=== PATIENT | male | born 1965 | race Two or more races ===

== ENCOUNTER 2023-01-10 17:36 | Emergency (ER) | payer SELFPAY ==
[~2023-01-10] VITALS: Ht 180.3 cm; Wt 112.0 kg
[2023-01-10 18:00] VITALS: PULSE 70; RESP 18; O2SAT 95
[2023-01-10] MEDS ORDERED: LORazepam 2MG/ML-1ML VIAL IV ONE (18:00)
[2023-01-10] MEDS ORDERED: SODIUM CHLORIDE 0.9% 1,000 ML IVB ONE (18:00)
[2023-01-10] MEDS ORDERED: ACETAMINOPHEN 325 MG TAB PO ONE (18:00)
[2023-01-10 18:14] LABS: Basophils # (auto) 0 10 ^3/uL (0-0.2); Basophils % (auto) 0.5 % (0.0-2.0); Eosinophils # (auto) 0.2 10 ^3/uL (0-0.8); Eosinophils % (auto) 1.9 % (0.0-7.0); Hematocrit 31.7 % (41.0-53.0); Hemoglobin 10.5 g/dL (13.5-17.5); Lymphocytes # (auto) 1.6 10 ^3/uL (0.4-5.4); Lymphocytes % (auto) 17.1 % (10.0-50.0); Mean Corpuscular Hemoglobin 31.6 pg (28.0-32.0); Mean Corpuscular Hgb Conc. 33.3 g/dL (32.0-36.0); Mean Corpuscular Volume 94.9 fL (80.0-100.0); Monocytes # (auto) 0.9 10 ^3/uL (0-1.3); Monocytes % (auto) 9.7 % (0.0-12.0); Neutrophils # (auto) 6.5 10 ^3/uL (1.6-8.6); Neutrophils % (auto) 70.8 % (37.0-80.0); Nucleated Red Blood Cells % 0.1 %; Red Blood Cells 3.34 10^6/uL (4.5-5.90); Red Cell Distribution Width 14.5 % (11.8-14.3); White Blood Cell 9.1 10^3/uL (4.4-10.8)
[2023-01-10 18:39] LABS: Blood Alcohol < 3.0 mg/dL (<10)
[2023-01-10 18:41] LABS: Alanine Aminotransferase 16 U/L (7-40); Albumin 4.3 g/dL (3.2-4.8); Alkaline Phosphatase 84 U/L (46-116); Anion Gap 15 (5-15); Aspartate Aminotransferase 20 U/L (13-40); BUN/Creatinine Ratio 5.9 (10.0-20.0); Blood Urea Nitrogen 54 mg/dL (9-23); Calcium 8.7 mg/dL (8.7-10.4); Carbon Dioxide 22 mmol/L (20-30); Chloride 100 mmol/L (98-107); Glucose 110 mg/dL (74-106); Potassium 4.1 mmol/L (3.5-5.1); Sodium 137 mmol/L (136-145)
[2023-01-10 18:42] LABS: Bilirubin, Total 0.3 mg/dL (0.2-1.0); Total Protein 6.7 g/dL (5.7-8.2)
[2023-01-10 19:02] LABS: INR 1.1 (0.9-1.15); Partial Thromboplastin Time 35.9 SEC (24.5-34.5); Prothrombin Time 11.5 sec (9.3-11.8)
[2023-01-10 19:46] VITALS: BP 169/67; PULSE 68; RESP 20; TEMP 98.7; O2SAT 96
[2023-01-10 20:04] VITALS: PULSE 69
[2023-01-10] MEDS ORDERED: HYDROmorphone HCL 2 MG/ML VL/or syr IV ONE (20:15)
[2023-01-10] MEDS ORDERED: HYDROcodone-ACET 5/325MG TAB PO ONE (20:30)
[2023-01-10] MEDS ORDERED: NAPR-746 PO (20:39)
[2023-01-10] MEDS ORDERED: CYCL-611 PO (20:39)
== END 2023-01-10 22:10 | disposition home or self-care (01) ==
LOC: ER 17:36 → EDBD 17:36 → ER 22:05
DX: S22.32XA Fracture of one rib, left side, initial encounter for closed fracture (principal); R56.9 Unspecified convulsions; M25.551 Pain in right hip; E11.22 Type 2 diabetes mellitus with diabetic chronic kidney disease; I12.0 Hypertensive chronic kidney disease with stage 5 chronic kidney disease or end stage renal disease; N18.6 End stage renal disease; I25.2 Old myocardial infarction; J44.9 Chronic obstructive pulmonary disease, unspecified; Z95.1 Presence of aortocoronary bypass graft; Z99.2 Dependence on renal dialysis; W01.0XXA Fall on same level from slipping, tripping and stumbling without subsequent striking against object, initial encounter; Y93.89 Activity, other specified; Y92.89 Other specified places as the place of occurrence of the external cause; Y99.8 Other external cause status
CPT/HCPCS: 36415; 70450; 71250; 73030; 73080; 80053; 80320; 83735; 83880; 84443; 84484; 85025; 85610; 85730; 93005

== ENCOUNTER 2023-09-21 06:50 | Day surgery (SDC) | payer BC, MEDICARE ==
[~2023-09-21] VITALS: Ht 185.4 cm; Wt 107.0 kg
[~2023-09-21 06:50] MED LIST: ALB2.5IS NEB; ALL100T PO; ASPI1TAB20 PO; ATOR40TA52 PO; BUDE1AER6 IN; CALC667C PO; CLOP75TA70 PO; DIA5T GT; GABA-1308 PO; HYDR-4298 PO; INSU1INJ19 SC; ISOS1TAB28 PO; METO200T42 PO; PANT40TA2 PO; RANO500T3 PO; SODI10PA PO; SODI5PAK PO
[2023-09-21] MEDS ORDERED: IODIXANOL 320MG/ML 100ML BTL IV ONE ×3 (07:16→09:44)
[2023-09-21] MEDS ORDERED: HEPARIN IN NS 1000Units/500mL 1,500 ML ONE (07:16)
[2023-09-21] MEDS ORDERED: VERAPAMIL 2.5MG/ML INJ 2ML VIAL IV ONE (09:12)
[2023-09-21] MEDS ORDERED: ANGIOMAX 250 MG VIAL IV ONE (09:12)
[2023-09-21] MEDS ORDERED: fentaNYL CITRATE 100 MCG/2 ML VL ONE (09:12)
[2023-09-21] MEDS ORDERED: HEPARIN SODIUM (PORCINE) 5000 UNITS/ML 1ML VIAL ONE (09:12)
[2023-09-21] MEDS ORDERED: MIDAZOLAM HCL 2MG/2ML 2ml VIAL (1mg/ml) ONE ×2 (09:12→09:41)
[2023-09-21] MEDS ORDERED: SODIUM CHL 0.9% 50 ML ONE (09:12)
[2023-09-21] MEDS ORDERED: LIDOCAINE 2%HCL (LOCAL ANESTH.) INJ 20ML MDV ONE (09:19)
[2023-09-21] MEDS ORDERED: hydrALAZINE HCL 20 MG/ML VL ONE (09:31)
[2023-09-21] MEDS ORDERED: CLOPIDOGREL BISULFATE 75 MG TAB ONE (10:09)
[2023-09-21] MEDS ORDERED: ASPirin 81 mg TAB ONE (10:09)
== END 2023-09-21 12:46 | disposition home or self-care (01) ==
LOC: CATH 06:50
PROVIDERS: ATTEND Internal Medicine
DX: R07.9 Chest pain, unspecified (principal); I25.110 Atherosclerotic heart disease of native coronary artery with unstable angina pectoris; I12.0 Hypertensive chronic kidney disease with stage 5 chronic kidney disease or end stage renal disease; N18.6 End stage renal disease; I35.1 Nonrheumatic aortic (valve) insufficiency; Z79.82 Long term (current) use of aspirin; Z79.899 Other long term (current) drug therapy; Z99.2 Dependence on renal dialysis; Z95.5 Presence of coronary angioplasty implant and graft; Z88.0 Allergy status to penicillin; Z88.7 Allergy status to serum and vaccine; Z83.3 Family history of diabetes mellitus; Z82.49 Family history of ischemic heart disease and other diseases of the circulatory system; Z84.89 Family history of other specified conditions
CPT/HCPCS: 92972; 93458; 93571; C1725; C1769; C1874; C1887; C1894; C9600; J0360; J0583; J1644; J2250; J3010; J7030; Q9967; 99152; 99153

== ENCOUNTER 2024-02-17 11:24 | Inpatient (IN) | payer BC, MEDICARE ==
[~2024-02-17] VITALS: Ht 188 cm; Wt 108.0 kg
[~2024-02-17 11:24] MED LIST changes: -HYDR-4298 PO; +HYDR100T10 PO
[2024-02-17] MEDS: METOPROLOL TARTRATE 1MG/1ML-5ML VIAL IV ONE (11:45)
[2024-02-17 12:05] VITALS: PULSE 65; RESP 97; O2SAT 97
[2024-02-17 12:11] LABS: Basophils # (auto) 0 10 ^3/uL (0-0.2); Basophils % (auto) 0.7 % (0.0-2.0); Eosinophils # (auto) 0.1 10 ^3/uL (0-0.8); Hematocrit 42.5 % (41.0-53.0); Hemoglobin 14.1 g/dL (13.5-17.5); Lymphocytes % (auto) 13.4 % (10.0-50.0); Mean Corpuscular Hemoglobin 32.7 pg (28.0-32.0); Mean Corpuscular Hgb Conc. 33.1 g/dL (32.0-36.0); Mean Corpuscular Volume 98.7 fL (80.0-100.0); Monocytes # (auto) 0.7 10 ^3/uL (0-1.3); Monocytes % (auto) 9.5 % (0.0-12.0); Neutrophils # (auto) 5.6 10 ^3/uL (1.6-8.6); Neutrophils % (auto) 74.4 % (37.0-80.0); Platelet Count (auto) 178 10^3/uL (140-450); Red Blood Cells 4.31 10^6/uL (4.5-5.90); Red Cell Distribution Width 17.2 % (11.8-14.3); White Blood Cell 7.5 10^3/uL (4.4-10.8)
--- NOTE | 2024-02-17 12:12 | DVH ---
CHEST RADIOGRAPH Indication: cp/palpitations, atrial fibrillation, SOB, weakness Technique: Single frontal view of the chest was obtained Comparison: XY CHEST PORTABLE on DOS: 08/13/23 FINDINGS: Lines and Tubes: None Lungs: No focal consolidation. Pleura: No effusion. No pneumothorax. Cardiomediastinal contours: Unremarkable Bones: No acute osseous abnormality. IMPRESSION: 1. No radiographic evidence acute cardiopulmonary disease. HS:Y
[2024-02-17 12:19] LABS: Alanine Aminotransferase 13 U/L (7-40); Albumin 4.6 g/dL (3.2-4.8); Alkaline Phosphatase 88 U/L (46-116); Anion Gap 14 (5-15); Aspartate Aminotransferase 15 U/L (13-40); Calcium 10.2 mg/dL (8.7-10.4); Carbon Dioxide 21 mmol/L (20-31); Glucose 92 mg/dL (74-106)
[2024-02-17 12:20] LABS: Bilirubin, Total 0.4 mg/dL (0.2-1.0); Total Protein 7.4 g/dL (5.7-8.2)
[2024-02-17 12:21] LABS: Chloride 98 mmol/L (98-107); Potassium 5.5 mmol/L (3.5-5.1); Sodium 133 mmol/L (136-145)
[2024-02-17 12:40] LABS: BUN/Creatinine Ratio 4.5 (10.0-20.0)
[2024-02-17 12:41] LABS: Blood Urea Nitrogen 30 mg/dL (9-23)
[2024-02-17 13:00] LABS: Urine Bacteria None Seen /hpf (None Seen)
--- NOTE | 2024-02-17 13:04 | ED.PDOC ---
HPI Comments HPI: Poor Historian. History obtained from patient and EMS. 58-year-old male presents to the emergency department for evaluation of one day history of left-sided chest pain nonradiating that was almost 10/10 at home. Patient has had shortness of breath following his chest pain. Patient has multiple cardiac problems including MIs and stents. Patient is on dialysis. Patient received aspirin and nitroglycerin prior to arrival which improved his pain almost a 2/10 on arrival. Vital signs are otherwise stable VITALS: Temp: 98.1F RR: 18 02 sat : 98% on room air HR: 68 BP: 160/82 PMH: hypertension, DC, hyperlipidemia, Gerd, DM, pseudoseizures, ESRD with dialysis on , , sat, PSH: 7x cardiac stents Social history: endorses tobacco use, denies ETOH use, denies drug use Medications: gabapentin, allopurinol, hydralazine, ASA, nitro, Lipitor, garg toprazole, Lasix, amlodipine, Ranexa, Allergies: penicillins, tetanus toxoid REVIEW OF SYSTEMS: CONSTITUTIONAL: Denies acute: fever, diaphoresis, chills, HEAD: Denies acute: headache, photophobia Eyes: Denies acute: Double vision, vision loss, eye pain, eye discharge. EARS: Denies acute: tinnitus, hearing loss, ear discharge, ear pain, THROAT: Denies acute: sore throat, swelling, difficulty swallowing , pain with swallowing, change in voice. NECK: Denies acute: neck pain, neck swelling, stiff neck. HEART: Denies acute : palpitations, LUNGS: Denies acute: wheezing, cough, hemoptysis ABDOMEN: Denies acute: abdominal pain, Nausea, Vomiting, diarrhea, melena , hematemesis, hematochezia SKIN: Denies acute: rash, redness, lesions, itchiness. EXTREMITIES: Denies acute: calf pain, numbness, tingling, weakness, denies pain in extremity. Denies acute: Low back pain. Neuro: Denies acute: focal neurological deficit, motor or sensory focal neurological deficit, tremors, seizure like activity, confusion, dizziness, change in mental status, loss of bowel or bladder function, cauda equina like symptoms. : Denies acute: dysuria, hematuria, flank pain, increase in urinary frequency. PSYCH: Denies acute: hallucination, suicidal ideation, homicidal ideation. PHYSICAL EXAM: General: no acute distress, awake and alert. Head: normocephalic, atraumatic. Neck: supple, trachea is midline, no swelling. Throat: Normal phonation. Eyes:, no erythema, no purulent discharge, no proptosis, no icterus. Heart: regular rate, regular rhythm, no significant murmur appreciated. Lungs: no apparent respiratory distress, Able to speak in full sentences. No wheezing, no rhonchi, no crackles. No stridors Clear to auscultation bilaterally. Abdomen: non tender to palpation, non distended, soft, no guarding, no rebound, + bowel sounds. Neuro: Awake, Alert, oriented to name, self, situation, follows commands GCS=15. Speech is normal. Skin: no petechia, no purpura, no cyanosis, non-pale, not jaundice. Lower extremities: --2/4 - Pitting edema no deformity, no focal swelling, no calf TTP. Makes eye contact. moves all four extremities. Face: no apparent facial droop. Chief Complaint: Chest Pain Time Seen by MD: 11:30 Primary Care Provider: CARDIO DR FISHER Reviewed Notes: Nurses Notes, Stock Buyer Notes, Medications, Allergies Allergies: Coded Allergies: Penicillins (Verified Allergy, Unknown, 09/19/23) Tetanus Toxoid (Verified Allergy, Unknown, 09/19/23) Home Meds Active Scripts Clopidogrel Bisulfate (CLOPIDOGREL) 75 Mg Tab, 75 MG PO DAILY for 30 Days, #30 TAB Prov:LEÓN COLLINS MD 08/16/23 Reported Medications Isosorbide Mononitrate (Isosorbide Mononitrate Er) 30 Mg Tab, 30 MG PO DAILY for CAD, MG 09/19/23 Insulin Glargine (Basaglar Kwikpen) 100 Unit/Ml Inj, 100 UNIT SC for DIABETES, INJ 09/19/23 Calcium Acetate (Phosphate Bin (Calcium Acetate) 667 Mg Cap, 667 MG PO TIDWM for DIALYSIS, MG 09/19/23 Sodium Zirconium Cyclosilicate (Lokelma) 5 Gm Hernandez, 5 GM PO DAILY for HYPERKALEMIA, PACK 09/19/23 Atorvastatin Calcium (ATORVASTATIN CALCIUM) 40 Mg Tab, 1 TAB PO DAILY for HIGH CHOLESTEROL, #30 TAB 5 Refills 09/19/23 Sqetkayfhf-Smiuiebkvfouhl-Ybuo (Breztri Aerosphere 160-9-4.8 Mcg/Act) 1 Aer Aer, 1 AER IN BID for COPD, AER 09/19/23 Albuterol Sulfate (Ventolin) 2.5 Mg/3 Ml Nb, 2.5 MG NEB Q4HP PRN for SHORTNESS OF BREATH, INH 09/19/23 Ranolazine (Ranolazine ER) 500 Mg Tab, 500 MG PO BID for CAD, TAB 09/19/23 Metoprolol Succinate (Metoprolol Succinate Er) 200 Mg Tab, 1 TAB PO DAILY for HTN 08/16/23 Diazepam (VALIUM TABLET) 5 Mg Tb, 5 MG GT PRN PRN for ANXIETY, TAB 08/14/23 Sodium Zirconium Cyclosilicate (Lokelma) 10 Gm Hernandez, 10 GM PO DAILY, PACK 08/14/23 Hydralazine Hcl (Hydralazine Hcl) 100 Mg Tab, 1 TAB PO TID, #90 TAB 5 Refills 08/14/23 Gabapentin (Gabapentin) 100 Mg Cap, 1 CAP PO TID, #90 CAP 2 Refills 08/14/23 Pantoprazole Sodium Sesquihydr (Protonix) 40 Mg Tab, 40 MG PO QAM, #30 TAB 08/14/23 Aspirin (Aspir-81) 81 Mg Tab, 1 TAB PO QAM, #30 TAB 5 Refills 08/14/23 Allopurinol (ZYLOPRIM TABLET) 100 Mg Tb, 1 TAB PO QAM, #30 TAB 5 Refills 08/14/23 Information Source: Patient, Emergency Med Personnel Mode of Arrival: EMS Past Medical History PAST MEDICAL HISTORY: CHF, ESRD Surgical History: Denies all surgeries Family History Family History: Reviewed,noncontributory to illness, No family hx of Cancer, No family hx of DM, No family hx of Heart [place], No family hx of HTN, No family hx ofKidney [place], No family hx of Liver [place], No family hx of Lung [place], No family hx of Stroke Social History Smoker: Non-Smoker Alcohol: Denies ETOH Use Drugs: Denies Drug Use Lives In: Home Was a procedure done? Was a procedure done?: No X-Ray, Labs, Meds, VS Vital Signs Date Time Temp Pulse Resp B/P (MAP) Pulse Ox O2 Delivery O2 Flow Rate FiO2 02/17/24 14:00 77 14 166/70 (102) 02/17/24 13:41 138/72 02/17/24 13:20 18 99 Room Air* 0 21 02/17/24 12:27 66 02/17/24 12:05 65 97 97 Room Air* 0 21 02/17/24 12:05 65 13 138/72 (94) 97 02/17/24 11:45 65 138/72 02/17/24 11:35 98.1 68 18 160/82 (108) 98 02/17/24 11:24 66 Lab Test 02/17/24 13:10 02/17/24 12:30 02/17/24 11:30 Range/Units Troponin I High Sensitivity 15 17 </=54 ng/L Triglycerides Level 98 < 150 mg/dL Cholesterol Level 159 < 200 mg/dL LDL Cholesterol 61 < 100 mg/dL HDL Cholesterol 77 H 40-59 mg/dL Urine Color Light-yellow Yellow Urine Clarity Clear Clear Urine pH 8.0 5.0-9.0 Urine Specific [place] 1.006 1.001-1.035 Urine Protein 3+ H Negative Urine Ketones Negative Negative Urine Blood Negative Negative /uL Urine Nitrite Negative Negative Urine Bilirubin Negative Negative Urine Urobilinogen Normal Negative mg/dL Urine Leukocyte Esterase Negative Negative /uL Urine RBC None seen 0 - 3 /hpf Urine WBC <1 0 - 3 /hpf Urine Squamous Epithelial Cells Few <5 /hpf Urine Bacteria None seen None Seen /hpf Urine Glucose 2+ H Normal mg/dL White Blood Count 7.5 4.4-10.8 10^3/uL Red Blood Count 4.31 L 4.5-5.90 10^6/uL Hemoglobin 14.1 13.5-17.5 g/dL Hematocrit 42.5 41.0-53.0 % Mean Corpuscular Volume 98.7 80.0-100.0 fL Mean Corpuscular Hemoglobin 32.7 H 28.0-32.0 pg Mean Corpuscular Hemoglobin Concent 33.1 32.0-36.0 g/dL Red Cell Distribution Width 17.2 H 11.8-14.3 % Platelet Count 178 140-450 10^3/uL Mean Platelet Volume 7.8 6.9-10.8 fL Neutrophils (%) (Auto) 74.4 37.0-80.0 % Lymphocytes (%) (Auto) 13.4 10.0-50.0 % Monocytes (%) (Auto) 9.5 0.0-12.0 % Eosinophils (%) (Auto) 2.0 0.0-7.0 % Basophils (%) (Auto) 0.7 0.0-2.0 % Neutrophils # (Auto) 5.6 1.6-8.6 10 ^3/uL Lymphocytes # (Auto) 1.0 0.4-5.4 10 ^3/uL Monocytes # (Auto) 0.7 0-1.3 10 ^3/uL Eosinophils # (Auto) 0.1 0-0.8 10 ^3/uL Basophils # (Auto) 0 0-0.2 10 ^3/uL Nucleated Red Blood Cells 0.0 % Sodium Level 133 L 136-145 mmol/L Potassium Level 5.5 H 3.5-5.1 mmol/L Chloride Level 98 98-107 mmol/L Carbon Dioxide Level 21 20-31 mmol/L Anion Gap 14 5-15 Blood Urea Nitrogen 30 H 9-23 mg/dL Creatinine 6.66 H 0.700-1.30 mg/dL Glomerular Filtration Rate Calc 9 >90 mL/min BUN/Creatinine Ratio 4.5 L 10.0-20.0 Serum Glucose 92 74-106 mg/dL Hemoglobin A1c 5.3 <5.7 % A1C Calcium Level 10.2 8.7-10.4 mg/dL Total Bilirubin 0.4 0.2-1.0 mg/dL Aspartate Amino Transferase (AST) 15 13-40 U/L Alanine Aminotransferase (ALT) 13 7-40 U/L Alkaline Phosphatase 88 46-116 U/L B-Type Natriuretic Peptide 610.56 0-100 pg/mL Total Protein 7.4 5.7-8.2 g/dL Albumin 4.6 3.2-4.8 g/dL Current Medications Medications (Trade) Dose Ordered Sig/Gerard Route Start Time Stop Time Status Last Admin Albuterol (Ventolin Medneb) 20 mg ONCE ONCE NEB 02/17/24 13:15 02/17/24 13:16 DC 02/17/24 13:20 Sodium Bicarbonate 50 ml ONCE ONCE IV 02/17/24 13:15 02/17/24 13:16 DC 02/17/24 13:41 Furosemide (Lasix Injection) 20 mg ONCE ONCE IV 02/17/24 13:15 02/17/24 13:16 DC 02/17/24 13:41 Calcium Gluconate/ Sodium Chloride 50 ml @ 120 mls/hr ONCE ONCE IV 02/17/24 13:15 02/17/24 13:39 DC 02/17/24 13:31 Zirconium Oxide (Lokelma) 10 gm ONCE ONCE PO 02/17/24 13:15 02/17/24 13:16 DC 02/17/24 13:42 Gabapentin (Neurontin Capsule) 100 mg TID PO 02/17/24 14:00 02/17/24 14:27 [place] [id number] Ph: [phone] DIAGNOSTIC IMAGING Diagnostic Imaging Report : [id number] Signed PATIENT: CARLOS KING ACCT: [id number] UNIT: [id number] : 1965 LOC: ER ROOM / BED: / AGE / SEX: 58 / M ADM STATUS: REG ER SERVICE 113 ORDERING PHYSICIAN: JEANNA KENNEDY DO PROCEDURE(s): CXRP - CHEST PORTABLE REASON: cp/palpitations, atrial fibrillation, SOB, weakness ORDER NUMBER(s): [id number], ACCESSION NUMBER(s): [id number] CHEST RADIOGRAPH Indication: cp/palpitations, atrial fibrillation, SOB, weakness Technique: Single frontal view of the chest was obtained Comparison: XY CHEST PORTABLE on DOS: 08/13/23 FINDINGS: Lines and Tubes: None Lungs: No focal consolidation. Pleura: No effusion. No pneumothorax. Cardiomediastinal contours: Unremarkable Bones: No acute osseous abnormality. IMPRESSION: 1. No radiographic evidence acute cardiopulmonary disease. HS:Y ATED BY: STEFFANY VELASCO DO DICTATED DATE/TIME: 02/17/241208 SIGNED BY: STEFFANY VELASCO DO SIGNED DATE/TIME: 02/17/241208 CC: Time of 1ST Reevaluation: 22:18 Reevaluation 1ST: Improved Patient Education/Counseling: Diagnosis, Treatment Family Education/Counseling: Diagnosis, Treatment Additional Information Patient presented with the above HPI.-- chest pain---workup was initiated. patient was found with the above mentioned diagnosis. the following medications were ordered: med Neb treatment, sodium zirconium, calcium gluconate, Lasix, sodium bicarb, albuterol, metoprolol, requested a tivanx for patient's pseudoseizures. While he was shaking he is still having a conversation with the. This is not new for him. the following tests were ordered: troponin 3, chest x-ray, UA, CMP, CBC, BNP, EKG Patient ED course and VS have been stabilized. Patient has been reassessed in the ED and remained in a stable condition. Patient has been observed in the ED adequate length of time to insure improvement/stability. Escalation of care considered: Consideration of escalation to observation or admission. patient was admitted to the medicine team for further evaluation and treatment of their presentation. All the reports of any imaging studies that were ordered by myself were reviewed by myself. Departure 1 Departure Time of Disposition: 13:02 Impression: Primary Impression: Chest pain Disposition: ADMITTED INPATIENT Admit to: Tele Condition: Guarded Discharged With: Self Heart Score Heart Score: Heart Score Response (Comments) Value History Moderate Suspicious 1 Age 45-64 1 Risk Factors >3 or Hx ASHD 2 Troponin Normal limit 0 Total 4 I personally scribed for JEANNA KENNEDY DO ([email or web address]) on 02/17/24 at 13:03. Electronically submitted by Ni Sandhu ([email or web address]). I personally scribed for JEANNA KENNEDY DO ([email or web address]) on 02/17/24 at 15:07. Thu ctronically submitted by Ni Sandhu ([email or web address]). I personally scribed for JEANNA KENNEDY DO ([email or web address]) on 02/17/24 at 22:15. Electronically submitted by Ni Sandhu ([email or web address]). JEANNA KENNEDY DO Feb 17, 2024 13:03
[2024-02-17] MEDS: ALBUTEROL SULF 2.5 MG/0.5ML(0.5%) NEB SOLN NEB ONE (13:20)
[2024-02-17] MEDS: CALCIUM GLUC 1,000mg/50ml-NS 50 ML IV ONE (13:31)
[2024-02-17 13:34] LABS: Urine Blood Negative /uL (Negative); Urine Clarity Clear (Clear); Urine Color Light-Yellow (Yellow); Urine Protein, UAD 3+ (Negative); Urine Specific Gravity 1.006 (1.001-1.035); Urine Urobilinogen Normal (Negative); Urine WBC <1 /hpf (0 - 3)
[2024-02-17] MEDS: FUROSEMIDE 20 MG/2 ML VIAL IV ONE (13:41)
[2024-02-17] MEDS: SODIUM BICARB 8.4% 50Meq/50ml SYR INJ IV ONE (13:41)
[2024-02-17] MEDS: SODIUM ZIRCONIUM CYCL 10 GM PAK PO ONE (13:42)
[2024-02-17] MEDS ORDERED: MORPHINE SULFATE INJ 2 MG/ml SYRG IV PRN (14:15)
[2024-02-17] MEDS ORDERED: MORPHINE SULFATE 4 MG/ML SYR/VIAL IV PRN (14:15)
[2024-02-17] MEDS ORDERED: DEXTROSE (50%) 50ML SYRG IV PRN (14:15)
[2024-02-17] MEDS ORDERED: NITROGLYCERIN 0.4 MG SL TAB SL PRN (14:15)
[2024-02-17] MEDS ORDERED: ONDANSETRON HCL 4 MG/2 ML VIAL IV PRN (14:15)
[2024-02-17] MEDS: LORazepam 2MG/ML-1ML VIAL IV ONE ×2 (14:24→20:34)
[2024-02-17] MEDS: LORazepam 2MG/ML-1ML VIAL ONE ×2 (14:25→19:57)
[2024-02-17] MEDS: GABAPENTIN 100 MG CAP PO SCH (14:27)
[2024-02-17 14:46] LABS: Triglycerides 98 mg/dL (< 150)
[2024-02-17 14:47] LABS: LDL Cholesterol 61 mg/dL (< 100)
[2024-02-17 14:48] LABS: Cholesterol 159 mg/dL (< 200)
[2024-02-17 14:58] LABS: HDL Cholesterol 77 mg/dL (40-59)
[2024-02-17 15:01] VITALS: BP 166/70; PULSE 65; RESP 18; O2SAT 99
--- NOTE | 2024-02-17 16:07 | DVHHP2 ---
History of Present Illness Reason for Visit: Chest pain History of Present Illness Poor Historian. History obtained from patient and EMS. 58-year-old male presents to the emergency department for evaluation of one day history of left-sided chest pain nonradiating that was almost 10/10 at home. Patient has had shortness of breath following his chest pain. Patient has multiple cardiac problems including MIs and stents. Patient is on dialysis. Patient received aspirin and nitroglycerin prior to arrival which improved his pain almost a 2/10 on arrival. Vital signs are otherwise stable. His is at bedside and tells me that he also has pseudoseizures. He has been having pseudoseizures on and off for last few days. Patient having some chest discomfort for few days. Past Medical History hypertension, UT, hyperlipidemia, Gerd, DM, pseudoseizures, ESRD with dialysis on , , tue, Past Surgical History cardiac stents Family History: Hyperlipidemia, Hypertension Smoke: No ALCOHOL: occassional Lives: with Family Review of Systems Review of Systems No complaints of chest pain or shortness for breath at present. No fevers chills or sweats. Other review of systems reviewed normal Allergies: Coded Allergies: Penicillins (Verified Allergy, Unknown, 09/19/23) Tetanus Toxoid (Verified Allergy, Unknown, 09/19/23) Medications Current Medications Medications Dose Ordered Sig/Gerard Route Start Time Stop Time Status Last Admin Dose Admin Allopurinol 100 mg QAM PO 02/18/24 07:00 Aspirin 81 mg QAM PO 02/18/24 07:00 Calcium Acetate 667 mg TIDWM PO 02/17/24 18:00 Clopidogrel Bisulfate 75 mg DAILY PO 02/18/24 10:00 Gabapentin 100 mg TID PO 02/17/24 14:00 02/17/24 14:27 100 MG Pantoprazole Sodium 40 mg QAM PO 02/18/24 07:00 Ranolazine 500 mg BID PO 02/17/24 22:00 Zirconium Oxide 5 gm DAILY PO 02/18/24 10:00 Albuterol 2.5 mg Q4HP PRN NEB 02/17/24 14:45 Atorvastatin Calcium 40 mg HS PO 02/17/24 22:00 Isosorbide Mononitrate 60 mg DAILY PO 02/18/24 10:00 Nitroglycerin 0.4 mg Q5MINP PRN SL 02/17/24 14:15 Morphine Sulfate 2 mg Q30M PRN IV 02/17/24 14:15 Enoxaparin Sodium 30 mg DAILY SC 02/18/24 10:00 Morphine Sulfate 3 mg Q3HPRN PRN IV 02/17/24 14:15 Morphine Sulfate 2 mg Q4HPRN PRN IV 02/17/24 14:15 Ondansetron HCl 4 mg Q4HPRN PRN IV 02/17/24 14:15 Diagnostic Test (Pha) 1 strip ACHS 02/17/24 17:00 Insulin Human Regular HS SC 02/17/24 22:00 Insulin Human Regular AC SC 02/17/24 17:00 Dextrose 50 ml UD PRN IV 02/17/24 14:15 Insulin Glargine 15 units HS SC 02/17/24 22:00 Exam Vital Signs Vital Signs Date Time Temp Pulse Resp B/P (MAP) Pulse Ox O2 Delivery O2 Flow Rate FiO2 02/17/24 15:01 65 18 166/70 99 0.0 02/17/24 13:20 Room Air* 21 02/17/24 11:35 98.1 Exam Comfortable in bed. at bedside Alert awake oriented x2. HEENT neck supple no JVD pupils equal round react to light. Heart regular rate and rhythm S1 plus S2 without murmurs. Lungs fair air movement chest tube will expansion no rales wheezes. Abdomen is soft nontender nondistended positive bowel sounds. Extremities no edema positive distal pedal pulses. Neurologically no focal deficits noted Labs/Xrays Labs Test 02/17/24 14:40 02/17/24 13:10 02/17/24 12:30 02/17/24 11:30 Range/Units Troponin I High Sensitivity 15 </=54 ng/L Triglycerides Level 98 < 150 mg/dL Cholesterol Level 159 < 200 mg/dL LDL Cholesterol 61 < 100 mg/dL HDL Cholesterol 77 H 40-59 mg/dL Urine Color Light-yellow Yellow Urine Clarity Clear Clear Urine pH 8.0 5.0-9.0 Urine Specific [place] 1.006 1.001-1.035 Urine Protein 3+ H Negative Urine Ketones Negative Negative Urine Blood Negative Negative /uL Urine Nitrite Negative Negative Urine Bilirubin Negative Negative Urine Urobilinogen Normal Negative mg/dL Urine Leukocyte Esterase Negative Negative /uL Urine RBC None seen 0 - 3 /hpf Urine WBC <1 0 - 3 /hpf Urine Squamous Epithelial Cells Few <5 /hpf Urine Bacteria None seen None Seen /hpf Urine Glucose 2+ H Normal mg/dL White Blood Count 7.5 4.4-10.8 10^3/uL Red Blood Count 4.31 L 4.5-5.90 10^6/uL Hemoglobin 14.1 13.5-17.5 g/dL Hematocrit 42.5 41.0-53.0 % Mean Corpuscular Volume 98.7 80.0-100.0 fL Mean Corpuscular Hemoglobin 32.7 H 28.0-32.0 pg Mean Corpuscular Hemoglobin Concent 33.1 32.0-36.0 g/dL Red Cell Distribution Width 17.2 H 11.8-14.3 % Platelet Count 178 140-450 10^3/uL Mean Platelet Volume 7.8 6.9-10.8 fL Neutrophils (%) (Auto) 74.4 37.0-80.0 % Lymphocytes (%) (Auto) 13.4 10.0-50.0 % Monocytes (%) (Auto) 9.5 0.0-12.0 % Eosinophils (%) (Auto) 2.0 0.0-7.0 % Basophils (%) (Auto) 0.7 0.0-2.0 % Neutrophils # (Auto) 5.6 1.6-8.6 10 ^3/uL Lymphocytes # (Auto) 1.0 0.4-5.4 10 ^3/uL Monocytes # (Auto) 0.7 0-1.3 10 ^3/uL Eosinophils # (Auto) 0.1 0-0.8 10 ^3/uL Basophils # (Auto) 0 0-0.2 10 ^3/uL Nucleated Red Blood Cells 0.0 % Sodium Level 133 L 136-145 mmol/L Potassium Level 5.5 H 3.5-5.1 mmol/L Chloride Level 98 98-107 mmol/L Carbon Dioxide Level 21 20-31 mmol/L Anion Gap 14 5-15 Blood Urea Nitrogen 30 H 9-23 mg/dL Creatinine 6.66 H 0.700-1.30 mg/dL Glomerular Filtration Rate Calc 9 >90 mL/min BUN/Creatinine Ratio 4.5 L 10.0-20.0 Serum Glucose 92 74-106 mg/dL Hemoglobin A1c 5.3 <5.7 % A1C Calcium Level 10.2 8.7-10.4 mg/dL Total Bilirubin 0.4 0.2-1.0 mg/dL Aspartate Amino Transferase (AST) 15 13-40 U/L Alanine Aminotransferase (ALT) 13 7-40 U/L Alkaline Phosphatase 88 46-116 U/L B-Type Natriuretic Peptide 610.56 0-100 pg/mL Total Protein 7.4 5.7-8.2 g/dL Albumin 4.6 3.2-4.8 g/dL Assessment/Plan Assessment/Plan Chest pain, ESRD on hemodialysis Given his risk factors with the multiple stents who observed overnight on telemetry floor. 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 Serial troponins. Resume his home medications. Please nephrology consultation for dialysis. Otherwise continue rest of supportive care and treatment. Resume home medications including glaucoma. Further clinical management per clinical course and recommendations from the screen printing press operator. Discussed with the patient's/ regarding care plan at bedside. Plan discussed with: Patient, Spouse My Orders Orders - ENDY CORTÉS MD Procedure Category Date Status Time Allopurinol Tablet PHA 02/18/24 In Process (Zyloprim Tablet) 07:00 Aspirin Enteric PHA 02/18/24 In Process Coated Tablet 07:00 Calcium Acetate PHA 02/17/24 In Process Capsule (Phoslo 18:00 Clopidogrel Bisulfate PHA 02/18/24 In Process (Plavix) 10:00 Gabapentin Capsule PHA 02/17/24 In Process (Neurontin Capsule) 14:00 Pantoprazole Tablet PHA 02/18/24 In Process (Protonix Tablet) 07:00 Ranolazine (Ranexa Er) PHA 02/17/24 In Process 22:00 Sodium Zirconium PHA 02/18/24 In Process Cyclosilicate 10:00 Albuterol Medneb PHA 02/17/24 In Process (Ventolin Medneb) 14:45 Isosorbide PHA 02/18/24 In Process Mononitrate Tablet 10:00 Admit ADMIT 02/17/24 Transmitted 14:01 Consistent DIET 02/17/24 Transmitted Carb(Ccho)Diabetes Dinner * Cardiology Consult CONS 02/17/24 Transmitted 14:01 Nitroglycerin PHA 02/17/24 In Process Sublingual (Ntrostat 14:15 Morphine Sulfate PHA 02/17/24 In Process Injection 14:15 Stat Ekg For Chest SEAN 02/17/24 In Process Pain 14:01 Notify Of Changes SEAN 02/17/24 In Process From Base 14:01 Locker Attendant For SEAN 02/17/24 In Process 24 Hours 14:01 Emergency Dysrhythmia SEAN 02/17/24 In Process Protocol 14:01 Rhythm Strips Once SEAN 02/17/24 In Process Every Shift 14:01 Oxygen By Nasal RT 02/17/24 Transmitted Cannula 14:01 Morphine Sulfate PHA 02/17/24 In Process Injection 14:15 Morphine Sulfate PHA 02/17/24 In Process Injection 14:15 Ondansetron Hcl PHA 02/17/24 In Process (Zofran) 14:15 Glucose Blood PHA 02/17/24 In Process (Accu-Chek Comfort 17:00 Insulin R (Human) PHA 02/17/24 In Process (Insulin R) 22:00 Insulin R (Human) PHA 02/17/24 In Process (Insulin R) 17:00 Dextrose 50% Syringe PHA 02/17/24 In Process 14:15 Insulin Lantus PHA 02/17/24 In Process (Glargine) (Lantus) 22:00 Lipoprotein (A) LAB 02/17/24 In Process 14:01 Enoxaparin Sodium PHA 02/18/24 In Process (Lovenox) 10:00 Atorvastatin (Lipitor) PHA 02/17/24 In Process 22:00 Problem List: (1) Elevated troponin (2) End stage renal disease on dialysis (3) Acute exacerbation of CHF (congestive heart failure) ENDY CORTÉS MD Feb 17, 2024 16:06
[2024-02-17] MEDS: MORPHINE SULFATE INJ 2 MG/ml SYRG IV PRN (16:11)
[2024-02-17] MEDS: InsuLIN REG 1unit/0.01ml Soln (100units/ml) SC SCH ×2 (17:00→23:01)
[2024-02-17] MEDS: ACCU-CHEK COMFORT CURVE STRIP VI SCH (17:21)
[2024-02-17] MEDS: CALCIUM ACETATE 667 MG CAP PO SCH (18:07)
--- NOTE | 2024-02-17 18:08 | DVHINCON2 ---
DATE OF CONSULTATION: 02/17/2024 HISTORY OF PRESENT ILLNESS: A 58-year-old gentleman with a previous history of coronary artery disease, comes in with recurrent chest pain and shortness of breath. He was noted to have significant ST segment changes in the inferior lateral leads. Possibly with an acute coronary syndrome. Cardiac evaluation was requested. He does have a history of hypertension, myocardial infarction, pseudoseizures, gastric reflux, diabetes mellitus, end-stage renal disease, on dialysis on Tuesdays, and Saturdays. FAMILY HISTORY: Significant for hyperlipidemia and hypertension. REVIEW OF SYSTEMS: CONSTITUTIONAL: From a constitutional standpoint, otherwise noncontributory. ENT: Negative. CARDIAC AND RESPIRATORY: As noted above. GASTROINTESTINAL, GENITOURINARY, MUSCULOSKELETAL, HEMATOLOGIC AND ONCOLOGIC: Negative. PHYSICAL EXAMINATION: GENERAL: He is awake and responsive. He is with his . VITAL SIGNS: His blood pressure is 141/64, respiratory rate 14, pulse of 92. HEENT: Reveals an atraumatic and normocephalic skull. His pupils are equally reactive. Orally well hydrated. Trachea central. NECK: Supple. Thyroid is not palpable. No jugular venous distention, no bruits. LUNGS: Reveal good air entry. No rales or rhonchi. HEART: Reveals regular S1, S2, soft S4. ABDOMEN: Unremarkable. EXTREMITIES: Reveal adequate perfusion without clubbing or cyanosis, no edema. NEUROLOGIC: Intact. INTEGUMENTARY: Normal. LABORATORY DATA: Natriuretic peptide is 610. Troponins are thus far negative, no indication of myocardial injury. Chemistry panel shows a potassium of 5.5, sodium of 133. Creatinine is 6.6. Hematologically stable with WBC count 7000, hematocrit is 42. Chest x-ray shows no significant abnormalities. EKG shows nonspecific changes. However, there are inferior lateral ST segment depression suggesting progressing ischemia. No acute ST-elevation [place] noted. IMPRESSION: Acute coronary syndrome. Recurrent chest pain with ST segment changes suggesting progression of CAD. Pseudoseizures. Hypertension. Chronic kidney disease. RECOMMENDATIONS: Given the above, I will schedule the patient for cardiac catheterization on Tuesday. Aquiles Hobbs MD [place] TID: [id number] RECEIPT: [id number]
--- NOTE | 2024-02-17 18:56 | ECG ---
[facility] Test Date: 2024-02-17 Test Time: 11:22:53 Pat Name: CARLOS KING Department: ED Room: [address] [place] [address] Gender: M Phlebotomy Services Representative: ADI : 1965 Requested By: JEANNA KENNEDY Order Number: [id number] Reading MD: Measurements Intervals [place] Rate: 66 P: 46 RI: 179 QRS: 82 QRSD: 140 T: 78 QT: 439 QTc: 460 Interpretive Statements Sinus rhythm Ventricular premature complex Nonspecific intraventricular conduction delay Probable anteroseptal infarct, recent Please click the below link to view image of tracing.
--- NOTE | 2024-02-17 18:57 | ECG ---
[facility] Test Date: 2024-02-17 Test Time: 12:27:04 Pat Name: CARLOS KING Department: ED Room: [address] [place] [address] Gender: M Volumetric Weigher: ADI : 1965 Requested By: JEANNA KENNEDY Order Number: [id number] Reading MD: Measurements Intervals [place] Rate: 66 P: 54 NM: 175 QRS: 86 QRSD: 124 T: 78 QT: 454 QTc: 476 Interpretive Statements Sinus rhythm Nonspecific intraventricular conduction delay Borderline ST elevation, anterior leads Baseline wander in lead(s) V1 Please click the below link to view image of tracing.
--- NOTE | 2024-02-17 18:57 | ECG ---
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
[2024-02-17 19:31] VITALS: PULSE 81; RESP 12; O2SAT 94
[2024-02-17 20:15] VITALS: O2SAT 93
[2024-02-17 23:00] VITALS: PULSE 79; RESP 12; O2SAT 95
[2024-02-17] MEDS: ATORVASTATIN 20 MG TAB PO SCH (23:00)
[2024-02-17] MEDS: RANOLAZINE ER 500 MG TAB PO SCH (23:01)
[2024-02-17] MEDS: INSULIN LANTUS (GLARGINE) 1 /0.01ml (100units/ml) SC SCH (23:08)
[2024-02-17 23:17] LABS: Urine Bacteria None Seen /hpf (None Seen)
[2024-02-18] VITALS (14 sets, daily range): BP systolic 143–195; BP diastolic 73–88; PULSE 73–88; RESP 15–20; TEMP 97.3–98.4; O2SAT 93–100
[2024-02-18 00:03] LABS: Urine Blood Negative /uL (Negative); Urine Clarity Clear (Clear); Urine Color Light-Yellow (Yellow); Urine Hyaline Cast FEW /lpf (0 - 2); Urine Protein, UAD 3+ (Negative); Urine Specific Gravity 1.007 (1.001-1.035); Urine Urobilinogen Normal (Negative); Urine WBC <1 /hpf (0 - 3)
[2024-02-18] MEDS: hydrALAZINE HCL 20 MG/ML VL IV PRN (03:09)
[2024-02-18] MEDS: LORazepam 2MG/ML-1ML VIAL IV PRN (05:38)
[2024-02-18] MEDS: ALLOPURINOL 100 MG TAB PO SCH (08:30)
[2024-02-18] MEDS: ASPirin-EC 81 mg tab PO SCH (08:30)
[2024-02-18] MEDS: PANTOPRAZOLE 40 MG TAB PO SCH (08:30)
[2024-02-18] MEDS: CLOPIDOGREL BISULFATE 75 MG TAB PO SCH (08:31)
[2024-02-18] MEDS: ISOSORBIDE MONONITRATE ER 60 MG TAB PO SCH (08:42)
[2024-02-18] MEDS: SODIUM ZIRCONIUM CYCL 10 GM PAK PO SCH ×2 (08:43→21:19)
[2024-02-18] MEDS: ENOXAPARIN SOD 30 MG/0.3 ML SYRINGE SC SCH (08:43)
[2024-02-18 10:36] LABS: Basophils # (auto) 0.1 10 ^3/uL (0-0.2); Basophils % (auto) 0.8 % (0.0-2.0); Eosinophils # (auto) 0.2 10 ^3/uL (0-0.8); Eosinophils % (auto) 2.2 % (0.0-7.0); Hematocrit 38.8 % (41.0-53.0); Hemoglobin 12.9 g/dL (13.5-17.5); Lymphocytes # (auto) 1.2 10 ^3/uL (0.4-5.4); Mean Corpuscular Hemoglobin 32.6 pg (28.0-32.0); Mean Corpuscular Hgb Conc. 33.2 g/dL (32.0-36.0); Mean Corpuscular Volume 98.3 fL (80.0-100.0); Monocytes # (auto) 0.7 10 ^3/uL (0-1.3); Monocytes % (auto) 9.7 % (0.0-12.0); Neutrophils # (auto) 5.2 10 ^3/uL (1.6-8.6); Neutrophils % (auto) 70.3 % (37.0-80.0); Nucleated Red Blood Cells % 0.1 %; Platelet Count (auto) 163 10^3/uL (140-450); Red Blood Cells 3.95 10^6/uL (4.5-5.90); Red Cell Distribution Width 16.8 % (11.8-14.3); White Blood Cell 7.3 10^3/uL (4.4-10.8)
[2024-02-18 10:47] LABS: Chloride 99 mmol/L (98-107); Sodium 137 mmol/L (136-145)
[2024-02-18 10:48] LABS: Anion Gap 11 (5-15); Carbon Dioxide 27 mmol/L (20-31)
[2024-02-18 10:49] LABS: Calcium 9.9 mg/dL (8.7-10.4)
[2024-02-18 10:53] LABS: BUN/Creatinine Ratio 5.1 (10.0-20.0)
[2024-02-18 10:59] LABS: Blood Urea Nitrogen 46 mg/dL (9-23); Glucose 134 mg/dL (74-106); Potassium 5.2 mmol/L (3.5-5.1)
[2024-02-18] MEDS: NICOTINE 21MG/24 HR TOPICAL PATCH TD SCH (13:53)
[2024-02-18] MEDS: diazePAM 5 MG TAB PO SCH (13:53)
[2024-02-18] MEDS: hydrALAZINE HCL 25 MG TAB PO SCH (14:03)
--- NOTE | 2024-02-18 17:22 | DVHPN2 ---
Progress Note - Dictate Date Seen: Feb 18, 2024 Medical Necessity Reason Pt with a Central, PICC or Fol: No Subjective He is clinically stable. No complaints of chest pain she. Mentation is normal. Evaluated by location analyst and scheduled for coronary angiogram for Tuesday. vital signs Vital Sign Date Time Temp Pulse Resp B/P (MAP) Pulse Ox O2 Delivery O2 Flow Rate FiO2 02/18/24 17:00 97.7 77 18 160/76 (104) 93 97.7 02/18/24 08:10 Room Air* 0 21 Total Intake and Output 02/17/24 02/17/24 02/18/24 15:00 23:00 07:00 Intake Total 0 ml Balance 0 ml medications Current Medications Medications Dose Ordered Sig/Gerard Route Start Time Stop Time Status Last Admin Dose Admin Allopurinol 100 mg QAM PO 02/18/24 07:00 02/18/24 08:30 100 MG Aspirin 81 mg QAM PO 02/18/24 07:00 02/18/24 08:30 81 MG Calcium Acetate 667 mg TIDWM PO 02/17/24 18:00 02/18/24 12:00 667 MG Clopidogrel Bisulfate 75 mg DAILY PO 02/18/24 10:00 02/18/24 08:31 75 MG Gabapentin 100 mg TID PO 02/17/24 14:00 02/18/24 14:04 100 MG Pantoprazole Sodium 40 mg QAM PO 02/18/24 07:00 02/18/24 08:30 40 MG Ranolazine 500 mg BID PO 02/17/24 22:00 02/18/24 08:30 500 MG Albuterol 2.5 mg Q4HP PRN NEB 02/17/24 14:45 Atorvastatin Calcium 40 mg HS PO 02/17/24 22:00 02/17/24 23:00 40 MG Isosorbide Mononitrate 60 mg DAILY PO 02/18/24 10:00 Nitroglycerin 0.4 mg Q5MINP PRN SL 02/17/24 14:15 Morphine Sulfate 2 mg Q30M PRN IV 02/17/24 14:15 Enoxaparin Sodium 30 mg DAILY SC 02/18/24 10:00 02/18/24 08:43 30 MG Morphine Sulfate 3 mg Q3HPRN PRN IV 02/17/24 14:15 Morphine Sulfate 2 mg Q4HPRN PRN IV 02/17/24 14:15 02/17/24 16:11 2 MG Ondansetron HCl 4 mg Q4HPRN PRN IV 02/17/24 14:15 Diagnostic Test (Pha) 1 strip ACHS 02/17/24 17:00 02/18/24 16:39 1 STRIP Insulin Human Regular HS SC 02/17/24 22:00 Insulin Human Regular AC SC 02/17/24 17:00 02/18/24 08:42 6 UNITS Dextrose 50 ml UD PRN IV 02/17/24 14:15 Insulin Glargine 15 units HS SC 02/17/24 22:00 Lorazepam 1 mg Q4HP PRN IV 02/17/24 19:55 02/18/24 11:49 1 MG Hydralazine HCl 10 mg Q6HP PRN IV 02/17/24 23:15 02/18/24 12:48 10 MG Zirconium Oxide 5 gm BID PO 02/18/24 22:00 Hydralazine HCl 50 mg Q8HR PO 02/18/24 14:00 02/18/24 14:03 50 MG Metoprolol Tartrate 25 mg BID PO 02/18/24 22:00 Clonidine HCl 0.1 mg Q4HP PRN PO 02/18/24 12:30 Diazepam 5 mg BID PO 02/18/24 13:15 02/18/24 13:53 5 MG Nicotine 1 patch DAILY TD 02/18/24 13:15 02/18/24 13:53 1 PATCH objective Comfortable in bed without distress. HEENT neck supple no JVD. Heart regular rate and rhythm S1 and S2. Lungs without rales wheezes. Abdomen soft nontender positive bowel sounds. Extremities positive pulses. laboratory and microbiology Laboratory Tests 02/18/24 10:21 Test 02/18/24 10:21 Range/Units Serum Glucose 134 H 74-106 mg/dL Assessment/Plan Continue current supportive care and treatment. Patient wants his Valium he takes for pseudoseizures at home. We will resume this. Continue rest of supportive care and treatment. Adjust his blood pressure meds. Otherwise follow clinical management per clinical course. Discussed with the nurse and patient regarding care plan. Problems(with codes): (1) Elevated troponin (2) End stage renal disease on dialysis (3) Acute exacerbation of CHF (congestive heart failure) (4) Chest pain Plan discussed with: Patient, Other ENDY CORTÉS MD Feb 18, 2024 17:22
[2024-02-18] MEDS: ALBUTEROL SULF 2.5 MG/0.5ML(0.5%) NEB SOLN NEB PRN (18:38)
[2024-02-18] MEDS: METOPROLOL TARTRATE 25 MG TAB PO SCH (20:25)
[2024-02-18] MEDS ORDERED: diazePAM 5 MG TAB PO SCH (22:00)
[2024-02-19] VITALS (9 sets, daily range): BP systolic 152–190; BP diastolic 64–85; PULSE 67–82; RESP 15–18; TEMP 97.5–97.8; O2SAT 95–97
[2024-02-19] MEDS: cloNIDine HCL 0.1 MG TAB PO PRN (00:33)
[2024-02-19 06:55] LABS: Alanine Aminotransferase 11 U/L (7-40); Alkaline Phosphatase 74 U/L (46-116); Anion Gap 11 (5-15); BUN/Creatinine Ratio 5.3 (10.0-20.0); Calcium 9.5 mg/dL (8.7-10.4); Carbon Dioxide 24 mmol/L (20-31); Glucose 91 mg/dL (74-106)
[2024-02-19 06:56] LABS: Bilirubin, Total 0.3 mg/dL (0.2-1.0); Total Protein 6.3 g/dL (5.7-8.2)
[2024-02-19 07:04] LABS: Sodium 133 mmol/L (136-145)
[2024-02-19 07:07] LABS: Aspartate Aminotransferase 12 U/L (13-40); Blood Urea Nitrogen 52 mg/dL (9-23); Chloride 98 mmol/L (98-107); Potassium 5.8 mmol/L (3.5-5.1)
[2024-02-19] MEDS ORDERED: NICOTINE 21MG/24 HR TOPICAL PATCH TD SCH (10:00)
[2024-02-19] MEDS ORDERED: SODIUM CHL 0.9% 1000 ML BAG XX ONE (13:30)
--- NOTE | 2024-02-19 13:55 | DVHINCON2 ---
Date of service: Feb 19, [address] Perera Reason for Consultation ESRD History of Present Illness This is a 58-year-old male with history of end-stage kidney disease on hemodialysis, coronary artery disease status post PCI, hypertension, hyperlipidemia, diabetes, pseudoseizures presenting to the emergency room because of chest pain associated with shortness of breath. Evaluated by Cardiology. Patient is scheduled for left heart catheterization on Tuesday. Nephrology consulted for continuation of dialysis. Patient's last dialysis was on . Patient noted to be hyperkalemic today. Past Medical History As stated above Past Surgical History Status post PCI Family History: Diabetes mellitus G8 MOTHER, Onset:Unknown G8 FATHER, Onset:Unknown Hypertension G8 FATHER, Onset:Unknown Social History Occasional history of alcohol use Allergies: Coded Allergies: Penicillins (Verified Allergy, Unknown, 09/19/23) Tetanus Toxoid (Verified Allergy, Unknown, 09/19/23) Home Meds Active Scripts Clopidogrel Bisulfate (CLOPIDOGREL) 75 Mg Tab, 75 MG PO DAILY for 30 Days, #30 TAB Prov:LEÓN COLLINS MD 08/16/23 Reported Medications Isosorbide Mononitrate (Isosorbide Mononitrate Er) 30 Mg Tab, 30 MG PO DAILY for CAD, MG 09/19/23 Insulin Glargine (Basaglar Kwikpen) 100 Unit/Ml Inj, 100 UNIT SC for DIABETES, INJ 09/19/23 Calcium Acetate (Phosphate Bin (Calcium Acetate) 667 Mg Cap, 667 MG PO TIDWM for DIALYSIS, MG 09/19/23 Sodium Zirconium Cyclosilicate (Lokelma) 5 Gm Hernandez, 5 GM PO DAILY for HYPERKALEMIA, PACK 09/19/23 Atorvastatin Calcium (ATORVASTATIN CALCIUM) 40 Mg Tab, 1 TAB PO DAILY for HIGH CHOLESTEROL, #30 TAB 5 Refills 09/19/23 Cqoihruwtk-Lnlpobmhpjjfdp-Pknm (Breztri Aerosphere 160-9-4.8 Mcg/Act) 1 Aer Aer, 1 AER IN BID for COPD, AER 09/19/23 Albuterol Sulfate (Ventolin) 2.5 Mg/3 Ml Nb, 2.5 MG NEB Q4HP PRN for SHORTNESS OF BREATH, INH 09/19/23 Ranolazine (Ranolazine ER) 500 Mg Tab, 500 MG PO BID for CAD, TAB 09/19/23 Metoprolol Succinate (Metoprolol Succinate Er) 200 Mg Tab, 1 TAB PO DAILY for HTN 08/16/23 Diazepam (VALIUM TABLET) 5 Mg Tb, 5 MG GT PRN PRN for ANXIETY, TAB 08/14/23 Sodium Zirconium Cyclosilicate (Lokelma) 10 Gm Hernandez, 10 GM PO DAILY, PACK 08/14/23 Hydralazine Hcl (Hydralazine Hcl) 100 Mg Tab, 1 TAB PO TID, #90 TAB 5 Refills 08/14/23 Gabapentin (Gabapentin) 100 Mg Cap, 1 CAP PO TID, #90 CAP 2 Refills 08/14/23 Pantoprazole Sodium Sesquihydr (Protonix) 40 Mg Tab, 40 MG PO QAM, #30 TAB 08/14/23 Aspirin (Aspir-81) 81 Mg Tab, 1 TAB PO QAM, #30 TAB 5 Refills 08/14/23 Allopurinol (ZYLOPRIM TABLET) 100 Mg Tb, 1 TAB PO QAM, #30 TAB 5 Refills 08/14/23 Current Medications Current Medications Medications (Trade) Dose Ordered Sig/Gerard Route PRN Reason Start Time Stop Time Status Last Admin Zirconium Oxide (Lokelma) 5 gm BID PO 02/18/24 22:00 02/19/24 10:23 Hydralazine HCl (Apresoline Tablet) 50 mg Q8HR PO 02/18/24 14:00 02/19/24 06:04 Metoprolol Tartrate (Lopressor Tablet) 25 mg BID PO 02/18/24 22:00 02/19/24 10:22 Nicotine (Nicoderm 21MG/ 24HR) 1 patch DAILY TD 02/19/24 10:00 02/18/24 13:03 DC Diazepam (Valium Tablet) 5 mg BID PO 02/18/24 22:00 02/18/24 13:03 DC Review of Systems 12 point review of systems negative except as stated in HPI Vital Signs Vital Signs Date Time Temp Pulse Resp B/P (MAP) Pulse Ox O2 Delivery O2 Flow Rate FiO2 02/19/24 12:58 97.6 67 17 161/71 (101) 95 97.6 02/19/24 08:57 Room Air 0.0 02/19/24 08:57 21 Physical Exam Awake alert oriented x3 HEENT: Normocephalic, no JVD Lungs: Bilateral good air entry CVS: S1, S2 regular rate rhythm Abdomen: Soft, bowel sounds present 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 Extremities no edema Labs/Diagnostic Data Labs Test 02/19/24 11:57 02/19/24 06:00 02/18/24 10:21 02/17/24 22:45 Range/Units POC Glucose 161 H 70-106 mg/dl Sodium Level 133 L 136-145 mmol/L Potassium Level 5.8 *H 3.5-5.1 mmol/L Chloride Level 98 98-107 mmol/L Carbon Dioxide Level 24 20-31 mmol/L Anion Gap 11 5-15 Blood Urea Nitrogen 52 H 9-23 mg/dL Creatinine 9.73 H 0.700-1.30 mg/dL Glomerular Filtration Rate Calc 6 >90 mL/min BUN/Creatinine Ratio 5.3 L 10.0-20.0 Serum Glucose 91 74-106 mg/dL Calcium Level 9.5 8.7-10.4 mg/dL Total Bilirubin 0.3 0.2-1.0 mg/dL Aspartate Amino Transferase (AST) 12 L 13-40 U/L Alanine Aminotransferase (ALT) 11 7-40 U/L Alkaline Phosphatase 74 46-116 U/L Total Protein 6.3 5.7-8.2 g/dL Albumin 4.0 3.2-4.8 g/dL White Blood Count 7.3 4.4-10.8 10^3/uL Red Blood Count 3.95 L 4.5-5.90 10^6/uL Hemoglobin 12.9 L 13.5-17.5 g/dL Hematocrit 38.8 L 41.0-53.0 % Mean Corpuscular Volume 98.3 80.0-100.0 fL Mean Corpuscular Hemoglobin 32.6 H 28.0-32.0 pg Mean Corpuscular Hemoglobin Concent 33.2 32.0-36.0 g/dL Red Cell Distribution Width 16.8 H 11.8-14.3 % Platelet Count 163 140-450 10^3/uL Mean Platelet Volume 7.4 6.9-10.8 fL Neutrophils (%) (Auto) 70.3 37.0-80.0 % Lymphocytes (%) (Auto) 17.0 10.0-50.0 % Monocytes (%) (Auto) 9.7 0.0-12.0 % Eosinophils (%) (Auto) 2.2 0.0-7.0 % Basophils (%) (Auto) 0.8 0.0-2.0 % Neutrophils # (Auto) 5.2 1.6-8.6 10 ^3/uL Lymphocytes # (Auto) 1.2 0.4-5.4 10 ^3/uL Monocytes # (Auto) 0.7 0-1.3 10 ^3/uL Eosinophils # (Auto) 0.2 0-0.8 10 ^3/uL Basophils # (Auto) 0.1 0-0.2 10 ^3/uL Nucleated Red Blood Cells 0.1 % Urine Color Light-yellow Yellow Urine Clarity Clear Clear Urine pH 8.0 5.0-9.0 Urine Specific [employer] [place] 1.007 1.001-1.035 Urine Protein 3+ H Negative Urine Ketones Negative Negative Urine Blood Negative Negative /uL Urine Nitrite Negative Negative Urine Bilirubin Negative Negative Urine Urobilinogen Normal Negative mg/dL Urine Leukocyte Esterase Negative Negative /uL Urine RBC 1 0 - 3 /hpf Urine WBC <1 0 - 3 /hpf Urine Squamous Epithelial Cells Few <5 /hpf Urine Bacteria None seen None Seen /hpf Urine Hyaline Casts Few 0 - 2 /lpf Urine Glucose 2+ H Normal mg/dL Troponin I High Sensitivity 17 </=54 ng/L Test 02/17/24 14:40 02/17/24 13:10 02/17/24 11:30 Range/Units Triglycerides Level 98 < 150 mg/dL Cholesterol Level 159 < 200 mg/dL LDL Cholesterol 61 < 100 mg/dL HDL Cholesterol 77 H 40-59 mg/dL Hemoglobin A1c 5.3 <5.7 % A1C B-Type Natriuretic Peptide 610.56 0-100 pg/mL Assessment ESKD on HD Hyperkalemia Chest pain History of coronary artery disease status post PCI Hypertension Type 2 diabetes Hyperlipidemia History of pseudoseizures Plan/Recommendation Hemodialysis today with a 2K bath. Scheduled for left heart catheterization in a.m.. Patient has outpatient dialysis schedule is on Tuesday , and Tuesday Plan discussed with: NETTIE Garcia MD Feb 19, 2024 13:55
--- NOTE | 2024-02-19 15:21 | DVHPN2 ---
Progress Note - Dictate Date Seen: Feb 19, 2024 Medical Necessity Reason Pt with a Central, PICC or Fol: No Subjective He is clinically stable. at bedside. Patient continued to have on and off pseudoseizures which he is known to have. Patient wants to go to smoke therefore he is consulted educated regarding the risks of smoking/going outside. vital signs Vital Sign Date Time Temp Pulse Resp B/P (MAP) Pulse Ox O2 Delivery O2 Flow Rate FiO2 02/19/24 14:34 161/71 02/19/24 12:58 97.6 67 17 95 97.6 02/19/24 08:57 Room Air 0.0 02/19/24 08:57 21 Total Intake and Output 02/18/24 02/18/24 02/19/24 15:00 23:00 07:00 Intake Total 250 ml 640 ml 400 ml Output Total 1450 ml Balance 250 ml -810 ml 400 ml medications Current Medications Medications Dose Ordered Sig/Gerard Route Start Time Stop Time Status Last Admin Dose Admin Allopurinol 100 mg QAM PO 02/18/24 07:00 02/19/24 06:04 100 MG Aspirin 81 mg QAM PO 02/18/24 07:00 02/19/24 06:04 81 MG Calcium Acetate 667 mg TIDWM PO 02/17/24 18:00 02/19/24 12:35 667 MG Clopidogrel Bisulfate 75 mg DAILY PO 02/18/24 10:00 02/19/24 10:22 75 MG Gabapentin 100 mg TID PO 02/17/24 14:00 02/19/24 14:35 100 MG Pantoprazole Sodium 40 mg QAM PO 02/18/24 07:00 02/19/24 06:04 40 MG Ranolazine 500 mg BID PO 02/17/24 22:00 02/19/24 10:22 500 MG Albuterol 2.5 mg Q4HP PRN NEB 02/17/24 14:45 02/18/24 18:38 2.5 MG Atorvastatin Calcium 40 mg HS PO 02/17/24 22:00 02/18/24 21:18 40 MG Isosorbide Mononitrate 60 mg DAILY PO 02/18/24 10:00 02/19/24 10:21 60 MG Nitroglycerin 0.4 mg Q5MINP PRN SL 02/17/24 14:15 Morphine Sulfate 2 mg Q30M PRN IV 02/17/24 14:15 Enoxaparin Sodium 30 mg DAILY SC 02/18/24 10:00 02/19/24 10:23 30 MG Morphine Sulfate 3 mg Q3HPRN PRN IV 02/17/24 14:15 Morphine Sulfate 2 mg Q4HPRN PRN IV 02/17/24 14:15 02/17/24 16:11 2 MG Ondansetron HCl 4 mg Q4HPRN PRN IV 02/17/24 14:15 Diagnostic Test (Pha) 1 strip ACHS 02/17/24 17:00 02/19/24 12:06 1 STRIP Insulin Human Regular HS SC 02/17/24 22:00 02/18/24 21:29 3 UNITS Insulin Human Regular AC SC 02/17/24 17:00 02/19/24 12:33 3 UNITS Dextrose 50 ml UD PRN IV 02/17/24 14:15 Insulin Glargine 15 units HS SC 02/17/24 22:00 02/18/24 21:29 15 UNITS Hydralazine HCl 10 mg Q6HP PRN IV 02/17/24 23:15 02/18/24 22:20 10 MG Zirconium Oxide 5 gm BID PO 02/18/24 22:00 02/19/24 10:23 5 GM Hydralazine HCl 50 mg Q8HR PO 02/18/24 14:00 02/19/24 14:34 50 MG Metoprolol Tartrate 25 mg BID PO 02/18/24 22:00 02/19/24 10:22 25 MG Clonidine HCl 0.1 mg Q4HP PRN PO 02/18/24 12:30 02/19/24 00:33 0.1 MG Diazepam 5 mg BID PO 02/18/24 13:15 02/19/24 10:22 5 MG Nicotine 1 patch DAILY TD 02/18/24 13:15 02/19/24 10:24 1 PATCH objective Comfortable in bed without distress. HEENT neck supple no JVD. Heart regular rate and rhythm S1 and S2. Lungs without rales wheezes. Abdomen soft nontender positive bowel sounds. Extremities positive pulses. laboratory and microbiology Laboratory Tests 02/19/24 06:00 02/18/24 10:21 Test 12/15/24 06:00 Range/Units Serum Glucose 91 74-106 mg/dL Assessment/Plan Continue current supportive care and treatment. Undergoing hemodialysis today. Keep him NPO after midnight and proceed with planned angiogram per Cardiology recommendations for tomorrow. Otherwise continue rest of supportive care and treatment. Discussed with the nurse/patient's and the patient regarding care plan. Problems(with codes): (1) Anemia (2) Elevated troponin (3) End stage renal disease on dialysis (4) Acute exacerbation of CHF (congestive heart failure) (5) Chest pain Plan discussed with: Patient, Spouse ENDY CORTÉS MD Feb 19, 2024 15:21
[2024-02-20] VITALS (15 sets, daily range): BP systolic 158–182; BP diastolic 72–87; PULSE 70–78; RESP 12–20; TEMP 97.2–98; O2SAT 94–100
[2024-02-20 00:07] LABS: INR 1.1 (0.9-1.15); Partial Thromboplastin Time 36.2 SEC (24.5-34.5); Prothrombin Time 11.6 sec (9.3-11.8)
[2024-02-20 07:37] LABS: Chloride 100 mmol/L (98-107)
[2024-02-20 07:38] LABS: Anion Gap 7 (5-15); Carbon Dioxide 27 mmol/L (20-31)
[2024-02-20 07:39] LABS: Basophils # (auto) 0 10 ^3/uL (0-0.2); Basophils % (auto) 0.6 % (0.0-2.0); Calcium 9.4 mg/dL (8.7-10.4); Eosinophils # (auto) 0.2 10 ^3/uL (0-0.8); Eosinophils % (auto) 3.4 % (0.0-7.0); Hematocrit 38.2 % (41.0-53.0); Hemoglobin 12.8 g/dL (13.5-17.5); Mean Corpuscular Hemoglobin 33.1 pg (28.0-32.0); Mean Corpuscular Hgb Conc. 33.6 g/dL (32.0-36.0); Mean Corpuscular Volume 98.5 fL (80.0-100.0); Monocytes # (auto) 0.7 10 ^3/uL (0-1.3); Monocytes % (auto) 10.9 % (0.0-12.0); Neutrophils # (auto) 4.5 10 ^3/uL (1.6-8.6); Neutrophils % (auto) 70.1 % (37.0-80.0); Nucleated Red Blood Cells % 0.1 %; Platelet Count (auto) 150 10^3/uL (140-450); Red Blood Cells 3.88 10^6/uL (4.5-5.90); Red Cell Distribution Width 16.9 % (11.8-14.3); White Blood Cell 6.4 10^3/uL (4.4-10.8)
[2024-02-20 07:43] LABS: BUN/Creatinine Ratio 4.6 (10.0-20.0); Glucose 87 mg/dL (74-106)
[2024-02-20 07:49] LABS: Blood Urea Nitrogen 35 mg/dL (9-23); Potassium 5.6 mmol/L (3.5-5.1); Sodium 134 mmol/L (136-145)
--- NOTE | 2024-02-20 14:01 | DVHPN2 ---
Progress Note - Dictate Date Seen: Feb 20, 2024 Medical Necessity Reason Pt with a Central, PICC or Fol: No Subjective Patient is denying chest pain currently but had one episode this morning. 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 vital signs Vital Sign Date Time Temp Pulse Resp B/P (MAP) Pulse Ox O2 Delivery O2 Flow Rate FiO2 02/20/24 11:00 78 137/81 02/20/24 09:58 18 100 02/20/24 09:52 Room Air* 0 21 02/20/24 05:00 98.0 98.0 Total Intake and Output 02/19/24 02/19/24 02/20/24 15:00 23:00 07:00 Intake Total 680 ml 0 ml Output Total 3 ml 300 ml Balance 677 ml -300 ml medications Current Medications Medications Dose Ordered Sig/Gerard Route Start Time Stop Time Status Last Admin Dose Admin Allopurinol 100 mg QAM PO 02/18/24 07:00 02/19/24 06:04 100 MG Aspirin 81 mg QAM PO 02/18/24 07:00 02/19/24 06:04 81 MG Calcium Acetate 667 mg TIDWM PO 02/17/24 18:00 02/19/24 18:33 667 MG Clopidogrel Bisulfate 75 mg DAILY PO 02/18/24 10:00 02/19/24 10:22 75 MG Gabapentin 100 mg TID PO 02/17/24 14:00 02/19/24 21:15 100 MG Pantoprazole Sodium 40 mg QAM PO 02/18/24 07:00 02/19/24 06:04 40 MG Ranolazine 500 mg BID PO 02/17/24 22:00 02/20/24 09:49 500 MG Albuterol 2.5 mg Q4HP PRN NEB 02/17/24 14:45 02/20/24 09:50 2.5 MG Atorvastatin Calcium 40 mg HS PO 02/17/24 22:00 02/19/24 21:14 40 MG Isosorbide Mononitrate 60 mg DAILY PO 02/18/24 10:00 02/20/24 09:48 60 MG Nitroglycerin 0.4 mg Q5MINP PRN SL 02/17/24 14:15 Morphine Sulfate 2 mg Q30M PRN IV 02/17/24 14:15 Enoxaparin Sodium 30 mg DAILY SC 02/18/24 10:00 02/19/24 10:23 30 MG Morphine Sulfate 3 mg Q3HPRN PRN IV 02/17/24 14:15 Morphine Sulfate 2 mg Q4HPRN PRN IV 02/17/24 14:15 02/17/24 16:11 2 MG Ondansetron HCl 4 mg Q4HPRN PRN IV 02/17/24 14:15 Diagnostic Test (Pha) 1 strip ACHS 02/17/24 17:00 02/20/24 12:00 1 STRIP Insulin Human Regular HS SC 02/17/24 22:00 02/19/24 21:23 4 UNITS Insulin Human Regular AC SC 02/17/24 17:00 02/19/24 12:33 3 UNITS Dextrose 50 ml UD PRN IV 02/17/24 14:15 Insulin Glargine 15 units HS SC 02/17/24 22:00 02/19/24 21:23 15 UNITS Hydralazine HCl 10 mg Q6HP PRN IV 02/17/24 23:15 02/20/24 00:31 10 MG Zirconium Oxide 5 gm BID PO 02/18/24 22:00 02/20/24 09:48 5 GM Hydralazine HCl 50 mg Q8HR PO 02/18/24 14:00 02/19/24 21:14 50 MG Metoprolol Tartrate 25 mg BID PO 02/18/24 22:00 02/20/24 09:48 25 MG Clonidine HCl 0.1 mg Q4HP PRN PO 02/18/24 12:30 02/19/24 00:33 0.1 MG Diazepam 5 mg BID PO 02/18/24 13:15 02/20/24 09:49 5 MG Nicotine 1 patch DAILY TD 02/18/24 13:15 02/20/24 09:49 1 PATCH objective HEENT: No evidence of JVD, no oral ulcers. Pulmonary: Lungs are clear on auscultation bilaterally Cardiovascular S1-S2, no S3 or S4 Abdomen: Bowel sounds positive, soft no rebound tenderness Skin: No rash Neurological: Alert, oriented, no focal weakness laboratory and microbiology Laboratory Tests 02/20/24 06:53 Test 02/20/24 06:53 Range/Units Serum Glucose 87 74-106 mg/dL Assessment/Plan Assessment: ESKD on HD Hyperkalemia Chest pain History of coronary artery disease status post PCI Hypertension Type 2 diabetes Hyperlipidemia History of pseudoseizures Recommendation: Patient was dialyzed yesterday. We will plan for tomorrow a.m. as well and TTS Lokelma was given today patient takes Lokelma daily Scheduled for left heart catheterization today. Fluid restriction less than 1 L per day. Hold off on NEVEAH until coronary syndrome resolved. Thank you very much for allowing us to participate in the care of this patient. Plan discussed with: Patient TOMÁS RODARTE MD Feb 20, 2024 14:01
--- NOTE | 2024-02-20 15:44 | DVHPN2 ---
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 His is in the room. vital signs Vital Sign Date Time Temp Pulse Resp B/P (MAP) Pulse Ox O2 Delivery O2 Flow Rate FiO2 02/20/24 11:00 78 137/81 02/20/24 09:58 18 100 02/20/24 09:52 Room Air* 0 21 02/20/24 05:00 98.0 98.0 Total Intake and Output 02/19/24 02/19/24 02/20/24 15:00 23:00 07:00 Intake Total 680 ml 0 ml Output Total 3 ml 300 ml Balance 677 ml -300 ml medications Current Medications Medications Dose Ordered Sig/Gerard Route Start Time Stop Time Status Last Admin Dose Admin Allopurinol 100 mg QAM PO 02/18/24 07:00 02/19/24 06:04 100 MG Aspirin 81 mg QAM PO 02/18/24 07:00 02/19/24 06:04 81 MG Calcium Acetate 667 mg TIDWM PO 02/17/24 18:00 02/19/24 18:33 667 MG Clopidogrel Bisulfate 75 mg DAILY PO 02/18/24 10:00 02/19/24 10:22 75 MG Gabapentin 100 mg TID PO 02/17/24 14:00 02/19/24 21:15 100 MG Pantoprazole Sodium 40 mg QAM PO 02/18/24 07:00 02/19/24 06:04 40 MG Ranolazine 500 mg BID PO 02/17/24 22:00 02/20/24 09:49 500 MG Albuterol 2.5 mg Q4HP PRN NEB 02/17/24 14:45 02/20/24 09:50 2.5 MG Atorvastatin Calcium 40 mg HS PO 02/17/24 22:00 02/19/24 21:14 40 MG Isosorbide Mononitrate 60 mg DAILY PO 02/18/24 10:00 02/20/24 09:48 60 MG Nitroglycerin 0.4 mg Q5MINP PRN SL 02/17/24 14:15 Morphine Sulfate 2 mg Q30M PRN IV 02/17/24 14:15 Enoxaparin Sodium 30 mg DAILY SC 02/18/24 10:00 02/19/24 10:23 30 MG Morphine Sulfate 3 mg Q3HPRN PRN IV 02/17/24 14:15 Morphine Sulfate 2 mg Q4HPRN PRN IV 02/17/24 14:15 02/17/24 16:11 2 MG Ondansetron HCl 4 mg Q4HPRN PRN IV 02/17/24 14:15 Diagnostic Test (Pha) 1 strip ACHS 02/17/24 17:00 02/20/24 12:00 1 STRIP Insulin Human Regular HS SC 02/17/24 22:00 02/19/24 21:23 4 UNITS Insulin Human Regular AC SC 02/17/24 17:00 02/19/24 12:33 3 UNITS Dextrose 50 ml UD PRN IV 02/17/24 14:15 Insulin Glargine 15 units HS SC 02/17/24 22:00 02/19/24 21:23 15 UNITS Hydralazine HCl 10 mg Q6HP PRN IV 02/17/24 23:15 02/20/24 00:31 10 MG Zirconium Oxide 5 gm BID PO 02/18/24 22:00 02/20/24 09:48 5 GM Hydralazine HCl 50 mg Q8HR PO 02/18/24 14:00 02/19/24 21:14 50 MG Metoprolol Tartrate 25 mg BID PO 02/18/24 22:00 02/20/24 09:48 25 MG Clonidine HCl 0.1 mg Q4HP PRN PO 02/18/24 12:30 02/19/24 00:33 0.1 MG Diazepam 5 mg BID PO 02/18/24 13:15 02/20/24 09:49 5 MG Nicotine 1 patch DAILY TD 02/18/24 13:15 02/20/24 09:49 1 PATCH objective Comfortable in bed without distress. HEENT neck supple no JVD. Heart regular rate and rhythm S1 and S2. Lungs without rales wheezes. Abdomen soft nontender positive bowel sounds. Extremities positive pulses. laboratory and microbiology Laboratory Tests 02/20/24 06:53 Test 02/20/24 06:53 Range/Units Serum Glucose 87 74-106 mg/dL Assessment/Plan Continue present supportive care and treatment as he is on. His further clinical management per coronary angiogram findings and recommendations from the Cardiology. Discussed with the . Problems(with codes): (1) Elevated troponin (2) End stage renal disease on dialysis (3) Acute exacerbation of CHF (congestive heart failure) (4) Chest pain (5) Anemia Plan discussed with: Spouse ENDY CORTÉS MD Feb 20, 2024 15:44
[2024-02-20] MEDS: VERAPAMIL 2.5MG/ML INJ 2ML VIAL IV ONE (16:35)
[2024-02-20] MEDS: ANGIOMAX 250 MG VIAL IV ONE (16:35)
[2024-02-20] MEDS: HEPARIN SODIUM (PORCINE) 5000 UNITS/ML 1ML VIAL ONE (16:35)
[2024-02-20] MEDS: MIDAZOLAM HCL 2MG/2ML 2ml VIAL (1mg/ml) ONE (16:36)
[2024-02-20] MEDS: SODIUM CHL 0.9% 0 ML ONE (16:36)
[2024-02-20] MEDS: LIDOCAINE 2%HCL (LOCAL ANESTH.) INJ 20ML MDV ONE (16:36)
[2024-02-20] MEDS: fentaNYL CITRATE 100 MCG/2 ML VL ONE (16:38)
--- NOTE | 2024-02-20 18:05 | DVHOP ---
DATE OF SURGERY: 02/20/2024 PROCEDURES PERFORMED: Left heart catheterization, bilateral cine coronary angiography, left ventriculography. PREOPERATIVE DIAGNOSIS: Coronary artery disease. POSTOPERATIVE DIAGNOSIS: Coronary artery disease. DESCRIPTION OF PROCEDURE: Prior local anesthesia with 2% lidocaine to the right wrist and full informed consent obtained, the patient was prepped and draped in the usual fashion followed by placement of a 6-Kinyarwanda sheath into the right radial artery through which a Richy catheter was used to cannulate both right and left coronary ostium and also used for ventriculography without complications. HEMODYNAMICS: Aortic blood pressure was 130/70, end-diastolic pressure was 8. There was no gradient across the aortic valve on pullback. CORONARY ANATOMY: RCA is a large vessel. It has a proximal 20%-30% stenosis. The distal RCA has an occluded distal posterolateral branch. The PDA and 2 other posterolaterals are within normal limits. Left main is large and normal. Left anterior descending is large. That has been stented proximally. There is no in-stent restenosis. Mid and distal segments are within normal limits. The diagonals are free of significant disease. The circumflex is large with 2 obtuse marginals free of significant disease. Collateralization is noted to the distal posterolateral branch. It is a smaller vessel, not amenable to angioplasty. Ventriculography in the ADAN projection shows an EF of 55-60% without apparent dysfunction. IMPRESSION: Mild coronary artery disease progression of the RCA. Occluded distal posterolateral branch. Normal ejection fraction. Normal end-diastolic pressures. No in-stent restenosis of the left anterior descending. RECOMMENDATIONS: Medical therapy is warranted. Continue with risk factor modification. MD NATHALIA Horta/LD TID: [id number] RECEIPT: [id number]
[2024-02-21 01:00] VITALS: BP 168/70; PULSE 71; RESP 20; TEMP 97.7; O2SAT 97
[2024-02-21 05:00] VITALS: BP 170/61; PULSE 73; RESP 20; TEMP 97.5; O2SAT 97
[2024-02-21] MEDS ORDERED: SODIUM CHL 0.9% 1000 ML BAG XX ONE (07:00)
[2024-02-21 07:06] LABS: Basophils # (auto) 0.1 10 ^3/uL (0-0.2); Basophils % (auto) 0.8 % (0.0-2.0); Eosinophils # (auto) 0.1 10 ^3/uL (0-0.8); Eosinophils % (auto) 2.4 % (0.0-7.0); Hematocrit 37.5 % (41.0-53.0); Hemoglobin 12.7 g/dL (13.5-17.5); Lymphocytes # (auto) 0.5 10 ^3/uL (0.4-5.4); Lymphocytes % (auto) 7.9 % (10.0-50.0); Mean Corpuscular Hemoglobin 33.2 pg (28.0-32.0); Mean Corpuscular Hgb Conc. 33.9 g/dL (32.0-36.0); Mean Corpuscular Volume 97.9 fL (80.0-100.0); Monocytes # (auto) 0.7 10 ^3/uL (0-1.3); Monocytes % (auto) 10.5 % (0.0-12.0); Neutrophils # (auto) 4.9 10 ^3/uL (1.6-8.6); Neutrophils % (auto) 78.4 % (37.0-80.0); Nucleated Red Blood Cells % 0.1 %; Platelet Count (auto) 143 10^3/uL (140-450); Red Blood Cells 3.83 10^6/uL (4.5-5.90); Red Cell Distribution Width 17.4 % (11.8-14.3); White Blood Cell 6.3 10^3/uL (4.4-10.8)
[2024-02-21 07:14] LABS: Anion Gap 10 (5-15); Carbon Dioxide 25 mmol/L (20-31); Chloride 98 mmol/L (98-107)
[2024-02-21 07:15] LABS: Calcium 9.6 mg/dL (8.7-10.4); Sodium 133 mmol/L (136-145)
[2024-02-21 07:18] LABS: Potassium 5.9 mmol/L (3.5-5.1)
[2024-02-21 07:20] LABS: BUN/Creatinine Ratio 4.6 (10.0-20.0); Glucose 99 mg/dL (74-106)
[2024-02-21 07:24] LABS: Blood Urea Nitrogen 42 mg/dL (9-23)
[2024-02-21 07:55] VITALS: O2SAT 97
[2024-02-21 08:00] VITALS: PULSE 74; PULSE 79; RESP 17; O2SAT 97
[2024-02-21 09:00] VITALS: BP 191/81; PULSE 76; RESP 18; TEMP 97.6; O2SAT 97
[2024-02-21] MEDS: METOPROLOL SUCCINATE XL 50 MG TAB PO SCH (10:00)
--- NOTE | 2024-02-21 12:28 | CONS ---
Pharmacy Clinical Information: From Heart Failure Fallout Report on CQM Application, Mikhail Mckee is a 58 year old male with PMH of HTN, HLD, GERD, DM, ID, ESRD. His home medications for heart failure include irbesartan, metoprolol succinate, hydralazine, isosorbide mononitrate. His inpatient medications include metoprolol tartrate, hydralazine, and isosorbi de mononitrate. MRA and ACEi/ARB/ARNi not recommended due to hyperkalemia. SGLT2i not recommended since the efficacy and safety studies did not include patients on dialysis. The impact is not known. Consider switching metoprolol tartrate to metoprolol succinate since the 2021 heart failure guidelines recommend sustained-release metoprolol to reduce mortality and hospitalizations. JANICE WEIR PHARMACIST Feb 21, 2024 12:28
[2024-02-21 13:00] VITALS: BP 158/99; PULSE 81; RESP 18; TEMP 97.7; O2SAT 97
--- NOTE | 2024-02-21 13:03 | DVHPN2 ---
Progress Note - Dictate Date Seen: Feb 21, 2024 Medical Necessity Reason Pt with a Central, PICC or Fol: No Subjective Patient feels well today denies any chest pain and he wants to go home. vital signs Vital Sign Date Time Temp Pulse Resp B/P (MAP) Pulse Ox O2 Delivery O2 Flow Rate FiO2 02/21/24 11:42 174/89 02/21/24 10:00 79 02/21/24 07:55 97 Room Air 0.0 02/21/24 07:55 21 02/21/24 05:00 97.5 20 97.5 Total Intake and Output 02/20/24 02/20/24 02/21/24 15:00 23:00 07:00 Intake Total 0 ml 418 ml Output Total 400 ml 200 ml Balance -400 ml 218 ml medications Current Medications Medications Dose Ordered Sig/Gerard Route Start Time Stop Time Status Last Admin Dose Admin Allopurinol 100 mg QAM PO 02/18/24 07:00 02/21/24 05:37 100 MG Aspirin 81 mg QAM PO 02/18/24 07:00 02/21/24 05:37 81 MG Calcium Acetate 667 mg TIDWM PO 02/17/24 18:00 02/21/24 11:35 667 MG Clopidogrel Bisulfate 75 mg DAILY PO 02/18/24 10:00 02/21/24 11:35 75 MG Gabapentin 100 mg TID PO 02/17/24 14:00 02/21/24 05:36 100 MG Pantoprazole Sodium 40 mg QAM PO 02/18/24 07:00 02/21/24 05:37 40 MG Ranolazine 500 mg BID PO 02/17/24 22:00 02/21/24 11:35 500 MG Albuterol 2.5 mg Q4HP PRN NEB 02/17/24 14:45 02/20/24 09:50 2.5 MG Atorvastatin Calcium 40 mg HS PO 02/17/24 22:00 02/20/24 21:45 40 MG Isosorbide Mononitrate 60 mg DAILY PO 02/18/24 10:00 02/21/24 11:42 60 MG Nitroglycerin 0.4 mg Q5MINP PRN SL 02/17/24 14:15 Morphine Sulfate 2 mg Q30M PRN IV 02/17/24 14:15 Enoxaparin Sodium 30 mg DAILY SC 02/18/24 10:00 02/21/24 11:36 30 MG Morphine Sulfate 3 mg Q3HPRN PRN IV 02/17/24 14:15 Morphine Sulfate 2 mg Q4HPRN PRN IV 02/17/24 14:15 02/17/24 16:11 2 MG Ondansetron HCl 4 mg Q4HPRN PRN IV 02/17/24 14:15 Diagnostic Test (Pha) 1 strip ACHS 02/17/24 17:00 02/21/24 11:48 1 STRIP Insulin Human Regular HS SC 02/17/24 22:00 02/20/24 21:55 2 UNITS Insulin Human Regular AC SC 02/17/24 17:00 02/21/24 12:01 6 UNITS Dextrose 50 ml UD PRN IV 02/17/24 14:15 Insulin Glargine 15 units HS SC 02/17/24 22:00 02/20/24 21:56 15 UNITS Hydralazine HCl 10 mg Q6HP PRN IV 02/17/24 23:15 02/20/24 00:31 10 MG Zirconium Oxide 5 gm BID PO 02/18/24 22:00 02/21/24 11:38 5 GM Metoprolol Tartrate 25 mg BID PO 02/18/24 22:00 Hold 02/20/24 21:47 25 MG Clonidine HCl 0.1 mg Q4HP PRN PO 02/18/24 12:30 02/20/24 18:39 0.1 MG Diazepam 5 mg BID PO 02/18/24 13:15 02/21/24 11:42 5 MG Nicotine 1 patch DAILY TD 02/18/24 13:15 02/21/24 11:37 1 PATCH Metoprolol Succinate 25 mg DAILY PO 02/21/24 10:00 02/21/24 10:00 25 MG Hydralazine HCl 100 mg Q8HR PO 02/21/24 14:00 objective HEENT: No evidence of JVD, no oral ulcers. Pulmonary: Lungs are clear on auscultation bilaterally Cardiovascular S1-S2, no S3 or S4 Abdomen: Bowel sounds positive, soft no rebound tenderness Skin: No rash Neurological: Alert, oriented, no focal weakness laboratory and microbiology Laboratory Tests 02/21/24 06:13 Test 02/21/24 06:13 Range/Units Serum Glucose 99 74-106 mg/dL Assessment/Plan Assessment: ESKD on HD Hyperkalemia Chest pain History of coronary artery disease status post PCI Hypertension Type 2 diabetes Hyperlipidemia History of pseudoseizures Recommendation: Continue dialysis TTS. Patient continue Lokelma every other day. He needs a refill prior to discharge. Cardiology following Fluid restriction less than 1 L per day. Hold off on NEVAEH until coronary syndrome resolved. Okay to discharge from Nephrology perspective. Thank you very much for allowing us to participate in the care of this patient. Plan discussed with: Patient TOMÁS RODARTE MD Feb 21, 2024 13:03
--- NOTE | 2024-02-21 13:28 | DVHDS2 ---
Discharge Summary Date of Admission Feb 17, 2024 at 14:01 Date of Discharge: Feb 21, 2024 Labs/Diagnostic Data: Laboratory Results Test 02/21/24 11:48 02/21/24 06:13 02/19/24 23:41 02/19/24 06:00 POC Glucose 216 mg/dl (70-106) White Blood Count 6.3 10^3/uL (4.4-10.8) Red Blood Count 3.83 10^6/uL (4.5-5.90) Hemoglobin 12.7 g/dL (13.5-17.5) Hematocrit 37.5 % (41.0-53.0) Mean Corpuscular Volume 97.9 fL (80.0-100.0) Mean Corpuscular Hemoglobin 33.2 pg (28.0-32.0) Mean Corpuscular Hemoglobin Concent 33.9 g/dL (32.0-36.0) Red Cell Distribution Width 17.4 % (11.8-14.3) Platelet Count 143 10^3/uL (140-450) Mean Platelet Volume 7.6 fL (6.9-10.8) Neutrophils (%) (Auto) 78.4 % (37.0-80.0) Lymphocytes (%) (Auto) 7.9 % (10.0-50.0) Monocytes (%) (Auto) 10.5 % (0.0-12.0) Eosinophils (%) (Auto) 2.4 % (0.0-7.0) Basophils (%) (Auto) 0.8 % (0.0-2.0) Neutrophils # (Auto) 4.9 10 ^3/uL (1.6-8.6) Lymphocytes # (Auto) 0.5 10 ^3/uL (0.4-5.4) Monocytes # (Auto) 0.7 10 ^3/uL (0-1.3) Eosinophils # (Auto) 0.1 10 ^3/uL (0-0.8) Basophils # (Auto) 0.1 10 ^3/uL (0-0.2) Nucleated Red Blood Cells 0.1 % Sodium Level 133 mmol/L (136-145) Potassium Level 5.9 mmol/L (3.5-5.1) Chloride Level 98 mmol/L (98-107) Carbon Dioxide Level 25 mmol/L (20-31) Anion Gap 10 (5-15) Blood Urea Nitrogen 42 mg/dL (9-23) Creatinine 9.17 mg/dL (0.700-1.30) Glomerular Filtration Rate Calc 6 mL/min (>90) BUN/Creatinine Ratio 4.6 (10.0-20.0) Serum Glucose 99 mg/dL (74-106) Calcium Level 9.6 mg/dL (8.7-10.4) Prothrombin Time 11.6 sec (9.3-11.8) Prothrombin Time INR 1.10 (0.9-1.15) Activated Partial Thromboplast Time 36.2 SEC (24.5-34.5) Total Bilirubin 0.3 mg/dL (0.2-1.0) Aspartate Amino Transferase (AST) 12 U/L (13-40) Alanine Aminotransferase (ALT) 11 U/L (7-40) Alkaline Phosphatase 74 U/L (46-116) Total Protein 6.3 g/dL (5.7-8.2) Albumin 4.0 g/dL (3.2-4.8) Test 02/17/24 22:45 02/17/24 14:40 02/17/24 13:10 02/17/24 11:30 Urine Color Light-yellow (Yellow) Urine Clarity Clear (Clear) Urine pH 8.0 (5.0-9.0) Urine Specific [place] 1.007 (1.001-1.035) Urine Protein 3+ (Negative) Urine Ketones Negative (Negative) Urine Blood Negative /uL (Negative) Urine Nitrite Negative (Negative) Urine Bilirubin Negative (Negative) Urine Urobilinogen Normal mg/dL (Negative) Urine Leukocyte Esterase Negative /uL (Negative) Urine RBC 1 /hpf (0 - 3) Urine WBC <1 /hpf (0 - 3) Urine Squamous Epithelial Cells Few /hpf (<5) Urine Bacteria None seen /hpf (None Seen) Urine Hyaline Casts Few /lpf (0 - 2) Urine Glucose 2+ mg/dL (Normal) Troponin I High Sensitivity 17 ng/L (</=54) Lipoprotein (a) 175.2 nmol/L (<75.0) Triglycerides Level 98 mg/dL (< 150) Cholesterol Level 159 mg/dL (< 200) LDL Cholesterol 61 mg/dL (< 100) HDL Cholesterol 77 mg/dL (40-59) Hemoglobin A1c 5.3 % A1C (<5.7) B-Type Natriuretic Peptide 610.56 pg/mL (0-100) Other Laboratory Tests 02/21/24 06:13 Final Diagnosis/Problems List Chest pain, coronary artery disease, end-stage renal disease on hemodialysis, status post coronary angiogram medical manage. Discharge Disposition: Home Discharge Instruct/Medications Diet: Consistent carbohydrate, Cardiac 2g Na,low cholest Activity: No Restrictions, As Tolerated Follow Up/Referral: Dialysis 3 times a week as your scheduled. Follow up with the primary care physician and adult education manager after two weeks. Medications: Continue all home medications as you were taking and per discharge medication list. Discharge Statement: "Patient was advised to return to the ER or call 911 if any headaches, dizziness, shortness of breath, chest pain, abdominal pain, bleeding, fevers, or worsening of medical condition. Patient was counseled about treatment plan, medications, possible side effects, patientverbalized understanding. All questions were answered to the best of my ability. This discharge took greater then 30 minutes in planning, reviewing documentation, counseling the patient, and discussing with other team members." ASSESSMENT ASSESSMENT Assessment Chest pain, coronary artery disease, end-stage renal disease on hemodialysis, status post coronary angiogram medical manage. ENDY CORTÉS MD Feb 21, 2024 13:28
[2024-02-21] MEDS: hydrALAZINE HCL 25 MG TAB PO SCH (13:36)
--- NOTE | 2024-02-22 09:41 | ECG ---
[facility] Test Date: 2024-02-17 Test Time: 14:28:55 Pat Name: CARLOS KING Department: ED Room: 0251T A Gender: M Vpk Teacher: ADI : 1965 Requested By: JEANNA KENNEDY Order Number: [id number] Reading MD: Measurements Intervals Tropic Rate: 91 P: 54 RI: 163 QRS: 87 QRSD: 129 T: 53 QT: 413 QTc: 509 Interpretive Statements Sinus rhythm Nonspecific intraventricular conduction delay Minimal ST depression, anterolateral leads Please click the below link to view image of tracing.
== END 2024-02-21 19:20 | disposition home or self-care (01) | DRG 286 ==
LOC: EDBD 11:24 → ER 11:24 → TELE 14:01 → TELE-EAST 02-18 04:01
PROVIDERS: ADMIT Hospitalist; ATTEND Hospitalist
PROC: 5A1D70Z Performance of Urinary Filtration, Intermittent, Less than 6 Hours Per Day (ICD-10-PCS; 2024-02-19)
PROC: 4A023N7 Measurement of Cardiac Sampling and Pressure, Left Heart, Percutaneous Approach (ICD-10-PCS; principal; 2024-02-20)
PROC: B211YZZ Fluoroscopy of Multiple Coronary Arteries using Other Contrast (ICD-10-PCS; 2024-02-20)
PROC: B215YZZ Fluoroscopy of Left Heart using Other Contrast (ICD-10-PCS; 2024-02-20)
PROC: 5A1D70Z Performance of Urinary Filtration, Intermittent, Less than 6 Hours Per Day (ICD-10-PCS; 2024-02-21)
DX: I25.10 Atherosclerotic heart disease of native coronary artery without angina pectoris (principal); N18.6 End stage renal disease; I13.2 Hypertensive heart and chronic kidney disease with heart failure and with stage 5 chronic kidney disease, or end stage renal disease; I24.9 Acute ischemic heart disease, unspecified; I50.9 Heart failure, unspecified; E11.22 Type 2 diabetes mellitus with diabetic chronic kidney disease; E78.5 Hyperlipidemia, unspecified; E87.5 Hyperkalemia; R56.9 Unspecified convulsions; K21.9 Gastro-esophageal reflux disease without esophagitis; I25.2 Old myocardial infarction; Z88.0 Allergy status to penicillin; Z88.7 Allergy status to serum and vaccine; Z79.899 Other long term (current) drug therapy; Z79.4 Long term (current) use of insulin; Z79.82 Long term (current) use of aspirin; Z82.49 Family history of ischemic heart disease and other diseases of the circulatory system; Z99.2 Dependence on renal dialysis; Z95.5 Presence of coronary angioplasty implant and graft; Z83.3 Family history of diabetes mellitus
CPT/HCPCS: 36415; 71045; 80048; 80053; 80061; 81001; 82962; 83036; 83695; 83880; 84484; 85025; 85610; 85730; 90935; 93005; 93458; 94640; 99152; G0378; J1815; J2250

== ENCOUNTER 2024-02-24 08:47 | Inpatient (IN) | payer BC, MEDICARE ==
[~2024-02-24] VITALS: Ht 185.4 cm; Wt 103.9 kg
--- NOTE | 2024-02-24 08:58 | ED.PDOC ---
Back pain HPI HPI Comments 58 y.o male with PMH of ESRD, dialysis T,TH,Sat, DM, HTN, presents to the ED via EMS for a chief complaint of lower back pain that presented one day ago. Patient reports pain came onset spontaneously prior to dialysis, states he completed session, was able to ambulate but pain became unbearable the more he ambulated around his home. Patient reports today he was unable to get out of bed and any movement causes sharp intense pain. Patient denies any chest pain, SOB, recent falls or injuries. Chief Complaint: Back Pain Time Seen by MD: 08:48 Primary Care Provider: CARDIO DR FISHER Reviewed Notes: Nurses Notes, Medications, Allergies Allergies: Coded Allergies: Penicillins (Verified Allergy, Unknown, 09/19/23) Tetanus Toxoid (Verified Allergy, Unknown, 09/19/23) Home Meds Active Scripts Clopidogrel Bisulfate (CLOPIDOGREL) 75 Mg Tab, 75 MG PO DAILY for 30 Days, #30 TAB Prov:LEÓN COLLINS MD 08/16/23 Reported Medications Isosorbide Mononitrate (Isosorbide Mononitrate Er) 30 Mg Tab, 30 MG PO DAILY for CAD, MG 09/19/23 Insulin Glargine (Basaglar Kwikpen) 100 Unit/Ml Inj, 100 UNIT SC for DIABETES, INJ 09/19/23 Calcium Acetate (Phosphate Bin (Calcium Acetate) 667 Mg Cap, 667 MG PO TIDWM for DIALYSIS, MG 09/19/23 Sodium Zirconium Cyclosilicate (Lokelma) 5 Gm Hernandez, 5 GM PO DAILY for HYPERKALEMIA, PACK 09/19/23 Atorvastatin Calcium (ATORVASTATIN CALCIUM) 40 Mg Tab, 1 TAB PO DAILY for HIGH CHOLESTEROL, #30 TAB 5 Refills 09/19/23 Dadrbbmamw-Bcoxgoxawhxwib-Aqrw (Breztri Aerosphere 160-9-4.8 Mcg/Act) 1 Aer Aer, 1 AER IN BID for COPD, AER 09/19/23 Albuterol Sulfate (Ventolin) 2.5 Mg/3 Ml Nb, 2.5 MG NEB Q4HP PRN for SHORTNESS OF BREATH, INH 09/19/23 Ranolazine (Ranolazine ER) 500 Mg Tab, 500 MG PO BID for CAD, TAB 09/19/23 Metoprolol Succinate (Metoprolol Succinate Er) 200 Mg Tab, 1 TAB PO DAILY for HTN 08/16/23 Diazepam (VALIUM TABLET) 5 Mg Tb, 5 MG GT PRN PRN for ANXIETY, TAB 08/14/23 Sodium Zirconium Cyclosilicate (Lokelma) 10 Gm Hernandez, 10 GM PO DAILY, PACK 08/14/23 Hydralazine Hcl (Hydralazine Hcl) 100 Mg Tab, 1 TAB PO TID, #90 TAB 5 Refills 08/14/23 Gabapentin (Gabapentin) 100 Mg Cap, 1 CAP PO TID, #90 CAP 2 Refills 08/14/23 Pantoprazole Sodium Sesquihydr (Protonix) 40 Mg Tab, 40 MG PO QAM, #30 TAB 08/14/23 Aspirin (Aspir-81) 81 Mg Tab, 1 TAB PO QAM, #30 TAB 5 Refills 08/14/23 Allopurinol (ZYLOPRIM TABLET) 100 Mg Tb, 1 TAB PO QAM, #30 TAB 5 Refills 08/14/23 Information Source: Patient Mode of Arrival: EMS Timing: Days (1) Duration: Since onset Severity: Moderate Quality: Sharp Onset: Spontaneous History of: None Modifying Factors: Nothing; No Movement, No Twisting, No Breathing, No Walking Past Medical History PAST MEDICAL HISTORY: CHF, ESRD, HTN Surgical History: Appendectomy, Cholecystectomy, PTCA (7) Family History Family History: Reviewed,noncontributory to illness, No family hx of Cancer, No family hx of DM, No family hx of Heart [place], No family hx of HTN, No family hx ofKidney [place], No family hx of Liver [place], No family hx of Lung [place], No family hx of Stroke Social History Smoker: Non-Smoker Alcohol: Denies ETOH Use Drugs: Denies Drug Use Lives In: Home Constitutional: denies: chills, diaphoresis, fatigue, fever, malaise, sweats, weakness, others EENTM: denies: blurred vision, double vision, ear bleeding, ear discharge, ear drainage, ear pain, ear ringing, eye pain, eye redness, hearing loss, mouth pain, mouth swelling, nasal discharge, nose bleeding, nose congestion, nose pain, photophobia, tearing, throat pain, throat swelling, voice changes, others Respiratory: denies: cough, hemoptysis, orthopnea, SOB at rest, shortness of breath, SOB with excertion, stridor, wheezing, others Cardiovascular: denies: chest pain, dizzy spells, diaphoresis, Dyspnea on exertion, edema, irregular heart beat, left arm pain, lightheadedness, palpitations, PND, syncope, others Gastrointestinal: denies: abdomen distended, abdominal pain, blood streaked bowels, constipated, diarrhea, dysphagia, difficulty swallowing, hematemesis, melena, nausea, poor appetite, poor fluid intake, rectal bleeding, rectal pain, vomiting, others Genitourinary: denies: burning, dysuria, flank pain, frequency, hematuria, incontinence, penile discharge, penile sore, pain, testicle pain, testicle swelling, urgency, others Neurological: denies: dizziness, fainting, headache, left sided numbness, left sided weakness, numbness, paresthesia, pre-existing deficit, right sided numbness, right sided weakness, seizure, speech problems, tingling, tremors, weakness, others Musculoskeletal: reports: back pain; denies: gout, joint pain, joint swelling, muscle pain, muscle stiffness, neck pain, others Integumetry: denies: bruises, change in color, change in hair/nails, dryness, laceration, lesions, lumps, rash, wounds, others Allergic/Immunocompromised: denies: Difficulty Healing, Frequent Infections, Hives, Itching, others Hematologic/Lymphatic: denies: anemia, blood clots, easy bleeding, easy bruising, swollen glands, others Endocrine: denies: excessive hunger, excessive sweating, excessive thirst, excessive urination, flushing, intolerance to cold, intolerance to heat, unexplained weight gain, unexplained weight loss, others Psychiatric: denies: anxiety, bipolar disorder, depression, hopeless, panic disorder, schizophrenia, sleepless, suicidal, others All Other Systems: Reviewed and Negative Physical Exam General Appearance: Moderate Distress HEENT: Normal ENT Inspection, Pharynx Normal, TMs Normal Neck: Full Range of Motion, Non-Tender, Normal, Normal Inspection Respiratory: Chest Non-Tender, Lungs Clear, No Accessory Muscle Use, No Respiratory Distress, Normal Breath Sounds Cardiovascular: No Edema, No JVD, No Murmur, No Gallop, Normal Peripheral Pulses, Regular Rate/Rhythm Breast Exam: Deferred Gastrointestinal: No Organomegaly, Non Tender, No Pulsatile Mass, Normal Bowel Sounds, Soft Genitalia: Deferred Pelvic: Deferred Rectal: Deferred Extremities: No calf tenderness, Normal capillary refill, Normal inspection, Normal range of motion, Non-tender, No pedal edema Musculoskeletal : Apperance: Normal Neurologic: Alert, No Motor Deficits, No Sensory Deficits Cerebellar Function: NOT DONE Reflexes: NOT DONE Skin: Normal Color Peripheral Pulses: 3+ Radial (R), 3+ Radial (L) Lymphatic: No Adenopathy Was a procedure done? Was a procedure done?: No Back Pain Differential Dx Differential Diagnosis: Aortic Dissection, Fracture, Musculoskeletal Pain, Pancreatitis, Pyelonephritis, Urolithiasis X-Ray, Labs, Meds, VS Vital Signs Date Time Temp Pulse Resp B/P (MAP) Pulse Ox O2 Delivery O2 Flow Rate FiO2 02/24/24 11:54 154/66 02/24/24 11:27 18 98 Room Air* 0 21 02/24/24 10:43 68 96 Room Air* 0 21 02/24/24 10:11 68 10 143/59 (87) 96 02/24/24 08:52 98.0 78 18 164/86 (112) 98 Lab Test 02/24/24 11:52 02/24/24 09:24 Range/Units POC Glucose 129 H 70-106 mg/dl White Blood Count 9.1 # 4.4-10.8 10^3/uL Red Blood Count 3.84 L 4.5-5.90 10^6/uL Hemoglobin 12.7 L 13.5-17.5 g/dL Hematocrit 37.7 L 41.0-53.0 % Mean Corpuscular Volume 98.0 80.0-100.0 fL Mean Corpuscular Hemoglobin 33.0 H 28.0-32.0 pg Mean Corpuscular Hemoglobin Concent 33.7 32.0-36.0 g/dL Red Cell Distribution Width 17.2 H 11.8-14.3 % Platelet Count 113 L 140-450 10^3/uL Mean Platelet Volume 7.7 6.9-10.8 fL Neutrophils (%) (Auto) 78.4 37.0-80.0 % Lymphocytes (%) (Auto) 7.5 L 10.0-50.0 % Monocytes (%) (Auto) 11.9 0.0-12.0 % Eosinophils (%) (Auto) 1.8 0.0-7.0 % Basophils (%) (Auto) 0.4 0.0-2.0 % Neutrophils # (Auto) 7.1 1.6-8.6 10 ^3/uL Lymphocytes # (Auto) 0.7 0.4-5.4 10 ^3/uL Monocytes # (Auto) 1.1 0-1.3 10 ^3/uL Eosinophils # (Auto) 0.2 0-0.8 10 ^3/uL Basophils # (Auto) 0 0-0.2 10 ^3/uL Nucleated Red Blood Cells 0.0 % Sodium Level 135 L 136-145 mmol/L Potassium Level 6.4 *H 3.5-5.1 mmol/L Chloride Level 99 98-107 mmol/L Carbon Dioxide Level 30 20-31 mmol/L Anion Gap 6 5-15 Blood Urea Nitrogen 39 H 9-23 mg/dL Creatinine 7.35 H 0.700-1.30 mg/dL Glomerular Filtration Rate Calc 8 >90 mL/min BUN/Creatinine Ratio 5.3 L 10.0-20.0 Serum Glucose 151 H 74-106 mg/dL Calcium Level 9.4 8.7-10.4 mg/dL Troponin I High Sensitivity 18 </=54 ng/L Current Medications Medications (Trade) Dose Ordered Sig/Gerard Route Start Time Stop Time Status Last Admin Insulin Human Regular (InsuLIN R) 10 units ONCE ONCE IV 02/24/24 11:15 02/24/24 11:16 DC 02/24/24 11:53 Dextrose 50 ml ONCE ONCE IV 02/24/24 11:15 02/24/24 11:16 DC 02/24/24 11:53 Albuterol (Ventolin Medneb) 20 mg ONCE ONCE NEB 02/24/24 11:15 02/24/24 11:16 DC 02/24/24 11:27 Sodium Bicarbonate 50 ml ONCE ONCE IV 02/24/24 11:15 02/24/24 11:16 DC 02/24/24 11:54 Furosemide (Lasix Injection) 20 mg ONCE ONCE IV 02/24/24 11:15 02/24/24 11:16 DC 02/24/24 11:54 Calcium Gluconate/ Sodium Chloride 50 ml @ 120 mls/hr ONCE ONCE IV 02/24/24 11:15 02/24/24 11:39 DC 02/24/24 11:32 Zirconium Oxide (Lokelma) 10 gm ONCE ONCE PO 02/24/24 11:15 02/24/24 11:16 DC 02/24/24 11:54 Patient alert. Chronic kidney function. Continues to have back pain. Vitals stable. History of coronary artery disease. Recently discharged from this hospital. Possibly will need placement. Potassium is elevated. Had dialysis yesterday. Blood sugar elevated. Cardiac marker within normal limits. Hyperkalemia treatment. Spoke with choice physician. Reviewed his previous visit. Explained to the patient. Continue cardiac monitoring. Time of 1ST Reevaluation: 08:56 Reevaluation 1ST: Unchanged Patient Education/Counseling: Diagnosis, Treatment, Prognosis Family Education/Counseling: No Family Present Additional Information I reviewed the following notes from patient's past medical encounters: 02/17/24 for acute chest pain The following tests were ordered, and results were reviewed by me: Labs, EKG Additional Information was gathered from interviewing the following independent historians: Paramedics I reviewed and agreed with the following test results read by other providers: CT LS SPINE WO CONTRAST I discussed treatment and results with medical personnel and patient EXAM: CT LS SPINE WO CONTRAST INDICATION: DJD, UNABLE TO WALK COMPARISON: CT chest 01/10/2023 TECHNIQUE: Multiple axial CT images of the lumbar spine were obtained using bone algorithm. Axial and coronal reformatting was done. Bone and soft tissue windows were reviewed. Radiation Dose Information: CT Dose: CTDI volume is 34.69 mGy. Dose-length product is 1178.93 mGy*cm FINDINGS: No CT evidence of acute fracture. Chronic bilateral L5 pars defects. Grade 1 anterolisthesis of L5 on S1. The visualized paraspinal soft tissues are grossly unremarkable. Tzzh-bz-ytxiomsl disc space narrowing at L3-4 and L4-5. L3-4, L4-5, and L5-S1 posterior disc osteophyte complexes. Tiny foci of vacuum phenomenon. Multilevel anterior osteophytosis calcifications of the anterior longitudinal ligament. No definite evidence for significant central canal stenosis or bilateral neural foraminal stenosis. Renal vascular and aortic atherosclerotic calcifications. IMPRESSION: 1. No CT evidence of acute fracture. 2. Chronic bilateral L5 pars defects with grade 1 anterolisthesis of L5 on S1. Departure 1 Departure Time of Disposition: 10:54 Impression: Primary Impression: Hyperkalemia Additional Impressions: End stage renal disease on dialysis Chronic back pain Qualified Codes: M54.50 - Low back pain, unspecified; G89.29 - Other chronic pain Disposition: ADMITTED INPATIENT Admit to: Med Surg Condition: Guarded Critical Care Note Critical Care Time?: Yes (90 min-critical care time only) Stability Stability form required: No Heart Score Heart Score: Heart Score Response (Comments) Value History N/A 0 EKG N/A 0 Age N/A 0 Risk Factors N/A 0 Troponin N/A 0 Total 0 I personally scribed for JULIA VALENZUELA MD ([email or web address]) on 02/24/24 at 08:58. Electronically submitted by Lilliam Currie ([facility]). I personally scribed for JULIA VALENZUELA MD ([email or web address]) on 02/24/24 at 08:58. Electronically submitted by Lilliam Currie ([facility]). I personally scribed for JULIA VALENZUELA MD ([email or web address]) on 02/24/24 at 12:46. Electronically submitted by Lilliam Currie ([facility]). JULIA VALENZUELA MD Feb 24, 2024 08:58
[2024-02-24 09:45] LABS: Basophils # (auto) 0 10 ^3/uL (0-0.2); Basophils % (auto) 0.4 % (0.0-2.0); Eosinophils # (auto) 0.2 10 ^3/uL (0-0.8); Eosinophils % (auto) 1.8 % (0.0-7.0); Hematocrit 37.7 % (41.0-53.0); Hemoglobin 12.7 g/dL (13.5-17.5); Lymphocytes # (auto) 0.7 10 ^3/uL (0.4-5.4); Lymphocytes % (auto) 7.5 % (10.0-50.0); Mean Corpuscular Hgb Conc. 33.7 g/dL (32.0-36.0); Monocytes # (auto) 1.1 10 ^3/uL (0-1.3); Monocytes % (auto) 11.9 % (0.0-12.0); Neutrophils # (auto) 7.1 10 ^3/uL (1.6-8.6); Neutrophils % (auto) 78.4 % (37.0-80.0); Platelet Count (auto) 113 10^3/uL (140-450); Red Blood Cells 3.84 10^6/uL (4.5-5.90); Red Cell Distribution Width 17.2 % (11.8-14.3); White Blood Cell 9.1 10^3/uL (4.4-10.8)
[2024-02-24 09:59] LABS: Chloride 99 mmol/L (98-107)
[2024-02-24 10:00] LABS: Anion Gap 6 (5-15); Calcium 9.4 mg/dL (8.7-10.4); Carbon Dioxide 30 mmol/L (20-31)
[2024-02-24 10:05] LABS: BUN/Creatinine Ratio 5.3 (10.0-20.0)
--- NOTE | 2024-02-24 10:20 | DVH ---
EXAM: CT LS SPINE WO CONTRAST INDICATION: DJD, UNABLE TO WALK COMPARISON: CT chest 01/10/2023 TECHNIQUE: Multiple axial CT images of the lumbar spine were obtained using bone algorithm. Axial an d coronal reformatting was done. Bone and soft tissue windows were reviewed. Radiation Dose Information: CT Dose: CTDI volume is 34.69 mGy. Dose-length product is 1178.93 mGy*cm FINDINGS: No CT evidence of acute fracture. Chronic bilateral L5 pars defects. Grade 1 anterolisthesis of L5 on S1. The visualized paraspinal soft tissues are grossly unremarkable. Cikv-zq-hnivrbir disc space narrowing at L3-4 and L4-5. L3-4, L4-5, and L5-S1 posterior disc osteophy te complexes. Tiny foci of vacuum phenomenon. Multilevel anterior osteophytosis calcifications of th e anterior longitudinal ligament. No definite evidence for significant central canal stenosis or bila teral neural foraminal stenosis. Renal vascular and aortic atherosclerotic calcifications. IMPRESSION: 1. No CT evidence of acute fracture. 2. Chronic bilateral L5 pars defects with grade 1 anterolisthesis of L5 on S1. 3. Posterior disc osteophyte complexes L3-4, L4-5, and L5-S1. No definite evidence of significant chilo tral canal or bilateral neural foraminal stenosis. If clinical symptomatology persists or worsens, co uld be better evaluated with MRI. Radiation optimization: All CT scans at this facility use at least one of these dose optimization te chniques: automated exposure control mA and/or kV adjustment per patient size (includes targeted exa ms where dose is matched to clinical indication) or iterative reconstruction. HS:Y
[2024-02-24 10:35] LABS: Blood Urea Nitrogen 39 mg/dL (9-23); Glucose 151 mg/dL (74-106); Sodium 135 mmol/L (136-145)
[2024-02-24 10:37] LABS: Potassium 6.4 mmol/L (3.5-5.1)
[2024-02-24 10:43] VITALS: PULSE 68; O2SAT 96
[2024-02-24] MEDS: ALBUTEROL SULF 2.5 MG/0.5ML(0.5%) NEB SOLN NEB ONE (11:27)
[2024-02-24] MEDS: CALCIUM GLUC 1,000mg/50ml-NS 50 ML IV ONE (11:32)
[2024-02-24] MEDS: InsuLIN REG 1unit/0.01ml Soln (100units/ml) IV ONE (11:53)
[2024-02-24] MEDS: DEXTROSE (50%) 50ML SYRG IV ONE (11:53)
[2024-02-24] MEDS: FUROSEMIDE 20 MG/2 ML VIAL IV ONE (11:54)
[2024-02-24] MEDS: SODIUM ZIRCONIUM CYCL 10 GM PAK PO ONE (11:54)
[2024-02-24] MEDS: SODIUM BICARB 8.4% 50Meq/50ml SYR INJ IV ONE (11:54)
[2024-02-24] MEDS: HYDROcodone-ACET 5/325MG TAB PO ONE (12:57)
--- NOTE | 2024-02-24 14:40 | DVHINCON2 ---
Date Seen: Feb 24, 20[address]erring Phys[address] ER physician Dr. Guerra Reason for Consultation Hyperkalemia. History of Present Illness 58-year-old male with a known history of congestive heart failure, chronic hypoxic respiratory failure, hypertensive heart disease, previous history of known coronary artery disease status post LAD stent, recent left heart catheterization shows no evidence of InStent stenosis, presented to the hospital after a fall complaining of back pain. CT lumbosacral spine shows no evidence of any acute fracture. Once patient has received dialysis patient can be discharged. Patient denies any chest pain palpitations. Past Medical History Hypertension, Congestive heart failure Known coronary artery disease status post PCI to LAD End-stage renal disease on hemodialysis Past Surgical History Dialysis access. LAD stent Family History: Diabetes mellitus G8 MOTHER, Onset:Unknown G8 FATHER, Onset:Unknown Hypertension G8 FATHER, Onset:Unknown Allergies: Coded Allergies: Penicillins (Verified Allergy, Unknown, 09/19/23) Tetanus Toxoid (Verified Allergy, Unknown, 09/19/23) Home Meds Active Scripts Clopidogrel Bisulfate (CLOPIDOGREL) 75 Mg Tab, 75 MG PO DAILY for 30 Days, #30 TAB Prov:LEÓN COLLINS MD 08/16/23 Reported Medications Isosorbide Mononitrate (Isosorbide Mononitrate Er) 30 Mg Tab, 30 MG PO DAILY for CAD, MG 09/19/23 Insulin Glargine (Basaglar Kwikpen) 100 Unit/Ml Inj, 100 UNIT SC for DIABETES, INJ 09/19/23 Calcium Acetate (Phosphate Bin (Calcium Acetate) 667 Mg Cap, 667 MG PO TIDWM for DIALYSIS, MG 09/19/23 Sodium Zirconium Cyclosilicate (Lokelma) 5 Gm Hernandez, 5 GM PO DAILY for HYPERKALEMIA, PACK 09/19/23 Atorvastatin Calcium (ATORVASTATIN CALCIUM) 40 Mg Tab, 1 TAB PO DAILY for HIGH CHOLESTEROL, #30 TAB 5 Refills 09/19/23 Xsnvotcids-Mohxkfkpglddnw-Cbie (Breztri Aerosphere 160-9-4.8 Mcg/Act) 1 Aer Aer, 1 AER IN BID for COPD, AER 09/19/23 Albuterol Sulfate (Ventolin) 2.5 Mg/3 Ml Nb, 2.5 MG NEB Q4HP PRN for SHORTNESS OF BREATH, INH 09/19/23 Ranolazine (Ranolazine ER) 500 Mg Tab, 500 MG PO BID for CAD, TAB 09/19/23 Metoprolol Succinate (Metoprolol Succinate Er) 200 Mg Tab, 1 TAB PO DAILY for HTN 08/16/23 Diazepam (VALIUM TABLET) 5 Mg Tb, 5 MG GT PRN PRN for ANXIETY, TAB 08/14/23 Sodium Zirconium Cyclosilicate (Lokelma) 10 Gm Hernandez, 10 GM PO DAILY, PACK 08/14/23 Hydralazine Hcl (Hydralazine Hcl) 100 Mg Tab, 1 TAB PO TID, #90 TAB 5 Refills 08/14/23 Gabapentin (Gabapentin) 100 Mg Cap, 1 CAP PO TID, #90 CAP 2 Refills 08/14/23 Pantoprazole Sodium Sesquihydr (Protonix) 40 Mg Tab, 40 MG PO QAM, #30 TAB 08/14/23 Aspirin (Aspir-81) 81 Mg Tab, 1 TAB PO QAM, #30 TAB 5 Refills 08/14/23 Allopurinol (ZYLOPRIM TABLET) 100 Mg Tb, 1 TAB PO QAM, #30 TAB 5 Refills 08/14/23 Review of Systems 12 review of system are negative besides mentioned above. Vital Signs Vital Signs Date Time Temp Pulse Resp B/P (MAP) Pulse Ox O2 Delivery O2 Flow Rate FiO2 02/24/24 11:54 154/66 02/24/24 11:27 18 98 Room Air* 0 21 02/24/24 10:43 68 02/24/24 08:52 98.0 Physical Exam HEENT pupils are reactive Neck is supple CV is S1-S2 regular rate and rhythm Respiratory are clear GI positive bowel sound Extremity no edema [employer] no motor deficit Labs/Diagnostic Data Labs Test 02/24/24 13:30 02/24/24 09:24 Range/Units POC Glucose 80 70-106 mg/dl White Blood Count 9.1 # 4.4-10.8 10^3/uL Red Blood Count 3.84 L 4.5-5.90 10^6/uL Hemoglobin 12.7 L 13.5-17.5 g/dL Hematocrit 37.7 L 41.0-53.0 % Mean Corpuscular Volume 98.0 80.0-100.0 fL Mean Corpuscular Hemoglobin 33.0 H 28.0-32.0 pg Mean Corpuscular Hemoglobin Concent 33.7 32.0-36.0 g/dL Red Cell Distribution Width 17.2 H 11.8-14.3 % Platelet Count 113 L 140-450 10^3/uL Mean Platelet Volume 7.7 6.9-10.8 fL Neutrophils (%) (Auto) 78.4 37.0-80.0 % Lymphocytes (%) (Auto) 7.5 L 10.0-50.0 % Monocytes (%) (Auto) 11.9 0.0-12.0 % Eosinophils (%) (Auto) 1.8 0.0-7.0 % Basophils (%) (Auto) 0.4 0.0-2.0 % Neutrophils # (Auto) 7.1 1.6-8.6 10 ^3/uL Lymphocytes # (Auto) 0.7 0.4-5.4 10 ^3/uL Monocytes # (Auto) 1.1 0-1.3 10 ^3/uL Eosinophils # (Auto) 0.2 0-0.8 10 ^3/uL Basophils # (Auto) 0 0-0.2 10 ^3/uL Nucleated Red Blood Cells 0.0 % Sodium Level 135 L 136-145 mmol/L Potassium Level 6.4 *H 3.5-5.1 mmol/L Chloride Level 99 98-107 mmol/L Carbon Dioxide Level 30 20-31 mmol/L Anion Gap 6 5-15 Blood Urea Nitrogen 39 H 9-23 mg/dL Creatinine 7.35 H 0.700-1.30 mg/dL Glomerular Filtration Rate Calc 8 >90 mL/min BUN/Creatinine Ratio 5.3 L 10.0-20.0 Serum Glucose 151 H 74-106 mg/dL Calcium Level 9.4 8.7-10.4 mg/dL Troponin I High Sensitivity 18 </=54 ng/L Assessment 58-year-old male with a known history of end-stage renal disease on hemodialysis, coronary artery disease status post PCI to LAD, congestive heart failure with systolic dysfunction presented to the hospital with back pain after fall found to have 1. Acute lumbar back pain, no evidence of any acute fracture 2. Hyperkalemia with a underlying end-stage renal disease on hemodialysis 3. Acute CHF exacerbation with systolic dysfunction 4. Hypertension 5. Known coronary artery disease status post PCI to LAD -dialysis per renal, pain meds as needed, discharge plan. Problems(with codes): (1) Acute exacerbation of CHF (congestive heart failure) (2) Hyperkalemia (3) End stage renal disease on dialysis Plan discussed with: Patient Date of Service: Feb 24, 2024 Billing Provider: LEÓN COLLINS MD Common Visit Codes: NOT BILLABLE LEÓN COLLINS MD Feb 24, 2024 14:40
[2024-02-24] MEDS: HYDROcodone-ACET 10/325MG TAB PO PRN (16:34)
[2024-02-24] MEDS: MORPHINE SULFATE INJ 2 MG/ml SYRG IV PRN (18:20)
[2024-02-24 20:00] VITALS: PULSE 70; O2SAT 94
[2024-02-24] MEDS: ONDANSETRON HCL 4 MG/2 ML VIAL IV ONE (23:50)
[2024-02-24] MEDS: MORPHINE SULFATE 4 MG/ML SYR/VIAL IV ONE (23:50)
[2024-02-25 00:04] LABS: Hepatitis A Ab IgM Negative; Hepatitis B Core IgM Negative (Negative); Hepatitis B Surface Antigen Negative (Negative); Hepatitis C Antibody Negative (Negative)
[2024-02-25] MEDS: MELATONIN 5 MG TAB PO ONE (01:30)
[2024-02-25] MEDS: LIDOCAINE 5% TOPICAL PATCH TOP ONE (05:43)
[2024-02-25] MEDS: ONDANSETRON HCL 4 MG/2 ML VIAL IV ONE (06:08)
[2024-02-25] MEDS: hydrALAZINE HCL 25 MG TAB PO SCH ×2 (06:11→14:26)
[2024-02-25] MEDS: GABAPENTIN 100 MG CAP PO ONE (06:32)
[2024-02-25] MEDS: METOPROLOL TARTRATE 50 MG TAB PO SCH (07:00)
[2024-02-25] MEDS ORDERED: METOPROLOL TARTRATE 50 MG TAB PO SCH (07:00)
[2024-02-25] MEDS ORDERED: NITROGLYCERIN 0.4 MG SL TAB SL PRN (07:30)
[2024-02-25] MEDS ORDERED: ONDANSETRON HCL 4 MG/2 ML VIAL IV PRN (07:30)
[2024-02-25] MEDS ORDERED: MORPHINE SULFATE INJ 2 MG/ml SYRG IV PRN (07:30)
--- NOTE | 2024-02-25 07:30 | DVHHPRES ---
History of Present Illness Resident Creating Document: RORY FUNES RESIDENT History of Present Illness Patient is a 58-year-old male with a past medical history of end-stage renal disease, CAD S/P PTCA came to the ED with a chief complaint of severe back pain. Patient was recently discharged from the hospital after being admitted for acute chest in left heart catheterization was done without any in-stent restenosis of the LAD. Patient was discharged on Tuesday02/21/2024 NSAIDs the time he went home his back pain exacerbated and got worse following which she came to the hospital. On this admission patient had elevated potassium 6.4 following which patient was given calcium gluconate, sodium bicarb, Lokelma. Patient gets dialysis at [facility] Past medical history: ESRD, CAD s/p PTCA Past surgical history: PTCA Social history: Reports smoke pain 4-5 cigarettes daily, denies alcohol, drug use Home medications: Hydralazine 100 mg t.i.d., atorvastatin 40 mg q.d., gabapentin 100 mg t.i.d., metoprolol XL 100 mg q.d., aspirin 81 mg q.d., amlodipine 10 mg q.d., isosorbide mononitrate 30 mg q.d., ranolazine 500 mg b.i.d., diazepam 10 mg t.i.d. p.r.n. Review of Systems Review of Systems Patient seen and examined at the bedside Reports of severe lower back pain and diffuse abdominal pain Reports that he has not passed flatus Reports mild Shortness of breath Denies chest pain, palpitations, dizziness Allergies: Coded Allergies: Penicillins (Verified Allergy, Unknown, 09/19/23) Tetanus Toxoid (Verified Allergy, Unknown, 09/19/23) Medications Current Medications Medications Dose Ordered Sig/Gerard Route Start Time Stop Time Status Last Admin Dose Admin Morphine Sulfate 2 mg Q4HPRN PRN IV 02/24/24 16:15 02/25/24 05:44 2 MG Acetaminophen/ Hydrocodone Bitart 1 tab Q6HPRN PRN PO 02/24/24 16:15 02/24/24 16:34 1 TAB Hydralazine HCl 100 mg BID PO 02/25/24 06:00 02/25/24 06:11 100 MG Exam Vital Signs Vital Signs Date Time Temp Pulse Resp B/P (MAP) Pulse Ox O2 Delivery O2 Flow Rate FiO2 02/25/24 06:14 76 13 157/77 02/25/24 02:00 96 02/24/24 23:41 97.0 97.0 02/24/24 20:00 Room Air* 0 21 Exam Physical Examination Gen - no pallor, no icterus, no cyanosis, no clubbing, no LAD, no edema . Skin - Patients skin is warm and dry. HEENT - normocephalic, atraumatic, moist mucous membranes. Neck - full ROM, no LAD, JVD Pulmonary - B/L decreased breath sounds. no crackles , no wheezing cardiovascular - normal S1,S2 heard. no murmurs heard. peripheral pulses normal radial 2+, pedal 2+. capillary refill normal <2 secs. GI - abdomen is diffusely tender to palpation, bowel sounds are normo- hyperactive. Neurological - Patient is A/O X 3 . Bilateral upper extremity strength 4/5, bilateral lower extremity strength 3/5, no facial droop, normal speech, no tremor, no sensory deficiets. Labs/Xrays Labs Test 02/25/24 00:30 02/24/24 15:08 02/24/24 09:24 Range/Units POC Glucose 133 H 70-106 mg/dl Potassium Level 5.3 H 3.5-5.1 mmol/L White Blood Count 9.1 # 4.4-10.8 10^3/uL Red Blood Count 3.84 L 4.5-5.90 10^6/uL Hemoglobin 12.7 L 13.5-17.5 g/dL Hematocrit 37.7 L 41.0-53.0 % Mean Corpuscular Volume 98.0 80.0-100.0 fL Mean Corpuscular Hemoglobin 33.0 H 28.0-32.0 pg Mean Corpuscular Hemoglobin Concent 33.7 32.0-36.0 g/dL Red Cell Distribution Width 17.2 H 11.8-14.3 % Platelet Count 113 L 140-450 10^3/uL Mean Platelet Volume 7.7 6.9-10.8 fL Neutrophils (%) (Auto) 78.4 37.0-80.0 % Lymphocytes (%) (Auto) 7.5 L 10.0-50.0 % Monocytes (%) (Auto) 11.9 0.0-12.0 % Eosinophils (%) (Auto) 1.8 0.0-7.0 % Basophils (%) (Auto) 0.4 0.0-2.0 % Neutrophils # (Auto) 7.1 1.6-8.6 10 ^3/uL Lymphocytes # (Auto) 0.7 0.4-5.4 10 ^3/uL Monocytes # (Auto) 1.1 0-1.3 10 ^3/uL Eosinophils # (Auto) 0.2 0-0.8 10 ^3/uL Basophils # (Auto) 0 0-0.2 10 ^3/uL Nucleated Red Blood Cells 0.0 % Sodium Level 135 L 136-145 mmol/L Chloride Level 99 98-107 mmol/L Carbon Dioxide Level 30 20-31 mmol/L Anion Gap 6 5-15 Blood Urea Nitrogen 39 H 9-23 mg/dL Creatinine 7.35 H 0.700-1.30 mg/dL Glomerular Filtration Rate Calc 8 >90 mL/min BUN/Creatinine Ratio 5.3 L 10.0-20.0 Serum Glucose 151 H 74-106 mg/dL Calcium Level 9.4 8.7-10.4 mg/dL Troponin I High Sensitivity 18 </=54 ng/L Hepatitis A IgM Antibody Negative Hepatitis B Surface Antigen Negative Negative Hepatitis B Core IgM Antibody Negative Negative Hepatitis C Antibody Negative Negative Assessment/Plan Assessment/Plan # Hyperkalemia # ESRD # acute on chronic Heart failure with reduced ejection fraction # acute on chronic hypoxic respiratory failure # hypertensive heart disease with heart failure # severe back pain # H/o coronary artery disease s/p PTCA Plan: - hyperkalemia protocol given - nephrology consulted - lumbar CT shows no evidence of acute fracture, bilateral L5 pars defects with grade 1 anterolisthesis of L5 on S1, posterior disc osteophyte complex is L3-L4, L4-L5 L5-S1 - physical therapy evaluation pending - home medications reconciled - monitor BMP and electrolytes Goals of care discussed with the patient and the for over 29 minutes. Full code Plan discussed with Dr. Monique Plan discussed with: Patient, Spouse My Orders Orders - RORY FUNES RESIDENT Procedure Category Date Status Time Hydralazine Hcl PHA 02/25/24 Verified Tablet (Apresoline 14:00 Admit ADMIT 02/25/24 Verified 07:19 Nitroglycerin PHA 02/25/24 Verified Sublingual (Ntrostat 07:30 Morphine Sulfate PHA 02/25/24 Verified Injection 07:30 Oxygen By Nasal RT 02/25/24 Verified Cannula 07:19 Stat Ekg For Chest SEAN 02/25/24 Verified Pain 07:19 Telemarketing Representative For SEAN 02/25/24 Verified 24 Hours 07:19 Emergency Dysrhythmia [facility] 02/25/24 Verified Protocol 07:19 Rhythm Strips Once [facility] 02/25/24 Verified Every Shift 07:19 Notify Md Of Changes [facility] 02/25/24 Verified From Base 07:19 Metoprolol Xl PHA 02/25/24 Verified Succinate (Toprol Xl) 10:00 Aspirin Tablet PHA 02/25/24 Verified 10:00 Amlodipine Tablet PHA 02/25/24 Verified (Norvasc Tablet) 10:00 Pantoprazole PHA 02/25/24 Verified (Protonix) 10:00 Ondansetron Hcl PHA 02/25/24 Verified (Zofran) 07:30 Ranolazine (Ranexa Er) PHA 02/25/24 Verified 10:00 Complete Blood Count LAB 02/25/24 Verified 07:19 Comprehensive LAB 02/25/24 Verified Metabolic Panel 07:19 Covid19 Antigen Kelsie LAB 02/25/24 Verified Rapid Influenza A&B LAB 02/25/24 Verified 07:19 Pt Request For Service PT 02/25/24 Verified 07:19 Date of Service: Feb 25, 2024 Billing Provider: JOEL MONIQUE MD Common Visit Codes: [id number] INP/OBS CARE (HIGH) RORY FUNES RESIDENT Feb 25, 2024 07:30 JOEL MONIQUE MD Feb 25, 2024 10:48
[2024-02-25 08:00] VITALS: PULSE 76; RESP 17; O2SAT 90
[2024-02-25 08:43] LABS: Basophils # (auto) 0 10 ^3/uL (0-0.2); Basophils % (auto) 0.4 % (0.0-2.0); Eosinophils # (auto) 0.1 10 ^3/uL (0-0.8); Eosinophils % (auto) 0.9 % (0.0-7.0); Hematocrit 38.2 % (41.0-53.0); Hemoglobin 12.9 g/dL (13.5-17.5); Lymphocytes # (auto) 0.6 10 ^3/uL (0.4-5.4); Mean Corpuscular Hemoglobin 32.8 pg (28.0-32.0); Mean Corpuscular Hgb Conc. 33.7 g/dL (32.0-36.0); Mean Corpuscular Volume 97.3 fL (80.0-100.0); Monocytes % (auto) 11.1 % (0.0-12.0); Neutrophils # (auto) 7.3 10 ^3/uL (1.6-8.6); Neutrophils % (auto) 80.6 % (37.0-80.0); Platelet Count (auto) 125 10^3/uL (140-450); Red Blood Cells 3.92 10^6/uL (4.5-5.90); Red Cell Distribution Width 16.9 % (11.8-14.3); White Blood Cell 9.1 10^3/uL (4.4-10.8)
[2024-02-25 09:00] LABS: Alanine Aminotransferase 11 U/L (7-40); Albumin 4.3 g/dL (3.2-4.8); Alkaline Phosphatase 83 U/L (46-116); Anion Gap 10 (5-15); Aspartate Aminotransferase 17 U/L (13-40); BUN/Creatinine Ratio 4.6 (10.0-20.0); Bilirubin, Total 0.4 mg/dL (0.2-1.0); Carbon Dioxide 29 mmol/L (20-31); Potassium 4.7 mmol/L (3.5-5.1); Total Protein 7.1 g/dL (5.7-8.2)
[2024-02-25 09:04] LABS: Blood Urea Nitrogen 26 mg/dL (9-23); Chloride 97 mmol/L (98-107); Glucose 121 mg/dL (74-106); Sodium 136 mmol/L (136-145)
--- NOTE | 2024-02-25 09:04 | DVHINCON2 ---
Date of service: Feb 25, [address] Collins Reason for Consultation End-stage renal disease management and hyperkalemia. History of Present Illness 58-year-old patient with significant history of end-stage renal disease on hemodialysis Tuesday and Tuesday, diabetes type 2, hypertension, chronic back pain, coronary artery disease status post stents, CHF, chronic pain syndrome who presents to the hospital with a worsening lower back pain best described as a sharp pain associated with ambulation partially relief by rest and he endorses inability to get out of bed without severe pain 10/10 radiated to the low back. He denies fever chills four recent falls. Labs initially revealed hyperkalemia and hemodialysis was completed around 11:00 p.m. last night for correction of the hyperkalemia. Past Medical History End-stage renal disease, diabetes type 2, hypertension, chronic back pain, hyperlipidemia, CHF, CAD. Past Surgical History Av access for dialysis Appendectomy, cholecystectomy. Allergies: Coded Allergies: Penicillins (Verified Allergy, Unknown, 09/19/23) Tetanus Toxoid (Verified Allergy, Unknown, 09/19/23) Home Meds Active Scripts Clopidogrel Bisulfate (CLOPIDOGREL) 75 Mg Tab, 75 MG PO DAILY for 30 Days, #30 TAB Prov:LEÓN COLLINS MD 08/16/23 Reported Medications Isosorbide Mononitrate (Isosorbide Mononitrate Er) 30 Mg Tab, 30 MG PO DAILY for CAD, MG 09/19/23 Insulin Glargine (Basaglar Kwikpen) 100 Unit/Ml Inj, 100 UNIT SC for DIABETES, INJ 09/19/23 Calcium Acetate (Phosphate Bin (Calcium Acetate) 667 Mg Cap, 667 MG PO TIDWM for DIALYSIS, MG 09/19/23 Sodium Zirconium Cyclosilicate (Lokelma) 5 Gm Hernandez, 5 GM PO DAILY for HYPERKALEMIA, PACK 09/19/23 Atorvastatin Calcium (ATORVASTATIN CALCIUM) 40 Mg Tab, 1 TAB PO DAILY for HIGH CHOLESTEROL, #30 TAB 5 Refills 09/19/23 Szygrlcmyj-Umxnivwqkhgrmg-Vfal (Breztri Aerosphere 160-9-4.8 Mcg/Act) 1 Aer Aer, 1 AER IN BID for COPD, AER 09/19/23 Albuterol Sulfate (Ventolin) 2.5 Mg/3 Ml Nb, 2.5 MG NEB Q4HP PRN for SHORTNESS OF BREATH, INH 09/19/23 Ranolazine (Ranolazine ER) 500 Mg Tab, 500 MG PO BID for CAD, TAB 09/19/23 Metoprolol Succinate (Metoprolol Succinate Er) 200 Mg Tab, 1 TAB PO DAILY for HTN 08/16/23 Diazepam (VALIUM TABLET) 5 Mg Tb, 5 MG GT PRN PRN for ANXIETY, TAB 08/14/23 Sodium Zirconium Cyclosilicate (Lokelma) 10 Gm Hernandez, 10 GM PO DAILY, PACK 08/14/23 Hydralazine Hcl (Hydralazine Hcl) 100 Mg Tab, 1 TAB PO TID, #90 TAB 5 Refills 08/14/23 Gabapentin (Gabapentin) 100 Mg Cap, 1 CAP PO TID, #90 CAP 2 Refills 08/14/23 Pantoprazole Sodium Sesquihydr (Protonix) 40 Mg Tab, 40 MG PO QAM, #30 TAB 08/14/23 Aspirin (Aspir-81) 81 Mg Tab, 1 TAB PO QAM, #30 TAB 5 Refills 08/14/23 Allopurinol (ZYLOPRIM TABLET) 100 Mg Tb, 1 TAB PO QAM, #30 TAB 5 Refills 08/14/23 Current Medications Current Medications Medications (Trade) Dose Ordered Sig/Gerard Route PRN Reason Start Time Stop Time Status Last Admin Morphine Sulfate 2 mg Q4HPRN PRN IV SEVERE PAIN (7-10 PAIN SCALE) 02/24/24 16:15 02/25/24 07:51 DC 02/25/24 05:44 Acetaminophen/ Hydrocodone Bitart ([place] 10/325MG Tab) 1 tab Q6HPRN PRN PO MODERATE PAIN (4-6 PAIN SCALE) 02/24/24 16:15 02/25/24 08:30 Hydralazine HCl (Apresoline Tablet) 100 mg BID PO 02/25/24 06:00 02/25/24 07:28 DC 02/25/24 06:11 Metoprolol Tartrate (Lopressor Tablet) 200 mg DAILY PO 02/25/24 07:00 02/25/24 06:45 DC Metoprolol Tartrate (Lopressor Tablet) 200 mg DAILY PO 02/25/24 07:00 02/25/24 07:06 DC Hydralazine HCl (Apresoline Tablet) 100 mg TID PO 02/25/24 14:00 Nitroglycerin (Ntrostat Sublingual) 0.4 mg Q5MINP PRN SL FOR CHEST PAIN 02/25/24 07:30 Morphine Sulfate 2 mg Q30M PRN IV FOR CHEST PAIN 02/25/24 07:30 Metoprolol Succinate (Toprol Xl) 100 mg DAILY PO 02/25/24 10:00 Aspirin 81 mg DAILY PO 02/25/24 10:00 Amlodipine Besylate (Norvasc Tablet) 10 mg DAILY PO 02/25/24 10:00 Pantoprazole Sodium (Protonix) 40 mg DAILY IV 02/25/24 10:00 Ondansetron HCl (Zofran) 4 mg Q4HPRN PRN IV NAUSEA / VOMITING 02/25/24 07:30 Ranolazine (Ranexa ER) 500 mg BID PO 02/25/24 10:00 Hydromorphone HCl (Dilaudid Innjection) 0.5 mg Q4HPRN PRN IV SEVERE PAIN (7-10 PAIN SCALE) 02/25/24 08:00 Family History: Diabetes mellitus G8 MOTHER, Onset:Unknown G8 FATHER, Onset:Unknown Hypertension G8 FATHER, Onset:Unknown Social History Patient lives with his he denies smoking alcohol or drug abuse. Review of Systems HEENT: Oral mucosa dry Neck no JVD Cardiovascular: Denies for chest pain denies orthopnea or PND Respiratory: Denies cough or shortness of breath Gastrointestinal: Denies for nausea vomiting Musculoskeletal: Back pain Neurological: Denies focal weakness Dermatological: Denies any rash The rest of the review of systems were reviewed pertinent positives and pertinent negatives are as per HPI up to 12 points review of systems H&P Exam Vital Signs/I&O Vital Sign Date Time Temp Pulse Resp B/P (MAP) Pulse Ox O2 Delivery O2 Flow Rate FiO2 02/25/24 08:00 76 17 90 Room Air* 0 21 02/25/24 08:00 98.0 182/77 (112) 98.0 Intake and Output 0 02/24/24 02/25/24 19:00 07:00 Intake Total 120 ml Balance 120 ml Intake IV Total 120 ml Physical Exam HEENT: No evidence of JVD, no oral ulcers. Pulmonary: Lungs are clear on auscultation bilaterally Cardiovascular S1-S2, no S3 or S4 Abdomen: Bowel sounds positive, soft no rebound tenderness Skin: No rash Musculoskeletal: Patient has difficulty sitting from the standing position Neurological: Alert, oriented, no focal weakness Labs/Diagnostic Data Labs/Diagnostic Data Laboratory Tests Test 02/25/24 08:24 02/25/24 00:30 02/24/24 15:08 02/24/24 13:30 Range/Units White Blood Count 9.1 4.4-10.8 10^3/uL Red Blood Count 3.92 L 4.5-5.90 10^6/uL Hemoglobin 12.9 L 13.5-17.5 g/dL Hematocrit 38.2 L 41.0-53.0 % Mean Corpuscular Volume 97.3 80.0-100.0 fL Mean Corpuscular Hemoglobin 32.8 H 28.0-32.0 pg Mean Corpuscular Hemoglobin Concent 33.7 32.0-36.0 g/dL Red Cell Distribution Width 16.9 H 11.8-14.3 % Platelet Count 125 L 140-450 10^3/uL Mean Platelet Volume 7.5 6.9-10.8 fL Neutrophils (%) (Auto) 80.6 H 37.0-80.0 % Lymphocytes (%) (Auto) 7.0 L 10.0-50.0 % Monocytes (%) (Auto) 11.1 0.0-12.0 % Eosinophils (%) (Auto) 0.9 0.0-7.0 % Basophils (%) (Auto) 0.4 0.0-2.0 % Neutrophils # (Auto) 7.3 1.6-8.6 10 ^3/uL Lymphocytes # (Auto) 0.6 0.4-5.4 10 ^3/uL Monocytes # (Auto) 1.0 0-1.3 10 ^3/uL Eosinophils # (Auto) 0.1 0-0.8 10 ^3/uL Basophils # (Auto) 0 0-0.2 10 ^3/uL Nucleated Red Blood Cells 0.0 % Sodium Level 136 136-145 mmol/L Potassium Level 4.7 5.3 H 3.5-5.1 mmol/L Chloride Level 97 L 98-107 mmol/L Carbon Dioxide Level 29 20-31 mmol/L Anion Gap 10 5-15 Blood Urea Nitrogen 26 #H 9-23 mg/dL Creatinine 5.61 H 0.700-1.30 mg/dL Glomerular Filtration Rate Calc 11 >90 mL/min BUN/Creatinine Ratio 4.6 L 10.0-20.0 Serum Glucose 121 H 74-106 mg/dL Calcium Level 10.0 8.7-10.4 mg/dL Total Bilirubin 0.4 0.2-1.0 mg/dL Aspartate Amino Transferase (AST) 17 13-40 U/L Alanine Aminotransferase (ALT) 11 7-40 U/L Alkaline Phosphatase 83 46-116 U/L Total Protein 7.1 5.7-8.2 g/dL Albumin 4.3 3.2-4.8 g/dL POC Glucose 133 H 80 70-106 mg/dl Test 02/24/24 11:52 02/24/24 09:24 Range/Units POC Glucose 129 H 70-106 mg/dl White Blood Count 9.1 # 4.4-10.8 10^3/uL Red Blood Count 3.84 L 4.5-5.90 10^6/uL Hemoglobin 12.7 L 13.5-17.5 g/dL Hematocrit 37.7 L 41.0-53.0 % Mean Corpuscular Volume 98.0 80.0-100.0 fL Mean Corpuscular Hemoglobin 33.0 H 28.0-32.0 pg Mean Corpuscular Hemoglobin Concent 33.7 32.0-36.0 g/dL Red Cell Distribution Width 17.2 H 11.8-14.3 % Platelet Count 113 L 140-450 10^3/uL Mean Platelet Volume 7.7 6.9-10.8 fL Neutrophils (%) (Auto) 78.4 37.0-80.0 % Lymphocytes (%) (Auto) 7.5 L 10.0-50.0 % Monocytes (%) (Auto) 11.9 0.0-12.0 % Eosinophils (%) (Auto) 1.8 0.0-7.0 % Basophils (%) (Auto) 0.4 0.0-2.0 % Neutrophils # (Auto) 7.1 1.6-8.6 10 ^3/uL Lymphocytes # (Auto) 0.7 0.4-5.4 10 ^3/uL Monocytes # (Auto) 1.1 0-1.3 10 ^3/uL Eosinophils # (Auto) 0.2 0-0.8 10 ^3/uL Basophils # (Auto) 0 0-0.2 10 ^3/uL Nucleated Red Blood Cells 0.0 % Sodium Level 135 L 136-145 mmol/L Potassium Level 6.4 *H 3.5-5.1 mmol/L Chloride Level 99 98-107 mmol/L Carbon Dioxide Level 30 20-31 mmol/L Anion Gap 6 5-15 Blood Urea Nitrogen 39 H 9-23 mg/dL Creatinine 7.35 H 0.700-1.30 mg/dL Glomerular Filtration Rate Calc 8 >90 mL/min BUN/Creatinine Ratio 5.3 L 10.0-20.0 Serum Glucose 151 H 74-106 mg/dL Calcium Level 9.4 8.7-10.4 mg/dL Troponin I High Sensitivity 18 </=54 ng/L Hepatitis A IgM Antibody Negative Hepatitis B Surface Antigen Negative Negative Hepatitis B Core IgM Antibody Negative Negative Hepatitis C Antibody Negative Negative CT scan of spine reviewed Assessment Assessment: 1. End-stage renal disease on hemodialysis TTS. 2. Acute on chronic lower back pain 3. CAD 4. Hypertension 5. Anemia of end-stage renal disease 6. Hyperkalemia Plan: Hemodialysis was order stat last night completed around 11:00 p.m.. Continue hemodialysis inpatient Resume antihypertensive meds Lokelma daily Low-potassium diet Kody as needed for goal hemoglobin 10-11 Patient might benefit from rehabilitation for his back pain. Further management as per primary team Thank you very much for allowing us to participate in the care of this patient. Plan discussed with: Patient TOMÁS RODARTE MD Feb 25, 2024 09:04
[2024-02-25] MEDS ORDERED: SODIUM CHL 0.9% 1000 ML BAG XX ONE (09:15)
[2024-02-25] MEDS ORDERED: ONDANSETRON HCL 4 MG/2 ML VIAL IV ONE (10:00)
[2024-02-25] MEDS: PANTOPRAZOLE 40 MG/10 ML VIAL INJ IV SCH (10:12)
[2024-02-25] MEDS: METOPROLOL SUCCINATE XL 50 MG TAB PO SCH (10:13)
[2024-02-25] MEDS: ASPirin 81 mg TAB PO SCH (10:13)
[2024-02-25] MEDS: amLODIPine BESYLATE 5 MG TAB PO SCH (10:19)
[2024-02-25] MEDS: RANOLAZINE ER 500 MG TAB PO SCH (10:32)
[2024-02-25 11:34] LABS: COVID19 ANTIGEN SOFIA FIA NEGATIVE (NEGATIVE)
[2024-02-25 14:03] VITALS: BP 189/78; PULSE 76; RESP 20; TEMP 97.9; O2SAT 98
[2024-02-25] MEDS: HYDROMORPHONE HCL 1 MG/ML INJ IV PRN (15:12)
[2024-02-25 17:21] VITALS: BP 189/82; PULSE 79; RESP 18; TEMP 98.1; O2SAT 93
[2024-02-25] MEDS: ISOSORBIDE MONONITRATE ER 60 MG TAB PO SCH (17:46)
[2024-02-25] MEDS: METOPROLOL SUCCINATE XL 50 MG TAB PO ONE (17:47)
--- NOTE | 2024-02-25 17:50 | DVHDS2 ---
Discharge Summary Date of Admission Feb 25, 2024 at 07:19 Date of Discharge: Feb 25, 2024 Labs/Diagnostic Data: Laboratory Results Test 02/25/24 09:05 02/25/24 08:24 02/25/24 00:30 02/24/24 09:24 SARS-CoV-2 Antigen (Rapid) Negative (NEGATIVE) White Blood Count 9.1 10^3/uL (4.4-10.8) Red Blood Count 3.92 10^6/uL (4.5-5.90) Hemoglobin 12.9 g/dL (13.5-17.5) Hematocrit 38.2 % (41.0-53.0) Mean Corpuscular Volume 97.3 fL (80.0-100.0) Mean Corpuscular Hemoglobin 32.8 pg (28.0-32.0) Mean Corpuscular Hemoglobin Concent 33.7 g/dL (32.0-36.0) Red Cell Distribution Width 16.9 % (11.8-14.3) Platelet Count 125 10^3/uL (140-450) Mean Platelet Volume 7.5 fL (6.9-10.8) Neutrophils (%) (Auto) 80.6 % (37.0-80.0) Lymphocytes (%) (Auto) 7.0 % (10.0-50.0) Monocytes (%) (Auto) 11.1 % (0.0-12.0) Eosinophils (%) (Auto) 0.9 % (0.0-7.0) Basophils (%) (Auto) 0.4 % (0.0-2.0) Neutrophils # (Auto) 7.3 10 ^3/uL (1.6-8.6) Lymphocytes # (Auto) 0.6 10 ^3/uL (0.4-5.4) Monocytes # (Auto) 1.0 10 ^3/uL (0-1.3) Eosinophils # (Auto) 0.1 10 ^3/uL (0-0.8) Basophils # (Auto) 0 10 ^3/uL (0-0.2) Nucleated Red Blood Cells 0.0 % Sodium Level 136 mmol/L (136-145) Potassium Level 4.7 mmol/L (3.5-5.1) Chloride Level 97 mmol/L (98-107) Carbon Dioxide Level 29 mmol/L (20-31) Anion Gap 10 (5-15) Blood Urea Nitrogen 26 mg/dL (9-23) Creatinine 5.61 mg/dL (0.700-1.30) Glomerular Filtration Rate Calc 11 mL/min (>90) BUN/Creatinine Ratio 4.6 (10.0-20.0) Serum Glucose 121 mg/dL (74-106) Calcium Level 10.0 mg/dL (8.7-10.4) Total Bilirubin 0.4 mg/dL (0.2-1.0) Aspartate Amino Transferase (AST) 17 U/L (13-40) Alanine Aminotransferase (ALT) 11 U/L (7-40) Alkaline Phosphatase 83 U/L (46-116) Total Protein 7.1 g/dL (5.7-8.2) Albumin 4.3 g/dL (3.2-4.8) POC Glucose 133 mg/dl (70-106) Troponin I High Sensitivity 18 ng/L (</=54) Hepatitis A IgM Antibody Negative Hepatitis B Surface Antigen Negative (Negative) Hepatitis B Core IgM Antibody Negative (Negative) Hepatitis C Antibody Negative (Negative) Other Laboratory Tests 02/25/24 08:24 Brief Hx & Hospital Course: 58-year-old male with a known history of end-stage renal disease on hemodialysis, coronary artery disease status post PCI to LAD, congestive heart failure with systolic dysfunction presented to the hospital with back pain after fall found to have acute lumbar back pain without any evidence of acute fracture. Patient was found to have hyperkalemia but he does have underlying end-stage renal disease on hemodialysis. Initially plan was to discharge the patient to home from ER but hospitalist team diminished with the patient. Patient's blood pressure was high medication ordered yesterday. Patient is currently being discharged under stable condition. Condition at Discharge: Stable Final Diagnosis/Problems List 1. Acute lumbar back pain, no evidence of any acute fracture 2. Hyperkalemia with a underlying end-stage renal disease on hemodialysis 3. Acute CHF exacerbation with systolic dysfunction 4. Hypertension 5. Known coronary artery disease status post PCI to LAD Discharge Disposition: Home SNF Discharge Will this Physician continue t: No Discharge Instruct/Medications Diet: Cardiac 2g Na,low cholest, Renal Activity: No Restrictions, As Tolerated Follow Up/Referral: Please follow up with the PCP in one week Medications: Resume home medication Discharge Statement: "Patient was advised to return to the ER or call 911 if any headaches, dizziness, shortness of breath, chest pain, abdominal pain, bleeding, fevers, or worsening of medical condition. Patient was counseled about treatment plan, medications, possible side effects, patientverbalized understanding. All questions were answered to the best of my ability. This discharge took greater then 30 minutes in planning, reviewing documentation, counseling the patient, and discussing with other team members." ASSESSMENT ASSESSMENT Assessment 58-year-old male with a known history of end-stage renal disease on hemodialysis, coronary artery disease status post PCI to LAD, congestive heart failure with systolic dysfunction presented to the hospital with back pain after fall found to have 1. Acute lumbar back pain, no evidence of any acute fracture 2. Hyperkalemia with a underlying end-stage renal disease on hemodialysis 3. Acute CHF exacerbation with systolic dysfunction 4. Hypertension 5. Known coronary artery disease status post PCI to LAD Date of Service: Feb 25, 2024 Billing Provider: LEÓN COLLINS MD Common Visit Codes: NOT BILLABLE LEÓN COLLINS MD Feb 25, 2024 17:50
[2024-02-25] MEDS ORDERED: DEXTROSE (50%) 50ML SYRG IV PRN (19:00)
[2024-02-25 20:00] VITALS: PULSE 78; RESP 19; O2SAT 97
[2024-02-25] MEDS: InsuLIN REG 1unit/0.01ml Soln (100units/ml) SC SCH (21:23)
[2024-02-25] MEDS: ACCU-CHEK COMFORT CURVE STRIP VI SCH (21:23)
[2024-02-25 21:24] VITALS: BP 157/71; PULSE 78; RESP 17; TEMP 98.3; O2SAT 95
[2024-02-26] MEDS ORDERED: InsuLIN REG 1unit/0.01ml Soln (100units/ml) SC SCH (07:00)
[2024-02-26] MEDS ORDERED: METOPROLOL SUCCINATE XL 50 MG TAB PO SCH (10:00)
[2024-02-26] MEDS ORDERED: ISOSORBIDE MONONITRATE ER 60 MG TAB PO SCH (10:00)
== END 2024-02-25 21:50 | disposition home or self-care (01) | DRG 640 ==
LOC: ER 08:47 → EDBD 08:47 → TELE 02-25 07:19 → TELE-CENTR 02-25 13:56
PROVIDERS: ATTEND Emergency Medicine
PROC: 5A1D70Z Performance of Urinary Filtration, Intermittent, Less than 6 Hours Per Day (ICD-10-PCS; principal; 2024-02-25)
DX: E87.5 Hyperkalemia (principal); I50.23 Acute on chronic systolic (congestive) heart failure; J96.21 Acute and chronic respiratory failure with hypoxia; N18.6 End stage renal disease; I13.2 Hypertensive heart and chronic kidney disease with heart failure and with stage 5 chronic kidney disease, or end stage renal disease; M54.50 Low back pain, unspecified; Z20.822 Contact with and (suspected) exposure to COVID-19; I25.10 Atherosclerotic heart disease of native coronary artery without angina pectoris; E11.22 Type 2 diabetes mellitus with diabetic chronic kidney disease; D63.1 Anemia in chronic kidney disease; E78.5 Hyperlipidemia, unspecified; G89.4 Chronic pain syndrome; Z99.2 Dependence on renal dialysis; Z88.0 Allergy status to penicillin; Z88.7 Allergy status to serum and vaccine; Z90.49 Acquired absence of other specified parts of digestive tract; Z95.5 Presence of coronary angioplasty implant and graft; Z82.49 Family history of ischemic heart disease and other diseases of the circulatory system; Z83.3 Family history of diabetes mellitus
CPT/HCPCS: 36415; 72131; 80048; 80053; 80074; 82962; 84132; 84484; 85025; 87081; 87426; 94640; 99291; 99292; G0378; J1815; J2405; J2470

== ENCOUNTER 2024-03-04 04:34 | Emergency (ER) | payer BC, MEDICARE ==
[~2024-03-04] VITALS: Ht 188 cm; Wt 108.9 kg
--- NOTE | 2024-03-04 04:51 | ED.PDOC ---
History of Present Illness HPI Comments 59 year old male brought in by EMS presents to the ED with a chief complaint of back pain onset today. Per EMS, patient was at the dialysis center when he began experiencing seizure like activity that lasted about 10 minutes. Patient's last dialysis was 02/28/2024, was not able to get it today due to seizure. Patient is currently experiencing back pain, rates is 10/10 and radiates to bilateral lower extremities. Patient tries to punch himself to distract from pain. Past medical history of ESRD, seizure, CHF, HTN. No other symptoms or modifying factors present at this time. Chief Complaint: Back Pain Time Seen by MD: 04:42 Primary Care Provider: UNKNOWN Reviewed Notes: Medications, Allergies Allergies: Coded Allergies: Penicillins (Verified Allergy, Unknown, 09/19/23) Tetanus Toxoid (Verified Allergy, Unknown, 09/19/23) Home Meds Active Scripts Clopidogrel Bisulfate (CLOPIDOGREL) 75 Mg Tab, 75 MG PO DAILY for 30 Days, #30 TAB Prov:LEÓN COLLINS MD 08/16/23 Reported Medications Isosorbide Mononitrate (Isosorbide Mononitrate Er) 30 Mg Tab, 30 MG PO DAILY for CAD, MG 09/19/23 Insulin Glargine (Basaglar Kwikpen) 100 Unit/Ml Inj, 100 UNIT SC for DIABETES, INJ 09/19/23 Calcium Acetate (Phosphate Bin (Calcium Acetate) 667 Mg Cap, 667 MG PO TIDWM for DIALYSIS, MG 09/19/23 Sodium Zirconium Cyclosilicate (Lokelma) 5 Gm Hernandez, 5 GM PO DAILY for HYPE RKALEMIA, PACK 09/19/23 Atorvastatin Calcium (ATORVASTATIN CALCIUM) 40 Mg Tab, 1 TAB PO DAILY for HIGH CHOLESTEROL, #30 TAB 5 Refills 09/19/23 Qgbitxrgjp-Fmvsjjlboxalmz-Snfb (Breztri Aerosphere 160-9-4.8 Mcg/Act) 1 Aer Aer, 1 AER IN BID for COPD, AER 09/19/23 Albuterol Sulfate (Ventolin) 2.5 Mg/3 Ml Nb, 2.5 MG NEB Q4HP PRN for SHORTNESS OF BREATH, INH 09/19/23 Ranolazine (Ranolazine ER) 500 Mg Tab, 500 MG PO BID for CAD, TAB 09/19/23 Metoprolol Succinate (Metoprolol Succinate Er) 200 Mg Tab, 1 TAB PO DAILY for HTN 08/16/23 Diazepam (VALIUM TABLET) 5 Mg Tb, 5 MG GT PRN PRN for ANXIETY, TAB 08/14/23 Sodium Zirconium Cyclosilicate (Lokelma) 10 Gm Hernandez, 10 GM PO DAILY, PACK 08/14/23 Hydralazine Hcl (Hydralazine Hcl) 100 Mg Tab, 1 TAB PO TID, #90 TAB 5 Refills 08/14/23 Gabapentin (Gabapentin) 100 Mg Cap, 1 CAP PO TID, #90 CAP 2 Refills 08/14/23 Pantoprazole Sodium Sesquihydr (Protonix) 40 Mg Tab, 40 MG PO QAM, #30 TAB 08/14/23 Aspirin (Aspir-81) 81 Mg Tab, 1 TAB PO QAM, #30 TAB 5 Refills 08/14/23 Allopurinol (ZYLOPRIM TABLET) 100 Mg Tb, 1 TAB PO QAM, #30 TAB 5 Refills 08/14/23 Information Source: Patient, Emergency Med Personnel Mode of Arrival: EMS Severity: Moderate Timing: Hours Duration: Since onset Prehospital treatment: 12 Lead EKG Past Medical History PAST MEDICAL HISTORY: CHF, ESRD, HTN, Seizures Surgical History: Appendectomy, Cholecystectomy, PTCA Family History Family History: Reviewed,noncontributory to illness, No family hx of Cancer, No family hx of DM, No family hx of Heart [place], No family hx of HTN, No family hx ofKidney [place], No family hx of Liver [place], No family hx of Lung [place], No family hx of Stroke Social History Smoker: Non-Smoker Alcohol: Denies ETOH Use Drugs: Denies Drug Use Lives In: Home Constitutional: denies: chills, diaphoresis, fatigue, fever, malaise, sweats, weakness, others EENTM: denies: blurred vision, double vision, ear bleeding, ear discharge, ear drainage, ear pain, ear ringing, eye pain, eye redness, hearing loss, mouth pain, mouth swelling, nasal discharge, nose bleeding, nose congestion, nose pain, photophobia, tearing, throat pain, throat swelling, voice changes, others Respiratory: denies: cough, hemoptysis, orthopnea, SOB at rest, shortness of breath, SOB with excertion, stridor, wheezing, others Cardiovascular: denies: chest pain, dizzy spells, diaphoresis, Dyspnea on exertion, edema, irregular heart beat, left arm pain, lightheadedness, palpitations, PND, syncope, others Gastrointestinal: denies: abdomen distended, abdominal pain, blood streaked bowels, constipated, diarrhea, dysphagia, difficulty swallowing, hematemesis, melena, nausea, poor appetite, poor fluid intake, rectal bleeding, rectal pain, vomiting, others Genitourinary: denies: burning, dysuria, flank pain, frequency, hematuria, incontinence, penile discharge, penile sore, pain, testicle pain, testicle swelling, urgency, others Neurological: reports: seizure; denies: dizziness, fainting, headache, left sided numbness, left sided weakness, numbness, paresthesia, pre-existing deficit, right sided numbness, right sided weakness, speech problems, tingling, tremors, weakness, others Musculoskeletal: reports: back pain, others (bilateral leg pain); denies: gout, joint pain, joint swelling, muscle pain, muscle stiffness, neck pain Integumetry: denies: bruises, change in color, change in hair/nails, dryness, laceration, lesions, lumps, rash, wounds, others Allergic/Immunocompromised: denies: Difficulty Healing, Frequent Infections, Hives, Itching, others Hematologic/Lymphatic: denies: anemia, blood clots, easy bleeding, easy bruising, swollen glands, others Endocrine: denies: excessive hunger, excessive sweating, excessive thirst, excessive urination, flushing, intolerance to cold, intolerance to heat, unexplained weight gain, unexplained weight loss, others Psychiatric: denies: anxiety, bipolar disorder, depression, hopeless, panic disorder, schizophrenia, sleepless, suicidal, others All Other Systems: Reviewed and Negative Physical Exam General Appearance: Normal, Severe Distress HEENT: Normal ENT Inspection, Pharynx Normal, TMs Normal Neck: Full Range of Motion, Non-Tender, Normal, Normal Inspection Respiratory: Chest Non-Tender, Lungs Clear, No Accessory Muscle Use, No Respiratory Distress, Normal Breath Sounds Cardiovascular: No Edema, No JVD, No Murmur, No Gallop, Normal Peripheral Pulses, Regular Rate/Rhythm Breast Exam: Deferred Gastrointestinal: No Organomegaly, Non Tender, No Pulsatile Mass, Normal Bowel Sounds, Soft Genitalia: Deferred Pelvic: Deferred Rectal: Deferred Extremities: Tender, Other (tender bilateral lumbar paraspinal) Musculoskeletal : Apperance: Normal Neurologic: Alert, sliver cutter II-XII nml as Tested, No Motor Deficits, Normal Affect, Normal Mood, No Sensory Deficits Cerebellar Function: Normal Reflexes: Normal Skin: Dry, Normal Color, Warm Lymphatic: No Adenopathy Was a procedure done? Was a procedure done?: No Differential Dx Considerations may include: Differential diagnosis includes but is not limited to: fluid overload, hyperkalemia, congestive heart failure, pleural effusion, empyema, cauda equina syndrome and others X-Ray, Labs, Meds, VS Vital Signs Date Time Temp Pulse Resp B/P (MAP) Pulse Ox O2 Delivery O2 Flow Rate FiO2 03/04/24 05:29 81 158/75 03/04/24 04:45 81 03/04/24 04:43 98.4 81 158/75 (102) 100 Lab Test 03/04/24 05:00 Range/Units White Blood Count 10.7 4.4-10.8 10^3/uL Red Blood Count 3.90 L 4.5-5.90 10^6/uL Hemoglobin 12.4 L 13.5-17.5 g/dL Hematocrit 37.4 L 41.0-53.0 % Mean Corpuscular Volume 95.8 80.0-100.0 fL Mean Corpuscular Hemoglobin 31.9 28.0-32.0 pg Mean Corpuscular Hemoglobin Concent 33.3 32.0-36.0 g/dL Red Cell Distribution Width 17.2 H 11.8-14.3 % Platelet Count 233 140-450 10^3/uL Mean Platelet Volume 7.1 6.9-10.8 fL Neutrophils (%) (Auto) 78.0 37.0-80.0 % Lymphocytes (%) (Auto) 7.8 L 10.0-50.0 % Monocytes (%) (Auto) 11.5 0.0-12.0 % Eosinophils (%) (Auto) 2.3 0.0-7.0 % Basophils (%) (Auto) 0.4 0.0-2.0 % Neutrophils # (Auto) 8.3 1.6-8.6 10 ^3/uL Lymphocytes # (Auto) 0.8 0.4-5.4 10 ^3/uL Monocytes # (Auto) 1.2 0-1.3 10 ^3/uL Eosinophils # (Auto) 0.2 0-0.8 10 ^3/uL Basophils # (Auto) 0 0-0.2 10 ^3/uL Nucleated Red Blood Cells 0.0 % Prothrombin Time Pending Prothrombin Time INR Pending Sodium Level Pending Potassium Level Pending Chloride Level Pending Carbon Dioxide Level Pending Anion Gap Pending Blood Urea Nitrogen Pending Creatinine Pending Glomerular Filtration Rate Calc Pending BUN/Creatinine Ratio Pending Serum Glucose Pending Calcium Level Pending Total Bilirubin Pending Aspartate Amino Transferase (AST) Pending Alanine Aminotransferase (ALT) Pending Alkaline Phosphatase Pending B-Type Natriuretic Peptide Pending Total Protein Pending Albumin Pending Current Medications Medications (Trade) Dose Ordered Sig/Gerard Route Start Time Stop Time Status Last Admin Hydromorphone HCl (Dilaudid Injection) 1 mg ONCE ONCE IV 03/04/24 05:00 03/04/24 05:01 DC 03/04/24 05:29 Ondansetron HCl (Zofran) 4 mg ONCE ONCE IV 03/04/24 05:00 03/04/24 05:01 DC 03/04/24 05:00 Time of 1ST Reevaluation: 05:12 Reevaluation 1ST: Unchanged Time of 2ND Reevaluation: 05:47 Reevaluation 2ND: Unchanged Patient Education/Counseling: Diagnosis, Treatment, Prognosis Family Education/Counseling: No Family Present Additional Information I reviewed the following notes from patient's past medical encounters: The following tests were ordered, and results were reviewed by me: EKG, CBC, CMP, BNP, XY CHEST, PROTHROMBIN TIME W/ INR, XY LUMBAR SPINE 3 VIEW Additional Information was gathered from interviewing the following independent historians: EMS I reviewed and agreed with the following test results read by other providers: XY LUMBAR SPINE 3 VIEW, XY CHEST I discussed treatment and results with medical personnel and: patient Departure 1 Departure Time of Disposition: 05:50 Impression: Primary Impression: Intractable low back pain Additional Impression: Chronic kidney disease with end stage renal failure on dialysis Disposition: ADMITTED INPATIENT Condition: Guarded Critical Care Note Critical Care Time?: No Stability Stability form required: No Heart Score Heart Score: Heart Score Response (Comments) Value History Slightly Suspicious 0 EKG Normal 0 Age 45-64 1 Risk Factors 1 or 2 risk factors 1 Troponin N/A 0 Total 2 I personally scribed for CYNTHIA HARRINGTON MD ([email or web address]) on 03/04/24 at 04:51. Electronically submitted by Tori Dumont ([email or web address]). I personally scribed for CYNTHIA HARRINGTON MD ([email or web address]) on 03/04/24 at 04:52. Electronically submitted by Tori Dumont ([email or web address]). CYNTHIA HARRINGTON MD Mar 04, 2024 04:51
[2024-03-04] MEDS: ONDANSETRON HCL 4 MG/2 ML VIAL IV ONE (05:00)
[2024-03-04 05:23] LABS: Basophils # (auto) 0 10 ^3/uL (0-0.2); Basophils % (auto) 0.4 % (0.0-2.0); Eosinophils # (auto) 0.2 10 ^3/uL (0-0.8); Eosinophils % (auto) 2.3 % (0.0-7.0); Hematocrit 37.4 % (41.0-53.0); Hemoglobin 12.4 g/dL (13.5-17.5); Lymphocytes # (auto) 0.8 10 ^3/uL (0.4-5.4); Lymphocytes % (auto) 7.8 % (10.0-50.0); Mean Corpuscular Hemoglobin 31.9 pg (28.0-32.0); Mean Corpuscular Hgb Conc. 33.3 g/dL (32.0-36.0); Mean Corpuscular Volume 95.8 fL (80.0-100.0); Monocytes # (auto) 1.2 10 ^3/uL (0-1.3); Monocytes % (auto) 11.5 % (0.0-12.0); Neutrophils # (auto) 8.3 10 ^3/uL (1.6-8.6); Platelet Count (auto) 233 10^3/uL (140-450); Red Cell Distribution Width 17.2 % (11.8-14.3); White Blood Cell 10.7 10^3/uL (4.4-10.8)
[2024-03-04] MEDS: HYDROmorphone HCL 2 MG/ML VL/or syr IV ONE (05:29)
[2024-03-04 05:37] LABS: INR 1.07 (0.9-1.15); Prothrombin Time 11.3 sec (9.3-11.8)
[2024-03-04 05:47] LABS: Alanine Aminotransferase 12 U/L (7-40); Anion Gap 14 (5-15); BUN/Creatinine Ratio 5.7 (10.0-20.0); Calcium 10.2 mg/dL (8.7-10.4)
[2024-03-04 05:48] LABS: Total Protein 6.8 g/dL (5.7-8.2)
--- NOTE | 2024-03-04 05:52 | ECG ---
[facility] Test Date: 2024-03-04 Test Time: 04:45:21 Pat Name: CARLOS KING Department: ER Room: Gender: M Painter Hand: MD : [id number] Requested By: CYNTHIA HARRINGTON Order Number: [id number] Reading MD: Aquiles Hobbs Measurements Intervals Lily Rate: 81 P: 89 VA: 223 QRS: 93 QRSD: 123 T: 39 QT: 405 QTc: 470 Interpretive Statements Sinus rhythm Prolonged VA interval Nonspecific intraventricular conduction delay Electronically Signed On 03-04-2024 14:19:10 PST by Aquiles Hobbs Please click the below link to view image of tracing.
[2024-03-04 06:58] LABS: Sodium 129 mmol/L (136-145)
[2024-03-04 06:59] LABS: Alkaline Phosphatase 135 U/L (46-116); Aspartate Aminotransferase 12 U/L (13-40); Bilirubin, Total 0.2 mg/dL (0.2-1.0); Blood Urea Nitrogen 66 mg/dL (9-23); Carbon Dioxide 20 mmol/L (20-31); Chloride 95 mmol/L (98-107); Glucose 150 mg/dL (74-106)
[2024-03-04 07:00] LABS: Potassium 5.6 mmol/L (3.5-5.1)
[2024-03-04] MEDS: ALBUTEROL SULF 2.5 MG/0.5ML(0.5%) NEB SOLN NEB ONE ×2 (07:10→14:57)
--- NOTE | 2024-03-04 08:02 | DVH ---
CHEST RADIOGRAPH Indication: missed dialysis, SOB Technique: Single frontal view of the chest was obtained Comparison: XY CHEST PORTABLE on DOS: 02/17/24 FINDINGS: Lines and Tubes: None Lungs: No focal consolidation. Pleura: No effusion. Tiny left apical pneumothorax. Possible tiny right apical pneumothorax. Cardiomediastinal contours: Unremarkable Bones: No acute osseous abnormality. IMPRESSION: 1. Tiny left apical pneumothorax. Possible tiny right apical pneumothorax. 2. No evidence of fluid overload or pulmonary consolidation.
--- NOTE | 2024-03-04 08:05 | DVH ---
INDICATION: pain COMPARISON: None TECHNIQUE: 3 views of the lumbar spine were obtained. FINDINGS: The lumbar vertebral alignment is normal. The intervertebral disc spaces are well-maintained. No significant facet arthropathy is noted. No acute fracture or high-grade compression deformity in the lumbar spine. L4 vertebral body is obscu red by contrast in the overlying bowel. Mild anterior wedge compression deformity of T12. The paravertebral soft tissues are grossly unremarkable. IMPRESSION: 1. No acute fracture in the lumbar spine. 2. T12 compression deformity similar to prior CT lumbar spine from 02/24/2024.
[2024-03-04] MEDS: HYDROcodone-ACET 10/325MG TAB PO ONE (08:47)
[2024-03-04] MEDS: DEXTROSE (50%) 50ML SYRG IV ONE ×2 (11:10→15:28)
[2024-03-04] MEDS: SODIUM BICARB 8.4% 50Meq/50ml SYR INJ IV ONE ×2 (11:16→15:36)
[2024-03-04] MEDS: InsuLIN REG 1unit/0.01ml Soln (100units/ml) IV ONE ×2 (11:16→15:35)
[2024-03-04] MEDS: SODIUM ZIRCONIUM CYCL 10 GM PAK PO ONE ×2 (11:18→15:40)
[2024-03-04] MEDS: FUROSEMIDE 20 MG/2 ML VIAL IV ONE (11:19)
[2024-03-04] MEDS: CALCIUM GLUC 1,000mg/50ml-NS 50 ML IV ONE ×2 (11:29→15:12)
[2024-03-04] MEDS ORDERED: AML5T PO (12:41)
[2024-03-04] MEDS ORDERED: FURO1TAB31 PO (12:41)
[2024-03-04] MEDS ORDERED: IRBE300T79 PO (12:42)
[2024-03-04] MEDS: METOPROLOL SUCCINATE XL 50 MG TAB PO ONE (13:54)
[2024-03-04 13:56] LABS: Anion Gap 12 (5-15); Carbon Dioxide 22 mmol/L (20-31)
[2024-03-04 13:57] LABS: Calcium 10.4 mg/dL (8.7-10.4)
[2024-03-04] MEDS ORDERED: SODI10PA PO (13:58)
[2024-03-04 14:08] LABS: Sodium 129 mmol/L (136-145)
[2024-03-04 14:10] LABS: Blood Urea Nitrogen 72 mg/dL (9-23); Chloride 95 mmol/L (98-107); Glucose 157 mg/dL (74-106)
[2024-03-04] MEDS: FUROSEMIDE 40 MG/4 ML VIAL IV ONE (15:40)
--- NOTE | 2024-03-04 18:49 | DVHHP2 ---
History of Present Illness Reason for Visit: Back pain History of Present Illness 59 year old male brought in by EMS presents to the ED with a chief complaint of back pain onset today. Per EMS, patient was at the dialysis center when he began experiencing seizure like activity that lasted about 10 minutes. Patient's last dialysis was 02/28/2024, was not able to get it today due to seizure. Patient is currently experiencing back pain, rates is 10/10 and radiates to bilateral lower extremities. Patient tries to punch himself to distract from pain. Past medical history of ESRD, seizure, CHF, HTN. No other symptoms or modifying factors present at this time. He is evaluated in the ER including labs done. He was noted to be hyperkalemic. Patient has missed his dialysis. Patient recently was in the ER for back pain and had a CT of the lumbar spine showed a DJD without any acute cardiac abnormalities. Patient has a chronic back pain and given pain medications. Past Medical History CHF, ESRD, HTN, Seizures Past Surgical History Appendectomy, Cholecystectomy, PTCA Smoke: No ALCOHOL: rare Lives: with Family Review of Systems Review of Systems Her ER physician patient does not have any complaints no nausea vomiting headache dizziness or lightheadedness. No chest pain shortness for breath. Rest of review of systems normal. Allergies: Coded Allergies: Penicillins (Verified Allergy, Unknown, 09/19/23) Tetanus Toxoid (Verified Allergy, Unknown, 09/19/23) Exam Vital Signs Vital Signs Date Time Temp Pulse Resp B/P (MAP) Pulse Ox O2 Delivery O2 Flow Rate FiO2 03/04/24 15:40 159/68 03/04/24 13:54 65 03/04/24 07:14 16 97 Nasal Cannula* 2 28 03/04/24 06:17 98.2 98.2 Labs/Xrays Labs Test 03/04/24 17:54 03/04/24 15:34 03/04/24 13:17 03/04/24 05:00 Range/Units Potassium Level 4.7 3.5-5.1 mmol/L POC Glucose 253 H 70-106 mg/dl Sodium Level 129 L 136-145 mmol/L Chloride Level 95 L 98-107 mmol/L Carbon Dioxide Level 22 20-31 mmol/L Anion Gap 12 5-15 Blood Urea Nitrogen 72 H 9-23 mg/dL Creatinine 12.10 *H 0.700-1.30 mg/dL Glomerular Filtration Rate Calc 4 >90 mL/min BUN/Creatinine Ratio 6.0 L 10.0-20.0 Serum Glucose 157 H 74-106 mg/dL Calcium Level 10.4 8.7-10.4 mg/dL White Blood Count 10.7 4.4-10.8 10^3/uL Red Blood Count 3.90 L 4.5-5.90 10^6/uL Hemoglobin 12.4 L 13.5-17.5 g/dL Hematocrit 37.4 L 41.0-53.0 % Mean Corpuscular Volume 95.8 80.0-100.0 fL Mean Corpuscular Hemoglobin 31.9 28.0-32.0 pg Mean Corpuscular Hemoglobin Concent 33.3 32.0-36.0 g/dL Red Cell Distribution Width 17.2 H 11.8-14.3 % Platelet Count 233 140-450 10^3/uL Mean Platelet Volume 7.1 6.9-10.8 fL Neutrophils (%) (Auto) 78.0 37.0-80.0 % Lymphocytes (%) (Auto) 7.8 L 10.0-50.0 % Monocytes (%) (Auto) 11.5 0.0-12.0 % Eosinophils (%) (Auto) 2.3 0.0-7.0 % Basophils (%) (Auto) 0.4 0.0-2.0 % Neutrophils # (Auto) 8.3 1.6-8.6 10 ^3/uL Lymphocytes # (Auto) 0.8 0.4-5.4 10 ^3/uL Monocytes # (Auto) 1.2 0-1.3 10 ^3/uL Eosinophils # (Auto) 0.2 0-0.8 10 ^3/uL Basophils # (Auto) 0 0-0.2 10 ^3/uL Nucleated Red Blood Cells 0.0 % Prothrombin Time 11.3 9.3-11.8 sec Prothrombin Time INR 1.07 0.9-1.15 Total Bilirubin 0.2 0.2-1.0 mg/dL Aspartate Amino Transferase (AST) 12 L 13-40 U/L Alanine Aminotransferase (ALT) 12 7-40 U/L Alkaline Phosphatase 135 H 46-116 U/L B-Type Natriuretic Peptide 949.12 0-100 pg/mL Total Protein 6.8 5.7-8.2 g/dL Albumin 4.0 3.2-4.8 g/dL Assessment/Plan Assessment/Plan Patient received pain medication for his chronic pain in the ER. Patient does not require further inpatient hospitalization. This could be managed outpatient basis. Patient is advised to follow-up with PCP and referral to spray i painter and orthopedic as needed. However given his hyperkalemia we will keep him in the ER and correct his hyperkalemia. Once this is currently he can be safely discharged home. I have also talked to patient's on-call motor block mechanic Dr. Benson with [facility] who feels patient does not need immediate dialysis and that he can follow-up outpatient basis with dialysis as he is scheduled 3 times a week. This is discussed with ER physician. Given hyperkalemia is corrected and patient's pain is improved he is being discharged home in stable condition from ER. Plan discussed with: Other (ER physician Dr. Koroma) My Orders Orders - ENDY CORTÉS MD Procedure Category Date Status Time *Dr. [facility] -[facility] CONS 03/04/24 Transmitted Maty 11:40 Communication Order ORDERS 03/04/24 Transmitted 11:43 Communication Order ORDERS 03/04/24 Transmitted 13:54 Renal DIET 03/04/24 Transmitted Standard(2gna,3gk,Lopho) Dinner Problem List: (1) Chronic back pain (2) End stage renal disease on dialysis (3) Hyperkalemia ENDY CORTÉS MD Mar 04, 2024 18:49
[2024-03-04 20:20] VITALS: BP 147/58; TEMP 97.5
[2024-03-04 20:35] VITALS: PULSE 60; RESP 18; O2SAT 98
== END 2024-03-04 20:23 | disposition admitted as inpatient to this hospital (09) ==
LOC: ER 04:34 → EDBD 04:34 → ER 20:23
DX: M54.50 Low back pain, unspecified (principal); I13.2 Hypertensive heart and chronic kidney disease with heart failure and with stage 5 chronic kidney disease, or end stage renal disease; I50.9 Heart failure, unspecified; N18.6 End stage renal disease; Z99.2 Dependence on renal dialysis; Z86.69 Personal history of other diseases of the nervous system and sense organs; Z90.49 Acquired absence of other specified parts of digestive tract; Z79.02 Long term (current) use of antithrombotics/antiplatelets; Z79.899 Other long term (current) drug therapy; Z88.0 Allergy status to penicillin; Z88.7 Allergy status to serum and vaccine
CPT/HCPCS: 36415; 71045; 72100; 80048; 80053; 82962; 83880; 84132; 85025; 85610; 93005; 94640; 96365; 96366; 96375; 96376; 99285; J0613; J1171; J1815; J1940; J2405; J7042

== ENCOUNTER 2024-03-08 08:47 | Inpatient (IN) | payer OTHER, MEDICARE ==
[~2024-03-08] VITALS: Ht 188 cm; Wt 109.8 kg
[~2024-03-08 08:47] MED LIST changes: +AML5T PO; +FURO1TAB31 PO; +IRBE300T79 PO
--- NOTE | 2024-03-08 09:34 | ED.PDOC ---
SOB-HPI HPI Comments 59Y M with PMHx HTN, CHF, COPD, CABG, and ESRD presents to ED via EMS for chief complaint SOB x4hrs with chest pain and edema. Pt denies n/v/d. Pt describes chest pain as something sitting on his chest. Per EMS, pt has rales on the lower lobes and he slightly improved after taking NTG. Upon ED arrival, O2 sat 90% on 6L/min O2. Pt takes Lasix and is unsure if he has used a bipap before. Chief Complaint: Shortness of Breath Time Seen by MD: 09:18 Primary Care Provider: UNKNOWN Reviewed notes: Nurses Notes, Adjutant General Notes, Medications, Allergies Information Source: Patient, Emergency Med Personnel Mode of Arrival: EMS Brought in by: EMS Severity: Moderate Timing: Hours Duration: Since onset Context: At Rest PE Risk Factors: None History of: COPD, CHF Prehospital treatment: 12 Lead EKG, ASA, Breathing Tx, NTG Modifying Factors: Nothing Associated Signs and Symptoms: Chest Pain, Other Quality: Heavy Radiation: No Radiation Past Medical History PAST MEDICAL HISTORY: CHF, COPD, ESRD, HTN, Seizures Surgical History: Appendectomy, CABG, Cholecystectomy, PTCA Family History Family History: Reviewed,noncontributory to illness, No family hx of Cancer, No family hx of DM, No family hx of Heart [place], No family hx of HTN, No family hx ofKidney [place], No family hx of Liver [place], No family hx of Lung [place], No family hx of Stroke Social History Smoker: Cigarettes, Greater Than 1 Pack/Day Alcohol: Occasionally Drugs: Denies Drug Use Lives In: Home Constitutional: denies: chills, diaphoresis, fatigue, fever, malaise, sweats, weakness, others EENTM: denies: blurred vision, double vision, ear bleeding, ear discharge, ear drainage, ear pain, ear ringing, eye pain, eye redness, hearing loss, mouth pain, mouth swelling, nasal discharge, nose bleeding, nose congestion, nose pain, photophobia, tearing, throat pain, throat swelling, voice changes, others Respiratory: reports: shortness of breath; denies: cough, hemoptysis, orthopnea, SOB at rest, SOB with excertion, stridor, wheezing, others Cardiovascular: reports: chest pain, edema; denies: dizzy spells, diaphoresis, Dyspnea on exertion, irregular heart beat, left arm pain, lightheadedness, palpitations, PND, syncope, others Gastrointestinal: denies: abdomen distended, abdominal pain, blood streaked bowels, constipated, diarrhea, dysphagia, difficulty swallowing, hematemesis, melena, nausea, poor appetite, poor fluid intake, rectal bleeding, rectal pain, vomiting, others Genitourinary: denies: burning, dysuria, flank pain, frequency, hematuria, incontinence, penile discharge, penile sore, pain, testicle pain, testicle swelling, urgency, others Neurological: denies: dizziness, fainting, headache, left sided numbness, left sided weakness, numbness, paresthesia, pre-existing deficit, right sided numbness, right sided weakness, seizure, speech problems, tingling, tremors, weakness, others Musculoskeletal: denies: back pain, gout, joint pain, joint swelling, muscle pain, muscle stiffness, neck pain, others Integumetry: denies: bruises, change in color, change in hair/nails, dryness, laceration, lesions, lumps, rash, wounds, others Allergic/Immunocompromised: denies: Difficulty Healing, Frequent Infections, Hives, Itching, others Hematologic/Lymphatic: denies: anemia, blood clots, easy bleeding, easy bruising, swollen glands, others Endocrine: denies: excessive hunger, excessive sweating, excessive thirst, excessive urination, flushing, intolerance to cold, intolerance to heat, unexplained weight gain, unexplained weight loss, others Psychiatric: denies: anxiety, bipolar disorder, depression, hopeless, panic disorder, schizophrenia, sleepless, suicidal, others All Other Systems: Reviewed and Negative Physical Exam General Appearance: No Apparent Distress, Normal HEENT: Normal ENT Inspection, Pharynx Normal, TMs Normal Neck: Full Range of Motion, Non-Tender, Normal, Normal Inspection Respiratory: Chest Non-Tender, Lungs Clear, No Accessory Muscle Use, No Respiratory Distress, Normal Breath Sounds Cardiovascular: No JVD, No Murmur, No Gallop, Normal Peripheral Pulses, Regular Rate/Rhythm Breast Exam: Deferred Gastrointestinal: No Organomegaly, Non Tender, No Pulsatile Mass, Normal Bowel Sounds, Soft Genitalia: Deferred Pelvic: Deferred Rectal: Deferred Extremities: No calf tenderness, Normal capillary refill, Normal inspection, Normal range of motion, Non-tender, No pedal edema Musculoskeletal : Apperance: Normal Neurologic: Alert, uncrater II-XII nml as Tested, No Motor Deficits, Normal Affect, Normal Mood, No Sensory Deficits Cerebellar Function: NOT DONE Reflexes: NOT DONE Skin: Dry, Normal Color, Warm Lymphatic: No Adenopathy Was a procedure done? Was a procedure done?: No Differential Dx Differential Diagnosis: CHF, COPD X-Ray, Labs, Meds, VS Vital Signs Date Time Temp Pulse Resp B/P (MAP) Pulse Ox O2 Delivery O2 Flow Rate FiO2 03/08/24 09:54 156/60 03/08/24 08:54 79 03/08/24 08:47 Simple Mask* 6 50 03/08/24 08:47 97.6 91 23 151/75 (100) 90 Lab Test 03/08/24 10:26 03/08/24 09:40 03/08/24 09:36 Range/Units Troponin I High Sensitivity Pending 17 </=54 ng/L Influenza Type A Antigen Pending Influenza Type B Antigen Pending SARS-CoV-2 Antigen (Rapid) Pending White Blood Count 14.8 #H 4.4-10.8 10^3/uL Red Blood Count 3.69 L 4.5-5.90 10^6/uL Hemoglobin 11.6 L 13.5-17.5 g/dL Hematocrit 35.3 L 41.0-53.0 % Mean Corpuscular Volume 95.7 80.0-100.0 fL Mean Corpuscular Hemoglobin 31.4 28.0-32.0 pg Mean Corpuscular Hemoglobin Concent 32.8 32.0-36.0 g/dL Red Cell Distribution Width 17.3 H 11.8-14.3 % Platelet Count 254 140-450 10^3/uL Mean Platelet Volume 7.2 6.9-10.8 fL Neutrophils (%) (Auto) 85.1 H 37.0-80.0 % Lymphocytes (%) (Auto) 6.2 L 10.0-50.0 % Monocytes (%) (Auto) 6.9 0.0-12.0 % Eosinophils (%) (Auto) 1.2 0.0-7.0 % Basophils (%) (Auto) 0.6 0.0-2.0 % Neutrophils # (Auto) 12.6 H 1.6-8.6 10 ^3/uL Lymphocytes # (Auto) 0.9 0.4-5.4 10 ^3/uL Monocytes # (Auto) 1.0 0-1.3 10 ^3/uL Eosinophils # (Auto) 0.2 0-0.8 10 ^3/uL Basophils # (Auto) 0.1 0-0.2 10 ^3/uL Nucleated Red Blood Cells 0.0 % Sodium Level 131 L 136-145 mmol/L Potassium Level 6.1 *H 3.5-5.1 mmol/L Chloride Level 95 L 98-107 mmol/L Carbon Dioxide Level 27 20-31 mmol/L Anion Gap 9 5-15 Blood Urea Nitrogen 62 H 9-23 mg/dL Creatinine 9.65 #H 0.700-1.30 mg/dL Glomerular Filtration Rate Calc 6 >90 mL/min BUN/Creatinine Ratio 6.4 L 10.0-20.0 Serum Glucose 171 H 74-106 mg/dL Calcium Level 10.1 8.7-10.4 mg/dL B-Type Natriuretic Peptide 1566.16 0-100 pg/mL Current Medications Medications (Trade) Dose Ordered Sig/Gerard Route Start Time Stop Time Status Last Admin Furosemide (Lasix Injection) 40 mg ONCE ONCE IV 03/08/24 09:30 03/08/24 09:31 DC 03/08/24 09:54 [place] [id number] Ph: [phone] DIAGNOSTIC IMAGING Diagnostic Imaging Report : [id number] Signed PATIENT: CARLOS KING ACCT: [id number] UNIT: [id number] : 1965 LOC: ER ROOM / BED: / AGE / SEX: 59 / M ADM STATUS: REG ER SERVICE 0 ORDERING PHYSICIAN: NIA RODRIGUEZ MD PROCEDURE(s): CXRP - CHEST PORTABLE REASON: sob ORDER NUMBER(s): [id number], ACCESSION NUMBER(s): [id number] EXAM: XY CHEST PORTABLE Indication: sob Technique: Single frontal view of the chest was obtained Comparison: XY CHEST PORTABLE on DOS: 03/04/24, XY CHEST PORTABLE on DOS: 02/17/24, XY CHEST PORTABLE on DOS: 08/13/23 FINDINGS: Lines and Tubes: Endotracheal tube projects 7 cm above the toñito. Lungs: Multifocal airspace opacities. Pleura: No effusion. No pneumothorax. Cardiomediastinal contours: Unremarkable Bones: No acute osseous abnormality. IMPRESSION: Worsening multifocal airspace opacities in the bilateral lungs. ATED BY: KRISTY POWELL MD DICTATED DATE/TIME: 03/08/24946 SIGNED BY: KRISTY POWELL MD SIGNED DATE/TIME: 03/08/24946 CC: Time of 1ST Reevaluation: 09:48 Reevaluation 1ST: Unchanged Patient Education/Counseling: Diagnosis, Treatment Family Education/Counseling: No Family Present Departure 1 Departure Time of Disposition: 10:46 (Patient with a worsening shortness of breath and hyperkalemia. We will admit patient for further workup and dialysis) Impression: Primary Impression: Hyperkalemia Additional Impressions: Shortness of breath Missed dialysis Disposition: ADMITTED INPATIENT Admit to: Med Surg Condition: Serious Critical Care Note Critical Care Time?: Yes Critical care comment: Acute hyperkalemia Authorized and Performed by: Nia Rodriguez MD Total critical care time: Approximately 31 minutes Due to a high probability of clinically significant, life threatening deterioration, the patient required my highest level of preparedness to intervene emergently and I personally spent this critical care time directly and personally managing the patient. This critical care time included obtaining a history; examining the patient; pulse oximetry; ordering and review of studies; arranging urgent treatment with development of a management plan; evaluation of patient's response to treatment; frequent reassessment; and, discussions with other providers. This critical care time was performed to assess and manage the high probability of imminent, life-threatening deterioration that could result in multi-organ failure. It was exclusive of separately billable procedures and treating other patients and teaching time. Please see my other sections and the rest of the note for further information on patient assessment and treatment. Stability Stability form required: No Heart Score Heart Score: Heart Score Response (Comments) Value History N/A 0 EKG N/A 0 Age N/A 0 Risk Factors N/A 0 Troponin N/A 0 Total 0 I personally scribed for NIA RODRIGUEZ MD ([email or web address]) on 1/2/25 at 09:34. Electronically submitted by Maxine Tarango ([facility]). I personally scribed for NIA RODRIGUEZ MD ([email or web address]) on 03/08/24 at 10:17. Electronically submitted by Maxine Tarango ([facility]). NIA RODRIGUEZ MD Mar 08, 2024 09:34
[2024-03-08 09:40] VITALS: PULSE 79; RESP 20; O2SAT 87
--- NOTE | 2024-03-08 09:48 | DVH ---
EXAM: XY CHEST PORTABLE Indication: sob Technique: Single frontal view of the chest was obtained Comparison: XY CHEST PORTABLE on DOS: 03/04/24, XY CHEST PORTABLE on DOS: 02/17/24, XY CHEST PORTABLE on DOS: 08/13/23 FINDINGS: Lines and Tubes: Endotracheal tube projects 7 cm above the toñito. Lungs: Multifocal airspace opacities. Pleura: No effusion. No pneumothorax. Cardiomediastinal contours: Unremarkable Bones: No acute osseous abnormality. IMPRESSION: Worsening multifocal airspace opacities in the bilateral lungs.
[2024-03-08 09:53] LABS: Basophils # (auto) 0.1 10 ^3/uL (0-0.2); Basophils % (auto) 0.6 % (0.0-2.0); Eosinophils # (auto) 0.2 10 ^3/uL (0-0.8); Eosinophils % (auto) 1.2 % (0.0-7.0); Hematocrit 35.3 % (41.0-53.0); Hemoglobin 11.6 g/dL (13.5-17.5); Lymphocytes # (auto) 0.9 10 ^3/uL (0.4-5.4); Lymphocytes % (auto) 6.2 % (10.0-50.0); Mean Corpuscular Hemoglobin 31.4 pg (28.0-32.0); Mean Corpuscular Hgb Conc. 32.8 g/dL (32.0-36.0); Mean Corpuscular Volume 95.7 fL (80.0-100.0); Monocytes % (auto) 6.9 % (0.0-12.0); Neutrophils # (auto) 12.6 10 ^3/uL (1.6-8.6); Neutrophils % (auto) 85.1 % (37.0-80.0); Platelet Count (auto) 254 10^3/uL (140-450); Red Blood Cells 3.69 10^6/uL (4.5-5.90); Red Cell Distribution Width 17.3 % (11.8-14.3); White Blood Cell 14.8 10^3/uL (4.4-10.8)
[2024-03-08] MEDS: FUROSEMIDE 40 MG/4 ML VIAL IV ONE (09:54)
[2024-03-08 10:15] LABS: Anion Gap 9 (5-15); Calcium 10.1 mg/dL (8.7-10.4); Carbon Dioxide 27 mmol/L (20-31)
[2024-03-08 10:20] LABS: BUN/Creatinine Ratio 6.4 (10.0-20.0)
[2024-03-08 10:35] LABS: Blood Urea Nitrogen 62 mg/dL (9-23); Chloride 95 mmol/L (98-107); Glucose 171 mg/dL (74-106); Sodium 131 mmol/L (136-145)
[2024-03-08 10:42] LABS: Potassium 6.1 mmol/L (3.5-5.1)
[2024-03-08 10:56] LABS: COVID19 ANTIGEN SOFIA FIA NEGATIVE (NEGATIVE); Rapid Influenza A Negative (Negative); Rapid Influenza B Negative (Negative)
[2024-03-08] MEDS: CALCIUM GLUC 1,000mg/50ml-NS 50 ML IV SCH (11:08)
[2024-03-08] MEDS: SODIUM BICARB 8.4% 50Meq/50ml SYR Vial IV ONE (11:58)
[2024-03-08] MEDS: ALBUTEROL SULF 2.5 MG/0.5ML(0.5%) NEB SOLN NEB ONE (12:35)
[2024-03-08] MEDS: DEXTROSE (50%) 50ML SYRG IV ONE (12:56)
[2024-03-08] MEDS: SODIUM ZIRCONIUM CYCL 10 GM PAK PO ONE (12:56)
[2024-03-08] MEDS: InsuLIN REG 1unit/0.01ml Soln (100units/ml) IV ONE (12:57)
[2024-03-08 14:15] LABS: Base Excess 1.6 mmol/L (-2.0-3.0)
[2024-03-08 15:50] LABS: Anion Gap 12 (5-15); BUN/Creatinine Ratio 6.2 (10.0-20.0); Calcium 10.3 mg/dL (8.7-10.4); Carbon Dioxide 25 mmol/L (20-31)
[2024-03-08 15:58] LABS: Blood Urea Nitrogen 59 mg/dL (9-23); Chloride 95 mmol/L (98-107); Glucose 174 mg/dL (74-106); Potassium 5.4 mmol/L (3.5-5.1); Sodium 132 mmol/L (136-145)
--- NOTE | 2024-03-08 16:27 | DVHINCON2 ---
Date of service: Mar 08, [address] Collins Reason for Consultation Dialysis History of Present Illness 59 Y/O M with history of ESRD on HD via Lt forearm AVF, DM,HTN, CAD s/p stents, CHF, and chronic pain presented with chief complaint of SOB, and chest pain. Patient was initially placed on supplemental oxygen via nasal cannula , then changed to BiPAP. Patient is hypertensive with systolic blood pressure in 160s mmHg. CXR shows multifocal opacities in bilateral lungs. Labs show negative serial troponin. K is 6.1 mmol/l, WBC is 14. Tested negative for Influenza A,B, and COVID-19. Nephrology consulted for dialysis Past Medical History ESRD DM HTN Anemia Past Surgical History AVF creation. Allergies: Coded Allergies: Penicillins (Verified Allergy, Unknown, 09/19/23) Tetanus Toxoid (Verified Allergy, Unknown, 09/19/23) Home Meds Active Scripts Sodium Zirconium Cyclosilicate (Lokelma) 10 Gm Hernandez, 10 GM PO DAILY, #10 PACK Prov:ENDY CORTÉS MD 03/04/24 Clopidogrel Bisulfate (CLOPIDOGREL) 75 Mg Tab, 75 MG PO DAILY for 30 Days, #30 TAB Prov:LEÓN COLLINS MD 08/16/23 Reported Medications Irbesartan (Avapro) 300 Mg Tab, 1 TAB PO DAILY, #30 TAB 5 Refills 03/04/24 Furosemide (Lasix) 40 Mg Tab, 40 MG PO DAILY, TAB 03/04/24 Amlodipine Besylate (NORVASC TABLET) 5 Mg Tb, 2 TAB PO DAILY, #30 TAB 5 Refills 03/04/24 Isosorbide Mononitrate (Isosorbide Mononitrate Er) 30 Mg Tab, 30 MG PO DAILY for CAD, MG 09/19/23 Insulin Glargine (Basaglar Kwikpen) 100 Unit/Ml Inj, 100 UNIT SC for DIABETES, INJ 09/19/23 Calcium Acetate (Phosphate Bin (Calcium Acetate) 667 Mg Cap, 667 MG PO TIDWM for DIALYSIS, MG 09/19/23 Sodium Zirconium Cyclosilicate (Lokelma) 5 Gm Hernandez, 5 GM PO DAILY for HYPERKALEMIA, PACK 09/19/23 Atorvastatin Calcium (ATORVASTATIN CALCIUM) 40 Mg Tab, 1 TAB PO DAILY for HIGH CHOLESTEROL, #30 TAB 5 Refills 09/19/23 Ltiruntwzi-Jrddfnqxfxhsda-Hgqc (Breztri Aerosphere 160-9-4.8 Mcg/Act) 1 Aer Aer, 1 AER IN BID for COPD, AER 09/19/23 Albuterol Sulfate (Ventolin) 2.5 Mg/3 Ml Nb, 2.5 MG NEB Q4HP PRN for SHORTNESS OF BREATH, INH 09/19/23 Ranolazine (Ranolazine ER) 500 Mg Tab, 500 MG PO BID for CAD, TAB 09/19/23 Metoprolol Succinate (Metoprolol Succinate Er) 200 Mg Tab, 1 TAB PO DAILY for HTN 08/16/23 Diazepam (VALIUM TABLET) 5 Mg Tb, 5 MG GT PRN PRN for ANXIETY, TAB 08/14/23 Hydralazine Hcl (Hydralazine Hcl) 100 Mg Tab, 1 TAB PO TID, #90 TAB 5 Refills 08/14/23 Gabapentin (Gabapentin) 100 Mg Cap, 1 CAP PO TID, #90 CAP 2 Refills 08/14/23 Pantoprazole Sodium Sesquihydr (Protonix) 40 Mg Tab, 40 MG PO QAM, #30 TAB 08/14/23 Aspirin (Aspir-81) 81 Mg Tab, 1 TAB PO QAM, #30 TAB 5 Refills 08/14/23 Allopurinol (ZYLOPRIM TABLET) 100 Mg Tb, 1 TAB PO QAM, #30 TAB 5 Refills 08/14/23 Current Medications Current Medications Medications (Trade) Dose Ordered Sig/Gerard Route PRN Reason Start Time Stop Time Status Last Admin Calcium Gluconate/ Sodium Chloride 50 ml @ 100 mls/hr Q30M IV 03/08/24 10:45 03/08/24 11:44 DC 03/08/24 11:53 Family History: Diabetes mellitus G8 MOTHER, Onset:Unknown G8 FATHER, Onset:Unknown Hypertension G8 FATHER, Onset:Unknown Review of Systems As per HPI, all other systems were reviewed and are negative H&P Exam Vital Signs/I&O Vital Sign Date Time Temp Pulse Resp B/P (MAP) Pulse Ox O2 Delivery O2 Flow Rate FiO2 03/08/24 12:35 20 94 Bi-Pap+ 60 60 03/08/24 12:35 81 166/69 03/08/24 09:40 8 03/08/24 08:47 97.6 Physical Exam Gen: NAD, on BiPAP HEENT: NC, AT Lungs: Crackles lung bases Cardiac: RRR, no murmur Abd: soft, no tenderness Ext: no edema + Left arm AVF Labs/Diagnostic Data Labs/Diagnostic Data Laboratory Tests Test 03/08/24 14:10 03/08/24 13:34 03/08/24 12:50 03/08/24 10:26 Range/Units Blood Gas Specimen Type Arterial Blood Gas Sample Site Right radial Blood Gas Patient Temperature 37.0 Arterial Blood Date Drawn [id number] Arterial Blood pH 7.441 7.350-7.450 Arterial Blood Partial Pressure CO2 38.7 35.0-48.0 mmHg Arterial Blood Partial Pressure O2 73.7 L 83.0-108.0 mmHg Arterial Blood HCO3 25.8 21.0-28.0 mmol/L Arterial Blood Oxygen Saturation 93.4 L 94.0-98.0 % Arterial Blood Base Excess 1.6 -2.0-3.0 mmol/L Arterial Blood Oxyhemoglobin 91.8 L 94.0-98.0 % Arterial Blood Carboxyhemoglobin 1.4 0.5-1.5 % Arterial Blood Methemoglobin 0.3 0.0-1.5 % Benson Test Yes Blood Gas Total Hemoglobin 11.40 L 13.5-17.5 g/dL Blood Gas Set Respiration Rate 12.0 Blood Gas Modality Mask - bipap FiO2 % 60.0 Blood Gas EPAP 6 Blood Gas IPAP 12 Sodium Level 132 L 136-145 mmol/L Potassium Level 5.4 H 3.5-5.1 mmol/L Chloride Level 95 L 98-107 mmol/L Carbon Dioxide Level 25 20-31 mmol/L Anion Gap 12 5-15 Blood Urea Nitrogen 59 H 9-23 mg/dL Creatinine 9.59 H 0.700-1.30 mg/dL Glomerular Filtration Rate Calc 6 >90 mL/min BUN/Creatinine Ratio 6.2 L 10.0-20.0 Serum Glucose 174 H 74-106 mg/dL Calcium Level 10.3 8.7-10.4 mg/dL Troponin I High Sensitivity 18 16 </=54 ng/L POC Glucose 133 H 70-106 mg/dl Test 03/08/24 09:40 03/08/24 09:36 Range/Units Influenza Type A Antigen Negative Negative Influenza Type B Antigen Negative Negative SARS-CoV-2 Antigen (Rapid) Negative NEGATIVE White Blood Count 14.8 #H 4.4-10.8 10^3/uL Red Blood Count 3.69 L 4.5-5.90 10^6/uL Hemoglobin 11.6 L 13.5-17.5 g/dL Hematocrit 35.3 L 41.0-53.0 % Mean Corpuscular Volume 95.7 80.0-100.0 fL Mean Corpuscular Hemoglobin 31.4 28.0-32.0 pg Mean Corpuscular Hemoglobin Concent 32.8 32.0-36.0 g/dL Red Cell Distribution Width 17.3 H 11.8-14.3 % Platelet Count 254 140-450 10^3/uL Mean Platelet Volume 7.2 6.9-10.8 fL Neutrophils (%) (Auto) 85.1 H 37.0-80.0 % Lymphocytes (%) (Auto) 6.2 L 10.0-50.0 % Monocytes (%) (Auto) 6.9 0.0-12.0 % Eosinophils (%) (Auto) 1.2 0.0-7.0 % Basophils (%) (Auto) 0.6 0.0-2.0 % Neutrophils # (Auto) 12.6 H 1.6-8.6 10 ^3/uL Lymphocytes # (Auto) 0.9 0.4-5.4 10 ^3/uL Monocytes # (Auto) 1.0 0-1.3 10 ^3/uL Eosinophils # (Auto) 0.2 0-0.8 10 ^3/uL Basophils # (Auto) 0.1 0-0.2 10 ^3/uL Nucleated Red Blood Cells 0.0 % Sodium Level 131 L 136-145 mmol/L Potassium Level 6.1 *H 3.5-5.1 mmol/L Chloride Level 95 L 98-107 mmol/L Carbon Dioxide Level 27 20-31 mmol/L Anion Gap 9 5-15 Blood Urea Nitrogen 62 H 9-23 mg/dL Creatinine 9.65 #H 0.700-1.30 mg/dL Glomerular Filtration Rate Calc 6 >90 mL/min BUN/Creatinine Ratio 6.4 L 10.0-20.0 Serum Glucose 171 H 74-106 mg/dL Calcium Level 10.1 8.7-10.4 mg/dL Troponin I High Sensitivity 17 </=54 ng/L B-Type Natriuretic Peptide 1566.16 0-100 pg/mL Assessment Assessment: ESRD on HD via Lt forearm AVF Hyperkalemia Acute hypoxic respiratory failure on BiPAP Acute on chronic diastolic CHF DM HTN CAD s/p stents Anemia of CKD Metabolic acidosis Hyperphosphatemia Secondary hyperparathyroidism Leukocytosis Hyponatremia Plan: last dialysis [facility] at [facility] on Tue03/06/24. I have scheduled him for urgent dialysis Hyperkalemia treated medically already, repeat K has improved. NEVAEH post HD as needed. goal Hb: 10-11 g/dl Plan discussed with: Patient ROSEANN DUBOSE MD Mar 08, 2024 16:27
[2024-03-08] MEDS ORDERED: DOXYCYCLINE 100MG/250ML 250 ML IV ONE ×2 (16:45→21:30)
[2024-03-08] MEDS ORDERED: NITROGLYCERIN 0.4 MG SL TAB SL PRN (16:45)
[2024-03-08] MEDS ORDERED: ACETAMINOPHEN 325 MG TAB PO PRN (16:45)
[2024-03-08] MEDS ORDERED: MORPHINE SULFATE INJ 2 MG/ml SYRG IV PRN (16:45)
[2024-03-08 17:44] VITALS: BP 156/60; PULSE 85; RESP 18; O2SAT 95
[2024-03-08 18:20] VITALS: BP 181/80; PULSE 85; O2SAT 91
[2024-03-08] MEDS: MORPHINE SULFATE INJ 2 MG/ml SYRG IV PRN (19:08)
[2024-03-08 19:40] VITALS: PULSE 89; RESP 16; O2SAT 94
[2024-03-08] MEDS ORDERED: VANCOMYCIN PER PHARMACY 0 MG IV SCH (21:00)
--- NOTE | 2024-03-08 22:17 | DVHINCON2 ---
History of Present Illness This is a 59-year-old male history of end-stage renal disease on hemodialysis, diabetes, hypertension, coronary artery disease with stents, congestive heart failure, chills, and chronic pain presented with shortness of breath and chest Tightness. Despite trying home inhalers/ nebulizers patient did not find any relief that led him to come to the ED for further evaluation and treatment. Initially placed on supplemental oxygen via nasal cannula, he was later switched to BiPAP. He was hypertensive with a systolic blood pressure in the 160s mmHg. Chest X-ray revealed multifocal opacities in both lungs. He tested negative for Influenza A, B, and COVID-19. Nephrology was consulted for dialysis. Patient was accompanied by the [facility], parallel history was taken. The patient was admitted to the hospital 4th time for similar attacks in past 1 month, likely progressive COPD, normal S1,S2 heard. no murmurs heard. peripheral pulses normal radial 2+, pedal 2+. capillary refill normal <2 secs. Worsening multifocal airspace opacities in the bilateral lungs. Patient ment ions up-to-date with his immunizations to COVID, influenza, pneumococcal vaccines. Past Medical History Past medical history: ESRD, CAD s/p PTCA, HTN, CHF, HFrEF, Chronic back pain, COPD, DDD, history of polysubstance abuse. Cardiovascular: CAD, CHF Pulmonary: COPD, Pneumonia GI: Constipation Heme/Onc: Anemia NOS Psych: Anxiety, Psychosis, Schizophrenia Musculoskeletal: Chronic low back pain, Osteoarthritis Renal/: Chronic renal insuff, Other (ESRD) Endocrine: Diabetes Dermatology: Other (Skin abcess. ) Past Surgical History Past Surgical History CAD s/p PTCA. 7 stents. Family History: Diabetes mellitus G8 MOTHER, Onset:Unknown G8 FATHER, Onset:Unknown Hypertension G8 FATHER, Onset:Unknown Family History Family History From paternal side patient has a history of prostate cancer. From maternal side patient has a history of hypertension, diabetes, CHF. Social History Smoke: # pack years (60 approximately, present smoker) Reports smoke pain 4-5 cigarettes daily, occasional alcohol, drug use previously. ALCOHOL: occassional Drugs: Other (Previously on cocaine and methamphetamine among other drugs, but never tried IV drugs.) Lives: with Family Domestic Violence: Neg Allergies: Coded Allergies: Penicillins (Verified Allergy, Unknown, 09/19/23) Tetanus Toxoid (Verified Allergy, Unknown, 09/19/23) Home Meds Active Scripts Sodium Zirconium Cyclosilicate (Lokelma) 10 Gm Hernandez, 10 GM PO DAILY, #10 PACK Prov:ENDY CORTÉS MD 03/04/24 Clopidogrel Bisulfate (CLOPIDOGREL) 75 Mg Tab, 75 MG PO DAILY for 30 Days, #30 TAB Prov:LEÓN COLLINS MD 08/16/23 Reported Medications Irbesartan (Avapro) 300 Mg Tab, 1 TAB PO DAILY, #30 TAB 5 Refills 03/04/24 Furosemide (Lasix) 40 Mg Tab, 40 MG PO DAILY, TAB 03/04/24 Amlodipine Besylate (NORVASC TABLET) 5 Mg Tb, 2 TAB PO DAILY, #30 TAB 5 Refills 03/04/24 Isosorbide Mononitrate (Isosorbide Mononitrate Er) 30 Mg Tab, 30 MG PO DAILY for CAD, MG 09/19/23 Insulin Glargine (Basaglar Kwikpen) 100 Unit/Ml Inj, 100 UNIT SC for DIABETES, INJ 09/19/23 Calcium Acetate (Phosphate Bin (Calcium Acetate) 667 Mg Cap, 667 MG PO TIDWM for DIALYSIS, MG 09/19/23 Sodium Zirconium Cyclosilicate (Lokelma) 5 Gm Hernandez, 5 GM PO DAILY for HYPERKALEMIA, PACK 09/19/23 Atorvastatin Calcium (ATORVASTATIN CALCIUM) 40 Mg Tab, 1 TAB PO DAILY for HIGH CHOLESTEROL, #30 TAB 5 Refills 09/19/23 Kcnfawbxwa-Wutzxsjikjedrb-Ikmf (Breztri Aerosphere 160-9-4.8 Mcg/Act) 1 Aer Aer, 1 AER IN BID for COPD, AER 09/19/23 Albuterol Sulfate (Ventolin) 2.5 Mg/3 Ml Nb, 2.5 MG NEB Q4HP PRN for SHORTNESS OF BREATH, INH 09/19/23 Ranolazine (Ranolazine ER) 500 Mg Tab, 500 MG PO BID for CAD, TAB 09/19/23 Metoprolol Succinate (Metoprolol Succinate Er) 200 Mg Tab, 1 TAB PO DAILY for HTN 08/16/23 Diazepam (VALIUM TABLET) 5 Mg Tb, 5 MG GT PRN PRN for ANXIETY, TAB 08/14/23 Hydralazine Hcl (Hydralazine Hcl) 100 Mg Tab, 1 TAB PO TID, #90 TAB 5 Refills 08/14/23 Gabapentin (Gabapentin) 100 Mg Cap, 1 CAP PO TID, #90 CAP 2 Refills 08/14/23 Pantoprazole Sodium Sesquihydr (Protonix) 40 Mg Tab, 40 MG PO QAM, #30 TAB 08/14/23 Aspirin (Aspir-81) 81 Mg Tab, 1 TAB PO QAM, #30 TAB 5 Refills 08/14/23 Allopurinol (ZYLOPRIM TABLET) 100 Mg Tb, 1 TAB PO QAM, #30 TAB 5 Refills 08/14/23 Current Medications Current Medications Medications (Trade) Dose Ordered Sig/Gerard Route PRN Reason Start Time Stop Time Status Last Admin Calcium Gluconate/ Sodium Chloride 50 ml @ 100 mls/hr Q30M IV 03/08/24 10:45 03/08/24 11:44 DC 03/08/24 11:53 Acetaminophen/ Hydrocodone Bitart (Stanford 5/325MG Tab) 1 tab Q4HP PRN PO MODERATE PAIN (4-6 PAIN SCALE) 03/08/24 16:45 Ondansetron HCl (Zofran) 4 mg Q4HP PRN IV NAUSEA / VOMITING 03/08/24 16:45 Acetaminophen (Tylenol Tablet) 650 mg Q6HP PRN PO PAIN SCALE 1-3 OR TEMP>100.4 03/08/24 16:45 Morphine Sulfate 2 mg Q4HPRN PRN IV SEVERE PAIN (7-10 PAIN SCALE) 03/08/24 16:45 03/08/24 19:08 Nitroglycerin (Ntrostat Sublingual) 0.4 mg Q5MINP PRN SL FOR CHEST PAIN 03/08/24 16:45 Morphine Sulfate 2 mg Q30M PRN IV FOR CHEST PAIN 03/08/24 16:45 Vancomycin HCl 0 ml @ 0 mls/hr UD IV 03/08/24 21:00 UNV Cefepime HCl 50 ml @ 12.5 mls/hr DAILY IV 03/09/24 10:00 UNV Review of Systems Constitutional: Yes: Chills, Malaise ENT: Nose congestion Respiratory: Cough, Dry, Shortness of breath, Wheezing, Wheezing Cardiovascular: Paroxysmal Noc. Dyspnea, Edema Gastrointestinal: Constipation Musculoskeletal: back pain Neurological: Seizures, Other Vital Signs Vital Signs Date Time Temp Pulse Resp B/P (MAP) Pulse Ox O2 Delivery O2 Flow Rate FiO2 03/08/24 20:00 91 03/08/24 19:50 16 181/74 03/08/24 19:40 94 Bi-Pap+ 60 60 03/08/24 19:40 98.7 98.7 03/08/24 09:40 8 Physical Exam General Appearance: Alert, Oriented X3, moderate distress, Other (facial richardson. ) HEENT: Atraumatic, PERRLA, EOMI, Mucous membr. moist/pink Respiratory: Other (b/l cracles right more than left. incresed expiratory phase. use of accessory muscles when off of BiPAP. ) Cardiovascular: Regular rate, Normal S1, Normal S2, No murmurs Abdominal: Normal bowel sounds, Soft, No tenderness, No hepatospenomegaly, No masses Extremities: No cyanosis, Normal pulses Skin: No rashes, No breakdown, No significant lesion (patient has multiple healed suture ellis in the back. ) Neuro: Normal gait, Normal speech, Strength at 5/5 X4 ext, Normal tone, Sensation intact, Cranial nerves 3-12 NL Psych/Mental Status: Other (has history of schizophrenia, reported visual hallucination. ) Labs/Diagnostic Data Labs Test 03/08/24 14:10 03/08/24 13:34 03/08/24 12:50 03/08/24 09:40 Range/Units Blood Gas Specimen Type Arterial Blood Gas Sample Site Right radial Blood Gas Patient Temperature 37.0 Arterial Blood Date Drawn [id number] Arterial Blood pH 7.441 7.350-7.450 Arterial Blood Partial Pressure CO2 38.7 35.0-48.0 mmHg Arterial Blood Partial Pressure O2 73.7 L 83.0-108.0 mmHg Arterial Blood HCO3 25.8 21.0-28.0 mmol/L Arterial Blood Oxygen Saturation 93.4 L 94.0-98.0 % Arterial Blood Base Excess 1.6 -2.0-3.0 mmol/L Arterial Blood Oxyhemoglobin 91.8 L 94.0-98.0 % Arterial Blood Carboxyhemoglobin 1.4 0.5-1.5 % Arterial Blood Methemoglobin 0.3 0.0-1.5 % Benson Test Yes Blood Gas Total Hemoglobin 11.40 L 13.5-17.5 g/dL Blood Gas Set Respiration Rate 12.0 Blood Gas Modality Mask - bipap FiO2 % 60.0 Blood Gas EPAP 6 Blood Gas IPAP 12 Sodium Level 132 L 136-145 mmol/L Potassium Level 5.4 H 3.5-5.1 mmol/L Chloride Level 95 L 98-107 mmol/L Carbon Dioxide Level 25 20-31 mmol/L Anion Gap 12 5-15 Blood Urea Nitrogen 59 H 9-23 mg/dL Creatinine 9.59 H 0.700-1.30 mg/dL Glomerular Filtration Rate Calc 6 >90 mL/min BUN/Creatinine Ratio 6.2 L 10.0-20.0 Serum Glucose 174 H 74-106 mg/dL Calcium Level 10.3 8.7-10.4 mg/dL Troponin I High Sensitivity 18 </=54 ng/L POC Glucose 133 H 70-106 mg/dl Influenza Type A Antigen Negative Negative Influenza Type B Antigen Negative Negative SARS-CoV-2 Antigen (Rapid) Negative NEGATIVE Test 03/08/24 09:36 Range/Units White Blood Count 14.8 #H 4.4-10.8 10^3/uL Red Blood Count 3.69 L 4.5-5.90 10^6/uL Hemoglobin 11.6 L 13.5-17.5 g/dL Hematocrit 35.3 L 41.0-53.0 % Mean Corpuscular Volume 95.7 80.0-100.0 fL Mean Corpuscular Hemoglobin 31.4 28.0-32.0 pg Mean Corpuscular Hemoglobin Concent 32.8 32.0-36.0 g/dL Red Cell Distribution Width 17.3 H 11.8-14.3 % Platelet Count 254 140-450 10^3/uL Mean Platelet Volume 7.2 6.9-10.8 fL Neutrophils (%) (Auto) 85.1 H 37.0-80.0 % Lymphocytes (%) (Auto) 6.2 L 10.0-50.0 % Monocytes (%) (Auto) 6.9 0.0-12.0 % Eosinophils (%) (Auto) 1.2 0.0-7.0 % Basophils (%) (Auto) 0.6 0.0-2.0 % Neutrophils # (Auto) 12.6 H 1.6-8.6 10 ^3/uL Lymphocytes # (Auto) 0.9 0.4-5.4 10 ^3/uL Monocytes # (Auto) 1.0 0-1.3 10 ^3/uL Eosinophils # (Auto) 0.2 0-0.8 10 ^3/uL Basophils # (Auto) 0.1 0-0.2 10 ^3/uL Nucleated Red Blood Cells 0.0 % B-Type Natriuretic Peptide 1566.16 0-100 pg/mL Assessment A 59 male with multifocal pneumonia Acute hypoxic respiratory failure pulmonary edema ESRD on HD recommendations continue oxygenation possibly pulmonary edema, HD might improve O2 continue broad spectrum antibiotics, relatively sick sputum culture MRSA NAAT flu/ covid is negative thank you for opportunity to take care of the patient. Plan discussed with: KIMBERLY Mohr MD Mar 08, 2024 22:17
[2024-03-08] MEDS: SODIUM CHL 0.9% 1000 ML BAG XX ONE (22:19)
[2024-03-08 23:31] LABS: Potassium 4.7 mmol/L (3.5-5.1)
[2024-03-08 23:32] LABS: Anion Gap 9 (5-15); Carbon Dioxide 30 mmol/L (20-31)
[2024-03-08] MEDS: LORazepam 2MG/ML-1ML VIAL IV PRN (23:33)
[2024-03-08 23:38] LABS: BUN/Creatinine Ratio 5.9 (10.0-20.0); Blood Urea Nitrogen 42 mg/dL (9-23); Calcium 10.4 mg/dL (8.7-10.4); Chloride 96 mmol/L (98-107); Glucose 138 mg/dL (74-106); Sodium 135 mmol/L (136-145)
[2024-03-08] MEDS: VANCOMYCIN 1GM/250mL NS or D5W KIT IV SCH (23:55)
[2024-03-09] VITALS (13 sets, daily range): BP systolic 114–172; BP diastolic 55–90; PULSE 91–107; RESP 19–20; O2SAT 90–98
[2024-03-09 04:59] LABS: Basophils # (auto) 0.1 10 ^3/uL (0-0.2); Basophils % (auto) 0.3 % (0.0-2.0); Eosinophils # (auto) 0 10 ^3/uL (0-0.8); Eosinophils % (auto) 0.2 % (0.0-7.0); Hematocrit 34.6 % (41.0-53.0); Hemoglobin 11.4 g/dL (13.5-17.5); Lymphocytes # (auto) 0.7 10 ^3/uL (0.4-5.4); Lymphocytes % (auto) 3.8 % (10.0-50.0); Mean Corpuscular Hemoglobin 31.6 pg (28.0-32.0); Mean Corpuscular Volume 95.7 fL (80.0-100.0); Monocytes # (auto) 0.9 10 ^3/uL (0-1.3); Monocytes % (auto) 4.9 % (0.0-12.0); Neutrophils # (auto) 17.4 10 ^3/uL (1.6-8.6); Neutrophils % (auto) 90.8 % (37.0-80.0); Platelet Count (auto) 253 10^3/uL (140-450); Red Blood Cells 3.62 10^6/uL (4.5-5.90); Red Cell Distribution Width 17.3 % (11.8-14.3); White Blood Cell 19.1 10^3/uL (4.4-10.8)
[2024-03-09 05:10] LABS: Alanine Aminotransferase 19 U/L (7-40); Albumin 4.3 g/dL (3.2-4.8); Anion Gap 11 (5-15); Aspartate Aminotransferase 21 U/L (13-40); BUN/Creatinine Ratio 6.1 (10.0-20.0); Carbon Dioxide 27 mmol/L (20-31); Potassium 4.9 mmol/L (3.5-5.1)
[2024-03-09 05:11] LABS: Bilirubin, Total 0.3 mg/dL (0.2-1.0); Total Protein 7.4 g/dL (5.7-8.2)
[2024-03-09 05:12] LABS: Alkaline Phosphatase 159 U/L (46-116); Blood Urea Nitrogen 45 mg/dL (9-23); Calcium 10.4 mg/dL (8.7-10.4); Chloride 97 mmol/L (98-107); Glucose 155 mg/dL (74-106); Sodium 135 mmol/L (136-145)
--- NOTE | 2024-03-09 06:12 | DVHPN2 ---
Progress Note - Dictate Date Seen: Mar 09, 2024 Medical Necessity Reason Pt with a Central, PICC or Fol: No vital signs Vital Sign Date Time Temp Pulse Resp B/P (MAP) Pulse Ox O2 Delivery O2 Flow Rate FiO2 03/09/24 05:00 93 20 140/66 (90) 90 03/09/24 04:18 Facial BiPAP Mask 70 03/08/24 19:40 98.7 98.7 03/08/24 09:40 8 Total Intake and Output 03/08/24 03/08/24 03/09/24 15:00 23:00 07:00 Intake Total 50 ml 500 ml Balance 50 ml 500 ml medications Current Medications Medications Dose Ordered Sig/Gerard Route Start Time Stop Time Status Last Admin Dose Admin Acetaminophen/ Hydrocodone Bitart 1 tab Q4HP PRN PO 03/08/24 16:45 Ondansetron HCl 4 mg Q4HP PRN IV 03/08/24 16:45 Acetaminophen 650 mg Q6HP PRN PO 03/08/24 16:45 Morphine Sulfate 2 mg Q4HPRN PRN IV 03/08/24 16:45 03/08/24 19:08 2 MG Nitroglycerin 0.4 mg Q5MINP PRN SL 03/08/24 16:45 Morphine Sulfate 2 mg Q30M PRN IV 03/08/24 16:45 Vancomycin HCl 0 ml @ 0 mls/hr UD IV 03/08/24 21:00 UNV Cefepime HCl 50 ml @ 12.5 mls/hr DAILY IV 03/09/24 10:00 UNV Lorazepam 1 mg Q8HP PRN IV 03/08/24 23:15 03/08/24 23:33 1 MG objective Gen: on BiPAP HEENT: NC,AT Lungs: decreased breath sounds Cardiac: RRR, no murmur Abd: soft, no tenderness Ext: no edema + Lt radiocephalic AVF laboratory and microbiology Laboratory Tests 03/09/24 04:35 Test 03/09/24 04:35 Range/Units Serum Glucose 155 H 74-106 mg/dL Assessment/Plan Assessment: ESRD on HD via Lt forearm AVF Hyperkalemia Acute hypoxic respiratory failure on BiPAP Acute on chronic diastolic CHF bilateral pneumonia DM HTN CAD s/p stents Anemia of CKD Metabolic acidosis Hyperphosphatemia Secondary hyperparathyroidism Leukocytosis Hyponatremia Plan: s/p HD Next HD on Tuesday. goal 3 L UF on broad spectrum IV antibiotics NEVAEH post HD as needed. goal Hb: 10-11 g/dl Plan discussed with: Patient ROSEANN DUBOSE MD Mar 09, 2024 06:12
[2024-03-09] MEDS ORDERED: CEFEPIME 1GM/ 50ML 50 ML IV SCH (10:00)
--- NOTE | 2024-03-09 11:49 | DVHSR ---
APPROVED REPORT EXAM: LIMITED Two-dimensional and M-mode echocardiogram with Doppler and color Doppler. Blood Pressure: 114/83 mmHg INDICATION CHF RISK FACTORS Obesity: Height: 6' 2", Weight: 250 DIMENSIONS LVDd6.0 (3.8-5.7cm)LA (2D)4.8 (1.9-4.0cm)Aortic Root3.5 (2.0-3.7cm) LVDs5.2 (2.5-4.0cm)LA (MM) (1.9-4.0cm)Aortic Cusp Exc2.0 (1.5-2.0cm) EF (%) 35.0 (55-70%)Rt. Atrium4.9 (1.9-4.0cm)Asc. Aorta cm IVSd0.9 (0.7-1.1cm)RV (D) (1.8-2.4cm) PWd1.0 (0.7-1.1cm) Mitral Valve MitralMitral Stenosis E wave1.80m/sMV Mean GR.mmHg E/A ratio0.02D MVAcm2 Aortic Valve Aortic ValveAortic Stenosis V10.90m/Elizabeth Mean GR.5mmHg V21.50m/Elizabeth Peak GR.9mmHg LVOT Diameter2.3 (1.8-2.4cm)Doppler AVA2.49cm2 Pulmonic Valve V20.80m/s LEFT VENTRICLE The left ventricle is mildly dilated in size. Left ventricular wall thickness is normal. Ejection f raction is estimated at 35%. Subendocardial definition is suboptimal however, there is severe hypoki nesis of the mid and distal anterior septal wall and LV apex. Diastolic function is not adequately a ssessed. RIGHT VENTRICLE The right ventricle is mildly dilated in size. Right ventricular systolic function is preserved. ATRIA Left atrium is moderately dilated in size. Right atrium is mildly dilated in size. MITRAL VALVE There is moderate mitral annular calcification. There is mild mitral regurgitation. PULMONIC VALVE Not well visualized. TRICUSPID VALVE The valve is not well visualized. There is mild tricuspid regurgitation. PA systolic pressure is no t adequately estimated. AORTIC VALVE The aortic valve leaflets appear to be mildly calcified. No hemodynamically significant stenosis or regurgitation. GREAT VESSELS The aortic root is of normal size. The proximal ascending aorta is not well visualized. PERICARDIAL EFFUSION There is no pericardial effusion. Other Information Quality : Technically LimitedRhythm : Technically limited study due to body habitus. Conclusion The study is technically limited. Dilated left ventricle with ejection fraction estimated at 35%. Regional wall motion abnormalities as described above. Mildly dilated right ventricle with preserved systolic function. Calcified aortic valve with no significant stenosis. Moderately dilated left atrial chamber size. No significant pericardial effusion. PA systolic pressure is not adequately estimated.
[2024-03-09] MEDS: CEFEPIME 1GM/ 50ML 50 ML IV ONE (11:56)
--- NOTE | 2024-03-09 13:34 | ECG ---
[facility] Test Date: 2024-03-08 Test Time: 08:54:36 Pat Name: CARLOS KING Department: er Room: [address] [place] [address] Gender: M Health Aide: abraham : 1965 Requested By: NIA RODRIGUEZ Order Number: [id number] Reading MD: Measurements Intervals Dawson Rate: 79 P: 89 SD: 217 QRS: 84 QRSD: 127 T: 73 QT: 401 QTc: 460 Interpretive Statements Sinus rhythm Prolonged SD interval Nonspecific intraventricular conduction delay Please click the below link to view image of tracing.
[2024-03-09] MEDS: HYDROcodone-ACET 5/325MG TAB PO PRN (14:02)
[2024-03-09 15:20] LABS: Base Excess 1.6 mmol/L (-2.0-3.0)
--- NOTE | 2024-03-09 16:10 | DVHHPRES ---
History of Present Illness Resident Creating Document: ANDREI TORRES RESIDENT History of Present Illness Hospitalization summary/ Assessment: Mr. Mckee, 59-year-old male with a history of end-stage renal disease on hemodialysis, diabetes, hypertension, coronary artery disease with stents, congestive heart failure, c hills, and chronic pain presented with shortness of breath and chest Tightness. Despite trying home inhalers/ nebulizers patient did not find any relief that led him to come to the ED for further evaluation and treatment. Initially placed on supplemental oxygen via nasal cannula, he was later switched to BiPAP. He was hypertensive with a systolic blood pressure in the 160s mmHg. Chest X-ray revealed multifocal opacities in both lungs. Lab results showed negative serial troponin, elevated potassium at 6.1 mmol/L, and a white blood cell count of 14. He tested negative for Influenza A, B, and COVID-19. Nephrology was consulted for dialysis. Patient was accompanied by the Bouchra, parallel history was taken. The patient was admitted to the hospital 4th time for similar attacks in past 1 month, likely progressive COPD, normal S1,S2 heard. no murmurs heard. peripheral pulses normal radial 2+, pedal 2+. capillary refill normal <2 secs. Worsening multifocal airspace opacities in the bilateral lungs. Patient m entions up-to-date with his immunizations to COVID, influenza, pneumococcal vaccines. Past medical history: ESRD, CAD s/p PTCA, HTN, CHF, HFrEF, Chronic back pain, COPD, DDD, history of polysubstance abuse. Past surgical history: PTCA Social history: Reports smoke pain 4-5 cigarettes daily, occasional alcohol, drug use previously. Home medications: Hydralazine 100 mg t.i.d., atorvastatin 40 mg q.d., gabapentin 100 mg t.i.d., metoprolol XL 100 mg q.d., aspirin 81 mg q.d., amlodipine 10 mg q.d., isosorbide mononitrate 30 mg q.d., ranolazine 500 mg b.i.d., diazepam 10 mg t.i.d. p.r.n. Due to technical error H&P is noted on 09 of March, despite the admission date is on March. Cardiovascular: CAD, CHF Pulmonary: COPD, Pneumonia GI: Constipation Heme/Onc: Anemia NOS Psych: Anxiety, Psychosis, Schizophrenia Musculoskeletal: Chronic low back pain, Osteoarthritis Renal/: Chronic renal insuff, Other (ESRD) Endocrine: Diabetes Dermatology: Other (Skin abcess. ) Past Surgical History CAD s/p PTCA. 7 stents. Family History From paternal side patient has a history of prostate cancer. From maternal side patient has a history of hypertension, diabetes, CHF. Smoke: # pack years (60 approximately, present smoker) ALCOHOL: occassional Drugs: Other (Previously on cocaine and methamphetamine among other drugs, but never tried IV drugs.) Lives: with Family Domestic Violence: Neg Review of Systems Constitutional: Yes: Chills, Malaise ENT: Nose congestion Respiratory: Cough, Dry, Shortness of breath, Wheezing, Wheezing Cardiovascular: Paroxysmal Noc. Dyspnea, Edema Gastrointestinal: Constipation Musculoskeletal: back pain Neurological: Seizures, Other Allergies: Coded Allergies: Penicillins (Verified Allergy, Unknown, 09/19/23) Tetanus Toxoid (Verified Allergy, Unknown, 09/19/23) Medications Current Medications Medications Dose Ordered Sig/Gerard Route Start Time Stop Time Status Last Admin Dose Admin Acetaminophen/ Hydrocodone Bitart 1 tab Q4HP PRN PO 03/08/24 16:45 03/09/24 14:02 1 TAB Ondansetron HCl 4 mg Q4HP PRN IV 03/08/24 16:45 Acetaminophen 650 mg Q6HP PRN PO 03/08/24 16:45 Morphine Sulfate 2 mg Q4HPRN PRN IV 03/08/24 16:45 03/08/24 19:08 2 MG Nitroglycerin 0.4 mg Q5MINP PRN SL 03/08/24 16:45 Morphine Sulfate 2 mg Q30M PRN IV 03/08/24 16:45 Vancomycin HCl 0 ml @ 0 mls/hr UD IV 03/08/24 21:00 Lorazepam 1 mg Q8HP PRN IV 03/08/24 23:15 03/08/24 23:33 1 MG Cefepime HCl 0.5 gm/Sodium Chloride 50 ml @ 12.5 mls/hr 2200 IV 03/10/24 22:00 Exam Vital Signs Vital Signs Date Time Temp Pulse Resp B/P (MAP) Pulse Ox O2 Delivery O2 Flow Rate FiO2 03/09/24 11:30 98 21 184/88 (120) 03/09/24 10:50 92 Facial BiPAP Mask 80 03/09/24 07:30 98.0 98.0 03/08/24 09:40 8 General Appearance: Alert, Oriented X3, moderate distress, Other (facial richardson. ) HEENT: Atraumatic, PERRLA, EOMI, Mucous membr. moist/pink Respiratory: Other (b/l cracles right more than left. incresed expiratory phase. use of accessory muscles when off of BiPAP. ) Cardiovascular: Regular rate, Normal S1, Normal S2, No murmurs Abdominal: Normal bowel sounds, Soft, No tenderness, No hepatospenomegaly, No masses Extremities: No cyanosis, Normal pulses Skin: No rashes, No breakdown, No significant lesion (patient has multiple healed suture ellis in the back. ) Neuro: Normal gait, Normal speech, Strength at 5/5 X4 ext, Normal tone, Sensation intact, Cranial nerves 3-12 NL Psych/Mental Status: Other (has history of schizophrenia, reported visual hallucination. ) Labs/Xrays Labs Test 03/09/24 04:35 03/08/24 14:10 03/08/24 13:34 03/08/24 12:50 Range/Units White Blood Count 19.1 #H 4.4-10.8 10^3/uL Red Blood Count 3.62 L 4.5-5.90 10^6/uL Hemoglobin 11.4 L 13.5-17.5 g/dL Hematocrit 34.6 L 41.0-53.0 % Mean Corpuscular Volume 95.7 80.0-100.0 fL Mean Corpuscular Hemoglobin 31.6 28.0-32.0 pg Mean Corpuscular Hemoglobin Concent 33.0 32.0-36.0 g/dL Red Cell Distribution Width 17.3 H 11.8-14.3 % Platelet Count 253 140-450 10^3/uL Mean Platelet Volume 7.1 6.9-10.8 fL Neutrophils (%) (Auto) 90.8 H 37.0-80.0 % Lymphocytes (%) (Auto) 3.8 L 10.0-50.0 % Monocytes (%) (Auto) 4.9 0.0-12.0 % Eosinophils (%) (Auto) 0.2 0.0-7.0 % Basophils (%) (Auto) 0.3 0.0-2.0 % Neutrophils # (Auto) 17.4 H 1.6-8.6 10 ^3/uL Lymphocytes # (Auto) 0.7 0.4-5.4 10 ^3/uL Monocytes # (Auto) 0.9 0-1.3 10 ^3/uL Eosinophils # (Auto) 0 0-0.8 10 ^3/uL Basophils # (Auto) 0.1 0-0.2 10 ^3/uL Nucleated Red Blood Cells 0.0 % Sodium Level 135 L 136-145 mmol/L Potassium Level 4.9 3.5-5.1 mmol/L Chloride Level 97 L 98-107 mmol/L Carbon Dioxide Level 27 20-31 mmol/L Anion Gap 11 5-15 Blood Urea Nitrogen 45 H 9-23 mg/dL Creatinine 7.42 H 0.700-1.30 mg/dL Glomerular Filtration Rate Calc 8 >90 mL/min BUN/Creatinine Ratio 6.1 L 10.0-20.0 Serum Glucose 155 H 74-106 mg/dL Calcium Level 10.4 8.7-10.4 mg/dL Total Bilirubin 0.3 0.2-1.0 mg/dL Aspartate Amino Transferase (AST) 21 13-40 U/L Alanine Aminotransferase (ALT) 19 7-40 U/L Alkaline Phosphatase 159 H 46-116 U/L Total Protein 7.4 5.7-8.2 g/dL Albumin 4.3 3.2-4.8 g/dL Blood Gas Specimen Type Arterial Blood Gas Sample Site Right radial Blood Gas Patient Temperature 37.0 Arterial Blood Date Drawn [id number] Arterial Blood pH 7.441 7.350-7.450 Arterial Blood Partial Pressure CO2 38.7 35.0-48.0 mmHg Arterial Blood Partial Pressure O2 73.7 L 83.0-108.0 mmHg Arterial Blood HCO3 25.8 21.0-28.0 mmol/L Arterial Blood Oxygen Saturation 93.4 L 94.0-98.0 % Arterial Blood Base Excess 1.6 -2.0-3.0 mmol/L Arterial Blood Oxyhemoglobin 91.8 L 94.0-98.0 % Arterial Blood Carboxyhemoglobin 1.4 0.5-1.5 % Arterial Blood Methemoglobin 0.3 0.0-1.5 % Benson Test Yes Blood Gas Total Hemoglobin 11.40 L 13.5-17.5 g/dL Blood Gas Set Respiration Rate 12.0 Blood Gas Modality Mask - bipap FiO2 % 60.0 Blood Gas EPAP 6 Blood Gas IPAP 12 Troponin I High Sensitivity 18 </=54 ng/L POC Glucose 133 H 70-106 mg/dl Test 03/08/24 09:40 03/08/24 09:36 Range/Units Influenza Type A Antigen Negative Negative Influenza Type B Antigen Negative Negative SARS-CoV-2 Antigen (Rapid) Negative NEGATIVE B-Type Natriuretic Peptide 1566.16 0-100 pg/mL [facility] [id number] [address] Ph: [phone] DIAGNOSTIC IMAGING Diagnostic Imaging Report : [id number] Signed with Addenda PATIENT: CARLOS MCKEE ACCT: [id number] UNIT: [id number] : 1965 LOC: ER ROOM / BED: / AGE / SEX: 59 / M ADM STATUS: REG ER SERVICE 0 ORDERING PHYSICIAN: NIA RODRIGUEZ MD PROCEDURE(s): CXRP - CHEST PORTABLE REASON: sob ORDER NUMBER(s): [id number], ACCESSION NUMBER(s): [id number] ADDENDUM ADDENDUM # 1 No endotracheal tube is visualized. ORIGINAL REPORT EXAM: XY CHEST PORTABLE Indication: sob Technique: Single frontal view of the chest was obtained Comparison: XY CHEST PORTABLE on DOS: 03/04/24, XY CHEST PORTABLE on DOS: 02/17/24, XY CHEST PORTABLE on DOS: 08/13/23 FINDINGS: Lines and Tubes: Endotracheal tube projects 7 cm above the toñito. Lungs: Multifocal airspace opacities. Pleura: No effusion. No pneumothorax. Cardiomediastinal contours: Unremarkable Bones: No acute osseous abnormality. IMPRESSION: Worsening multifocal airspace opacities in the bilateral lungs. ATED BY: KRISTY POWELL MD DICTATED DATE/TIME: 03/08/241730 SIGNED BY: KRISTY POWELL MD SIGNED DATE/TIME: 03/08/241730 CC: EXAM: XY CHEST PORTABLE Indication: sob Technique: Single frontal view of the chest was obtained Comparison: XY CHEST PORTABLE on DOS: 03/04/24, XY CHEST PORTABLE on DOS: 02/17/24, XY CHEST PORTABLE on DOS: 08/13/23 FINDINGS: Lines and Tubes: Endotracheal tube projects 7 cm above the toñito. Lungs: Multifocal airspace opacities. Pleura: No effusion. No pneumothorax. Cardiomediastinal contours: Unremarkable Bones: No acute osseous abnormality. IMPRESSION: Worsening multifocal airspace opacities in the bilateral lungs. ATED BY: KRISTY POWELL MD DICTATED DATE/TIME: 03/08/24946 SIGNED BY: KRISTY POWELL MD SIGNED DATE/TIME: 03/08/24946 CC: Assessment/Plan Assessment/Plan Hospital course: 59-year-old gentleman, chronic smoker came with a previous history of COPD and recurrent hospitalization due to COPD exacerbation with COPD/CHF exacerbation with community-acquired pneumonia needing oxygen therapy via BiPAP support. # Hyperkalemia: Presented with 6.4>> status post dialysis 4.9, patient on telemetry. # Community-acquired pneumonia , gram-negative, Gram-positive: sputum culture negative, MRSA screen negative, ceftriaxone azithromycin at this point to continue. Viral pneumonic ruled out, RSV, COVID, Rapid flu screening pending. # Sepsis secondary due to pulmonary infection : Elevated heart rate, elevated respiratory rate, elevated white count. MRSA nasal negative, continue IV cefepime and vancomycin for now. Added azithromycin for atypical coverage. # ESRD: Patient on hemodialysis with [facility]. Last hemodialysis at hospital yesterday at admission. # Heart failure with reduced ejection fraction: 35% of EF, Given the patient's ESRD, limited choice of GDMT. # calcified aortic valves without significant stenosis # COPD exacerbation: at home inhaler + nebs. BIPAP, breathing treatment, outpatient follow up with pulm to optimize treatment. q6 Duonebs, keep SPO2-> 88-92% and Steroids , kept oral meds as patient is aneuric (<100 cc/24 hour) so that no chance of volume overload. # acute on chronic Heart failure with reduced ejection fraction: Patient came elevated BNP of 1500+, needs dialysis, more rapid fluid release. Continue IV b.i.d. 80 Lasix. Check in/out closely, 2 g salt restriction/1.2 L fluid restriction per 24 hours. Echo noted. # acute hypoxic respiratory failure; now on BiPAP: Reviewed ABGs and chest x- ray; Likely due to COPD exacerbation/CHF exacerbation. With possible source of pneumonia. # hypertensive heart disease: blood pressure control , keep the map over 65. # Degenerative disc disease: severe back pain, lumbar CT shows no evidence of acute fracture, bilateral L5 pars defects with grade 1 anterolisthesis of L5 on S1, posterior disc osteophyte complex is L3-L4, L4-L5 L5-S1 On Opioid pain medications chronically. No acute fracture in the lumbar spine. T12 compression deformity similar to prior CT lumbar spine from 02/24/2024. # H/o coronary artery disease s/p PTCA: 7 stents, aspirin, atorvastatin to continue. # history of polysubstance abuse with methamphetamine, cocaine distantly. # history of incarceration: 25+ years back last incarceration , prior to start of hemodialysis patient was tested negative for TB. # obesity grade 1: 32.2 BMI, weight loss counseling done. # Mixed, blood gas picture with acute on chronic respiratory alkalosis and non-anion gap metabolic acidosis: Check for lactate, mixed picture likely due to both respiratory and metabolic concurrent issues. Continue BiPAP Likely going to help as patient has increased fluid in pulmonary surface. ABG as needed by RT. # Tobacco use disorder: 44 years of smoking, previously patient had 2 pack-year smoking history daily, now 3/4 packs of smoking each day. Patient is counseled at bedside for smoking cessation. 18 minutes of cessation counseling done at bedside. Patient is put on 14 mg daily Nicotine patch. # likely seizure disorder: Patient mentions history of seizure disorder, as per patient's family previous workup negative so far, last episode yesterday with. 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 # schizophrenia, paranoid delusions: Patient has previous history of schizophrenia, paranoid delusions, previously patient was on lithium, not on any antipsychotics presumably. Patient mentions having visual hallucinations with relatives , family mentioned having conversation with the imaginary figures. Likely patient need other treatment for schizophrenia this point, denies any homicidal or suicidal ideation. # recurrent skin abscesses: Previously patient had recurrence skin abscesses that has been drained previously in the back. Scar ellis noted, stable. # anxiety disorder: Patient on as needed on Ativan. Diet: patient is BiPAP dependent, NPO for now. GI prophylaxis: protonix 40mg daily DVT prophylaxis: heparin 5000 for DVT prophylaxis As patient has a ESRD. Bowel regimen: Chronic constipation, can not tell me last bowel movement, Colace 100 p.r.n. b.i.d., as needed lactulose. Barriers to discharge: Medical diagnosis and management in progress. Patient lives with self / family. Independent/need supportive device/wheelchair/person support for ADL. PT and SW consult as needed. 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 Patient care and plan discussed with Dr. Bruno. Disposition: Patient remains as IBIS level in ER. Code status: Full, discussed for 20 minutes at bedside. 99 minutes of critical care time. Had a long discussion with the patient and his about the importance of adherence to medical management. Plan discussed with: Patient, Spouse, Other Date of Service: Mar 09, 2024 Billing Provider: AMANDA BRUNO MD Common Visit Codes: 39139-ABDVNCT INP/OBS CARE (HIGH), 63898-EMICXKBA CARE 30- 74 MIN (99 minutes), 21474-CIDLXIKP CARE-EACH +30MIN Secondary Visit Codes: 54793-YZRAC CHNG SMOKING >10MIN (18 minutes), 21205- ADVANCED CARE PLAN 30 MINUTES (20 minutes) ANDREI TORRES RESIDENT Mar 09, 2024 16:10 AMANDA BRUNO MD Mar 09, 2024 20:41
[2024-03-09] MEDS: AZITHROMYCIN 250 MG TAB PO ONE (16:55)
[2024-03-09] MEDS: MAGNESIUM SULFATE 1GM/100ML 100 ML IV ONE (17:00)
[2024-03-09] MEDS: predniSONE 20 MG TAB PO ONE (17:12)
[2024-03-09] MEDS: IPRATROPIUM BROM 0.5 MG/2.5ML INH SOL NEB SCH (18:38)
[2024-03-09] MEDS: LEVALBUTEROL HCL 1.25 MG/3 ML NEB NEB SCH (18:38)
[2024-03-09] MEDS: FUROSEMIDE 100 MG/10ML VIAL IV SCH (19:09)
--- NOTE | 2024-03-09 20:00 | DVHPN2 ---
Progress Note - Dictate Date Seen: Mar 09, 2024 Medical Necessity Reason Pt with a Central, PICC or Fol: No Subjective on bipap vital signs Vital Sign Date Time Temp Pulse Resp B/P (MAP) Pulse Ox O2 Delivery O2 Flow Rate FiO2 03/09/24 19:09 177/73 03/09/24 18:34 100 93 Facial BiPAP Mask 60 03/09/24 17:30 29 03/09/24 07:30 98.0 98.0 03/08/24 09:40 8 Total Intake and Output 03/08/24 03/08/24 03/09/24 15:00 23:00 07:00 Intake Total 50 ml 500 ml Balance 50 ml 500 ml medications Current Medications Medications Dose Ordered Sig/Gerard Route Start Time Stop Time Status Last Admin Dose Admin Acetaminophen/ Hydrocodone Bitart 1 tab Q4HP PRN PO 03/08/24 16:45 03/09/24 14:02 1 TAB Ondansetron HCl 4 mg Q4HP PRN IV 03/08/24 16:45 Acetaminophen 650 mg Q6HP PRN PO 03/08/24 16:45 Morphine Sulfate 2 mg Q4HPRN PRN IV 03/08/24 16:45 03/08/24 19:08 2 MG Nitroglycerin 0.4 mg Q5MINP PRN SL 03/08/24 16:45 Morphine Sulfate 2 mg Q30M PRN IV 03/08/24 16:45 Vancomycin HCl 0 ml @ 0 mls/hr UD IV 03/08/24 21:00 Lorazepam 1 mg Q8HP PRN IV 03/08/24 23:15 03/08/24 23:33 1 MG Cefepime HCl 0.5 gm/Sodium Chloride 50 ml @ 12.5 mls/hr 2200 IV 03/10/24 22:00 Furosemide 80 mg BIDD IV 03/09/24 18:00 03/09/24 19:09 80 MG Ipratropium [place] 0.5 mg Q6HWA NEB 03/09/24 18:00 03/09/24 18:38 0.5 MG Levalbuterol HCl 0.625 mg Q6HR NEB 03/09/24 18:00 03/09/24 18:38 0.625 MG Azithromycin 500 mg DAILY PO 03/10/24 10:00 Prednisone 40 mg DAILY PO 03/10/24 10:00 objective General alert and oriented HEENT: Atraumatic Neck: No swelling Lungs: Equal air entry and clear to auscultation Cardiovascular: S2 heard no murmur Abdomen: Soft nontender, no organomegaly, nondistended Neuro: Alert and oriented, no focal deficit Psych: Normal mood and affect laboratory and microbiology Laboratory Tests 03/09/24 04:35 Test 03/09/24 04:35 Range/Units Serum Glucose 155 H 74-106 mg/dL Assessment/Plan A 59 male with multifocal pneumonia Acute hypoxic respiratory failure pulmonary edema ESRD on HD recommendations continue oxygenation possibly pulmonary edema, HD might improve O2 continue broad spectrum antibiotics, relatively sick sputum culture MRSA NAAT flu/ covid is negative thank you for opportunity to take care of the patient. Plan discussed with: Patient, Other KIMBERLY DE LA TORRE MD Mar 09, 2024 20:00
[2024-03-10] VITALS (10 sets, daily range): BP systolic 141–173; BP diastolic 60–73; PULSE 91–107; RESP 12–20; O2SAT 94–100
--- NOTE | 2024-03-10 05:39 | DVH ---
CHEST RADIOGRAPH Indication: Follow up on acute respiratory jv;ur Technique: Single frontal view of the chest was obtained Comparison: XY CHEST PORTABLE on DOS: 03/08/24, XY CHEST PORTABLE on DOS: 03/04/24, XY CHEST PORTABLE o n DOS: 02/17/24 IMPRESSION: The heart is enlarged. Bilateral airspace opacities have worsened. No sizable effusion or pneumothor ax.
[2024-03-10] MEDS: SODIUM CHL 0.9% 1000 ML BAG XX ONE (07:00)
[2024-03-10 07:57] LABS: Basophils # (auto) 0.2 10 ^3/uL (0-0.2); Basophils % (auto) 1.2 % (0.0-2.0); Eosinophils # (auto) 0 10 ^3/uL (0-0.8); Hematocrit 29.9 % (41.0-53.0); Hemoglobin 10.2 g/dL (13.5-17.5); Lymphocytes # (auto) 0.5 10 ^3/uL (0.4-5.4); Lymphocytes % (auto) 3.6 % (10.0-50.0); Mean Corpuscular Hemoglobin 32.2 pg (28.0-32.0); Mean Corpuscular Hgb Conc. 34.1 g/dL (32.0-36.0); Mean Corpuscular Volume 94.7 fL (80.0-100.0); Monocytes # (auto) 0.6 10 ^3/uL (0-1.3); Monocytes % (auto) 4.2 % (0.0-12.0); Platelet Count (auto) 197 10^3/uL (140-450); Red Blood Cells 3.15 10^6/uL (4.5-5.90); Red Cell Distribution Width 17.6 % (11.8-14.3); White Blood Cell 14.3 10^3/uL (4.4-10.8)
[2024-03-10 08:18] LABS: Alanine Aminotransferase 16 U/L (7-40); Anion Gap 12 (5-15); Aspartate Aminotransferase 16 U/L (13-40); BUN/Creatinine Ratio 6.9 (10.0-20.0); Calcium 9.9 mg/dL (8.7-10.4); Carbon Dioxide 27 mmol/L (20-31); Sodium 136 mmol/L (136-145)
[2024-03-10 08:19] LABS: Albumin 3.7 g/dL (3.2-4.8); Bilirubin, Total 0.3 mg/dL (0.2-1.0); Total Protein 6.5 g/dL (5.7-8.2)
[2024-03-10 08:44] LABS: Chloride 97 mmol/L (98-107); Glucose 168 mg/dL (74-106)
[2024-03-10 08:45] LABS: Alkaline Phosphatase 132 U/L (46-116); Blood Urea Nitrogen 63 mg/dL (9-23)
[2024-03-10] MEDS: AZITHROMYCIN 250 MG TAB PO SCH (10:53)
[2024-03-10] MEDS: predniSONE 20 MG TAB PO SCH (10:53)
[2024-03-10 15:38] LABS: Base Excess 5.4 mmol/L (-2.0-3.0)
[2024-03-10] MEDS: VANCOMYCIN 1GM/250ML KIT 250 ML IV ONE (16:30)
--- NOTE | 2024-03-10 16:49 | DVHPN2 ---
Progress Note - Dictate Date Seen: Mar 10, 2024 Medical Necessity Reason Pt with a Central, PICC or Fol: No Subjective on supplemental oxygen vital signs Vital Sign Date Time Temp Pulse Resp B/P (MAP) Pulse Ox O2 Delivery O2 Flow Rate FiO2 03/10/24 12:00 103 03/10/24 11:56 14 99 03/10/24 11:48 Simple Mask* 10 99 03/10/24 08:30 133/41 (71) 03/09/24 07:30 98.0 98.0 Total Intake and Output 03/09/24 03/09/24 03/10/24 15:00 23:00 07:00 Intake Total 37.5 ml 112.5 ml Balance 37.5 ml 112.5 ml medications Current Medications Medications Dose Ordered Sig/Gerard Route Start Time Stop Time Status Last Admin Dose Admin Acetaminophen/ Hydrocodone Bitart 1 tab Q4HP PRN PO 03/08/24 16:45 03/09/24 14:02 1 TAB Ondansetron HCl 4 mg Q4HP PRN IV 03/08/24 16:45 Acetaminophen 650 mg Q6HP PRN PO 03/08/24 16:45 Morphine Sulfate 2 mg Q4HPRN PRN IV 03/08/24 16:45 03/08/24 19:08 2 MG Nitroglycerin 0.4 mg Q5MINP PRN SL 03/08/24 16:45 Morphine Sulfate 2 mg Q30M PRN IV 03/08/24 16:45 Vancomycin HCl 0 ml @ 0 mls/hr UD IV 03/08/24 21:00 Lorazepam 1 mg Q8HP PRN IV 03/08/24 23:15 03/08/24 23:33 1 MG Cefepime HCl 0.5 gm/Sodium Chloride 50 ml @ 12.5 mls/hr 2200 IV 03/10/24 22:00 Ipratropium [place] 0.5 mg Q6HWA NEB 03/09/24 18:00 03/10/24 11:48 0.5 MG Levalbuterol HCl 0.625 mg Q6HR NEB 03/09/24 18:00 03/10/24 11:48 0.625 MG Azithromycin 500 mg DAILY PO 03/10/24 10:00 03/10/24 10:53 500 MG Prednisone 40 mg DAILY PO 03/10/24 10:00 03/10/24 10:53 40 MG Furosemide 40 mg BIDD IV 03/11/24 06:00 objective Gen: on BiPAP HEENT: NC,AT Lungs: decreased breath sounds Cardiac: RRR, no murmur Abd: soft, no tenderness Ext: no edema + Lt radiocephalic AVF laboratory and microbiology Laboratory Tests 03/10/24 07:35 Test 03/10/24 07:35 Range/Units Serum Glucose 168 H 74-106 mg/dL Assessment/Plan Assessment: ESRD on HD via Lt forearm AVF Hyperkalemia Acute hypoxic respiratory failure on supplemental oxygen Acute on chronic diastolic CHF bilateral pneumonia DM HTN CAD s/p stents Anemia of CKD Metabolic acidosis Hyperphosphatemia Secondary hyperparathyroidism Leukocytosis Hyponatremia Plan: HD today. goal 3 L UF on broad spectrum IV antibiotics NEVAEH post HD as needed. goal Hb: 10-11 g/dl Plan discussed with: Patient ROSEANN DUBOSE MD Mar 10, 2024 16:49
--- NOTE | 2024-03-10 21:50 | DVHPN2 ---
Progress Note - Dictate Date Seen: Mar 10, 2024 Medical Necessity Reason Pt with a Central, PICC or Fol: No Subjective Patient is currently receiving dialysis. PT IS TOLERATING WELL WITH NO RESPIRATORY DISTRESS NOTED. vital signs Vital Sign Date Time Temp Pulse Resp B/P (MAP) Pulse Ox O2 Delivery O2 Flow Rate FiO2 03/10/24 20:00 109 03/10/24 19:25 96 Nasal Cannula* 2 28 03/10/24 18:31 20 03/10/24 18:30 176/41 (86) 03/09/24 07:30 98.0 98.0 Total Intake and Output 03/09/24 03/09/24 03/10/24 15:00 23:00 07:00 Intake Total 37.5 ml 112.5 ml Balance 37.5 ml 112.5 ml medications Current Medications Medications Dose Ordered Sig/Gerard Route Start Time Stop Time Status Last Admin Dose Admin Acetaminophen/ Hydrocodone Bitart 1 tab Q4HP PRN PO 03/08/24 16:45 03/09/24 14:02 1 TAB Ondansetron HCl 4 mg Q4HP PRN IV 03/08/24 16:45 Acetaminophen 650 mg Q6HP PRN PO 03/08/24 16:45 Morphine Sulfate 2 mg Q4HPRN PRN IV 03/08/24 16:45 03/08/24 19:08 2 MG Nitroglycerin 0.4 mg Q5MINP PRN SL 03/08/24 16:45 Morphine Sulfate 2 mg Q30M PRN IV 03/08/24 16:45 Vancomycin HCl 0 ml @ 0 mls/hr UD IV 03/08/24 21:00 Lorazepam 1 mg Q8HP PRN IV 03/08/24 23:15 03/08/24 23:33 1 MG Cefepime HCl 0.5 gm/Sodium Chloride 50 ml @ 12.5 mls/hr 2200 IV 03/10/24 22:00 Ipratropium [place] 0.5 mg Q6HWA NEB 03/09/24 18:00 03/10/24 18:31 0.5 MG Levalbuterol HCl 0.625 mg Q6HR NEB 03/09/24 18:00 03/10/24 18:31 0.625 MG Azithromycin 500 mg DAILY PO 03/10/24 10:00 03/10/24 10:53 500 MG Prednisone 40 mg DAILY PO 03/10/24 10:00 03/10/24 10:53 40 MG Furosemide 40 mg BIDD IV 03/11/24 06:00 laboratory and microbiology Laboratory Tests 03/10/24 07:35 Test 03/10/24 07:35 Range/Units Serum Glucose 168 H 74-106 mg/dL KIMBERLY DE LA TORRE MD Mar 10, 2024 21:50
[2024-03-10] MEDS: CEFEPIME 0.5 GM in SODIUM CHL 0.9% 50 ML IV SCH (22:00)
[2024-03-10] MEDS: ONDANSETRON HCL 4 MG/2 ML VIAL IV PRN (22:55)
--- NOTE | 2024-03-10 23:52 | DVHPN2 ---
Subjective Update 03/10 patient is feeling improved, remains on oxygen. He has been weaned off BiPAP. He was now more oriented and alert. Reviewed: H&P Changes from previous H/P or p: No Changes General: Per HPI Objective Vitals Vital Signs Date Time Temp Pulse Resp B/P (MAP) Pulse Ox O2 Delivery O2 Flow Rate FiO2 03/10/24 22:55 82 14 135/70 03/10/24 19:25 96 Nasal Cannula* 2 28 03/09/24 07:30 98.0 98.0 Intake/Output Intake and Output 03/10/24 07:00 Intake Total 150.0 ml Balance 150.0 ml Intake IV Total 150.0 ml Exam GEN: Healthy appearing, well-developed, NAD. HEENT: NC/AT; MMM. CV: Systolic murmur dialysis fistula right upper extremity forearm LUNGS: Faint wheezing in upper lobes bilaterally ABD: Soft, NT/ND, NBS, no masses or organomegaly. EXT: skin Warm, well perfused. no rashes. No clubbing, cyanosis, or edema. NEURO: Ambulating with no limitations. No focal deficits. Medications Current Medications Medications Dose Ordered Sig/Gerard Route Start Time Stop Time Status Last Admin Dose Admin Acetaminophen/ Hydrocodone Bitart 1 tab Q4HP PRN PO 03/08/24 16:45 03/09/24 14:02 1 TAB Ondansetron HCl 4 mg Q4HP PRN IV 03/08/24 16:45 03/10/24 22:55 4 MG Acetaminophen 650 mg Q6HP PRN PO 03/08/24 16:45 Morphine Sulfate 2 mg Q4HPRN PRN IV 03/08/24 16:45 03/10/24 22:55 2 MG Nitroglycerin 0.4 mg Q5MINP PRN SL 03/08/24 16:45 Morphine Sulfate 2 mg Q30M PRN IV 03/08/24 16:45 Vancomycin HCl 0 ml @ 0 mls/hr UD IV 03/08/24 21:00 Lorazepam 1 mg Q8HP PRN IV 03/08/24 23:15 03/08/24 23:33 1 MG Cefepime HCl 0.5 gm/Sodium Chloride 50 ml @ 12.5 mls/hr 2200 IV 03/10/24 22:00 03/10/24 22:00 12.5 MLS/HR Ipratropium [place] 0.5 mg Q6HWA [facility] 03/09/24 18:00 03/10/24 18:31 0.5 MG Levalbuterol HCl 0.625 mg Q6HR [facility] 03/09/24 18:00 03/10/24 18:31 0.625 MG Azithromycin 500 mg DAILY PO 03/10/24 10:00 03/10/24 10:53 500 MG Prednisone 40 mg DAILY PO 03/10/24 10:00 03/10/24 10:53 40 MG Furosemide 40 mg BIDD IV 03/11/24 06:00 Laboratory Results Laboratory Tests 03/10/24 07:35 Chemistry Test 03/10/24 07:35 Albumin 3.7 g/dL (3.2-4.8) Calcium Level 9.9 mg/dL (8.7-10.4) Total Protein 6.5 g/dL (5.7-8.2) LFT Test 03/10/24 07:35 Alanine Aminotransferase (ALT) 16 U/L (7-40) Alkaline Phosphatase 132 U/L (46-116) H Aspartate Amino Transferase (AST) 16 U/L (13-40) Total Bilirubin 0.3 mg/dL (0.2-1.0) Blood Gas Results Test 03/10/24 15:34 Arterial Blood pH 7.522 (7.350-7.450) FiO2 % 40.0 Microbiology Microbiology Date/Time Source Procedure Growth Status 03/09/24 08:40 Nose MRSA Screen - Final Complete 03/08/24 21:30 Blood Blood Culture - Preliminary NO GROWTH AFTER 48 HOURS OF INCUBATION. Resulted Labs and/or images reviewed: Labs reviewed by me, Image(s) reviewed by me Assessment/Plan Assessment/Plan Update 03/10 patient is feeling improved, remains on oxygen. He has been weaned off BiPAP. He was now more oriented and alert. # Acute hypoxic respiratory failure # Acute on chronic COPD exacerbation # Pneumonia, Gram-negative Gram-positive atypical likely # Sirs without end-organ damage # Sepsis likely from pneumonia # Current smoker # Leukocytosis # Neutrophilia - patient continues to smoke, presenting with shortness of breath and chest tightness. COVID flu negative, requiring nasal cannula oxygen, he was not on home oxygen. Requiring BiPAP and needing continuous BiPAP. Upgraded to BLANCA. CXR concerning for pneumonia - labs with leukocytosis and neutrophilia. Concerning for infection. -echo done 03/10 showing EF 35% and few wall motion abnormalities. - start antibiotics broad-spectrum, vanc cefepime azithromycin - diuresis initially done, holding off now as HD results in euvolemia - q.4 hours duo nebs -IV steroids Solu-Medrol 40 b.i.d. -smoking cessation counseling -oxygen goal 88-92% # ESRD on HD TTS nephro consulted, continue scheduled HD # HFrEF-EF 35% with WMA. patient continues to make urine despite being ESRD, we will hold off further Lasix as patient appears euvolemic after HD sessions. # History [place]/CAD SP PTCA-continue home meds Diet renal GI prophylaxis tolerate diet DVT prophylaxis-Lovenox Med tele Full code Plan discussed with: Patient My Orders Orders - BILLY DAVISON MD Procedure Category Date Status Time * Infectious [place]- DrNicolas CONS 03/10/24 Transmitted [place] 13:00 Transfer Orders XFER 03/10/24 Transmitted 13:04 Furosemide Injection PHA 03/11/24 In Process (Lasix Injection) 06:00 Date of Service: Mar 10, 2024 Billing Provider: BILLY DAVISON MD Common Visit Codes: [id number] INP/OBS CARE(HIGH) Secondary Visit Codes: [id number] CHNG SMOKING >10MIN BILLY DAVISON MD Mar 10, 2024 23:52
[2024-03-11] VITALS (13 sets, daily range): BP systolic 146–169; BP diastolic 53–75; PULSE 98–104; RESP 18–20; TEMP 97.8–98.2; O2SAT 90–100
[2024-03-11] MEDS ORDERED: FUROSEMIDE 100 MG/10ML VIAL IV SCH (06:00)
--- NOTE | 2024-03-11 06:14 | DVHPN2 ---
Progress Note - Dictate Date Seen: Mar 11, 2024 Medical Necessity Reason Pt with a Central, PICC or Fol: No Subjective on supplemental oxygen vital signs Vital Sign Date Time Temp Pulse Resp B/P (MAP) Pulse Ox O2 Delivery O2 Flow Rate FiO2 03/11/24 05:01 95 18 177/58 03/11/24 05:00 97.8 100 97.8 03/11/24 02:48 Nasal Cannula* 2 28 Total Intake and Output 03/10/24 03/10/24 03/11/24 15:00 23:00 07:00 Intake Total 262.5 ml 262.5 ml Balance 262.5 ml 262.5 ml medications Current Medications Medications Dose Ordered Sig/Gerard Route Start Time Stop Time Status Last Admin Dose Admin Acetaminophen/ Hydrocodone Bitart 1 tab Q4HP PRN PO 03/08/24 16:45 03/09/24 14:02 1 TAB Ondansetron HCl 4 mg Q4HP PRN IV 03/08/24 16:45 03/10/24 22:55 4 MG Acetaminophen 650 mg Q6HP PRN PO 03/08/24 16:45 Morphine Sulfate 2 mg Q4HPRN PRN IV 03/08/24 16:45 03/11/24 04:31 2 MG Nitroglycerin 0.4 mg Q5MINP PRN SL 03/08/24 16:45 Morphine Sulfate 2 mg Q30M PRN IV 03/08/24 16:45 Vancomycin HCl 0 ml @ 0 mls/hr UD IV 03/08/24 21:00 Lorazepam 1 mg Q8HP PRN IV 03/08/24 23:15 03/08/24 23:33 1 MG Cefepime HCl 0.5 gm/Sodium Chloride 50 ml @ 12.5 mls/hr 2200 IV 03/10/24 22:00 03/10/24 22:00 12.5 MLS/HR Ipratropium [place] 0.5 mg Q6HWA NEB 03/09/24 18:00 03/10/24 18:31 0.5 MG Levalbuterol HCl 0.625 mg Q6HR NEB 03/09/24 18:00 03/11/24 00:32 0.625 MG Azithromycin 500 mg DAILY PO 03/10/24 10:00 03/10/24 10:53 500 MG Methylprednisolone Sodium Succinate 20 mg BID IV 03/11/24 10:00 objective Gen: on BiPAP HEENT: NC,AT Lungs: decreased breath sounds Cardiac: RRR, no murmur Abd: soft, no tenderness Ext: no edema + Lt radiocephalic AVF laboratory and microbiology Laboratory Tests 03/10/24 07:35 Test 03/10/24 07:35 Range/Units Serum Glucose 168 H 74-106 mg/dL Assessment/Plan Assessment: ESRD on HD via Lt forearm AVF Hyperkalemia Acute hypoxic respiratory failure on supplemental oxygen Acute on chronic diastolic CHF bilateral pneumonia DM HTN CAD s/p stents Anemia of CKD Metabolic acidosis Hyperphosphatemia Secondary hyperparathyroidism Leukocytosis Hyponatremia Plan: s/p HD Tuesday. 3 L net UF Next HD likely on Tuesday on broad spectrum IV antibiotics NEVAEH post HD as needed. goal Hb: 10-11 g/dl Plan discussed with: Patient ROSEANN DUBOSE MD Mar 11, 2024 06:14
[2024-03-11 07:06] LABS: Urine Bacteria None Seen /hpf (None Seen)
[2024-03-11 07:13] LABS: Urine Blood Negative /uL (Negative); Urine Clarity Clear (Clear); Urine Color Light-Yellow (Yellow); Urine Protein, UAD 3+ (Negative); Urine Specific Gravity 1.013 (1.001-1.035); Urine Squamous Epithelial Cell FEW /hpf (<5); Urine Urobilinogen Normal (Negative); Urine WBC 4 /hpf (0 - 3); Urine pH 8.5 (5.0-9.0)
[2024-03-11 07:40] LABS: Opiate Scree,Urine Neg (NEGATIVE)
[2024-03-11 07:42] LABS: Amphetamine Screen, Urine Neg (NEGATIVE); Barbiturate Scree,Urine Neg (NEGATIVE); Phencyclidine Screen, Urine Neg (NEGATIVE)
[2024-03-11 07:43] LABS: Benzodiazephine Screen, Urine Pos (NEGATIVE); Cannabinoid Screen, Urine Neg (NEGATIVE); Cocaine Screen, Urine Neg (NEGATIVE)
[2024-03-11] MEDS: methylPREDNISolone SOD SUCC 40 MG/ML VL IV SCH (11:50)
[2024-03-11] MEDS ORDERED: ALBUTEROL SULF 2.5 MG/0.5ML(0.5%) NEB SOLN NEB PRN (12:30)
[2024-03-11] MEDS ORDERED: IPRATROPIUM BROM 0.5 MG/2.5ML INH SOL NEB PRN (12:30)
--- NOTE | 2024-03-11 14:35 | DVHPN2 ---
Subjective Update -03/11 patient remains on nasal cannula oxygen to maintain saturations. He appears more asymptomatic, but still has a dry cough. On exam no further pedal edema but significant rales in bilateral lung lopez up to mid lungs. We will continue to treat patient to try to wean down oxygen. Patient may need further ESRD HD dialysis sessions to help remove volume. We will also try 1 time Lasix today. Continue BiPAP at night. Continue steroids, IV antibiotics, nebs q.4 H. 03/10 patient is feeling improved, remains on oxygen. He has been weaned off BiPAP. He was now more oriented and alert. Reviewed: H&P Changes from previous H/P or p: No Changes General: Per HPI Objective Vitals Vital Signs Date Time Temp Pulse Resp B/P (MAP) Pulse Ox O2 Delivery O2 Flow Rate FiO2 03/11/24 11:27 98 18 95 03/11/24 06:40 Nasal Cannula 6.0 03/11/24 06:40 44 03/11/24 05:01 177/58 03/11/24 05:00 97.8 97.8 Intake/Output Intake and Output 03/11/24 07:00 Intake Total 525.0 ml Balance 525.0 ml Intake Oral 225 ml IV Total 300.0 ml Exam GEN: Healthy appearing, well-developed, NAD. HEENT: NC/AT; MMM. CV: Systolic murmur dialysis fistula right upper extremity forearm LUNGS: Rales bilaterally up to mid lungs with end expiratory wheezing in upper airways. ABD: Soft, NT/ND, NBS, no masses or organomegaly. EXT: skin Warm, well perfused. no rashes. No clubbing, cyanosis, or edema. NEURO: Ambulating with no limitations. No focal deficits. Medications Current Medications Medications Dose Ordered Sig/Gerard Route Start Time Stop Time Status Last Admin Dose Admin Acetaminophen/ Hydrocodone Bitart 1 tab Q4HP PRN PO 03/08/24 16:45 03/09/24 14:02 1 TAB Ondansetron HCl 4 mg Q4HP PRN IV 03/08/24 16:45 03/10/24 22:55 4 MG Acetaminophen 650 mg Q6HP PRN PO 03/08/24 16:45 Morphine Sulfate 2 mg Q4HPRN PRN IV 03/08/24 16:45 03/11/24 04:31 2 MG Nitroglycerin 0.4 mg Q5MINP PRN SL 03/08/24 16:45 Morphine Sulfate 2 mg Q30M PRN IV 03/08/24 16:45 Vancomycin HCl 0 ml @ 0 mls/hr UD IV 03/08/24 21:00 Lorazepam 1 mg Q8HP PRN IV 03/08/24 23:15 03/08/24 23:33 1 MG Cefepime HCl 0.5 gm/Sodium Chloride 50 ml @ 12.5 mls/hr 2200 IV 03/10/24 22:00 03/10/24 22:00 12.5 MLS/HR Ipratropium [place] 0.5 mg Q6HWA [facility] 03/09/24 18:00 03/11/24 11:17 0.5 MG Levalbuterol HCl 0.625 mg Q6HR [facility] 03/09/24 18:00 03/11/24 11:16 0.625 MG Azithromycin 500 mg DAILY PO 03/10/24 10:00 03/11/24 11:50 500 MG Methylprednisolone Sodium Succinate 20 mg BID IV 03/11/24 10:00 03/11/24 11:50 20 MG Ipratropium [place] 0.5 mg Q4HPRN PRN NEB 03/11/24 12:30 UNV Albuterol 0.5 mg Q4HPRN PRN [facility] 03/11/24 12:30 UNV Furosemide 60 mg DAILY IV 03/12/24 10:00 UNV Laboratory Results Laboratory Tests 03/10/24 07:35 Urinalysis Test 03/11/24 06:45 Urine Color Light-yellow (Yellow) Urine Clarity Clear (Clear) Urine pH 8.5 (5.0-9.0) Urine Specific [place] 1.013 (1.001-1.035) Urine Protein 3+ (Negative) H Urine Ketones Negative (Negative) Urine Blood Negative /uL (Negative) Urine Nitrite Negative (Negative) Urine Bilirubin Negative (Negative) Urine Urobilinogen Normal mg/dL (Negative) Urine Leukocyte Esterase Negative /uL (Negative) Urine RBC 2 /hpf (0 - 3) Urine WBC 4 /hpf (0 - 3) Urine Squamous Epithelial Cells Few /hpf (<5) Urine Bacteria None seen /hpf (None Seen) Urine Glucose 3+ mg/dL (Normal) H Blood Gas Results Test 03/10/24 15:34 Arterial Blood pH 7.522 (7.350-7.450) FiO2 % 40.0 Microbiology Microbiology Date/Time Source Procedure Growth Status 03/11/24 10:30 Nose MRSA Screen - Final Complete 03/08/24 21:30 Blood Blood Culture - Preliminary NO GROWTH AFTER 48 HOURS OF INCUBATION. Resulted Labs and/or images reviewed: Labs reviewed by me, Image(s) reviewed by me Assessment/Plan Assessment/Plan Update -03/11 patient remains on nasal cannula oxygen to maintain saturations. He appears more asymptomatic, but still has a dry cough. On exam no further pedal edema but significant rales in bilateral lung lopez up to mid lungs. We will continue to treat patient to try to wean down oxygen. Patient may need further ESRD HD dialysis sessions to help remove volume. We will also try 1 time Lasix today. Continue BiPAP at night. Continue steroids, IV antibiotics, nebs q.4 H. # Acute hypoxic respiratory failure # Acute on chronic COPD exacerbation # Pneumonia, Gram-negative Gram-positive atypical likely # Sirs without end-organ damage # Sepsis likely from pneumonia # Current smoker # Leukocytosis # Neutrophilia - patient continues to smoke, presenting with shortness of breath and chest tightness. COVID flu negative, requiring nasal cannula oxygen, he was not on home oxygen. Requiring BiPAP and needing continuous BiPAP. Upgraded to BLANCA. CXR concerning for pneumonia - labs with leukocytosis and neutrophilia. Concerning for infection. -echo done 03/10 showing EF 35% and few wall motion abnormalities. - start antibiotics broad-spectrum, vanc cefepime azithromycin - still have volume, we will try to do minimal Lasix diuresis - q.4 hours duo nebs, bipap qhs -IV steroids Solu-Medrol 20 b.i.d. -smoking cessation counseling -oxygen goal 88-92% wean olff to goal as best as possible. # ESRD on HD TTS nephro consulted, continue scheduled HD # HFrEF-EF 35% with WMA. patient continues to make urine despite being ESRD, we will hold off further Lasix as patient appears euvolemic after HD sessions. # History [place]/CAD SP PTCA-continue home meds Diet renal GI prophylaxis - protonix iv daily. DVT prophylaxis-Lovenox Med tele Full code Plan discussed with: Patient My Orders Orders - BILLY DAVISON MD Procedure Category Date Status Time Methylprednisolone PHA 03/11/24 In Process Sod Succ (Solu Medrol 10:00 Ipratropium Medneb PHA 03/11/24 Logged (Atrovent Medneb) 12:30 Albuterol Medneb PHA 03/11/24 Logged (Ventolin Medneb) 12:30 Furosemide Injection PHA 03/11/24 Logged (Lasix Injection) 14:30 Furosemide Injection PHA 03/12/24 Logged (Lasix Injection) 10:00 Date of Service: Mar 11, 2024 Billing Provider: BILLY DAVISON MD Common Visit Codes: [id number] INP/OBS CARE(HIGH) BILLY DAVISON MD Mar 11, 2024 14:35
[2024-03-11] MEDS: FUROSEMIDE 100 MG/10ML VIAL IV ONE (15:18)
--- NOTE | 2024-03-11 19:56 | DVHPN2 ---
Progress Note - Dictate Date Seen: Mar 11, 2024 Medical Necessity Reason Pt with a Central, PICC or Fol: No Subjective patient remains on nasal cannula oxygen to maintain saturations. more asymptomatic, but still has a dry cough. on bipap Chest x-ray : 03/10/2024 reviewed No MRSA detected vital signs Vital Sign Date Time Temp Pulse Resp B/P (MAP) Pulse Ox O2 Delivery O2 Flow Rate FiO2 03/11/24 18:24 102 18 92 03/11/24 18:14 Nasal Cannula* 2 28 03/11/24 15:18 107/67 03/11/24 05:00 97.8 97.8 Total Intake and Output 03/10/24 03/10/24 03/11/24 15:00 23:00 07:00 Intake Total 262.5 ml 262.5 ml Balance 262.5 ml 262.5 ml medications Current Medications Medications Dose Ordered Sig/Gerard Route Start Time Stop Time Status Last Admin Dose Admin Acetaminophen/ Hydrocodone Bitart 1 tab Q4HP PRN PO 03/08/24 16:45 03/09/24 14:02 1 TAB Ondansetron HCl 4 mg Q4HP PRN IV 03/08/24 16:45 03/10/24 22:55 4 MG Acetaminophen 650 mg Q6HP PRN PO 03/08/24 16:45 Morphine Sulfate 2 mg Q4HPRN PRN IV 03/08/24 16:45 03/11/24 04:31 2 MG Nitroglycerin 0.4 mg Q5MINP PRN SL 03/08/24 16:45 Morphine Sulfate 2 mg Q30M PRN IV 03/08/24 16:45 Vancomycin HCl 0 ml @ 0 mls/hr UD IV 03/08/24 21:00 Lorazepam 1 mg Q8HP PRN IV 03/08/24 23:15 03/08/24 23:33 1 MG Ipratropium [place] 0.5 mg Q6HWA NEB 03/09/24 18:00 03/11/24 18:14 0.5 MG Levalbuterol HCl 0.625 mg Q6HR NEB 03/09/24 18:00 03/11/24 18:14 0.625 MG Azithromycin 500 mg DAILY PO 03/10/24 10:00 03/11/24 11:50 500 MG Methylprednisolone Sodium Succinate 20 mg BID IV 03/11/24 10:00 03/11/24 11:50 20 MG Ipratropium [place] 0.5 mg Q4HPRN PRN NEB 03/11/24 12:30 Albuterol 0.5 mg Q4HPRN PRN NEB 03/11/24 12:30 Furosemide 60 mg DAILY IV 03/12/24 10:00 Cefepime HCl 0.5 gm/Dextrose 50 ml @ 12.5 mls/hr 2200 IV 03/11/24 22:00 objective General alert and oriented HEENT: Atraumatic Neck: No swelling Lungs: Equal air entry and clear to auscultation Cardiovascular: S2 heard no murmur Abdomen: Soft nontender, no organomegaly, nondistended Neuro: Alert and oriented, no focal deficit Psych: Normal mood and affect laboratory and microbiology Laboratory Tests 03/10/24 07:35 Test 03/10/24 07:35 Range/Units Serum Glucose 168 H 74-106 mg/dL Assessment/Plan A 59 male with multifocal pneumonia Acute hypoxic respiratory failure pulmonary edema ESRD on HD recommendations continue oxygenation possibly pulmonary edema, HD might improve O2 continue broad spectrum antibiotics, relatively sick sputum culture MRSA NAAT flu/ covid is negative thank you for opportunity to take care of the patient. KIMBERLY DE LA TORRE MD Mar 11, 2024 19:56
[2024-03-11] MEDS: CEFEPIME 0.5 GM in D5W 5% 50 ML IV SCH (21:26)
[2024-03-12] VITALS (19 sets, daily range): BP systolic 143–194; BP diastolic 53–102; PULSE 82–101; RESP 16–94; TEMP 98–98.6; O2SAT 90–100
[2024-03-12] MEDS: hydrALAZINE HCL 25 MG TAB PO ONE (04:54)
[2024-03-12 07:43] LABS: Anion Gap 11 (5-15); BUN/Creatinine Ratio 7.7 (10.0-20.0); Calcium 9.8 mg/dL (8.7-10.4); Carbon Dioxide 25 mmol/L (20-31); Chloride 99 mmol/L (98-107); Potassium 5.1 mmol/L (3.5-5.1)
[2024-03-12 07:44] LABS: Albumin 3.8 g/dL (3.2-4.8); Aspartate Aminotransferase 38 U/L (13-40)
[2024-03-12 07:45] LABS: Bilirubin, Total 0.4 mg/dL (0.2-1.0); Total Protein 6.6 g/dL (5.7-8.2)
[2024-03-12] MEDS: FUROSEMIDE 100 MG/10ML VIAL IV SCH ×2 (07:50→10:00)
[2024-03-12 07:51] LABS: Alanine Aminotransferase 49 U/L (7-40); Alkaline Phosphatase 123 U/L (46-116); Blood Urea Nitrogen 62 mg/dL (9-23); Glucose 239 mg/dL (74-106); Sodium 135 mmol/L (136-145)
[2024-03-12 07:58] LABS: Hematocrit 27.1 % (41.0-53.0); Hemoglobin 9.1 g/dL (13.5-17.5); Mean Corpuscular Hemoglobin 31.9 pg (28.0-32.0); Mean Corpuscular Hgb Conc. 33.5 g/dL (32.0-36.0); Mean Corpuscular Volume 95.1 fL (80.0-100.0); Platelet Count (auto) 183 10^3/uL (140-450); Red Blood Cells 2.85 10^6/uL (4.5-5.90); Red Cell Distribution Width 17.3 % (11.8-14.3); White Blood Cell 11.6 10^3/uL (4.4-10.8)
[2024-03-12 08:09] LABS: Band Neutrophils % (manual) 0; Basophils % (manual) 0 (0.0-2.0); Blast Cells 0; Eosinophils % (manual) 0 (0-7); Metamyelocytes % 0; Myelocytes % 0; Promyelocytes % 0; Reactive Lymphocytes 0
[2024-03-12 09:06] LABS: Hepatitis B Surface Antigen Negative (Negative)
[2024-03-12 09:11] LABS: Lymphocytes % (manual) 8 (10.0-50.0); Monocytes % (manual) 4 (0-12); Platelet Estimate Adequate
--- NOTE | 2024-03-12 09:11 | DVHINCON2 ---
Date Seen: Mar 12, [address] Collins Reason for Consultation Chest pain History of Present Illness 59-year-old gentleman with a complex past medical history presents with a recent trip exacerbation of chest pain shortness of breath hyperkalemia and hypertension. He has been in the hospital for last three days. He states he did get better with nitroglycerin pedis blood pressure has been accelerated and he has not been started on his usual medications. He does have a past medical history of CAD as noted. Past Medical History Past medical history significant for COPD. Hypertension. Hyperlipidemia. Coronary artery disease. Congestive heart failure. Renal insufficiency on dialysis. History of previous stenting of the RCA circumflex and LAD. Last angiographic evaluation was in December showing mild in stent restenosis. Past Surgical History Status post cholecystectomy. History of hip surgery. Family History: Diabetes mellitus G8 MOTHER, Onset:Unknown G8 FATHER, Onset:Unknown Hypertension G8 FATHER, Onset:Unknown Allergies: Coded Allergies: Penicillins (Verified Allergy, Unknown, 09/19/23) Tetanus Toxoid (Verified Allergy, Unknown, 09/19/23) Home Meds Active Scripts Sodium Zirconium Cyclosilicate (Lokelma) 10 Gm Hernandez, 10 GM PO DAILY, #10 PACK Prov:ENDY CORTÉS MD 03/04/24 Clopidogrel Bisulfate (CLOPIDOGREL) 75 Mg Tab, 75 MG PO DAILY for 30 Days, #30 TAB Prov:LEÓN COLLINS MD 08/16/23 Reported Medications Irbesartan (Avapro) 300 Mg Tab, 1 TAB PO DAILY, #30 TAB 5 Refills 03/04/24 Furosemide (Lasix) 40 Mg Tab, 40 MG PO DAILY, TAB 03/04/24 Amlodipine Besylate (NORVASC TABLET) 5 Mg Tb, 2 TAB PO DAILY, #30 TAB 5 Refills 03/04/24 Isosorbide Mononitrate (Isosorbide Mononitrate Er) 30 Mg Tab, 30 MG PO DAILY for CAD, MG 09/19/23 Insulin Glargine (Basaglar Kwikpen) 100 Unit/Ml Inj, 100 UNIT SC for DIABETES, INJ 09/19/23 Calcium Acetate (Phosphate Bin (Calcium Acetate) 667 Mg Cap, 667 MG PO TIDWM for DIALYSIS, MG 09/19/23 Sodium Zirconium Cyclosilicate (Lokelma) 5 Gm Hernandez, 5 GM PO DAILY for HYPERKALEMIA, PACK 09/19/23 Atorvastatin Calcium (ATORVASTATIN CALCIUM) 40 Mg Tab, 1 TAB PO DAILY for HIGH CHOLESTEROL, #30 TAB 5 Refills 09/19/23 Swmvdzjslb-Gohgrtpykafzzb-Oewu (Breztri Aerosphere 160-9-4.8 Mcg/Act) 1 Aer Aer, 1 AER IN BID for COPD, AER 09/19/23 Albuterol Sulfate (Ventolin) 2.5 Mg/3 Ml Nb, 2.5 MG NEB Q4HP PRN for SHORTNESS OF BREATH, INH 09/19/23 Ranolazine (Ranolazine ER) 500 Mg Tab, 500 MG PO BID for CAD, TAB 09/19/23 Metoprolol Succinate (Metoprolol Succinate Er) 200 Mg Tab, 1 TAB PO DAILY for HTN 08/16/23 Diazepam (VALIUM TABLET) 5 Mg Tb, 5 MG GT PRN PRN for ANXIETY, TAB 08/14/23 Hydralazine Hcl (Hydralazine Hcl) 100 Mg Tab, 1 TAB PO TID, #90 TAB 5 Refills 08/14/23 Gabapentin (Gabapentin) 100 Mg Cap, 1 CAP PO TID, #90 CAP 2 Refills 08/14/23 Pantoprazole Sodium Sesquihydr (Protonix) 40 Mg Tab, 40 MG PO QAM, #30 TAB 08/14/23 Aspirin (Aspir-81) 81 Mg Tab, 1 TAB PO QAM, #30 TAB 5 Refills 08/14/23 Allopurinol (ZYLOPRIM TABLET) 100 Mg Tb, 1 TAB PO QAM, #30 TAB 5 Refills 08/14/23 Current Medications Current Medications Medications (Trade) Dose Ordered Sig/Gerard Route PRN Reason Start Time Stop Time Status Last Admin Methylprednisolone Sodium Succinate (Solu Medrol) 20 mg BID IV 03/11/24 10:00 03/12/24 09:00 Ipratropium [place] (Atrovent Medneb) 0.5 mg Q4HPRN PRN NEB SHORTNESS OF BREATH 03/11/24 12:30 Albuterol (Ventolin Medneb) 0.5 mg Q4HPRN PRN NEB SHORTNESS OF BREATH 03/11/24 12:30 Furosemide (Lasix Injection) 60 mg DAILY IV 03/12/24 10:00 03/12/24 07:50 Cefepime HCl 0.5 gm/Dextrose 50 ml @ 12.5 mls/hr 2200 IV 03/11/24 22:00 03/11/24 21:26 Hydralazine HCl (Apresoline Injection) 10 mg Q6HP PRN IV SBP>170 03/12/24 09:00 UNV Amlodipine Besylate (Norvasc Tablet) 10 mg DAILY PO 03/12/24 10:00 UNV Patient Own Medication 1 tab DAILY PO 03/12/24 10:00 UNV Patient Own Medication 1 tab DAILY PO 03/12/24 10:00 UNV Clonidine HCl (Catapres Tablet) 0.2 mg DAILY PO 03/13/24 10:00 UNV Review of Systems From a constitutional standpoint of fevers chills or weight loss. Cardiac and respiratory as noted above. Neurological with a history of pseudoseizures. GI and musculoskeletal as noted above endocrine hematologic oncologic and genitourinary with a history of dialysis was noted. Hematologically and oncologically negative. Vital Signs Vital Signs Date Time Temp Pulse Resp B/P (MAP) Pulse Ox O2 Delivery O2 Flow Rate FiO2 03/12/24 09:01 89 16 205/99 03/12/24 08:40 98.5 96 98.5 03/12/24 07:36 Nasal Cannula 4.0 03/12/24 07:36 36 Physical Exam Gallstones were stable. HEENT examination was unremarkable Maryanne well- hydrated. Mild shoulder distention no bruits. Lungs glucose one drinks. Heart exam reveals regular S1-S2 soft S4. no S3. Grade 1/6 systolic ejection murmur. Abdominal examination was unremarkable. Extremities reveal artery perfusion without clubbing or cyanosis no edema. Neurologically intact. Integumentary shows was normal. Labs/Diagnostic Data Labs Test 03/12/24 06:52 03/11/24 06:55 03/11/24 06:45 03/10/24 15:34 Range/Units White Blood Count 11.6 H 4.4-10.8 10^3/uL Red Blood Count 2.85 L 4.5-5.90 10^6/uL Hemoglobin 9.1 L 13.5-17.5 g/dL Hematocrit 27.1 L 41.0-53.0 % Mean Corpuscular Volume 95.1 80.0-100.0 fL Mean Corpuscular Hemoglobin 31.9 28.0-32.0 pg Mean Corpuscular Hemoglobin Concent 33.5 32.0-36.0 g/dL Red Cell Distribution Width 17.3 H 11.8-14.3 % Platelet Count 183 140-450 10^3/uL Mean Platelet Volume 7.5 6.9-10.8 fL Neutrophils (%) (Auto) 37.0-80.0 % Lymphocytes (%) (Auto) 10.0-50.0 % Monocytes (%) (Auto) 0.0-12.0 % Basophils (%) (Auto) 0.0-2.0 % Neutrophils # (Auto) 1.6-8.6 10 ^3/uL Lymphocytes # (Auto) 0.4-5.4 10 ^3/uL Monocytes # (Auto) 0-1.3 10 ^3/uL Sodium Level 135 L 136-145 mmol/L Potassium Level 5.1 3.5-5.1 mmol/L Chloride Level 99 98-107 mmol/L Carbon Dioxide Level 25 20-31 mmol/L Anion Gap 11 5-15 Blood Urea Nitrogen 62 H 9-23 mg/dL Creatinine 8.04 H 0.700-1.30 mg/dL Glomerular Filtration Rate Calc 7 >90 mL/min BUN/Creatinine Ratio 7.7 L 10.0-20.0 Serum Glucose 239 H 74-106 mg/dL Calcium Level 9.8 8.7-10.4 mg/dL Total Bilirubin 0.4 0.2-1.0 mg/dL Aspartate Amino Transferase (AST) 38 13-40 U/L Alanine Aminotransferase (ALT) 49 H 7-40 U/L Alkaline Phosphatase 123 H 46-116 U/L Total Protein 6.6 5.7-8.2 g/dL Albumin 3.8 3.2-4.8 g/dL Random Vancomycin Level 22.3 H 5-10 ug/mL Urine Color Light-yellow Yellow Urine Clarity Clear Clear Urine pH 8.5 5.0-9.0 Urine Specific [place] 1.013 1.001-1.035 Urine Protein 3+ H Negative Urine Ketones Negative Negative Urine Blood Negative Negative /uL Urine Nitrite Negative Negative Urine Bilirubin Negative Negative Urine Urobilinogen Normal Negative mg/dL Urine Leukocyte Esterase Negative Negative /uL Urine RBC 2 0 - 3 /hpf Urine WBC 4 0 - 3 /hpf Urine Squamous Epithelial Cells Few <5 /hpf Urine Bacteria None seen None Seen /hpf Urine Glucose 3+ H Normal mg/dL Urine Opiates Screen Neg NEGATIVE Urine Fentanyl Screen Neg NEGATIVE Urine Barbiturates Screen Neg NEGATIVE Urine Phencyclidine Screen Neg NEGATIVE Urine Amphetamines Screen Neg NEGATIVE Urine Benzodiazepines Screen Pos NEGATIVE Urine Cocaine Screen Neg NEGATIVE Urine Cannabinoids Screen Neg NEGATIVE Blood Gas Specimen Type Arterial Blood Gas Sample Site Right brachial Blood Gas Patient Temperature 37.0 Arterial Blood Date Drawn [id number] Arterial Blood pH 7.522 H 7.350-7.450 Arterial Blood Partial Pressure CO2 35.2 35.0-48.0 mmHg Arterial Blood Partial Pressure O2 65.0 L 83.0-108.0 mmHg Arterial Blood HCO3 28.2 H 21.0-28.0 mmol/L Arterial Blood Oxygen Saturation 92.4 L 94.0-98.0 % Arterial Blood Base Excess 5.4 H -2.0-3.0 mmol/L Arterial Blood Oxyhemoglobin 91.1 L 94.0-98.0 % Arterial Blood Carboxyhemoglobin 1.0 0.5-1.5 % Arterial Blood Methemoglobin 0.4 0.0-1.5 % Benson Test Yes Blood Gas Total Hemoglobin 12.20 L 13.5-17.5 g/dL Blood Gas Liter Flow 5.00 Blood Gas Modality Nasal cannula FiO2 % 40.0 Test 03/10/24 07:35 03/09/24 16:40 03/09/24 16:30 03/08/24 14:10 Range/Units Eosinophils (%) (Auto) 0.0 0.0-7.0 % Eosinophils # (Auto) 0 0-0.8 10 ^3/uL Basophils # (Auto) 0.2 0-0.2 10 ^3/uL Nucleated Red Blood Cells 0.0 % Thyroid Stimulating Hormone (TSH) 3.14 0.55-4.78 uIU/mL Plasma/Serum Blood Alcohol < 3.0 <10 mg/dL Lactic Acid Level 1.1 0.4-2.0 mmol/L Blood Gas Set Respiration Rate 12.0 Blood Gas EPAP 6 Blood Gas IPAP 12 Test 03/08/24 13:34 03/08/24 12:50 03/08/24 09:40 03/08/24 09:36 Range/Units Troponin I High Sensitivity 18 </=54 ng/L POC Glucose 133 H 70-106 mg/dl Influenza Type A Antigen Negative Negative Influenza Type B Antigen Negative Negative SARS-CoV-2 Antigen (Rapid) Negative NEGATIVE B-Type Natriuretic Peptide 1566.16 0-100 pg/mL Microbiology Date/Time Source Procedure Growth Status 03/11/24 10:30 Nose MRSA Screen - Final Complete 03/08/24 21:30 Blood Blood Culture - Preliminary NO GROWTH AFTER 72 HOURS OF INCUBATION. Resulted Assessment Electrolyte imbalance. Accelerated hypertension. End-stage renal disease. On dialysis. Coronary artery disease. Angina secondary to accelerated hypertension. Last angiographic evaluation revealed no significant stenosis. D iminished ejection fraction secondary to accelerated hypertension. Ejection fraction eight weeks ago was within normal limits. Plan/Recommendation From a cardiac standpoint the patient will have his blood pressure medications were re-initiated. Electrolyte imbalance corrected. Continue with CPAP for COPD and obstructive sleep apnea. Unless further symptoms develop no further cardiac testing required at this time. Suggest aggressive blood pressure control and electrolyte correction. Plan discussed with: Patient Date of Service: Mar 12, 2024 Billing Provider: CATHERINE FISHER Sr., MD Cardiology Common Codes: [id number] INP/OBS CARE (High) CATHERINE FISHER Sr., MD Mar 12, 2024 09:11
[2024-03-12 09:12] LABS: RBC Morphology Normal
[2024-03-12 09:17] LABS: Hepatitis A Ab IgM Negative; Hepatitis B Core IgM Negative (Negative); Hepatitis C Antibody Negative (Negative)
[2024-03-12] MEDS: amLODIPine BESYLATE 5 MG TAB PO SCH (10:36)
[2024-03-12] MEDS: cloNIDine HCL 0.1 MG TAB PO ONE (10:37)
[2024-03-12] MEDS ORDERED: diazePAM 5 MG TAB GT PRN (11:45)
[2024-03-12] MEDS: CALCIUM ACETATE 667 MG CAP PO SCH (12:13)
[2024-03-12] MEDS: hydrALAZINE HCL 20 MG/ML VL IV PRN (12:14)
[2024-03-12] MEDS: GABAPENTIN 100 MG CAP PO SCH (13:54)
--- NOTE | 2024-03-12 14:45 | DVHPN2 ---
Progress Note - Dictate Date Seen: Mar 12, 2024 Medical Necessity Reason Pt with a Central, PICC or Fol: No Subjective no acute issues overnight vital signs Vital Sign Date Time Temp Pulse Resp B/P (MAP) Pulse Ox O2 Delivery O2 Flow Rate FiO2 03/12/24 12:50 98.4 101 16 187/96 (126) 94 98.4 03/12/24 12:03 Nasal Cannula 3.0 03/12/24 12:03 32 Total Intake and Output 03/11/24 03/11/24 03/12/24 15:00 23:00 07:00 Intake Total 950 ml 850 ml Balance 950 ml 850 ml medications Current Medications Medications Dose Ordered Sig/Gerard Route Start Time Stop Time Status Last Admin Dose Admin Acetaminophen/ Hydrocodone Bitart 1 tab Q4HP PRN PO 03/08/24 16:45 03/12/24 06:57 1 TAB Ondansetron HCl 4 mg Q4HP PRN IV 03/08/24 16:45 03/10/24 22:55 4 MG Acetaminophen 650 mg Q6HP PRN PO 03/08/24 16:45 Morphine Sulfate 2 mg Q4HPRN PRN IV 03/08/24 16:45 03/12/24 09:01 2 MG Nitroglycerin 0.4 mg Q5MINP PRN SL 03/08/24 16:45 Morphine Sulfate 2 mg Q30M PRN IV 03/08/24 16:45 Vancomycin HCl 0 ml @ 0 mls/hr UD IV 03/08/24 21:00 Lorazepam 1 mg Q8HP PRN IV 03/08/24 23:15 03/08/24 23:33 1 MG Ipratropium [place] 0.5 mg Q6HWA NEB 03/09/24 18:00 03/12/24 12:03 0.5 MG Levalbuterol HCl 0.625 mg Q6HR NEB 03/09/24 18:00 03/12/24 12:03 0.625 MG Azithromycin 500 mg DAILY PO 03/10/24 10:00 03/12/24 09:00 500 MG Methylprednisolone Sodium Succinate 20 mg BID IV 03/11/24 10:00 03/12/24 09:00 20 MG Ipratropium [place] 0.5 mg Q4HPRN PRN NEB 03/11/24 12:30 Albuterol 0.5 mg Q4HPRN PRN NEB 03/11/24 12:30 Cefepime HCl 0.5 gm/Dextrose 50 ml @ 12.5 mls/hr 2200 IV 03/11/24 22:00 03/11/24 21:26 12.5 MLS/HR Hydralazine HCl 10 mg Q6HP PRN IV 03/12/24 09:00 03/12/24 12:14 10 MG Amlodipine Besylate 10 mg DAILY PO 03/12/24 10:00 03/12/24 10:36 10 MG Losartan Potassium 100 mg DAILY PO 03/13/24 10:00 Metoprolol Succinate 200 mg DAILY PO 03/13/24 10:00 Clonidine HCl 0.2 mg DAILY PO 03/13/24 10:00 Allopurinol 100 mg QAM PO 03/13/24 07:00 Aspirin 81 mg QAM PO 03/13/24 07:00 Calcium Acetate 667 mg TIDWM PO 03/12/24 12:00 03/12/24 12:13 667 MG Clopidogrel Bisulfate 75 mg DAILY PO 03/13/24 10:00 Diazepam 5 mg PRN PRN GT 03/12/24 11:45 Furosemide 40 mg DAILY PO 03/13/24 10:00 Gabapentin 100 mg TID PO 03/12/24 14:00 03/12/24 13:54 100 MG Pantoprazole Sodium 40 mg QAM PO 03/13/24 07:00 Ranolazine 500 mg BID PO 03/12/24 22:00 objective Gen: on supplemental oxygenation HEENT: NC,AT Lungs: decreased breath sounds Cardiac: RRR, no murmur Abd: soft, no tenderness Ext: no edema + Lt radiocephalic AVF laboratory and microbiology Laboratory Tests 03/12/24 06:52 Test 03/12/24 06:52 Range/Units Serum Glucose 239 H 74-106 mg/dL Problem List ESRD on HD via Lt forearm AVF Hyperkalemia Acute hypoxic respiratory failure on supplemental oxygen Acute on chronic diastolic CHF bilateral pneumonia DM HTN CAD s/p stents Anemia of CKD Metabolic acidosis Hyperphosphatemia Secondary hyperparathyroidism Leukocytosis Hyponatremia Assessment/Plan Plan: s/p HD Tuesday. 3 L net UF Next HD on Tuesday on broad spectrum IV antibiotics for pneumonia NEVAEH post HD as needed. goal Hb: 10-11 g/dl Plan discussed with: NETTIE Garcia MD Mar 12, 2024 14:44
[2024-03-12] MEDS: LOSARTAN POTASSIUM 50 MG TAB PO ONE (17:45)
--- NOTE | 2024-03-12 18:38 | DVHPN2 ---
Progress Note - Dictate Date Seen: Mar 12, 2024 Medical Necessity Reason Pt with a Central, PICC or Fol: No Subjective Patient remains on 1L nasal cannula oxygen to maintain saturations. vital signs Vital Sign Date Time Temp Pulse Resp B/P (MAP) Pulse Ox O2 Delivery O2 Flow Rate FiO2 03/12/24 17:45 182/90 03/12/24 16:55 98.0 84 18 93 98.0 03/12/24 12:03 Nasal Cannula 3.0 03/12/24 12:03 32 Total Intake and Output 03/11/24 03/11/24 03/12/24 15:00 23:00 07:00 Intake Total 950 ml 850 ml Balance 950 ml 850 ml medications Current Medications Medications Dose Ordered Sig/Gerard Route Start Time Stop Time Status Last Admin Dose Admin Acetaminophen/ Hydrocodone Bitart 1 tab Q4HP PRN PO 03/08/24 16:45 03/12/24 06:57 1 TAB Ondansetron HCl 4 mg Q4HP PRN IV 03/08/24 16:45 03/10/24 22:55 4 MG Acetaminophen 650 mg Q6HP PRN PO 03/08/24 16:45 Morphine Sulfate 2 mg Q4HPRN PRN IV 03/08/24 16:45 03/12/24 09:01 2 MG Nitroglycerin 0.4 mg Q5MINP PRN SL 03/08/24 16:45 Morphine Sulfate 2 mg Q30M PRN IV 03/08/24 16:45 Vancomycin HCl 0 ml @ 0 mls/hr UD IV 03/08/24 21:00 Lorazepam 1 mg Q8HP PRN IV 03/08/24 23:15 03/08/24 23:33 1 MG Ipratropium [place] 0.5 mg Q6HWA NEB 03/09/24 18:00 03/12/24 12:03 0.5 MG Levalbuterol HCl 0.625 mg Q6HR NEB 03/09/24 18:00 03/12/24 12:03 0.625 MG Azithromycin 500 mg DAILY PO 03/10/24 10:00 03/12/24 09:00 500 MG Methylprednisolone Sodium Succinate 20 mg BID IV 03/11/24 10:00 03/12/24 09:00 20 MG Ipratropium [place] 0.5 mg Q4HPRN PRN NEB 03/11/24 12:30 Albuterol 0.5 mg Q4HPRN PRN NEB 03/11/24 12:30 Cefepime HCl 0.5 gm/Dextrose 50 ml @ 12.5 mls/hr 2200 IV 03/11/24 22:00 03/11/24 21:26 12.5 MLS/HR Hydralazine HCl 10 mg Q6HP PRN IV 03/12/24 09:00 03/12/24 12:14 10 MG Amlodipine Besylate 10 mg DAILY PO 03/12/24 10:00 03/12/24 10:36 10 MG Losartan Potassium 100 mg DAILY PO 03/13/24 10:00 Clonidine HCl 0.2 mg DAILY PO 03/13/24 10:00 Allopurinol 100 mg QAM PO 03/13/24 07:00 Aspirin 81 mg QAM PO 03/13/24 07:00 Calcium Acetate 667 mg TIDWM PO 03/12/24 12:00 03/12/24 17:44 667 MG Clopidogrel Bisulfate 75 mg DAILY PO 03/13/24 10:00 Diazepam 5 mg PRN PRN GT 03/12/24 11:45 Furosemide 40 mg DAILY PO 03/13/24 10:00 Gabapentin 100 mg TID PO 03/12/24 14:00 03/12/24 13:54 100 MG Pantoprazole Sodium 40 mg QAM PO 03/13/24 07:00 Ranolazine 500 mg BID PO 03/12/24 22:00 Carvedilol 6.25 mg Q12HR PO 03/12/24 22:00 objective General: Patient is on supplemental oxygenation HEENT: Atraumatic Neck: No swelling Lungs: Decreased breath sounds Cardiovascular: S2 heard no murmur Abdomen: Soft nontender, no organomegaly, nondistended Neuro: Alert and oriented, no focal deficit laboratory and microbiology Laboratory Tests 03/12/24 06:52 Test 03/12/24 06:52 Range/Units Serum Glucose 239 H 74-106 mg/dL Assessment/Plan Patient is a 59-year-old male presented to the hospital with Multifocal pneumonia Acute hypoxic respiratory failure pulmonary edema ESRD on HD Recommendations Continue oxygenation possibly pulmonary edema, HD might improve O2 continue broad spectrum antibiotics, relatively sick 03/11, Sputum culture showed Normal Oropharyngeal [place] 03/11, MRSA NAAT: Negative flu/ covid is negative Thank you for opportunity to take care of the patient. KIMBERLY DE LA TORRE MD Mar 12, 2024 18:38
[2024-03-12] MEDS ORDERED: LEVO750T40 PO (18:59)
[2024-03-12] MEDS ORDERED: PRED20TA2 PO (18:59)
[2024-03-12] MEDS ORDERED: LEVO500T91 PO (18:59)
--- NOTE | 2024-03-12 19:04 | DVHDS2 ---
Discharge Summary Date of Admission Mar 08, 2024 at 16:37 Date of Discharge: Mar 12, 2024 Labs/Diagnostic Data: Laboratory Results Test 03/12/24 06:52 03/11/24 06:55 03/11/24 06:45 03/10/24 15:34 White Blood Count 11.6 10^3/uL (4.4-10.8) Red Blood Count 2.85 10^6/uL (4.5-5.90) Hemoglobin 9.1 g/dL (13.5-17.5) Hematocrit 27.1 % (41.0-53.0) Mean Corpuscular Volume 95.1 fL (80.0-100.0) Mean Corpuscular Hemoglobin 31.9 pg (28.0-32.0) Mean Corpuscular Hemoglobin Concent 33.5 g/dL (32.0-36.0) Red Cell Distribution Width 17.3 % (11.8-14.3) Platelet Count 183 10^3/uL (140-450) Mean Platelet Volume 7.5 fL (6.9-10.8) Neutrophils (%) (Auto) % (37.0-80.0) Lymphocytes (%) (Auto) % (10.0-50.0) Monocytes (%) (Auto) % (0.0-12.0) Basophils (%) (Auto) % (0.0-2.0) Neutrophils # (Auto) 10 ^3/uL (1.6-8.6) Lymphocytes # (Auto) 10 ^3/uL (0.4-5.4) Monocytes # (Auto) 10 ^3/uL (0-1.3) Differential Total Cells Counted 100.0 (100) Neutrophils % (Manual) 88 (37.0-80.0) Band Neutrophils % (Manual) 0 Lymphocytes % (Manual) 8 (10.0-50.0) Monocytes % (Manual) 4 (0-12) Eosinophils % (Manual) 0 (0-7) Basophils % (Manual) 0 (0.0-2.0) Metamyelocytes % (manual) 0 Myelocytes % (Manual) 0 Promyelocytes % (Manual) 0 Blast Cells % (Manual) 0 Reactive Lymphocytes 0 Platelet Estimate Adequate Clumped Platelets Red Blood Cell Morphology Normal Sodium Level 135 mmol/L (136-145) Potassium Level 5.1 mmol/L (3.5-5.1) Chloride Level 99 mmol/L (98-107) Carbon Dioxide Level 25 mmol/L (20-31) Anion Gap 11 (5-15) Blood Urea Nitrogen 62 mg/dL (9-23) Creatinine 8.04 mg/dL (0.700-1.30) Glomerular Filtration Rate Calc 7 mL/min (>90) BUN/Creatinine Ratio 7.7 (10.0-20.0) Serum Glucose 239 mg/dL (74-106) Calcium Level 9.8 mg/dL (8.7-10.4) Total Bilirubin 0.4 mg/dL (0.2-1.0) Aspartate Amino Transferase (AST) 38 U/L (13-40) Alanine Aminotransferase (ALT) 49 U/L (7-40) Alkaline Phosphatase 123 U/L (46-116) Total Protein 6.6 g/dL (5.7-8.2) Albumin 3.8 g/dL (3.2-4.8) Random Vancomycin Level 22.3 ug/mL (5-10) Urine Color Light-yellow (Yellow) Urine Clarity Clear (Clear) Urine pH 8.5 (5.0-9.0) Urine Specific [place] 1.013 (1.001-1.035) Urine Protein 3+ (Negative) Urine Ketones Negative (Negative) Urine Blood Negative /uL (Negative) Urine Nitrite Negative (Negative) Urine Bilirubin Negative (Negative) Urine Urobilinogen Normal mg/dL (Negative) Urine Leukocyte Esterase Negative /uL (Negative) Urine RBC 2 /hpf (0 - 3) Urine WBC 4 /hpf (0 - 3) Urine Squamous Epithelial Cells Few /hpf (<5) Urine Bacteria None seen /hpf (None Seen) Urine Glucose 3+ mg/dL (Normal) Urine Opiates Screen Neg (NEGATIVE) Urine Fentanyl Screen Neg (NEGATIVE) Urine Barbiturates Screen Neg (NEGATIVE) Urine Phencyclidine Screen Neg (NEGATIVE) Urine Amphetamines Screen Neg (NEGATIVE) Urine Benzodiazepines Screen Pos (NEGATIVE) Urine Cocaine Screen Neg (NEGATIVE) Urine Cannabinoids Screen Neg (NEGATIVE) Blood Gas Specimen Type Arterial Blood Gas Sample Site Right brachial Blood Gas Patient Temperature 37.0 Arterial Blood Date Drawn [id number] Arterial Blood pH 7.522 (7.350-7.450) Arterial Blood Partial Pressure CO2 35.2 mmHg (35.0-48.0) Arterial Blood Partial Pressure O2 65.0 mmHg (83.0-108.0) Arterial Blood HCO3 28.2 mmol/L (21.0-28.0) Arterial Blood Oxygen Saturation 92.4 % (94.0-98.0) Arterial Blood Base Excess 5.4 mmol/L (-2.0-3.0) Arterial Blood Oxyhemoglobin 91.1 % (94.0-98.0) Arterial Blood Carboxyhemoglobin 1.0 % (0.5-1.5) Arterial Blood Methemoglobin 0.4 % (0.0-1.5) Benson Test Yes Blood Gas Total Hemoglobin 12.20 g/dL (13.5-17.5) Blood Gas Liter Flow 5.00 Blood Gas Modality Nasal cannula FiO2 % 40.0 Test 03/10/24 07:35 03/09/24 16:40 03/09/24 16:30 03/08/24 14:10 Eosinophils (%) (Auto) 0.0 % (0.0-7.0) Eosinophils # (Auto) 0 10 ^3/uL (0-0.8) Basophils # (Auto) 0.2 10 ^3/uL (0-0.2) Nucleated Red Blood Cells 0.0 % Hepatitis A IgM Antibody Negative Hepatitis B Surface Antigen Negative (Negative) Hepatitis B Core IgM Antibody Negative (Negative) Hepatitis C Antibody Negative (Negative) Thyroid Stimulating Hormone (TSH) 3.14 uIU/mL (0.55-4.78) Plasma/Serum Blood Alcohol < 3.0 mg/dL (<10) Lactic Acid Level 1.1 mmol/L (0.4-2.0) Blood Gas Set Respiration Rate 12.0 Blood Gas EPAP 6 Blood Gas IPAP 12 Test 03/08/24 13:34 03/08/24 12:50 03/08/24 09:40 03/08/24 09:36 Troponin I High Sensitivity 18 ng/L (</=54) POC Glucose 133 mg/dl (70-106) Influenza Type A Antigen Negative (Negative) Influenza Type B Antigen Negative (Negative) SARS-CoV-2 Antigen (Rapid) Negative (NEGATIVE) B-Type Natriuretic Peptide 1566.16 pg/mL (0-100) Other Laboratory Tests 03/12/24 06:52 Brief Hx & Hospital Course: 59-year-old w PMHX ESRD, CAD s/p PTCA, HTN, CHF, HFrEF, Chronic back pain, COPD, DDD, history of polysubstance abuse, presented with shortness of breath and chest Tightness. Despite trying home inhalers/ nebulizers patient did not find any relief that led him to come to the ED for further evaluation and treatment. patient continues to smoke, presenting with shortness of breath and chest tightness. COVID flu negative, requiring nasal cannula oxygen, he was not on home oxygen. CXR concerning for pneumonia. labs with leukocytosis and neutrophilia. Concerning for infection. echo done 03/10 showing EF 35% and few wall motion abnormalities. Requiring BiPAP and needing continuous BiPAP. Upgraded to IBIS stepdown. - - CAP pneumonia g-/g+/atypical possible,; COPD exacerbation likely; - levaquin 750 on 03/13/24 after HD, Thereafter levaquin 500mg after HD for next x4 sessions - total treatment 10 days - prednisone 40mg daily for x 5days. - resume HD treatment to help offload fluid - continue other home medications. quit smoking. Final Diagnosis/Problems List CAP pneumonia g-/g+/atypical possible,; COPD exacerbation likely; Discharge Disposition: Home Discharge Instruct/Medications Diet: Renal Activity: No Restrictions, As Tolerated Follow Up/Referral: pcp Medications: as below Discharge Statement: "Patient was advised to return to the ER or call 911 if any headaches, dizziness, shortness of breath, chest pain, abdominal pain, bleeding, fevers, or worsening of medical condition. Patient was counseled about treatment plan, medications, possible side effects, patientverbalized understanding. All questions were answered to the best of my ability. This discharge took greater then 30 minutes in planning, reviewing documentation, counseling the patient, and discussing with other team members." ASSESSMENT ASSESSMENT Assessment CAP pneumonia g-/g+/atypical possible,; COPD exacerbation likely; BILLY DAVISON MD Mar 12, 2024 19:04
[2024-03-12] MEDS ORDERED: RANOLAZINE ER 500 MG TAB PO SCH (22:00)
[2024-03-12] MEDS ORDERED: CARVEDILOL 3.125 MG TAB PO SCH (22:00)
[2024-03-13] MEDS ORDERED: PANTOPRAZOLE 40 MG TAB PO SCH (07:00)
[2024-03-13] MEDS ORDERED: ALLOPURINOL 100 MG TAB PO SCH (07:00)
[2024-03-13] MEDS ORDERED: ASPirin-EC 81 mg tab PO SCH (07:00)
[2024-03-13] MEDS ORDERED: cloNIDine HCL 0.1 MG TAB PO SCH (10:00)
[2024-03-13] MEDS ORDERED: FUROSEMIDE 40 MG TAB PO SCH (10:00)
[2024-03-13] MEDS ORDERED: METOPROLOL SUCCINATE XL 50 MG TAB PO SCH (10:00)
[2024-03-13] MEDS ORDERED: LOSARTAN POTASSIUM 50 MG TAB PO SCH (10:00)
[2024-03-13] MEDS ORDERED: CLOPIDOGREL BISULFATE 75 MG TAB PO SCH (10:00)
== END 2024-03-12 21:55 | disposition home or self-care (01) | DRG 871 ==
LOC: EDBD 08:47 → ER 08:47 → TELE 16:37 → TELE-EAST 03-11 02:42
PROVIDERS: ADMIT Internal Medicine; ATTEND Student in an Organized Health Care Education/Training Program
PROC: 5A09457 Assistance with Respiratory Ventilation, 24-96 Consecutive Hours, Continuous Positive Airway Pressure (ICD-10-PCS; principal; 2024-03-08)
PROC: 5A1D70Z Performance of Urinary Filtration, Intermittent, Less than 6 Hours Per Day (ICD-10-PCS; 2024-03-08)
PROC: 5A09357 Assistance with Respiratory Ventilation, Less than 24 Consecutive Hours, Continuous Positive Airway Pressure (ICD-10-PCS; 2024-03-10)
PROC: 5A1D70Z Performance of Urinary Filtration, Intermittent, Less than 6 Hours Per Day (ICD-10-PCS; 2024-03-10)
PROC: 5A09357 Assistance with Respiratory Ventilation, Less than 24 Consecutive Hours, Continuous Positive Airway Pressure (ICD-10-PCS; 2024-03-12)
DX: A41.9 Sepsis, unspecified organism (principal); I50.43 Acute on chronic combined systolic (congestive) and diastolic (congestive) heart failure; J96.01 Acute respiratory failure with hypoxia; N18.6 End stage renal disease; J15.69 Pneumonia due to other Gram-negative bacteria; J15.9 Unspecified bacterial pneumonia; E87.1 Hypo-osmolality and hyponatremia; E87.20 Acidosis, unspecified; I13.2 Hypertensive heart and chronic kidney disease with heart failure and with stage 5 chronic kidney disease, or end stage renal disease; J44.0 Chronic obstructive pulmonary disease with (acute) lower respiratory infection; N25.81 Secondary hyperparathyroidism of renal origin; J44.1 Chronic obstructive pulmonary disease with (acute) exacerbation; F20.0 Paranoid schizophrenia; Z20.822 Contact with and (suspected) exposure to COVID-19; D63.1 Anemia in chronic kidney disease; E11.22 Type 2 diabetes mellitus with diabetic chronic kidney disease; E83.39 Other disorders of phosphorus metabolism; E87.5 Hyperkalemia; F17.210 Nicotine dependence, cigarettes, uncomplicated; G47.33 Obstructive sleep apnea (adult) (pediatric); I25.119 Atherosclerotic heart disease of native coronary artery with unspecified angina pectoris; G89.29 Other chronic pain; F41.9 Anxiety disorder, unspecified; G40.909 Epilepsy, unspecified, not intractable, without status epilepticus; E78.5 Hyperlipidemia, unspecified; Z95.1 Presence of aortocoronary bypass graft; Z90.49 Acquired absence of other specified parts of digestive tract; Z95.5 Presence of coronary angioplasty implant and graft; Z80.42 Family history of malignant neoplasm of prostate; Z88.0 Allergy status to penicillin; Z68.33 Body mass index [BMI] 33.0-33.9, adult; Z83.3 Family history of diabetes mellitus; Z82.49 Family history of ischemic heart disease and other diseases of the circulatory system; I25.2 Old myocardial infarction; Z99.2 Dependence on renal dialysis
CPT/HCPCS: 36415; 36600; 71045; 80048; 80053; 80074; 80202; 80307; 80320; 81001; 82805; 82962; 83605; 83880; 84443; 84484; 85007; 85025; 85027; 87040; 87070; 87077; 87081; 87186; 87205; 87278; 87426; 87804; 90935; 93005; 93306; 94640; 94660; 96374; 97163; 99291; G0378; J1815; J2405; J7060

== ENCOUNTER 2024-04-15 21:45 | Inpatient (IN) | payer OTHER, MEDICARE ==
[~2024-04-15] VITALS: Ht 188 cm; Wt 95.5 kg
[~2024-04-15 21:45] MED LIST changes: +LEVO500T91 PO; +LEVO750T40 PO; +PRED20TA2 PO
[2024-04-15 22:59] LABS: Hematocrit 30.3 % (41.0-53.0); Hemoglobin 10.2 g/dL (13.5-17.5); Mean Corpuscular Hemoglobin 31.4 pg (28.0-32.0); Mean Corpuscular Hgb Conc. 33.7 g/dL (32.0-36.0); Mean Corpuscular Volume 93.1 fL (80.0-100.0); Platelet Count (auto) 238 10^3/uL (140-450); Red Blood Cells 3.25 10^6/uL (4.5-5.90); White Blood Cell 4.7 10^3/uL (4.4-10.8)
[2024-04-15 23:00] LABS: Basophils % (manual) 0 (0.0-2.0); Blast Cells 0; Metamyelocytes % 0; Myelocytes % 0; Promyelocytes % 0; Reactive Lymphocytes 0
[2024-04-15 23:16] LABS: Alanine Aminotransferase 13 U/L (7-40); Albumin 4.4 g/dL (3.2-4.8); Alkaline Phosphatase 109 U/L (46-116); Anion Gap 12 (5-15); Aspartate Aminotransferase 15 U/L (13-40); BUN/Creatinine Ratio 5.4 (10.0-20.0); Band Neutrophils % (manual) 1; Bilirubin, Total 0.3 mg/dL (0.2-1.0); Calcium 10.1 mg/dL (8.7-10.4); Carbon Dioxide 28 mmol/L (20-31); Eosinophils % (manual) 5 (0-7); Lymphocytes % (manual) 14 (10.0-50.0); Monocytes % (manual) 22 (0-12); Platelet Estimate Adequate; Potassium 4.9 mmol/L (3.5-5.1); Total Protein 7.1 g/dL (5.7-8.2)
--- NOTE | 2024-04-15 23:16 | DVH ---
CHEST RADIOGRAPH Indication: cp Technique: Single frontal view of the chest was obtained COMPARISON: XY CHEST XRAY 1 VIEW on DOS: 03/10/24, XY CHEST PORTABLE on DOS: 03/08/24, XY CHEST PORTABLE on DOS: 03/04/24, XY CHEST PORTABLE on DOS: 02/17/24, XY CHEST PORTABLE on DOS: 08/13/23 FINDINGS: Lines and Tubes: None Lungs: Mild opacities/infiltrates noted at both lung bases greater on the left side, markedly improve d compared to the prior chest x-ray from 03/10/2024. Pleura: No effusion. No pneumothorax. Cardiomediastinal contours: Unremarkable. IMPRESSION: Mild opacities/infiltrates at both lung bases greater on the left side, markedly improved compared t o the prior chest x-ray from 03/10/2024.
[2024-04-15 23:17] LABS: Blood Urea Nitrogen 39 mg/dL (9-23); Chloride 95 mmol/L (98-107); Glucose 126 mg/dL (74-106); Sodium 135 mmol/L (136-145)
--- NOTE | 2024-04-15 23:44 | ED.PDOC ---
History of Present Illness HPI Comments 59 y/o M, with a Hx of acute respiratory failure, appendectomy, cholecystectomy, CAD, CABG, CHF, COPD, DDD, ESRD w/HD T//TUE, HTN, PNA, PTCA, polysubstance abuse, sepsis, and seizures, is BIBA for c/o chest pain and shortness of breath, today. Per EMS report, patient endorses sudden and unprovoked onset of symptoms, this evening, while at rest. Patient comments on pain being a 7/10 in severity and it being a "stabbing" in quality and feeling rahat to "someone pulling [his] heart out." He reports on having similar pain in the past that has been ongoing, intermittently, for the past 2-3x months, with last chest pain episode taking place 2x weeks ago. Patient also informs on his health declining and being relegated to a sedentary lifestyle and needing walker assistance when ambulating, lately, and being discharged from [facility] 2x days ago. Patient reports pain in his bilateral upper legs causing him difficulty with ambulation. He also feels both of his legs are so weak he is unable to ambulate. EMS notes on patient vitals being stable and within normal limits on scene and en route. Patient denies having any nausea, vomiting, fever, chills, cough, or other associated symptoms or modifiers at this time. Chief Complaint: Chest Pain Time Seen by MD: 22:35 Primary Care Provider: UNKNOWN Reviewed Notes: Nurses Notes, Head Irrigator Notes, Medications, Allergies Allergies: Coded Allergies: Penicillins (Verified Allergy, Unknown, 09/19/23) Tetanus Toxoid (Verified Allergy, Unknown, 09/19/23) Home Meds Active Scripts Prednisone (Prednisone) 20 Mg Tab, 40 MG PO DAILY for 5 Days, #10 MG 0 Refills Prov:BILLY DAVISON MD 03/12/24 Levofloxacin Hemihydrate (LEVOFLOXACIN) 750 Mg Tab, 1 TAB PO DAILY for 1 Day, #1 TAB 0 Refills Prov:BILLY DAVISON MD 03/12/24 Levofloxacin Hemihydrate (LEVOFLOXACIN) 500 Mg Tab, 1 TAB PO EOD for 7 Days, #4 TAB Prov:BILLY DAVISON MD 03/12/24 Sodium Zirconium Cyclosilicate (Lokelma) 10 Gm Hernandez, 10 GM PO DAILY, #10 PACK Prov:ENDY CORTÉS MD 03/04/24 Clopidogrel Bisulfate (CLOPIDOGREL) 75 Mg Tab, 75 MG PO DAILY for 30 Days, #30 TAB Prov:LEÓN COLLINS MD 08/16/23 Reported Medications Irbesartan (Avapro) 300 Mg Tab, 1 TAB PO DAILY, #30 TAB 5 Refills 03/04/24 Furosemide (Lasix) 40 Mg Tab, 40 MG PO DAILY, TAB 03/04/24 Amlodipine Besylate (NORVASC TABLET) 5 Mg Tb, 2 TAB PO DAILY, #30 TAB 5 Refills 03/04/24 Isosorbide Mononitrate (Isosorbide Mononitrate Er) 30 Mg Tab, 30 MG PO DAILY for CAD, MG 09/19/23 Insulin Glargine (Basaglar Kwikpen) 100 Unit/Ml Inj, 100 UNIT SC for DIABETES, INJ 09/19/23 Calcium Acetate (Phosphate Bin (Calcium Acetate) 667 Mg Cap, 667 MG PO TIDWM for DIALYSIS, MG 09/19/23 Sodium Zirconium Cyclosilicate (Lokelma) 5 Gm Hernandez, 5 GM PO DAILY for HYPERKALEMIA, PACK 09/19/23 Atorvastatin Calcium (ATORVASTATIN CALCIUM) 40 Mg Tab, 1 TAB PO DAILY for HIGH CHOLESTEROL, #30 TAB 5 Refills 09/19/23 Jzoqcuneyr-Ejuxciflqjlbxq-Zqvo (Breztri Aerosphere 160-9-4.8 Mcg/Act) 1 Aer Aer, 1 AER IN BID for COPD, AER 09/19/23 Albuterol Sulfate (Ventolin) 2.5 Mg/3 Ml Nb, 2.5 MG NEB Q4HP PRN for SHORTNESS OF BREATH, INH 09/19/23 Ranolazine (Ranolazine ER) 500 Mg Tab, 500 MG PO BID for CAD, TAB 09/19/23 Metoprolol Succinate (Metoprolol Succinate Er) 200 Mg Tab, 1 TAB PO DAILY for HTN 08/16/23 Diazepam (VALIUM TABLET) 5 Mg Tb, 5 MG GT PRN PRN for ANXIETY, TAB 08/14/23 Hydralazine Hcl (Hydralazine Hcl) 100 Mg Tab, 1 TAB PO TID, #90 TAB 5 Refills 08/14/23 Gabapentin (Gabapentin) 100 Mg Cap, 1 CAP PO TID, #90 CAP 2 Refills 08/14/23 Pantoprazole Sodium Sesquihydr (Protonix) 40 Mg Tab, 40 MG PO QAM, #30 TAB 08/14/23 Aspirin (Aspir-81) 81 Mg Tab, 1 TAB PO QAM, #30 TAB 5 Refills 08/14/23 Allopurinol (ZYLOPRIM TABLET) 100 Mg Tb, 1 TAB PO QAM, #30 TAB 5 Refills 08/14/23 Information Source: Patient, Emergency Med Personnel Mode of Arrival: EMS Severity: Moderate Timing: Minutes Duration: Since onset Prehospital treatment: 12 Lead EKG, Tripe Finisher Review of Systems: REVIEW OF SYSTEMS: No fever, no chills, or fatigue HEENT: No sore throat, no earache, no congestion, no neck pain. Cardiac: Chest pain. No palpitations. Lungs: Shortness of breath, no cough. GI: No nausea, no vomiting, no diarrhea, no constipation, no abdominal pain : No dysuria, frequency, or urgency. No hematuria. Musculoskeletal: No joint pain , no joint swelling, no extremity edema. Skin: No rash, no itching. Neuro: No headache, no dizziness, no weakness Vital Signs Vital Signs Date Time Temp Pulse Resp B/P (MAP) Pulse Ox O2 Delivery O2 Flow Rate FiO2 04/16/24 00:54 97.3 70 20 135/62 (86) 100 97.3 04/16/24 00:54 Room Air Physical Exam General: Awake, alert and oriented. Appears lethargic. No acute distress. Skin: Skin in warm, dry and intact. Appropriate color for ethnicity. HEENT: The head is normocephalic and atraumatic. Conjunctivae are clear without exudates or hemorrhage. Sclera is non-icteric. EOM are intact. No signs of nystagmus. Eyelids are normal in appearance without swelling or lesions. Oral mucosa is pink and moist Neck: The neck is supple with normal range of motion. No JVD. Cardiac: Heart rate and rhythm are normal. No murmurs, gallops, or rubs are auscultated. Respiratory: No signs of respiratory distress. Lung sounds are clear in all lobes bilaterally without rales, ronchi, or wheezes. Abdominal: Abdomen is soft, non-tender without distention. Bowel sounds are present and normoactive in all four quadrants. Extremities: Upper and lower extremities are atraumatic in appearance without deformity or edema. Neurological: The patient is awake, alert and oriented to person, place, and time with normal speech. Speech is clear. There is no facial asymmetry. Psychiatric: Appropriate mood and affect. Good judgement and insight. No visual or auditory hallucinations. Past Medical History PAST MEDICAL HISTORY: CAD, CHF, COPD, ESRD (w/HD T//TUE), HTN, Seizures Past Medical History (Other): acute hypoxic respiratory failure, DDD, PNA, sepsis Surgical History: Appendectomy, CABG, Cholecystectomy, PTCA Family History Family History: Reviewed,noncontributory to illness, No family hx of Cancer, No family hx of DM, No family hx of Heart [place], No family hx of HTN, No family hx ofKidney [place], No family hx of Liver [place], No family hx of Lung [place], No family hx of Stroke Social History Smoker: Cigarettes, Greater Than 1 Pack/Day Alcohol: Occasionally Drugs: Denies Drug Use Lives In: Home Was a procedure done? Was a procedure done?: No EKG EKG : Pulse Rate (adult): 75 [place]: Normal Cardiac Rhythm: NSR Block: None Hypertrophy: None ST: Old, Ant (anteroseptal), Infarct Differential Dx Considerations may include: Not limited to [place], PE, ACS, URI, PNA, viral syndrome, musculoskeletal pain, costochondritis, pericarditis, gastritis, X-Ray, Labs, Meds, VS Vital Signs Date Time Temp Pulse Resp B/P (MAP) Pulse Ox O2 Delivery O2 Flow Rate FiO2 04/16/24 00:54 97.3 70 20 135/62 (86) 100 97.3 04/16/24 00:54 70 20 100 Room Air 04/16/24 00:32 71 04/15/24 23:48 97.6 72 14 76/36 (49) 95 97.6 04/15/24 23:44 75 04/15/24 23:33 73 04/15/24 22:12 98.0 74 16 155/69 (97) 100 04/15/24 22:01 75 Lab Test 04/16/24 03:30 04/15/24 22:49 Range/Units Urine Color Light-yellow Yellow Urine Clarity Clear Clear Urine pH 8.5 5.0-9.0 Urine Specific [place] 1.012 1.001-1.035 Urine Protein 3+ H Negative Urine Ketones Negative Negative Urine Blood Negative Negative /uL Urine Nitrite Negative Negative Urine Bilirubin Negative Negative Urine Urobilinogen Normal Negative mg/dL Urine Leukocyte Esterase Trace Negative /uL Urine RBC 2 0 - 3 /hpf Urine Microscopic WBC 10 H 0-3 /HPF Urine Squamous Epithelial Cells Few <5 /hpf Urine Bacteria None seen None Seen /hpf Urine Glucose 2+ H Normal mg/dL White Blood Count 4.7 4.4-10.8 10^3/uL Red Blood Count 3.25 L 4.5-5.90 10^6/uL Hemoglobin 10.2 L 13.5-17.5 g/dL Hematocrit 30.3 L 41.0-53.0 % Mean Corpuscular Volume 93.1 80.0-100.0 fL Mean Corpuscular Hemoglobin 31.4 28.0-32.0 pg Mean Corpuscular Hemoglobin Concent 33.7 32.0-36.0 g/dL Red Cell Distribution Width 17.0 H 11.8-14.3 % Platelet Count 238 140-450 10^3/uL Mean Platelet Volume 6.6 L 6.9-10.8 fL Neutrophils (%) (Auto) 37.0-80.0 % Lymphocytes (%) (Auto) 10.0-50.0 % Monocytes (%) (Auto) 0.0-12.0 % Basophils (%) (Auto) 0.0-2.0 % Neutrophils # (Auto) 1.6-8.6 10 ^3/uL Lymphocytes # (Auto) 0.4-5.4 10 ^3/uL Monocytes # (Auto) 0-1.3 10 ^3/uL Differential Total Cells Counted 100.0 100 Neutrophils % (Manual) 58 37.0-80.0 Band Neutrophils % (Manual) 1 Lymphocytes % (Manual) 14 10.0-50.0 Monocytes % (Manual) 22 H 0-12 Eosinophils % (Manual) 5 0-7 Basophils % (Manual) 0 0.0-2.0 Metamyelocytes % (manual) 0 Myelocytes % (Manual) 0 Promyelocytes % (Manual) 0 Blast Cells % (Manual) 0 Reactive Lymphocytes 0 Platelet Estimate Adequate Sodium Level 135 L 136-145 mmol/L Potassium Level 4.9 3.5-5.1 mmol/L Chloride Level 95 L 98-107 mmol/L Carbon Dioxide Level 28 20-31 mmol/L Anion Gap 12 5-15 Blood Urea Nitrogen 39 H 9-23 mg/dL Creatinine 7.20 H 0.700-1.30 mg/dL Glomerular Filtration Rate Calc 8 >90 mL/min BUN/Creatinine Ratio 5.4 L 10.0-20.0 Serum Glucose 126 H 74-106 mg/dL Calcium Level 10.1 8.7-10.4 mg/dL Total Bilirubin 0.3 0.2-1.0 mg/dL Aspartate Amino Transferase (AST) 15 13-40 U/L Alanine Aminotransferase (ALT) 13 7-40 U/L Alkaline Phosphatase 109 46-116 U/L Troponin I High Sensitivity 21 </=54 ng/L B-Type Natriuretic Peptide 1793.19 0-100 pg/mL Total Protein 7.1 5.7-8.2 g/dL Albumin 4.4 3.2-4.8 g/dL Current Medications Medications (Trade) Dose Ordered Sig/Gerard Route Start Time Stop Time Status Last Admin Aspirin 324 mg ONCE ONCE PO 04/15/24 22:45 04/15/24 22:46 DC 04/16/24 00:12 Sodium Chloride 500 ml @ 500 mls/hr Q1H ONCE IV 04/16/24 00:05 04/16/24 01:04 DC 04/16/24 00:05 [place] [id number] Ph: [phone] DIAGNOSTIC IMAGING Diagnostic Imaging Report : [id number] Signed PATIENT: CARLOS KING ACCT: [id number] UNIT: [id number] : 1965 LOC: ER ROOM / BED: / AGE / SEX: 59 / M ADM STATUS: REG ER SERVICE [id number] ORDERING PHYSICIAN: MAHSA NICHOLS MD PROCEDURE(s): CXR1 - CHEST XRAY 1 VIEW REASON: cp ORDER NUMBER(s): [id number], ACCESSION NUMBER(s): [id number] CHEST RADIOGRAPH Indication: cp Technique: Single frontal view of the chest was obtained COMPARISON: XY CHEST XRAY 1 VIEW on DOS: 03/10/24, XY CHEST PORTABLE on DOS: 03/08/24, XY CHEST PORTABLE on DOS: 03/04/24, XY CHEST PORTABLE on DOS: 02/17/24, XY CHEST PORTABLE on DOS: 08/13/23 FINDINGS: Lines and Tubes: None Lungs: Mild opacities/infiltrates noted at both lung bases greater on the left side, markedly improved compared to the prior chest x-ray from 03/10/2024. Pleura: No effusion. No pneumothorax. Cardiomediastinal contours: Unremarkable. IMPRESSION: Mild opacities/infiltrates at both lung bases greater on the left side, markedly improved compared to the prior chest x-ray from 03/10/2024. ATED BY: MARLON RUDOLPH MD DICTATED DATE/TIME: 04/15/242312 SIGNED BY: MARLON RUDOLPH MD SIGNED DATE/TIME: 04/15/242312 CC: Time of 1ST Reevaluation: 23:05 Reevaluation 1ST: Unchanged Patient Education/Counseling: Diagnosis, Treatment Family Education/Counseling: No Family Present Departure 1 Departure Time of Disposition: 02:48 Impression: Primary Impression: Chest pain Additional Impressions: Inability to walk Bilateral leg weakness Bilateral lower extremity pain Disposition: ADMITTED INPATIENT Condition: Stable Comments 59-year-old male who presented with chest pain. During the ED observation pain improved to 3/10 severity. Patient is reporting severe bilateral lower extremity pain and bilateral lower extremity weakness causing him inability to ambulate. Patient does not feel he is safe at home, has been bed-bound and unable to care for self. CT lumbar spine February 2024 showed no spinal stenosis. Patient admitted for MRI, further treatment, evaluation and monitoring. Critical Care Note Critical Care Time?: No Stability Stability form required: No Heart Score Heart Score: Heart Score Response (Comments) Value History Moderate Suspicious 1 EKG Normal 0 Age 45-64 1 Risk Factors >3 or Hx ASHD 2 Troponin Normal limit 0 Total 4 I personally scribed for MAHSA NICHOLS MD ([email or web address]) on 04/15/24 at 23:44. Electronically submitted by Kenrick Nino ([email or web address]). I personally scribed for MAHSA NICHOLS MD ([email or web address]) on 04/16/24 at 02:02. Electronically submitted by Kenrick Nino ([email or web address]). MAHSA NICHOLS MD Apr 15, 2024 23:44
[2024-04-16] MEDS: MORPHINE SULFATE INJ 2 MG/ml SYRG IV ONE ×2 (00:04→10:18)
[2024-04-16] MEDS: SODIUM CHLORIDE 0.9% 500 ML IV ONE (00:05)
[2024-04-16] MEDS: ASPirin 81 mg TAB PO ONE (00:12)
[2024-04-16 03:49] LABS: Urine Bacteria None Seen /hpf (None Seen)
[2024-04-16 04:18] LABS: Urine Blood Negative /uL (Negative); Urine Clarity Clear (Clear); Urine Color Light-Yellow (Yellow); Urine Protein, UAD 3+ (Negative); Urine Specific Gravity 1.012 (1.001-1.035); Urine Squamous Epithelial Cell FEW /hpf (<5); Urine Urobilinogen Normal (Negative); Urine WBC 10 /HPF (0-3); Urine pH 8.5 (5.0-9.0)
--- NOTE | 2024-04-16 07:06 | ECG ---
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
[2024-04-16 07:50] VITALS: PULSE 81; RESP 16; O2SAT 94
[2024-04-16] MEDS: ONDANSETRON HCL 4 MG/2 ML VIAL IV ONE (10:16)
--- NOTE | 2024-04-16 10:44 | DVH ---
EXAM: XR Pelvis, 1 or 2 Views CLINICAL INDICATION: Bilateral hip pain TECHNIQUE: Frontal view of the pelvis. COMPARISON: Comparison FINDINGS: BONES/JOINTS: Unremarkable. No acute fracture. No dislocation. SOFT TISSUES: Unremarkable. OTHER FINDINGS: . None. . . .. IMPRESSION: No acute fracture.
--- NOTE | 2024-04-16 10:44 | DVH ---
EXAM: XR Left Femur, 2 Views CLINICAL INDICATION: Bilateral lower extremity pain TECHNIQUE: Frontal and lateral views of the left femur. COMPARISON: None FINDINGS: BONES/JOINTS: Unremarkable. No acute fracture. No dislocation. SOFT TISSUES: Unremarkable. OTHER FINDINGS: . None. . . .. IMPRESSION: No acute findings in the left femur.
--- NOTE | 2024-04-16 10:44 | DVH ---
EXAM: XR Right Femur, 2 Views CLINICAL INDICATION: Bilateral lower extremity pain TECHNIQUE: Frontal and lateral views of the right femur. COMPARISON: Comparison FINDINGS: BONES/JOINTS: Unremarkable. No acute fracture. No dislocation. SOFT TISSUES: Unremarkable. OTHER FINDINGS: . None. . . .. IMPRESSION: No acute findings in the right femur.
--- NOTE | 2024-04-16 11:43 | ECG ---
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
[2024-04-16] MEDS: HYDROmorphone HCL 2 MG/ML VL/or syr IV ONE (13:33)
--- NOTE | 2024-04-16 13:59 | ECG ---
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
[2024-04-16] MEDS ORDERED: IPRATROPIUM BROM 0.5 MG/2.5ML INH SOL NEB PRN (14:00)
[2024-04-16] MEDS ORDERED: ALBUTEROL SULF 2.5 MG/0.5ML(0.5%) NEB SOLN NEB PRN (14:00)
[2024-04-16] MEDS ORDERED: DEXTROSE (50%) 50ML SYRG IV PRN (14:00)
[2024-04-16] MEDS ORDERED: ACETAMINOPHEN 325 MG TAB PO PRN (14:00)
[2024-04-16] MEDS: SODIUM CHLOR 0.9% PF (SALINE LOCK) 10ML VIAL/SYR IV SCH (14:38)
[2024-04-16] MEDS: AZITHROMYCIN 500MG/ 250ML 250 ML IV ONE (14:41)
[2024-04-16 16:00] VITALS: BP 118/84; PULSE 84; RESP 16; TEMP 97.9; O2SAT 98
--- NOTE | 2024-04-16 16:21 | DVHHP2 ---
History of Present Illness Reason for Visit: Acute chest pain History of Present Illness The patient is a 59-year-old male with multiple past medical history including ESRD on dialysis, seizures, hypertension, and COPD who presented to [place] [facility] ED with complaint of acute chest pain. Patient reports symptoms progressively get worse with shortness of breaths, bilateral leg pain, inability to work, rating pain 7/10 numeric scale, getting worse that prompted this visit. He reports on having similar pain in the past that has been ongoing, intermittently, for the past 2-3x months, with last chest pain episode taking place 2x weeks ago. Patient also informs on his health declining and being rele gated to a sedentary lifestyle and needing walker assistance when ambulating, lately, and being discharged from [facility] 2x days ago. Patient was seen and evaluated in the ED, laboratory data shows WBC 4.7, hemoglobin 10.2, hematocrit 30.3, platelets 238, sodium 135, potassium 4.9, BUN 39, creatinine 7.2, GFR 8, glucose 126, calcium 10.1, troponin 21, BNP 1793.19. Chest x-ray revealing opacities/infiltrates at both lung bases greater on the left side, markedly improved compared to the prior chest x-ray from March 10, 2024. Please see medication orders section in the computer. On my assessment, patient denies chest pain at this moment, no headache, no dizziness, no diaphoresis, no shortness of breath, no nausea, no vomiting, no fever, no chills. Patient was admitted further evaluation and medical management. Past Medical History CAD, CHF, COPD, ESRD (w/HD T//TUE), HTN, Seizures Acute hypoxic respiratory failure, DDD, PNA, Sepsis Past Surgical History Appendectomy, CABG, Cholecystectomy, PTCA Family History Reviewed, noncontributory to the management of this case. Past Social History Patient lives at home, drinks alcohol occasionally, smokes cigarettes greater than 1 pack per day, denies illicit drugs abuse. Review of Systems Constitutional: Yes: Weakness; No: Fever, Chills, Sweats, Malaise, Other Eyes: No: Pain, Vision change, Conjunctivae inflammation, Eyelid inflammation, Other, Redness ENT: No: Ear pain, Ear discharge, Nose pain, Nose discharge, Nose congestion, Mouth pain, Mouth swelling, Throat pain, Throat swelling, Other Respiratory: No: Cough, Dry, Shortness of breath, SOB with excertion, Wheezing, Hemoptysis, Pleuritic Pain, Sputum, Wheezing, Other Cardiovascular: No: Chest Pain, Palpitations, Orthopnea, Paroxysmal Noc. Dyspnea, Edema, Lt Headedness, Other Gastrointestinal: No: Nausea, Vomiting, Abdominal Pain, Diarrhea, Constipation, Melena, Hematochezia, Other Genitourinary: No Dysuria, No Frequency, No Incontinence, No Hematuria, No Retention, No Other Musculoskeletal: other (Bilateral leg weakness), leg pain; No: neck pain, shoulder pain, arm pain, back pain, hand pain, foot pain Skin: No: Rash, Lesions, Jaundice, Bruising, Other Neurological: No: Weakness, Numbness, Incoordination, Change in speech, Confusion, Seizures, Other Allergies: Coded Allergies: Penicillins (Verified Allergy, Unknown, 09/19/23) Tetanus Toxoid (Verified Allergy, Unknown, 09/19/23) Medications Current Medications Medications Dose Ordered Sig/Gerard Route Start Time Stop Time Status Last Admin Dose Admin Aspirin 81 mg DAILY PO 04/17/24 10:00 Clopidogrel Bisulfate 75 mg DAILY PO 04/17/24 10:00 Furosemide 40 mg DAILY IV 04/17/24 10:00 Hydralazine HCl 10 mg Q6HP PRN IV 04/16/24 14:00 Carvedilol 12.5 mg Q12HR PO 04/16/24 22:00 Amlodipine Besylate 5 mg DAILY PO 04/17/24 10:00 Atorvastatin Calcium 20 mg HS PO 04/16/24 22:00 Azithromycin 250 ml @ 125 mls/hr DAILY IV 04/17/24 10:00 Albuterol 2.5 mg Q4HPRN PRN NEB 04/16/24 14:00 Ipratropium [place] 0.5 mg Q4HPRN PRN NEB 04/16/24 14:00 Diagnostic Test (Pha) 1 strip ACHS 04/16/24 17:00 Insulin Human Regular ACHS SC 04/16/24 17:00 Dextrose 50 ml UD PRN IV 04/16/24 14:00 Sodium Chloride 10 ml Q8HR IV 04/16/24 14:00 04/16/24 14:38 10 ML Acetaminophen/ Hydrocodone Bitart 1 tab Q4HP PRN PO 04/16/24 14:00 Ondansetron HCl 4 mg Q4HP PRN IV 04/16/24 14:00 Docusate Sodium 100 mg BIDPRN PRN PO 04/16/24 14:00 Acetaminophen 650 mg Q6HP PRN PO 04/16/24 14:00 Sevelamer HCl 800 mg TIDWM PO 04/16/24 18:00 UNV Multivit/Ca Carb/ B Cmplx/FA/Prenat 1 tab DAILY PO 04/17/24 10:00 UNV Exam Vital Signs Vital Signs Date Time Temp Pulse Resp B/P (MAP) Pulse Ox O2 Delivery O2 Flow Rate FiO2 04/16/24 16:00 97.9 84 16 118/84 98 0.0 21 97.9 04/16/24 07:50 Room Air* General Appearance: Alert, Oriented X3, Cooperative, No acute distress HEENT: Atraumatic, PERRLA, EOMI, Mucous membr. moist/pink Respiratory: Normal air movement, Other (Diminished breath sounds) Cardiovascular: Regular rate, Normal S1, Normal S2, No murmurs Abdominal: Normal bowel sounds, Soft, No tenderness, No hepatospenomegaly, No masses Extremities: No clubbing, No cyanosis, No edema, Normal pulses, Other (Lower extremity tenderness) Skin: No rashes, No breakdown, No significant lesion Neuro: Normal speech, Normal tone, Sensation intact, Cranial nerves 3-12 NL, Reflexes 2+, Other (Generalized weakness) Psych/Mental Status: Mental status NL, Mood NL Labs/Xrays Labs Test 04/16/24 03:30 04/15/24 22:49 Range/Units Urine Color Light-yellow Yellow Urine Clarity Clear Clear Urine pH 8.5 5.0-9.0 Urine Specific [place] 1.012 1.001-1.035 Urine Protein 3+ H Negative Urine Ketones Negative Negative Urine Blood Negative Negative /uL Urine Nitrite Negative Negative Urine Bilirubin Negative Negative Urine Urobilinogen Normal Negative mg/dL Urine Leukocyte Esterase Trace Negative /uL Urine RBC 2 0 - 3 /hpf Urine Microscopic WBC 10 H 0-3 /HPF Urine Squamous Epithelial Cells Few <5 /hpf Urine Bacteria None seen None Seen /hpf Urine Glucose 2+ H Normal mg/dL White Blood Count 4.7 4.4-10.8 10^3/uL Red Blood Count 3.25 L 4.5-5.90 10^6/uL Hemoglobin 10.2 L 13.5-17.5 g/dL Hematocrit 30.3 L 41.0-53.0 % Mean Corpuscular Volume 93.1 80.0-100.0 fL Mean Corpuscular Hemoglobin 31.4 28.0-32.0 pg Mean Corpuscular Hemoglobin Concent 33.7 32.0-36.0 g/dL Red Cell Distribution Width 17.0 H 11.8-14.3 % Platelet Count 238 140-450 10^3/uL Mean Platelet Volume 6.6 L 6.9-10.8 fL Neutrophils (%) (Auto) 37.0-80.0 % Lymphocytes (%) (Auto) 10.0-50.0 % Monocytes (%) (Auto) 0.0-12.0 % Basophils (%) (Auto) 0.0-2.0 % Neutrophils # (Auto) 1.6-8.6 10 ^3/uL Lymphocytes # (Auto) 0.4-5.4 10 ^3/uL Monocytes # (Auto) 0-1.3 10 ^3/uL Differential Total Cells Counted 100.0 100 Neutrophils % (Manual) 58 37.0-80.0 Band Neutrophils % (Manual) 1 Lymphocytes % (Manual) 14 10.0-50.0 Monocytes % (Manual) 22 H 0-12 Eosinophils % (Manual) 5 0-7 Basophils % (Manual) 0 0.0-2.0 Metamyelocytes % (manual) 0 Myelocytes % (Manual) 0 Promyelocytes % (Manual) 0 Blast Cells % (Manual) 0 Reactive Lymphocytes 0 Platelet Estimate Adequate Sodium Level 135 L 136-145 mmol/L Potassium Level 4.9 3.5-5.1 mmol/L Chloride Level 95 L 98-107 mmol/L Carbon Dioxide Level 28 20-31 mmol/L Anion Gap 12 5-15 Blood Urea Nitrogen 39 H 9-23 mg/dL Creatinine 7.20 H 0.700-1.30 mg/dL Glomerular Filtration Rate Calc 8 >90 mL/min BUN/Creatinine Ratio 5.4 L 10.0-20.0 Serum Glucose 126 H 74-106 mg/dL Calcium Level 10.1 8.7-10.4 mg/dL Total Bilirubin 0.3 0.2-1.0 mg/dL Aspartate Amino Transferase (AST) 15 13-40 U/L Alanine Aminotransferase (ALT) 13 7-40 U/L Alkaline Phosphatase 109 46-116 U/L Troponin I High Sensitivity 21 </=54 ng/L B-Type Natriuretic Peptide 1793.19 0-100 pg/mL Total Protein 7.1 5.7-8.2 g/dL Albumin 4.4 3.2-4.8 g/dL PATIENT: CARLOS KING ACCT: [id number] UNIT: [id number] : 1965 LOC: ER ROOM / BED: / AGE / SEX: 59 / M ADM STATUS: REG ER SERVICE 38 ORDERING PHYSICIAN: MAHSA NICHOLS MD PROCEDURE(s): CXR1 - CHEST XRAY 1 VIEW REASON: cp ORDER NUMBER(s): [id number], ACCESSION NUMBER(s): [id number] CHEST RADIOGRAPH Indication: cp Technique: Single frontal view of the chest was obtained COMPARISON: XY CHEST XRAY 1 VIEW on DOS: 03/10/24, XY CHEST PORTABLE on DOS: 03/08/24, XY CHEST PORTABLE on DOS: 03/04/24, XY CHEST PORTABLE on DOS: 02/17/24, XY CHEST PORTABLE on DOS: 08/13/23 FINDINGS: Lines and Tubes: None Lungs: Mild opacities/infiltrates noted at both lung bases greater on the left side, markedly improved compared to the prior chest x-ray from 03/10/2024. Pleura: No effusion. No pneumothorax. Cardiomediastinal contours: Unremarkable. IMPRESSION: Mild opacities/infiltrates at both lung bases greater on the left side, markedly improved compared to the prior chest x-ray from 03/10/2024. ORDERING PHYSICIAN: MAHSA NICHOLS MD PROCEDURE(s): LFEM - L FEMUR XRAY REASON: Bilateral lower extremity pain ORDER NUMBER(s): [id number], ACCESSION NUMBER(s): [id number] EXAM: XR Left Femur, 2 Views CLINICAL INDICATION: Bilateral lower extremity pain TECHNIQUE: Frontal and lateral views of the left femur. COMPARISON: None FINDINGS: BONES/JOINTS: Unremarkable. No acute fracture. No dislocation. SOFT TISSUES: Unremarkable. OTHER FINDINGS: None. IMPRESSION: No acute findings in the left femur. ORDERING PHYSICIAN: MAHSA NICHOLS MD PROCEDURE(s): RFEM - R FEMUR XRAY REASON: Bilateral lower extremity pain ORDER NUMBER(s): [id number], ACCESSION NUMBER(s): [id number] EXAM: XR Right Femur, 2 Views CLINICAL INDICATION: Bilateral lower extremity pain TECHNIQUE: Frontal and lateral views of the right femur. COMPARISON: Comparison FINDINGS: BONES/JOINTS: Unremarkable. No acute fracture. No dislocation. SOFT TISSUES: Unremarkable. OTHER FINDINGS: None. IMPRESSION: No acute findings in the right femur. ORDERING PHYSICIAN: MAHSA NICHOLS MD PROCEDURE(s): PELVS - PELVIS AP REASON: Bilateral hip pain ORDER NUMBER(s): [id number], ACCESSION NUMBER(s): [id number] EXAM: XR Pelvis, 1 or 2 Views CLINICAL INDICATION: Bilateral hip pain TECHNIQUE: Frontal view of the pelvis. COMPARISON: Comparison FINDINGS: BONES/JOINTS: Unremarkable. No acute fracture. No dislocation. SOFT TISSUES: Unremarkable. OTHER FINDINGS: None. IMPRESSION: No acute fracture. Assessment/Plan Assessment/Plan Acute chest pain Inability to walk Bilateral leg weakness Pneumonia, unspecified organism Bilateral lower extremity pain End-stage renal disease on hemodialysis Acute on chronic systolic heart failure Plan 1. Admit to telemetry unit 2. Breathing treatment 3. Pain control management 4. Management of fluids and electrolytes 5. Consultation for Nephrology/cardiology 6. Diagnostic tests chest x-ray 7. DVT prophylaxis-on aspirin 8. Repeat labs CBC, CMP in a.m. 9. Continue with current medical management 10. Treatment plan discussed with patient and RN. Patient verbalized understanding. Plan discussed with: Patient, Other (RN) My Orders Orders - EMILE MCDONALD DNP Procedure Category Date Status Time Aspirin Tablet PHA 04/17/24 In Process 10:00 Clopidogrel Bisulfate PHA 04/17/24 In Process (Plavix) 10:00 Furosemide Injection PHA 04/17/24 In Process (Lasix Injection) 10:00 Hydralazine Injection PHA 04/16/24 In Process (Apresoline Inject 14:00 Carvedilol Tablet PHA 04/16/24 In Process (Coreg Tablet) 22:00 Amlodipine Tablet PHA 04/17/24 In Process (Norvasc Tablet) 10:00 Atorvastatin (Lipitor) PHA 04/16/24 In Process 22:00 Azithromycin 500mg/ PHA 04/17/24 In Process 250ml (Zithromax 50 10:00 Albuterol Medneb PHA 04/16/24 In Process (Ventolin Medneb) 14:00 Ipratropium Medneb PHA 04/16/24 In Process (Atrovent Medneb) 14:00 Consistent DIET 04/16/24 Transmitted Carb(Ccho)Diabetes Dinner Glucose Blood PHA 04/16/24 In Process (Accu-Chek Comfort 17:00 Insulin R (Human) PHA 04/16/24 In Process (Insulin R) 17:00 Dextrose 50% Syringe PHA 04/16/24 In Process 14:00 Allergies SEAN 04/16/24 In Process 13:54 Code Status CODE 04/16/24 Transmitted 13:54 Sodium Chloride Lock PHA 04/16/24 In Process (Saline Lock Ns) 14:00 Oxygen Per Hour RT 04/16/24 Transmitted 13:54 Hydrocodone-Acet PHA 04/16/24 In Process 5/325mg Tab (Ryan 14:00 Ondansetron Hcl PHA 04/16/24 In Process (Zofran) 14:00 Docusate Sodium PHA 04/16/24 In Process Capsule (Colace 14:00 Complete Blood Count LAB 04/17/24 Verified 04:00 Comprehensive LAB 04/17/24 Verified Metabolic Panel 04:00 Condition: Serious SEAN 04/16/24 In Process 13:54 Acetaminophen Tablet PHA 04/16/24 In Process (Tylenol Tablet) 14:00 Bedrest With Bathroom SEAN 04/16/24 In Process Privileg 13:54 Sequential SEAN 04/16/24 In Process Compression Device * Cardiology Consult CONS 04/16/24 Transmitted 13:54 Basic Metabolic Panel LAB 04/19/24 Verified 05:00 Sevelamer (Renagel) PHA 04/16/24 Logged 18:00 B-Complex W/ C & PHA 04/17/24 Logged Folic Tablet 10:00 *Dr. Rochelle Tsai CONS 04/16/24 Verified Maty 16:18 Admit ADMIT 04/16/24 Verified 16:18 Nitroglycerin PHA 04/16/24 Verified Sublingual (Ntrostat 16:30 Morphine Sulfate PHA 04/16/24 Verified Injection 16:30 Notify Of Changes SEAN 04/16/24 Verified From Base 16:18 Sheep Boner For SEAN 04/16/24 Verified 24 Hours 16:18 Emergency Dysrhythmia SEAN 04/16/24 Verified Protocol 16:18 Rhythm Strips Once [facility] 04/16/24 Verified Every Shift 16:18 Oxygen By Nasal RT 04/16/24 Verified Cannula 16:18 Problem List: (1) Acute chest pain (2) Bilateral leg weakness (3) Pneumonia, unspecified organism (4) Inability to walk (5) Bilateral lower extremity pain (6) End stage renal disease on dialysis (7) Acute on chronic systolic heart failure Date of Service: Apr 16, 2024 Billing Provider: EMILE MCDONALD DNP Common Visit Codes: [id number] INP/OBS CARE (HIGH) EMILE MCDONALD DNP Apr 16, 2024 16:21
[2024-04-16] MEDS ORDERED: NITROGLYCERIN 0.4 MG SL TAB SL PRN (16:30)
--- NOTE | 2024-04-16 16:36 | DVHINCON2 ---
Date Seen: Apr 16, 2024 Referring Physician RAINER Loya Reason for Consultation Acute systolic heart failure History of Present Illness This is a 59-year-old male patient who presents to emergency room with chief complaint of chest pain and shortness of breath. The patient reports he was jus t discharged from [facility] two days ago for a abscess. He reports that on the day of emergency room arrival, he started experiencing chest pain and shortness of breath. He describes the chest pain as unprovoked, squeezing in nature, midsternal and nonradiating. Associated symptoms include shortness of breath. Cardiology has now been consulted further evaluation. Initial twelve lead electrocardiogram reveals normal sinus rhythm with Q-waves in anteroseptal leads. Initial troponin level of 21ng/L. Significant past medical history includes coronary artery disease status post PTCA x 6 KATHI (on Aspirin and Plavix therapy), history of myocardial infarction, hypertension, hyperlipidemia, type 2 diabetes mellitus, peripheral neuropathy, ESRD on hemodialysis, COPD, tobacco use, and obesity. Patient reports that he does not follow up with a home office claim specialist in the outpatient setting. The patient recently underwent a coronary angiogram left heart catheterization in which no catheter based intervention was warranted. Past Medical History Past medical history reviewed. No other significant than mentioned above. Past Surgical History Appendectomy Cholecystectomy Family History: Diabetes mellitus G8 MOTHER, Onset:Unknown G8 FATHER, Onset:Unknown Hypertension G8 FATHER, Onset:Unknown Family History Family history reviewed. Social History Patient has a 20 pack-year history, quit smoking approximately five years ago Patient reports previous polysubstance abuse with last time using illicit drugs three years ago Patient denies any alcohol use Allergies: Coded Allergies: Penicillins (Verified Allergy, Unknown, 09/19/23) Tetanus Toxoid (Verified Allergy, Unknown, 09/19/23) Home Meds Active Scripts Prednisone (Prednisone) 20 Mg Tab, 40 MG PO DAILY for 5 Days, #10 MG 0 Refills Prov:BILLY DAVISON MD 03/12/24 Levofloxacin Hemihydrate (LEVOFLOXACIN) 750 Mg Tab, 1 TAB PO DAILY for 1 Day, #1 TAB 0 Refills Prov:BILLY DAVISON MD 03/12/24 Levofloxacin Hemihydrate (LEVOFLOXACIN) 500 Mg Tab, 1 TAB PO EOD for 7 Days, #4 TAB Prov:BILLY DAVISON MD 03/12/24 Sodium Zirconium Cyclosilicate (Lokelma) 10 Gm Hernandez, 10 GM PO DAILY, #10 PACK Prov:ENDY CORTÉS MD 03/04/24 Clopidogrel Bisulfate (CLOPIDOGREL) 75 Mg Tab, 75 MG PO DAILY for 30 Days, #30 TAB Prov:LEÓN COLLINS MD 08/16/23 Reported Medications Irbesartan (Avapro) 300 Mg Tab, 1 TAB PO DAILY, #30 TAB 5 Refills 03/04/24 Furosemide (Lasix) 40 Mg Tab, 40 MG PO DAILY, TAB 03/04/24 Amlodipine Besylate (NORVASC TABLET) 5 Mg Tb, 2 TAB PO DAILY, #30 TAB 5 Refills 03/04/24 Isosorbide Mononitrate (Isosorbide Mononitrate Er) 30 Mg Tab, 30 MG PO DAILY for CAD, MG 09/19/23 Insulin Glargine (Basaglar Kwikpen) 100 Unit/Ml Inj, 100 UNIT SC for DIABETES, INJ 09/19/23 Calcium Acetate (Phosphate Bin (Calcium Acetate) 667 Mg Cap, 667 MG PO TIDWM for DIALYSIS, MG 09/19/23 Sodium Zirconium Cyclosilicate (Lokelma) 5 Gm Hernandez, 5 GM PO DAILY for HYPERKALEMIA, PACK 09/19/23 Atorvastatin Calcium (ATORVASTATIN CALCIUM) 40 Mg Tab, 1 TAB PO DAILY for HIGH CHOLESTEROL, #30 TAB 5 Refills 09/19/23 Ssspwxugcd-Kwzajborxzqdux-Elqi (Breztri Aerosphere 160-9-4.8 Mcg/Act) 1 Aer Aer, 1 AER IN BID for COPD, AER 09/19/23 Albuterol Sulfate (Ventolin) 2.5 Mg/3 Ml Nb, 2.5 MG NEB Q4HP PRN for SHORTNESS OF BREATH, INH 09/19/23 Ranolazine (Ranolazine ER) 500 Mg Tab, 500 MG PO BID for CAD, TAB 09/19/23 Metoprolol Succinate (Metoprolol Succinate Er) 200 Mg Tab, 1 TAB PO DAILY for HTN 08/16/23 Diazepam (VALIUM TABLET) 5 Mg Tb, 5 MG GT PRN PRN for ANXIETY, TAB 08/14/23 Hydralazine Hcl (Hydralazine Hcl) 100 Mg Tab, 1 TAB PO TID, #90 TAB 5 Refills 08/14/23 Gabapentin (Gabapentin) 100 Mg Cap, 1 CAP PO TID, #90 CAP 2 Refills 08/14/23 Pantoprazole Sodium Sesquihydr (Protonix) 40 Mg Tab, 40 MG PO QAM, #30 TAB 08/14/23 Aspirin (Aspir-81) 81 Mg Tab, 1 TAB PO QAM, #30 TAB 5 Refills 08/14/23 Allopurinol (ZYLOPRIM TABLET) 100 Mg Tb, 1 TAB PO QAM, #30 TAB 5 Refills 08/14/23 Home Meds Home medications reviewed. Current Medications Current Medications Medications (Trade) Dose Ordered Sig/Gerard Route PRN Reason Start Time Stop Time Status Last Admin Aspirin 81 mg DAILY PO 04/17/24 10:00 Clopidogrel Bisulfate (Plavix) 75 mg DAILY PO 04/17/24 10:00 Furosemide (Lasix Injection) 40 mg DAILY IV 04/17/24 10:00 Hydralazine HCl (Apresoline Injection) 10 mg Q6HP PRN IV SBP>150 04/16/24 14:00 Carvedilol (Coreg Tablet) 12.5 mg Q12HR PO 04/16/24 22:00 Amlodipine Besylate (Norvasc Tablet) 5 mg DAILY PO 04/17/24 10:00 Atorvastatin Calcium (Lipitor) 20 mg HS PO 04/16/24 22:00 Azithromycin 250 ml @ 125 mls/hr DAILY IV 04/17/24 10:00 Albuterol (Ventolin Medneb) 2.5 mg Q4HPRN PRN NEB SHORTNESS OF BREATH 04/16/24 14:00 Ipratropium [place] (Atrovent Medneb) 0.5 mg Q4HPRN PRN NEB SHORTNESS OF BREATH 04/16/24 14:00 Diagnostic Test (Pha) (Accu-Chek Comfort Curve T) 1 strip ACHS 04/16/24 17:00 Insulin Human Regular (InsuLIN R) ACHS SC 04/16/24 17:00 Dextrose 50 ml UD PRN IV Blood Sugar LESS THAN 60 04/16/24 14:00 Sodium Chloride (Saline Lock Ns) 10 ml Q8HR IV 04/16/24 14:00 04/16/24 14:38 Acetaminophen/ Hydrocodone Bitart ([place] 5/325MG Tab) 1 tab Q4HP PRN PO MODERATE PAIN (4-6 PAIN SCALE) 04/16/24 14:00 Ondansetron HCl (Zofran) 4 mg Q4HP PRN IV NAUSEA / VOMITING 04/16/24 14:00 Docusate Sodium (Colace Capsule) 100 mg BIDPRN PRN PO FOR CONSTIPATION 04/16/24 14:00 Acetaminophen (Tylenol Tablet) 650 mg Q6HP PRN PO PAIN SCALE 1-3 OR TEMP>100.4 04/16/24 14:00 Sevelamer HCl (Renagel) 800 mg TIDWM PO 04/16/24 18:00 UNV Multivit/Ca Carb/ B Cmplx/FA/Prenat (Nephro-[place] Tablet) 1 tab DAILY PO 04/17/24 10:00 UNV Nitroglycerin (Ntrostat Sublingual) 0.4 mg Q5MINP PRN SL FOR CHEST PAIN 04/16/24 16:30 UNV Morphine Sulfate 2 mg Q30M PRN IV FOR CHEST PAIN 04/16/24 16:30 UNV Review of Systems Constitutional: No symptom reported Ears, Nose, & Throat: No symptom reported Eyes: No symptom reported Neurological: No symptoms reported Pulmonary/Respiratory: No symptoms reported Cardiovascular: Chest pain Gastrointestinal: No symptom reported Genitourinary: No symptom reported Musculoskeletal: No symptom reported Skin: No symptom reported Psychiatric: No symptom reported Endocrine: No symptom reported Hematologic/Lymphatic: No symptom reported Vital Signs Vital Signs Date Time Temp Pulse Resp B/P (MAP) Pulse Ox O2 Delivery O2 Flow Rate FiO2 04/16/24 16:00 97.9 84 16 118/84 98 0.0 21 97.9 04/16/24 07:50 Room Air* Physical Exam General Appearance: Cooperative. Well-developed. Well-nourished. No acute distress. Pulmonary/Respiratory: Clear, bilateral breaths sounds. Cardiovascular/Chest: Regular rate and rhythm. Peripheral Pulses: 2+ Radial (R). 2+ Radial (L). Abdominal Exam: Normal bowel sounds. Ankle Exam: Trace ankle edema Lower extremities: Negative lower extremity edema Neuro/Mental Status: A/OX4, coherent. Thoughts/Psych: Normal thought pattern. Appropriate mood and affect. Good judgment and insight. Appearance: No acute distress. Skin Exam: Normal inspection. Normal color. Warm and dry. Labs/Diagnostic Data Labs Test 04/16/24 03:30 04/15/24 22:49 Range/Units Urine Color Light-yellow Yellow Urine Clarity Clear Clear Urine pH 8.5 5.0-9.0 Urine Specific [place] 1.012 1.001-1.035 Urine Protein 3+ H Negative Urine Ketones Negative Negative Urine Blood Negative Negative /uL Urine Nitrite Negative Negative Urine Bilirubin Negative Negative Urine Urobilinogen Normal Negative mg/dL Urine Leukocyte Esterase Trace Negative /uL Urine RBC 2 0 - 3 /hpf Urine Microscopic WBC 10 H 0-3 /HPF Urine Squamous Epithelial Cells Few <5 /hpf Urine Bacteria None seen None Seen /hpf Urine Glucose 2+ H Normal mg/dL White Blood Count 4.7 4.4-10.8 10^3/uL Red Blood Count 3.25 L 4.5-5.90 10^6/uL Hemoglobin 10.2 L 13.5-17.5 g/dL Hematocrit 30.3 L 41.0-53.0 % Mean Corpuscular Volume 93.1 80.0-100.0 fL Mean Corpuscular Hemoglobin 31.4 28.0-32.0 pg Mean Corpuscular Hemoglobin Concent 33.7 32.0-36.0 g/dL Red Cell Distribution Width 17.0 H 11.8-14.3 % Platelet Count 238 140-450 10^3/uL Mean Platelet Volume 6.6 L 6.9-10.8 fL Neutrophils (%) (Auto) 37.0-80.0 % Lymphocytes (%) (Auto) 10.0-50.0 % Monocytes (%) (Auto) 0.0-12.0 % Basophils (%) (Auto) 0.0-2.0 % Neutrophils # (Auto) 1.6-8.6 10 ^3/uL Lymphocytes # (Auto) 0.4-5.4 10 ^3/uL Monocytes # (Auto) 0-1.3 10 ^3/uL Differential Total Cells Counted 100.0 100 Neutrophils % (Manual) 58 37.0-80.0 Band Neutrophils % (Manual) 1 Lymphocytes % (Manual) 14 10.0-50.0 Monocytes % (Manual) 22 H 0-12 Eosinophils % (Manual) 5 0-7 Basophils % (Manual) 0 0.0-2.0 Metamyelocytes % (manual) 0 Myelocytes % (Manual) 0 Promyelocytes % (Manual) 0 Blast Cells % (Manual) 0 Reactive Lymphocytes 0 Platelet Estimate Adequate Sodium Level 135 L 136-145 mmol/L Potassium Level 4.9 3.5-5.1 mmol/L Chloride Level 95 L 98-107 mmol/L Carbon Dioxide Level 28 20-31 mmol/L Anion Gap 12 5-15 Blood Urea Nitrogen 39 H 9-23 mg/dL Creatinine 7.20 H 0.700-1.30 mg/dL Glomerular Filtration Rate Calc 8 >90 mL/min BUN/Creatinine Ratio 5.4 L 10.0-20.0 Serum Glucose 126 H 74-106 mg/dL Calcium Level 10.1 8.7-10.4 mg/dL Total Bilirubin 0.3 0.2-1.0 mg/dL Aspartate Amino Transferase (AST) 15 13-40 U/L Alanine Aminotransferase (ALT) 13 7-40 U/L Alkaline Phosphatase 109 46-116 U/L Troponin I High Sensitivity 21 </=54 ng/L B-Type Natriuretic Peptide 1793.19 0-100 pg/mL Total Protein 7.1 5.7-8.2 g/dL Albumin 4.4 3.2-4.8 g/dL Assessment Chest pain, likely noncardiac Coronary artery disease status post PTCA x 6 KATHI (on ASA/Plavix) Acute on chronic HFrEF, NYHA class III History of hypertension Hyperlipidemia Type 2 diabetes mellitus Obesity Tobacco use Plan/Recommendation We will continue with following plan/recommendations (Dr. Cooper): Case reviewed and discussed with . Previous transthoracic echocardiogram from 03/09/2024 reveals an EF of 35%. We will recommend to initiate guideline directed medical therapy for CHF as tolerated. Patient recently underwent a coronary angiogram with left heart catheterization on 02/20/24 in which no catheter based intervention was warranted. Images reviewed by . The patient's troponin level on this admission is negative and twelve lead electrocardiogram shows no significant ST segment changes. We will continue with conservative medical management at this time. Continue dual antiplatelet therapy and lipid-lowering agent. Thank you for allowing us to care for this patient. Please call with any questions or concerns. Critical care time spent: 44 minutes This medical document was created using an electronic medical record system with voice recognition software and computerized dictation system. Although this document has been carefully reviewed, there might still be some phonetic and typographical errors. Occasional wrong-word or ``sound-alike substitutions may have occurred due to the inherent limitations of voice recognition software. These areas are purely typographical due to imperfections of the software programs and do not reflect any compromise in the patient's medical care. Please read the chart carefully and recognize, using context, where these substitutions have occurred. Plan discussed with: Patient NYHA Physical activity limitations: Class3(Marked) ordinary (activity causes symtoms) Date of Service: Apr 16, 2024 Billing Provider: LEENA KAPADIA Cardiology Common Codes: 98972-HNBEXXB INP/OBS CARE (High) Cardiology Consultation Codes: 50492-[id number] CONSULT <45MIN LEENA KAPADIA Apr 16, 2024 16:36
[2024-04-16] MEDS: InsuLIN REG 1unit/0.01ml Soln (100units/ml) SC SCH (17:00)
[2024-04-16] MEDS: ACCU-CHEK COMFORT CURVE STRIP VI SCH (17:00)
[2024-04-16] MEDS: SEVELAMER 800 MG TAB PO SCH (18:00)
[2024-04-16 19:25] VITALS: O2SAT 98
[2024-04-17] VITALS (10 sets, daily range): BP systolic 151–179; BP diastolic 72–91; PULSE 78–110; RESP 16–20; TEMP 98–98.9; O2SAT 96–98
[2024-04-17] MEDS: CARVEDILOL 12.5 MG TAB PO SCH (02:22)
[2024-04-17] MEDS: ATORVASTATIN 20 MG TAB PO SCH (02:22)
[2024-04-17] MEDS: HYDROcodone-ACET 5/325MG TAB PO PRN (03:17)
[2024-04-17] MEDS: hydrALAZINE HCL 20 MG/ML VL IV PRN (04:09)
[2024-04-17] MEDS ORDERED: CLON0.1T PO (05:00)
[2024-04-17] MEDS ORDERED: ONDA-155 PO (05:00)
[2024-04-17] MEDS ORDERED: COLCPOW2 PO (05:00)
[2024-04-17] MEDS ORDERED: METO1TAB9 PO (05:00)
[2024-04-17] MEDS: SODIUM CHL 0.9% 1000 ML BAG XX ONE (07:00)
[2024-04-17 08:00] LABS: Hemoglobin 10.3 g/dL (13.5-17.5); Mean Corpuscular Hgb Conc. 32.2 g/dL (32.0-36.0); Mean Corpuscular Volume 93.4 fL (80.0-100.0); Platelet Count (auto) 239 10^3/uL (140-450); Red Blood Cells 3.42 10^6/uL (4.5-5.90); Red Cell Distribution Width 16.9 % (11.8-14.3)
[2024-04-17 08:10] LABS: Band Neutrophils % (manual) 0; Basophils % (manual) 0 (0.0-2.0); Blast Cells 0; Metamyelocytes % 0; Myelocytes % 0; Promyelocytes % 0; Reactive Lymphocytes 0
[2024-04-17 08:33] LABS: % Iron Saturation 19.4 % (20-55)
[2024-04-17 08:40] LABS: Alanine Aminotransferase 12 U/L (7-40); Alkaline Phosphatase 104 U/L (46-116); Anion Gap 12 (5-15); Calcium 9.9 mg/dL (8.7-10.4); Carbon Dioxide 23 mmol/L (20-31)
[2024-04-17 08:41] LABS: Aspartate Aminotransferase 15 U/L (13-40)
[2024-04-17 08:42] LABS: Albumin 4.3 g/dL (3.2-4.8); Total Protein 6.9 g/dL (5.7-8.2)
[2024-04-17 09:25] LABS: Bilirubin, Total 0.2 mg/dL (0.2-1.0); Blood Urea Nitrogen 52 mg/dL (9-23); Chloride 97 mmol/L (98-107); Glucose 113 mg/dL (74-106); Sodium 132 mmol/L (136-145)
[2024-04-17 09:29] LABS: Potassium 6.1 mmol/L (3.5-5.1)
[2024-04-17] MEDS: ASPirin 81 mg TAB PO SCH (09:39)
[2024-04-17] MEDS: CLOPIDOGREL BISULFATE 75 MG TAB PO SCH (09:40)
[2024-04-17] MEDS: B-COMPLEX W/ C & FOLIC ACID(NEPHROVITE TAB) PO SCH (09:40)
[2024-04-17] MEDS: AZITHROMYCIN 500MG/ 250ML 250 ML IV SCH (09:41)
[2024-04-17] MEDS: FUROSEMIDE 40 MG/4 ML VIAL IV SCH (09:41)
[2024-04-17] MEDS: amLODIPine BESYLATE 5 MG TAB PO SCH (10:00)
[2024-04-17 11:17] LABS: Lymphocytes % (manual) 30 (10.0-50.0)
[2024-04-17 11:18] LABS: Eosinophils % (manual) 3 (0-7); Monocytes % (manual) 14 (0-12); Platelet Estimate Adequate
--- NOTE | 2024-04-17 11:59 | DVHPN2 ---
Subjective 59-year-old male with a history of end-stage renal disease, seizures, hypertension, COPD, type 2 diabetes, coronary artery disease, CHF with last ejection fraction 35% comes with chief complaint of weakness and leg pain and lower back pain and chest pain Chest x-ray shows bilateral congestion The patient to last dialysis was 3 days ago Apparently he was at [facility] for back pain and was told he has an abscess and was given oral Cipro and discharged home but his pain is intractable and therefore he came here He is not able to walk Changes from previous H/P or p: Changes Eyes: No Pain, No Vision change, No Conjunctivae inflammation, No Eyelid inflammation, No Other, No Redness ENT: No Ear pain, No Ear discharge, No Nose pain, No Nose discharge, No Nose congestion, No Mouth pain, No Mouth swelling, No Throat pain, No Throat swelling, No Other Cardiovascular: No Chest Pain, No Palpitations, No Orthopnea, No Paroxysmal Noc. Dyspnea, No Edema, No Lt Headedness, No Other Respiratory: No Cough, No Dry, No Shortness of breath, No SOB with excertion, No Wheezing, No Hemoptysis, No Pleuritic Pain, No Sputum, No Other Gastrointestinal: No Nausea, No Vomiting, No Abdominal Pain, No Diarrhea, No Constipation, No Melena, No Hematochezia, No Other Genitourinary: No Dysuria, No Frequency, No Incontinence, No Hematuria, No Retention, No Other Musculoskeletal: other (Bilateral leg weakness); No neck pain, No shoulder pain, No arm pain, No back pain, No hand pain; leg pain; No foot pain Skin: No Rash, No Lesions, No Jaundice, No Bruising, No Other Objective Vitals Vital Signs Date Time Temp Pulse Resp B/P (MAP) Pulse Ox O2 Delivery O2 Flow Rate FiO2 04/17/24 09:00 98.1 95 20 157/91 (113) 96 98.1 04/17/24 02:42 Room Air* 0 21 Intake/Output Intake and Output 04/17/24 07:00 Intake Total 300 ml Balance 300 ml Intake Oral 300 ml General Appearance: Alert, Oriented X3, Cooperative Lungs: Clear to auscultation, Normal air movement Cardiovascular: Regular rate, Normal S1 Abdomen: Normal bowel sounds, Soft Extremities: No edema Medications Current Medications Medications Dose Ordered Sig/Gerard Route Start Time Stop Time Status Last Admin Dose Admin Aspirin 81 mg DAILY PO 04/17/24 10:00 04/17/24 09:39 81 MG Clopidogrel Bisulfate 75 mg DAILY PO 04/17/24 10:00 04/17/24 09:40 75 MG Furosemide 40 mg DAILY IV 04/17/24 10:00 Hydralazine HCl 10 mg Q6HP PRN IV 04/16/24 14:00 04/17/24 04:09 10 MG Carvedilol 12.5 mg Q12HR PO 04/16/24 22:00 04/17/24 02:22 12.5 MG Amlodipine Besylate 5 mg DAILY PO 04/17/24 10:00 Atorvastatin Calcium 20 mg HS PO 04/16/24 22:00 04/17/24 02:22 20 MG Azithromycin 250 ml @ 125 mls/hr DAILY IV 04/17/24 10:00 04/17/24 09:41 125 MLS/HR Albuterol 2.5 mg Q4HPRN PRN NEB 04/16/24 14:00 Ipratropium [place] 0.5 mg Q4HPRN PRN NEB 04/16/24 14:00 Diagnostic Test (Pha) 1 strip ACHS 04/16/24 17:00 04/17/24 06:24 1 STRIP Insulin Human Regular ACHS SC 04/16/24 17:00 Dextrose 50 ml UD PRN IV 04/16/24 14:00 Sodium Chloride 10 ml Q8HR IV 04/16/24 14:00 04/17/24 06:24 10 ML Acetaminophen/ Hydrocodone Bitart 1 tab Q4HP PRN PO 04/16/24 14:00 04/17/24 03:17 1 TAB Ondansetron HCl 4 mg Q4HP PRN IV 04/16/24 14:00 Docusate Sodium 100 mg BIDPRN PRN PO 04/16/24 14:00 Acetaminophen 650 mg Q6HP PRN PO 04/16/24 14:00 Sevelamer HCl 800 mg TIDWM PO 04/16/24 18:00 04/17/24 09:39 800 MG Multivit/Ca Carb/ B Cmplx/FA/Prenat 1 tab DAILY PO 04/17/24 10:00 04/17/24 09:40 1 TAB Nitroglycerin 0.4 mg Q5MINP PRN SL 04/16/24 16:30 Morphine Sulfate 2 mg Q30M PRN IV 04/16/24 16:30 Laboratory Results Laboratory Tests 04/17/24 07:11 Chemistry Test 04/17/24 07:11 Albumin 4.3 g/dL (3.2-4.8) Calcium Level 9.9 mg/dL (8.7-10.4) Total Protein 6.9 g/dL (5.7-8.2) LFT Test 04/17/24 07:11 Alanine Aminotransferase (ALT) 12 U/L (7-40) Alkaline Phosphatase 104 U/L (46-116) Aspartate Amino Transferase (AST) 15 U/L (13-40) Total Bilirubin 0.2 mg/dL (0.2-1.0) Urinalysis Test 04/16/24 03:30 Urine Color Light-yellow (Yellow) Urine Clarity Clear (Clear) Urine pH 8.5 (5.0-9.0) Urine Specific [place] 1.012 (1.001-1.035) Urine Protein 3+ (Negative) H Urine Ketones Negative (Negative) Urine Blood Negative /uL (Negative) Urine Nitrite Negative (Negative) Urine Bilirubin Negative (Negative) Urine Urobilinogen Normal mg/dL (Negative) Urine Leukocyte Esterase Trace /uL (Negative) Urine RBC 2 /hpf (0 - 3) Urine Microscopic WBC 10 /HPF (0-3) H Urine Squamous Epithelial Cells Few /hpf (<5) Urine Bacteria None seen /hpf (None Seen) Urine Glucose 2+ mg/dL (Normal) H Assessment/Plan Assessment/Plan Intractable lower back pain Hyperkalemia End-stage renal disease on hemodialysis Generalized weakness Possible underlying pneumonia Chronic anemia of chronic kidney disease Chest pain most likely noncardiac Coronary artery disease status post PTCA x6 on aspirin and Plavix Acute on chronic heart failure with reduced ejection fraction last ejection fraction 35% Obesity Tobacco use Type 2 diabetes Dyslipidemia Hypertension Plan Get a CT scan of the lumbar spine to rule out abscess since the patient says he was diagnosed with an abscess lately and was given oral Cipro from [facility] Hemodialysis to be done today Nephrology consult Cardiology consult Pain management with morphine and [place] as needed Physical therapy evaluation Full code Discussed with the the patient and with his over the phone Advance directives discussed for 20 minutes Plan discussed with: Patient, Spouse Date of Service: Apr 17, 2024 Billing Provider: SADAF SANTANA MD Common Visit Codes: [id number] INP/OBS CARE(HIGH) Secondary Visit Codes: [id number]-[id number] CARE PLAN 30 MINUTES SADAF SANTANA MD Apr 17, 2024 11:59
--- NOTE | 2024-04-17 13:46 | DVH ---
EXAM: CT LS SPINE WO CONTRAST INDICATION: back pain COMPARISON: None TECHNIQUE: Multiple axial CT images of the lumbar spine were obtained using bone algorithm. Axial an d coronal reformatting was done. Bone and soft tissue windows were reviewed. Radiation Dose Information: CT Dose: CTDI volume is 25 mGy. Dose-length product is 250 mGy*cm FINDINGS: No CT evidence of acute fracture or traumatic mal-alignment. The visualized paraspinal soft tissues a re grossly unremarkable. . There is multilevel degenerative change of the spine, with disc space narrowing, subchondral sclero sis, and marginal osteophyte formation most severe L4-L5 through L5-S1. There is moderate neural fora kvng and spinal canal stenosis secondary to a 6 mm posterior disc osteophyte complex at L4-L5. . IMPRESSION: No CT evidence of acute fracture or traumatic mal-alignment of the bony lumbar spine. Radiation optimization: All CT scans at this facility use at least one of these dose optimization sammy hniques: automated exposure control mA and/or kV adjustment per patient size (includes targeted exam s where dose is matched to clinical indication) or iterative reconstruction.
--- NOTE | 2024-04-17 14:31 | DVHINCON2 ---
Date of service: Apr 17, 2024 Referring Physician RAINER Loya Reason for Consultation End-stage renal disease management History of Present Illness 59 year old patient with significant history of end-stage renal disease on hemodialysis TTS, hypertension, CAD status post multiple stents, seizure disorder, COPD who presents to the hospital with chest pain associated with shortness of breath, leg pain and in pain being around 6/10 worse with exertion. He also complains of progressive generalized weakness without fever chills nausea vomiting or abdominal pain. Initial evaluation revealed findings consistent with end-stage renal disease status. Past Medical History End-stage renal disease, CAD, hypertension. Past Surgical History Hemodialysis access creation AV fistula Allergies: Coded Allergies: Penicillins (Verified Allergy, Unknown, 09/19/23) Tetanus Toxoid (Verified Allergy, Unknown, 09/19/23) Home Meds Active Scripts Prednisone (Prednisone) 20 Mg Tab, 40 MG PO DAILY for 5 Days, #10 MG 0 Refills Prov:BILLY DAVISON MD 03/12/24 Levofloxacin Hemihydrate (LEVOFLOXACIN) 750 Mg Tab, 1 TAB PO DAILY for 1 Day, #1 TAB 0 Refills Prov:BILLY DAVISON MD 03/12/24 Levofloxacin Hemihydrate (LEVOFLOXACIN) 500 Mg Tab, 1 TAB PO EOD for 7 Days, #4 TAB Prov:BILLY DAVISON MD 03/12/24 Sodium Zirconium Cyclosilicate (Lokelma) 10 Gm Hernandez, 10 GM PO DAILY, #10 PACK Prov:ENDY CORTÉS MD 03/04/24 Clopidogrel Bisulfate (CLOPIDOGREL) 75 Mg Tab, 75 MG PO DAILY for 30 Days, #30 TAB Prov:LEÓN COLLINS MD 08/16/23 Reported Medications Colchicine (Colchicine) Pow, 0.6 MG PO Q12HR for 30 Days, MG 04/17/24 Ondansetron HCl (Ondansetron) 4 Mg Tab, 4 MG PO, TAB 04/17/24 Metoprolol Succinate (Metoprolol Succinate Er) 100 Mg Tab, 1 TAB PO DAILY 04/17/24 Clonidine Hydrochloride (Clonidine Hcl) 0.1 Mg Tab, 1 TAB PO DAILY for blood pressure 04/17/24 Irbesartan (Avapro) 300 Mg Tab, 1 TAB PO DAILY, #30 TAB 5 Refills 03/04/24 Furosemide (Lasix) 40 Mg Tab, 40 MG PO DAILY, TAB 03/04/24 Amlodipine Besylate (NORVASC TABLET) 5 Mg Tb, 2 TAB PO DAILY, #30 TAB 5 Refills 03/04/24 Isosorbide Mononitrate (Isosorbide Mononitrate Er) 30 Mg Tab, 30 MG PO DAILY for CAD, MG 09/19/23 Insulin Glargine (Basaglar Kwikpen) 100 Unit/Ml Inj, 100 UNIT SC for DIABETES, INJ 09/19/23 Calcium Acetate (Phosphate Bin (Calcium Acetate) 667 Mg Cap, 667 MG PO TIDWM for DIALYSIS, MG 09/19/23 Sodium Zirconium Cyclosilicate (Lokelma) 5 Gm Hernandez, 5 GM PO DAILY for HYPERKALEMIA, PACK 09/19/23 Atorvastatin Calcium (ATORVASTATIN CALCIUM) 40 Mg Tab, 1 TAB PO DAILY for HIGH CHOLESTEROL, #30 TAB 5 Refills 09/19/23 Effhvvsvkb-Dzztfmmlctkkyw-Ooxv (Breztri Aerosphere 160-9-4.8 Mcg/Act) 1 Aer Aer, 1 AER IN BID for COPD, AER 09/19/23 Albuterol Sulfate (Ventolin) 2.5 Mg/3 Ml Nb, 2.5 MG NEB Q4HP PRN for SHORTNESS OF BREATH, INH 09/19/23 Ranolazine (Ranolazine ER) 500 Mg Tab, 500 MG PO BID for CAD, TAB 09/19/23 Metoprolol Succinate (Metoprolol Succinate Er) 200 Mg Tab, 1 TAB PO DAILY for HTN 08/16/23 Diazepam (VALIUM TABLET) 5 Mg Tb, 5 MG GT PRN PRN for ANXIETY, TAB 08/14/23 Hydralazine Hcl (Hydralazine Hcl) 100 Mg Tab, 1 TAB PO TID, #90 TAB 5 Refills 08/14/23 Gabapentin (Gabapentin) 100 Mg Cap, 1 CAP PO TID, #90 CAP 2 Refills 08/14/23 Pantoprazole Sodium Sesquihydr (Protonix) 40 Mg Tab, 40 MG PO QAM, #30 TAB 08/14/23 Aspirin (Aspir-81) 81 Mg Tab, 1 TAB PO QAM, #30 TAB 5 Refills 08/14/23 Allopurinol (ZYLOPRIM TABLET) 100 Mg Tb, 1 TAB PO QAM, #30 TAB 5 Refills 08/14/23 Current Medications Current Medications Medications (Trade) Dose Ordered Sig/Gerard Route PRN Reason Start Time Stop Time Status Last Admin Aspirin 81 mg DAILY PO 04/17/24 10:00 04/17/24 09:39 Clopidogrel Bisulfate (Plavix) 75 mg DAILY PO 04/17/24 10:00 04/17/24 09:40 Furosemide (Lasix Injection) 40 mg DAILY IV 04/17/24 10:00 Carvedilol (Coreg Tablet) 12.5 mg Q12HR PO 04/16/24 22:00 04/17/24 02:22 Amlodipine Besylate (Norvasc Tablet) 5 mg DAILY PO 04/17/24 10:00 Atorvastatin Calcium (Lipitor) 20 mg HS PO 04/16/24 22:00 04/17/24 02:22 Azithromycin 250 ml @ 125 mls/hr DAILY IV 04/17/24 10:00 04/17/24 09:41 Diagnostic Test (Pha) (Accu-Chek Comfort Curve T) 1 strip ACHS 04/16/24 17:00 04/17/24 06:24 Insulin Human Regular (InsuLIN R) ACHS SC 04/16/24 17:00 Sevelamer HCl (Renagel) 800 mg TIDWM PO 04/16/24 18:00 04/17/24 09:39 Multivit/Ca Carb/ B Cmplx/FA/Prenat (Nephro-Katya Tablet) 1 tab DAILY PO 04/17/24 10:00 04/17/24 09:40 Nitroglycerin (Ntrostat Sublingual) 0.4 mg Q5MINP PRN SL FOR CHEST PAIN 04/16/24 16:30 Morphine Sulfate 2 mg Q30M PRN IV FOR CHEST PAIN 04/16/24 16:30 Morphine Sulfate 2 mg Q4HPRN PRN IV SEVERE PAIN (7-10 PAIN SCALE) 04/17/24 12:00 04/17/24 15:10 Family History: Diabetes mellitus G8 MOTHER, Onset:Unknown G8 FATHER, Onset:Unknown Fibromyalgia G8 MOTHER Hypertension G8 MOTHER G8 FATHER, Onset:Unknown Social History He denies smoking alcohol or drug abuse Review of Systems HEENT: Oral mucosa dry Neck no JVD Cardiovascular: Positive for chest pain Respiratory: Denies cough or shortness of breath Gastrointestinal: Denies for nausea vomiting Musculoskeletal: Denies myalgias Neurological: Denies focal weakness Dermatological: Denies any rash The rest of the review of systems were reviewed pertinent positives and pertinent negatives are as per HPI up to 12 points review of systems H&P Exam Vital Signs/I&O Vital Sign Date Time Temp Pulse Resp B/P (MAP) Pulse Ox O2 Delivery O2 Flow Rate FiO2 04/17/24 15:10 89 18 168/72 04/17/24 13:00 98.0 97 98.0 04/17/24 10:00 Room Air 04/17/24 10:00 0 21 Intake and Output 04/16/24 04/17/24 19:00 07:00 Intake Total 300 ml Balance 300 ml Intake Oral 300 ml Physical Exam HEENT: No evidence of JVD, no oral ulcers. Pulmonary: Lungs are clear on auscultation bilaterally Cardiovascular S1-S2, no S3 or S4 Abdomen: Bowel sounds positive, soft no rebound tenderness Skin: No rash Neurological: Alert, oriented, no focal weakness Hemodialysis access uncomplicated Labs/Diagnostic Data Labs/Diagnostic Data Laboratory Tests Test 04/17/24 07:11 04/17/24 05:42 04/16/24 03:30 04/15/24 22:49 Range/Units White Blood Count 4.0 L 4.7 4.4-10.8 10^3/uL Red Blood Count 3.42 L 3.25 L 4.5-5.90 10^6/uL Hemoglobin 10.3 L 10.2 L 13.5-17.5 g/dL Hematocrit 32.0 L 30.3 L 41.0-53.0 % Mean Corpuscular Volume 93.4 93.1 80.0-100.0 fL Mean Corpuscular Hemoglobin 30.0 31.4 28.0-32.0 pg Mean Corpuscular Hemoglobin Concent 32.2 33.7 32.0-36.0 g/dL Red Cell Distribution Width 16.9 H 17.0 H 11.8-14.3 % Platelet Count 239 238 140-450 10^3/uL Mean Platelet Volume 7.0 6.6 L 6.9-10.8 fL Neutrophils (%) (Auto) 37.0-80.0 % Lymphocytes (%) (Auto) 10.0-50.0 % Monocytes (%) (Auto) 0.0-12.0 % Basophils (%) (Auto) 0.0-2.0 % Neutrophils # (Auto) 1.6-8.6 10 ^3/uL Lymphocytes # (Auto) 0.4-5.4 10 ^3/uL Monocytes # (Auto) 0-1.3 10 ^3/uL Differential Total Cells Counted 100.0 100.0 100 Neutrophils % (Manual) 53 58 37.0-80.0 Band Neutrophils % (Manual) 0 1 Lymphocytes % (Manual) 30 14 10.0-50.0 Monocytes % (Manual) 14 H 22 H 0-12 Eosinophils % (Manual) 3 5 0-7 Basophils % (Manual) 0 0 0.0-2.0 Metamyelocytes % (manual) 0 0 Myelocytes % (Manual) 0 0 Promyelocytes % (Manual) 0 0 Blast Cells % (Manual) 0 0 Reactive Lymphocytes 0 0 Platelet Estimate Adequate Adequate Sodium Level 132 L 135 L 136-145 mmol/L Potassium Level 6.1 *H 4.9 3.5-5.1 mmol/L Chloride Level 97 L 95 L 98-107 mmol/L Carbon Dioxide Level 23 28 20-31 mmol/L Anion Gap 12 12 5-15 Blood Urea Nitrogen 52 #H 39 H 9-23 mg/dL Creatinine 8.70 H 7.20 H 0.700-1.30 mg/dL Glomerular Filtration Rate Calc 6 8 >90 mL/min BUN/Creatinine Ratio 6.0 L 5.4 L 10.0-20.0 Serum Glucose 113 H 126 H 74-106 mg/dL Calcium Level 9.9 10.1 8.7-10.4 mg/dL Iron Level 38 L 65-175 ug/dL Total Iron Binding Capacity 196 L 250-425 ug/dL Percent Iron Saturation 19.4 L 20-55 % Ferritin 1012.9 H 22-322 ng/mL Total Bilirubin 0.2 0.3 0.2-1.0 mg/dL Aspartate Amino Transferase (AST) 15 15 13-40 U/L Alanine Aminotransferase (ALT) 12 13 7-40 U/L Alkaline Phosphatase 104 109 46-116 U/L Total Protein 6.9 7.1 5.7-8.2 g/dL Albumin 4.3 4.4 3.2-4.8 g/dL POC Glucose 122 H 70-106 mg/dl Urine Color Light-yellow Yellow Urine Clarity Clear Clear Urine pH 8.5 5.0-9.0 Urine Specific [place] 1.012 1.001-1.035 Urine Protein 3+ H Negative Urine Ketones Negative Negative Urine Blood Negative Negative /uL Urine Nitrite Negative Negative Urine Bilirubin Negative Negative Urine Urobilinogen Normal Negative mg/dL Urine Leukocyte Esterase Trace Negative /uL Urine RBC 2 0 - 3 /hpf Urine Microscopic WBC 10 H 0-3 /HPF Urine Squamous Epithelial Cells Few <5 /hpf Urine Bacteria None seen None Seen /hpf Urine Glucose 2+ H Normal mg/dL Troponin I High Sensitivity 21 </=54 ng/L B-Type Natriuretic Peptide 1793.19 0-100 pg/mL Chest x-ray with mild interstitial markings Assessment Assessment: 1. End-stage renal disease on hemodialysis 2. Chest pain 3. CAD 4. Hypertension 5. Hyperkalemia 6. Anemia 7. CHF 8. Diabetes type 2 Plan: Hemodialysis today then TTS Lokelma every other day on non dialysis days Cardiology consult Fluid restriction less than 1 L per day Resume antihypertensive meds, phosphate binders Kody for goal hemoglobin 10 to 11 grams/deciliter Thank you very much for allowing us to participate in the care of this patient Plan discussed with: Patient TOMÁS RODARTE MD Apr 17, 2024 14:31
[2024-04-17] MEDS: MORPHINE SULFATE INJ 2 MG/ml SYRG IV PRN (15:10)
[2024-04-17] MEDS: EPOETIN ALFA-EPBX 4,000 UNIT/ML VIAL SC ONE (21:44)
[2024-04-18] VITALS (10 sets, daily range): BP systolic 136–172; BP diastolic 62–82; PULSE 59–96; RESP 15–19; TEMP 97.5–98.4; O2SAT 92–98
[2024-04-18] MEDS: SODIUM ZIRCONIUM CYCL 10 GM PAK ONE (06:34)
[2024-04-18] MEDS: SODIUM ZIRCONIUM CYCL 10 GM PAK PO ONE (06:34)
--- NOTE | 2024-04-18 12:50 | DVH ---
EXAM: MRI LUMBAR SPINE WO CONTRAST HISTORY: back pain COMPARISON: CT scan dated 04/17/2024 TECHNIQUE: MRI was performed utilizing multiple appropriate imaging planes and pulse sequences. FINDINGS: For the purposes of this report, the last square-shaped vertebra is considered L5. Prior to any surg yang, correlation with lumbar spine radiographs should be done. VERTEBRAE: No significant compression deformity is noted. No suspicious lesion is seen. SPINAL CORD: Terminates at the L1 level. No evidence of cord edema or myelomalacia within the parti ally visualized conus medullaris. PARASPINAL SOFT TISSUES: Unremarkable. INTERVERTEBRAL DISCS: T12-L1: No disc herniation, central canal stenosis or neural foramina narrowing. The posterior facet s and ligamentum flavum are unremarkable. L1-L2: No disc herniation, central canal stenosis or neural foramina narrowing. The posterior facets and ligamentum flavum are unremarkable. L2-L3: Mild broad-based posterior disc bulge, mild bilateral posterior facet and ligamenta flava hyp ertrophy with resultant mild central canal stenosis and mild bilateral neural foramina stenosis witho ut definite nerve impingement. L3-L4: Broad-based posterior disc bulging measuring up to 4.8 mm in the central region a subcentime ter underlying annular fissure, mild bilateral posterior facet and ligamenta flava hypertrophy with r esultant mild central canal stenosis and mild bilateral neural foramina stenosis without definite ner ve impingement. L4-L5: 2 mm degenerative grade 1 anterolisthesis of L4 on L5, severe reduction height, irregularity of the endplates of fluid. Extensive bone marrow edema in L4 on L5, broad-based posterior disc bulg e measuring up to 5.51 region 8 mm inferior extrusion, mild bilateral posterior facet mentum flavum h ypertrophy with mild central canal stenosis moderate bilateral neural foraminal stenosis with impinge ment of the bilateral emerging L5 of the bilateral exiting L4 nerves. L5-S1: 3 mm degenerative grade 1 anterolisthesis of L5 on S1 due to bilateral L5 pars defects. Broa d-based posterior disc bulge eccentric to the left measuring 5.5 mm in the left paracentral region la teral recess impinging the left emerging S1 nerve roots. Mild right and moderate left neural foramina l stenosis with impingement of the left exiting L5 nerve. Shaped fluid collection along the anterior aspect of measuring 1 cm in thickness 1.5 cm in craniocaudal concerning for an abscess. OTHER: None. IMPRESSION: 1. Findings most compatible with L4-L5 spondylodiscitis an anterior prevertebral abscess. Recommend neurosurgical consultation. No epidural abscess identified in the unenhanced study. 2. Grade 1 anterolisthesis at L5-S1 due to bilateral L5 pars defects. 3. Multilevel degenerative disc disease and posterior facet arthropathy with evidence of nerve imping ement at L4-L5 and L5-S1 levels.
--- NOTE | 2024-04-18 13:05 | DVHINCON2 ---
Date of service: Apr 18, 2024 History of Present Illness Home Meds Active Scripts Prednisone (Prednisone) 20 Mg Tab, 40 MG PO DAILY for 5 Days, #10 MG 0 Refills Prov:BILLY DAVISON MD 03/12/24 Levofloxacin Hemihydrate (LEVOFLOXACIN) 750 Mg Tab, 1 TAB PO DAILY for 1 Day, #1 TAB 0 Refills Prov:BILLY DAVISON MD 03/12/24 Levofloxacin Hemihydrate (LEVOFLOXACIN) 500 Mg Tab, 1 TAB PO EOD for 7 Days, #4 TAB Prov:BILLY DAVISON MD 03/12/24 Sodium Zirconium Cyclosilicate (Lokelma) 10 Gm Hernandez, 10 GM PO DAILY, #10 PACK Prov:ENDY CORTÉS MD 03/04/24 Clopidogrel Bisulfate (CLOPIDOGREL) 75 Mg Tab, 75 MG PO DAILY for 30 Days, #30 TAB Prov:LEÓN COLLINS MD 08/16/23 Reported Medications Colchicine (Colchicine) Pow, 0.6 MG PO Q12HR for 30 Days, MG 04/17/24 Ondansetron HCl (Ondansetron) 4 Mg Tab, 4 MG PO, TAB 04/17/24 Metoprolol Succinate (Metoprolol Succinate Er) 100 Mg Tab, 1 TAB PO DAILY 04/17/24 Clonidine Hydrochloride (Clonidine Hcl) 0.1 Mg Tab, 1 TAB PO DAILY for blood pressure 04/17/24 Irbesartan (Avapro) 300 Mg Tab, 1 TAB PO DAILY, #30 TAB 5 Refills 03/04/24 Furosemide (Lasix) 40 Mg Tab, 40 MG PO DAILY, TAB 03/04/24 Amlodipine Besylate (NORVASC TABLET) 5 Mg Tb, 2 TAB PO DAILY, #30 TAB 5 Refills 03/04/24 Isosorbide Mononitrate (Isosorbide Mononitrate Er) 30 Mg Tab, 30 MG PO DAILY for CAD, MG 09/19/23 Insulin Glargine (Basaglar Kwikpen) 100 Unit/Ml Inj, 100 UNIT SC for DIABETES, INJ 09/19/23 Calcium Acetate (Phosphate Bin (Calcium Acetate) 667 Mg Cap, 667 MG PO TIDWM for DIALYSIS, MG 09/19/23 Sodium Zirconium Cyclosilicate (Lokelma) 5 Gm Hernandez, 5 GM PO DAILY for HYPERKALEMIA, PACK 09/19/23 Atorvastatin Calcium (ATORVASTATIN CALCIUM) 40 Mg Tab, 1 TAB PO DAILY for HIGH CHOLESTEROL, #30 TAB 5 Refills 09/19/23 Rkqidbsvkk-Hihvhhyawbzhdr-Dlsc (Breztri Aerosphere 160-9-4.8 Mcg/Act) 1 Aer Aer, 1 AER IN BID for COPD, AER 09/19/23 Albuterol Sulfate (Ventolin) 2.5 Mg/3 Ml Nb, 2.5 MG NEB Q4HP PRN for SHORTNESS OF BREATH, INH 09/19/23 Ranolazine (Ranolazine ER) 500 Mg Tab, 500 MG PO BID for CAD, TAB 09/19/23 Metoprolol Succinate (Metoprolol Succinate Er) 200 Mg Tab, 1 TAB PO DAILY for HTN 08/16/23 Diazepam (VALIUM TABLET) 5 Mg Tb, 5 MG GT PRN PRN for ANXIETY, TAB 08/14/23 Hydralazine Hcl (Hydralazine Hcl) 100 Mg Tab, 1 TAB PO TID, #90 TAB 5 Refills 08/14/23 Gabapentin (Gabapentin) 100 Mg Cap, 1 CAP PO TID, #90 CAP 2 Refills 08/14/23 Pantoprazole Sodium Sesquihydr (Protonix) 40 Mg Tab, 40 MG PO QAM, #30 TAB 08/14/23 Aspirin (Aspir-81) 81 Mg Tab, 1 TAB PO QAM, #30 TAB 5 Refills 08/14/23 Allopurinol (ZYLOPRIM TABLET) 100 Mg Tb, 1 TAB PO QAM, #30 TAB 5 Refills 08/14/23 Timing/Duration of Back Pain: Getting worse Quality of Back Pain: Aching, Burning, Cramping Back Pain Location: Lumbar spine Past Medical History Patient Family History: Diabetes mellitus G8 MOTHER, Onset:Unknown G8 FATHER, Onset:Unknown Fibromyalgia G8 MOTHER Hypertension G8 MOTHER G8 FATHER, Onset:Unknown H&P Exam Vital Signs Vital Signs Date Time Temp Pulse Resp B/P (MAP) Pulse Ox O2 Delivery O2 Flow Rate FiO2 04/18/24 10:06 88 18 158/75 04/18/24 10:00 97 Room Air* 0 21 04/18/24 09:00 97.8 97.8 Labs/Xrays MRI LUMBAR SPINE REVEALS THE PRESENCE OF LUMBAR 4/5 DISCITIS AND OSTEOMYELITIS OF THE L4 AND 5 BONE RESPECTIVELY THERE IS NO EPIDURAL ABSCESS THAT REQUIRES SURGERY THE TREATMENT ALGORITHM FOR THIS IS GET A CRP AND ESR LABS IMMEDIATELY TO GET BASELINE LABS THEN GET AN I.D. CONSULT TO DO IV ANTIBIOTICS FOR MINIMUM FOR 6 WEEKS AND THEN CONVERT TO PO UNTIL MRI FINDINGS BECOME NORMAL. IF THE WBC CONTINUES TO RISE, IF THE PATIENT DEVELOPS PERSISTENT FEVERS OR DEVELOPS PROGRESSIVE NEURO DEFICIT PLEAS FEEL TO RE-CONSULT Labs Test 04/18/24 11:15 04/17/24 07:11 04/16/24 03:30 04/15/24 22:49 Range/Units POC Glucose 207 H 70-106 mg/dl White Blood Count 4.0 L 4.4-10.8 10^3/uL Red Blood Count 3.42 L 4.5-5.90 10^6/uL Hemoglobin 10.3 L 13.5-17.5 g/dL Hematocrit 32.0 L 41.0-53.0 % Mean Corpuscular Volume 93.4 80.0-100.0 fL Mean Corpuscular Hemoglobin 30.0 28.0-32.0 pg Mean Corpuscular Hemoglobin Concent 32.2 32.0-36.0 g/dL Red Cell Distribution Width 16.9 H 11.8-14.3 % Platelet Count 239 140-450 10^3/uL Mean Platelet Volume 7.0 6.9-10.8 fL Neutrophils (%) (Auto) 37.0-80.0 % Lymphocytes (%) (Auto) 10.0-50.0 % Monocytes (%) (Auto) 0.0-12.0 % Basophils (%) (Auto) 0.0-2.0 % Neutrophils # (Auto) 1.6-8.6 10 ^3/uL Lymphocytes # (Auto) 0.4-5.4 10 ^3/uL Monocytes # (Auto) 0-1.3 10 ^3/uL Differential Total Cells Counted 100.0 100 Neutrophils % (Manual) 53 37.0-80.0 Band Neutrophils % (Manual) 0 Lymphocytes % (Manual) 30 10.0-50.0 Monocytes % (Manual) 14 H 0-12 Eosinophils % (Manual) 3 0-7 Basophils % (Manual) 0 0.0-2.0 Metamyelocytes % (manual) 0 Myelocytes % (Manual) 0 Promyelocytes % (Manual) 0 Blast Cells % (Manual) 0 Reactive Lymphocytes 0 Platelet Estimate Adequate Sodium Level 132 L 136-145 mmol/L Potassium Level 6.1 *H 3.5-5.1 mmol/L Chloride Level 97 L 98-107 mmol/L Carbon Dioxide Level 23 20-31 mmol/L Anion Gap 12 5-15 Blood Urea Nitrogen 52 #H 9-23 mg/dL Creatinine 8.70 H 0.700-1.30 mg/dL Glomerular Filtration Rate Calc 6 >90 mL/min BUN/Creatinine Ratio 6.0 L 10.0-20.0 Serum Glucose 113 H 74-106 mg/dL Calcium Level 9.9 8.7-10.4 mg/dL Iron Level 38 L 65-175 ug/dL Total Iron Binding Capacity 196 L 250-425 ug/dL Percent Iron Saturation 19.4 L 20-55 % Ferritin 1012.9 H 22-322 ng/mL Total Bilirubin 0.2 0.2-1.0 mg/dL Aspartate Amino Transferase (AST) 15 13-40 U/L Alanine Aminotransferase (ALT) 12 7-40 U/L Alkaline Phosphatase 104 46-116 U/L Total Protein 6.9 5.7-8.2 g/dL Albumin 4.3 3.2-4.8 g/dL Urine Color Light-yellow Yellow Urine Clarity Clear Clear Urine pH 8.5 5.0-9.0 Urine Specific [place] 1.012 1.001-1.035 Urine Protein 3+ H Negative Urine Ketones Negative Negative Urine Blood Negative Negative /uL Urine Nitrite Negative Negative Urine Bilirubin Negative Negative Urine Urobilinogen Normal Negative mg/dL Urine Leukocyte Esterase Trace Negative /uL Urine RBC 2 0 - 3 /hpf Urine Microscopic WBC 10 H 0-3 /HPF Urine Squamous Epithelial Cells Few <5 /hpf Urine Bacteria None seen None Seen /hpf Urine Glucose 2+ H Normal mg/dL Troponin I High Sensitivity 21 </=54 ng/L B-Type Natriuretic Peptide 1793.19 0-100 pg/mL Assessment/Plan Plan discussed with: ANIBAL Handley MD Apr 18, 2024 13:05
[2024-04-18] MEDS ORDERED: VANCOMYCIN 1GM/250ML KIT 250 ML IV ONE (14:15)
[2024-04-18] MEDS ORDERED: VANCOMYCIN PER PHARMACY 0 MG IV SCH ×2 (14:15→21:30)
--- NOTE | 2024-04-18 14:20 | DVHPN2 ---
Subjective Still complains of low back pain and weakness in his legs CT lumbar spine scan was negative so we ordered an MRI MRI of the lumbar spine shows L4-L5 diskitis with an anterior prevertebral abscess Changes from previous H/P or p: Changes Eyes: No Pain, No Vision change, No Conjunctivae inflammation, No Eyelid inflammation, No Other, No Redness ENT: No Ear pain, No Ear discharge, No Nose pain, No Nose discharge, No Nose congestion, No Mouth pain, No Mouth swelling, No Throat pain, No Throat swelling, No Other Cardiovascular: No Chest Pain, No Palpitations, No Orthopnea, No Paroxysmal Noc. Dyspnea, No Edema, No Lt Headedness, No Other Respiratory: No Cough, No Dry, No Shortness of breath, No SOB with excertion, No Wheezing, No Hemoptysis, No Pleuritic Pain, No Sputum, No Other Gastrointestinal: No Nausea, No Vomiting, No Abdominal Pain, No Diarrhea, No Constipation, No Melena, No Hematochezia, No Other Genitourinary: No Dysuria, No Frequency, No Incontinence, No Hematuria, No Retention, No Other Musculoskeletal: other (Bilateral leg weakness); No neck pain, No shoulder pain, No arm pain, No back pain, No hand pain; leg pain; No foot pain Skin: No Rash, No Lesions, No Jaundice, No Bruising, No Other Objective Vitals Vital Signs Date Time Temp Pulse Resp B/P (MAP) Pulse Ox O2 Delivery O2 Flow Rate FiO2 04/18/24 13:00 98.3 87 16 136/62 (86) 94 98.3 04/18/24 10:00 Room Air* 0 21 Intake/Output Intake and Output 04/18/24 06:59 Intake Total 1640 ml Output Total 925 ml Balance 715 ml Intake Oral 1640 ml Output Urine Total 925 ml General Appearance: Alert, Oriented X3, Cooperative Lungs: Clear to auscultation, Normal air movement Cardiovascular: Regular rate, Normal S1 Abdomen: Normal bowel sounds, Soft Extremities: No edema Medications Current Medications Medications Dose Ordered Sig/Gerard Route Start Time Stop Time Status Last Admin Dose Admin Aspirin 81 mg DAILY PO 04/17/24 10:00 04/18/24 08:38 81 MG Clopidogrel Bisulfate 75 mg DAILY PO 04/17/24 10:00 04/18/24 08:38 75 MG Furosemide 40 mg DAILY IV 04/17/24 10:00 Hydralazine HCl 10 mg Q6HP PRN IV 04/16/24 14:00 04/18/24 04:03 10 MG Carvedilol 12.5 mg Q12HR PO 04/16/24 22:00 04/18/24 08:39 12.5 MG Amlodipine Besylate 5 mg DAILY PO 04/17/24 10:00 04/18/24 08:40 5 MG Atorvastatin Calcium 20 mg HS PO 04/16/24 22:00 04/17/24 21:47 20 MG Azithromycin 250 ml @ 125 mls/hr DAILY IV 04/17/24 10:00 04/18/24 10:14 125 MLS/HR Albuterol 2.5 mg Q4HPRN PRN NEB 04/16/24 14:00 Cancel Ipratropium [place] 0.5 mg Q4HPRN PRN NEB 04/16/24 14:00 Cancel Diagnostic Test (Pha) 1 strip ACHS 04/16/24 17:00 04/18/24 11:37 1 STRIP Insulin Human Regular ACHS SC 04/16/24 17:00 04/18/24 11:38 4 UNITS Dextrose 50 ml UD PRN IV 04/16/24 14:00 Sodium Chloride 10 ml Q8HR IV 04/16/24 14:00 04/18/24 14:10 10 ML Acetaminophen/ Hydrocodone Bitart 1 tab Q4HP PRN PO 04/16/24 14:00 04/17/24 11:56 1 TAB Ondansetron HCl 4 mg Q4HP PRN IV 04/16/24 14:00 Docusate Sodium 100 mg BIDPRN PRN PO 04/16/24 14:00 Acetaminophen 650 mg Q6HP PRN PO 04/16/24 14:00 Sevelamer HCl 800 mg TIDWM PO 04/16/24 18:00 04/18/24 12:00 800 MG Multivit/Ca Carb/ B Cmplx/FA/Prenat 1 tab DAILY PO 04/17/24 10:00 04/18/24 08:38 1 TAB Nitroglycerin 0.4 mg Q5MINP PRN SL 04/16/24 16:30 Morphine Sulfate 2 mg Q30M PRN IV 04/16/24 16:30 Morphine Sulfate 2 mg Q4HPRN PRN IV 04/17/24 12:00 04/18/24 10:06 2 MG Laboratory Results Laboratory Tests 04/17/24 07:11 Urinalysis Test 04/16/24 03:30 Urine Color Light-yellow (Yellow) Urine Clarity Clear (Clear) Urine pH 8.5 (5.0-9.0) Urine Specific [place] 1.012 (1.001-1.035) Urine Protein 3+ (Negative) H Urine Ketones Negative (Negative) Urine Blood Negative /uL (Negative) Urine Nitrite Negative (Negative) Urine Bilirubin Negative (Negative) Urine Urobilinogen Normal mg/dL (Negative) Urine Leukocyte Esterase Trace /uL (Negative) Urine RBC 2 /hpf (0 - 3) Urine Microscopic WBC 10 /HPF (0-3) H Urine Squamous Epithelial Cells Few /hpf (<5) Urine Bacteria None seen /hpf (None Seen) Urine Glucose 2+ mg/dL (Normal) H Assessment/Plan Assessment/Plan Intractable lower back pain Hyperkalemia End-stage renal disease on hemodialysis Generalized weakness Possible underlying pneumonia Chronic anemia of chronic kidney disease Chest pain most likely noncardiac Coronary artery disease status post PTCA x6 on aspirin and Plavix Acute on chronic heart failure with reduced ejection fraction last ejection fraction 35% Obesity Tobacco use Type 2 diabetes Dyslipidemia Hypertension Plan Get a CT scan of the lumbar spine to rule out abscess since the patient says he was diagnosed with an abscess lately and was given oral Cipro from [facility] [place] Hemodialysis to be done today Nephrology consult Cardiology consult Pain management with morphine and [place] as needed Physical therapy evaluation Full code Discussed with the the patient and with his over the phone Advance directives discussed for 20 minutes 04/18/2024: Lumbar spine L4-L5 diskitis with anterior prevertebral abscess Degenerative disc disease of the lumbar spine End-stage renal disease Hyperkalemia Plan: Start broad-spectrum antibiotics with meropenem and vancomycin Infectious Disease consultation Spinal surgery consultation Hemodialysis per nephrology Repeat the labs Monitor the patient closely Plan discussed with: Patient My Orders Orders - SADAF SANTANA MD Procedure Category Date Status Time Lumbar Spine Wo MRI 04/18/24 Resulted Contrast 10:12 Consultdr. Mason CONS 04/18/24 Transmitted [place](Spine) 10:12 * Infectious [place]- CONS 04/18/24 Transmitted [facility]in 14:11 Vancomycin 1gm/250ml PHA 04/18/24 Logged Kit 14:15 Vancomycin Per PHA 04/18/24 Logged Pharmacy 14:15 Meropenem 500mg X One PHA 04/18/24 Verified Ivpb 14:30 Meropenem 500mg PHA 04/19/24 Verified Daily(Gfr<10) 10:00 Date of Service: Apr 18, 2024 Billing Provider: SADAF SANTANA MD Common Visit Codes: [id number] INP/OBS CARE(HIGH) SADAF SANTANA MD Apr 18, 2024 14:20
[2024-04-18] MEDS: VANCOMYCIN 1.75GM/350ML 350 ML IV ONE (15:00)
[2024-04-18] MEDS: MEROPENEM 500MG IVPB 50 ML IV ONE (15:19)
--- NOTE | 2024-04-18 16:14 | DVHPN2 ---
Progress Note - Dictate Date Seen: Apr 18, 2024 Has the PT tested + for MRSA If YES, has PT been informed?: No Medical Necessity Reason Pt with a Central, PICC or Fol: No Subjective Patient denies any acute symptoms at this time feels better. vital signs Vital Sign Date Time Temp Pulse Resp B/P (MAP) Pulse Ox O2 Delivery O2 Flow Rate FiO2 04/18/24 14:30 85 17 146/72 04/18/24 13:00 98.3 94 98.3 04/18/24 10:00 Room Air* 0 21 Total Intake and Output 04/17/24 04/17/24 04/18/24 15:00 23:00 07:00 Intake Total 640 ml 1000 ml Output Total 725 ml 200 ml Balance -85 ml 800 ml medications Current Medications Medications Dose Ordered Sig/Gerard Route Start Time Stop Time Status Last Admin Dose Admin Aspirin 81 mg DAILY PO 04/17/24 10:00 04/18/24 08:38 81 MG Clopidogrel Bisulfate 75 mg DAILY PO 04/17/24 10:00 04/18/24 08:38 75 MG Furosemide 40 mg DAILY IV 04/17/24 10:00 04/18/24 10:00 40 MG Hydralazine HCl 10 mg Q6HP PRN IV 04/16/24 14:00 04/18/24 04:03 10 MG Carvedilol 12.5 mg Q12HR PO 04/16/24 22:00 04/18/24 08:39 12.5 MG Amlodipine Besylate 5 mg DAILY PO 04/17/24 10:00 04/18/24 08:40 5 MG Atorvastatin Calcium 20 mg HS PO 04/16/24 22:00 04/17/24 21:47 20 MG Albuterol 2.5 mg Q4HPRN PRN NEB 04/16/24 14:00 Cancel Ipratropium [place] 0.5 mg Q4HPRN PRN NEB 04/16/24 14:00 Cancel Diagnostic Test (Pha) 1 strip ACHS 04/16/24 17:00 04/18/24 11:37 1 STRIP Insulin Human Regular ACHS SC 04/16/24 17:00 04/18/24 11:38 4 UNITS Dextrose 50 ml UD PRN IV 04/16/24 14:00 Sodium Chloride 10 ml Q8HR IV 04/16/24 14:00 04/18/24 14:10 10 ML Acetaminophen/ Hydrocodone Bitart 1 tab Q4HP PRN PO 04/16/24 14:00 04/17/24 11:56 1 TAB Ondansetron HCl 4 mg Q4HP PRN IV 04/16/24 14:00 Docusate Sodium 100 mg BIDPRN PRN PO 04/16/24 14:00 Acetaminophen 650 mg Q6HP PRN PO 04/16/24 14:00 Sevelamer HCl 800 mg TIDWM PO 04/16/24 18:00 04/18/24 12:00 800 MG Multivit/Ca Carb/ B Cmplx/FA/Prenat 1 tab DAILY PO 04/17/24 10:00 04/18/24 08:38 1 TAB Nitroglycerin 0.4 mg Q5MINP PRN SL 04/16/24 16:30 Morphine Sulfate 2 mg Q30M PRN IV 04/16/24 16:30 Morphine Sulfate 2 mg Q4HPRN PRN IV 04/17/24 12:00 04/18/24 14:30 2 MG Vancomycin HCl 0 ml @ 0 mls/hr UD IV 04/18/24 14:15 Meropenem 50 ml @ 17 mls/hr HS IV 04/18/24 22:00 objective HEENT: No evidence of JVD, no oral ulcers. Pulmonary: Lungs are clear on auscultation bilaterally Cardiovascular S1-S2, no S3 or S4 Abdomen: Bowel sounds positive, soft no rebound tenderness Skin: No rash Neurological: Alert, oriented, no focal weakness Dialysis access move with no complications laboratory and microbiology Laboratory Tests 04/17/24 07:11 Test 04/17/24 07:11 Range/Units Serum Glucose 113 H 74-106 mg/dL Assessment/Plan Assessment: 1. End-stage renal disease on hemodialysis 2. Chest pain 3. Pneumonia 4. Hypertension 5. Hyperkalemia 6. Anemia 7. CHF 8. Diabetes type 2 9. Intractable back pain 10. CAD status post multiple stentings Plan: Hemodialysis today then TTS; aim for UF 3 L [place] every other day on non dialysis days Undergoing evaluation by spine surgeon Continue antibiotics renally dose for GFR less than 10 mL per minute Cardiology consult Fluid restriction less than 1 L per day Resume antihypertensive meds, phosphate binders Kody for goal hemoglobin 10 to 11 grams/deciliter Thank you very much for allowing us to participate in the care of this patient Plan discussed with: Patient TOMÁS RODARTE MD Apr 18, 2024 16:14
--- NOTE | 2024-04-18 21:28 | DVHINCON2 ---
"Date of service: Apr 18, 2024 Family History: Diabetes mellitus G8 MOTHER, Onset:Unknown G8 FATHER, Onset:Unknown Fibromyalgia G8 MOTHER Hypertension G8 MOTHER G8 FATHER, Onset:Unknown Allergies: Coded Allergies: Penicillins (Verified Allergy, Unknown, 09/19/23) Tetanus Toxoid (Verified Allergy, Unknown, 09/19/23) Home Meds Active Scripts Prednisone (Prednisone) 20 Mg Tab, 40 MG PO DAILY for 5 Days, #10 MG 0 Refills Prov:BILLY DAVISON MD 03/12/24 Levofloxacin Hemihydrate (LEVOFLOXACIN) 750 Mg Tab, 1 TAB PO DAILY for 1 Day, #1 TAB 0 Refills Prov:BILLY DAVISON MD 03/12/24 Levofloxacin Hemihydrate (LEVOFLOXACIN) 500 Mg Tab, 1 TAB PO EOD for 7 Days, #4 TAB Prov:BILLY DAVISON MD 03/12/24 Sodium Zirconium Cyclosilicate (Lokelma) 10 Gm Hernandez, 10 GM PO DAILY, #10 PACK Prov:ENDY CORTÉS MD 03/04/24 Clopidogrel Bisulfate (CLOPIDOGREL) 75 Mg Tab, 75 MG PO DAILY for 30 Days, #30 TAB Prov:LEÓN COLLINS MD 08/16/23 Reported Medications Colchicine (Colchicine) Pow, 0.6 MG PO Q12HR for 30 Days, MG 04/17/24 Ondansetron HCl (Ondansetron) 4 Mg Tab, 4 MG PO, TAB 04/17/24 Metoprolol Succinate (Metoprolol Succinate Er) 100 Mg Tab, 1 TAB PO DAILY 04/17/24 Clonidine Hydrochloride (Clonidine Hcl) 0.1 Mg Tab, 1 TAB PO DAILY for blood pressure 04/17/24 Irbesartan (Avapro) 300 Mg Tab, 1 TAB PO DAILY, #30 TAB 5 Refills 03/04/24 Furosemide (Lasix) 40 Mg Tab, 40 MG PO DAILY, TAB 03/04/24 Amlodipine Besylate (NORVASC TABLET) 5 Mg Tb, 2 TAB PO DAILY, #30 TAB 5 Refills 03/04/24 Isosorbide Mononitrate (Isosorbide Mononitrate Er) 30 Mg Tab, 30 MG PO DAILY for CAD, MG 09/19/23 Insulin Glargine (Basaglar Kwikpen) 100 Unit/Ml Inj, 100 UNIT SC for DIABETES, INJ 09/19/23 Calcium Acetate (Phosphate Bin (Calcium Acetate) 667 Mg Cap, 667 MG PO TIDWM for DIALYSIS, MG 09/19/23 Sodium Zirconium Cyclosilicate (Lokelma) 5 Gm Hernandez, 5 GM PO DAILY for HYPERKALEMIA, PACK 09/19/23 Atorvastatin Calcium (ATORVASTATIN CALCIUM) 40 Mg Tab, 1 TAB PO DAILY for HIGH CHOLESTEROL, #30 TAB 5 Refills 09/19/23 Kuadotjnyt-Jaiqnxwjtgtgfg-Icfa (Breztri Aerosphere 160-9-4.8 Mcg/Act) 1 Aer Aer, 1 AER IN BID for COPD, AER 09/19/23 Albuterol Sulfate (Ventolin) 2.5 Mg/3 Ml Nb, 2.5 MG NEB Q4HP PRN for SHORTNESS OF BREATH, INH 09/19/23 Ranolazine (Ranolazine ER) 500 Mg Tab, 500 MG PO BID for CAD, TAB 09/19/23 Metoprolol Succinate (Metoprolol Succinate Er) 200 Mg Tab, 1 TAB PO DAILY for HTN 08/16/23 Diazepam (VALIUM TABLET) 5 Mg Tb, 5 MG GT PRN PRN for ANXIETY, TAB 08/14/23 Hydralazine Hcl (Hydralazine Hcl) 100 Mg Tab, 1 TAB PO TID, #90 TAB 5 Refills 08/14/23 Gabapentin (Gabapentin) 100 Mg Cap, 1 CAP PO TID, #90 CAP 2 Refills 08/14/23 Pantoprazole Sodium Sesquihydr (Protonix) 40 Mg Tab, 40 MG PO QAM, #30 TAB 08/14/23 Aspirin (Aspir-81) 81 Mg Tab, 1 TAB PO QAM, #30 TAB 5 Refills 08/14/23 Allopurinol (ZYLOPRIM TABLET) 100 Mg Tb, 1 TAB PO QAM, #30 TAB 5 Refills 08/14/23 Current Medications Current Medications Medications (Trade) Dose Ordered Sig/Gerard Route PRN Reason Start Time Stop Time Status Last Admin Vancomycin HCl 0 ml @ 0 mls/hr UD IV 04/18/24 14:15 Meropenem 50 ml @ 17 mls/hr HS IV 04/18/24 22:00 Cancel Daptomycin / Sodium Chloride 50 ml @ 100 mls/hr TUTHSA IV 04/19/24 21:00 UNV Vital Signs Vital Signs Date Time Temp Pulse Resp B/P (MAP) Pulse Ox O2 Delivery O2 Flow Rate FiO2 04/18/24 21:00 97.5 88 18 164/72 (102) 98 97.5 04/18/24 10:00 Room Air* 0 21 Labs/Diagnostic Data Labs Test 04/18/24 17:35 04/17/24 07:11 04/16/24 03:30 04/15/24 22:49 Range/Units POC Glucose 134 H 70-106 mg/dl White Blood Count 4.0 L 4.4-10.8 10^3/uL Red Blood Count 3.42 L 4.5-5.90 10^6/uL Hemoglobin 10.3 L 13.5-17.5 g/dL Hematocrit 32.0 L 41.0-53.0 % Mean Corpuscular Volume 93.4 80.0-100.0 fL Mean Corpuscular Hemoglobin 30.0 28.0-32.0 pg Mean Corpuscular Hemoglobin Concent 32.2 32.0-36.0 g/dL Red Cell Distribution Width 16.9 H 11.8-14.3 % Platelet Count 239 140-450 10^3/uL Mean Platelet Volume 7.0 6.9-10.8 fL Neutrophils (%) (Auto) 37.0-80.0 % Lymphocytes (%) (Auto) 10.0-50.0 % Monocytes (%) (Auto) 0.0-12.0 % Basophils (%) (Auto) 0.0-2.0 % Neutrophils # (Auto) 1.6-8.6 10 ^3/uL Lymphocytes # (Auto) 0.4-5.4 10 ^3/uL Monocytes # (Auto) 0-1.3 10 ^3/uL Differential Total Cells Counted 100.0 100 Neutrophils % (Manual) 53 37.0-80.0 Band Neutrophils % (Manual) 0 Lymphocytes % (Manual) 30 10.0-50.0 Monocytes % (Manual) 14 H 0-12 Eosinophils % (Manual) 3 0-7 Basophils % (Manual) 0 0.0-2.0 Metamyelocytes % (manual) 0 Myelocytes % (Manual) 0 Promyelocytes % (Manual) 0 Blast Cells % (Manual) 0 Reactive Lymphocytes 0 Platelet Estimate Adequate Sodium Level 132 L 136-145 mmol/L Potassium Level 6.1 *H 3.5-5.1 mmol/L Chloride Level 97 L 98-107 mmol/L Carbon Dioxide Level 23 20-31 mmol/L Anion Gap 12 5-15 Blood Urea Nitrogen 52 #H 9-23 mg/dL Creatinine 8.70 H 0.700-1.30 mg/dL Glomerular Filtration Rate Calc 6 >90 mL/min BUN/Creatinine Ratio 6.0 L 10.0-20.0 Serum Glucose 113 H 74-106 mg/dL Calcium Level 9.9 8.7-10.4 mg/dL Iron Level 38 L 65-175 ug/dL Total Iron Binding Capacity 196 L 250-425 ug/dL Percent Iron Saturation 19.4 L 20-55 % Ferritin 1012.9 H 22-322 ng/mL Total Bilirubin 0.2 0.2-1.0 mg/dL Aspartate Amino Transferase (AST) 15 13-40 U/L Alanine Aminotransferase (ALT) 12 7-40 U/L Alkaline Phosphatase 104 46-116 U/L Total Protein 6.9 5.7-8.2 g/dL Albumin 4.3 3.2-4.8 g/dL Urine Color Light-yellow Yellow Urine Clarity Clear Clear Urine pH 8.5 5.0-9.0 Urine Specific [place] 1.012 1.001-1.035 Urine Protein 3+ H Negative Urine Ketones Negative Negative Urine Blood Negative Negative /uL Urine Nitrite Negative Negative Urine Bilirubin Negative Negative Urine Urobilinogen Normal Negative mg/dL Urine Leukocyte Esterase Trace Negative /uL Urine RBC 2 0 - 3 /hpf Urine Microscopic WBC 10 H 0-3 /HPF Urine Squamous Epithelial Cells Few <5 /hpf Urine Bacteria None seen None Seen /hpf Urine Glucose 2+ H Normal mg/dL Troponin I High Sensitivity 21 </=54 ng/L B-Type Natriuretic Peptide 1793.19 0-100 pg/mL Plan/Recommendation ASSESSMENT AND PLAN: ID Problem List: - Prevertebral abscess - Lumbar osteomyelitis/discitis - Bilateral lower extremity weakness - ESRD on dialysis - Seizure disorder - Hypertension COPD - Uncontrolled diabetes mellitus - Coronary artery disease, status post CABG and PTCA - History of pneumonia - History of buttock abscess with MRSA and E. coli infections Assessment This is a 59-year-old male with a past medical history of end-stage renal disease on dialysis, seizure disorder, hypertension, COPD, uncontrolled diabetes mellitus, and coronary artery disease status post CABG and PTCA, who presents with acute chest pain, shortness of breath, bilateral leg pain, inability to walk, and leg weakness. His symptoms have been worsening over the last several months, with health declining since February, necessitating the use of a walker for assistance. He was recently seen at an outside facility two days ago for unclear reasons; prior to this, he had pneumonia. He reports no current shortness of breath, dizziness, chest pain, fevers, or chills. He endorses weight loss and ongoing back pain in the lumbar region. Physical examination is notable for 2/5 strength in the bilateral lower extremities with full sensation, and spinal tenderness in the lumbar region. Laboratory studies reveal WBC 4.7, hemoglobin 10.2, platelet count 238, BUN 39, creatinine 7.2, glucose 126, BNP 1793, troponin 3.19. Chest X-ray shows opacities/infiltrates in both lung bases greater on the left side, markedly improved compared to prior thoracic imaging. MRI of the lumbar spine demonstrates findings most compatible with osteomyelitis/discitis with anterior vertebral abscess. No epidural abscess identified. Grade 1 anterior listhesis of L5 on S1 due to bilateral L5 pars defects. Multilevel degenerative disc disease with posterior facet arthropathy with evidence of nerve impingement at L4-L5 and L5-S1 levels. Plan: - Infectious Disease: - Initiate broad-spectrum antibiotics covering likely organisms, including MRSA and E. coli, pending culture results. vancomycin and ceftriaxone 2gq 12hrs. - Obtain blood cultures and inflammatory markers - check CT pelvis for ongoing gluteal abscess and CT chest to evaluate for empyema - check tte to evaluate for endocarditis - Neurosurgery Consult: - Evaluate for possible surgical intervention for vertebral abscess and spinal instability.--> defer to dr hodge's who is recommending medical conservative management with IV abx. - Renal: - Continue hemodialysis as scheduled. - Monitor renal function and electrolytes closely. - Neurology: - Monitor for signs of neurological deterioration. - Endocrinology: - Optimize glycemic control for uncontrolled diabetes mellitus. - Pulmonary: - Monitor respiratory status given history of COPD and recent pneumonia. - Provide smoking cessation counseling. - Cardiology: - Monitor cardiac status given elevated BNP and troponin levels. - Consider further cardiac evaluation to rule out acute coronary syndrome. - Physical Therapy: - Assist with mobility and strengthening exercises as tolerated. - Nutrition: - Assess nutritional status; provide dietary support to address weight loss. Isolation Precautions: Standard Assessment and plan were discussed with the patient as written above. Plan is subject to change pending incorporation of new incoming information/diagnostics. Updates may be added as addendum at the bottom (OR TOP) of this note. Thank you for the interesting consult. We will continue to follow. Please contact us for any questions or concerns. History: The patient's chart and medications were reviewed in detail, and the patient was seen and examined. History obtained from: Patient The patient is a 59-year-old male with a past medical history of end-stage renal disease on dialysis, seizure disorder, hypertension, COPD, uncontrolled diabetes mellitus, and coronary artery disease status post CABG and PTCA, who presents with acute chest pain, shortness of breath, bilateral leg pain, inability to w alk, and leg weakness. His symptoms have been worsening over the last several months. Since February, his health has declined, and he requires a walker for assistance. He was recently evaluated at an outside facility two days ago for unclear reasons; ismaelo r to this, he had pneumonia. He denies current shortness of breath, dizziness, chest pain, fevers, or chills. He reports weight loss and ongoing back pain in the lumbar region. Review of Systems: A complete 10-system review of systems was completed and n egative except as noted in the HPI or here. ROS: - CONSTITUTIONAL: Reports weight loss. Denies fever and chills. - HEENT: Denies changes in vision and hearing. - RESPIRATORY: Denies current shortness of breath and cough. - CV: Denies palpitations and chest pain. - GI: Denies abdominal pain, nausea, vomiting, and diarrhea. - : Reports decreased urine output. - MSK: Reports back pain and lower extremity weakness. Denies joint pain. - SKIN: Denies rash and pruritus. - NEUROLOGICAL: Denies dizziness, headache, and syncope. - PSYCHIATRIC: Denies recent changes in mood. Denies anxiety and depression. Past Medical History: - End-stage renal disease on dialysis - Seizure disorder - Hypertension - Chronic obstructive pulmonary disease - Uncontrolled diabetes mellitus - Coronary artery disease, status post CABG and PTCA - Pneumonia Past Surgical History: - Right buttock abscess debridement (February) - Appendectomy - Coronary artery bypass grafting - Cholecystectomy - Percutaneous transluminal coronary angioplasty Home Medications: Medication | Sig - | Aspirin | As prescribed Clopidogrel (Plavix) | As prescribed Furosemide (Lasix) | As prescribed Hydralazine | As prescribed Albuterol (Proventil) inhaler | As needed Amlodipine | As prescribed Atorvastatin | As prescribed Hydrocodone-acetaminophen ([place]) | As needed for pain Sevelamer | As prescribed Allergies: - Penicillin (reaction unclear) - Tetanus vaccine (reaction unclear) Family History: - No notable family history reported. Social History: - Marital status: Not specified - Alcohol use: Occasional - Tobacco use: Smokes cigarettes; currently one pack per day, previously 56 packs per day - Illicit drug use: Denies Objective: Vital Signs on Arrival: - Temp: 97.9 F - BP: 118/84 mmHg - Pulse: 84 bpm - Resp: 16 breaths per minute - SpO?: 98% on room air Most Recent Vital Signs: [Update as appropriate] Admission Weight: - Weight: [Not specified] - BMI: [Not specified] Physical Exam: General: NAD Neck: Supple. No masses. HEENT: PERRL. Normal lids and conjunctiva. Moist mucous membranes. Oropharynx without lesions, exudates, or excessive erythema. Normal appearance of the external aspects of the nose and ears. Heart: Regular rhythm, normal rate. No murmur. No lower extremity edema. Lungs: Normal respiratory effort. Clear to auscultation bilaterally. No wheezes. No crackles. Abdomen: Soft. Non-tender. Non-distended. No masses or abdominal hernia. MSK: - Strength: 2/5 strength in bilateral lower extremities. - Sensation: Intact to soft touch in all four limbs. - Spinal tenderness noted in the lumbar region. - No digital cyanosis. Normal strength and tone in upper extremities. Skin: Warm and dry, no rashes. Neuro: Alert. No facial droop or slurred speech. Extraocular movements intact. Psych: Appropriate mood. Full affect. Oriented to person, place, time, and situation. Lines: - Active Lines: - Peripheral IV line in place. Diagnostic Studies: Available diagnostic studies were reviewed personally. Significant relevant results and findings are outlined below or addressed in the Assessment and Plan above. Pertinent Imaging: Chest X-ray: - Impression: - Opacities/infiltrates in both lung bases greater on the left side, markedly improved compared to prior imaging. MRI Lumbar Spine: - Impression: - Findings most compatible with osteomyelitis/discitis with anterior vertebral abscess. - No epidural abscess identified. - Grade 1 anterior listhesis of L5 on S1 due to bilateral L5 pars defects. - Multilevel degenerative disc disease with posterior facet arthropathy with evidence of nerve impingement at L4-L5 and L5-S1 levels. Laboratory Data: - WBC: 4.7 x10/?L - Hemoglobin: 10.2 g/dL - Platelet count: 238 x10/?L - BUN: 39 mg/dL - Creatinine: 7.2 mg/dL - Glucose: 126 mg/dL - BNP: 1793 pg/mL - Troponin: 3.19 ng/mL Plan discussed with: Patient ENDY CAMP MD Apr 18, 2024 21:28"
[2024-04-18] MEDS ORDERED: MEROPENEM 500MG IVPB 50 ML IV SCH (22:00)
[2024-04-19] VITALS (11 sets, daily range): BP systolic 142–188; BP diastolic 67–86; PULSE 78–92; RESP 17–20; TEMP 97.6–98.5; O2SAT 95–100
[2024-04-19] MEDS: SODIUM CHL 0.9% 1000 ML BAG XX ONE (07:00)
[2024-04-19 07:34] LABS: Hematocrit 26.6 % (41.0-53.0); Hemoglobin 8.9 g/dL (13.5-17.5); Mean Corpuscular Hemoglobin 30.8 pg (28.0-32.0); Mean Corpuscular Hgb Conc. 33.6 g/dL (32.0-36.0); Mean Corpuscular Volume 91.8 fL (80.0-100.0); Platelet Count (auto) 180 10^3/uL (140-450); Red Cell Distribution Width 16.6 % (11.8-14.3); White Blood Cell 2.1 10^3/uL (4.4-10.8)
[2024-04-19 07:35] LABS: Basophils % (manual) 0 (0.0-2.0); Blast Cells 0; Metamyelocytes % 0; Myelocytes % 0; Promyelocytes % 0; Reactive Lymphocytes 0
[2024-04-19 07:45] LABS: Alanine Aminotransferase 11 U/L (7-40); Albumin 3.9 g/dL (3.2-4.8); Alkaline Phosphatase 83 U/L (46-116); Anion Gap 12 (5-15); Aspartate Aminotransferase 10 U/L (13-40); Blood Urea Nitrogen 49 mg/dL (9-23); Calcium 9.7 mg/dL (8.7-10.4); Carbon Dioxide 24 mmol/L (20-31); Chloride 98 mmol/L (98-107); Glucose 112 mg/dL (74-106); Magnesium 2.6 mg/dL (1.6-2.6); Potassium 5.1 mmol/L (3.5-5.1); Sodium 134 mmol/L (136-145)
[2024-04-19 07:46] LABS: Bilirubin, Total 0.3 mg/dL (0.2-1.0); Total Protein 6.3 g/dL (5.7-8.2)
[2024-04-19 08:19] LABS: Band Neutrophils % (manual) 1; Eosinophils % (manual) 11 (0-7); Lymphocytes % (manual) 52 (10.0-50.0); Monocytes % (manual) 10 (0-12); Platelet Estimate Adequate
--- NOTE | 2024-04-19 10:59 | DVHPN2 ---
Subjective Complains of back pain and leg pain and weakness No change in his symptoms Changes from previous H/P or p: Changes Eyes: No Pain, No Vision change, No Conjunctivae inflammation, No Eyelid inflammation, No Other, No Redness ENT: No Ear pain, No Ear discharge, No Nose pain, No Nose discharge, No Nose congestion, No Mouth pain, No Mouth swelling, No Throat pain, No Throat swelling, No Other Cardiovascular: No Chest Pain, No Palpitations, No Orthopnea, No Paroxysmal Noc. Dyspnea, No Edema, No Lt Headedness, No Other Respiratory: No Cough, No Dry, No Shortness of breath, No SOB with excertion, No Wheezing, No Hemoptysis, No Pleuritic Pain, No Sputum, No Other Gastrointestinal: No Nausea, No Vomiting, No Abdominal Pain, No Diarrhea, No Constipation, No Melena, No Hematochezia, No Other Genitourinary: No Dysuria, No Frequency, No Incontinence, No Hematuria, No Retention, No Other Musculoskeletal: other (Bilateral leg weakness); No neck pain, No shoulder pain, No arm pain, No back pain, No hand pain; leg pain; No foot pain Skin: No Rash, No Lesions, No Jaundice, No Bruising, No Other Objective Vitals Vital Signs Date Time Temp Pulse Resp B/P (MAP) Pulse Ox O2 Delivery O2 Flow Rate FiO2 04/19/24 10:18 95 Room Air* 0 21 04/19/24 09:00 97.7 87 17 175/75 (108) 97.7 Intake/Output Intake and Output 04/19/24 07:00 Intake Total 1700 ml Output Total 850 ml Balance 850 ml Intake Oral 1700 ml Output Urine Total 850 ml General Appearance: Alert, Oriented X3, Cooperative Lungs: Clear to auscultation, Normal air movement Cardiovascular: Regular rate, Normal S1 Abdomen: Normal bowel sounds, Soft Extremities: No edema Medications Current Medications Medications Dose Ordered Sig/Gerard Route Start Time Stop Time Status Last Admin Dose Admin Aspirin 81 mg DAILY PO 04/17/24 10:00 04/18/24 08:38 81 MG Clopidogrel Bisulfate 75 mg DAILY PO 04/17/24 10:00 04/18/24 08:38 75 MG Furosemide 40 mg DAILY IV 04/17/24 10:00 04/18/24 10:00 40 MG Hydralazine HCl 10 mg Q6HP PRN IV 04/16/24 14:00 04/19/24 04:45 10 MG Carvedilol 12.5 mg Q12HR PO 04/16/24 22:00 04/18/24 22:05 12.5 MG Amlodipine Besylate 5 mg DAILY PO 04/17/24 10:00 04/18/24 08:40 5 MG Atorvastatin Calcium 20 mg HS PO 04/16/24 22:00 04/18/24 22:05 20 MG Albuterol 2.5 mg Q4HPRN PRN NEB 04/16/24 14:00 Cancel Ipratropium [place] 0.5 mg Q4HPRN PRN NEB 04/16/24 14:00 Cancel Diagnostic Test (Pha) 1 strip ACHS 04/16/24 17:00 04/19/24 06:26 1 STRIP Insulin Human Regular ACHS SC 04/16/24 17:00 04/18/24 22:03 2 UNITS Dextrose 50 ml UD PRN IV 04/16/24 14:00 Sodium Chloride 10 ml Q8HR IV 04/16/24 14:00 04/19/24 06:34 10 ML Acetaminophen/ Hydrocodone Bitart 1 tab Q4HP PRN PO 04/16/24 14:00 04/19/24 10:12 1 TAB Ondansetron HCl 4 mg Q4HP PRN IV 04/16/24 14:00 Docusate Sodium 100 mg BIDPRN PRN PO 04/16/24 14:00 Acetaminophen 650 mg Q6HP PRN PO 04/16/24 14:00 Sevelamer HCl 800 mg TIDWM PO 04/16/24 18:00 04/19/24 07:56 800 MG Multivit/Ca Carb/ B Cmplx/FA/Prenat 1 tab DAILY PO 04/17/24 10:00 04/18/24 08:38 1 TAB Nitroglycerin 0.4 mg Q5MINP PRN SL 04/16/24 16:30 Morphine Sulfate 2 mg Q30M PRN IV 04/16/24 16:30 Morphine Sulfate 2 mg Q4HPRN PRN IV 04/17/24 12:00 04/19/24 06:34 2 MG Meropenem 50 ml @ 17 mls/hr HS IV 04/18/24 22:00 Cancel Daptomycin / Sodium Chloride 50 ml @ 100 mls/hr TUTHSA IV 04/19/24 21:00 UNV Vancomycin HCl 0 ml @ 0 mls/hr UD IV 04/18/24 21:30 Laboratory Results Laboratory Tests 04/19/24 06:23 Chemistry Test 04/19/24 06:23 Albumin 3.9 g/dL (3.2-4.8) Calcium Level 9.7 mg/dL (8.7-10.4) Magnesium Level 2.6 mg/dL (1.6-2.6) Total Protein 6.3 g/dL (5.7-8.2) LFT Test 04/19/24 06:23 Alanine Aminotransferase (ALT) 11 U/L (7-40) Alkaline Phosphatase 83 U/L (46-116) Aspartate Amino Transferase (AST) 10 U/L (13-40) L Total Bilirubin 0.3 mg/dL (0.2-1.0) Urinalysis Test 04/16/24 03:30 Urine Color Light-yellow (Yellow) Urine Clarity Clear (Clear) Urine pH 8.5 (5.0-9.0) Urine Specific [place] 1.012 (1.001-1.035) Urine Protein 3+ (Negative) H Urine Ketones Negative (Negative) Urine Blood Negative /uL (Negative) Urine Nitrite Negative (Negative) Urine Bilirubin Negative (Negative) Urine Urobilinogen Normal mg/dL (Negative) Urine Leukocyte Esterase Trace /uL (Negative) Urine RBC 2 /hpf (0 - 3) Urine Microscopic WBC 10 /HPF (0-3) H Urine Squamous Epithelial Cells Few /hpf (<5) Urine Bacteria None seen /hpf (None Seen) Urine Glucose 2+ mg/dL (Normal) H Assessment/Plan Assessment/Plan Intractable lower back pain Hyperkalemia End-stage renal disease on hemodialysis Generalized weakness Possible underlying pneumonia Chronic anemia of chronic kidney disease Chest pain most likely noncardiac Coronary artery disease status post PTCA x6 on aspirin and Plavix Acute on chronic heart failure with reduced ejection fraction last ejection fraction 35% Obesity Tobacco use Type 2 diabetes Dyslipidemia Hypertension Plan Get a CT scan of the lumbar spine to rule out abscess since the patient says he was diagnosed with an abscess lately and was given oral Cipro from [facility] Hemodialysis to be done today Nephrology consult Cardiology consult Pain management with morphine and Linn as needed Physical therapy evaluation Full code Discussed with the the patient and with his over the phone Advance directives discussed for 20 minutes 04/18/2024: Lumbar spine L4-L5 diskitis with anterior prevertebral abscess Degenerative disc disease of the lumbar spine End-stage renal disease Hyperkalemia Plan: Start broad-spectrum antibiotics with meropenem and vancomycin Infectious Disease consultation Spinal surgery consultation Hemodialysis per nephrology Repeat the labs Monitor the patient closely 04/19/2024: Continue IV antibiotics ID consult Spinal surgery recommended conservative treatment with IV antibiotics If the patient will need only IV vancomycin then he can get it at the dialysis Treatment plan discussed with the patient and his over the phone He is complaining of more pain in his back and not relieved by the current regimen and therefore we will increase morphine to 4 mg IV every 4 hours p.r.n. and increase the Linn to 2 tablets q.6 hours p.r.n. The rest of the management will depend on the hospital course Hemodialysis per nephrology Plan discussed with: Patient, Spouse My Orders Orders - SADAF SANTANA MD Procedure Category Date Status Time * Infectious [place]- CONS 04/18/24 Transmitted Oleg Cronin 14:11 Vancomycin Per SEAN 04/18/24 In Process Pharmacy [facility] 14:50 Date of Service: Apr 19, 2024 Billing Provider: SADAF SANTANA MD Common Visit Codes: [id number] INP/OBS CARE(HIGH) SADAF SANTANA MD Apr 19, 2024 10:59
--- NOTE | 2024-04-19 12:08 | DVHPN2 ---
Consult Progress Note Date Seen: Apr 19, 2024 Subjective Patient reports: Other (not having any pain , no fevers or chills , no chest pain or SOB , has crackles on the left lung base and spinal tenderness on the L- 4 region of his back ) Objective vital signs Vital Sign Date Time Temp Pulse Resp B/P (MAP) Pulse Ox O2 Delivery O2 Flow Rate FiO2 04/19/24 10:18 95 Room Air* 0 21 04/19/24 09:00 97.7 87 17 175/75 (108) 97.7 Total Intake and Output 04/18/24 04/18/24 04/19/24 15:00 23:00 07:00 Intake Total 800 ml 900 ml Output Total 450 ml 400 ml Balance 350 ml 500 ml medications Current Medications Medications Dose Ordered Sig/Gerard Route Start Time Stop Time Status Last Admin Dose Admin Aspirin 81 mg DAILY PO 04/17/24 10:00 04/18/24 08:38 81 MG Clopidogrel Bisulfate 75 mg DAILY PO 04/17/24 10:00 04/18/24 08:38 75 MG Furosemide 40 mg DAILY IV 04/17/24 10:00 04/18/24 10:00 40 MG Hydralazine HCl 10 mg Q6HP PRN IV 04/16/24 14:00 04/19/24 04:45 10 MG Carvedilol 12.5 mg Q12HR PO 04/16/24 22:00 04/18/24 22:05 12.5 MG Amlodipine Besylate 5 mg DAILY PO 04/17/24 10:00 04/18/24 08:40 5 MG Atorvastatin Calcium 20 mg HS PO 04/16/24 22:00 04/18/24 22:05 20 MG Albuterol 2.5 mg Q4HPRN PRN NEB 04/16/24 14:00 Cancel Ipratropium [place] 0.5 mg Q4HPRN PRN NEB 04/16/24 14:00 Cancel Diagnostic Test (Pha) 1 strip ACHS 04/16/24 17:00 04/19/24 06:26 1 STRIP Insulin Human Regular ACHS SC 04/16/24 17:00 04/18/24 22:03 2 UNITS Dextrose 50 ml UD PRN IV 04/16/24 14:00 Sodium Chloride 10 ml Q8HR IV 04/16/24 14:00 04/19/24 06:34 10 ML Ondansetron HCl 4 mg Q4HP PRN IV 04/16/24 14:00 Docusate Sodium 100 mg BIDPRN PRN PO 04/16/24 14:00 Acetaminophen 650 mg Q6HP PRN PO 04/16/24 14:00 Sevelamer HCl 800 mg TIDWM PO 04/16/24 18:00 04/19/24 07:56 800 MG Multivit/Ca Carb/ B Cmplx/FA/Prenat 1 tab DAILY PO 04/17/24 10:00 04/18/24 08:38 1 TAB Nitroglycerin 0.4 mg Q5MINP PRN SL 04/16/24 16:30 Morphine Sulfate 2 mg Q30M PRN IV 04/16/24 16:30 Meropenem 50 ml @ 17 mls/hr HS IV 04/18/24 22:00 Cancel Daptomycin / Sodium Chloride 50 ml @ 100 mls/hr TUTHSA IV 04/19/24 21:00 UNV Vancomycin HCl 0 ml @ 0 mls/hr UD IV 04/18/24 21:30 Acetaminophen/ Hydrocodone Bitart 2 tab Q6HP PRN PO 04/19/24 11:00 Morphine Sulfate 4 mg Q4HPRN PRN IV 04/19/24 11:00 Physical Exam: General: NAD Neck: Supple. No masses. HEENT: PERRL. Normal lids and conjunctiva. Moist mucous membranes. Oropharynx without lesions, exudates, or excessive erythema. Normal appearance of the external aspects of the nose and ears. Heart: Regular rhythm, normal rate. No murmur. No lower extremity edema. Lungs: Normal respiratory effort. Clear to auscultation bilaterally. No wheezes. No crackles. Abdomen: Soft. Non-tender. Non-distended. No masses or abdominal hernia. MSK: - Strength: 2/5 strength in bilateral lower extremities. - Sensation: Intact to soft touch in all four limbs. - Spinal tenderness noted in the lumbar region. - No digital cyanosis. Normal strength and tone in upper extremities. Skin: Warm and dry, no rashes. Neuro: Alert. No facial droop or slurred speech. Extraocular movements intact. Psych: Appropriate mood. Full affect. Oriented to person, place, time, and situation. laboratory and microbiology Laboratory Tests 04/19/24 06:23 Test 04/19/24 06:23 Range/Units Serum Glucose 112 H 74-106 mg/dL Problem List/Assessment/Plan Problems(with codes): (1) Chronic back pain (2) Shortness of breath (3) ESRD (end stage renal disease) (4) Bilateral lower extremity pain (5) Chest pain (6) Inability to walk (7) Bilateral leg weakness Problem List/Assessment/Plan ID Problem List: - Prevertebral abscess - Lumbar osteomyelitis/discitis - Bilateral lower extremity weakness - ESRD on dialysis - Seizure disorder - Hypertension COPD - Uncontrolled diabetes mellitus - Coronary artery disease, status post CABG and PTCA - History of pneumonia - History of buttock abscess with MRSA and E. coli infections Assessment This is a 59-year-old male with a past medical history of end-stage renal disease on dialysis, seizure disorder, hypertension, COPD, uncontrolled diabetes mellitus, and coronary artery disease status post CABG and PTCA, who presents with acute chest pain, shortness of breath, bilateral leg pain, inability to walk, and leg weakness. His symptoms have been worsening over the last several months, with health declining since February, necessitating the use of a walker for assistance. He was recently seen at an outside facility two days ago for unclear reasons; prior to this, he had pneumonia. He reports no current shortness of breath, dizziness, chest pain, fevers, or chills. He endorses weight loss and ongoing back pain in the lumbar region. Physical examination is notable for 2/5 strength in the bilateral lower extremities with full sensation, and spinal tenderness in the lumbar region. Laboratory studies reveal WBC 4.7, hemoglobin 10.2, platelet count 238, BUN 39, creatinine 7.2, glucose 126, BNP 1793, troponin 3.19. Chest X-ray shows opacities/infiltrates in both lung bases greater on the left side, markedly improved compared to prior thoracic imaging. MRI of the lumbar spine demonstrates findings most compatible with osteomyelitis/discitis with anterior vertebral abscess. No epidural abscess identified. Grade 1 anterior listhesis of L5 on S1 due to bilateral L5 pars defects. Multilevel degenerative disc disease with posterior facet arthropathy with evidence of nerve impingement at L4-L5 and L5-S1 levels. 04/19: appears to be clinically asymptomatic with exception of lower extremity weakness Plan: - Infectious Disease: - Initiate broad-spectrum antibiotics covering likely organisms, including MRSA and E. coli, pending culture results. vancomycin and ceftriaxone 2gq 12hrs. - Obtain blood cultures and inflammatory markers - check CT pelvis for ongoing gluteal abscess and CT chest to evaluate for empyema - check tte to evaluate for endocarditis - Neurosurgery Consult: - Evaluate for possible surgical intervention for vertebral abscess and spinal instability.--> defer to dr hodge's who is recommending medical conservative management with IV abx. - Renal: - Continue hemodialysis as scheduled. - Monitor renal function and electrolytes closely. - Neurology: - Monitor for signs of neurological deterioration. - Endocrinology: - Optimize glycemic control for uncontrolled diabetes mellitus. - Pulmonary: - Monitor respiratory status given history of COPD and recent pneumonia. - Provide smoking cessation counseling. - Cardiology: - Monitor cardiac status given elevated BNP and troponin levels. - Consider further cardiac evaluation to rule out acute coronary syndrome. - Physical Therapy: - Assist with mobility and strengthening exercises as tolerated. - Nutrition: - Assess nutritional status; provide dietary support to address weight loss. Isolation Precautions: Standard Plan discussed with: ENDY Smith MD Apr 19, 2024 12:08
--- NOTE | 2024-04-19 12:31 | DVHPN2 ---
Progress Note - Dictate Date Seen: Apr 19, 2024 Has the PT tested + for MRSA If YES, has PT been informed?: No Medical Necessity Reason Pt with a Central, PICC or Fol: No Subjective Patient is undergoing hemodialysis patient is asymptomatic and no acute events reported except for his back pain. vital signs Vital Sign Date Time Temp Pulse Resp B/P (MAP) Pulse Ox O2 Delivery O2 Flow Rate FiO2 04/19/24 10:18 95 Room Air* 0 21 04/19/24 09:00 97.7 87 17 175/75 (108) 97.7 Total Intake and Output 04/18/24 04/18/24 04/19/24 15:00 23:00 07:00 Intake Total 800 ml 900 ml Output Total 450 ml 400 ml Balance 350 ml 500 ml medications Current Medications Medications Dose Ordered Sig/Gerard Route Start Time Stop Time Status Last Admin Dose Admin Aspirin 81 mg DAILY PO 04/17/24 10:00 04/18/24 08:38 81 MG Clopidogrel Bisulfate 75 mg DAILY PO 04/17/24 10:00 04/18/24 08:38 75 MG Furosemide 40 mg DAILY IV 04/17/24 10:00 04/18/24 10:00 40 MG Hydralazine HCl 10 mg Q6HP PRN IV 04/16/24 14:00 04/19/24 04:45 10 MG Carvedilol 12.5 mg Q12HR PO 04/16/24 22:00 04/18/24 22:05 12.5 MG Amlodipine Besylate 5 mg DAILY PO 04/17/24 10:00 04/18/24 08:40 5 MG Atorvastatin Calcium 20 mg HS PO 04/16/24 22:00 04/18/24 22:05 20 MG Albuterol 2.5 mg Q4HPRN PRN NEB 04/16/24 14:00 Cancel Ipratropium [place] 0.5 mg Q4HPRN PRN NEB 04/16/24 14:00 Cancel Diagnostic Test (Pha) 1 strip ACHS 04/16/24 17:00 04/19/24 12:16 1 STRIP Insulin Human Regular ACHS SC 04/16/24 17:00 04/18/24 22:03 2 UNITS Dextrose 50 ml UD PRN IV 04/16/24 14:00 Sodium Chloride 10 ml Q8HR IV 04/16/24 14:00 04/19/24 06:34 10 ML Ondansetron HCl 4 mg Q4HP PRN IV 04/16/24 14:00 Docusate Sodium 100 mg BIDPRN PRN PO 04/16/24 14:00 Acetaminophen 650 mg Q6HP PRN PO 04/16/24 14:00 Sevelamer HCl 800 mg TIDWM PO 04/16/24 18:00 04/19/24 07:56 800 MG Multivit/Ca Carb/ B Cmplx/FA/Prenat 1 tab DAILY PO 04/17/24 10:00 04/18/24 08:38 1 TAB Nitroglycerin 0.4 mg Q5MINP PRN SL 04/16/24 16:30 Morphine Sulfate 2 mg Q30M PRN IV 04/16/24 16:30 Meropenem 50 ml @ 17 mls/hr HS IV 04/18/24 22:00 Cancel Daptomycin / Sodium Chloride 50 ml @ 100 mls/hr TUTHSA IV 04/19/24 21:00 UNV Vancomycin HCl 0 ml @ 0 mls/hr UD IV 04/18/24 21:30 Acetaminophen/ Hydrocodone Bitart 2 tab Q6HP PRN PO 04/19/24 11:00 Morphine Sulfate 4 mg Q4HPRN PRN IV 04/19/24 11:00 objective HEENT: No evidence of JVD, no oral ulcers. Pulmonary: Lungs are clear on auscultation bilaterally Cardiovascular S1-S2, no S3 or S4 Abdomen: Bowel sounds positive, soft no rebound tenderness Skin: No rash Neurological: Alert, oriented, no focal weakness Dialysis access move with no complications laboratory and microbiology Laboratory Tests 04/19/24 06:23 Test 04/19/24 06:23 Range/Units Serum Glucose 112 H 74-106 mg/dL Assessment/Plan Assessment: 1. End-stage renal disease on hemodialysis 2. Chest pain 3. Pneumonia 4. Hypertension 5. L4-L5 spondylodiscitis an anterior prevertebral abscess. 6. Anemia 7. CHF 8. Diabetes type 2 9. Intractable back pain 10. CAD status post multiple stentings Plan: Hemodialysis today and TTS [place] every other day on non dialysis days Spine surgeon evaluation appreciated Continue antibiotics renally dose for GFR less than 10 mL per minute Cardiology consult Fluid restriction less than 1 L per day Resume antihypertensive meds, phosphate binders Kody for goal hemoglobin 10 to 11 grams/deciliter Would recommend tunneled central line for long-term IV antibiotics as opposed to PICC line. Thank you very much for allowing us to participate in the care of this patient Plan discussed with: Patient TOMÁS RODARTE MD Apr 19, 2024 12:31
[2024-04-19] MEDS: MORPHINE SULFATE INJ 2 MG/ml SYRG IV PRN (14:22)
[2024-04-19] MEDS: DOCUSATE SOD 100 MG CAP PO PRN (16:16)
[2024-04-19] MEDS: HYDROcodone-ACET 5/325MG TAB PO PRN (16:18)
[2024-04-19] MEDS: ALBUTEROL SULF 2.5 MG/0.5ML(0.5%) NEB SOLN NEB PRN (20:32)
[2024-04-19] MEDS: IPRATROPIUM BROM 0.5 MG/2.5ML INH SOL NEB PRN (20:32)
[2024-04-19] MEDS ORDERED: DAPTOmycin 0 MG in SODIUM CHL 0.9% 50 ML IV SCH (21:00)
[2024-04-19] MEDS: EPOETIN ALFA-EPBX 10,000 UNIT/1ML VIAL SC ONE (21:17)
[2024-04-19] MEDS: cefTRIAXone 2GM/50ML D5W 50 ML IV SCH (21:28)
[2024-04-20] VITALS (14 sets, daily range): BP systolic 145–183; BP diastolic 58–88; PULSE 83–98; RESP 15–21; TEMP 97.5–98.7; O2SAT 93–100
[2024-04-20] MEDS: ONDANSETRON HCL 4 MG/2 ML VIAL IV PRN (07:50)
[2024-04-20] MEDS: cefTRIAXone 2GM/50ML D5W 50 ML IV SCH (09:49)
--- NOTE | 2024-04-20 10:16 | DVH ---
Procedure: CT CHST AB PEL WO CON-NO IV/ORAL 04/20/2024 09:17 AM Indication: EMPYEMA, PNA, GLUTEAL ABSCESS Comparison Study: Lumbar spine MRI dated 04/18/2024 Technique: Axial images were obtained and reformatted in coronal and sagittal planes. All CT scans at this medical facility are performed using dose modulation techniques as appropriate t o a performed exam including the following: Automated exposure control was utilized; adjustment of th e MA and/or KV according to patient size; and use of iterative reconstruction technique. CT Dose: CTDI volume is 15.03 mGy. Dose-length product is 1037.81 mGy*cm FINDINGS: Lower neck: Unremarkable. Cardiomediastinal: The heart is normal in size. Coronary artery calcification / stenting noted. Mild atherosclerotic calcification of the aortic arch. Aorta is normal in caliber. No mediastinal lymphad enopathy. Lungs: No focal pulmonary opacity. No pleural effusion. No pneumothorax. Hepatobiliary: Gallbladder is surgically absent. Spleen: Unremarkable. Pancreas: Unremarkable. Adrenal Glands: Unremarkable. tract: The kidneys are normal in size bilaterally without hydronephrosis or nephrolithiasis. The urinary bladder is unremarkable. GI tract: The stomach is grossly normal in appearance. No evidence of small bowel obstruction. Moder ate fecal retention throughout the large bowel and rectum The appendix is not visualized. No inflam matory change is noted in the right lower quadrant. Lymphatics: No mesenteric, retroperitoneal or periportal lymphadenopathy. Vasculature: The abdominal aorta is normal in caliber. Diffuse calcified plaque formation is noted. A therosclerotic calcification of the bilateral renal arteries and their intrarenal branches noted. Mil d scattered atherosclerotic calcification of the celiac trunk, SMA and UMA noted Pelvic Organs: Unremarkable . Bones/soft tissues: Erosive changes and irregularity of the endplates L4-L5 with surrounding preverte bral soft tissue fullness posterior disc bulge. No gluteal decubitus ulcer, abscess or sacrococcygeal erosion noted. Other: None. IMPRESSION: 1. Reticular opacities in peripheral aspects of the lungs mild superimposed ground-glass opacities th at may represent atypical / viral pneumonia such as COVID-19 or chronic interstitial lung disease. Si milar findings can be seen in the previous radiograph of 02/17/2024. No prior chest CT scan is avail able for comparison. 2. Redemonstration of discitis/osteomyelitis at L4-L5 associated with prevertebral abscess. 3. The visualized upper gluteal region is unremarkable with no evidence for decubitus ulcer, abscess or sacrococcygeal erosion. 4. Moderate fecal retention and mild rectal fecal impaction.
--- NOTE | 2024-04-20 11:31 | DVHPN2 ---
Subjective No new complaints Complains of back pain and weakness He needs IV antibiotics at home for the spinal infection and abscess and since he has dialysis he will need a tunneled central line Changes from previous H/P or p: Changes Eyes: No Pain, No Vision change, No Conjunctivae inflammation, No Eyelid inflammation, No Other, No Redness ENT: No Ear pain, No Ear discharge, No Nose pain, No Nose discharge, No Nose congestion, No Mouth pain, No Mouth swelling, No Throat pain, No Throat swelling, No Other Cardiovascular: No Chest Pain, No Palpitations, No Orthopnea, No Paroxysmal Noc. Dyspnea, No Edema, No Lt Headedness, No Other Respiratory: No Cough, No Dry, No Shortness of breath, No SOB with excertion, No Wheezing, No Hemoptysis, No Pleuritic Pain, No Sputum, No Other Gastrointestinal: No Nausea, No Vomiting, No Abdominal Pain, No Diarrhea, No Constipation, No Melena, No Hematochezia, No Other Genitourinary: No Dysuria, No Frequency, No Incontinence, No Hematuria, No Retention, No Other Musculoskeletal: other (Bilateral leg weakness); No neck pain, No shoulder pain, No arm pain, No back pain, No hand pain; leg pain; No foot pain Skin: No Rash, No Lesions, No Jaundice, No Bruising, No Other Objective Vitals Vital Signs Date Time Temp Pulse Resp B/P (MAP) Pulse Ox O2 Delivery O2 Flow Rate FiO2 04/20/24 10:20 91 15 100 04/20/24 10:12 Room Air 04/20/24 10:12 0 21 04/20/24 09:59 175/81 04/20/24 08:36 97.5 97.5 Intake/Output Intake and Output 04/20/24 07:00 Intake Total 2400 ml Output Total 550 ml Balance 1850 ml Intake Oral 2400 ml Output Urine Total 550 ml # Voids 1 General Appearance: Alert, Oriented X3, Cooperative Lungs: Clear to auscultation, Normal air movement Cardiovascular: Regular rate, Normal S1 Abdomen: Normal bowel sounds, Soft Extremities: No edema Medications Current Medications Medications Dose Ordered Sig/Gerard Route Start Time Stop Time Status Last Admin Dose Admin Aspirin 81 mg DAILY PO 04/17/24 10:00 04/20/24 09:43 81 MG Clopidogrel Bisulfate 75 mg DAILY PO 04/17/24 10:00 04/20/24 09:42 75 MG Furosemide 40 mg DAILY IV 04/17/24 10:00 04/20/24 09:44 40 MG Hydralazine HCl 10 mg Q6HP PRN IV 04/16/24 14:00 04/20/24 05:26 10 MG Carvedilol 12.5 mg Q12HR PO 04/16/24 22:00 04/20/24 09:43 12.5 MG Amlodipine Besylate 5 mg DAILY PO 04/17/24 10:00 04/20/24 09:44 5 MG Atorvastatin Calcium 20 mg HS PO 04/16/24 22:00 04/19/24 21:17 20 MG Albuterol 2.5 mg Q4HPRN PRN NEB 04/16/24 14:00 Cancel Ipratropium [place] 0.5 mg Q4HPRN PRN NEB 04/16/24 14:00 Cancel Diagnostic Test (Pha) 1 strip ACHS 04/16/24 17:00 04/20/24 05:22 1 STRIP Insulin Human Regular ACHS SC 04/16/24 17:00 04/19/24 17:50 3 UNITS Dextrose 50 ml UD PRN IV 04/16/24 14:00 Sodium Chloride 10 ml Q8HR IV 04/16/24 14:00 04/20/24 05:12 10 ML Ondansetron HCl 4 mg Q4HP PRN IV 04/16/24 14:00 04/20/24 07:50 4 MG Docusate Sodium 100 mg BIDPRN PRN PO 04/16/24 14:00 04/19/24 16:16 100 MG Acetaminophen 650 mg Q6HP PRN PO 04/16/24 14:00 Sevelamer HCl 800 mg TIDWM PO 04/16/24 18:00 04/20/24 08:34 800 MG Multivit/Ca Carb/ B Cmplx/FA/Prenat 1 tab DAILY PO 04/17/24 10:00 04/20/24 09:42 1 TAB Nitroglycerin 0.4 mg Q5MINP PRN SL 04/16/24 16:30 Morphine Sulfate 2 mg Q30M PRN IV 04/16/24 16:30 Meropenem 50 ml @ 17 mls/hr HS IV 04/18/24 22:00 Cancel Daptomycin / Sodium Chloride 50 ml @ 100 mls/hr TUTHSA IV 04/19/24 21:00 UNV Vancomycin HCl 0 ml @ 0 mls/hr UD IV 04/18/24 21:30 Acetaminophen/ Hydrocodone Bitart 2 tab Q6HP PRN PO 04/19/24 11:00 04/19/24 21:15 2 TAB Morphine Sulfate 4 mg Q4HPRN PRN IV 04/19/24 11:00 04/20/24 09:59 4 MG Albuterol 2.5 mg Q4HPRN PRN NEB 04/19/24 13:30 04/20/24 10:12 2.5 MG Ipratropium [place] 0.5 mg Q4HPRN PRN NEB 04/19/24 13:30 04/20/24 10:12 0.5 MG Ceftriaxone Sodium/Dextrose 50 ml @ 50 mls/hr Q12HR IV 04/20/24 10:00 04/20/24 09:49 50 MLS/HR Laboratory Results Laboratory Tests 04/19/24 06:23 Urinalysis Test 04/16/24 03:30 Urine Color Light-yellow (Yellow) Urine Clarity Clear (Clear) Urine pH 8.5 (5.0-9.0) Urine Specific [place] 1.012 (1.001-1.035) Urine Protein 3+ (Negative) H Urine Ketones Negative (Negative) Urine Blood Negative /uL (Negative) Urine Nitrite Negative (Negative) Urine Bilirubin Negative (Negative) Urine Urobilinogen Normal mg/dL (Negative) Urine Leukocyte Esterase Trace /uL (Negative) Urine RBC 2 /hpf (0 - 3) Urine Microscopic WBC 10 /HPF (0-3) H Urine Squamous Epithelial Cells Few /hpf (<5) Urine Bacteria None seen /hpf (None Seen) Urine Glucose 2+ mg/dL (Normal) H Assessment/Plan Assessment/Plan Intractable lower back pain Hyperkalemia End-stage renal disease on hemodialysis Generalized weakness Possible underlying pneumonia Chronic anemia of chronic kidney disease Chest pain most likely noncardiac Coronary artery disease status post PTCA x6 on aspirin and Plavix Acute on chronic heart failure with reduced ejection fraction last ejection fraction 35% Obesity Tobacco use Type 2 diabetes Dyslipidemia Hypertension Plan Get a CT scan of the lumbar spine to rule out abscess since the patient says he was diagnosed with an abscess lately and was given oral Cipro from [facility] Hemodialysis to be done today Nephrology consult Cardiology consult Pain management with morphine and [place] as needed Physical therapy evaluation Full code Discussed with the the patient and with his over the phone Advance directives discussed for 20 minutes 04/18/2024: Lumbar spine L4-L5 diskitis with anterior prevertebral abscess Degenerative disc disease of the lumbar spine End-stage renal disease Hyperkalemia Plan: Start broad-spectrum antibiotics with meropenem and vancomycin Infectious Disease consultation Spinal surgery consultation Hemodialysis per nephrology Repeat the labs Monitor the patient closely 04/19/2024: Continue IV antibiotics ID consult Spinal surgery recommended conservative treatment with IV antibiotics If the patient will need only IV vancomycin then he can get it at the dialysis Treatment plan discussed with the patient and his over the phone He is complaining of more pain in his back and not relieved by the current regimen and therefore we will increase morphine to 4 mg IV every 4 hours p.r.n. and increase the [place] to 2 tablets q.6 hours p.r.n. The rest of the management will depend on the hospital course Hemodialysis per nephrology 04/20/2024: Continue IV antibiotics with Rocephin and vancomycin Discussed with ID and Nephrology, since the patient can not have a PICC line, we will do a tunneled central line by IR Patient can then be discharged home on IV vancomycin with dialysis and IV Rocephin daily by home health Continue pain management The rest of the management will depend on the hospital course Plan discussed with: Patient My Orders Orders - SADAF SANTANA MD Procedure Category Date Status Time Albuterol Medneb PHA 04/19/24 In Process (Ventolin Medneb) 13:30 Ipratropium Medneb PHA 04/19/24 In Process (Atrovent Medneb) 13:30 Chst Ab Pel Wo Con-No CT 04/20/24 Resulted Iv/Oral 08:59 * Radiologist Consult CONS 04/20/24 Transmitted 11:27 Date of Service: Apr 20, 2024 Billing Provider: SADAF SANTANA MD Common Visit Codes: [id number] INP/OBS CARE(HIGH) SADAF SANTANA MD Apr 20, 2024 11:31
[2024-04-20 12:13] LABS: INR 1.12 (0.9-1.15); Partial Thromboplastin Time 40.2 SEC (24.5-34.5); Prothrombin Time 11.7 sec (9.3-11.8)
--- NOTE | 2024-04-20 13:37 | DVHPN2 ---
Progress Note - Dictate Date Seen: Apr 20, 2024 Has the PT tested + for MRSA If YES, has PT been informed?: No Medical Necessity Reason Pt with a Central, PICC or Fol: No Subjective Back pain is controlled. vital signs Vital Sign Date Time Temp Pulse Resp B/P (MAP) Pulse Ox O2 Delivery O2 Flow Rate FiO2 04/20/24 13:00 97.7 92 20 183/79 (113) 95 97.7 04/20/24 10:12 Room Air 04/20/24 10:12 0 21 Total Intake and Output 04/19/24 04/19/24 04/20/24 15:00 23:00 07:00 Intake Total 1900 ml 500 ml Output Total 200 ml 350 ml Balance 1700 ml 150 ml medications Current Medications Medications Dose Ordered Sig/Gerard Route Start Time Stop Time Status Last Admin Dose Admin Aspirin 81 mg DAILY PO 04/17/24 10:00 04/20/24 09:43 81 MG Clopidogrel Bisulfate 75 mg DAILY PO 04/17/24 10:00 04/20/24 09:42 75 MG Furosemide 40 mg DAILY IV 04/17/24 10:00 04/20/24 09:44 40 MG Hydralazine HCl 10 mg Q6HP PRN IV 04/16/24 14:00 04/20/24 12:38 10 MG Carvedilol 12.5 mg Q12HR PO 04/16/24 22:00 04/20/24 09:43 12.5 MG Amlodipine Besylate 5 mg DAILY PO 04/17/24 10:00 04/20/24 09:44 5 MG Atorvastatin Calcium 20 mg HS PO 04/16/24 22:00 04/19/24 21:17 20 MG Albuterol 2.5 mg Q4HPRN PRN NEB 04/16/24 14:00 Cancel Ipratropium [place] 0.5 mg Q4HPRN PRN NEB 04/16/24 14:00 Cancel Diagnostic Test (Pha) 1 strip ACHS 04/16/24 17:00 04/20/24 12:42 1 STRIP Insulin Human Regular ACHS SC 04/16/24 17:00 04/19/24 17:50 3 UNITS Dextrose 50 ml UD PRN IV 04/16/24 14:00 Sodium Chloride 10 ml Q8HR IV 04/16/24 14:00 04/20/24 05:12 10 ML Ondansetron HCl 4 mg Q4HP PRN IV 04/16/24 14:00 04/20/24 12:34 4 MG Docusate Sodium 100 mg BIDPRN PRN PO 04/16/24 14:00 04/19/24 16:16 100 MG Acetaminophen 650 mg Q6HP PRN PO 04/16/24 14:00 Sevelamer HCl 800 mg TIDWM PO 04/16/24 18:00 04/20/24 08:34 800 MG Multivit/Ca Carb/ B Cmplx/FA/Prenat 1 tab DAILY PO 04/17/24 10:00 04/20/24 09:42 1 TAB Nitroglycerin 0.4 mg Q5MINP PRN SL 04/16/24 16:30 Morphine Sulfate 2 mg Q30M PRN IV 04/16/24 16:30 Meropenem 50 ml @ 17 mls/hr HS IV 04/18/24 22:00 Cancel Daptomycin / Sodium Chloride 50 ml @ 100 mls/hr TUTHSA IV 04/19/24 21:00 UNV Vancomycin HCl 0 ml @ 0 mls/hr UD IV 04/18/24 21:30 Acetaminophen/ Hydrocodone Bitart 2 tab Q6HP PRN PO 04/19/24 11:00 04/19/24 21:15 2 TAB Morphine Sulfate 4 mg Q4HPRN PRN IV 04/19/24 11:00 04/20/24 09:59 4 MG Albuterol 2.5 mg Q4HPRN PRN NEB 04/19/24 13:30 04/20/24 10:12 2.5 MG Ipratropium [place] 0.5 mg Q4HPRN PRN NEB 04/19/24 13:30 04/20/24 10:12 0.5 MG Ceftriaxone Sodium/Dextrose 50 ml @ 50 mls/hr Q12HR IV 04/20/24 10:00 04/20/24 09:49 50 MLS/HR objective HEENT: No evidence of JVD, no oral ulcers. Pulmonary: Lungs are clear on auscultation bilaterally Cardiovascular S1-S2, no S3 or S4 Abdomen: Bowel sounds positive, soft no rebound tenderness Skin: No rash Neurological: Alert, oriented, no focal weakness Dialysis access move with no complications laboratory and microbiology Laboratory Tests 04/19/24 06:23 Test 04/19/24 06:23 Range/Units Serum Glucose 112 H 74-106 mg/dL Assessment/Plan Assessment: 1. End-stage renal disease on hemodialysis 2. Chest pain 3. Pneumonia 4. Hypertension 5. L4-L5 spondylodiscitis an anterior prevertebral abscess. 6. Anemia 7. CHF 8. Diabetes type 2 9. Intractable back pain 10. CAD status post multiple stentings Plan: Hemodialysis today and TTS [place] every other day on non dialysis days Spine surgeon evaluation appreciated Continue antibiotics renally dose for GFR less than 10 mL per minute Cardiology consult Fluid restriction less than 1 L per day Resume antihypertensive meds, phosphate binders [place] for goal hemoglobin 10 to 11 grams/deciliter Recommend tunneled central line for long-term IV antibiotics as opposed to PICC line. Thank you very much for allowing us to participate in the care of this patient Plan discussed with: Patient LESLY TOMÁS HERZOG MD Apr 20, 2024 13:37
[2024-04-20 20:13] LABS: Erythrocyte Sedimentation Rate 102 mm/hr (0-20)
[2024-04-21] VITALS (14 sets, daily range): BP systolic 146–180; BP diastolic 69–95; PULSE 76–105; RESP 16–19; TEMP 97.7–98.6; O2SAT 93–99
[2024-04-21 06:28] LABS: Red Cell Distribution Width 16.6 % (11.8-14.3)
[2024-04-21 06:30] LABS: Hematocrit 29.4 % (41.0-53.0); Hemoglobin 9.7 g/dL (13.5-17.5); Mean Corpuscular Hemoglobin 30.2 pg (28.0-32.0); Mean Corpuscular Hgb Conc. 32.9 g/dL (32.0-36.0); Mean Corpuscular Volume 91.6 fL (80.0-100.0); Platelet Count (auto) 175 10^3/uL (140-450); Red Blood Cells 3.21 10^6/uL (4.5-5.90)
[2024-04-21 06:50] LABS: Alanine Aminotransferase 11 U/L (7-40); Alkaline Phosphatase 81 U/L (46-116); Anion Gap 10 (5-15); BUN/Creatinine Ratio 5.7 (10.0-20.0); Carbon Dioxide 27 mmol/L (20-31); Glucose 97 mg/dL (74-106); Magnesium 2.4 mg/dL (1.6-2.6)
[2024-04-21 06:51] LABS: Total Protein 6.3 g/dL (5.7-8.2)
[2024-04-21 06:58] LABS: Aspartate Aminotransferase 10 U/L (13-40); Bilirubin, Total 0.3 mg/dL (0.2-1.0); Blood Urea Nitrogen 42 mg/dL (9-23); Chloride 96 mmol/L (98-107); Potassium 5.5 mmol/L (3.5-5.1); Sodium 133 mmol/L (136-145)
[2024-04-21] MEDS: SODIUM CHL 0.9% 1000 ML BAG XX ONE (07:00)
[2024-04-21 07:03] LABS: White Blood Cell 1.7 10^3/uL (4.4-10.8)
[2024-04-21 07:04] LABS: Basophils % (manual) 0 (0.0-2.0); Blast Cells 0; Metamyelocytes % 0; Myelocytes % 0; Promyelocytes % 0; Reactive Lymphocytes 0
[2024-04-21] MEDS: MORPHINE SULFATE INJ 2 MG/ml SYRG IV PRN (09:44)
[2024-04-21 09:51] LABS: Band Neutrophils % (manual) 1; Eosinophils % (manual) 4 (0-7); Lymphocytes % (manual) 59 (10.0-50.0); Monocytes % (manual) 16 (0-12); Platelet Estimate Adequate
--- NOTE | 2024-04-21 11:23 | DVHPN2 ---
Subjective He feels better Less pain in his back Reports nausea and vomiting after taking morphine Changes from previous H/P or p: Changes Eyes: No Pain, No Vision change, No Conjunctivae inflammation, No Eyelid inflammation, No Other, No Redness ENT: No Ear pain, No Ear discharge, No Nose pain, No Nose discharge, No Nose congestion, No Mouth pain, No Mouth swelling, No Throat pain, No Throat swelling, No Other Cardiovascular: No Chest Pain, No Palpitations, No Orthopnea, No Paroxysmal Noc. Dyspnea, No Edema, No Lt Headedness, No Other Respiratory: No Cough, No Dry, No Shortness of breath, No SOB with excertion, No Wheezing, No Hemoptysis, No Pleuritic Pain, No Sputum, No Other Gastrointestinal: No Nausea, No Vomiting, No Abdominal Pain, No Diarrhea, No Constipation, No Melena, No Hematochezia, No Other Genitourinary: No Dysuria, No Frequency, No Incontinence, No Hematuria, No Retention, No Other Musculoskeletal: other (Bilateral leg weakness); No neck pain, No shoulder pain, No arm pain, No back pain, No hand pain; leg pain; No foot pain Skin: No Rash, No Lesions, No Jaundice, No Bruising, No Other Objective Vitals Vital Signs Date Time Temp Pulse Resp B/P (MAP) Pulse Ox O2 Delivery O2 Flow Rate FiO2 04/21/24 09:47 95 18 152/69 04/21/24 08:46 98.0 95 98.0 04/21/24 02:14 Room Air 0.0 04/21/24 02:14 21 Intake/Output Intake and Output 04/21/24 07:00 Intake Total 2650 ml Output Total 700 ml Balance 1950 ml Intake Oral 2600 ml IV Total 50 ml Output Urine Total 700 ml # Voids 2 General Appearance: Alert, Oriented X3, Cooperative Lungs: Clear to auscultation, Normal air movement Cardiovascular: Regular rate, Normal S1 Abdomen: Normal bowel sounds, Soft Extremities: No edema Medications Current Medications Medications Dose Ordered Sig/Gerard Route Start Time Stop Time Status Last Admin Dose Admin Aspirin 81 mg DAILY PO 04/17/24 10:00 04/21/24 09:43 81 MG Clopidogrel Bisulfate 75 mg DAILY PO 04/17/24 10:00 04/21/24 09:46 75 MG Furosemide 40 mg DAILY IV 04/17/24 10:00 04/21/24 09:45 40 MG Hydralazine HCl 10 mg Q6HP PRN IV 04/16/24 14:00 04/20/24 12:38 10 MG Carvedilol 12.5 mg Q12HR PO 04/16/24 22:00 04/20/24 22:32 12.5 MG Amlodipine Besylate 5 mg DAILY PO 04/17/24 10:00 04/20/24 09:44 5 MG Atorvastatin Calcium 20 mg HS PO 04/16/24 22:00 04/20/24 22:32 20 MG Albuterol 2.5 mg Q4HPRN PRN NEB 04/16/24 14:00 Cancel Ipratropium [place] 0.5 mg Q4HPRN PRN NEB 04/16/24 14:00 Cancel Diagnostic Test (Pha) 1 strip ACHS 04/16/24 17:00 04/21/24 06:29 1 STRIP Insulin Human Regular ACHS SC 04/16/24 17:00 04/19/24 17:50 3 UNITS Dextrose 50 ml UD PRN IV 04/16/24 14:00 Sodium Chloride 10 ml Q8HR IV 04/16/24 14:00 04/21/24 05:16 10 ML Ondansetron HCl 4 mg Q4HP PRN IV 04/16/24 14:00 04/20/24 12:34 4 MG Docusate Sodium 100 mg BIDPRN PRN PO 04/16/24 14:00 04/19/24 16:16 100 MG Acetaminophen 650 mg Q6HP PRN PO 04/16/24 14:00 Sevelamer HCl 800 mg TIDWM PO 04/16/24 18:00 04/20/24 08:34 800 MG Multivit/Ca Carb/ B Cmplx/FA/Prenat 1 tab DAILY PO 04/17/24 10:00 04/21/24 09:42 1 TAB Nitroglycerin 0.4 mg Q5MINP PRN SL 04/16/24 16:30 Morphine Sulfate 2 mg Q30M PRN IV 04/16/24 16:30 04/21/24 09:44 2 MG Meropenem 50 ml @ 17 mls/hr HS IV 04/18/24 22:00 Cancel Daptomycin / Sodium Chloride 50 ml @ 100 mls/hr TUTHSA IV 04/19/24 21:00 UNV Vancomycin HCl 0 ml @ 0 mls/hr UD IV 04/18/24 21:30 Acetaminophen/ Hydrocodone Bitart 2 tab Q6HP PRN PO 04/19/24 11:00 04/19/24 21:15 2 TAB Morphine Sulfate 4 mg Q4HPRN PRN IV 04/19/24 11:00 04/21/24 09:47 4 MG Albuterol 2.5 mg Q4HPRN PRN NEB 04/19/24 13:30 04/21/24 02:14 2.5 MG Ipratropium [place] 0.5 mg Q4HPRN PRN NEB 04/19/24 13:30 04/21/24 02:14 0.5 MG Ceftriaxone Sodium/Dextrose 50 ml @ 50 mls/hr Q12HR IV 04/20/24 10:00 04/21/24 09:46 50 MLS/HR Laboratory Results Laboratory Tests 04/21/24 05:40 Chemistry Test 04/21/24 05:40 Albumin 4.0 g/dL (3.2-4.8) Calcium Level 10.0 mg/dL (8.7-10.4) Magnesium Level 2.4 mg/dL (1.6-2.6) Total Protein 6.3 g/dL (5.7-8.2) Coagulation Test 04/20/24 11:48 Prothrombin Time 11.7 sec (9.3-11.8) Prothrombin Time INR 1.12 (0.9-1.15) Activated Partial Thromboplast Time 40.2 SEC (24.5-34.5) H LFT Test 04/21/24 05:40 Alanine Aminotransferase (ALT) 11 U/L (7-40) Alkaline Phosphatase 81 U/L (46-116) Aspartate Amino Transferase (AST) 10 U/L (13-40) L Total Bilirubin 0.3 mg/dL (0.2-1.0) Urinalysis Test 04/16/24 03:30 Urine Color Light-yellow (Yellow) Urine Clarity Clear (Clear) Urine pH 8.5 (5.0-9.0) Urine Specific [place] 1.012 (1.001-1.035) Urine Protein 3+ (Negative) H Urine Ketones Negative (Negative) Urine Blood Negative /uL (Negative) Urine Nitrite Negative (Negative) Urine Bilirubin Negative (Negative) Urine Urobilinogen Normal mg/dL (Negative) Urine Leukocyte Esterase Trace /uL (Negative) Urine RBC 2 /hpf (0 - 3) Urine Microscopic WBC 10 /HPF (0-3) H Urine Squamous Epithelial Cells Few /hpf (<5) Urine Bacteria None seen /hpf (None Seen) Urine Glucose 2+ mg/dL (Normal) H Microbiology Microbiology Date/Time Source Procedure Growth Status 04/19/24 21:32 Nose MRSA Screen - Final Complete 04/19/24 19:31 Blood Blood Culture - Preliminary NO GROWTH AFTER 24 HOURS OF INCUBATION. Resulted Assessment/Plan Assessment/Plan Intractable lower back pain Hyperkalemia End-stage renal disease on hemodialysis Generalized weakness Possible underlying pneumonia Chronic anemia of chronic kidney disease Chest pain most likely noncardiac Coronary artery disease status post PTCA x6 on aspirin and Plavix Acute on chronic heart failure with reduced ejection fraction last ejection fraction 35% Obesity Tobacco use Type 2 diabetes Dyslipidemia Hypertension Plan Get a CT scan of the lumbar spine to rule out abscess since the patient says he was diagnosed with an abscess lately and was given oral Cipro from [facility] Hemodialysis to be done today Nephrology consult Cardiology consult Pain management with morphine and [place] as needed Physical therapy evaluation Full code Discussed with the the patient and with his over the phone Advance directives discussed for 20 minutes 04/18/2024: Lumbar spine L4-L5 diskitis with anterior prevertebral abscess Degenerative disc disease of the lumbar spine End-stage renal disease Hyperkalemia Plan: Start broad-spectrum antibiotics with meropenem and vancomycin Infectious Disease consultation Spinal surgery consultation Hemodialysis per nephrology Repeat the labs Monitor the patient closely 04/19/2024: Continue IV antibiotics ID consult Spinal surgery recommended conservative treatment with IV antibiotics If the patient will need only IV vancomycin then he can get it at the dialysis Treatment plan discussed with the patient and his over the phone He is complaining of more pain in his back and not relieved by the current regimen and therefore we will increase morphine to 4 mg IV every 4 hours p.r.n. and increase the [place] to 2 tablets q.6 hours p.r.n. The rest of the management will depend on the hospital course Hemodialysis per nephrology 04/20/2024: Continue IV antibiotics with Rocephin and vancomycin Discussed with ID and Nephrology, since the patient can not have a PICC line, we will do a tunneled central line by IR Patient can then be discharged home on IV vancomycin with dialysis and IV Rocephin daily by home health Continue pain management The rest of the management will depend on the hospital course 04/21/2024: Continue IV antibiotics Tunneled central line to be done on Tuesday Lower the dose of morphine to minimize the side effects [place] as needed Discharge planning once the central line is done and IV antibiotics are ordered Neutropenia: Place on neutropenic precautions Hyperkalemia: Dialysis per Nephrology Plan discussed with: Patient My Orders Orders - SADAF SANTANA MD Procedure Category Date Status Time * Radiologist Consult CONS 04/20/24 Transmitted 11:27 Date of Service: Apr 21, 2024 Billing Provider: SADAF SANTANA MD Common Visit Codes: [id number] INP/OBS CARE(HIGH) SADAF SANTANA MD Apr 21, 2024 11:23
--- NOTE | 2024-04-21 11:59 | DVHPN2 ---
Consult Progress Note Date Seen: Apr 20, 2024 Subjective Patient reports: Other (underwent dialysis and tolerated it well , has spinal tenderness on the bottom area of his spine , no SOB ) Objective vital signs Vital Sign Date Time Temp Pulse Resp B/P (MAP) Pulse Ox O2 Delivery O2 Flow Rate FiO2 04/21/24 09:47 95 18 152/69 04/21/24 08:46 98.0 95 98.0 04/21/24 02:14 Room Air 0.0 04/21/24 02:14 21 Total Intake and Output 04/20/24 04/20/24 04/21/24 15:00 23:00 07:00 Intake Total 50 ml 1800 ml 800 ml Output Total 400 ml 300 ml Balance 50 ml 1400 ml 500 ml medications Current Medications Medications Dose Ordered Sig/Gerard Route Start Time Stop Time Status Last Admin Dose Admin Aspirin 81 mg DAILY PO 04/17/24 10:00 04/21/24 09:43 81 MG Clopidogrel Bisulfate 75 mg DAILY PO 04/17/24 10:00 04/21/24 09:46 75 MG Furosemide 40 mg DAILY IV 04/17/24 10:00 04/21/24 09:45 40 MG Hydralazine HCl 10 mg Q6HP PRN IV 04/16/24 14:00 04/20/24 12:38 10 MG Carvedilol 12.5 mg Q12HR PO 04/16/24 22:00 04/20/24 22:32 12.5 MG Amlodipine Besylate 5 mg DAILY PO 04/17/24 10:00 04/20/24 09:44 5 MG Atorvastatin Calcium 20 mg HS PO 04/16/24 22:00 04/20/24 22:32 20 MG Albuterol 2.5 mg Q4HPRN PRN NEB 04/16/24 14:00 Cancel Ipratropium [place] 0.5 mg Q4HPRN PRN NEB 04/16/24 14:00 Cancel Diagnostic Test (Pha) 1 strip ACHS 04/16/24 17:00 04/21/24 06:29 1 STRIP Insulin Human Regular ACHS SC 04/16/24 17:00 04/19/24 17:50 3 UNITS Dextrose 50 ml UD PRN IV 04/16/24 14:00 Sodium Chloride 10 ml Q8HR IV 04/16/24 14:00 04/21/24 05:16 10 ML Ondansetron HCl 4 mg Q4HP PRN IV 04/16/24 14:00 04/20/24 12:34 4 MG Docusate Sodium 100 mg BIDPRN PRN PO 04/16/24 14:00 04/19/24 16:16 100 MG Acetaminophen 650 mg Q6HP PRN PO 04/16/24 14:00 Sevelamer HCl 800 mg TIDWM PO 04/16/24 18:00 04/20/24 08:34 800 MG Multivit/Ca Carb/ B Cmplx/FA/Prenat 1 tab DAILY PO 04/17/24 10:00 04/21/24 09:42 1 TAB Nitroglycerin 0.4 mg Q5MINP PRN SL 04/16/24 16:30 Morphine Sulfate 2 mg Q30M PRN IV 04/16/24 16:30 04/21/24 09:44 2 MG Meropenem 50 ml @ 17 mls/hr HS IV 04/18/24 22:00 Cancel Daptomycin / Sodium Chloride 50 ml @ 100 mls/hr TUTHSA IV 04/19/24 21:00 UNV Vancomycin HCl 0 ml @ 0 mls/hr UD IV 04/18/24 21:30 Acetaminophen/ Hydrocodone Bitart 2 tab Q6HP PRN PO 04/19/24 11:00 04/19/24 21:15 2 TAB Albuterol 2.5 mg Q4HPRN PRN NEB 04/19/24 13:30 04/21/24 02:14 2.5 MG Ipratropium [place] 0.5 mg Q4HPRN PRN NEB 04/19/24 13:30 04/21/24 02:14 0.5 MG Ceftriaxone Sodium/Dextrose 50 ml @ 50 mls/hr Q12HR IV 04/20/24 10:00 04/21/24 09:46 50 MLS/HR Morphine Sulfate 2 mg Q4HPRN PRN IV 04/21/24 11:30 UNV Physical Exam: General: NAD Neck: Supple. No masses. HEENT: PERRL. Normal lids and conjunctiva. Moist mucous membranes. Oropharynx without lesions, exudates, or excessive erythema. Normal appearance of the external aspects of the nose and ears. Heart: Regular rhythm, normal rate. No murmur. No lower extremity edema. Lungs: Normal respiratory effort. Clear to auscultation bilaterally. No wheezes. No crackles. Abdomen: Soft. Non-tender. Non-distended. No masses or abdominal hernia. MSK: - Strength: 2/5 strength in bilateral lower extremities. - Sensation: Intact to soft touch in all four limbs. - Spinal tenderness noted in the lumbar region. - No digital cyanosis. Normal strength and tone in upper extremities. Skin: Warm and dry, no rashes. Neuro: Alert. No facial droop or slurred speech. Extraocular movements intact. Psych: Appropriate mood. Full affect. Oriented to person, place, time, and situation. laboratory and microbiology Laboratory Tests 04/21/24 05:40 Test 04/21/24 05:40 Range/Units Serum Glucose 97 74-106 mg/dL Problem List/Assessment/Plan Problems(with codes): (1) Chronic back pain (2) Shortness of breath (3) Acute chest pain (4) Bilateral leg weakness (5) Inability to walk (6) Bilateral lower extremity pain Problem List/Assessment/Plan ID Problem List: - Prevertebral abscess - Lumbar osteomyelitis/discitis - Bilateral lower extremity weakness - ESRD on dialysis - Seizure disorder - Hypertension COPD - Uncontrolled diabetes mellitus - Coronary artery disease, status post CABG and PTCA - History of pneumonia - History of buttock abscess with MRSA and E. coli infections Assessment This is a 59-year-old male with a past medical history of end-stage renal disease on dialysis, seizure disorder, hypertension, COPD, uncontrolled diabetes mellitus, and coronary artery disease status post CABG and PTCA, who presents with acute chest pain, shortness of breath, bilateral leg pain, inability to walk, and leg weakness. His symptoms have been worsening over the last several months, with health declining since February, necessitating the use of a walker for assistance. He was recently seen at an outside facility two days ago for unclear reasons; prior to this, he had pneumonia. He reports no current shortness of breath, dizziness, chest pain, fevers, or chills. He endorses weight loss and ongoing back pain in the lumbar region. Physical examination is notable for 2/5 strength in the bilateral lower extremities with full sensation, and spinal tenderness in the lumbar region. Laboratory studies reveal WBC 4.7, hemoglobin 10.2, platelet count 238, BUN 39, creatinine 7.2, glucose 126, BNP 1793, troponin 3.19. Chest X-ray shows opacities/infiltrates in both lung bases greater on the left side, markedly improved compared to prior thoracic imaging. MRI of the lumbar spine demonstrates findings most compatible with osteomyelitis/discitis with anterior vertebral abscess. No epidural abscess identified. Grade 1 anterior listhesis of L5 on S1 due to bilateral L5 pars defects. Multilevel degenerative disc disease with posterior facet arthropathy with evidence of nerve impingement at L4-L5 and L5-S1 levels. 04/19: appears to be clinically asymptomatic with exception of lower extremity weakness 04/20: Patients Chest , abdomen and pelvis Ct showed reticular opacities in the peripheral aspects of the lungs , mild super imposed lung opacities vs viral pneumonia similar to finding on 02/17/24. readministration of osteomyelitis L4 L5 associated with abscess , a visualized upper gluteal region is unremarkable with no evidence of ulcer abscess or sacral coxial erosion , their is moderate fecal retention and mild rectal fecal impaction tte wo vegetations Plan: - recommend 6 weeks IV vancomycin and ceftriaxone dosed at 2 grams Q 12 hours via tunneled catheter line and patient can get vancomycin at dialysis center - follow up with infectious disease in 4 weeks , patient may need a longer coarse of antibiotics and maybe oral treatment until epidural abscess is resolved on MRI - defer electromagnetic leg weakness and need for additional physical therapy and mobility issued to primary service - follow up with neurosurgery as an outpatient and advise patient should additional neurological deficits develop or fevers recur on antibiotics or bowel/urinary incontinents patient should come to the emergency room for further evaluation - Infectious Disease: - Initiate broad-spectrum antibiotics covering likely organisms, including MRSA and E. coli, pending culture results. vancomycin and ceftriaxone 2gq 12hrs. - Obtain blood cultures and inflammatory markers - Neurosurgery Consult: - Evaluate for possible surgical intervention for vertebral abscess and spinal instability.--> defer to dr hodge's who is recommending medical conservative management with IV abx. - Renal: - Continue hemodialysis as scheduled. - Monitor renal function and electrolytes closely. - Neurology: - Monitor for signs of neurological deterioration. - Endocrinology: - Optimize glycemic control for uncontrolled diabetes mellitus. - Pulmonary: - Monitor respiratory status given history of COPD and recent pneumonia. - Provide smoking cessation counseling. - Cardiology: - Monitor cardiac status given elevated BNP and troponin levels. - Consider further cardiac evaluation to rule out acute coronary syndrome. - Physical Therapy: - Assist with mobility and strengthening exercises as tolerated. - Nutrition: - Assess nutritional status; provide dietary support to address weight loss. Isolation Precautions: Standard Plan discussed with: Other [facility]ary Evaluation Review Comments[facility] low fat low cholesterol renal Standard diet Expected Outcomes/Goals: gradual wt loss ENDY CAMP MD Apr 21, 2024 11:58
--- NOTE | 2024-04-21 12:24 | DVHPN2 ---
Progress Note - Dictate Date Seen: Apr 21, 2024 Has the PT tested + for MRSA If YES, has PT been informed?: No Medical Necessity Reason Pt with a Central, PICC or Fol: No Subjective Back pain is controlled. vital signs Vital Sign Date Time Temp Pulse Resp B/P (MAP) Pulse Ox O2 Delivery O2 Flow Rate FiO2 04/21/24 09:47 95 18 152/69 04/21/24 08:46 98.0 95 98.0 04/21/24 02:14 Room Air 0.0 04/21/24 02:14 21 Total Intake and Output 04/20/24 04/20/24 04/21/24 15:00 23:00 07:00 Intake Total 50 ml 1800 ml 800 ml Output Total 400 ml 300 ml Balance 50 ml 1400 ml 500 ml medications Current Medications Medications Dose Ordered Sig/Gerard Route Start Time Stop Time Status Last Admin Dose Admin Aspirin 81 mg DAILY PO 04/17/24 10:00 04/21/24 09:43 81 MG Clopidogrel Bisulfate 75 mg DAILY PO 04/17/24 10:00 04/21/24 09:46 75 MG Furosemide 40 mg DAILY IV 04/17/24 10:00 04/21/24 09:45 40 MG Hydralazine HCl 10 mg Q6HP PRN IV 04/16/24 14:00 04/20/24 12:38 10 MG Carvedilol 12.5 mg Q12HR PO 04/16/24 22:00 04/20/24 22:32 12.5 MG Amlodipine Besylate 5 mg DAILY PO 04/17/24 10:00 04/20/24 09:44 5 MG Atorvastatin Calcium 20 mg HS PO 04/16/24 22:00 04/20/24 22:32 20 MG Albuterol 2.5 mg Q4HPRN PRN NEB 04/16/24 14:00 Cancel Ipratropium [place] 0.5 mg Q4HPRN PRN NEB 04/16/24 14:00 Cancel Diagnostic Test (Pha) 1 strip ACHS 04/16/24 17:00 04/21/24 06:29 1 STRIP Insulin Human Regular ACHS SC 04/16/24 17:00 04/19/24 17:50 3 UNITS Dextrose 50 ml UD PRN IV 04/16/24 14:00 Sodium Chloride 10 ml Q8HR IV 04/16/24:00 04/21/24 05:16 10 ML Ondansetron HCl 4 mg Q4HP PRN IV 04/16/24 14:00 04/20/24 12:34 4 MG Docusate Sodium 100 mg BIDPRN PRN PO 04/16/24 14:00 04/19/24 16:16 100 MG Acetaminophen 650 mg Q6HP PRN PO 04/16/24 14:00 Sevelamer HCl 800 mg TIDWM PO 04/16/24 18:00 04/20/24 08:34 800 MG Multivit/Ca Carb/ B Cmplx/FA/Prenat 1 tab DAILY PO 04/17/24 10:00 04/21/24 09:42 1 TAB Nitroglycerin 0.4 mg Q5MINP PRN SL 04/16/24 16:30 Morphine Sulfate 2 mg Q30M PRN IV 04/16/24 16:30 04/21/24 09:44 2 MG Meropenem 50 ml @ 17 mls/hr HS IV 04/18/24 22:00 Cancel Daptomycin / Sodium Chloride 50 ml @ 100 mls/hr TUTHSA IV 04/19/24 21:00 UNV Vancomycin HCl 0 ml @ 0 mls/hr UD IV 04/18/24 21:30 Acetaminophen/ Hydrocodone Bitart 2 tab Q6HP PRN PO 04/19/24 11:00 04/19/24 21:15 2 TAB Albuterol 2.5 mg Q4HPRN PRN NEB 04/19/24 13:30 04/21/24 02:14 2.5 MG Ipratropium [place] 0.5 mg Q4HPRN PRN NEB 04/19/24 13:30 04/21/24 02:14 0.5 MG Ceftriaxone Sodium/Dextrose 50 ml @ 50 mls/hr Q12HR IV 04/20/24 10:00 04/21/24 09:46 50 MLS/HR Morphine Sulfate 2 mg Q4HPRN PRN IV 04/21/24 11:30 objective HEENT: No evidence of JVD, no oral ulcers. Pulmonary: Lungs are clear on auscultation bilaterally Cardiovascular S1-S2, no S3 or S4 Abdomen: Bowel sounds positive, soft no rebound tenderness Skin: No rash Neurological: Alert, oriented, no focal weakness Dialysis access move with no complications laboratory and microbiology Laboratory Tests 04/21/24 05:40 Test 04/21/24 05:40 Range/Units Serum Glucose 97 74-106 mg/dL Assessment/Plan Assessment: 1. End-stage renal disease on hemodialysis 2. Chest pain 3. Pneumonia 4. Hypertension 5. L4-L5 spondylodiscitis and anterior prevertebral abscess 6. Anemia 7. CHF 8. Diabetes type 2 9. Intractable back pain 10. CAD status post multiple stentings Plan: Hemodialysis today and TTS [place] every other day on non dialysis days Spine surgeon evaluation appreciated Continue antibiotics renally dose for GFR less than 10 mL per minute Cardiology consult Fluid restriction less than 1 L per day Resume antihypertensive meds, phosphate binders Kody for goal hemoglobin 10 to 11 grams/deciliter Thank you very much for allowing us to participate in the care of this patient Dietary Evaluation Review Comments: [facility]-60 low fat low cholesterol renal Standard diet Expected Outcomes/Goals: gradual wt loss Plan discussed with: Patient TOMÁS RODARTE MD Apr 21, 2024 12:24
[2024-04-21] MEDS: GABAPENTIN 100 MG CAP PO ONE (16:40)
[2024-04-21] MEDS: diazePAM 5 MG TAB PO PRN (16:40)
[2024-04-21] MEDS: EPOETIN ALFA-EPBX 10,000 UNIT/1ML VIAL SC ONE (21:14)
[2024-04-21] MEDS: GABAPENTIN 100 MG CAP PO SCH (21:21)
[2024-04-22] VITALS (10 sets, daily range): BP systolic 150–164; BP diastolic 54–70; PULSE 83–98; RESP 18–19; TEMP 98.2–98.5; O2SAT 93–98
[2024-04-22 07:55] LABS: Hematocrit 29.7 % (41.0-53.0); Hemoglobin 9.7 g/dL (13.5-17.5); Mean Corpuscular Hemoglobin 29.6 pg (28.0-32.0); Mean Corpuscular Hgb Conc. 32.7 g/dL (32.0-36.0); Mean Corpuscular Volume 90.7 fL (80.0-100.0); Platelet Count (auto) 197 10^3/uL (140-450); Red Blood Cells 3.27 10^6/uL (4.5-5.90); Red Cell Distribution Width 16.3 % (11.8-14.3); White Blood Cell 2.1 10^3/uL (4.4-10.8)
[2024-04-22 07:58] LABS: Basophils % (manual) 0 (0.0-2.0); Blast Cells 0; Metamyelocytes % 0; Myelocytes % 0; Promyelocytes % 0; Reactive Lymphocytes 0
[2024-04-22 08:11] LABS: Alanine Aminotransferase 10 U/L (7-40); Albumin 4.2 g/dL (3.2-4.8); Alkaline Phosphatase 82 U/L (46-116); Anion Gap 10 (5-15); BUN/Creatinine Ratio 5.6 (10.0-20.0); Calcium 9.7 mg/dL (8.7-10.4); Carbon Dioxide 29 mmol/L (20-31); Magnesium 2.3 mg/dL (1.6-2.6); Potassium 4.7 mmol/L (3.5-5.1)
[2024-04-22 08:12] LABS: Total Protein 6.8 g/dL (5.7-8.2)
[2024-04-22 08:15] LABS: Aspartate Aminotransferase 8 U/L (13-40); Bilirubin, Total 0.2 mg/dL (0.2-1.0); Blood Urea Nitrogen 33 mg/dL (9-23); Chloride 93 mmol/L (98-107); Glucose 122 mg/dL (74-106); Sodium 132 mmol/L (136-145)
[2024-04-22 10:16] LABS: Band Neutrophils % (manual) 2; Eosinophils % (manual) 1 (0-7); Lymphocytes % (manual) 66 (10.0-50.0); Monocytes % (manual) 19 (0-12); Platelet Estimate Adequate
--- NOTE | 2024-04-22 12:16 | DVHPN2 ---
Subjective No new complaints Changes from previous H/P or p: Changes Eyes: No Pain, No Vision change, No Conjunctivae inflammation, No Eyelid inflammation, No Other, No Redness ENT: No Ear pain, No Ear discharge, No Nose pain, No Nose discharge, No Nose congestion, No Mouth pain, No Mouth swelling, No Throat pain, No Throat swelling, No Other Cardiovascular: No Chest Pain, No Palpitations, No Orthopnea, No Paroxysmal Noc. Dyspnea, No Edema, No Lt Headedness, No Other Respiratory: No Cough, No Dry, No Shortness of breath, No SOB with excertion, No Wheezing, No Hemoptysis, No Pleuritic Pain, No Sputum, No Other Gastrointestinal: No Nausea, No Vomiting, No Abdominal Pain, No Diarrhea, No Constipation, No Melena, No Hematochezia, No Other Genitourinary: No Dysuria, No Frequency, No Incontinence, No Hematuria, No Retention, No Other Musculoskeletal: other (Bilateral leg weakness); No neck pain, No shoulder pain, No arm pain, No back pain, No hand pain; leg pain; No foot pain Skin: No Rash, No Lesions, No Jaundice, No Bruising, No Other Objective Vitals Vital Signs Date Time Temp Pulse Resp B/P (MAP) Pulse Ox O2 Delivery O2 Flow Rate FiO2 04/22/24 10:17 98 Room Air 04/22/24 10:17 0 21 04/22/24 09:56 150/60 04/22/24 09:56 85 04/22/24 08:57 98.5 18 98.5 Intake/Output Intake and Output 04/22/24 07:00 Intake Total 2420 ml Output Total 1100 ml Balance 1320 ml Intake Oral 2370 ml IV Total 50 ml Output Urine Total 1100 ml # Bowel Movements 1 General Appearance: Alert, Oriented X3, Cooperative Lungs: Clear to auscultation, Normal air movement Cardiovascular: Regular rate, Normal S1 Abdomen: Normal bowel sounds, Soft Extremities: No edema Medications Current Medications Medications Dose Ordered Sig/Gerard Route Start Time Stop Time Status Last Admin Dose Admin Aspirin 81 mg DAILY PO 04/17/24 10:00 04/22/24 09:55 81 MG Clopidogrel Bisulfate 75 mg DAILY PO 04/17/24 10:00 04/21/24 09:46 75 MG Furosemide 40 mg DAILY IV 04/17/24 10:00 04/22/24 09:56 40 MG Hydralazine HCl 10 mg Q6HP PRN IV 04/16/24 14:00 04/21/24 18:26 10 MG Carvedilol 12.5 mg Q12HR PO 04/16/24 22:00 04/22/24 09:56 12.5 MG Amlodipine Besylate 5 mg DAILY PO 04/17/24 10:00 04/22/24 09:56 5 MG Atorvastatin Calcium 20 mg HS PO 04/16/24 22:00 04/21/24 21:21 20 MG Albuterol 2.5 mg Q4HPRN PRN NEB 04/16/24 14:00 Cancel Ipratropium [place] 0.5 mg Q4HPRN PRN NEB 04/16/24 14:00 Cancel Diagnostic Test (Pha) 1 strip ACHS 04/16/24 17:00 04/22/24 11:34 1 STRIP Insulin Human Regular ACHS SC 04/16/24 17:00 04/22/24 11:34 2 UNITS Dextrose 50 ml UD PRN IV 04/16/24 14:00 Sodium Chloride 10 ml Q8HR IV 04/16/24 14:00 04/22/24 05:34 10 ML Ondansetron HCl 4 mg Q4HP PRN IV 04/16/24 14:00 04/20/24 12:34 4 MG Docusate Sodium 100 mg BIDPRN PRN PO 04/16/24 14:00 04/19/24 16:16 100 MG Acetaminophen 650 mg Q6HP PRN PO 04/16/24 14:00 Sevelamer HCl 800 mg TIDWM PO 04/16/24 18:00 04/22/24 08:13 800 MG Multivit/Ca Carb/ B Cmplx/FA/Prenat 1 tab DAILY PO 04/17/24 10:00 04/22/24 09:55 1 TAB Nitroglycerin 0.4 mg Q5MINP PRN SL 04/16/24 16:30 Morphine Sulfate 2 mg Q30M PRN IV 04/16/24 16:30 04/21/24 09:44 2 MG Meropenem 50 ml @ 17 mls/hr HS IV 04/18/24 22:00 Cancel Daptomycin / Sodium Chloride 50 ml @ 100 mls/hr TUTHSA IV 04/19/24 21:00 UNV Vancomycin HCl 0 ml @ 0 mls/hr UD IV 04/18/24 21:30 Acetaminophen/ Hydrocodone Bitart 2 tab Q6HP PRN PO 04/19/24 11:00 04/19/24 21:15 2 TAB Albuterol 2.5 mg Q4HPRN PRN NEB 04/19/24 13:30 04/21/24 02:14 2.5 MG Ipratropium [place] 0.5 mg Q4HPRN PRN NEB 04/19/24 13:30 04/21/24 02:14 0.5 MG Ceftriaxone Sodium/Dextrose 50 ml @ 50 mls/hr Q12HR IV 04/20/24 10:00 04/22/24 09:56 50 MLS/HR Morphine Sulfate 2 mg Q4HPRN PRN IV 04/21/24 11:30 Diazepam 5 mg DAILY PRN PO 04/21/24 16:30 04/21/24 16:40 5 MG Gabapentin 100 mg TID PO 04/21/24 22:00 04/22/24 05:34 100 MG Laboratory Results Laboratory Tests 04/22/24 07:34 Chemistry Test 04/22/24 07:34 Albumin 4.2 g/dL (3.2-4.8) Calcium Level 9.7 mg/dL (8.7-10.4) Magnesium Level 2.3 mg/dL (1.6-2.6) Total Protein 6.8 g/dL (5.7-8.2) LFT Test 04/22/24 07:34 Alanine Aminotransferase (ALT) 10 U/L (7-40) Alkaline Phosphatase 82 U/L (46-116) Aspartate Amino Transferase (AST) 8 U/L (13-40) L Total Bilirubin 0.2 mg/dL (0.2-1.0) Urinalysis Test 04/16/24 03:30 Urine Color Light-yellow (Yellow) Urine Clarity Clear (Clear) Urine pH 8.5 (5.0-9.0) Urine Specific [place] 1.012 (1.001-1.035) Urine Protein 3+ (Negative) H Urine Ketones Negative (Negative) Urine Blood Negative /uL (Negative) Urine Nitrite Negative (Negative) Urine Bilirubin Negative (Negative) Urine Urobilinogen Normal mg/dL (Negative) Urine Leukocyte Esterase Trace /uL (Negative) Urine RBC 2 /hpf (0 - 3) Urine Microscopic WBC 10 /HPF (0-3) H Urine Squamous Epithelial Cells Few /hpf (<5) Urine Bacteria None seen /hpf (None Seen) Urine Glucose 2+ mg/dL (Normal) H Microbiology Microbiology Date/Time Source Procedure Growth Status 04/19/24 21:32 Nose MRSA Screen - Final Complete 04/19/24 19:31 Blood Blood Culture - Preliminary NO GROWTH AFTER 48 HOURS OF INCUBATION. Resulted Assessment/Plan Assessment/Plan Intractable lower back pain Hyperkalemia End-stage renal disease on hemodialysis Generalized weakness Possible underlying pneumonia Chronic anemia of chronic kidney disease Chest pain most likely noncardiac Coronary artery disease status post PTCA x6 on aspirin and Plavix Acute on chronic heart failure with reduced ejection fraction last ejection fraction 35% Obesity Tobacco use Type 2 diabetes Dyslipidemia Hypertension Plan Get a CT scan of the lumbar spine to rule out abscess since the patient says he was diagnosed with an abscess lately and was given oral Cipro from [facility] Hemodialysis to be done today Nephrology consult Cardiology consult Pain management with morphine and [place] as needed Physical therapy evaluation Full code Discussed with the the patient and with his over the phone Advance directives discussed for 20 minutes 04/18/2024: Lumbar spine L4-L5 diskitis with anterior prevertebral abscess Degenerative disc disease of the lumbar spine End-stage renal disease Hyperkalemia Plan: Start broad-spectrum antibiotics with meropenem and vancomycin Infectious Disease consultation Spinal surgery consultation Hemodialysis per nephrology Repeat the labs Monitor the patient closely 04/19/2024: Continue IV antibiotics ID consult Spinal surgery recommended conservative treatment with IV antibiotics If the patient will need only IV vancomycin then he can get it at the dialysis Treatment plan discussed with the patient and his over the phone He is complaining of more pain in his back and not relieved by the current regimen and therefore we will increase morphine to 4 mg IV every 4 hours p.r.n. and increase the [place] to 2 tablets q.6 hours p.r.n. The rest of the management will depend on the hospital course Hemodialysis per nephrology 04/20/2024: Continue IV antibiotics with Rocephin and vancomycin Discussed with ID and Nephrology, since the patient can not have a PICC line, we will do a tunneled central line by IR Patient can then be discharged home on IV vancomycin with dialysis and IV Rocephin daily by home health Continue pain management The rest of the management will depend on the hospital course 04/21/2024: Continue IV antibiotics Tunneled central line to be done on Tuesday Lower the dose of morphine to minimize the side effects [place] as needed Discharge planning once the central line is done and IV antibiotics are ordered Neutropenia: Place on neutropenic precautions Hyperkalemia: Dialysis per Nephrology 04/22/2024: Continue the current regimen of IV antibiotics Waiting for the central line to be done Discharge planning was central line is done Hemodialysis per nephrology Plan discussed with: Patient My Orders Orders - SADAF SANTANA MD Procedure Category Date Status Time Diazepam Tablet PHA 04/21/24 In Process (Valium Tablet) 16:30 Gabapentin Capsule PHA 04/21/24 In Process (Neurontin Capsule) 22:00 Date of Service: Apr 22, 2024 Billing Provider: SADAF SANTANA MD Common Visit Codes: [id number] INP/OBS CARE(HIGH) SADAF SANTANA MD Apr 22, 2024 12:16
[2024-04-22] MEDS: MORPHINE SULFATE INJ 2 MG/ml SYRG IV PRN (14:59)
--- NOTE | 2024-04-22 16:08 | DVHPN2 ---
Progress Note - Dictate Date Seen: Apr 22, 2024 Has the PT tested + for MRSA If YES, has PT been informed?: No Medical Necessity Reason Pt with a Central, PICC or Fol: No Subjective The patient is endorses back pain controlled vital signs Vital Sign Date Time Temp Pulse Resp B/P (MAP) Pulse Ox O2 Delivery O2 Flow Rate FiO2 04/22/24 15:44 85 18 150/60 98 0.0 21 04/22/24 13:00 98.2 98.2 04/22/24 10:17 Room Air Total Intake and Output 04/21/24 04/21/24 04/22/24 15:00 23:00 07:00 Intake Total 50 ml 1620 ml 750 ml Output Total 500 ml 600 ml Balance 50 ml 1120 ml 150 ml medications Current Medications Medications Dose Ordered Sig/Gerard Route Start Time Stop Time Status Last Admin Dose Admin Aspirin 81 mg DAILY PO 04/17/24 10:00 04/22/24 09:55 81 MG Clopidogrel Bisulfate 75 mg DAILY PO 04/17/24 10:00 04/21/24 09:46 75 MG Furosemide 40 mg DAILY IV 04/17/24 10:00 04/22/24 09:56 40 MG Hydralazine HCl 10 mg Q6HP PRN IV 04/16/24 14:00 04/21/24 18:26 10 MG Carvedilol 12.5 mg Q12HR PO 04/16/24 22:00 04/22/24 09:56 12.5 MG Amlodipine Besylate 5 mg DAILY PO 04/17/24 10:00 04/22/24 09:56 5 MG Atorvastatin Calcium 20 mg HS PO 04/16/24 22:00 04/21/24 21:21 20 MG Albuterol 2.5 mg Q4HPRN PRN NEB 04/16/24 14:00 Cancel Ipratropium [place] 0.5 mg Q4HPRN PRN NEB 04/16/24 14:00 Cancel Diagnostic Test (Pha) 1 strip ACHS 04/16/24 17:00 04/22/24 11:34 1 STRIP Insulin Human Regular ACHS SC 04/16/24 17:00 04/22/24 11:34 2 UNITS Dextrose 50 ml UD PRN IV 04/16/24 14:00 Sodium Chloride 10 ml Q8HR IV 04/16/24 14:00 2/16/25 14:40 10 ML Ondansetron HCl 4 mg Q4HP PRN IV 04/16/24 14:00 04/20/24 12:34 4 MG Docusate Sodium 100 mg BIDPRN PRN PO 04/16/24 14:00 04/19/24 16:16 100 MG Acetaminophen 650 mg Q6HP PRN PO 04/16/24 14:00 Sevelamer HCl 800 mg TIDWM PO 04/16/24 18:00 04/22/24 14:40 800 MG Multivit/Ca Carb/ B Cmplx/FA/Prenat 1 tab DAILY PO 04/17/24 10:00 04/22/24 09:55 1 TAB Nitroglycerin 0.4 mg Q5MINP PRN SL 04/16/24 16:30 Morphine Sulfate 2 mg Q30M PRN IV 04/16/24 16:30 04/21/24 09:44 2 MG Meropenem 50 ml @ 17 mls/hr HS IV 04/18/24 22:00 Cancel Daptomycin / Sodium Chloride 50 ml @ 100 mls/hr TUTHSA IV 04/19/24 21:00 UNV Vancomycin HCl 0 ml @ 0 mls/hr UD IV 04/18/24 21:30 Acetaminophen/ Hydrocodone Bitart 2 tab Q6HP PRN PO 04/19/24 11:00 04/19/24 21:15 2 TAB Albuterol 2.5 mg Q4HPRN PRN NEB 04/19/24 13:30 04/21/24 02:14 2.5 MG Ipratropium [place] 0.5 mg Q4HPRN PRN NEB 04/19/24 13:30 04/21/24 02:14 0.5 MG Ceftriaxone Sodium/Dextrose 50 ml @ 50 mls/hr Q12HR IV 04/20/24 10:00 04/22/24 09:56 50 MLS/HR Morphine Sulfate 2 mg Q4HPRN PRN IV 04/21/24 11:30 04/22/24 14:59 2 MG Diazepam 5 mg DAILY PRN PO 04/21/24 16:30 04/21/24 16:40 5 MG Gabapentin 100 mg TID PO 04/21/24 22:00 04/22/24 14:41 100 MG objective HEENT: No evidence of JVD, no oral ulcers. Pulmonary: Lungs are clear on auscultation bilaterally Cardiovascular S1-S2, no S3 or S4 Abdomen: Bowel sounds positive, soft no rebound tenderness Skin: No rash Neurological: Alert, oriented, no focal weakness Dialysis access move with no complications laboratory and microbiology Laboratory Tests 04/22/24 07:34 Test 04/22/24 07:34 Range/Units Serum Glucose 122 H 74-106 mg/dL Assessment/Plan Assessment: 1. End-stage renal disease on hemodialysis 2. Chest pain 3. Pneumonia 4. Hypertension 5. L4-L5 spondylodiscitis and anterior prevertebral abscess 6. Anemia 7. CHF 8. Diabetes type 2 9. Intractable back pain 10. CAD status post multiple stentings Plan: Hemodialysis today and TTS [facility] on non dialysis days Spine surgeon evaluation appreciated Continue antibiotics renally dose for GFR less than 10 mL per minute Cardiology consult Fluid restriction less than 1 L per day Resume antihypertensive meds, phosphate binders Kody for goal hemoglobin 10 to 11 grams/deciliter For long-term IV antibiotics preferably tunneled central line as opposed to PICC line Thank you very much for allowing us to participate in the care of this patient Dietary Evaluation Review Comments: CCHO-60 low fat low cholesterol renal Standard diet Expected Outcomes/Goals: gradual wt loss Plan discussed with: Patient TOMÁS RODARTE MD Apr 22, 2024 16:08
[2024-04-22] MEDS: VANCOMYCIN 1.5GM/300ML 300 ML IV ONE (17:54)
[2024-04-23] VITALS (19 sets, daily range): BP systolic 128–178; BP diastolic 60–80; PULSE 81–93; RESP 11–19; TEMP 97.8–99.6; O2SAT 93–100
[2024-04-23 06:41] LABS: Hemoglobin 8.9 g/dL (13.5-17.5); Mean Corpuscular Hemoglobin 30.1 pg (28.0-32.0); Mean Corpuscular Hgb Conc. 32.9 g/dL (32.0-36.0); Mean Corpuscular Volume 91.5 fL (80.0-100.0); Platelet Count (auto) 193 10^3/uL (140-450); Red Blood Cells 2.95 10^6/uL (4.5-5.90); Red Cell Distribution Width 16.2 % (11.8-14.3); White Blood Cell 2.4 10^3/uL (4.4-10.8)
[2024-04-23 06:50] LABS: Basophils % (manual) 0 (0.0-2.0); Myelocytes % 0; Promyelocytes % 0; Reactive Lymphocytes 0
[2024-04-23 06:57] LABS: Alanine Aminotransferase 10 U/L (7-40); Albumin 3.9 g/dL (3.2-4.8); Alkaline Phosphatase 68 U/L (46-116); Anion Gap 11 (5-15); Calcium 9.8 mg/dL (8.7-10.4); Carbon Dioxide 27 mmol/L (20-31); Magnesium 2.5 mg/dL (1.6-2.6); Potassium 4.7 mmol/L (3.5-5.1); Total Protein 6.2 g/dL (5.7-8.2)
[2024-04-23 07:02] LABS: Aspartate Aminotransferase 9 U/L (13-40); Bilirubin, Total 0.2 mg/dL (0.2-1.0); Blood Urea Nitrogen 42 mg/dL (9-23); Chloride 94 mmol/L (98-107); Glucose 110 mg/dL (74-106); Sodium 132 mmol/L (136-145)
[2024-04-23 08:44] LABS: Hepatitis B Surface Antigen Negative (Negative)
[2024-04-23 09:03] LABS: Hepatitis A Ab IgM Negative; Hepatitis B Core IgM Negative (Negative); Hepatitis C Antibody Negative (Negative)
[2024-04-23 10:36] LABS: Band Neutrophils % (manual) 4; Blast Cells 2; Eosinophils % (manual) 6 (0-7); Lymphocytes % (manual) 47 (10.0-50.0); Metamyelocytes % 2; Monocytes % (manual) 32 (0-12)
[2024-04-23 10:37] LABS: Platelet Estimate Adequate
--- NOTE | 2024-04-23 10:40 | DVHPN2 ---
Progress Note - Dictate Date Seen: Apr 23, 2024 Has the PT tested + for MRSA If YES, has PT been informed?: No Medical Necessity Reason Pt with a Central, PICC or Fol: No Subjective no acute issues overnight vital signs Vital Sign Date Time Temp Pulse Resp B/P (MAP) Pulse Ox O2 Delivery O2 Flow Rate FiO2 04/23/24 10:16 93 Room Air* 0 21 04/23/24 09:53 81 16 166/74 04/23/24 08:42 98.2 98.2 Total Intake and Output 04/22/24 04/22/24 04/23/24 15:00 23:00 07:00 Intake Total 50 ml 400 ml 170 ml Output Total 350 ml Balance 50 ml 400 ml -180 ml medications Current Medications Medications Dose Ordered Sig/Gerard Route Start Time Stop Time Status Last Admin Dose Admin Aspirin 81 mg DAILY PO 04/17/24 10:00 04/22/24 09:55 81 MG Clopidogrel Bisulfate 75 mg DAILY PO 04/17/24 10:00 04/21/24 09:46 75 MG Furosemide 40 mg DAILY IV 04/17/24 10:00 04/23/24 08:39 40 MG Hydralazine HCl 10 mg Q6HP PRN IV 04/16/24 14:00 04/23/24 08:38 10 MG Carvedilol 12.5 mg Q12HR PO 04/16/24 22:00 04/22/24 22:18 12.5 MG Amlodipine Besylate 5 mg DAILY PO 04/17/24 10:00 04/22/24 09:56 5 MG Atorvastatin Calcium 20 mg HS PO 04/16/24 22:00 04/22/24 22:17 20 MG Albuterol 2.5 mg Q4HPRN PRN NEB 04/16/24 14:00 Cancel Ipratropium [place] 0.5 mg Q4HPRN PRN NEB 04/16/24 14:00 Cancel Diagnostic Test (Pha) 1 strip ACHS 04/16/24 17:00 04/23/24 06:58 1 STRIP Insulin Human Regular ACHS SC 04/16/24 17:00 04/22/24 17:31 3 UNITS Dextrose 50 ml UD PRN IV 04/16/24 14:00 Sodium Chloride 10 ml Q8HR IV 04/16/24 14:00 04/23/24 06:13 10 ML Ondansetron HCl 4 mg Q4HP PRN IV 04/16/24 14:00 04/22/24 18:15 4 MG Docusate Sodium 100 mg BIDPRN PRN PO 04/16/24 14:00 04/19/24 16:16 100 MG Acetaminophen 650 mg Q6HP PRN PO 04/16/24 14:00 Sevelamer HCl 800 mg TIDWM PO 04/16/24 18:00 04/22/24 17:37 800 MG Multivit/Ca Carb/ B Cmplx/FA/Prenat 1 tab DAILY PO 04/17/24 10:00 04/22/24 09:55 1 TAB Nitroglycerin 0.4 mg Q5MINP PRN SL 04/16/24 16:30 Morphine Sulfate 2 mg Q30M PRN IV 04/16/24 16:30 04/21/24 09:44 2 MG Meropenem 50 ml @ 17 mls/hr HS IV 04/18/24 22:00 Cancel Daptomycin / Sodium Chloride 50 ml @ 100 mls/hr TUTHSA IV 04/19/24 21:00 UNV Vancomycin HCl 0 ml @ 0 mls/hr UD IV 04/18/24 21:30 Acetaminophen/ Hydrocodone Bitart 2 tab Q6HP PRN PO 04/19/24 11:00 04/19/24 21:15 2 TAB Albuterol 2.5 mg Q4HPRN PRN NEB 04/19/24 13:30 04/23/24 08:55 2.5 MG Ipratropium [place] 0.5 mg Q4HPRN PRN NEB 04/19/24 13:30 04/23/24 08:55 0.5 MG Ceftriaxone Sodium/Dextrose 50 ml @ 50 mls/hr Q12HR IV 04/20/24 10:00 04/23/24 08:39 50 MLS/HR Morphine Sulfate 2 mg Q4HPRN PRN IV 04/21/24 11:30 04/23/24 09:53 2 MG Diazepam 5 mg DAILY PRN PO 04/21/24 16:30 04/21/24 16:40 5 MG Gabapentin 100 mg TID PO 04/21/24 22:00 04/23/24 06:10 100 MG objective HEENT: No evidence of JVD, no oral ulcers. Pulmonary: Lungs are clear on auscultation bilaterally Cardiovascular S1-S2, no S3 or S4 Abdomen: Bowel sounds positive, soft no rebound tenderness Skin: No rash Neurological: Alert, oriented, no focal weakness laboratory and microbiology Laboratory Tests 04/23/24 05:19 Test 04/23/24 05:19 Range/Units Serum Glucose 110 H 74-106 mg/dL Problem List 1. End-stage renal disease on hemodialysis 2. Chest pain 3. Pneumonia 4. Hypertension 5. L4-L5 spondylodiscitis and anterior prevertebral abscess 6. Anemia 7. CHF 8. Diabetes type 2 9. Intractable back pain 10. CAD status post multiple stentings Assessment/Plan Plan: Hemodialysis TTS schedule [facility] on non dialysis days Spine surgeon evaluation appreciated IV antibiotics as per ID Awaiting central line placement for home antibiotics Dietary Evaluation Review Comments: CCHO-60 low fat low cholesterol renal Standard diet Expected Outcomes/Goals: gradual wt loss Plan discussed with: Patient NETTIE LIVINGSTON MD Apr 23, 2024 10:40
--- NOTE | 2024-04-23 11:26 | DVHPN2 ---
Subjective No new complaints still c/o weakness and back pain Changes from previous H/P or p: Changes Eyes: No Pain, No Vision change, No Conjunctivae inflammation, No Eyelid inflammation, No Other, No Redness ENT: No Ear pain, No Ear discharge, No Nose pain, No Nose discharge, No Nose congestion, No Mouth pain, No Mouth swelling, No Throat pain, No Throat swelling, No Other Cardiovascular: No Chest Pain, No Palpitations, No Orthopnea, No Paroxysmal Noc. Dyspnea, No Edema, No Lt Headedness, No Other Respiratory: No Cough, No Dry, No Shortness of breath, No SOB with excertion, No Wheezing, No Hemoptysis, No Pleuritic Pain, No Sputum, No Other Gastrointestinal: No Nausea, No Vomiting, No Abdominal Pain, No Diarrhea, No Constipation, No Melena, No Hematochezia, No Other Genitourinary: No Dysuria, No Frequency, No Incontinence, No Hematuria, No Retention, No Other Musculoskeletal: other (Bilateral leg weakness); No neck pain, No shoulder pain, No arm pain, No back pain, No hand pain; leg pain; No foot pain Skin: No Rash, No Lesions, No Jaundice, No Bruising, No Other Objective Vitals Vital Signs Date Time Temp Pulse Resp B/P (MAP) Pulse Ox O2 Delivery O2 Flow Rate FiO2 04/23/24 10:16 93 Room Air* 0 21 04/23/24 09:53 81 16 166/74 04/23/24 08:42 98.2 98.2 Intake/Output Intake and Output 04/23/24 07:00 Intake Total 620 ml Output Total 350 ml Balance 270 ml Intake Oral 520 ml IV Total 100 ml Output Urine Total 350 ml # Voids 1 # Bowel Movements 1 General Appearance: Alert, Oriented X3, Cooperative Lungs: Clear to auscultation, Normal air movement Cardiovascular: Regular rate, Normal S1 Abdomen: Normal bowel sounds, Soft Extremities: No edema Medications Current Medications Medications Dose Ordered Sig/Gerard Route Start Time Stop Time Status Last Admin Dose Admin Aspirin 81 mg DAILY PO 04/17/24 10:00 04/22/24 09:55 81 MG Clopidogrel Bisulfate 75 mg DAILY PO 04/17/24 10:00 04/21/24 09:46 75 MG Furosemide 40 mg DAILY IV 04/17/24 10:00 04/23/24 08:39 40 MG Hydralazine HCl 10 mg Q6HP PRN IV 04/16/24 14:00 04/23/24 08:38 10 MG Carvedilol 12.5 mg Q12HR PO 04/16/24 22:00 04/22/24 22:18 12.5 MG Amlodipine Besylate 5 mg DAILY PO 04/17/24 10:00 04/22/24 09:56 5 MG Atorvastatin Calcium 20 mg HS PO 04/16/24 22:00 04/22/24 22:17 20 MG Albuterol 2.5 mg Q4HPRN PRN NEB 04/16/24 14:00 Cancel Ipratropium [place] 0.5 mg Q4HPRN PRN NEB 04/16/24 14:00 Cancel Diagnostic Test (Pha) 1 strip ACHS 04/16/24 17:00 04/23/24 06:58 1 STRIP Insulin Human Regular ACHS SC 04/16/24 17:00 04/22/24 17:31 3 UNITS Dextrose 50 ml UD PRN IV 04/16/24 14:00 Sodium Chloride 10 ml Q8HR IV 04/16/24 14:00 04/23/24 06:13 10 ML Ondansetron HCl 4 mg Q4HP PRN IV 04/16/24 14:00 04/22/24 18:15 4 MG Docusate Sodium 100 mg BIDPRN PRN PO 04/16/24 14:00 04/19/24 16:16 100 MG Acetaminophen 650 mg Q6HP PRN PO 04/16/24 14:00 Sevelamer HCl 800 mg TIDWM PO 04/16/24 18:00 04/22/24 17:37 800 MG Multivit/Ca Carb/ B Cmplx/FA/Prenat 1 tab DAILY PO 04/17/24 10:00 04/22/24 09:55 1 TAB Nitroglycerin 0.4 mg Q5MINP PRN SL 04/16/24 16:30 Morphine Sulfate 2 mg Q30M PRN IV 04/16/24 16:30 04/21/24 09:44 2 MG Meropenem 50 ml @ 17 mls/hr HS IV 04/18/24 22:00 Cancel Daptomycin / Sodium Chloride 50 ml @ 100 mls/hr TUTHSA IV 04/19/24 21:00 UNV Vancomycin HCl 0 ml @ 0 mls/hr UD IV 04/18/24 21:30 Acetaminophen/ Hydrocodone Bitart 2 tab Q6HP PRN PO 04/19/24 11:00 04/19/24 21:15 2 TAB Albuterol 2.5 mg Q4HPRN PRN NEB 04/19/24 13:30 04/23/24 08:55 2.5 MG Ipratropium [place] 0.5 mg Q4HPRN PRN NEB 04/19/24 13:30 04/23/24 08:55 0.5 MG Ceftriaxone Sodium/Dextrose 50 ml @ 50 mls/hr Q12HR IV 04/20/24 10:00 04/23/24 08:39 50 MLS/HR Morphine Sulfate 2 mg Q4HPRN PRN IV 04/21/24 11:30 04/23/24 09:53 2 MG Diazepam 5 mg DAILY PRN PO 04/21/24 16:30 04/23/24 10:58 5 MG Gabapentin 100 mg TID PO 04/21/24 22:00 04/23/24 10:58 100 MG Laboratory Results Laboratory Tests 04/23/24 05:19 Chemistry Test 04/23/24 05:19 Albumin 3.9 g/dL (3.2-4.8) Calcium Level 9.8 mg/dL (8.7-10.4) Magnesium Level 2.5 mg/dL (1.6-2.6) Total Protein 6.2 g/dL (5.7-8.2) LFT Test 04/23/24 05:19 Alanine Aminotransferase (ALT) 10 U/L (7-40) Alkaline Phosphatase 68 U/L (46-116) Aspartate Amino Transferase (AST) 9 U/L (13-40) L Total Bilirubin 0.2 mg/dL (0.2-1.0) Urinalysis Test 04/16/24 03:30 Urine Color Light-yellow (Yellow) Urine Clarity Clear (Clear) Urine pH 8.5 (5.0-9.0) Urine Specific [place] 1.012 (1.001-1.035) Urine Protein 3+ (Negative) H Urine Ketones Negative (Negative) Urine Blood Negative /uL (Negative) Urine Nitrite Negative (Negative) Urine Bilirubin Negative (Negative) Urine Urobilinogen Normal mg/dL (Negative) Urine Leukocyte Esterase Trace /uL (Negative) Urine RBC 2 /hpf (0 - 3) Urine Microscopic WBC 10 /HPF (0-3) H Urine Squamous Epithelial Cells Few /hpf (<5) Urine Bacteria None seen /hpf (None Seen) Urine Glucose 2+ mg/dL (Normal) H Microbiology Microbiology Date/Time Source Procedure Growth Status 04/19/24 21:32 Nose MRSA Screen - Final Complete 04/19/24 19:31 Blood Blood Culture - Preliminary NO GROWTH AFTER 72 HOURS OF INCUBATION. Resulted Assessment/Plan Assessment/Plan Intractable lower back pain Hyperkalemia End-stage renal disease on hemodialysis Generalized weakness Possible underlying pneumonia Chronic anemia of chronic kidney disease Chest pain most likely noncardiac Coronary artery disease status post PTCA x6 on aspirin and Plavix Acute on chronic heart failure with reduced ejection fraction last ejection fraction 35% Obesity Tobacco use Type 2 diabetes Dyslipidemia Hypertension Plan Get a CT scan of the lumbar spine to rule out abscess since the patient says he was diagnosed with an abscess lately and was given oral Cipro from [facility] Hemodialysis to be done today Nephrology consult Cardiology consult Pain management with morphine and Bath as needed Physical therapy evaluation Full code Discussed with the the patient and with his over the phone Advance directives discussed for 20 minutes 04/18/2024: Lumbar spine L4-L5 diskitis with anterior prevertebral abscess Degenerative disc disease of the lumbar spine End-stage renal disease Hyperkalemia Plan: Start broad-spectrum antibiotics with meropenem and vancomycin Infectious Disease consultation Spinal surgery consultation Hemodialysis per nephrology Repeat the labs Monitor the patient closely 04/19/2024: Continue IV antibiotics ID consult Spinal surgery recommended conservative treatment with IV antibiotics If the patient will need only IV vancomycin then he can get it at the dialysis Treatment plan discussed with the patient and his over the phone He is complaining of more pain in his back and not relieved by the current regimen and therefore we will increase morphine to 4 mg IV every 4 hours p.r.n. and increase the Bath to 2 tablets q.6 hours p.r.n. The rest of the management will depend on the hospital course Hemodialysis per nephrology 04/20/2024: Continue IV antibiotics with Rocephin and vancomycin Discussed with ID and Nephrology, since the patient can not have a PICC line, we will do a tunneled central line by IR Patient can then be discharged home on IV vancomycin with dialysis and IV Rocephin daily by home health Continue pain management The rest of the management will depend on the hospital course 04/21/2024: Continue IV antibiotics Tunneled central line to be done on Tuesday Lower the dose of morphine to minimize the side effects Bath as needed Discharge planning once the central line is done and IV antibiotics are ordered Neutropenia: Place on neutropenic precautions Hyperkalemia: Dialysis per Nephrology 04/22/2024: Continue the current regimen of IV antibiotics Waiting for the central line to be done Discharge planning was central line is done Hemodialysis per nephrology 04/23/24: Order home health for IV antibiotics: Vanco with HD + Rocephin 2 gm q 12 h x 6 weeks Tunnelled central line pending Pain control Continue physical therapy HD per nephrology Plan discussed with: Patient, Spouse Date of Service: Apr 23, 2024 Billing Provider: SADAF SANTANA MD Common Visit Codes: [id number] INP/OBS CARE(HIGH) SADAF SANTANA MD Apr 23, 2024 11:26
--- NOTE | 2024-04-23 15:54 | DVH ---
XY Insertion of Venous Cath, HISTORY: INTRA POWER LINE for IV antibiotics at home. PROCEDURE: Informed consent was obtained. The patient was placed supine on the interventional table. A limited localization ultrasound of the right neck base was obtained. The right neck base and upper chest were prepped with chlorhexidine which was allowed to dry and draped in the usual sterile fashio n. Time out was performed. IV sedation was administered. The skin and the soft tissues were infiltrat ed with 1% Lidocaine . With real-time ultrasound guidance, the internal jugular vein was accessed wit h a micropuncture kit, and an image documenting patency was recorded to PACS. A subcutaneous tunneled tract was created from the right upper chest to the venotomy site. A 5 [place] Power Line, 28 cm long cut to length catheter was advanced through the tunneled tract. Fluoroscopy was used to advance a guidewire through the internal jugular vein into the inferior vena cava. 5 [place] peel-away sheath was introduced, though which was advanced the catheter into the right atrium. The catheter tip position was confirmed with fluoroscopy. There was satisfactory flow in bot h lumens. The catheter lumens were flushed with saline and heparin was left indwelling in the cathete r. A post-procedure image of the chest was obtained. The neck incision site was closed with a pressur e and dressed sterilely. The catheter was sutured at the skin surface and exit site also dressed ster ilely. No immediate complication was identified. DAP 105 FLUOROSCOPY TIME: 0.8 minutes. SEDATION: Dr. Leia Iraheta was personally responsible for the administration of moderate sedation during the procedure performed, including the use of an independent trained observer who had no other duties during the procedure. The drugs utilized were IV fentanyl and versed (see nursing log for details). The total time of supervision by the attending physician was approximately 25 minutes. FINDINGS: Widely patent right IJV. Post procedure image demonstrates smooth course of the Power Line catheter with the tip in the right atrium. IMPRESSION: Placement of 5 [place] dual lumen Power Line, 28 cm long cut to length catheter through right internal jugular vein. Plan: Please contact IR for removal when no longer needed.
--- NOTE | 2024-04-23 21:14 | DVHPN2 ---
Consult Progress Note Date Seen: Apr 21, 2024 Subjective Patient reports: Other (tolerated dialysis today ) Objective vital signs Vital Sign Date Time Temp Pulse Resp B/P (MAP) Pulse Ox O2 Delivery O2 Flow Rate FiO2 04/23/24 17:16 128/80 04/23/24 16:42 98.2 91 16 99 98.2 04/23/24 10:16 Room Air* 0 21 Total Intake and Output 04/22/24 04/22/24 04/23/24 15:00 23:00 07:00 Intake Total 50 ml 400 ml 170 ml Output Total 350 ml Balance 50 ml 400 ml -180 ml medications Current Medications Medications Dose Ordered Sig/Gerard Route Start Time Stop Time Status Last Admin Dose Admin Aspirin 81 mg DAILY PO 04/17/24 10:00 04/23/24 17:16 81 MG Clopidogrel Bisulfate 75 mg DAILY PO 04/17/24 10:00 04/23/24 17:16 75 MG Furosemide 40 mg DAILY IV 04/17/24 10:00 04/23/24 08:39 40 MG Hydralazine HCl 10 mg Q6HP PRN IV 04/16/24 14:00 04/23/24 15:33 10 MG Carvedilol 12.5 mg Q12HR PO 04/16/24 22:00 04/22/24 22:18 12.5 MG Amlodipine Besylate 5 mg DAILY PO 04/17/24 10:00 04/23/24 17:16 5 MG Atorvastatin Calcium 20 mg HS PO 04/16/24 22:00 04/22/24 22:17 20 MG Albuterol 2.5 mg Q4HPRN PRN NEB 04/16/24 14:00 Cancel Ipratropium [place] 0.5 mg Q4HPRN PRN NEB 04/16/24 14:00 Cancel Diagnostic Test (Pha) 1 strip ACHS 04/16/24 17:00 04/23/24 17:10 1 STRIP Insulin Human Regular ACHS SC 04/16/24 17:00 04/22/24 17:31 3 UNITS Dextrose 50 ml UD PRN IV 04/16/24 14:00 Sodium Chloride 10 ml Q8HR IV 04/16/24 14:00 04/23/24 17:10 10 ML Ondansetron HCl 4 mg Q4HP PRN IV 04/16/24 14:00 04/22/24 18:15 4 MG Docusate Sodium 100 mg BIDPRN PRN PO 04/16/24 14:00 04/19/24 16:16 100 MG Acetaminophen 650 mg Q6HP PRN PO 04/16/24 14:00 Sevelamer HCl 800 mg TIDWM PO 04/16/24 18:00 04/23/24 18:30 800 MG Multivit/Ca Carb/ B Cmplx/FA/Prenat 1 tab DAILY PO 04/17/24 10:00 04/23/24 17:16 1 TAB Nitroglycerin 0.4 mg Q5MINP PRN SL 04/16/24 16:30 Morphine Sulfate 2 mg Q30M PRN IV 04/16/24 16:30 04/21/24 09:44 2 MG Meropenem 50 ml @ 17 mls/hr HS IV 04/18/24 22:00 Cancel Daptomycin / Sodium Chloride 50 ml @ 100 mls/hr TUTHSA IV 04/19/24 21:00 UNV Vancomycin HCl 0 ml @ 0 mls/hr UD IV 04/18/24 21:30 Acetaminophen/ Hydrocodone Bitart 2 tab Q6HP PRN PO 04/19/24 11:00 04/19/24 21:15 2 TAB Albuterol 2.5 mg Q4HPRN PRN NEB 04/19/24 13:30 04/23/24 08:55 2.5 MG Ipratropium [place] 0.5 mg Q4HPRN PRN NEB 04/19/24 13:30 04/23/24 08:55 0.5 MG Ceftriaxone Sodium/Dextrose 50 ml @ 50 mls/hr Q12HR IV 04/20/24 10:00 04/23/24 08:39 50 MLS/HR Morphine Sulfate 2 mg Q4HPRN PRN IV 04/21/24 11:30 04/23/24 09:53 2 MG Diazepam 5 mg DAILY PRN PO 04/21/24 16:30 04/23/24 10:58 5 MG Gabapentin 100 mg TID PO 04/21/24 22:00 04/23/24 10:58 100 MG Physical Exam: General: NAD Neck: Supple. No masses. HEENT: PERRL. Normal lids and conjunctiva. Moist mucous membranes. Oropharynx without lesions, exudates, or excessive erythema. Normal appearance of the external aspects of the nose and ears. Heart: Regular rhythm, normal rate. No murmur. No lower extremity edema. Lungs: Normal respiratory effort. Clear to auscultation bilaterally. No wheezes. No crackles. Abdomen: Soft. Non-tender. Non-distended. No masses or abdominal hernia. MSK: - Strength: 2/5 strength in bilateral lower extremities. - Sensation: Intact to soft touch in all four limbs. - Spinal tenderness noted in the lumbar region. - No digital cyanosis. Normal strength and tone in upper extremities. Skin: Warm and dry, no rashes. Neuro: Alert. No facial droop or slurred speech. Extraocular movements intact. Psych: Appropriate mood. Full affect. Oriented to person, place, time, and situation. laboratory and microbiology Laboratory Tests 04/23/24 05:19 Test 04/23/24 05:19 Range/Units Serum Glucose 110 H 74-106 mg/dL Problem List/Assessment/Plan Problems(with codes): (1) Chronic back pain (2) ESRD (end stage renal disease) (3) Shortness of breath (4) Pneumonia, unspecified organism (5) Acute on chronic systolic heart failure (6) End stage renal disease on dialysis (7) Acute chest pain Problem List/Assessment/Plan ID Problem List: - Prevertebral abscess - Lumbar osteomyelitis/discitis - Bilateral lower extremity weakness - ESRD on dialysis - Seizure disorder - Hypertension COPD - Uncontrolled diabetes mellitus - Coronary artery disease, status post CABG and PTCA - History of pneumonia - History of buttock abscess with MRSA and E. coli infections Assessment This is a 59-year-old male with a past medical history of end-stage renal disease on dialysis, seizure disorder, hypertension, COPD, uncontrolled diabetes mellitus, and coronary artery disease status post CABG and PTCA, who presents with acute chest pain, shortness of breath, bilateral leg pain, inability to walk, and leg weakness. His symptoms have been worsening over the last several months, with health declining since February, necessitating the use of a walker for assistance. He was recently seen at an outside facility two days ago for unclear reasons; prior to this, he had pneumonia. He reports no current shortness of breath, dizziness, chest pain, fevers, or chills. He endorses weight loss and ongoing back pain in the lumbar region. Physical examination is notable for 2/5 strength in the bilateral lower extremities with full sensation, and spinal tenderness in the lumbar region. Laboratory studies reveal WBC 4.7, hemoglobin 10.2, platelet count 238, BUN 39, creatinine 7.2, glucose 126, BNP 1793, troponin 3.19. Chest X-ray shows opacities/infiltrates in both lung bases greater on the left side, markedly improved compared to prior thoracic imaging. MRI of the lumbar spine demonstrates findings most compatible with osteomyelitis/discitis with anterior vertebral abscess. No epidural abscess identified. Grade 1 anterior listhesis of L5 on S1 due to bilateral L5 pars defects. Multilevel degenerative disc disease with posterior facet arthropathy with evidence of nerve impingement at L4-L5 and L5-S1 levels. 04/19: appears to be clinically asymptomatic with exception of lower extremity weakness 04/20: Patients Chest , abdomen and pelvis Ct showed reticular opacities in the peripheral aspects of the lungs , mild super imposed lung opacities vs viral pneumonia similar to finding on 02/17/24. readministration of osteomyelitis L4 L5 associated with abscess , a visualized upper gluteal region is unremarkable with no evidence of ulcer abscess or sacral coxial erosion , their is moderate fecal retention and mild rectal fecal impaction tte wo vegetations 04/21: whitecount has downtred to 1.7 unclear ideology , possibly related to antibiotic use will continue to monitor closely, ESR 102 , [place] 3.43 . patients prior ECG on 03/11 showed significant heart failure with the EF of 35% with left ventricular wall thickeness and calcified aortic valve Plan: - patient does not require an ECG however would have patient after antibiotics are complete pursue a KAMI as outpatient if patient continues to have ongoing signs of septic emboli - recommend 6 weeks IV vancomycin and ceftriaxone dosed at 2 grams Q 12 hours via tunneled catheter line and patient can get vancomycin at dialysis center - follow up with infectious disease in 4 weeks , patient may need a longer coarse of antibiotics and maybe oral treatment until epidural abscess is resolved on MRI - defer electromagnetic leg weakness and need for additional physical therapy and mobility issued to primary service - follow up with neurosurgery as an outpatient and advise patient should additional neurological deficits develop or fevers recur on antibiotics or bowel/urinary incontinents patient should come to the emergency room for further evaluation - Infectious Disease: - Initiate broad-spectrum antibiotics covering likely organisms, including MRSA and E. coli, pending culture results. vancomycin and ceftriaxone 2gq 12hrs. - Obtain blood cultures and inflammatory markers - Neurosurgery Consult: - Evaluate for possible surgical intervention for vertebral abscess and spinal instability.--> defer to dr hodge's who is recommending medical conservative management with IV abx. - Renal: - Continue hemodialysis as scheduled. - Monitor renal function and electrolytes closely. - Neurology: - Monitor for signs of neurological deterioration. - Endocrinology: - Optimize glycemic control for uncontrolled diabetes mellitus. - Pulmonary: - Monitor respiratory status given history of COPD and recent pneumonia. - Provide smoking cessation counseling. - Cardiology: - Monitor cardiac status given elevated BNP and troponin levels. - Consider further cardiac evaluation to rule out acute coronary syndrome. - Physical Therapy: - Assist with mobility and strengthening exercises as tolerated. - Nutrition: - Assess nutritional status; provide dietary support to address weight loss. Isolation Precautions: Standard Plan discussed with: Other [facility] Evaluation [facility] Standard diet Expected Outcomes/Goals: gradual wt loss ENDY CAMP MD Apr 23, 2024 21:14
--- NOTE | 2024-04-23 21:19 | DVHPN2 ---
Consult Progress Note Date Seen: Apr 22, 2024 Subjective Patient reports: Other (breathing well on room air ) Objective vital signs Vital Sign Date Time Temp Pulse Resp B/P (MAP) Pulse Ox O2 Delivery O2 Flow Rate FiO2 04/23/24 17:16 128/80 04/23/24 16:42 98.2 91 16 99 98.2 04/23/24 10:16 Room Air* 0 21 Total Intake and Output 04/22/24 04/22/24 04/23/24 15:00 23:00 07:00 Intake Total 50 ml 400 ml 170 ml Output Total 350 ml Balance 50 ml 400 ml -180 ml medications Current Medications Medications Dose Ordered Sig/Gerard Route Start Time Stop Time Status Last Admin Dose Admin Aspirin 81 mg DAILY PO 04/17/24 10:00 04/23/24 17:16 81 MG Clopidogrel Bisulfate 75 mg DAILY PO 04/17/24 10:00 04/23/24 17:16 75 MG Furosemide 40 mg DAILY IV 04/17/24 10:00 04/23/24 08:39 40 MG Hydralazine HCl 10 mg Q6HP PRN IV 04/16/24 14:00 04/23/24 15:33 10 MG Carvedilol 12.5 mg Q12HR PO 04/16/24 22:00 04/22/24 22:18 12.5 MG Amlodipine Besylate 5 mg DAILY PO 04/17/24 10:00 04/23/24 17:16 5 MG Atorvastatin Calcium 20 mg HS PO 04/16/24 22:00 04/22/24 22:17 20 MG Albuterol 2.5 mg Q4HPRN PRN NEB 04/16/24 14:00 Cancel Ipratropium [place] 0.5 mg Q4HPRN PRN NEB 04/16/24 14:00 Cancel Diagnostic Test (Pha) 1 strip ACHS 04/16/24 17:00 04/23/24 17:10 1 STRIP Insulin Human Regular ACHS SC 04/16/24 17:00 04/22/24 17:31 3 UNITS Dextrose 50 ml UD PRN IV 04/16/24 14:00 Sodium Chloride 10 ml Q8HR IV 04/16/24 14:00 04/23/24 17:10 10 ML Ondansetron HCl 4 mg Q4HP PRN IV 04/16/24 14:00 04/22/24 18:15 4 MG Docusate Sodium 100 mg BIDPRN PRN PO 04/16/24 14:00 04/19/24 16:16 100 MG Acetaminophen 650 mg Q6HP PRN PO 04/16/24 14:00 Sevelamer HCl 800 mg TIDWM PO 04/16/24 18:00 04/23/24 18:30 800 MG Multivit/Ca Carb/ B Cmplx/FA/Prenat 1 tab DAILY PO 04/17/24 10:00 04/23/24 17:16 1 TAB Nitroglycerin 0.4 mg Q5MINP PRN SL 04/16/24 16:30 Morphine Sulfate 2 mg Q30M PRN IV 04/16/24 16:30 04/21/24 09:44 2 MG Meropenem 50 ml @ 17 mls/hr HS IV 04/18/24 22:00 Cancel Daptomycin / Sodium Chloride 50 ml @ 100 mls/hr TUTHSA IV 04/19/24 21:00 UNV Vancomycin HCl 0 ml @ 0 mls/hr UD IV 04/18/24 21:30 Acetaminophen/ Hydrocodone Bitart 2 tab Q6HP PRN PO 04/19/24 11:00 04/19/24 21:15 2 TAB Albuterol 2.5 mg Q4HPRN PRN NEB 04/19/24 13:30 04/23/24 08:55 2.5 MG Ipratropium [place] 0.5 mg Q4HPRN PRN NEB 04/19/24 13:30 04/23/24 08:55 0.5 MG Ceftriaxone Sodium/Dextrose 50 ml @ 50 mls/hr Q12HR IV 04/20/24 10:00 04/23/24 08:39 50 MLS/HR Morphine Sulfate 2 mg Q4HPRN PRN IV 04/21/24 11:30 04/23/24 09:53 2 MG Diazepam 5 mg DAILY PRN PO 04/21/24 16:30 04/23/24 10:58 5 MG Gabapentin 100 mg TID PO 04/21/24 22:00 04/23/24 10:58 100 MG Physical Exam: General: NAD Neck: Supple. No masses. HEENT: PERRL. Normal lids and conjunctiva. Moist mucous membranes. Oropharynx without lesions, exudates, or excessive erythema. Normal appearance of the external aspects of the nose and ears. Heart: Regular rhythm, normal rate. No murmur. No lower extremity edema. Lungs: Normal respiratory effort. Clear to auscultation bilaterally. No wheezes. No crackles. Abdomen: Soft. Non-tender. Non-distended. No masses or abdominal hernia. MSK: - Strength: 2/5 strength in bilateral lower extremities. - Sensation: Intact to soft touch in all four limbs. - Spinal tenderness noted in the lumbar region. - No digital cyanosis. Normal strength and tone in upper extremities. Skin: Warm and dry, no rashes. Neuro: Alert. No facial droop or slurred speech. Extraocular movements intact. Psych: Appropriate mood. Full affect. Oriented to person, place, time, and situation. laboratory and microbiology Laboratory Tests 04/23/24 05:19 Test 04/23/24 05:19 Range/Units Serum Glucose 110 H 74-106 mg/dL Problem List/Assessment/Plan Problems(with codes): (1) Chronic back pain (2) ESRD (end stage renal disease) (3) Shortness of breath (4) Pneumonia, unspecified organism (5) Acute on chronic systolic heart failure (6) End stage renal disease on dialysis (7) Acute chest pain (8) Inability to walk (9) Bilateral leg weakness Problem List/Assessment/Plan ID Problem List: - Prevertebral abscess - Lumbar osteomyelitis/discitis - Bilateral lower extremity weakness - ESRD on dialysis - Seizure disorder - Hypertension COPD - Uncontrolled diabetes mellitus - Coronary artery disease, status post CABG and PTCA - History of pneumonia - History of buttock abscess with MRSA and E. coli infections Assessment This is a 59-year-old male with a past medical history of end-stage renal disease on dialysis, seizure disorder, hypertension, COPD, uncontrolled diabetes mellitus, and coronary artery disease status post CABG and PTCA, who presents with acute chest pain, shortness of breath, bilateral leg pain, inability to walk, and leg weakness. His symptoms have been worsening over the last several months, with health declining since February, necessitating the use of a walker for assistance. He was recently seen at an outside facility two days ago for unclear reasons; prior to this, he had pneumonia. He reports no current shortness of breath, dizziness, chest pain, fevers, or chills. He endorses weight loss and ongoing back pain in the lumbar region. Physical examination is notable for 2/5 strength in the bilateral lower extremities with full sensation, and spinal tenderness in the lumbar region. Laboratory studies reveal WBC 4.7, hemoglobin 10.2, platelet count 238, BUN 39, creatinine 7.2, glucose 126, BNP 1793, troponin 3.19. Chest X-ray shows opacities/infiltrates in both lung bases greater on the left side, markedly improved compared to prior thoracic imaging. MRI of the lumbar spine demonstrates findings most compatible with osteomyelitis/discitis with anterior vertebral abscess. No epidural abscess identified. Grade 1 anterior listhesis of L5 on S1 due to bilateral L5 pars defects. Multilevel degenerative disc disease with posterior facet arthropathy with evidence of nerve impingement at L4-L5 and L5-S1 levels. 04/19: appears to be clinically asymptomatic with exception of lower extremity weakness 04/20: Patients Chest , abdomen and pelvis Ct showed reticular opacities in the peripheral aspects of the lungs , mild super imposed lung opacities vs viral pneumonia similar to finding on 02/17/24. readministration of osteomyelitis L4 L5 associated with abscess , a visualized upper gluteal region is unremarkable with no evidence of ulcer abscess or sacral coxial erosion , their is moderate fecal retention and mild rectal fecal impaction tte wo vegetations 04/21: whitecount has downtred to 1.7 unclear ideology patients heart failure diagnosis is new with calcification of aortic valve 04/22: patients heart failure diagnosis is new Plan: - would reach out to computer consultant to see if patient would benefit from a KAMI - recommend 6 weeks IV vancomycin and ceftriaxone dosed at 2 grams Q 12 hours via tunneled catheter line and patient can get vancomycin at dialysis center - follow up with infectious disease in 4 weeks , patient may need a longer coarse of antibiotics and maybe oral treatment until epidural abscess is resolved on MRI - defer electromagnetic leg weakness and need for additional physical therapy and mobility issued to primary service - follow up with neurosurgery as an outpatient and advise patient should additional neurological deficits develop or fevers recur on antibiotics or bowel/urinary incontinents patient should come to the emergency room for further evaluation - Infectious Disease: - Initiate broad-spectrum antibiotics covering likely organisms, including MRSA and E. coli, pending culture results. vancomycin and ceftriaxone 2gq 12hrs. - Obtain blood cultures and inflammatory markers - Neurosurgery Consult: - Evaluate for possible surgical intervention for vertebral abscess and spinal instability.--> defer to dr hodge's who is recommending medical conservative management with IV abx. - Renal: - Continue hemodialysis as scheduled. - Monitor renal function and electrolytes closely. - Neurology: - Monitor for signs of neurological deterioration. - Endocrinology: - Optimize glycemic control for uncontrolled diabetes mellitus. - Pulmonary: - Monitor respiratory status given history of COPD and recent pneumonia. - Provide smoking cessation counseling. - Cardiology: - Monitor cardiac status given elevated BNP and troponin levels. - Consider further cardiac evaluation to rule out acute coronary syndrome. - Physical Therapy: - Assist with mobility and strengthening exercises as tolerated. - Nutrition: - Assess nutritional status; provide dietary support to address weight loss. Isolation Precautions: Standard Plan discussed with: Other [facility]ary Evaluation [facility] low [facility] Standard diet Expected Outcomes/Goals: gradual wt loss ENDY CAMP MD Apr 23, 2024 21:19
[2024-04-24] VITALS (12 sets, daily range): BP systolic 100–184; BP diastolic 62–83; PULSE 62–98; RESP 16–19; TEMP 98.1–99; O2SAT 93–99
[2024-04-24 06:41] LABS: Hematocrit 30.8 % (41.0-53.0); Hemoglobin 10.1 g/dL (13.5-17.5); Mean Corpuscular Hemoglobin 30.2 pg (28.0-32.0); Mean Corpuscular Hgb Conc. 32.9 g/dL (32.0-36.0); Mean Corpuscular Volume 91.7 fL (80.0-100.0); Platelet Count (auto) 216 10^3/uL (140-450); Red Blood Cells 3.36 10^6/uL (4.5-5.90); Red Cell Distribution Width 16.4 % (11.8-14.3); White Blood Cell 2.2 10^3/uL (4.4-10.8)
[2024-04-24 07:00] LABS: Basophils % (manual) 0 (0.0-2.0); Blast Cells 0; Metamyelocytes % 0; Myelocytes % 0; Promyelocytes % 0; Reactive Lymphocytes 0
[2024-04-24] MEDS: SODIUM CHL 0.9% 1000 ML BAG XX ONE (07:00)
[2024-04-24 07:56] LABS: Band Neutrophils % (manual) 1; Lymphocytes % (manual) 25 (10.0-50.0); Monocytes % (manual) 50 (0-12)
[2024-04-24 07:57] LABS: Eosinophils % (manual) 10 (0-7); Platelet Estimate Adequate
--- NOTE | 2024-04-24 11:09 | DVHPN2 ---
Subjective Since this morning he has become more confused and restless He is not able to give a very good history due to severe pain in his back Changes from previous H/P or p: Changes Eyes: No Pain, No Vision change, No Conjunctivae inflammation, No Eyelid inflammation, No Other, No Redness ENT: No Ear pain, No Ear discharge, No Nose pain, No Nose discharge, No Nose congestion, No Mouth pain, No Mouth swelling, No Throat pain, No Throat swelling, No Other Cardiovascular: No Chest Pain, No Palpitations, No Orthopnea, No Paroxysmal Noc. Dyspnea, No Edema, No Lt Headedness, No Other Respiratory: No Cough, No Dry, No Shortness of breath, No SOB with excertion, No Wheezing, No Hemoptysis, No Pleuritic Pain, No Sputum, No Other Gastrointestinal: No Nausea, No Vomiting, No Abdominal Pain, No Diarrhea, No Constipation, No Melena, No Hematochezia, No Other Genitourinary: No Dysuria, No Frequency, No Incontinence, No Hematuria, No Retention, No Other Musculoskeletal: other (Bilateral leg weakness); No neck pain, No shoulder pain, No arm pain, No back pain, No hand pain; leg pain; No foot pain Skin: No Rash, No Lesions, No Jaundice, No Bruising, No Other Objective Vitals Vital Signs Date Time Temp Pulse Resp B/P (MAP) Pulse Ox O2 Delivery O2 Flow Rate FiO2 04/24/24 08:42 98.1 82 16 184/83 (116) 98 98.1 04/23/24 21:11 Room Air* 0 21 Intake/Output Intake and Output 04/24/24 07:00 Intake Total 900 ml Output Total 600 ml Balance 300 ml Intake Oral 900 ml Output Urine Total 600 ml # Voids 2 General Appearance: Alert, Oriented X3, Cooperative Lungs: Clear to auscultation, Normal air movement Cardiovascular: Regular rate, Normal S1 Abdomen: Normal bowel sounds, Soft Extremities: No edema Medications Current Medications Medications Dose Ordered Sig/Gerard Route Start Time Stop Time Status Last Admin Dose Admin Aspirin 81 mg DAILY PO 04/17/24 10:00 04/23/24 17:16 81 MG Clopidogrel Bisulfate 75 mg DAILY PO 04/17/24 10:00 04/23/24 17:16 75 MG Furosemide 40 mg DAILY IV 04/17/24 10:00 04/23/24 08:39 40 MG Hydralazine HCl 10 mg Q6HP PRN IV 04/16/24 14:00 04/24/24 08:06 10 MG Carvedilol 12.5 mg Q12HR PO 04/16/24 22:00 04/23/24 22:28 12.5 MG Amlodipine Besylate 5 mg DAILY PO 04/17/24 10:00 04/23/24 17:16 5 MG Atorvastatin Calcium 20 mg HS PO 04/16/24 22:00 04/23/24 22:27 20 MG Albuterol 2.5 mg Q4HPRN PRN NEB 04/16/24 14:00 Cancel Ipratropium [place] 0.5 mg Q4HPRN PRN NEB 04/16/24 14:00 Cancel Diagnostic Test (Pha) 1 strip ACHS 04/16/24 17:00 04/24/24 10:35 1 STRIP Insulin Human Regular ACHS SC 04/16/24 17:00 04/23/24 22:46 3 UNITS Dextrose 50 ml UD PRN IV 04/16/24 14:00 Sodium Chloride 10 ml Q8HR IV 04/16/24 14:00 04/24/24 10:36 10 ML Ondansetron HCl 4 mg Q4HP PRN IV 04/16/24 14:00 04/22/24 18:15 4 MG Docusate Sodium 100 mg BIDPRN PRN PO 04/16/24 14:00 04/19/24 16:16 100 MG Acetaminophen 650 mg Q6HP PRN PO 04/16/24 14:00 Sevelamer HCl 800 mg TIDWM PO 04/16/24 18:00 04/24/24 09:11 800 MG Multivit/Ca Carb/ B Cmplx/FA/Prenat 1 tab DAILY PO 04/17/24 10:00 04/23/24 17:16 1 TAB Nitroglycerin 0.4 mg Q5MINP PRN SL 04/16/24 16:30 Morphine Sulfate 2 mg Q30M PRN IV 04/16/24 16:30 04/24/24 03:43 2 MG Meropenem 50 ml @ 17 mls/hr HS IV 04/18/24 22:00 Cancel Daptomycin / Sodium Chloride 50 ml @ 100 mls/hr TUTHSA IV 04/19/24 21:00 UNV Vancomycin HCl 0 ml @ 0 mls/hr UD IV 04/18/24 21:30 Acetaminophen/ Hydrocodone Bitart 2 tab Q6HP PRN PO 04/19/24 11:00 04/19/24 21:15 2 TAB Albuterol 2.5 mg Q4HPRN PRN NEB 04/19/24 13:30 04/23/24 08:55 2.5 MG Ipratropium [place] 0.5 mg Q4HPRN PRN NEB 04/19/24 13:30 04/23/24 08:55 0.5 MG Ceftriaxone Sodium/Dextrose 50 ml @ 50 mls/hr Q12HR IV 04/20/24 10:00 04/23/24 22:31 50 MLS/HR Morphine Sulfate 2 mg Q4HPRN PRN IV 04/21/24 11:30 04/24/24 08:01 2 MG Diazepam 5 mg DAILY PRN PO 04/21/24 16:30 04/23/24 10:58 5 MG Gabapentin 100 mg TID PO 04/21/24 22:00 04/24/24 06:47 100 MG Cyclobenzaprine HCl 10 mg Q8HPRN PRN PO 04/24/24 10:30 UNV Laboratory Results Laboratory Tests 04/23/24 05:19 04/24/24 05:30 Urinalysis Test 04/16/24 03:30 Urine Color Light-yellow (Yellow) Urine Clarity Clear (Clear) Urine pH 8.5 (5.0-9.0) Urine Specific [place] 1.012 (1.001-1.035) Urine Protein 3+ (Negative) H Urine Ketones Negative (Negative) Urine Blood Negative /uL (Negative) Urine Nitrite Negative (Negative) Urine Bilirubin Negative (Negative) Urine Urobilinogen Normal mg/dL (Negative) Urine Leukocyte Esterase Trace /uL (Negative) Urine RBC 2 /hpf (0 - 3) Urine Microscopic WBC 10 /HPF (0-3) H Urine Squamous Epithelial Cells Few /hpf (<5) Urine Bacteria None seen /hpf (None Seen) Urine Glucose 2+ mg/dL (Normal) H Microbiology Microbiology Date/Time Source Procedure Growth Status 04/19/24 21:32 Nose MRSA Screen - Final Complete 04/19/24 19:31 Blood Blood Culture - Preliminary NO GROWTH AFTER 72 HOURS OF INCUBATION. Resulted Assessment/Plan Assessment/Plan Intractable lower back pain Hyperkalemia End-stage renal disease on hemodialysis Generalized weakness Possible underlying pneumonia Chronic anemia of chronic kidney disease Chest pain most likely noncardiac Coronary artery disease status post PTCA x6 on aspirin and Plavix Acute on chronic heart failure with reduced ejection fraction last ejection fraction 35% Obesity Tobacco use Type 2 diabetes Dyslipidemia Hypertension Plan Get a CT scan of the lumbar spine to rule out abscess since the patient says he was diagnosed with an abscess lately and was given oral Cipro from [facility] Hemodialysis to be done today Nephrology consult Cardiology consult Pain management with morphine and [place] as needed Physical therapy evaluation Full code Discussed with the the patient and with his over the phone Advance directives discussed for 20 minutes 04/18/2024: Lumbar spine L4-L5 diskitis with anterior prevertebral abscess Degenerative disc disease of the lumbar spine End-stage renal disease Hyperkalemia Plan: Start broad-spectrum antibiotics with meropenem and vancomycin Infectious Disease consultation Spinal surgery consultation Hemodialysis per nephrology Repeat the labs Monitor the patient closely 04/19/2024: Continue IV antibiotics ID consult Spinal surgery recommended conservative treatment with IV antibiotics If the patient will need only IV vancomycin then he can get it at the dialysis Treatment plan discussed with the patient and his over the phone He is complaining of more pain in his back and not relieved by the current regimen and therefore we will increase morphine to 4 mg IV every 4 hours p.r.n. and increase the [place] to 2 tablets q.6 hours p.r.n. The rest of the management will depend on the hospital course Hemodialysis per nephrology 04/20/2024: Continue IV antibiotics with Rocephin and vancomycin Discussed with ID and Nephrology, since the patient can not have a PICC line, we will do a tunneled central line by IR Patient can then be discharged home on IV vancomycin with dialysis and IV Rocephin daily by home health Continue pain management The rest of the management will depend on the hospital course 04/21/2024: Continue IV antibiotics Tunneled central line to be done on Tuesday Lower the dose of morphine to minimize the side effects [place] as needed Discharge planning once the central line is done and IV antibiotics are ordered Neutropenia: Place on neutropenic precautions Hyperkalemia: Dialysis per Nephrology 04/22/2024: Continue the current regimen of IV antibiotics Waiting for the central line to be done Discharge planning was central line is done Hemodialysis per nephrology 04/23/24: Order home health for IV antibiotics: Vanco with HD + Rocephin 2 gm q 12 h x 6 weeks Tunnelled central line pending Pain control Continue physical therapy HD per nephrology 04/24/2024: Confusion, delirium: The patient has a sitter at the bedside, discontinue morphine and [place], give Dilaudid low dose instead Back pain: Dilaudid for pain control, Flexeril p.r.n. 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
[2024-04-24] MEDS: CYCLOBENZAPRINE HCL 10 MG TAB PO PRN (13:05)
[2024-04-24] MEDS: HYDROmorphone HCL 2 MG/ML VL/or syr IV PRN (15:29)
--- NOTE | 2024-04-24 15:48 | DVHPN2 ---
Progress Note - Dictate Date Seen: Apr 24, 2024 Has the PT tested + for MRSA If YES, has PT been informed?: No Medical Necessity Reason Pt with a Central, PICC or Fol: No Subjective no acute issues overnight More confused and agitated today vital signs Vital Sign Date Time Temp Pulse Resp B/P (MAP) Pulse Ox O2 Delivery O2 Flow Rate FiO2 04/24/24 15:29 92 18 100/72 04/24/24 15:04 96 Room Air* 0 21 04/24/24 08:42 98.1 98.1 Total Intake and Output 04/23/24 04/23/24 04/24/24 15:00 23:00 07:00 Intake Total 0 ml 900 ml Output Total 600 ml Balance -600 ml 900 ml medications Current Medications Medications Dose Ordered Sig/Gerard Route Start Time Stop Time Status Last Admin Dose Admin Aspirin 81 mg DAILY PO 04/17/24 10:00 04/23/24 17:16 81 MG Clopidogrel Bisulfate 75 mg DAILY PO 04/17/24 10:00 04/24/24 13:05 75 MG Furosemide 40 mg DAILY IV 04/17/24 10:00 04/23/24 08:39 40 MG Hydralazine HCl 10 mg Q6HP PRN IV 04/16/24 14:00 04/24/24 08:06 10 MG Carvedilol 12.5 mg Q12HR PO 04/16/24 22:00 04/23/24 22:28 12.5 MG Amlodipine Besylate 5 mg DAILY PO 04/17/24 10:00 04/23/24 17:16 5 MG Atorvastatin Calcium 20 mg HS PO 04/16/24 22:00 04/23/24 22:27 20 MG Albuterol 2.5 mg Q4HPRN PRN NEB 04/16/24 14:00 Cancel Ipratropium [place] 0.5 mg Q4HPRN PRN NEB 04/16/24 14:00 Cancel Diagnostic Test (Pha) 1 strip ACHS 04/16/24 17:00 04/24/24 10:35 1 STRIP Insulin Human Regular ACHS SC 04/16/24 17:00 04/23/24 22:46 3 UNITS Dextrose 50 ml UD PRN IV 04/16/24 14:00 Sodium Chloride 10 ml Q8HR IV 04/16/24 14:00 04/24/24 10:36 10 ML Ondansetron HCl 4 mg Q4HP PRN IV 04/16/24 14:00 04/22/24 18:15 4 MG Docusate Sodium 100 mg BIDPRN PRN PO 04/16/24 14:00 04/19/24 16:16 100 MG Acetaminophen 650 mg Q6HP PRN PO 04/16/24 14:00 Sevelamer HCl 800 mg TIDWM PO 04/16/24 18:00 04/24/24 09:11 800 MG Multivit/Ca Carb/ B Cmplx/FA/Prenat 1 tab DAILY PO 04/17/24 10:00 04/23/24 17:16 1 TAB Nitroglycerin 0.4 mg Q5MINP PRN SL 04/16/24 16:30 Meropenem 50 ml @ 17 mls/hr HS IV 04/18/24 22:00 Cancel Daptomycin / Sodium Chloride 50 ml @ 100 mls/hr TUTHSA IV 04/19/24 21:00 UNV Vancomycin HCl 0 ml @ 0 mls/hr UD IV 04/18/24 21:30 Albuterol 2.5 mg Q4HPRN PRN NEB 04/19/24 13:30 04/23/24 08:55 2.5 MG Ipratropium [place] 0.5 mg Q4HPRN PRN NEB 04/19/24 13:30 04/23/24 08:55 0.5 MG Ceftriaxone Sodium/Dextrose 50 ml @ 50 mls/hr Q12HR IV 04/20/24 10:00 04/24/24 13:05 50 MLS/HR Diazepam 5 mg DAILY PRN PO 04/21/24 16:30 04/23/24 10:58 5 MG Gabapentin 100 mg TID PO 04/21/24 22:00 04/24/24 06:47 100 MG Cyclobenzaprine HCl 10 mg Q8HPRN PRN PO 04/24/24 10:30 04/24/24 13:05 10 MG Hydromorphone HCl 0.25 mg Q4HPRN PRN IV 04/24/24 11:15 04/24/24 15:29 0.25 MG objective HEENT: No evidence of JVD, no oral ulcers. Pulmonary: Lungs are clear on auscultation bilaterally Cardiovascular S1-S2, no S3 or S4 Abdomen: Bowel sounds positive, soft no rebound tenderness Skin: No rash Neurological: agitated laboratory and microbiology Laboratory Tests 04/24/24 05:30 04/23/24 05:19 Test 04/23/24 05:19 Range/Units Serum Glucose 110 H 74-106 mg/dL Problem List 1. End-stage renal disease on hemodialysis 2. Chest pain 3. Pneumonia 4. Hypertension 5. L4-L5 spondylodiscitis and anterior prevertebral abscess 6. Anemia 7. CHF 8. Diabetes type 2 9. Intractable back pain 10. CAD status post multiple stentings Assessment/Plan Hemodialysis TTS schedule [place] on non dialysis days As patient is agitated will postpone HD for tomorrow . IV antibiotics as per ID . Central line in place Awaiting arrangement for home antibiotics Dietary Evaluation Review Comments: CCHO-60 low fat low cholesterol renal Standard diet Expected Outcomes/Goals: gradual wt loss Plan discussed with: Other NETTIE LIVINGSTON MD Apr 24, 2024 15:48
[2024-04-24] MEDS: EPOETIN ALFA-EPBX 4,000 UNIT/ML VIAL SC ONE (21:00)
[2024-04-25] VITALS (10 sets, daily range): BP systolic 117–184; BP diastolic 46–88; PULSE 80–114; RESP 14–20; TEMP 97.7–98.3; O2SAT 93–98
[2024-04-25] MEDS: SODIUM CHL 0.9% 1000 ML BAG XX ONE (07:00)
[2024-04-25] MEDS: HALOPERIDOL LACTATE 5 MG/ML INJ VIAL IM ONE (10:01)
--- NOTE | 2024-04-25 11:56 | DVHPN2 ---
Subjective He has been a very confused and restless since yesterday morning so hemodialysis was not done Dialysis he is here to do it now but he needs to be sedated and restrained Changes from previous H/P or p: Changes Eyes: No Pain, No Vision change, No Conjunctivae inflammation, No Eyelid inflammation, No Other, No Redness ENT: No Ear pain, No Ear discharge, No Nose pain, No Nose discharge, No Nose congestion, No Mouth pain, No Mouth swelling, No Throat pain, No Throat swelling, No Other Cardiovascular: No Chest Pain, No Palpitations, No Orthopnea, No Paroxysmal Noc. Dyspnea, No Edema, No Lt Headedness, No Other Respiratory: No Cough, No Dry, No Shortness of breath, No SOB with excertion, No Wheezing, No Hemoptysis, No Pleuritic Pain, No Sputum, No Other Gastrointestinal: No Nausea, No Vomiting, No Abdominal Pain, No Diarrhea, No Constipation, No Melena, No Hematochezia, No Other Genitourinary: No Dysuria, No Frequency, No Incontinence, No Hematuria, No Retention, No Other Musculoskeletal: other (Bilateral leg weakness); No neck pain, No shoulder pain, No arm pain, No back pain, No hand pain; leg pain; No foot pain Skin: No Rash, No Lesions, No Jaundice, No Bruising, No Other Objective Vitals Vital Signs Date Time Temp Pulse Resp B/P (MAP) Pulse Ox O2 Delivery O2 Flow Rate FiO2 04/25/24 05:56 97 Room Air 0.0 04/25/24 05:56 21 04/25/24 05:00 97.8 81 18 124/46 (72) 97.8 Intake/Output Intake and Output 04/25/24 07:00 Intake Total 150 ml Balance 150 ml Intake Oral 100 ml IV Total 50 ml # Voids 1 General Appearance: Alert, Oriented X3, Cooperative Lungs: Clear to auscultation, Normal air movement Cardiovascular: Regular rate, Normal S1 Abdomen: Normal bowel sounds, Soft Extremities: No edema Medications Current Medications Medications Dose Ordered Sig/Gerard Route Start Time Stop Time Status Last Admin Dose Admin Aspirin 81 mg DAILY PO 04/17/24 10:00 04/23/24 17:16 81 MG Clopidogrel Bisulfate 75 mg DAILY PO 04/17/24 10:00 04/24/24 13:05 75 MG Furosemide 40 mg DAILY IV 04/17/24 10:00 04/23/24 08:39 40 MG Hydralazine HCl 10 mg Q6HP PRN IV 04/16/24 14:00 04/24/24 18:24 10 MG Carvedilol 12.5 mg Q12HR PO 04/16/24 22:00 04/24/24 21:25 12.5 MG Amlodipine Besylate 5 mg DAILY PO 04/17/24 10:00 04/23/24 17:16 5 MG Atorvastatin Calcium 20 mg HS PO 04/16/24 22:00 04/24/24 21:23 20 MG Albuterol 2.5 mg Q4HPRN PRN NEB 04/16/24 14:00 Cancel Ipratropium [place] 0.5 mg Q4HPRN PRN NEB 04/16/24 14:00 Cancel Diagnostic Test (Pha) 1 strip ACHS 04/16/24 17:00 04/25/24 07:05 1 STRIP Insulin Human Regular ACHS SC 04/16/24 17:00 04/23/24 22:46 3 UNITS Dextrose 50 ml UD PRN IV 04/16/24 14:00 Sodium Chloride 10 ml Q8HR IV 04/16/24 14:00 04/25/24 07:04 10 ML Ondansetron HCl 4 mg Q4HP PRN IV 04/16/24 14:00 04/22/24 18:15 4 MG Docusate Sodium 100 mg BIDPRN PRN PO 04/16/24 14:00 04/19/24 16:16 100 MG Acetaminophen 650 mg Q6HP PRN PO 04/16/24 14:00 Sevelamer HCl 800 mg TIDWM PO 04/16/24 18:00 04/24/24 09:11 800 MG Multivit/Ca Carb/ B Cmplx/FA/Prenat 1 tab DAILY PO 04/17/24 10:00 04/23/24 17:16 1 TAB Nitroglycerin 0.4 mg Q5MINP PRN SL 04/16/24 16:30 Meropenem 50 ml @ 17 mls/hr HS IV 04/18/24 22:00 Cancel Daptomycin / Sodium Chloride 50 ml @ 100 mls/hr TUTHSA IV 04/19/24 21:00 UNV Vancomycin HCl 0 ml @ 0 mls/hr UD IV 04/18/24 21:30 Ceftriaxone Sodium/Dextrose 50 ml @ 50 mls/hr Q12HR IV 04/20/24 10:00 04/24/24 21:22 50 MLS/HR Diazepam 5 mg DAILY PRN PO 04/21/24 16:30 04/23/24 10:58 5 MG Gabapentin 100 mg TID PO 04/21/24 22:00 04/25/24 07:00 100 MG Cyclobenzaprine HCl 10 mg Q8HPRN PRN PO 04/24/24 10:30 04/24/24 13:05 10 MG Hydromorphone HCl 0.25 mg Q4HPRN PRN IV 04/24/24 11:15 04/24/24 15:29 0.25 MG Diphenhydramine HCl 50 mg ONCE STAT IV 04/25/24 11:49 04/25/24 11:50 UNV Laboratory Results Laboratory Tests 04/23/24 05:19 04/24/24 05:30 Urinalysis Test 04/16/24 03:30 Urine Color Light-yellow (Yellow) Urine Clarity Clear (Clear) Urine pH 8.5 (5.0-9.0) Urine Specific [place] 1.012 (1.001-1.035) Urine Protein 3+ (Negative) H Urine Ketones Negative (Negative) Urine Blood Negative /uL (Negative) Urine Nitrite Negative (Negative) Urine Bilirubin Negative (Negative) Urine Urobilinogen Normal mg/dL (Negative) Urine Leukocyte Esterase Trace /uL (Negative) Urine RBC 2 /hpf (0 - 3) Urine Microscopic WBC 10 /HPF (0-3) H Urine Squamous Epithelial Cells Few /hpf (<5) Urine Bacteria None seen /hpf (None Seen) Urine Glucose 2+ mg/dL (Normal) H Microbiology Microbiology Date/Time Source Procedure Growth Status 04/19/24 21:32 Nose MRSA Screen - Final Complete 04/19/24 19:31 Blood Blood Culture - Final NO GROWTH AFTER 5 DAYS OF INCUBATION. Complete Assessment/Plan Assessment/Plan Intractable lower back pain Hyperkalemia End-stage renal disease on hemodialysis Generalized weakness Possible underlying pneumonia Chronic anemia of chronic kidney disease Chest pain most likely noncardiac Coronary artery disease status post PTCA x6 on aspirin and Plavix Acute on chronic heart failure with reduced ejection fraction last ejection fraction 35% Obesity Tobacco use Type 2 diabetes Dyslipidemia Hypertension Plan Get a CT scan of the lumbar spine to rule out abscess since the patient says he was diagnosed with an abscess lately and was given oral Cipro from [facility] Hemodialysis to be done today Nephrology consult Cardiology consult Pain management with morphine and [place] as needed Physical therapy evaluation Full code Discussed with the the patient and with his over the phone Advance directives discussed for 20 minutes 04/18/2024: Lumbar spine L4-L5 diskitis with anterior prevertebral abscess Degenerative disc disease of the lumbar spine End-stage renal disease Hyperkalemia Plan: Start broad-spectrum antibiotics with meropenem and vancomycin Infectious Disease consultation Spinal surgery consultation Hemodialysis per nephrology Repeat the labs Monitor the patient closely 04/19/2024: Continue IV antibiotics ID consult Spinal surgery recommended conservative treatment with IV antibiotics If the patient will need only IV vancomycin then he can get it at the dialysis Treatment plan discussed with the patient and his over the phone He is complaining of more pain in his back and not relieved by the current regimen and therefore we will increase morphine to 4 mg IV every 4 hours p.r.n. and increase the [place] to 2 tablets q.6 hours p.r.n. The rest of the management will depend on the hospital course Hemodialysis per nephrology 04/20/2024: Continue IV antibiotics with Rocephin and vancomycin Discussed with ID and Nephrology, since the patient can not have a PICC line, we will do a tunneled central line by IR Patient can then be discharged home on IV vancomycin with dialysis and IV Rocephin daily by home health Continue pain management The rest of the management will depend on the hospital course 04/21/2024: Continue IV antibiotics Tunneled central line to be done on Tuesday Lower the dose of morphine to minimize the side effects [place] as needed Discharge planning once the central line is done and IV antibiotics are ordered Neutropenia: Place on neutropenic precautions Hyperkalemia: Dialysis per Nephrology 04/22/2024: Continue the current regimen of IV antibiotics Waiting for the central line to be done Discharge planning was central line is done Hemodialysis per nephrology 04/23/24: Order home health for IV antibiotics: Vanco with HD + Rocephin 2 gm q 12 h x 6 weeks Tunnelled central line pending Pain control Continue physical therapy HD per nephrology 04/24/2024: Confusion, delirium: The patient has a sitter at the bedside, discontinue morphine and [place], give Dilaudid low dose instead Back pain: Dilaudid for pain control, Flexeril p.r.n. Continue IV antibiotics Tunneled central line is done for IV antibiotics at home IV antibiotics ordered for home with home health however the patient is confused now, we will have to wait until he is alert and oriented 4 discharged Hemodialysis per Nephrology 04/25/2024: Delirium: Possible complex seizures History of pseudoseizures Back pain due to spinal abscess Spinal abscess and diskitis on IV antibiotics End-stage renal disease hemodialysis today Neurology consult regarding altered level of conscious Monitor closely Plan discussed with: Patient, Spouse, Other My Orders Orders - SADAF SANTANA MD Procedure Category Date Status Time Speech Evaluation 04/24/24 Logged 13:32 Date of Service: Apr 25, 2024 Billing Provider: SADAF SANTANA MD Common Visit Codes: [id number] INP/OBS CARE(HIGH) SADAF SANTANA MD Apr 25, 2024 11:56
[2024-04-25] MEDS: diphenhdrAMINE HCL 50 MG/1 ML VL IV STA (12:19)
[2024-04-25] MEDS: LORazepam 2MG/ML-1ML VIAL IV ONE (15:00)
[2024-04-25 15:13] LABS: Hematocrit 32.4 % (41.0-53.0); Hemoglobin 10.9 g/dL (13.5-17.5); Mean Corpuscular Hemoglobin 30.2 pg (28.0-32.0); Mean Corpuscular Hgb Conc. 33.7 g/dL (32.0-36.0); Mean Corpuscular Volume 89.5 fL (80.0-100.0); Platelet Count (auto) 252 10^3/uL (140-450); Red Blood Cells 3.61 10^6/uL (4.5-5.90); Red Cell Distribution Width 16.1 % (11.8-14.3); White Blood Cell 2.3 10^3/uL (4.4-10.8)
--- NOTE | 2024-04-25 15:33 | DVH ---
CT HEAD WITHOUT CONTRAST INDICATION: ALOC EXAM DATE: 04/25/2024 03:13 PM COMPARISON: CT HEAD WITHOUT CONTRAST on DOS: 01/10/23 RADIATION DOSE: CTDIvol: 67 mGy, DLP: 1592 mGy*cm PROCEDURE: CT scans of the head were obtained from the vertex to the skull base. Sagittal and coronal reconstructions were provided. All CT scans at this medical facility are performed using dose modulation techniques as appropriate t o a performed exam including the following: Automated exposure control was utilized; adjustment of th e MA and/or KV according to patient size; and use of iterative reconstruction technique. FINDINGS: There is sulcal and ventricular prominence. The brainshows normal morphology and braun-whit e matter differentiation, without intracranial hemorrhage, extra-axial fluid collection, mass effect or acute large vessel infarct. The ventricles are normal in size. The basal cisterns are patent. The skull and visible facial bones are intact. The paranasal sinuses, mastoid air cells and middle ear ca vities are well-aerated. The soft tissues of the scalp are unremarkable. IMPRESSION: No acute intracranial abnormality.
[2024-04-25 15:34] LABS: Folate (Folic Acid) 11.67 ng/mL (>5.38)
[2024-04-25 15:38] LABS: Basophils % (manual) 0 (0.0-2.0); Blast Cells 0; Myelocytes % 0; Promyelocytes % 0; Reactive Lymphocytes 0
[2024-04-25 15:46] LABS: Alanine Aminotransferase 11 U/L (7-40); Albumin 4.6 g/dL (3.2-4.8); Alkaline Phosphatase 86 U/L (46-116); Anion Gap 12 (5-15); BUN/Creatinine Ratio 5.1 (10.0-20.0); Calcium 10.4 mg/dL (8.7-10.4); Carbon Dioxide 28 mmol/L (20-31); Magnesium 2.4 mg/dL (1.6-2.6); Potassium 4.7 mmol/L (3.5-5.1); Sodium 136 mmol/L (136-145)
[2024-04-25 15:47] LABS: Total Protein 7.5 g/dL (5.7-8.2)
[2024-04-25 16:02] LABS: Aspartate Aminotransferase 13 U/L (13-40); Bilirubin, Total 0.3 mg/dL (0.2-1.0); Blood Urea Nitrogen 35 mg/dL (9-23); Chloride 96 mmol/L (98-107); Glucose 124 mg/dL (74-106)
[2024-04-25 16:09] LABS: Band Neutrophils % (manual) 2; Eosinophils % (manual) 8 (0-7); Lymphocytes % (manual) 38 (10.0-50.0); Metamyelocytes % 1; Monocytes % (manual) 30 (0-12); Platelet Estimate Adequate
--- NOTE | 2024-04-25 17:43 | DVHPN2 ---
Progress Note - Dictate Date Seen: Apr 25, 2024 Has the PT tested + for MRSA If YES, has PT been informed?: No Medical Necessity Reason Pt with a Central, PICC or Fol: No Subjective Dialysed today . Was very agitated today morning Sitter at bedside . Continues to be agitated vital signs Vital Sign Date Time Temp Pulse Resp B/P (MAP) Pulse Ox O2 Delivery O2 Flow Rate FiO2 04/25/24 16:46 97.8 96 14 117/83 (94) 96 97.8 04/25/24 10:00 Room Air 0.0 04/25/24 10:00 21 Total Intake and Output 04/24/24 04/24/24 04/25/24 15:00 23:00 07:00 Intake Total 50 ml 0 ml 100 ml Balance 50 ml 0 ml 100 ml medications Current Medications Medications Dose Ordered Sig/Gerard Route Start Time Stop Time Status Last Admin Dose Admin Aspirin 81 mg DAILY PO 04/17/24 10:00 04/23/24 17:16 81 MG Clopidogrel Bisulfate 75 mg DAILY PO 04/17/24 10:00 04/24/24 13:05 75 MG Furosemide 40 mg DAILY IV 04/17/24 10:00 04/23/24 08:39 40 MG Hydralazine HCl 10 mg Q6HP PRN IV 04/16/24 14:00 04/24/24 18:24 10 MG Carvedilol 12.5 mg Q12HR PO 04/16/24 22:00 04/24/24 21:25 12.5 MG Amlodipine Besylate 5 mg DAILY PO 04/17/24 10:00 04/23/24 17:16 5 MG Atorvastatin Calcium 20 mg HS PO 04/16/24 22:00 04/24/24 21:23 20 MG Albuterol 2.5 mg Q4HPRN PRN NEB 04/16/24 14:00 Cancel Ipratropium [place] 0.5 mg Q4HPRN PRN NEB 04/16/24 14:00 Cancel Diagnostic Test (Pha) 1 strip ACHS 04/16/24 17:00 04/25/24 16:47 1 STRIP Insulin Human Regular ACHS SC 04/16/24 17:00 04/23/24 22:46 3 UNITS Dextrose 50 ml UD PRN IV 04/16/24 14:00 Sodium Chloride 10 ml Q8HR IV 04/16/24 14:00 04/25/24 07:04 10 ML Ondansetron HCl 4 mg Q4HP PRN IV 04/16/24 14:00 04/22/24 18:15 4 MG Docusate Sodium 100 mg BIDPRN PRN PO 04/16/24 14:00 04/19/24 16:16 100 MG Acetaminophen 650 mg Q6HP PRN PO 04/16/24 14:00 Sevelamer HCl 800 mg TIDWM PO 04/16/24 18:00 04/25/24 16:52 800 MG Multivit/Ca Carb/ B Cmplx/FA/Prenat 1 tab DAILY PO 04/17/24 10:00 04/23/24 17:16 1 TAB Nitroglycerin 0.4 mg Q5MINP PRN SL 04/16/24 16:30 Meropenem 50 ml @ 17 mls/hr HS IV 04/18/24 22:00 Cancel Daptomycin / Sodium Chloride 50 ml @ 100 mls/hr TUTHSA IV 04/19/24 21:00 UNV Vancomycin HCl 0 ml @ 0 mls/hr UD IV 04/18/24 21:30 Ceftriaxone Sodium/Dextrose 50 ml @ 50 mls/hr Q12HR IV 04/20/24 10:00 04/24/24 21:22 50 MLS/HR Diazepam 5 mg DAILY PRN PO 04/21/24 16:30 04/25/24 16:52 5 MG Gabapentin 100 mg TID PO 04/21/24 22:00 04/25/24 07:00 100 MG Cyclobenzaprine HCl 10 mg Q8HPRN PRN PO 04/24/24 10:30 04/24/24 13:05 10 MG Hydromorphone HCl 0.25 mg Q4HPRN PRN IV 04/24/24 11:15 04/24/24 15:29 0.25 MG objective HEENT: No evidence of JVD, no oral ulcers. Pulmonary: Lungs are clear on auscultation bilaterally Cardiovascular S1-S2, no S3 or S4 Abdomen: Bowel sounds positive, soft no rebound tenderness Skin: No rash Neurological: agitated laboratory and microbiology Laboratory Tests 04/25/24 14:51 Test 04/25/24 14:51 Range/Units Serum Glucose 124 H 74-106 mg/dL Problem List 1. End-stage renal disease on hemodialysis 2. Chest pain 3. Pneumonia 4. Hypertension 5. L4-L5 spondylodiscitis and anterior prevertebral abscess 6. Anemia 7. CHF 8. Diabetes type 2 9. Intractable back pain 10. CAD status post multiple stentings 11.ALOC Assessment/Plan Hemodialysis TTS schedule Neuro evaln continue IV abx Dietary Evaluation Review Comments: CCHO-60 low fat low cholesterol renal Standard diet Expected Outcomes/Goals: gradual wt loss Plan discussed with: Other NETTIE LIVINGSTON MD Apr 25, 2024 17:43
[2024-04-25] MEDS: VANCOMYCIN 750MG KIT 100 ML IV ONE (18:00)
--- NOTE | 2024-04-25 22:08 | DVHINCON2 ---
Date of service: Apr 25, [address] Rush Reason for Consultation ALOC History of Present Illness Mr. Mckee is a 59 years old gentleman with a history of hypertension, coronary artery disease, congestive heart failure, COPD, end-stage kidney failure on hemodialysis, he was brought to the [facility] on 04/15/2024 with a chief company of shortness of breath. At this time, he was awake, keeps moving in the bed, he able to talk and answer questions, but he was only oriented to himself. The patient was said to have a history of nonepileptic seizure, and he was noticed to have abnormal activity in the hospital after this admission. But the details of his seizure history is not obtainable. Gabapentin is in his home medication list ER note 01/10/2023: EMS reports witnesses two pseudoseizures on scene, administrated 2.5mg Versed. Upon ED arrival, patient was seizing and at bedside had stuttered speech. Patient is alert and orientated, was able to explain how he fell, knows where he is at, what year it is, his name, and full medical history. After he came to the hospital, he was found to have diskitis and and anterior prevertebral abscess. He was on antibiotics [phone], the call can not be completed at this time. [phone], no answer. [place] Blood culture, 04/19/2024: No growth Urinalysis, 04/16/2024: WBC: 10, urine leukocyte esterase: Trace WBC/HB/PLT/MCV, 04/21/2024: 1.7/9.7/175/91.6, 04/25/2024: 2.3/10.9/252/89.5 BUN/CR, 04/25/2024: 75/6.82 Liver function tests, 04/25/2024: Unremarkable Hepatitis panel, Vitamin B12, 04/25/2024: 163 Folic acid, 04/25/2024: 11.67 TSH, 04/25/2024: 3.04 CT head, 04/25/2024: No acute intracranial abnormality MRI lumbar spine, 04/18/2024: 1. Findings most compatible with L4-L5 spondylodiscitis an anterior prevertebral abscess. Recommend neurosurgical consultation. No epidural abscess identified in the unenhanced study. 2. Grade 1 anterolisthesis at L5-S1 due to bilateral L5 pars defects. 3. Multilevel degenerative disc disease and posterior facet arthropathy with evidence of nerve impingement at L4-L5 and L5-S1 levels Past Medical History Hypertension, coronary artery disease, congestive heart failure, COPD, end-stage renal failure on hemodialysis, Past Surgical History Appendectomy, cholecystectomy, CABG Family History: Diabetes mellitus G8 MOTHER, Onset:Unknown G8 FATHER, Onset:Unknown Fibromyalgia G8 MOTHER Hypertension G8 MOTHER G8 FATHER, Onset:Unknown Family History Hypertension, diabetes, fibromyalgia Social History He smokes Allergies: Coded Allergies: Penicillins (Verified Allergy, Unknown, 09/19/23) Tetanus Toxoid (Verified Allergy, Unknown, 09/19/23) Home Meds Active Scripts Prednisone (Prednisone) 20 Mg Tab, 40 MG PO DAILY for 5 Days, #10 MG 0 Refills Prov:BILLY DAVISON MD 03/12/24 Levofloxacin Hemihydrate (LEVOFLOXACIN) 750 Mg Tab, 1 TAB PO DAILY for 1 Day, #1 TAB 0 Refills Prov:BILLY DAVISON MD 03/12/24 Levofloxacin Hemihydrate (LEVOFLOXACIN) 500 Mg Tab, 1 TAB PO EOD for 7 Days, #4 TAB Prov:BILLY DAVISON MD 03/12/24 Sodium Zirconium Cyclosilicate (Lokelma) 10 Gm Hernandez, 10 GM PO DAILY, #10 PACK Prov:ENDY CORTÉS MD 03/04/24 Clopidogrel Bisulfate (CLOPIDOGREL) 75 Mg Tab, 75 MG PO DAILY for 30 Days, #30 TAB Prov:LEÓN COLLINS MD 08/16/23 Reported Medications Colchicine (Colchicine) Pow, 0.6 MG PO Q12HR for 30 Days, MG 04/17/24 Ondansetron HCl (Ondansetron) 4 Mg Tab, 4 MG PO, TAB 04/17/24 Metoprolol Succinate (Metoprolol Succinate Er) 100 Mg Tab, 1 TAB PO DAILY 04/17/24 Clonidine Hydrochloride (Clonidine Hcl) 0.1 Mg Tab, 1 TAB PO DAILY for blood pressure 04/17/24 Irbesartan (Avapro) 300 Mg Tab, 1 TAB PO DAILY, #30 TAB 5 Refills 03/04/24 Furosemide (Lasix) 40 Mg Tab, 40 MG PO DAILY, TAB 03/04/24 Amlodipine Besylate (NORVASC TABLET) 5 Mg Tb, 2 TAB PO DAILY, #30 TAB 5 Refills 03/04/24 Isosorbide Mononitrate (Isosorbide Mononitrate Er) 30 Mg Tab, 30 MG PO DAILY for CAD, MG 09/19/23 Insulin Glargine (Basaglar Kwikpen) 100 Unit/Ml Inj, 100 UNIT SC for DIABETES, INJ 09/19/23 Calcium Acetate (Phosphate Bin (Calcium Acetate) 667 Mg Cap, 667 MG PO TIDWM for DIALYSIS, MG 09/19/23 Sodium Zirconium Cyclosilicate (Lokelma) 5 Gm Hernandez, 5 GM PO DAILY for HYPERKALEMIA, PACK 09/19/23 Atorvastatin Calcium (ATORVASTATIN CALCIUM) 40 Mg Tab, 1 TAB PO DAILY for HIGH CHOLESTEROL, #30 TAB 5 Refills 09/19/23 Mrjuhbxixw-Pupddvoghigdqs-Zwfb (Breztri Aerosphere 160-9-4.8 Mcg/Act) 1 Aer Aer, 1 AER IN BID for COPD, AER 09/19/23 Albuterol Sulfate (Ventolin) 2.5 Mg/3 Ml Nb, 2.5 MG NEB Q4HP PRN for SHORTNESS OF BREATH, INH 09/19/23 Ranolazine (Ranolazine ER) 500 Mg Tab, 500 MG PO BID for CAD, TAB 09/19/23 Metoprolol Succinate (Metoprolol Succinate Er) 200 Mg Tab, 1 TAB PO DAILY for HTN 08/16/23 Diazepam (VALIUM TABLET) 5 Mg Tb, 5 MG GT PRN PRN for ANXIETY, TAB 08/14/23 Hydralazine Hcl (Hydralazine Hcl) 100 Mg Tab, 1 TAB PO TID, #90 TAB 5 Refills 08/14/23 Gabapentin (Gabapentin) 100 Mg Cap, 1 CAP PO TID, #90 CAP 2 Refills 08/14/23 Pantoprazole Sodium Sesquihydr (Protonix) 40 Mg Tab, 40 MG PO QAM, #30 TAB 08/14/23 Aspirin (Aspir-81) 81 Mg Tab, 1 TAB PO QAM, #30 TAB 5 Refills 08/14/23 Allopurinol (ZYLOPRIM TABLET) 100 Mg Tb, 1 TAB PO QAM, #30 TAB 5 Refills 08/14/23 Current Medications Current Medications Medications (Trade) Dose Ordered Sig/Gerard Route PRN Reason Start Time Stop Time Status Last Admin Diphenhydramine HCl (Benadryl Injection) 50 mg ONCE STAT IV 04/25/24 11:49 04/25/24 12:15 DC 04/25/24 12:19 Review of Systems Unobtainable Vital Signs Vital Signs Date Time Temp Pulse Resp B/P (MAP) Pulse Ox O2 Delivery O2 Flow Rate FiO2 04/25/24 21:00 98.3 112 18 148/88 (108) 98 98.3 04/25/24 10:00 Room Air 0.0 04/25/24 10:00 21 Physical Exam GENERAL EXAM: General: the patient is well developed and nourished. No acute distress. HEENT: Normocephalic, neck is supple, no carotid bruits. No mass RESPIRATORY: Normal respiratory effort with symmetrical lung expansion. Lungs clear to auscultation. CARDIOVASCULAR: Regular rate and rhythm with no murmurs. S1, S2. ABDOMEN: Soft, nontender, normal bowel sound MUSCULOSKELETAL EXAM: No tenderness to palpation in the lumbar spine NEUROLOGICAL: MENTAL STATUS: Awake , only oriented to himself SPEECH, LANGUAGE, HIGHER CORTICAL FUNCTION: no aphasia or dysathria. CRANIAL NERVES: #2: Intact visual lopez to confrontation. The optic discs were sharp. #3,4,6: Pupils are equal, round and reactive. EOMs full and conjugate. No nys tagmus. #5: Facial sensation intact in all three divisions bilaterally. Mandibular strength intact. #7: Facial muscles symmetrical and strength intact. #8: Hearing grossly normal to voice. #9,10: Uvula and soft palate rise in the midline. Swallow and voice are normal. #11: Trapezius and sternomastoid strength intact bilaterally. #12: Tongue midline. No fasciculations or atrophy. SENSATION: Sensation to touch and pinprick is normal. MOTOR: Normal tone in the upper and lower extremity. Normal muscle bulk. No fasciculations. No abnormal movements or posturing. Muscle strength of the major groups in the upper extremities is 5/5. Muscle strength of the major groups in the lower extremities is 5/5. REFLEXES: Deep tendon reflexes are symmetrical. No pathological reflexes. CEREBELLAR/COORDINATION: Deferred GAIT/STATION: deferred Labs/Diagnostic Data Labs Test 04/25/24 16:42 04/25/24 14:51 04/21/24 05:40 04/20/24 11:48 Range/Units POC Glucose 119 H 70-106 mg/dl White Blood Count 2.3 L 4.4-10.8 10^3/uL Red Blood Count 3.61 L 4.5-5.90 10^6/uL Hemoglobin 10.9 L 13.5-17.5 g/dL Hematocrit 32.4 L 41.0-53.0 % Mean Corpuscular Volume 89.5 80.0-100.0 fL Mean Corpuscular Hemoglobin 30.2 28.0-32.0 pg Mean Corpuscular Hemoglobin Concent 33.7 32.0-36.0 g/dL Red Cell Distribution Width 16.1 H 11.8-14.3 % Platelet Count 252 140-450 10^3/uL Mean Platelet Volume 6.9 6.9-10.8 fL Neutrophils (%) (Auto) 37.0-80.0 % Lymphocytes (%) (Auto) 10.0-50.0 % Monocytes (%) (Auto) 0.0-12.0 % Basophils (%) (Auto) 0.0-2.0 % Neutrophils # (Auto) 1.6-8.6 10 ^3/uL Lymphocytes # (Auto) 0.4-5.4 10 ^3/uL Monocytes # (Auto) 0-1.3 10 ^3/uL Differential Total Cells Counted 100.0 100 Neutrophils % (Manual) 21 L 37.0-80.0 Band Neutrophils % (Manual) 2 Lymphocytes % (Manual) 38 10.0-50.0 Monocytes % (Manual) 30 H 0-12 Eosinophils % (Manual) 8 H 0-7 Basophils % (Manual) 0 0.0-2.0 Metamyelocytes % (manual) 1 Myelocytes % (Manual) 0 Promyelocytes % (Manual) 0 Blast Cells % (Manual) 0 Reactive Lymphocytes 0 Platelet Estimate Adequate Sodium Level 136 136-145 mmol/L Potassium Level 4.7 3.5-5.1 mmol/L Chloride Level 96 L 98-107 mmol/L Carbon Dioxide Level 28 20-31 mmol/L Anion Gap 12 5-15 Blood Urea Nitrogen 35 H 9-23 mg/dL Creatinine 6.82 H 0.700-1.30 mg/dL Glomerular Filtration Rate Calc 9 >90 mL/min BUN/Creatinine Ratio 5.1 L 10.0-20.0 Serum Glucose 124 H 74-106 mg/dL Calcium Level 10.4 8.7-10.4 mg/dL Magnesium Level 2.4 1.6-2.6 mg/dL Total Bilirubin 0.3 0.2-1.0 mg/dL Aspartate Amino Transferase (AST) 13 13-40 U/L Alanine Aminotransferase (ALT) 11 7-40 U/L Alkaline Phosphatase 86 46-116 U/L Ammonia < 10 L 11-32 umol/L Total Protein 7.5 5.7-8.2 g/dL Albumin 4.6 3.2-4.8 g/dL Vitamin B12 Level 863 211-911 pg/mL Folic Acid 11.67 >5.38 ng/mL Thyroid Stimulating Hormone (TSH) 3.04 0.55-4.78 uIU/mL Random Vancomycin Level 21.9 H 5-10 ug/mL Hepatitis A IgM Antibody Negative Hepatitis B Surface Antigen Negative Negative Hepatitis B Core IgM Antibody Negative Negative Hepatitis C Antibody Negative Negative Prothrombin Time 11.7 9.3-11.8 sec Prothrombin Time INR 1.12 0.9-1.15 Activated Partial Thromboplast Time 40.2 H 24.5-34.5 SEC Test 04/20/24 04:43 04/17/24 07:11 04/16/24 03:30 04/15/24 22:49 Range/Units Erythrocyte Sedimentation Rate 102 H 0-20 mm/hr C-Reactive Protein High Sensitivity 3.43 H <1.0 mg/dL Iron Level 38 L 65-175 ug/dL Total Iron Binding Capacity 196 L 250-425 ug/dL Percent Iron Saturation 19.4 L 20-55 % Ferritin 1012.9 H 22-322 ng/mL Urine Color Light-yellow Yellow Urine Clarity Clear Clear Urine pH 8.5 5.0-9.0 Urine Specific [place] 1.012 1.001-1.035 Urine Protein 3+ H Negative Urine Ketones Negative Negative Urine Blood Negative Negative /uL Urine Nitrite Negative Negative Urine Bilirubin Negative Negative Urine Urobilinogen Normal Negative mg/dL Urine Leukocyte Esterase Trace Negative /uL Urine RBC 2 0 - 3 /hpf Urine Microscopic WBC 10 H 0-3 /HPF Urine Squamous Epithelial Cells Few <5 /hpf Urine Bacteria None seen None Seen /hpf Urine Glucose 2+ H Normal mg/dL Troponin I High Sensitivity 21 </=54 ng/L B-Type Natriuretic Peptide 1793.19 0-100 pg/mL Microbiology Date/Time Source Procedure Growth Status 04/19/24 21:32 Nose MRSA Screen - Final Complete 04/19/24 19:31 Blood Blood Culture - Final NO GROWTH AFTER 5 DAYS OF INCUBATION. Complete Assessment Reported nonepileptic seizure Metabolic encephalopathy Diskitis/anterior prevertebral abscess Urinary tract infection Leukopenia, improving Plan/Recommendation Monitoring Supportive treatment Telemetry EEG IV antibiotics Aspirin 81 mg daily Lipitor 20 mg daily Gabapentin 100 mg t.i.d. Haldol 2.5 mg intramuscular Q 8 hours p.r.n. for agitation More recommendation per clinical course Prognosis: Poor This medical document was created using an electronic medical record system with [employer] dictation system. Although this document has been carefully reviewed, there may still be some phonetic and typographical errors. These areas are purely typographical due to imperfections of the software programs, and do not reflect any compromise in the patient's medical care. Plan discussed with: Other KISHA CUELLAR MD Apr 25, 2024 22:08
[2024-04-25] MEDS: EPOETIN ALFA-EPBX 4,000 UNIT/ML VIAL SC ONE (22:19)
[2024-04-25] MEDS ORDERED: LORazepam 2MG/ML-1ML VIAL IV PRN (22:45)
[2024-04-25] MEDS ORDERED: HALOPERIDOL LACTATE 5 MG/ML INJ VIAL IM PRN (22:45)
--- NOTE | 2024-04-25 23:48 | DVHPN2 ---
Consult Progress Note Date Seen: Apr 25, 2024 Subjective Patient reports: Other (continues to have some delirium and is intermittedly agitated and refusing labs , has full strength in upper extremities and lower extremities ) Objective vital signs Vital Sign Date Time Temp Pulse Resp B/P (MAP) Pulse Ox O2 Delivery O2 Flow Rate FiO2 04/25/24 22:07 112 148/88 04/25/24 21:00 98.3 18 98 98.3 04/25/24 10:00 Room Air 0.0 04/25/24 10:00 21 Total Intake and Output 04/24/24 04/24/24 04/25/24 15:00 23:00 07:00 Intake Total 50 ml 0 ml 100 ml Balance 50 ml 0 ml 100 ml medications Current Medications Medications Dose Ordered Sig/Gerard Route Start Time Stop Time Status Last Admin Dose Admin Aspirin 81 mg DAILY PO 04/17/24 10:00 04/23/24 17:16 81 MG Clopidogrel Bisulfate 75 mg DAILY PO 04/17/24 10:00 04/24/24 13:05 75 MG Furosemide 40 mg DAILY IV 04/17/24 10:00 04/23/24 08:39 40 MG Hydralazine HCl 10 mg Q6HP PRN IV 04/16/24 14:00 04/24/24 18:24 10 MG Carvedilol 12.5 mg Q12HR PO 04/16/24 22:00 04/25/24 22:07 12.5 MG Amlodipine Besylate 5 mg DAILY PO 04/17/24 10:00 04/23/24 17:16 5 MG Atorvastatin Calcium 20 mg HS PO 04/16/24 22:00 04/25/24 22:07 20 MG Albuterol 2.5 mg Q4HPRN PRN NEB 04/16/24 14:00 Cancel Ipratropium [place] 0.5 mg Q4HPRN PRN NEB 04/16/24 14:00 Cancel Diagnostic Test (Pha) 1 strip ACHS 04/16/24 17:00 04/25/24 22:12 1 STRIP Insulin Human Regular ACHS SC 04/16/24 17:00 04/25/24 22:22 2 UNITS Dextrose 50 ml UD PRN IV 04/16/24 14:00 Sodium Chloride 10 ml Q8HR IV 04/16/24 14:00 04/25/24 22:12 10 ML Ondansetron HCl 4 mg Q4HP PRN IV 04/16/24 14:00 04/22/24 18:15 4 MG Docusate Sodium 100 mg BIDPRN PRN PO 04/16/24 14:00 04/19/24 16:16 100 MG Acetaminophen 650 mg Q6HP PRN PO 04/16/24 14:00 Sevelamer HCl 800 mg TIDWM PO 04/16/24 18:00 04/25/24 16:52 800 MG Multivit/Ca Carb/ B Cmplx/FA/Prenat 1 tab DAILY PO 04/17/24 10:00 04/23/24 17:16 1 TAB Nitroglycerin 0.4 mg Q5MINP PRN SL 04/16/24 16:30 Meropenem 50 ml @ 17 mls/hr HS IV 04/18/24 22:00 Cancel Daptomycin / Sodium Chloride 50 ml @ 100 mls/hr TUTHSA IV 04/19/24 21:00 UNV Vancomycin HCl 0 ml @ 0 mls/hr UD IV 04/18/24 21:30 Ceftriaxone Sodium/Dextrose 50 ml @ 50 mls/hr Q12HR IV 04/20/24 10:00 04/25/24 22:08 50 MLS/HR Diazepam 5 mg DAILY PRN PO 04/21/24 16:30 04/25/24 16:52 5 MG Gabapentin 100 mg TID PO 04/21/24 22:00 04/25/24 22:06 100 MG Cyclobenzaprine HCl 10 mg Q8HPRN PRN PO 04/24/24 10:30 04/24/24 13:05 10 MG Hydromorphone HCl 0.25 mg Q4HPRN PRN IV 04/24/24 11:15 04/24/24 15:29 0.25 MG Lorazepam 1 mg ONCE PRN IV 04/25/24 22:45 Haloperidol Lactate 2.5 mg Q8HP PRN IM 04/25/24 22:45 Physical Exam: General: NAD Neck: Supple. No masses. HEENT: PERRL. Normal lids and conjunctiva. Moist mucous membranes. Oropharynx without lesions, exudates, or excessive erythema. Normal appearance of the external aspects of the nose and ears. Heart: Regular rhythm, normal rate. No murmur. No lower extremity edema. Lungs: Normal respiratory effort. Clear to auscultation bilaterally. No wheezes. No crackles. Abdomen: Soft. Non-tender. Non-distended. No masses or abdominal hernia. MSK: - Strength: 2/5 strength in bilateral lower extremities. - Sensation: Intact to soft touch in all four limbs. - Spinal tenderness noted in the lumbar region. - No digital cyanosis. Normal strength and tone in upper extremities. Skin: Warm and dry, no rashes. Neuro: Alert. No facial droop or slurred speech. Extraocular movements intact. Psych: Appropriate mood. Full affect. Oriented to person, place, time, and situation. laboratory and microbiology Laboratory Tests 04/25/24 14:51 Test 04/25/24 14:51 Range/Units Serum Glucose 124 H 74-106 mg/dL Problem List/Assessment/Plan Problems(with codes): (1) Shortness of breath (2) ESRD (end stage renal disease) (3) Chronic back pain (4) Pneumonia, unspecified organism (5) Acute on chronic systolic heart failure (6) End stage renal disease on dialysis (7) Acute chest pain (8) Bilateral leg weakness (9) Inability to walk Problem List/Assessment/Plan ID Problem List: - Prevertebral abscess - Lumbar osteomyelitis/discitis - Bilateral lower extremity weakness - ESRD on dialysis - Seizure disorder - Hypertension COPD - Uncontrolled diabetes mellitus - Coronary artery disease, status post CABG and PTCA - History of pneumonia - History of buttock abscess with MRSA and E. coli infections Assessment This is a 59-year-old male with a past medical history of end-stage renal disease on dialysis, seizure disorder, hypertension, COPD, uncontrolled diabetes mellitus, and coronary artery disease status post CABG and PTCA, who presents with acute chest pain, shortness of breath, bilateral leg pain, inability to walk, and leg weakness. His symptoms have been worsening over the last several months, with health declining since February, necessitating the use of a walker for assistance. He was recently seen at an outside facility two days ago for unclear reasons; prior to this, he had pneumonia. He reports no current shortness of breath, dizziness, chest pain, fevers, or chills. He endorses weight loss and ongoing back pain in the lumbar region. Physical examination is notable for 2/5 strength in the bilateral lower extremities with full sensation, and spinal tenderness in the lumbar region. Laboratory studies reveal WBC 4.7, hemoglobin 10.2, platelet count 238, BUN 39, creatinine 7.2, glucose 126, BNP 1793, troponin 3.19. Chest X-ray shows opacities/infiltrates in both lung bases greater on the left side, markedly improved compared to prior thoracic imaging. MRI of the lumbar spine demonstrates findings most compatible with osteomyelitis/discitis with anterior vertebral abscess. No epidural abscess identified. Grade 1 anterior listhesis of L5 on S1 due to bilateral L5 pars defects. Multilevel degenerative disc disease with posterior facet arthropathy with evidence of nerve impingement at L4-L5 and L5-S1 levels. 04/19: appears to be clinically asymptomatic with exception of lower extremity weakness 04/20: Patients Chest , abdomen and pelvis Ct showed reticular opacities in the peripheral aspects of the lungs , mild super imposed lung opacities vs viral pneumonia similar to finding on 02/17/24. readministration of osteomyelitis L4 L5 associated with abscess , a visualized upper gluteal region is unremarkable with no evidence of ulcer abscess or sacral coxial erosion , their is moderate fecal retention and mild rectal fecal impaction tte wo vegetations 04/21: whitecount has downtred to 1.7 unclear ideology patients heart failure diagnosis is new with calcification of aortic valve 04/22: patients heart failure diagnosis is new 04/23: Vancomycin trots have been supra therapeutic elevated creatine of 31.2 and dose has been adjusted 04/24: whitecount is 2.2 , having some leukopenia and BUN is 39 , primarily neutrophilic loss and an unclear etiology for patients delirium 04/25: neurology evaluated patient and suspects largely organic/metabolic delirium , continues to be leukopenia Plan: - leukopenia likely related to high vancomycin trots and patient has been difficult to dose in setting of renal failure - stop vancomycin - start daptomycin 6mgs per kg every 48 hours with ceftriaxone 2 grams every 12 hours for 6 weeks - would exercise delirium precautions , avoiding lab sticks and waking at night , keeping patient near window open light during the day - would hold off on KAMI for now and can get the workup as outpatient to see if patient needs additional remedies for endocarditis - recommend 6 weeks IV vancomycin and ceftriaxone dosed at 2 grams Q 12 hours via tunneled catheter line and patient can get vancomycin at dialysis center - follow up with infectious disease in 4 weeks , patient may need a longer coarse of antibiotics and maybe oral treatment until epidural abscess is resolved on MRI - defer electromagnetic leg weakness and need for additional physical therapy and mobility issued to primary service - follow up with neurosurgery as an outpatient and advise patient should additional neurological deficits develop or fevers recur on antibiotics or bowel/urinary incontinents patient should come to the emergency room for further evaluation - Infectious Disease: - Initiate broad-spectrum antibiotics covering likely organisms, including MRSA and E. coli, pending culture results. vancomycin and ceftriaxone 2gq 12hrs. - Obtain blood cultures and inflammatory markers - Neurosurgery Consult: - Evaluate for possible surgical intervention for vertebral abscess and spinal instability.--> defer to dr hodge's who is recommending medical conservative management with IV abx. - Renal: - Continue hemodialysis as scheduled. - Monitor renal function and electrolytes closely. - Neurology: - Monitor for signs of neurological deterioration. - Endocrinology: - Optimize glycemic control for uncontrolled diabetes mellitus. - Pulmonary: - Monitor respiratory status given history of COPD and recent pneumonia. - Provide smoking cessation counseling. - Cardiology: - Monitor cardiac status given elevated BNP and troponin levels. - Consider further cardiac evaluation to rule out acute coronary syndrome. - Physical Therapy: - Assist with mobility and strengthening exercises as tolerated. - Nutrition: - Assess nutritional status; provide dietary support to address weight loss. Isolation Precautions: Standard Plan discussed with: Other Dietary Evaluation Review Comments: CCHO-60 low fat low cholesterol renal Standard diet Expected Outcomes/Goals: gradual wt loss ENDY CAMP MD Apr 25, 2024 23:48
--- NOTE | 2024-04-25 23:48 | DVHPN2 ---
Consult Progress Note Date Seen: Apr 24, 2024 Subjective Patient reports: Other (having some waning mentation , a little agitated and not following commands or answering questions , picclien site appears clean ) Objective vital signs Vital Sign Date Time Temp Pulse Resp B/P (MAP) Pulse Ox O2 Delivery O2 Flow Rate FiO2 04/25/24 22:07 112 148/88 04/25/24 21:00 98.3 18 98 98.3 04/25/24 10:00 Room Air 0.0 04/25/24 10:00 21 Total Intake and Output 04/24/24 04/24/24 04/25/24 15:00 23:00 07:00 Intake Total 50 ml 0 ml 100 ml Balance 50 ml 0 ml 100 ml medications Current Medications Medications Dose Ordered Sig/Gerard Route Start Time Stop Time Status Last Admin Dose Admin Aspirin 81 mg DAILY PO 04/17/24 10:00 04/23/24 17:16 81 MG Clopidogrel Bisulfate 75 mg DAILY PO 04/17/24 10:00 04/24/24 13:05 75 MG Furosemide 40 mg DAILY IV 04/17/24 10:00 04/23/24 08:39 40 MG Hydralazine HCl 10 mg Q6HP PRN IV 04/16/24 14:00 04/24/24 18:24 10 MG Carvedilol 12.5 mg Q12HR PO 04/16/24 22:00 04/25/24 22:07 12.5 MG Amlodipine Besylate 5 mg DAILY PO 04/17/24 10:00 04/23/24 17:16 5 MG Atorvastatin Calcium 20 mg HS PO 04/16/24 22:00 04/25/24 22:07 20 MG Albuterol 2.5 mg Q4HPRN PRN NEB 04/16/24 14:00 Cancel Ipratropium [place] 0.5 mg Q4HPRN PRN NEB 04/16/24 14:00 Cancel Diagnostic Test (Pha) 1 strip ACHS 04/16/24 17:00 04/25/24 22:12 1 STRIP Insulin Human Regular ACHS SC 04/16/24 17:00 04/25/24 22:22 2 UNITS Dextrose 50 ml UD PRN IV 04/16/24 14:00 Sodium Chloride 10 ml Q8HR IV 04/16/24 14:00 04/25/24 22:12 10 ML Ondansetron HCl 4 mg Q4HP PRN IV 04/16/24 14:00 04/22/24 18:15 4 MG Docusate Sodium 100 mg BIDPRN PRN PO 04/16/24 14:00 04/19/24 16:16 100 MG Acetaminophen 650 mg Q6HP PRN PO 04/16/24 14:00 Sevelamer HCl 800 mg TIDWM PO 04/16/24 18:00 04/25/24 16:52 800 MG Multivit/Ca Carb/ B Cmplx/FA/Prenat 1 tab DAILY PO 04/17/24 10:00 04/23/24 17:16 1 TAB Nitroglycerin 0.4 mg Q5MINP PRN SL 04/16/24 16:30 Meropenem 50 ml @ 17 mls/hr HS IV 04/18/24 22:00 Cancel Daptomycin / Sodium Chloride 50 ml @ 100 mls/hr TUTHSA IV 04/19/24 21:00 UNV Vancomycin HCl 0 ml @ 0 mls/hr UD IV 04/18/24 21:30 Ceftriaxone Sodium/Dextrose 50 ml @ 50 mls/hr Q12HR IV 04/20/24 10:00 04/25/24 22:08 50 MLS/HR Diazepam 5 mg DAILY PRN PO 04/21/24 16:30 04/25/24 16:52 5 MG Gabapentin 100 mg TID PO 04/21/24 22:00 04/25/24 22:06 100 MG Cyclobenzaprine HCl 10 mg Q8HPRN PRN PO 04/24/24 10:30 04/24/24 13:05 10 MG Hydromorphone HCl 0.25 mg Q4HPRN PRN IV 04/24/24 11:15 04/24/24 15:29 0.25 MG Lorazepam 1 mg ONCE PRN IV 04/25/24 22:45 Haloperidol Lactate 2.5 mg Q8HP PRN IM 04/25/24 22:45 Physical Exam: General: NAD Neck: Supple. No masses. HEENT: PERRL. Normal lids and conjunctiva. Moist mucous membranes. Oropharynx without lesions, exudates, or excessive erythema. Normal appearance of the external aspects of the nose and ears. Heart: Regular rhythm, normal rate. No murmur. No lower extremity edema. Lungs: Normal respiratory effort. Clear to auscultation bilaterally. No wheezes. No crackles. Abdomen: Soft. Non-tender. Non-distended. No masses or abdominal hernia. MSK: - Strength: 2/5 strength in bilateral lower extremities. - Sensation: Intact to soft touch in all four limbs. - Spinal tenderness noted in the lumbar region. - No digital cyanosis. Normal strength and tone in upper extremities. Skin: Warm and dry, no rashes. Neuro: Alert. No facial droop or slurred speech. Extraocular movements intact. Psych: Appropriate mood. Full affect. Oriented to person, place, time, and situation. laboratory and microbiology Laboratory Tests 04/25/24 14:51 Test 04/25/24 14:51 Range/Units Serum Glucose 124 H 74-106 mg/dL Problem List/Assessment/Plan Problems(with codes): (1) Chronic back pain (2) ESRD (end stage renal disease) (3) Shortness of breath (4) Pneumonia, unspecified organism (5) Acute on chronic systolic heart failure (6) End stage renal disease on dialysis (7) Acute chest pain (8) Bilateral leg weakness (9) Inability to walk Problem List/Assessment/Plan ID Problem List: - Prevertebral abscess - Lumbar osteomyelitis/discitis - Bilateral lower extremity weakness - ESRD on dialysis - Seizure disorder - Hypertension COPD - Uncontrolled diabetes mellitus - Coronary artery disease, status post CABG and PTCA - History of pneumonia - History of buttock abscess with MRSA and E. coli infections Assessment This is a 59-year-old male with a past medical history of end-stage renal disease on dialysis, seizure disorder, hypertension, COPD, uncontrolled diabetes mellitus, and coronary artery disease status post CABG and PTCA, who presents with acute chest pain, shortness of breath, bilateral leg pain, inability to walk, and leg weakness. His symptoms have been worsening over the last several months, with health declining since February, necessitating the use of a walker for assistance. He was recently seen at an outside facility two days ago for unclear reasons; prior to this, he had pneumonia. He reports no current shortness of breath, dizziness, chest pain, fevers, or chills. He endorses weight loss and ongoing back pain in the lumbar region. Physical examination is notable for 2/5 strength in the bilateral lower extremities with full sensation, and spinal tenderness in the lumbar region. Laboratory studies reveal WBC 4.7, hemoglobin 10.2, platelet count 238, BUN 39, creatinine 7.2, glucose 126, BNP 1793, troponin 3.19. Chest X-ray shows opacities/infiltrates in both lung bases greater on the left side, markedly improved compared to prior thoracic imaging. MRI of the lumbar spine demonstrates findings most compatible with osteomyelitis/discitis with anterior vertebral abscess. No epidural abscess identified. Grade 1 anterior listhesis of L5 on S1 due to bilateral L5 pars defects. Multilevel degenerative disc disease with posterior facet arthropathy with evidence of nerve impingement at L4-L5 and L5-S1 levels. 04/19: appears to be clinically asymptomatic with exception of lower extremity weakness 04/20: Patients Chest , abdomen and pelvis Ct showed reticular opacities in the peripheral aspects of the lungs , mild super imposed lung opacities vs viral pneumonia similar to finding on 02/17/24. readministration of osteomyelitis L4 L5 associated with abscess , a visualized upper gluteal region is unremarkable with no evidence of ulcer abscess or sacral coxial erosion , their is moderate fecal retention and mild rectal fecal impaction tte wo vegetations 04/21: whitecount has downtred to 1.7 unclear ideology patients heart failure diagnosis is new with calcification of aortic valve 04/22: patients heart failure diagnosis is new 04/23: Vancomycin trots have been supra therapeutic elevated creatine of 31.2 and dose has been adjusted 04/24: whitecount is 2.2 , having some lymphopenia and BUN is 39 , primarily neutrophillic loss and an unclear etiology for patients delirium Plan: - would exercise delirium precautions , avoiding lab sticks and waking at night , keeping patient near window open light during the day - would hold off on KAMI for now and can get the workup as outpatient to see if patient needs additional remedies for endocarditis - recommend 6 weeks IV vancomycin and ceftriaxone dosed at 2 grams Q 12 hours via tunneled catheter line and patient can get vancomycin at dialysis center - follow up with infectious disease in 4 weeks , patient may need a longer coarse of antibiotics and maybe oral treatment until epidural abscess is resolved on MRI - defer electromagnetic leg weakness and need for additional physical therapy and mobility issued to primary service - follow up with neurosurgery as an outpatient and advise patient should additional neurological deficits develop or fevers recur on antibiotics or bowel/urinary incontinents patient should come to the emergency room for further evaluation - Infectious Disease: - Initiate broad-spectrum antibiotics covering likely organisms, including MRSA and E. coli, pending culture results. vancomycin and ceftriaxone 2gq 12hrs. - Obtain blood cultures and inflammatory markers - Neurosurgery Consult: - Evaluate for possible surgical intervention for vertebral abscess and spinal instability.--> defer to dr hodge's who is recommending medical conservative management with IV abx. - Renal: - Continue hemodialysis as scheduled. - Monitor renal function and electrolytes closely. - Neurology: - Monitor for signs of neurological deterioration. - Endocrinology: - Optimize glycemic control for uncontrolled diabetes mellitus. - Pulmonary: - Monitor respiratory status given history of COPD and recent pneumonia. - Provide smoking cessation counseling. - Cardiology: - Monitor cardiac status given elevated BNP and troponin levels. - Consider further cardiac evaluation to rule out acute coronary syndrome. - Physical Therapy: - Assist with mobility and strengthening exercises as tolerated. - Nutrition: - Assess nutritional status; provide dietary support to address weight loss. Isolation Precautions: Standard Plan discussed with: Other Dietary Evaluation Review Comments: [facility] low fat low cholesterol renal Standard diet Expected Outcomes/Goals: gradual wt loss ENDY CAMP MD Apr 25, 2024 23:48
[2024-04-26] VITALS (9 sets, daily range): BP systolic 134–155; BP diastolic 53–109; PULSE 84–99; RESP 18–19; TEMP 97.8–98; O2SAT 93–98
[2024-04-26 04:29] LABS: Hematocrit 33.4 % (41.0-53.0); Hemoglobin 10.8 g/dL (13.5-17.5); Mean Corpuscular Hemoglobin 29.4 pg (28.0-32.0); Mean Corpuscular Hgb Conc. 32.3 g/dL (32.0-36.0); Platelet Count (auto) 260 10^3/uL (140-450); Red Blood Cells 3.67 10^6/uL (4.5-5.90); Red Cell Distribution Width 16.4 % (11.8-14.3); White Blood Cell 2.8 10^3/uL (4.4-10.8)
[2024-04-26 04:45] LABS: Band Neutrophils % (manual) 0; Basophils % (manual) 0 (0.0-2.0); Blast Cells 0; Metamyelocytes % 0; Myelocytes % 0; Promyelocytes % 0; Reactive Lymphocytes 0
[2024-04-26 04:48] LABS: Alanine Aminotransferase 12 U/L (7-40); Albumin 4.5 g/dL (3.2-4.8); Alkaline Phosphatase 85 U/L (46-116); Anion Gap 15 (5-15); Aspartate Aminotransferase 16 U/L (13-40); BUN/Creatinine Ratio 4.8 (10.0-20.0); Calcium 10.3 mg/dL (8.7-10.4); Carbon Dioxide 26 mmol/L (20-31); Glucose 101 mg/dL (74-106); Magnesium 2.6 mg/dL (1.6-2.6); Potassium 4.6 mmol/L (3.5-5.1); Sodium 137 mmol/L (136-145)
[2024-04-26 04:49] LABS: Total Protein 7.2 g/dL (5.7-8.2)
[2024-04-26 04:56] LABS: Blood Urea Nitrogen 39 mg/dL (9-23); Chloride 96 mmol/L (98-107)
[2024-04-26 04:57] LABS: Bilirubin, Total 0.2 mg/dL (0.2-1.0)
[2024-04-26 05:30] LABS: Eosinophils % (manual) 5 (0-7); Lymphocytes % (manual) 57 (10.0-50.0); Monocytes % (manual) 30 (0-12); Platelet Estimate Adequate
--- NOTE | 2024-04-26 10:27 | DVH ---
EXAMINATION: MRI BRAIN HEAD WO CONTRAST INDICATION: josiane, ALGIO COMPARISON: CT scan of the head performed on 04/1924. TECHNIQUE: Multiplanar, multisequence magnetic resonance imaging of the brain was performed without the use of i ntravenous contrast. FINDINGS: No evidence of acute infarct. No intracranial hemorrhage. No mass effect. There is mild periventricular/deep white matter T2/FLAIR hyperintensity is nonspecific, but most comm only associated with chronic microvascular disease. The ventricles and sulci are normal in size for age. Clear basal cisterns. Flow voids in the major intracranial vessels are maintained. No abnormality of the orbits. Paranasal sinuses and mastoid air cells are clear. No abnormality of the visualized osseous structures and extracranial soft tissues. IMPRESSION: 1. No acute infarct, intracranial hemorrhage, mass effect, or hydrocephalus.
--- NOTE | 2024-04-26 11:04 | DVHPN2 ---
Progress Note - Dictate Date Seen: Apr 26, 2024 Has the PT tested + for MRSA If YES, has PT been informed?: No Medical Necessity Reason Pt with a Central, PICC or Fol: No Subjective Sitter at bedside . MORE CALM TODAY vital signs Vital Sign Date Time Temp Pulse Resp B/P (MAP) Pulse Ox O2 Delivery O2 Flow Rate FiO2 04/26/24 10:23 148/70 04/26/24 10:23 94 04/26/24 10:00 94 Room Air* 0 21 04/26/24 08:22 97.9 18 97.9 Total Intake and Output 04/25/24 04/25/24 04/26/24 15:00 23:00 07:00 Intake Total 90 ml 200 ml Output Total 800 ml Balance -710 ml 200 ml medications Current Medications Medications Dose Ordered Sig/Gerard Route Start Time Stop Time Status Last Admin Dose Admin Aspirin 81 mg DAILY PO 04/17/24 10:00 04/26/24 10:22 81 MG Clopidogrel Bisulfate 75 mg DAILY PO 04/17/24 10:00 04/26/24 10:23 75 MG Furosemide 40 mg DAILY IV 04/17/24 10:00 04/26/24 10:22 40 MG Hydralazine HCl 10 mg Q6HP PRN IV 04/16/24 14:00 04/24/24 18:24 10 MG Carvedilol 12.5 mg Q12HR PO 04/16/24 22:00 04/26/24 10:23 12.5 MG Amlodipine Besylate 5 mg DAILY PO 04/17/24 10:00 04/26/24 10:23 5 MG Atorvastatin Calcium 20 mg HS PO 04/16/24 22:00 04/25/24 22:07 20 MG Albuterol 2.5 mg Q4HPRN PRN NEB 04/16/24 14:00 Cancel Ipratropium [place] 0.5 mg Q4HPRN PRN NEB 04/16/24 14:00 Cancel Diagnostic Test (Pha) 1 strip ACHS 04/16/24 17:00 04/26/24 07:00 1 STRIP Insulin Human Regular ACHS SC 04/16/24 17:00 04/25/24 22:22 2 UNITS Dextrose 50 ml UD PRN IV 04/16/24 14:00 Sodium Chloride 10 ml Q8HR IV 04/16/24 14:00 04/26/24 06:00 10 ML Ondansetron HCl 4 mg Q4HP PRN IV 04/16/24 14:00 04/22/24 18:15 4 MG Docusate Sodium 100 mg BIDPRN PRN PO 04/16/24 14:00 04/19/24 16:16 100 MG Acetaminophen 650 mg Q6HP PRN PO 04/16/24 14:00 Sevelamer HCl 800 mg TIDWM PO 04/16/24 18:00 04/26/24 09:05 800 MG Multivit/Ca Carb/ B Cmplx/FA/Prenat 1 tab DAILY PO 04/17/24 10:00 04/26/24 10:22 1 TAB Nitroglycerin 0.4 mg Q5MINP PRN SL 04/16/24 16:30 Meropenem 50 ml @ 17 mls/hr HS IV 04/18/24 22:00 Cancel Daptomycin / Sodium Chloride 50 ml @ 100 mls/hr TUTHSA IV 04/19/24 21:00 UNV Vancomycin HCl 0 ml @ 0 mls/hr UD IV 04/18/24 21:30 Ceftriaxone Sodium/Dextrose 50 ml @ 50 mls/hr Q12HR IV 04/20/24 10:00 04/26/24 10:24 50 MLS/HR Diazepam 5 mg DAILY PRN PO 04/21/24 16:30 04/25/24 16:52 5 MG Gabapentin 100 mg TID PO 04/21/24 22:00 04/26/24 06:59 100 MG Cyclobenzaprine HCl 10 mg Q8HPRN PRN PO 04/24/24 10:30 04/24/24 13:05 10 MG Hydromorphone HCl 0.25 mg Q4HPRN PRN IV 04/24/24 11:15 04/24/24 15:29 0.25 MG Lorazepam 1 mg ONCE PRN IV 04/25/24 22:45 Haloperidol Lactate 2.5 mg Q8HP PRN IM 04/25/24 22:45 objective HEENT: No evidence of JVD, no oral ulcers. Pulmonary: Lungs are clear on auscultation bilaterally Cardiovascular S1-S2, no S3 or S4 Abdomen: Bowel sounds positive, soft no rebound tenderness Skin: No rash Neurological: No deficits laboratory and microbiology Laboratory Tests 04/26/24 03:46 Test 04/26/24 03:46 Range/Units Serum Glucose 101 74-106 mg/dL Problem List 1. End-stage renal disease on hemodialysis 2. Chest pain 3. Pneumonia 4. Hypertension 5. L4-L5 spondylodiscitis and anterior prevertebral abscess 6. Anemia 7. CHF 8. Diabetes type 2 9. Intractable back pain 10. CAD status post multiple stentings 11.ALOC Assessment/Plan Hemodialysis TTS schedule Neuro evaln continue IV abx Vanco can be given with HD . Arrangements for home IV Rocephin needs to be made as ID recommendation is for 2 gm q 12 hrs Dietary Evaluation Review Comments: CCHO-60 low fat low cholesterol renal Standard diet Expected Outcomes/Goals: gradual wt loss Plan discussed with: Other NETTIE LIVINGSTON MD Apr 26, 2024 11:04
[2024-04-26] MEDS ORDERED: VANCOMYCIN PER PHARMACY 0 MG IV SCH (12:00)
--- NOTE | 2024-04-26 12:07 | DVHPN2 ---
Subjective Still confused and not following commands CT scan of the head was negative MRI also of the brain was negative Neurology consultation in progress The patient is having EEG today Changes from previous H/P or p: Changes Eyes: No Pain, No Vision change, No Conjunctivae inflammation, No Eyelid inflammation, No Other, No Redness ENT: No Ear pain, No Ear discharge, No Nose pain, No Nose discharge, No Nose congestion, No Mouth pain, No Mouth swelling, No Throat pain, No Throat swelling, No Other Cardiovascular: No Chest Pain, No Palpitations, No Orthopnea, No Paroxysmal Noc. Dyspnea, No Edema, No Lt Headedness, No Other Respiratory: No Cough, No Dry, No Shortness of breath, No SOB with excertion, No Wheezing, No Hemoptysis, No Pleuritic Pain, No Sputum, No Other Gastrointestinal: No Nausea, No Vomiting, No Abdominal Pain, No Diarrhea, No Constipation, No Melena, No Hematochezia, No Other Genitourinary: No Dysuria, No Frequency, No Incontinence, No Hematuria, No Retention, No Other Musculoskeletal: other (Bilateral leg weakness); No neck pain, No shoulder pain, No arm pain, No back pain, No hand pain; leg pain; No foot pain Skin: No Rash, No Lesions, No Jaundice, No Bruising, No Other Objective Vitals Vital Signs Date Time Temp Pulse Resp B/P (MAP) Pulse Ox O2 Delivery O2 Flow Rate FiO2 04/26/24 10:23 148/70 04/26/24 10:23 94 04/26/24 10:00 94 Room Air* 0 21 04/26/24 08:22 97.9 18 97.9 Intake/Output Intake and Output 04/26/24 07:00 Intake Total 290 ml Output Total 800 ml Balance -510 ml Intake Oral 290 ml Output Urine Total 800 ml # Voids 3 General Appearance: Alert, Oriented X3, Cooperative Lungs: Clear to auscultation, Normal air movement Cardiovascular: Regular rate, Normal S1 Abdomen: Normal bowel sounds, Soft Extremities: No edema Medications Current Medications Medications Dose Ordered Sig/Gerard Route Start Time Stop Time Status Last Admin Dose Admin Aspirin 81 mg DAILY PO 04/17/24 10:00 04/26/24 10:22 81 MG Clopidogrel Bisulfate 75 mg DAILY PO 04/17/24 10:00 04/26/24 10:23 75 MG Furosemide 40 mg DAILY IV 04/17/24 10:00 04/26/24 10:22 40 MG Hydralazine HCl 10 mg Q6HP PRN IV 04/16/24 14:00 04/24/24 18:24 10 MG Carvedilol 12.5 mg Q12HR PO 04/16/24 22:00 04/26/24 10:23 12.5 MG Amlodipine Besylate 5 mg DAILY PO 04/17/24 10:00 04/26/24 10:23 5 MG Atorvastatin Calcium 20 mg HS PO 04/16/24 22:00 04/25/24 22:07 20 MG Albuterol 2.5 mg Q4HPRN PRN NEB 04/16/24 14:00 Cancel Ipratropium [place] 0.5 mg Q4HPRN PRN NEB 04/16/24 14:00 Cancel Diagnostic Test (Pha) 1 strip ACHS 04/16/24 17:00 04/26/24 07:00 1 STRIP Insulin Human Regular ACHS SC 04/16/24 17:00 04/25/24 22:22 2 UNITS Dextrose 50 ml UD PRN IV 04/16/24 14:00 Sodium Chloride 10 ml Q8HR IV 04/16/24 14:00 04/26/24 06:00 10 ML Ondansetron HCl 4 mg Q4HP PRN IV 04/16/24 14:00 04/22/24 18:15 4 MG Docusate Sodium 100 mg BIDPRN PRN PO 04/16/24 14:00 04/19/24 16:16 100 MG Acetaminophen 650 mg Q6HP PRN PO 04/16/24 14:00 Sevelamer HCl 800 mg TIDWM PO 04/16/24 18:00 04/26/24 09:05 800 MG Multivit/Ca Carb/ B Cmplx/FA/Prenat 1 tab DAILY PO 04/17/24 10:00 04/26/24 10:22 1 TAB Nitroglycerin 0.4 mg Q5MINP PRN SL 04/16/24 16:30 Meropenem 50 ml @ 17 mls/hr HS IV 04/18/24 22:00 Cancel Daptomycin / Sodium Chloride 50 ml @ 100 mls/hr TUTHSA IV 04/19/24 21:00 UNV Vancomycin HCl 0 ml @ 0 mls/hr UD IV 04/18/24 21:30 Cancel Diazepam 5 mg DAILY PRN PO 04/21/24 16:30 04/25/24 16:52 5 MG Gabapentin 100 mg TID PO 04/21/24 22:00 04/26/24 06:59 100 MG Cyclobenzaprine HCl 10 mg Q8HPRN PRN PO 04/24/24 10:30 04/24/24 13:05 10 MG Hydromorphone HCl 0.25 mg Q4HPRN PRN IV 04/24/24 11:15 04/24/24 15:29 0.25 MG Lorazepam 1 mg ONCE PRN IV 04/25/24 22:45 Haloperidol Lactate 2.5 mg Q8HP PRN IM 04/25/24 22:45 Daptomycin 500 mg/ Sodium Chloride 50 ml @ 100 mls/hr NONDIALYSIS IV 04/26/24 13:00 Cancel Vancomycin HCl 0 ml @ 0 mls/hr UD IV 04/26/24 12:00 UNV Levofloxacin 250 mg DAILY PO 04/27/24 10:00 UNV Laboratory Results Laboratory Tests 04/26/24 03:46 Chemistry Test 04/25/24 14:51 04/26/24 03:46 Albumin 4.6 g/dL (3.2-4.8) 4.5 g/dL (3.2-4.8) Calcium Level 10.4 mg/dL (8.7-10.4) 10.3 mg/dL (8.7-10.4) Magnesium Level 2.4 mg/dL (1.6-2.6) 2.6 mg/dL (1.6-2.6) Total Protein 7.5 g/dL (5.7-8.2) 7.2 g/dL (5.7-8.2) LFT Test 04/25/24 14:51 04/26/24 03:46 Alanine Aminotransferase (ALT) 11 U/L (7-40) 12 U/L (7-40) Alkaline Phosphatase 86 U/L (46-116) 85 U/L (46-116) Aspartate Amino Transferase (AST) 13 U/L (13-40) 16 U/L (13-40) Total Bilirubin 0.3 mg/dL (0.2-1.0) 0.2 mg/dL (0.2-1.0) HgA1c, TSH Test 04/25/24 14:51 Thyroid Stimulating Hormone (TSH) 3.04 uIU/mL (0.55-4.78) Urinalysis Test 04/16/24 03:30 Urine Color Light-yellow (Yellow) Urine Clarity Clear (Clear) Urine pH 8.5 (5.0-9.0) Urine Specific [place] 1.012 (1.001-1.035) Urine Protein 3+ (Negative) H Urine Ketones Negative (Negative) Urine Blood Negative /uL (Negative) Urine Nitrite Negative (Negative) Urine Bilirubin Negative (Negative) Urine Urobilinogen Normal mg/dL (Negative) Urine Leukocyte Esterase Trace /uL (Negative) Urine RBC 2 /hpf (0 - 3) Urine Microscopic WBC 10 /HPF (0-3) H Urine Squamous Epithelial Cells Few /hpf (<5) Urine Bacteria None seen /hpf (None Seen) Urine Glucose 2+ mg/dL (Normal) H Microbiology Microbiology Date/Time Source Procedure Growth Status 04/19/24 21:32 Nose MRSA Screen - Final Complete 04/19/24 19:31 Blood Blood Culture - Final NO GROWTH AFTER 5 DAYS OF INCUBATION. Complete Assessment/Plan Assessment/Plan Intractable lower back pain Hyperkalemia End-stage renal disease on hemodialysis Generalized weakness Possible underlying pneumonia Chronic anemia of chronic kidney disease Chest pain most likely noncardiac Coronary artery disease status post PTCA x6 on aspirin and Plavix Acute on chronic heart failure with reduced ejection fraction last ejection fraction 35% Obesity Tobacco use Type 2 diabetes Dyslipidemia Hypertension Plan Get a CT scan of the lumbar spine to rule out abscess since the patient says he was diagnosed with an abscess lately and was given oral Cipro from [facility] Hemodialysis to be done today Nephrology consult Cardiology consult Pain management with morphine and [place] as needed Physical therapy evaluation Full code Discussed with the the patient and with his over the phone Advance directives discussed for 20 minutes 04/18/2024: Lumbar spine L4-L5 diskitis with anterior prevertebral abscess Degenerative disc disease of the lumbar spine End-stage renal disease Hyperkalemia Plan: Start broad-spectrum antibiotics with meropenem and vancomycin Infectious Disease consultation Spinal surgery consultation Hemodialysis per nephrology Repeat the labs Monitor the patient closely 04/19/2024: Continue IV antibiotics ID consult Spinal surgery recommended conservative treatment with IV antibiotics If the patient will need only IV vancomycin then he can get it at the dialysis Treatment plan discussed with the patient and his over the phone He is complaining of more pain in his back and not relieved by the current regimen and therefore we will increase morphine to 4 mg IV every 4 hours p.r.n. and increase the [place] to 2 tablets q.6 hours p.r.n. The rest of the management will depend on the hospital course Hemodialysis per nephrology 04/20/2024: Continue IV antibiotics with Rocephin and vancomycin Discussed with ID and Nephrology, since the patient can not have a PICC line, we will do a tunneled central line by IR Patient can then be discharged home on IV vancomycin with dialysis and IV Rocephin daily by home health Continue pain management The rest of the management will depend on the hospital course 04/21/2024: Continue IV antibiotics Tunneled central line to be done on Tuesday Lower the dose of morphine to minimize the side effects [place] as needed Discharge planning once the central line is done and IV antibiotics are ordered Neutropenia: Place on neutropenic precautions Hyperkalemia: Dialysis per Nephrology 04/22/2024: Continue the current regimen of IV antibiotics Waiting for the central line to be done Discharge planning was central line is done Hemodialysis per nephrology 04/23/24: Order home health for IV antibiotics: Vanco with HD + Rocephin 2 gm q 12 h x 6 weeks Tunnelled central line pending Pain control Continue physical therapy HD per nephrology 04/24/2024: Confusion, delirium: The patient has a sitter at the bedside, discontinue morphine and [place], give Dilaudid low dose instead Back pain: Dilaudid for pain control, Flexeril p.r.n. Continue IV antibiotics Tunneled central line is done for IV antibiotics at home IV antibiotics ordered for home with home health however the patient is confused now, we will have to wait until he is alert and oriented 4 discharged Hemodialysis per Nephrology 04/25/2024: Delirium: Possible complex seizures History of pseudoseizures Back pain due to spinal abscess Spinal abscess and diskitis on IV antibiotics End-stage renal disease hemodialysis today Neurology consult regarding altered level of conscious Monitor closely 04/26/2024: EEG today MRI and CT scan of the brain was negative Neurology consult Hemodialysis as scheduled The patient's insurance does not cover home IV antibiotics and therefore he will have to have the antibiotics with dialysis, we will discuss with our infectious disease specialist to see what you regimen he would need at home Plan discussed with: Patient, Other My Orders Orders - SADAF SANTANA MD Procedure Category Date Status Time Head Without Contrast CT 04/25/24 Resulted 14:53 Date of Service: Apr 26, 2024 Billing Provider: SADAF SANTANA MD Common Visit Codes: [id number] INP/OBS CARE(HIGH) SADAF SANTANA MD Apr 26, 2024 12:07
[2024-04-26] MEDS: levoFLOXacin 250 MG TAB PO ONE (12:47)
[2024-04-26] MEDS ORDERED: DAPTOmycin 500 MG in SODIUM CHL 0.9% 50 ML IV SCH (13:00)
[2024-04-26] MEDS: VANCOMYCIN 1GM/250mL NS or D5W KIT IV ONE (13:07)
--- NOTE | 2024-04-26 23:00 | DVHPN2 ---
Progress Note - Dictate Date Seen: Apr 26, 2024 Has the PT tested + for MRSA If YES, has PT been informed?: No Medical Necessity Reason Pt with a Central, PICC or Fol: No Subjective Mr. Mckee is a 59 years old gentleman with a history of hypertension, coronary artery disease, congestive heart failure, COPD, end-stage kidney failure on hemodialysis, he was brought to the [facility] on 04/15[facility]2024 with a chief company of shortness of breath. I have seen and examined the patient, I have talked his nurse and the medical staff the patient was much better today, he is alert, oriented to person, place, he knows year and the month, reasonable social skills, but sometimes he does not answer my questions properly. His muscle power feels normal per my physical examination, but nurse reports he needs a last support to move around He tells me he was no history of seizure, he tells me he has no back pain No tenderness to palpation in the lumbar spine Blood culture, 04/19/2024: No growth Urinalysis, 04/16/2024: WBC: 10, urine leukocyte esterase: Trace WBC/HB/PLT/MCV, 04/21/2024: 1.7/9.7/175/91.6, 04/25/2024: 2.3/10.9/252/89.5 BUN/CR, 04/25/2024: 75/6.82 Liver function tests, 04/25/2024: Unremarkable Hepatitis panel, Vitamin B12, 04/25/2024: 163 Folic acid, 04/25/2024: 11.67 TSH, 04/25/2024: 3.04 CT head, 04/25/2024: No acute intracranial abnormality MRI lumbar spine, 04/18/2024: 1. Findings most compatible with L4-L5 spondylodiscitis an anterior prevertebral abscess. Recommend neurosurgical consultation. No epidural abscess identified in the unenhanced study. 2. Grade 1 anterolisthesis at L5-S1 due to bilateral L5 pars defects. 3. Multilevel degenerative disc disease and posterior facet arthropathy with evidence of nerve impingement at L4-L5 and L5-S1 levels vital signs Vital Sign Date Time Temp Pulse Resp B/P (MAP) Pulse Ox O2 Delivery O2 Flow Rate FiO2 04/26/24 21:45 86 147/78 04/26/24 21:00 97.8 19 98 97.8 04/26/24 20:00 Nasal Cannula* 2 28 Total Intake and Output 04/25/24 04/25/24 04/26/24 15:00 23:00 07:00 Intake Total 90 ml 200 ml Output Total 800 ml Balance -710 ml 200 ml medications Current Medications Medications Dose Ordered Sig/Gerard Route Start Time Stop Time Status Last Admin Dose Admin Aspirin 81 mg DAILY PO 04/17/24 10:00 04/26/24 10:22 81 MG Clopidogrel Bisulfate 75 mg DAILY PO 04/17/24 10:00 04/26/24 10:23 75 MG Furosemide 40 mg DAILY IV 04/17/24 10:00 04/26/24 10:22 40 MG Hydralazine HCl 10 mg Q6HP PRN IV 04/16/24 14:00 04/24/24 18:24 10 MG Carvedilol 12.5 mg Q12HR PO 04/16/24 22:00 04/26/24 21:45 12.5 MG Amlodipine Besylate 5 mg DAILY PO 04/17/24 10:00 04/26/24 10:23 5 MG Atorvastatin Calcium 20 mg HS PO 04/16/24 22:00 04/26/24 21:44 20 MG Albuterol 2.5 mg Q4HPRN PRN NEB 04/16/24 14:00 Cancel Ipratropium [place] 0.5 mg Q4HPRN PRN NEB 04/16/24 14:00 Cancel Diagnostic Test (Pha) 1 strip ACHS 04/16/24 17:00 04/26/24 17:00 1 STRIP Insulin Human Regular ACHS SC 04/16/24 17:00 04/26/24 18:17 2 UNITS Dextrose 50 ml UD PRN IV 04/16/24 14:00 Sodium Chloride 10 ml Q8HR IV 04/16/24 14:00 04/26/24 13:07 10 ML Ondansetron HCl 4 mg Q4HP PRN IV 04/16/24 14:00 04/22/24 18:15 4 MG Docusate Sodium 100 mg BIDPRN PRN PO 04/16/24 14:00 04/19/24 16:16 100 MG Acetaminophen 650 mg Q6HP PRN PO 04/16/24 14:00 Sevelamer HCl 800 mg TIDWM PO 04/16/24 18:00 04/26/24 18:18 800 MG Multivit/Ca Carb/ B Cmplx/FA/Prenat 1 tab DAILY PO 04/17/24 10:00 04/26/24 10:22 1 TAB Nitroglycerin 0.4 mg Q5MINP PRN SL 04/16/24 16:30 Meropenem 50 ml @ 17 mls/hr HS IV 04/18/24 22:00 Cancel Daptomycin / Sodium Chloride 50 ml @ 100 mls/hr TUTHSA IV 04/19/24 21:00 UNV Vancomycin HCl 0 ml @ 0 mls/hr UD IV 04/18/24 21:30 Cancel Diazepam 5 mg DAILY PRN PO 04/21/24 16:30 04/25/24 16:52 5 MG Gabapentin 100 mg TID PO 04/21/24 22:00 04/26/24 21:44 100 MG Cyclobenzaprine HCl 10 mg Q8HPRN PRN PO 04/24/24 10:30 04/24/24 13:05 10 MG Hydromorphone HCl 0.25 mg Q4HPRN PRN IV 04/24/24 11:15 04/24/24 15:29 0.25 MG Lorazepam 1 mg ONCE PRN IV 04/25/24 22:45 Haloperidol Lactate 2.5 mg Q8HP PRN IM 04/25/24 22:45 Daptomycin 500 mg/ Sodium Chloride 50 ml @ 100 mls/hr NONDIALYSIS IV 04/26/24 13:00 Cancel Vancomycin HCl 0 ml @ 0 mls/hr UD IV 04/26/24 12:00 Levofloxacin 250 mg DAILY PO 04/27/24 10:00 objective General: the patient is well developed and nourished. No acute distress. MUSCULOSKELETAL EXAM: No tenderness to palpation in the lumbar spine MENTAL STATUS: Awake , only oriented to himself SPEECH, LANGUAGE, HIGHER CORTICAL FUNCTION: no aphasia or dysathria. CRANIAL NERVES: Pupils are equal, round and reactive. EOMs full and conjugate. Facial sensation intact in all three divisions bilaterally. Mandibular strength intact. Facial muscles symmetrical and strength intact. SENSATION: Sensation to touch and pinprick is normal. MOTOR: Normal tone in the upper and lower extremity. Normal muscle bulk. No fasciculations. No abnormal movements or posturing. Muscle strength of the major groups in the extremities is 5/5. REFLEXES: Deep tendon reflexes are symmetrical. No pathological reflexes. CEREBELLAR/COORDINATION: Deferred GAIT/STATION: deferred laboratory and microbiology Laboratory Tests 04/26/24 03:46 Test 04/26/24 03:46 Range/Units Serum Glucose 101 74-106 mg/dL Problem List Reported nonepileptic seizure Metabolic encephalopathy, better Diskitis/anterior prevertebral abscess Urinary tract infection Leukopenia, improving Assessment/Plan Monitoring Supportive treatment Telemetry EEG IV antibiotics Aspirin 81 mg daily Lipitor 20 mg daily Gabapentin 100 mg t.i.d. Haldol 2.5 mg intramuscular Q 8 hours p.r.n. for agitation More recommendation per clinical course This medical document was created using an electronic medical record system with [employer] dictation system. Although this document has been carefully reviewed, there may still be some phonetic and typographical errors. These areas are purely typographical due to imperfections of the software programs, and do not reflect any compromise in the patient's medical care Prognosis poor Dietary Evaluation Review Comments: CCHO-60 low fat low cholesterol renal Standard diet Expected Outcomes/Goals: gradual wt loss Plan discussed with: Patient, Other Total Time (mins): 40 KISHA CUELLAR MD Apr 26, 2024 23:00
--- NOTE | 2024-04-26 23:54 | DVHPN2 ---
Consult Progress Note Date Seen: Apr 26, 2024 Subjective Patient reports: Other (unable to get IV antibiotics at home as insurance is not covering the vancomycin trots , patient is getting regular doses of vancomycin , catheter is clean , patient is a little lethargic ) Objective vital signs Vital Sign Date Time Temp Pulse Resp B/P (MAP) Pulse Ox O2 Delivery O2 Flow Rate FiO2 04/26/24 21:45 86 147/78 04/26/24 21:00 97.8 19 98 97.8 04/26/24 20:00 Nasal Cannula* 2 28 Total Intake and Output 04/25/24 04/25/24 04/26/24 15:00 23:00 07:00 Intake Total 90 ml 200 ml Output Total 800 ml Balance -710 ml 200 ml medications Current Medications Medications Dose Ordered Sig/Gerard Route Start Time Stop Time Status Last Admin Dose Admin Aspirin 81 mg DAILY PO 04/17/24 10:00 04/26/24 10:22 81 MG Clopidogrel Bisulfate 75 mg DAILY PO 04/17/24 10:00 04/26/24 10:23 75 MG Furosemide 40 mg DAILY IV 04/17/24 10:00 04/26/24 10:22 40 MG Hydralazine HCl 10 mg Q6HP PRN IV 04/16/24 14:00 04/24/24 18:24 10 MG Carvedilol 12.5 mg Q12HR PO 04/16/24 22:00 04/26/24 21:45 12.5 MG Amlodipine Besylate 5 mg DAILY PO 04/17/24 10:00 04/26/24 10:23 5 MG Atorvastatin Calcium 20 mg HS PO 04/16/24 22:00 04/26/24 21:44 20 MG Albuterol 2.5 mg Q4HPRN PRN NEB 04/16/24 14:00 Cancel Ipratropium [place] 0.5 mg Q4HPRN PRN NEB 04/16/24 14:00 Cancel Diagnostic Test (Pha) 1 strip ACHS 04/16/24 17:00 04/26/24 17:00 1 STRIP Insulin Human Regular ACHS SC 04/16/24 17:00 04/26/24 18:17 2 UNITS Dextrose 50 ml UD PRN IV 04/16/24 14:00 Sodium Chloride 10 ml Q8HR IV 04/16/24 14:00 04/26/24 13:07 10 ML Ondansetron HCl 4 mg Q4HP PRN IV 04/16/24 14:00 04/22/24 18:15 4 MG Docusate Sodium 100 mg BIDPRN PRN PO 04/16/24 14:00 04/19/24 16:16 100 MG Acetaminophen 650 mg Q6HP PRN PO 04/16/24 14:00 Sevelamer HCl 800 mg TIDWM PO 04/16/24 18:00 04/26/24 18:18 800 MG Multivit/Ca Carb/ B Cmplx/FA/Prenat 1 tab DAILY PO 04/17/24 10:00 04/26/24 10:22 1 TAB Nitroglycerin 0.4 mg Q5MINP PRN SL 04/16/24 16:30 Meropenem 50 ml @ 17 mls/hr HS IV 04/18/24 22:00 Cancel Daptomycin / Sodium Chloride 50 ml @ 100 mls/hr TUTHSA IV 04/19/24 21:00 UNV Vancomycin HCl 0 ml @ 0 mls/hr UD IV 04/18/24 21:30 Cancel Diazepam 5 mg DAILY PRN PO 04/21/24 16:30 04/25/24 16:52 5 MG Gabapentin 100 mg TID PO 04/21/24 22:00 04/26/24 21:44 100 MG Cyclobenzaprine HCl 10 mg Q8HPRN PRN PO 04/24/24 10:30 04/24/24 13:05 10 MG Hydromorphone HCl 0.25 mg Q4HPRN PRN IV 04/24/24 11:15 04/24/24 15:29 0.25 MG Lorazepam 1 mg ONCE PRN IV 04/25/24 22:45 Haloperidol Lactate 2.5 mg Q8HP PRN IM 04/25/24 22:45 Daptomycin 500 mg/ Sodium Chloride 50 ml @ 100 mls/hr NONDIALYSIS IV 04/26/24 13:00 Cancel Vancomycin HCl 0 ml @ 0 mls/hr UD IV 04/26/24 12:00 Levofloxacin 250 mg DAILY PO 04/27/24 10:00 laboratory and microbiology Laboratory Tests 04/26/24 03:46 Test 04/26/24 03:46 Range/Units Serum Glucose 101 74-106 mg/dL Problem List/Assessment/Plan Problems(with codes): (1) Chronic back pain (2) ESRD (end stage renal disease) (3) Shortness of breath (4) Pneumonia, unspecified organism (5) Acute on chronic systolic heart failure (6) End stage renal disease on dialysis (7) Acute chest pain (8) Bilateral leg weakness (9) Inability to walk Problem List/Assessment/Plan ID Problem List: - Prevertebral abscess - Lumbar osteomyelitis/discitis - Bilateral lower extremity weakness - ESRD on dialysis - Seizure disorder - Hypertension COPD - Uncontrolled diabetes mellitus - Coronary artery disease, status post CABG and PTCA - History of pneumonia - History of buttock abscess with MRSA and E. coli infections Assessment This is a 59-year-old male with a past medical history of end-stage renal disease on dialysis, seizure disorder, hypertension, COPD, uncontrolled diabetes mellitus, and coronary artery disease status post CABG and PTCA, who presents with acute chest pain, shortness of breath, bilateral leg pain, inability to walk, and leg weakness. His symptoms have been worsening over the last several months, with health declining since February, necessitating the use of a walker for assistance. He was recently seen at an outside facility two days ago for unclear reasons; prior to this, he had pneumonia. He reports no current shortness of breath, dizziness, chest pain, fevers, or chills. He endorses weight loss and ongoing back pain in the lumbar region. Physical examination is notable for 2/5 strength in the bilateral lower extremities with full sensation, and spinal tenderness in the lumbar region. Laboratory studies reveal WBC 4.7, hemoglobin 10.2, platelet count 238, BUN 39, creatinine 7.2, glucose 126, BNP 1793, troponin 3.19. Chest X-ray shows opacities/infiltrates in both lung bases greater on the left side, markedly improved compared to prior thoracic imaging. MRI of the lumbar spine demonstrates findings most compatible with osteomyelitis/discitis with anterior vertebral abscess. No epidural abscess identified. Grade 1 anterior listhesis of L5 on S1 due to bilateral L5 pars defects. Multilevel degenerative disc disease with posterior facet arthropathy with evidence of nerve impingement at L4-L5 and L5-S1 levels. 04/19: appears to be clinically asymptomatic with exception of lower extremity weakness 04/20: Patients Chest , abdomen and pelvis Ct showed reticular opacities in the peripheral aspects of the lungs , mild super imposed lung opacities vs viral pneumonia similar to finding on 02/17/24. readministration of osteomyelitis L4 L5 associated with abscess , a visualized upper gluteal region is unremarkable with no evidence of ulcer abscess or sacral coxial erosion , their is moderate fecal retention and mild rectal fecal impaction tte wo vegetations 04/21: whitecount has downtred to 1.7 unclear ideology patients heart failure diagnosis is new with calcification of aortic valve 04/22: patients heart failure diagnosis is new 04/23: Vancomycin trots have been supra therapeutic elevated creatine of 31.2 and dose has been adjusted 04/24: whitecount is 2.2 , having some leukopenia and BUN is 39 , primarily neutrophilic loss and an unclear etiology for patients delirium 04/25: neurology evaluated patient and suspects largely organic/metabolic delirium , continues to be leukopenia 04/26: patient cannot get home antibiotics Plan: - patient can get antibiotics via dialysis - leukopenia likely related to high vancomycin trots and patient has been difficult to dose in setting of renal failure - start cefapime for 6 weeks with dialysis - restart vancomycin for 6 weeks with dialysis - would exercise delirium precautions , avoiding lab sticks and waking at night , keeping patient near window open light during the day - would hold off on KAMI for now and can get the workup as outpatient to see if patient needs additional remedies for endocarditis - follow up with infectious disease in 4 weeks , patient may need a longer coarse of antibiotics and maybe oral treatment until epidural abscess is resolved on MRI - defer electromagnetic leg weakness and need for additional physical therapy and mobility issued to primary service - follow up with neurosurgery as an outpatient and advise patient should additional neurological deficits develop or fevers recur on antibiotics or bowel/urinary incontinents patient should come to the emergency room for further evaluation - Infectious Disease: - Initiate broad-spectrum antibiotics covering likely organisms, including MRSA and E. coli, pending culture results. vancomycin and ceftriaxone 2gq 12hrs. - Obtain blood cultures and inflammatory markers - Neurosurgery Consult: - Evaluate for possible surgical intervention for vertebral abscess and spinal instability.--> defer to dr hodge's who is recommending medical conservative management with IV abx. - Renal: - Continue hemodialysis as scheduled. - Monitor renal function and electrolytes closely. - Neurology: - Monitor for signs of neurological deterioration. - Endocrinology: - Optimize glycemic control for uncontrolled diabetes mellitus. - Pulmonary: - Monitor respiratory status given history of COPD and recent pneumonia. - Provide smoking cessation counseling. - Cardiology: - Monitor cardiac status given elevated BNP and troponin levels. - Consider further cardiac evaluation to rule out acute coronary syndrome. - Physical Therapy: - Assist with mobility and strengthening exercises as tolerated. - Nutrition: - Assess nutritional status; provide dietary support to address weight loss. Isolation Precautions: Standard Plan discussed with: Other Dietary Evaluation Review Comments: [facility] low fat low cholesterol renal Standard diet Expected Outcomes/Goals: gradual wt loss ENDY CAMP MD Apr 26, 2024 23:54
[2024-04-27] VITALS (9 sets, daily range): BP systolic 145–166; BP diastolic 40–75; PULSE 54–90; RESP 18–19; TEMP 98.1–99.2; O2SAT 94–99
--- NOTE | 2024-04-27 00:55 | DVHEEG2 ---
Neurology EEG Procedural Note Procedural Note EXAM DATE: 04/26/2024 REFERRING DOCTOR: Dr. Cuellar TECHNIQUE: Eighteen channels of EEG, 2 channels of EOG, and 1 channel of EKG were recorded using the International 10/20 system. CLINICAL DATA: The patient was referred for an EEG evaluation for the evidence of seizure disorder. MEDICATIONS: See the chart BACKGROUND ACTIVITY: The background activity is consistent with poorly regulated 6 hertz waveform over both hemispheres, intermixed with a was diffuse low amplitude theta activity over both hemispheres ACTIVATION: Hyperventilation: Not done Photic Stimulation: Not down Sleep: Noticed IMPRESSION: This is a a mildly abnormal EEG, this EEG seen in mild cerebral dysfunction due to metabolic/hypoxic encephalopathy or medication effects, please correlate clinically The EKG channel showed a regular heart rate of 78 per [place] [address] KISHA CUELLAR MD Apr 27, 2024 00:55
[2024-04-27 07:45] LABS: Potassium 4.5 mmol/L (3.5-5.1)
[2024-04-27 07:46] LABS: Anion Gap 13 (5-15); Calcium 9.9 mg/dL (8.7-10.4); Carbon Dioxide 25 mmol/L (20-31)
[2024-04-27 07:51] LABS: BUN/Creatinine Ratio 5.1 (10.0-20.0)
[2024-04-27 07:53] LABS: Creatine Kinase IFCC 90 U/L (46-171)
[2024-04-27 07:57] LABS: Blood Urea Nitrogen 46 mg/dL (9-23); Chloride 92 mmol/L (98-107); Glucose 123 mg/dL (74-106); Sodium 130 mmol/L (136-145)
[2024-04-27] MEDS ORDERED: levoFLOXacin 250 MG TAB PO SCH (10:00)
--- NOTE | 2024-04-27 10:37 | DVHPN2 ---
Progress Note - Dictate Date Seen: Apr 27, 2024 Has the PT tested + for MRSA If YES, has PT been informed?: No Medical Necessity Reason Pt with a Central, PICC or Fol: No Subjective CONTINUES TO BE CONFUSED vital signs Vital Sign Date Time Temp Pulse Resp B/P (MAP) Pulse Ox O2 Delivery O2 Flow Rate FiO2 04/27/24 08:53 98.1 81 18 165/73 (103) 97 98.1 04/27/24 08:00 Room Air* 0 21 Total Intake and Output 04/26/24 04/26/24 04/27/24 15:00 23:00 07:00 Intake Total 1000 ml 240 ml Output Total 300 ml Balance 1000 ml -60 ml medications Current Medications Medications Dose Ordered Sig/Gerard Route Start Time Stop Time Status Last Admin Dose Admin Aspirin 81 mg DAILY PO 04/17/24 10:00 04/26/24 10:22 81 MG Clopidogrel Bisulfate 75 mg DAILY PO 04/17/24 10:00 04/26/24 10:23 75 MG Furosemide 40 mg DAILY IV 04/17/24 10:00 04/26/24 10:22 40 MG Hydralazine HCl 10 mg Q6HP PRN IV 04/16/24 14:00 04/24/24 18:24 10 MG Carvedilol 12.5 mg Q12HR PO 04/16/24 22:00 04/26/24 21:45 12.5 MG Amlodipine Besylate 5 mg DAILY PO 04/17/24 10:00 04/26/24 10:23 5 MG Atorvastatin Calcium 20 mg HS PO 04/16/24 22:00 04/26/24 21:44 20 MG Albuterol 2.5 mg Q4HPRN PRN NEB 04/16/24 14:00 Cancel Ipratropium [place] 0.5 mg Q4HPRN PRN NEB 04/16/24 14:00 Cancel Diagnostic Test (Pha) 1 strip ACHS 04/16/24 17:00 04/27/24 05:51 1 STRIP Insulin Human Regular ACHS SC 04/16/24 17:00 04/26/24 18:17 2 UNITS Dextrose 50 ml UD PRN IV 04/16/24 14:00 Sodium Chloride 10 ml Q8HR IV 04/16/24 14:00 04/27/24 05:50 10 ML Ondansetron HCl 4 mg Q4HP PRN IV 04/16/24 14:00 04/22/24 18:15 4 MG Docusate Sodium 100 mg BIDPRN PRN PO 04/16/24 14:00 04/19/24 16:16 100 MG Acetaminophen 650 mg Q6HP PRN PO 04/16/24 14:00 Sevelamer HCl 800 mg TIDWM PO 04/16/24 18:00 04/27/24 08:48 800 MG Multivit/Ca Carb/ B Cmplx/FA/Prenat 1 tab DAILY PO 04/17/24 10:00 04/26/24 10:22 1 TAB Nitroglycerin 0.4 mg Q5MINP PRN SL 04/16/24 16:30 Meropenem 50 ml @ 17 mls/hr HS IV 04/18/24 22:00 Cancel Daptomycin / Sodium Chloride 50 ml @ 100 mls/hr TUTHSA IV 04/19/24 21:00 UNV Vancomycin HCl 0 ml @ 0 mls/hr UD IV 04/18/24 21:30 Cancel Diazepam 5 mg DAILY PRN PO 04/21/24 16:30 04/25/24 16:52 5 MG Gabapentin 100 mg TID PO 04/21/24 22:00 04/27/24 05:50 100 MG Cyclobenzaprine HCl 10 mg Q8HPRN PRN PO 04/24/24 10:30 04/24/24 13:05 10 MG Hydromorphone HCl 0.25 mg Q4HPRN PRN IV 04/24/24 11:15 04/24/24 15:29 0.25 MG Lorazepam 1 mg ONCE PRN IV 04/25/24 22:45 Haloperidol Lactate 2.5 mg Q8HP PRN IM 04/25/24 22:45 Daptomycin 500 mg/ Sodium Chloride 50 ml @ 100 mls/hr NONDIALYSIS IV 04/26/24 13:00 Cancel Vancomycin HCl 0 ml @ 0 mls/hr UD IV 04/26/24 12:00 Levofloxacin 250 mg DAILY PO 04/27/24 10:00 Cancel Cefepime HCl 50 ml @ 12.5 mls/hr DAILY IV 04/27/24 10:00 objective HEENT: No evidence of JVD, no oral ulcers. Pulmonary: Lungs are clear on auscultation bilaterally Cardiovascular S1-S2, no S3 or S4 Abdomen: Bowel sounds positive, soft no rebound tenderness Skin: No rash Neurological: No deficits laboratory and microbiology Laboratory Tests 04/27/24 07:01 04/26/24 03:46 Test 04/27/24 07:01 Range/Units Serum Glucose 123 H 74-106 mg/dL Problem List 1. End-stage renal disease on hemodialysis 2. Chest pain 3. Pneumonia 4. Hypertension 5. L4-L5 spondylodiscitis and anterior prevertebral abscess 6. Anemia 7. CHF 8. Diabetes type 2 9. Intractable back pain 10. CAD status post multiple stentings 11.ALOC Assessment/Plan Hemodialysis today Neuro evaln appreciated continue IV abx Vanco can be given with HD in the outpt setting Dietary Evaluation Review Comments: [facility]-60 low fat low cholesterol renal Standard diet Expected Outcomes/Goals: gradual wt loss Plan discussed with: Other NETTIE LIVINGSTON MD Apr 27, 2024 10:37
[2024-04-27] MEDS: CEFEPIME 1GM/ 50ML 50 ML IV SCH (11:03)
--- NOTE | 2024-04-27 20:55 | DVHPN2 ---
Subjective Better More alert Changes from previous H/P or p: Changes Eyes: No Pain, No Vision change, No Conjunctivae inflammation, No Eyelid inflammation, No Other, No Redness ENT: No Ear pain, No Ear discharge, No Nose pain, No Nose discharge, No Nose congestion, No Mouth pain, No Mouth swelling, No Throat pain, No Throat swelling, No Other Cardiovascular: No Chest Pain, No Palpitations, No Orthopnea, No Paroxysmal Noc. Dyspnea, No Edema, No Lt Headedness, No Other Respiratory: No Cough, No Dry, No Shortness of breath, No SOB with excertion, No Wheezing, No Hemoptysis, No Pleuritic Pain, No Sputum, No Other Gastrointestinal: No Nausea, No Vomiting, No Abdominal Pain, No Diarrhea, No Constipation, No Melena, No Hematochezia, No Other Genitourinary: No Dysuria, No Frequency, No Incontinence, No Hematuria, No Retention, No Other Musculoskeletal: other (Bilateral leg weakness); No neck pain, No shoulder pain, No arm pain, No back pain, No hand pain; leg pain; No foot pain Skin: No Rash, No Lesions, No Jaundice, No Bruising, No Other Objective Vitals Vital Signs Date Time Temp Pulse Resp B/P (MAP) Pulse Ox O2 Delivery O2 Flow Rate FiO2 04/27/24 20:00 86 18 96 Room Air* 0 21 04/27/24 16:47 98.1 149/68 (95) 98.1 Intake/Output Intake and Output 04/27/24 07:00 Intake Total 1240 ml Output Total 300 ml Balance 940 ml Intake Oral 940 ml IV Total 300 ml Output Urine Total 300 ml # Bowel Movements 1 General Appearance: Alert, Oriented X3, Cooperative Lungs: Clear to auscultation, Normal air movement Cardiovascular: Regular rate, Normal S1 Abdomen: Normal bowel sounds, Soft Extremities: No edema Medications Current Medications Medications Dose Ordered Sig/Gerard Route Start Time Stop Time Status Last Admin Dose Admin Aspirin 81 mg DAILY PO 04/17/24 10:00 04/27/24 11:03 81 MG Clopidogrel Bisulfate 75 mg DAILY PO 04/17/24 10:00 04/27/24 11:02 75 MG Furosemide 40 mg DAILY IV 04/17/24 10:00 04/27/24 11:01 40 MG Hydralazine HCl 10 mg Q6HP PRN IV 04/16/24 14:00 04/24/24 18:24 10 MG Carvedilol 12.5 mg Q12HR PO 04/16/24 22:00 04/27/24 11:02 12.5 MG Amlodipine Besylate 5 mg DAILY PO 04/17/24 10:00 04/27/24 11:02 5 MG Atorvastatin Calcium 20 mg HS PO 04/16/24 22:00 04/26/24 21:44 20 MG Albuterol 2.5 mg Q4HPRN PRN NEB 04/16/24 14:00 Cancel Ipratropium [place] 0.5 mg Q4HPRN PRN NEB 04/16/24 14:00 Cancel Diagnostic Test (Pha) 1 strip ACHS 04/16/24 17:00 04/27/24 17:00 1 STRIP Insulin Human Regular ACHS SC 04/16/24 17:00 04/27/24 12:08 3 UNITS Dextrose 50 ml UD PRN IV 04/16/24 14:00 Sodium Chloride 10 ml Q8HR IV 04/16/24 14:00 04/27/24 14:00 10 ML Ondansetron HCl 4 mg Q4HP PRN IV 04/16/24 14:00 04/22/24 18:15 4 MG Docusate Sodium 100 mg BIDPRN PRN PO 04/16/24 14:00 04/19/24 16:16 100 MG Acetaminophen 650 mg Q6HP PRN PO 04/16/24 14:00 Sevelamer HCl 800 mg TIDWM PO 04/16/24 18:00 04/27/24 17:51 800 MG Multivit/Ca Carb/ B Cmplx/FA/Prenat 1 tab DAILY PO 04/17/24 10:00 04/27/24 11:01 1 TAB Nitroglycerin 0.4 mg Q5MINP PRN SL 04/16/24 16:30 Meropenem 50 ml @ 17 mls/hr HS IV 04/18/24 22:00 Cancel Daptomycin / Sodium Chloride 50 ml @ 100 mls/hr TUTHSA IV 04/19/24 21:00 UNV Vancomycin HCl 0 ml @ 0 mls/hr UD IV 04/18/24 21:30 Cancel Diazepam 5 mg DAILY PRN PO 04/21/24 16:30 04/25/24 16:52 5 MG Gabapentin 100 mg TID PO 04/21/24 22:00 04/27/24 05:50 100 MG Cyclobenzaprine HCl 10 mg Q8HPRN PRN PO 04/24/24 10:30 04/24/24 13:05 10 MG Hydromorphone HCl 0.25 mg Q4HPRN PRN IV 04/24/24 11:15 04/24/24 15:29 0.25 MG Lorazepam 1 mg ONCE PRN IV 04/25/24 22:45 Haloperidol Lactate 2.5 mg Q8HP PRN IM 04/25/24 22:45 Daptomycin 500 mg/ Sodium Chloride 50 ml @ 100 mls/hr NONDIALYSIS IV 04/26/24 13:00 Cancel Vancomycin HCl 0 ml @ 0 mls/hr UD IV 04/26/24 12:00 Levofloxacin 250 mg DAILY PO 04/27/24 10:00 Cancel Cefepime HCl 50 ml @ 12.5 mls/hr DAILY IV 04/27/24 10:00 04/27/24 11:03 12.5 MLS/HR Laboratory Results Laboratory Tests 04/26/24 03:46 04/27/24 07:01 Chemistry Test 04/27/24 07:01 Calcium Level 9.9 mg/dL (8.7-10.4) Urinalysis Test 04/16/24 03:30 Urine Color Light-yellow (Yellow) Urine Clarity Clear (Clear) Urine pH 8.5 (5.0-9.0) Urine Specific [place] 1.012 (1.001-1.035) Urine Protein 3+ (Negative) H Urine Ketones Negative (Negative) Urine Blood Negative /uL (Negative) Urine Nitrite Negative (Negative) Urine Bilirubin Negative (Negative) Urine Urobilinogen Normal mg/dL (Negative) Urine Leukocyte Esterase Trace /uL (Negative) Urine RBC 2 /hpf (0 - 3) Urine Microscopic WBC 10 /HPF (0-3) H Urine Squamous Epithelial Cells Few /hpf (<5) Urine Bacteria None seen /hpf (None Seen) Urine Glucose 2+ mg/dL (Normal) H Microbiology Microbiology Date/Time Source Procedure Growth Status 04/19/24 21:32 Nose MRSA Screen - Final Complete 04/19/24 19:31 Blood Blood Culture - Final NO GROWTH AFTER 5 DAYS OF INCUBATION. Complete Assessment/Plan Assessment/Plan Intractable lower back pain Hyperkalemia End-stage renal disease on hemodialysis Generalized weakness Possible underlying pneumonia Chronic anemia of chronic kidney disease Chest pain most likely noncardiac Coronary artery disease status post PTCA x6 on aspirin and Plavix Acute on chronic heart failure with reduced ejection fraction last ejection fraction 35% Obesity Tobacco use Type 2 diabetes Dyslipidemia Hypertension Plan Get a CT scan of the lumbar spine to rule out abscess since the patient says he was diagnosed with an abscess lately and was given oral Cipro from [facility] Hemodialysis to be done today Nephrology consult Cardiology consult Pain management with morphine and [place] as needed Physical therapy evaluation Full code Discussed with the the patient and with his over the phone Advance directives discussed for 20 minutes 04/18/2024: Lumbar spine L4-L5 diskitis with anterior prevertebral abscess Degenerative disc disease of the lumbar spine End-stage renal disease Hyperkalemia Plan: Start broad-spectrum antibiotics with meropenem and vancomycin Infectious Disease consultation Spinal surgery consultation Hemodialysis per nephrology Repeat the labs Monitor the patient closely 04/19/2024: Continue IV antibiotics ID consult Spinal surgery recommended conservative treatment with IV antibiotics If the patient will need only IV vancomycin then he can get it at the dialysis Treatment plan discussed with the patient and his over the phone He is complaining of more pain in his back and not relieved by the current regimen and therefore we will increase morphine to 4 mg IV every 4 hours p.r.n. and increase the [place] to 2 tablets q.6 hours p.r.n. The rest of the management will depend on the hospital course Hemodialysis per nephrology 04/20/2024: Continue IV antibiotics with Rocephin and vancomycin Discussed with ID and Nephrology, since the patient can not have a PICC line, we will do a tunneled central line by IR Patient can then be discharged home on IV vancomycin with dialysis and IV Rocephin daily by home health Continue pain management The rest of the management will depend on the hospital course 04/21/2024: Continue IV antibiotics Tunneled central line to be done on Tuesday Lower the dose of morphine to minimize the side effects [place] as needed Discharge planning once the central line is done and IV antibiotics are ordered Neutropenia: Place on neutropenic precautions Hyperkalemia: Dialysis per Nephrology 04/22/2024: Continue the current regimen of IV antibiotics Waiting for the central line to be done Discharge planning was central line is done Hemodialysis per nephrology 04/23/24: Order home health for IV antibiotics: Vanco with HD + Rocephin 2 gm q 12 h x 6 weeks Tunnelled central line pending Pain control Continue physical therapy HD per nephrology 04/24/2024: Confusion, delirium: The patient has a sitter at the bedside, discontinue morphine and [place], give Dilaudid low dose instead Back pain: Dilaudid for pain control, Flexeril p.r.n. Continue IV antibiotics Tunneled central line is done for IV antibiotics at home IV antibiotics ordered for home with home health however the patient is confused now, we will have to wait until he is alert and oriented 4 discharged Hemodialysis per Nephrology 04/25/2024: Delirium: Possible complex seizures History of pseudoseizures Back pain due to spinal abscess Spinal abscess and diskitis on IV antibiotics End-stage renal disease hemodialysis today Neurology consult regarding altered level of conscious Monitor closely 04/26/2024: EEG today MRI and CT scan of the brain was negative Neurology consult Hemodialysis as scheduled The patient's insurance does not cover home IV antibiotics and therefore he will have to have the antibiotics with dialysis, we will discuss with our infectious disease specialist to see what you regimen he would need at home 04/27/24: Discussed care plan with Dr. Herrmann: Hemodialysis cannot provide Cefepime, they can only do Vancomycin with HD Discussed with Dr. Cronin, he advises to send the patient on IV Vanco w HD plus PO Levaquin The patient is getting better mentally Keep in hospital until Tuesday He is very weak, still confused, not able to ambulate DC home next week once he is ambulatory Continue physical therapy Plan discussed with: Patient, Other Date of Service: Apr 27, 2024 Billing Provider: SADAF SANTANA MD Common Visit Codes: [id number] INP/OBS CARE(HIGH) SADAF SANTANA MD Apr 27, 2024 20:55
[2024-04-27] MEDS: EPOETIN ALFA-EPBX 4,000 UNIT/ML VIAL SC ONE (21:00)
--- NOTE | 2024-04-27 21:24 | DVHPN2 ---
Progress Note - Dictate Date Seen: Apr 27, 2024 Has the PT tested + for MRSA If YES, has PT been informed?: No Medical Necessity Reason Pt with a Central, PICC or Fol: No Subjective Mr. Mckee is a 59 years old gentleman with a history of hypertension, coronary artery disease, congestive heart failure, COPD, end-stage kidney failure on hemodialysis, he was brought to the [facility] on 04/15/2024 with a chief company of shortness of breath. I have seen and examined the patient, I have talked his nurse and YULIYA santamaria reports that the patient was more mentally altered when the was in the room with him. He was up to the chair At that time, he is awake, he was able to operate smart phone, he is oriented to person, place, he knows year, socially appropriate Blood culture, 04/19/2024: No growth Urinalysis, 04/16/2024: WBC: 10, urine leukocyte esterase: Trace WBC/HB/PLT/MCV, 04/21/2024: 1.7/9.7/175/91.6, 04/25/2024: 2.3/10.9/252/89.5 BUN/CR, 04/25/2024: 75/6.82 Liver function tests, 04/25/2024: Unremarkable Hepatitis panel, Vitamin B12, 04/25/2024: 163 Folic acid, 04/25/2024: 11.67 TSH, 04/25/2024: 3.04 EEG, 04/27/2024: Mildly abnormal CT head, 04/25/2024: No acute intracranial abnormality MRI head, 04/26/2024:No acute infarct, intracranial hemorrhage, mass effect, or hydrocephalus MRI lumbar spine, 04/18/2024: 1. Findings most compatible with L4-L5 spondylodiscitis an anterior prevertebral abscess. Recommend neurosurgical consultation. No epidural abscess identified in the unenhanced study. 2. Grade 1 anterolisthesis at L5-S1 due to bilateral L5 pars defects. 3. Multilevel degenerative disc disease and posterior facet arthropathy with evidence of nerve impingement at L4-L5 and L5-S1 levels vital signs Vital Sign Date Time Temp Pulse Resp B/P (MAP) Pulse Ox O2 Delivery O2 Flow Rate FiO2 04/27/24 20:00 86 18 96 Room Air* 0 21 04/27/24 16:47 98.1 149/68 (95) 98.1 Total Intake and Output 04/26/24 04/26/24 04/27/24 15:00 23:00 07:00 Intake Total 1000 ml 240 ml Output Total 300 ml Balance 1000 ml -60 ml medications Current Medications Medications Dose Ordered Sig/Gerard Route Start Time Stop Time Status Last Admin Dose Admin Aspirin 81 mg DAILY PO 04/17/24 10:00 04/27/24 11:03 81 MG Clopidogrel Bisulfate 75 mg DAILY PO 04/17/24 10:00 04/27/24 11:02 75 MG Furosemide 40 mg DAILY IV 04/17/24 10:00 04/27/24 11:01 40 MG Hydralazine HCl 10 mg Q6HP PRN IV 04/16/24 14:00 04/24/24 18:24 10 MG Carvedilol 12.5 mg Q12HR PO 04/16/24 22:00 04/27/24 11:02 12.5 MG Amlodipine Besylate 5 mg DAILY PO 04/17/24 10:00 04/27/24 11:02 5 MG Atorvastatin Calcium 20 mg HS PO 04/16/24 22:00 04/26/24 21:44 20 MG Albuterol 2.5 mg Q4HPRN PRN NEB 04/16/24 14:00 Cancel Ipratropium [place] 0.5 mg Q4HPRN PRN NEB 04/16/24 14:00 Cancel Diagnostic Test (Pha) 1 strip ACHS 04/16/24 17:00 04/27/24 17:00 1 STRIP Insulin Human Regular ACHS SC 04/16/24 17:00 04/27/24 12:08 3 UNITS Dextrose 50 ml UD PRN IV 04/16/24 14:00 Sodium Chloride 10 ml Q8HR IV 04/16/24 14:00 04/27/24 14:00 10 ML Ondansetron HCl 4 mg Q4HP PRN IV 04/16/24 14:00 04/22/24 18:15 4 MG Docusate Sodium 100 mg BIDPRN PRN PO 04/16/24 14:00 04/19/24 16:16 100 MG Acetaminophen 650 mg Q6HP PRN PO 04/16/24 14:00 Sevelamer HCl 800 mg TIDWM PO 04/16/24 18:00 04/27/24 17:51 800 MG Multivit/Ca Carb/ B Cmplx/FA/Prenat 1 tab DAILY PO 04/17/24 10:00 04/27/24 11:01 1 TAB Nitroglycerin 0.4 mg Q5MINP PRN SL 04/16/24 16:30 Meropenem 50 ml @ 17 mls/hr HS IV 04/18/24 22:00 Cancel Daptomycin / Sodium Chloride 50 ml @ 100 mls/hr TUTHSA IV 04/19/24 21:00 UNV Vancomycin HCl 0 ml @ 0 mls/hr UD IV 04/18/24 21:30 Cancel Diazepam 5 mg DAILY PRN PO 04/21/24 16:30 04/25/24 16:52 5 MG Gabapentin 100 mg TID PO 04/21/24 22:00 04/27/24 05:50 100 MG Cyclobenzaprine HCl 10 mg Q8HPRN PRN PO 04/24/24 10:30 04/24/24 13:05 10 MG Hydromorphone HCl 0.25 mg Q4HPRN PRN IV 04/24/24 11:15 04/24/24 15:29 0.25 MG Lorazepam 1 mg ONCE PRN IV 04/25/24 22:45 Haloperidol Lactate 2.5 mg Q8HP PRN IM 04/25/24 22:45 Daptomycin 500 mg/ Sodium Chloride 50 ml @ 100 mls/hr NONDIALYSIS IV 04/26/24 13:00 Cancel Vancomycin HCl 0 ml @ 0 mls/hr UD IV 04/26/24 12:00 Levofloxacin 250 mg DAILY PO 04/27/24 10:00 Cancel Cefepime HCl 50 ml @ 12.5 mls/hr DAILY IV 04/27/24 10:00 04/27/24 11:03 12.5 MLS/HR objective General: the patient is well developed and nourished. No acute distress. MUSCULOSKELETAL EXAM: No tenderness to palpation in the lumbar spine MENTAL STATUS: Awake , only oriented to himself SPEECH, LANGUAGE, HIGHER CORTICAL FUNCTION: no aphasia or dysathria. CRANIAL NERVES: Pupils are equal, round and reactive. EOMs full and conjugate. Facial sensation intact in all three divisions bilaterally. Mandibular strength intact. Facial muscles symmetrical and strength intact. SENSATION: Sensation to touch and pinprick is normal. MOTOR: Normal tone in the upper and lower extremity. Normal muscle bulk. No fasciculations. No abnormal movements or posturing. Muscle strength of the major groups in the extremities is 5/5. REFLEXES: Deep tendon reflexes are symmetrical. No pathological reflexes. CEREBELLAR/COORDINATION: Deferred GAIT/STATION: deferred laboratory and microbiology Laboratory Tests 04/27/24 07:01 04/26/24 03:46 Test 04/27/24 07:01 Range/Units Serum Glucose 123 H 74-106 mg/dL Problem List Reported nonepileptic seizure Metabolic encephalopathy, better Diskitis/anterior prevertebral abscess Urinary tract infection Leukopenia, improving Assessment/Plan Monitoring Supportive treatment Telemetry IV antibiotics Aspirin 81 mg daily Lipitor 20 mg daily Gabapentin 100 mg t.i.d. Haldol 2.5 mg intramuscular Q 8 hours p.r.n. for agitation More recommendation per clinical course This medical document was created using an electronic medical record system with [employer] dictation system. Although this document has been carefully reviewed, there may still be some phonetic and typographical errors. These areas are purely typographical due to imperfections of the software programs, and do not reflect any compromise in the patient's medical care Prognosis poor Dietary Evaluation Review Comments: CCHO-60 low fat low cholesterol renal Standard diet Expected Outcomes/Goals: gradual wt loss Plan discussed with: KISHA Caballero MD Apr 27, 2024 21:24
[2024-04-28] VITALS (9 sets, daily range): BP systolic 112–165; BP diastolic 46–76; PULSE 63–86; RESP 17–19; TEMP 97.4–98.7; O2SAT 94–98
--- NOTE | 2024-04-28 16:23 | DVHPN2 ---
Progress Note - Dictate Date Seen: Apr 28, 2024 Has the PT tested + for MRSA If YES, has PT been informed?: No Medical Necessity Reason Pt with a Central, PICC or Fol: No Subjective No acute issues overnight. vital signs Vital Sign Date Time Temp Pulse Resp B/P (MAP) Pulse Ox O2 Delivery O2 Flow Rate FiO2 04/28/24 15:29 78 18 161/71 04/28/24 12:41 97.7 98 97.7 04/28/24 08:00 Room Air* 0 21 Total Intake and Output 04/27/24 04/27/24 04/28/24 15:00 23:00 07:00 Intake Total 150 ml 920 ml 400 ml Output Total 400 ml Balance 150 ml 520 ml 400 ml medications Current Medications Medications Dose Ordered Sig/Gerard Route Start Time Stop Time Status Last Admin Dose Admin Aspirin 81 mg DAILY PO 04/17/24 10:00 04/28/24 09:57 81 MG Clopidogrel Bisulfate 75 mg DAILY PO 04/17/24 10:00 04/28/24 09:58 75 MG Furosemide 40 mg DAILY IV 04/17/24 10:00 04/28/24 09:57 40 MG Hydralazine HCl 10 mg Q6HP PRN IV 04/16/24 14:00 04/24/24 18:24 10 MG Carvedilol 12.5 mg Q12HR PO 04/16/24 22:00 04/28/24 09:58 12.5 MG Amlodipine Besylate 5 mg DAILY PO 04/17/24 10:00 04/28/24 09:59 5 MG Atorvastatin Calcium 20 mg HS PO 04/16/24 22:00 04/27/24 21:52 20 MG Albuterol 2.5 mg Q4HPRN PRN NEB 04/16/24 14:00 Cancel Ipratropium [place] 0.5 mg Q4HPRN PRN NEB 04/16/24 14:00 Cancel Diagnostic Test (Pha) 1 strip ACHS 04/16/24 17:00 04/28/24 12:52 1 STRIP Insulin Human Regular ACHS SC 04/16/24 17:00 04/28/24 13:00 2 UNITS Dextrose 50 ml UD PRN IV 04/16/24 14:00 Sodium Chloride 10 ml Q8HR IV 04/16/24 14:00 04/28/24 14:32 10 ML Ondansetron HCl 4 mg Q4HP PRN IV 04/16/24 14:00 04/22/24 18:15 4 MG Docusate Sodium 100 mg BIDPRN PRN PO 04/16/24 14:00 04/19/24 16:16 100 MG Acetaminophen 650 mg Q6HP PRN PO 04/16/24 14:00 Sevelamer HCl 800 mg TIDWM PO 04/16/24 18:00 04/28/24 12:51 800 MG Multivit/Ca Carb/ B Cmplx/FA/Prenat 1 tab DAILY PO 04/17/24 10:00 04/28/24 09:57 1 TAB Nitroglycerin 0.4 mg Q5MINP PRN SL 04/16/24 16:30 Meropenem 50 ml @ 17 mls/hr HS IV 04/18/24 22:00 Cancel Daptomycin / Sodium Chloride 50 ml @ 100 mls/hr TUTHSA IV 04/19/24 21:00 UNV Vancomycin HCl 0 ml @ 0 mls/hr UD IV 04/18/24 21:30 Cancel Diazepam 5 mg DAILY PRN PO 04/21/24 16:30 04/25/24 16:52 5 MG Gabapentin 100 mg TID PO 04/21/24 22:00 04/28/24 14:32 100 MG Cyclobenzaprine HCl 10 mg Q8HPRN PRN PO 04/24/24 10:30 04/24/24 13:05 10 MG Hydromorphone HCl 0.25 mg Q4HPRN PRN IV 04/24/24 11:15 04/28/24 15:29 0.25 MG Lorazepam 1 mg ONCE PRN IV 04/25/24 22:45 Haloperidol Lactate 2.5 mg Q8HP PRN IM 04/25/24 22:45 Daptomycin 500 mg/ Sodium Chloride 50 ml @ 100 mls/hr NONDIALYSIS IV 04/26/24 13:00 Cancel Vancomycin HCl 0 ml @ 0 mls/hr UD IV 04/26/24 12:00 Levofloxacin 250 mg DAILY PO 04/27/24 10:00 Cancel Ceftazidime/ Dextrose 0.5 gm/ Sodium Chloride 50 ml @ 16.667 mls/ hr DAILY@1800 IV 04/29/24 18:00 objective HEENT: No evidence of JVD, no oral ulcers. Pulmonary: Lungs are clear on auscultation bilaterally Cardiovascular S1-S2, no S3 or S4 Abdomen: Bowel sounds positive, soft no rebound tenderness Skin: No rash Neurological: No deficits laboratory and microbiology Laboratory Tests 04/27/24 07:01 04/26/24 03:46 Test 04/27/24 07:01 Range/Units Serum Glucose 123 H 74-106 mg/dL Problem List 1. End-stage renal disease on hemodialysis 2. Chest pain 3. Pneumonia 4. Hypertension 5. L4-L5 spondylodiscitis and anterior prevertebral abscess 6. Anemia 7. CHF 8. Diabetes type 2 9. Intractable back pain 10. CAD status post multiple stentings 11.ALOC Assessment/Plan Hemodialysis on MWF schedule Patient to receive vancomycin and ceftazidime x6 weeks for spinal abscess. [facility]ary Evaluation Review Comments[facility] fat low cholesterol renal Standard diet Expected Outcomes/Goals: gradual wt loss Plan discussed with: Other NETTIE LIVINGSTON MD Apr 28, 2024 16:23
--- NOTE | 2024-04-28 17:27 | DVHPN2 ---
Consult Progress Note Date Seen: Apr 27, 2024 Subjective Patient reports: Other (not haivng any delirium or confusion ) Objective vital signs Vital Sign Date Time Temp Pulse Resp B/P (MAP) Pulse Ox O2 Delivery O2 Flow Rate FiO2 04/28/24 15:29 78 18 161/71 04/28/24 12:41 97.7 98 97.7 04/28/24 08:00 Room Air* 0 21 Total Intake and Output 04/27/24 04/27/24 04/28/24 15:00 23:00 07:00 Intake Total 150 ml 920 ml 400 ml Output Total 400 ml Balance 150 ml 520 ml 400 ml medications Current Medications Medications Dose Ordered Sig/Gerard Route Start Time Stop Time Status Last Admin Dose Admin Aspirin 81 mg DAILY PO 04/17/24 10:00 04/28/24 09:57 81 MG Clopidogrel Bisulfate 75 mg DAILY PO 04/17/24 10:00 04/28/24 09:58 75 MG Furosemide 40 mg DAILY IV 04/17/24 10:00 04/28/24 09:57 40 MG Hydralazine HCl 10 mg Q6HP PRN IV 04/16/24 14:00 04/24/24 18:24 10 MG Carvedilol 12.5 mg Q12HR PO 04/16/24 22:00 04/28/24 09:58 12.5 MG Amlodipine Besylate 5 mg DAILY PO 04/17/24 10:00 04/28/24 09:59 5 MG Atorvastatin Calcium 20 mg HS PO 04/16/24 22:00 04/27/24 21:52 20 MG Albuterol 2.5 mg Q4HPRN PRN NEB 04/16/24 14:00 Cancel Ipratropium [place] 0.5 mg Q4HPRN PRN NEB 04/16/24 14:00 Cancel Diagnostic Test (Pha) 1 strip ACHS 04/16/24 17:00 04/28/24 12:52 1 STRIP Insulin Human Regular ACHS SC 04/16/24 17:00 04/28/24 13:00 2 UNITS Dextrose 50 ml UD PRN IV 04/16/24 14:00 Sodium Chloride 10 ml Q8HR IV 04/16/24 14:00 04/28/24 14:32 10 ML Ondansetron HCl 4 mg Q4HP PRN IV 04/16/24 14:00 04/22/24 18:15 4 MG Docusate Sodium 100 mg BIDPRN PRN PO 04/16/24 14:00 04/19/24 16:16 100 MG Acetaminophen 650 mg Q6HP PRN PO 04/16/24 14:00 Sevelamer HCl 800 mg TIDWM PO 04/16/24 18:00 04/28/24 12:51 800 MG Multivit/Ca Carb/ B Cmplx/FA/Prenat 1 tab DAILY PO 04/17/24 10:00 04/28/24 09:57 1 TAB Nitroglycerin 0.4 mg Q5MINP PRN SL 04/16/24 16:30 Meropenem 50 ml @ 17 mls/hr HS IV 04/18/24 22:00 Cancel Daptomycin / Sodium Chloride 50 ml @ 100 mls/hr TUTHSA IV 04/19/24 21:00 UNV Vancomycin HCl 0 ml @ 0 mls/hr UD IV 04/18/24 21:30 Cancel Diazepam 5 mg DAILY PRN PO 04/21/24 16:30 04/25/24 16:52 5 MG Gabapentin 100 mg TID PO 04/21/24 22:00 04/28/24 14:32 100 MG Cyclobenzaprine HCl 10 mg Q8HPRN PRN PO 04/24/24 10:30 04/24/24 13:05 10 MG Hydromorphone HCl 0.25 mg Q4HPRN PRN IV 04/24/24 11:15 04/28/24 15:29 0.25 MG Lorazepam 1 mg ONCE PRN IV 04/25/24 22:45 Haloperidol Lactate 2.5 mg Q8HP PRN IM 04/25/24 22:45 Daptomycin 500 mg/ Sodium Chloride 50 ml @ 100 mls/hr NONDIALYSIS IV 04/26/24 13:00 Cancel Vancomycin HCl 0 ml @ 0 mls/hr UD IV 04/26/24 12:00 Levofloxacin 250 mg DAILY PO 04/27/24 10:00 Cancel Ceftazidime/ Dextrose 0.5 gm/ Sodium Chloride 50 ml @ 16.667 mls/ hr DAILY@1800 IV 04/29/24 18:00 Physical Exam: General: NAD Neck: Supple. No masses. HEENT: PERRL. Normal lids and conjunctiva. Moist mucous membranes. Oropharynx without lesions, exudates, or excessive erythema. Normal appearance of the external aspects of the nose and ears. Heart: Regular rhythm, normal rate. No murmur. No lower extremity edema. Lungs: Normal respiratory effort. Clear to auscultation bilaterally. No wheezes. No crackles. Abdomen: Soft. Non-tender. Non-distended. No masses or abdominal hernia. MSK: - Strength: 2/5 strength in bilateral lower extremities. - Sensation: Intact to soft touch in all four limbs. - Spinal tenderness noted in the lumbar region. - No digital cyanosis. Normal strength and tone in upper extremities. Skin: Warm and dry, no rashes. Neuro: Alert. No facial droop or slurred speech. Extraocular movements intact. Psych: Appropriate mood. Full affect. Oriented to person, place, time, and situation. laboratory and microbiology Laboratory Tests 04/27/24 07:01 04/26/24 03:46 Test 04/27/24 07:01 Range/Units Serum Glucose 123 H 74-106 mg/dL Problem List/Assessment/Plan Problems(with codes): (1) Chronic back pain (2) ESRD (end stage renal disease) (3) Shortness of breath (4) Pneumonia, unspecified organism (5) Acute on chronic systolic heart failure (6) End stage renal disease on dialysis (7) Acute chest pain (8) Bilateral leg weakness (9) Inability to walk (10) Chest pain Problem List/Assessment/Plan ID Problem List: - Prevertebral abscess - Lumbar osteomyelitis/discitis - Bilateral lower extremity weakness - ESRD on dialysis - Seizure disorder - Hypertension COPD - Uncontrolled diabetes mellitus - Coronary artery disease, status post CABG and PTCA - History of pneumonia - History of buttock abscess with MRSA and E. coli infections Assessment This is a 59-year-old male with a past medical history of end-stage renal disease on dialysis, seizure disorder, hypertension, COPD, uncontrolled diabetes mellitus, and coronary artery disease status post CABG and PTCA, who presents with acute chest pain, shortness of breath, bilateral leg pain, inability to walk, and leg weakness. His symptoms have been worsening over the last several months, with health declining since February, necessitating the use of a walker for assistance. He was recently seen at an outside facility two days ago for unclear reasons; prior to this, he had pneumonia. He reports no current shortness of breath, dizziness, chest pain, fevers, or chills. He endorses weight loss and ongoing back pain in the lumbar region. Physical examination is notable for 2/5 strength in the bilateral lower extremities with full sensation, and spinal tenderness in the lumbar region. Laboratory studies reveal WBC 4.7, hemoglobin 10.2, platelet count 238, BUN 39, creatinine 7.2, glucose 126, BNP 1793, troponin 3.19. Chest X-ray shows opacities/infiltrates in both lung bases greater on the left side, markedly improved compared to prior thoracic imaging. MRI of the lumbar spine demonstrates findings most compatible with osteomyelitis/discitis with anterior vertebral abscess. No epidural abscess identified. Grade 1 anterior listhesis of L5 on S1 due to bilateral L5 pars defects. Multilevel degenerative disc disease with posterior facet arthropathy with evidence of nerve impingement at L4-L5 and L5-S1 levels. 04/19: appears to be clinically asymptomatic with exception of lower extremity weakness 04/20: Patients Chest , abdomen and pelvis Ct showed reticular opacities in the peripheral aspects of the lungs , mild super imposed lung opacities vs viral pneumonia similar to finding on 02/17/24. readministration of osteomyelitis L4 L5 associated with abscess , a visualized upper gluteal region is unremarkable with no evidence of ulcer abscess or sacral coxial erosion , their is moderate fecal retention and mild rectal fecal impaction tte wo vegetations 04/21: whitecount has downtred to 1.7 unclear ideology patients heart failure diagnosis is new with calcification of aortic valve 2: patients heart failure diagnosis is new 04/23: Vancomycin trots have been supra therapeutic elevated creatine of 31.2 and dose has been adjusted 04/24: whitecount is 2.2 , having some leukopenia and BUN is 39 , primarily neutrophilic loss and an unclear etiology for patients delirium 2: neurology evaluated patient and suspects largely organic/metabolic delirium , continues to be leukopenia 04/26: patient cannot get home antibiotics 04/27: delirium appears resolved , dialysis center is unable to provide cefapime Plan: - start ceftazodine for 6 weeks via dialysis - patient can get antibiotics via dialysis - leukopenia likely related to high vancomycin trots and patient has been difficult to dose in setting of renal failure - STOP cefapime - continue vancomycin for 6 weeks with dialysis - would exercise delirium precautions , avoiding lab sticks and waking at night , keeping patient near window open light during the day - would hold off on KAMI for now and can get the workup as outpatient to see if patient needs additional remedies for endocarditis - follow up with infectious disease in 4 weeks , patient may need a longer coarse of antibiotics and maybe oral treatment until epidural abscess is resolved on MRI - defer electromagnetic leg weakness and need for additional physical therapy and mobility issued to primary service - follow up with neurosurgery as an outpatient and advise patient should additional neurological deficits develop or fevers recur on antibiotics or bowel/urinary incontinents patient should come to the emergency room for further evaluation - Infectious Disease: - Initiate broad-spectrum antibiotics covering likely organisms, including MRSA and E. coli, pending culture results. vancomycin and ceftriaxone 2gq 12hrs. - Obtain blood cultures and inflammatory markers - Neurosurgery Consult: - Evaluate for possible surgical intervention for vertebral abscess and spinal instability.--> defer to dr hodge's who is recommending medical conservative management with IV abx. - Renal: - Continue hemodialysis as scheduled. - Monitor renal function and electrolytes closely. - Neurology: - Monitor for signs of neurological deterioration. - Endocrinology: - Optimize glycemic control for uncontrolled diabetes mellitus. - Pulmonary: - Monitor respiratory status given history of COPD and recent pneumonia. - Provide smoking cessation counseling. - Cardiology: - Monitor cardiac status given elevated BNP and troponin levels. - Consider further cardiac evaluation to rule out acute coronary syndrome. - Physical Therapy: - Assist with mobility and strengthening exercises as tolerated. - Nutrition: - Assess nutritional status; provide dietary support to address weight loss. Isolation Precautions: Standard Plan discussed with: Other Dietary Evaluation Review Comments[facility] low fat low cholesterol renal Standard diet Expected Outcomes/Goals: gradual wt loss ENDY CAMP MD Apr 28, 2024 17:27
--- NOTE | 2024-04-28 18:17 | DVHPN2 ---
Subjective in bed resting Changes from previous H/P or p: No Changes Eyes: No Pain, No Vision change, No Conjunctivae inflammation, No Eyelid inflammation, No Other, No Redness ENT: No Ear pain, No Ear discharge, No Nose pain, No Nose discharge, No Nose congestion, No Mouth pain, No Mouth swelling, No Throat pain, No Throat swelling, No Other Cardiovascular: No Chest Pain, No Palpitations, No Orthopnea, No Paroxysmal Noc. Dyspnea, No Edema, No Lt Headedness, No Other Respiratory: No Cough, No Dry, No Shortness of breath, No SOB with excertion, No Wheezing, No Hemoptysis, No Pleuritic Pain, No Sputum, No Other Gastrointestinal: No Nausea, No Vomiting, No Abdominal Pain, No Diarrhea, No Constipation, No Melena, No Hematochezia, No Other Genitourinary: No Dysuria, No Frequency, No Incontinence, No Hematuria, No Retention, No Other Musculoskeletal: other (Bilateral leg weakness); No neck pain, No shoulder pain, No arm pain, No back pain, No hand pain; leg pain; No foot pain Skin: No Rash, No Lesions, No Jaundice, No Bruising, No Other Objective Vitals Vital Signs Date Time Temp Pulse Resp B/P (MAP) Pulse Ox O2 Delivery O2 Flow Rate FiO2 04/28/24 17:00 97.4 83 17 165/76 (105) 96 97.4 04/28/24 08:00 Room Air* 0 21 Intake/Output Intake and Output 04/28/24 07:00 Intake Total 1470 ml Output Total 400 ml Balance 1070 ml Intake Oral 1420 ml IV Total 50 ml Output Urine Total 400 ml Stool Total 0 ml General Appearance: Alert, Oriented X3, Cooperative Lungs: Clear to auscultation, Normal air movement Cardiovascular: Regular rate, Normal S1 Abdomen: Normal bowel sounds, Soft Extremities: No edema Medications Current Medications Medications Dose Ordered Sig/Gerard Route Start Time Stop Time Status Last Admin Dose Admin Aspirin 81 mg DAILY PO 04/17/24 10:00 04/28/24 09:57 81 MG Clopidogrel Bisulfate 75 mg DAILY PO 04/17/24 10:00 04/28/24 09:58 75 MG Furosemide 40 mg DAILY IV 04/17/24 10:00 04/28/24 09:57 40 MG Hydralazine HCl 10 mg Q6HP PRN IV 04/16/24 14:00 04/24/24 18:24 10 MG Carvedilol 12.5 mg Q12HR PO 04/16/24 22:00 04/28/24 09:58 12.5 MG Amlodipine Besylate 5 mg DAILY PO 04/17/24 10:00 04/28/24 09:59 5 MG Atorvastatin Calcium 20 mg HS PO 04/16/24 22:00 04/27/24 21:52 20 MG Albuterol 2.5 mg Q4HPRN PRN NEB 04/16/24 14:00 Cancel Ipratropium [place] 0.5 mg Q4HPRN PRN NEB 04/16/24 14:00 Cancel Diagnostic Test (Pha) 1 strip ACHS 04/16/24 17:00 04/28/24 17:46 1 STRIP Insulin Human Regular ACHS SC 04/16/24 17:00 04/28/24 17:54 2 UNITS Dextrose 50 ml UD PRN IV 04/16/24 14:00 Sodium Chloride 10 ml Q8HR IV 04/16/24 14:00 04/28/24 14:32 10 ML Ondansetron HCl 4 mg Q4HP PRN IV 04/16/24 14:00 04/22/24 18:15 4 MG Docusate Sodium 100 mg BIDPRN PRN PO 04/16/24 14:00 04/19/24 16:16 100 MG Acetaminophen 650 mg Q6HP PRN PO 04/16/24 14:00 Sevelamer HCl 800 mg TIDWM PO 04/16/24 18:00 04/28/24 17:46 800 MG Multivit/Ca Carb/ B Cmplx/FA/Prenat 1 tab DAILY PO 04/17/24 10:00 04/28/24 09:57 1 TAB Nitroglycerin 0.4 mg Q5MINP PRN SL 04/16/24 16:30 Meropenem 50 ml @ 17 mls/hr HS IV 04/18/24 22:00 Cancel Daptomycin / Sodium Chloride 50 ml @ 100 mls/hr TUTHSA IV 04/19/24 21:00 UNV Vancomycin HCl 0 ml @ 0 mls/hr UD IV 04/18/24 21:30 Cancel Diazepam 5 mg DAILY PRN PO 04/21/24 16:30 04/25/24 16:52 5 MG Gabapentin 100 mg TID PO 04/21/24 22:00 04/28/24 14:32 100 MG Cyclobenzaprine HCl 10 mg Q8HPRN PRN PO 04/24/24 10:30 04/24/24 13:05 10 MG Hydromorphone HCl 0.25 mg Q4HPRN PRN IV 04/24/24 11:15 04/28/24 15:29 0.25 MG Lorazepam 1 mg ONCE PRN IV 04/25/24 22:45 Haloperidol Lactate 2.5 mg Q8HP PRN IM 04/25/24 22:45 Daptomycin 500 mg/ Sodium Chloride 50 ml @ 100 mls/hr NONDIALYSIS IV 04/26/24 13:00 Cancel Vancomycin HCl 0 ml @ 0 mls/hr UD IV 04/26/24 12:00 Levofloxacin 250 mg DAILY PO 04/27/24 10:00 Cancel Ceftazidime/ Dextrose 0.5 gm/ Sodium Chloride 50 ml @ 16.667 mls/ hr DAILY@1800 IV 04/29/24 18:00 Laboratory Results Laboratory Tests 04/26/24 03:46 04/27/24 07:01 Urinalysis Test 04/16/24 03:30 Urine Color Light-yellow (Yellow) Urine Clarity Clear (Clear) Urine pH 8.5 (5.0-9.0) Urine Specific [place] 1.012 (1.001-1.035) Urine Protein 3+ (Negative) H Urine Ketones Negative (Negative) Urine Blood Negative /uL (Negative) Urine Nitrite Negative (Negative) Urine Bilirubin Negative (Negative) Urine Urobilinogen Normal mg/dL (Negative) Urine Leukocyte Esterase Trace /uL (Negative) Urine RBC 2 /hpf (0 - 3) Urine Microscopic WBC 10 /HPF (0-3) H Urine Squamous Epithelial Cells Few /hpf (<5) Urine Bacteria None seen /hpf (None Seen) Urine Glucose 2+ mg/dL (Normal) H Microbiology Microbiology Date/Time Source Procedure Growth Status 04/19/24 21:32 Nose MRSA Screen - Final Complete 04/19/24 19:31 Blood Blood Culture - Final NO GROWTH AFTER 5 DAYS OF INCUBATION. Complete Assessment/Plan Assessment/Plan Intractable lower back pain Hyperkalemia End-stage renal disease on hemodialysis Generalized weakness Possible underlying pneumonia Chronic anemia of chronic kidney disease Chest pain most likely noncardiac Coronary artery disease status post PTCA x6 on aspirin and Plavix Acute on chronic heart failure with reduced ejection fraction last ejection fraction 35% Obesity Tobacco use Type 2 diabetes Dyslipidemia Hypertension Plan Get a CT scan of the lumbar spine to rule out abscess since the patient says he was diagnosed with an abscess lately and was given oral Cipro from [facility] [place] Hemodialysis to be done today Nephrology consult Cardiology consult Pain management with morphine and [place] as needed Physical therapy evaluation Full code Discussed with the the patient and with his over the phone Advance directives discussed for 20 minutes 04/18/2024: Lumbar spine L4-L5 diskitis with anterior prevertebral abscess Degenerative disc disease of the lumbar spine End-stage renal disease Hyperkalemia Plan: Start broad-spectrum antibiotics with meropenem and vancomycin Infectious Disease consultation Spinal surgery consultation Hemodialysis per nephrology Repeat the labs Monitor the patient closely 04/19/2024: Continue IV antibiotics ID consult Spinal surgery recommended conservative treatment with IV antibiotics If the patient will need only IV vancomycin then he can get it at the dialysis Treatment plan discussed with the patient and his over the phone He is complaining of more pain in his back and not relieved by the current regimen and therefore we will increase morphine to 4 mg IV every 4 hours p.r.n. and increase the [place] to 2 tablets q.6 hours p.r.n. The rest of the management will depend on the hospital course Hemodialysis per nephrology 04/20/2024: Continue IV antibiotics with Rocephin and vancomycin Discussed with ID and Nephrology, since the patient can not have a PICC line, we will do a tunneled central line by IR Patient can then be discharged home on IV vancomycin with dialysis and IV Rocephin daily by home health Continue pain management The rest of the management will depend on the hospital course 04/21/2024: Continue IV antibiotics Tunneled central line to be done on Tuesday Lower the dose of morphine to minimize the side effects [place] as needed Discharge planning once the central line is done and IV antibiotics are ordered Neutropenia: Place on neutropenic precautions Hyperkalemia: Dialysis per Nephrology 04/22/2024: Continue the current regimen of IV antibiotics Waiting for the central line to be done Discharge planning was central line is done Hemodialysis per nephrology 04/23/24: Order home health for IV antibiotics: Vanco with HD + Rocephin 2 gm q 12 h x 6 weeks Tunnelled central line pending Pain control Continue physical therapy HD per nephrology 04/24/2024: Confusion, delirium: The patient has a sitter at the bedside, discontinue morphine and [place], give Dilaudid low dose instead Back pain: Dilaudid for pain control, Flexeril p.r.n. Continue IV antibiotics Tunneled central line is done for IV antibiotics at home IV antibiotics ordered for home with home health however the patient is confused now, we will have to wait until he is alert and oriented 4 discharged Hemodialysis per Nephrology 04/25/2024: Delirium: Possible complex seizures History of pseudoseizures Back pain due to spinal abscess Spinal abscess and diskitis on IV antibiotics End-stage renal disease hemodialysis today Neurology consult regarding altered level of conscious Monitor closely 04/26/2024: EEG today MRI and CT scan of the brain was negative Neurology consult Hemodialysis as scheduled The patient's insurance does not cover home IV antibiotics and therefore he will have to have the antibiotics with dialysis, we will discuss with our infectious disease specialist to see what you regimen he would need at home 04/27/24: Discussed care plan with Dr. Herrmann: Hemodialysis cannot provide Cefepime, they can only do Vancomycin with HD Discussed with Dr. Cronin, he advises to send the patient on IV Vanco w HD plus PO Levaquin The patient is getting better mentally Keep in hospital until Tuesday He is very weak, still confused, not able to ambulate DC home next week once he is ambulatory Continue physical therapy 04/28/24 Doing well and will plan to DC on Tuesday Plan discussed with: Patient Date of Service: Apr 28, 2024 Billing Provider: CHIDI MARSH MD Common Visit Codes: [id number] INP/OBS CARE(HIGH) CHIDI MARSH MD Apr 28, 2024 18:17
[2024-04-28] MEDS: cefTAZidime 1 GM in SODIUM CHL 0.9% 50 ML IV ONE (18:39)
[2024-04-29] VITALS (9 sets, daily range): BP systolic 106–166; BP diastolic 49–80; PULSE 78–82; RESP 17–18; TEMP 97.4–98.3; O2SAT 95–98
[2024-04-29 07:33] LABS: Anion Gap 11 (5-15); Carbon Dioxide 29 mmol/L (20-31); Potassium 4.4 mmol/L (3.5-5.1)
[2024-04-29 07:39] LABS: BUN/Creatinine Ratio 4.5 (10.0-20.0)
[2024-04-29 07:56] LABS: Blood Urea Nitrogen 38 mg/dL (9-23); Chloride 94 mmol/L (98-107); Glucose 155 mg/dL (74-106); Sodium 134 mmol/L (136-145)
--- NOTE | 2024-04-29 11:29 | DVHPN2 ---
Progress Note - Dictate Date Seen: Apr 29, 2024 Has the PT tested + for MRSA If YES, has PT been informed?: No Medical Necessity Reason Pt with a Central, PICC or Fol: No Subjective No acute issues overnight. sitter at bedside Less confused vital signs Vital Sign Date Time Temp Pulse Resp B/P (MAP) Pulse Ox O2 Delivery O2 Flow Rate FiO2 04/29/24 10:04 159/62 04/29/24 10:03 79 04/29/24 10:02 97 Room Air 0.0 04/29/24 10:02 21 04/29/24 09:00 97.7 17 97.7 Total Intake and Output 04/28/24 04/28/24 04/29/24 15:00 23:00 07:00 Intake Total 50 ml 1320 ml 670 ml Output Total 450 ml Balance 50 ml 1320 ml 220 ml medications Current Medications Medications Dose Ordered Sig/Gerard Route Start Time Stop Time Status Last Admin Dose Admin Aspirin 81 mg DAILY PO 04/17/24 10:00 04/29/24 10:03 81 MG Clopidogrel Bisulfate 75 mg DAILY PO 04/17/24 10:00 04/29/24 10:04 75 MG Furosemide 40 mg DAILY IV 04/17/24 10:00 04/29/24 10:03 40 MG Hydralazine HCl 10 mg Q6HP PRN IV 04/16/24 14:00 04/24/24 18:24 10 MG Carvedilol 12.5 mg Q12HR PO 04/16/24 22:00 04/29/24 10:03 12.5 MG Amlodipine Besylate 5 mg DAILY PO 04/17/24 10:00 04/29/24 10:04 5 MG Atorvastatin Calcium 20 mg HS PO 04/16/24 22:00 04/28/24 22:05 20 MG Albuterol 2.5 mg Q4HPRN PRN NEB 04/16/24 14:00 Cancel Ipratropium [place] 0.5 mg Q4HPRN PRN NEB 04/16/24 14:00 Cancel Diagnostic Test (Pha) 1 strip ACHS 04/16/24 17:00 04/29/24 06:49 1 STRIP Insulin Human Regular ACHS SC 04/16/24 17:00 04/29/24 06:50 2 UNITS Dextrose 50 ml UD PRN IV 04/16/24 14:00 Sodium Chloride 10 ml Q8HR IV 04/16/24 14:00 04/29/24 06:49 10 ML Ondansetron HCl 4 mg Q4HP PRN IV 04/16/24 14:00 04/28/24 22:27 4 MG Docusate Sodium 100 mg BIDPRN PRN PO 04/16/24 14:00 04/19/24 16:16 100 MG Acetaminophen 650 mg Q6HP PRN PO 04/16/24 14:00 Sevelamer HCl 800 mg TIDWM PO 04/16/24 18:00 04/29/24 08:15 800 MG Multivit/Ca Carb/ B Cmplx/FA/Prenat 1 tab DAILY PO 04/17/24 10:00 04/29/24 10:03 1 TAB Nitroglycerin 0.4 mg Q5MINP PRN SL 04/16/24 16:30 Meropenem 50 ml @ 17 mls/hr HS IV 04/18/24 22:00 Cancel Daptomycin / Sodium Chloride 50 ml @ 100 mls/hr TUTHSA IV 04/19/24 21:00 UNV Vancomycin HCl 0 ml @ 0 mls/hr UD IV 04/18/24 21:30 Cancel Diazepam 5 mg DAILY PRN PO 04/21/24 16:30 04/25/24 16:52 5 MG Gabapentin 100 mg TID PO 04/21/24 22:00 04/29/24 06:47 100 MG Cyclobenzaprine HCl 10 mg Q8HPRN PRN PO 04/24/24 10:30 04/24/24 13:05 10 MG Hydromorphone HCl 0.25 mg Q4HPRN PRN IV 04/24/24 11:15 04/28/24 15:29 0.25 MG Lorazepam 1 mg ONCE PRN IV 04/25/24 22:45 Haloperidol Lactate 2.5 mg Q8HP PRN IM 04/25/24 22:45 Daptomycin 500 mg/ Sodium Chloride 50 ml @ 100 mls/hr NONDIALYSIS IV 04/26/24 13:00 Cancel Vancomycin HCl 0 ml @ 0 mls/hr UD IV 04/26/24 12:00 Levofloxacin 250 mg DAILY PO 04/27/24 10:00 Cancel Ceftazidime/ Dextrose 0.5 gm/ Sodium Chloride 50 ml @ 16.667 mls/ hr DAILY@1800 IV 04/29/24 18:00 objective HEENT: No evidence of JVD, no oral ulcers. Pulmonary: Lungs are clear on auscultation bilaterally Cardiovascular S1-S2, no S3 or S4 Abdomen: Bowel sounds positive, soft no rebound tenderness Skin: No rash Neurological: No deficits laboratory and microbiology Laboratory Tests 04/29/24 06:45 04/27/24 07:01 04/26/24 03:46 Test 04/29/24 06:45 Range/Units Serum Glucose 155 H 74-106 mg/dL Problem List 1. End-stage renal disease on hemodialysis 2. Chest pain 3. Pneumonia 4. Hypertension 5. L4-L5 spondylodiscitis and anterior prevertebral abscess 6. Anemia 7. CHF 8. Diabetes type 2 9. Intractable back pain 10. CAD status post multiple stentings 11.ALOC, improving Assessment/Plan Hemodialysis on MWF schedule Patient to receive vancomycin 1 gm and ceftazidime 1 gm q HD x6 weeks for spinal abscess at [facility] Did inform about the plan Dietary Evaluation Review Comments: CCHO-60 low fat low cholesterol renal Standard diet Expected Outcomes/Goals: gradual wt loss Plan discussed with: Other NETTIE LIVINGSTON MD Apr 29, 2024 11:29
--- NOTE | 2024-04-29 14:41 | DVHPN2 ---
Subjective in bed resting Changes from previous H/P or p: No Changes Eyes: No Pain, No Vision change, No Conjunctivae inflammation, No Eyelid inflammation, No Other, No Redness ENT: No Ear pain, No Ear discharge, No Nose pain, No Nose discharge, No Nose congestion, No Mouth pain, No Mouth swelling, No Throat pain, No Throat swelling, No Other Cardiovascular: No Chest Pain, No Palpitations, No Orthopnea, No Paroxysmal Noc. Dyspnea, No Edema, No Lt Headedness, No Other Respiratory: No Cough, No Dry, No Shortness of breath, No SOB with excertion, No Wheezing, No Hemoptysis, No Pleuritic Pain, No Sputum, No Other Gastrointestinal: No Nausea, No Vomiting, No Abdominal Pain, No Diarrhea, No Constipation, No Melena, No Hematochezia, No Other Genitourinary: No Dysuria, No Frequency, No Incontinence, No Hematuria, No Retention, No Other Musculoskeletal: other (Bilateral leg weakness); No neck pain, No shoulder pain, No arm pain, No back pain, No hand pain; leg pain; No foot pain Skin: No Rash, No Lesions, No Jaundice, No Bruising, No Other Objective Vitals Vital Signs Date Time Temp Pulse Resp B/P (MAP) Pulse Ox O2 Delivery O2 Flow Rate FiO2 04/29/24 11:03 85 112/52 04/29/24 10:02 97 Room Air 0.0 04/29/24 10:02 21 04/29/24 09:00 97.7 17 97.7 Intake/Output Intake and Output 04/29/24 07:00 Intake Total 2040 ml Output Total 450 ml Balance 1590 ml Intake Oral 1990 ml IV Total 50 ml Output Urine Total 450 ml General Appearance: Alert, Oriented X3, Cooperative Lungs: Clear to auscultation, Normal air movement Cardiovascular: Regular rate, Normal S1 Abdomen: Normal bowel sounds, Soft Extremities: No edema Medications Current Medications Medications Dose Ordered Sig/Gerard Route Start Time Stop Time Status Last Admin Dose Admin Aspirin 81 mg DAILY PO 04/17/24 10:00 04/29/24 10:03 81 MG Clopidogrel Bisulfate 75 mg DAILY PO 04/17/24 10:00 04/29/24 10:04 75 MG Furosemide 40 mg DAILY IV 04/17/24 10:00 04/29/24 10:03 40 MG Hydralazine HCl 10 mg Q6HP PRN IV 04/16/24 14:00 04/24/24 18:24 10 MG Carvedilol 12.5 mg Q12HR PO 04/16/24 22:00 04/29/24 10:03 12.5 MG Amlodipine Besylate 5 mg DAILY PO 04/17/24 10:00 04/29/24 10:04 5 MG Atorvastatin Calcium 20 mg HS PO 04/16/24 22:00 04/28/24 22:05 20 MG Albuterol 2.5 mg Q4HPRN PRN NEB 04/16/24 14:00 Cancel Ipratropium [place] 0.5 mg Q4HPRN PRN NEB 04/16/24 14:00 Cancel Diagnostic Test (Pha) 1 strip ACHS 04/16/24 17:00 04/29/24 11:32 1 STRIP Insulin Human Regular ACHS SC 04/16/24 17:00 04/29/24 11:32 2 UNITS Dextrose 50 ml UD PRN IV 04/16/24 14:00 Sodium Chloride 10 ml Q8HR IV 04/16/24 14:00 04/29/24 06:49 10 ML Ondansetron HCl 4 mg Q4HP PRN IV 04/16/24 14:00 04/28/24 22:27 4 MG Docusate Sodium 100 mg BIDPRN PRN PO 04/16/24 14:00 04/19/24 16:16 100 MG Acetaminophen 650 mg Q6HP PRN PO 04/16/24 14:00 Sevelamer HCl 800 mg TIDWM PO 04/16/24 18:00 04/29/24 11:29 800 MG Multivit/Ca Carb/ B Cmplx/FA/Prenat 1 tab DAILY PO 04/17/24 10:00 04/29/24 10:03 1 TAB Nitroglycerin 0.4 mg Q5MINP PRN SL 04/16/24 16:30 Meropenem 50 ml @ 17 mls/hr HS IV 04/18/24 22:00 Cancel Daptomycin / Sodium Chloride 50 ml @ 100 mls/hr TUTHSA IV 04/19/24 21:00 UNV Vancomycin HCl 0 ml @ 0 mls/hr UD IV 04/18/24 21:30 Cancel Diazepam 5 mg DAILY PRN PO 04/21/24 16:30 04/25/24 16:52 5 MG Gabapentin 100 mg TID PO 04/21/24 22:00 04/29/24 06:47 100 MG Cyclobenzaprine HCl 10 mg Q8HPRN PRN PO 04/24/24 10:30 04/24/24 13:05 10 MG Hydromorphone HCl 0.25 mg Q4HPRN PRN IV 04/24/24 11:15 04/28/24 15:29 0.25 MG Lorazepam 1 mg ONCE PRN IV 04/25/24 22:45 Haloperidol Lactate 2.5 mg Q8HP PRN IM 04/25/24 22:45 Daptomycin 500 mg/ Sodium Chloride 50 ml @ 100 mls/hr NONDIALYSIS IV 04/26/24 13:00 Cancel Vancomycin HCl 0 ml @ 0 mls/hr UD IV 04/26/24 12:00 Levofloxacin 250 mg DAILY PO 04/27/24 10:00 Cancel Ceftazidime/ Dextrose 0.5 gm/ Sodium Chloride 50 ml @ 16.667 mls/ hr DAILY@1800 IV 04/29/24 18:00 Laboratory Results Laboratory Tests 04/26/24 03:46 04/27/24 07:01 04/29/24 06:45 Chemistry Test 04/29/24 06:45 Calcium Level 10.0 mg/dL (8.7-10.4) Urinalysis Test 04/16/24 03:30 Urine Color Light-yellow (Yellow) Urine Clarity Clear (Clear) Urine pH 8.5 (5.0-9.0) Urine Specific [place] 1.012 (1.001-1.035) Urine Protein 3+ (Negative) H Urine Ketones Negative (Negative) Urine Blood Negative /uL (Negative) Urine Nitrite Negative (Negative) Urine Bilirubin Negative (Negative) Urine Urobilinogen Normal mg/dL (Negative) Urine Leukocyte Esterase Trace /uL (Negative) Urine RBC 2 /hpf (0 - 3) Urine Microscopic WBC 10 /HPF (0-3) H Urine Squamous Epithelial Cells Few /hpf (<5) Urine Bacteria None seen /hpf (None Seen) Urine Glucose 2+ mg/dL (Normal) H Microbiology Microbiology Date/Time Source Procedure Growth Status 04/19/24 21:32 Nose MRSA Screen - Final Complete 04/19/24 19:31 Blood Blood Culture - Final NO GROWTH AFTER 5 DAYS OF INCUBATION. Complete Assessment/Plan Assessment/Plan Intractable lower back pain Hyperkalemia End-stage renal disease on hemodialysis Generalized weakness Possible underlying pneumonia Chronic anemia of chronic kidney disease Chest pain most likely noncardiac Coronary artery disease status post PTCA x6 on aspirin and Plavix Acute on chronic heart failure with reduced ejection fraction last ejection fraction 35% Obesity Tobacco use Type 2 diabetes Dyslipidemia Hypertension Plan Get a CT scan of the lumbar spine to rule out abscess since the patient says he was diagnosed with an abscess lately and was given oral Cipro from [facility] Hemodialysis to be done today Nephrology consult Cardiology consult Pain management with morphine and [place] as needed Physical therapy evaluation Full code Discussed with the the patient and with his over the phone Advance directives discussed for 20 minutes 04/18/2024: Lumbar spine L4-L5 diskitis with anterior prevertebral abscess Degenerative disc disease of the lumbar spine End-stage renal disease Hyperkalemia Plan: Start broad-spectrum antibiotics with meropenem and vancomycin Infectious Disease consultation Spinal surgery consultation Hemodialysis per nephrology Repeat the labs Monitor the patient closely 04/19/2024: Continue IV antibiotics ID consult Spinal surgery recommended conservative treatment with IV antibiotics If the patient will need only IV vancomycin then he can get it at the dialysis Treatment plan discussed with the patient and his over the phone He is complaining of more pain in his back and not relieved by the current regimen and therefore we will increase morphine to 4 mg IV every 4 hours p.r.n. and increase the [place] to 2 tablets q.6 hours p.r.n. The rest of the management will depend on the hospital course Hemodialysis per nephrology 04/20/2024: Continue IV antibiotics with Rocephin and vancomycin Discussed with ID and Nephrology, since the patient can not have a PICC line, we will do a tunneled central line by IR Patient can then be discharged home on IV vancomycin with dialysis and IV Rocephin daily by home health Continue pain management The rest of the management will depend on the hospital course 04/21/2024: Continue IV antibiotics Tunneled central line to be done on Tuesday Lower the dose of morphine to minimize the side effects [place] as needed Discharge planning once the central line is done and IV antibiotics are ordered Neutropenia: Place on neutropenic precautions Hyperkalemia: Dialysis per Nephrology 04/22/2024: Continue the current regimen of IV antibiotics Waiting for the central line to be done Discharge planning was central line is done Hemodialysis per nephrology 04/23/24: Order home health for IV antibiotics: Vanco with HD + Rocephin 2 gm q 12 h x 6 weeks Tunnelled central line pending Pain control Continue physical therapy HD per nephrology 04/24/2024: Confusion, delirium: The patient has a sitter at the bedside, discontinue morphine and [place], give Dilaudid low dose instead Back pain: Dilaudid for pain control, Flexeril p.r.n. Continue IV antibiotics Tunneled central line is done for IV antibiotics at home IV antibiotics ordered for home with home health however the patient is confused now, we will have to wait until he is alert and oriented 4 discharged Hemodialysis per Nephrology 04/25/2024: Delirium: Possible complex seizures History of pseudoseizures Back pain due to spinal abscess Spinal abscess and diskitis on IV antibiotics End-stage renal disease hemodialysis today Neurology consult regarding altered level of conscious Monitor closely 04/26/2024: EEG today MRI and CT scan of the brain was negative Neurology consult Hemodialysis as scheduled The patient's insurance does not cover home IV antibiotics and therefore he will have to have the antibiotics with dialysis, we will discuss with our infectious disease specialist to see what you regimen he would need at home 04/27/24: Discussed care plan with Dr. Herrmann: Hemodialysis cannot provide Cefepime, they can only do Vancomycin with HD Discussed with Dr. Cornin, he advises to send the patient on IV Vanco w HD plus PO Levaquin The patient is getting better mentally Keep in hospital until Tuesday He is very weak, still confused, not able to ambulate DC home next week once he is ambulatory Continue physical therapy 04/28/24 Doing well and will plan to DC on Saturday 04/29/ DC tomorrow Plan discussed with: Patient Date of Service: Apr 29, 2024 Billing Provider: CHIDI MARSH MD Common Visit Codes: [id number] INP/OBS CARE(HIGH) CHIDI MARSH MD Apr 29, 2024 14:41
[2024-04-29] MEDS: cefTAZidime 0.5 GM in SODIUM CHL 0.9% 50 ML IV SCH (17:22)
--- NOTE | 2024-04-29 20:35 | DVHPN2 ---
Consult Progress Note Date Seen: Apr 29, 2024 Subjective Patient reports: Other (confusion continues to improve , doesnt have any back spinal tenderness ) Objective vital signs Vital Sign Date Time Temp Pulse Resp B/P (MAP) Pulse Ox O2 Delivery O2 Flow Rate FiO2 04/29/24 17:57 179/83 04/29/24 16:39 97.4 78 18 98 97.4 04/29/24 10:02 Room Air 0.0 04/29/24 10:02 21 Total Intake and Output 04/28/24 04/28/24 04/29/24 15:00 23:00 07:00 Intake Total 50 ml 1320 ml 670 ml Output Total 450 ml Balance 50 ml 1320 ml 220 ml medications Current Medications Medications Dose Ordered Sig/Gerard Route Start Time Stop Time Status Last Admin Dose Admin Aspirin 81 mg DAILY PO 04/17/24 10:00 04/29/24 10:03 81 MG Clopidogrel Bisulfate 75 mg DAILY PO 04/17/24 10:00 04/29/24 10:04 75 MG Furosemide 40 mg DAILY IV 04/17/24 10:00 04/29/24 10:03 40 MG Hydralazine HCl 10 mg Q6HP PRN IV 04/16/24 14:00 04/29/24 17:57 10 MG Carvedilol 12.5 mg Q12HR PO 04/16/24 22:00 04/29/24 10:03 12.5 MG Amlodipine Besylate 5 mg DAILY PO 04/17/24 10:00 04/29/24 10:04 5 MG Atorvastatin Calcium 20 mg HS PO 04/16/24 22:00 04/28/24 22:05 20 MG Albuterol 2.5 mg Q4HPRN PRN NEB 04/16/24 14:00 Cancel Ipratropium [place] 0.5 mg Q4HPRN PRN NEB 04/16/24 14:00 Cancel Diagnostic Test (Pha) 1 strip ACHS 04/16/24 17:00 04/29/24 17:00 1 STRIP Insulin Human Regular ACHS SC 04/16/24 17:00 04/29/24 17:29 2 UNITS Dextrose 50 ml UD PRN IV 04/16/24 14:00 Sodium Chloride 10 ml Q8HR IV 04/16/24 14:00 04/29/24 14:47 10 ML Ondansetron HCl 4 mg Q4HP PRN IV 04/16/24 14:00 04/28/24 22:27 4 MG Docusate Sodium 100 mg BIDPRN PRN PO 04/16/24 14:00 04/19/24 16:16 100 MG Acetaminophen 650 mg Q6HP PRN PO 04/16/24 14:00 Sevelamer HCl 800 mg TIDWM PO 04/16/24 18:00 04/29/24 17:21 800 MG Multivit/Ca Carb/ B Cmplx/FA/Prenat 1 tab DAILY PO 04/17/24 10:00 04/29/24 10:03 1 TAB Nitroglycerin 0.4 mg Q5MINP PRN SL 04/16/24 16:30 Meropenem 50 ml @ 17 mls/hr HS IV 04/18/24 22:00 Cancel Daptomycin / Sodium Chloride 50 ml @ 100 mls/hr TUTHSA IV 04/19/24 21:00 UNV Vancomycin HCl 0 ml @ 0 mls/hr UD IV 04/18/24 21:30 Cancel Diazepam 5 mg DAILY PRN PO 04/21/24 16:30 04/29/24 19:54 5 MG Gabapentin 100 mg TID PO 04/21/24 22:00 04/29/24 19:54 100 MG Cyclobenzaprine HCl 10 mg Q8HPRN PRN PO 04/24/24 10:30 04/24/24 13:05 10 MG Hydromorphone HCl 0.25 mg Q4HPRN PRN IV 04/24/24 11:15 04/28/24 15:29 0.25 MG Lorazepam 1 mg ONCE PRN IV 04/25/24 22:45 Haloperidol Lactate 2.5 mg Q8HP PRN IM 04/25/24 22:45 Daptomycin 500 mg/ Sodium Chloride 50 ml @ 100 mls/hr NONDIALYSIS IV 04/26/24 13:00 Cancel Vancomycin HCl 0 ml @ 0 mls/hr UD IV 04/26/24 12:00 Levofloxacin 250 mg DAILY PO 04/27/24 10:00 Cancel Ceftazidime/ Dextrose 0.5 gm/ Sodium Chloride 50 ml @ 16.667 mls/ hr DAILY@1800 IV 04/29/24 18:00 04/29/24 17:22 16.667 MLS/HR Physical Exam: General: NAD Neck: Supple. No masses. HEENT: PERRL. Normal lids and conjunctiva. Moist mucous membranes. Oropharynx without lesions, exudates, or excessive erythema. Normal appearance of the external aspects of the nose and ears. Heart: Regular rhythm, normal rate. No murmur. No lower extremity edema. Lungs: Normal respiratory effort. Clear to auscultation bilaterally. No wheezes. No crackles. Abdomen: Soft. Non-tender. Non-distended. No masses or abdominal hernia. MSK: - Strength: 2/5 strength in bilateral lower extremities. - Sensation: Intact to soft touch in all four limbs. - Spinal tenderness noted in the lumbar region. - No digital cyanosis. Normal strength and tone in upper extremities. Skin: Warm and dry, no rashes. Neuro: Alert. No facial droop or slurred speech. Extraocular movements intact. Psych: Appropriate mood. Full affect. Oriented to person, place, time, and situation. laboratory and microbiology Laboratory Tests 04/29/24 06:45 04/27/24 07:01 04/26/24 03:46 Test 04/29/24 06:45 Range/Units Serum Glucose 155 H 74-106 mg/dL Problem List/Assessment/Plan Problems(with codes): (1) Chronic back pain (2) ESRD (end stage renal disease) (3) Shortness of breath (4) Pneumonia, unspecified organism (5) Acute on chronic systolic heart failure (6) End stage renal disease on dialysis (7) Acute chest pain (8) Inability to walk (9) Bilateral leg weakness Problem List/Assessment/Plan ID Problem List: - Prevertebral abscess - Lumbar osteomyelitis/discitis - Bilateral lower extremity weakness - ESRD on dialysis - Seizure disorder - Hypertension COPD - Uncontrolled diabetes mellitus - Coronary artery disease, status post CABG and PTCA - History of pneumonia - History of buttock abscess with MRSA and E. coli infections Assessment This is a 59-year-old male with a past medical history of end-stage renal disease on dialysis, seizure disorder, hypertension, COPD, uncontrolled diabetes mellitus, and coronary artery disease status post CABG and PTCA, who presents with acute chest pain, shortness of breath, bilateral leg pain, inability to walk, and leg weakness. His symptoms have been worsening over the last several months, with health declining since Shar, necessitating the use of a walker for assistance. He was recently seen at an outside facility two days ago for unclear reasons; prior to this, he had pneumonia. He reports no current shortness of breath, dizziness, chest pain, fevers, or chills. He endorses weight loss and ongoing back pain in the lumbar region. Physical examination is notable for 2/5 strength in the bilateral lower extremities with full sensation, and spinal tenderness in the lumbar region. Laboratory studies reveal WBC 4.7, hemoglobin 10.2, platelet count 238, BUN 39, creatinine 7.2, glucose 126, BNP 1793, troponin 3.19. Chest X-ray shows opacities/infiltrates in both lung bases greater on the left side, markedly improved compared to prior thoracic imaging. MRI of the lumbar spine demonstrates findings most compatible with osteomyelitis/discitis with anterior vertebral abscess. No epidural abscess identified. Grade 1 anterior listhesis of L5 on S1 due to bilateral L5 pars defects. Multilevel degenerative disc disease with posterior facet arthropathy with evidence of nerve impingement at L4-L5 and L5-S1 levels. 04/19: appears to be clinically asymptomatic with exception of lower extremity weakness 04/20: Patients Chest , abdomen and pelvis Ct showed reticular opacities in the peripheral aspects of the lungs , mild super imposed lung opacities vs viral pneumonia similar to finding on 02/17/24. readministration of osteomyelitis L4 L5 associated with abscess , a visualized upper gluteal region is unremarkable with no evidence of ulcer abscess or sacral coxial erosion , their is moderate fecal retention and mild rectal fecal impaction tte wo vegetations 04/21: whitecount has downtred to 1.7 unclear ideology patients heart failure diagnosis is new with calcification of aortic valve 16: patients heart failure diagnosis is new 2: Vancomycin trots have been supra therapeutic elevated creatine of 31.2 and dose has been adjusted 04/24: whitecount is 2.2 , having some leukopenia and BUN is 39 , primarily neutrophilic loss and an unclear etiology for patients delirium 04/25: neurology evaluated patient and suspects largely organic/metabolic delirium , continues to be leukopenia 04/26: patient cannot get home antibiotics 04/27: delirium appears resolved , dialysis center is unable to provide cefapime 04/29: responding to antibiotics Plan: - start ceftazodine for 6 weeks via dialysis - patient can get antibiotics via dialysis - leukopenia likely related to high vancomycin trots and patient has been difficult to dose in setting of renal failure - STOP cefapime - continue vancomycin for 6 weeks with dialysis - would exercise delirium precautions , avoiding lab sticks and waking at night , keeping patient near window open light during the day - would hold off on KAMI for now and can get the workup as outpatient to see if patient needs additional remedies for endocarditis - follow up with infectious disease in 4 weeks , patient may need a longer coarse of antibiotics and maybe oral treatment until epidural abscess is resolved on MRI - defer electromagnetic leg weakness and need for additional physical therapy and mobility issued to primary service - follow up with neurosurgery as an outpatient and advise patient should additional neurological deficits develop or fevers recur on antibiotics or bowel/urinary incontinents patient should come to the emergency room for further evaluation - Infectious Disease: - Initiate broad-spectrum antibiotics covering likely organisms, including MRSA and E. coli, pending culture results. vancomycin and ceftriaxone 2gq 12hrs. - Obtain blood cultures and inflammatory markers - Neurosurgery Consult: - Evaluate for possible surgical intervention for vertebral abscess and spinal instability.--> defer to dr hodge's who is recommending medical conservative management with IV abx. - Renal: - Continue hemodialysis as scheduled. - Monitor renal function and electrolytes closely. - Neurology: - Monitor for signs of neurological deterioration. - Endocrinology: - Optimize glycemic control for uncontrolled diabetes mellitus. - Pulmonary: - Monitor respiratory status given history of COPD and recent pneumonia. - Provide smoking cessation counseling. - Cardiology: - Monitor cardiac status given elevated BNP and troponin levels. - Consider further cardiac evaluation to rule out acute coronary syndrome. - Physical Therapy: - Assist with mobility and strengthening exercises as tolerated. - Nutrition: - Assess nutritional status; provide dietary support to address weight loss. Isolation Precautions: Standard Plan discussed with: Other Dietary Evaluation Review Comments: CCHO-60 low fat low cholesterol renal Standard diet Expected Outcomes/Goals: gradual wt loss ENDY CAMP MD Apr 29, 2024 20:35
[2024-04-30] VITALS (8 sets, daily range): BP systolic 115–164; BP diastolic 37–79; PULSE 79–98; RESP 16–20; TEMP 97.5–98.5; O2SAT 95–100
--- NOTE | 2024-04-30 12:02 | DVHPN2 ---
Subjective Better More alert Back to his normal mental status Changes from previous H/P or p: Changes Eyes: No Pain, No Vision change, No Conjunctivae inflammation, No Eyelid inflammation, No Other, No Redness ENT: No Ear pain, No Ear discharge, No Nose pain, No Nose discharge, No Nose congestion, No Mouth pain, No Mouth swelling, No Throat pain, No Throat swelling, No Other Cardiovascular: No Chest Pain, No Palpitations, No Orthopnea, No Paroxysmal Noc. Dyspnea, No Edema, No Lt Headedness, No Other Respiratory: No Cough, No Dry, No Shortness of breath, No SOB with excertion, No Wheezing, No Hemoptysis, No Pleuritic Pain, No Sputum, No Other Gastrointestinal: No Nausea, No Vomiting, No Abdominal Pain, No Diarrhea, No Constipation, No Melena, No Hematochezia, No Other Genitourinary: No Dysuria, No Frequency, No Incontinence, No Hematuria, No Retention, No Other Musculoskeletal: other (Bilateral leg weakness); No neck pain, No shoulder pain, No arm pain, No back pain, No hand pain; leg pain; No foot pain Skin: No Rash, No Lesions, No Jaundice, No Bruising, No Other Objective Vitals Vital Signs Date Time Temp Pulse Resp B/P (MAP) Pulse Ox O2 Delivery O2 Flow Rate FiO2 04/30/24 09:47 115/37 04/30/24 09:47 84 04/30/24 08:00 98.5 20 97 98.5 04/29/24 20:00 Room Air* 0 21 Intake/Output Intake and Output 04/30/24 07:00 Intake Total 600 ml Output Total 250 ml Balance 350 ml Intake Oral 550 ml IV Total 50 ml Output Urine Total 250 ml General Appearance: Alert, Oriented X3, Cooperative Lungs: Clear to auscultation, Normal air movement Cardiovascular: Regular rate, Normal S1 Abdomen: Normal bowel sounds, Soft Extremities: No edema Medications Current Medications Medications Dose Ordered Sig/Gerard Route Start Time Stop Time Status Last Admin Dose Admin Aspirin 81 mg DAILY PO 04/17/24 10:00 04/30/24 09:36 81 MG Clopidogrel Bisulfate 75 mg DAILY PO 04/17/24 10:00 04/30/24 09:35 75 MG Furosemide 40 mg DAILY IV 04/17/24 10:00 04/29/24 10:03 40 MG Hydralazine HCl 10 mg Q6HP PRN IV 04/16/24 14:00 04/29/24 17:57 10 MG Carvedilol 12.5 mg Q12HR PO 04/16/24 22:00 04/29/24 22:07 12.5 MG Amlodipine Besylate 5 mg DAILY PO 04/17/24 10:00 04/29/24 10:04 5 MG Atorvastatin Calcium 20 mg HS PO 04/16/24 22:00 04/29/24 22:08 20 MG Albuterol 2.5 mg Q4HPRN PRN NEB 04/16/24 14:00 Cancel Ipratropium [place] 0.5 mg Q4HPRN PRN NEB 04/16/24 14:00 Cancel Diagnostic Test (Pha) 1 strip ACHS 04/16/24 17:00 04/30/24 06:37 1 STRIP Insulin Human Regular ACHS SC 04/16/24 17:00 04/29/24 22:09 3 UNITS Dextrose 50 ml UD PRN IV 04/16/24 14:00 Sodium Chloride 10 ml Q8HR IV 04/16/24 14:00 04/30/24 06:35 10 ML Ondansetron HCl 4 mg Q4HP PRN IV 04/16/24 14:00 04/29/24 23:17 4 MG Docusate Sodium 100 mg BIDPRN PRN PO 04/16/24 14:00 04/19/24 16:16 100 MG Acetaminophen 650 mg Q6HP PRN PO 04/16/24 14:00 Sevelamer HCl 800 mg TIDWM PO 04/16/24 18:00 04/30/24 09:35 800 MG Multivit/Ca Carb/ B Cmplx/FA/Prenat 1 tab DAILY PO 04/17/24 10:00 04/30/24 09:41 1 TAB Nitroglycerin 0.4 mg Q5MINP PRN SL 04/16/24 16:30 Meropenem 50 ml @ 17 mls/hr HS IV 04/18/24 22:00 Cancel Daptomycin / Sodium Chloride 50 ml @ 100 mls/hr TUTHSA IV 04/19/24 21:00 UNV Vancomycin HCl 0 ml @ 0 mls/hr UD IV 04/18/24 21:30 Cancel Diazepam 5 mg DAILY PRN PO 04/21/24 16:30 04/29/24 19:54 5 MG Gabapentin 100 mg TID PO 04/21/24 22:00 04/30/24 06:35 100 MG Cyclobenzaprine HCl 10 mg Q8HPRN PRN PO 04/24/24 10:30 04/24/24 13:05 10 MG Hydromorphone HCl 0.25 mg Q4HPRN PRN IV 04/24/24 11:15 04/29/24 22:10 0.25 MG Lorazepam 1 mg ONCE PRN IV 04/25/24 22:45 Haloperidol Lactate 2.5 mg Q8HP PRN IM 04/25/24 22:45 Daptomycin 500 mg/ Sodium Chloride 50 ml @ 100 mls/hr NONDIALYSIS IV 04/26/24 13:00 Cancel Vancomycin HCl 0 ml @ 0 mls/hr UD IV 04/26/24 12:00 Levofloxacin 250 mg DAILY PO 04/27/24 10:00 Cancel Ceftazidime/ Dextrose 0.5 gm/ Sodium Chloride 50 ml @ 16.667 mls/ hr DAILY@1800 IV 04/29/24 18:00 04/29/24 17:22 16.667 MLS/HR Laboratory Results Laboratory Tests 04/26/24 03:46 04/27/24 07:01 04/29/24 06:45 Urinalysis Test 04/16/24 03:30 Urine Color Light-yellow (Yellow) Urine Clarity Clear (Clear) Urine pH 8.5 (5.0-9.0) Urine Specific [place] 1.012 (1.001-1.035) Urine Protein 3+ (Negative) H Urine Ketones Negative (Negative) Urine Blood Negative /uL (Negative) Urine Nitrite Negative (Negative) Urine Bilirubin Negative (Negative) Urine Urobilinogen Normal mg/dL (Negative) Urine Leukocyte Esterase Trace /uL (Negative) Urine RBC 2 /hpf (0 - 3) Urine Microscopic WBC 10 /HPF (0-3) H Urine Squamous Epithelial Cells Few /hpf (<5) Urine Bacteria None seen /hpf (None Seen) Urine Glucose 2+ mg/dL (Normal) H Microbiology Microbiology Date/Time Source Procedure Growth Status 04/19/24 21:32 Nose MRSA Screen - Final Complete 04/19/24 19:31 Blood Blood Culture - Final NO GROWTH AFTER 5 DAYS OF INCUBATION. Complete Assessment/Plan Assessment/Plan Intractable lower back pain Hyperkalemia End-stage renal disease on hemodialysis Generalized weakness Possible underlying pneumonia Chronic anemia of chronic kidney disease Chest pain most likely noncardiac Coronary artery disease status post PTCA x6 on aspirin and Plavix Acute on chronic heart failure with reduced ejection fraction last ejection fraction 35% Obesity Tobacco use Type 2 diabetes Dyslipidemia Hypertension Plan Get a CT scan of the lumbar spine to rule out abscess since the patient says he was diagnosed with an abscess lately and was given oral Cipro from [facility] Hemodialysis to be done today Nephrology consult Cardiology consult Pain management with morphine and Horatio as needed Physical therapy evaluation Full code Discussed with the the patient and with his over the phone Advance directives discussed for 20 minutes 04/18/2024: Lumbar spine L4-L5 diskitis with anterior prevertebral abscess Degenerative disc disease of the lumbar spine End-stage renal disease Hyperkalemia Plan: Start broad-spectrum antibiotics with meropenem and vancomycin Infectious Disease consultation Spinal surgery consultation Hemodialysis per nephrology Repeat the labs Monitor the patient closely 04/19/2024: Continue IV antibiotics ID consult Spinal surgery recommended conservative treatment with IV antibiotics If the patient will need only IV vancomycin then he can get it at the dialysis Treatment plan discussed with the patient and his over the phone He is complaining of more pain in his back and not relieved by the current regimen and therefore we will increase morphine to 4 mg IV every 4 hours p.r.n. and increase the Horatio to 2 tablets q.6 hours p.r.n. The rest of the management will depend on the hospital course Hemodialysis per nephrology 04/20/2024: Continue IV antibiotics with Rocephin and vancomycin Discussed with ID and Nephrology, since the patient can not have a PICC line, we will do a tunneled central line by IR Patient can then be discharged home on IV vancomycin with dialysis and IV Rocephin daily by home health Continue pain management The rest of the management will depend on the hospital course 04/21/2024: Continue IV antibiotics Tunneled central line to be done on Tuesday Lower the dose of morphine to minimize the side effects Horatio as needed Discharge planning once the central line is done and IV antibiotics are ordered Neutropenia: Place on neutropenic precautions Hyperkalemia: Dialysis per Nephrology 04/22/2024: Continue the current regimen of IV antibiotics Waiting for the central line to be done Discharge planning was central line is done Hemodialysis per nephrology 04/23/24: Order home health for IV antibiotics: Vanco with HD + Rocephin 2 gm q 12 h x 6 weeks Tunnelled central line pending Pain control Continue physical therapy HD per nephrology 04/24/2024: Confusion, delirium: The patient has a sitter at the bedside, discontinue morphine and Horatio, give Dilaudid low dose instead Back pain: Dilaudid for pain control, Flexeril p.r.n. Continue IV antibiotics Tunneled central line is done for IV antibiotics at home IV antibiotics ordered for home with home health however the patient is confused now, we will have to wait until he is alert and oriented 4 discharged Hemodialysis per Nephrology 04/25/2024: Delirium: Possible complex seizures History of pseudoseizures Back pain due to spinal abscess Spinal abscess and diskitis on IV antibiotics End-stage renal disease hemodialysis today Neurology consult regarding altered level of conscious Monitor closely 04/26/2024: EEG today MRI and CT scan of the brain was negative Neurology consult Hemodialysis as scheduled The patient's insurance does not cover home IV antibiotics and therefore he will have to have the antibiotics with dialysis, we will discuss with our infectious disease specialist to see what you regimen he would need at home 04/27/24: Discussed care plan with Dr. Herrmann: Hemodialysis cannot provide Cefepime, they can only do Vancomycin with HD Discussed with Dr. Cronin, he advises to send the patient on IV Vanco w HD plus PO Levaquin The patient is getting better mentally Keep in hospital until Tuesday He is very weak, still confused, not able to ambulate DC home next week once he is ambulatory Continue physical therapy 04/30/2024: Hemodialysis to be done either today or tomorrow Continue IV vancomycin and ceftazidime Continue physical therapy Discussed the case with both Dr. Cronin and Dr. Herrmann, the plan is to send the patient home on 6 weeks of IV antibiotics consisting of vancomycin and ceftazidime with hemodialysis For the time being the patient is very weak to ambulate independently and therefore continue physical therapy Discharge planning to go home with home health in 1-2 days Plan discussed with: Patient, Spouse Date of Service: Apr 30, 2024 Billing Provider: SADAF SANTANA MD Common Visit Codes: [id number] INP/OBS CARE(HIGH) SADAF SANTANA MD Apr 30, 2024 12:02
--- NOTE | 2024-04-30 16:52 | DVHPN2 ---
Progress Note - Dictate Date Seen: Apr 30, 2024 Has the PT tested + for MRSA If YES, has PT been informed?: No Medical Necessity Reason Pt with a Central, PICC or Fol: No Subjective No acute issues overnight. vital signs Vital Sign Date Time Temp Pulse Resp B/P (MAP) Pulse Ox O2 Delivery O2 Flow Rate FiO2 04/30/24 11:38 84 20 115/37 04/30/24 08:00 98.5 97 98.5 04/29/24 20:00 Room Air* 0 21 Total Intake and Output 04/29/24 04/29/24 04/30/24 15:00 23:00 07:00 Intake Total 600 ml 0 ml Output Total 250 ml Balance 350 ml 0 ml medications Current Medications Medications Dose Ordered Sig/Gerard Route Start Time Stop Time Status Last Admin Dose Admin Aspirin 81 mg DAILY PO 04/17/24 10:00 04/30/24 09:36 81 MG Clopidogrel Bisulfate 75 mg DAILY PO 04/17/24 10:00 04/30/24 09:35 75 MG Furosemide 40 mg DAILY IV 04/17/24 10:00 04/29/24 10:03 40 MG Hydralazine HCl 10 mg Q6HP PRN IV 04/16/24 14:00 04/29/24 17:57 10 MG Carvedilol 12.5 mg Q12HR PO 04/16/24 22:00 04/29/24 22:07 12.5 MG Amlodipine Besylate 5 mg DAILY PO 04/17/24 10:00 04/29/24 10:04 5 MG Atorvastatin Calcium 20 mg HS PO 04/16/24 22:00 04/29/24 22:08 20 MG Albuterol 2.5 mg Q4HPRN PRN NEB 04/16/24 14:00 Cancel Ipratropium [place] 0.5 mg Q4HPRN PRN NEB 04/16/24 14:00 Cancel Diagnostic Test (Pha) 1 strip ACHS 04/16/24 17:00 04/30/24 12:09 1 STRIP Insulin Human Regular ACHS SC 04/16/24 17:00 04/30/24 12:08 3 UNITS Dextrose 50 ml UD PRN IV 04/16/24 14:00 Sodium Chloride 10 ml Q8HR IV 04/16/24 14:00 04/30/24 13:47 10 ML Ondansetron HCl 4 mg Q4HP PRN IV 04/16/24 14:00 04/29/24 23:17 4 MG Docusate Sodium 100 mg BIDPRN PRN PO 04/16/24 14:00 04/19/24 16:16 100 MG Acetaminophen 650 mg Q6HP PRN PO 04/16/24 14:00 Sevelamer HCl 800 mg TIDWM PO 04/16/24 18:00 04/30/24 12:10 800 MG Multivit/Ca Carb/ B Cmplx/FA/Prenat 1 tab DAILY PO 04/17/24 10:00 04/30/24 09:41 1 TAB Nitroglycerin 0.4 mg Q5MINP PRN SL 04/16/24 16:30 Meropenem 50 ml @ 17 mls/hr HS IV 04/18/24 22:00 Cancel Daptomycin / Sodium Chloride 50 ml @ 100 mls/hr TUTHSA IV 04/19/24 21:00 UNV Vancomycin HCl 0 ml @ 0 mls/hr UD IV 04/18/24 21:30 Cancel Diazepam 5 mg DAILY PRN PO 04/21/24 16:30 04/30/24 11:37 5 MG Gabapentin 100 mg TID PO 04/21/24 22:00 04/30/24 16:17 100 MG Cyclobenzaprine HCl 10 mg Q8HPRN PRN PO 04/24/24 10:30 04/24/24 13:05 10 MG Hydromorphone HCl 0.25 mg Q4HPRN PRN IV 04/24/24 11:15 04/30/24 11:38 0.25 MG Lorazepam 1 mg ONCE PRN IV 04/25/24 22:45 Haloperidol Lactate 2.5 mg Q8HP PRN IM 04/25/24 22:45 Daptomycin 500 mg/ Sodium Chloride 50 ml @ 100 mls/hr NONDIALYSIS IV 04/26/24 13:00 Cancel Vancomycin HCl 0 ml @ 0 mls/hr UD IV 04/26/24 12:00 Levofloxacin 250 mg DAILY PO 04/27/24 10:00 Cancel Ceftazidime/ Dextrose 0.5 gm/ Sodium Chloride 50 ml @ 16.667 mls/ hr DAILY@1800 IV 04/29/24 18:00 04/29/24 17:22 16.667 MLS/HR objective HEENT: No evidence of JVD, no oral ulcers. Pulmonary: Lungs are clear on auscultation bilaterally Cardiovascular S1-S2, no S3 or S4 Abdomen: Bowel sounds positive, soft no rebound tenderness Skin: No rash Neurological: No deficits laboratory and microbiology Laboratory Tests 04/29/24 06:45 04/27/24 07:01 04/26/24 03:46 Test 04/29/24 06:45 Range/Units Serum Glucose 155 H 74-106 mg/dL Problem List 1. End-stage renal disease on hemodialysis 2. Chest pain 3. Pneumonia 4. Hypertension 5. L4-L5 spondylodiscitis and anterior prevertebral abscess 6. Anemia 7. CHF 8. Diabetes type 2 9. Intractable back pain 10. CAD status post multiple stentings 11.ALOC, improving Assessment/Plan Hemodialysis on MWF schedule Patient to receive vancomycin 1 gm and ceftazidime 1 gm q HD x6 weeks for spinal abscess at [facility] stable from renal standpoint Dietary Evaluation Review Comments: CCHO-60 low fat low cholesterol renal Standard diet Expected Outcomes/Goals: gradual wt loss Plan discussed with: Other NETTIE LIVINGSTON MD Apr 30, 2024 16:52
[2024-04-30] MEDS: EPOETIN ALFA-EPBX 4,000 UNIT/ML VIAL SC ONE (21:24)
--- NOTE | 2024-04-30 22:33 | DVHPN2 ---
Progress Note - Dictate Date Seen: Apr 30, 2024 Has the PT tested + for MRSA If YES, has PT been informed?: No Medical Necessity Reason Pt with a Central, PICC or Fol: No Subjective Mr. Mckee is a 59 years old gentleman with a history of hypertension, coronary artery disease, congestive heart failure, COPD, end-stage kidney failure on hemodialysis, he was brought to the [facility] on 04/15/2024 with a chief company of shortness of breath. I have seen and examined the patient, I have talked his nurse. He was doing fine, oriented x3, no new problems and sitter Blood culture, 04/19/2024: No growth Urinalysis, 04/16/2024: WBC: 10, urine leukocyte esterase: Trace WBC/HB/PLT/MCV, 04/21/2024: 1.7/9.7/175/91.6, 04/25/2024: 2.3/10.9/252/89.5 BUN/CR, 04/25/2024: 75/6.82 Liver function tests, 04/25/2024: Unremarkable Hepatitis panel, Vitamin B12, 04/25/2024: 163 Folic acid, 04/25/2024: 11.67 TSH, 04/25/2024: 3.04 EEG, 04/27/2024: Mildly abnormal CT head, 04/25/2024: No acute intracranial abnormality MRI head, 04/26/2024:No acute infarct, intracranial hemorrhage, mass effect, or hydrocephalus MRI lumbar spine, 04/18/2024: 1. Findings most compatible with L4-L5 spondylodiscitis an anterior prevertebral abscess. Recommend neurosurgical consultation. No epidural abscess identified in the unenhanced study. 2. Grade 1 anterolisthesis at L5-S1 due to bilateral L5 pars defects. 3. Multilevel degenerative disc disease and posterior facet arthropathy with evidence of nerve impingement at L4-L5 and L5-S1 levels vital signs Vital Sign Date Time Temp Pulse Resp B/P (MAP) Pulse Ox O2 Delivery O2 Flow Rate FiO2 04/30/24 21:34 87 164/70 04/30/24 21:00 98.1 19 100 98.1 04/30/24 10:00 Room Air* 0 21 Total Intake and Output 04/29/24 04/29/24 04/30/24 14:59 22:59 06:59 Intake Total 600 ml 0 ml Output Total 250 ml Balance 350 ml 0 ml medications Current Medications Medications Dose Ordered Sig/Gerard Route Start Time Stop Time Status Last Admin Dose Admin Aspirin 81 mg DAILY PO 04/17/24 10:00 04/30/24 09:36 81 MG Clopidogrel Bisulfate 75 mg DAILY PO 04/17/24 10:00 04/30/24 09:35 75 MG Furosemide 40 mg DAILY IV 04/17/24 10:00 04/29/24 10:03 40 MG Hydralazine HCl 10 mg Q6HP PRN IV 04/16/24 14:00 04/29/24 17:57 10 MG Carvedilol 12.5 mg Q12HR PO 04/16/24 22:00 04/30/24 21:34 12.5 MG Amlodipine Besylate 5 mg DAILY PO 04/17/24 10:00 04/29/24 10:04 5 MG Atorvastatin Calcium 20 mg HS PO 04/16/24 22:00 04/30/24 21:34 20 MG Albuterol 2.5 mg Q4HPRN PRN NEB 04/16/24 14:00 Cancel Ipratropium [place] 0.5 mg Q4HPRN PRN NEB 04/16/24 14:00 Cancel Diagnostic Test (Pha) 1 strip ACHS 04/16/24 17:00 04/30/24 21:35 1 STRIP Insulin Human Regular ACHS SC 04/16/24 17:00 04/30/24 21:35 2 UNITS Dextrose 50 ml UD PRN IV 04/16/24 14:00 Sodium Chloride 10 ml Q8HR IV 04/16/24 14:00 04/30/24 21:27 10 ML Ondansetron HCl 4 mg Q4HP PRN IV 04/16/24 14:00 04/29/24 23:17 4 MG Docusate Sodium 100 mg BIDPRN PRN PO 04/16/24 14:00 04/19/24 16:16 100 MG Acetaminophen 650 mg Q6HP PRN PO 04/16/24 14:00 Sevelamer HCl 800 mg TIDWM PO 04/16/24 18:00 04/30/24 18:23 800 MG Multivit/Ca Carb/ B Cmplx/FA/Prenat 1 tab DAILY PO 04/17/24 10:00 04/30/24 09:41 1 TAB Nitroglycerin 0.4 mg Q5MINP PRN SL 04/16/24 16:30 Meropenem 50 ml @ 17 mls/hr HS IV 04/18/24 22:00 Cancel Daptomycin / Sodium Chloride 50 ml @ 100 mls/hr TUTHSA IV 04/19/24 21:00 UNV Vancomycin HCl 0 ml @ 0 mls/hr UD IV 04/18/24 21:30 Cancel Diazepam 5 mg DAILY PRN PO 04/21/24 16:30 04/30/24 11:37 5 MG Gabapentin 100 mg TID PO 04/21/24 22:00 04/30/24 21:34 100 MG Cyclobenzaprine HCl 10 mg Q8HPRN PRN PO 04/24/24 10:30 04/24/24 13:05 10 MG Hydromorphone HCl 0.25 mg Q4HPRN PRN IV 04/24/24 11:15 04/30/24 18:38 0.25 MG Lorazepam 1 mg ONCE PRN IV 04/25/24 22:45 Haloperidol Lactate 2.5 mg Q8HP PRN IM 04/25/24 22:45 Daptomycin 500 mg/ Sodium Chloride 50 ml @ 100 mls/hr NONDIALYSIS IV 04/26/24 13:00 Cancel Vancomycin HCl 0 ml @ 0 mls/hr UD IV 04/26/24 12:00 Levofloxacin 250 mg DAILY PO 04/27/24 10:00 Cancel Ceftazidime/ Dextrose 0.5 gm/ Sodium Chloride 50 ml @ 16.667 mls/ hr DAILY@1800 IV 04/29/24 18:00 04/30/24 18:24 16.667 MLS/HR objective General: the patient is well developed and nourished. No acute distress. MUSCULOSKELETAL EXAM: No tenderness to palpation in the lumbar spine MENTAL STATUS: Awake , only oriented to himself SPEECH, LANGUAGE, HIGHER CORTICAL FUNCTION: no aphasia or dysathria. CRANIAL NERVES: Pupils are equal, round and reactive. EOMs full and conjugate. Facial sensation intact in all three divisions bilaterally. Mandibular strength intact. Facial muscles symmetrical and strength intact. SENSATION: Sensation to touch and pinprick is normal. MOTOR: Normal tone in the upper and lower extremity. Normal muscle bulk. No fasciculations. No abnormal movements or posturing. Muscle strength of the major groups in the extremities is 5/5. REFLEXES: Deep tendon reflexes are symmetrical. No pathological reflexes. CEREBELLAR/COORDINATION: Deferred GAIT/STATION: deferred laboratory and microbiology Laboratory Tests 04/29/24 06:45 04/27/24 07:01 04/26/24 03:46 Test 04/29/24 06:45 Range/Units Serum Glucose 155 H 74-106 mg/dL Problem List Reported nonepileptic seizure Metabolic encephalopathy, better Diskitis/anterior prevertebral abscess Urinary tract infection Leukopenia, improving Assessment/Plan Monitoring Supportive treatment Telemetry IV antibiotics Aspirin 81 mg daily Lipitor 20 mg daily Gabapentin 100 mg t.i.d. Haldol 2.5 mg intramuscular Q 8 hours p.r.n. for agitation More recommendation per clinical course This medical document was created using an electronic medical record system with [employer] dictation system. Although this document has been carefully reviewed, there may still be some phonetic and typographical errors. These areas are purely typographical due to imperfections of the software programs, and do not reflect any compromise in the patient's medical care Prognosis poor Dietary Evaluation Review Comments: CCHO-60 low fat low cholesterol renal Standard diet Expected Outcomes/Goals: gradual wt loss Plan discussed with: KISHA Caballero MD Apr 30, 2024 22:33
[2024-05-01] VITALS (9 sets, daily range): BP systolic 105–169; BP diastolic 62–74; PULSE 76–119; RESP 17–19; TEMP 97.4–98.3; O2SAT 96–100
[2024-05-01 07:03] LABS: Basophils # (auto) 0.1 10 ^3/uL (0-0.2); Basophils % (auto) 0.6 % (0.0-2.0); Eosinophils # (auto) 0.3 10 ^3/uL (0-0.8); Eosinophils % (auto) 2.9 % (0.0-7.0); Hematocrit 28.2 % (41.0-53.0); Hemoglobin 9.1 g/dL (13.5-17.5); Lymphocytes # (auto) 1.3 10 ^3/uL (0.4-5.4); Lymphocytes % (auto) 12.8 % (10.0-50.0); Mean Corpuscular Hemoglobin 29.2 pg (28.0-32.0); Mean Corpuscular Hgb Conc. 32.4 g/dL (32.0-36.0); Mean Corpuscular Volume 90.1 fL (80.0-100.0); Monocytes # (auto) 1.2 10 ^3/uL (0-1.3); Monocytes % (auto) 11.4 % (0.0-12.0); Neutrophils # (auto) 7.4 10 ^3/uL (1.6-8.6); Neutrophils % (auto) 72.3 % (37.0-80.0); Nucleated Red Blood Cells % 0.1 %; Platelet Count (auto) 224 10^3/uL (140-450); Red Blood Cells 3.12 10^6/uL (4.5-5.90); Red Cell Distribution Width 16.2 % (11.8-14.3); White Blood Cell 10.3 10^3/uL (4.4-10.8)
[2024-05-01] MEDS: LIDOCAINE 2%HCL (LOCAL ANESTH.) INJ 20ML MDV ONE (07:08)
[2024-05-01] MEDS: fentaNYL CITRATE 100 MCG/2 ML VL ONE (07:08)
[2024-05-01] MEDS: MIDAZOLAM HCL 2MG/2ML 2ml VIAL (1mg/ml) ONE (07:08)
[2024-05-01] MEDS: HEPARIN SODIUM (PORCINE) 5000 UNITS/ML 1ML VIAL ONE (07:08)
[2024-05-01] MEDS: SODIUM CHL 0.9% 1000 ML BAG XX ONE ×2 (07:09→07:10)
[2024-05-01] MEDS: HYDROmorphone HCL 2 MG/ML VL/or syr ONE (07:09)
[2024-05-01] MEDS: diphenhdrAMINE HCL 50 MG/1 ML VL ONE (07:09)
--- NOTE | 2024-05-01 12:10 | DVHPN2 ---
Subjective No new complaints Still complains of weakness in his working with physical therapy Changes from previous H/P or p: Changes Eyes: No Pain, No Vision change, No Conjunctivae inflammation, No Eyelid inflammation, No Other, No Redness ENT: No Ear pain, No Ear discharge, No Nose pain, No Nose discharge, No Nose congestion, No Mouth pain, No Mouth swelling, No Throat pain, No Throat swelling, No Other Cardiovascular: No Chest Pain, No Palpitations, No Orthopnea, No Paroxysmal Noc. Dyspnea, No Edema, No Lt Headedness, No Other Respiratory: No Cough, No Dry, No Shortness of breath, No SOB with excertion, No Wheezing, No Hemoptysis, No Pleuritic Pain, No Sputum, No Other Gastrointestinal: No Nausea, No Vomiting, No Abdominal Pain, No Diarrhea, No Constipation, No Melena, No Hematochezia, No Other Genitourinary: No Dysuria, No Frequency, No Incontinence, No Hematuria, No Retention, No Other Musculoskeletal: other (Bilateral leg weakness); No neck pain, No shoulder pain, No arm pain, No back pain, No hand pain; leg pain; No foot pain Skin: No Rash, No Lesions, No Jaundice, No Bruising, No Other Objective Vitals Vital Signs Date Time Temp Pulse Resp B/P (MAP) Pulse Ox O2 Delivery O2 Flow Rate FiO2 05/01/24 09:42 96 Room Air* 0 21 05/01/24 09:38 88 156/88 05/01/24 09:00 98.0 17 98.0 Intake/Output Intake and Output 05/01/24 07:00 Intake Total 588.3 ml Output Total 120 ml Balance 468.3 ml Intake Oral 580 ml IV Total 8.3 ml Output Urine Total 120 ml # Voids 2 # Bowel Movements 1 General Appearance: Alert, Oriented X3, Cooperative Lungs: Clear to auscultation, Normal air movement Cardiovascular: Regular rate, Normal S1 Abdomen: Normal bowel sounds, Soft Extremities: No edema Medications Current Medications Medications Dose Ordered Sig/Gerard Route Start Time Stop Time Status Last Admin Dose Admin Aspirin 81 mg DAILY PO 04/17/24 10:00 05/01/24 08:38 81 MG Clopidogrel Bisulfate 75 mg DAILY PO 04/17/24 10:00 05/01/24 08:38 75 MG Furosemide 40 mg DAILY IV 04/17/24 10:00 05/01/24 08:37 40 MG Hydralazine HCl 10 mg Q6HP PRN IV 04/16/24 14:00 04/29/24 17:57 10 MG Carvedilol 12.5 mg Q12HR PO 04/16/24 22:00 05/01/24 08:38 12.5 MG Amlodipine Besylate 5 mg DAILY PO 04/17/24 10:00 05/01/24 08:39 5 MG Atorvastatin Calcium 20 mg HS PO 04/16/24 22:00 04/30/24 21:34 20 MG Albuterol 2.5 mg Q4HPRN PRN NEB 04/16/24 14:00 Cancel Ipratropium [place] 0.5 mg Q4HPRN PRN NEB 04/16/24 14:00 Cancel Diagnostic Test (Pha) 1 strip ACHS 04/16/24 17:00 05/01/24 05:52 1 STRIP Insulin Human Regular ACHS SC 04/16/24 17:00 05/01/24 05:52 2 UNITS Dextrose 50 ml UD PRN IV 04/16/24 14:00 Sodium Chloride 10 ml Q8HR IV 04/16/24 14:00 05/01/24 05:52 10 ML Ondansetron HCl 4 mg Q4HP PRN IV 04/16/24 14:00 04/29/24 23:17 4 MG Docusate Sodium 100 mg BIDPRN PRN PO 04/16/24 14:00 04/19/24 16:16 100 MG Acetaminophen 650 mg Q6HP PRN PO 04/16/24 14:00 Sevelamer HCl 800 mg TIDWM PO 04/16/24 18:00 05/01/24 08:37 800 MG Multivit/Ca Carb/ B Cmplx/FA/Prenat 1 tab DAILY PO 04/17/24 10:00 05/01/24 08:37 1 TAB Nitroglycerin 0.4 mg Q5MINP PRN SL 04/16/24 16:30 Meropenem 50 ml @ 17 mls/hr HS IV 04/18/24 22:00 Cancel Daptomycin / Sodium Chloride 50 ml @ 100 mls/hr TUTHSA IV 04/19/24 21:00 UNV Vancomycin HCl 0 ml @ 0 mls/hr UD IV 04/18/24 21:30 Cancel Diazepam 5 mg DAILY PRN PO 04/21/24 16:30 04/30/24 11:37 5 MG Gabapentin 100 mg TID PO 04/21/24 22:00 05/01/24 05:45 100 MG Cyclobenzaprine HCl 10 mg Q8HPRN PRN PO 04/24/24 10:30 04/24/24 13:05 10 MG Hydromorphone HCl 0.25 mg Q4HPRN PRN IV 04/24/24 11:15 05/01/24 05:46 0.25 MG Lorazepam 1 mg ONCE PRN IV 04/25/24 22:45 Haloperidol Lactate 2.5 mg Q8HP PRN IM 04/25/24 22:45 Daptomycin 500 mg/ Sodium Chloride 50 ml @ 100 mls/hr NONDIALYSIS IV 04/26/24 13:00 Cancel Vancomycin HCl 0 ml @ 0 mls/hr UD IV 04/26/24 12:00 Levofloxacin 250 mg DAILY PO 04/27/24 10:00 Cancel Ceftazidime/ Dextrose 0.5 gm/ Sodium Chloride 50 ml @ 16.667 mls/ hr DAILY@1800 IV 04/29/24 18:00 04/30/24 18:24 16.667 MLS/HR Laboratory Results Laboratory Tests 04/29/24 06:45 05/01/24 05:11 Urinalysis Test 04/16/24 03:30 Urine Color Light-yellow (Yellow) Urine Clarity Clear (Clear) Urine pH 8.5 (5.0-9.0) Urine Specific [place] 1.012 (1.001-1.035) Urine Protein 3+ (Negative) H Urine Ketones Negative (Negative) Urine Blood Negative /uL (Negative) Urine Nitrite Negative (Negative) Urine Bilirubin Negative (Negative) Urine Urobilinogen Normal mg/dL (Negative) Urine Leukocyte Esterase Trace /uL (Negative) Urine RBC 2 /hpf (0 - 3) Urine Microscopic WBC 10 /HPF (0-3) H Urine Squamous Epithelial Cells Few /hpf (<5) Urine Bacteria None seen /hpf (None Seen) Urine Glucose 2+ mg/dL (Normal) H Microbiology Microbiology Date/Time Source Procedure Growth Status 04/19/24 21:32 Nose MRSA Screen - Final Complete 04/19/24 19:31 Blood Blood Culture - Final NO GROWTH AFTER 5 DAYS OF INCUBATION. Complete Assessment/Plan Assessment/Plan Intractable lower back pain Hyperkalemia End-stage renal disease on hemodialysis Generalized weakness Possible underlying pneumonia Chronic anemia of chronic kidney disease Chest pain most likely noncardiac Coronary artery disease status post PTCA x6 on aspirin and Plavix Acute on chronic heart failure with reduced ejection fraction last ejection fraction 35% Obesity Tobacco use Type 2 diabetes Dyslipidemia Hypertension Plan Get a CT scan of the lumbar spine to rule out abscess since the patient says he was diagnosed with an abscess lately and was given oral Cipro from [facility] Hemodialysis to be done today Nephrology consult Cardiology consult Pain management with morphine and [place] as needed Physical therapy evaluation Full code Discussed with the the patient and with his over the phone Advance directives discussed for 20 minutes 04/18/2024: Lumbar spine L4-L5 diskitis with anterior prevertebral abscess Degenerative disc disease of the lumbar spine End-stage renal disease Hyperkalemia Plan: Start broad-spectrum antibiotics with meropenem and vancomycin Infectious Disease consultation Spinal surgery consultation Hemodialysis per nephrology Repeat the labs Monitor the patient closely 04/19/2024: Continue IV antibiotics ID consult Spinal surgery recommended conservative treatment with IV antibiotics If the patient will need only IV vancomycin then he can get it at the dialysis Treatment plan discussed with the patient and his over the phone He is complaining of more pain in his back and not relieved by the current regimen and therefore we will increase morphine to 4 mg IV every 4 hours p.r.n. and increase the [place] to 2 tablets q.6 hours p.r.n. The rest of the management will depend on the hospital course Hemodialysis per nephrology 04/20/2024: Continue IV antibiotics with Rocephin and vancomycin Discussed with ID and Nephrology, since the patient can not have a PICC line, we will do a tunneled central line by IR Patient can then be discharged home on IV vancomycin with dialysis and IV Rocephin daily by home health Continue pain management The rest of the management will depend on the hospital course 04/21/2024: Continue IV antibiotics Tunneled central line to be done on Tuesday Lower the dose of morphine to minimize the side effects [place] as needed Discharge planning once the central line is done and IV antibiotics are ordered Neutropenia: Place on neutropenic precautions Hyperkalemia: Dialysis per Nephrology 04/22/2024: Continue the current regimen of IV antibiotics Waiting for the central line to be done Discharge planning was central line is done Hemodialysis per nephrology 04/23/24: Order home health for IV antibiotics: Vanco with HD + Rocephin 2 gm q 12 h x 6 weeks Tunnelled central line pending Pain control Continue physical therapy HD per nephrology 04/24/2024: Confusion, delirium: The patient has a sitter at the bedside, discontinue morphine and [place], give Dilaudid low dose instead Back pain: Dilaudid for pain control, Flexeril p.r.n. Continue IV antibiotics Tunneled central line is done for IV antibiotics at home IV antibiotics ordered for home with home health however the patient is confused now, we will have to wait until he is alert and oriented 4 discharged Hemodialysis per Nephrology 04/25/2024: Delirium: Possible complex seizures History of pseudoseizures Back pain due to spinal abscess Spinal abscess and diskitis on IV antibiotics End-stage renal disease hemodialysis today Neurology consult regarding altered level of conscious Monitor closely 04/26/2024: EEG today MRI and CT scan of the brain was negative Neurology consult Hemodialysis as scheduled The patient's insurance does not cover home IV antibiotics and therefore he will have to have the antibiotics with dialysis, we will discuss with our infectious disease specialist to see what you regimen he would need at home 04/27/24: Discussed care plan with Dr. Herrmann: Hemodialysis cannot provide Cefepime, they can only do Vancomycin with HD Discussed with Dr. Cronin, he advises to send the patient on IV Vanco w HD plus PO Levaquin The patient is getting better mentally Keep in hospital until Tuesday He is very weak, still confused, not able to ambulate DC home next week once he is ambulatory Continue physical therapy 04/30/2024: Hemodialysis to be done either today or tomorrow Continue IV vancomycin and ceftazidime Continue physical therapy Discussed the case with both Dr. Cronin and Dr. Herrmann, the plan is to send the patient home on 6 weeks of IV antibiotics consisting of vancomycin and ceftazidime with hemodialysis For the time being the patient is very weak to ambulate independently and therefore continue physical therapy Discharge planning to go home with home health in 1-2 days 05/01/2024: Order a wheelchair for home use Keep the patient here 1 more day on IV antibiotics Discharge planning for tomorrow to go home and start IV antibiotics with dialysis 1st treatment on May 03 Plan discussed with: Patient, Spouse Date of Service: May 01, 2024 Billing Provider: SADAF SANTANA MD Common Visit Codes: [id number] INP/OBS CARE(HIGH) SADAF SANTANA MD May 01, 2024 12:10
[2024-05-01] MEDS: VANCOMYCIN 1.25GM/250ML 250 ML IV ONE (17:40)
--- NOTE | 2024-05-01 21:35 | DVHPN2 ---
Consult Progress Note Date Seen: Apr 30, 2024 Subjective Patient reports: Other (working with pt , using wheel chair has weakned in legs , has a new dialysis cathater and tunnel line , mentation is back to baseline ) Objective vital signs Vital Sign Date Time Temp Pulse Resp B/P (MAP) Pulse Ox O2 Delivery O2 Flow Rate FiO2 05/01/24 21:00 97.5 87 18 121/62 (81) 100 97.5 05/01/24 20:00 Room Air* 0 21 Total Intake and Output 04/30/24 04/30/24 05/01/24 15:00 23:00 07:00 Intake Total 588.3 ml 0 ml Output Total 120 ml Balance 588.3 ml -120 ml medications Current Medications Medications Dose Ordered Sig/Gerard Route Start Time Stop Time Status Last Admin Dose Admin Aspirin 81 mg DAILY PO 04/17/24 10:00 05/01/24 08:38 81 MG Clopidogrel Bisulfate 75 mg DAILY PO 04/17/24 10:00 05/01/24 08:38 75 MG Furosemide 40 mg DAILY IV 04/17/24 10:00 05/01/24 08:37 40 MG Hydralazine HCl 10 mg Q6HP PRN IV 04/16/24 14:00 04/29/24 17:57 10 MG Carvedilol 12.5 mg Q12HR PO 04/16/24 22:00 05/01/24 08:38 12.5 MG Amlodipine Besylate 5 mg DAILY PO 04/17/24 10:00 05/01/24 08:39 5 MG Atorvastatin Calcium 20 mg HS PO 04/16/24 22:00 04/30/24 21:34 20 MG Albuterol 2.5 mg Q4HPRN PRN NEB 04/16/24 14:00 Cancel Ipratropium [place] 0.5 mg Q4HPRN PRN NEB 04/16/24 14:00 Cancel Diagnostic Test (Pha) 1 strip ACHS 04/16/24 17:00 05/01/24 05:52 1 STRIP Insulin Human Regular ACHS SC 04/16/24 17:00 05/01/24 05:52 2 UNITS Dextrose 50 ml UD PRN IV 04/16/24 14:00 Sodium Chloride 10 ml Q8HR IV 04/16/24 14:00 05/01/24 05:52 10 ML Ondansetron HCl 4 mg Q4HP PRN IV 04/16/24 14:00 04/29/24 23:17 4 MG Docusate Sodium 100 mg BIDPRN PRN PO 04/16/24 14:00 04/19/24 16:16 100 MG Acetaminophen 650 mg Q6HP PRN PO 04/16/24 14:00 Sevelamer HCl 800 mg TIDWM PO 04/16/24 18:00 05/01/24 17:40 800 MG Multivit/Ca Carb/ B Cmplx/FA/Prenat 1 tab DAILY PO 04/17/24 10:00 05/01/24 08:37 1 TAB Nitroglycerin 0.4 mg Q5MINP PRN SL 04/16/24 16:30 Meropenem 50 ml @ 17 mls/hr HS IV 04/18/24 22:00 Cancel Daptomycin / Sodium Chloride 50 ml @ 100 mls/hr TUTHSA IV 04/19/24 21:00 UNV Vancomycin HCl 0 ml @ 0 mls/hr UD IV 04/18/24 21:30 Cancel Diazepam 5 mg DAILY PRN PO 04/21/24 16:30 04/30/24 11:37 5 MG Gabapentin 100 mg TID PO 04/21/24 22:00 05/01/24 05:45 100 MG Cyclobenzaprine HCl 10 mg Q8HPRN PRN PO 04/24/24 10:30 04/24/24 13:05 10 MG Hydromorphone HCl 0.25 mg Q4HPRN PRN IV 04/24/24 11:15 05/01/24 17:41 0.25 MG Lorazepam 1 mg ONCE PRN IV 04/25/24 22:45 Haloperidol Lactate 2.5 mg Q8HP PRN IM 04/25/24 22:45 Daptomycin 500 mg/ Sodium Chloride 50 ml @ 100 mls/hr NONDIALYSIS IV 04/26/24 13:00 Cancel Vancomycin HCl 0 ml @ 0 mls/hr UD IV 04/26/24 12:00 Levofloxacin 250 mg DAILY PO 04/27/24 10:00 Cancel Ceftazidime/ Dextrose 0.5 gm/ Sodium Chloride 50 ml @ 16.667 mls/ hr DAILY@1800 IV 04/29/24 18:00 05/01/24 18:35 16.667 MLS/HR Physical Exam: General: NAD Neck: Supple. No masses. HEENT: PERRL. Normal lids and conjunctiva. Moist mucous membranes. Oropharynx without lesions, exudates, or excessive erythema. Normal appearance of the external aspects of the nose and ears. Heart: Regular rhythm, normal rate. No murmur. No lower extremity edema. Lungs: Normal respiratory effort. Clear to auscultation bilaterally. No wheezes. No crackles. Abdomen: Soft. Non-tender. Non-distended. No masses or abdominal hernia. MSK: - Strength: 2/5 strength in bilateral lower extremities. - Sensation: Intact to soft touch in all four limbs. - Spinal tenderness noted in the lumbar region. - No digital cyanosis. Normal strength and tone in upper extremities. Skin: Warm and dry, no rashes. Neuro: Alert. No facial droop or slurred speech. Extraocular movements intact. Psych: Appropriate mood. Full affect. Oriented to person, place, time, and situation. laboratory and microbiology Laboratory Tests 05/01/24 05:11 04/29/24 06:45 Test 04/29/24 06:45 Range/Units Serum Glucose 155 H 74-106 mg/dL Problem List/Assessment/Plan Problems(with codes): (1) Chronic back pain (2) ESRD (end stage renal disease) (3) Shortness of breath (4) Pneumonia, unspecified organism (5) Acute on chronic systolic heart failure (6) End stage renal disease on dialysis (7) Acute chest pain (8) Inability to walk (9) Bilateral leg weakness Problem List/Assessment/Plan ID Problem List: - Prevertebral abscess - Lumbar osteomyelitis/discitis - Bilateral lower extremity weakness - ESRD on dialysis - Seizure disorder - Hypertension COPD - Uncontrolled diabetes mellitus - Coronary artery disease, status post CABG and PTCA - History of pneumonia - History of buttock abscess with MRSA and E. coli infections Assessment This is a 59-year-old male with a past medical history of end-stage renal disease on dialysis, seizure disorder, hypertension, COPD, uncontrolled diabetes mellitus, and coronary artery disease status post CABG and PTCA, who presents with acute chest pain, shortness of breath, bilateral leg pain, inability to walk, and leg weakness. His symptoms have been worsening over the last several months, with health declining since February, necessitating the use of a walker for assistance. He was recently seen at an outside facility two days ago for unclear reasons; prior to this, he had pneumonia. He reports no current shortness of breath, dizziness, chest pain, fevers, or chills. He endorses weight loss and ongoing back pain in the lumbar region. Physical examination is notable for 2/5 strength in the bilateral lower extremities with full sensation, and spinal tenderness in the lumbar region. Laboratory studies reveal WBC 4.7, hemoglobin 10.2, platelet count 238, BUN 39, creatinine 7.2, glucose 126, BNP 1793, troponin 3.19. Chest X-ray shows opacities/infiltrates in both lung bases greater on the left side, markedly improved compared to prior thoracic imaging. MRI of the lumbar spine demonstrates findings most compatible with osteomyelitis/discitis with anterior vertebral abscess. No epidural abscess identified. Grade 1 anterior listhesis of L5 on S1 due to bilateral L5 pars defects. Multilevel degenerative disc disease with posterior facet arthropathy with evidence of nerve impingement at L4-L5 and L5-S1 levels. 04/19: appears to be clinically asymptomatic with exception of lower extremity weakness 04/20: Patients Chest , abdomen and pelvis Ct showed reticular opacities in the peripheral aspects of the lungs , mild super imposed lung opacities vs viral pneumonia similar to finding on 02/17/24. readministration of osteomyelitis L4 L5 associated with abscess , a visualized upper gluteal region is unremarkable with no evidence of ulcer abscess or sacral coxial erosion , their is moderate fecal retention and mild rectal fecal impaction tte wo vegetations 04/21: whitecount has downtred to 1.7 unclear ideology patients heart failure diagnosis is new with calcification of aortic valve 04/22: patients heart failure diagnosis is new 2: Vancomycin trots have been supra therapeutic elevated creatine of 31.2 and dose has been adjusted 04/24: whitecount is 2.2 , having some leukopenia and BUN is 39 , primarily neutrophilic loss and an unclear etiology for patients delirium 2: neurology evaluated patient and suspects largely organic/metabolic delirium , continues to be leukopenia 04/26: patient cannot get home antibiotics 04/27: delirium appears resolved , dialysis center is unable to provide cefapime 04/29: responding to antibiotics 04/30: tolerating antibiotics Plan: - continue ceftazodine for 6 weeks via dialysis - patient can get antibiotics via dialysis - leukopenia likely related to high vancomycin trots and patient has been difficult to dose in setting of renal failure - STOP cefapime - continue vancomycin for 6 weeks with dialysis - would exercise delirium precautions , avoiding lab sticks and waking at night , keeping patient near window open light during the day - would hold off on KAMI for now and can get the workup as outpatient to see if patient needs additional remedies for endocarditis - follow up with infectious disease in 4 weeks , patient may need a longer coarse of antibiotics and maybe oral treatment until epidural abscess is resolved on MRI - defer electromagnetic leg weakness and need for additional physical therapy and mobility issued to primary service - follow up with neurosurgery as an outpatient and advise patient should additional neurological deficits develop or fevers recur on antibiotics or bowel/urinary incontinents patient should come to the emergency room for further evaluation - Infectious Disease: - Initiate broad-spectrum antibiotics covering likely organisms, including MRSA and E. coli, pending culture results. vancomycin and ceftriaxone 2gq 12hrs. - Obtain blood cultures and inflammatory markers - Neurosurgery Consult: - Evaluate for possible surgical intervention for vertebral abscess and spinal instability.--> defer to dr hodge's who is recommending medical conservative management with IV abx. - Renal: - Continue hemodialysis as scheduled. - Monitor renal function and electrolytes closely. - Neurology: - Monitor for signs of neurological deterioration. - Endocrinology: - Optimize glycemic control for uncontrolled diabetes mellitus. - Pulmonary: - Monitor respiratory status given history of COPD and recent pneumonia. - Provide smoking cessation counseling. - Cardiology: - Monitor cardiac status given elevated BNP and troponin levels. - Consider further cardiac evaluation to rule out acute coronary syndrome. - Physical Therapy: - Assist with mobility and strengthening exercises as tolerated. - Nutrition: - Assess nutritional status; provide dietary support to address weight loss. Isolation Precautions: Standard Plan discussed with: Other Dietary Evaluation Review Comments: [facility]-60 low fat low cholesterol renal Standard diet Expected Outcomes/Goals: gradual wt loss ENDY CAMP MD May 01, 2024 21:35
--- NOTE | 2024-05-01 21:37 | DVHPN2 ---
Consult Progress Note Date Seen: May 01, 2024 Subjective Patient reports: Other (did not get dialysis last 2 days and is due for dialysis tommorow , edema in legs , volume is up , no tahcycardia ) Objective vital signs Vital Sign Date Time Temp Pulse Resp B/P (MAP) Pulse Ox O2 Delivery O2 Flow Rate FiO2 05/01/24 21:00 97.5 87 18 121/62 (81) 100 97.5 05/01/24 20:00 Room Air* 0 21 Total Intake and Output 04/30/24 04/30/24 05/01/24 15:00 23:00 07:00 Intake Total 588.3 ml 0 ml Output Total 120 ml Balance 588.3 ml -120 ml medications Current Medications Medications Dose Ordered Sig/Gerard Route Start Time Stop Time Status Last Admin Dose Admin Aspirin 81 mg DAILY PO 04/17/24 10:00 05/01/24 08:38 81 MG Clopidogrel Bisulfate 75 mg DAILY PO 04/17/24 10:00 05/01/24 08:38 75 MG Furosemide 40 mg DAILY IV 04/17/24 10:00 05/01/24 08:37 40 MG Hydralazine HCl 10 mg Q6HP PRN IV 04/16/24 14:00 04/29/24 17:57 10 MG Carvedilol 12.5 mg Q12HR PO 04/16/24 22:00 05/01/24 08:38 12.5 MG Amlodipine Besylate 5 mg DAILY PO 04/17/24 10:00 05/01/24 08:39 5 MG Atorvastatin Calcium 20 mg HS PO 04/16/24 22:00 04/30/24 21:34 20 MG Albuterol 2.5 mg Q4HPRN PRN NEB 04/16/24 14:00 Cancel Ipratropium [place] 0.5 mg Q4HPRN PRN NEB 04/16/24 14:00 Cancel Diagnostic Test (Pha) 1 strip ACHS 04/16/24 17:00 05/01/24 05:52 1 STRIP Insulin Human Regular ACHS SC 04/16/24 17:00 05/01/24 05:52 2 UNITS Dextrose 50 ml UD PRN IV 04/16/24 14:00 Sodium Chloride 10 ml Q8HR IV 04/16/24 14:00 05/01/24 05:52 10 ML Ondansetron HCl 4 mg Q4HP PRN IV 04/16/24 14:00 04/29/24 23:17 4 MG Docusate Sodium 100 mg BIDPRN PRN PO 04/16/24 14:00 04/19/24 16:16 100 MG Acetaminophen 650 mg Q6HP PRN PO 04/16/24 14:00 Sevelamer HCl 800 mg TIDWM PO 04/16/24 18:00 05/01/24 17:40 800 MG Multivit/Ca Carb/ B Cmplx/FA/Prenat 1 tab DAILY PO 04/17/24 10:00 05/01/24 08:37 1 TAB Nitroglycerin 0.4 mg Q5MINP PRN SL 04/16/24 16:30 Meropenem 50 ml @ 17 mls/hr HS IV 04/18/24 22:00 Cancel Daptomycin / Sodium Chloride 50 ml @ 100 mls/hr TUTHSA IV 04/19/24 21:00 UNV Vancomycin HCl 0 ml @ 0 mls/hr UD IV 04/18/24 21:30 Cancel Diazepam 5 mg DAILY PRN PO 04/21/24 16:30 04/30/24 11:37 5 MG Gabapentin 100 mg TID PO 04/21/24 22:00 05/01/24 05:45 100 MG Cyclobenzaprine HCl 10 mg Q8HPRN PRN PO 04/24/24 10:30 04/24/24 13:05 10 MG Hydromorphone HCl 0.25 mg Q4HPRN PRN IV 04/24/24 11:15 05/01/24 17:41 0.25 MG Lorazepam 1 mg ONCE PRN IV 04/25/24 22:45 Haloperidol Lactate 2.5 mg Q8HP PRN IM 04/25/24 22:45 Daptomycin 500 mg/ Sodium Chloride 50 ml @ 100 mls/hr NONDIALYSIS IV 04/26/24 13:00 Cancel Vancomycin HCl 0 ml @ 0 mls/hr UD IV 04/26/24 12:00 Levofloxacin 250 mg DAILY PO 04/27/24 10:00 Cancel Ceftazidime/ Dextrose 0.5 gm/ Sodium Chloride 50 ml @ 16.667 mls/ hr DAILY@1800 IV 04/29/24 18:00 05/01/24 18:35 16.667 MLS/HR Physical Exam: General: NAD Neck: Supple. No masses. HEENT: PERRL. Normal lids and conjunctiva. Moist mucous membranes. Oropharynx without lesions, exudates, or excessive erythema. Normal appearance of the external aspects of the nose and ears. Heart: Regular rhythm, normal rate. No murmur. No lower extremity edema. Lungs: Normal respiratory effort. Clear to auscultation bilaterally. No wheezes. No crackles. Abdomen: Soft. Non-tender. Non-distended. No masses or abdominal hernia. MSK: - Strength: 2/5 strength in bilateral lower extremities. - Sensation: Intact to soft touch in all four limbs. - Spinal tenderness noted in the lumbar region. - No digital cyanosis. Normal strength and tone in upper extremities. Skin: Warm and dry, no rashes. Neuro: Alert. No facial droop or slurred speech. Extraocular movements intact. Psych: Appropriate mood. Full affect. Oriented to person, place, time, and situation. laboratory and microbiology Laboratory Tests 05/01/24 05:11 04/29/24 06:45 Test 04/29/24 06:45 Range/Units Serum Glucose 155 H 74-106 mg/dL Problem List/Assessment/Plan Problems(with codes): (1) Bilateral lower extremity pain (2) Chest pain (3) Inability to walk (4) Bilateral leg weakness (5) Acute chest pain (6) End stage renal disease on dialysis (7) Pneumonia, unspecified organism (8) Acute on chronic systolic heart failure (9) ESRD (end stage renal disease) (10) Shortness of breath (11) Chronic back pain Problem List/Assessment/Plan ID Problem List: - Prevertebral abscess - Lumbar osteomyelitis/discitis - Bilateral lower extremity weakness - ESRD on dialysis - Seizure disorder - Hypertension COPD - Uncontrolled diabetes mellitus - Coronary artery disease, status post CABG and PTCA - History of pneumonia - History of buttock abscess with MRSA and E. coli infections Assessment This is a 59-year-old male with a past medical history of end-stage renal disease on dialysis, seizure disorder, hypertension, COPD, uncontrolled diabetes mellitus, and coronary artery disease status post CABG and PTCA, who presents with acute chest pain, shortness of breath, bilateral leg pain, inability to walk, and leg weakness. His symptoms have been worsening over the last several months, with health declining since February, necessitating the use of a walker for assistance. He was recently seen at an outside facility two days ago for unclear reasons; prior to this, he had pneumonia. He reports no current shortness of breath, dizziness, chest pain, fevers, or chills. He endorses weight loss and ongoing back pain in the lumbar region. Physical examination is notable for 2/5 strength in the bilateral lower extremities with full sensation, and spinal tenderness in the lumbar region. Laboratory studies reveal WBC 4.7, hemoglobin 10.2, platelet count 238, BUN 39, creatinine 7.2, glucose 126, BNP 1793, troponin 3.19. Chest X-ray shows opacities/infiltrates in both lung bases greater on the left side, markedly improved compared to prior thoracic imaging. MRI of the lumbar spine demonstrates findings most compatible with osteomyelitis/discitis with anterior vertebral abscess. No epidural abscess identified. Grade 1 anterior listhesis of L5 on S1 due to bilateral L5 pars defects. Multilevel degenerative disc disease with posterior facet arthropathy with evidence of nerve impingement at L4-L5 and L5-S1 levels. 04/19: appears to be clinically asymptomatic with exception of lower extremity weakness 04/20: Patients Chest , abdomen and pelvis Ct showed reticular opacities in the peripheral aspects of the lungs , mild super imposed lung opacities vs viral pneumonia similar to finding on 02/17/24. readministration of osteomyelitis L4 L5 associated with abscess , a visualized upper gluteal region is unremarkable with no evidence of ulcer abscess or sacral coxial erosion , their is moderate fecal retention and mild rectal fecal impaction tte wo vegetations 04/21: whitecount has downtred to 1.7 unclear ideology patients heart failure diagnosis is new with calcification of aortic valve 216: patients heart failure diagnosis is new 04/23: Vancomycin trots have been supra therapeutic elevated creatine of 31.2 and dose has been adjusted 04/24: whitecount is 2.2 , having some leukopenia and BUN is 39 , primarily neutrophilic loss and an unclear etiology for patients delirium 04/25: neurology evaluated patient and suspects largely organic/metabolic delirium , continues to be leukopenia 04/26: patient cannot get home antibiotics 04/27: delirium appears resolved , dialysis center is unable to provide cefapime 04/29: responding to antibiotics 04/30: tolerating antibiotics Plan: - continue ceftazodine for 6 weeks via dialysis - patient can get antibiotics via dialysis - leukopenia likely related to high vancomycin trots and patient has been difficult to dose in setting of renal failure - STOP cefapime - continue vancomycin for 6 weeks with dialysis - would exercise delirium precautions , avoiding lab sticks and waking at night , keeping patient near window open light during the day - would hold off on KAMI for now and can get the workup as outpatient to see if patient needs additional remedies for endocarditis - follow up with infectious disease in 4 weeks , patient may need a longer coarse of antibiotics and maybe oral treatment until epidural abscess is resolved on MRI - defer electromagnetic leg weakness and need for additional physical therapy and mobility issued to primary service - follow up with neurosurgery as an outpatient and advise patient should additional neurological deficits develop or fevers recur on antibiotics or bowel/urinary incontinents patient should come to the emergency room for further evaluation - Infectious Disease: - Initiate broad-spectrum antibiotics covering likely organisms, including MRSA and E. coli, pending culture results. vancomycin and ceftriaxone 2gq 12hrs. - Obtain blood cultures and inflammatory markers - Neurosurgery Consult: - Evaluate for possible surgical intervention for vertebral abscess and spinal instability.--> defer to dr hodge's who is recommending medical conservative management with IV abx. - Renal: - Continue hemodialysis as scheduled. - Monitor renal function and electrolytes closely. - Neurology: - Monitor for signs of neurological deterioration. - Endocrinology: - Optimize glycemic control for uncontrolled diabetes mellitus. - Pulmonary: - Monitor respiratory status given history of COPD and recent pneumonia. - Provide smoking cessation counseling. - Cardiology: - Monitor cardiac status given elevated BNP and troponin levels. - Consider further cardiac evaluation to rule out acute coronary syndrome. - Physical Therapy: - Assist with mobility and strengthening exercises as tolerated. - Nutrition: - Assess nutritional status; provide dietary support to address weight loss. Isolation Precautions: Standard Plan discussed with: Other [facility]ary Evaluation [facility] Comments[facility] Standard diet Expected Outcomes/Goals: gradual wt loss ENDY CAMP MD May 01, 2024 21:37
[2024-05-02] VITALS (7 sets, daily range): BP systolic 98–144; BP diastolic 32–68; PULSE 68–86; RESP 16–19; TEMP 97.5–98.4; O2SAT 94–100
--- NOTE | 2024-05-02 11:15 | DVHDS2 ---
Discharge Summary Date of Admission Apr 16, 2024 at 16:18 Date of Discharge: May 02, 2024 Labs/Diagnostic Data: Laboratory Results Test 05/01/24 21:41 05/01/24 05:11 04/29/24 06:45 04/27/24 07:01 POC Glucose 146 mg/dl (70-106) White Blood Count 10.3 10^3/uL (4.4-10.8) Red Blood Count 3.12 10^6/uL (4.5-5.90) Hemoglobin 9.1 g/dL (13.5-17.5) Hematocrit 28.2 % (41.0-53.0) Mean Corpuscular Volume 90.1 fL (80.0-100.0) Mean Corpuscular Hemoglobin 29.2 pg (28.0-32.0) Mean Corpuscular Hemoglobin Concent 32.4 g/dL (32.0-36.0) Red Cell Distribution Width 16.2 % (11.8-14.3) Platelet Count 224 10^3/uL (140-450) Mean Platelet Volume 7.0 fL (6.9-10.8) Neutrophils (%) (Auto) 72.3 % (37.0-80.0) Lymphocytes (%) (Auto) 12.8 % (10.0-50.0) Monocytes (%) (Auto) 11.4 % (0.0-12.0) Eosinophils (%) (Auto) 2.9 % (0.0-7.0) Basophils (%) (Auto) 0.6 % (0.0-2.0) Neutrophils # (Auto) 7.4 10 ^3/uL (1.6-8.6) Lymphocytes # (Auto) 1.3 10 ^3/uL (0.4-5.4) Monocytes # (Auto) 1.2 10 ^3/uL (0-1.3) Eosinophils # (Auto) 0.3 10 ^3/uL (0-0.8) Basophils # (Auto) 0.1 10 ^3/uL (0-0.2) Nucleated Red Blood Cells 0.1 % Creatinine 6.56 mg/dL (0.700-1.30) Glomerular Filtration Rate Calc 9 mL/min (>90) Random Vancomycin Level 17.0 ug/mL (5-10) Sodium Level 134 mmol/L (136-145) Potassium Level 4.4 mmol/L (3.5-5.1) Chloride Level 94 mmol/L (98-107) Carbon Dioxide Level 29 mmol/L (20-31) Anion Gap 11 (5-15) Blood Urea Nitrogen 38 mg/dL (9-23) BUN/Creatinine Ratio 4.5 (10.0-20.0) Serum Glucose 155 mg/dL (74-106) Calcium Level 10.0 mg/dL (8.7-10.4) Creatine Kinase 90 U/L (46-171) Test 04/26/24 03:46 04/25/24 14:51 04/21/24 05:40 04/20/24 11:48 Differential Total Cells Counted 100.0 (100) Neutrophils % (Manual) 8 (37.0-80.0) Band Neutrophils % (Manual) 0 Lymphocytes % (Manual) 57 (10.0-50.0) Monocytes % (Manual) 30 (0-12) Eosinophils % (Manual) 5 (0-7) Basophils % (Manual) 0 (0.0-2.0) Metamyelocytes % (manual) 0 Myelocytes % (Manual) 0 Promyelocytes % (Manual) 0 Blast Cells % (Manual) 0 Reactive Lymphocytes 0 Platelet Estimate Adequate Magnesium Level 2.6 mg/dL (1.6-2.6) Total Bilirubin 0.2 mg/dL (0.2-1.0) Aspartate Amino Transferase (AST) 16 U/L (13-40) Alanine Aminotransferase (ALT) 12 U/L (7-40) Alkaline Phosphatase 85 U/L (46-116) Total Protein 7.2 g/dL (5.7-8.2) Albumin 4.5 g/dL (3.2-4.8) Ammonia < 10 umol/L (11-32) Vitamin B12 Level 863 pg/mL (211-911) Folic Acid 11.67 ng/mL (>5.38) Thyroid Stimulating Hormone (TSH) 3.04 uIU/mL (0.55-4.78) Hepatitis A IgM Antibody Negative Hepatitis B Surface Antigen Negative (Negative) Hepatitis B Core IgM Antibody Negative (Negative) Hepatitis C Antibody Negative (Negative) Prothrombin Time 11.7 sec (9.3-11.8) Prothrombin Time INR 1.12 (0.9-1.15) Activated Partial Thromboplast Time 40.2 SEC (24.5-34.5) Test 04/20/24 04:43 04/17/24 07:11 04/16/24 03:30 04/15/24 22:49 Erythrocyte Sedimentation Rate 102 mm/hr (0-20) C-Reactive Protein High Sensitivity 3.43 mg/dL (<1.0) Iron Level 38 ug/dL (65-175) Total Iron Binding Capacity 196 ug/dL (250-425) Percent Iron Saturation 19.4 % (20-55) Ferritin 1012.9 ng/mL (22-322) Urine Color Light-yellow (Yellow) Urine Clarity Clear (Clear) Urine pH 8.5 (5.0-9.0) Urine Specific Endeavor 1.012 (1.001-1.035) Urine Protein 3+ (Negative) Urine Ketones Negative (Negative) Urine Blood Negative /uL (Negative) Urine Nitrite Negative (Negative) Urine Bilirubin Negative (Negative) Urine Urobilinogen Normal mg/dL (Negative) Urine Leukocyte Esterase Trace /uL (Negative) Urine RBC 2 /hpf (0 - 3) Urine Microscopic WBC 10 /HPF (0-3) Urine Squamous Epithelial Cells Few /hpf (<5) Urine Bacteria None seen /hpf (None Seen) Urine Glucose 2+ mg/dL (Normal) Troponin I High Sensitivity 21 ng/L (</=54) B-Type Natriuretic Peptide 1793.19 pg/mL (0-100) Other Laboratory Tests 05/01/24 05:11 04/29/24 06:45 Brief Hx & Hospital Course: Final diagnoses: Intractable lower back pain due to spinal abscess and diskitis Hyperkalemia End-stage renal disease on hemodialysis Generalized weakness Possible underlying pneumonia Chronic anemia of chronic kidney disease Chest pain most likely noncardiac Coronary artery disease status post PTCA x6 on aspirin and Plavix Acute on chronic heart failure with reduced ejection fraction last ejection fraction 35% Obesity Tobacco use Type 2 diabetes Dyslipidemia Hypertension 59-year-old male with a history of end-stage renal disease on hemodialysis who came with back pain and lower extremity weakness CT scan of the lumbar spine was negative initially however an MRI of the lumbar spine showed L4-L5 diskitis with an anterior prevertebral abscess Spinal surgery consult was obtained Medical management with IV antibiotics was recommended He was started on broad-spectrum IV antibiotics His dialysis was continued Physical therapy worked with the him Infectious Disease consultation was also obtained and recommendation was for 6 weeks of IV antibiotics Initially we tried to get him on a IV vancomycin with dialysis and Rocephin IV and therefore he had a tunneled central line done however his insurance does not cover any home health or IV antibiotics at home and therefore the only option for him to have the antibiotics was to get it through dialysis We contacted dialysis center and they are willing to give him vancomycin and Fortaz with dialysis The plan is therefore for him to go home on vancomycin and Fortaz IV with dialysis for 6 weeks He does not need the central line anymore and therefore it will be removed before discharge We ordered him a wheelchair for use at home Condition at Discharge: Stable Final Diagnosis/Problems List Lumbar spine diskitis and abscess Hyperkalemia End-stage renal disease on hemodialysis Generalized weakness Chronic anemia of chronic kidney disease Chest pain most likely noncardiac Coronary artery disease status post PTCA x6 on aspirin and Plavix Acute on chronic heart failure with reduced ejection fraction last ejection fraction 35% Obesity Tobacco use Type 2 diabetes Dyslipidemia Hypertension Discharge Disposition: Home SNF Discharge Will this Physician continue t: No Discharge Instruct/Medications Diet: Renal Activity: No Restrictions, As Tolerated Follow Up/Referral: Hemodialysis tomorrow as scheduled Medications: Vancomycin and Fortaz with dialysis Resume the home medications Discharge Statement: "Patient was advised to return to the ER or call 911 if any headaches, dizziness, shortness of breath, chest pain, abdominal pain, bleeding, fevers, or worsening of medical condition. Patient was counseled about treatment plan, medications, possible side effects, patientverbalized understanding. All questions were answered to the best of my ability. This discharge took greater then 30 minutes in planning, reviewing documentation, counseling the patient, and discussing with other team members." ASSESSMENT ASSESSMENT Assessment Lumbar spine diskitis and abscess Hyperkalemia End-stage renal disease on hemodialysis Generalized weakness Chronic anemia of chronic kidney disease Chest pain most likely noncardiac Coronary artery disease status post PTCA x6 on aspirin and Plavix Acute on chronic heart failure with reduced ejection fraction last ejection fraction 35% Obesity Tobacco use Type 2 diabetes Dyslipidemia Hypertension Date of Service: May 02, 2024 Billing Provider: SADAF SANTANA MD Common Visit Codes: 57450-YUY/OBS DISCH DAY >30min SADAF SANTANA MD May 02, 2024 11:15
[2024-05-02] MEDS ORDERED: HYDR-4902 PO (11:18)
[2024-05-02] MEDS ORDERED: LIDOCAINE 2%HCL (LOCAL ANESTH.) INJ 10ml MDV ONE (12:58)
--- NOTE | 2024-05-02 14:11 | DVH ---
XY CHEST PORTABLE, HISTORY: POST REMOVAL OF POWER LINE PROCEDURE: An informed consent was obtained. The patient was placed inclined on a gurney. The tunnele d catheter was removed with retraction. Hemostasis of the venotomy site was obtained with manual pres sure. The skin opening was dressed with a bandage. No immediate complication was noted. IMPRESSION: Successful removal of right internal jugular vein tunneled PICC catheter.
--- NOTE | 2024-05-04 18:16 | DVHPN2 ---
Consult Progress Note Date Seen: May 02, 2024 Subjective Patient reports: Other (in wheelchair and workign with physical therapy , has bilateral foot amputations and appear clean ) Objective vital signs Vital Sign Date Time Temp Pulse Resp B/P (MAP) Pulse Ox O2 Delivery O2 Flow Rate FiO2 05/02/24 13:20 98.4 68 17 112/64 (80) 94 98.4 05/02/24 10:00 Nasal Cannula* 3 32 medications Current Medications Medications Dose Ordered Sig/Gerard Route Start Time Stop Time Status Last Admin Dose Admin Albuterol 2.5 mg Q4HPRN PRN NEB 04/16/24 14:00 Cancel Ipratropium Harrah 0.5 mg Q4HPRN PRN NEB 04/16/24 14:00 Cancel Meropenem 50 ml @ 17 mls/hr HS IV 04/18/24 22:00 Cancel Daptomycin / Sodium Chloride 50 ml @ 100 mls/hr TUTHSA IV 04/19/24 21:00 UNV Vancomycin HCl 0 ml @ 0 mls/hr UD IV 04/18/24 21:30 Cancel Daptomycin 500 mg/ Sodium Chloride 50 ml @ 100 mls/hr NONDIALYSIS IV 04/26/24 13:00 Cancel Levofloxacin 250 mg DAILY PO 04/27/24 10:00 Cancel Physical Exam: General: NAD Neck: Supple. No masses. HEENT: PERRL. Normal lids and conjunctiva. Moist mucous membranes. Oropharynx without lesions, exudates, or excessive erythema. Normal appearance of the external aspects of the nose and ears. Heart: Regular rhythm, normal rate. No murmur. No lower extremity edema. Lungs: Normal respiratory effort. Clear to auscultation bilaterally. No wheezes. No crackles. Abdomen: Soft. Non-tender. Non-distended. No masses or abdominal hernia. MSK: - Strength: 2/5 strength in bilateral lower extremities. - Sensation: Intact to soft touch in all four limbs. - Spinal tenderness noted in the lumbar region. - No digital cyanosis. Normal strength and tone in upper extremities. Skin: Warm and dry, no rashes. Neuro: Alert. No facial droop or slurred speech. Extraocular movements intact. Psych: Appropriate mood. Full affect. Oriented to person, place, time, and situation. laboratory and microbiology Laboratory Tests 05/01/24 05:11 2/23/25 06:45 Test 04/29/24 06:45 Range/Units Serum Glucose 155 H 74-106 mg/dL Problem List/Assessment/Plan Problems(with codes): (1) Chronic back pain (2) ESRD (end stage renal disease) (3) Shortness of breath (4) Pneumonia, unspecified organism (5) Acute on chronic systolic heart failure (6) End stage renal disease on dialysis (7) Acute chest pain (8) Bilateral leg weakness (9) Inability to walk Problem List/Assessment/Plan ID Problem List: - Prevertebral abscess - Lumbar osteomyelitis/discitis - Bilateral lower extremity weakness - ESRD on dialysis - Seizure disorder - Hypertension COPD - Uncontrolled diabetes mellitus - Coronary artery disease, status post CABG and PTCA - History of pneumonia - History of buttock abscess with MRSA and E. coli infections Assessment This is a 59-year-old male with a past medical history of end-stage renal disease on dialysis, seizure disorder, hypertension, COPD, uncontrolled diabetes mellitus, and coronary artery disease status post CABG and PTCA, who presents with acute chest pain, shortness of breath, bilateral leg pain, inability to walk, and leg weakness. His symptoms have been worsening over the last several months, with health declining since February, necessitating the use of a walker for assistance. He was recently seen at an outside facility two days ago for unclear reasons; prior to this, he had pneumonia. He reports no current shortness of breath, dizziness, chest pain, fevers, or chills. He endorses weight loss and ongoing back pain in the lumbar region. Physical examination is notable for 2/5 strength in the bilateral lower extremities with full sensation, and spinal tenderness in the lumbar region. Laboratory studies reveal WBC 4.7, hemoglobin 10.2, platelet count 238, BUN 39, creatinine 7.2, glucose 126, BNP 1793, troponin 3.19. Chest X-ray shows opacities/infiltrates in both lung bases greater on the left side, markedly improved compared to prior thoracic imaging. MRI of the lumbar spine demonstrates findings most compatible with osteomyelitis/discitis with anterior vertebral abscess. No epidural abscess identified. Grade 1 anterior listhesis of L5 on S1 due to bilateral L5 pars defects. Multilevel degenerative disc disease with posterior facet arthropathy with evidence of nerve impingement at L4-L5 and L5-S1 levels. 04/19: appears to be clinically asymptomatic with exception of lower extremity weakness 04/20: Patients Chest , abdomen and pelvis Ct showed reticular opacities in the peripheral aspects of the lungs , mild super imposed lung opacities vs viral pneumonia similar to finding on 02/17/24. readministration of osteomyelitis L4 L5 associated with abscess , a visualized upper gluteal region is unremarkable with no evidence of ulcer abscess or sacral coxial erosion , their is moderate fecal retention and mild rectal fecal impaction tte wo vegetations 04/21: whitecount has downtred to 1.7 unclear ideology patients heart failure diagnosis is new with calcification of aortic valve 04/22: patients heart failure diagnosis is new 04/23: Vancomycin trots have been supra therapeutic elevated creatine of 31.2 and dose has been adjusted 04/24: whitecount is 2.2 , having some leukopenia and BUN is 39 , primarily neutrophilic loss and an unclear etiology for patients delirium 04/25: neurology evaluated patient and suspects largely organic/metabolic delirium , continues to be leukopenia 04/26: patient cannot get home antibiotics 04/27: delirium appears resolved , dialysis center is unable to provide cefapime 04/29: responding to antibiotics 04/30: tolerating antibiotics 05/01: Patients cytopenias has resolved , whitecount is 10.3 ,dialysis is able to accommodate for patients vancomycin and ceftazidime dosing Plan: - continue ceftazodine for 6 weeks via dialysis - patient can get antibiotics via dialysis - leukopenia likely related to high vancomycin trots and patient has been difficult to dose in setting of renal failure - STOP cefapime - continue vancomycin for 6 weeks with dialysis - would exercise delirium precautions , avoiding lab sticks and waking at night , keeping patient near window open light during the day - would hold off on KAMI for now and can get the workup as outpatient to see if patient needs additional remedies for endocarditis - follow up with infectious disease in 4 weeks , patient may need a longer coarse of antibiotics and maybe oral treatment until epidural abscess is resolved on MRI - defer electromagnetic leg weakness and need for additional physical therapy and mobility issued to primary service - follow up with neurosurgery as an outpatient and advise patient should additional neurological deficits develop or fevers recur on antibiotics or bowel/urinary incontinents patient should come to the emergency room for further evaluation - Infectious Disease: - Initiate broad-spectrum antibiotics covering likely organisms, including MRSA and E. coli, pending culture results. vancomycin and ceftriaxone 2gq 12hrs. - Obtain blood cultures and inflammatory markers - Neurosurgery Consult: - Evaluate for possible surgical intervention for vertebral abscess and spinal instability.--> defer to dr hodge's who is recommending medical conservative management with IV abx. - Renal: - Continue hemodialysis as scheduled. - Monitor renal function and electrolytes closely. - Neurology: - Monitor for signs of neurological deterioration. - Endocrinology: - Optimize glycemic control for uncontrolled diabetes mellitus. - Pulmonary: - Monitor respiratory status given history of COPD and recent pneumonia. - Provide smoking cessation counseling. - Cardiology: - Monitor cardiac status given elevated BNP and troponin levels. - Consider further cardiac evaluation to rule out acute coronary syndrome. - Physical Therapy: - Assist with mobility and strengthening exercises as tolerated. - Nutrition: - Assess nutritional status; provide dietary support to address weight loss. Isolation Precautions: Standard Plan discussed with: Other Dietary Evaluation [facility] Comments[facility] fat low cholesterol renal Standard diet Expected Outcomes/Goals: gradual wt loss ENDY CAMP MD May 04, 2024 18:16
== END 2024-05-02 16:05 | disposition home or self-care (01) | DRG 94 ==
LOC: EDBD 21:45 → ER 21:45 → TELE 04-16 16:18 → TELE-WESTW 04-16 16:20 → OVERFLOW 04-17 15:21 → WEST WING 04-17 15:30 → OVERFLOW 04-18 13:08 → TELE-WESTW 04-18 13:13 → WEST WING 04-21 11:15 → TELE-WESTW 04-23 19:22
PROVIDERS: ADMIT Internal Medicine Geriatric Medicine; ATTEND Internal Medicine Geriatric Medicine
PROC: 5A1D70Z Performance of Urinary Filtration, Intermittent, Less than 6 Hours Per Day (ICD-10-PCS; 2024-04-17)
PROC: 5A1D70Z Performance of Urinary Filtration, Intermittent, Less than 6 Hours Per Day (ICD-10-PCS; 2024-04-19)
PROC: 5A1D70Z Performance of Urinary Filtration, Intermittent, Less than 6 Hours Per Day (ICD-10-PCS; 2024-04-21)
PROC: 0JH63XZ Insertion of Tunneled Vascular Access Device into Chest Subcutaneous Tissue and Fascia, Percutaneous Approach (ICD-10-PCS; principal; 2024-04-23)
PROC: 02H633Z Insertion of Infusion Device into Right Atrium, Percutaneous Approach (ICD-10-PCS; 2024-04-23)
PROC: B5181ZA Fluoroscopy of Superior Vena Cava using Low Osmolar Contrast, Guidance (ICD-10-PCS; 2024-04-23)
PROC: B548ZZA Ultrasonography of Superior Vena Cava, Guidance (ICD-10-PCS; 2024-04-23)
PROC: 5A1D70Z Performance of Urinary Filtration, Intermittent, Less than 6 Hours Per Day (ICD-10-PCS; 2024-04-25)
PROC: 5A1D70Z Performance of Urinary Filtration, Intermittent, Less than 6 Hours Per Day (ICD-10-PCS; 2024-04-27)
PROC: 5A1D70Z Performance of Urinary Filtration, Intermittent, Less than 6 Hours Per Day (ICD-10-PCS; 2024-04-30)
DX: G06.1 Intraspinal abscess and granuloma (principal); G93.41 Metabolic encephalopathy; I50.23 Acute on chronic systolic (congestive) heart failure; N18.6 End stage renal disease; I13.2 Hypertensive heart and chronic kidney disease with heart failure and with stage 5 chronic kidney disease, or end stage renal disease; M46.26 Osteomyelitis of vertebra, lumbar region; N39.0 Urinary tract infection, site not specified; M46.46 Discitis, unspecified, lumbar region; E11.69 Type 2 diabetes mellitus with other specified complication; E66.9 Obesity, unspecified; E11.22 Type 2 diabetes mellitus with diabetic chronic kidney disease; E78.5 Hyperlipidemia, unspecified; I25.10 Atherosclerotic heart disease of native coronary artery without angina pectoris; E87.5 Hyperkalemia; D63.1 Anemia in chronic kidney disease; G40.909 Epilepsy, unspecified, not intractable, without status epilepticus; F17.210 Nicotine dependence, cigarettes, uncomplicated; J44.89 Other specified chronic obstructive pulmonary disease; G89.29 Other chronic pain; Z71.6 Tobacco abuse counseling; Z99.2 Dependence on renal dialysis; I25.2 Old myocardial infarction; Z90.49 Acquired absence of other specified parts of digestive tract; Z95.5 Presence of coronary angioplasty implant and graft; Z95.1 Presence of aortocoronary bypass graft; Z79.82 Long term (current) use of aspirin; Z79.02 Long term (current) use of antithrombotics/antiplatelets; Z79.899 Other long term (current) drug therapy; Z88.0 Allergy status to penicillin; Z82.49 Family history of ischemic heart disease and other diseases of the circulatory system; Z83.3 Family history of diabetes mellitus; Z79.4 Long term (current) use of insulin; Z87.01 Personal history of pneumonia (recurrent); Z68.27 Body mass index [BMI] 27.0-27.9, adult
CPT/HCPCS: 36415; 36558; 70450; 70551; 71045; 71250; 72131; 72148; 72170; 74176; 77001; 80048; 80053; 80074; 80202; 81001; 82140; 82550; 82565; 82607; 82728; 82746; 82962; 83540; 83550; 83735; 83880; 84443; 84484; 85007; 85018; 85025; 85027; 85610; 85652; 85730; 86141; 87040; 87081; 90935; 92610; 93005; 94640; 95819; 97110; 97116; 97163; 97530; 99152; A4565; G0378; J1642; J1815; J2003; J2185; J2250; J2405

== ENCOUNTER 2024-07-11 16:33 | Inpatient (IN) | payer MEDICARE, OTHER ==
[~2024-07-11] VITALS: Ht 185.4 cm; Wt 89.6 kg
[~2024-07-11 16:33] MED LIST changes: +CLON0.1T PO; +COLCPOW2 PO; -DIA5T GT; +DIA5T PO; +HYDR-4902 PO; -LEVO500T91 PO; -LEVO750T40 PO; +METO1TAB9 PO; +ONDA-155 PO
[2024-07-11] MEDS: MORPHINE SULFATE 4 MG/ML SYR/VIAL IV ONE (17:15)
[2024-07-11] MEDS: ONDANSETRON HCL 4 MG/2 ML VIAL IV ONE (17:15)
--- NOTE | 2024-07-11 17:28 | ED.PDOC ---
Musculoskeletal HPI Comments 59 year old male HANG presents to the ED with chief complaint of right hip pain. Patient reports that went heading to the kitchen earlier today, he suddenly felt severe right hip pain, making his leg give out a bit. Patient relays that he did not trip or fall recently. Patient denies any chest pain, SOB, numbness, weak ness, or tingling of extremities. Chief Complaint: Seizure Time Seen by MD: 17:22 Primary Care Provider: UNKNOWN Reviewed Notes: Nurses Notes, Medications, Allergies Allergies: Coded Allergies: Penicillins (Verified Allergy, Unknown, 09/19/23) Tetanus Toxoid (Verified Allergy, Unknown, 09/19/23) Home Meds Active Scripts Hydrocodone-Acetaminophen (Hydrocodone Bitartrate/AC 5-325 mg) 1 Tab Tab, 1 TAB PO Q6HP PRN, #30 TAB Prov:SADAF SANTANA MD 05/02/24 Prednisone (Prednisone) 20 Mg Tab, 40 MG PO DAILY for 5 Days, #10 MG 0 Refills Prov:BILLY DAVISON MD 03/12/24 Sodium Zirconium Cyclosilicate (Lokelma) 10 Gm Hernandez, 10 GM PO DAILY, #10 PACK Prov:ENDY CORTÉS MD 03/04/24 Clopidogrel Bisulfate (CLOPIDOGREL) 75 Mg Tab, 75 MG PO DAILY for 30 Days, #30 TAB Prov:LEÓN COLLINS MD 08/16/23 Reported Medications Colchicine (Colchicine) Pow, 0.6 MG PO Q12HR for 30 Days, MG 04/17/24 Ondansetron HCl (Ondansetron) 4 Mg Tab, 4 MG PO, TAB 04/17/24 Metoprolol Succinate (Metoprolol Succinate Er) 100 Mg Tab, 1 TAB PO DAILY 04/17/24 Clonidine Hydrochloride (Clonidine Hcl) 0.1 Mg Tab, 1 TAB PO DAILY for blood pressure 04/17/24 Irbesartan (Avapro) 300 Mg Tab, 1 TAB PO DAILY, #30 TAB 5 Refills 03/04/24 Furosemide (Lasix) 40 Mg Tab, 40 MG PO DAILY, TAB 03/04/24 Amlodipine Besylate (NORVASC TABLET) 5 Mg Tb, 2 TAB PO DAILY, #30 TAB 5 Refills 03/04/24 Isosorbide Mononitrate (Isosorbide Mononitrate Er) 30 Mg Tab, 30 MG PO DAILY for CAD, MG 09/19/23 Insulin Glargine (Basaglar Kwikpen) 100 Unit/Ml Inj, 100 UNIT SC for DIABETES, INJ 09/19/23 Calcium Acetate (Phosphate Bin (Calcium Acetate) 667 Mg Cap, 667 MG PO TIDWM for DIALYSIS, MG 09/19/23 Sodium Zirconium Cyclosilicate (Lokelma) 5 Gm Hernandez, 5 GM PO DAILY for HYPERKALEMI A, PACK 09/19/23 Atorvastatin Calcium (ATORVASTATIN CALCIUM) 40 Mg Tab, 1 TAB PO DAILY for HIGH CHOLESTEROL, #30 TAB 5 Refills 09/19/23 Kyophvwlaq-Gbhwxgumkvwzjx-Rvvf (Breztri Aerosphere 160-9-4.8 Mcg/Act) 1 Aer Aer, 1 AER IN BID for COPD, AER 09/19/23 Albuterol Sulfate (Ventolin) 2.5 Mg/3 Ml Nb, 2.5 MG NEB Q4HP PRN for SHORTNESS OF BREATH, INH 09/19/23 Ranolazine (Ranolazine ER) 500 Mg Tab, 500 MG PO BID for CAD, TAB 09/19/23 Metoprolol Succinate (Metoprolol Succinate Er) 200 Mg Tab, 1 TAB PO DAILY for HTN 08/16/23 Diazepam (VALIUM TABLET) 5 Mg Tb, 5 MG GT PRN PRN for ANXIETY, TAB 08/14/23 Hydralazine Hcl (Hydralazine Hcl) 100 Mg Tab, 1 TAB PO TID, #90 TAB 5 Refills 08/14/23 Gabapentin (Gabapentin) 100 Mg Cap, 1 CAP PO TID, #90 CAP 2 Refills 08/14/23 Pantoprazole Sodium Sesquihydr (Protonix) 40 Mg Tab, 40 MG PO QAM, #30 TAB 08/14/23 Aspirin (Aspir-81) 81 Mg Tab, 1 TAB PO QAM, #30 TAB 5 Refills 08/14/23 Allopurinol (ZYLOPRIM TABLET) 100 Mg Tb, 1 TAB PO QAM, #30 TAB 5 Refills 08/14/23 Information Source: Patient Mode of Arrival: EMS Location: Right Extremity Location: Hip Timing: Hours Prehospital treatment: None Severity: Moderate Able to Move Extremity: Yes Bear Weight: Limited Pain: Moderate Mechanism: Spontaneous Circumstances: Spontaneous Onset of Symptoms: Spontaneous Symptoms: Pain DVT Risk Factors: NONE Past Medical History PAST MEDICAL HISTORY: CAD, CHF, COPD, ESRD, HTN, Seizures Surgical History: Appendectomy, CABG, Cholecystectomy, PTCA Family History Family History: Reviewed,noncontributory to illness, No family hx of Cancer, No family hx of DM, No family hx of Heart [place], No family hx of HTN, No family hx ofKidney [place], No family hx of Liver [place], No family hx of Lung [place], No family hx of Stroke Social History Smoker: Cigarettes, Greater Than 1 Pack/Day Alcohol: Occasionally Drugs: Denies Drug Use Lives In: Home Constitutional: denies: chills, diaphoresis, fatigue, fever, malaise, sweats, weakness, others EENTM: denies: blurred vision, double vision, ear bleeding, ear discharge, ear drainage, ear pain, ear ringing, eye pain, eye redness, hearing loss, mouth pain, mouth swelling, nasal discharge, nose bleeding, nose congestion, nose pain, photophobia, tearing, throat pain, throat swelling, voice changes, others Respiratory: denies: cough, hemoptysis, orthopnea, SOB at rest, shortness of breath, SOB with excertion, stridor, wheezing, others Cardiovascular: denies: chest pain, dizzy spells, diaphoresis, Dyspnea on exertion, edema, irregular heart beat, left arm pain, lightheadedness, palpitations, PND, syncope, others Gastrointestinal: denies: abdomen distended, abdominal pain, blood streaked bowels, constipated, diarrhea, dysphagia, difficulty swallowing, hematemesis, melena, nausea, poor appetite, poor fluid intake, rectal bleeding, rectal pain, vomiting, others Genitourinary: denies: burning, dysuria, flank pain, frequency, hematuria, incontinence, penile discharge, penile sore, pain, testicle pain, testicle swelling, urgency, others Neurological: denies: dizziness, fainting, headache, left sided numbness, left sided weakness, numbness, paresthesia, pre-existing deficit, right sided numbness, right sided weakness, seizure, speech problems, tingling, tremors, weakness, others Musculoskeletal: reports: others (Right hip pain); denies: back pain, gout, joint pain, joint swelling, muscle pain, muscle stiffness, neck pain Integumetry: denies: bruises, change in color, change in hair/nails, dryness, laceration, lesions, lumps, rash, wounds, others Allergic/Immunocompromised: denies: Difficulty Healing, Frequent Infections, Hives, Itching, others Hematologic/Lymphatic: denies: anemia, blood clots, easy bleeding, easy bruising, swollen glands, others Endocrine: denies: excessive hunger, excessive sweating, excessive thirst, excessive urination, flushing, intolerance to cold, intolerance to heat, unexplained weight gain, unexplained weight loss, others Psychiatric: denies: anxiety, bipolar disorder, depression, hopeless, panic disorder, schizophrenia, sleepless, suicidal, others All Other Systems: Reviewed and Negative Physical Exam General Appearance: No Apparent Distress, Normal HEENT: Normal ENT Inspection, Pharynx Normal, TMs Normal Neck: Full Range of Motion, Non-Tender, Normal, Normal Inspection Respiratory: Chest Non-Tender, Lungs Clear, No Accessory Muscle Use, No Respiratory Distress, Normal Breath Sounds Cardiovascular: No Edema, No JVD, No Murmur, No Gallop, Normal Peripheral Pulses, Regular Rate/Rhythm Breast Exam: Deferred Gastrointestinal: No Organomegaly, Non Tender, No Pulsatile Mass, Normal Bowel Sounds, Soft Genitalia: Deferred Pelvic: Deferred Rectal: Deferred Extremities: No calf tenderness, Normal capillary refill, Normal inspection, Normal range of motion, Non-tender, No pedal edema Musculoskeletal : Location: Right Extremity Location: Hip Apperance: Tenderness (Tenderness to right hip, no shortening.) Neurologic: Alert, supervisor stone II-XII nml as Tested, No Motor Deficits, Normal Affect, Normal Mood, No Sensory Deficits Cerebellar Function: Normal Reflexes: Normal Skin: Dry, Normal Color, Warm Lymphatic: No Adenopathy Was a procedure done? Was a procedure done?: No Differential Diagnosis EXT Differential Diagnosis: Deep Vein Thrombosis, Fracture, Sprain, Dislocation, Strain X-Ray, Labs, Meds, VS Vital Signs Date Time Temp Pulse Resp B/P (MAP) Pulse Ox O2 Delivery O2 Flow Rate FiO2 07/11/24 17:15 93 14 173/92 07/11/24 16:47 98.1 89 14 143/90 (107) 100 98.1 Lab Test 07/11/24 18:51 Range/Units White Blood Count 5.7 4.4-10.8 10^3/uL Red Blood Count 3.78 L 4.5-5.90 10^6/uL Hemoglobin 11.9 L 13.5-17.5 g/dL Hematocrit 35.1 L 41.0-53.0 % Mean Corpuscular Volume 92.9 80.0-100.0 fL Mean Corpuscular Hemoglobin 31.5 28.0-32.0 pg Mean Corpuscular Hemoglobin Concent 33.9 32.0-36.0 g/dL Red Cell Distribution Width 18.7 H 11.8-14.3 % Platelet Count 139 L 140-450 10^3/uL Mean Platelet Volume 7.0 6.9-10.8 fL Neutrophils (%) (Auto) 74.0 37.0-80.0 % Lymphocytes (%) (Auto) 12.6 10.0-50.0 % Monocytes (%) (Auto) 8.8 0.0-12.0 % Eosinophils (%) (Auto) 3.5 0.0-7.0 % Basophils (%) (Auto) 1.1 0.0-2.0 % Neutrophils # (Auto) 4.2 1.6-8.6 10 ^3/uL Lymphocytes # (Auto) 0.7 0.4-5.4 10 ^3/uL Monocytes # (Auto) 0.5 0-1.3 10 ^3/uL Eosinophils # (Auto) 0.2 0-0.8 10 ^3/uL Basophils # (Auto) 0.1 0-0.2 10 ^3/uL Nucleated Red Blood Cells 0.0 % Sodium Level 138 136-145 mmol/L Potassium Level 5.2 H 3.5-5.1 mmol/L Chloride Level 102 98-107 mmol/L Carbon Dioxide Level 27 20-31 mmol/L Anion Gap 9 5-15 Blood Urea Nitrogen 44 H 9-23 mg/dL Creatinine 6.03 H 0.700-1.30 mg/dL Glomerular Filtration Rate Calc 10 >90 mL/min BUN/Creatinine Ratio 7.3 L 10.0-20.0 Serum Glucose 164 H 74-106 mg/dL Calcium Level 9.7 8.7-10.4 mg/dL Total Bilirubin 0.3 0.2-1.0 mg/dL Aspartate Amino Transferase (AST) 10 L 13-40 U/L Alanine Aminotransferase (ALT) 10 7-40 U/L Alkaline Phosphatase 108 46-116 U/L Total Protein 6.6 5.7-8.2 g/dL Albumin 4.1 3.2-4.8 g/dL Current Medications Medications (Trade) Dose Ordered Sig/Gerard Route Start Time Stop Time Status Last Admin Ondansetron HCl (Zofran) 4 mg ONCE ONCE IV 07/11/24 17:15 07/11/24 17:16 DC 07/11/24 17:15 Morphine Sulfate 4 mg ONCE ONCE IV 07/11/24 17:15 07/11/24 17:16 DC 07/11/24 17:15 X-Ray, Labs, Meds, VS Comment Imaging: X-rays and CT scans were reviewed and interpreted by this provider, imaging shows no fractures and no pathological disease. Pending radiology review. Laboratory: Labs reviewed and interpreted by this provider. No significant abnormalities noted. Patient has prior medical visits reviewed. Med reconciliation performed Vital signs reviewed Upon speaking to patient patient states he had pseudo-seizure. Believes he was due to the intense pain in his leg. present at bedside states they have seen Neurology for his leg pain in the past. They were recommended to psychiatry Patient was states four morphine did nothing for the pain. He was still unable to walk. Patient will be admitted for pain control as he does not have significant help at home. And he was unable to bear weight. patient due for dialysis tomorrow, recommended dialysis consult Time of 1ST Reevaluation: 18:22 Reevaluation 1ST: Unchanged Patient Education/Counseling: Diagnosis, Treatment Family Education/Counseling: No Family Present Departure 1 Departure Time of Disposition: 22:16 Impression: Primary Impression: ESRD (end stage renal disease) Additional Impressions: Inability to walk Bilateral leg weakness Disposition: ADMITTED INPATIENT Condition: Stable Critical Care Note Critical Care Time?: No Stability Stability form required: No Heart Score Heart Score: Heart Score Response (Comments) Value History N/A 0 EKG N/A 0 Age N/A 0 Risk Factors N/A 0 Troponin N/A 0 Total 0 I personally scribed for CAL FELIX ([email or web address]) on 07/11/24 at 17:28. Electronically submitted by Farzad Méndez ([email or web address]). CAL FELIX July 11, 2024 17:28
--- NOTE | 2024-07-11 18:30 | DVH ---
XY R HIP COMPLETE XRAY, 07/11/2024 at 6:07 p.m. INDICATION: hip pain TECHNICAL DATA: Frontal and frog lateral views were obtained of the right hip.] COMPARISON: None FINDINGS: The right hip is normally located. The right hip joint is normally maintained with no marginal osteop hytes. No right hip fracture is identified. The right sacroiliac joint appears normal. There is ath erosclerotic changes of the right common femoral, superficial femoral and profunda femoris arteries IMPRESSION: 1. Normal radiographs of the right hip. 2. Atherosclerotic changes of the femoral vessels.
[2024-07-11] MEDS: levETIRAcetam 500 mg/100ml 100 ML IV ONE (18:45)
[2024-07-11 18:57] LABS: Basophils # (auto) 0.1 10 ^3/uL (0-0.2); Basophils % (auto) 1.1 % (0.0-2.0); Eosinophils # (auto) 0.2 10 ^3/uL (0-0.8); Eosinophils % (auto) 3.5 % (0.0-7.0); Hematocrit 35.1 % (41.0-53.0); Hemoglobin 11.9 g/dL (13.5-17.5); Lymphocytes # (auto) 0.7 10 ^3/uL (0.4-5.4); Lymphocytes % (auto) 12.6 % (10.0-50.0); Mean Corpuscular Hemoglobin 31.5 pg (28.0-32.0); Mean Corpuscular Hgb Conc. 33.9 g/dL (32.0-36.0); Mean Corpuscular Volume 92.9 fL (80.0-100.0); Monocytes # (auto) 0.5 10 ^3/uL (0-1.3); Monocytes % (auto) 8.8 % (0.0-12.0); Neutrophils # (auto) 4.2 10 ^3/uL (1.6-8.6); Platelet Count (auto) 139 10^3/uL (140-450); Red Blood Cells 3.78 10^6/uL (4.5-5.90); Red Cell Distribution Width 18.7 % (11.8-14.3); White Blood Cell 5.7 10^3/uL (4.4-10.8)
[2024-07-11 19:15] LABS: Alanine Aminotransferase 10 U/L (7-40); Albumin 4.1 g/dL (3.2-4.8); Alkaline Phosphatase 108 U/L (46-116); Anion Gap 9 (5-15); BUN/Creatinine Ratio 7.3 (10.0-20.0); Calcium 9.7 mg/dL (8.7-10.4); Carbon Dioxide 27 mmol/L (20-31); Chloride 102 mmol/L (98-107); Sodium 138 mmol/L (136-145); Total Protein 6.6 g/dL (5.7-8.2)
[2024-07-11 19:22] LABS: Aspartate Aminotransferase 10 U/L (13-40); Bilirubin, Total 0.3 mg/dL (0.2-1.0); Blood Urea Nitrogen 44 mg/dL (9-23); Glucose 164 mg/dL (74-106); Potassium 5.2 mmol/L (3.5-5.1)
[2024-07-11 20:10] VITALS: PULSE 94; RESP 13; O2SAT 97
[2024-07-11] MEDS: HYDROmorphone HCL 2 MG/ML VL/or syr IV ONE (22:46)
[2024-07-12] VITALS (12 sets, daily range): BP systolic 166–185; BP diastolic 81–88; PULSE 88–97; RESP 16–20; TEMP 97.2–98; O2SAT 90–98
[2024-07-12] MEDS ORDERED: ACETAMINOPHEN 325 MG TAB PO PRN (00:30)
--- NOTE | 2024-07-12 00:43 | DVHHP2 ---
History of Present Illness Reason for Visit: Generalized weakness History of Present Illness 59-year-old male presents for evaluation of generalized weakness. Patient reports having chronic pain to bilateral lower extremities. He states today pain was excruciating to his right hip he was unable to ambulate. Denies any falls or trauma to the area. Patient is also dialysis dependent and should be getting dialyzed today. Denies chest pain or shortness for breath. No headache or blurred vision. No other acute complaints. Past Medical History End-stage renal disease, CHF, COPD, hypertension, seizures, CAD Past Surgical History Dialysis access Family History Noncontributory Smoke: <1 pack per day ALCOHOL: occassional Drugs: None Lives: with Family Review of Systems Review of Systems Review of systems are currently negative otherwise addressed in HPI. Allergies: Coded Allergies: Penicillins (Verified Allergy, Unknown, 09/19/23) Tetanus Toxoid (Verified Allergy, Unknown, 09/19/23) Exam Vital Signs Vital Signs Date Time Temp Pulse Resp B/P (MAP) Pulse Ox O2 Delivery O2 Flow Rate FiO2 07/12/24 00:21 91 16 172/61 07/11/24 16:47 98.1 100 98.1 Exam Gen: 59-year-old male in mild distress. Skin: Warm, dry, normal color and texture, no rash. HEENT: Normocephalic atraumatic, mucous membranes moist and pink. Neck: Cervical and supraclavicular nodes normal without enlargement, trachea is midline, thyroid gland is normal without masses. Pulmonary: Clear to auscultation and percussion bilaterally. Cardiac: Regular rate and rhythm. No murmur Abdomen: Soft, nontender, nondistended, bowel sounds present all 4 quadrants, no guarding, no rigidity, no organomegaly. Extremities: No cyanosis, clubbing, no edema Neuro: Cranial nerves II through XII grossly intact, normal affect and speech, no focal motor deficits. Labs/Xrays ORDERING PHYSICIAN: CAL FELIX PROCEDURE(s): RHIP - R HIP COMPLETE XRAY REASON: hip pain ORDER NUMBER(s): [id number], ACCESSION NUMBER(s): [id number] XY R HIP COMPLETE XRAY, 07/11/2024 at 6:07 p.m. INDICATION: hip pain TECHNICAL DATA: Frontal and frog lateral views were obtained of the right hip.] COMPARISON: None FINDINGS: The right hip is normally located. The right hip joint is normally maintained with no marginal osteophytes. No right hip fracture is identified. The right sacroiliac joint appears normal. There is atherosclerotic changes of the right common femoral, superficial femoral and profunda femoris arteries IMPRESSION: 1. Normal radiographs of the right hip. 2. Atherosclerotic changes of the femoral vessels. Labs Test 07/11/24 18:51 Range/Units White Blood Count 5.7 4.4-10.8 10^3/uL Red Blood Count 3.78 L 4.5-5.90 10^6/uL Hemoglobin 11.9 L 13.5-17.5 g/dL Hematocrit 35.1 L 41.0-53.0 % Mean Corpuscular Volume 92.9 80.0-100.0 fL Mean Corpuscular Hemoglobin 31.5 28.0-32.0 pg Mean Corpuscular Hemoglobin Concent 33.9 32.0-36.0 g/dL Red Cell Distribution Width 18.7 H 11.8-14.3 % Platelet Count 139 L 140-450 10^3/uL Mean Platelet Volume 7.0 6.9-10.8 fL Neutrophils (%) (Auto) 74.0 37.0-80.0 % Lymphocytes (%) (Auto) 12.6 10.0-50.0 % Monocytes (%) (Auto) 8.8 0.0-12.0 % Eosinophils (%) (Auto) 3.5 0.0-7.0 % Basophils (%) (Auto) 1.1 0.0-2.0 % Neutrophils # (Auto) 4.2 1.6-8.6 10 ^3/uL Lymphocytes # (Auto) 0.7 0.4-5.4 10 ^3/uL Monocytes # (Auto) 0.5 0-1.3 10 ^3/uL Eosinophils # (Auto) 0.2 0-0.8 10 ^3/uL Basophils # (Auto) 0.1 0-0.2 10 ^3/uL Nucleated Red Blood Cells 0.0 % Sodium Level 138 136-145 mmol/L Potassium Level 5.2 H 3.5-5.1 mmol/L Chloride Level 102 98-107 mmol/L Carbon Dioxide Level 27 20-31 mmol/L Anion Gap 9 5-15 Blood Urea Nitrogen 44 H 9-23 mg/dL Creatinine 6.03 H 0.700-1.30 mg/dL Glomerular Filtration Rate Calc 10 >90 mL/min BUN/Creatinine Ratio 7.3 L 10.0-20.0 Serum Glucose 164 H 74-106 mg/dL Calcium Level 9.7 8.7-10.4 mg/dL Total Bilirubin 0.3 0.2-1.0 mg/dL Aspartate Amino Transferase (AST) 10 L 13-40 U/L Alanine Aminotransferase (ALT) 10 7-40 U/L Alkaline Phosphatase 108 46-116 U/L Total Protein 6.6 5.7-8.2 g/dL Albumin 4.1 3.2-4.8 g/dL Assessment/Plan Assessment/Plan Assessment End-stage renal disease, dialysis dependent Chronic pain syndrome Accelerated hypertension Plan Admit the patient to [facility] to the hospitalist Nephrology consultation Pain management Resume home medications Continue treatment per orders Plan discussed with: Patient My Orders Orders - MARY DELEON AGACNP Procedure Category Date Status Time Admit ADMIT 07/11/24 Transmitted 23:42 Albuterol Medneb PHA 07/12/24 Logged (Ventolin Medneb) 00:30 Amlodipine Tablet PHA 07/12/24 Transmitted (Norvasc Tablet) 10:00 Aspirin Tablet PHA 07/12/24 Transmitted 10:00 Atorvastatin (Lipitor) PHA 07/12/24 Transmitted 22:00 Calcium Acetate PHA 07/12/24 Transmitted Capsule (Phoslo 08:00 Clopidogrel Bisulfate PHA 07/12/24 Transmitted (Plavix) 10:00 Furosemide Tablet PHA 07/12/24 Transmitted (Lasix Tablet) 10:00 Gabapentin Capsule PHA 07/12/24 Transmitted (Neurontin Capsule) 06:00 Hydralazine Hcl PHA 07/12/24 Transmitted Tablet (Apresoline 06:00 Isosorbide PHA 07/12/24 Transmitted Mononitrate Tablet 10:00 Ranolazine (Ranexa Er) PHA 07/12/24 Transmitted 10:00 Metoprolol Xl PHA 07/12/24 Logged Succinate (Toprol Xl) 10:00 *Dr. Rochelle Finnegan -Da CONS 07/12/24 Transmitted Maty 00:30 Basic Metabolic Panel LAB 07/13/24 Verified 04:00 Renal DIET 07/12/24 Transmitted Standard(2gna,3gk,Lopho) Breakfast Hydrocodone-Acet PHA 07/12/24 Logged 5/325mg Tab ([place] 00:30 Temazepam (Restoril) PHA 07/12/24 Logged 00:30 Ondansetron Hcl PHA 07/12/24 Logged (Zofran) 00:30 Condition: Stable SEAN 07/12/24 In Process 00:30 Acetaminophen Tablet PHA 07/12/24 Logged (Tylenol Tablet) 00:30 Bedrest With Bathroom SEAN 07/12/24 In Process Privileg 00:30 Morphine Sulfate PHA 07/12/24 Logged Injection 00:30 Clonidine Hcl Tablet PHA 07/12/24 Verified (Catapres Tablet) 00:45 Date of Service: July 11, 2024 Billing Provider: MARY DELEON Common Visit Codes: [id number] INP/OBS CARE (MOD) MARY DELEON July 12, 2024 00:43
[2024-07-12 00:48] LABS: Urine Bacteria None Seen /hpf (None Seen)
[2024-07-12 01:01] LABS: Urine Blood Negative /uL (Negative); Urine Clarity Clear (Clear); Urine Color Light-Yellow (Yellow); Urine Protein, UAD 3+ (Negative); Urine Squamous Epithelial Cell FEW /hpf (<5); Urine Urobilinogen Normal (Negative); Urine WBC 1 /HPF (0-3); Urine pH 8.5 (5.0-9.0)
[2024-07-12] MEDS: ALBUTEROL SULF 2.5 MG/0.5ML(0.5%) NEB SOLN NEB PRN (01:15)
[2024-07-12] MEDS ORDERED: IPRA0.00 IN (05:09)
[2024-07-12] MEDS ORDERED: LOSA100T14 PO (05:22)
[2024-07-12] MEDS ORDERED: COLC1CAP3 PO (05:22)
[2024-07-12] MEDS ORDERED: ALBUAER3 IN (05:22)
[2024-07-12] MEDS ORDERED: PATI1POW PO (05:23)
[2024-07-12] MEDS: GABAPENTIN 100 MG CAP PO SCH (05:32)
[2024-07-12] MEDS: hydrALAZINE HCL 25 MG TAB PO SCH (05:32)
[2024-07-12] MEDS: MORPHINE SULFATE INJ 2 MG/ml SYRG IV PRN (06:06)
[2024-07-12] MEDS: CALCIUM ACETATE 667 MG CAP PO SCH (08:10)
[2024-07-12] MEDS: HYDROcodone-ACET 5/325MG TAB PO PRN (08:11)
[2024-07-12] MEDS: LORazepam 2MG/ML-1ML VIAL IV ONE (08:58)
--- NOTE | 2024-07-12 12:39 | DVHPN2 ---
Reviewed: Care Plan Changes from previous H/P or p: No Changes Objective Vitals Vital Signs Date Time Temp Pulse Resp B/P (MAP) Pulse Ox O2 Delivery O2 Flow Rate FiO2 07/12/24 09:00 97.6 97 16 167/82 (110) 90 97.6 07/12/24 06:10 Nasal Cannula* 3 32 Intake/Output Intake and Output 07/12/24 07:00 Intake Total 100 ml Balance 100 ml Intake Oral 100 ml Medications Current Medications Medications Dose Ordered Sig/Gerard Route Start Time Stop Time Status Last Admin Dose Admin Albuterol 2.5 mg Q6HPRN PRN NEB 07/12/24 00:30 07/12/24 01:15 2.5 MG Amlodipine Besylate 10 mg DAILY PO 07/12/24 10:00 Aspirin 81 mg DAILY PO 07/12/24 10:00 Atorvastatin Calcium 40 mg HS PO 07/12/24 22:00 Calcium Acetate 667 mg TIDWMEALS PO 07/12/24 08:00 07/12/24 08:10 667 MG Clopidogrel Bisulfate 75 mg DAILY PO 07/12/24 10:00 Furosemide 40 mg DAILY PO 07/12/24 10:00 Gabapentin 100 mg TID PO 07/12/24 06:00 07/12/24 05:32 100 MG Hydralazine HCl 50 mg Q8HR PO 07/12/24 06:00 07/12/24 05:32 50 MG Isosorbide Mononitrate 30 mg DAILY PO 07/12/24 10:00 Ranolazine 500 mg BID PO 07/12/24 10:00 Metoprolol Succinate 100 mg DAILY PO 07/12/24 10:00 Acetaminophen/ Hydrocodone Bitart 1 tab Q4HP PRN PO 07/12/24 00:30 07/12/24 08:11 1 TAB Temazepam 15 mg QHSP PRN PO 07/12/24 00:30 Ondansetron HCl 4 mg Q4HP PRN IV 07/12/24 00:30 Acetaminophen 650 mg Q6HP PRN PO 07/12/24 00:30 Morphine Sulfate 2 mg Q4HPRN PRN IV 07/12/24 00:30 07/12/24 06:06 2 MG Clonidine HCl 0.1 mg Q6HP PRN PO 07/12/24 00:45 Laboratory Results Laboratory Tests 07/11/24 18:51 Chemistry Test 07/11/24 18:51 Albumin 4.1 g/dL (3.2-4.8) Calcium Level 9.7 mg/dL (8.7-10.4) Total Protein 6.6 g/dL (5.7-8.2) LFT Test 07/11/24 18:51 Alanine Aminotransferase (ALT) 10 U/L (7-40) Alkaline Phosphatase 108 U/L (46-116) Aspartate Amino Transferase (AST) 10 U/L (13-40) L Total Bilirubin 0.3 mg/dL (0.2-1.0) Urinalysis Test 07/12/24 00:45 Urine Color Light-yellow (Yellow) Urine Clarity Clear (Clear) Urine pH 8.5 (5.0-9.0) Urine Specific [place] 1.010 (1.001-1.035) Urine Protein 3+ (Negative) H Urine Ketones Negative (Negative) Urine Blood Negative /uL (Negative) Urine Nitrite Negative (Negative) Urine Bilirubin Negative (Negative) Urine Urobilinogen Normal mg/dL (Negative) Urine Leukocyte Esterase Negative /uL (Negative) Urine RBC 1 /hpf (0 - 3) Urine Microscopic WBC 1 /HPF (0-3) Urine Squamous Epithelial Cells Few /hpf (<5) Urine Bacteria None seen /hpf (None Seen) Urine Glucose 3+ mg/dL (Normal) H Labs and/or images reviewed: Labs reviewed by me, Image(s) reviewed by me Assessment/Plan Assessment/Plan End-stage renal disease, dialysis dependent consult for Dr. Byrd Chronic pain syndrome Right hip pain: Hip x-ray negative Chronic back pain: CT LS spine ordered Accelerated hypertension Acute generalized Weakness Anemia of chronic disease Coronary artery disease status post stents x3 Plavix Acute on chronic CHF exacerbation ejection fraction 35 percent Diabetes History of seizures on gabapentin Hypertension Hyperlipidemia Obesity Chronic current smoker Time spent 70 minutes Advanced care planning time 20 minutes Patient is full code Previous hospital stay 04/15/24 to 05-02-24 Plan discussed with: Patient Date of Service: July 12, 2024 Billing Provider: SHARMIN AN MD Common Visit Codes: [id number] CARE 30-74 MIN SHARMIN AN MD July 12, 2024 12:39
[2024-07-12] MEDS: ASPirin 81 mg TAB PO SCH (14:04)
[2024-07-12] MEDS: ISOSORBIDE MONONITRATE ER 60 MG TAB PO SCH (14:04)
[2024-07-12] MEDS: RANOLAZINE ER 500 MG TAB PO SCH (14:05)
[2024-07-12] MEDS: FUROSEMIDE 40 MG TAB PO SCH (14:05)
[2024-07-12] MEDS: CLOPIDOGREL BISULFATE 75 MG TAB PO SCH (14:05)
[2024-07-12] MEDS: amLODIPine BESYLATE 5 MG TAB PO SCH (14:05)
[2024-07-12] MEDS ORDERED: OXYCODONE W/ ACETAMINOPHEN 5/325MG TABLET PO PRN (14:15)
[2024-07-12] MEDS: METOPROLOL SUCCINATE XL 50 MG TAB PO SCH (15:26)
--- NOTE | 2024-07-12 15:31 | DVH ---
Indication: Exacerbation of chronic back pain Technique: CT axial images of the lumbar spine are obtained without contrast. Coronal and sagittal re formats were obtained. Radiation Dose Information: CTDI volume is 28.54 mGy. Dose-length product is 980.07 mGy*cm Comparison: 04/20/2024 FINDINGS: Limited evaluation without contrast. Interval increased erosive and distal changes at the L4-5 disc space/endplate and normal. Increased l oss of the L4 vertebral body height with approximately 30% loss of the height. There are surrounding perivertebral edematous /inflammatory changes. There is compression of the thecal sac at this level w hich is suboptimally characterized. The L1, L2 and L3 vertebral body heights are maintained. L5 pars defects. 3 mm anterolisthesis of L5 on S1. Moderate disc space narrowing at T12-L1, L1-2, L2-3, L3-4. Bilateral pleural effusions. Atherosclerotic disease. Colonic diverticular disease. Trace free pel dori fluid.. IMPRESSION: 1. Interval progression of discitis osteomyelitis at L4-5 with increased endplate destructive changes and increased loss of the L4 vertebral body height. There is associated compression of the thecal s ac at this level. Paravertebral edematous/infectious / inflammatory changes are present. 2. Recommend obtaining MRI lumbar spine with and without contrast to evaluate for epidural abscess an d perivertebral abscess/ infectious changes, as well as to evaluate the degree of thecal sac compress ion /spinal canal stenosis.
[2024-07-12] MEDS: OXYCODONE W/ ACETAMINOPHEN 5/325MG TABLET PO PRN (16:44)
--- NOTE | 2024-07-12 17:10 | DVHINCON2 ---
Date of service: July 12, [address] Morataya Reason for Consultation End-stage renal disease management. History of Present Illness 59-year-old patient with significant history of end-stage renal disease on hemodialysis Tuesdays and Saturdays with last dialysis on Tuesday, hypertension, COPD, CAD, hyperlipidemia, chronic pain syndrome, Who presents with a history of worsening of chronic back pain associated with lower extremity weakness. The pain is about 10/10 when it happened radiated to the right lower leg and is excruciating despite his narcotics, muscle relaxants and neuropathic neuropathic pain. He denies chest pain or shortness of breath fevers or chills. Laboratory data revealed findings consistent with end-stage renal disease values. CT lumbar spine: 1. Interval progression of discitis osteomyelitis at L4-5 with increased endplate destructive changes and increased loss of the L4 vertebral body height. There is associated compression of the thecal sac at this level. Paravertebral edematous/infectious / inflammatory changes are present. 2. Recommend obtaining MRI lumbar spine with and without contrast to evaluate for epidural abscess and perivertebral abscess/ infectious changes, as well as to evaluate the degree of thecal sac compression /spinal canal stenosis. Past Medical History End-stage renal disease, hyperlipidemia, hypertension, osteomyelitis of the spine, CAD status post multiple stents. Past Surgical History Av fistula creation. Allergies: Coded Allergies: Penicillins (Verified Allergy, Unknown, 09/19/23) Tetanus Toxoid (Verified Allergy, Unknown, 09/19/23) Home Meds Active Scripts Clopidogrel Bisulfate (CLOPIDOGREL) 75 Mg Tab, 75 MG PO DAILY for 30 Days, #30 TAB Prov:LEÓN COLLINS MD 08/16/23 Reported Medications Patiromer Sorbitex Calcium (Veltassa) 8.4 Gm Pow, 1 PKT PO DAILY 07/12/24 Colchicine (Mitigare) 0.6 Mg Cap, 0.6 MG PO PRN for for gout, CAP 07/12/24 Albuterol Sulfate (VENTOLIN MDI) 90 Mcg Ih, 2 PUFF IN Q6HPRN PRN for wheezing, INH 07/12/24 Losartan Potassium (Cozaar) 100 Mg Tab, 300 MG PO DAILY, TAB 07/12/24 Ipratropium-Albuterol (Ipratropium [place]/Albut) 1 Jacob Jacob, 1 JACOB IN QIDPRN PRN for SHORTNESS OF BREATH, ML 07/12/24 Colchicine (Colchicine) Pow, 0.6 MG PO Q12HR for 30 Days, MG 04/17/24 Clonidine Hydrochloride (Clonidine Hcl) 0.1 Mg Tab, 1 TAB PO PRN for SBP>160 04/17/24 Furosemide (Lasix) 40 Mg Tab, 40 MG PO DAILY, TAB 03/04/24 Amlodipine Besylate (NORVASC TABLET) 5 Mg Tb, 2 TAB PO DAILY, #30 TAB 5 Refills 03/04/24 Isosorbide Mononitrate (Isosorbide Mononitrate Er) 30 Mg Tab, 60 MG PO DAILY for CAD 09/19/23 Calcium Acetate (Phosphate Bin (Calcium Acetate) 667 Mg Cap, 667 MG PO TIDWM for DIALYSIS, MG 09/19/23 Atorvastatin Calcium (ATORVASTATIN CALCIUM) 40 Mg Tab, 1 TAB PO DAILY for HIGH CHOLESTEROL, #30 TAB 5 Refills 09/19/23 Fydhhjzhyd-Xxaamgatxmshfh-Mwzv ([facility] Aerosphere 160-9-4.8 Mcg/Act) 1 Aer Aer, 1 AER IN BID for COPD, AER 09/19/23 Albuterol Sulfate (Ventolin) 2.5 Mg/3 Ml Nb, 2.5 MG NEB Q4HP PRN for SHORTNESS OF BREATH, INH 09/19/23 Ranolazine (Ranolazine ER) 500 Mg Tab, 500 MG PO BID for CAD, TAB 09/19/23 Diazepam (VALIUM TABLET) 5 Mg Tb, 2 TAB PO PRN PRN for onset seizure, TAB 08/14/23 Hydralazine Hcl (Hydralazine Hcl) 100 Mg Tab, 1 TAB PO TID, #90 TAB 5 Refills 08/14/23 Gabapentin (Gabapentin) 100 Mg Cap, 2 CAP PO TID PRN for onset seizure , #90 CAP 2 Refills Take with diazepam. 08/14/23 Pantoprazole Sodium Sesquihydr (Protonix) 40 Mg Tab, 40 MG PO QAM, #30 TAB 08/14/23 Aspirin (Aspir-81) 81 Mg Tab, 1 TAB PO QAM, #30 TAB 5 Refills 08/14/23 Allopurinol (ZYLOPRIM TABLET) 100 Mg Tb, 1 TAB PO QAM, #30 TAB 5 Refills 08/14/23 Current Medications Current Medications Medications (Trade) Dose Ordered Sig/Gerard Route PRN Reason Start Time Stop Time Status Last Admin Albuterol (Ventolin Medneb) 2.5 mg Q6HPRN PRN NEB SHORTNESS OF BREATH 07/12/24 00:30 07/12/24 01:15 Amlodipine Besylate (Norvasc Tablet) 10 mg DAILY PO 07/12/24 10:00 07/12/24 14:05 Aspirin 81 mg DAILY PO 07/12/24 10:00 07/12/24 14:04 Atorvastatin Calcium (Lipitor) 40 mg HS PO 07/12/24 22:00 Calcium Acetate (Phoslo Capsule) 667 mg TIDWMEALS PO 07/12/24 08:00 07/12/24 14:05 Clopidogrel Bisulfate (Plavix) 75 mg DAILY PO 07/12/24 10:00 07/12/24 14:05 Furosemide (Lasix Tablet) 40 mg DAILY PO 07/12/24 10:00 07/12/24 14:05 Gabapentin (Neurontin Capsule) 100 mg TID PO 07/12/24 06:00 07/12/24 14:06 Hydralazine HCl (Apresoline Tablet) 50 mg Q8HR PO 07/12/24 06:00 07/12/24 15:26 Isosorbide Mononitrate (Imdur Er Tablet) 30 mg DAILY PO 07/12/24 10:00 07/12/24 14:04 Ranolazine (Ranexa ER) 500 mg BID PO 07/12/24 10:00 07/12/24 14:05 Metoprolol Succinate (Toprol Xl) 100 mg DAILY PO 07/12/24 10:00 07/12/24 15:26 Acetaminophen/ Hydrocodone Bitart ([place] 5/325MG Tab) 1 tab Q4HP PRN PO MODERATE PAIN (4-6 PAIN SCALE) 07/12/24 00:30 07/12/24 14:07 DC 07/12/24 08:11 Temazepam (Restoril) 15 mg QHSP PRN PO FOR INSOMNIA 07/12/24 00:30 Ondansetron HCl (Zofran) 4 mg Q4HP PRN IV NAUSEA / VOMITING 07/12/24 00:30 Acetaminophen (Tylenol Tablet) 650 mg Q6HP PRN PO PAIN SCALE 1-3 OR TEMP>100.4 07/12/24 00:30 Morphine Sulfate 2 mg Q4HPRN PRN IV SEVERE PAIN (7-10 PAIN SCALE) 07/12/24 00:30 07/12/24 15:27 Clonidine HCl (Catapres Tablet) 0.1 mg Q6HP PRN PO SBP>160 07/12/24 00:45 Lorazepam (Ativan Inj) 1 mg Q5MINP PRN IV SEIZURES 07/12/24 13:00 Oxycodone/ Acetaminophen (Percocet 5/ 325MG Tablet) 1 tab Q4HP PRN PO SEVERE PAIN (7-10 PAIN SCALE) 07/12/24 14:15 07/12/24 14:54 DC Oxycodone/ Acetaminophen (Percocet 5/ 325MG Tablet) 1 tab Q6HP PRN PO MODERATE PAIN (4-6 PAIN SCALE) 07/12/24 16:30 07/12/24 16:44 Family History: Diabetes mellitus G8 MOTHER, Onset:Unknown G8 FATHER, Onset:Unknown Fibromyalgia G8 MOTHER Hypertension G8 MOTHER G8 FATHER, Onset:Unknown Family History Hypertension in the father Social History He denies smoking alcohol or drug abuse. Review of Systems HEENT: Oral mucosa dry Neck no JVD Cardiovascular: Denies for chest pain denies orthopnea or PND Respiratory: Denies cough or shortness of breath Gastrointestinal: Denies for nausea vomiting Musculoskeletal: Positive for low back pain Neurological: Positive for leg weakness Dermatological: Denies any rash The rest of the review of systems were reviewed pertinent positives and pertinent negatives are as per HPI up to 12 points review of systems H&P Exam Vital Signs/I&O Vital Sign Date Time Temp Pulse Resp B/P (MAP) Pulse Ox O2 Delivery O2 Flow Rate FiO2 07/12/24 17:00 97.2 96 16 181/81 (114) 91 97.2 07/12/24 11:50 Nasal Cannula 3.0 07/12/24 11:50 32 Intake and Output 07/11/24 07/12/24 19:00 07:00 Intake Total 100 ml Balance 100 ml Intake Oral 100 ml Physical Exam HEENT: No evidence of JVD, no oral ulcers. Pulmonary: Lungs are clear on auscultation bilaterally Cardiovascular S1-S2, no S3 or S4 Abdomen: Bowel sounds positive, soft no rebound tenderness Skin: No rash Neurological: Alert, oriented, no focal weakness Leg weakness Access: Left upper arm AV fistula positive bruit and thrill Labs/Diagnostic Data Labs/Diagnostic Data Laboratory Tests Test 07/12/24 00:45 07/11/24 18:51 Range/Units Urine Color Light-yellow Yellow Urine Clarity Clear Clear Urine pH 8.5 5.0-9.0 Urine Specific [place] 1.010 1.001-1.035 Urine Protein 3+ H Negative Urine Ketones Negative Negative Urine Blood Negative Negative /uL Urine Nitrite Negative Negative Urine Bilirubin Negative Negative Urine Urobilinogen Normal Negative mg/dL Urine Leukocyte Esterase Negative Negative /uL Urine RBC 1 0 - 3 /hpf Urine Microscopic WBC 1 0-3 /HPF Urine Squamous Epithelial Cells Few <5 /hpf Urine Bacteria None seen None Seen /hpf Urine Glucose 3+ H Normal mg/dL White Blood Count 5.7 4.4-10.8 10^3/uL Red Blood Count 3.78 L 4.5-5.90 10^6/uL Hemoglobin 11.9 L 13.5-17.5 g/dL Hematocrit 35.1 L 41.0-53.0 % Mean Corpuscular Volume 92.9 80.0-100.0 fL Mean Corpuscular Hemoglobin 31.5 28.0-32.0 pg Mean Corpuscular Hemoglobin Concent 33.9 32.0-36.0 g/dL Red Cell Distribution Width 18.7 H 11.8-14.3 % Platelet Count 139 L 140-450 10^3/uL Mean Platelet Volume 7.0 6.9-10.8 fL Neutrophils (%) (Auto) 74.0 37.0-80.0 % Lymphocytes (%) (Auto) 12.6 10.0-50.0 % Monocytes (%) (Auto) 8.8 0.0-12.0 % Eosinophils (%) (Auto) 3.5 0.0-7.0 % Basophils (%) (Auto) 1.1 0.0-2.0 % Neutrophils # (Auto) 4.2 1.6-8.6 10 ^3/uL Lymphocytes # (Auto) 0.7 0.4-5.4 10 ^3/uL Monocytes # (Auto) 0.5 0-1.3 10 ^3/uL Eosinophils # (Auto) 0.2 0-0.8 10 ^3/uL Basophils # (Auto) 0.1 0-0.2 10 ^3/uL Nucleated Red Blood Cells 0.0 % Sodium Level 138 136-145 mmol/L Potassium Level 5.2 H 3.5-5.1 mmol/L Chloride Level 102 98-107 mmol/L Carbon Dioxide Level 27 20-31 mmol/L Anion Gap 9 5-15 Blood Urea Nitrogen 44 H 9-23 mg/dL Creatinine 6.03 H 0.700-1.30 mg/dL Glomerular Filtration Rate Calc 10 >90 mL/min BUN/Creatinine Ratio 7.3 L 10.0-20.0 Serum Glucose 164 H 74-106 mg/dL Calcium Level 9.7 8.7-10.4 mg/dL Total Bilirubin 0.3 0.2-1.0 mg/dL Aspartate Amino Transferase (AST) 10 L 13-40 U/L Alanine Aminotransferase (ALT) 10 7-40 U/L Alkaline Phosphatase 108 46-116 U/L Total Protein 6.6 5.7-8.2 g/dL Albumin 4.1 3.2-4.8 g/dL Microbiology Date/Time Source Procedure Growth Status 07/12/24 06:10 Nose MRSA Screen - Final Complete CT scan shows osteomyelitis of the lumbar spine with progression Assessment Assessment: 1. End-stage renal disease on hemodialysis TTS via AV fistula. 2. Intractable low back pain. 3. Diskitis/osteomyelitis of the L4-L5 4. Hypertension uncontrolled 5. Hyperkalemia managed with dialysis. 6. Anemia of end-stage renal disease. 7. CAD. 8. Chronic pain syndrome. Plan slight recommendations: Dialysis today, aim for 3-4 L UF and TTS. Analgesia. Continue phosphate binders IV antibiotics, infectious disease consultation. Consider MRI of the back if possible. Kody as needed for goal hemoglobin 10 to 11 grams/deciliter. Fluid restriction less than 1 L per day. Neuropathy. Thank you very much for allowing us to participate in the care of this patient. Plan discussed with: Patient TOMÁS RODARTE MD July 12, 2024 17:09
[2024-07-12] MEDS: TEMAZEPAM 15 MG CAP PO PRN (22:28)
[2024-07-12] MEDS: ATORVASTATIN 20 MG TAB PO SCH (22:28)
[2024-07-13] VITALS (10 sets, daily range): BP systolic 155–174; BP diastolic 67–92; PULSE 69–82; RESP 17–20; TEMP 97.7–98.2; O2SAT 92–100
[2024-07-13] MEDS: cloNIDine HCL 0.1 MG TAB PO PRN (03:50)
[2024-07-13 07:29] LABS: Anion Gap 10 (5-15); Carbon Dioxide 29 mmol/L (20-31); Sodium 136 mmol/L (136-145)
[2024-07-13 07:30] LABS: Calcium 10.2 mg/dL (8.7-10.4)
[2024-07-13 07:33] LABS: Chloride 97 mmol/L (98-107); Potassium 5.2 mmol/L (3.5-5.1)
[2024-07-13 07:34] LABS: % Iron Saturation 27.6 % (20-55)
[2024-07-13 07:35] LABS: BUN/Creatinine Ratio 5.6 (10.0-20.0); Blood Urea Nitrogen 28 mg/dL (9-23); Glucose 112 mg/dL (74-106)
[2024-07-13 07:37] LABS: Phosphorus 4.5 mg/dL (2.4-5.1)
--- NOTE | 2024-07-13 11:06 | DVHPN2 ---
Reviewed: Care Plan Changes from previous H/P or p: No Changes Objective Vitals Vital Signs Date Time Temp Pulse Resp B/P (MAP) Pulse Ox O2 Delivery O2 Flow Rate FiO2 07/13/24 09:21 82 20 164/82 07/13/24 09:17 98 07/13/24 09:17 Nasal Cannula 3.0 07/13/24 09:17 32 07/13/24 08:59 98.2 98.2 Intake/Output Intake and Output 07/13/24 06:59 Intake Total 1300 ml Output Total 600 ml Balance 700 ml Intake Oral 1300 ml Output Urine Total 600 ml Medications Current Medications Medications Dose Ordered Sig/Gerard Route Start Time Stop Time Status Last Admin Dose Admin Albuterol 2.5 mg Q6HPRN PRN NEB 07/12/24 00:30 07/13/24 09:17 2.5 MG Amlodipine Besylate 10 mg DAILY PO 07/12/24 10:00 07/13/24 09:20 10 MG Aspirin 81 mg DAILY PO 07/12/24 10:00 07/13/24 09:19 81 MG Atorvastatin Calcium 40 mg HS PO 07/12/24 22:00 07/12/24 22:28 40 MG Calcium Acetate 667 mg TIDWMEALS PO 07/12/24 08:00 07/13/24 09:17 667 MG Clopidogrel Bisulfate 75 mg DAILY PO 07/12/24 10:00 07/13/24 09:19 75 MG Furosemide 40 mg DAILY PO 07/12/24 10:00 07/13/24 09:18 40 MG Gabapentin 100 mg TID PO 07/12/24 06:00 07/13/24 05:40 100 MG Hydralazine HCl 50 mg Q8HR PO 07/12/24 06:00 07/13/24 05:40 50 MG Isosorbide Mononitrate 30 mg DAILY PO 07/12/24 10:00 07/13/24 09:18 30 MG Ranolazine 500 mg BID PO 07/12/24 10:00 07/13/24 09:17 500 MG Metoprolol Succinate 100 mg DAILY PO 07/12/24 10:00 07/13/24 09:19 100 MG Temazepam 15 mg QHSP PRN PO 07/12/24 00:30 07/12/24 22:28 15 MG Ondansetron HCl 4 mg Q4HP PRN IV 07/12/24 00:30 Acetaminophen 650 mg Q6HP PRN PO 07/12/24 00:30 Morphine Sulfate 2 mg Q4HPRN PRN IV 07/12/24 00:30 07/13/24 09:21 2 MG Clonidine HCl 0.1 mg Q6HP PRN PO 07/12/24 00:45 07/13/24 03:50 0.1 MG Lorazepam 1 mg Q5MINP PRN IV 07/12/24 13:00 Oxycodone/ Acetaminophen 1 tab Q6HP PRN PO 07/12/24 16:30 07/13/24 05:43 1 TAB Laboratory Results Laboratory Tests 07/11/24 18:51 07/13/24 06:22 Chemistry Test 07/13/24 06:22 Calcium Level 10.2 mg/dL (8.7-10.4) Phosphorus Level 4.5 mg/dL (2.4-5.1) Urinalysis Test 07/12/24 00:45 Urine Color Light-yellow (Yellow) Urine Clarity Clear (Clear) Urine pH 8.5 (5.0-9.0) Urine Specific [place] 1.010 (1.001-1.035) Urine Protein 3+ (Negative) H Urine Ketones Negative (Negative) Urine Blood Negative /uL (Negative) Urine Nitrite Negative (Negative) Urine Bilirubin Negative (Negative) Urine Urobilinogen Normal mg/dL (Negative) Urine Leukocyte Esterase Negative /uL (Negative) Urine RBC 1 /hpf (0 - 3) Urine Microscopic WBC 1 /HPF (0-3) Urine Squamous Epithelial Cells Few /hpf (<5) Urine Bacteria None seen /hpf (None Seen) Urine Glucose 3+ mg/dL (Normal) H Microbiology Microbiology Date/Time Source Procedure Growth Status 07/12/24 06:10 Nose MRSA Screen - Final Complete Labs and/or images reviewed: Labs reviewed by me, Image(s) reviewed by me Assessment/Plan Assessment/Plan End-stage renal disease, dialysis dependent consult for Dr. Byrd appreciated Chronic pain syndrome Right hip pain: Hip x-ray negative Chronic back pain: CT LS spine ordered Accelerated hypertension Acute generalized Weakness Anemia of chronic disease Coronary artery disease status post stents x3 Plavix Acute on chronic CHF exacerbation ejection fraction 35 percent Diabetes History of seizures on gabapentin Hypertension Hyperlipidemia Obesity Chronic current smoker Time spent 50 minutes Advanced care planning time 20 minutes Patient is full code Previous hospital stay 04/15/24 to 05-02-24 Plan discussed with: Patient My Orders Orders - SHARMIN AN MD Procedure Category Date Status Time Ls Spine Wo Contrast CT 07/12/24 Resulted 12:51 Lorazepam 2mg/Ml Inj PHA 07/12/24 In Process (Ativan Inj) 13:00 Oxycodone W/ Acet PHA 07/12/24 In Process 5/325mg Tab (Percocet 16:30 SHARMIN AN MD July 13, 2024 11:05
--- NOTE | 2024-07-13 11:27 | DVHPN2 ---
Reviewed: Care Plan Changes from previous H/P or p: No Changes Objective Vitals Vital Signs Date Time Temp Pulse Resp B/P (MAP) Pulse Ox O2 Delivery O2 Flow Rate FiO2 07/13/24 09:21 82 20 164/82 07/13/24 09:17 98 07/13/24 09:17 Nasal Cannula 3.0 07/13/24 09:17 32 07/13/24 08:59 98.2 98.2 Intake/Output Intake and Output 07/13/24 06:59 Intake Total 1300 ml Output Total 600 ml Balance 700 ml Intake Oral 1300 ml Output Urine Total 600 ml Medications Current Medications Medications Dose Ordered Sig/Gerard Route Start Time Stop Time Status Last Admin Dose Admin Albuterol 2.5 mg Q6HPRN PRN NEB 07/12/24 00:30 07/13/24 09:17 2.5 MG Amlodipine Besylate 10 mg DAILY PO 07/12/24 10:00 07/13/24 09:20 10 MG Aspirin 81 mg DAILY PO 07/12/24 10:00 07/13/24 09:19 81 MG Atorvastatin Calcium 40 mg HS PO 07/12/24 22:00 07/12/24 22:28 40 MG Calcium Acetate 667 mg TIDWMEALS PO 07/12/24 08:00 07/13/24 09:17 667 MG Clopidogrel Bisulfate 75 mg DAILY PO 07/12/24 10:00 07/13/24 09:19 75 MG Furosemide 40 mg DAILY PO 07/12/24 10:00 07/13/24 09:18 40 MG Gabapentin 100 mg TID PO 07/12/24 06:00 07/13/24 05:40 100 MG Hydralazine HCl 50 mg Q8HR PO 07/12/24 06:00 07/13/24 05:40 50 MG Isosorbide Mononitrate 30 mg DAILY PO 07/12/24 10:00 07/13/24 09:18 30 MG Ranolazine 500 mg BID PO 07/12/24 10:00 07/13/24 09:17 500 MG Metoprolol Succinate 100 mg DAILY PO 07/12/24 10:00 07/13/24 09:19 100 MG Temazepam 15 mg QHSP PRN PO 07/12/24 00:30 07/12/24 22:28 15 MG Ondansetron HCl 4 mg Q4HP PRN IV 07/12/24 00:30 Acetaminophen 650 mg Q6HP PRN PO 07/12/24 00:30 Morphine Sulfate 2 mg Q4HPRN PRN IV 07/12/24 00:30 07/13/24 09:21 2 MG Clonidine HCl 0.1 mg Q6HP PRN PO 07/12/24 00:45 07/13/24 03:50 0.1 MG Lorazepam 1 mg Q5MINP PRN IV 07/12/24 13:00 Oxycodone/ Acetaminophen 1 tab Q6HP PRN PO 07/12/24 16:30 07/13/24 05:43 1 TAB Laboratory Results Laboratory Tests 07/11/24 18:51 07/13/24 06:22 Chemistry Test 07/13/24 06:22 Calcium Level 10.2 mg/dL (8.7-10.4) Phosphorus Level 4.5 mg/dL (2.4-5.1) Urinalysis Test 07/12/24 00:45 Urine Color Light-yellow (Yellow) Urine Clarity Clear (Clear) Urine pH 8.5 (5.0-9.0) Urine Specific [place] 1.010 (1.001-1.035) Urine Protein 3+ (Negative) H Urine Ketones Negative (Negative) Urine Blood Negative /uL (Negative) Urine Nitrite Negative (Negative) Urine Bilirubin Negative (Negative) Urine Urobilinogen Normal mg/dL (Negative) Urine Leukocyte Esterase Negative /uL (Negative) Urine RBC 1 /hpf (0 - 3) Urine Microscopic WBC 1 /HPF (0-3) Urine Squamous Epithelial Cells Few /hpf (<5) Urine Bacteria None seen /hpf (None Seen) Urine Glucose 3+ mg/dL (Normal) H Microbiology Microbiology Date/Time Source Procedure Growth Status 07/12/24 06:10 Nose MRSA Screen - Final Complete Labs and/or images reviewed: Labs reviewed by me, Image(s) reviewed by me Assessment/Plan Assessment/Plan End-stage renal disease, dialysis dependent consult for Dr. Byrd appreciated Chronic pain syndrome Right hip pain: Hip x-ray negative Chronic back pain: CT LS spine diskitis and possible osteomyelitis L4 and five, MRI L spine ordered consult for ID Dr. Cronin and spine surgeon Accelerated hypertension Acute generalized Weakness Anemia of chronic disease Coronary artery disease status post stents x3 Plavix Acute on chronic CHF exacerbation ejection fraction 35 percent Diabetes History of seizures on gabapentin Hypertension Hyperlipidemia Obesity Chronic current smoker counseling Time spent 70 minutes Advanced care planning time 20 minutes Patient is full code Previous hospital stay 04/15/24 to 05-02-24 Spoke to patient's five Marycruz [phone] one and advised the current diagnosis management and pending specialist consultations Plan discussed with: Patient My Orders Orders - SHARMIN AN MD Procedure Category Date Status Time Ls Spine Wo Contrast CT 07/12/24 Resulted 12:51 Lorazepam 2mg/Ml Inj PHA 07/12/24 In Process (Ativan Inj) 13:00 Oxycodone W/ Acet PHA 07/12/24 In Process 5/325mg Tab (Percocet 16:30 Date of Service: July 13, 2024 Billing Provider: SHARMIN AN MD Common Visit Codes: [id number] CARE 30-74 MIN SHARMIN AN MD July 13, 2024 11:26
[2024-07-13] MEDS: HYDROmorphone HCL 2 MG/ML VL/or syr IV PRN (12:42)
[2024-07-13] MEDS: ONDANSETRON HCL 4 MG/2 ML VIAL IV PRN (14:45)
--- NOTE | 2024-07-13 15:07 | DVHPN2 ---
Progress Note - Dictate Date Seen: July 13, 2024 Medical Necessity Reason Pt with a Central, PICC or Fol: No Subjective Back pain is better controlled. vital signs Vital Sign Date Time Temp Pulse Resp B/P (MAP) Pulse Ox O2 Delivery O2 Flow Rate FiO2 07/13/24 12:42 77 18 155/79 07/13/24 09:17 98 07/13/24 09:17 Nasal Cannula 3.0 07/13/24 09:17 32 07/13/24 08:59 98.2 98.2 Total Intake and Output 07/12/24 07/12/24 07/13/24 15:00 23:00 07:00 Intake Total 700 ml 600 ml Output Total 500 ml 100 ml Balance 200 ml 500 ml medications Current Medications Medications Dose Ordered Sig/Gerard Route Start Time Stop Time Status Last Admin Dose Admin Albuterol 2.5 mg Q6HPRN PRN NEB 07/12/24 00:30 07/13/24 09:17 2.5 MG Amlodipine Besylate 10 mg DAILY PO 07/12/24 10:00 07/13/24 09:20 10 MG Aspirin 81 mg DAILY PO 07/12/24 10:00 07/13/24 09:19 81 MG Atorvastatin Calcium 40 mg HS PO 07/12/24 22:00 07/12/24 22:28 40 MG Calcium Acetate 667 mg TIDWMEALS PO 07/12/24 08:00 07/13/24 09:17 667 MG Clopidogrel Bisulfate 75 mg DAILY PO 07/12/24 10:00 07/13/24 09:19 75 MG Furosemide 40 mg DAILY PO 07/12/24 10:00 07/13/24 09:18 40 MG Gabapentin 100 mg TID PO 07/12/24 06:00 07/13/24 05:40 100 MG Hydralazine HCl 50 mg Q8HR PO 07/12/24 06:00 07/13/24 05:40 50 MG Isosorbide Mononitrate 30 mg DAILY PO 07/12/24 10:00 07/13/24 09:18 30 MG Ranolazine 500 mg BID PO 07/12/24 10:00 07/13/24 09:17 500 MG Metoprolol Succinate 100 mg DAILY PO 07/12/24 10:00 07/13/24 09:19 100 MG Temazepam 15 mg QHSP PRN PO 07/12/24 00:30 07/12/24 22:28 15 MG Ondansetron HCl 4 mg Q4HP PRN IV 07/12/24 00:30 07/13/24 14:45 4 MG Acetaminophen 650 mg Q6HP PRN PO 07/12/24 00:30 Clonidine HCl 0.1 mg Q6HP PRN PO 07/12/24 00:45 07/13/24 03:50 0.1 MG Lorazepam 1 mg Q5MINP PRN IV 07/12/24 13:00 Hydromorphone HCl 2 mg Q4HPRN PRN IV 07/13/24 11:45 07/13/24 12:42 2 MG objective HEENT: No evidence of JVD, no oral ulcers. Pulmonary: Lungs are clear on auscultation bilaterally Cardiovascular S1-S2, no S3 or S4 Abdomen: Bowel sounds positive, soft no rebound tenderness Skin: No rash Neurological: Alert, oriented, no focal weakness Musculoskeletal: Decreased range of motion low back Access left upper arm AV fistula positive bruit and thrill laboratory and microbiology Laboratory Tests 07/13/24 06:22 07/11/24 18:51 Test 07/13/24 06:22 Range/Units Serum Glucose 112 H 74-106 mg/dL Assessment/Plan Assessment: 1. End-stage renal disease on hemodialysis TTS via AV fistula. 2. Intractable low back pain. 3. Diskitis/osteomyelitis of the L4-L5 4. Hypertension uncontrolled 5. Hyperkalemia managed with dialysis. 6. Anemia of end-stage renal disease. 7. CAD. 8. Chronic pain syndrome. Plan slight recommendations: Continue dialysis TTS [place] on the non dialysis days Analgesia. Continue phosphate binders IV antibiotics, infectious disease consultation. Consider MRI of the back if possible. Kody as needed for goal hemoglobin 10 to 11 grams/deciliter. Fluid restriction less than 1 L per day. Neuropathy. Thank you very much for allowing us to participate in the care of this patient. Plan discussed with: Patient TOMÁS RODARTE MD July 13, 2024 15:07
[2024-07-13 16:48] LABS: Erythrocyte Sedimentation Rate 1 mm/hr (0-20)
[2024-07-13] MEDS ORDERED: VANCOMYCIN PER PHARMACY 0 MG IV SCH (20:00)
--- NOTE | 2024-07-13 21:05 | DVHINCON2 ---
HERIBERTO DELEON RESIDENT 07/13/242104: Date of service: July 13, [address] Diaz Reason for Consultation osteomyelitis History of Present Illness This is a 59-year-old male presents for evaluation of generalized weakness. Past Medical History: End-stage renal disease, CHF, COPD, hypertension, seizures, CAD Past Surgical History: Dialysis access Family History: Noncontributory SH: Smoke: <1 pack per day. ALCOHOL: occassional. Drugs: None. Lives: with Family Patient reports having chronic pain to bilateral lower extremities. He states today pain was excruciating to his right hip he was unable to ambulate. Denies any falls or trauma to the area. Patient is also dialysis dependent and should be getting dialyzed today. Denies chest pain or shortness for breath. No headache or blurred vision. No other acute complaints. On my initial assessment, patient was seen and examined at bedside. He started complaining of severe nausea and vomiting. Areas green fluid. Patient stated having intermittent severe pain in both of his legs and on the right shape, he denied any fevers, chills, dizziness. Patient's back pain started around February of last year, he also had an abscess in his buttock, patient was here in April in which he was diagnosed with diskitis, he was started on vancomycin and Fortaz IV for six weeks, he also had an abscess. This was all near L4-L5. Patient has had a CT performed during this hospitalization with states having progressive diskitis and osteomyelitis, increase endplate destruction, compression of thecal sac, edema. Spinal doctor has been consulted. Patient is currently alert and oriented, he is tolerating diet, he is able to transition to the wheelchair. Family History: Diabetes mellitus G8 MOTHER, Onset:Unknown G8 FATHER, Onset:Unknown Fibromyalgia G8 MOTHER Hypertension G8 MOTHER G8 FATHER, Onset:Unknown Allergies: Coded Allergies: Penicillins (Verified Allergy, Unknown, 09/19/23) Tetanus Toxoid (Verified Allergy, Unknown, 09/19/23) Home Meds Active Scripts Clopidogrel Bisulfate (CLOPIDOGREL) 75 Mg Tab, 75 MG PO DAILY for 30 Days, #30 TAB Prov:LEÓN COLLINS MD 08/16/23 Reported Medications Patiromer Sorbitex Calcium (Veltassa) 8.4 Gm Pow, 1 PKT PO DAILY 07/12/24 Colchicine (Mitigare) 0.6 Mg Cap, 0.6 MG PO PRN for for gout, CAP 07/12/24 Albuterol Sulfate (VENTOLIN MDI) 90 Mcg Ih, 2 PUFF IN Q6HPRN PRN for wheezing, INH 07/12/24 Losartan Potassium (Cozaar) 100 Mg Tab, 300 MG PO DAILY, TAB 07/12/24 Ipratropium-Albuterol (Ipratropium [place]/Albut) 1 Jacob Jacob, 1 JACOB IN QIDPRN PRN for SHORTNESS OF BREATH, ML 07/12/24 Colchicine (Colchicine) Pow, 0.6 MG PO Q12HR for 30 Days, MG 04/17/24 Clonidine Hydrochloride (Clonidine Hcl) 0.1 Mg Tab, 1 TAB PO PRN for SBP>160 04/17/24 Furosemide (Lasix) 40 Mg Tab, 40 MG PO DAILY, TAB 03/04/24 Amlodipine Besylate (NORVASC TABLET) 5 Mg Tb, 2 TAB PO DAILY, #30 TAB 5 Refills 03/04/24 Isosorbide Mononitrate (Isosorbide Mononitrate Er) 30 Mg Tab, 60 MG PO DAILY for CAD 09/19/23 Calcium Acetate (Phosphate Bin (Calcium Acetate) 667 Mg Cap, 667 MG PO TIDWM for DIALYSIS, MG 09/19/23 Atorvastatin Calcium (ATORVASTATIN CALCIUM) 40 Mg Tab, 1 TAB PO DAILY for HIGH CHOLESTEROL, #30 TAB 5 Refills 09/19/23 Llhlndqjcc-Jzfchawyubmbhn-Pdsy (Breztri Aerosphere 160-9-4.8 Mcg/Act) 1 Aer Aer, 1 AER IN BID for COPD, AER 09/19/23 Albuterol Sulfate (Ventolin) 2.5 Mg/3 Ml Nb, 2.5 MG NEB Q4HP PRN for SHORTNESS OF BREATH, INH 09/19/23 Ranolazine (Ranolazine ER) 500 Mg Tab, 500 MG PO BID for CAD, TAB 09/19/23 Diazepam (VALIUM TABLET) 5 Mg Tb, 2 TAB PO PRN PRN for onset seizure, TAB 08/14/23 Hydralazine Hcl (Hydralazine Hcl) 100 Mg Tab, 1 TAB PO TID, #90 TAB 5 Refills 08/14/23 Gabapentin (Gabapentin) 100 Mg Cap, 2 CAP PO TID PRN for onset seizure , #90 CAP 2 Refills Take with diazepam. 08/14/23 Pantoprazole Sodium Sesquihydr (Protonix) 40 Mg Tab, 40 MG PO QAM, #30 TAB 08/14/23 Aspirin (Aspir-81) 81 Mg Tab, 1 TAB PO QAM, #30 TAB 5 Refills 08/14/23 Allopurinol (ZYLOPRIM TABLET) 100 Mg Tb, 1 TAB PO QAM, #30 TAB 5 Refills 08/14/23 Current Medications Current Medications Medications (Trade) Dose Ordered Sig/Gerard Route PRN Reason Start Time Stop Time Status Last Admin Atorvastatin Calcium (Lipitor) 40 mg HS PO 07/12/24 22:00 07/12/24 22:28 Hydromorphone HCl (Dilaudid Injection) 2 mg Q4HPRN PRN IV SEVERE PAIN (7-10 PAIN SCALE) 07/13/24 11:45 07/13/24 20:14 Vancomycin HCl 0 ml @ 0 mls/hr UD IV 07/13/24 20:00 UNV Meropenem 50 ml @ 17 mls/hr DAILY IV 07/14/24 10:00 UNV Vital Signs Vital Signs Date Time Temp Pulse Resp B/P (MAP) Pulse Ox O2 Delivery O2 Flow Rate FiO2 07/13/24 20:14 82 18 168/78 07/13/24 17:00 97.7 100 97.7 07/13/24 10:00 Nasal Cannula 2.0 07/13/24 10:00 28 Physical Exam Physical examination as below: General: Awake, alert, comfortable appearing, in no acute distress. HEENT: Head is normocephalic and atraumatic. Pupils are equal, round, and reactive to light. Extraocular muscles are intact. No nasal discharge. No facial trauma. Intraoral exam shows moist mucous membranes with no tonsillar enlargement or exudate. Neck: Supple with no cervical lymphadenopathy. Heart: Regular rate without murmur, rub, or gallop. Lungs: Equal breath sounds bilaterally with no wheezing, rales, or rhonchi. There is no chest wall tenderness or instability. Abdomen: No external sign of injury. Bowel sounds are present. Abdomen is soft, nontender. No rebound, no guarding, no rigidity. There are no palpable masses. There is no flank pain on exam. Extremities: Strong peripheral pulses. There is no clubbing, no cyanosis, and no edema. No spinal tenderness, cellulitis. Skin: No rash. Neurologic: Cranial nerves II-XII intact without motor, sensory, or cerebellar deficit, no asterixis. Labs/Diagnostic Data Labs Test 07/13/24 16:20 07/13/24 06:22 07/12/24 17:12 07/12/24 00:45 Range/Units Erythrocyte Sedimentation Rate 1 0-20 mm/hr C-Reactive Protein High Sensitivity 1.66 H <1.0 mg/dL Sodium Level 136 136-145 mmol/L Potassium Level 5.2 H 3.5-5.1 mmol/L Chloride Level 97 L 98-107 mmol/L Carbon Dioxide Level 29 20-31 mmol/L Anion Gap 10 5-15 Blood Urea Nitrogen 28 #H 9-23 mg/dL Creatinine 5.04 H 0.700-1.30 mg/dL Glomerular Filtration Rate Calc 12 >90 mL/min BUN/Creatinine Ratio 5.6 L 10.0-20.0 Serum Glucose 112 H 74-106 mg/dL Calcium Level 10.2 8.7-10.4 mg/dL Phosphorus Level 4.5 2.4-5.1 mg/dL Iron Level 53 L 65-175 ug/dL Total Iron Binding Capacity 192 L 250-425 ug/dL Percent Iron Saturation 27.6 20-55 % Ferritin 607.6 H 22-322 ng/mL Hepatitis B Surface Antigen Negative Negative Urine Color Light-yellow Yellow Urine Clarity Clear Clear Urine pH 8.5 5.0-9.0 Urine Specific [place] 1.010 1.001-1.035 Urine Protein 3+ H Negative Urine Ketones Negative Negative Urine Blood Negative Negative /uL Urine Nitrite Negative Negative Urine Bilirubin Negative Negative Urine Urobilinogen Normal Negative mg/dL Urine Leukocyte Esterase Negative Negative /uL Urine RBC 1 0 - 3 /hpf Urine Microscopic WBC 1 0-3 /HPF Urine Squamous Epithelial Cells Few <5 /hpf Urine Bacteria None seen None Seen /hpf Urine Glucose 3+ H Normal mg/dL Test 07/11/24 18:51 Range/Units White Blood Count 5.7 4.4-10.8 10^3/uL Red Blood Count 3.78 L 4.5-5.90 10^6/uL Hemoglobin 11.9 L 13.5-17.5 g/dL Hematocrit 35.1 L 41.0-53.0 % Mean Corpuscular Volume 92.9 80.0-100.0 fL Mean Corpuscular Hemoglobin 31.5 28.0-32.0 pg Mean Corpuscular Hemoglobin Concent 33.9 32.0-36.0 g/dL Red Cell Distribution Width 18.7 H 11.8-14.3 % Platelet Count 139 L 140-450 10^3/uL Mean Platelet Volume 7.0 6.9-10.8 fL Neutrophils (%) (Auto) 74.0 37.0-80.0 % Lymphocytes (%) (Auto) 12.6 10.0-50.0 % Monocytes (%) (Auto) 8.8 0.0-12.0 % Eosinophils (%) (Auto) 3.5 0.0-7.0 % Basophils (%) (Auto) 1.1 0.0-2.0 % Neutrophils # (Auto) 4.2 1.6-8.6 10 ^3/uL Lymphocytes # (Auto) 0.7 0.4-5.4 10 ^3/uL Monocytes # (Auto) 0.5 0-1.3 10 ^3/uL Eosinophils # (Auto) 0.2 0-0.8 10 ^3/uL Basophils # (Auto) 0.1 0-0.2 10 ^3/uL Nucleated Red Blood Cells 0.0 % Total Bilirubin 0.3 0.2-1.0 mg/dL Aspartate Amino Transferase (AST) 10 L 13-40 U/L Alanine Aminotransferase (ALT) 10 7-40 U/L Alkaline Phosphatase 108 46-116 U/L Total Protein 6.6 5.7-8.2 g/dL Albumin 4.1 3.2-4.8 g/dL Microbiology Date/Time Source Procedure Growth Status 07/12/24 06:10 Nose MRSA Screen - Final Complete Assessment Diskitis/osteomyelitis of the L4-L5 with radiculopathy End-stage renal disease on hemodialysis TTS via AV fistula. Hypertension uncontrolled Anemia of end-stage renal disease CAD Chronic pain syndrome CHF Diabetes History of seizures Hypertension Hyperlipidemia Obesity Plan/Recommendation Start vancomycin and meropenem Pending blood culture Ordered crp, esr Discussed the case with spinal doctor, he might do an intervention on Tuesday, likely a laminectomy, hold Plavix now Pending MRI without contrast of the lumbar spine Case was discussed with Dr. Cronin Plan discussed with: Patient, Other (RN) ENDY CRONIN MD 07/16/24 1442: Family History: Diabetes mellitus G8 MOTHER, Onset:Unknown G8 FATHER, Onset:Unknown Fibromyalgia G8 MOTHER Hypertension G8 MOTHER G8 FATHER, Onset:Unknown Allergies: Coded Allergies: Penicillins (Verified Allergy, Unknown, 09/19/23) Tetanus Toxoid (Verified Allergy, Unknown, 09/19/23) Home Meds Active Scripts Clopidogrel Bisulfate (CLOPIDOGREL) 75 Mg Tab, 75 MG PO DAILY for 30 Days, #30 TAB Prov:LEÓN COLLINS MD 08/16/23 Reported Medications Patiromer Sorbitex Calcium (Veltassa) 8.4 Gm Pow, 1 PKT PO DAILY 07/12/24 Colchicine (Mitigare) 0.6 Mg Cap, 0.6 MG PO PRN for for gout, CAP 07/12/24 Albuterol Sulfate (VENTOLIN MDI) 90 Mcg Ih, 2 PUFF IN Q6HPRN PRN for wheezing, INH 07/12/24 Losartan Potassium (Cozaar) 100 Mg Tab, 300 MG PO DAILY, TAB 07/12/24 Ipratropium-Albuterol (Ipratropium [place]/Albut) 1 Jacob Jacob, 1 JACOB IN QIDPRN PRN for SHORTNESS OF BREATH, ML 07/12/24 Colchicine (Colchicine) Pow, 0.6 MG PO Q12HR for 30 Days, MG 04/17/24 Clonidine Hydrochloride (Clonidine Hcl) 0.1 Mg Tab, 1 TAB PO PRN for SBP>160 04/17/24 Furosemide (Lasix) 40 Mg Tab, 40 MG PO DAILY, TAB 03/04/24 Amlodipine Besylate (NORVASC TABLET) 5 Mg Tb, 2 TAB PO DAILY, #30 TAB 5 Refills 03/04/24 Isosorbide Mononitrate (Isosorbide Mononitrate Er) 30 Mg Tab, 60 MG PO DAILY for CAD 09/19/23 Calcium Acetate (Phosphate Bin (Calcium Acetate) 667 Mg Cap, 667 MG PO TIDWM for DIALYSIS, MG 09/19/23 Atorvastatin Calcium (ATORVASTATIN CALCIUM) 40 Mg Tab, 1 TAB PO DAILY for HIGH CHOLESTEROL, #30 TAB 5 Refills 09/19/23 Jaziwtaqyg-Vgybmhgnyofykc-Ugdv (Breztri Aerosphere 160-9-4.8 Mcg/Act) 1 Aer Aer, 1 AER IN BID for COPD, AER 09/19/23 Albuterol Sulfate (Ventolin) 2.5 Mg/3 Ml Nb, 2.5 MG NEB Q4HP PRN for SHORTNESS OF BREATH, INH 09/19/23 Ranolazine (Ranolazine ER) 500 Mg Tab, 500 MG PO BID for CAD, TAB 09/19/23 Diazepam (VALIUM TABLET) 5 Mg Tb, 2 TAB PO PRN PRN for onset seizure, TAB 08/14/23 Hydralazine Hcl (Hydralazine Hcl) 100 Mg Tab, 1 TAB PO TID, #90 TAB 5 Refills 08/14/23 Gabapentin (Gabapentin) 100 Mg Cap, 2 CAP PO TID PRN for onset seizure , #90 CAP 2 Refills Take with diazepam. 08/14/23 Pantoprazole Sodium Sesquihydr (Protonix) 40 Mg Tab, 40 MG PO QAM, #30 TAB 08/14/23 Aspirin (Aspir-81) 81 Mg Tab, 1 TAB PO QAM, #30 TAB 5 Refills 08/14/23 Allopurinol (ZYLOPRIM TABLET) 100 Mg Tb, 1 TAB PO QAM, #30 TAB 5 Refills 08/14/23 Plan/Recommendation Addendum Dr. Endy Cronin Reviewed subjective, clinical findings, assessment and plan as described by Dr. Dugan above and agree with it with the exception of what is traditionally mentioned below: Mr. Mikhail Mckee is a 59 year old male with a past medical history of active smoking history ,end stage renal disease , bedbound , COPD , seizures, were found to have a right buttock abscess last year that was treated with antibiotics , unclear where this was done . Presented with pneumonia here , klebsiella and MRSA growth here and was treated with vancomycin and cefepime for 6 weeks per culture sensitivities. Now is back with worsening lower extremity weakness and numbness of the legs , right hip pain. Ct was performed on his lower back and he has a progressive discitis and osteomyelitis with increased end plare destruction compression of the thecolphycodema and possible para spinal abscess. 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 Jaimes recommends holding plavix and will continue vancomycin and maripenum. plan: - recommend blood cultures - recommend said rate and CRP testing - recommend MRI without contrast of lumbar spine to further evaluate osteomyelitis and discitis - will require biopsy of spine and para spinal muscles that are infected and send for bacterial aerobic and anaerobic culturing when patient gets a surgical laminectomy HERIBERTO DELEON RESIDENT July 13, 2024 21:05 ENDY CRONIN MD July 16, 2024 14:42
[2024-07-14] VITALS (10 sets, daily range): BP systolic 143–173; BP diastolic 53–95; PULSE 76–89; RESP 16–20; TEMP 97.9–98.4; O2SAT 92–100
[2024-07-14] MEDS: SODIUM CHL 0.9% 1000 ML BAG XX ONE (07:00)
--- NOTE | 2024-07-14 09:48 | DVHPN2 ---
Reviewed: Care Plan Changes from previous H/P or p: No Changes Objective Vitals Vital Signs Date Time Temp Pulse Resp B/P (MAP) Pulse Ox O2 Delivery O2 Flow Rate FiO2 07/14/24 06:45 77 18 100 07/14/24 06:39 Nasal Cannula 2.0 07/14/24 06:39 28 07/14/24 06:39 159/53 07/14/24 05:00 98.4 98.4 Intake/Output Intake and Output 07/14/24 07:00 Intake Total 1180 ml Output Total 400 ml Balance 780 ml Intake Oral 1180 ml Output Urine Total 400 ml # Voids 5 Medications Current Medications Medications Dose Ordered Sig/Gerard Route Start Time Stop Time Status Last Admin Dose Admin Albuterol 2.5 mg Q6HPRN PRN NEB 07/12/24 00:30 07/14/24 06:39 2.5 MG Amlodipine Besylate 10 mg DAILY PO 07/12/24 10:00 07/13/24 09:20 10 MG Aspirin 81 mg DAILY PO 07/12/24 10:00 07/14/24 08:29 81 MG Atorvastatin Calcium 40 mg HS PO 07/12/24 22:00 07/13/24 23:49 40 MG Calcium Acetate 667 mg TIDWMEALS PO 07/12/24 08:00 07/14/24 08:28 667 MG Clopidogrel Bisulfate 75 mg DAILY PO 07/12/24 10:00 Hold 07/13/24 09:19 75 MG Furosemide 40 mg DAILY PO 07/12/24 10:00 07/13/24 09:18 40 MG Gabapentin 100 mg TID PO 07/12/24 06:00 07/14/24 06:39 100 MG Hydralazine HCl 50 mg Q8HR PO 07/12/24 06:00 07/14/24 06:39 50 MG Isosorbide Mononitrate 30 mg DAILY PO 07/12/24 10:00 07/13/24 09:18 30 MG Ranolazine 500 mg BID PO 07/12/24 10:00 07/14/24 08:30 500 MG Metoprolol Succinate 100 mg DAILY PO 07/12/24 10:00 07/13/24 09:19 100 MG Temazepam 15 mg QHSP PRN PO 07/12/24 00:30 07/12/24 22:28 15 MG Ondansetron HCl 4 mg Q4HP PRN IV 07/12/24 00:30 07/14/24 08:28 4 MG Acetaminophen 650 mg Q6HP PRN PO 07/12/24 00:30 Clonidine HCl 0.1 mg Q6HP PRN PO 07/12/24 00:45 07/13/24 03:50 0.1 MG Lorazepam 1 mg Q5MINP PRN IV 07/12/24 13:00 Hydromorphone HCl 2 mg Q4HPRN PRN IV 07/13/24 11:45 07/14/24 04:57 2 MG Vancomycin HCl 0 ml @ 0 mls/hr UD IV 07/13/24 20:00 UNV Meropenem 50 ml @ 17 mls/hr DAILY IV 07/14/24 10:00 Laboratory Results Laboratory Tests 07/11/24 18:51 07/13/24 06:22 Urinalysis Test 07/12/24 00:45 Urine Color Light-yellow (Yellow) Urine Clarity Clear (Clear) Urine pH 8.5 (5.0-9.0) Urine Specific [place] 1.010 (1.001-1.035) Urine Protein 3+ (Negative) H Urine Ketones Negative (Negative) Urine Blood Negative /uL (Negative) Urine Nitrite Negative (Negative) Urine Bilirubin Negative (Negative) Urine Urobilinogen Normal mg/dL (Negative) Urine Leukocyte Esterase Negative /uL (Negative) Urine RBC 1 /hpf (0 - 3) Urine Microscopic WBC 1 /HPF (0-3) Urine Squamous Epithelial Cells Few /hpf (<5) Urine Bacteria None seen /hpf (None Seen) Urine Glucose 3+ mg/dL (Normal) H Microbiology Microbiology Date/Time Source Procedure Growth Status 07/12/24 06:10 Nose MRSA Screen - Final Complete Labs and/or images reviewed: Labs reviewed by me, Image(s) reviewed by me Assessment/Plan Assessment/Plan End-stage renal disease, dialysis dependent consult for Dr. Byrd appreciated Chronic pain syndrome Right hip pain: Hip x-ray negative Chronic back pain: CT LS spine diskitis and possible osteomyelitis L4 -5, MRI L spine pending, Consult by ID Dr. Cronin appreciated, placed on vancomycin and meropenem Spine surgery consult by Dr. Villafana pending possible laminectomy on Tuesday, hold Plavix Accelerated hypertension Acute generalized Weakness Anemia of chronic disease Coronary artery disease status post stents x3 Plavix Acute on chronic CHF exacerbation ejection fraction 35 percent Diabetes History of seizures on gabapentin Hypertension Hyperlipidemia Obesity Chronic current smoker counseling Time spent 50 minutes Advanced care planning time 20 minutes Patient is full code PCP Scott Wade Previous hospital stay 04/15/24 to 05-02-24 Spoke to patient's five Marycruz [phone] one and advised the current diagnosis management and pending specialist consultations Plan discussed with: Patient My Orders Orders - SHARMIN AN MD Procedure Category Date Status Time Lumbar Spine Wo MRI 07/13/24 Logged Contrast 11:01 Blood Culture GAETANO 07/13/24 In Process 11:03 * Infectious Shona- CONS 07/13/24 Transmitted Oleg Cronin 11:04 * Orthopedic Consult CONS 07/13/24 Transmitted 11:04 Hydromorphone PHA 07/13/24 In Process Injection (Dilaudid 11:45 Date of Service: July 14, 2024 Billing Provider: SHARMIN AN MD Common Visit Codes: [id number] INP/OBS CARE(HIGH) SHARMIN AN MD July 14, 2024 09:48
[2024-07-14] MEDS: MEROPENEM 500MG IVPB 50 ML IV SCH (10:00)
[2024-07-14] MEDS: diazePAM 5 MG TAB PO PRN (14:12)
--- NOTE | 2024-07-14 17:54 | DVH ---
CLINICAL INFORMATION: Discitis/osteomyelitis at L4-L5. TECHNIQUE: Multisequence multiplanar MRI images of the lumbar spine were obtained without contrast. COMPARISON: MRI LUMBAR SPINE WO CONTRAST on DOS: 04/18/24. CT lumbar spine dated 07/12/2024. INTERPRETATION: Minimal anterolisthesis of L5 on S1. Minimal retrolisthesis of L3 on L4. Vertebral body heights are maintained. Chronic bilateral pars defects at L5. Prominent marrow edema in the L 4 and L5 vertebral bodies, greatest near the L4-L5 disc space, with associated disc space narrowing a nd endplate irregularities consistent with reported clinical history of discitis/osteomyelitis. There has been progressive disc space narrowing at L4-L5 compared to the prior exam. There is also marrow edema in the left pedicles and pars interarticularis of L4 and L5, also seen on the prior MRI, may be due to extension of osteomyelitis and/or stress related changes. There is prevertebral soft tissue e domenic. There is a small focal area of T2 hyperintense signal in the prevertebral soft tissues measuri ng up to 0.6 cm, possibly correlating with previously seen prevertebral abscess, although not optimal ly evaluated on noncontrast enhanced exam. When compared to the prior noncontrast enhanced MRI images , the T2 hyperintense structure is smaller. Modic type 2 endplate changes at L3-L4. Visualized spinal cord and cauda equina are within normal limits. The conus medullaris is appropriate in signal at th e L1-L2 level. Moderate fatty atrophy of the paraspinal musculature in the lower lumbosacral spine. Small cysts are seen in both kidneys. L1-L2: Disc desiccation. Diffuse disc bulge causing moderate spinal canal stenosis and partial effac ement of the lateral recesses. Facet hypertrophy with moderate bilateral neural foraminal stenoses. L2-L3: Disc desiccation. Diffuse disc bulge causing moderate spinal canal stenosis and partial effac ement of the lateral recesses. Facet hypertrophy with moderate bilateral neural foraminal stenoses. L3-L4: Disc desiccation. Diffuse disc bulge causes mild spinal canal stenosis and partial effacemen t of the lateral recesses. Facet hypertrophy with moderate bilateral neural foraminal stenoses. T2 hy perintense signal in the posterior aspect of the disc, likely annular fissure. L4-L5: Severe disc space narrowing. Findings consistent with discitis/ osteomyelitis as described a [place]. Posterior disc osteophyte complex causes mild indentation of the ventral aspect of the thecal s ac. Facet hypertrophy with moderate to severe bilateral neural foraminal stenoses. L5-S1: Disc desiccation with diffuse disc bulge mildly indenting the ventral aspect of the thecal sa c. No significant spinal canal stenosis. Facet hypertrophy with moderate bilateral neural foraminal s tenoses. IMPRESSION: 1. Findings consistent with discitis/osteomyelitis at L4-L5 as described above. Limited evaluation o f the paraspinal, prevertebral, and epidural soft tissues without IV contrast. Previously seen prever tebral abscess appears smaller, although not optimally characterize without IV contrast. There remain s prominent edema in the prevertebral soft tissues centered near the L4-L5 level. 2. Edema in the left pedicles and pars interarticularis of L4 on L5, may be due to extension of osteo myelitis in this location and/or stress related changes. 3. Degenerative disc disease and facet disease in the lumbar spine with associated spinal canal, suba rticular, and neural foraminal stenoses as detailed above. 4. Additional findings as detailed above.
[2024-07-15] VITALS (12 sets, daily range): BP systolic 118–175; BP diastolic 64–88; PULSE 61–85; RESP 12–20; TEMP 97.1–98.2; O2SAT 95–100
[2024-07-15 07:09] LABS: Basophils # (auto) 0 10 ^3/uL (0-0.2); Basophils % (auto) 0.7 % (0.0-2.0); Eosinophils # (auto) 0.3 10 ^3/uL (0-0.8); Eosinophils % (auto) 3.9 % (0.0-7.0); Hemoglobin 11.8 g/dL (13.5-17.5); Lymphocytes # (auto) 0.7 10 ^3/uL (0.4-5.4); Lymphocytes % (auto) 10.2 % (10.0-50.0); Mean Corpuscular Hemoglobin 31.4 pg (28.0-32.0); Mean Corpuscular Hgb Conc. 33.7 g/dL (32.0-36.0); Mean Corpuscular Volume 93.3 fL (80.0-100.0); Monocytes # (auto) 0.7 10 ^3/uL (0-1.3); Monocytes % (auto) 9.9 % (0.0-12.0); Neutrophils # (auto) 5.1 10 ^3/uL (1.6-8.6); Neutrophils % (auto) 75.3 % (37.0-80.0); Platelet Count (auto) 135 10^3/uL (140-450); Red Blood Cells 3.76 10^6/uL (4.5-5.90); Red Cell Distribution Width 18.6 % (11.8-14.3); White Blood Cell 6.8 10^3/uL (4.4-10.8)
--- NOTE | 2024-07-15 11:03 | DVHPN2 ---
Reviewed: Care Plan Changes from previous H/P or p: No Changes Objective Vitals Vital Signs Date Time Temp Pulse Resp B/P (MAP) Pulse Ox O2 Delivery O2 Flow Rate FiO2 07/15/24 10:00 99 Nasal Cannula 2.0 07/15/24 10:00 28 07/15/24 09:00 98.1 77 17 171/84 (113) 98.1 Intake/Output Intake and Output 07/15/24 07:00 Intake Total 1010 ml Output Total 850 ml Balance 160 ml Intake Oral 1010 ml Output Urine Total 850 ml # Voids 2 Medications Current Medications Medications Dose Ordered Sig/Gerard Route Start Time Stop Time Status Last Admin Dose Admin Albuterol 2.5 mg Q6HPRN PRN NEB 07/12/24 00:30 07/14/24 06:39 2.5 MG Amlodipine Besylate 10 mg DAILY PO 07/12/24 10:00 07/15/24 08:57 10 MG Aspirin 81 mg DAILY PO 07/12/24 10:00 07/15/24 08:55 81 MG Atorvastatin Calcium 40 mg HS PO 07/12/24 22:00 07/14/24 21:50 40 MG Calcium Acetate 667 mg TIDWMEALS PO 07/12/24 08:00 07/15/24 08:55 667 MG Clopidogrel Bisulfate 75 mg DAILY PO 07/12/24 10:00 Hold 07/13/24 09:19 75 MG Furosemide 40 mg DAILY PO 07/12/24 10:00 07/15/24 08:56 40 MG Gabapentin 100 mg TID PO 07/12/24 06:00 07/15/24 05:13 100 MG Hydralazine HCl 50 mg Q8HR PO 07/12/24 06:00 07/15/24 05:14 50 MG Isosorbide Mononitrate 30 mg DAILY PO 07/12/24 10:00 07/15/24 08:56 30 MG Ranolazine 500 mg BID PO 07/12/24 10:00 07/15/24 10:48 500 MG Metoprolol Succinate 100 mg DAILY PO 07/12/24 10:00 07/15/24 08:57 100 MG Temazepam 15 mg QHSP PRN PO 07/12/24 00:30 07/12/24 22:28 15 MG Ondansetron HCl 4 mg Q4HP PRN IV 07/12/24 00:30 07/15/24 10:49 4 MG Acetaminophen 650 mg Q6HP PRN PO 07/12/24 00:30 Clonidine HCl 0.1 mg Q6HP PRN PO 07/12/24 00:45 07/15/24 03:32 0.1 MG Lorazepam 1 mg Q5MINP PRN IV 07/12/24 13:00 Hydromorphone HCl 2 mg Q4HPRN PRN IV 07/13/24 11:45 07/15/24 08:58 2 MG Vancomycin HCl 0 ml @ 0 mls/hr UD IV 07/13/24 20:00 Meropenem 50 ml @ 17 mls/hr DAILY IV 07/14/24 10:00 Diazepam 10 mg DAILY PRN PO 07/14/24 10:45 07/14/24 14:12 10 MG Laboratory Results Laboratory Tests 07/13/24 06:22 07/15/24 06:33 Urinalysis Test 07/12/24 00:45 Urine Color Light-yellow (Yellow) Urine Clarity Clear (Clear) Urine pH 8.5 (5.0-9.0) Urine Specific [place] 1.010 (1.001-1.035) Urine Protein 3+ (Negative) H Urine Ketones Negative (Negative) Urine Blood Negative /uL (Negative) Urine Nitrite Negative (Negative) Urine Bilirubin Negative (Negative) Urine Urobilinogen Normal mg/dL (Negative) Urine Leukocyte Esterase Negative /uL (Negative) Urine RBC 1 /hpf (0 - 3) Urine Microscopic WBC 1 /HPF (0-3) Urine Squamous Epithelial Cells Few /hpf (<5) Urine Bacteria None seen /hpf (None Seen) Urine Glucose 3+ mg/dL (Normal) H Microbiology Microbiology Date/Time Source Procedure Growth Status 07/13/24 11:26 Blood Blood Culture - Preliminary NO GROWTH AFTER 24 HOURS OF INCUBATION. Resulted 07/12/24 06:10 Nose MRSA Screen - Final Complete Labs and/or images reviewed: Labs reviewed by me, Image(s) reviewed by me Assessment/Plan Assessment/Plan End-stage renal disease, dialysis dependent consult for Dr. Byrd appreciated Chronic pain syndrome Right hip pain: Hip x-ray negative Acute osteomyelitis L4-5 by MRI L-spine: Consult by ID Dr. Cronin appreciated, placed on vancomycin and meropenem Spine surgery consult by Dr. Villafana pending possible laminectomy on Plavix Accelerated hypertension Acute generalized Weakness Anemia of chronic disease Coronary artery disease status post stents x3 Plavix Acute on chronic CHF exacerbation ejection fraction 35 percent Diabetes History of seizures on gabapentin Hypertension Hyperlipidemia Obesity Chronic current smoker counseling Time spent 50 minutes Advanced care planning time 20 minutes Patient is full code PCP Scott Wade Previous hospital stay 04/15/24 to 05-02-24 Spoke to patient's five Marycruz [phone] one and advised the current diagnosis management and pending specialist consultations Plan discussed with: Patient Date of Service: July 15, 2024 Billing Provider: SHARMIN AN MD Common Visit Codes: [id number] INP/OBS CARE(HIGH) SHARMIN AN MD July 15, 2024 11:03
[2024-07-15] MEDS: cloNIDine HCL 0.1 MG TAB PO PRN (12:32)
[2024-07-15] MEDS: VANCOMYCIN 500mg/100mL 100 ML IV ONE (14:34)
--- NOTE | 2024-07-15 14:55 | DVHPN2 ---
Progress Note - Dictate Date Seen: July 15, 2024 Medical Necessity Reason Pt with a Central, PICC or Fol: No Subjective Back pain is better controlled. vital signs Vital Sign Date Time Temp Pulse Resp B/P (MAP) Pulse Ox O2 Delivery O2 Flow Rate FiO2 07/15/24 14:37 138/70 07/15/24 12:52 97.7 85 17 95 97.7 07/15/24 10:00 Nasal Cannula 2.0 07/15/24 10:00 28 Total Intake and Output 07/14/24 07/14/24 07/15/24 15:00 23:00 07:00 Intake Total 490 ml 520 ml Output Total 350 ml 500 ml Balance 140 ml 20 ml medications Current Medications Medications Dose Ordered Sig/Gerard Route Start Time Stop Time Status Last Admin Dose Admin Albuterol 2.5 mg Q6HPRN PRN NEB 07/12/24 00:30 07/14/24 06:39 2.5 MG Amlodipine Besylate 10 mg DAILY PO 07/12/24 10:00 07/15/24 08:57 10 MG Aspirin 81 mg DAILY PO 07/12/24 10:00 07/15/24 08:55 81 MG Atorvastatin Calcium 40 mg HS PO 07/12/24 22:00 07/14/24 21:50 40 MG Calcium Acetate 667 mg TIDWMEALS PO 07/12/24 08:00 07/15/24 12:31 667 MG Clopidogrel Bisulfate 75 mg DAILY PO 07/12/24 10:00 Hold 07/13/24 09:19 75 MG Furosemide 40 mg DAILY PO 07/12/24 10:00 07/15/24 08:56 40 MG Gabapentin 100 mg TID PO 07/12/24 06:00 07/15/24 14:34 100 MG Hydralazine HCl 50 mg Q8HR PO 07/12/24 06:00 07/15/24 14:37 50 MG Isosorbide Mononitrate 30 mg DAILY PO 07/12/24 10:00 07/15/24 08:56 30 MG Ranolazine 500 mg BID PO 07/12/24 10:00 07/15/24 10:48 500 MG Metoprolol Succinate 100 mg DAILY PO 07/12/24 10:00 07/15/24 08:57 100 MG Temazepam 15 mg QHSP PRN PO 07/12/24 00:30 07/12/24 22:28 15 MG Ondansetron HCl 4 mg Q4HP PRN IV 07/12/24 00:30 07/15/24 10:49 4 MG Acetaminophen 650 mg Q6HP PRN PO 07/12/24 00:30 Lorazepam 1 mg Q5MINP PRN IV 07/12/24 13:00 Hydromorphone HCl 2 mg Q4HPRN PRN IV 07/13/24 11:45 07/15/24 08:58 2 MG Vancomycin HCl 0 ml @ 0 mls/hr UD IV 07/13/24 20:00 Meropenem 50 ml @ 17 mls/hr DAILY IV 07/14/24 10:00 07/15/24 11:16 17 MLS/HR Diazepam 10 mg DAILY PRN PO 07/14/24 10:45 07/15/24 11:14 10 MG Clonidine HCl 0.2 mg Q6HP PRN PO 07/15/24 12:15 07/15/24 12:32 0.2 MG objective HEENT: No evidence of JVD, no oral ulcers. Pulmonary: Lungs are clear on auscultation bilaterally Cardiovascular S1-S2, no S3 or S4 Abdomen: Bowel sounds positive, soft no rebound tenderness Skin: No rash Neurological: Alert, oriented, no focal weakness Musculoskeletal: Decreased range of motion low back Access left upper arm AV fistula positive bruit and thrill laboratory and microbiology Laboratory Tests 07/15/24 06:33 07/13/24 06:22 Test 07/13/24 06:22 Range/Units Serum Glucose 112 H 74-106 mg/dL Assessment/Plan Assessment: 1. End-stage renal disease on hemodialysis TTS via AV fistula. 2. Intractable low back pain. 3. Diskitis/osteomyelitis of the L4-L5 4. Hypertension uncontrolled 5. Hyperkalemia managed with dialysis. 6. Anemia of end-stage renal disease. 7. CAD. 8. Chronic pain syndrome. Plan slight recommendations: Last dialysis was Tuesday 3 L UF, Continue dialysis TTS Lokelma on the non dialysis days Analgesia. Continue phosphate binders Ortho has been consulted IV antibiotics, infectious disease consultation. Consider MRI of the back if possible. Kody as needed for goal hemoglobin 10 to 11 grams/deciliter. Fluid restriction less than 1 L per day. Neuropathy. Thank you very much for allowing us to participate in the care of this patient. Plan discussed with: Patient TOMÁS RODARTE MD July 15, 2024 14:55
[2024-07-15] MEDS: SODIUM ZIRCONIUM CYCL 10 GM PAK PO ONE (15:16)
[2024-07-16] VITALS (11 sets, daily range): BP systolic 118–148; BP diastolic 60–77; PULSE 65–103; RESP 6–19; TEMP 96.9–98.6; O2SAT 91–100
--- NOTE | 2024-07-16 08:25 | DVHPN2 ---
Progress Note - Dictate Date Seen: July 16, 2024 Medical Necessity Reason Pt with a Central, PICC or Fol: No Subjective No new complaints vital signs Vital Sign Date Time Temp Pulse Resp B/P (MAP) Pulse Ox O2 Delivery O2 Flow Rate FiO2 07/16/24 07:33 69 18 100 07/16/24 07:27 Nasal Cannula* 3 32 07/16/24 06:06 118/71 07/16/24 05:00 97.9 97.9 Total Intake and Output 07/15/24 07/15/24 07/16/24 15:00 23:00 07:00 Intake Total 50 ml 780 ml 210 ml Output Total 335 ml Balance 50 ml 445 ml 210 ml medications Current Medications Medications Dose Ordered Sig/Gerard Route Start Time Stop Time Status Last Admin Dose Admin Albuterol 2.5 mg Q6HPRN PRN NEB 07/12/24 00:30 07/16/24 07:27 2.5 MG Amlodipine Besylate 10 mg DAILY PO 07/12/24 10:00 07/15/24 08:57 10 MG Aspirin 81 mg DAILY PO 07/12/24 10:00 07/15/24 08:55 81 MG Atorvastatin Calcium 40 mg HS PO 07/12/24 22:00 07/15/24 21:48 40 MG Calcium Acetate 667 mg TIDWMEALS PO 07/12/24 08:00 07/15/24 17:55 667 MG Clopidogrel Bisulfate 75 mg DAILY PO 07/12/24 10:00 Hold 07/13/24 09:19 75 MG Furosemide 40 mg DAILY PO 07/12/24 10:00 07/15/24 08:56 40 MG Gabapentin 100 mg TID PO 07/12/24 06:00 07/16/24 06:07 100 MG Hydralazine HCl 50 mg Q8HR PO 07/12/24 06:00 07/16/24 06:06 50 MG Isosorbide Mononitrate 30 mg DAILY PO 07/12/24 10:00 07/15/24 08:56 30 MG Ranolazine 500 mg BID PO 07/12/24 10:00 07/15/24 21:51 500 MG Metoprolol Succinate 100 mg DAILY PO 07/12/24 10:00 07/15/24 08:57 100 MG Temazepam 15 mg QHSP PRN PO 07/12/24 00:30 5/8/25 22:28 15 MG Ondansetron HCl 4 mg Q4HP PRN IV 07/12/24 00:30 07/15/24 10:49 4 MG Acetaminophen 650 mg Q6HP PRN PO 07/12/24 00:30 Lorazepam 1 mg Q5MINP PRN IV 07/12/24 13:00 Hydromorphone HCl 2 mg Q4HPRN PRN IV 07/13/24 11:45 07/15/24 17:55 2 MG Vancomycin HCl 0 ml @ 0 mls/hr UD IV 07/13/24 20:00 Meropenem 50 ml @ 17 mls/hr DAILY IV 07/14/24 10:00 07/15/24 11:16 17 MLS/HR Diazepam 10 mg DAILY PRN PO 07/14/24 10:45 07/15/24 11:14 10 MG Clonidine HCl 0.2 mg Q6HP PRN PO 07/15/24 12:15 07/15/24 12:32 0.2 MG objective Alert and oriented x 3 NAD Lungs CTA CV: RR, S4 gallop Abdomen: soft, NT No leg edema laboratory and microbiology Laboratory Tests 07/15/24 06:33 07/13/24 06:22 Test 07/13/24 06:22 Range/Units Serum Glucose 112 H 74-106 mg/dL Problem List 1. End-stage renal disease on hemodialysis TTS via AV fistula. 2. Intractable low back pain. 3. Diskitis/osteomyelitis of the L4-L5 4. Hypertension uncontrolled 5. Hyperkalemia managed with dialysis. 6. Anemia of end-stage renal disease. 7. CAD. 8. Chronic pain syndrome. Plan slight recommendations: Continue dialysis TTS Lokelma on the non dialysis days Analgesia. Continue phosphate binders Ortho has been consulted IV antibiotics, infectious disease consultation. Consider MRI of the back if possible. Kody as needed for goal hemoglobin 10 to 11 grams/deciliter. Fluid restriction less than 1 L per day. Neuropathy. Plan discussed with: IVORY Enciso MD July 16, 2024 08:25
--- NOTE | 2024-07-16 12:46 | DVHINCON2 ---
Date Seen: July 16, 2024 Referring Physician MD Joe Reason for Consultation Cardiac risk stratification History of Present Illness This is a 59-year-old man who presented to the emergency room via EMS with a chief complaint of right hip pain. The patient complains of right hip pain associated with back pain and inability to ambulate. He has been diagnosed with diskitis/osteomyelitis at L4-L5 and pending orthopedic consultation. Cardiology consulted for cardiac risk stratification prior to invasive procedures. He has a significant medical history for coronary artery disease undergoing a cardiac catheterization and coronary angiogram revealing mild coronary artery disease progression of the RCA, an occluded distal posterolateral branch, and no InStent restenosis of the left anterior descending artery on 02/22/2024. A 12 lead electrocardiogram revealed a sinus rhythm with T-wave inversion to inferior leads and an associated first-degree atrioventricular block. Denies active chest pain, SOB, palpitations, diaphoresis, dizziness, or syncopal events. Denies exertional angina or dyspnea on exertion. Prior to this event, the patient was able to walk with his walker without restrictions. Significant medical history includes severe coronary artery disease undergoing multiple PTCAs including the RCA and LAD x 6 KATHI (on Plavix), ischemic/dilated cardiomyopathy with LVEF at 35%, hypertension, dyslipidemia, type 2 diabetes mellitus, peripheral neuropathy, end-stage renal disease on hemodialysis, COPD with current E cigarette use, and obesity. Denies following up in the outpatient setting with the primary spray gun sizer. Family History: Diabetes mellitus G8 MOTHER, Onset:Unknown G8 FATHER, Onset:Unknown Fibromyalgia G8 MOTHER Hypertension G8 MOTHER G8 FATHER, Onset:Unknown Allergies: Coded Allergies: Penicillins (Verified Allergy, Unknown, 09/19/23) Tetanus Toxoid (Verified Allergy, Unknown, 09/19/23) Home Meds Active Scripts Clopidogrel Bisulfate (CLOPIDOGREL) 75 Mg Tab, 75 MG PO DAILY for 30 Days, #30 TAB Prov:LEÓN COLLINS MD 08/16/23 Reported Medications Patiromer Sorbitex Calcium (Veltassa) 8.4 Gm Pow, 1 PKT PO DAILY 07/12/24 Colchicine (Mitigare) 0.6 Mg Cap, 0.6 MG PO PRN for for gout, CAP 07/12/24 Albuterol Sulfate (VENTOLIN MDI) 90 Mcg Ih, 2 PUFF IN Q6HPRN PRN for wheezing, INH 07/12/24 Losartan Potassium (Cozaar) 100 Mg Tab, 300 MG PO DAILY, TAB 07/12/24 Ipratropium-Albuterol (Ipratropium Murdo/Albut) 1 Jacob Jacob, 1 JACOB IN QIDPRN PRN for SHORTNESS OF BREATH, ML 07/12/24 Colchicine (Colchicine) Pow, 0.6 MG PO Q12HR for 30 Days, MG 04/17/24 Clonidine Hydrochloride (Clonidine Hcl) 0.1 Mg Tab, 1 TAB PO PRN for SBP>160 04/17/24 Furosemide (Lasix) 40 Mg Tab, 40 MG PO DAILY, TAB 03/04/24 Amlodipine Besylate (NORVASC TABLET) 5 Mg Tb, 2 TAB PO DAILY, #30 TAB 5 Refills 03/04/24 Isosorbide Mononitrate (Isosorbide Mononitrate Er) 30 Mg Tab, 60 MG PO DAILY for CAD 09/19/23 Calcium Acetate (Phosphate Bin (Calcium Acetate) 667 Mg Cap, 667 MG PO TIDWM for DIALYSIS, MG 09/19/23 Atorvastatin Calcium (ATORVASTATIN CALCIUM) 40 Mg Tab, 1 TAB PO DAILY for HIGH CHOLESTEROL, #30 TAB 5 Refills 09/19/23 Cvgzbwrowe-Wfyduggeftflwt-Hwed (Breztri Aerosphere 160-9-4.8 Mcg/Act) 1 Aer Aer, 1 AER IN BID for COPD, AER 09/19/23 Albuterol Sulfate (Ventolin) 2.5 Mg/3 Ml Nb, 2.5 MG NEB Q4HP PRN for SHORTNESS OF BREATH, INH 09/19/23 Ranolazine (Ranolazine ER) 500 Mg Tab, 500 MG PO BID for CAD, TAB 09/19/23 Diazepam (VALIUM TABLET) 5 Mg Tb, 2 TAB PO PRN PRN for onset seizure, TAB 08/14/23 Hydralazine Hcl (Hydralazine Hcl) 100 Mg Tab, 1 TAB PO TID, #90 TAB 5 Refills 08/14/23 Gabapentin (Gabapentin) 100 Mg Cap, 2 CAP PO TID PRN for onset seizure , #90 CAP 2 Refills Take with diazepam. 08/14/23 Pantoprazole Sodium Sesquihydr (Protonix) 40 Mg Tab, 40 MG PO QAM, #30 TAB 08/14/23 Aspirin (Aspir-81) 81 Mg Tab, 1 TAB PO QAM, #30 TAB 5 Refills 08/14/23 Allopurinol (ZYLOPRIM TABLET) 100 Mg Tb, 1 TAB PO QAM, #30 TAB 5 Refills 08/14/23 Current Medications Current Medications Medications (Trade) Dose Ordered Sig/Gerard Route PRN Reason Start Time Stop Time Status Last Admin Clonidine HCl (Catapres Tablet) 0.2 mg Q6HP PRN PO SBP>160 07/15/24 12:15 07/15/24 12:32 Vital Signs Vital Signs Date Time Temp Pulse Resp B/P (MAP) Pulse Ox O2 Delivery O2 Flow Rate FiO2 07/16/24 11:02 141/73 07/16/24 10:59 69 16 07/16/24 08:30 96.9 99 96.9 07/16/24 07:27 Nasal Cannula* 3 32 Labs/Diagnostic Data Labs Test 07/16/24 07:13 07/15/24 06:33 07/15/24 03:07 07/13/24 16:20 Range/Units Creatinine 7.29 H 0.700-1.30 mg/dL Glomerular Filtration Rate Calc 8 >90 mL/min Random Vancomycin Level 22.4 H 5-10 ug/mL White Blood Count 6.8 4.4-10.8 10^3/uL Red Blood Count 3.76 L 4.5-5.90 10^6/uL Hemoglobin 11.8 L 13.5-17.5 g/dL Hematocrit 35.0 L 41.0-53.0 % Mean Corpuscular Volume 93.3 80.0-100.0 fL Mean Corpuscular Hemoglobin 31.4 28.0-32.0 pg Mean Corpuscular Hemoglobin Concent 33.7 32.0-36.0 g/dL Red Cell Distribution Width 18.6 H 11.8-14.3 % Platelet Count 135 L 140-450 10^3/uL Mean Platelet Volume 7.3 6.9-10.8 fL Neutrophils (%) (Auto) 75.3 37.0-80.0 % Lymphocytes (%) (Auto) 10.2 10.0-50.0 % Monocytes (%) (Auto) 9.9 0.0-12.0 % Eosinophils (%) (Auto) 3.9 0.0-7.0 % Basophils (%) (Auto) 0.7 0.0-2.0 % Neutrophils # (Auto) 5.1 1.6-8.6 10 ^3/uL Lymphocytes # (Auto) 0.7 0.4-5.4 10 ^3/uL Monocytes # (Auto) 0.7 0-1.3 10 ^3/uL Eosinophils # (Auto) 0.3 0-0.8 10 ^3/uL Basophils # (Auto) 0 0-0.2 10 ^3/uL Nucleated Red Blood Cells 0.0 % POC Glucose 123 H 70-106 mg/dl Erythrocyte Sedimentation Rate 1 0-20 mm/hr C-Reactive Protein High Sensitivity 1.66 H <1.0 mg/dL Test 07/13/24 06:22 07/12/24 17:12 07/12/24 00:45 07/11/24 18:51 Range/Units Sodium Level 136 136-145 mmol/L Potassium Level 5.2 H 3.5-5.1 mmol/L Chloride Level 97 L 98-107 mmol/L Carbon Dioxide Level 29 20-31 mmol/L Anion Gap 10 5-15 Blood Urea Nitrogen 28 #H 9-23 mg/dL BUN/Creatinine Ratio 5.6 L 10.0-20.0 Serum Glucose 112 H 74-106 mg/dL Calcium Level 10.2 8.7-10.4 mg/dL Phosphorus Level 4.5 2.4-5.1 mg/dL Iron Level 53 L 65-175 ug/dL Total Iron Binding Capacity 192 L 250-425 ug/dL Percent Iron Saturation 27.6 20-55 % Ferritin 607.6 H 22-322 ng/mL Hepatitis B Surface Antigen Negative Negative Urine Color Light-yellow Yellow Urine Clarity Clear Clear Urine pH 8.5 5.0-9.0 Urine Specific Schneider 1.010 1.001-1.035 Urine Protein 3+ H Negative Urine Ketones Negative Negative Urine Blood Negative Negative /uL Urine Nitrite Negative Negative Urine Bilirubin Negative Negative Urine Urobilinogen Normal Negative mg/dL Urine Leukocyte Esterase Negative Negative /uL Urine RBC 1 0 - 3 /hpf Urine Microscopic WBC 1 0-3 /HPF Urine Squamous Epithelial Cells Few <5 /hpf Urine Bacteria None seen None Seen /hpf Urine Glucose 3+ H Normal mg/dL Total Bilirubin 0.3 0.2-1.0 mg/dL Aspartate Amino Transferase (AST) 10 L 13-40 U/L Alanine Aminotransferase (ALT) 10 7-40 U/L Alkaline Phosphatase 108 46-116 U/L Total Protein 6.6 5.7-8.2 g/dL Albumin 4.1 3.2-4.8 g/dL Microbiology Date/Time Source Procedure Growth Status 07/13/24 11:26 Blood Blood Culture - Preliminary NO GROWTH AFTER 72 HOURS OF INCUBATION. Resulted 07/12/24 06:10 Nose MRSA Screen - Final Complete Assessment Preprocedural cardiovascular examination Severe coronary artery disease status post PTCA x 6 KATHI (on Plavix) Ischemic/dilated cardiomyopathy with LVEF of 35% Chronic compensated HFrEF, NYHA class II Hypertension Hyperlipidemia Type 2 diabetes mellitus Nicotine dependence Obesity Plan/Recommendation (Dr. Cooper) Echocardiogram revealed LVEF of 35%. Revised cardiac risk index (Maury criteria): 15% risk of , PR or cardiac arrest. Patient has an underlying history of congestive heart failure and coronary artery disease without acute decompensation, and has a fair functional capacity. Per Cardiology standpoint, the patient is at a moderate-risk for moderate-risk surgery. There is no additional cardiac workup indicated prior to surgery. Resume dual-antiplatelet therapy post-procedure. Continue statin and GDMT for CHF as renal function permits. Initiate nicotine patch (found vaping in room). There is no further cardiac work-up indicated. Kindly call with any questions or concerns. Thank you for allowing us to care for this patient. This medical document was created using an electronic medical record system with voice recognition software and computerized dictation system. Although this document has been carefully reviewed, there might still be some phonetic and typographical errors. Occasional wrong-word or ``sound-alike substitutions may have occurred due to the inherent limitations of voice recognition software. These areas are purely typographical due to imperfections of the software programs and do not reflect any compromise in the patient's medical care. Please read the chart carefully and recognize, using context, where these substitutions have occurred. Plan discussed with: Patient, Spouse, Other NYHA Physical activity limitations: Class2(Slight)fatigue,sob (palpitatns, angina w activityv) Date of Service: July 16, 2024 Billing Provider: EVERARDO DIETZ Cardiology Common Codes: [id number] INP/OBS CARE (High) EVERARDO DIETZ July 16, 2024 12:46
--- NOTE | 2024-07-16 13:38 | DVHPN2 ---
Reviewed: Care Plan Changes from previous H/P or p: No Changes Objective Vitals Vital Signs Date Time Temp Pulse Resp B/P (MAP) Pulse Ox O2 Delivery O2 Flow Rate FiO2 07/16/24 12:36 97.8 68 18 143/77 (99) 100 97.8 07/16/24 07:27 Nasal Cannula* 3 32 Intake/Output Intake and Output 07/16/24 07:00 Intake Total 1040 ml Output Total 335 ml Balance 705 ml Intake Oral 890 ml IV Total 150 ml Output Urine Total 335 ml # Voids 1 Medications Current Medications Medications Dose Ordered Sig/Gerard Route Start Time Stop Time Status Last Admin Dose Admin Albuterol 2.5 mg Q6HPRN PRN NEB 07/12/24 00:30 07/16/24 07:27 2.5 MG Amlodipine Besylate 10 mg DAILY PO 07/12/24 10:00 07/16/24 11:00 10 MG Aspirin 81 mg DAILY PO 07/12/24 10:00 07/16/24 11:01 81 MG Atorvastatin Calcium 40 mg HS PO 07/12/24 22:00 07/15/24 21:48 40 MG Calcium Acetate 667 mg TIDWMEALS PO 07/12/24 08:00 07/16/24 12:25 667 MG Clopidogrel Bisulfate 75 mg DAILY PO 07/12/24 10:00 Hold 07/13/24 09:19 75 MG Furosemide 40 mg DAILY PO 07/12/24 10:00 07/16/24 11:00 40 MG Gabapentin 100 mg TID PO 07/12/24 06:00 07/16/24 06:07 100 MG Hydralazine HCl 50 mg Q8HR PO 07/12/24 06:00 07/16/24 06:06 50 MG Isosorbide Mononitrate 30 mg DAILY PO 07/12/24 10:00 07/16/24 11:02 30 MG Ranolazine 500 mg BID PO 07/12/24 10:00 07/16/24 11:01 500 MG Metoprolol Succinate 100 mg DAILY PO 07/12/24 10:00 07/16/24 10:59 100 MG Temazepam 15 mg QHSP PRN PO 07/12/24 00:30 07/12/24 22:28 15 MG Ondansetron HCl 4 mg Q4HP PRN IV 07/12/24 00:30 07/15/24 10:49 4 MG Acetaminophen 650 mg Q6HP PRN PO 07/12/24 00:30 Lorazepam 1 mg Q5MINP PRN IV 07/12/24 13:00 Hydromorphone HCl 2 mg Q4HPRN PRN IV 07/13/24 11:45 07/16/24 10:59 2 MG Vancomycin HCl 0 ml @ 0 mls/hr UD IV 07/13/24 20:00 Meropenem 50 ml @ 17 mls/hr DAILY IV 07/14/24 10:00 07/16/24 11:12 17 MLS/HR Diazepam 10 mg DAILY PRN PO 07/14/24 10:45 07/15/24 11:14 10 MG Clonidine HCl 0.2 mg Q6HP PRN PO 07/15/24 12:15 07/15/24 12:32 0.2 MG Nicotine 1 patch DAILY TD 07/17/24 10:00 Sacubitril/ Valsartan 1 tab BID PO 07/16/24 22:00 Laboratory Results Laboratory Tests 07/13/24 06:22 07/15/24 06:33 07/16/24 07:13 Urinalysis Test 07/12/24 00:45 Urine Color Light-yellow (Yellow) Urine Clarity Clear (Clear) Urine pH 8.5 (5.0-9.0) Urine Specific [place] 1.010 (1.001-1.035) Urine Protein 3+ (Negative) H Urine Ketones Negative (Negative) Urine Blood Negative /uL (Negative) Urine Nitrite Negative (Negative) Urine Bilirubin Negative (Negative) Urine Urobilinogen Normal mg/dL (Negative) Urine Leukocyte Esterase Negative /uL (Negative) Urine RBC 1 /hpf (0 - 3) Urine Microscopic WBC 1 /HPF (0-3) Urine Squamous Epithelial Cells Few /hpf (<5) Urine Bacteria None seen /hpf (None Seen) Urine Glucose 3+ mg/dL (Normal) H Microbiology Microbiology Date/Time Source Procedure Growth Status 07/13/24 11:26 Blood Blood Culture - Preliminary NO GROWTH AFTER 72 HOURS OF INCUBATION. Resulted 07/12/24 06:10 Nose MRSA Screen - Final Complete Labs and/or images reviewed: Labs reviewed by me, Image(s) reviewed by me Assessment/Plan Assessment/Plan End-stage renal disease, dialysis dependent consult for Dr. Byrd appreciated Chronic pain syndrome Right hip pain: Hip x-ray negative Acute osteomyelitis L4-5 by MRI L-spine: Consult by ID Dr. Cronin appreciated, placed on vancomycin and meropenem Spine surgery consult by Dr. Villafana pending possible laminectomy on Tuesday, hold Plavix Accelerated hypertension Acute generalized Weakness Anemia of chronic disease Coronary artery disease status post stents x3 Plavix Acute on chronic CHF exacerbation ejection fraction 35 percent Diabetes History of seizures on gabapentin Hypertension Hyperlipidemia Obesity Chronic current smoker counseling Cardiology Dr. Cooper cleared for spine surgery Time spent 50 minutes Advanced care planning time 20 minutes Patient is full code PCP Scott Wade Previous hospital stay 04/15/24 to 05-02-24 Spoke to patient's five Marycruz [phone] one and advised the current diagnosis management and pending specialist consultations Plan discussed with: Patient My Orders Orders - SHARMIN AN MD Procedure Category Date Status Time * Cardiology Consult CONS 07/16/24 Transmitted 07:54 Date of Service: July 16, 2024 Billing Provider: SHARMIN AN MD Common Visit Codes: [id number] INP/OBS CARE(HIGH) SHARMIN AN MD July 16, 2024 13:38
[2024-07-16] MEDS: NICOTINE 14 MG/24HR TOPICAL PATCH TD ONE (14:33)
--- NOTE | 2024-07-16 14:49 | DVHPN2 ---
Consult Progress Note Date Seen: July 14, 2024 Subjective Patient reports: Other (patient continues to have lower extremity weakness and unable to ambulate . having sever nase[place] and vomitting . end right hip pain that is partially controlled ith pain medicine. no spinal tenderness) Objective vital signs Vital Sign Date Time Temp Pulse Resp B/P (MAP) Pulse Ox O2 Delivery O2 Flow Rate FiO2 07/16/24 12:36 97.8 68 18 143/77 (99) 100 97.8 07/16/24 10:00 Nasal Cannula* 2 28 Total Intake and Output 07/15/24 07/15/24 07/16/24 15:00 23:00 07:00 Intake Total 50 ml 780 ml 210 ml Output Total 335 ml Balance 50 ml 445 ml 210 ml medications Current Medications Medications Dose Ordered Sig/Gerard Route Start Time Stop Time Status Last Admin Dose Admin Albuterol 2.5 mg Q6HPRN PRN NEB 07/12/24 00:30 07/16/24 07:27 2.5 MG Amlodipine Besylate 10 mg DAILY PO 07/12/24 10:00 07/16/24 11:00 10 MG Aspirin 81 mg DAILY PO 07/12/24 10:00 07/16/24 11:01 81 MG Atorvastatin Calcium 40 mg HS PO 07/12/24 22:00 07/15/24 21:48 40 MG Calcium Acetate 667 mg TIDWMEALS PO 07/12/24 08:00 07/16/24 12:25 667 MG Clopidogrel Bisulfate 75 mg DAILY PO 07/12/24 10:00 Hold 07/13/24 09:19 75 MG Furosemide 40 mg DAILY PO 07/12/24 10:00 07/16/24 11:00 40 MG Gabapentin 100 mg TID PO 07/12/24 06:00 07/16/24 06:07 100 MG Hydralazine HCl 50 mg Q8HR PO 07/12/24 06:00 07/16/24 06:06 50 MG Isosorbide Mononitrate 30 mg DAILY PO 07/12/24 10:00 07/16/24 11:02 30 MG Ranolazine 500 mg BID PO 07/12/24 10:00 07/16/24 11:01 500 MG Metoprolol Succinate 100 mg DAILY PO 07/12/24 10:00 07/16/24 10:59 100 MG Temazepam 15 mg QHSP PRN PO 07/12/24 00:30 07/12/24 22:28 15 MG Ondansetron HCl 4 mg Q4HP PRN IV 07/12/24 00:30 07/15/24 10:49 4 MG Acetaminophen 650 mg Q6HP PRN PO 07/12/24 00:30 Lorazepam 1 mg Q5MINP PRN IV 07/12/24 13:00 Hydromorphone HCl 2 mg Q4HPRN PRN IV 07/13/24 11:45 07/16/24 10:59 2 MG Vancomycin HCl 0 ml @ 0 mls/hr UD IV 07/13/24 20:00 Meropenem 50 ml @ 17 mls/hr DAILY IV 07/14/24 10:00 07/16/24 11:12 17 MLS/HR Diazepam 10 mg DAILY PRN PO 07/14/24 10:45 07/15/24 11:14 10 MG Clonidine HCl 0.2 mg Q6HP PRN PO 07/15/24 12:15 07/15/24 12:32 0.2 MG Nicotine 1 patch DAILY TD 07/17/24 10:00 Sacubitril/ Valsartan 1 tab BID PO 07/16/24 22:00 laboratory and microbiology Laboratory Tests 07/16/24 07:13 07/15/24 06:33 07/13/24 06:22 Test 07/13/24 06:22 Range/Units Serum Glucose 112 H 74-106 mg/dL Problem List/Assessment/Plan Problems(with codes): (1) End stage renal disease on dialysis (2) Acute on chronic systolic heart failure (3) Pneumonia, unspecified organism (4) Shortness of breath (5) Chronic back pain (6) ESRD (end stage renal disease) (7) Inability to walk (8) Bilateral leg weakness Problem List/Assessment/Plan Reviewed subjective, clinical findings, assessment and plan as described by Dr. Dugan Mr. Mikhail Mckee is a 59 year old male with a past medical history of active smoking history ,end stage renal disease , bedbound , COPD , seizures, were found to have a right buttock abscess last year that was treated with antibiotics , unclear where this was done . Presented with pneumonia here , klebsiella and MRSA growth here and was treated with vancomycin and cefepime for 6 weeks per culture sensitivities. Now is back with worsening lower extremity weakness and numbness of the legs , right hip pain. Ct was performed on his lower back and he has a progressive discitis and osteomyelitis with increased end plare destruction compression of the thecolphycodema and possible para spinal abscess. 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 Jaimes recommends holding plavix and will continue vancomycin and maripenum. 07/14: Findings of MRI are consistent with discitis and osteomyelitis . pre pertibral abscess appears smaller although not optimally characterized without IV contrast. remains prominent edema in the prevertebral soft tissue centered L4-L5 level edema and pedicals and parals in L4-L5 may be due to extension of osteomyelitis in this location or stress related changes. degenerate disc disease and facet disease in lumbar spine with associate spinal canal subarticular and neuronal phenomenon stenosis above plan: - if theres any epidural component above it is covered by vancomycin and meropenum - recommend blood cultures - recommend said rate and CRP testing - recommend MRI without contrast of lumbar spine to further evaluate osteomyelitis and discitis - will require biopsy of spine and para spinal muscles that are infected and send for bacterial aerobic and anaerobic culturing when patient gets a surgical laminectomy Plan discussed with: Other ENDY CAMP MD July 16, 2024 14:49
--- NOTE | 2024-07-16 14:51 | DVHPN2 ---
Consult Progress Note Date Seen: July 15, 2024 Subjective Patient reports: Other (no fevers or chills , tolerating pain in right hip and is much improved with no more tenderness at the spine or hip ) Objective vital signs Vital Sign Date Time Temp Pulse Resp B/P (MAP) Pulse Ox O2 Delivery O2 Flow Rate FiO2 07/16/24 12:36 97.8 68 18 143/77 (99) 100 97.8 07/16/24 10:00 Nasal Cannula* 2 28 Total Intake and Output 07/15/24 07/15/24 07/16/24 15:00 23:00 07:00 Intake Total 50 ml 780 ml 210 ml Output Total 335 ml Balance 50 ml 445 ml 210 ml medications Current Medications Medications Dose Ordered Sig/Gerard Route Start Time Stop Time Status Last Admin Dose Admin Albuterol 2.5 mg Q6HPRN PRN NEB 07/12/24 00:30 07/16/24 07:27 2.5 MG Amlodipine Besylate 10 mg DAILY PO 07/12/24 10:00 07/16/24 11:00 10 MG Aspirin 81 mg DAILY PO 07/12/24 10:00 07/16/24 11:01 81 MG Atorvastatin Calcium 40 mg HS PO 07/12/24 22:00 07/15/24 21:48 40 MG Calcium Acetate 667 mg TIDWMEALS PO 07/12/24 08:00 07/16/24 12:25 667 MG Clopidogrel Bisulfate 75 mg DAILY PO 07/12/24 10:00 Hold 07/13/24 09:19 75 MG Furosemide 40 mg DAILY PO 07/12/24 10:00 07/16/24 11:00 40 MG Gabapentin 100 mg TID PO 07/12/24 06:00 07/16/24 06:07 100 MG Hydralazine HCl 50 mg Q8HR PO 07/12/24 06:00 07/16/24 06:06 50 MG Isosorbide Mononitrate 30 mg DAILY PO 07/12/24 10:00 07/16/24 11:02 30 MG Ranolazine 500 mg BID PO 07/12/24 10:00 07/16/24 11:01 500 MG Metoprolol Succinate 100 mg DAILY PO 07/12/24 10:00 07/16/24 10:59 100 MG Temazepam 15 mg QHSP PRN PO 07/12/24 00:30 07/12/24 22:28 15 MG Ondansetron HCl 4 mg Q4HP PRN IV 07/12/24 00:30 07/15/24 10:49 4 MG Acetaminophen 650 mg Q6HP PRN PO 07/12/24 00:30 Lorazepam 1 mg Q5MINP PRN IV 07/12/24 13:00 Hydromorphone HCl 2 mg Q4HPRN PRN IV 07/13/24 11:45 07/16/24 10:59 2 MG Vancomycin HCl 0 ml @ 0 mls/hr UD IV 07/13/24 20:00 Meropenem 50 ml @ 17 mls/hr DAILY IV 07/14/24 10:00 07/16/24 11:12 17 MLS/HR Diazepam 10 mg DAILY PRN PO 07/14/24 10:45 07/15/24 11:14 10 MG Clonidine HCl 0.2 mg Q6HP PRN PO 07/15/24 12:15 07/15/24 12:32 0.2 MG Nicotine 1 patch DAILY TD 07/17/24 10:00 Sacubitril/ Valsartan 1 tab BID PO 07/16/24 22:00 laboratory and microbiology Laboratory Tests 07/16/24 07:13 07/15/24 06:33 07/13/24 06:22 Test 07/13/24 06:22 Range/Units Serum Glucose 112 H 74-106 mg/dL Problem List/Assessment/Plan Problems(with codes): (1) ESRD (end stage renal disease) (2) Inability to walk (3) Bilateral leg weakness (4) Acute on chronic systolic heart failure (5) Chronic back pain (6) End stage renal disease on dialysis (7) Pneumonia, unspecified organism Problem List/Assessment/Plan Reviewed subjective, clinical findings, assessment and plan as described by Dr. Dugan Mr. Mikhail Mckee is a 59 year old male with a past medical history of active smoking history ,end stage renal disease , bedbound , COPD , seizures, were found to have a right buttock abscess last year that was treated with antibiotics , unclear where this was done . Presented with pneumonia here , klebsiella and MRSA growth here and was treated with vancomycin and cefepime for 6 weeks per culture sensitivities. Now is back with worsening lower extremity weakness and numbness of the legs , right hip pain. Ct was performed on his lower back and he has a progressive discitis and osteomyelitis with increased end plare destruction compression of the thecolphycodema and possible para spinal abscess. 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 Jaimes recommends holding plavix and will continue vancomycin and maripenum. 07/14: Findings of MRI are consistent with discitis and osteomyelitis . pre pertibral abscess appears smaller although not optimally characterized without IV contrast. remains prominent edema in the prevertebral soft tissue centered L4-L5 level edema and pedicals and parals in L4-L5 may be due to extension of osteomyelitis in this location or stress related changes. degenerate disc disease and facet disease in lumbar spine with associate spinal canal subarticular and neuronal phenomenon stenosis above 07/15: tolerated dialysis yesterday and blood cultures are no growth to date plan: - if theres any epidural component above it is covered by vancomycin and meropenum - recommend blood cultures - recommend said rate and CRP testing - recommend MRI without contrast of lumbar spine to further evaluate osteomyelitis and discitis - will require biopsy of spine and para spinal muscles that are infected and send for bacterial aerobic and anaerobic culturing when patient gets a surgical laminectomy Plan discussed with: Other ENDY CAMP MD July 16, 2024 14:51
[2024-07-16] MEDS: SACUBITRIL-VALSARTAN 24mg/26mg TAB PO SCH (21:08)
[2024-07-17] VITALS (11 sets, daily range): BP systolic 114–169; BP diastolic 65–81; PULSE 61–95; RESP 16–18; TEMP 97.6–99.1; O2SAT 90–100
[2024-07-17 07:18] LABS: Basophils # (auto) 0 10 ^3/uL (0-0.2); Basophils % (auto) 0.6 % (0.0-2.0); Eosinophils # (auto) 0.4 10 ^3/uL (0-0.8); Eosinophils % (auto) 7.1 % (0.0-7.0); Hematocrit 37.2 % (41.0-53.0); Hemoglobin 12.4 g/dL (13.5-17.5); Lymphocytes # (auto) 0.7 10 ^3/uL (0.4-5.4); Lymphocytes % (auto) 13.8 % (10.0-50.0); Mean Corpuscular Hemoglobin 30.7 pg (28.0-32.0); Mean Corpuscular Hgb Conc. 33.3 g/dL (32.0-36.0); Mean Corpuscular Volume 92.3 fL (80.0-100.0); Monocytes # (auto) 0.5 10 ^3/uL (0-1.3); Monocytes % (auto) 10.2 % (0.0-12.0); Neutrophils # (auto) 3.6 10 ^3/uL (1.6-8.6); Neutrophils % (auto) 68.3 % (37.0-80.0); Platelet Count (auto) 141 10^3/uL (140-450); Red Blood Cells 4.03 10^6/uL (4.5-5.90); Red Cell Distribution Width 18.3 % (11.8-14.3); White Blood Cell 5.2 10^3/uL (4.4-10.8)
[2024-07-17] MEDS: SODIUM CHL 0.9% 1000 ML BAG XX ONE ×2 (07:31→08:10)
[2024-07-17] MEDS: SODIUM ZIRCONIUM CYCL 10 GM PAK PO ONE (07:32)
--- NOTE | 2024-07-17 10:00 | ECG ---
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
--- NOTE | 2024-07-17 10:34 | DVHPN2 ---
Progress Note - Dictate Date Seen: July 17, 2024 Has the PT tested + for MRSA If YES, has PT been informed?: No Medical Necessity Reason Pt with a Central, PICC or Fol: No Subjective No new complaints vital signs Vital Sign Date Time Temp Pulse Resp B/P (MAP) Pulse Ox O2 Delivery O2 Flow Rate FiO2 07/17/24 10:17 99 Nasal Cannula* 2 28 07/17/24 09:00 98.1 63 16 169/78 (108) 98.1 Total Intake and Output 07/16/24 07/16/24 07/17/24 14:59 22:59 06:59 Intake Total 50 ml 400 ml 300 ml Output Total 200 ml Balance 50 ml 400 ml 100 ml medications Current Medications Medications Dose Ordered Sig/Gerard Route Start Time Stop Time Status Last Admin Dose Admin Albuterol 2.5 mg Q6HPRN PRN NEB 07/12/24 00:30 07/16/24 07:27 2.5 MG Amlodipine Besylate 10 mg DAILY PO 07/12/24 10:00 07/16/24 11:00 10 MG Aspirin 81 mg DAILY PO 07/12/24 10:00 07/16/24 11:01 81 MG Atorvastatin Calcium 40 mg HS PO 07/12/24 22:00 07/16/24 21:08 40 MG Calcium Acetate 667 mg TIDWMEALS PO 07/12/24 08:00 07/16/24 18:01 667 MG Clopidogrel Bisulfate 75 mg DAILY PO 07/12/24 10:00 Hold 07/13/24 09:19 75 MG Furosemide 40 mg DAILY PO 07/12/24 10:00 07/16/24 11:00 40 MG Gabapentin 100 mg TID PO 07/12/24 06:00 07/17/24 05:01 100 MG Hydralazine HCl 50 mg Q8HR PO 07/12/24 06:00 07/17/24 05:00 50 MG Isosorbide Mononitrate 30 mg DAILY PO 07/12/24 10:00 07/16/24 11:02 30 MG Ranolazine 500 mg BID PO 07/12/24 10:00 07/16/24 21:10 500 MG Metoprolol Succinate 100 mg DAILY PO 07/12/24 10:00 07/16/24 10:59 100 MG Temazepam 15 mg QHSP PRN PO 07/12/24 00:30 07/12/24 22:28 15 MG Ondansetron HCl 4 mg Q4HP PRN IV 07/12/24 00:30 07/17/24 05:48 4 MG Acetaminophen 650 mg Q6HP PRN PO 07/12/24 00:30 Lorazepam 1 mg Q5MINP PRN IV 07/12/24 13:00 Hydromorphone HCl 2 mg Q4HPRN PRN IV 07/13/24 11:45 07/17/24 04:59 2 MG Vancomycin HCl 0 ml @ 0 mls/hr UD IV 07/13/24 20:00 Meropenem 50 ml @ 17 mls/hr DAILY IV 07/14/24 10:00 07/16/24 11:12 17 MLS/HR Diazepam 10 mg DAILY PRN PO 07/14/24 10:45 07/15/24 11:14 10 MG Clonidine HCl 0.2 mg Q6HP PRN PO 07/15/24 12:15 07/15/24 12:32 0.2 MG Nicotine 1 patch DAILY TD 07/17/24 10:00 Sacubitril/ Valsartan 2 tab BID PO 07/17/24 10:00 objective Alert and oriented x 3 NAD Lungs CTA CV: RR, S4 gallop Abdomen: soft, NT No leg edema laboratory and microbiology Laboratory Tests 07/17/24 06:12 07/13/24 06:22 Test 07/13/24 06:22 Range/Units Serum Glucose 112 H 74-106 mg/dL Problem List 1. End-stage renal disease on hemodialysis TTS via AV fistula. 2. Intractable low back pain. 3. Diskitis/osteomyelitis of the L4-L5 4. Hypertension uncontrolled 5. Hyperkalemia managed with dialysis. 6. Anemia of end-stage renal disease. 7. CAD. 8. Chronic pain syndrome. Plan slight recommendations: Patient is having HD this morning UF goal 3 L Lokelma on the non dialysis days Analgesia. Continue phosphate binders Kody as needed for goal hemoglobin 10 to 11 grams/deciliter. Fluid restriction less than 1 L per day. Dietary Evaluation Review Comments: 1) Nepro Carb Steady 240ml daily (ordered per [facility] protocol) 2) Nephro-Katya 1 tab daily 3) continue current POC Expected Outcomes/Goals: To meet at least 75% estimated needs FU 3-5 days Plan discussed with: Patient IVORY LEARY MD July 17, 2024 10:34
[2024-07-17] MEDS: NICOTINE 14 MG/24HR TOPICAL PATCH TD SCH (11:46)
[2024-07-17] MEDS: SACUBITRIL-VALSARTAN 24mg/26mg TAB PO SCH (11:49)
--- NOTE | 2024-07-17 13:38 | DVHPN2 ---
Reviewed: Care Plan Changes from previous H/P or p: No Changes Objective Vitals Vital Signs Date Time Temp Pulse Resp B/P (MAP) Pulse Ox O2 Delivery O2 Flow Rate FiO2 07/17/24 12:38 98.4 62 18 154/79 (104) 90 98.4 07/17/24 10:17 Nasal Cannula* 2 28 Intake/Output Intake and Output 07/17/24 07:00 Intake Total 750 ml Output Total 200 ml Balance 550 ml Intake Oral 700 ml IV Total 50 ml Output Urine Total 200 ml # Voids 2 Medications Current Medications Medications Dose Ordered Sig/Gerard Route Start Time Stop Time Status Last Admin Dose Admin Albuterol 2.5 mg Q6HPRN PRN NEB 07/12/24 00:30 07/16/24 07:27 2.5 MG Amlodipine Besylate 10 mg DAILY PO 07/12/24 10:00 07/17/24 11:47 10 MG Aspirin 81 mg DAILY PO 07/12/24 10:00 07/17/24 11:48 81 MG Atorvastatin Calcium 40 mg HS PO 07/12/24 22:00 07/16/24 21:08 40 MG Calcium Acetate 667 mg TIDWMEALS PO 07/12/24 08:00 07/17/24 11:49 667 MG Clopidogrel Bisulfate 75 mg DAILY PO 07/12/24 10:00 Hold 07/13/24 09:19 75 MG Furosemide 40 mg DAILY PO 07/12/24 10:00 07/17/24 11:48 40 MG Gabapentin 100 mg TID PO 07/12/24 06:00 07/17/24 05:01 100 MG Hydralazine HCl 50 mg Q8HR PO 07/12/24 06:00 07/17/24 05:00 50 MG Isosorbide Mononitrate 30 mg DAILY PO 07/12/24 10:00 07/17/24 11:47 30 MG Ranolazine 500 mg BID PO 07/12/24 10:00 07/17/24 10:00 500 MG Metoprolol Succinate 100 mg DAILY PO 07/12/24 10:00 07/17/24 11:49 100 MG Temazepam 15 mg QHSP PRN PO 07/12/24 00:30 07/12/24 22:28 15 MG Ondansetron HCl 4 mg Q4HP PRN IV 07/12/24 00:30 07/17/24 11:46 4 MG Acetaminophen 650 mg Q6HP PRN PO 07/12/24 00:30 Lorazepam 1 mg Q5MINP PRN IV 07/12/24 13:00 Hydromorphone HCl 2 mg Q4HPRN PRN IV 07/13/24 11:45 07/17/24 11:50 2 MG Vancomycin HCl 0 ml @ 0 mls/hr UD IV 07/13/24 20:00 Meropenem 50 ml @ 17 mls/hr DAILY IV 07/14/24 10:00 07/17/24 11:45 17 MLS/HR Diazepam 10 mg DAILY PRN PO 07/14/24 10:45 07/17/24 11:49 10 MG Clonidine HCl 0.2 mg Q6HP PRN PO 07/15/24 12:15 07/15/24 12:32 0.2 MG Nicotine 1 patch DAILY TD 07/17/24 10:00 07/17/24 11:46 1 PATCH Sacubitril/ Valsartan 2 tab BID PO 07/17/24 10:00 07/17/24 11:49 2 TAB Laboratory Results Laboratory Tests 07/13/24 06:22 07/17/24 06:12 Urinalysis Test 07/12/24 00:45 Urine Color Light-yellow (Yellow) Urine Clarity Clear (Clear) Urine pH 8.5 (5.0-9.0) Urine Specific [place] 1.010 (1.001-1.035) Urine Protein 3+ (Negative) H Urine Ketones Negative (Negative) Urine Blood Negative /uL (Negative) Urine Nitrite Negative (Negative) Urine Bilirubin Negative (Negative) Urine Urobilinogen Normal mg/dL (Negative) Urine Leukocyte Esterase Negative /uL (Negative) Urine RBC 1 /hpf (0 - 3) Urine Microscopic WBC 1 /HPF (0-3) Urine Squamous Epithelial Cells Few /hpf (<5) Urine Bacteria None seen /hpf (None Seen) Urine Glucose 3+ mg/dL (Normal) H Microbiology Microbiology Date/Time Source Procedure Growth Status 07/13/24 11:26 Blood Blood Culture - Preliminary NO GROWTH AFTER 72 HOURS OF INCUBATION. Resulted 07/12/24 06:10 Nose MRSA Screen - Final Complete Labs and/or images reviewed: Labs reviewed by me, Image(s) reviewed by me Assessment/Plan Assessment/Plan End-stage renal disease, dialysis dependent consult for Dr. Byrd appreciated Chronic pain syndrome Right hip pain: Hip x-ray negative Acute osteomyelitis L4-5 by MRI L-spine: Consult by ID Dr. Cronin appreciated, placed on vancomycin and meropenem Spine surgery consult by Dr. Villafana pending possible laminectomy on Tuesday, hold Plavix Accelerated hypertension Acute generalized Weakness Anemia of chronic disease Coronary artery disease status post stents x3 Plavix Acute on chronic CHF exacerbation ejection fraction 35 percent Diabetes History of seizures on gabapentin Hypertension Hyperlipidemia Obesity Chronic current smoker counseling Cardiology Dr. Cooper cleared for spine surgery Time spent 55 minutes Advanced care planning time 20 minutes Patient is full code PCP Scott Wade Previous hospital stay 04/15/24 to 05-02-24 Spoke to patient's five Marycruz [phone] one and advised the current diagnosis management and pending specialist consultations Plan discussed with: Patient Date of Service: July 17, 2024 Billing Provider: SHARMIN AN MD Common Visit Codes: [id number] CARE 30-74 MIN SHARMIN AN MD July 17, 2024 13:38
--- NOTE | 2024-07-17 14:40 | DVHINCON2 ---
Consultation - Spinal Surgery Date Seen: July 13, 2024 Referring Physician Referring Physician Dr. 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4 Gm Pow, 1 PKT PO DAILY 07/12/24 Colchicine (Mitigare) 0.6 Mg Cap, 0.6 MG PO PRN for for gout, CAP 07/12/24 Albuterol Sulfate (VENTOLIN MDI) 90 Mcg Ih, 2 PUFF IN Q6HPRN PRN for wheezing, INH 07/12/24 Losartan Potassium (Cozaar) 100 Mg Tab, 300 MG PO DAILY, TAB 07/12/24 Ipratropium-Albuterol (Ipratropium Pollock/Albut) 1 Jacob Jacob, 1 JACOB IN QIDPRN PRN for SHORTNESS OF BREATH, ML 07/12/24 Colchicine (Colchicine) Pow, 0.6 MG PO Q12HR for 30 Days, MG 04/17/24 Clonidine Hydrochloride (Clonidine Hcl) 0.1 Mg Tab, 1 TAB PO PRN for SBP>160 04/17/24 Furosemide (Lasix) 40 Mg Tab, 40 MG PO DAILY, TAB 03/04/24 Amlodipine Besylate (NORVASC TABLET) 5 Mg Tb, 2 TAB PO DAILY, #30 TAB 5 Refills 03/04/24 Isosorbide Mononitrate (Isosorbide Mononitrate Er) 30 Mg Tab, 60 MG PO DAILY for CAD 09/19/23 Calcium Acetate (Phosphate Bin (Calcium Acetate) 667 Mg Cap, 667 MG PO TIDWM for DIALYSIS, MG 09/19/23 Atorvastatin Calcium (ATORVASTATIN CALCIUM) 40 Mg Tab, 1 TAB PO DAILY for HIGH CHOLESTEROL, #30 TAB 5 Refills 09/19/23 Izjsxtlfjv-Tjrospmvaemzks-Xgcm (Breztri Aerosphere 160-9-4.8 Mcg/Act) 1 Aer Aer, 1 AER IN BID for COPD, AER 09/19/23 Albuterol Sulfate (Ventolin) 2.5 Mg/3 Ml Nb, 2.5 MG NEB Q4HP PRN for SHORTNESS OF BREATH, INH 09/19/23 Ranolazine (Ranolazine ER) 500 Mg Tab, 500 MG PO BID for CAD, TAB 09/19/23 Diazepam (VALIUM TABLET) 5 Mg Tb, 2 TAB PO PRN PRN for onset seizure, TAB 08/14/23 Hydralazine Hcl (Hydralazine Hcl) 100 Mg Tab, 1 TAB PO TID, #90 TAB 5 Refills 08/14/23 Gabapentin (Gabapentin) 100 Mg Cap, 2 CAP PO TID PRN for onset seizure , #90 CAP 2 Refills Take with diazepam. 08/14/23 Pantoprazole Sodium Sesquihydr (Protonix) 40 Mg Tab, 40 MG PO QAM, #30 TAB 08/14/23 Aspirin (Aspir-81) 81 Mg Tab, 1 TAB PO QAM, #30 TAB 5 Refills 08/14/23 Allopurinol (ZYLOPRIM TABLET) 100 Mg Tb, 1 TAB PO QAM, #30 TAB 5 Refills 08/14/23 Review of systems Review of Systems: HEENT:Normal, CVS:Normal, RESPIRATORY:Normal, GI:Normal, :Normal, NEURO:Abnormal Examination Vital signs Vital Signs Date Time Temp Pulse Resp B/P (MAP) Pulse Ox O2 Delivery O2 Flow Rate FiO2 07/17/24 13:53 155/78 07/17/24 12:38 98.4 62 18 90 98.4 07/17/24 10:17 Nasal Cannula* 2 28 Medications Current Medications Medications (Trade) Dose Ordered Sig/Gerard Route PRN Reason Start Time Stop Time Status Last Admin Nicotine (Nicoderm 14MG/ 24HR) 1 patch DAILY TD 07/17/24 10:00 07/17/24 11:46 Sacubitril/ Valsartan (Entresto 24-26 Mg tab) 1 tab BID PO 07/16/24 22:00 07/17/24 07:50 DC 07/16/24 21:08 Sacubitril/ Valsartan (Entresto 24-26 Mg tab) 2 tab BID PO 07/17/24 10:00 07/17/24 11:49 Laboratory Labs Test 07/17/24 06:12 07/15/24 03:07 07/13/24 16:20 07/13/24 06:22 Range/Units White Blood Count 5.2 4.4-10.8 10^3/uL Red Blood Count 4.03 L 4.5-5.90 10^6/uL Hemoglobin 12.4 L 13.5-17.5 g/dL Hematocrit 37.2 L 41.0-53.0 % Mean Corpuscular Volume 92.3 80.0-100.0 fL Mean Corpuscular Hemoglobin 30.7 28.0-32.0 pg Mean Corpuscular Hemoglobin Concent 33.3 32.0-36.0 g/dL Red Cell Distribution Width 18.3 H 11.8-14.3 % Platelet Count 141 140-450 10^3/uL Mean Platelet Volume 7.8 6.9-10.8 fL Neutrophils (%) (Auto) 68.3 37.0-80.0 % Lymphocytes (%) (Auto) 13.8 10.0-50.0 % Monocytes (%) (Auto) 10.2 0.0-12.0 % Eosinophils (%) (Auto) 7.1 H 0.0-7.0 % Basophils (%) (Auto) 0.6 0.0-2.0 % Neutrophils # (Auto) 3.6 1.6-8.6 10 ^3/uL Lymphocytes # (Auto) 0.7 0.4-5.4 10 ^3/uL Monocytes # (Auto) 0.5 0-1.3 10 ^3/uL Eosinophils # (Auto) 0.4 0-0.8 10 ^3/uL Basophils # (Auto) 0 0-0.2 10 ^3/uL Nucleated Red Blood Cells 0.0 % Creatinine 8.39 H 0.700-1.30 mg/dL Glomerular Filtration Rate Calc 7 >90 mL/min Random Vancomycin Level 20.3 H 5-10 ug/mL POC Glucose 123 H 70-106 mg/dl Erythrocyte Sedimentation Rate 1 0-20 mm/hr C-Reactive Protein High Sensitivity 1.66 H <1.0 mg/dL Sodium Level 136 136-145 mmol/L Potassium Level 5.2 H 3.5-5.1 mmol/L Chloride Level 97 L 98-107 mmol/L Carbon Dioxide Level 29 20-31 mmol/L Anion Gap 10 5-15 Blood Urea Nitrogen 28 #H 9-23 mg/dL BUN/Creatinine Ratio 5.6 L 10.0-20.0 Serum Glucose 112 H 74-106 mg/dL Calcium Level 10.2 8.7-10.4 mg/dL Phosphorus Level 4.5 2.4-5.1 mg/dL Iron Level 53 L 65-175 ug/dL Total Iron Binding Capacity 192 L 250-425 ug/dL Percent Iron Saturation 27.6 20-55 % Ferritin 607.6 H 22-322 ng/mL Test 07/12/24 17:12 07/12/24 00:45 07/11/24 18:51 Range/Units Hepatitis B Surface Antigen Negative Negative Urine Color Light-yellow Yellow Urine Clarity Clear Clear Urine pH 8.5 5.0-9.0 Urine Specific [place] 1.010 1.001-1.035 Urine Protein 3+ H Negative Urine Ketones Negative Negative Urine Blood Negative Negative /uL Urine Nitrite Negative Negative Urine Bilirubin Negative Negative Urine Urobilinogen Normal Negative mg/dL Urine Leukocyte Esterase Negative Negative /uL Urine RBC 1 0 - 3 /hpf Urine Microscopic WBC 1 0-3 /HPF Urine Squamous Epithelial Cells Few <5 /hpf Urine Bacteria None seen None Seen /hpf Urine Glucose 3+ H Normal mg/dL Total Bilirubin 0.3 0.2-1.0 mg/dL Aspartate Amino Transferase (AST) 10 L 13-40 U/L Alanine Aminotransferase (ALT) 10 7-40 U/L Alkaline Phosphatase 108 46-116 U/L Total Protein 6.6 5.7-8.2 g/dL Albumin 4.1 3.2-4.8 g/dL Microbiology Date/Time Source Procedure Growth Status 07/13/24 11:26 Blood Blood Culture - Preliminary NO GROWTH AFTER 72 HOURS OF INCUBATION. Resulted 07/12/24 06:10 Nose MRSA Screen - Final Complete Examination: GENERAL:Normal, HEENT:Normal, NECK:Normal, LUNGS:Normal, CVS:Normal, ABDOMEN:Normal, MSK:Abnormal, SKIN:Abnormal, NEURO:Abnormal, :Normal Problem List/Assessment/Plan Problems: (1) Intractable low back pain Assessment and Plan Osteomyelitis that is not responding to iv antibiotics I was asked for a surgical opinion. First of all, he is not healthy whatsoever. The correct surgical option is an L5 laminectomy with wide debridement of no viable tissue and send the biopsy to send for culture He took Plavix until and needs to be off for at least 1 week before any incision can be made. Once medically stable and off Plavix for 7 days and if pt. and agree I will schedule him for a laminectomy/biopsy lumbar spine Plan discussed with Plan discussed with: Patient ANIBAL ARBOLEDA MD July 17, 2024 14:39
--- NOTE | 2024-07-17 22:25 | DVHPN2 ---
Consult Progress Note Date Seen: July 16, 2024 Subjective Patient reports: Other (continues to have severe nausea and vomitting and srammnerign with speech , states all this has been happenign but has been gettign worse these last few weeks , very thin) Objective vital signs Vital Sign Date Time Temp Pulse Resp B/P (MAP) Pulse Ox O2 Delivery O2 Flow Rate FiO2 07/17/24 21:15 61 16 134/71 07/17/24 20:13 100 07/17/24 20:07 Nasal Cannula* 2 28 07/17/24 16:50 98.5 98.5 Total Intake and Output 07/16/24 07/16/24 07/17/24 15:00 23:00 07:00 Intake Total 50 ml 400 ml 300 ml Output Total 200 ml Balance 50 ml 400 ml 100 ml medications Current Medications Medications Dose Ordered Sig/Gerard Route Start Time Stop Time Status Last Admin Dose Admin Albuterol 2.5 mg Q6HPRN PRN NEB 07/12/24 00:30 07/17/24 20:07 2.5 MG Amlodipine Besylate 10 mg DAILY PO 07/12/24 10:00 07/17/24 11:47 10 MG Aspirin 81 mg DAILY PO 07/12/24 10:00 07/17/24 11:48 81 MG Atorvastatin Calcium 40 mg HS PO 07/12/24 22:00 07/17/24 21:12 40 MG Calcium Acetate 667 mg TIDWMEALS PO 07/12/24 08:00 07/17/24 16:51 667 MG Clopidogrel Bisulfate 75 mg DAILY PO 07/12/24 10:00 Hold 07/13/24 09:19 75 MG Furosemide 40 mg DAILY PO 07/12/24 10:00 07/17/24 11:48 40 MG Gabapentin 100 mg TID PO 07/12/24 06:00 07/17/24 21:12 100 MG Hydralazine HCl 50 mg Q8HR PO 07/12/24 06:00 07/17/24 21:11 50 MG Isosorbide Mononitrate 30 mg DAILY PO 07/12/24 10:00 07/17/24 11:47 30 MG Ranolazine 500 mg BID PO 07/12/24 10:00 07/17/24 21:13 500 MG Metoprolol Succinate 100 mg DAILY PO 07/12/24 10:00 07/17/24 11:49 100 MG Temazepam 15 mg QHSP PRN PO 07/12/24 00:30 07/12/24 22:28 15 MG Ondansetron HCl 4 mg Q4HP PRN IV 07/12/24 00:30 07/17/24 21:13 4 MG Acetaminophen 650 mg Q6HP PRN PO 07/12/24 00:30 Lorazepam 1 mg Q5MINP PRN IV 07/12/24 13:00 Hydromorphone HCl 2 mg Q4HPRN PRN IV 07/13/24 11:45 07/17/24 21:15 2 MG Vancomycin HCl 0 ml @ 0 mls/hr UD IV 07/13/24 20:00 Meropenem 50 ml @ 17 mls/hr DAILY IV 07/14/24 10:00 07/17/24 11:45 17 MLS/HR Diazepam 10 mg DAILY PRN PO 07/14/24 10:45 07/17/24 11:49 10 MG Clonidine HCl 0.2 mg Q6HP PRN PO 07/15/24 12:15 07/15/24 12:32 0.2 MG Nicotine 1 patch DAILY TD 07/17/24 10:00 07/17/24 11:46 1 PATCH Sacubitril/ Valsartan 2 tab BID PO 07/17/24 10:00 07/17/24 21:12 2 TAB laboratory and microbiology Laboratory Tests 07/17/24 06:12 07/13/24 06:22 Test 07/13/24 06:22 Range/Units Serum Glucose 112 H 74-106 mg/dL Problem List/Assessment/Plan Problems(with codes): (1) Intractable low back pain (2) Pneumonia, unspecified organism (3) End stage renal disease on dialysis (4) Chronic back pain (5) Acute on chronic systolic heart failure (6) Shortness of breath (7) Bilateral leg weakness (8) Inability to walk Problem List/Assessment/Plan Reviewed subjective, clinical findings, assessment and plan as described by Dr. Dugan Mr. Mikhail Mckee is a 59 year old male with a past medical history of active smoking history ,end stage renal disease , bedbound , COPD , seizures, were found to have a right buttock abscess last year that was treated with antibiotics , unclear where this was done . Presented with pneumonia here , klebsiella and MRSA growth here and was treated with vancomycin and cefepime for 6 weeks per culture sensitivities. Now is back with worsening lower extremity weakness and numbness of the legs , right hip pain. Ct was performed on his lower back and he has a progressive discitis and osteomyelitis with increased end plare destruction compression of the thecolphycodema and possible para spinal abscess. 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 Jaimes recommends holding plavix and will continue vancomycin and maripenum. 07/14: Findings of MRI are consistent with discitis and osteomyelitis . pre pertibral abscess appears smaller although not optimally characterized without IV contrast. remains prominent edema in the prevertebral soft tissue centered L4-L5 level edema and pedicals and parals in L4-L5 may be due to extension of osteomyelitis in this location or stress related changes. degenerate disc disease and facet disease in lumbar spine with associate spinal canal subarticular and neuronal phenomenon stenosis above 07/15: tolerated dialysis yesterday and blood cultures are no growth to date 07/16: unclear if upper neurological symptoms are related to potential spread of infection . plan: - recommend head Ct to rule out potential spread of infection in the head or neck - if theres any epidural component above it is covered by vancomycin and meropenum - recommend blood cultures - recommend said rate and CRP testing - recommend MRI without contrast of lumbar spine to further evaluate osteomyelitis and discitis - will require biopsy of spine and para spinal muscles that are infected and send for bacterial aerobic and anaerobic culturing when patient gets a surgical laminectomy Plan discussed with: Other Dietary Evaluation Review Comments: 1) Nepro Carb Steady 240ml daily (ordered per [facility] protocol) 2) Nephro-Katya 1 tab daily 3) continue current POC Expected Outcomes/Goals: To meet at least 75% estimated needs FU 3-5 days ENDY CAMP MD July 17, 2024 22:25
--- NOTE | 2024-07-17 22:25 | DVHPN2 ---
Consult Progress Note Date Seen: July 17, 2024 Subjective Patient reports: Other (no seizures overnight , does states he has pseudoseizures and he states that these pseudoseizures began when he got initially infected in february and since then has been unable to speak clearly . able to ambulate with alot of dificulty and severe right hip pian and very thin and emaciated ) Objective vital signs Vital Sign Date Time Temp Pulse Resp B/P (MAP) Pulse Ox O2 Delivery O2 Flow Rate FiO2 07/17/24 21:15 61 16 134/71 07/17/24 20:13 100 07/17/24 20:07 Nasal Cannula* 2 28 07/17/24 16:50 98.5 98.5 Total Intake and Output 07/16/24 07/16/24 07/17/24 15:00 23:00 07:00 Intake Total 50 ml 400 ml 300 ml Output Total 200 ml Balance 50 ml 400 ml 100 ml medications Current Medications Medications Dose Ordered Sig/Gerard Route Start Time Stop Time Status Last Admin Dose Admin Albuterol 2.5 mg Q6HPRN PRN NEB 07/12/24 00:30 07/17/24 20:07 2.5 MG Amlodipine Besylate 10 mg DAILY PO 07/12/24 10:00 07/17/24 11:47 10 MG Aspirin 81 mg DAILY PO 07/12/24 10:00 07/17/24 11:48 81 MG Atorvastatin Calcium 40 mg HS PO 07/12/24 22:00 07/17/24 21:12 40 MG Calcium Acetate 667 mg TIDWMEALS PO 07/12/24 08:00 07/17/24 16:51 667 MG Clopidogrel Bisulfate 75 mg DAILY PO 07/12/24 10:00 Hold 07/13/24 09:19 75 MG Furosemide 40 mg DAILY PO 07/12/24 10:00 07/17/24 11:48 40 MG Gabapentin 100 mg TID PO 07/12/24 06:00 07/17/24 21:12 100 MG Hydralazine HCl 50 mg Q8HR PO 07/12/24 06:00 07/17/24 21:11 50 MG Isosorbide Mononitrate 30 mg DAILY PO 07/12/24 10:00 07/17/24 11:47 30 MG Ranolazine 500 mg BID PO 07/12/24 10:00 07/17/24 21:13 500 MG Metoprolol Succinate 100 mg DAILY PO 07/12/24 10:00 07/17/24 11:49 100 MG Temazepam 15 mg QHSP PRN PO 07/12/24 00:30 07/12/24 22:28 15 MG Ondansetron HCl 4 mg Q4HP PRN IV 07/12/24 00:30 07/17/24 21:13 4 MG Acetaminophen 650 mg Q6HP PRN PO 07/12/24 00:30 Lorazepam 1 mg Q5MINP PRN IV 07/12/24 13:00 Hydromorphone HCl 2 mg Q4HPRN PRN IV 07/13/24 11:45 07/17/24 21:15 2 MG Vancomycin HCl 0 ml @ 0 mls/hr UD IV 07/13/24 20:00 Meropenem 50 ml @ 17 mls/hr DAILY IV 07/14/24 10:00 07/17/24 11:45 17 MLS/HR Diazepam 10 mg DAILY PRN PO 07/14/24 10:45 07/17/24 11:49 10 MG Clonidine HCl 0.2 mg Q6HP PRN PO 07/15/24 12:15 07/15/24 12:32 0.2 MG Nicotine 1 patch DAILY TD 07/17/24 10:00 07/17/24 11:46 1 PATCH Sacubitril/ Valsartan 2 tab BID PO 07/17/24 10:00 07/17/24 21:12 2 TAB laboratory and microbiology Laboratory Tests 07/17/24 06:12 07/13/24 06:22 Test 07/13/24 06:22 Range/Units Serum Glucose 112 H 74-106 mg/dL Problem List/Assessment/Plan Problems(with codes): (1) Intractable low back pain (2) Pneumonia, unspecified organism (3) End stage renal disease on dialysis (4) Chronic back pain (5) Acute on chronic systolic heart failure (6) Shortness of breath (7) Bilateral leg weakness (8) Inability to walk (9) ESRD (end stage renal disease) (10) Acute chest pain Problem List/Assessment/Plan Reviewed subjective, clinical findings, assessment and plan as described by Dr. Dugan Mr. Mikhail Mckee is a 59 year old male with a past medical history of active smoking history ,end stage renal disease , bedbound , COPD , seizures, were found to have a right buttock abscess last year that was treated with antibiotics , unclear where this was done . Presented with pneumonia here , klebsiella and MRSA growth here and was treated with vancomycin and cefepime for 6 weeks per culture sensitivities. Now is back with worsening lower extremity weakness and numbness of the legs , right hip pain. Ct was performed on his lower back and he has a progressive discitis and osteomyelitis with increased end plare destruction compression of the thecolphycodema and possible para spinal abscess. 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 Jaimes recommends holding plavix and will continue vancomycin and maripenum. 07/14: Findings of MRI are consistent with discitis and osteomyelitis . pre pertibral abscess appears smaller although not optimally characterized without IV contrast. remains prominent edema in the prevertebral soft tissue centered L4-L5 level edema and pedicals and parals in L4-L5 may be due to extension of osteomyelitis in this location or stress related changes. degenerate disc disease and facet disease in lumbar spine with associate spinal canal subarticular and neuronal phenomenon stenosis above 07/15: tolerated dialysis yesterday and blood cultures are no growth to date 07/16: unclear if upper neurological symptoms are related to potential spread of infection . 07/17: thin and emaciatd , would be high risk for surgery in most scenarios plan: - recommend nutrition consult to optimize patients dietary protein intake - recommend head Ct to rule out potential spread of infection in the head or neck - if theres any epidural component above it is covered by vancomycin and meropenum - recommend blood cultures - recommend said rate and CRP testing - recommend MRI without contrast of lumbar spine to further evaluate osteomyelitis and discitis - will require biopsy of spine and para spinal muscles that are infected and send for bacterial aerobic and anaerobic culturing when patient gets a surgical laminectomy Plan discussed with: Other Dietary Evaluation Review Comments: 1) Nepro Carb Steady 240ml daily (ordered per [facility] protocol) 2) Nephro-Katya 1 tab daily 3) continue current POC Expected Outcomes/Goals: To meet at least 75% estimated needs FU 3-5 days ENDY CAMP MD July 17, 2024 22:25
[2024-07-18] VITALS (11 sets, daily range): BP systolic 129–164; BP diastolic 64–80; PULSE 61–91; RESP 15–18; TEMP 97.2–98.5; O2SAT 94–100
[2024-07-18 07:30] LABS: Basophils # (auto) 0 10 ^3/uL (0-0.2); Basophils % (auto) 0.8 % (0.0-2.0); Eosinophils # (auto) 0.4 10 ^3/uL (0-0.8); Eosinophils % (auto) 6.1 % (0.0-7.0); Lymphocytes # (auto) 0.9 10 ^3/uL (0.4-5.4); Lymphocytes % (auto) 15.8 % (10.0-50.0); Mean Corpuscular Hemoglobin 30.8 pg (28.0-32.0); Mean Corpuscular Hgb Conc. 33.4 g/dL (32.0-36.0); Mean Corpuscular Volume 92.4 fL (80.0-100.0); Monocytes # (auto) 0.8 10 ^3/uL (0-1.3); Monocytes % (auto) 13.4 % (0.0-12.0); Neutrophils # (auto) 3.8 10 ^3/uL (1.6-8.6); Neutrophils % (auto) 63.9 % (37.0-80.0); Nucleated Red Blood Cells % 0.1 %; Platelet Count (auto) 169 10^3/uL (140-450); Red Blood Cells 4.55 10^6/uL (4.5-5.90); Red Cell Distribution Width 18.4 % (11.8-14.3)
--- NOTE | 2024-07-18 09:49 | DVHPN2 ---
Progress Note - Dictate Date Seen: July 18, 2024 Has the PT tested + for MRSA If YES, has PT been informed?: No Medical Necessity Reason Pt with a Central, PICC or Fol: No Subjective No new complaints vital signs Vital Sign Date Time Temp Pulse Resp B/P (MAP) Pulse Ox O2 Delivery O2 Flow Rate FiO2 07/18/24 09:20 98.5 66 17 146/80 (102) 96 98.5 07/18/24 05:57 Room Air* 0 21 Total Intake and Output 07/17/24 07/17/24 07/18/24 15:00 23:00 07:00 Intake Total 500 ml 200 ml Balance 500 ml 200 ml medications Current Medications Medications Dose Ordered Sig/Gerard Route Start Time Stop Time Status Last Admin Dose Admin Albuterol 2.5 mg Q6HPRN PRN NEB 07/12/24 00:30 07/17/24 20:07 2.5 MG Amlodipine Besylate 10 mg DAILY PO 07/12/24 10:00 07/17/24 11:47 10 MG Aspirin 81 mg DAILY PO 07/12/24 10:00 07/17/24 11:48 81 MG Atorvastatin Calcium 40 mg HS PO 07/12/24 22:00 07/17/24 21:12 40 MG Calcium Acetate 667 mg TIDWMEALS PO 07/12/24 08:00 07/17/24 16:51 667 MG Clopidogrel Bisulfate 75 mg DAILY PO 07/12/24 10:00 Hold 07/13/24 09:19 75 MG Furosemide 40 mg DAILY PO 07/12/24 10:00 07/17/24 11:48 40 MG Gabapentin 100 mg TID PO 07/12/24 06:00 07/18/24 05:40 100 MG Hydralazine HCl 50 mg Q8HR PO 07/12/24 06:00 07/18/24 05:40 50 MG Isosorbide Mononitrate 30 mg DAILY PO 07/12/24 10:00 07/17/24 11:47 30 MG Ranolazine 500 mg BID PO 07/12/24 10:00 07/17/24 21:13 500 MG Metoprolol Succinate 100 mg DAILY PO 07/12/24 10:00 07/17/24 11:49 100 MG Temazepam 15 mg QHSP PRN PO 07/12/24 00:30 07/12/24 22:28 15 MG Ondansetron HCl 4 mg Q4HP PRN IV 07/12/24 00:30 07/18/24 05:41 4 MG Acetaminophen 650 mg Q6HP PRN PO 07/12/24 00:30 Lorazepam 1 mg Q5MINP PRN IV 07/12/24 13:00 Hydromorphone HCl 2 mg Q4HPRN PRN IV 07/13/24 11:45 07/18/24 05:42 2 MG Vancomycin HCl 0 ml @ 0 mls/hr UD IV 07/13/24 20:00 Meropenem 50 ml @ 17 mls/hr DAILY IV 07/14/24 10:00 07/17/24 11:45 17 MLS/HR Diazepam 10 mg DAILY PRN PO 07/14/24 10:45 07/17/24 11:49 10 MG Clonidine HCl 0.2 mg Q6HP PRN PO 07/15/24 12:15 07/15/24 12:32 0.2 MG Nicotine 1 patch DAILY TD 07/17/24 10:00 07/17/24 11:46 1 PATCH Sacubitril/ Valsartan 2 tab BID PO 07/17/24 10:00 07/17/24 21:12 2 TAB objective Alert and oriented x 3 NAD Lungs CTA CV: RR, S4 gallop Abdomen: soft, NT No leg edema laboratory and microbiology Laboratory Tests 07/18/24 06:11 07/13/24 06:22 Test 07/13/24 06:22 Range/Units Serum Glucose 112 H 74-106 mg/dL Problem List 1. End-stage renal disease on hemodialysis TTS via AV fistula. 2. Intractable low back pain. 3. Diskitis/osteomyelitis of the L4-L5 4. Hypertension uncontrolled 5. Hyperkalemia managed with dialysis. 6. Anemia of end-stage renal disease. 7. CAD. 8. Chronic pain syndrome. Plan slight recommendations: HD on TTS schedule Lokelma on the non dialysis days Analgesia. Continue phosphate binders Kody as needed for goal hemoglobin 10 to 11 grams/deciliter. Fluid restriction less than 1 L per day. DC planning Dietary Evaluation Review Comments: 1) Nepro Carb Steady 240ml daily (ordered per [facility] protocol) 2) Nephro-Katya 1 tab daily 3) continue current POC Expected Outcomes/Goals: To meet at least 75% estimated needs FU 3-5 days Plan discussed with: Patient IVORY LEARY MD July 18, 2024 09:49
[2024-07-18 10:10] LABS: Anion Gap 16 (5-15); Calcium 10.6 mg/dL (8.7-10.4); Carbon Dioxide 28 mmol/L (20-31); Chloride 92 mmol/L (98-107); Sodium 136 mmol/L (136-145)
[2024-07-18 10:16] LABS: BUN/Creatinine Ratio 5.3 (10.0-20.0)
[2024-07-18 10:17] LABS: Blood Urea Nitrogen 35 mg/dL (9-23); Glucose 110 mg/dL (74-106)
--- NOTE | 2024-07-18 11:45 | DVHPN2 ---
Reviewed: Care Plan Changes from previous H/P or p: No Changes Objective Vitals Vital Signs Date Time Temp Pulse Resp B/P (MAP) Pulse Ox O2 Delivery O2 Flow Rate FiO2 07/18/24 11:08 66 17 146/80 07/18/24 09:20 98.5 96 98.5 07/18/24 05:57 Room Air* 0 21 Intake/Output Intake and Output 07/18/24 07:00 Intake Total 700 ml Balance 700 ml Intake Oral 650 ml IV Total 50 ml # Voids 1 Medications Current Medications Medications Dose Ordered Sig/Gerard Route Start Time Stop Time Status Last Admin Dose Admin Albuterol 2.5 mg Q6HPRN PRN NEB 07/12/24 00:30 07/17/24 20:07 2.5 MG Amlodipine Besylate 10 mg DAILY PO 07/12/24 10:00 07/18/24 10:48 10 MG Aspirin 81 mg DAILY PO 07/12/24 10:00 07/18/24 10:48 81 MG Atorvastatin Calcium 40 mg HS PO 07/12/24 22:00 07/17/24 21:12 40 MG Calcium Acetate 667 mg TIDWMEALS PO 07/12/24 08:00 07/17/24 16:51 667 MG Clopidogrel Bisulfate 75 mg DAILY PO 07/12/24 10:00 Hold 07/13/24 09:19 75 MG Furosemide 40 mg DAILY PO 07/12/24 10:00 07/18/24 10:50 40 MG Gabapentin 100 mg TID PO 07/12/24 06:00 07/18/24 05:40 100 MG Hydralazine HCl 50 mg Q8HR PO 07/12/24 06:00 07/18/24 05:40 50 MG Isosorbide Mononitrate 30 mg DAILY PO 07/12/24 10:00 07/18/24 10:50 30 MG Ranolazine 500 mg BID PO 07/12/24 10:00 07/18/24 10:46 500 MG Metoprolol Succinate 100 mg DAILY PO 07/12/24 10:00 07/18/24 10:47 100 MG Temazepam 15 mg QHSP PRN PO 07/12/24 00:30 07/12/24 22:28 15 MG Ondansetron HCl 4 mg Q4HP PRN IV 07/12/24 00:30 07/18/24 11:06 4 MG Acetaminophen 650 mg Q6HP PRN PO 07/12/24 00:30 Lorazepam 1 mg Q5MINP PRN IV 07/12/24 13:00 Hydromorphone HCl 2 mg Q4HPRN PRN IV 07/13/24 11:45 07/18/24 11:08 2 MG Vancomycin HCl 0 ml @ 0 mls/hr UD IV 07/13/24 20:00 Meropenem 50 ml @ 17 mls/hr DAILY IV 07/14/24 10:00 07/18/24 10:51 17 MLS/HR Diazepam 10 mg DAILY PRN PO 07/14/24 10:45 07/17/24 11:49 10 MG Clonidine HCl 0.2 mg Q6HP PRN PO 07/15/24 12:15 07/15/24 12:32 0.2 MG Nicotine 1 patch DAILY TD 07/17/24 10:00 07/18/24 11:12 1 PATCH Sacubitril/ Valsartan 2 tab BID PO 07/17/24 10:00 07/18/24 10:48 2 TAB Laboratory Results Laboratory Tests 07/18/24 06:11 Chemistry Test 07/18/24 06:11 Calcium Level 10.6 mg/dL (8.7-10.4) H Urinalysis Test 07/12/24 00:45 Urine Color Light-yellow (Yellow) Urine Clarity Clear (Clear) Urine pH 8.5 (5.0-9.0) Urine Specific [place] 1.010 (1.001-1.035) Urine Protein 3+ (Negative) H Urine Ketones Negative (Negative) Urine Blood Negative /uL (Negative) Urine Nitrite Negative (Negative) Urine Bilirubin Negative (Negative) Urine Urobilinogen Normal mg/dL (Negative) Urine Leukocyte Esterase Negative /uL (Negative) Urine RBC 1 /hpf (0 - 3) Urine Microscopic WBC 1 /HPF (0-3) Urine Squamous Epithelial Cells Few /hpf (<5) Urine Bacteria None seen /hpf (None Seen) Urine Glucose 3+ mg/dL (Normal) H Microbiology Microbiology Date/Time Source Procedure Growth Status 07/13/24 11:26 Blood Blood Culture - Final NO GROWTH AFTER 5 DAYS OF INCUBATION. Complete 07/12/24 06:10 Nose MRSA Screen - Final Complete Labs and/or images reviewed: Labs reviewed by me, Image(s) reviewed by me Assessment/Plan Assessment/Plan End-stage renal disease, dialysis dependent consult for Dr. Byrd appreciated Chronic pain syndrome Right hip pain: Hip x-ray negative Acute osteomyelitis L4-5 by MRI L-spine: Consult by ID Dr. Cronin appreciated, placed on vancomycin and meropenem Spine surgery consult by Dr. Villafana appreciated planning for L- 5 laminectomy on Accelerated hypertension Acute generalized Weakness Anemia of chronic disease Coronary artery disease status post stents x3 Plavix Acute on chronic CHF exacerbation ejection fraction 35 percent Diabetes History of seizures on gabapentin Hypertension Hyperlipidemia Obesity Chronic current smoker counseling Cardiology Dr. Cooper cleared for spine surgery Time spent 55 minutes Advanced care planning time 20 minutes Patient is full code PCP Scott Wade Previous hospital stay 04/15/24 to 05-02-24 Spoke to patient's [facility] [phone] one and advised the current diagnosis management and pending specialist consultations Plan discussed with: Patient My Orders Orders - SHARMIN AN MD Procedure Category Date Status Time ConsultdrNicolas Mason CONS 07/17/24 Transmitted Paige(Spine) 18:03 Date of Service: July 18, 2024 Billing Provider: SHARMIN AN MD Common Visit Codes: [id number] INP/OBS CARE(HIGH) SHARMIN AN MD July 18, 2024 11:45
[2024-07-18] MEDS: VANCOMYCIN 500mg/100mL 100 ML IV ONE (22:08)
[2024-07-19] VITALS (10 sets, daily range): BP systolic 103–137; BP diastolic 57–69; PULSE 58–68; RESP 15–20; TEMP 97.5–98.1; O2SAT 95–100
[2024-07-19] MEDS: LORazepam 2MG/ML-1ML VIAL IV PRN (05:18)
[2024-07-19 07:41] LABS: INR 1.04 (0.9-1.15); Partial Thromboplastin Time 38.2 SEC (24.5-34.5)
[2024-07-19 07:47] LABS: Basophils # (auto) 0 10 ^3/uL (0-0.2); Basophils % (auto) 0.8 % (0.0-2.0); Eosinophils # (auto) 0.4 10 ^3/uL (0-0.8); Eosinophils % (auto) 6.8 % (0.0-7.0); Hematocrit 38.8 % (41.0-53.0); Hemoglobin 12.9 g/dL (13.5-17.5); Lymphocytes % (auto) 18.1 % (10.0-50.0); Mean Corpuscular Hemoglobin 30.7 pg (28.0-32.0); Mean Corpuscular Hgb Conc. 33.2 g/dL (32.0-36.0); Mean Corpuscular Volume 92.6 fL (80.0-100.0); Monocytes # (auto) 0.9 10 ^3/uL (0-1.3); Monocytes % (auto) 16.1 % (0.0-12.0); Neutrophils # (auto) 3.2 10 ^3/uL (1.6-8.6); Neutrophils % (auto) 58.2 % (37.0-80.0); Nucleated Red Blood Cells % 0.2 %; Platelet Count (auto) 138 10^3/uL (140-450); Red Blood Cells 4.18 10^6/uL (4.5-5.90); Red Cell Distribution Width 18.1 % (11.8-14.3); White Blood Cell 5.4 10^3/uL (4.4-10.8)
--- NOTE | 2024-07-19 11:28 | DVHPN2 ---
Reviewed: Care Plan Changes from previous H/P or p: No Changes Objective Vitals Vital Signs Date Time Temp Pulse Resp B/P (MAP) Pulse Ox O2 Delivery O2 Flow Rate FiO2 07/19/24 09:00 98.1 58 20 123/68 (86) 95 98.1 07/18/24 21:19 Room Air* 0 21 Intake/Output Intake and Output 07/19/24 07:00 Intake Total 750 ml Output Total 850 ml Balance -100 ml Intake Oral 700 ml IV Total 50 ml Output Urine Total 850 ml # Voids 2 # Bowel Movements 1 Medications Current Medications Medications Dose Ordered Sig/Gerard Route Start Time Stop Time Status Last Admin Dose Admin Albuterol 2.5 mg Q6HPRN PRN NEB 07/12/24 00:30 07/17/24 20:07 2.5 MG Amlodipine Besylate 10 mg DAILY PO 07/12/24 10:00 07/18/24 10:48 10 MG Aspirin 81 mg DAILY PO 07/12/24 10:00 07/19/24 10:48 81 MG Atorvastatin Calcium 40 mg HS PO 07/12/24 22:00 07/18/24 21:54 40 MG Calcium Acetate 667 mg TIDWMEALS PO 07/12/24 08:00 07/18/24 12:05 667 MG Clopidogrel Bisulfate 75 mg DAILY PO 07/12/24 10:00 Hold 07/13/24 09:19 75 MG Furosemide 40 mg DAILY PO 07/12/24 10:00 07/18/24 10:50 40 MG Gabapentin 100 mg TID PO 07/12/24 06:00 07/18/24 21:54 100 MG Hydralazine HCl 50 mg Q8HR PO 07/12/24 06:00 07/18/24 21:56 50 MG Isosorbide Mononitrate 30 mg DAILY PO 07/12/24 10:00 07/18/24 10:50 30 MG Ranolazine 500 mg BID PO 07/12/24 10:00 07/18/24 21:55 500 MG Metoprolol Succinate 100 mg DAILY PO 07/12/24 10:00 07/18/24 10:47 100 MG Ondansetron HCl 4 mg Q4HP PRN IV 07/12/24 00:30 07/19/24 02:32 4 MG Acetaminophen 650 mg Q6HP PRN PO 07/12/24 00:30 Lorazepam 1 mg Q5MINP PRN IV 07/12/24 13:00 07/19/24 05:18 1 MG Hydromorphone HCl 2 mg Q4HPRN PRN IV 07/13/24 11:45 07/19/24 02:34 2 MG Vancomycin HCl 0 ml @ 0 mls/hr UD IV 07/13/24 20:00 Meropenem 50 ml @ 17 mls/hr DAILY IV 07/14/24 10:00 07/19/24 10:50 17 MLS/HR Diazepam 10 mg DAILY PRN PO 07/14/24 10:45 07/17/24 11:49 10 MG Clonidine HCl 0.2 mg Q6HP PRN PO 07/15/24 12:15 07/18/24 19:13 0.2 MG Nicotine 1 patch DAILY TD 07/17/24 10:00 07/19/24 10:49 1 PATCH Sacubitril/ Valsartan 2 tab BID PO 07/17/24 10:00 07/18/24 21:54 2 TAB Laboratory Results Laboratory Tests 07/18/24 06:11 07/19/24 06:29 Coagulation Test 07/19/24 06:29 Prothrombin Time 11.0 sec (9.3-11.8) Prothrombin Time INR 1.04 (0.9-1.15) Activated Partial Thromboplast Time 38.2 SEC (24.5-34.5) H Urinalysis Test 07/12/24 00:45 Urine Color Light-yellow (Yellow) Urine Clarity Clear (Clear) Urine pH 8.5 (5.0-9.0) Urine Specific [place] 1.010 (1.001-1.035) Urine Protein 3+ (Negative) H Urine Ketones Negative (Negative) Urine Blood Negative /uL (Negative) Urine Nitrite Negative (Negative) Urine Bilirubin Negative (Negative) Urine Urobilinogen Normal mg/dL (Negative) Urine Leukocyte Esterase Negative /uL (Negative) Urine RBC 1 /hpf (0 - 3) Urine Microscopic WBC 1 /HPF (0-3) Urine Squamous Epithelial Cells Few /hpf (<5) Urine Bacteria None seen /hpf (None Seen) Urine Glucose 3+ mg/dL (Normal) H Microbiology Microbiology Date/Time Source Procedure Growth Status 07/13/24 11:26 Blood Blood Culture - Final NO GROWTH AFTER 5 DAYS OF INCUBATION. Complete 07/12/24 06:10 Nose MRSA Screen - Final Complete Labs and/or images reviewed: Labs reviewed by me, Image(s) reviewed by me Assessment/Plan Assessment/Plan Chronic pain syndrome Right hip pain: Hip x-ray negative Acute osteomyelitis L4-5 by MRI L-spine: Consult by ID Dr. Cronin appreciated, placed on vancomycin and meropenem Spine surgery consult by Dr. Villafana appreciated planning for L- 5 laminectomy today ESRD on hemodialysis by Dr. Byrd Accelerated hypertension Acute generalized Weakness Anemia of chronic disease Coronary artery disease status post stents x3 Plavix Acute on chronic CHF exacerbation ejection fraction 35 percent Diabetes History of seizures on gabapentin Hypertension Hyperlipidemia Obesity Chronic current smoker counseling Cardiology Dr. Cooper cleared for spine surgery Time spent 55 minutes Advanced care planning time 20 minutes Patient is full code PCP Scott Wade Previous hospital stay 04/15/24 to 05-02-24 Spoke to patient's [facility] [phone] one and advised the current diagnosis management Plan discussed with: Patient My Orders Orders - SHARMIN AN MD Procedure Category Date Status Time Npo (Nothing By DIET 07/19/24 Transmitted Mouth) Diet Breakfast Electrocardigram EKG 07/19/24 Logged 08:15 Troponin-I Hs LAB 07/19/24 Logged 11:22 Date of Service: July 19, 2024 Billing Provider: SHARMIN AN MD Common Visit Codes: [id number] INP/OBS CARE(HIGH) SHARMIN AN MD July 19, 2024 11:28
--- NOTE | 2024-07-19 12:29 | DVH ---
INDICATION: Pre-op TECHNIQUE: Frontal view of the chest. COMPARISON: XY CHEST PORTABLE on DOS: 05/02/24, XY CHEST XRAY 1 VIEW on DOS: 04/15/24, XY CHEST XRAY 1 V IEW on DOS: 03/10/24, XY CHEST PORTABLE on DOS: 03/08/24, XY CHEST PORTABLE on DOS: 03/04/24 FINDINGS: Findings:. The heart and mediastinal contours are grossly unremarkable. There is no evidence of pleu ral disease. The lungs are clear. The bony structures of the chest are intact without fracture. IMPRESSION: 1. No evidence of acute disease.
--- NOTE | 2024-07-19 14:00 | DVHPN2 ---
Progress Note - Dictate Date Seen: July 19, 2024 Has the PT tested + for MRSA If YES, has PT been informed?: No Medical Necessity Reason Pt with a Central, PICC or Fol: No Subjective No new complaints vital signs Vital Sign Date Time Temp Pulse Resp B/P (MAP) Pulse Ox O2 Delivery O2 Flow Rate FiO2 07/19/24 13:33 137/68 07/19/24 13:30 65 07/19/24 10:00 98 Nasal Cannula* 2 28 07/19/24 09:00 98.1 20 98.1 Total Intake and Output 07/18/24 07/18/24 07/19/24 15:00 23:00 07:00 Intake Total 50 ml 500 ml 200 ml Output Total 850 ml Balance 50 ml -350 ml 200 ml medications Current Medications Medications Dose Ordered Sig/Gerard Route Start Time Stop Time Status Last Admin Dose Admin Albuterol 2.5 mg Q6HPRN PRN NEB 07/12/24 00:30 07/17/24 20:07 2.5 MG Amlodipine Besylate 10 mg DAILY PO 07/12/24 10:00 07/19/24 13:32 10 MG Aspirin 81 mg DAILY PO 07/12/24 10:00 07/19/24 10:48 81 MG Atorvastatin Calcium 40 mg HS PO 07/12/24 22:00 07/18/24 21:54 40 MG Calcium Acetate 667 mg TIDWMEALS PO 07/12/24 08:00 07/18/24 12:05 667 MG Clopidogrel Bisulfate 75 mg DAILY PO 07/12/24 10:00 Hold 07/13/24 09:19 75 MG Furosemide 40 mg DAILY PO 07/12/24 10:00 07/19/24 13:33 40 MG Gabapentin 100 mg TID PO 07/12/24 06:00 07/18/24 21:54 100 MG Hydralazine HCl 50 mg Q8HR PO 07/12/24 06:00 07/18/24 21:56 50 MG Isosorbide Mononitrate 30 mg DAILY PO 07/12/24 10:00 07/19/24 13:29 30 MG Ranolazine 500 mg BID PO 07/12/24 10:00 07/19/24 13:32 500 MG Metoprolol Succinate 100 mg DAILY PO 07/12/24 10:00 07/19/24 13:30 100 MG Ondansetron HCl 4 mg Q4HP PRN IV 07/12/24 00:30 07/19/24 02:32 4 MG Acetaminophen 650 mg Q6HP PRN PO 07/12/24 00:30 Lorazepam 1 mg Q5MINP PRN IV 07/12/24 13:00 07/19/24 05:18 1 MG Hydromorphone HCl 2 mg Q4HPRN PRN IV 07/13/24 11:45 07/19/24 02:34 2 MG Vancomycin HCl 0 ml @ 0 mls/hr UD IV 07/13/24 20:00 Meropenem 50 ml @ 17 mls/hr DAILY IV 07/14/24 10:00 07/19/24 10:50 17 MLS/HR Diazepam 10 mg DAILY PRN PO 07/14/24 10:45 07/17/24 11:49 10 MG Clonidine HCl 0.2 mg Q6HP PRN PO 07/15/24 12:15 07/18/24 19:13 0.2 MG Nicotine 1 patch DAILY TD 07/17/24 10:00 07/19/24 10:49 1 PATCH Sacubitril/ Valsartan 2 tab BID PO 07/17/24 10:00 07/19/24 13:32 2 TAB objective Alert and oriented x 3 NAD Lungs CTA CV: RR, S4 gallop Abdomen: soft, NT No leg edema laboratory and microbiology Laboratory Tests 07/19/24 06:29 07/18/24 06:11 Test 07/18/24 06:11 Range/Units Serum Glucose 110 H 74-106 mg/dL Problem List 1. End-stage renal disease on hemodialysis TTS via AV fistula. 2. Intractable low back pain. 3. Diskitis/osteomyelitis of the L4-L5, scheduled for laminectomy 4. Hypertension uncontrolled 5. Hyperkalemia managed with dialysis. 6. Anemia of end-stage renal disease. 7. CAD. 8. Chronic pain syndrome. Plan slight recommendations: HD on TTS schedule Lokelma on the non dialysis days Analgesia. Continue phosphate binders Kody as needed for goal hemoglobin 10 to 11 grams/deciliter. Fluid restriction less than 1 L per day. DC planning Dietary Evaluation Review Comments: 1) Nepro Carb Steady 240ml daily (ordered per [facility] protocol) 2) Nephro-Katya 1 tab daily 3) continue current POC Expected Outcomes/Goals: To meet at least 75% estimated needs FU 3-5 days Plan discussed with: Patient IVORY LEARY MD July 19, 2024 14:00
--- NOTE | 2024-07-19 17:26 | DVHPN2 ---
Consult Progress Note Date Seen: July 18, 2024 Subjective Patient reports: Other (continues to have nausea and vomitting and denies any marijuana or drug use . SOB , vancomycin levels are therapeutic ) Objective vital signs Vital Sign Date Time Temp Pulse Resp B/P (MAP) Pulse Ox O2 Delivery O2 Flow Rate FiO2 07/19/24 16:40 97.9 68 18 103/57 (72) 96 97.9 07/19/24 10:00 Nasal Cannula* 2 28 Total Intake and Output 07/18/24 07/18/24 07/19/24 15:00 23:00 07:00 Intake Total 50 ml 500 ml 200 ml Output Total 850 ml Balance 50 ml -350 ml 200 ml medications Current Medications Medications Dose Ordered Sig/Gerard Route Start Time Stop Time Status Last Admin Dose Admin Albuterol 2.5 mg Q6HPRN PRN NEB 07/12/24 00:30 07/17/24 20:07 2.5 MG Amlodipine Besylate 10 mg DAILY PO 07/12/24 10:00 07/19/24 13:32 10 MG Aspirin 81 mg DAILY PO 07/12/24 10:00 07/19/24 10:48 81 MG Atorvastatin Calcium 40 mg HS PO 07/12/24 22:00 07/18/24 21:54 40 MG Calcium Acetate 667 mg TIDWMEALS PO 07/12/24 08:00 07/18/24 12:05 667 MG Clopidogrel Bisulfate 75 mg DAILY PO 07/12/24 10:00 Hold 07/13/24 09:19 75 MG Furosemide 40 mg DAILY PO 07/12/24 10:00 07/19/24 13:33 40 MG Gabapentin 100 mg TID PO 07/12/24 06:00 07/19/24 14:27 100 MG Hydralazine HCl 50 mg Q8HR PO 07/12/24 06:00 07/19/24 14:27 50 MG Isosorbide Mononitrate 30 mg DAILY PO 07/12/24 10:00 07/19/24 13:29 30 MG Ranolazine 500 mg BID PO 07/12/24 10:00 07/19/24 13:32 500 MG Metoprolol Succinate 100 mg DAILY PO 07/12/24 10:00 07/19/24 13:30 100 MG Ondansetron HCl 4 mg Q4HP PRN IV 07/12/24 00:30 07/19/24 02:32 4 MG Acetaminophen 650 mg Q6HP PRN PO 07/12/24 00:30 Lorazepam 1 mg Q5MINP PRN IV 07/12/24 13:00 07/19/24 05:18 1 MG Hydromorphone HCl 2 mg Q4HPRN PRN IV 07/13/24 11:45 07/19/24 02:34 2 MG Vancomycin HCl 0 ml @ 0 mls/hr UD IV 07/13/24 20:00 Meropenem 50 ml @ 17 mls/hr DAILY IV 07/14/24 10:00 07/19/24 10:50 17 MLS/HR Diazepam 10 mg DAILY PRN PO 07/14/24 10:45 07/17/24 11:49 10 MG Clonidine HCl 0.2 mg Q6HP PRN PO 07/15/24 12:15 07/18/24 19:13 0.2 MG Nicotine 1 patch DAILY TD 07/17/24 10:00 07/19/24 10:49 1 PATCH Sacubitril/ Valsartan 2 tab BID PO 07/17/24 10:00 07/19/24 13:32 2 TAB laboratory and microbiology Laboratory Tests 07/19/24 06:29 07/18/24 06:11 Test 07/18/24 06:11 Range/Units Serum Glucose 110 H 74-106 mg/dL Problem List/Assessment/Plan Problems(with codes): (1) Acute chest pain (2) Intractable low back pain (3) Pneumonia, unspecified organism (4) Chronic back pain (5) End stage renal disease on dialysis (6) Acute on chronic systolic heart failure (7) Shortness of breath Problem List/Assessment/Plan Reviewed subjective, clinical findings, assessment and plan as described by Dr. Dugan Mr. Mikhail Mckee is a 59 year old male with a past medical history of active smoking history ,end stage renal disease , bedbound , COPD , seizures, were found to have a right buttock abscess last year that was treated with antibiotics , unclear where this was done . Presented with pneumonia here , klebsiella and MRSA growth here and was treated with vancomycin and cefepime for 6 weeks per culture sensitivities. Now is back with worsening lower extremity weakness and numbness of the legs , right hip pain. Ct was performed on his lower back and he has a progressive discitis and osteomyelitis with increased end plare destruction compression of the thecolphycodema and possible para spinal abscess. 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 Jaimes recommends holding plavix and will continue vancomycin and maripenum. 07/14: Findings of MRI are consistent with discitis and osteomyelitis . pre pertibral abscess appears smaller although not optimally characterized without IV contrast. remains prominent edema in the prevertebral soft tissue centered L4-L5 level edema and pedicals and parals in L4-L5 may be due to extension of osteomyelitis in this location or stress related changes. degenerate disc disease and facet disease in lumbar spine with associate spinal canal subarticular and neuronal phenomenon stenosis above 07/15: tolerated dialysis yesterday and blood cultures are no growth to date 07/16: unclear if upper neurological symptoms are related to potential spread of infection . 07/17: thin and emaciated , would be high risk for surgery in most scenarios 07/18: vancomycin levels are therapeutic and tolerating dialysis plan: - recommend nutrition consult to optimize patients dietary protein intake - recommend head Ct to rule out potential spread of infection in the head or neck - if theres any epidural component above it is covered by vancomycin and meropenum - recommend blood cultures - recommend said rate and CRP testing - recommend MRI without contrast of lumbar spine to further evaluate osteomyelitis and discitis - will require biopsy of spine and para spinal muscles that are infected and send for bacterial aerobic and anaerobic culturing when patient gets a surgical laminectomy Plan discussed with: Other Dietary Evaluation Review Comments: 1) Nepro Carb Steady 240ml daily (ordered per [facility] protocol) 2) Nephro-Katya 1 tab daily 3) continue current POC Expected Outcomes/Goals: To meet at least 75% estimated needs FU 3-5 days ENDY CAMP MD July 19, 2024 17:26
[2024-07-19] MEDS: VANCOMYCIN 500mg/100mL 100 ML IV ONE (18:32)
[2024-07-20] VITALS (11 sets, daily range): BP systolic 123–135; BP diastolic 58–84; PULSE 58–74; RESP 16–20; TEMP 97.5–98.4; O2SAT 94–100
[2024-07-20 07:19] LABS: Basophils # (auto) 0.1 10 ^3/uL (0-0.2); Eosinophils # (auto) 0.3 10 ^3/uL (0-0.8); Eosinophils % (auto) 5.4 % (0.0-7.0); Hematocrit 36.8 % (41.0-53.0); Hemoglobin 12.2 g/dL (13.5-17.5); Lymphocytes # (auto) 1.1 10 ^3/uL (0.4-5.4); Lymphocytes % (auto) 21.2 % (10.0-50.0); Mean Corpuscular Hemoglobin 30.9 pg (28.0-32.0); Mean Corpuscular Hgb Conc. 33.2 g/dL (32.0-36.0); Mean Corpuscular Volume 93.2 fL (80.0-100.0); Monocytes # (auto) 0.8 10 ^3/uL (0-1.3); Monocytes % (auto) 15.3 % (0.0-12.0); Neutrophils % (auto) 57.1 % (37.0-80.0); Platelet Count (auto) 135 10^3/uL (140-450); Red Blood Cells 3.95 10^6/uL (4.5-5.90); Red Cell Distribution Width 18.1 % (11.8-14.3); White Blood Cell 5.2 10^3/uL (4.4-10.8)
--- NOTE | 2024-07-20 08:18 | ECG ---
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
--- NOTE | 2024-07-20 10:19 | DVHPN2 ---
Progress Note - Dictate Date Seen: July 20, 2024 Has the PT tested + for MRSA If YES, has PT been informed?: No Medical Necessity Reason Pt with a Central, PICC or Fol: No Subjective No new complaints vital signs Vital Sign Date Time Temp Pulse Resp B/P (MAP) Pulse Ox O2 Delivery O2 Flow Rate FiO2 07/20/24 10:07 129/63 07/20/24 10:06 66 07/20/24 08:00 16 97 Room Air* 0 21 07/20/24 05:00 97.7 97.7 Total Intake and Output 07/19/24 07/19/24 07/20/24 15:00 23:00 07:00 Intake Total 200 ml 600 ml Output Total 250 ml Balance -50 ml 600 ml medications Current Medications Medications Dose Ordered Sig/Gerard Route Start Time Stop Time Status Last Admin Dose Admin Albuterol 2.5 mg Q6HPRN PRN NEB 07/12/24 00:30 07/17/24 20:07 2.5 MG Amlodipine Besylate 10 mg DAILY PO 07/12/24 10:00 07/20/24 10:05 10 MG Aspirin 81 mg DAILY PO 07/12/24 10:00 07/20/24 10:07 81 MG Atorvastatin Calcium 40 mg HS PO 07/12/24 22:00 07/19/24 22:10 40 MG Calcium Acetate 667 mg TIDWMEALS PO 07/12/24 08:00 07/20/24 08:15 667 MG Clopidogrel Bisulfate 75 mg DAILY PO 07/12/24 10:00 Hold 07/13/24 09:19 75 MG Furosemide 40 mg DAILY PO 07/12/24 10:00 07/20/24 10:07 40 MG Gabapentin 100 mg TID PO 07/12/24 06:00 07/20/24 05:42 100 MG Hydralazine HCl 50 mg Q8HR PO 07/12/24 06:00 07/20/24 05:42 50 MG Isosorbide Mononitrate 30 mg DAILY PO 07/12/24 10:00 07/20/24 10:06 30 MG Ranolazine 500 mg BID PO 07/12/24 10:00 07/20/24 10:06 500 MG Metoprolol Succinate 100 mg DAILY PO 07/12/24 10:00 07/20/24 10:06 100 MG Ondansetron HCl 4 mg Q4HP PRN IV 07/12/24 00:30 07/19/24 02:32 4 MG Acetaminophen 650 mg Q6HP PRN PO 07/12/24 00:30 Lorazepam 1 mg Q5MINP PRN IV 07/12/24 13:00 07/19/24 05:18 1 MG Hydromorphone HCl 2 mg Q4HPRN PRN IV 07/13/24 11:45 07/20/24 02:40 2 MG Vancomycin HCl 0 ml @ 0 mls/hr UD IV 07/13/24 20:00 Meropenem 50 ml @ 17 mls/hr DAILY IV 07/14/24 10:00 07/20/24 10:03 17 MLS/HR Diazepam 10 mg DAILY PRN PO 07/14/24 10:45 07/17/24 11:49 10 MG Clonidine HCl 0.2 mg Q6HP PRN PO 07/15/24 12:15 07/18/24 19:13 0.2 MG Nicotine 1 patch DAILY TD 07/17/24 10:00 07/20/24 10:08 1 PATCH Sacubitril/ Valsartan 2 tab BID PO 07/17/24 10:00 07/20/24 10:06 2 TAB objective Alert and oriented x 3 NAD Lungs CTA CV: RR, S4 gallop Abdomen: soft, NT No leg edema laboratory and microbiology Laboratory Tests 07/20/24 06:07 07/18/24 06:11 Test 07/18/24 06:11 Range/Units Serum Glucose 110 H 74-106 mg/dL Problem List 1. End-stage renal disease on hemodialysis TTS via AV fistula. 2. Intractable low back pain. 3. Diskitis/osteomyelitis of the L4-L5, scheduled for laminectomy 4. Hypertension uncontrolled 5. Hyperkalemia managed with dialysis. 6. Anemia of end-stage renal disease. 7. CAD. 8. Chronic pain syndrome. Plan slight recommendations: HD on TTS schedule Lokelma on the non dialysis days Analgesia. Continue phosphate binders Kody as needed for goal hemoglobin 10 to 11 grams/deciliter. Fluid restriction less than 1 L per day. DC planning Dietary Evaluation Review Comments: 1) Nepro Carb Steady 240ml daily (ordered per [facility] protocol) 2) Nephro-Katya 1 tab daily 3) continue current POC Expected Outcomes/Goals: To meet at least 75% estimated needs FU 3-5 days Plan discussed with: Other IVORY LEARY MD July 20, 2024 10:19
--- NOTE | 2024-07-20 11:58 | DVHPN2 ---
Reviewed: Care Plan Changes from previous H/P or p: No Changes Objective Vitals Vital Signs Date Time Temp Pulse Resp B/P (MAP) Pulse Ox O2 Delivery O2 Flow Rate FiO2 07/20/24 10:07 129/63 07/20/24 10:06 66 07/20/24 10:00 97 Room Air 0.0 07/20/24 10:00 21 07/20/24 08:00 16 07/20/24 05:00 97.7 97.7 Intake/Output Intake and Output 07/20/24 07:00 Intake Total 800 ml Output Total 250 ml Balance 550 ml Intake Oral 700 ml IV Total 100 ml Output Urine Total 250 ml # Voids 1 # Bowel Movements 1 Medications Current Medications Medications Dose Ordered Sig/Gerard Route Start Time Stop Time Status Last Admin Dose Admin Albuterol 2.5 mg Q6HPRN PRN NEB 07/12/24 00:30 07/17/24 20:07 2.5 MG Amlodipine Besylate 10 mg DAILY PO 07/12/24 10:00 07/20/24 10:05 10 MG Aspirin 81 mg DAILY PO 07/12/24 10:00 07/20/24 10:07 81 MG Atorvastatin Calcium 40 mg HS PO 07/12/24 22:00 07/19/24 22:10 40 MG Calcium Acetate 667 mg TIDWMEALS PO 07/12/24 08:00 07/20/24 08:15 667 MG Clopidogrel Bisulfate 75 mg DAILY PO 07/12/24 10:00 Hold 07/13/24 09:19 75 MG Furosemide 40 mg DAILY PO 07/12/24 10:00 07/20/24 10:07 40 MG Gabapentin 100 mg TID PO 07/12/24 06:00 07/20/24 05:42 100 MG Hydralazine HCl 50 mg Q8HR PO 07/12/24 06:00 07/20/24 05:42 50 MG Isosorbide Mononitrate 30 mg DAILY PO 07/12/24 10:00 07/20/24 10:06 30 MG Ranolazine 500 mg BID PO 07/12/24 10:00 07/20/24 10:06 500 MG Metoprolol Succinate 100 mg DAILY PO 07/12/24 10:00 07/20/24 10:06 100 MG Ondansetron HCl 4 mg Q4HP PRN IV 07/12/24 00:30 07/19/24 02:32 4 MG Acetaminophen 650 mg Q6HP PRN PO 07/12/24 00:30 Lorazepam 1 mg Q5MINP PRN IV 07/12/24 13:00 07/19/24 05:18 1 MG Hydromorphone HCl 2 mg Q4HPRN PRN IV 07/13/24 11:45 07/20/24 02:40 2 MG Vancomycin HCl 0 ml @ 0 mls/hr UD IV 07/13/24 20:00 Meropenem 50 ml @ 17 mls/hr DAILY IV 07/14/24 10:00 07/20/24 10:03 17 MLS/HR Diazepam 10 mg DAILY PRN PO 07/14/24 10:45 07/17/24 11:49 10 MG Clonidine HCl 0.2 mg Q6HP PRN PO 07/15/24 12:15 07/18/24 19:13 0.2 MG Nicotine 1 patch DAILY TD 07/17/24 10:00 07/20/24 10:08 1 PATCH Sacubitril/ Valsartan 2 tab BID PO 07/17/24 10:00 07/20/24 10:06 2 TAB Laboratory Results Laboratory Tests 07/18/24 06:11 07/20/24 06:07 Urinalysis Test 07/12/24 00:45 Urine Color Light-yellow (Yellow) Urine Clarity Clear (Clear) Urine pH 8.5 (5.0-9.0) Urine Specific [place] 1.010 (1.001-1.035) Urine Protein 3+ (Negative) H Urine Ketones Negative (Negative) Urine Blood Negative /uL (Negative) Urine Nitrite Negative (Negative) Urine Bilirubin Negative (Negative) Urine Urobilinogen Normal mg/dL (Negative) Urine Leukocyte Esterase Negative /uL (Negative) Urine RBC 1 /hpf (0 - 3) Urine Microscopic WBC 1 /HPF (0-3) Urine Squamous Epithelial Cells Few /hpf (<5) Urine Bacteria None seen /hpf (None Seen) Urine Glucose 3+ mg/dL (Normal) H Microbiology Microbiology Date/Time Source Procedure Growth Status 07/13/24 11:26 Blood Blood Culture - Final NO GROWTH AFTER 5 DAYS OF INCUBATION. Complete 07/12/24 06:10 Nose MRSA Screen - Final Complete Labs and/or images reviewed: Labs reviewed by me, Image(s) reviewed by me Assessment/Plan Assessment/Plan Chronic pain syndrome Right hip pain: Hip x-ray negative Acute osteomyelitis L4-5 by MRI L-spine: Consult by ID Dr. Cronin appreciated, placed on vancomycin and meropenem Spine surgery consult by Dr. Villafana appreciated planning for L- 5 laminectomy today ESRD on hemodialysis by Dr. Byrd Accelerated hypertension Acute generalized Weakness Anemia of chronic disease Coronary artery disease status post stents x3 Plavix Acute on chronic CHF exacerbation ejection fraction 35 percent Diabetes History of seizures on gabapentin Hypertension Hyperlipidemia Obesity Chronic current smoker counseling Cardiology Dr. Cooper cleared for spine surgery Time spent 55 minutes Advanced care planning time 20 minutes Patient is full code PCP Scott Wade Previous hospital stay 04/15/24 to 05-02-24 Spoke to patient's five Marycruz [phone] one and advised the current diagnosis management Plan discussed with: Patient Date of Service: July 20, 2024 Billing Provider: SHARMIN AN MD Common Visit Codes: [id number] INP/OBS CARE(HIGH) SHARMIN AN MD July 20, 2024 11:58
--- NOTE | 2024-07-20 22:00 | DVHPN2 ---
Consult Progress Note Date Seen: July 19, 2024 Subjective Patient reports: Other (tolerating broad spectrum antibiotics without fevers , having PO intolerance ) Objective vital signs Vital Sign Date Time Temp Pulse Resp B/P (MAP) Pulse Ox O2 Delivery O2 Flow Rate FiO2 07/20/24 21:00 98.1 58 17 124/58 (80) 98 98.1 07/20/24 20:27 Nasal Cannula* 2 28 Total Intake and Output 07/19/24 07/19/24 07/20/24 15:00 23:00 07:00 Intake Total 200 ml 600 ml Output Total 250 ml Balance -50 ml 600 ml medications Current Medications Medications Dose Ordered Sig/Gerard Route Start Time Stop Time Status Last Admin Dose Admin Albuterol 2.5 mg Q6HPRN PRN NEB 07/12/24 00:30 07/17/24 20:07 2.5 MG Amlodipine Besylate 10 mg DAILY PO 07/12/24 10:00 07/20/24 10:05 10 MG Aspirin 81 mg DAILY PO 07/12/24 10:00 07/20/24 10:07 81 MG Atorvastatin Calcium 40 mg HS PO 07/12/24 22:00 07/19/24 22:10 40 MG Calcium Acetate 667 mg TIDWMEALS PO 07/12/24 08:00 07/20/24 17:37 667 MG Clopidogrel Bisulfate 75 mg DAILY PO 07/12/24 10:00 Hold 07/13/24 09:19 75 MG Furosemide 40 mg DAILY PO 07/12/24 10:00 07/20/24 10:07 40 MG Gabapentin 100 mg TID PO 07/12/24 06:00 07/20/24 14:35 100 MG Hydralazine HCl 50 mg Q8HR PO 07/12/24 06:00 07/20/24 14:36 50 MG Isosorbide Mononitrate 30 mg DAILY PO 07/12/24 10:00 07/20/24 10:06 30 MG Ranolazine 500 mg BID PO 07/12/24 10:00 07/20/24 10:06 500 MG Metoprolol Succinate 100 mg DAILY PO 07/12/24 10:00 07/20/24 10:06 100 MG Ondansetron HCl 4 mg Q4HP PRN IV 07/12/24 00:30 07/19/24 02:32 4 MG Acetaminophen 650 mg Q6HP PRN PO 07/12/24 00:30 Lorazepam 1 mg Q5MINP PRN IV 07/12/24 13:00 07/19/24 05:18 1 MG Hydromorphone HCl 2 mg Q4HPRN PRN IV 07/13/24 11:45 07/20/24 17:38 2 MG Vancomycin HCl 0 ml @ 0 mls/hr UD IV 07/13/24 20:00 Meropenem 50 ml @ 17 mls/hr DAILY IV 07/14/24 10:00 07/20/24 10:03 17 MLS/HR Diazepam 10 mg DAILY PRN PO 07/14/24 10:45 07/17/24 11:49 10 MG Clonidine HCl 0.2 mg Q6HP PRN PO 07/15/24 12:15 07/18/24 19:13 0.2 MG Nicotine 1 patch DAILY TD 07/17/24 10:00 07/20/24 10:08 1 PATCH Sacubitril/ Valsartan 2 tab BID PO 07/17/24 10:00 07/20/24 10:06 2 TAB laboratory and microbiology Laboratory Tests 07/20/24 06:07 07/18/24 06:11 Test 07/18/24 06:11 Range/Units Serum Glucose 110 H 74-106 mg/dL Problem List/Assessment/Plan Problems(with codes): (1) Acute chest pain (2) Intractable low back pain (3) Pneumonia, unspecified organism (4) End stage renal disease on dialysis (5) Chronic back pain (6) Acute on chronic systolic heart failure (7) Shortness of breath Problem List/Assessment/Plan Reviewed subjective, clinical findings, assessment and plan as described by Dr. Dugan Mr. Mikhail Mckee is a 59 year old male with a past medical history of active smoking history ,end stage renal disease , bedbound , COPD , seizures, were found to have a right buttock abscess last year that was treated with antibiotics , unclear where this was done . Presented with pneumonia here , klebsiella and MRSA growth here and was treated with vancomycin and cefepime for 6 weeks per culture sensitivities. Now is back with worsening lower extremity weakness and numbness of the legs , right hip pain. Ct was performed on his lower back and he has a progressive discitis and osteomyelitis with increased end plare destruction compression of the thecolphycodema and possible para spinal abscess. 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 Jaimes recommends holding plavix and will continue vancomycin and maripenum. 07/14: Findings of MRI are consistent with discitis and osteomyelitis . pre pertibral abscess appears smaller although not optimally characterized without IV contrast. remains prominent edema in the prevertebral soft tissue centered L4-L5 level edema and pedicals and parals in L4-L5 may be due to extension of osteomyelitis in this location or stress related changes. degenerate disc disease and facet disease in lumbar spine with associate spinal canal subarticular and neuronal phenomenon stenosis above 07/15: tolerated dialysis yesterday and blood cultures are no growth to date 07/16: unclear if upper neurological symptoms are related to potential spread of infection . 07/17: thin and emaciated , would be high risk for surgery in most scenarios 07/18: vancomycin levels are therapeutic and tolerating dialysis 07/19: weak but able to ambulate with assistance and awaiting surgery plan: - recommend nutrition consult to optimize patients dietary protein intake - recommend head Ct to rule out potential spread of infection in the head or neck - if theres any epidural component above it is covered by vancomycin and meropenum - recommend blood cultures - recommend said rate and CRP testing - recommend MRI without contrast of lumbar spine to further evaluate osteomyelitis and discitis - will require biopsy of spine and para spinal muscles that are infected and send for bacterial aerobic and anaerobic culturing when patient gets a surgical laminectomy Plan discussed with: Other Dietary Evaluation Review Comments: 1) Nepro Carb Steady 240ml daily (ordered per [facility] protocol) 2) Nephro-Katya 1 tab daily 3) continue current POC Expected Outcomes/Goals: To meet at least 75% estimated needs FU 3-5 days ENDY CAMP MD July 20, 2024 22:00
--- NOTE | 2024-07-20 22:00 | DVHPN2 ---
Consult Progress Note Date Seen: July 20, 2024 Subjective Patient reports: Other (was supposed to get surgery today but had difficulty finding an OR time , has right hip pain , nausea and vomitting toleratign some solft food intake ) Objective vital signs Vital Sign Date Time Temp Pulse Resp B/P (MAP) Pulse Ox O2 Delivery O2 Flow Rate FiO2 07/20/24 21:00 98.1 58 17 124/58 (80) 98 98.1 07/20/24 20:27 Nasal Cannula* 2 28 Total Intake and Output 07/19/24 07/19/24 07/20/24 15:00 23:00 07:00 Intake Total 200 ml 600 ml Output Total 250 ml Balance -50 ml 600 ml medications Current Medications Medications Dose Ordered Sig/Gerard Route Start Time Stop Time Status Last Admin Dose Admin Albuterol 2.5 mg Q6HPRN PRN NEB 07/12/24 00:30 07/17/24 20:07 2.5 MG Amlodipine Besylate 10 mg DAILY PO 07/12/24 10:00 07/20/24 10:05 10 MG Aspirin 81 mg DAILY PO 07/12/24 10:00 07/20/24 10:07 81 MG Atorvastatin Calcium 40 mg HS PO 07/12/24 22:00 07/19/24 22:10 40 MG Calcium Acetate 667 mg TIDWMEALS PO 07/12/24 08:00 07/20/24 17:37 667 MG Clopidogrel Bisulfate 75 mg DAILY PO 07/12/24 10:00 Hold 07/13/24 09:19 75 MG Furosemide 40 mg DAILY PO 07/12/24 10:00 07/20/24 10:07 40 MG Gabapentin 100 mg TID PO 07/12/24 06:00 07/20/24 14:35 100 MG Hydralazine HCl 50 mg Q8HR PO 07/12/24 06:00 07/20/24 14:36 50 MG Isosorbide Mononitrate 30 mg DAILY PO 07/12/24 10:00 07/20/24 10:06 30 MG Ranolazine 500 mg BID PO 07/12/24 10:00 07/20/24 10:06 500 MG Metoprolol Succinate 100 mg DAILY PO 07/12/24 10:00 07/20/24 10:06 100 MG Ondansetron HCl 4 mg Q4HP PRN IV 07/12/24 00:30 07/19/24 02:32 4 MG Acetaminophen 650 mg Q6HP PRN PO 07/12/24 00:30 Lorazepam 1 mg Q5MINP PRN IV 07/12/24 13:00 07/19/24 05:18 1 MG Hydromorphone HCl 2 mg Q4HPRN PRN IV 07/13/24 11:45 07/20/24 17:38 2 MG Vancomycin HCl 0 ml @ 0 mls/hr UD IV 07/13/24 20:00 Meropenem 50 ml @ 17 mls/hr DAILY IV 07/14/24 10:00 07/20/24 10:03 17 MLS/HR Diazepam 10 mg DAILY PRN PO 07/14/24 10:45 07/17/24 11:49 10 MG Clonidine HCl 0.2 mg Q6HP PRN PO 07/15/24 12:15 07/18/24 19:13 0.2 MG Nicotine 1 patch DAILY TD 07/17/24 10:00 07/20/24 10:08 1 PATCH Sacubitril/ Valsartan 2 tab BID PO 07/17/24 10:00 07/20/24 10:06 2 TAB laboratory and microbiology Laboratory Tests 07/20/24 06:07 07/18/24 06:11 Test 07/18/24 06:11 Range/Units Serum Glucose 110 H 74-106 mg/dL Problem List/Assessment/Plan Problems(with codes): (1) Acute chest pain (2) Intractable low back pain (3) Pneumonia, unspecified organism (4) End stage renal disease on dialysis (5) Chronic back pain (6) Acute on chronic systolic heart failure (7) Shortness of breath (8) Bilateral leg weakness Problem List/Assessment/Plan Reviewed subjective, clinical findings, assessment and plan as described by Dr. Dugan Mr. Mikhail Mckee is a 59 year old male with a past medical history of active smoking history ,end stage renal disease , bedbound , COPD , seizures, were found to have a right buttock abscess last year that was treated with antibiotics , unclear where this was done . Presented with pneumonia here , klebsiella and MRSA growth here and was treated with vancomycin and cefepime for 6 weeks per culture sensitivities. Now is back with worsening lower extremity weakness and numbness of the legs , right hip pain. Ct was performed on his lower back and he has a progressive discitis and osteomyelitis with increased end plare destruction compression of the thecolphycodema and possible para spinal abscess. 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 Jaimes recommends holding plavix and will continue vancomycin and maripenum. 07/14: Findings of MRI are consistent with discitis and osteomyelitis . pre pertibral abscess appears smaller although not optimally characterized without IV contrast. remains prominent edema in the prevertebral soft tissue centered L4-L5 level edema and pedicals and parals in L4-L5 may be due to extension of osteomyelitis in this location or stress related changes. degenerate disc disease and facet disease in lumbar spine with associate spinal canal subarticular and neuronal phenomenon stenosis above 07/15: tolerated dialysis yesterday and blood cultures are no growth to date 07/16: unclear if upper neurological symptoms are related to potential spread of infection . 07/17: thin and emaciated , would be high risk for surgery in most scenarios 14: vancomycin levels are therapeutic and tolerating dialysis 515: weak but able to ambulate with assistance and awaiting surgery 16: still awaiting a time to go to the OR for surgery plan: - recommend nutrition consult to optimize patients dietary protein intake - recommend head Ct to rule out potential spread of infection in the head or neck - if theres any epidural component above it is covered by vancomycin and meropenum - recommend blood cultures - recommend said rate and CRP testing - recommend MRI without contrast of lumbar spine to further evaluate osteomyelitis and discitis - will require biopsy of spine and para spinal muscles that are infected and send for bacterial aerobic and anaerobic culturing when patient gets a surgical laminectomy Plan discussed with: Other Dietary Evaluation Review Comments: 1) Nepro Carb Steady 240ml daily (ordered per [facility] protocol) 2) Nephro-Katya 1 tab daily 3) continue current POC Expected Outcomes/Goals: To meet at least 75% estimated needs FU 3-5 days ENDY CAMP MD July 20, 2024 22:00
[2024-07-21] VITALS (11 sets, daily range): BP systolic 90–145; BP diastolic 51–78; PULSE 62–66; RESP 15–19; TEMP 96.3–98.3; O2SAT 94–100
[2024-07-21] MEDS: SODIUM CHL 0.9% 1000 ML BAG XX ONE (07:00)
--- NOTE | 2024-07-21 09:28 | DVHPN2 ---
Progress Note - Dictate Date Seen: July 21, 2024 Has the PT tested + for MRSA If YES, has PT been informed?: No Medical Necessity Reason Pt with a Central, PICC or Fol: No Subjective No new complaints vital signs Vital Sign Date Time Temp Pulse Resp B/P (MAP) Pulse Ox O2 Delivery O2 Flow Rate FiO2 07/21/24 09:00 97.9 62 15 108/55 (72) 100 97.9 07/21/24 07:20 Nasal Cannula 1.0 07/21/24 07:20 24 Total Intake and Output 07/20/24 07/20/24 07/21/24 15:00 23:00 07:00 Intake Total 400 ml 450 ml Output Total 0 ml Balance 400 ml 450 ml medications Current Medications Medications Dose Ordered Sig/Gerard Route Start Time Stop Time Status Last Admin Dose Admin Albuterol 2.5 mg Q6HPRN PRN NEB 07/12/24 00:30 07/17/24 20:07 2.5 MG Amlodipine Besylate 10 mg DAILY PO 07/12/24 10:00 07/20/24 10:05 10 MG Aspirin 81 mg DAILY PO 07/12/24 10:00 07/20/24 10:07 81 MG Atorvastatin Calcium 40 mg HS PO 07/12/24 22:00 07/20/24 21:54 40 MG Calcium Acetate 667 mg TIDWMEALS PO 07/12/24 08:00 07/20/24 17:37 667 MG Clopidogrel Bisulfate 75 mg DAILY PO 07/12/24 10:00 Hold 07/13/24 09:19 75 MG Furosemide 40 mg DAILY PO 07/12/24 10:00 07/20/24 10:07 40 MG Gabapentin 100 mg TID PO 07/12/24 06:00 07/21/24 04:54 100 MG Hydralazine HCl 50 mg Q8HR PO 07/12/24 06:00 07/20/24 21:54 50 MG Isosorbide Mononitrate 30 mg DAILY PO 07/12/24 10:00 07/20/24 10:06 30 MG Ranolazine 500 mg BID PO 07/12/24 10:00 07/20/24 21:56 500 MG Metoprolol Succinate 100 mg DAILY PO 07/12/24 10:00 07/20/24 10:06 100 MG Ondansetron HCl 4 mg Q4HP PRN IV 07/12/24 00:30 07/19/24 02:32 4 MG Acetaminophen 650 mg Q6HP PRN PO 07/12/24 00:30 Lorazepam 1 mg Q5MINP PRN IV 07/12/24 13:00 07/19/24 05:18 1 MG Hydromorphone HCl 2 mg Q4HPRN PRN IV 07/13/24 11:45 07/21/24 04:55 2 MG Vancomycin HCl 0 ml @ 0 mls/hr UD IV 07/13/24 20:00 Meropenem 50 ml @ 17 mls/hr DAILY IV 07/14/24 10:00 07/20/24 10:03 17 MLS/HR Diazepam 10 mg DAILY PRN PO 07/14/24 10:45 07/17/24 11:49 10 MG Clonidine HCl 0.2 mg Q6HP PRN PO 07/15/24 12:15 07/18/24 19:13 0.2 MG Nicotine 1 patch DAILY TD 07/17/24 10:00 07/20/24 10:08 1 PATCH Sacubitril/ Valsartan 2 tab BID PO 07/17/24 10:00 07/20/24 21:54 2 TAB objective Alert and oriented x 3 NAD Lungs CTA CV: RR, S4 gallop Abdomen: soft, NT No leg edema laboratory and microbiology Laboratory Tests 07/20/24 06:07 07/18/24 06:11 Test 07/18/24 06:11 Range/Units Serum Glucose 110 H 74-106 mg/dL Problem List 1. End-stage renal disease on hemodialysis TTS via AV fistula. 2. Intractable low back pain. 3. Diskitis/osteomyelitis of the L4-L5, scheduled for laminectomy 4. Hypertension uncontrolled 5. Hyperkalemia managed with dialysis. 6. Anemia of end-stage renal disease. 7. CAD. 8. Chronic pain syndrome. Plan slight recommendations: HD on TTS schedule Lokelma on the non dialysis days Analgesia. Continue phosphate binders Kody as needed for goal hemoglobin 10 to 11 grams/deciliter. Fluid restriction less than 1 L per day. DC planning Dietary Evaluation Review Comments: 1) Nepro Carb Steady 240ml daily (ordered per [facility] protocol) 2) Nephro-Katya 1 tab daily 3) continue current POC Expected Outcomes/Goals: To meet at least 75% estimated needs FU 3-5 days Plan discussed with: Patient IVORY LEARY MD July 21, 2024 09:28
--- NOTE | 2024-07-21 11:20 | DVHPN2 ---
Reviewed: Care Plan Changes from previous H/P or p: No Changes Objective Vitals Vital Signs Date Time Temp Pulse Resp B/P (MAP) Pulse Ox O2 Delivery O2 Flow Rate FiO2 07/21/24 10:04 68 16 139/68 07/21/24 09:00 97.9 100 97.9 07/21/24 07:20 Nasal Cannula 1.0 07/21/24 07:20 24 Intake/Output Intake and Output 07/21/24 07:00 Intake Total 850 ml Output Total 0 ml Balance 850 ml Intake Oral 850 ml Output Urine Total 0 ml # Voids 1 Medications Current Medications Medications Dose Ordered Sig/Gerard Route Start Time Stop Time Status Last Admin Dose Admin Albuterol 2.5 mg Q6HPRN PRN NEB 07/12/24 00:30 07/17/24 20:07 2.5 MG Amlodipine Besylate 10 mg DAILY PO 07/12/24 10:00 07/21/24 09:47 10 MG Aspirin 81 mg DAILY PO 07/12/24 10:00 07/21/24 09:46 81 MG Atorvastatin Calcium 40 mg HS PO 07/12/24 22:00 07/20/24 21:54 40 MG Calcium Acetate 667 mg TIDWMEALS PO 07/12/24 08:00 07/20/24 17:37 667 MG Clopidogrel Bisulfate 75 mg DAILY PO 07/12/24 10:00 Hold 07/13/24 09:19 75 MG Furosemide 40 mg DAILY PO 07/12/24 10:00 07/21/24 09:48 40 MG Gabapentin 100 mg TID PO 07/12/24 06:00 07/21/24 04:54 100 MG Hydralazine HCl 50 mg Q8HR PO 07/12/24 06:00 07/20/24 21:54 50 MG Isosorbide Mononitrate 30 mg DAILY PO 07/12/24 10:00 07/21/24 09:48 30 MG Ranolazine 500 mg BID PO 07/12/24 10:00 07/21/24 09:47 500 MG Metoprolol Succinate 100 mg DAILY PO 07/12/24 10:00 07/21/24 09:46 100 MG Ondansetron HCl 4 mg Q4HP PRN IV 07/12/24 00:30 07/19/24 02:32 4 MG Acetaminophen 650 mg Q6HP PRN PO 07/12/24 00:30 Lorazepam 1 mg Q5MINP PRN IV 07/12/24 13:00 07/19/24 05:18 1 MG Hydromorphone HCl 2 mg Q4HPRN PRN IV 07/13/24 11:45 07/21/24 10:04 2 MG Vancomycin HCl 0 ml @ 0 mls/hr UD IV 07/13/24 20:00 Meropenem 50 ml @ 17 mls/hr DAILY IV 07/14/24 10:00 07/21/24 10:04 17 MLS/HR Diazepam 10 mg DAILY PRN PO 07/14/24 10:45 07/17/24 11:49 10 MG Clonidine HCl 0.2 mg Q6HP PRN PO 07/15/24 12:15 07/18/24 19:13 0.2 MG Nicotine 1 patch DAILY TD 07/17/24 10:00 07/21/24 09:50 1 PATCH Sacubitril/ Valsartan 2 tab BID PO 07/17/24 10:00 07/21/24 09:45 2 TAB Laboratory Results Laboratory Tests 07/18/24 06:11 07/20/24 06:07 Urinalysis Test 07/12/24 00:45 Urine Color Light-yellow (Yellow) Urine Clarity Clear (Clear) Urine pH 8.5 (5.0-9.0) Urine Specific [employer] 1.010 (1.001-1.035) Urine Protein 3+ (Negative) H Urine Ketones Negative (Negative) Urine Blood Negative /uL (Negative) Urine Nitrite Negative (Negative) Urine Bilirubin Negative (Negative) Urine Urobilinogen Normal mg/dL (Negative) Urine Leukocyte Esterase Negative /uL (Negative) Urine RBC 1 /hpf (0 - 3) Urine Microscopic WBC 1 /HPF (0-3) Urine Squamous Epithelial Cells Few /hpf (<5) Urine Bacteria None seen /hpf (None Seen) Urine Glucose 3+ mg/dL (Normal) H Microbiology Microbiology Date/Time Source Procedure Growth Status 07/13/24 11:26 Blood Blood Culture - Final NO GROWTH AFTER 5 DAYS OF INCUBATION. Complete 07/12/24 06:10 Nose MRSA Screen - Final Complete Labs and/or images reviewed: Labs reviewed by me, Image(s) reviewed by me Assessment/Plan Assessment/Plan Chronic pain syndrome Right hip pain: Hip x-ray negative Acute osteomyelitis L4-5 by MRI L-spine: Consult by ID Dr. Cronin appreciated, placed on vancomycin and meropenem Spine surgery consult by Dr. Villafana appreciated planning for L- 5 laminectomy ; waiting for availability of the slot in the operating room; Dr. Villafana spoke to me. ESRD on hemodialysis by Dr. Byrd Accelerated hypertension Acute generalized Weakness Anemia of chronic disease Coronary artery disease status post stents x3 Plavix Acute on chronic CHF exacerbation ejection fraction 35 percent Diabetes History of seizures on gabapentin Hypertension Hyperlipidemia Obesity Chronic current smoker counseling Cardiology Dr. Cooper cleared for spine surgery Time spent 55 minutes Advanced care planning time 20 minutes Patient is full code PCP Scott Wade Previous hospital stay 04/15/24 to 05-02-24 Spoke to patient's five Marycruz [phone] one and advised the current diagnosis management Plan discussed with: Patient Date of Service: July 21, 2024 Billing Provider: SHARMIN AN MD Common Visit Codes: [id number] INP/OBS CARE(HIGH) SHARMIN AN MD July 21, 2024 11:20
[2024-07-21] MEDS: VANCOMYCIN 500mg/100mL 100 ML IV ONE (18:38)
--- NOTE | 2024-07-21 20:28 | DVHPN2 ---
Consult Progress Note Date Seen: July 21, 2024 Subjective Patient reports: Other (toleratign dialysis , some hip pain and tenderness ) Objective vital signs Vital Sign Date Time Temp Pulse Resp B/P (MAP) Pulse Ox O2 Delivery O2 Flow Rate FiO2 07/21/24 17:00 97.8 63 15 90/51 (64) 94 97.8 07/21/24 10:00 Nasal Cannula* 2 28 Total Intake and Output 07/20/24 07/20/24 07/21/24 15:00 23:00 07:00 Intake Total 400 ml 450 ml Output Total 0 ml Balance 400 ml 450 ml medications Current Medications Medications Dose Ordered Sig/Gerard Route Start Time Stop Time Status Last Admin Dose Admin Albuterol 2.5 mg Q6HPRN PRN NEB 07/12/24 00:30 07/17/24 20:07 2.5 MG Amlodipine Besylate 10 mg DAILY PO 07/12/24 10:00 07/21/24 09:47 10 MG Aspirin 81 mg DAILY PO 07/12/24 10:00 07/21/24 09:46 81 MG Atorvastatin Calcium 40 mg HS PO 07/12/24 22:00 07/20/24 21:54 40 MG Calcium Acetate 667 mg TIDWMEALS PO 07/12/24 08:00 07/21/24 18:37 667 MG Clopidogrel Bisulfate 75 mg DAILY PO 07/12/24 10:00 Hold 07/13/24 09:19 75 MG Furosemide 40 mg DAILY PO 07/12/24 10:00 07/21/24 09:48 40 MG Gabapentin 100 mg TID PO 07/12/24 06:00 07/21/24 04:54 100 MG Hydralazine HCl 50 mg Q8HR PO 07/12/24 06:00 07/20/24 21:54 50 MG Isosorbide Mononitrate 30 mg DAILY PO 07/12/24 10:00 07/21/24 09:48 30 MG Ranolazine 500 mg BID PO 07/12/24 10:00 07/21/24 09:47 500 MG Metoprolol Succinate 100 mg DAILY PO 07/12/24 10:00 07/21/24 09:46 100 MG Ondansetron HCl 4 mg Q4HP PRN IV 07/12/24 00:30 07/21/24 16:03 4 MG Acetaminophen 650 mg Q6HP PRN PO 07/12/24 00:30 Lorazepam 1 mg Q5MINP PRN IV 07/12/24 13:00 07/19/24 05:18 1 MG Hydromorphone HCl 2 mg Q4HPRN PRN IV 07/13/24 11:45 07/21/24 16:03 2 MG Vancomycin HCl 0 ml @ 0 mls/hr UD IV 07/13/24 20:00 Meropenem 50 ml @ 17 mls/hr DAILY IV 07/14/24 10:00 07/21/24 10:04 17 MLS/HR Diazepam 10 mg DAILY PRN PO 07/14/24 10:45 07/17/24 11:49 10 MG Clonidine HCl 0.2 mg Q6HP PRN PO 07/15/24 12:15 07/18/24 19:13 0.2 MG Nicotine 1 patch DAILY TD 07/17/24 10:00 07/21/24 09:50 1 PATCH Sacubitril/ Valsartan 2 tab BID PO 07/17/24 10:00 07/21/24 09:45 2 TAB laboratory and microbiology Laboratory Tests 07/20/24 06:07 07/18/24 06:11 Test 07/18/24 06:11 Range/Units Serum Glucose 110 H 74-106 mg/dL Problem List/Assessment/Plan Problems(with codes): (1) Acute chest pain (2) Intractable low back pain (3) Pneumonia, unspecified organism (4) End stage renal disease on dialysis (5) Chronic back pain (6) Acute on chronic systolic heart failure (7) Shortness of breath (8) Bilateral leg weakness Problem List/Assessment/Plan Reviewed subjective, clinical findings, assessment and plan as described by Dr. Dugan Mr. Mikhail Mckee is a 59 year old male with a past medical history of active smoking history ,end stage renal disease , bedbound , COPD , seizures, were found to have a right buttock abscess last year that was treated with antibiotics , unclear where this was done . Presented with pneumonia here , klebsiella and MRSA growth here and was treated with vancomycin and cefepime for 6 weeks per culture sensitivities. Now is back with worsening lower extremity weakness and numbness of the legs , right hip pain. Ct was performed on his lower back and he has a progressive discitis and osteomyelitis with increased end plare destruction compression of the thecolphycodema and possible para spinal abscess. 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 Jaimes recommends holding plavix and will continue vancomycin and maripenum. 07/14: Findings of MRI are consistent with discitis and osteomyelitis . pre pertibral abscess appears smaller although not optimally characterized without IV contrast. remains prominent edema in the prevertebral soft tissue centered L4-L5 level edema and pedicals and parals in L4-L5 may be due to extension of osteomyelitis in this location or stress related changes. degenerate disc disease and facet disease in lumbar spine with associate spinal canal subarticular and neuronal phenomenon stenosis above 07/15: tolerated dialysis yesterday and blood cultures are no growth to date 07/16: unclear if upper neurological symptoms are related to potential spread of infection . 07/17: thin and emaciated , would be high risk for surgery in most scenarios 14: vancomycin levels are therapeutic and tolerating dialysis 515: weak but able to ambulate with assistance and awaiting surgery 516: still awaiting a time to go to the OR for surgery 517: awaiting OR time next week plan: - recommend nutrition consult to optimize patients dietary protein intake - recommend head Ct to rule out potential spread of infection in the head or neck - if theres any epidural component above it is covered by vancomycin and meropenum - recommend blood cultures - recommend said rate and CRP testing - recommend MRI without contrast of lumbar spine to further evaluate osteomyelitis and discitis - will require biopsy of spine and para spinal muscles that are infected and send for bacterial aerobic and anaerobic culturing when patient gets a surgical laminectomy Plan discussed with: Other Dietary Evaluation Review Comments: 1) Nepro Carb Steady 240ml daily (ordered per [facility] protocol) 2) Nephro-Katya 1 tab daily 3) continue current POC Expected Outcomes/Goals: To meet at least 75% estimated needs FU 3-5 days ENDY CAMP MD July 21, 2024 20:28
[2024-07-22] VITALS (9 sets, daily range): BP systolic 116–168; BP diastolic 53–77; PULSE 62–79; RESP 14–18; TEMP 97.3–98; O2SAT 94–99
[2024-07-22 06:27] LABS: Basophils # (auto) 0.1 10 ^3/uL (0-0.2); Basophils % (auto) 1.2 % (0.0-2.0); Eosinophils # (auto) 0.3 10 ^3/uL (0-0.8); Eosinophils % (auto) 6.6 % (0.0-7.0); Hematocrit 39.1 % (41.0-53.0); Lymphocytes % (auto) 20.5 % (10.0-50.0); Mean Corpuscular Hemoglobin 30.6 pg (28.0-32.0); Mean Corpuscular Hgb Conc. 33.1 g/dL (32.0-36.0); Mean Corpuscular Volume 92.3 fL (80.0-100.0); Monocytes # (auto) 0.8 10 ^3/uL (0-1.3); Neutrophils # (auto) 2.9 10 ^3/uL (1.6-8.6); Neutrophils % (auto) 56.7 % (37.0-80.0); Nucleated Red Blood Cells % 0.1 %; Platelet Count (auto) 126 10^3/uL (140-450); Red Blood Cells 4.24 10^6/uL (4.5-5.90); Red Cell Distribution Width 17.5 % (11.8-14.3); White Blood Cell 5.1 10^3/uL (4.4-10.8)
--- NOTE | 2024-07-22 12:26 | DVHPN2 ---
Reviewed: Care Plan Changes from previous H/P or p: No Changes Objective Vitals Vital Signs Date Time Temp Pulse Resp B/P (MAP) Pulse Ox O2 Delivery O2 Flow Rate FiO2 07/22/24 12:02 96 Room Air* 0 21 07/22/24 10:00 68 116/53 07/22/24 09:00 97.3 17 97.3 Intake/Output Intake and Output 07/22/24 07:00 Intake Total 1113 ml Output Total 650 ml Balance 463 ml Intake Oral 963 ml IV Total 150 ml Output Urine Total 650 ml Medications Current Medications Medications Dose Ordered Sig/Gerard Route Start Time Stop Time Status Last Admin Dose Admin Albuterol 2.5 mg Q6HPRN PRN NEB 07/12/24 00:30 07/17/24 20:07 2.5 MG Amlodipine Besylate 10 mg DAILY PO 07/12/24 10:00 07/21/24 09:47 10 MG Atorvastatin Calcium 40 mg HS PO 07/12/24 22:00 07/21/24 22:14 40 MG Calcium Acetate 667 mg TIDWMEALS PO 07/12/24 08:00 07/21/24 18:37 667 MG Clopidogrel Bisulfate 75 mg DAILY PO 07/12/24 10:00 Hold 07/13/24 09:19 75 MG Furosemide 40 mg DAILY PO 07/12/24 10:00 07/21/24 09:48 40 MG Gabapentin 100 mg TID PO 07/12/24 06:00 07/22/24 05:35 100 MG Hydralazine HCl 50 mg Q8HR PO 07/12/24 06:00 07/22/24 05:34 50 MG Isosorbide Mononitrate 30 mg DAILY PO 07/12/24 10:00 07/21/24 09:48 30 MG Ranolazine 500 mg BID PO 07/12/24 10:00 07/21/24 22:14 500 MG Metoprolol Succinate 100 mg DAILY PO 07/12/24 10:00 07/21/24 09:46 100 MG Ondansetron HCl 4 mg Q4HP PRN IV 07/12/24 00:30 07/22/24 06:56 4 MG Acetaminophen 650 mg Q6HP PRN PO 07/12/24 00:30 Lorazepam 1 mg Q5MINP PRN IV 07/12/24 13:00 07/19/24 05:18 1 MG Hydromorphone HCl 2 mg Q4HPRN PRN IV 07/13/24 11:45 07/22/24 05:57 2 MG Vancomycin HCl 0 ml @ 0 mls/hr UD IV 07/13/24 20:00 Meropenem 50 ml @ 17 mls/hr DAILY IV 07/14/24 10:00 07/22/24 10:00 17 MLS/HR Diazepam 10 mg DAILY PRN PO 07/14/24 10:45 07/17/24 11:49 10 MG Clonidine HCl 0.2 mg Q6HP PRN PO 07/15/24 12:15 07/18/24 19:13 0.2 MG Nicotine 1 patch DAILY TD 07/17/24 10:00 07/21/24 09:50 1 PATCH Sacubitril/ Valsartan 2 tab BID PO 07/17/24 10:00 07/21/24 22:13 2 TAB Laboratory Results Laboratory Tests 07/18/24 06:11 07/22/24 05:42 Urinalysis Test 07/12/24 00:45 Urine Color Light-yellow (Yellow) Urine Clarity Clear (Clear) Urine pH 8.5 (5.0-9.0) Urine Specific [place] 1.010 (1.001-1.035) Urine Protein 3+ (Negative) H Urine Ketones Negative (Negative) Urine Blood Negative /uL (Negative) Urine Nitrite Negative (Negative) Urine Bilirubin Negative (Negative) Urine Urobilinogen Normal mg/dL (Negative) Urine Leukocyte Esterase Negative /uL (Negative) Urine RBC 1 /hpf (0 - 3) Urine Microscopic WBC 1 /HPF (0-3) Urine Squamous Epithelial Cells Few /hpf (<5) Urine Bacteria None seen /hpf (None Seen) Urine Glucose 3+ mg/dL (Normal) H Microbiology Microbiology Date/Time Source Procedure Growth Status 07/13/24 11:26 Blood Blood Culture - Final NO GROWTH AFTER 5 DAYS OF INCUBATION. Complete 07/12/24 06:10 Nose MRSA Screen - Final Complete Labs and/or images reviewed: Labs reviewed by me, Image(s) reviewed by me Assessment/Plan Assessment/Plan Chronic pain syndrome Right hip pain: Hip x-ray negative Acute osteomyelitis L4-5 by MRI L-spine: Consult by ID Dr. Mehrdad pollock, placed on vancomycin and meropenem Spine surgery consult by Dr. Villafana appreciated planning for L- 5 laminectomy ; waiting for availability of the slot in the operating room; Dr. Villafana spoke to me. ESRD on hemodialysis by Dr. Byrd Accelerated hypertension Acute generalized Weakness Anemia of chronic disease Coronary artery disease status post stents x3 Plavix Acute on chronic CHF exacerbation ejection fraction 35 percent Diabetes History of seizures on gabapentin Hypertension Hyperlipidemia Obesity Chronic current smoker counseling Cardiology Dr. Cooper cleared for spine surgery Blood-tinged emesis: DC aspirin, start pantoprazole 40 mg IV daily Time spent 55 minutes Advanced care planning time 20 minutes Patient is full code PCP Scott Wade Previous hospital stay 04/15/24 to 05-02-24 Spoke to patient's five Marycruz [phone] one and advised the current diagnosis management Plan discussed with: Patient Date of Service: July 22, 2024 Billing Provider: SHARMIN AN MD Common Visit Codes: [id number] INP/OBS CARE(HIGH) SHARMIN AN MD July 22, 2024 12:26
--- NOTE | 2024-07-22 13:23 | DVHPN2 ---
Progress Note - Dictate Date Seen: July 22, 2024 Has the PT tested + for MRSA If YES, has PT been informed?: No Medical Necessity Reason Pt with a Central, PICC or Fol: No Subjective non new symptoms vital signs Vital Sign Date Time Temp Pulse Resp B/P (MAP) Pulse Ox O2 Delivery O2 Flow Rate FiO2 07/22/24 12:02 96 Room Air* 0 21 07/22/24 10:00 68 116/53 07/22/24 09:00 97.3 17 97.3 Total Intake and Output 07/21/24 07/21/24 07/22/24 15:00 23:00 07:00 Intake Total 168 ml 705 ml 240 ml Output Total 200 ml 450 ml Balance 168 ml 505 ml -210 ml medications Current Medications Medications Dose Ordered Sig/Gerard Route Start Time Stop Time Status Last Admin Dose Admin Albuterol 2.5 mg Q6HPRN PRN NEB 07/12/24 00:30 07/17/24 20:07 2.5 MG Amlodipine Besylate 10 mg DAILY PO 07/12/24 10:00 07/21/24 09:47 10 MG Atorvastatin Calcium 40 mg HS PO 07/12/24 22:00 07/21/24 22:14 40 MG Calcium Acetate 667 mg TIDWMEALS PO 07/12/24 08:00 07/22/24 12:34 667 MG Clopidogrel Bisulfate 75 mg DAILY PO 07/12/24 10:00 Hold 07/13/24 09:19 75 MG Furosemide 40 mg DAILY PO 07/12/24 10:00 07/21/24 09:48 40 MG Gabapentin 100 mg TID PO 07/12/24 06:00 07/22/24 05:35 100 MG Hydralazine HCl 50 mg Q8HR PO 07/12/24 06:00 07/22/24 05:34 50 MG Isosorbide Mononitrate 30 mg DAILY PO 07/12/24 10:00 07/21/24 09:48 30 MG Ranolazine 500 mg BID PO 07/12/24 10:00 07/21/24 22:14 500 MG Metoprolol Succinate 100 mg DAILY PO 07/12/24 10:00 07/21/24 09:46 100 MG Ondansetron HCl 4 mg Q4HP PRN IV 07/12/24 00:30 07/22/24 06:56 4 MG Acetaminophen 650 mg Q6HP PRN PO 07/12/24 00:30 Lorazepam 1 mg Q5MINP PRN IV 07/12/24 13:00 07/19/24 05:18 1 MG Hydromorphone HCl 2 mg Q4HPRN PRN IV 07/13/24 11:45 07/22/24 05:57 2 MG Vancomycin HCl 0 ml @ 0 mls/hr UD IV 07/13/24 20:00 Meropenem 50 ml @ 17 mls/hr DAILY IV 07/14/24 10:00 07/22/24 10:00 17 MLS/HR Diazepam 10 mg DAILY PRN PO 07/14/24 10:45 07/17/24 11:49 10 MG Clonidine HCl 0.2 mg Q6HP PRN PO 07/15/24 12:15 07/18/24 19:13 0.2 MG Nicotine 1 patch DAILY TD 07/17/24 10:00 07/21/24 09:50 1 PATCH Sacubitril/ Valsartan 2 tab BID PO 07/17/24 10:00 07/21/24 22:13 2 TAB Pantoprazole Sodium 40 mg DAILY IV 07/23/24 10:00 Docusate Sodium 100 mg BID PO 07/22/24 22:00 objective Alert and oriented x 3 NAD Lungs CTA CV: RR, S4 gallop Abdomen: soft, NT No leg edema laboratory and microbiology Laboratory Tests 07/22/24 05:42 07/18/24 06:11 Test 07/18/24 06:11 Range/Units Serum Glucose 110 H 74-106 mg/dL Assessment/Plan 1. End-stage renal disease on hemodialysis TTS via AV fistula. 2. Intractable low back pain. 3. Diskitis/osteomyelitis of the L4-L5, scheduled for laminectomy 4. Hypertension uncontrolled 5. Hyperkalemia managed with dialysis. 6. Anemia of end-stage renal disease. 7. CAD. 8. Chronic pain syndrome. 9. Chronic systolic CHF (EF: 35%) Plan slight recommendations: HD on TTS schedule Next HD on Tuesday on the non dialysis days Analgesia. Continue phosphate binders Kody as needed for goal hemoglobin 10 to 11 grams/deciliter. Fluid restriction less than 1 L per day. Dietary Evaluation Review Comments: 1) Nepro Carb Steady 240ml daily (ordered per [facility] protocol) 2) Nephro-Katya 1 tab daily 3) continue current POC Expected Outcomes/Goals: To meet at least 75% estimated needs FU 3-5 days Plan discussed with: Patient ROSEANN DUBOSE MD July 22, 2024 13:23
[2024-07-22] MEDS: PANTOPRAZOLE 40 MG/10 ML VIAL INJ IV ONE (14:44)
[2024-07-22] MEDS: DOCUSATE SOD 100 MG CAP PO SCH (21:52)
[2024-07-22] MEDS: HYDROcodone-ACET 7.5/325MG TAB PO PRN (21:52)
[2024-07-23] VITALS (9 sets, daily range): BP systolic 114–169; BP diastolic 62–81; PULSE 65–79; RESP 16–18; TEMP 97.6–98.3; O2SAT 94–100
[2024-07-23] MEDS: PANTOPRAZOLE 40 MG/10 ML VIAL INJ IV SCH (10:10)
[2024-07-23 10:46] LABS: Basophils # (auto) 0.1 10 ^3/uL (0-0.2); Basophils % (auto) 1.4 % (0.0-2.0); Eosinophils # (auto) 0.3 10 ^3/uL (0-0.8); Eosinophils % (auto) 5.1 % (0.0-7.0); Hemoglobin 13.4 g/dL (13.5-17.5); Lymphocytes % (auto) 17.8 % (10.0-50.0); Mean Corpuscular Hemoglobin 30.6 pg (28.0-32.0); Mean Corpuscular Hgb Conc. 32.6 g/dL (32.0-36.0); Mean Corpuscular Volume 93.7 fL (80.0-100.0); Monocytes # (auto) 0.9 10 ^3/uL (0-1.3); Monocytes % (auto) 14.6 % (0.0-12.0); Neutrophils # (auto) 3.6 10 ^3/uL (1.6-8.6); Neutrophils % (auto) 61.1 % (37.0-80.0); Nucleated Red Blood Cells % 0.1 %; Platelet Count (auto) 136 10^3/uL (140-450); Red Blood Cells 4.37 10^6/uL (4.5-5.90); Red Cell Distribution Width 17.4 % (11.8-14.3); White Blood Cell 5.8 10^3/uL (4.4-10.8)
--- NOTE | 2024-07-23 12:46 | DVHPN2 ---
Reviewed: Care Plan Changes from previous H/P or p: No Changes Objective Vitals Vital Signs Date Time Temp Pulse Resp B/P (MAP) Pulse Ox O2 Delivery O2 Flow Rate FiO2 07/23/24 10:14 69 170/78 07/23/24 08:49 97.6 16 98 97.6 07/23/24 08:00 Nasal Cannula* 2 28 Intake/Output Intake and Output 07/23/24 07:00 Intake Total 1568 ml Output Total 600 ml Balance 968 ml Intake Oral 1518 ml IV Total 50 ml Output Urine Total 600 ml # Voids 2 # Bowel Movements 1 Medications Current Medications Medications Dose Ordered Sig/Gerard Route Start Time Stop Time Status Last Admin Dose Admin Amlodipine Besylate 10 mg DAILY PO 07/12/24 10:00 07/23/24 10:12 10 MG Atorvastatin Calcium 40 mg HS PO 07/12/24 22:00 07/22/24 21:51 40 MG Calcium Acetate 667 mg TIDWMEALS PO 07/12/24 08:00 07/23/24 12:02 667 MG Clopidogrel Bisulfate 75 mg DAILY PO 07/12/24 10:00 Hold 07/13/24 09:19 75 MG Furosemide 40 mg DAILY PO 07/12/24 10:00 07/23/24 10:13 40 MG Gabapentin 100 mg TID PO 07/12/24 06:00 07/23/24 05:30 100 MG Hydralazine HCl 50 mg Q8HR PO 07/12/24 06:00 07/23/24 05:30 50 MG Isosorbide Mononitrate 30 mg DAILY PO 07/12/24 10:00 07/23/24 10:14 30 MG Ranolazine 500 mg BID PO 07/12/24 10:00 07/23/24 10:14 500 MG Metoprolol Succinate 100 mg DAILY PO 07/12/24 10:00 07/23/24 10:14 100 MG Ondansetron HCl 4 mg Q4HP PRN IV 07/12/24 00:30 07/22/24 06:56 4 MG Acetaminophen 650 mg Q6HP PRN PO 07/12/24 00:30 Lorazepam 1 mg Q5MINP PRN IV 07/12/24 13:00 07/19/24 05:18 1 MG Vancomycin HCl 0 ml @ 0 mls/hr UD IV 07/13/24 20:00 Meropenem 50 ml @ 17 mls/hr DAILY IV 07/14/24 10:00 07/23/24 10:11 17 MLS/HR Diazepam 10 mg DAILY PRN PO 07/14/24 10:45 07/22/24 17:54 10 MG Clonidine HCl 0.2 mg Q6HP PRN PO 07/15/24 12:15 07/18/24 19:13 0.2 MG Nicotine 1 patch DAILY TD 07/17/24 10:00 07/21/24 09:50 1 PATCH Sacubitril/ Valsartan 2 tab BID PO 07/17/24 10:00 07/22/24 21:50 2 TAB Pantoprazole Sodium 40 mg DAILY IV 07/23/24 10:00 07/23/24 10:10 40 MG Docusate Sodium 100 mg BID PO 07/22/24 22:00 07/23/24 10:14 100 MG Acetaminophen/ Hydrocodone Bitart 1 tab Q8HP PRN PO 07/22/24 21:30 07/23/24 10:35 1 TAB Laboratory Results Laboratory Tests 07/18/24 06:11 07/23/24 10:25 Urinalysis Test 07/12/24 00:45 Urine Color Light-yellow (Yellow) Urine Clarity Clear (Clear) Urine pH 8.5 (5.0-9.0) Urine Specific [place] 1.010 (1.001-1.035) Urine Protein 3+ (Negative) H Urine Ketones Negative (Negative) Urine Blood Negative /uL (Negative) Urine Nitrite Negative (Negative) Urine Bilirubin Negative (Negative) Urine Urobilinogen Normal mg/dL (Negative) Urine Leukocyte Esterase Negative /uL (Negative) Urine RBC 1 /hpf (0 - 3) Urine Microscopic WBC 1 /HPF (0-3) Urine Squamous Epithelial Cells Few /hpf (<5) Urine Bacteria None seen /hpf (None Seen) Urine Glucose 3+ mg/dL (Normal) H Microbiology Microbiology Date/Time Source Procedure Growth Status 07/13/24 11:26 Blood Blood Culture - Final NO GROWTH AFTER 5 DAYS OF INCUBATION. Complete 07/12/24 06:10 Nose MRSA Screen - Final Complete Labs and/or images reviewed: Labs reviewed by me, Image(s) reviewed by me Assessment/Plan Assessment/Plan Chronic pain syndrome Right hip pain: Hip x-ray negative Acute osteomyelitis L4-5 by MRI L-spine: Consult by ID Dr. Cronin appreciated, placed on vancomycin and meropenem Spine surgery consult by Dr. Villafana appreciated planning for L- 5 laminectomy ; Dr. Villafana scheduled the patient for L-spine surgery at 10:00 a.m. on 07/24/24, patient says [place] does not work for him and asking for Dilaudid injection ESRD on hemodialysis by Dr. Byrd Accelerated hypertension Acute generalized Weakness Anemia of chronic disease Coronary artery disease status post stents x3 Plavix Acute on chronic CHF exacerbation ejection fraction 35 percent Diabetes History of seizures on gabapentin Hypertension Hyperlipidemia Obesity Chronic current smoker counseling Cardiology Dr. Cooper cleared for spine surgery Blood-tinged emesis: DC aspirin, start pantoprazole 40 mg IV daily Time spent 55 minutes Advanced care planning time 20 minutes Patient is full code PCP Scott Wade Previous hospital stay 04/15/24 to 05-02-24 Spoke to patient's five Marycruz [phone] one and advised the current diagnosis management Plan discussed with: Patient Date of Service: July 23, 2024 Billing Provider: SHARMIN AN MD Common Visit Codes: [id number] INP/OBS CARE(HIGH) SHARMIN AN MD July 23, 2024 12:46
[2024-07-23] MEDS: HYDROmorphone HCL 2 MG/ML VL/or syr IV PRN (14:22)
--- NOTE | 2024-07-23 14:59 | DVHPN2 ---
Progress Note - Dictate Date Seen: July 23, 2024 Has the PT tested + for MRSA If YES, has PT been informed?: No Medical Necessity Reason Pt with a Central, PICC or Fol: No Subjective no new symptoms vital signs Vital Sign Date Time Temp Pulse Resp B/P (MAP) Pulse Ox O2 Delivery O2 Flow Rate FiO2 07/23/24 14:22 71 19 122/78 07/23/24 13:00 98.0 95 98.0 07/23/24 08:00 Nasal Cannula* 2 28 Total Intake and Output 07/22/24 07/22/24 07/23/24 15:00 23:00 07:00 Intake Total 168 ml 900 ml 500 ml Output Total 600 ml Balance 168 ml 900 ml -100 ml medications Current Medications Medications Dose Ordered Sig/Gerard Route Start Time Stop Time Status Last Admin Dose Admin Amlodipine Besylate 10 mg DAILY PO 07/12/24 10:00 07/23/24 10:12 10 MG Atorvastatin Calcium 40 mg HS PO 07/12/24 22:00 07/22/24 21:51 40 MG Calcium Acetate 667 mg TIDWMEALS PO 07/12/24 08:00 07/23/24 12:02 667 MG Clopidogrel Bisulfate 75 mg DAILY PO 07/12/24 10:00 Hold 07/13/24 09:19 75 MG Furosemide 40 mg DAILY PO 07/12/24 10:00 07/23/24 10:13 40 MG Gabapentin 100 mg TID PO 07/12/24 06:00 07/23/24 14:15 100 MG Hydralazine HCl 50 mg Q8HR PO 07/12/24 06:00 07/23/24 14:20 50 MG Isosorbide Mononitrate 30 mg DAILY PO 07/12/24 10:00 07/23/24 10:14 30 MG Ranolazine 500 mg BID PO 07/12/24 10:00 07/23/24 10:14 500 MG Metoprolol Succinate 100 mg DAILY PO 07/12/24 10:00 07/23/24 10:14 100 MG Ondansetron HCl 4 mg Q4HP PRN IV 07/12/24 00:30 07/22/24 06:56 4 MG Acetaminophen 650 mg Q6HP PRN PO 07/12/24 00:30 Lorazepam 1 mg Q5MINP PRN IV 07/12/24 13:00 07/19/24 05:18 1 MG Vancomycin HCl 0 ml @ 0 mls/hr UD IV 07/13/24 20:00 Meropenem 50 ml @ 17 mls/hr DAILY IV 07/14/24 10:00 07/23/24 10:11 17 MLS/HR Diazepam 10 mg DAILY PRN PO 07/14/24 10:45 07/22/24 17:54 10 MG Clonidine HCl 0.2 mg Q6HP PRN PO 07/15/24 12:15 07/18/24 19:13 0.2 MG Nicotine 1 patch DAILY TD 07/17/24 10:00 07/21/24 09:50 1 PATCH Sacubitril/ Valsartan 2 tab BID PO 07/17/24 10:00 07/22/24 21:50 2 TAB Pantoprazole Sodium 40 mg DAILY IV 07/23/24 10:00 07/23/24 10:10 40 MG Docusate Sodium 100 mg BID PO 07/22/24 22:00 07/23/24 10:14 100 MG Hydromorphone HCl 2 mg Q4HPRN PRN IV 07/23/24 13:00 07/23/24 14:22 2 MG objective Alert and oriented x 3 NAD Lungs CTA CV: RR, S4 gallop Abdomen: soft, NT No leg edema laboratory and microbiology Laboratory Tests 07/23/24 10:25 07/18/24 06:11 Test 07/18/24 06:11 Range/Units Serum Glucose 110 H 74-106 mg/dL Assessment/Plan 1. End-stage renal disease on hemodialysis TTS via AV fistula. 2. Intractable low back pain. 3. Diskitis/osteomyelitis of the L4-L5 4. Hypertension uncontrolled 5. Hyperkalemia managed with dialysis. 6. Anemia of end-stage renal disease. 7. CAD. 8. Chronic pain syndrome. 9. Chronic systolic CHF (EF: 35%) Plan slight recommendations: HD today pending surgery tomorrow (Laminectomy) will then continue to MWF schedule while in [facility] on non dialysis days Analgesia. Continue phosphate binders Kody as needed for goal hemoglobin 10 to 11 grams/deciliter. Fluid restriction less than 1 L per day. Dietary Evaluation Review Comments: 1) Nepro Carb Steady 240ml daily (ordered per [facility] protocol) 2) Nephro-Katya 1 tab daily 3) continue current POC Expected Outcomes/Goals: To meet at least 75% estimated needs FU 3-5 days Plan discussed with: Patient ROSEANN DUBOSE MD July 23, 2024 14:59
[2024-07-24] VITALS (7 sets, daily range): BP systolic 120–164; BP diastolic 39–79; PULSE 67–77; RESP 14–18; TEMP 97.3–98.3; O2SAT 93–100
[2024-07-24] MEDS ORDERED: LIDOCAINE 2% TOPICAL JELLY 5 ML URJT TOP ONE (06:27)
[2024-07-24] MEDS ORDERED: DexAMETHasone SOD PHOS 10MG/1ML VIAL INJ ONE (06:27)
[2024-07-24] MEDS ORDERED: PROPOFOL 10 MG/ML 20 ML IV ONE (06:27)
[2024-07-24] MEDS ORDERED: MIDAZOLAM HCL 2MG/2ML 2ml VIAL (1mg/ml) ONE (06:27)
[2024-07-24] MEDS ORDERED: LIDOCAINE 1% INJ PF 5ML AMP ONE ×2 (06:27→07:52)
[2024-07-24] MEDS ORDERED: HYDROmorphone HCL 2 MG/ML VL/or syr ONE (06:27)
[2024-07-24] MEDS ORDERED: KETAMINE 50mg/ML 1ml syringe ONE (06:27)
[2024-07-24] MEDS ORDERED: fentaNYL CITRATE 5 ML ONE (06:27)
[2024-07-24] MEDS ORDERED: SODIUM CHLORIDE LOCK 50 ML ONE (06:27)
[2024-07-24] MEDS ORDERED: fentaNYL CITRATE 100 MCG/2 ML VL ONE (06:27)
[2024-07-24] MEDS ORDERED: ONDANSETRON HCL 4 MG/2 ML VIAL ONE (06:27)
[2024-07-24] MEDS ORDERED: MORPHINE SULFATE INJ 2 MG/ml SYRG IV PRN (07:15)
[2024-07-24] MEDS ORDERED: HYDROmorphone HCL 2 MG/ML VL/or syr IV PRN ×2 (07:15)
[2024-07-24] MEDS ORDERED: MORPHINE SULFATE 4 MG/ML SYR/VIAL IV PRN (07:15)
[2024-07-24 07:37] LABS: Basophils # (auto) 0.1 10 ^3/uL (0-0.2); Basophils % (auto) 1.3 % (0.0-2.0); Eosinophils # (auto) 0.3 10 ^3/uL (0-0.8); Eosinophils % (auto) 6.6 % (0.0-7.0); Hematocrit 41.2 % (41.0-53.0); Hemoglobin 13.7 g/dL (13.5-17.5); Lymphocytes # (auto) 1.2 10 ^3/uL (0.4-5.4); Lymphocytes % (auto) 25.7 % (10.0-50.0); Mean Corpuscular Hemoglobin 30.8 pg (28.0-32.0); Mean Corpuscular Hgb Conc. 33.2 g/dL (32.0-36.0); Mean Corpuscular Volume 92.8 fL (80.0-100.0); Monocytes # (auto) 0.7 10 ^3/uL (0-1.3); Monocytes % (auto) 15.3 % (0.0-12.0); Neutrophils # (auto) 2.4 10 ^3/uL (1.6-8.6); Neutrophils % (auto) 51.1 % (37.0-80.0); Nucleated Red Blood Cells % 0.1 %; Platelet Count (auto) 129 10^3/uL (140-450); Red Blood Cells 4.43 10^6/uL (4.5-5.90); Red Cell Distribution Width 17.2 % (11.8-14.3); White Blood Cell 4.8 10^3/uL (4.4-10.8)
--- NOTE | 2024-07-24 07:37 | PRN ---
Misceleneous Note Note Note Surgical/procedural interval history and physical note Elective surgery with Dr. Marlon Villafana for lumbar three-sacral one posterior spinal decompression with irrigation and debridement of deep spinal infection Current H and P was reviewed. The patient was reexamined. Re-evaluation of the patient confirms the necessity for the scheduled procedure. No change has occurred in the patient's condition since the H and P/ spine consult was complete no less than 30 days ago. Physicians verification of informed consent The patient was counseled regarding the procedure, its indications, risks, potential complications, and alternatives. The risks/benefits/alternatives of surgery were explained to the patient in detail including but not limited to , stroke, paralysis, myocardial infarction, bleeding, infection, co mplications of anesthesia (dry mouth, sore throat, dental damage, respiratory depression, blindness), postoperative infection, incomplete relief of symptoms, recurrence of symptoms, damage to blood vessels, nerves and tendons, pulmonary embolism and possible need for repeat surgery in the future. Pain, damage to surrounding soft tissue structures, need for reoperation or future surgery, persistent pain/disability/deformity, bone graft collapse or extrusion of interbody device, instrumentation failure, need for instrumentation removal, dural tear, temporary or permanent nerve root damage, deep vein thrombosis, pulmonary embolism, were described to the patient in detail and the patient wishes to proceed. No guarantee of surgical outcome/improvement was implied. All of the questions were answered thoroughly, patient was agreeable to proceed and consents were obtained. Physicians verification of informed consent for blood transfusion There is a reasonable possibility that blood transfusions will be necessary as a result of the patient's procedure. I have discussed the following with the patient/patient's legal field representatives director. An explanation of benefits and risks of the transfusion of blood or blood products and possible alternatives. All questions have been answered to the patient's or they are legal representatives satisfaction. Informed consent -The patient has been informed of: -The nature of the proposed care, treatment, services, medications, interventions or procedures. -Potential benefits, risks or side effects, including potential problems related to the procedure. -The likelihood of achieving care treatment and Service goals -Possible alternatives to the procedure/proposed care, treatment and service. -The relative risks, benefits and side effects related to alternatives, including possible results of not receiving care, treatment and services. -When indicated, any limitations on the confidentiality of the informed leaning from or about the patient. -if appropriate, the risks, benefits and alternatives of the drugs to be used for sedation/analgesia including moderate sedation. -if appropriate, patient has been provided information on the risks, benefits and alternatives to the transfusion of blood and/or blood products. -if appropriate, the patient has been provided information regarding the [employer] blood act. Call with questions Lena Loera [facility] Orthopaedic Spine Surgery nurse practitioner For Dr Frederic Villafana Patient was examined, chart reviewed, labs evaluated, and diagnostic studies and findings analyzed. Case was discussed with Dr. Marlon Villafana who formulated the plan of care. This medical document was created using an electronic medical record system with [employer] dictation system. Although this document has been carefully reviewed, there might still be some phonetic and typographical errors. These areas are purely typographical due to imperfections of the software programs, and do not reflect any compromise in the patient's medical care. MACKENZIE LOERA NP July 24, 2024 07:37
[2024-07-24 07:39] LABS: Potassium 4.9 mmol/L (3.5-5.1); Sodium 137 mmol/L (136-145)
[2024-07-24 07:40] LABS: Anion Gap 9 (5-15); Calcium 10.3 mg/dL (8.7-10.4)
[2024-07-24 07:45] LABS: BUN/Creatinine Ratio 3.7 (10.0-20.0)
[2024-07-24 07:46] LABS: Blood Urea Nitrogen 24 mg/dL (9-23); Carbon Dioxide 32 mmol/L (20-31); Chloride 96 mmol/L (98-107); Glucose 128 mg/dL (74-106)
[2024-07-24 08:04] LABS: INR 1.05 (0.9-1.15); Partial Thromboplastin Time 34.7 SEC (24.5-34.5); Prothrombin Time 11.1 sec (9.3-11.8)
[2024-07-24] MEDS ORDERED: SUGAMMADEX 200mg/2ml Vial (100MG/ML) IV ONE (09:30)
--- NOTE | 2024-07-24 10:04 | DVHOP2 ---
Operative Report - 2 Report Details Date: 07/24/24 Preop Diagnosis: Diskits/osteomyelitis lumbar spine fromlumbar 4 to sacral 1 Postop Diagnosis: same as pre op Surgeon: Marlon Hodge MD Circular Sawyer Stone: Carmina Loera NP Anesthesiologist: Dr. Pena Anesthesia: General Consent: The patient was informed of the risks and benefits of the procedure. These include but are not limited to complications of anesthesia, postoperative infection, incomplete relief of symptoms, recurrence of symptoms, damage to blood vessels, nerves and tendons, deep venous thrombosis, pulmonary embolism and possible need for repeat surgery in the future. Name of Procedure Performed see detailed note Procedure Details Procedure Details: pre op diagnosis: Diskitis/osteomyelitis lumbar spine from Lumbar 4 to sacral 1 with failure of conservative management for the past 6 weeks Post op diagnosis: same Procedure; 1. bilateral sacral 1 laminotomies/foraminotomies/facetectomies to decompress the central canal and bilateral sacral 1 nerve roots 2. lumbar 5 laminectomy with bilateral lumbar 5 foraminotomies/facetectomies to decompress central canal and bilateral lumbar 5 nerve roots 3. lumbar 4 laminectomy with bilateral lumbar 4 foraminotomies/facetectomies to decompress central canal and bilateral lumbar 4 nerve roots 4. bilateral lumbar 3 laminotomies foraminotomies and facetectomies to decompress central canal and bilateral lumbar 3 nerve roots 5. irrigation and debridement of deep lumbar spine infection 6. microscope for microdissection Surgeon: Dr. hodge Assist: Carmina Loera NP Anesthesia: general Fluids: see anes. note EBL: less than 100 cc Procedure Note: Patient was seen in the Pre Anesthesia Care Unit (PACU) and the operative site was initialed by me. All questions were answered to the patients satisfaction and chart reviewed. The patient was taken to the operative room where pre- operative antibiotics were given 30 minutes prior to incision. General anesthesia was induced and neuro-monitoring leads placed. Gates catheter was placed. The patient was turned prone onto the [facility] spinal table. While positioning, I made sure that the belly was free to allow proper expansion of the lungs. The hips were extended and all bony prominences padded. The shoulders were abducted 80 degree and the elbows flexed 100 degrees with no tension on the brachial plexus. I check the foot arterial pulses and they were palpable. The patient was prepped and draped and time out was taken at this time per usual protocol. At this time, the C-arm fluoroscope was brought in and was used to suni the incision borders proximally and distally. Using a Number 10 Blade, an incision was made extending it proximally and distally per C arm suni from the posterior spinous process of lumbar 3 to sacral 1 down to the lumbo- dorsal fascia. Bovie electrocautery to expose the lumbar 3,4,5 and sacral 1 laminae by retracting the deep back muscles laterally to each side Microscope brought in and Lexall rongeur was used toremove the posterior spinous processes of Lumbar 3,4,5 and sacral 1 Alternation kerison 3 and 4 rongeurs were used to complete the lumbar 5 and 4 laminectomies to decompress the central canal at these levels. nest I used alternating kerison 2 and 3 rongeurs to perform laminotomies enough bilaterally at lumbar 3 to be able to undercut the superior articular facets of lumbar 3 to perform foraminotmies/facetectomies at the lumbar 3 level. SImilar, foraminotomies and facetectomies were performed bilaterally at Lumbar 4 and 5 levels to decompress these nerve roots respectively and then bilateral sacral 1 laminotomies performed at sacral one and then foraminotomies and facetectomies perforemd to decompress bilateral sacral one nerve roots. I used a acosta ball hook to dissect around the dura to ensure there were no pockets of purulence and then a 50-50 mix of peroxide and normal saline performed followed by irrigation with irisept. Please note that the tissue was very warm consistent with an underlying inflammation occuring. Deep hemovac under lumbodorsal fascia interrupted 0 vicryl sutures to close the lumbodorsal fascia 2-0 vicryl interrupted sutures to close the Subcutaneous tissue and then farhana on the skin. Sterile dressings placed over the skin Pt. extubated and taken to revoery in unremarkable condition Condition Stable Disposition Still a Patient MARLON HODGE MD July 24, 2024 10:04
--- NOTE | 2024-07-24 11:42 | DVHPN2 ---
Progress Note - Dictate Date Seen: July 24, 2024 Has the PT tested + for MRSA If YES, has PT been informed?: No Medical Necessity Reason Pt with a Central, PICC or Fol: No Subjective no new symptoms vital signs Vital Sign Date Time Temp Pulse Resp B/P (MAP) Pulse Ox O2 Delivery O2 Flow Rate FiO2 07/24/24 10:03 Room Air 07/24/24 10:03 71 14 93 07/24/24 10:03 98.3 141/45 (77) 98.3 07/23/24 20:00 0 21 Total Intake and Output 07/23/24 07/23/24 07/24/24 15:00 23:00 07:00 Intake Total 716 ml 100 ml Output Total 100 ml Balance 716 ml 0 ml medications Current Medications Medications Dose Ordered Sig/Gerard Route Start Time Stop Time Status Last Admin Dose Admin Amlodipine Besylate 10 mg DAILY PO 07/12/24 10:00 07/23/24 10:12 10 MG Atorvastatin Calcium 40 mg HS PO 07/12/24 22:00 07/23/24 22:46 40 MG Calcium Acetate 667 mg TIDWMEALS PO 07/12/24 08:00 07/23/24 12:02 667 MG Clopidogrel Bisulfate 75 mg DAILY PO 07/12/24 10:00 Hold 07/13/24 09:19 75 MG Furosemide 40 mg DAILY PO 07/12/24 10:00 07/23/24 10:13 40 MG Gabapentin 100 mg TID PO 07/12/24 06:00 07/23/24 22:45 100 MG Hydralazine HCl 50 mg Q8HR PO 07/12/24 06:00 07/23/24 22:46 50 MG Isosorbide Mononitrate 30 mg DAILY PO 07/12/24 10:00 07/23/24 10:14 30 MG Ranolazine 500 mg BID PO 07/12/24 10:00 07/23/24 22:46 500 MG Metoprolol Succinate 100 mg DAILY PO 07/12/24 10:00 07/23/24 10:14 100 MG Ondansetron HCl 4 mg Q4HP PRN IV 07/12/24 00:30 07/22/24 06:56 4 MG Acetaminophen 650 mg Q6HP PRN PO 07/12/24 00:30 Lorazepam 1 mg Q5MINP PRN IV 07/12/24 13:00 07/19/24 05:18 1 MG Vancomycin HCl 0 ml @ 0 mls/hr UD IV 07/13/24 20:00 Meropenem 50 ml @ 17 mls/hr DAILY IV 07/14/24 10:00 07/23/24 10:11 17 MLS/HR Diazepam 10 mg DAILY PRN PO 07/14/24 10:45 07/22/24 17:54 10 MG Clonidine HCl 0.2 mg Q6HP PRN PO 07/15/24 12:15 07/18/24 19:13 0.2 MG Nicotine 1 patch DAILY TD 07/17/24 10:00 07/21/24 09:50 1 PATCH Sacubitril/ Valsartan 2 tab BID PO 07/17/24 10:00 07/22/24 21:50 2 TAB Pantoprazole Sodium 40 mg DAILY IV 07/23/24 10:00 07/23/24 10:10 40 MG Docusate Sodium 100 mg BID PO 07/22/24 22:00 07/23/24 22:46 100 MG Hydromorphone HCl 2 mg Q4HPRN PRN IV 07/23/24 13:00 07/24/24 05:43 2 MG objective Alert and oriented x 3 NAD Lungs CTA CV: RR, S4 gallop Abdomen: soft, NT No leg edema laboratory and microbiology Laboratory Tests 07/24/24 06:08 Test 07/24/24 06:08 Range/Units Serum Glucose 128 H 74-106 mg/dL Assessment/Plan 1. End-stage renal disease on hemodialysis TTS via AV fistula. 2. Intractable low back pain. 3. Diskitis/osteomyelitis of the L4-L5 4. Hypertension uncontrolled 5. Hyperkalemia managed with dialysis. 6. Anemia of end-stage renal disease. 7. CAD. 8. Chronic pain syndrome. 9. Chronic systolic CHF (EF: 35%) Plan slight recommendations: Laminectomy today s/p HD Tuesday Next HD on Tuesday will then continue to MWF schedule while in house [facility] on non dialysis days Analgesia. Continue phosphate binders Kody as needed for goal hemoglobin 10 to 11 grams/deciliter. Fluid restriction less than 1 L per day. Dietary Evaluation Review Comments: 1) Nepro Carb Steady 240ml daily (ordered per [facility] protocol) 2) Nephro-Katya 1 tab daily 3) continue current POC Expected Outcomes/Goals: To meet at least 75% estimated needs FU 3-5 days Plan discussed with: Patient ROSEANN DUBOSE MD July 24, 2024 11:42
--- NOTE | 2024-07-24 13:22 | DVHPN2 ---
Reviewed: Care Plan Changes from previous H/P or p: No Changes Objective Vitals Vital Signs Date Time Temp Pulse Resp B/P (MAP) Pulse Ox O2 Delivery O2 Flow Rate FiO2 07/24/24 11:53 97.3 67 15 149/39 (75) 93 97.3 07/24/24 10:03 Room Air 07/24/24 08:00 0 21 Intake/Output Intake and Output 07/24/24 07:00 Intake Total 816 ml Output Total 100 ml Balance 716 ml Intake Oral 716 ml IV Total 100 ml Output Urine Total 100 ml # Voids 1 Medications Current Medications Medications Dose Ordered Sig/Gerard Route Start Time Stop Time Status Last Admin Dose Admin Amlodipine Besylate 10 mg DAILY PO 07/12/24 10:00 07/23/24 10:12 10 MG Atorvastatin Calcium 40 mg HS PO 07/12/24 22:00 07/23/24 22:46 40 MG Calcium Acetate 667 mg TIDWMEALS PO 07/12/24 08:00 07/23/24 12:02 667 MG Clopidogrel Bisulfate 75 mg DAILY PO 07/12/24 10:00 Hold 07/13/24 09:19 75 MG Furosemide 40 mg DAILY PO 07/12/24 10:00 07/23/24 10:13 40 MG Gabapentin 100 mg TID PO 07/12/24 06:00 07/23/24 22:45 100 MG Hydralazine HCl 50 mg Q8HR PO 07/12/24 06:00 07/23/24 22:46 50 MG Isosorbide Mononitrate 30 mg DAILY PO 07/12/24 10:00 07/23/24 10:14 30 MG Ranolazine 500 mg BID PO 07/12/24 10:00 07/23/24 22:46 500 MG Metoprolol Succinate 100 mg DAILY PO 07/12/24 10:00 07/23/24 10:14 100 MG Ondansetron HCl 4 mg Q4HP PRN IV 07/12/24 00:30 07/22/24 06:56 4 MG Acetaminophen 650 mg Q6HP PRN PO 07/12/24 00:30 Lorazepam 1 mg Q5MINP PRN IV 07/12/24 13:00 07/19/24 05:18 1 MG Vancomycin HCl 0 ml @ 0 mls/hr UD IV 07/13/24 20:00 Meropenem 50 ml @ 17 mls/hr DAILY IV 07/14/24 10:00 07/23/24 10:11 17 MLS/HR Diazepam 10 mg DAILY PRN PO 07/14/24 10:45 07/22/24 17:54 10 MG Clonidine HCl 0.2 mg Q6HP PRN PO 07/15/24 12:15 07/18/24 19:13 0.2 MG Nicotine 1 patch DAILY TD 07/17/24 10:00 07/21/24 09:50 1 PATCH Sacubitril/ Valsartan 2 tab BID PO 07/17/24 10:00 07/22/24 21:50 2 TAB Pantoprazole Sodium 40 mg DAILY IV 07/23/24 10:00 07/24/24 12:39 40 MG Docusate Sodium 100 mg BID PO 07/22/24 22:00 07/24/24 12:38 100 MG Hydromorphone HCl 2 mg Q4HPRN PRN IV 07/23/24 13:00 07/24/24 05:43 2 MG Laboratory Results Laboratory Tests 07/24/24 06:08 Chemistry Test 07/24/24 06:08 Calcium Level 10.3 mg/dL (8.7-10.4) Coagulation Test 07/24/24 06:08 Prothrombin Time 11.1 sec (9.3-11.8) Prothrombin Time INR 1.05 (0.9-1.15) Activated Partial Thromboplast Time 34.7 SEC (24.5-34.5) H Urinalysis Test 07/12/24 00:45 Urine Color Light-yellow (Yellow) Urine Clarity Clear (Clear) Urine pH 8.5 (5.0-9.0) Urine Specific Fossil 1.010 (1.001-1.035) Urine Protein 3+ (Negative) H Urine Ketones Negative (Negative) Urine Blood Negative /uL (Negative) Urine Nitrite Negative (Negative) Urine Bilirubin Negative (Negative) Urine Urobilinogen Normal mg/dL (Negative) Urine Leukocyte Esterase Negative /uL (Negative) Urine RBC 1 /hpf (0 - 3) Urine Microscopic WBC 1 /HPF (0-3) Urine Squamous Epithelial Cells Few /hpf (<5) Urine Bacteria None seen /hpf (None Seen) Urine Glucose 3+ mg/dL (Normal) H Microbiology Microbiology Date/Time Source Procedure Growth Status 07/13/24 11:26 Blood Blood Culture - Final NO GROWTH AFTER 5 DAYS OF INCUBATION. Complete 07/12/24 06:10 Nose MRSA Screen - Final Complete Labs and/or images reviewed: Labs reviewed by me, Image(s) reviewed by me Assessment/Plan Assessment/Plan Chronic pain syndrome Right hip pain: Hip x-ray negative Acute osteomyelitis L4-5 by MRI L-spine: Consult by ID Dr. Mehrdad pollock, placed on vancomycin and meropenem Status post laminectomy and foraminectomy at multiple levels of the lumbar spine by Dr. Villafana on 07/24/2024 ESRD on hemodialysis by Dr. Byrd Accelerated hypertension Acute generalized Weakness Anemia of chronic disease Coronary artery disease status post stents x3 Plavix Acute on chronic CHF exacerbation ejection fraction 35 percent Diabetes History of seizures on gabapentin Hypertension Hyperlipidemia Obesity Chronic current smoker counseling Cardiology Dr. Cooper cleared for spine surgery Blood-tinged emesis: DC aspirin, start pantoprazole 40 mg IV daily Time spent 55 minutes Advanced care planning time 20 minutes Patient is full code PCP Scott Wade Previous hospital stay 04/15/24 to 05-02-24 Spoke to patient's five Marycruz [phone] one and advised the current diagnosis management Plan discussed with: Patient My Orders Orders - SHARMIN AN MD Procedure Category Date Status Time Fentanyl Citrate PHA 07/24/24 In Process 06:27 Date of Service: July 24, 2024 Billing Provider: SHARMIN AN MD Common Visit Codes: [id number] INP/OBS CARE(HIGH) SHARMIN AN MD July 24, 2024 13:22
--- NOTE | 2024-07-24 15:32 | DVH ---
INDICATION: PRE OP TECHNIQUE: Frontal view of the chest. COMPARISON: XY CHEST PORTABLE on DOS: 07/19/24, XY CHEST PORTABLE on DOS: 05/02/24, XY CHEST XRAY 1 VIE W on DOS: 04/15/24, XY CHEST XRAY 1 VIEW on DOS: 03/10/24, XY CHEST PORTABLE on DOS: 03/08/24 FINDINGS: Findings:. The heart and mediastinal contours are grossly unremarkable. There is no evidence of pleu ral disease. The lungs are clear. The bony structures of the chest are intact without fracture. Unchanged from prior study. IMPRESSION: 1. No evidence of acute disease.
[2024-07-24] MEDS: VANCOMYCIN 750mg/150ml 150 ML IV ONE (18:08)
--- NOTE | 2024-07-24 19:15 | DVH ---
C-ARM FLUOROSCOPY: PROCEDURE: L3-S1 posterior spinal decompression FLUOROSCOPY TIME: 7.9 seconds DAP: 3.35 mgy FINDINGS: Spot intraoperative C arm radiographs demonstrating lumbosacral spine decompression. IMPRESSION: Please refer to surgical report for detailed findings.
--- NOTE | 2024-07-24 22:50 | DVHPN2 ---
Consult Progress Note Date Seen: July 22, 2024 Subjective Patient reports: No new complaints (tolerating increased oral intake , no oopen wounds , has some hip pain ) Objective vital signs Vital Sign Date Time Temp Pulse Resp B/P (MAP) Pulse Ox O2 Delivery O2 Flow Rate FiO2 07/24/24 21:38 150/82 07/24/24 21:00 98.3 76 14 100 98.3 07/24/24 10:03 Room Air 07/24/24 08:00 0 21 Total Intake and Output 07/23/24 07/23/24 07/24/24 14:59 22:59 06:59 Intake Total 716 ml 100 ml Output Total 100 ml Balance 716 ml 0 ml medications Current Medications Medications Dose Ordered Sig/Gerard Route Start Time Stop Time Status Last Admin Dose Admin Amlodipine Besylate 10 mg DAILY PO 07/12/24 10:00 07/24/24 13:42 10 MG Atorvastatin Calcium 40 mg HS PO 07/12/24 22:00 07/24/24 21:35 40 MG Calcium Acetate 667 mg TIDWMEALS PO 07/12/24 08:00 07/24/24 18:08 667 MG Clopidogrel Bisulfate 75 mg DAILY PO 07/12/24 10:00 Hold 07/13/24 09:19 75 MG Furosemide 40 mg DAILY PO 07/12/24 10:00 07/24/24 13:55 40 MG Gabapentin 100 mg TID PO 07/12/24 06:00 07/24/24 21:35 100 MG Hydralazine HCl 50 mg Q8HR PO 07/12/24 06:00 07/24/24 21:38 50 MG Isosorbide Mononitrate 30 mg DAILY PO 07/12/24 10:00 07/24/24 17:22 30 MG Ranolazine 500 mg BID PO 07/12/24 10:00 07/24/24 21:35 500 MG Metoprolol Succinate 100 mg DAILY PO 07/12/24 10:00 07/24/24 17:23 100 MG Ondansetron HCl 4 mg Q4HP PRN IV 07/12/24 00:30 07/24/24 13:53 4 MG Acetaminophen 650 mg Q6HP PRN PO 07/12/24 00:30 Lorazepam 1 mg Q5MINP PRN IV 07/12/24 13:00 07/19/24 05:18 1 MG Vancomycin HCl 0 ml @ 0 mls/hr UD IV 07/13/24 20:00 Meropenem 50 ml @ 17 mls/hr DAILY IV 07/14/24 10:00 07/23/24 10:11 17 MLS/HR Diazepam 10 mg DAILY PRN PO 07/14/24 10:45 07/22/24 17:54 10 MG Clonidine HCl 0.2 mg Q6HP PRN PO 07/15/24 12:15 07/18/24 19:13 0.2 MG Nicotine 1 patch DAILY TD 07/17/24 10:00 07/21/24 09:50 1 PATCH Sacubitril/ Valsartan 2 tab BID PO 07/17/24 10:00 07/24/24 21:35 2 TAB Pantoprazole Sodium 40 mg DAILY IV 07/23/24 10:00 07/24/24 12:39 40 MG Docusate Sodium 100 mg BID PO 07/22/24 22:00 07/24/24 12:38 100 MG Hydromorphone HCl 2 mg Q4HPRN PRN IV 07/23/24 13:00 07/24/24 20:23 2 MG Ondansetron HCl 4 mg Q4HPRN PRN IV 07/24/24 14:00 laboratory and microbiology Laboratory Tests 07/24/24 06:08 Test 07/24/24 06:08 Range/Units Serum Glucose 128 H 74-106 mg/dL Problem List/Assessment/Plan Problems(with codes): (1) Acute chest pain (2) Intractable low back pain (3) Pneumonia, unspecified organism (4) End stage renal disease on dialysis (5) Chronic back pain (6) Acute on chronic systolic heart failure (7) Shortness of breath Problem List/Assessment/Plan Reviewed subjective, clinical findings, assessment and plan as described by Dr. Dugan Mr. Mikhail Mckee is a 59 year old male with a past medical history of active smoking history ,end stage renal disease , bedbound , COPD , seizures, were found to have a right buttock abscess last year that was treated with antibiotics , unclear where this was done . Presented with pneumonia here , klebsiella and MRSA growth here and was treated with vancomycin and cefepime for 6 weeks per culture sensitivities. Now is back with worsening lower extremity weakness and numbness of the legs , right hip pain. Ct was performed on his lower back and he has a progressive discitis and osteomyelitis with increased end plare destruction compression of the thecolphycodema and possible para spinal abscess. 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 Jaimes recommends holding plavix and will continue vancomycin and maripenum. 07/14: Findings of MRI are consistent with discitis and osteomyelitis . pre pertibral abscess appears smaller although not optimally characterized without IV contrast. remains prominent edema in the prevertebral soft tissue centered L4-L5 level edema and pedicals and parals in L4-L5 may be due to extension of osteomyelitis in this location or stress related changes. degenerate disc disease and facet disease in lumbar spine with associate spinal canal subarticular and neuronal phenomenon stenosis above 07/15: tolerated dialysis yesterday and blood cultures are no growth to date 07/16: unclear if upper neurological symptoms are related to potential spread of infection . 07/17: thin and emaciated , would be high risk for surgery in most scenarios 14: vancomycin levels are therapeutic and tolerating dialysis 515: weak but able to ambulate with assistance and awaiting surgery 516: still awaiting a time to go to the OR for surgery 517: awaiting OR time next week 518: shows no active signs of sepsis and awaiting surgery plan: - recommend nutrition consult to optimize patients dietary protein intake - recommend head Ct to rule out potential spread of infection in the head or neck - if theres any epidural component above it is covered by vancomycin and meropenum - recommend blood cultures - recommend said rate and CRP testing - recommend MRI without contrast of lumbar spine to further evaluate osteomyelitis and discitis - will require biopsy of spine and para spinal muscles that are infected and send for bacterial aerobic and anaerobic culturing when patient gets a surgical laminectomy Plan discussed with: Other Dietary Evaluation Review Comments: 1) Nepro Carb Steady 240ml daily (ordered per [facility] protocol) 2) Nephro-Katya 1 tab daily 3) continue current POC Expected Outcomes/Goals: To meet at least 75% estimated needs FU 3-5 days ENDY CAMP MD July 24, 2024 22:49
--- NOTE | 2024-07-24 22:52 | DVHPN2 ---
Consult Progress Note Date Seen: July 23, 2024 Subjective Patient reports: Other (no leg pain , pending procedure tomorrow , NPO , off anticoagulation for 1 week now and is going to get an operative debridementof lumbar spine and lumbar fusion ) Objective vital signs Vital Sign Date Time Temp Pulse Resp B/P (MAP) Pulse Ox O2 Delivery O2 Flow Rate FiO2 07/24/24 21:38 150/82 07/24/24 21:00 98.3 76 14 100 98.3 07/24/24 10:03 Room Air 07/24/24 08:00 0 21 Total Intake and Output 07/23/24 07/23/24 07/24/24 14:59 22:59 06:59 Intake Total 716 ml 100 ml Output Total 100 ml Balance 716 ml 0 ml medications Current Medications Medications Dose Ordered Sig/Gerard Route Start Time Stop Time Status Last Admin Dose Admin Amlodipine Besylate 10 mg DAILY PO 07/12/24 10:00 07/24/24 13:42 10 MG Atorvastatin Calcium 40 mg HS PO 07/12/24 22:00 07/24/24 21:35 40 MG Calcium Acetate 667 mg TIDWMEALS PO 07/12/24 08:00 07/24/24 18:08 667 MG Clopidogrel Bisulfate 75 mg DAILY PO 07/12/24 10:00 Hold 07/13/24 09:19 75 MG Furosemide 40 mg DAILY PO 07/12/24 10:00 07/24/24 13:55 40 MG Gabapentin 100 mg TID PO 07/12/24 06:00 07/24/24 21:35 100 MG Hydralazine HCl 50 mg Q8HR PO 07/12/24 06:00 07/24/24 21:38 50 MG Isosorbide Mononitrate 30 mg DAILY PO 07/12/24 10:00 07/24/24 17:22 30 MG Ranolazine 500 mg BID PO 07/12/24 10:00 07/24/24 21:35 500 MG Metoprolol Succinate 100 mg DAILY PO 07/12/24 10:00 07/24/24 17:23 100 MG Ondansetron HCl 4 mg Q4HP PRN IV 07/12/24 00:30 07/24/24 13:53 4 MG Acetaminophen 650 mg Q6HP PRN PO 07/12/24 00:30 Lorazepam 1 mg Q5MINP PRN IV 07/12/24 13:00 07/19/24 05:18 1 MG Vancomycin HCl 0 ml @ 0 mls/hr UD IV 07/13/24 20:00 Meropenem 50 ml @ 17 mls/hr DAILY IV 07/14/24 10:00 07/23/24 10:11 17 MLS/HR Diazepam 10 mg DAILY PRN PO 07/14/24 10:45 07/22/24 17:54 10 MG Clonidine HCl 0.2 mg Q6HP PRN PO 07/15/24 12:15 07/18/24 19:13 0.2 MG Nicotine 1 patch DAILY TD 07/17/24 10:00 07/21/24 09:50 1 PATCH Sacubitril/ Valsartan 2 tab BID PO 07/17/24 10:00 07/24/24 21:35 2 TAB Pantoprazole Sodium 40 mg DAILY IV 07/23/24 10:00 07/24/24 12:39 40 MG Docusate Sodium 100 mg BID PO 07/22/24 22:00 07/24/24 12:38 100 MG Hydromorphone HCl 2 mg Q4HPRN PRN IV 07/23/24 13:00 07/24/24 20:23 2 MG Ondansetron HCl 4 mg Q4HPRN PRN IV 07/24/24 14:00 laboratory and microbiology Laboratory Tests 07/24/24 06:08 Test 07/24/24 06:08 Range/Units Serum Glucose 128 H 74-106 mg/dL Problem List/Assessment/Plan Problems(with codes): (1) Acute chest pain (2) Intractable low back pain (3) Pneumonia, unspecified organism (4) End stage renal disease on dialysis (5) Chronic back pain (6) Acute on chronic systolic heart failure Problem List/Assessment/Plan Reviewed subjective, clinical findings, assessment and plan as described by Dr. Dugan Mr. Mikhail Mckee is a 59 year old male with a past medical history of active smoking history ,end stage renal disease , bedbound , COPD , seizures, were found to have a right buttock abscess last year that was treated with antibiotics , unclear where this was done . Presented with pneumonia here , klebsiella and MRSA growth here and was treated with vancomycin and cefepime for 6 weeks per culture sensitivities. Now is back with worsening lower extremity weakness and numbness of the legs , right hip pain. Ct was performed on his lower back and he has a progressive discitis and osteomyelitis with increased end plare destruction compression of the thecolphycodema and possible para spinal abscess. 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 Jaimes recommends holding plavix and will continue vancomycin and maripenum. 07/14: Findings of MRI are consistent with discitis and osteomyelitis . pre pertibral abscess appears smaller although not optimally characterized without IV contrast. remains prominent edema in the prevertebral soft tissue centered L4-L5 level edema and pedicals and parals in L4-L5 may be due to extension of osteomyelitis in this location or stress related changes. degenerate disc disease and facet disease in lumbar spine with associate spinal canal subarticular and neuronal phenomenon stenosis above 07/15: tolerated dialysis yesterday and blood cultures are no growth to date 07/16: unclear if upper neurological symptoms are related to potential spread of infection . 07/17: thin and emaciated , would be high risk for surgery in most scenarios 14: vancomycin levels are therapeutic and tolerating dialysis 515: weak but able to ambulate with assistance and awaiting surgery 516: still awaiting a time to go to the OR for surgery 517: awaiting OR time next week 518: shows no active signs of sepsis and awaiting surgery 5: Is going to get an operative debridement of patients lumbar spine and lumbar fusion tomorrow plan: - recommend nutrition consult to optimize patients dietary protein intake - recommend head Ct to rule out potential spread of infection in the head or neck - if theres any epidural component above it is covered by vancomycin and meropenum - recommend blood cultures - recommend said rate and CRP testing - recommend MRI without contrast of lumbar spine to further evaluate osteomyelitis and discitis - will require biopsy of spine and para spinal muscles that are infected and send for bacterial aerobic and anaerobic culturing when patient gets a surgical laminectomy Plan discussed with: Other Dietary Evaluation Review Comments: 1) Nepro Carb Steady 240ml daily (ordered per [facility] protocol) 2) Nephro-Katya 1 tab daily 3) continue current POC Expected Outcomes/Goals: To meet at least 75% estimated needs FU 3-5 days CONRADO,ENDY N MD July 24, 2024 22:52
--- NOTE | 2024-07-24 22:58 | DVHPN2 ---
Consult Progress Note Date Seen: July 24, 2024 Subjective Patient reports: Other (patient underwent operative debridement , has a vac drain and is endorsing some ongoing hip pain ) Objective vital signs Vital Sign Date Time Temp Pulse Resp B/P (MAP) Pulse Ox O2 Delivery O2 Flow Rate FiO2 07/24/24 21:38 150/82 07/24/24 21:00 98.3 76 14 100 98.3 07/24/24 10:03 Room Air 07/24/24 08:00 0 21 Total Intake and Output 07/23/24 07/23/24 07/24/24 14:59 22:59 06:59 Intake Total 716 ml 100 ml Output Total 100 ml Balance 716 ml 0 ml medications Current Medications Medications Dose Ordered Sig/Gerard Route Start Time Stop Time Status Last Admin Dose Admin Amlodipine Besylate 10 mg DAILY PO 07/12/24 10:00 07/24/24 13:42 10 MG Atorvastatin Calcium 40 mg HS PO 07/12/24 22:00 07/24/24 21:35 40 MG Calcium Acetate 667 mg TIDWMEALS PO 07/12/24 08:00 07/24/24 18:08 667 MG Clopidogrel Bisulfate 75 mg DAILY PO 07/12/24 10:00 Hold 07/13/24 09:19 75 MG Furosemide 40 mg DAILY PO 07/12/24 10:00 07/24/24 13:55 40 MG Gabapentin 100 mg TID PO 07/12/24 06:00 07/24/24 21:35 100 MG Hydralazine HCl 50 mg Q8HR PO 07/12/24 06:00 07/24/24 21:38 50 MG Isosorbide Mononitrate 30 mg DAILY PO 07/12/24 10:00 07/24/24 17:22 30 MG Ranolazine 500 mg BID PO 07/12/24 10:00 07/24/24 21:35 500 MG Metoprolol Succinate 100 mg DAILY PO 07/12/24 10:00 07/24/24 17:23 100 MG Ondansetron HCl 4 mg Q4HP PRN IV 07/12/24 00:30 07/24/24 13:53 4 MG Acetaminophen 650 mg Q6HP PRN PO 07/12/24 00:30 Lorazepam 1 mg Q5MINP PRN IV 07/12/24 13:00 07/19/24 05:18 1 MG Vancomycin HCl 0 ml @ 0 mls/hr UD IV 07/13/24 20:00 Meropenem 50 ml @ 17 mls/hr DAILY IV 07/14/24 10:00 07/23/24 10:11 17 MLS/HR Diazepam 10 mg DAILY PRN PO 07/14/24 10:45 07/22/24 17:54 10 MG Clonidine HCl 0.2 mg Q6HP PRN PO 07/15/24 12:15 07/18/24 19:13 0.2 MG Nicotine 1 patch DAILY TD 07/17/24 10:00 07/21/24 09:50 1 PATCH Sacubitril/ Valsartan 2 tab BID PO 07/17/24 10:00 07/24/24 21:35 2 TAB Pantoprazole Sodium 40 mg DAILY IV 07/23/24 10:00 07/24/24 12:39 40 MG Docusate Sodium 100 mg BID PO 07/22/24 22:00 07/24/24 12:38 100 MG Hydromorphone HCl 2 mg Q4HPRN PRN IV 07/23/24 13:00 07/24/24 20:23 2 MG Ondansetron HCl 4 mg Q4HPRN PRN IV 07/24/24 14:00 laboratory and microbiology Laboratory Tests 07/24/24 06:08 Test 07/24/24 06:08 Range/Units Serum Glucose 128 H 74-106 mg/dL Problem List/Assessment/Plan Problems(with codes): (1) Acute chest pain (2) Intractable low back pain (3) Pneumonia, unspecified organism (4) End stage renal disease on dialysis (5) Acute on chronic systolic heart failure (6) Chronic back pain (7) Bilateral leg weakness (8) Shortness of breath Problem List/Assessment/Plan Reviewed subjective, clinical findings, assessment and plan as described by Dr. Dugan Mr. Mikhail Mckee is a 59 year old male with a past medical history of active smoking history ,end stage renal disease , bedbound , COPD , seizures, were found to have a right buttock abscess last year that was treated with antibiotics , unclear where this was done . Presented with pneumonia here , klebsiella and MRSA growth here and was treated with vancomycin and cefepime for 6 weeks per culture sensitivities. Now is back with worsening lower extremity weakness and numbness of the legs , right hip pain. Ct was performed on his lower back and he has a progressive discitis and osteomyelitis with increased end plare destruction compression of the thecolphycodema and possible para spinal abscess. 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 Jaimes recommends holding plavix and will continue vancomycin and maripenum. 07/14: Findings of MRI are consistent with discitis and osteomyelitis . pre pertibral abscess appears smaller although not optimally characterized without IV contrast. remains prominent edema in the prevertebral soft tissue centered L4-L5 level edema and pedicals and parals in L4-L5 may be due to extension of osteomyelitis in this location or stress related changes. degenerate disc disease and facet disease in lumbar spine with associate spinal canal subarticular and neuronal phenomenon stenosis above 07/15: tolerated dialysis yesterday and blood cultures are no growth to date 07/16: unclear if upper neurological symptoms are related to potential spread of infection . 07/17: thin and emaciated , would be high risk for surgery in most scenarios 14: vancomycin levels are therapeutic and tolerating dialysis 515: weak but able to ambulate with assistance and awaiting surgery 516: still awaiting a time to go to the OR for surgery 517: awaiting OR time next week 18: shows no active signs of sepsis and awaiting surgery 07/23: Is going to get an operative debridement of patients lumbar spine and lumbar fusion tomorrow 07/24: patient underwent labitomes for anatomies fastetectomys as S 1 bilaterally , decompression of the central canal and bilateral sacral one nerve roots , lumbar 5 laminectomy , lumbar 4 laminectomy , bilaterally 3 laminectomy , lumbar 5 and 4 nerver roots , IND of the deep lumbar spine infection was done and cultures were obtained plan: - defer post op management of sacral spine to neurosurgeon , wound vac care per neurosurgeons recommendations - follow up on operative cultures - acquire a piccline - Recommend continue vancomycin and meropenem via piccline and Vancomycin can be delivered via dialysis line and continue for 6 weeks - follow up with patient as outpatient to [facility] if additional antibiotic therapy is needed in setting of chronic infection - recommend nutrition consult to optimize patients dietary protein intake - recommend head Ct to rule out potential spread of infection in the head or neck - if theres any epidural component above it is covered by vancomycin and meropenum - recommend blood cultures - recommend said rate and CRP testing - recommend MRI without contrast of lumbar spine to further evaluate osteomyelitis and discitis - will require biopsy of spine and para spinal muscles that are infected and send for bacterial aerobic and anaerobic culturing when patient gets a surgical laminectomy Plan discussed with: Other Dietary Evaluation Review Comments: 1) Nepro Carb Steady 240ml daily (ordered per [facility] protocol) 2) Nephro-Katya 1 tab daily 3) continue current POC Expected Outcomes/Goals: To meet at least 75% estimated needs FU 3-5 days ENDY CAMP MD July 24, 2024 22:58
[2024-07-25] VITALS (9 sets, daily range): BP systolic 113–162; BP diastolic 54–75; PULSE 70–76; RESP 13–20; TEMP 97.9–98.8; O2SAT 93–100
--- NOTE | 2024-07-25 11:59 | DVHPN2 ---
Progress Note - Surgical Date Seen: July 25, 2024 Post op day Post op day: 1 Subjective Patient reports: No new complaints Review of Systems: HEENT:Normal, CVS:Normal, RESPIRATORY:Normal, GI:Normal, :Normal, MSK:Normal, NEURO:Normal Objective Vital signs Vital Sign Date Time Temp Pulse Resp B/P (MAP) Pulse Ox O2 Delivery O2 Flow Rate FiO2 07/25/24 10:00 99 Nasal Cannula* 2 28 07/25/24 09:00 97.9 70 20 128/64 (85) 97.9 Total Intake and Output 07/24/24 07/24/24 07/25/24 15:00 23:00 07:00 Intake Total 585 ml 300 ml Output Total 1 ml 35 ml Balance -1 ml 550 ml 300 ml Medications Current Medications Medications Dose Ordered Sig/Gerard Route Start Time Stop Time Status Last Admin Dose Admin Amlodipine Besylate 10 mg DAILY PO 07/12/24 10:00 07/24/24 13:42 10 MG Atorvastatin Calcium 40 mg HS PO 07/12/24 22:00 07/24/24 21:35 40 MG Calcium Acetate 667 mg TIDWMEALS PO 07/12/24 08:00 07/25/24 08:16 667 MG Clopidogrel Bisulfate 75 mg DAILY PO 07/12/24 10:00 Hold 07/13/24 09:19 75 MG Furosemide 40 mg DAILY PO 07/12/24 10:00 07/24/24 13:55 40 MG Gabapentin 100 mg TID PO 07/12/24 06:00 07/25/24 05:49 100 MG Hydralazine HCl 50 mg Q8HR PO 07/12/24 06:00 07/25/24 05:49 50 MG Isosorbide Mononitrate 30 mg DAILY PO 07/12/24 10:00 07/24/24 17:22 30 MG Ranolazine 500 mg BID PO 07/12/24 10:00 07/25/24 10:19 500 MG Metoprolol Succinate 100 mg DAILY PO 07/12/24 10:00 07/24/24 17:23 100 MG Ondansetron HCl 4 mg Q4HP PRN IV 07/12/24 00:30 07/25/24 05:49 4 MG Acetaminophen 650 mg Q6HP PRN PO 07/12/24 00:30 Lorazepam 1 mg Q5MINP PRN IV 07/12/24 13:00 07/19/24 05:18 1 MG Meropenem 50 ml @ 17 mls/hr DAILY IV 07/14/24 10:00 07/23/24 10:11 17 MLS/HR Diazepam 10 mg DAILY PRN PO 07/14/24 10:45 07/25/24 09:32 10 MG Clonidine HCl 0.2 mg Q6HP PRN PO 07/15/24 12:15 07/18/24 19:13 0.2 MG Nicotine 1 patch DAILY TD 07/17/24 10:00 07/21/24 09:50 1 PATCH Sacubitril/ Valsartan 2 tab BID PO 07/17/24 10:00 07/24/24 21:35 2 TAB Pantoprazole Sodium 40 mg DAILY IV 07/23/24 10:00 07/25/24 09:54 40 MG Docusate Sodium 100 mg BID PO 07/22/24 22:00 07/24/24 12:38 100 MG Hydromorphone HCl 2 mg Q4HPRN PRN IV 07/23/24 13:00 07/25/24 06:18 2 MG Ondansetron HCl 4 mg Q4HPRN PRN IV 07/24/24 14:00 Laboratory Laboratory Tests 07/24/24 06:08 Test 07/24/24 06:08 Range/Units Serum Glucose 128 H 74-106 mg/dL Microbiology Date/Time Source Procedure Growth Status 07/24/24 09:20 Other Gram Stain - Final Resulted 07/24/24 09:20 Other Anaerobic Culture - Preliminary Resulted 07/24/24 09:20 Other Aerobic Culture - Preliminary Resulted 07/13/24 11:26 Blood Blood Culture - Final NO GROWTH AFTER 5 DAYS OF INCUBATION. Complete Examination: GENERAL:Normal, HEENT:Normal, NECK:Normal, LUNGS:Normal, CVS:Normal, ABDOMEN:Normal, MSK:Normal (Patient moving soft independently in bed able to stand up to site of bed use facilities independently), SKIN:Normal (Surgical site well approximated with farhana), NEURO:Normal (Patient verbalizes improvement in preoperative symptoms), :Normal Problem List/Assessment/Plan Problems: (1) Muscle spasm of back (2) Postoperative pain after spinal surgery Assessment and Plan Drain output is minimal since surgery only 45 mL recorded, we will keep drain in overnight. Plan to discontinue it tomorrow on 07/26/2024 PT evaluation and discharge recommendations Nursing to change dressing as needed, island dressing in place some strikethrough noted, surgical site well approximated with farhana, drain intact Continue care per admitting team's discretion Patient will need follow up appointment in two weeks for staple removal Plan for discontinuation of drain tomorrow 07/26/2024 Ensure patient is taking muscle relaxers as scheduled every 8 hours Optimal to keep patient off of any DVT prophylaxis for at least two weeks, consult Dr. Adair if there is a risk versus benefit discussion that is needed for DVT prophylaxis Patient is progressing well for discharge Call with questions Lena Ramos [facility] Orthopaedic Spine Surgery nurse practitioner For Dr Frederic Villafana Patient was examined, chart reviewed, labs evaluated, and diagnostic studies and findings analyzed. Case was discussed with Dr. Marlon Villafana who formulated the plan of care. This medical document was created using an electronic medical record system with [employer] dictation system. Although this document has been carefully reviewed, there might still be some phonetic and typographical errors. These areas are purely typographical due to imperfections of the software programs, and do not reflect any compromise in the patient's medical care. Plan discussed with Plan discussed with: Patient, Spouse, Other (Lolis olivia [phone]) Visit Coding Surgery Date of Service if different f: July 25, 2024 Billing Provider: MACKENZIE RAMOS NP Surgery Visit Codes: NOT BILLABLE MACKENZIE RAMOS NP July 25, 2024 11:59
--- NOTE | 2024-07-25 13:26 | DVHPN2 ---
Reviewed: Care Plan Changes from previous H/P or p: No Changes Objective Vitals Vital Signs Date Time Temp Pulse Resp B/P (MAP) Pulse Ox O2 Delivery O2 Flow Rate FiO2 07/25/24 10:00 99 Nasal Cannula* 2 28 07/25/24 09:00 97.9 70 20 128/64 (85) 97.9 Intake/Output Intake and Output 07/25/24 07:00 Intake Total 885 ml Output Total 36 ml Balance 849 ml Intake Oral 885 ml Drainage Total 36 ml # Voids 1 # Bowel Movements 1 Medications Current Medications Medications Dose Ordered Sig/Gerard Route Start Time Stop Time Status Last Admin Dose Admin Amlodipine Besylate 10 mg DAILY PO 07/12/24 10:00 07/24/24 13:42 10 MG Atorvastatin Calcium 40 mg HS PO 07/12/24 22:00 07/24/24 21:35 40 MG Calcium Acetate 667 mg TIDWMEALS PO 07/12/24 08:00 07/25/24 12:35 667 MG Clopidogrel Bisulfate 75 mg DAILY PO 07/12/24 10:00 Hold 07/13/24 09:19 75 MG Furosemide 40 mg DAILY PO 07/12/24 10:00 07/24/24 13:55 40 MG Gabapentin 100 mg TID PO 07/12/24 06:00 07/25/24 05:49 100 MG Hydralazine HCl 50 mg Q8HR PO 07/12/24 06:00 07/25/24 05:49 50 MG Isosorbide Mononitrate 30 mg DAILY PO 07/12/24 10:00 07/24/24 17:22 30 MG Ranolazine 500 mg BID PO 07/12/24 10:00 07/25/24 10:19 500 MG Metoprolol Succinate 100 mg DAILY PO 07/12/24 10:00 07/24/24 17:23 100 MG Ondansetron HCl 4 mg Q4HP PRN IV 07/12/24 00:30 07/25/24 05:49 4 MG Acetaminophen 650 mg Q6HP PRN PO 07/12/24 00:30 Lorazepam 1 mg Q5MINP PRN IV 07/12/24 13:00 07/19/24 05:18 1 MG Diazepam 10 mg DAILY PRN PO 07/14/24 10:45 07/25/24 09:32 10 MG Clonidine HCl 0.2 mg Q6HP PRN PO 07/15/24 12:15 07/18/24 19:13 0.2 MG Nicotine 1 patch DAILY TD 07/17/24 10:00 07/21/24 09:50 1 PATCH Sacubitril/ Valsartan 2 tab BID PO 07/17/24 10:00 07/24/24 21:35 2 TAB Pantoprazole Sodium 40 mg DAILY IV 07/23/24 10:00 07/25/24 09:54 40 MG Docusate Sodium 100 mg BID PO 07/22/24 22:00 07/24/24 12:38 100 MG Hydromorphone HCl 2 mg Q4HPRN PRN IV 07/23/24 13:00 07/25/24 06:18 2 MG Ondansetron HCl 4 mg Q4HPRN PRN IV 07/24/24 14:00 Laboratory Results Laboratory Tests 07/24/24 06:08 Urinalysis Test 07/12/24 00:45 Urine Color Light-yellow (Yellow) Urine Clarity Clear (Clear) Urine pH 8.5 (5.0-9.0) Urine Specific [place] 1.010 (1.001-1.035) Urine Protein 3+ (Negative) H Urine Ketones Negative (Negative) Urine Blood Negative /uL (Negative) Urine Nitrite Negative (Negative) Urine Bilirubin Negative (Negative) Urine Urobilinogen Normal mg/dL (Negative) Urine Leukocyte Esterase Negative /uL (Negative) Urine RBC 1 /hpf (0 - 3) Urine Microscopic WBC 1 /HPF (0-3) Urine Squamous Epithelial Cells Few /hpf (<5) Urine Bacteria None seen /hpf (None Seen) Urine Glucose 3+ mg/dL (Normal) H Microbiology Microbiology Date/Time Source Procedure Growth Status 07/24/24 09:20 Other Gram Stain - Final Resulted 07/24/24 09:20 Other Anaerobic Culture - Preliminary Resulted 07/24/24 09:20 Other Aerobic Culture - Preliminary Resulted 07/13/24 11:26 Blood Blood Culture - Final NO GROWTH AFTER 5 DAYS OF INCUBATION. Complete Labs and/or images reviewed: Labs reviewed by me, Image(s) reviewed by me Assessment/Plan Assessment/Plan Chronic pain syndrome Right hip pain: Hip x-ray negative Acute osteomyelitis L4-5 by MRI L-spine: Consult by ID Dr. Jack Cronin appreciated, placed on vancomycin and meropenem Status post laminectomy and foraminectomy at multiple levels of the lumbar spine by Dr. Villafana on 07/24/2024 ESRD on hemodialysis by Dr. Byrd Accelerated hypertension Acute generalized Weakness Anemia of chronic disease Coronary artery disease status post stents x3 Plavix Acute on chronic CHF exacerbation ejection fraction 35 percent Diabetes History of seizures on gabapentin Hypertension Hyperlipidemia Obesity Chronic current smoker counseling Cardiology Dr. Cooper cleared for spine surgery Blood-tinged emesis: DC aspirin, start pantoprazole [address] Villafana advised no blood thinners for two weeks if possible PICC line ordered Time spent 55 minutes Advanced care planning time 20 minutes Patient is full code PCP Scott Wade Previous hospital stay 04/15/24 to 05-02-24 Spoke to patient's five Marycruz [phone] one and advised the current diagnosis management Plan discussed with: Patient My Orders Orders - SHARMIN AN MD Procedure Category Date Status Time Ondansetron Hcl PHA 07/24/24 In Process (Zofran) 14:00 Chest Portable XY 07/24/24 Resulted 04:00 Pt Request For Service PT 07/25/24 Logged 13:03 Date of Service: July 25, 2024 Billing Provider: SHARMIN AN MD Common Visit Codes: [id number] INP/OBS CARE(HIGH) SHARMIN AN MD July 25, 2024 13:26
[2024-07-25] MEDS ORDERED: VANCOMYCIN PER PHARMACY 0 MG IV SCH (13:30)
--- NOTE | 2024-07-25 14:28 | ECG ---
[facility] Test Date: 2024-07-24 Test Time: 05:11:44 Pat Name: CARLOS KING Department: Room: 0291T B [facility] Manager: Nayana.[employer] : 1965 Requested By: ANIBAL ARBOLEDA Order Number: [id number] Reading MD: Aquiles Hobbs Measurements Intervals [place] Rate: 68 P: 74 SC: 186 QRS: 52 QRSD: 108 T: 100 QT: 411 QTc: 438 Interpretive Statements Sinus rhythm Nonspecific T abnormalities, lateral leads Borderline ST elevation, anterior leads Electronically Signed On 07-30-2024 10:32:23 PDT by Aquiles Hobbs Please click the below link to view image of tracing.
--- NOTE | 2024-07-25 16:25 | DVHPN2 ---
Progress Note - Dictate Date Seen: July 25, 2024 Has the PT tested + for MRSA If YES, has PT been informed?: No Medical Necessity Reason Pt with a Central, PICC or Fol: No Subjective No new complaints vital signs Vital Sign Date Time Temp Pulse Resp B/P (MAP) Pulse Ox O2 Delivery O2 Flow Rate FiO2 07/25/24 14:44 136/71 07/25/24 14:39 74 18 07/25/24 13:00 98.3 98.3 07/25/24 10:00 99 Nasal Cannula* 2 28 Total Intake and Output 07/24/24 07/24/24 07/25/24 15:00 23:00 07:00 Intake Total 585 ml 300 ml Output Total 1 ml 35 ml Balance -1 ml 550 ml 300 ml medications Current Medications Medications Dose Ordered Sig/Gerard Route Start Time Stop Time Status Last Admin Dose Admin Amlodipine Besylate 10 mg DAILY PO 07/12/24 10:00 07/24/24 13:42 10 MG Atorvastatin Calcium 40 mg HS PO 07/12/24 22:00 07/24/24 21:35 40 MG Calcium Acetate 667 mg TIDWMEALS PO 07/12/24 08:00 07/25/24 12:35 667 MG Clopidogrel Bisulfate 75 mg DAILY PO 07/12/24 10:00 Hold 07/13/24 09:19 75 MG Furosemide 40 mg DAILY PO 07/12/24 10:00 07/24/24 13:55 40 MG Gabapentin 100 mg TID PO 07/12/24 06:00 07/25/24 14:41 100 MG Hydralazine HCl 50 mg Q8HR PO 07/12/24 06:00 07/25/24 05:49 50 MG Isosorbide Mononitrate 30 mg DAILY PO 07/12/24 10:00 07/25/24 14:44 30 MG Ranolazine 500 mg BID PO 07/12/24 10:00 07/25/24 10:19 500 MG Metoprolol Succinate 100 mg DAILY PO 07/12/24 10:00 07/24/24 17:23 100 MG Ondansetron HCl 4 mg Q4HP PRN IV 07/12/24 00:30 07/25/24 14:50 4 MG Acetaminophen 650 mg Q6HP PRN PO 07/12/24 00:30 Lorazepam 1 mg Q5MINP PRN IV 07/12/24 13:00 07/19/24 05:18 1 MG Diazepam 10 mg DAILY PRN PO 07/14/24 10:45 07/25/24 09:32 10 MG Clonidine HCl 0.2 mg Q6HP PRN PO 07/15/24 12:15 07/18/24 19:13 0.2 MG Nicotine 1 patch DAILY TD 07/17/24 10:00 07/21/24 09:50 1 PATCH Sacubitril/ Valsartan 2 tab BID PO 07/17/24 10:00 07/25/24 14:44 2 TAB Pantoprazole Sodium 40 mg DAILY IV 07/23/24 10:00 07/25/24 09:54 40 MG Docusate Sodium 100 mg BID PO 07/22/24 22:00 07/25/24 14:47 100 MG Hydromorphone HCl 2 mg Q4HPRN PRN IV 07/23/24 13:00 07/25/24 14:39 2 MG Ondansetron HCl 4 mg Q4HPRN PRN IV 07/24/24 14:00 Meropenem 50 ml @ 17 mls/hr Q12HR IV 07/25/24 22:00 Vancomycin HCl 0 ml @ 0 mls/hr UD IV 07/25/24 13:30 objective Alert and oriented x 3 NAD Lungs CTA CV: RR, S4 gallop Abdomen: soft, NT No leg edema laboratory and microbiology Laboratory Tests 07/24/24 06:08 Test 07/24/24 06:08 Range/Units Serum Glucose 128 H 74-106 mg/dL Problem List 1. End-stage renal disease on hemodialysis MWF via AV fistula. 2. Intractable low back pain. 3. Diskitis/osteomyelitis of the L4-L5, s/p laminectomy 4. Hypertension uncontrolled 5. Hyperkalemia managed with dialysis. 6. Anemia of end-stage renal disease. 7. CAD. 8. Chronic pain syndrome. Plan slight recommendations: Had HD today Analgesia. Continue phosphate binders Kody as needed for goal hemoglobin 10 to 11 grams/deciliter. Fluid restriction less than 1 L per day. DC planning Dietary Evaluation Review Comments: 1) Nepro Carb Steady 240ml daily (ordered per ONS protocol) 2) Nephro-Katya 1 tab daily 3) continue current POC Expected Outcomes/Goals: To meet at least 75% estimated needs FU 3-5 days Plan discussed with: Patient IVORY LEARY MD July 25, 2024 16:25
[2024-07-25] MEDS: MEROPENEM 500MG IVPB 50 ML IV SCH (22:03)
[2024-07-26] VITALS (10 sets, daily range): BP systolic 107–153; BP diastolic 56–71; PULSE 65–75; RESP 14–19; TEMP 96.9–98.3; O2SAT 94–100
[2024-07-26 06:37] LABS: Basophils # (auto) 0 10 ^3/uL (0-0.2); Basophils % (auto) 0.7 % (0.0-2.0); Eosinophils # (auto) 0.2 10 ^3/uL (0-0.8); Eosinophils % (auto) 2.6 % (0.0-7.0); Hematocrit 34.7 % (41.0-53.0); Hemoglobin 11.5 g/dL (13.5-17.5); Lymphocytes # (auto) 0.8 10 ^3/uL (0.4-5.4); Lymphocytes % (auto) 12.7 % (10.0-50.0); Mean Corpuscular Hemoglobin 30.7 pg (28.0-32.0); Mean Corpuscular Volume 92.8 fL (80.0-100.0); Monocytes # (auto) 0.9 10 ^3/uL (0-1.3); Monocytes % (auto) 14.4 % (0.0-12.0); Neutrophils # (auto) 4.5 10 ^3/uL (1.6-8.6); Neutrophils % (auto) 69.6 % (37.0-80.0); Platelet Count (auto) 99 10^3/uL (140-450); Red Blood Cells 3.74 10^6/uL (4.5-5.90); White Blood Cell 6.4 10^3/uL (4.4-10.8)
[2024-07-26 06:51] LABS: Alanine Aminotransferase 13 U/L (7-40); Alkaline Phosphatase 82 U/L (46-116); Anion Gap 9 (5-15); Aspartate Aminotransferase 16 U/L (13-40); BUN/Creatinine Ratio 4.4 (10.0-20.0); Bilirubin, Total 0.4 mg/dL (0.2-1.0); Calcium 9.5 mg/dL (8.7-10.4); Potassium 4.9 mmol/L (3.5-5.1); Sodium 138 mmol/L (136-145); Total Protein 6.4 g/dL (5.7-8.2)
[2024-07-26 07:04] LABS: Blood Urea Nitrogen 27 mg/dL (9-23); Carbon Dioxide 33 mmol/L (20-31); Chloride 96 mmol/L (98-107); Glucose 134 mg/dL (74-106)
--- NOTE | 2024-07-26 07:11 | DVHPN2 ---
Progress Note - Surgical Date Seen: July 26, 2024 Post op day Post op day: 2 Subjective Patient reports: No new complaints, Feels better Review of Systems: HEENT:Normal, CVS:Normal, RESPIRATORY:Normal, GI:Normal, :Normal, MSK:Normal (Patient expressing vast improvement in preoperative symptoms), NEURO:Normal Objective Vital signs Vital Sign Date Time Temp Pulse Resp B/P (MAP) Pulse Ox O2 Delivery O2 Flow Rate FiO2 07/26/24 05:46 66 16 133/75 07/26/24 05:00 97.7 94 97.7 07/25/24 20:00 Nasal Cannula* 2 28 Total Intake and Output 07/25/24 07/25/24 07/26/24 15:00 23:00 07:00 Intake Total 690 ml 250 ml Output Total 20 ml Balance 670 ml 250 ml Medications Current Medications Medications Dose Ordered Sig/Gerard Route Start Time Stop Time Status Last Admin Dose Admin Amlodipine Besylate 10 mg DAILY PO 07/12/24 10:00 07/24/24 13:42 10 MG Atorvastatin Calcium 40 mg HS PO 07/12/24 22:00 07/25/24 21:49 40 MG Calcium Acetate 667 mg TIDWMEALS PO 07/12/24 08:00 07/25/24 17:58 667 MG Clopidogrel Bisulfate 75 mg DAILY PO 07/12/24 10:00 Hold 07/13/24 09:19 75 MG Furosemide 40 mg DAILY PO 07/12/24 10:00 07/24/24 13:55 40 MG Gabapentin 100 mg TID PO 07/12/24 06:00 07/26/24 05:21 100 MG Hydralazine HCl 50 mg Q8HR PO 07/12/24 06:00 07/25/24 05:49 50 MG Isosorbide Mononitrate 30 mg DAILY PO 07/12/24 10:00 07/25/24 14:44 30 MG Ranolazine 500 mg BID PO 07/12/24 10:00 07/25/24 21:50 500 MG Metoprolol Succinate 100 mg DAILY PO 07/12/24 10:00 07/25/24 17:28 100 MG Ondansetron HCl 4 mg Q4HP PRN IV 07/12/24 00:30 07/26/24 05:16 4 MG Acetaminophen 650 mg Q6HP PRN PO 07/12/24 00:30 Lorazepam 1 mg Q5MINP PRN IV 07/12/24 13:00 07/19/24 05:18 1 MG Diazepam 10 mg DAILY PRN PO 07/14/24 10:45 07/25/24 09:32 10 MG Clonidine HCl 0.2 mg Q6HP PRN PO 07/15/24 12:15 07/18/24 19:13 0.2 MG Nicotine 1 patch DAILY TD 07/17/24 10:00 07/21/24 09:50 1 PATCH Sacubitril/ Valsartan 2 tab BID PO 07/17/24 10:00 07/25/24 21:50 2 TAB Pantoprazole Sodium 40 mg DAILY IV 07/23/24 10:00 07/25/24 09:54 40 MG Docusate Sodium 100 mg BID PO 07/22/24 22:00 07/25/24 21:50 100 MG Hydromorphone HCl 2 mg Q4HPRN PRN IV 07/23/24 13:00 07/26/24 05:16 2 MG Ondansetron HCl 4 mg Q4HPRN PRN IV 07/24/24 14:00 Meropenem 50 ml @ 17 mls/hr Q12HR IV 07/25/24 22:00 07/25/24 22:03 17 MLS/HR Vancomycin HCl 0 ml @ 0 mls/hr UD IV 07/25/24 13:30 Laboratory Laboratory Tests 07/26/24 05:42 Test 07/26/24 05:42 Range/Units Serum Glucose 134 H 74-106 mg/dL Microbiology Date/Time Source Procedure Growth Status 07/24/24 09:20 Other Gram Stain - Final Resulted 07/24/24 09:20 Other Anaerobic Culture - Preliminary Resulted 07/24/24 09:20 Other Aerobic Culture - Preliminary Resulted 07/13/24 11:26 Blood Blood Culture - Final NO GROWTH AFTER 5 DAYS OF INCUBATION. Complete Examination: GENERAL:Normal, HEENT:Normal, NECK:Normal, LUNGS:Normal, CVS:Normal, CVS:Abnormal, MSK:Normal, SKIN:Normal (Discontinue drain 2.), NEURO:Normal, :Normal Problem List/Assessment/Plan Problems: (1) Postoperative pain after spinal surgery (2) Muscle spasm of back Assessment and Plan Drain output is minimal since surgery only 10 mL recorded, drain discontinued today patient tolerated well Patient is cleared to discharge from a spine surgery perspective Nursing to change dressing as needed, island dressing in place some strikethrough noted, surgical site well approximated with farhana, drain intact Continue care per admitting team's discretion Patient will need follow up appointment in two weeks for staple removal Drain has been discontinued Ensure patient is taking muscle relaxers as scheduled every 8 hours Optimal to keep patient off of any DVT prophylaxis for at least two weeks, consult Dr. Adair if there is a risk versus benefit discussion that is needed for DVT prophylaxis No barriers to discharge from a spine surgery perspective Call with questions Lena Ramos [facility] Orthopaedic Spine Surgery nurse practitioner For Dr Frederic Villafana Patient was examined, chart reviewed, labs evaluated, and diagnostic studies and findings analyzed. Case was discussed with Dr. Marlon Villafana who formulated the plan of care. This medical document was created using an electronic medical record system with [employer] dictation system. Although this document has been carefully reviewed, there might still be some phonetic and typographical errors. These areas are purely typographical due to imperfections of the software programs, and do not reflect any compromise in the patient's medical care. Plan discussed with Plan discussed with: Patient, Other (Megan DWYER extension [phone]) Visit Coding Surgery Date of Service if different f: July 26, 2024 Billing Provider: MACKENZIE RAMOS NP Surgery Visit Codes: NOT BILLABLE MACKENZIE RAMOS NP July 26, 2024 07:11
--- NOTE | 2024-07-26 08:41 | DVHPN2 ---
Reviewed: Care Plan Changes from previous H/P or p: No Changes Objective Vitals Vital Signs Date Time Temp Pulse Resp B/P (MAP) Pulse Ox O2 Delivery O2 Flow Rate FiO2 07/26/24 05:46 66 16 133/75 07/26/24 05:00 97.7 94 97.7 07/25/24 20:00 Nasal Cannula* 2 28 Intake/Output Intake and Output 07/26/24 07:00 Intake Total 940 ml Output Total 20 ml Balance 920 ml Intake Oral 890 ml IV Total 50 ml Output Urine Total 0 ml Drainage Total 20 ml Medications Current Medications Medications Dose Ordered Sig/Gerard Route Start Time Stop Time Status Last Admin Dose Admin Amlodipine Besylate 10 mg DAILY PO 07/12/24 10:00 07/24/24 13:42 10 MG Atorvastatin Calcium 40 mg HS PO 07/12/24 22:00 07/25/24 21:49 40 MG Calcium Acetate 667 mg TIDWMEALS PO 07/12/24 08:00 07/25/24 17:58 667 MG Clopidogrel Bisulfate 75 mg DAILY PO 07/12/24 10:00 Hold 07/13/24 09:19 75 MG Furosemide 40 mg DAILY PO 07/12/24 10:00 07/24/24 13:55 40 MG Gabapentin 100 mg TID PO 07/12/24 06:00 07/26/24 05:21 100 MG Hydralazine HCl 50 mg Q8HR PO 07/12/24 06:00 07/25/24 05:49 50 MG Isosorbide Mononitrate 30 mg DAILY PO 07/12/24 10:00 07/25/24 14:44 30 MG Ranolazine 500 mg BID PO 07/12/24 10:00 07/25/24 21:50 500 MG Metoprolol Succinate 100 mg DAILY PO 07/12/24 10:00 07/25/24 17:28 100 MG Ondansetron HCl 4 mg Q4HP PRN IV 07/12/24 00:30 07/26/24 05:16 4 MG Acetaminophen 650 mg Q6HP PRN PO 07/12/24 00:30 Lorazepam 1 mg Q5MINP PRN IV 07/12/24 13:00 07/19/24 05:18 1 MG Diazepam 10 mg DAILY PRN PO 07/14/24 10:45 07/25/24 09:32 10 MG Clonidine HCl 0.2 mg Q6HP PRN PO 07/15/24 12:15 07/18/24 19:13 0.2 MG Nicotine 1 patch DAILY TD 07/17/24 10:00 07/21/24 09:50 1 PATCH Sacubitril/ Valsartan 2 tab BID PO 07/17/24 10:00 07/25/24 21:50 2 TAB Pantoprazole Sodium 40 mg DAILY IV 07/23/24 10:00 07/25/24 09:54 40 MG Docusate Sodium 100 mg BID PO 07/22/24 22:00 07/25/24 21:50 100 MG Hydromorphone HCl 2 mg Q4HPRN PRN IV 07/23/24 13:00 07/26/24 05:16 2 MG Ondansetron HCl 4 mg Q4HPRN PRN IV 07/24/24 14:00 Meropenem 50 ml @ 17 mls/hr Q12HR IV 07/25/24 22:00 07/25/24 22:03 17 MLS/HR Vancomycin HCl 0 ml @ 0 mls/hr UD IV 07/25/24 13:30 Cyclobenzaprine HCl 10 mg TID PO 07/26/24 14:00 UNV Laboratory Results Laboratory Tests 07/26/24 05:42 Chemistry Test 07/26/24 05:42 Albumin 4.0 g/dL (3.2-4.8) Calcium Level 9.5 mg/dL (8.7-10.4) Total Protein 6.4 g/dL (5.7-8.2) LFT Test 07/26/24 05:42 Alanine Aminotransferase (ALT) 13 U/L (7-40) Alkaline Phosphatase 82 U/L (46-116) Aspartate Amino Transferase (AST) 16 U/L (13-40) Total Bilirubin 0.4 mg/dL (0.2-1.0) Urinalysis Test 07/12/24 00:45 Urine Color Light-yellow (Yellow) Urine Clarity Clear (Clear) Urine pH 8.5 (5.0-9.0) Urine Specific [place] 1.010 (1.001-1.035) Urine Protein 3+ (Negative) H Urine Ketones Negative (Negative) Urine Blood Negative /uL (Negative) Urine Nitrite Negative (Negative) Urine Bilirubin Negative (Negative) Urine Urobilinogen Normal mg/dL (Negative) Urine Leukocyte Esterase Negative /uL (Negative) Urine RBC 1 /hpf (0 - 3) Urine Microscopic WBC 1 /HPF (0-3) Urine Squamous Epithelial Cells Few /hpf (<5) Urine Bacteria None seen /hpf (None Seen) Urine Glucose 3+ mg/dL (Normal) H Microbiology Microbiology Date/Time Source Procedure Growth Status 07/24/24 09:20 Other Gram Stain - Final Resulted 07/24/24 09:20 Other Anaerobic Culture - Preliminary Resulted 07/24/24 09:20 Other Aerobic Culture - Preliminary Resulted 07/13/24 11:26 Blood Blood Culture - Final NO GROWTH AFTER 5 DAYS OF INCUBATION. Complete Labs and/or images reviewed: Labs reviewed by me, Image(s) reviewed by me Assessment/Plan Assessment/Plan Chronic pain syndrome Right hip pain: Hip x-ray negative Acute osteomyelitis L4-5 by MRI L-spine: Consult by ID Dr. Jack Cronin appreciated, placed on vancomycin and meropenem Status post laminectomy and foraminectomy at multiple levels of the lumbar spine by Dr. Villafana on 07/24/2024 ESRD on hemodialysis by Dr. Byrd Accelerated hypertension Acute generalized Weakness Anemia of chronic disease Coronary artery disease status post stents x3 Plavix Acute on chronic CHF exacerbation ejection fraction 35 percent Diabetes History of seizures on gabapentin Hypertension Hyperlipidemia Obesity Chronic current smoker counseling Cardiology Dr. Cooper cleared for spine surgery Blood-tinged emesis: DC aspirin, start pantoprazole [address] Villafana advised no blood thinners for two weeks if possible PICC line ordered Time spent 55 minutes Advanced care planning time 20 minutes Patient is full code PCP Scott Wade Previous hospital stay 04/15/24 to 05-02-24 Spoke to patient's five Marycruz [phone] one and advised the current diagnosis management Physical therapy ordered Placed on muscle relaxant Flexeril per ortho recommendation Patient needs IV meropenem and vancomycin for six weeks (SNF/ Home Health) Possible discharge on 07-30-24 Mon Plan discussed with: Patient My Orders Orders - SHARMIN AN MD Procedure Category Date Status Time Pt Request For Service PT 07/25/24 Logged 13:03 Meropenem 500mg Ivpb PHA 07/25/24 In Process (Merrem 500mg/Ns) 22:00 Vancomycin Per PHA 07/25/24 In Process Pharmacy 13:30 * Picc Line Consult CONS 07/25/24 Transmitted 13:31 Complete Blood Count LAB 07/27/24 Verified 05:00 Complete Blood Count LAB 07/28/24 Verified 05:00 Comprehensive LAB 07/27/24 Verified Metabolic Panel 05:00 Comprehensive LAB 07/28/24 Verified Metabolic Panel 05:00 Vancomycin Per SEAN 07/25/24 In Process Pharmacy Protoc 15:44 Cyclobenzaprine PHA 07/26/24 Logged Tablet (Flexeril 14:00 Date of Service: July 26, 2024 Billing Provider: SHARMIN AN MD Common Visit Codes: [id number] INP/OBS CARE(HIGH) SHARMIN AN MD July 26, 2024 08:41
[2024-07-26] MEDS: LIDOCAINE 1% (LOCAL ANESTH.) PF 5ml SDV ID ONE (10:00)
[2024-07-26] MEDS: SODIUM CHLOR 0.9% PF (SALINE LOCK) 10ML VIAL/SYR IV SCH (10:14)
--- NOTE | 2024-07-26 11:50 | DVHPN2 ---
Consult Progress Note Date Seen: July 25, 2024 Subjective Patient reports: Other (started on a diet , wound vac draining ongoing drainage with considerable amounts . has not yet been started on blood thinners ) Objective vital signs Vital Sign Date Time Temp Pulse Resp B/P (MAP) Pulse Ox O2 Delivery O2 Flow Rate FiO2 07/26/24 10:01 74 16 128/71 07/26/24 08:49 96.9 100 96.9 07/25/24 20:00 Nasal Cannula* 2 28 Total Intake and Output 07/25/24 07/25/24 07/26/24 15:00 23:00 07:00 Intake Total 690 ml 250 ml Output Total 20 ml Balance 670 ml 250 ml medications Current Medications Medications Dose Ordered Sig/Gerard Route Start Time Stop Time Status Last Admin Dose Admin Amlodipine Besylate 10 mg DAILY PO 07/12/24 10:00 07/26/24 10:00 10 MG Atorvastatin Calcium 40 mg HS PO 07/12/24 22:00 07/25/24 21:49 40 MG Calcium Acetate 667 mg TIDWMEALS PO 07/12/24 08:00 07/26/24 10:00 667 MG Clopidogrel Bisulfate 75 mg DAILY PO 07/12/24 10:00 Hold 07/13/24 09:19 75 MG Furosemide 40 mg DAILY PO 07/12/24 10:00 07/26/24 10:00 40 MG Gabapentin 100 mg TID PO 07/12/24 06:00 07/26/24 05:21 100 MG Hydralazine HCl 50 mg Q8HR PO 07/12/24 06:00 07/25/24 05:49 50 MG Isosorbide Mononitrate 30 mg DAILY PO 07/12/24 10:00 07/26/24 09:59 30 MG Ranolazine 500 mg BID PO 07/12/24 10:00 07/26/24 10:00 500 MG Metoprolol Succinate 100 mg DAILY PO 07/12/24 10:00 07/26/24 09:59 100 MG Acetaminophen 650 mg Q6HP PRN PO 07/12/24 00:30 Lorazepam 1 mg Q5MINP PRN IV 07/12/24 13:00 07/19/24 05:18 1 MG Diazepam 10 mg DAILY PRN PO 07/14/24 10:45 07/25/24 09:32 10 MG Clonidine HCl 0.2 mg Q6HP PRN PO 07/15/24 12:15 07/18/24 19:13 0.2 MG Nicotine 1 patch DAILY TD 07/17/24 10:00 07/21/24 09:50 1 PATCH Sacubitril/ Valsartan 2 tab BID PO 07/17/24 10:00 07/26/24 09:58 2 TAB Pantoprazole Sodium 40 mg DAILY IV 07/23/24 10:00 07/26/24 10:00 40 MG Docusate Sodium 100 mg BID PO 07/22/24 22:00 07/26/24 10:00 100 MG Hydromorphone HCl 2 mg Q4HPRN PRN IV 07/23/24 13:00 07/26/24 10:01 2 MG Ondansetron HCl 4 mg Q4HPRN PRN IV 07/24/24 14:00 Meropenem 50 ml @ 17 mls/hr Q12HR IV 07/25/24 22:00 07/26/24 10:14 17 MLS/HR Vancomycin HCl 0 ml @ 0 mls/hr UD IV 07/25/24 13:30 Cyclobenzaprine HCl 10 mg TID PO 07/26/24 14:00 Sodium Chloride 10 ml QSHIFT@10,22 IV 07/26/24 10:00 07/26/24 10:14 10 ML laboratory and microbiology Laboratory Tests 07/26/24 05:42 Test 07/26/24 05:42 Range/Units Serum Glucose 134 H 74-106 mg/dL Problem List/Assessment/Plan Problems(with codes): (1) Postoperative pain after spinal surgery (2) Muscle spasm of back (3) Acute chest pain (4) Intractable low back pain (5) Pneumonia, unspecified organism (6) End stage renal disease on dialysis (7) Chronic back pain Problem List/Assessment/Plan Reviewed subjective, clinical findings, assessment and plan as described by Dr. Dugan Mr. Mikhail Mckee is a 59 year old male with a past medical history of active smoking history ,end stage renal disease , bedbound , COPD , seizures, were found to have a right buttock abscess last year that was treated with antibiotics , unclear where this was done . Presented with pneumonia here , klebsiella and MRSA growth here and was treated with vancomycin and cefepime for 6 weeks per culture sensitivities. Now is back with worsening lower extremity weakness and numbness of the legs , right hip pain. Ct was performed on his lower back and he has a progressive discitis and osteomyelitis with increased end plare destruction compression of the thecolphycodema and possible para spinal abscess. 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 Jaimes recommends holding plavix and will continue vancomycin and maripenum. 07/14: Findings of MRI are consistent with discitis and osteomyelitis . pre pertibral abscess appears smaller although not optimally characterized without IV contrast. remains prominent edema in the prevertebral soft tissue centered L4-L5 level edema and pedicals and parals in L4-L5 may be due to extension of osteomyelitis in this location or stress related changes. degenerate disc disease and facet disease in lumbar spine with associate spinal canal subarticular and neuronal phenomenon stenosis above 07/15: tolerated dialysis yesterday and blood cultures are no growth to date 07/16: unclear if upper neurological symptoms are related to potential spread of infection . 07/17: thin and emaciated , would be high risk for surgery in most scenarios 07/18: vancomycin levels are therapeutic and tolerating dialysis 15: weak but able to ambulate with assistance and awaiting surgery 16: still awaiting a time to go to the OR for surgery 07/21: awaiting OR time next week 07/22: shows no active signs of sepsis and awaiting surgery 07/23: Is going to get an operative debridement of patients lumbar spine and lumbar fusion tomorrow 07/24: patient underwent labitomes for anatomies fastetectomys as S 1 bilaterally , decompression of the central canal and bilateral sacral one nerve roots , lumbar 5 laminectomy , lumbar 4 laminectomy , bilaterally 3 laminectomy , lumbar 5 and 4 nerver roots , IND of the deep lumbar spine infection was done and cultures were obtained 07/25: tolerating diet , awaiting operative culture results which currently show no organisms plan: - defer post op management of sacral spine to neurosurgeon , wound vac care per neurosurgeons recommendations - follow up on operative cultures - acquire a piccline - Recommend continue vancomycin and meropenem via piccline and Vancomycin can be delivered via dialysis line and continue for 6 weeks - follow up with patient as outpatient to fetermine if additional antibiotic therapy is needed in setting of chronic infection - recommend nutrition consult to optimize patients dietary protein intake - recommend head Ct to rule out potential spread of infection in the head or neck - if theres any epidural component above it is covered by vancomycin and meropenum - recommend blood cultures - recommend said rate and CRP testing - recommend MRI without contrast of lumbar spine to further evaluate osteomyelitis and discitis - will require biopsy of spine and para spinal muscles that are infected and send for bacterial aerobic and anaerobic culturing when patient gets a surgical laminectomy Plan discussed with: Other Dietary Evaluation Review Comments: 1) Nepro Carb Steady 240ml daily (ordered per ONS protocol) 2) Nephro-Katya 1 tab daily 3) continue current POC Expected Outcomes/Goals: To meet at least 75% estimated needs FU 3-5 days ENDY CAMP MD July 26, 2024 11:50
[2024-07-26] MEDS: CYCLOBENZAPRINE HCL 10 MG TAB PO SCH (15:51)
[2024-07-26 16:43] LABS: Urine Bacteria FEW /hpf (None Seen); Urine Blood Negative /uL (Negative); Urine Clarity Turbid (Clear); Urine Color Yellow (Yellow); Urine Hyaline Cast FEW /lpf (0 - 2); Urine Protein, UAD 3+ (Negative); Urine Specific Gravity 1.015 (1.001-1.035); Urine Squamous Epithelial Cell FEW /hpf (<5); Urine Urobilinogen Normal (Negative); Urine WBC 5 /HPF (0-3); Urine pH 8.5 (5.0-9.0)
--- NOTE | 2024-07-26 17:46 | DVHPN2 ---
Progress Note - Dictate Date Seen: July 26, 2024 Has the PT tested + for MRSA If YES, has PT been informed?: No Medical Necessity Reason Pt with a Central, PICC or Fol: No Subjective No new complaints vital signs Vital Sign Date Time Temp Pulse Resp B/P (MAP) Pulse Ox O2 Delivery O2 Flow Rate FiO2 07/26/24 16:47 98.1 72 16 107/56 (73) 96 98.1 07/26/24 10:19 Nasal Cannula* 2 28 Total Intake and Output 07/25/24 07/25/24 07/26/24 15:00 23:00 07:00 Intake Total 690 ml 250 ml Output Total 20 ml Balance 670 ml 250 ml medications Current Medications Medications Dose Ordered Sig/Gerard Route Start Time Stop Time Status Last Admin Dose Admin Amlodipine Besylate 10 mg DAILY PO 07/12/24 10:00 07/26/24 10:00 10 MG Atorvastatin Calcium 40 mg HS PO 07/12/24 22:00 07/25/24 21:49 40 MG Calcium Acetate 667 mg TIDWMEALS PO 07/12/24 08:00 07/26/24 12:53 667 MG Clopidogrel Bisulfate 75 mg DAILY PO 07/12/24 10:00 Hold 07/13/24 09:19 75 MG Furosemide 40 mg DAILY PO 07/12/24 10:00 07/26/24 10:00 40 MG Gabapentin 100 mg TID PO 07/12/24 06:00 07/26/24 15:51 100 MG Hydralazine HCl 50 mg Q8HR PO 07/12/24 06:00 07/25/24 05:49 50 MG Isosorbide Mononitrate 30 mg DAILY PO 07/12/24 10:00 07/26/24 09:59 30 MG Ranolazine 500 mg BID PO 07/12/24 10:00 07/26/24 10:00 500 MG Metoprolol Succinate 100 mg DAILY PO 07/12/24 10:00 07/26/24 09:59 100 MG Acetaminophen 650 mg Q6HP PRN PO 07/12/24 00:30 Lorazepam 1 mg Q5MINP PRN IV 07/12/24 13:00 07/19/24 05:18 1 MG Diazepam 10 mg DAILY PRN PO 07/14/24 10:45 07/25/24 09:32 10 MG Clonidine HCl 0.2 mg Q6HP PRN PO 07/15/24 12:15 07/18/24 19:13 0.2 MG Nicotine 1 patch DAILY TD 07/17/24 10:00 07/21/24 09:50 1 PATCH Sacubitril/ Valsartan 2 tab BID PO 07/17/24 10:00 07/26/24 09:58 2 TAB Pantoprazole Sodium 40 mg DAILY IV 07/23/24 10:00 07/26/24 10:00 40 MG Docusate Sodium 100 mg BID PO 07/22/24 22:00 07/26/24 10:00 100 MG Hydromorphone HCl 2 mg Q4HPRN PRN IV 07/23/24 13:00 07/26/24 10:01 2 MG Ondansetron HCl 4 mg Q4HPRN PRN IV 07/24/24 14:00 Meropenem 50 ml @ 17 mls/hr Q12HR IV 07/25/24 22:00 07/26/24 10:14 17 MLS/HR Vancomycin HCl 0 ml @ 0 mls/hr UD IV 07/25/24 13:30 Cyclobenzaprine HCl 10 mg TID PO 07/26/24 14:00 07/26/24 15:51 10 MG Sodium Chloride 10 ml QSHIFT@10,22 IV 07/26/24 10:00 07/26/24 10:14 10 ML objective Alert and oriented x 3 NAD Lungs CTA CV: RR, S4 gallop Abdomen: soft, NT No leg edema laboratory and microbiology Laboratory Tests 07/26/24 05:42 Test 07/26/24 05:42 Range/Units Serum Glucose 134 H 74-106 mg/dL Problem List 1. End-stage renal disease on hemodialysis MWF via AV fistula. 2. Intractable low back pain. 3. Diskitis/osteomyelitis of the L4-L5, s/p laminectomy 4. Hypertension uncontrolled 5. Hyperkalemia managed with dialysis. 6. Anemia of end-stage renal disease. 7. CAD. 8. Chronic pain syndrome. Plan slight recommendations: Having HD again today due to dialysis not being available on Tuesday due to nurse shortage. Pt is ok with having HD again today Analgesia. Continue phosphate binders Kody as needed for goal hemoglobin 10 to 11 grams/deciliter. Fluid restriction less than 1 L per day. DC planning Dietary Evaluation Review Comments: 1) Nepro Carb Steady 240ml daily (ordered per ONS protocol) 2) Nephro-Katya 1 tab daily 3) continue current POC Expected Outcomes/Goals: To meet at least 75% estimated needs FU 3-5 days Plan discussed with: Patient IVORY LEARY MD July 26, 2024 17:46
[2024-07-26] MEDS: ONDANSETRON HCL 4 MG/2 ML VIAL IV PRN (20:02)
--- NOTE | 2024-07-26 21:58 | DVHPN2 ---
Consult Progress Note Date Seen: July 26, 2024 Subjective Patient reports: Other (tolerating piccline and wound vac ) Objective vital signs Vital Sign Date Time Temp Pulse Resp B/P (MAP) Pulse Ox O2 Delivery O2 Flow Rate FiO2 07/26/24 21:18 137/68 07/26/24 20:57 98.3 73 16 95 98.3 07/26/24 20:00 Room Air* 0 21 Total Intake and Output 07/25/24 07/25/24 07/26/24 15:00 23:00 07:00 Intake Total 690 ml 250 ml Output Total 20 ml Balance 670 ml 250 ml medications Current Medications Medications Dose Ordered Sig/Gerard Route Start Time Stop Time Status Last Admin Dose Admin Amlodipine Besylate 10 mg DAILY PO 07/12/24 10:00 07/26/24 10:00 10 MG Atorvastatin Calcium 40 mg HS PO 07/12/24 22:00 07/26/24 21:17 40 MG Calcium Acetate 667 mg TIDWMEALS PO 07/12/24 08:00 07/26/24 18:00 667 MG Clopidogrel Bisulfate 75 mg DAILY PO 07/12/24 10:00 Hold 07/13/24 09:19 75 MG Furosemide 40 mg DAILY PO 07/12/24 10:00 07/26/24 10:00 40 MG Gabapentin 100 mg TID PO 07/12/24 06:00 07/26/24 21:17 100 MG Hydralazine HCl 50 mg Q8HR PO 07/12/24 06:00 07/26/24 21:18 50 MG Isosorbide Mononitrate 30 mg DAILY PO 07/12/24 10:00 07/26/24 09:59 30 MG Ranolazine 500 mg BID PO 07/12/24 10:00 07/26/24 21:18 500 MG Metoprolol Succinate 100 mg DAILY PO 07/12/24 10:00 07/26/24 09:59 100 MG Acetaminophen 650 mg Q6HP PRN PO 07/12/24 00:30 Lorazepam 1 mg Q5MINP PRN IV 07/12/24 13:00 07/19/24 05:18 1 MG Diazepam 10 mg DAILY PRN PO 07/14/24 10:45 07/25/24 09:32 10 MG Clonidine HCl 0.2 mg Q6HP PRN PO 07/15/24 12:15 07/18/24 19:13 0.2 MG Nicotine 1 patch DAILY TD 07/17/24 10:00 07/21/24 09:50 1 PATCH Sacubitril/ Valsartan 2 tab BID PO 07/17/24 10:00 07/26/24 21:17 2 TAB Pantoprazole Sodium 40 mg DAILY IV 07/23/24 10:00 07/26/24 10:00 40 MG Docusate Sodium 100 mg BID PO 07/22/24 22:00 07/26/24 21:17 100 MG Hydromorphone HCl 2 mg Q4HPRN PRN IV 07/23/24 13:00 07/26/24 20:03 2 MG Ondansetron HCl 4 mg Q4HPRN PRN IV 07/24/24 14:00 07/26/24 20:02 4 MG Meropenem 50 ml @ 17 mls/hr Q12HR IV 07/25/24 22:00 07/26/24 21:17 17 MLS/HR Vancomycin HCl 0 ml @ 0 mls/hr UD IV 07/25/24 13:30 Cyclobenzaprine HCl 10 mg TID PO 07/26/24 14:00 07/26/24 21:18 10 MG Sodium Chloride 10 ml QSHIFT@10,22 IV 07/26/24 10:00 07/26/24 10:14 10 ML laboratory and microbiology Laboratory Tests 07/26/24 05:42 Test 07/26/24 05:42 Range/Units Serum Glucose 134 H 74-106 mg/dL Problem List/Assessment/Plan Problems(with codes): (1) Postoperative pain after spinal surgery (2) Muscle spasm of back (3) Acute chest pain (4) Intractable low back pain (5) Pneumonia, unspecified organism (6) End stage renal disease on dialysis Problem List/Assessment/Plan Reviewed subjective, clinical findings, assessment and plan as described by Dr. Dugan Mr. Mikhail Mckee is a 59 year old male with a past medical history of active smoking history ,end stage renal disease , bedbound , COPD , seizures, were found to have a right buttock abscess last year that was treated with antibiotics , unclear where this was done . Presented with pneumonia here , klebsiella and MRSA growth here and was treated with vancomycin and cefepime for 6 weeks per culture sensitivities. Now is back with worsening lower extremity weakness and numbness of the legs , right hip pain. Ct was performed on his lower back and he has a progressive discitis and osteomyelitis with increased end plare destruction compression of the thecolphycodema and possible para spinal abscess. 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 Jaimes recommends holding plavix and will continue vancomycin and maripenum. 07/14: Findings of MRI are consistent with discitis and osteomyelitis . pre pertibral abscess appears smaller although not optimally characterized without IV contrast. remains prominent edema in the prevertebral soft tissue centered L4-L5 level edema and pedicals and parals in L4-L5 may be due to extension of osteomyelitis in this location or stress related changes. degenerate disc disease and facet disease in lumbar spine with associate spinal canal subarticular and neuronal phenomenon stenosis above 07/15: tolerated dialysis yesterday and blood cultures are no growth to date 07/16: unclear if upper neurological symptoms are related to potential spread of infection . 07/17: thin and emaciated , would be high risk for surgery in most scenarios 07/18: vancomycin levels are therapeutic and tolerating dialysis 515: weak but able to ambulate with assistance and awaiting surgery 16: still awaiting a time to go to the OR for surgery 5: awaiting OR time next week 07/22: shows no active signs of sepsis and awaiting surgery 07/23: Is going to get an operative debridement of patients lumbar spine and lumbar fusion tomorrow 07/24: patient underwent labitomes for anatomies fastetectomys as S 1 bilaterally , decompression of the central canal and bilateral sacral one nerve roots , lumbar 5 laminectomy , lumbar 4 laminectomy , bilaterally 3 laminectomy , lumbar 5 and 4 nerver roots , IND of the deep lumbar spine infection was done and cultures were obtained 07/25: tolerating diet , awaiting operative culture results which currently show no organisms 07/26: awaiting IV antibiotics to be set up for home plan: - defer post op management of sacral spine to neurosurgeon , wound vac care per neurosurgeons recommendations - follow up on operative cultures - acquire a piccline - Recommend continue vancomycin and meropenem via piccline and Vancomycin can be delivered via dialysis line and continue for 6 weeks - follow up with infectious disease clinic in 4 weeks - follow up with neurosurgery for wound vac and post op care - recommend nutrition consult to optimize patients dietary protein intake - recommend head Ct to rule out potential spread of infection in the head or neck - if theres any epidural component above it is covered by vancomycin and meropenum - recommend blood cultures - recommend said rate and CRP testing - recommend MRI without contrast of lumbar spine to further evaluate osteomyelitis and discitis - will require biopsy of spine and para spinal muscles that are infected and send for bacterial aerobic and anaerobic culturing when patient gets a surgical laminectomy Plan discussed with: Other Dietary Evaluation Review Comments: 1) Nepro Carb Steady 240ml daily (ordered per [facility] protocol) 2) Nephro-Katya 1 tab daily 3) continue current POC Expected Outcomes/Goals: To meet at least 75% estimated needs FU 3-5 days ENDY CAMP MD July 26, 2024 21:58
[2024-07-27] VITALS (10 sets, daily range): BP systolic 105–134; BP diastolic 43–78; PULSE 68–80; RESP 16–19; TEMP 97.9–98.7; O2SAT 90–100
[2024-07-27 07:12] LABS: Alanine Aminotransferase 11 U/L (7-40); Albumin 3.8 g/dL (3.2-4.8); Alkaline Phosphatase 74 U/L (46-116); Anion Gap 9 (5-15); BUN/Creatinine Ratio 4.3 (10.0-20.0); Blood Urea Nitrogen 21 mg/dL (9-23); Calcium 9.2 mg/dL (8.7-10.4); Potassium 4.2 mmol/L (3.5-5.1); Sodium 137 mmol/L (136-145); Total Protein 6.1 g/dL (5.7-8.2)
[2024-07-27 07:13] LABS: Aspartate Aminotransferase 13 U/L (13-40); Bilirubin, Total 0.5 mg/dL (0.2-1.0)
[2024-07-27 07:21] LABS: Carbon Dioxide 32 mmol/L (20-31); Chloride 96 mmol/L (98-107); Glucose 131 mg/dL (74-106)
[2024-07-27 07:27] LABS: Basophils # (auto) 0 10 ^3/uL (0-0.2); Basophils % (auto) 0.8 % (0.0-2.0); Eosinophils # (auto) 0.3 10 ^3/uL (0-0.8); Eosinophils % (auto) 5.5 % (0.0-7.0); Hematocrit 32.4 % (41.0-53.0); Hemoglobin 10.9 g/dL (13.5-17.5); Lymphocytes % (auto) 19.4 % (10.0-50.0); Mean Corpuscular Hemoglobin 30.7 pg (28.0-32.0); Mean Corpuscular Hgb Conc. 33.5 g/dL (32.0-36.0); Mean Corpuscular Volume 91.8 fL (80.0-100.0); Monocytes # (auto) 0.9 10 ^3/uL (0-1.3); Monocytes % (auto) 16.3 % (0.0-12.0); Neutrophils # (auto) 3.1 10 ^3/uL (1.6-8.6); Nucleated Red Blood Cells % 0.2 %; Red Blood Cells 3.53 10^6/uL (4.5-5.90); Red Cell Distribution Width 16.9 % (11.8-14.3); White Blood Cell 5.3 10^3/uL (4.4-10.8)
[2024-07-27 07:59] LABS: Platelet Count (auto) 96 10^3/uL (140-450)
--- NOTE | 2024-07-27 13:07 | DVHPN2 ---
Progress Note - Dictate Date Seen: July 27, 2024 Has the PT tested + for MRSA If YES, has PT been informed?: No Medical Necessity Reason Pt with a Central, PICC or Fol: No Subjective No new complaints vital signs Vital Sign Date Time Temp Pulse Resp B/P (MAP) Pulse Ox O2 Delivery O2 Flow Rate FiO2 07/27/24 10:30 96 Nasal Cannula 2.0 07/27/24 10:30 28 07/27/24 09:02 81 134/51 07/27/24 08:57 19 07/27/24 08:49 98.2 98.2 Total Intake and Output 07/26/24 07/26/24 07/27/24 15:00 23:00 07:00 Intake Total 50 ml 500 ml 370 ml Output Total 550 ml 240 ml Balance 50 ml -50 ml 130 ml medications Current Medications Medications Dose Ordered Sig/Gerard Route Start Time Stop Time Status Last Admin Dose Admin Amlodipine Besylate 10 mg DAILY PO 07/12/24 10:00 07/27/24 09:00 10 MG Atorvastatin Calcium 40 mg HS PO 07/12/24 22:00 07/26/24 21:17 40 MG Calcium Acetate 667 mg TIDWMEALS PO 07/12/24 08:00 07/27/24 11:24 667 MG Clopidogrel Bisulfate 75 mg DAILY PO 07/12/24 10:00 Hold 07/13/24 09:19 75 MG Furosemide 40 mg DAILY PO 07/12/24 10:00 07/27/24 09:01 40 MG Gabapentin 100 mg TID PO 07/12/24 06:00 07/27/24 06:10 100 MG Hydralazine HCl 50 mg Q8HR PO 07/12/24 06:00 07/26/24 21:18 50 MG Isosorbide Mononitrate 30 mg DAILY PO 07/12/24 10:00 07/27/24 09:01 30 MG Ranolazine 500 mg BID PO 07/12/24 10:00 07/27/24 09:00 500 MG Metoprolol Succinate 100 mg DAILY PO 07/12/24 10:00 07/27/24 09:02 100 MG Acetaminophen 650 mg Q6HP PRN PO 07/12/24 00:30 Lorazepam 1 mg Q5MINP PRN IV 07/12/24 13:00 07/19/24 05:18 1 MG Diazepam 10 mg DAILY PRN PO 07/14/24 10:45 07/25/24 09:32 10 MG Clonidine HCl 0.2 mg Q6HP PRN PO 07/15/24 12:15 07/18/24 19:13 0.2 MG Nicotine 1 patch DAILY TD 07/17/24 10:00 07/21/24 09:50 1 PATCH Sacubitril/ Valsartan 2 tab BID PO 07/17/24 10:00 07/27/24 08:59 2 TAB Pantoprazole Sodium 40 mg DAILY IV 07/23/24 10:00 07/27/24 09:02 40 MG Docusate Sodium 100 mg BID PO 07/22/24 22:00 07/27/24 09:00 100 MG Hydromorphone HCl 2 mg Q4HPRN PRN IV 07/23/24 13:00 07/27/24 08:57 2 MG Ondansetron HCl 4 mg Q4HPRN PRN IV 07/24/24 14:00 07/27/24 00:02 4 MG Meropenem 50 ml @ 17 mls/hr Q12HR IV 07/25/24 22:00 07/27/24 10:00 17 MLS/HR Vancomycin HCl 0 ml @ 0 mls/hr UD IV 07/25/24 13:30 Cyclobenzaprine HCl 10 mg TID PO 07/26/24 14:00 07/27/24 06:10 10 MG Sodium Chloride 10 ml QSHIFT@10,22 IV 07/26/24 10:00 07/27/24 09:03 10 ML objective Alert and oriented x 3 NAD Lungs CTA CV: RR, S4 gallop Abdomen: soft, NT No leg edema laboratory and microbiology Laboratory Tests 07/27/24 06:00 Test 07/27/24 06:00 Range/Units Serum Glucose 131 H 74-106 mg/dL Problem List 1. End-stage renal disease on hemodialysis MWF via AV fistula. 2. Intractable low back pain. 3. Diskitis/osteomyelitis of the L4-L5, s/p laminectomy 4. Hypertension uncontrolled 5. Hyperkalemia managed with dialysis. 6. Anemia of end-stage renal disease. 7. CAD. 8. Chronic pain syndrome. Plan slight recommendations: HD tomorrow Analgesia. Continue phosphate binders Kody as needed for goal hemoglobin 10 to 11 grams/deciliter. DC planning Dietary Evaluation Review Comments: 1) Nepro Carb Steady 240ml daily (ordered per [facility] protocol) 2) Nephro-Katya 1 tab daily 3) continue current POC Expected Outcomes/Goals: To meet at least 75% estimated needs FU 3-5 days Plan discussed with: Other IVORY LEARY MD July 27, 2024 13:07
[2024-07-27] MEDS: VANCOMYCIN 500mg/100mL 100 ML IV ONE (17:28)
--- NOTE | 2024-07-27 18:22 | DVHPN2 ---
Reviewed: Care Plan Changes from previous H/P or p: No Changes Objective Vitals Vital Signs Date Time Temp Pulse Resp B/P (MAP) Pulse Ox O2 Delivery O2 Flow Rate FiO2 07/27/24 16:41 98.7 71 16 112/54 (73) 100 98.7 07/27/24 10:30 Nasal Cannula 2.0 07/27/24 10:30 28 Intake/Output Intake and Output 07/27/24 07:00 Intake Total 920 ml Output Total 790 ml Balance 130 ml Intake Oral 870 ml IV Total 50 ml Output Urine Total 790 ml General Appearance: Alert, Oriented X3 Cardiovascular: Regular rate, Normal S1, Normal S2 Medications Current Medications Medications Dose Ordered Sig/Gerard Route Start Time Stop Time Status Last Admin Dose Admin Amlodipine Besylate 10 mg DAILY PO 07/12/24 10:00 07/27/24 09:00 10 MG Atorvastatin Calcium 40 mg HS PO 07/12/24 22:00 07/26/24 21:17 40 MG Calcium Acetate 667 mg TIDWMEALS PO 07/12/24 08:00 07/27/24 16:03 667 MG Clopidogrel Bisulfate 75 mg DAILY PO 07/12/24 10:00 Hold 07/13/24 09:19 75 MG Furosemide 40 mg DAILY PO 07/12/24 10:00 07/27/24 09:01 40 MG Gabapentin 100 mg TID PO 07/12/24 06:00 07/27/24 16:00 100 MG Hydralazine HCl 50 mg Q8HR PO 07/12/24 06:00 07/26/24 21:18 50 MG Isosorbide Mononitrate 30 mg DAILY PO 07/12/24 10:00 07/27/24 09:01 30 MG Ranolazine 500 mg BID PO 07/12/24 10:00 07/27/24 09:00 500 MG Metoprolol Succinate 100 mg DAILY PO 07/12/24 10:00 07/27/24 09:02 100 MG Acetaminophen 650 mg Q6HP PRN PO 07/12/24 00:30 Lorazepam 1 mg Q5MINP PRN IV 07/12/24 13:00 07/19/24 05:18 1 MG Diazepam 10 mg DAILY PRN PO 07/14/24 10:45 07/25/24 09:32 10 MG Clonidine HCl 0.2 mg Q6HP PRN PO 07/15/24 12:15 07/18/24 19:13 0.2 MG Nicotine 1 patch DAILY TD 07/17/24 10:00 07/21/24 09:50 1 PATCH Sacubitril/ Valsartan 2 tab BID PO 07/17/24 10:00 07/27/24 08:59 2 TAB Pantoprazole Sodium 40 mg DAILY IV 07/23/24 10:00 07/27/24 09:02 40 MG Docusate Sodium 100 mg BID PO 07/22/24 22:00 07/27/24 09:00 100 MG Hydromorphone HCl 2 mg Q4HPRN PRN IV 07/23/24 13:00 07/27/24 14:53 2 MG Ondansetron HCl 4 mg Q4HPRN PRN IV 07/24/24 14:00 07/27/24 00:02 4 MG Meropenem 50 ml @ 17 mls/hr Q12HR IV 07/25/24 22:00 07/27/24 10:00 17 MLS/HR Vancomycin HCl 0 ml @ 0 mls/hr UD IV 07/25/24 13:30 Cyclobenzaprine HCl 10 mg TID PO 07/26/24 14:00 07/27/24 16:00 10 MG Sodium Chloride 10 ml QSHIFT@10,22 IV 07/26/24 10:00 07/27/24 09:03 10 ML Laboratory Results Laboratory Tests 07/27/24 06:00 Chemistry Test 07/27/24 06:00 Albumin 3.8 g/dL (3.2-4.8) Calcium Level 9.2 mg/dL (8.7-10.4) Total Protein 6.1 g/dL (5.7-8.2) LFT Test 07/27/24 06:00 Alanine Aminotransferase (ALT) 11 U/L (7-40) Alkaline Phosphatase 74 U/L (46-116) Aspartate Amino Transferase (AST) 13 U/L (13-40) Total Bilirubin 0.5 mg/dL (0.2-1.0) Urinalysis Test 07/26/24 16:00 Urine Color Yellow (Yellow) Urine Clarity Turbid (Clear) H Urine pH 8.5 (5.0-9.0) Urine Specific [place] 1.015 (1.001-1.035) Urine Protein 3+ (Negative) H Urine Ketones Negative (Negative) Urine Blood Negative /uL (Negative) Urine Nitrite Negative (Negative) Urine Bilirubin Negative (Negative) Urine Urobilinogen Normal mg/dL (Negative) Urine Leukocyte Esterase Negative /uL (Negative) Urine RBC 7 /hpf (0 - 3) Urine Microscopic WBC 5 /HPF (0-3) H Urine Squamous Epithelial Cells Few /hpf (<5) Urine Bacteria Few /hpf (None Seen) H Urine Hyaline Casts Few /lpf (0 - 2) Urine Glucose 2+ mg/dL (Normal) H Microbiology Microbiology Date/Time Source Procedure Growth Status 07/24/24 09:20 Other Gram Stain - Final Resulted 07/24/24 09:20 Other Anaerobic Culture - Preliminary Resulted 07/24/24 09:20 Other Aerobic Culture - Preliminary Resulted 07/13/24 11:26 Blood Blood Culture - Final NO GROWTH AFTER 5 DAYS OF INCUBATION. Complete Assessment/Plan Assessment/Plan Chronic pain syndrome Right hip pain: Hip x-ray negative Acute osteomyelitis L4-5 by MRI L-spine: Consult by ID Dr. Jack Cronin appreciated, placed on vancomycin and meropenem Status post laminectomy and foraminectomy at multiple levels of the lumbar spine by Dr. Villafana on 07/24/2024 ESRD on hemodialysis by Dr. Byrd Accelerated hypertension Acute generalized Weakness Anemia of chronic disease Coronary artery disease status post stents x3 Plavix Acute on chronic CHF exacerbation ejection fraction 35 percent Diabetes History of seizures on gabapentin Hypertension Hyperlipidemia Obesity Chronic current smoker counseling Cardiology Dr. Cooper cleared for spine surgery Blood-tinged emesis: DC aspirin, start pantoprazole [address] Villafana advised no blood thinners for two weeks if possible PICC line ordered Time spent 55 minutes Advanced care planning time 20 minutes Patient is full code PCP Scott Wade Previous hospital stay 04/15/24 to 05-02-24 Spoke to patient's five Marycruz [phone] one and advised the current diagnosis management Physical therapy ordered Placed on muscle relaxant Flexeril per ortho recommendation Patient needs IV meropenem and vancomycin for six weeks (SNF/ Home Health) Possible discharge on 07-30-24 Mon Plan discussed with: Patient Date of Service: July 27, 2024 Billing Provider: CHIDI MARSH MD Common Visit Codes: [id number] INP/OBS CARE(HIGH) CHIDI MARSH MD July 27, 2024 18:22
--- NOTE | 2024-07-27 22:04 | DVH ---
CT HEAD WITHOUT CONTRAST INDICATION: fall COMPARISON: CT HEAD WITHOUT CONTRAST on DOS: 04/25/24 TECHNIQUE: CT of the head without intravenous contrast. RADIATION DOSE: CTDIvol: mGy, DLP: mGy*cm FINDINGS: There is no evidence of intracranial hemorrhage, infarct, extra-axial collection, mass effect, midli ne shift, herniation or hydrocephalus. Mild ventricular enlargement related to cerebral volume loss. Considerable vascular calcifications noted predominantly in ECA branches presumably related to DM/CK D. Visualized paranasal sinuses and mastoid air cells are clear. Soft tissues and osseous structures are unremarkable. IMPRESSION: No acute intracranial abnormality identified. No change compared to the prior CT scan from April 08.
--- NOTE | 2024-07-27 22:07 | DVH ---
EXAM: XY R SHOULDER 1V XRAY CLINICAL INDICATION: fall TECHNIQUE: XY R SHOULDER 1V XRAY Comparison: XY R SHOULDER 2+ VIEW XRAY on DOS: 01/10/23 FINDINGS/IMPRESSION: There is no evidence of acute fracture . Right humeral head has a cephalad subluxation finding is suggestive of rotator cuff tear. The alignment is anatomical. There is right-sided PICC catheter with the tip superior vena cava.
--- NOTE | 2024-07-27 22:42 | DVHPN2 ---
Consult Progress Note Date Seen: July 27, 2024 Subjective Patient reports: Other (refusing current IV antibioitcs and is frustrated by the copay . patient is continually nauseous and not tolerating much po intake and is getting up and workign with physical therapy ) Objective vital signs Vital Sign Date Time Temp Pulse Resp B/P (MAP) Pulse Ox O2 Delivery O2 Flow Rate FiO2 07/27/24 22:00 103/58 07/27/24 21:22 70 18 07/27/24 21:00 98.6 96 98.6 07/27/24 20:00 Room Air* 0 21 Total Intake and Output 07/26/24 07/26/24 07/27/24 15:00 23:00 07:00 Intake Total 50 ml 500 ml 370 ml Output Total 550 ml 240 ml Balance 50 ml -50 ml 130 ml medications Current Medications Medications Dose Ordered Sig/Gerard Route Start Time Stop Time Status Last Admin Dose Admin Amlodipine Besylate 10 mg DAILY PO 07/12/24 10:00 07/27/24 09:00 10 MG Atorvastatin Calcium 40 mg HS PO 07/12/24 22:00 07/27/24 22:01 40 MG Calcium Acetate 667 mg TIDWMEALS PO 07/12/24 08:00 07/27/24 16:03 667 MG Clopidogrel Bisulfate 75 mg DAILY PO 07/12/24 10:00 Hold 07/13/24 09:19 75 MG Furosemide 40 mg DAILY PO 07/12/24 10:00 07/27/24 09:01 40 MG Gabapentin 100 mg TID PO 07/12/24 06:00 07/27/24 22:01 100 MG Hydralazine HCl 50 mg Q8HR PO 07/12/24 06:00 07/26/24 21:18 50 MG Isosorbide Mononitrate 30 mg DAILY PO 07/12/24 10:00 07/27/24 09:01 30 MG Ranolazine 500 mg BID PO 07/12/24 10:00 07/27/24 22:01 500 MG Metoprolol Succinate 100 mg DAILY PO 07/12/24 10:00 07/27/24 09:02 100 MG Acetaminophen 650 mg Q6HP PRN PO 07/12/24 00:30 Lorazepam 1 mg Q5MINP PRN IV 07/12/24 13:00 07/19/24 05:18 1 MG Diazepam 10 mg DAILY PRN PO 07/14/24 10:45 07/25/24 09:32 10 MG Clonidine HCl 0.2 mg Q6HP PRN PO 07/15/24 12:15 07/18/24 19:13 0.2 MG Nicotine 1 patch DAILY TD 07/17/24 10:00 07/21/24 09:50 1 PATCH Sacubitril/ Valsartan 2 tab BID PO 07/17/24 10:00 07/27/24 22:01 2 TAB Pantoprazole Sodium 40 mg DAILY IV 07/23/24 10:00 07/27/24 09:02 40 MG Docusate Sodium 100 mg BID PO 07/22/24 22:00 07/27/24 22:01 100 MG Hydromorphone HCl 2 mg Q4HPRN PRN IV 07/23/24 13:00 07/27/24 20:52 2 MG Ondansetron HCl 4 mg Q4HPRN PRN IV 07/24/24 14:00 07/27/24 00:02 4 MG Meropenem 50 ml @ 17 mls/hr Q12HR IV 07/25/24 22:00 07/27/24 22:00 17 MLS/HR Vancomycin HCl 0 ml @ 0 mls/hr UD IV 07/25/24 13:30 Cyclobenzaprine HCl 10 mg TID PO 07/26/24 14:00 07/27/24 22:01 10 MG Sodium Chloride 10 ml QSHIFT@10,22 IV 07/26/24 10:00 07/27/24 22:00 10 ML laboratory and microbiology Laboratory Tests 07/27/24 06:00 Test 07/27/24 06:00 Range/Units Serum Glucose 131 H 74-106 mg/dL Problem List/Assessment/Plan Problems(with codes): (1) Acute chest pain (2) Muscle spasm of back (3) Postoperative pain after spinal surgery (4) Pneumonia, unspecified organism (5) End stage renal disease on dialysis Problem List/Assessment/Plan Reviewed subjective, clinical findings, assessment and plan as described by Dr. Dugan Mr. Mikhail Mckee is a 59 year old male with a past medical history of active smoking history ,end stage renal disease , bedbound , COPD , seizures, were found to have a right buttock abscess last year that was treated with antibiotics , unclear where this was done . Presented with pneumonia here , klebsiella and MRSA growth here and was treated with vancomycin and cefepime for 6 weeks per culture sensitivities. Now is back with worsening lower extremity weakness and numbness of the legs , right hip pain. Ct was performed on his lower back and he has a progressive discitis and osteomyelitis with increased end plare destruction compression of the thecolphycodema and possible para spinal abscess. 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 Jaimes recommends holding plavix and will continue vancomycin and maripenum. 07/14: Findings of MRI are consistent with discitis and osteomyelitis . pre pertibral abscess appears smaller although not optimally characterized without IV contrast. remains prominent edema in the prevertebral soft tissue centered L4-L5 level edema and pedicals and parals in L4-L5 may be due to extension of osteomyelitis in this location or stress related changes. degenerate disc disease and facet disease in lumbar spine with associate spinal canal subarticular and neuronal phenomenon stenosis above 07/15: tolerated dialysis yesterday and blood cultures are no growth to date 07/16: unclear if upper neurological symptoms are related to potential spread of infection . 07/17: thin and emaciated , would be high risk for surgery in most scenarios 14: vancomycin levels are therapeutic and tolerating dialysis 15: weak but able to ambulate with assistance and awaiting surgery 16: still awaiting a time to go to the OR for surgery 17: awaiting OR time next week 18: shows no active signs of sepsis and awaiting surgery 07/23: Is going to get an operative debridement of patients lumbar spine and lumbar fusion tomorrow 07/24: patient underwent labitomes for anatomies fastetectomys as S 1 bilaterally , decompression of the central canal and bilateral sacral one nerve roots , lumbar 5 laminectomy , lumbar 4 laminectomy , bilaterally 3 laminectomy , lumbar 5 and 4 nerver roots , IND of the deep lumbar spine infection was done and cultures were obtained 07/25: tolerating diet , awaiting operative culture results which currently show no organisms 07/26: awaiting IV antibiotics to be set up for home 07/27: working with case management to get appropriate home antibiotics according to patients preference plan: - defer post op management of sacral spine to neurosurgeon , wound vac care per neurosurgeons recommendations - follow up on operative cultures - acquire a piccline - Recommend continue vancomycin and meropenem via piccline and Vancomycin can be delivered via dialysis line and continue for 6 weeks - follow up with infectious disease clinic in 4 weeks - follow up with neurosurgery for wound vac and post op care - recommend nutrition consult to optimize patients dietary protein intake - recommend head Ct to rule out potential spread of infection in the head or neck - if theres any epidural component above it is covered by vancomycin and meropenum - recommend blood cultures - recommend said rate and CRP testing - recommend MRI without contrast of lumbar spine to further evaluate osteomyelitis and discitis - will require biopsy of spine and para spinal muscles that are infected and send for bacterial aerobic and anaerobic culturing when patient gets a surgical laminectomy Plan discussed with: Other Dietary Evaluation Review Comments: 1) Nepro Carb Steady 240ml daily (ordered per [facility] protocol) 2) Nephro-Katya 1 tab daily 3) continue current POC Expected Outcomes/Goals: To meet at least 75% estimated needs FU 3-5 days ENDY CAMP MD July 27, 2024 22:42
[2024-07-28] VITALS (7 sets, daily range): BP systolic 113–142; BP diastolic 47–59; PULSE 68–79; RESP 14–18; TEMP 97.9–98.2; O2SAT 91–100
[2024-07-28 07:58] LABS: Basophils # (auto) 0 10 ^3/uL (0-0.2); Basophils % (auto) 0.6 % (0.0-2.0); Eosinophils # (auto) 0.4 10 ^3/uL (0-0.8); Eosinophils % (auto) 7.3 % (0.0-7.0); Hematocrit 33.9 % (41.0-53.0); Hemoglobin 11.1 g/dL (13.5-17.5); Lymphocytes # (auto) 0.8 10 ^3/uL (0.4-5.4); Lymphocytes % (auto) 16.9 % (10.0-50.0); Mean Corpuscular Hemoglobin 30.4 pg (28.0-32.0); Mean Corpuscular Hgb Conc. 32.8 g/dL (32.0-36.0); Mean Corpuscular Volume 92.7 fL (80.0-100.0); Monocytes # (auto) 0.6 10 ^3/uL (0-1.3); Monocytes % (auto) 13.2 % (0.0-12.0); Platelet Count (auto) 101 10^3/uL (140-450); Red Blood Cells 3.66 10^6/uL (4.5-5.90); Red Cell Distribution Width 16.6 % (11.8-14.3); White Blood Cell 4.9 10^3/uL (4.4-10.8)
[2024-07-28 08:19] LABS: Alanine Aminotransferase 15 U/L (7-40); Alkaline Phosphatase 79 U/L (46-116); Anion Gap 12 (5-15); Aspartate Aminotransferase 19 U/L (13-40); BUN/Creatinine Ratio 5.6 (10.0-20.0); Calcium 10.1 mg/dL (8.7-10.4); Potassium 4.7 mmol/L (3.5-5.1); Sodium 137 mmol/L (136-145); Total Protein 6.4 g/dL (5.7-8.2)
[2024-07-28 08:20] LABS: Bilirubin, Total 0.4 mg/dL (0.2-1.0)
[2024-07-28 08:28] LABS: Blood Urea Nitrogen 38 mg/dL (9-23); Carbon Dioxide 31 mmol/L (20-31); Chloride 94 mmol/L (98-107); Glucose 136 mg/dL (74-106)
--- NOTE | 2024-07-28 10:30 | DVHPN2 ---
Progress Note - Dictate Date Seen: July 28, 2024 Has the PT tested + for MRSA If YES, has PT been informed?: No Medical Necessity Reason Pt with a Central, PICC or Fol: No Subjective No new complaints vital signs Vital Sign Date Time Temp Pulse Resp B/P (MAP) Pulse Ox O2 Delivery O2 Flow Rate FiO2 07/28/24 10:00 92 Room Air* 0 21 07/28/24 08:33 75 16 138/57 07/28/24 08:30 97.9 97.9 Total Intake and Output 07/27/24 07/27/24 07/28/24 15:00 23:00 07:00 Intake Total 50 ml 600 ml 100 ml Output Total 100 ml 200 ml Balance 50 ml 500 ml -100 ml medications Current Medications Medications Dose Ordered Sig/Gerard Route Start Time Stop Time Status Last Admin Dose Admin Amlodipine Besylate 10 mg DAILY PO 07/12/24 10:00 07/27/24 09:00 10 MG Atorvastatin Calcium 40 mg HS PO 07/12/24 22:00 07/27/24 22:01 40 MG Calcium Acetate 667 mg TIDWMEALS PO 07/12/24 08:00 07/28/24 08:35 667 MG Clopidogrel Bisulfate 75 mg DAILY PO 07/12/24 10:00 Hold 07/13/24 09:19 75 MG Furosemide 40 mg DAILY PO 07/12/24 10:00 07/27/24 09:01 40 MG Gabapentin 100 mg TID PO 07/12/24 06:00 07/28/24 05:16 100 MG Hydralazine HCl 50 mg Q8HR PO 07/12/24 06:00 07/26/24 21:18 50 MG Isosorbide Mononitrate 30 mg DAILY PO 07/12/24 10:00 07/27/24 09:01 30 MG Ranolazine 500 mg BID PO 07/12/24 10:00 07/27/24 22:01 500 MG Metoprolol Succinate 100 mg DAILY PO 07/12/24 10:00 07/27/24 09:02 100 MG Acetaminophen 650 mg Q6HP PRN PO 07/12/24 00:30 Lorazepam 1 mg Q5MINP PRN IV 07/12/24 13:00 07/19/24 05:18 1 MG Diazepam 10 mg DAILY PRN PO 07/14/24 10:45 07/25/24 09:32 10 MG Clonidine HCl 0.2 mg Q6HP PRN PO 07/15/24 12:15 07/18/24 19:13 0.2 MG Nicotine 1 patch DAILY TD 07/17/24 10:00 07/28/24 08:36 1 PATCH Sacubitril/ Valsartan 2 tab BID PO 07/17/24 10:00 07/27/24 22:01 2 TAB Pantoprazole Sodium 40 mg DAILY IV 07/23/24 10:00 07/27/24 09:02 40 MG Docusate Sodium 100 mg BID PO 07/22/24 22:00 07/27/24 22:01 100 MG Hydromorphone HCl 2 mg Q4HPRN PRN IV 07/23/24 13:00 07/28/24 08:33 2 MG Ondansetron HCl 4 mg Q4HPRN PRN IV 07/24/24 14:00 07/27/24 00:02 4 MG Meropenem 50 ml @ 17 mls/hr Q12HR IV 07/25/24 22:00 07/27/24 22:00 17 MLS/HR Vancomycin HCl 0 ml @ 0 mls/hr UD IV 07/25/24 13:30 Cyclobenzaprine HCl 10 mg TID PO 07/26/24 14:00 07/28/24 05:16 10 MG Sodium Chloride 10 ml QSHIFT@10,22 IV 07/26/24 10:00 07/27/24 22:00 10 ML objective Alert and oriented x 3 NAD Lungs CTA CV: RR, S4 gallop Abdomen: soft, NT No leg edema laboratory and microbiology Laboratory Tests 07/28/24 07:15 Test 07/28/24 07:15 Range/Units Serum Glucose 136 H 74-106 mg/dL Problem List 1. End-stage renal disease on hemodialysis via AV fistula. 2. Intractable low back pain. 3. Diskitis/osteomyelitis of the L4-L5, s/p laminectomy 4. Hypertension uncontrolled 5. Hyperkalemia managed with dialysis. 6. Anemia of end-stage renal disease. 7. CAD. 8. Chronic pain syndrome. Plan slight recommendations: HD today No need for Epogen since Hb is above target range Analgesia. Continue phosphate binders PICC line ok for intermediate frame tender IV antibiotics DC planning to SNF DC planning Dietary Evaluation Review Comments: 1) Nepro Carb Steady 240ml daily (ordered per [facility]NS protocol) 2) Nephro-Katya 1 tab daily 3) continue current POC Expected Outcomes/Goals: To meet at least 75% estimated needs FU 3-5 days Plan discussed with: Other IVORY LEARY MD July 28, 2024 10:30
--- NOTE | 2024-07-28 14:58 | ECG ---
[facility] Test Date: 2024-07-28 Test Time: 14:49:18 Pat Name: CARLOS KING Department: Room: 0291T B Gender: M [employer] Bonder: [email or web address] resource : 1965 Requested By: SHARMIN AN Order Number: [id number] Reading MD: Aquiles Hobbs Measurements Intervals [place] Rate: 70 P: 42 NM: 172 QRS: 51 QRSD: 107 T: 100 QT: 404 QTc: 436 Interpretive Statements Sinus rhythm Anterior infarct, old Nonspecific T abnormalities, lateral leads Electronically Signed On 07-30-2024 10:43:14 PDT by Aquiles Hobbs Please click the below link to view image of tracing.
--- NOTE | 2024-07-28 19:38 | DVHPN2 ---
Subjective in bed resting Reviewed: Care Plan Changes from previous H/P or p: No Changes Objective Vitals Vital Signs Date Time Temp Pulse Resp B/P (MAP) Pulse Ox O2 Delivery O2 Flow Rate FiO2 07/28/24 17:20 65 16 122/69 07/28/24 16:30 98.2 100 98.2 07/28/24 10:00 Room Air* 0 21 Intake/Output Intake and Output 07/28/24 06:59 Intake Total 750 ml Output Total 300 ml Balance 450 ml Intake Oral 700 ml IV Total 50 ml Output Urine Total 300 ml General Appearance: Alert, Oriented X3 Cardiovascular: Regular rate, Normal S1, Normal S2 Medications Current Medications Medications Dose Ordered Sig/Gerard Route Start Time Stop Time Status Last Admin Dose Admin Amlodipine Besylate 10 mg DAILY PO 07/12/24 10:00 07/27/24 09:00 10 MG Atorvastatin Calcium 40 mg HS PO 07/12/24 22:00 07/27/24 22:01 40 MG Calcium Acetate 667 mg TIDWMEALS PO 07/12/24 08:00 07/28/24 16:38 667 MG Clopidogrel Bisulfate 75 mg DAILY PO 07/12/24 10:00 Hold 07/13/24 09:19 75 MG Furosemide 40 mg DAILY PO 07/12/24 10:00 07/27/24 09:01 40 MG Gabapentin 100 mg TID PO 07/12/24 06:00 07/28/24 05:16 100 MG Hydralazine HCl 50 mg Q8HR PO 07/12/24 06:00 07/26/24 21:18 50 MG Isosorbide Mononitrate 30 mg DAILY PO 07/12/24 10:00 07/27/24 09:01 30 MG Ranolazine 500 mg BID PO 07/12/24 10:00 07/27/24 22:01 500 MG Metoprolol Succinate 100 mg DAILY PO 07/12/24 10:00 07/27/24 09:02 100 MG Acetaminophen 650 mg Q6HP PRN PO 07/12/24 00:30 Lorazepam 1 mg Q5MINP PRN IV 07/12/24 13:00 07/19/24 05:18 1 MG Diazepam 10 mg DAILY PRN PO 07/14/24 10:45 07/25/24 09:32 10 MG Clonidine HCl 0.2 mg Q6HP PRN PO 07/15/24 12:15 07/18/24 19:13 0.2 MG Nicotine 1 patch DAILY TD 07/17/24 10:00 07/28/24 08:36 1 PATCH Sacubitril/ Valsartan 2 tab BID PO 07/17/24 10:00 07/27/24 22:01 2 TAB Pantoprazole Sodium 40 mg DAILY IV 07/23/24 10:00 07/27/24 09:02 40 MG Docusate Sodium 100 mg BID PO 07/22/24 22:00 07/27/24 22:01 100 MG Hydromorphone HCl 2 mg Q4HPRN PRN IV 07/23/24 13:00 07/28/24 16:50 2 MG Ondansetron HCl 4 mg Q4HPRN PRN IV 07/24/24 14:00 07/27/24 00:02 4 MG Meropenem 50 ml @ 17 mls/hr Q12HR IV 07/25/24 22:00 07/27/24 22:00 17 MLS/HR Vancomycin HCl 0 ml @ 0 mls/hr UD IV 07/25/24 13:30 Cyclobenzaprine HCl 10 mg TID PO 07/26/24 14:00 07/28/24 05:16 10 MG Sodium Chloride 10 ml QSHIFT@10,22 IV 07/26/24 10:00 07/28/24 08:33 10 ML Laboratory Results Laboratory Tests 07/28/24 07:15 Chemistry Test 07/28/24 07:15 Albumin 4.0 g/dL (3.2-4.8) Calcium Level 10.1 mg/dL (8.7-10.4) Total Protein 6.4 g/dL (5.7-8.2) LFT Test 07/28/24 07:15 Alanine Aminotransferase (ALT) 15 U/L (7-40) Alkaline Phosphatase 79 U/L (46-116) Aspartate Amino Transferase (AST) 19 U/L (13-40) Total Bilirubin 0.4 mg/dL (0.2-1.0) Urinalysis Test 07/26/24 16:00 Urine Color Yellow (Yellow) Urine Clarity Turbid (Clear) H Urine pH 8.5 (5.0-9.0) Urine Specific [place] 1.015 (1.001-1.035) Urine Protein 3+ (Negative) H Urine Ketones Negative (Negative) Urine Blood Negative /uL (Negative) Urine Nitrite Negative (Negative) Urine Bilirubin Negative (Negative) Urine Urobilinogen Normal mg/dL (Negative) Urine Leukocyte Esterase Negative /uL (Negative) Urine RBC 7 /hpf (0 - 3) Urine Microscopic WBC 5 /HPF (0-3) H Urine Squamous Epithelial Cells Few /hpf (<5) Urine Bacteria Few /hpf (None Seen) H Urine Hyaline Casts Few /lpf (0 - 2) Urine Glucose 2+ mg/dL (Normal) H Microbiology Microbiology Date/Time Source Procedure Growth Status 07/24/24 09:20 Other Gram Stain - Final Resulted 07/24/24 09:20 Other Anaerobic Culture - Preliminary Resulted 07/24/24 09:20 Other Aerobic Culture - Preliminary Resulted 07/13/24 11:26 Blood Blood Culture - Final NO GROWTH AFTER 5 DAYS OF INCUBATION. Complete Assessment/Plan Assessment/Plan Chronic pain syndrome Right hip pain: Hip x-ray negative Acute osteomyelitis L4-5 by MRI L-spine: Consult by ID Dr. Jack Cronin appreciated, placed on vancomycin and meropenem Status post laminectomy and foraminectomy at multiple levels of the lumbar spine by Dr. Villafana on 07/24/2024 ESRD on hemodialysis by Dr. Byrd Accelerated hypertension Acute generalized Weakness Anemia of chronic disease Coronary artery disease status post stents x3 Plavix Acute on chronic CHF exacerbation ejection fraction 35 percent Diabetes History of seizures on gabapentin Hypertension Hyperlipidemia Obesity Chronic current smoker counseling Cardiology Dr. Cooper cleared for spine surgery Blood-tinged emesis: DC aspirin, start pantoprazole [address] Villafana advised no blood thinners for two weeks if possible PICC line ordered Time spent 55 minutes Advanced care planning time 20 minutes Patient is full code PCP Scott Wade Previous hospital stay 04/15/24 to 05-02-24 Spoke to patient's five Marycruz [phone] one and advised the current diagnosis management Physical therapy ordered Placed on muscle relaxant Flexeril per ortho recommendation Patient needs IV meropenem and vancomycin for six weeks (SNF/ Home Health) Possible discharge on 07-30-24 Mon Plan discussed with: Patient Date of Service: July 28, 2024 Billing Provider: CHIDI MARSH MD Common Visit Codes: [id number] INP/OBS CARE(HIGH) CHIDI MARSH MD July 28, 2024 19:38
--- NOTE | 2024-07-28 23:34 | DVHPN2 ---
Consult Progress Note Date Seen: July 28, 2024 Subjective Patient reports: Other (endorsing some mild back pain at site of wound vac and wound vac is on full suctiona nd not draining much ) Objective vital signs Vital Sign Date Time Temp Pulse Resp B/P (MAP) Pulse Ox O2 Delivery O2 Flow Rate FiO2 07/28/24 21:28 75 18 176/34 07/28/24 16:30 98.2 100 98.2 07/28/24 10:00 Room Air* 0 21 Total Intake and Output 07/27/24 07/27/24 07/28/24 15:00 23:00 07:00 Intake Total 50 ml 600 ml 100 ml Output Total 100 ml 200 ml Balance 50 ml 500 ml -100 ml medications Current Medications Medications Dose Ordered Sig/Gerard Route Start Time Stop Time Status Last Admin Dose Admin Amlodipine Besylate 10 mg DAILY PO 07/12/24 10:00 07/27/24 09:00 10 MG Atorvastatin Calcium 40 mg HS PO 07/12/24 22:00 07/28/24 21:27 40 MG Calcium Acetate 667 mg TIDWMEALS PO 07/12/24 08:00 07/28/24 16:38 667 MG Clopidogrel Bisulfate 75 mg DAILY PO 07/12/24 10:00 Hold 07/13/24 09:19 75 MG Furosemide 40 mg DAILY PO 07/12/24 10:00 07/27/24 09:01 40 MG Gabapentin 100 mg TID PO 07/12/24 06:00 07/28/24 21:27 100 MG Hydralazine HCl 50 mg Q8HR PO 07/12/24 06:00 07/28/24 21:27 50 MG Isosorbide Mononitrate 30 mg DAILY PO 07/12/24 10:00 07/27/24 09:01 30 MG Ranolazine 500 mg BID PO 07/12/24 10:00 07/28/24 21:27 500 MG Metoprolol Succinate 100 mg DAILY PO 07/12/24 10:00 07/27/24 09:02 100 MG Acetaminophen 650 mg Q6HP PRN PO 07/12/24 00:30 Lorazepam 1 mg Q5MINP PRN IV 07/12/24 13:00 07/19/24 05:18 1 MG Diazepam 10 mg DAILY PRN PO 07/14/24 10:45 07/25/24 09:32 10 MG Clonidine HCl 0.2 mg Q6HP PRN PO 07/15/24 12:15 07/18/24 19:13 0.2 MG Nicotine 1 patch DAILY TD 07/17/24 10:00 07/28/24 08:36 1 PATCH Sacubitril/ Valsartan 2 tab BID PO 07/17/24 10:00 07/28/24 21:26 2 TAB Pantoprazole Sodium 40 mg DAILY IV 07/23/24 10:00 07/27/24 09:02 40 MG Docusate Sodium 100 mg BID PO 07/22/24 22:00 07/28/24 21:27 100 MG Hydromorphone HCl 2 mg Q4HPRN PRN IV 07/23/24 13:00 07/28/24 21:28 2 MG Ondansetron HCl 4 mg Q4HPRN PRN IV 07/24/24 14:00 07/27/24 00:02 4 MG Meropenem 50 ml @ 17 mls/hr Q12HR IV 07/25/24 22:00 07/28/24 21:32 17 MLS/HR Vancomycin HCl 0 ml @ 0 mls/hr UD IV 07/25/24 13:30 Cyclobenzaprine HCl 10 mg TID PO 07/26/24 14:00 07/28/24 21:27 10 MG Sodium Chloride 10 ml QSHIFT@10,22 IV 07/26/24 10:00 07/28/24 21:38 10 ML laboratory and microbiology Laboratory Tests 07/28/24 07:15 Test 07/28/24 07:15 Range/Units Serum Glucose 136 H 74-106 mg/dL Problem List/Assessment/Plan Problems(with codes): (1) Postoperative pain after spinal surgery (2) Muscle spasm of back (3) Acute chest pain (4) Intractable low back pain (5) Pneumonia, unspecified organism (6) End stage renal disease on dialysis (7) Chronic back pain Problem List/Assessment/Plan Reviewed subjective, clinical findings, assessment and plan as described by Dr. Dugan Mr. Mikhail Mckee is a 59 year old male with a past medical history of active smoking history ,end stage renal disease , bedbound , COPD , seizures, were found to have a right buttock abscess last year that was treated with antibiotics , unclear where this was done . Presented with pneumonia here , klebsiella and MRSA growth here and was treated with vancomycin and cefepime for 6 weeks per culture sensitivities. Now is back with worsening lower extremity weakness and numbness of the legs , right hip pain. Ct was performed on his lower back and he has a progressive discitis and osteomyelitis with increased end plare destruction compression of the thecolphycodema and possible para spinal abscess. 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 Jaimes recommends holding plavix and will continue vancomycin and maripenum. 07/14: Findings of MRI are consistent with discitis and osteomyelitis . pre pertibral abscess appears smaller although not optimally characterized without IV contrast. remains prominent edema in the prevertebral soft tissue centered L4-L5 level edema and pedicals and parals in L4-L5 may be due to extension of osteomyelitis in this location or stress related changes. degenerate disc disease and facet disease in lumbar spine with associate spinal canal subarticular and neuronal phenomenon stenosis above 07/15: tolerated dialysis yesterday and blood cultures are no growth to date 07/16: unclear if upper neurological symptoms are related to potential spread of infection . 07/17: thin and emaciated , would be high risk for surgery in most scenarios 07/18: vancomycin levels are therapeutic and tolerating dialysis 15: weak but able to ambulate with assistance and awaiting surgery 16: still awaiting a time to go to the OR for surgery 17: awaiting OR time next week 07/22: shows no active signs of sepsis and awaiting surgery 07/23: Is going to get an operative debridement of patients lumbar spine and lumbar fusion tomorrow 07/24: patient underwent labitomes for anatomies fastetectomys as S 1 bilaterally , decompression of the central canal and bilateral sacral one nerve roots , lumbar 5 laminectomy , lumbar 4 laminectomy , bilaterally 3 laminectomy , lumbar 5 and 4 nerver roots , IND of the deep lumbar spine infection was done and cultures were obtained 07/25: tolerating diet , awaiting operative culture results which currently show no organisms 07/26: awaiting IV antibiotics to be set up for home 07/27: working with case management to get appropriate home antibiotics according to patients preference 07/28: wound vac is causing patient some pain however out of proportion to what is seen clinically plan: - defer post op management of sacral spine to neurosurgeon , wound vac care per neurosurgeons recommendations - follow up on operative cultures - acquire a piccline - Recommend continue vancomycin and meropenem via piccline and Vancomycin can be delivered via dialysis line and continue for 6 weeks - follow up with infectious disease clinic in 4 weeks - follow up with neurosurgery for wound vac and post op care - recommend nutrition consult to optimize patients dietary protein intake - recommend head Ct to rule out potential spread of infection in the head or neck - if theres any epidural component above it is covered by vancomycin and meropenum - recommend blood cultures - recommend said rate and CRP testing - recommend MRI without contrast of lumbar spine to further evaluate osteomyelitis and discitis - will require biopsy of spine and para spinal muscles that are infected and send for bacterial aerobic and anaerobic culturing when patient gets a surgical laminectomy Plan discussed with: Other Dietary Evaluation Review Comments: 1) Nepro Carb Steady 240ml daily (ordered per [facility] protocol) 2) Nephro-Katya 1 tab daily 3) continue current POC Expected Outcomes/Goals: To meet at least 75% estimated needs FU 3-5 days ENDY CAMP MD July 28, 2024 23:34
[2024-07-29] VITALS (10 sets, daily range): BP systolic 110–156; BP diastolic 32–57; PULSE 79–87; RESP 16–20; TEMP 97.5–98.4; O2SAT 85–100
[2024-07-29 07:56] LABS: Basophils # (auto) 0 10 ^3/uL (0-0.2); Basophils % (auto) 0.5 % (0.0-2.0); Eosinophils # (auto) 0.3 10 ^3/uL (0-0.8); Eosinophils % (auto) 5.1 % (0.0-7.0); Hematocrit 32.3 % (41.0-53.0); Hemoglobin 10.7 g/dL (13.5-17.5); Lymphocytes # (auto) 0.8 10 ^3/uL (0.4-5.4); Lymphocytes % (auto) 12.5 % (10.0-50.0); Mean Corpuscular Hemoglobin 30.2 pg (28.0-32.0); Mean Corpuscular Hgb Conc. 33.1 g/dL (32.0-36.0); Mean Corpuscular Volume 91.3 fL (80.0-100.0); Monocytes # (auto) 0.7 10 ^3/uL (0-1.3); Monocytes % (auto) 12.2 % (0.0-12.0); Neutrophils # (auto) 4.2 10 ^3/uL (1.6-8.6); Neutrophils % (auto) 69.7 % (37.0-80.0); Platelet Count (auto) 98 10^3/uL (140-450); Red Blood Cells 3.54 10^6/uL (4.5-5.90); Red Cell Distribution Width 16.6 % (11.8-14.3); White Blood Cell 6.1 10^3/uL (4.4-10.8)
--- NOTE | 2024-07-29 12:29 | DVHPN2 ---
Progress Note - Dictate Date Seen: July 29, 2024 Has the PT tested + for MRSA If YES, has PT been informed?: No Medical Necessity Reason Pt with a Central, PICC or Fol: No Subjective No new complaints Seems to be in good spirits vital signs Vital Sign Date Time Temp Pulse Resp B/P (MAP) Pulse Ox O2 Delivery O2 Flow Rate FiO2 07/29/24 11:20 82 18 124/56 07/29/24 10:10 100 Nasal Cannula* 2 28 07/29/24 08:53 98.4 98.4 Total Intake and Output 07/28/24 07/28/24 07/29/24 15:00 23:00 07:00 Intake Total 50 ml Balance 50 ml medications Current Medications Medications Dose Ordered Sig/Gerard Route Start Time Stop Time Status Last Admin Dose Admin Amlodipine Besylate 10 mg DAILY PO 07/12/24 10:00 07/27/24 09:00 10 MG Atorvastatin Calcium 40 mg HS PO 07/12/24 22:00 07/28/24 21:27 40 MG Calcium Acetate 667 mg TIDWMEALS PO 07/12/24 08:00 07/29/24 12:24 667 MG Clopidogrel Bisulfate 75 mg DAILY PO 07/12/24 10:00 Hold 07/13/24 09:19 75 MG Furosemide 40 mg DAILY PO 07/12/24 10:00 07/29/24 10:47 40 MG Gabapentin 100 mg TID PO 07/12/24 06:00 07/29/24 06:02 100 MG Hydralazine HCl 50 mg Q8HR PO 07/12/24 06:00 07/29/24 06:04 50 MG Isosorbide Mononitrate 30 mg DAILY PO 07/12/24 10:00 07/29/24 10:47 30 MG Ranolazine 500 mg BID PO 07/12/24 10:00 07/29/24 10:49 500 MG Metoprolol Succinate 100 mg DAILY PO 07/12/24 10:00 07/27/24 09:02 100 MG Acetaminophen 650 mg Q6HP PRN PO 07/12/24 00:30 Lorazepam 1 mg Q5MINP PRN IV 07/12/24 13:00 07/29/24 00:57 1 MG Diazepam 10 mg DAILY PRN PO 07/14/24 10:45 07/25/24 09:32 10 MG Clonidine HCl 0.2 mg Q6HP PRN PO 07/15/24 12:15 07/18/24 19:13 0.2 MG Nicotine 1 patch DAILY TD 07/17/24 10:00 07/28/24 08:36 1 PATCH Sacubitril/ Valsartan 2 tab BID PO 07/17/24 10:00 07/29/24 10:46 2 TAB Pantoprazole Sodium 40 mg DAILY IV 07/23/24 10:00 07/29/24 10:46 40 MG Docusate Sodium 100 mg BID PO 07/22/24 22:00 07/29/24 10:46 100 MG Hydromorphone HCl 2 mg Q4HPRN PRN IV 07/23/24 13:00 07/29/24 10:50 2 MG Ondansetron HCl 4 mg Q4HPRN PRN IV 07/24/24 14:00 07/27/24 00:02 4 MG Meropenem 50 ml @ 17 mls/hr Q12HR IV 07/25/24 22:00 07/29/24 10:48 17 MLS/HR Vancomycin HCl 0 ml @ 0 mls/hr UD IV 07/25/24 13:30 Cyclobenzaprine HCl 10 mg TID PO 07/26/24 14:00 07/29/24 06:02 10 MG Sodium Chloride 10 ml QSHIFT@10,22 IV 07/26/24 10:00 07/29/24 10:48 10 ML objective Alert and oriented x 3 NAD Lungs CTA CV: RR, S4 gallop Abdomen: soft, NT No leg edema laboratory and microbiology Laboratory Tests 07/29/24 07:00 07/28/24 07:15 Test 07/28/24 07:15 Range/Units Serum Glucose 136 H 74-106 mg/dL Problem List 1. End-stage renal disease on hemodialysis via AV fistula. 2. Intractable low back pain. Pain control has improved 3. Diskitis/osteomyelitis of the L4-L5, s/p laminectomy 4. Hypertension uncontrolled 5. Hyperkalemia managed with dialysis. 6. Anemia of end-stage renal disease. 7. CAD. 8. Chronic pain syndrome. Plan slight recommendations: Continue HD on TTS schedule No need for Epogen since Hb is above target range Analgesia. Continue phosphate binders PICC line ok for long term care social worker IV antibiotics DC planning to SNF DC planning Dietary Evaluation Review Comments: 1) Nepro Carb Steady 240ml daily (ordered per [facility] protocol) 2) Nephro-Katya 1 tab daily 3) continue current POC Expected Outcomes/Goals: To meet at least 75% estimated needs FU 3-5 days Plan discussed with: Patient IVORY LEARY MD July 29, 2024 12:29
--- NOTE | 2024-07-29 17:49 | DVHPN2 ---
Subjective in bed resting Reviewed: Care Plan Changes from previous H/P or p: No Changes Objective Vitals Vital Signs Date Time Temp Pulse Resp B/P (MAP) Pulse Ox O2 Delivery O2 Flow Rate FiO2 07/29/24 16:46 98.3 79 18 110/54 (72) 100 98.3 07/29/24 10:10 Nasal Cannula* 2 28 Intake/Output Intake and Output 07/29/24 07:00 Intake Total 50 ml Balance 50 ml IV Total 50 ml # Voids 2 # Bowel Movements 2 General Appearance: Alert, Oriented X3 Cardiovascular: Regular rate, Normal S1, Normal S2 Medications Current Medications Medications Dose Ordered Sig/Gerard Route Start Time Stop Time Status Last Admin Dose Admin Amlodipine Besylate 10 mg DAILY PO 07/12/24 10:00 07/27/24 09:00 10 MG Atorvastatin Calcium 40 mg HS PO 07/12/24 22:00 07/28/24 21:27 40 MG Calcium Acetate 667 mg TIDWMEALS PO 07/12/24 08:00 07/29/24 12:24 667 MG Clopidogrel Bisulfate 75 mg DAILY PO 07/12/24 10:00 Hold 07/13/24 09:19 75 MG Furosemide 40 mg DAILY PO 07/12/24 10:00 07/29/24 10:47 40 MG Gabapentin 100 mg TID PO 07/12/24 06:00 07/29/24 14:49 100 MG Hydralazine HCl 50 mg Q8HR PO 07/12/24 06:00 07/29/24 06:04 50 MG Isosorbide Mononitrate 30 mg DAILY PO 07/12/24 10:00 07/29/24 10:47 30 MG Ranolazine 500 mg BID PO 07/12/24 10:00 07/29/24 10:49 500 MG Metoprolol Succinate 100 mg DAILY PO 07/12/24 10:00 07/27/24 09:02 100 MG Acetaminophen 650 mg Q6HP PRN PO 07/12/24 00:30 Lorazepam 1 mg Q5MINP PRN IV 07/12/24 13:00 07/29/24 00:57 1 MG Diazepam 10 mg DAILY PRN PO 07/14/24 10:45 07/25/24 09:32 10 MG Clonidine HCl 0.2 mg Q6HP PRN PO 07/15/24 12:15 07/18/24 19:13 0.2 MG Nicotine 1 patch DAILY TD 07/17/24 10:00 07/28/24 08:36 1 PATCH Sacubitril/ Valsartan 2 tab BID PO 07/17/24 10:00 07/29/24 10:46 2 TAB Pantoprazole Sodium 40 mg DAILY IV 07/23/24 10:00 07/29/24 10:46 40 MG Docusate Sodium 100 mg BID PO 07/22/24 22:00 07/29/24 10:46 100 MG Hydromorphone HCl 2 mg Q4HPRN PRN IV 07/23/24 13:00 07/29/24 15:01 2 MG Ondansetron HCl 4 mg Q4HPRN PRN IV 07/24/24 14:00 07/27/24 00:02 4 MG Meropenem 50 ml @ 17 mls/hr Q12HR IV 07/25/24 22:00 07/29/24 10:48 17 MLS/HR Vancomycin HCl 0 ml @ 0 mls/hr UD IV 07/25/24 13:30 Cyclobenzaprine HCl 10 mg TID PO 07/26/24 14:00 07/29/24 14:49 10 MG Sodium Chloride 10 ml QSHIFT@10,22 IV 07/26/24 10:00 07/29/24 10:48 10 ML Laboratory Results Laboratory Tests 07/28/24 07:15 07/29/24 07:00 Urinalysis Test 07/26/24 16:00 Urine Color Yellow (Yellow) Urine Clarity Turbid (Clear) H Urine pH 8.5 (5.0-9.0) Urine Specific [place] 1.015 (1.001-1.035) Urine Protein 3+ (Negative) H Urine Ketones Negative (Negative) Urine Blood Negative /uL (Negative) Urine Nitrite Negative (Negative) Urine Bilirubin Negative (Negative) Urine Urobilinogen Normal mg/dL (Negative) Urine Leukocyte Esterase Negative /uL (Negative) Urine RBC 7 /hpf (0 - 3) Urine Microscopic WBC 5 /HPF (0-3) H Urine Squamous Epithelial Cells Few /hpf (<5) Urine Bacteria Few /hpf (None Seen) H Urine Hyaline Casts Few /lpf (0 - 2) Urine Glucose 2+ mg/dL (Normal) H Microbiology Microbiology Date/Time Source Procedure Growth Status 07/24/24 09:20 Other Gram Stain - Final Resulted 07/24/24 09:20 Other Anaerobic Culture - Preliminary Resulted 07/24/24 09:20 Other Aerobic Culture - Preliminary Resulted 07/13/24 11:26 Blood Blood Culture - Final NO GROWTH AFTER 5 DAYS OF INCUBATION. Complete Assessment/Plan Assessment/Plan Chronic pain syndrome Right hip pain: Hip x-ray negative Acute osteomyelitis L4-5 by MRI L-spine: Consult by ID Dr. Jack Cronin appreciated, placed on vancomycin and meropenem Status post laminectomy and foraminectomy at multiple levels of the lumbar spine by Dr. Villafana on 07/24/2024 ESRD on hemodialysis by Dr. Byrd Accelerated hypertension Acute generalized Weakness Anemia of chronic disease Coronary artery disease status post stents x3 Plavix Acute on chronic CHF exacerbation ejection fraction 35 percent Diabetes History of seizures on gabapentin Hypertension Hyperlipidemia Obesity Chronic current smoker counseling Cardiology Dr. Cooper cleared for spine surgery Blood-tinged emesis: DC aspirin, start pantoprazole [address] Villafana advised no blood thinners for two weeks if possible PICC line ordered Time spent 55 minutes Advanced care planning time 20 minutes Patient is full code PCP Scott Wade Previous hospital stay 04/15/24 to 05-02-24 Spoke to patient's five Marycruz [phone] one and advised the current diagnosis management Physical therapy ordered Placed on muscle relaxant Flexeril per ortho recommendation Patient needs IV meropenem and vancomycin for six weeks (SNF/ Home Health) Possible discharge on 07-30-24 Mon Plan discussed with: Patient Date of Service: July 29, 2024 Billing Provider: CHIDI MARSH MD Common Visit Codes: [id number] INP/OBS CARE(HIGH) CHIDI MARSH MD July 29, 2024 17:49
--- NOTE | 2024-07-29 23:09 | DVHPN2 ---
Consult Progress Note Date Seen: July 29, 2024 Subjective Patient reports: Other (patient is still having nausea , dizziness , headaches , vomitting , poor po tolerance . emaciated ) Objective vital signs Vital Sign Date Time Temp Pulse Resp B/P (MAP) Pulse Ox O2 Delivery O2 Flow Rate FiO2 07/29/24 21:30 137/57 07/29/24 21:00 97.5 79 17 100 97.5 07/29/24 20:00 Nasal Cannula* 2 28 Total Intake and Output 07/28/24 07/28/24 07/29/24 15:00 23:00 07:00 Intake Total 50 ml Balance 50 ml medications Current Medications Medications Dose Ordered Sig/Gerard Route Start Time Stop Time Status Last Admin Dose Admin Amlodipine Besylate 10 mg DAILY PO 07/12/24 10:00 07/27/24 09:00 10 MG Atorvastatin Calcium 40 mg HS PO 07/12/24 22:00 07/29/24 21:30 40 MG Calcium Acetate 667 mg TIDWMEALS PO 07/12/24 08:00 07/29/24 19:17 667 MG Clopidogrel Bisulfate 75 mg DAILY PO 07/12/24 10:00 Hold 07/13/24 09:19 75 MG Furosemide 40 mg DAILY PO 07/12/24 10:00 07/29/24 10:47 40 MG Gabapentin 100 mg TID PO 07/12/24 06:00 07/29/24 21:30 100 MG Hydralazine HCl 50 mg Q8HR PO 07/12/24 06:00 07/29/24 21:30 50 MG Isosorbide Mononitrate 30 mg DAILY PO 07/12/24 10:00 07/29/24 10:47 30 MG Ranolazine 500 mg BID PO 07/12/24 10:00 07/29/24 21:30 500 MG Metoprolol Succinate 100 mg DAILY PO 07/12/24 10:00 07/27/24 09:02 100 MG Acetaminophen 650 mg Q6HP PRN PO 07/12/24 00:30 Lorazepam 1 mg Q5MINP PRN IV 07/12/24 13:00 07/29/24 00:57 1 MG Diazepam 10 mg DAILY PRN PO 07/14/24 10:45 07/25/24 09:32 10 MG Clonidine HCl 0.2 mg Q6HP PRN PO 07/15/24 12:15 07/18/24 19:13 0.2 MG Nicotine 1 patch DAILY TD 07/17/24 10:00 07/28/24 08:36 1 PATCH Sacubitril/ Valsartan 2 tab BID PO 07/17/24 10:00 07/29/24 21:30 2 TAB Pantoprazole Sodium 40 mg DAILY IV 07/23/24 10:00 07/29/24 10:46 40 MG Docusate Sodium 100 mg BID PO 07/22/24 22:00 07/29/24 21:30 100 MG Hydromorphone HCl 2 mg Q4HPRN PRN IV 07/23/24 13:00 07/29/24 20:07 2 MG Ondansetron HCl 4 mg Q4HPRN PRN IV 07/24/24 14:00 07/27/24 00:02 4 MG Meropenem 50 ml @ 17 mls/hr Q12HR IV 07/25/24 22:00 07/29/24 21:31 17 MLS/HR Vancomycin HCl 0 ml @ 0 mls/hr UD IV 07/25/24 13:30 Cyclobenzaprine HCl 10 mg TID PO 07/26/24 14:00 07/29/24 21:30 10 MG Sodium Chloride 10 ml QSHIFT@10,22 IV 07/26/24 10:00 07/29/24 21:36 10 ML laboratory and microbiology Laboratory Tests 07/29/24 07:00 07/28/24 07:15 Test 07/28/24 07:15 Range/Units Serum Glucose 136 H 74-106 mg/dL Problem List/Assessment/Plan Problems(with codes): (1) Shortness of breath (2) Chronic back pain (3) End stage renal disease on dialysis (4) Pneumonia, unspecified organism (5) Intractable low back pain (6) Acute chest pain (7) Postoperative pain after spinal surgery (8) Muscle spasm of back Problem List/Assessment/Plan Reviewed subjective, clinical findings, assessment and plan as described by Dr. Dugan Mr. Mikhail Mckee is a 59 year old male with a past medical history of active smoking history ,end stage renal disease , bedbound , COPD , seizures, were found to have a right buttock abscess last year that was treated with antibiotics , unclear where this was done . Presented with pneumonia here , klebsiella and MRSA growth here and was treated with vancomycin and cefepime for 6 weeks per culture sensitivities. Now is back with worsening lower extremity weakness and numbness of the legs , right hip pain. Ct was performed on his lower back and he has a progressive discitis and osteomyelitis with increased end plare destruction compression of the thecolphycodema and possible para spinal abscess. 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 Jaimes recommends holding plavix and will continue vancomycin and maripenum. 07/14: Findings of MRI are consistent with discitis and osteomyelitis . pre pertibral abscess appears smaller although not optimally characterized without IV contrast. remains prominent edema in the prevertebral soft tissue centered L4-L5 level edema and pedicals and parals in L4-L5 may be due to extension of osteomyelitis in this location or stress related changes. degenerate disc disease and facet disease in lumbar spine with associate spinal canal subarticular and neuronal phenomenon stenosis above 07/15: tolerated dialysis yesterday and blood cultures are no growth to date 07/16: unclear if upper neurological symptoms are related to potential spread of infection . 07/17: thin and emaciated , would be high risk for surgery in most scenarios 07/18: vancomycin levels are therapeutic and tolerating dialysis 15: weak but able to ambulate with assistance and awaiting surgery 16: still awaiting a time to go to the OR for surgery 17: awaiting OR time next week 07/22: shows no active signs of sepsis and awaiting surgery 07/23: Is going to get an operative debridement of patients lumbar spine and lumbar fusion tomorrow 07/24: patient underwent labitomes for anatomies fastetectomys as S 1 bilaterally , decompression of the central canal and bilateral sacral one nerve roots , lumbar 5 laminectomy , lumbar 4 laminectomy , bilaterally 3 laminectomy , lumbar 5 and 4 nerver roots , IND of the deep lumbar spine infection was done and cultures were obtained 07/25: tolerating diet , awaiting operative culture results which currently show no organisms 07/26: awaiting IV antibiotics to be set up for home 07/27: working with case management to get appropriate home antibiotics according to patients preference 07/28: wound vac is causing patient some pain however out of proportion to what is seen clinically 07/29: patient is overall recovering as expected from surgery , unlikely that current nausea , vomiting and headaches are due to current infection plan: - recommend out of bed work with physical therapy while in patient - defer post op management of sacral spine to neurosurgeon , wound vac care per neurosurgeons recommendations - follow up on operative cultures - acquire a piccline - Recommend continue vancomycin and meropenem via piccline and Vancomycin can be delivered via dialysis line and continue for 6 weeks - follow up with infectious disease clinic in 4 weeks - follow up with neurosurgery for wound vac and post op care - recommend nutrition consult to optimize patients dietary protein intake - recommend head Ct to rule out potential spread of infection in the head or neck - if theres any epidural component above it is covered by vancomycin and meropenum - recommend blood cultures - recommend said rate and CRP testing - recommend MRI without contrast of lumbar spine to further evaluate osteomyelitis and discitis - will require biopsy of spine and para spinal muscles that are infected and send for bacterial aerobic and anaerobic culturing when patient gets a surgical laminectomy Plan discussed with: Other Dietary Evaluation Review Comments: 1) Nepro Carb Steady 240ml daily (ordered per [facility]NS protocol) 2) Nephro-Katya 1 tab daily 3) continue current POC Expected Outcomes/Goals: To meet at least 75% estimated needs FU 3-5 days ENDY CAMP MD July 29, 2024 23:09
[2024-07-30] VITALS (10 sets, daily range): BP systolic 98–152; BP diastolic 41–79; PULSE 64–87; RESP 16–20; TEMP 97.6–98.6; O2SAT 94–100
[2024-07-30 07:32] LABS: Basophils # (auto) 0 10 ^3/uL (0-0.2); Basophils % (auto) 0.5 % (0.0-2.0); Eosinophils # (auto) 0.4 10 ^3/uL (0-0.8); Eosinophils % (auto) 7.1 % (0.0-7.0); Hematocrit 28.8 % (41.0-53.0); Hemoglobin 9.7 g/dL (13.5-17.5); Lymphocytes # (auto) 0.7 10 ^3/uL (0.4-5.4); Lymphocytes % (auto) 14.8 % (10.0-50.0); Mean Corpuscular Hemoglobin 30.7 pg (28.0-32.0); Mean Corpuscular Hgb Conc. 33.5 g/dL (32.0-36.0); Mean Corpuscular Volume 91.6 fL (80.0-100.0); Monocytes # (auto) 0.7 10 ^3/uL (0-1.3); Monocytes % (auto) 13.9 % (0.0-12.0); Neutrophils # (auto) 3.2 10 ^3/uL (1.6-8.6); Neutrophils % (auto) 63.7 % (37.0-80.0); Nucleated Red Blood Cells % 0.1 %; Platelet Count (auto) 93 10^3/uL (140-450); Red Blood Cells 3.15 10^6/uL (4.5-5.90); Red Cell Distribution Width 16.8 % (11.8-14.3)
--- NOTE | 2024-07-30 08:22 | DVHPN2 ---
Progress Note - Dictate Date Seen: July 30, 2024 Has the PT tested + for MRSA If YES, has PT been informed?: No Medical Necessity Reason Pt with a Central, PICC or Fol: No Subjective No acute issues overnight Feeling well vital signs Vital Sign Date Time Temp Pulse Resp B/P (MAP) Pulse Ox O2 Delivery O2 Flow Rate FiO2 07/30/24 05:28 144/118 07/30/24 05:00 97.9 78 18 100 97.9 07/29/24 20:00 Nasal Cannula* 2 28 Total Intake and Output 07/29/24 07/29/24 07/30/24 15:00 23:00 07:00 Intake Total 150 ml 420 ml Output Total 200 ml 650 ml Balance -50 ml -230 ml medications Current Medications Medications Dose Ordered Sig/Gerard Route Start Time Stop Time Status Last Admin Dose Admin Amlodipine Besylate 10 mg DAILY PO 07/12/24 10:00 07/27/24 09:00 10 MG Atorvastatin Calcium 40 mg HS PO 07/12/24 22:00 07/29/24 21:30 40 MG Calcium Acetate 667 mg TIDWMEALS PO 07/12/24 08:00 07/29/24 19:17 667 MG Clopidogrel Bisulfate 75 mg DAILY PO 07/12/24 10:00 Hold 07/13/24 09:19 75 MG Furosemide 40 mg DAILY PO 07/12/24 10:00 07/29/24 10:47 40 MG Gabapentin 100 mg TID PO 07/12/24 06:00 07/30/24 05:28 100 MG Hydralazine HCl 50 mg Q8HR PO 07/12/24 06:00 07/30/24 05:28 50 MG Isosorbide Mononitrate 30 mg DAILY PO 07/12/24 10:00 07/29/24 10:47 30 MG Ranolazine 500 mg BID PO 07/12/24 10:00 07/29/24 21:30 500 MG Metoprolol Succinate 100 mg DAILY PO 07/12/24 10:00 07/27/24 09:02 100 MG Acetaminophen 650 mg Q6HP PRN PO 07/12/24 00:30 Lorazepam 1 mg Q5MINP PRN IV 07/12/24 13:00 07/29/24 00:57 1 MG Diazepam 10 mg DAILY PRN PO 07/14/24 10:45 07/25/24 09:32 10 MG Clonidine HCl 0.2 mg Q6HP PRN PO 07/15/24 12:15 07/18/24 19:13 0.2 MG Nicotine 1 patch DAILY TD 07/17/24 10:00 07/28/24 08:36 1 PATCH Sacubitril/ Valsartan 2 tab BID PO 07/17/24 10:00 07/29/24 21:30 2 TAB Pantoprazole Sodium 40 mg DAILY IV 07/23/24 10:00 07/29/24 10:46 40 MG Docusate Sodium 100 mg BID PO 07/22/24 22:00 07/29/24 21:30 100 MG Hydromorphone HCl 2 mg Q4HPRN PRN IV 07/23/24 13:00 07/29/24 20:07 2 MG Ondansetron HCl 4 mg Q4HPRN PRN IV 07/24/24 14:00 07/27/24 00:02 4 MG Meropenem 50 ml @ 17 mls/hr Q12HR IV 07/25/24 22:00 07/29/24 21:31 17 MLS/HR Vancomycin HCl 0 ml @ 0 mls/hr UD IV 07/25/24 13:30 Cyclobenzaprine HCl 10 mg TID PO 07/26/24 14:00 07/30/24 05:28 10 MG Sodium Chloride 10 ml QSHIFT@10,22 IV 07/26/24 10:00 07/29/24 21:36 10 ML objective Alert and oriented x 3 NAD Lungs CTA CV: RRR Abdomen: soft, NT No leg edema laboratory and microbiology Laboratory Tests 07/30/24 06:02 07/28/24 07:15 Test 07/28/24 07:15 Range/Units Serum Glucose 136 H 74-106 mg/dL Problem List 1. End-stage renal disease on hemodialysis via AV fistula. 2. Intractable low back pain. Pain control has improved 3. Diskitis/osteomyelitis of the L4-L5, s/p laminectomy 4. Hypertension 5. Hyperkalemia managed with dialysis. 6. Anemia of end-stage renal disease. 7. CAD. 8. Chronic pain syndrome. Assessment/Plan Plan Continue HD on TTS schedule No need for Epogen since Hb is above target range Analgesia. Continue phosphate binders PICC line placed DC planning Needs IV Vanco and Meropenem for 6 weeks Dietary Evaluation Review Comments: 1) Nepro Carb Steady 240ml daily (ordered per [facility]NS protocol) 2) Nephro-Katya 1 tab daily 3) continue current POC Expected Outcomes/Goals: To meet at least 75% estimated needs FU 3-5 days Plan discussed with: Patient, Spouse NETTIE LIVINGSTON MD July 30, 2024 08:22
[2024-07-30 09:15] LABS: Alanine Aminotransferase 13 U/L (7-40); Albumin 3.4 g/dL (3.2-4.8); Alkaline Phosphatase 75 U/L (46-116); Anion Gap 10 (5-15); Aspartate Aminotransferase 16 U/L (13-40); Bilirubin, Total 0.3 mg/dL (0.2-1.0); Calcium 9.3 mg/dL (8.7-10.4); Carbon Dioxide 29 mmol/L (20-31)
[2024-07-30 09:16] LABS: Blood Urea Nitrogen 33 mg/dL (9-23); Chloride 96 mmol/L (98-107); Glucose 106 mg/dL (74-106); Sodium 135 mmol/L (136-145); Total Protein 5.3 g/dL (5.7-8.2)
[2024-07-30 09:17] LABS: Potassium 5.6 mmol/L (3.5-5.1)
--- NOTE | 2024-07-30 09:30 | DVHDS2 ---
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 surgeon Labs/Diagnostic Data: Laboratory Results Test 07/30/24 06:02 07/28/24 14:54 07/26/24 16:00 07/24/24 06:08 White Blood Count 5.0 10^3/uL (4.4-10.8) Red Blood Count 3.15 10^6/uL (4.5-5.90) Hemoglobin 9.7 g/dL (13.5-17.5) Hematocrit 28.8 % (41.0-53.0) Mean Corpuscular Volume 91.6 fL (80.0-100.0) Mean Corpuscular Hemoglobin 30.7 pg (28.0-32.0) Mean Corpuscular Hemoglobin Concent 33.5 g/dL (32.0-36.0) Red Cell Distribution Width 16.8 % (11.8-14.3) Platelet Count 93 10^3/uL (140-450) Mean Platelet Volume 8.1 fL (6.9-10.8) Neutrophils (%) (Auto) 63.7 % (37.0-80.0) Lymphocytes (%) (Auto) 14.8 % (10.0-50.0) Monocytes (%) (Auto) 13.9 % (0.0-12.0) Eosinophils (%) (Auto) 7.1 % (0.0-7.0) Basophils (%) (Auto) 0.5 % (0.0-2.0) Neutrophils # (Auto) 3.2 10 ^3/uL (1.6-8.6) Lymphocytes # (Auto) 0.7 10 ^3/uL (0.4-5.4) Monocytes # (Auto) 0.7 10 ^3/uL (0-1.3) Eosinophils # (Auto) 0.4 10 ^3/uL (0-0.8) Basophils # (Auto) 0 10 ^3/uL (0-0.2) Nucleated Red Blood Cells 0.1 % Sodium Level 135 mmol/L (136-145) Potassium Level 5.6 mmol/L (3.5-5.1) Chloride Level 96 mmol/L (98-107) Carbon Dioxide Level 29 mmol/L (20-31) Anion Gap 10 (5-15) Blood Urea Nitrogen 33 mg/dL (9-23) Creatinine 6.61 mg/dL (0.700-1.30) Glomerular Filtration Rate Calc 9 mL/min (>90) BUN/Creatinine Ratio 5.0 (10.0-20.0) Serum Glucose 106 mg/dL (74-106) Calcium Level 9.3 mg/dL (8.7-10.4) Total Bilirubin 0.3 mg/dL (0.2-1.0) Aspartate Amino Transferase (AST) 16 U/L (13-40) Alanine Aminotransferase (ALT) 13 U/L (7-40) Alkaline Phosphatase 75 U/L (46-116) Total Protein 5.3 g/dL (5.7-8.2) Albumin 3.4 g/dL (3.2-4.8) Random Vancomycin Level 13.6 ug/mL (5-10) POC Glucose 140 mg/dl (70-106) Urine Color Yellow (Yellow) Urine Clarity Turbid (Clear) Urine pH 8.5 (5.0-9.0) Urine Specific [place] 1.015 (1.001-1.035) Urine Protein 3+ (Negative) Urine Ketones Negative (Negative) Urine Blood Negative /uL (Negative) Urine Nitrite Negative (Negative) Urine Bilirubin Negative (Negative) Urine Urobilinogen Normal mg/dL (Negative) Urine Leukocyte Esterase Negative /uL (Negative) Urine RBC 7 /hpf (0 - 3) Urine Microscopic WBC 5 /HPF (0-3) Urine Squamous Epithelial Cells Few /hpf (<5) Urine Bacteria Few /hpf (None Seen) Urine Hyaline Casts Few /lpf (0 - 2) Urine Glucose 2+ mg/dL (Normal) Prothrombin Time 11.1 sec (9.3-11.8) Prothrombin Time INR 1.05 (0.9-1.15) Activated Partial Thromboplast Time 34.7 SEC (24.5-34.5) Test 07/19/24 13:04 07/13/24 16:20 07/13/24 06:22 07/12/24 17:12 Troponin I High Sensitivity 15 ng/L (</=54) Erythrocyte Sedimentation Rate 1 mm/hr (0-20) C-Reactive Protein High Sensitivity 1.66 mg/dL (<1.0) Phosphorus Level 4.5 mg/dL (2.4-5.1) Iron Level 53 ug/dL (65-175) Total Iron Binding Capacity 192 ug/dL (250-425) Percent Iron Saturation 27.6 % (20-55) Ferritin 607.6 ng/mL (22-322) Hepatitis B Surface Antigen Negative (Negative) Other Laboratory Tests 07/30/24 06:02 Brief Hx & Hospital Course: 59-year-old male with a chronic back pain admitted for exacerbation of the pain found to have osteomyelitis L4-5 MRI L-spine seen by ID Dr. Shea placed on vancomycin and meropenem underwent laminectomy and foraminectomy at multiple hours of the lumbar spine by Dr. Villafana on 07/[address] Byrd seen by product management consultant Dr. Cooper counseled about quitting smoking history of diabetes seizures hypertension hyperlipidemia CHF coronary artery disease status post stents with the Plavix Plavix temporarily held for two weeks and he will resume after two weeks. Received physical therapy and pain management being discharged home on home health. Patient will resume [place] home health per patient's . Prescription for Dilaudid and Flexeril transmitted to the pharmacy. Reviewed all other home medications. He will follow up with the Nephrology for vancomycin 3 times a week during dialysis and for meropenem twice a day for six weeks by home health. General condition satisfactory but poor at the time of discharge. Patient and the refused [facility] facility placement for rehab. Consults/Reason for consult Orthopedic Dr. Villafana Urology Dr. Byrd ID Dr Cronin Cardiology Dr. Cooper Operations or Procedures Lumbar spine surgery Condition at Discharge: Poor Final Diagnosis/Problems List Chronic pain syndrome Right hip pain: Hip x-ray negative Acute osteomyelitis L4-5 by MRI L-spine: Consult by ID Dr. Jack Cronin appreciated, placed on vancomycin and meropenem Status post laminectomy and foraminectomy at multiple levels of the lumbar spine by Dr. Villafana on 07/24/2024 ESRD on hemodialysis by Dr. Byrd Accelerated hypertension Acute generalized Weakness Anemia of chronic disease Coronary artery disease status post stents x3 Plavix Acute on chronic CHF exacerbation ejection fraction 35 percent Diabetes History of seizures on gabapentin Hypertension Hyperlipidemia Obesity Chronic current smoker counseling Discharge Disposition: Home with Health Services Discharge Instruct/Medications Diet: Renal Activity: Light activity Follow Up/Referral: Follow up with the Nephrology Dr. Byrd for dialysis Tuesday Follow up with the primary Dr Dr. Sandoval In one week Follow up with the ID in four weeks Resume all previous home medications Resume aspirin and Plavix on 08/09/2024 Medications: Vancomycin 1 g IV daily Tuesday during dialysis for six weeks by senior linux systems administrator Meropenem 500 mg IV q.12h for six weeks by home health Oral medications transmitted to the pharmacy 35 (Time taken for discharge summary 35 minutes) Discharge Statement: "Patient was advised to return to the ER or call 911 if any headaches, dizziness, shortness of breath, chest pain, abdominal pain, bleeding, fevers, or worsening of medical condition. Patient was counseled about treatment plan, medications, possible side effects, patientverbalized understanding. All questions were answered to the best of my ability. This discharge took greater then 30 minutes in planning, reviewing documentation, counseling the patient, and discussing with other team members." ASSESSMENT ASSESSMENT Hospital Course Uneventful Assessment Chronic pain syndrome Right hip pain: Hip x-ray negative Acute osteomyelitis L4-5 by MRI L-spine: Consult by ID Dr. Jack Cronin appreciated, placed on vancomycin and meropenem Status post laminectomy and foraminectomy at multiple levels of the lumbar spine by Dr. Villafana on 07/24/2024 ESRD on hemodialysis by Dr. Byrd Accelerated hypertension Acute generalized Weakness Anemia of chronic disease Coronary artery disease status post stents x3 Plavix Acute on chronic CHF exacerbation ejection fraction 35 percent Diabetes History of seizures on gabapentin Hypertension Hyperlipidemia Obesity Chronic current smoker counseling Date of Service: July 30, 2024 Billing Provider: SHARMIN AN MD Common Visit Codes: [id number] DISCH DAY >30min SHARMIN AN MD July 30, 2024 09:30
[2024-07-30] MEDS ORDERED: HYDR2TAB58 PO (09:33)
[2024-07-30] MEDS ORDERED: CYCL-837 PO (09:33)
[2024-07-30] MEDS: VANCOMYCIN 500mg/100mL 100 ML IV ONE (17:06)
[2024-07-31] VITALS (8 sets, daily range): BP systolic 111–154; BP diastolic 42–78; PULSE 72–82; RESP 16–20; TEMP 98–98.4; O2SAT 93–100
--- NOTE | 2024-07-31 00:13 | DVHPN2 ---
Consult Progress Note Date Seen: July 30, 2024 Subjective Patient reports: Other (tolerating antibiotic therapy , renal function has improved as well as urine output ) Objective vital signs Vital Sign Date Time Temp Pulse Resp B/P (MAP) Pulse Ox O2 Delivery O2 Flow Rate FiO2 07/30/24 22:33 122/62 07/30/24 21:00 97.6 76 20 98 97.6 07/30/24 10:00 Nasal Cannula 2.0 07/30/24 10:00 28 Total Intake and Output 07/30/24 07/30/24 07/31/24 15:00 23:00 07:00 Intake Total 50 ml 1050 ml Balance 50 ml 1050 ml medications Current Medications Medications Dose Ordered Sig/Gerard Route Start Time Stop Time Status Last Admin Dose Admin Amlodipine Besylate 10 mg DAILY PO 07/12/24 10:00 07/30/24 09:18 10 MG Atorvastatin Calcium 40 mg HS PO 07/12/24 22:00 07/30/24 22:33 40 MG Calcium Acetate 667 mg TIDWMEALS PO 07/12/24 08:00 07/30/24 18:09 667 MG Clopidogrel Bisulfate 75 mg DAILY PO 07/12/24 10:00 Hold 07/13/24 09:19 75 MG Furosemide 40 mg DAILY PO 07/12/24 10:00 07/30/24 09:20 40 MG Gabapentin 100 mg TID PO 07/12/24 06:00 07/30/24 22:33 100 MG Hydralazine HCl 50 mg Q8HR PO 07/12/24 06:00 07/30/24 22:33 50 MG Isosorbide Mononitrate 30 mg DAILY PO 07/12/24 10:00 07/30/24 09:15 30 MG Ranolazine 500 mg BID PO 07/12/24 10:00 07/30/24 22:33 500 MG Metoprolol Succinate 100 mg DAILY PO 07/12/24 10:00 07/30/24 09:16 100 MG Acetaminophen 650 mg Q6HP PRN PO 07/12/24 00:30 Lorazepam 1 mg Q5MINP PRN IV 07/12/24 13:00 07/29/24 00:57 1 MG Diazepam 10 mg DAILY PRN PO 07/14/24 10:45 07/25/24 09:32 10 MG Clonidine HCl 0.2 mg Q6HP PRN PO 07/15/24 12:15 07/18/24 19:13 0.2 MG Nicotine 1 patch DAILY TD 07/17/24 10:00 07/28/24 08:36 1 PATCH Sacubitril/ Valsartan 2 tab BID PO 07/17/24 10:00 07/30/24 22:33 2 TAB Pantoprazole Sodium 40 mg DAILY IV 07/23/24 10:00 07/30/24 09:14 40 MG Docusate Sodium 100 mg BID PO 07/22/24 22:00 07/30/24 22:33 100 MG Hydromorphone HCl 2 mg Q4HPRN PRN IV 07/23/24 13:00 07/30/24 18:49 2 MG Ondansetron HCl 4 mg Q4HPRN PRN IV 07/24/24 14:00 07/27/24 00:02 4 MG Meropenem 50 ml @ 17 mls/hr Q12HR IV 07/25/24 22:00 07/30/24 22:32 17 MLS/HR Vancomycin HCl 0 ml @ 0 mls/hr UD IV 07/25/24 13:30 Cyclobenzaprine HCl 10 mg TID PO 07/26/24 14:00 07/30/24 22:33 10 MG Sodium Chloride 10 ml QSHIFT@10,22 IV 07/26/24 10:00 07/30/24 22:33 10 ML laboratory and microbiology Laboratory Tests 07/30/24 06:02 Test 07/30/24 06:02 Range/Units Serum Glucose 106 74-106 mg/dL Problem List/Assessment/Plan Problems(with codes): (1) Acute on chronic systolic heart failure (2) Chronic back pain (3) Pneumonia, unspecified organism (4) Intractable low back pain (5) Acute chest pain (6) Muscle spasm of back (7) Postoperative pain after spinal surgery Problem List/Assessment/Plan Reviewed subjective, clinical findings, assessment and plan as described by Dr. Dugan Mr. Mikhail Mckee is a 59 year old male with a past medical history of active smoking history ,end stage renal disease , bedbound , COPD , seizures, were found to have a right buttock abscess last year that was treated with antibiotics , unclear where this was done . Presented with pneumonia here , klebsiella and MRSA growth here and was treated with vancomycin and cefepime for 6 weeks per culture sensitivities. Now is back with worsening lower extremity weakness and numbness of the legs , right hip pain. Ct was performed on his lower back and he has a progressive discitis and osteomyelitis with increased end plare destruction compression of the thecolphycodema and possible para spinal abscess. 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 Jaimes recommends holding plavix and will continue vancomycin and maripenum. 07/14: Findings of MRI are consistent with discitis and osteomyelitis . pre pertibral abscess appears smaller although not optimally characterized without IV contrast. remains prominent edema in the prevertebral soft tissue centered L4-L5 level edema and pedicals and parals in L4-L5 may be due to extension of osteomyelitis in this location or stress related changes. degenerate disc disease and facet disease in lumbar spine with associate spinal canal subarticular and neuronal phenomenon stenosis above 07/15: tolerated dialysis yesterday and blood cultures are no growth to date 07/16: unclear if upper neurological symptoms are related to potential spread of infection . 07/17: thin and emaciated , would be high risk for surgery in most scenarios 14: vancomycin levels are therapeutic and tolerating dialysis 15: weak but able to ambulate with assistance and awaiting surgery 516: still awaiting a time to go to the OR for surgery 517: awaiting OR time next week 18: shows no active signs of sepsis and awaiting surgery 07/23: Is going to get an operative debridement of patients lumbar spine and lumbar fusion tomorrow 07/24: patient underwent labitomes for anatomies fastetectomys as S 1 bilaterally , decompression of the central canal and bilateral sacral one nerve roots , lumbar 5 laminectomy , lumbar 4 laminectomy , bilaterally 3 laminectomy , lumbar 5 and 4 nerver roots , IND of the deep lumbar spine infection was done and cultures were obtained 07/25: tolerating diet , awaiting operative culture results which currently show no organisms 07/26: awaiting IV antibiotics to be set up for home 07/27: working with case management to get appropriate home antibiotics according to patients preference 07/28: wound vac is causing patient some pain however out of proportion to what is seen clinically 07/29: patient is overall recovering as expected from surgery , unlikely that current nausea , vomiting and headaches are due to current infection 07/30: adjusted home antibiotic therapy plan: - recommend out of bed work with physical therapy while in patient - defer post op management of sacral spine to neurosurgeon , wound vac care per neurosurgeons recommendations - follow up on operative cultures - acquire a piccline - Recommend continue vancomycin and meropenem via piccline and Vancomycin can be delivered via dialysis line and continue for 6 weeks - follow up with infectious disease clinic in 4 weeks - follow up with neurosurgery for wound vac and post op care - recommend nutrition consult to optimize patients dietary protein intake - recommend head Ct to rule out potential spread of infection in the head or neck - if theres any epidural component above it is covered by vancomycin and meropenum - recommend blood cultures - recommend said rate and CRP testing - recommend MRI without contrast of lumbar spine to further evaluate osteomyelitis and discitis - will require biopsy of spine and para spinal muscles that are infected and send for bacterial aerobic and anaerobic culturing when patient gets a surgical laminectomy Plan discussed with: Other Dietary Evaluation Review Comments: 1) Nepro Carb Steady 240ml daily (ordered per [facility] protocol) 2) Nephro-Katya 1 tab daily 3) continue current POC Expected Outcomes/Goals: To meet at least 75% estimated needs FU 3-5 days ENDY CAMP MD July 31, 2024 00:13
[2024-07-31] MEDS ORDERED: SODIUM CHL 0.9% 1000 ML BAG XX ONE (07:00)
--- NOTE | 2024-07-31 08:15 | DVHPN2 ---
Progress Note - Dictate Date Seen: July 31, 2024 Has the PT tested + for MRSA If YES, has PT been informed?: No Medical Necessity Reason Pt with a Central, PICC or Fol: No Subjective Discharge held pending arrangements for antibiotics vital signs Vital Sign Date Time Temp Pulse Resp B/P (MAP) Pulse Ox O2 Delivery O2 Flow Rate FiO2 07/31/24 05:59 154/78 07/31/24 05:00 98.0 72 17 100 98.0 07/30/24 20:00 Nasal Cannula* 2 28 Total Intake and Output 07/30/24 07/30/24 07/31/24 15:00 23:00 07:00 Intake Total 50 ml 1050 ml 600 ml Output Total 200 ml Balance 50 ml 1050 ml 400 ml medications Current Medications Medications Dose Ordered Sig/Gerard Route Start Time Stop Time Status Last Admin Dose Admin Amlodipine Besylate 10 mg DAILY PO 07/12/24 10:00 07/30/24 09:18 10 MG Atorvastatin Calcium 40 mg HS PO 07/12/24 22:00 07/30/24 22:33 40 MG Calcium Acetate 667 mg TIDWMEALS PO 07/12/24 08:00 07/30/24 18:09 667 MG Clopidogrel Bisulfate 75 mg DAILY PO 07/12/24 10:00 Hold 07/13/24 09:19 75 MG Furosemide 40 mg DAILY PO 07/12/24 10:00 07/30/24 09:20 40 MG Gabapentin 100 mg TID PO 07/12/24 06:00 07/31/24 06:00 100 MG Hydralazine HCl 50 mg Q8HR PO 07/12/24 06:00 07/31/24 05:59 50 MG Isosorbide Mononitrate 30 mg DAILY PO 07/12/24 10:00 07/30/24 09:15 30 MG Ranolazine 500 mg BID PO 07/12/24 10:00 07/30/24 22:33 500 MG Metoprolol Succinate 100 mg DAILY PO 07/12/24 10:00 07/30/24 09:16 100 MG Acetaminophen 650 mg Q6HP PRN PO 07/12/24 00:30 Lorazepam 1 mg Q5MINP PRN IV 07/12/24 13:00 07/29/24 00:57 1 MG Diazepam 10 mg DAILY PRN PO 07/14/24 10:45 07/25/24 09:32 10 MG Clonidine HCl 0.2 mg Q6HP PRN PO 07/15/24 12:15 07/18/24 19:13 0.2 MG Nicotine 1 patch DAILY TD 07/17/24 10:00 07/28/24 08:36 1 PATCH Sacubitril/ Valsartan 2 tab BID PO 07/17/24 10:00 07/30/24 22:33 2 TAB Pantoprazole Sodium 40 mg DAILY IV 07/23/24 10:00 07/30/24 09:14 40 MG Docusate Sodium 100 mg BID PO 07/22/24 22:00 07/30/24 22:33 100 MG Hydromorphone HCl 2 mg Q4HPRN PRN IV 07/23/24 13:00 07/31/24 02:43 2 MG Ondansetron HCl 4 mg Q4HPRN PRN IV 07/24/24 14:00 07/27/24 00:02 4 MG Meropenem 50 ml @ 17 mls/hr Q12HR IV 07/25/24 22:00 07/30/24 22:32 17 MLS/HR Vancomycin HCl 0 ml @ 0 mls/hr UD IV 07/25/24 13:30 Cyclobenzaprine HCl 10 mg TID PO 07/26/24 14:00 07/31/24 05:59 10 MG Sodium Chloride 10 ml QSHIFT@10,22 IV 07/26/24 10:00 07/30/24 22:33 10 ML objective Alert and oriented x 3 NAD Lungs CTA CV: RRR Abdomen: soft, NT No leg edema laboratory and microbiology Laboratory Tests 07/30/24 06:02 Test 07/30/24 06:02 Range/Units Serum Glucose 106 74-106 mg/dL Problem List 1. End-stage renal disease on hemodialysis via AV fistula. 2. Intractable low back pain. Pain control has improved 3. Diskitis/osteomyelitis of the L4-L5, s/p laminectomy 4. Hypertension 5. Hyperkalemia managed with dialysis. 6. Anemia of end-stage renal disease. 7. CAD. 8. Chronic pain syndrome. Assessment/Plan Plan Continue HD on TTS schedule Needs IV Vanco and Meropenem for 6 weeks Awaiting arrangements for the same . Dietary Evaluation Review Comments: 1) Nepro Carb Steady 240ml daily (ordered per [facility] protocol) 2) Nephro-Katya 1 tab daily 3) continue current POC Expected Outcomes/Goals: To meet at least 75% estimated needs FU 3-5 days Plan discussed with: NETTIE Garcia MD July 31, 2024 08:15
[2024-07-31] MEDS: SODIUM CHL 0.9% 1000 ML BAG XX ONE ×5 (09:50→09:53)
[2024-07-31] MEDS: TRANEXAMIC ACID 20 ML ONE (09:51)
[2024-07-31] MEDS: SUCCINYLCHOLINE CHLORIDE 20 MG/ML 10ML VIAL IV ONE (09:51)
[2024-07-31] MEDS: LIDOCAINE W/ EPINEPHRINE 1% 20ML VIAL ONE (09:51)
[2024-07-31] MEDS: ROCURONIUM 10MG/ML 10ML VIAL IV ONE (09:51)
[2024-07-31] MEDS: METOCLOPRAMIDE HCL 5MG/ml INJ 2ml VIAL IV ONE (09:52)
[2024-07-31] MEDS: ACCU-CHEK COMFORT CURVE STRIP VI ONE (09:52)
--- NOTE | 2024-07-31 10:02 | DVHPN2 ---
Reviewed: Care Plan Changes from previous H/P or p: No Changes Objective Vitals Vital Signs Date Time Temp Pulse Resp B/P (MAP) Pulse Ox O2 Delivery O2 Flow Rate FiO2 07/31/24 09:44 99 Room Air 0.0 07/31/24 09:44 21 07/31/24 08:57 98.1 74 18 111/60 (77) 98.1 Intake/Output Intake and Output 07/31/24 07:00 Intake Total 1700 ml Output Total 200 ml Balance 1500 ml Intake Oral 1550 ml IV Total 150 ml Output Urine Total 200 ml # Voids 3 # Bowel Movements 2 General Appearance: Alert, Oriented X3 Cardiovascular: Regular rate, Normal S1, Normal S2 Medications Current Medications Medications Dose Ordered Sig/Gerard Route Start Time Stop Time Status Last Admin Dose Admin Amlodipine Besylate 10 mg DAILY PO 07/12/24 10:00 07/31/24 08:45 10 MG Atorvastatin Calcium 40 mg HS PO 07/12/24 22:00 07/30/24 22:33 40 MG Calcium Acetate 667 mg TIDWMEALS PO 07/12/24 08:00 07/31/24 08:46 667 MG Clopidogrel Bisulfate 75 mg DAILY PO 07/12/24 10:00 Hold 07/13/24 09:19 75 MG Furosemide 40 mg DAILY PO 07/12/24 10:00 07/31/24 08:46 40 MG Gabapentin 100 mg TID PO 07/12/24 06:00 07/31/24 06:00 100 MG Hydralazine HCl 50 mg Q8HR PO 07/12/24 06:00 07/31/24 05:59 50 MG Isosorbide Mononitrate 30 mg DAILY PO 07/12/24 10:00 07/31/24 08:47 30 MG Ranolazine 500 mg BID PO 07/12/24 10:00 07/31/24 08:46 500 MG Metoprolol Succinate 100 mg DAILY PO 07/12/24 10:00 07/31/24 08:46 100 MG Acetaminophen 650 mg Q6HP PRN PO 07/12/24 00:30 Lorazepam 1 mg Q5MINP PRN IV 07/12/24 13:00 07/29/24 00:57 1 MG Diazepam 10 mg DAILY PRN PO 07/14/24 10:45 07/25/24 09:32 10 MG Clonidine HCl 0.2 mg Q6HP PRN PO 07/15/24 12:15 07/18/24 19:13 0.2 MG Nicotine 1 patch DAILY TD 07/17/24 10:00 07/28/24 08:36 1 PATCH Sacubitril/ Valsartan 2 tab BID PO 07/17/24 10:00 07/31/24 08:47 2 TAB Pantoprazole Sodium 40 mg DAILY IV 07/23/24 10:00 07/31/24 08:47 40 MG Docusate Sodium 100 mg BID PO 07/22/24 22:00 07/31/24 08:46 100 MG Hydromorphone HCl 2 mg Q4HPRN PRN IV 07/23/24 13:00 07/31/24 08:48 2 MG Ondansetron HCl 4 mg Q4HPRN PRN IV 07/24/24 14:00 07/27/24 00:02 4 MG Meropenem 50 ml @ 17 mls/hr Q12HR IV 07/25/24 22:00 07/31/24 08:49 17 MLS/HR Vancomycin HCl 0 ml @ 0 mls/hr UD IV 07/25/24 13:30 Cyclobenzaprine HCl 10 mg TID PO 07/26/24 14:00 07/31/24 05:59 10 MG Sodium Chloride 10 ml QSHIFT@10,22 IV 07/26/24 10:00 07/31/24 08:54 10 ML Laboratory Results Laboratory Tests 07/30/24 06:02 Urinalysis Test 07/26/24 16:00 Urine Color Yellow (Yellow) Urine Clarity Turbid (Clear) H Urine pH 8.5 (5.0-9.0) Urine Specific [place] 1.015 (1.001-1.035) Urine Protein 3+ (Negative) H Urine Ketones Negative (Negative) Urine Blood Negative /uL (Negative) Urine Nitrite Negative (Negative) Urine Bilirubin Negative (Negative) Urine Urobilinogen Normal mg/dL (Negative) Urine Leukocyte Esterase Negative /uL (Negative) Urine RBC 7 /hpf (0 - 3) Urine Microscopic WBC 5 /HPF (0-3) H Urine Squamous Epithelial Cells Few /hpf (<5) Urine Bacteria Few /hpf (None Seen) H Urine Hyaline Casts Few /lpf (0 - 2) Urine Glucose 2+ mg/dL (Normal) H Microbiology Microbiology Date/Time Source Procedure Growth Status 07/24/24 09:20 Other Gram Stain - Final Complete 07/24/24 09:20 Other Anaerobic Culture - Final Complete 07/24/24 09:20 Other Aerobic Culture - Final Complete 07/13/24 11:26 Blood Blood Culture - Final NO GROWTH AFTER 5 DAYS OF INCUBATION. Complete Labs and/or images reviewed: Labs reviewed by me, Image(s) reviewed by me Assessment/Plan Assessment/Plan Chronic pain syndrome Right hip pain: Hip x-ray negative Acute osteomyelitis L4-5 by MRI L-spine: Consult by ID Dr. Jack Cronin appreciated, placed on vancomycin and meropenem Status post laminectomy and foraminectomy at multiple levels of the lumbar spine by Dr. Villafana on 07/24/2024 ESRD on hemodialysis by Dr. Byrd Accelerated hypertension Acute generalized Weakness Anemia of chronic disease Coronary artery disease status post stents x3 Plavix Acute on chronic CHF exacerbation ejection fraction 35 percent Diabetes History of seizures on gabapentin Hypertension Hyperlipidemia Obesity Chronic current smoker counseling Cardiology Dr. Cooper cleared for spine surgery Blood-tinged emesis: DC aspirin, start pantoprazole [address] Villafana advised no blood thinners for two weeks if possible PICC line ordered Time spent 55 minutes Advanced care planning time 20 minutes Patient is full code PCP Scott Wade Previous hospital stay 04/15/24 to 05-02-24 Spoke to patient's five Marycruz [phone] one and advised the current diagnosis management Physical therapy ordered Placed on muscle relaxant Flexeril per ortho recommendation Patient and his refused long-term facility placement for IV antibiotics Patient was discharged home on home health for IV antibiotics on 07/30/2024 community services coordinator working on it Plan discussed with: Patient My Orders Orders - SHARMIN AN MD Procedure Category Date Status Time Vancomycin,Random LAB 08/01/24 Verified 05:00 Date of Service: July 31, 2024 Billing Provider: SHARMIN AN MD Common Visit Codes: [id number] INP/OBS CARE(HIGH) SHARMIN AN MD July 31, 2024 10:02
[2024-07-31] MEDS ORDERED: EPOETIN ALFA-EPBX 4,000 UNIT/ML VIAL SC ONE (21:00)
--- NOTE | 2024-08-01 07:29 | RESUS ---
CODE ASSIST ASSESSSMENT Initial Information Code Assist Date: July 31, 2024 Code Assist Time: 19:30 Location of Arrest: ICU ([facility]) Room # 291B Provider Name MONIQUE Time Notified: 19:30 Time PMD returned call: 19:30 Situation Staff concerned/worried, speci: Other (FALL) Situation comment: PT STATES HE FELL DIZZY AND SLIPPED TO THE FLOOR, NO INJURY. Background Background: 59 year old male HANG presents to the ED with chief complaint of right hip pain. Patient reports that went heading to the kitchen earlier today, he suddenly felt severe right hip pain, making his leg give out a bit. Patient relays that he did not trip or fall recently. Patient denies any chest pain, SOB, numbness, weakness, or tingling of extremities. Assessment Temperature (Fahrenheit): 98.4 Blood Pressure Systolic: 144 Blood Pressure Diastolic: 62 Respiratory Rate: 16 O2 Sat by Pulse Oximetry: 93 Recommendations/Interventions Procedures: Accu check Outcome Outcome: Problem Resolved Team Members Team Members AMY ARNOLD RN , CALVIN RN, OPAL LEATHER CRAFTSMAN, MALU DWYER, AMY BELLAMY August 01, 2024 07:29
== END 2024-07-31 21:27 | disposition home health service (06) | DRG 628 ==
LOC: ER 16:33 → EDBD 16:33 → OVERFLOW 23:42 → WEST WING 07-12 04:41 → TELE-WESTW 07-24 11:23
PROVIDERS: ADMIT Family Medicine; ATTEND Family Medicine
PROC: 5A1D70Z Performance of Urinary Filtration, Intermittent, Less than 6 Hours Per Day (ICD-10-PCS; 2024-07-12)
PROC: 5A1D70Z Performance of Urinary Filtration, Intermittent, Less than 6 Hours Per Day (ICD-10-PCS; 2024-07-14)
PROC: 5A1D70Z Performance of Urinary Filtration, Intermittent, Less than 6 Hours Per Day (ICD-10-PCS; 2024-07-17)
PROC: 5A1D70Z Performance of Urinary Filtration, Intermittent, Less than 6 Hours Per Day (ICD-10-PCS; 2024-07-19)
PROC: 5A1D70Z Performance of Urinary Filtration, Intermittent, Less than 6 Hours Per Day (ICD-10-PCS; 2024-07-21)
PROC: 5A1D70Z Performance of Urinary Filtration, Intermittent, Less than 6 Hours Per Day (ICD-10-PCS; 2024-07-23)
PROC: 0QB00ZZ Excision of Lumbar Vertebra, Open Approach (ICD-10-PCS; 2024-07-24)
PROC: 00NY0ZZ Release Lumbar Spinal Cord, Open Approach (ICD-10-PCS; 2024-07-24)
PROC: 01NR0ZZ Release Sacral Nerve, Open Approach (ICD-10-PCS; 2024-07-24)
PROC: 4A10X4Z Monitoring of Central Nervous Electrical Activity, External Approach (ICD-10-PCS; 2024-07-24)
PROC: 01NB0ZZ Release Lumbar Nerve, Open Approach (ICD-10-PCS; principal; 2024-07-24 08:06)
PROC: 5A1D70Z Performance of Urinary Filtration, Intermittent, Less than 6 Hours Per Day (ICD-10-PCS; 2024-07-25)
PROC: 02HV33Z Insertion of Infusion Device into Superior Vena Cava, Percutaneous Approach (ICD-10-PCS; 2024-07-26)
PROC: B548ZZA Ultrasonography of Superior Vena Cava, Guidance (ICD-10-PCS; 2024-07-26)
PROC: 5A1D70Z Performance of Urinary Filtration, Intermittent, Less than 6 Hours Per Day (ICD-10-PCS; 2024-07-26)
PROC: 5A1D70Z Performance of Urinary Filtration, Intermittent, Less than 6 Hours Per Day (ICD-10-PCS; 2024-07-28)
PROC: 5A1D70Z Performance of Urinary Filtration, Intermittent, Less than 6 Hours Per Day (ICD-10-PCS; 2024-07-31)
DX: E11.69 Type 2 diabetes mellitus with other specified complication (principal); I50.23 Acute on chronic systolic (congestive) heart failure; J96.01 Acute respiratory failure with hypoxia; M46.26 Osteomyelitis of vertebra, lumbar region; I13.2 Hypertensive heart and chronic kidney disease with heart failure and with stage 5 chronic kidney disease, or end stage renal disease; I42.0 Dilated cardiomyopathy; M46.46 Discitis, unspecified, lumbar region; N18.6 End stage renal disease; I25.10 Atherosclerotic heart disease of native coronary artery without angina pectoris; E11.22 Type 2 diabetes mellitus with diabetic chronic kidney disease; E11.40 Type 2 diabetes mellitus with diabetic neuropathy, unspecified; J44.9 Chronic obstructive pulmonary disease, unspecified; G89.4 Chronic pain syndrome; F17.210 Nicotine dependence, cigarettes, uncomplicated; D63.1 Anemia in chronic kidney disease; E66.9 Obesity, unspecified; M25.551 Pain in right hip; R56.9 Unspecified convulsions; R26.2 Difficulty in walking, not elsewhere classified; E78.5 Hyperlipidemia, unspecified; Z88.0 Allergy status to penicillin; Z88.7 Allergy status to serum and vaccine; Z79.891 Long term (current) use of opiate analgesic; Z79.1 Long term (current) use of non-steroidal anti-inflammatories (NSAID); Z79.899 Other long term (current) drug therapy; Z79.4 Long term (current) use of insulin; Z79.82 Long term (current) use of aspirin; Z95.1 Presence of aortocoronary bypass graft; Z90.49 Acquired absence of other specified parts of digestive tract; Z99.2 Dependence on renal dialysis; Z83.3 Family history of diabetes mellitus; Z82.49 Family history of ischemic heart disease and other diseases of the circulatory system; Z68.28 Body mass index [BMI] 28.0-28.9, adult; Z71.6 Tobacco abuse counseling; Z95.5 Presence of coronary angioplasty implant and graft
CPT/HCPCS: 36415; 36569; 70450; 71045; 72100; 72131; 72148; 73020; 73502; 76000; 76937; 80048; 80053; 80202; 81001; 82565; 82728; 82962; 83540; 83550; 84100; 84484; 85025; 85610; 85652; 85730; 86141; 86850; 86900; 86901; 87040; 87070; 87075; 87081; 87205; 87340; 90935; 93005; 94640; 96374; 96375; 97110; 97116; 97163; 97530; A4344; G0378; J0330; J1100; J1642; J1956; J2185; J2250; J2405; J2470; J2704

== ENCOUNTER 2024-08-14 03:44 | Inpatient (IN) | payer MEDICARE, OTHER ==
[~2024-08-14] VITALS: Ht 188 cm; Wt 98.0 kg
[~2024-08-14 03:44] MED LIST changes: +ALBUAER3 IN; +COLC1CAP3 PO; +CYCL-837 PO; -HYDR-4902 PO; +HYDR2TAB58 PO; -INSU1INJ19 SC; +IPRA0.00 IN; -IRBE300T79 PO; +LOSA100T14 PO; -METO1TAB9 PO; -METO200T42 PO; -ONDA-155 PO; +PATI1POW PO; -PRED20TA2 PO; -SODI10PA PO; -SODI5PAK PO
--- NOTE | 2024-08-14 07:02 | ED.PDOC ---
Musculoskeletal HPI Comments 59 y/o M,WITH PMHx of CAD, COPD, CHF, ESRD, HTN, and pseudo seizures presents to the ED for CC of lower extremity. Patient states, he has been experiencing right hip pain that radiates to his right foot onset, [id number]. Patient reports, that he had spine surgery at [facility] on 08/02/24; endorses during his stay suffering a f all where he hit his head and his right hip. Patient comments, that since procedure he has suffered x2 falls one at home and one at [facility]. Patient endorses, being seen at [facility] and scans coming back unremarkable. Patient denies headache, vision changes, nausea, vomiting, ecchymosis, or lacerations. No other symptoms or modifying factors present at this time. Chief Complaint: Lower Extremity Time Seen by MD: 06:40 Primary Care Provider: UNKNOWN Reviewed Notes: Nurses Notes, Medications, Allergies Allergies: Coded Allergies: Penicillins (Verified Allergy, Unknown, 09/19/23) Tetanus Toxoid (Verified Allergy, Unknown, 09/19/23) Home Meds Active Scripts Cyclobenzaprine Hcl (Cyclobenzaprine Hcl) 5 Mg Tab, 1 TAB PO TID PRN, #30 TAB Prov:SHARMIN AN MD 07/30/24 Hydromorphone Hcl (Dilaudid) 2 Mg Tab, 1 TAB PO TID PRN, #40 TAB Prov:SHARMIN AN MD 07/30/24 Clopidogrel Bisulfate (CLOPIDOGREL) 75 Mg Tab, 75 MG PO DAILY for 30 Days, #30 TAB Prov:LEÓN COLLINS MD 08/16/23 Reported Medications Patiromer Sorbitex Calcium (Veltassa) 8.4 Gm Pow, 1 PKT PO DAILY 07/12/24 Colchicine (Mitigare) 0.6 Mg Cap, 0.6 MG PO PRN for for gout, CAP 07/12/24 Albuterol Sulfate (VENTOLIN MDI) 90 Mcg Ih, 2 PUFF IN Q6HPRN PRN for wheezing, INH 07/12/24 Losartan Potassium (Cozaar) 100 Mg Tab, 300 MG PO DAILY, TAB 07/12/24 Ipratropium-Albuterol (Ipratropium Show Low/Albut) 1 Jacob Jacob, 1 JACOB IN QIDPRN PRN for SHORTNESS OF BREATH, ML 07/12/24 Colchicine (Colchicine) Pow, 0.6 MG PO Q12HR for 30 Days, MG 04/17/24 Clonidine Hydrochloride (Clonidine Hcl) 0.1 Mg Tab, 1 TAB PO PRN for SBP>160 04/17/24 Furosemide (Lasix) 40 Mg Tab, 40 MG PO DAILY, TAB 03/04/24 Amlodipine Besylate (NORVASC TABLET) 5 Mg Tb, 2 TAB PO DAILY, #30 TAB 5 Refills 03/04/24 Isosorbide Mononitrate (Isosorbide Mononitrate Er) 30 Mg Tab, 60 MG PO DAILY for CAD 09/19/23 Calcium Acetate (Phosphate Bin (Calcium Acetate) 667 Mg Cap, 667 MG PO TIDWM for DIALYSIS, MG 09/19/23 Atorvastatin Calcium (ATORVASTATIN CALCIUM) 40 Mg Tab, 1 TAB PO DAILY for HIGH CHOLESTEROL, #30 TAB 5 Refills 09/19/23 Obwjhczjbw-Eugnvlaqqzjrjq-Uarv (Breztri Aerosphere 160-9-4.8 Mcg/Act) 1 Aer Aer, 1 AER IN BID for COPD, AER 09/19/23 Albuterol Sulfate (Ventolin) 2.5 Mg/3 Ml Nb, 2.5 MG NEB Q4HP PRN for SHORTNESS OF BREATH, INH 09/19/23 Ranolazine (Ranolazine ER) 500 Mg Tab, 500 MG PO BID for CAD, TAB 09/19/23 Diazepam (VALIUM TABLET) 5 Mg Tb, 2 TAB PO PRN PRN for onset seizure, TAB 08/14/23 Hydralazine Hcl (Hydralazine Hcl) 100 Mg Tab, 1 TAB PO TID, #90 TAB 5 Refills 08/14/23 Gabapentin (Gabapentin) 100 Mg Cap, 2 CAP PO TID PRN for onset seizure , #90 CAP 2 Refills Take with diazepam. 08/14/23 Pantoprazole Sodium Sesquihydr (Protonix) 40 Mg Tab, 40 MG PO QAM, #30 TAB 08/14/23 Aspirin (Aspir-81) 81 Mg Tab, 1 TAB PO QAM, #30 TAB 5 Refills 08/14/23 Allopurinol (ZYLOPRIM TABLET) 100 Mg Tb, 1 TAB PO QAM, #30 TAB 5 Refills 08/14/23 Information Source: Patient Mode of Arrival: Wheelchair Location: Right Extremity Location: Hip Timing: Weeks Prehospital treatment: None Severity: Moderate Able to Move Extremity: No Bear Weight: No Pain: Moderate Mechanism: Other (FALL) Circumstances: Fall Onset of Symptoms: After Trauma Symptoms: Pain DVT Risk Factors: NONE Last Tetanus: Unknown Associated signs and symptoms: Hip pain Past Medical History PAST MEDICAL HISTORY: CAD, CHF, COPD, ESRD, HTN, Seizures Surgical History: Appendectomy, CABG, Cholecystectomy, PTCA Family History Family History: Reviewed,noncontributory to illness, No family hx of Cancer, No family hx of DM, No family hx of Heart [place], No family hx of HTN, No family hx ofKidney [place], No family hx of Liver [place], No family hx of Lung [place], No family hx of Stroke Social History Smoker: Cigarettes, Greater Than 1 Pack/Day Alcohol: Occasionally Drugs: Denies Drug Use Lives In: Home Constitutional: denies: chills, diaphoresis, fatigue, fever, malaise, sweats, weakness, others EENTM: denies: blurred vision, double vision, ear bleeding, ear discharge, ear drainage, ear pain, ear ringing, eye pain, eye redness, hearing loss, mouth pain, mouth swelling, nasal discharge, nose bleeding, nose congestion, nose pain, photophobia, tearing, throat pain, throat swelling, voice changes, others Respiratory: denies: cough, hemoptysis, orthopnea, SOB at rest, shortness of breath, SOB with excertion, stridor, wheezing, others Cardiovascular: denies: chest pain, dizzy spells, diaphoresis, Dyspnea on exertion, edema, irregular heart beat, left arm pain, lightheadedness, palpitations, PND, syncope, others Gastrointestinal: denies: abdomen distended, abdominal pain, blood streaked bowels, constipated, diarrhea, dysphagia, difficulty swallowing, hematemesis, melena, nausea, poor appetite, poor fluid intake, rectal bleeding, rectal pain, vomiting, others Genitourinary: denies: burning, dysuria, flank pain, frequency, hematuria, incontinence, penile discharge, penile sore, pain, testicle pain, testicle swelling, urgency, others Neurological: denies: dizziness, fainting, headache, left sided numbness, left sided weakness, numbness, paresthesia, pre-existing deficit, right sided numbness, right sided weakness, seizure, speech problems, tingling, tremors, weakness, others Musculoskeletal: reports: others (RIGHT HIP PAIN); denies: back pain, gout, joint pain, joint swelling, muscle pain, muscle stiffness, neck pain Integumetry: denies: bruises, change in color, change in hair/nails, dryness, laceration, lesions, lumps, rash, wounds, others Allergic/Immunocompromised: denies: Difficulty Healing, Frequent Infections, Hives, Itching, others Hematologic/Lymphatic: denies: anemia, blood clots, easy bleeding, easy bruising, swollen glands, others Endocrine: denies: excessive hunger, excessive sweating, excessive thirst, excessive urination, flushing, intolerance to cold, intolerance to heat, unexplained weight gain, unexplained weight loss, others Psychiatric: denies: anxiety, bipolar disorder, depression, hopeless, panic disorder, schizophrenia, sleepless, suicidal, others All Other Systems: Reviewed and Negative Physical Exam General Appearance: Mild Distress HEENT: Pharynx Normal Neck: Normal Inspection Respiratory: No Respiratory Distress Cardiovascular: No Edema Breast Exam: Deferred Gastrointestinal: Non Tender Genitalia: Deferred Pelvic: Deferred Rectal: Deferred Extremities: Tender (tenderness to right femur) Neurologic: Normal Affect Cerebellar Function: NOT DONE Reflexes: NOT DONE Skin: Normal Color, Other (picc line to RUE, ) Lymphatic: NOT DONE Was a procedure done? Was a procedure done?: No Differential Diagnosis EXT Differential Diagnosis: Fracture, Sprain, Dislocation, Contusion, Strain X-Ray, Labs, Meds, VS Vital Signs Date Time Temp Pulse Resp B/P (MAP) Pulse Ox O2 Delivery O2 Flow Rate FiO2 08/14/24 03:50 97.6 107 18 176/74 (108) 96 97.6 Lab Test 08/14/24 07:13 Range/Units White Blood Count 4.5 4.4-10.8 10^3/uL Red Blood Count 3.39 L 4.5-5.90 10^6/uL Hemoglobin 10.6 L 13.5-17.5 g/dL Hematocrit 31.7 L 41.0-53.0 % Mean Corpuscular Volume 93.5 80.0-100.0 fL Mean Corpuscular Hemoglobin 31.1 28.0-32.0 pg Mean Corpuscular Hemoglobin Concent 33.3 32.0-36.0 g/dL Red Cell Distribution Width 17.9 H 11.8-14.3 % Platelet Count 149 140-450 10^3/uL Mean Platelet Volume 7.3 6.9-10.8 fL Neutrophils (%) (Auto) 57.9 37.0-80.0 % Lymphocytes (%) (Auto) 15.9 10.0-50.0 % Monocytes (%) (Auto) 16.8 H 0.0-12.0 % Eosinophils (%) (Auto) 8.1 H 0.0-7.0 % Basophils (%) (Auto) 1.3 0.0-2.0 % Neutrophils # (Auto) 2.6 1.6-8.6 10 ^3/uL Lymphocytes # (Auto) 0.7 0.4-5.4 10 ^3/uL Monocytes # (Auto) 0.8 0-1.3 10 ^3/uL Eosinophils # (Auto) 0.4 0-0.8 10 ^3/uL Basophils # (Auto) 0.1 0-0.2 10 ^3/uL Nucleated Red Blood Cells 0.1 % Sodium Level 139 136-145 mmol/L Potassium Level 6.1 *H 3.5-5.1 mmol/L Chloride Level 102 98-107 mmol/L Carbon Dioxide Level 24 20-31 mmol/L Anion Gap 13 5-15 Blood Urea Nitrogen 52 H 9-23 mg/dL Creatinine 6.65 H 0.700-1.30 mg/dL Glomerular Filtration Rate Calc 9 >90 mL/min BUN/Creatinine Ratio 7.8 L 10.0-20.0 Serum Glucose 98 74-106 mg/dL Calcium Level 10.1 8.7-10.4 mg/dL Troponin I High Sensitivity 125 *H </=54 ng/L [address] [address] Ph: [phone] DIAGNOSTIC IMAGING Diagnostic Imaging Report : [id number] Signed PATIENT: CARLOS KING ACCT: [id number] UNIT: [id number] : 1965 LOC: ER ROOM / BED: / AGE / SEX: 59 / M ADM STATUS: REG ER SERVICE [id number] ORDERING PHYSICIAN: NIA RODRIGUEZ MD PROCEDURE(s): CXRP - CHEST PORTABLE REASON: chest pain ORDER NUMBER(s): [id number], ACCESSION NUMBER(s): [id number] EXAM: XR Chest, 1 View CLINICAL INDICATION: chest pain TECHNIQUE: Frontal view of the chest. COMPARISON: XY CHEST PORTABLE on DOS: 07/24/24, XY CHEST PORTABLE on DOS: 07/19/24, XY CHEST PORTABLE on DOS: 05/02/24, XY CHEST XRAY 1 VIEW on DOS: 04/15/24, XY CHEST XRAY 1 VIEW on DOS: 03/10/24 FINDINGS: LUNGS AND PLEURAL SPACES: Left basilar atelectasis or pneumonia. No pneumothorax. HEART: Unremarkable. No cardiomegaly. MEDIASTINUM: Unremarkable. Normal mediastinal contour. BONES/JOINTS: Unremarkable. No acute fracture. OTHER FINDINGS: . IMPRESSION: Left basilar atelectasis or pneumonia. ATED BY: KADE PHILLIPS MD DICTATED DATE/TIME: 08/14/24712 SIGNED BY: KADE PHILLIPS MD SIGNED DATE/TIME: 08/14/24712 CC: Time of 1ST Reevaluation: 07:20 Reevaluation 1ST: Unchanged Patient Education/Counseling: Diagnosis, Treatment Family Education/Counseling: Diagnosis, Treatment Departure 1 Departure Time of Disposition: 08:02 (Patient is not septic. Unlikely pneumonia and more likely atelectasis. Patient with uncontrolled back pain and general weakness. Patient is already on meropenam and vancomycin. Patient is due for dialysis today. Will admit for further workup and expert consultation. ) Impression: Primary Impression: Hyperkalemia Additional Impression: Intractable back pain Disposition: 09 ADMITTED INPATIENT Admit to: Tele Condition: Guarded Critical Care Note Critical Care Time?: Yes Critical care comment: Hyperkalemia Authorized and Performed by: Nia Rodriguez MD Total critical care time: Approximately 34 minutes Due to a high probability of clinically significant, life threatening deterioration, the patient required my highest level of preparedness to intervene emergently and I personally spent this critical care time directly and personally managing the patient. This critical care time included obtaining a history; examining the patient; pulse oximetry; ordering and review of studies; arranging urgent treatment with development of a management plan; evaluation of patient's response to treatment; frequent reassessment; and, discussions with other providers. This critical care time was performed to assess and manage the high probability of imminent, life-threatening deterioration that could result in multi-organ failure. It was exclusive of separately billable procedures and treating other patients and teaching time. Please see my other sections and the rest of the note for further information on patient assessment and treatment. Stability Stability form required: No Heart Score Heart Score: Heart Score Response (Comments) Value History N/A 0 EKG N/A 0 Age N/A 0 Risk Factors N/A 0 Troponin N/A 0 Total 0 I personally scribed for NIA RODRIGUEZ MD ([email or web address]) on 08/14/24 at 07:02. Electronically submitted by Billie Castrejon ([email or web address]). I personally scribed for NIA RODRIGUEZ MD ([email or web address]) on 08/14/24 at 07:28. Electronically submitted by Billie Castrejon ([email or web address]). NIA RODRIGUEZ MD Aug 14, 2024 07:02
--- NOTE | 2024-08-14 07:15 | DVH ---
EXAM: XR Chest, 1 View CLINICAL INDICATION: chest pain TECHNIQUE: Frontal view of the chest. COMPARISON: XY CHEST PORTABLE on DOS: 07/24/24, XY CHEST PORTABLE on DOS: 07/19/24, XY CHEST PORTABLE on DOS: 05/02/24, XY CHEST XRAY 1 VIEW on DOS: 04/15/24, XY CHEST XRAY 1 VIEW on DOS: 03/10/24 FINDINGS: LUNGS AND PLEURAL SPACES: Left basilar atelectasis or pneumonia. No pneumothorax. HEART: Unremarkable. No cardiomegaly. MEDIASTINUM: Unremarkable. Normal mediastinal contour. BONES/JOINTS: Unremarkable. No acute fracture. OTHER FINDINGS: . IMPRESSION: Left basilar atelectasis or pneumonia.
[2024-08-14 07:28] LABS: Basophils # (auto) 0.1 10 ^3/uL (0-0.2); Basophils % (auto) 1.3 % (0.0-2.0); Eosinophils # (auto) 0.4 10 ^3/uL (0-0.8); Eosinophils % (auto) 8.1 % (0.0-7.0); Hematocrit 31.7 % (41.0-53.0); Hemoglobin 10.6 g/dL (13.5-17.5); Lymphocytes # (auto) 0.7 10 ^3/uL (0.4-5.4); Lymphocytes % (auto) 15.9 % (10.0-50.0); Mean Corpuscular Hemoglobin 31.1 pg (28.0-32.0); Mean Corpuscular Hgb Conc. 33.3 g/dL (32.0-36.0); Mean Corpuscular Volume 93.5 fL (80.0-100.0); Monocytes # (auto) 0.8 10 ^3/uL (0-1.3); Monocytes % (auto) 16.8 % (0.0-12.0); Neutrophils # (auto) 2.6 10 ^3/uL (1.6-8.6); Neutrophils % (auto) 57.9 % (37.0-80.0); Nucleated Red Blood Cells % 0.1 %; Platelet Count (auto) 149 10^3/uL (140-450); Red Blood Cells 3.39 10^6/uL (4.5-5.90); Red Cell Distribution Width 17.9 % (11.8-14.3); White Blood Cell 4.5 10^3/uL (4.4-10.8)
[2024-08-14 07:36] LABS: Chloride 102 mmol/L (98-107); Sodium 139 mmol/L (136-145)
[2024-08-14 07:37] LABS: Anion Gap 13 (5-15); Carbon Dioxide 24 mmol/L (20-31)
[2024-08-14 07:38] LABS: Calcium 10.1 mg/dL (8.7-10.4)
[2024-08-14 07:42] LABS: Glucose 98 mg/dL (74-106)
[2024-08-14 07:43] LABS: Blood Urea Nitrogen 52 mg/dL (9-23)
[2024-08-14 07:44] LABS: BUN/Creatinine Ratio 7.8 (10.0-20.0); Potassium 6.1 mmol/L (3.5-5.1)
[2024-08-14 08:22] VITALS: PULSE 91; RESP 16; O2SAT 98
[2024-08-14] MEDS: KETAMINE 50mg/ML 10ml Vial (500mg/10ml) IV ONE (09:16)
[2024-08-14] MEDS: InsuLIN REG 1unit/0.01ml Soln (100units/ml) IV ONE (09:21)
[2024-08-14] MEDS: CALCIUM GLUC 1,000mg/50ml-NS 50 ML IV SCH (09:24)
[2024-08-14] MEDS: DEXTROSE (50%) 50ML SYRG IV ONE (09:25)
[2024-08-14] MEDS: SODIUM BICARB 8.4% 50Meq/50ml SYR Vial IV ONE (09:25)
[2024-08-14] MEDS: ALBUTEROL SULF 2.5 MG/0.5ML(0.5%) NEB SOLN NEB ONE (09:40)
[2024-08-14] MEDS ORDERED: DOCUSATE SOD 100 MG CAP PO PRN (10:00)
[2024-08-14] MEDS ORDERED: ACETAMINOPHEN 325 MG TAB PO PRN (10:00)
--- NOTE | 2024-08-14 10:34 | DVHHP2 ---
History of Present Illness Reason for Visit: right hip pain History of Present Illness Mikhali Mckee is a 59-year-old male with past medical history of ESRD on HD, hypertension, COPD, and CAD, who came in with complaints of right hip pain. Patient was recently admitted here and underwent spine surgery due to an infection and abscess. He states after his surgery he fell here and injured his right hip. He came to the hospital today due to an increase in pain. He had previously gone to [facility] for the hip pain. Images were completed that showed no abnormalities and he was discharged. Patient was discharged home with home a Picc line for daily Meropenem infusions and Vancomycin 3/week with dialysis, will continue here at the hospital. Past Surgical History: Appendectomy, Cholecystectomy, Other (PTCA-2 cardiac stens, spine surgery 07/24/2024) Smoke: No ALCOHOL: none Drugs: None Lives: with Family Domestic Violence: Neg Review of Systems Constitutional: No: Fever, Chills, Sweats, Weakness, Malaise, Other Eyes: No: Pain, Vision change, Conjunctivae inflammation, Eyelid inflammation, Other, Redness ENT: No: Ear pain, Ear discharge, Nose pain, Nose discharge, Nose congestion, Mouth pain, Mouth swelling, Throat pain, Throat swelling, Other Respiratory: No: Cough, Dry, Shortness of breath, SOB with excertion, Wheezing, Hemoptysis, Pleuritic Pain, Sputum, Wheezing, Other Cardiovascular: No: Chest Pain, Palpitations, Orthopnea, Paroxysmal Noc. Dyspnea, Edema, Lt Headedness, Other Gastrointestinal: No: Nausea, Vomiting, Abdominal Pain, Diarrhea, Constipation, Melena, Hematochezia, Other Genitourinary: No Dysuria, No Frequency, No Incontinence, No Hematuria, No Rete ntion, No Other Musculoskeletal: leg pain (right hip); No: other, neck pain, shoulder pain, arm pain, back pain, hand pain, foot pain Skin: No: Rash, Lesions, Jaundice, Bruising, Other Neurological: No: Weakness, Numbness, Incoordination, Change in speech, Confusion, Seizures, Other Allergies: Coded Allergies: Penicillins (Verified Allergy, Unknown, 09/19/23) Tetanus Toxoid (Verified Allergy, Unknown, 09/19/23) Exam Vital Signs Vital Signs Date Time Temp Pulse Resp B/P (MAP) Pulse Ox O2 Delivery O2 Flow Rate FiO2 08/14/24 09:41 95 Room Air* 0 21 08/14/24 09:41 20 08/14/24 08:22 91 08/14/24 08:04 97.6 183/89 (120) 97.6 General Appearance: Alert, Oriented X3, Cooperative, mild distress HEENT: Atraumatic, PERRLA, Mucous membr. moist/pink Respiratory: Clear to auscultation, Normal air movement Cardiovascular: Regular rate, Normal S1, Normal S2, No murmurs Abdominal: Normal bowel sounds, Soft, No tenderness, No hepatospenomegaly Extremities: No clubbing, No cyanosis, No edema, Normal pulses, No tenderness/swelling Skin: No rashes, No breakdown, No significant lesion Neuro: Normal gait, Normal speech, Strength at 5/5 X4 ext Psych/Mental Status: Mental status NL, Mood NL Labs/Xrays Labs Test 08/14/24 07:13 Range/Units White Blood Count 4.5 4.4-10.8 10^3/uL Red Blood Count 3.39 L 4.5-5.90 10^6/uL Hemoglobin 10.6 L 13.5-17.5 g/dL Hematocrit 31.7 L 41.0-53.0 % Mean Corpuscular Volume 93.5 80.0-100.0 fL Mean Corpuscular Hemoglobin 31.1 28.0-32.0 pg Mean Corpuscular Hemoglobin Concent 33.3 32.0-36.0 g/dL Red Cell Distribution Width 17.9 H 11.8-14.3 % Platelet Count 149 140-450 10^3/uL Mean Platelet Volume 7.3 6.9-10.8 fL Neutrophils (%) (Auto) 57.9 37.0-80.0 % Lymphocytes (%) (Auto) 15.9 10.0-50.0 % Monocytes (%) (Auto) 16.8 H 0.0-12.0 % Eosinophils (%) (Auto) 8.1 H 0.0-7.0 % Basophils (%) (Auto) 1.3 0.0-2.0 % Neutrophils # (Auto) 2.6 1.6-8.6 10 ^3/uL Lymphocytes # (Auto) 0.7 0.4-5.4 10 ^3/uL Monocytes # (Auto) 0.8 0-1.3 10 ^3/uL Eosinophils # (Auto) 0.4 0-0.8 10 ^3/uL Basophils # (Auto) 0.1 0-0.2 10 ^3/uL Nucleated Red Blood Cells 0.1 % Sodium Level 139 136-145 mmol/L Potassium Level 6.1 *H 3.5-5.1 mmol/L Chloride Level 102 98-107 mmol/L Carbon Dioxide Level 24 20-31 mmol/L Anion Gap 13 5-15 Blood Urea Nitrogen 52 H 9-23 mg/dL Creatinine 6.65 H 0.700-1.30 mg/dL Glomerular Filtration Rate Calc 9 >90 mL/min BUN/Creatinine Ratio 7.8 L 10.0-20.0 Serum Glucose 98 74-106 mg/dL Calcium Level 10.1 8.7-10.4 mg/dL Troponin I High Sensitivity 125 *H </=54 ng/L EXAM: XR Chest, 1 View FINDINGS: LUNGS AND PLEURAL SPACES: Left basilar atelectasis or pneumonia. No pneumothorax. HEART: Unremarkable. No cardiomegaly. MEDIASTINUM: Unremarkable. Normal mediastinal contour. BONES/JOINTS: Unremarkable. No acute fracture. OTHER FINDINGS: . IMPRESSION: Left basilar atelectasis or pneumonia. Assessment/Plan Assessment/Plan Assessment: Hyperkalemia, ESRD on HD, Osteomyelitis, COPD, CHF, Hypertension, Plan: Admit to Med-Surg, Nephrology consult, Consider surgical consult with Dr. Villafana to evaluate recent surgical wound, Wound care consult for surgical wound, Hyperkalemia protocol, Manage/Monitor electrolytes closely, Re-check potassium at noon, Continue IV antibiotics, Home medications reconciled, Plan discussed with: Patient My Orders Orders - MORGAN LINDSAY [employer] Procedure Category Date Status Time Admit ADMIT 08/14/24 Transmitted 10:00 Code Status CODE 08/14/24 Transmitted 10:00 Renal DIET 08/14/24 Transmitted Standard(2gna,3gk,Lopho) Lunch Sodium Chloride Lock PHA 08/14/24 Transmitted (Saline Lock Ns) 14:00 Hydrocodone-Acet PHA 08/14/24 Transmitted 5/325mg Tab (Greene 10:00 Ondansetron Hcl PHA 08/14/24 Transmitted (Zofran) 10:00 Docusate Sodium PHA 08/14/24 Transmitted Capsule (Colace 10:00 Fall Risk Precautions SEAN 08/14/[address] 10:00 Complete Blood Count LAB 08/15/24 Verified 04:00 Comprehensive LAB 08/15/24 Verified Metabolic Panel 04:00 Pt Request For Service PT 08/14/24 Logged 10:00 Condition: Serious SEAN 08/14/24 Transmitted 10:00 Acetaminophen Tablet PHA 08/14/24 Transmitted (Tylenol Tablet) 10:00 *Dr. Rochelle Finnegan -Da CONS 08/14/24 Transmitted Maty 10:00 Potassium LAB 08/14/24 Transmitted 12:00 Date of Service: Aug 14, 2024 Billing Provider: MORGAN LINDSAY Common Visit Codes: [id number] INP/OBS CARE (MOD) MORGAN LINDSAY Aug 14, 2024 10:34
[2024-08-14] MEDS: HYDROcodone-ACET 5/325MG TAB PO PRN (10:50)
[2024-08-14] MEDS: CLOPIDOGREL BISULFATE 75 MG TAB PO ONE (11:11)
[2024-08-14] MEDS: CALCIUM ACETATE 667 MG CAP PO SCH (11:12)
[2024-08-14] MEDS: ASPirin 81 mg TAB PO ONE (11:12)
[2024-08-14] MEDS: FUROSEMIDE 20 MG TAB PO ONE (11:13)
[2024-08-14] MEDS: ALLOPURINOL 100 MG TAB PO ONE (11:13)
[2024-08-14] MEDS: hydrALAZINE HCL 25 MG TAB PO ONE (11:14)
[2024-08-14] MEDS: SODIUM CHLOR 0.9% PF (SALINE LOCK) 10ML VIAL/SYR IV SCH (11:14)
[2024-08-14] MEDS: MEROPENEM 1GM IVPB 50 ML IV ONE (11:56)
--- NOTE | 2024-08-14 12:14 | DVHINCON2 ---
DATE OF CONSULTATION: 08/14/2024 CONSULTING PHYSICIAN: Dr. Enamorado. REASON FOR CONSULTATION: Management of dialysis. HISTORY OF PRESENT ILLNESS: The patient is a 59-year-old gentleman who was here in the hospital for almost 1 month until a couple of weeks ago. He was here treated for spinal abscess and underwent surgery and was discharged home. Apparently, after he went home, he fell there and injured his right hip. He is coming with right hip pain. In the Emergency Room, he was found to be hyperkalemic, so now he is being admitted and I am being consulted to handle his dialysis. His past medical history and other problems are well documented on his previous hospitalization, please refer to those records. PHYSICAL EXAMINATION: VITAL SIGNS: Blood pressure is 160/50, heart rate is 102, respirations 15, temperature 98. GENERAL: The patient is a tall gentleman who appears to be chronically ill, not in acute distress, alert and oriented x 3. HEENT: Unremarkable. Oral mucosa is pale and dry. NECK: There is no jugular venous distention. LUNGS: Show a few crackles at the bases. CARDIOVASCULAR: Regular rate with an S4 gallop. No pericardial rub. ABDOMEN: Soft, mildly distended. Bowel sounds are normal intensity and frequency. No organomegaly. No ascites. EXTREMITIES: Show no clubbing or cyanosis. There is trace edema in the ankles. LABORATORY FINDINGS: Sodium 139, potassium 6.1, bicarbonate 24, creatinine 6.6. Hemoglobin 10.6. ASSESSMENT AND PLAN: * Stable end-stage renal disease. * Hyperkalemia. * Right hip pain. * Recent treatment for spinal abscess. * History of hypertension. * Anemia of renal disease. The patient will be scheduled to have dialysis as soon as possible, use a low potassium bath and try to remove 3-3.5 liters of fluid. After that, he should continue with his outpatient antihypertensives, low-potassium diet, and pain control. Thank you for the consultation. MD JENNIFER Mobley/MELIA/AMBER TID: [id number] RECEIPT: [id number]
[2024-08-14] MEDS ORDERED: PATIENTS OWN MEDICATION (Hydralazine Hcl 1 TAB) PO SCH (14:00)
[2024-08-14] MEDS: hydrALAZINE HCL 25 MG TAB PO SCH (14:45)
[2024-08-14] MEDS ORDERED: VANCOMYCIN PER PHARMACY 0 MG IV SCH (15:30)
[2024-08-14] MEDS ORDERED: VANCOMYCIN 1.5GM/300ML 300 ML IV ONE (17:00)
[2024-08-14 19:55] VITALS: PULSE 99; RESP 16; O2SAT 98
[2024-08-14 21:22] VITALS: BP 184/51; PULSE 102; RESP 18; TEMP 97.8; O2SAT 99
[2024-08-14] MEDS: [UNRECOGNIZED DRUG - OTHER] IN SCH (22:00)
[2024-08-14] MEDS: BUDESONIDE GLYCOPYRROLATE FORM IN SCH (22:00)
[2024-08-14] MEDS: RANOLAZINE ER 500 MG TAB PO SCH (22:40)
[2024-08-14] MEDS: ATORVASTATIN 20 MG TAB PO SCH (22:41)
[2024-08-15] VITALS (12 sets, daily range): BP systolic 115–196; BP diastolic 71–81; PULSE 75–109; RESP 16–20; TEMP 84.2–98.4; O2SAT 93–100
[2024-08-15] MEDS: MEROPENEM 1GM IVPB 50 ML IV SCH (00:04)
[2024-08-15] MEDS: ALBUTEROL SULF 2.5 MG/0.5ML(0.5%) NEB SOLN ONE (01:44)
[2024-08-15] MEDS ORDERED: ALBUTEROL SULF 2.5 MG/0.5ML(0.5%) NEB SOLN NEB PRN (01:45)
[2024-08-15] MEDS: ALLOPURINOL 100 MG TAB PO SCH (06:24)
[2024-08-15] MEDS: PANTOPRAZOLE 40 MG TAB PO SCH (06:24)
[2024-08-15] MEDS: ASPirin-EC 81 mg tab PO SCH (06:24)
[2024-08-15 07:43] LABS: Hematocrit 29.5 % (41.0-53.0); Hemoglobin 9.9 g/dL (13.5-17.5); Mean Corpuscular Hemoglobin 31.1 pg (28.0-32.0); Mean Corpuscular Hgb Conc. 33.6 g/dL (32.0-36.0); Mean Corpuscular Volume 92.7 fL (80.0-100.0); Platelet Count (auto) 113 10^3/uL (140-450); Red Blood Cells 3.19 10^6/uL (4.5-5.90); Red Cell Distribution Width 17.9 % (11.8-14.3); White Blood Cell 2.5 10^3/uL (4.4-10.8)
[2024-08-15 07:46] LABS: Band Neutrophils % (manual) 0; Basophils % (manual) 0 (0.0-2.0); Blast Cells 0; Myelocytes % 0; Promyelocytes % 0; Reactive Lymphocytes 0
[2024-08-15 08:03] LABS: Alanine Aminotransferase 15 U/L (7-40); Alkaline Phosphatase 92 U/L (46-116); Anion Gap 12 (5-15); BUN/Creatinine Ratio 6.9 (10.0-20.0); Calcium 9.8 mg/dL (8.7-10.4); Carbon Dioxide 29 mmol/L (20-31); Chloride 99 mmol/L (98-107); Glucose 99 mg/dL (74-106); Potassium 5.1 mmol/L (3.5-5.1); Sodium 140 mmol/L (136-145)
[2024-08-15 08:04] LABS: Blood Urea Nitrogen 34 mg/dL (9-23); Total Protein 6.2 g/dL (5.7-8.2)
[2024-08-15 08:05] LABS: Albumin 3.8 g/dL (3.2-4.8); Aspartate Aminotransferase 16 U/L (13-40)
[2024-08-15 08:06] LABS: Bilirubin, Total 0.3 mg/dL (0.2-1.0)
[2024-08-15] MEDS ORDERED: PATIENTS OWN MEDICATION (Atorvastatin Calcium 1 TAB) PO SCH (10:00)
[2024-08-15] MEDS ORDERED: ISOSORBIDE MONONITRATE 60 MG PO SCH (10:00)
[2024-08-15 10:48] LABS: Hepatitis B Surface Antibody Positive (Negative)
[2024-08-15 10:58] LABS: Hepatitis B Surface Antigen Negative (Negative)
[2024-08-15 11:19] LABS: Hepatitis A Ab IgM Negative
[2024-08-15 11:21] LABS: Hepatitis B Core IgM Negative (Negative); Hepatitis C Antibody Negative (Negative)
[2024-08-15 11:35] LABS: Eosinophils % (manual) 10 (0-7); Lymphocytes % (manual) 27 (10.0-50.0); Metamyelocytes % 2; Monocytes % (manual) 10 (0-12)
[2024-08-15 11:36] LABS: Platelet Estimate Decreased
--- NOTE | 2024-08-15 11:52 | DVHPN2 ---
Reviewed: Care Plan, H&P, Labs, Medications, Previous Orders, Radiology Changes from previous H/P or p: No Changes Eyes: No Pain, No Vision change, No Conjunctivae inflammation, No Eyelid inflammation, No Other, No Redness ENT: No Ear pain, No Ear discharge, No Nose pain, No Nose discharge, No Nose congestion, No Mouth pain, No Mouth swelling, No Throat pain, No Throat swelling, No Other Cardiovascular: No Chest Pain, No Palpitations, No Orthopnea, No Paroxysmal Noc. Dyspnea, No Edema, No Lt Headedness, No Other Respiratory: No Cough, No Dry, No Shortness of breath, No SOB with excertion, No Wheezing, No Hemoptysis, No Pleuritic Pain, No Sputum, No Other Gastrointestinal: No Nausea, No Vomiting, No Abdominal Pain, No Diarrhea, No Constipation, No Melena, No Hematochezia, No Other Genitourinary: No Dysuria, No Frequency, No Incontinence, No Hematuria, No Retention, No Other Musculoskeletal: No other, No neck pain, No shoulder pain, No arm pain, No back pain, No hand pain; leg pain (right hip); No foot pain Skin: No Rash, No Lesions, No Jaundice, No Bruising, No Other Objective Vitals Vital Signs Date Time Temp Pulse Resp B/P (MAP) Pulse Ox O2 Delivery O2 Flow Rate FiO2 08/15/24 08:47 97.7 92 20 174/81 (112) 99 97.7 08/15/24 08:00 Nasal Cannula* 4 36 Intake/Output Intake and Output 08/15/24 07:00 Intake Total 0 ml Balance 0 ml Intake Oral 0 ml Medications Current Medications Medications Dose Ordered Sig/Gerard Route Start Time Stop Time Status Last Admin Dose Admin Sodium Chloride 10 ml Q8HR IV 08/14/24 14:00 08/15/24 06:21 10 ML Acetaminophen/ Hydrocodone Bitart 1 tab Q4HP PRN PO 08/14/24 10:00 08/15/24 08:07 1 TAB Ondansetron HCl 4 mg Q4HP PRN IV 08/14/24 10:00 Docusate Sodium 100 mg BIDPRN PRN PO 08/14/24 10:00 Acetaminophen 650 mg Q6HP PRN PO 08/14/24 10:00 Allopurinol 100 mg QAM PO 08/15/24 07:00 08/15/24 06:24 100 MG Amlodipine Besylate 10 mg DAILY PO 08/15/24 10:00 Aspirin 81 mg QAM PO 08/15/24 07:00 08/15/24 06:24 81 MG Calcium Acetate 667 mg TIDWM PO 08/14/24 12:00 08/15/24 08:05 667 MG Clopidogrel Bisulfate 75 mg DAILY PO 08/15/24 10:00 Furosemide 40 mg DAILY PO 08/15/24 10:00 Pantoprazole Sodium 40 mg QAM PO 08/15/24 07:00 08/15/24 06:24 40 MG Ranolazine 500 mg BID PO 08/14/24 22:00 08/14/24 22:40 500 MG Patient Own Medication 1 tab DAILY PO 08/15/24 10:00 UNV Patient Own Medication 1 aer BID IN 08/14/24 22:00 Patient Own Medication 1 tab TID PO 08/14/24 14:00 UNV Patient Own Medication 60 mg DAILY PO 08/15/24 10:00 UNV Atorvastatin Calcium 40 mg HS PO 08/14/24 22:00 08/14/24 22:41 40 MG Hydralazine HCl 100 mg TID PO 08/14/24 14:00 08/15/24 06:23 100 MG Isosorbide Mononitrate 60 mg DAILY PO 08/15/24 10:00 Vancomycin HCl 0 ml @ 0 mls/hr UD IV 08/14/24 15:30 Meropenem 50 ml @ 17 mls/hr DAILY@1800 IV 08/15/24 18:00 08/15/24 00:04 17 MLS/HR Albuterol 2.5 mg Q6HPRN PRN NEB 08/15/24 01:45 Laboratory Results Laboratory Tests 08/15/24 06:54 Chemistry Test 08/15/24 06:54 Albumin 3.8 g/dL (3.2-4.8) Calcium Level 9.8 mg/dL (8.7-10.4) Total Protein 6.2 g/dL (5.7-8.2) LFT Test 08/15/24 06:54 Alanine Aminotransferase (ALT) 15 U/L (7-40) Alkaline Phosphatase 92 U/L (46-116) Aspartate Amino Transferase (AST) 16 U/L (13-40) Total Bilirubin 0.3 mg/dL (0.2-1.0) Labs and/or images reviewed: Labs reviewed by me, Image(s) reviewed by me Assessment/Plan Assessment/Plan Chronic pain syndrome Acute osteomyelitis L4-5 by MRI L-spine: appreciated, placed on vancomycin and meropenem Status post laminectomy and foraminectomy at multiple levels of the lumbar spine by Dr. Villafana on 07/24/2024 ESRD on hemodialysis by Dr. Byrd Accelerated hypertension Acute generalized Weakness Chronic Right hip pain x-rays negative at [facility] recently Anemia of chronic disease Coronary artery disease status post stents x3 Plavix Acute on chronic CHF exacerbation ejection fraction 35 percent Diabetes History of seizures on gabapentin Hypertension Hyperlipidemia Obesity Chronic current smoker counseling Possible left lower pneumonia continue vancomycin and Meropenem Time Spent 70 minutes Patient is full code Advanced care planning time 20 minutes Patient was discharged from this hospital on 07/30/2024 Plan discussed with: Patient Date of Service: Aug 15, 2024 Billing Provider: SHARMIN AN MD Common Visit Codes: [id number] CARE 30-74 MIN SHARMIN AN MD Aug 15, 2024 11:52
[2024-08-15] MEDS: ISOSORBIDE MONONITRATE ER 60 MG TAB PO SCH (11:55)
[2024-08-15] MEDS: FUROSEMIDE 40 MG TAB PO SCH (11:55)
[2024-08-15] MEDS: amLODIPine BESYLATE 5 MG TAB PO SCH (11:56)
[2024-08-15] MEDS: CLOPIDOGREL BISULFATE 75 MG TAB PO SCH (11:57)
[2024-08-15] MEDS: HYDROmorphone HCL 2 MG/ML VL/or syr IV SCH (13:20)
[2024-08-15] MEDS: cloNIDine HCL 0.1 MG TAB PO PRN (13:21)
--- NOTE | 2024-08-15 14:38 | DVH ---
EXAM: CT CT R HIP WITH OUT CONTRAST INDICATION: r/o hip fracture EXAM DATE: 08/15/2024 01:47 PM COMPARISON: None TECHNIQUE: Multiple axial CT images of the right hip were obtained using bone algorithm. Axial and co lenin reformatting was done. Bone and soft tissue windows were reviewed. Radiation Dose Information: CT Dose: CTDI volume is 16.22 mGy. Dose-length product is 605.55 mGy*cm Findings/Impression: There is no evidence of an acute fracture, dislocation, blastic, or lytic lesions. No radiopaque foreign bodies. Moderate atherosclerosis No joint effusion . Mild right hip superficial soft tissue edema. Severe degenerative changes at L4/S1.
[2024-08-15] MEDS: ONDANSETRON HCL 4 MG/2 ML VIAL IV PRN (15:14)
--- NOTE | 2024-08-15 15:54 | DVHPN2 ---
Progress Note - Dictate Date Seen: Aug 15, 2024 Has the PT tested + for MRSA If YES, has PT been informed?: No Medical Necessity Reason Pt with a Central, PICC or Fol: No Subjective No new complaints vital signs Vital Sign Date Time Temp Pulse Resp B/P (MAP) Pulse Ox O2 Delivery O2 Flow Rate FiO2 08/15/24 15:29 94 196/80 (118) 08/15/24 13:50 18 08/15/24 08:47 97.7 99 97.7 08/15/24 08:00 Nasal Cannula* 4 36 Total Intake and Output 08/14/24 08/14/24 08/15/24 14:59 22:59 06:59 Intake Total 0 ml Balance 0 ml medications Current Medications Medications Dose Ordered Sig/Gerard Route Start Time Stop Time Status Last Admin Dose Admin Sodium Chloride 10 ml Q8HR IV 08/14/24 14:00 08/15/24 15:20 10 ML Ondansetron HCl 4 mg Q4HP PRN IV 08/14/24 10:00 08/15/24 15:14 4 MG Docusate Sodium 100 mg BIDPRN PRN PO 08/14/24 10:00 Acetaminophen 650 mg Q6HP PRN PO 08/14/24 10:00 Allopurinol 100 mg QAM PO 08/15/24 07:00 08/15/24 06:24 100 MG Amlodipine Besylate 10 mg DAILY PO 08/15/24 10:00 08/15/24 11:56 10 MG Aspirin 81 mg QAM PO 08/15/24 07:00 08/15/24 06:24 81 MG Calcium Acetate 667 mg TIDWM PO 08/14/24 12:00 08/15/24 12:00 667 MG Clopidogrel Bisulfate 75 mg DAILY PO 08/15/24 10:00 08/15/24 11:57 75 MG Furosemide 40 mg DAILY PO 08/15/24 10:00 08/15/24 11:55 40 MG Pantoprazole Sodium 40 mg QAM PO 08/15/24 07:00 08/15/24 06:24 40 MG Ranolazine 500 mg BID PO 08/14/24 22:00 08/15/24 11:56 500 MG Patient Own Medication 1 tab DAILY PO 08/15/24 10:00 UNV Patient Own Medication 1 aer BID IN 08/14/24 22:00 Patient Own Medication 1 tab TID PO 08/14/24 14:00 UNV Patient Own Medication 60 mg DAILY PO 08/15/24 10:00 UNV Atorvastatin Calcium 40 mg HS PO 08/14/24 22:00 08/14/24 22:41 40 MG Hydralazine HCl 100 mg TID PO 08/14/24 14:00 08/15/24 15:21 100 MG Isosorbide Mononitrate 60 mg DAILY PO 08/15/24 10:00 08/15/24 11:55 60 MG Vancomycin HCl 0 ml @ 0 mls/hr UD IV 08/14/24 15:30 Meropenem 50 ml @ 17 mls/hr DAILY@1800 IV 08/15/24 18:00 08/15/24 00:04 17 MLS/HR Albuterol 2.5 mg Q6HPRN PRN NEB 08/15/24 01:45 Hydromorphone HCl 2 mg Q4HPRN IV 08/15/24 13:00 08/15/24 13:20 2 MG Clonidine HCl 0.2 mg Q6HP PRN PO 08/15/24 13:15 08/15/24 13:21 0.2 MG objective GENERAL: The patient is a tall gentleman who appears to be chronically ill, not in acute distress, alert and oriented x 3. HEENT: Unremarkable. Oral mucosa is pale and dry. NECK: There is no jugular venous distention. LUNGS: Show a few crackles at the bases. CARDIOVASCULAR: Regular rate with an S4 gallop. No pericardial rub. ABDOMEN: Soft, mildly distended. Bowel sounds are normal intensity and frequency. No organomegaly. No ascites. EXTREMITIES: Show no clubbing or cyanosis. There is trace edema in the ankles. laboratory and microbiology Laboratory Tests 08/15/24 06:54 Test 08/15/24 06:54 Range/Units Serum Glucose 99 74-106 mg/dL Problem List ASSESSMENT AND PLAN: * Stable end-stage renal disease. * Hyperkalemia resolved after HD yesterday * Right hip pain. * Recent treatment for spinal abscess. * History of hypertension. * Anemia of renal disease. Continue HD on TTS schedule DC planning Plan discussed with: IVORY Enciso MD Aug 15, 2024 15:54
[2024-08-15] MEDS: VANCOMYCIN 500mg/100mL 100 ML IV ONE (17:05)
[2024-08-16] VITALS (7 sets, daily range): BP systolic 136–201; BP diastolic 59–86; PULSE 81–104; RESP 16–19; TEMP 97.4–98.2; O2SAT 95–100
[2024-08-16] MEDS ORDERED: HYDR2TAB58 PO (08:34)
--- NOTE | 2024-08-16 08:38 | DVHPN2 ---
Reviewed: Care Plan, H&P, Labs, Medications, Previous Orders, Radiology Changes from previous H/P or p: No Changes Eyes: No Pain, No Vision change, No Conjunctivae inflammation, No Eyelid inflammation, No Other, No Redness ENT: No Ear pain, No Ear discharge, No Nose pain, No Nose discharge, No Nose congestion, No Mouth pain, No Mouth swelling, No Throat pain, No Throat swelling, No Other Cardiovascular: No Chest Pain, No Palpitations, No Orthopnea, No Paroxysmal Noc. Dyspnea, No Edema, No Lt Headedness, No Other Respiratory: No Cough, No Dry, No Shortness of breath, No SOB with excertion, No Wheezing, No Hemoptysis, No Pleuritic Pain, No Sputum, No Other Gastrointestinal: No Nausea, No Vomiting, No Abdominal Pain, No Diarrhea, No Constipation, No Melena, No Hematochezia, No Other Genitourinary: No Dysuria, No Frequency, No Incontinence, No Hematuria, No Retention, No Other Musculoskeletal: No other, No neck pain, No shoulder pain, No arm pain, No back pain, No hand pain; leg pain (right hip); No foot pain Skin: No Rash, No Lesions, No Jaundice, No Bruising, No Other Objective Vitals Vital Signs Date Time Temp Pulse Resp B/P (MAP) Pulse Ox O2 Delivery O2 Flow Rate FiO2 08/16/24 06:40 154/70 08/16/24 06:39 97 16 08/16/24 06:22 98 Nasal Cannula* 3 32 08/16/24 05:00 97.6 97.6 Intake/Output Intake and Output 08/16/24 07:00 Intake Total 1850 ml Output Total 250 ml Balance 1600 ml Intake Oral 1650 ml IV Total 200 ml Output Urine Total 250 ml # Voids 8 # Bowel Movements 1 Medications Current Medications Medications Dose Ordered Sig/Gerard Route Start Time Stop Time Status Last Admin Dose Admin Sodium Chloride 10 ml Q8HR IV 08/14/24 14:00 08/16/24 06:39 10 ML Ondansetron HCl 4 mg Q4HP PRN IV 08/14/24 10:00 08/16/24 05:56 4 MG Docusate Sodium 100 mg BIDPRN PRN PO 08/14/24 10:00 Acetaminophen 650 mg Q6HP PRN PO 08/14/24 10:00 Allopurinol 100 mg QAM PO 08/15/24 07:00 08/16/24 06:41 100 MG Amlodipine Besylate 10 mg DAILY PO 08/15/24 10:00 08/15/24 11:56 10 MG Aspirin 81 mg QAM PO 08/15/24 07:00 08/16/24 06:41 81 MG Calcium Acetate 667 mg TIDWM PO 08/14/24 12:00 08/15/24 18:48 667 MG Clopidogrel Bisulfate 75 mg DAILY PO 08/15/24 10:00 08/15/24 11:57 75 MG Furosemide 40 mg DAILY PO 08/15/24 10:00 08/15/24 11:55 40 MG Pantoprazole Sodium 40 mg QAM PO 08/15/24 07:00 08/16/24 06:40 40 MG Ranolazine 500 mg BID PO 08/14/24 22:00 08/15/24 21:38 500 MG Patient Own Medication 1 tab DAILY PO 08/15/24 10:00 UNV Patient Own Medication 1 aer BID IN 08/14/24 22:00 Patient Own Medication 1 tab TID PO 08/14/24 14:00 UNV Patient Own Medication 60 mg DAILY PO 08/15/24 10:00 UNV Atorvastatin Calcium 40 mg HS PO 08/14/24 22:00 08/15/24 21:38 40 MG Hydralazine HCl 100 mg TID PO 08/14/24 14:00 08/16/24 06:40 100 MG Isosorbide Mononitrate 60 mg DAILY PO 08/15/24 10:00 08/15/24 11:55 60 MG Vancomycin HCl 0 ml @ 0 mls/hr UD IV 08/14/24 15:30 Meropenem 50 ml @ 17 mls/hr DAILY@1800 IV 08/15/24 18:00 08/15/24 00:04 17 MLS/HR Albuterol 2.5 mg Q6HPRN PRN NEB 08/15/24 01:45 Hydromorphone HCl 2 mg Q4HPRN IV 08/15/24 13:00 08/16/24 06:39 2 MG Clonidine HCl 0.2 mg Q6HP PRN PO 08/15/24 13:15 08/16/24 01:30 0.2 MG Laboratory Results Laboratory Tests 08/15/24 06:54 08/16/24 05:39 Labs and/or images reviewed: Labs reviewed by me, Image(s) reviewed by me Assessment/Plan Assessment/Plan Right hip pain right hip x-ray done in [facility] negative CT right hip done here negative for any fracture dislocation Chronic pain syndrome Acute osteomyelitis L4-5 by MRI L-spine: on vancomycin and meropenem Status post laminectomy and foraminectomy at multiple levels of the lumbar spine by Dr. Villafana on 07/24/2024 ESRD on hemodialysis by Dr. Byrd Accelerated hypertension Acute generalized Weakness Chronic Right hip pain x-rays negative at [facility] recently Anemia of chronic disease Coronary artery disease status post stents x3 Plavix Acute on chronic CHF exacerbation ejection fraction 35 percent Diabetes History of seizures on gabapentin Hypertension Hyperlipidemia Obesity Chronic current smoker counseling Patient is being discharged home Spoke with the patient's Montserrat on the phone about the discharge plan and she is agreeable RN Nelli at bed side. Plan discussed with: Patient My Orders Orders - SHARMIN AN MD Procedure Category Date Status Time Hydromorphone PHA 08/15/24 In Process Injection (Dilaudid 13:00 Clonidine Hcl Tablet PHA 08/15/24 In Process (Catapres Tablet) 13:15 Ct R Hip With Out CT 08/15/24 Resulted Contrast 13:02 Cover Wound With Dry SEAN 08/15/24 In Process Dressing 10:23 * Dietary Consult CONS 08/15/24 Transmitted 14:16 *Consult Dr. Smith CONS 08/15/24 Transmitted Glenn 14:58 Date of Service: Aug 16, 2024 Billing Provider: SHARMIN AN MD Common Visit Codes: [id number] INP/OBS CARE(HIGH) SHARMIN AN MD Aug 16, 2024 08:38
--- NOTE | 2024-08-16 08:43 | DVHDS2 ---
Discharge Summary Date of Admission Aug 14, 2024 at 10:00 Date of Discharge: Aug 16, 2024 Admitting Diagnosis Right hip pain Wounds: None Labs/Diagnostic Data: Laboratory Results Test 08/16/24 05:39 08/15/24 06:54 08/14/24 17:49 08/14/24 07:13 Creatinine 5.99 mg/dL (0.700-1.30) Glomerular Filtration Rate Calc 10 mL/min (>90) Random Vancomycin Level 17.6 ug/mL (5-10) White Blood Count 2.5 10^3/uL (4.4-10.8) Red Blood Count 3.19 10^6/uL (4.5-5.90) Hemoglobin 9.9 g/dL (13.5-17.5) Hematocrit 29.5 % (41.0-53.0) Mean Corpuscular Volume 92.7 fL (80.0-100.0) Mean Corpuscular Hemoglobin 31.1 pg (28.0-32.0) Mean Corpuscular Hemoglobin Concent 33.6 g/dL (32.0-36.0) Red Cell Distribution Width 17.9 % (11.8-14.3) Platelet Count 113 10^3/uL (140-450) Mean Platelet Volume 7.4 fL (6.9-10.8) Neutrophils (%) (Auto) % (37.0-80.0) Lymphocytes (%) (Auto) % (10.0-50.0) Monocytes (%) (Auto) % (0.0-12.0) Basophils (%) (Auto) % (0.0-2.0) Neutrophils # (Auto) 10 ^3/uL (1.6-8.6) Lymphocytes # (Auto) 10 ^3/uL (0.4-5.4) Monocytes # (Auto) 10 ^3/uL (0-1.3) Differential Total Cells Counted 100.0 (100) Neutrophils % (Manual) 51 (37.0-80.0) Band Neutrophils % (Manual) 0 Lymphocytes % (Manual) 27 (10.0-50.0) Monocytes % (Manual) 10 (0-12) Eosinophils % (Manual) 10 (0-7) Basophils % (Manual) 0 (0.0-2.0) Metamyelocytes % (manual) 2 Myelocytes % (Manual) 0 Promyelocytes % (Manual) 0 Blast Cells % (Manual) 0 Reactive Lymphocytes 0 Platelet Estimate Decreased Sodium Level 140 mmol/L (136-145) Potassium Level 5.1 mmol/L (3.5-5.1) Chloride Level 99 mmol/L (98-107) Carbon Dioxide Level 29 mmol/L (20-31) Anion Gap 12 (5-15) Blood Urea Nitrogen 34 mg/dL (9-23) BUN/Creatinine Ratio 6.9 (10.0-20.0) Serum Glucose 99 mg/dL (74-106) Calcium Level 9.8 mg/dL (8.7-10.4) Total Bilirubin 0.3 mg/dL (0.2-1.0) Aspartate Amino Transferase (AST) 16 U/L (13-40) Alanine Aminotransferase (ALT) 15 U/L (7-40) Alkaline Phosphatase 92 U/L (46-116) Total Protein 6.2 g/dL (5.7-8.2) Albumin 3.8 g/dL (3.2-4.8) Troponin I High Sensitivity 87 ng/L (</=54) Eosinophils (%) (Auto) 8.1 % (0.0-7.0) Eosinophils # (Auto) 0.4 10 ^3/uL (0-0.8) Basophils # (Auto) 0.1 10 ^3/uL (0-0.2) Nucleated Red Blood Cells 0.1 % Hepatitis A IgM Antibody Negative Hepatitis B Surface Antigen Negative (Negative) Hepatitis B Surface Antibody Positive (Negative) Hepatitis B Core IgM Antibody Negative (Negative) Hepatitis C Antibody Negative (Negative) Other Laboratory Tests 08/16/24 05:39 08/15/24 06:54 Brief Hx & Hospital Course: 59-year-old male with a history of osteomyelitis of the spine on IV meropenem and vancomycin discharged home on 08/06/2024 from this hospital [facility] for right hip pain. X-ray done there were negative and he was discharged home. Came back to our ER and got admitted for right hip pain. Denies any recent fall. CT right hip done in our hospitalist negative for any fracture or dislocation but shows degenerative changes patient also has a dialysis he received dialysis by Dr. Byrd . IV antibiotics vancomycin Mirapex continued in the hospital. Background medical problems diabetes hypotension hypercholesterolemia CHF history of coronary artery disease with stents hypertension managed appropriately. Patient continues to demand Dilaudid for the pain. He says that his primary Dr Dr. Sandoval in [place] is not refilling his pain medications. Discussed with him and the patient's Montserrat on the phone and being discharged home. Prescription for Dilaudid tablets transmitted to the pharmacy. He will continue IV meropenem vancomycin for his osteomyelitis of the spine and follow up with his primary Dr and the orthopedic Dr. Consults/Reason for consult None Operations or Procedures CT right hip Condition at Discharge: Fair Final Diagnosis/Problems List Right hip pain right hip x-ray done in [facility] negative CT right hip done here negative for any fracture dislocation Chronic pain syndrome Acute osteomyelitis L4-5 by MRI L-spine: on vancomycin and meropenem Status post laminectomy and foraminectomy at multiple levels of the lumbar spine by Dr. Villafana on 07/24/2024 ESRD on hemodialysis by Dr. Byrd Accelerated hypertension Acute generalized Weakness Chronic Right hip pain x-rays negative at [facility] recently Anemia of chronic disease Coronary artery disease status post stents x3 Plavix Acute on chronic CHF exacerbation ejection fraction 35 percent Diabetes History of seizures on gabapentin Hypertension Hyperlipidemia Obesity Chronic current smoker counseling Discharge Disposition: Home Discharge Instruct/Medications Diet: Cardiac 2g Na,low cholest Activity: Light activity Follow Up/Referral: Follow up with the primary Dr in one week Resume all previous medications including IV antibiotics for osteomyelitis with the spine Medications: Dilaudid Transmitted to pharmacy 35 (Time taken for discharge summary 35 minutes) Discharge Statement: "Patient was advised to return to the ER or call 911 if any headaches, dizziness, shortness of breath, chest pain, abdominal pain, bleeding, fevers, or worsening of medical condition. Patient was counseled about treatment plan, medications, possible side effects, patientverbalized understanding. All questions were answered to the best of my ability. This discharge took greater then 30 minutes in planning, reviewing documentation, counseling the patient, and discussing with other team members." ASSESSMENT ASSESSMENT Hospital Course Uneventful Assessment Right hip pain right hip x-ray done in [facility] negative CT right hip done here negative for any fracture dislocation Chronic pain syndrome Acute osteomyelitis L4-5 by MRI L-spine: on vancomycin and meropenem Status post laminectomy and foraminectomy at multiple levels of the lumbar spine by Dr. Villafana on 07/24/2024 ESRD on hemodialysis by Dr. Byrd Accelerated hypertension Acute generalized Weakness Chronic Right hip pain x-rays negative at [facility] recently Anemia of chronic disease Coronary artery disease status post stents x3 Plavix Acute on chronic CHF exacerbation ejection fraction 35 percent Diabetes History of seizures on gabapentin Hypertension Hyperlipidemia Obesity Chronic current smoker counseling Date of Service: Aug 16, 2024 Billing Provider: SHARMIN AN MD Common Visit Codes: [id number] DISCH DAY >30min SHARMIN AN MD Aug 16, 2024 08:43
[2024-08-16] MEDS: SODIUM CHL 0.9% 1000 ML BAG XX ONE ×2 (15:06→15:07)
[2024-08-16] MEDS ORDERED: hydrALAZINE HCL 20 MG/ML VL IV PRN ×3 (16:30→17:15)
--- NOTE | 2024-08-16 17:24 | DVHPN2 ---
Progress Note - Dictate Date Seen: Aug 16, 2024 Has the PT tested + for MRSA If YES, has PT been informed?: No Medical Necessity Reason Pt with a Central, PICC or Fol: No Subjective No new complaints vital signs Vital Sign Date Time Temp Pulse Resp B/P (MAP) Pulse Ox O2 Delivery O2 Flow Rate FiO2 08/16/24 17:17 102 156/86 (109) 08/16/24 14:00 18 08/16/24 09:00 97.4 95 97.4 08/16/24 08:00 Nasal Cannula* 4 36 Total Intake and Output 08/15/24 08/15/24 08/16/24 15:00 23:00 07:00 Intake Total 1050 ml 800 ml Output Total 250 ml Balance 800 ml 800 ml medications Current Medications Medications Dose Ordered Sig/Gerard Route Start Time Stop Time Status Last Admin Dose Admin Sodium Chloride 10 ml Q8HR IV 08/14/24 14:00 08/16/24 13:13 10 ML Ondansetron HCl 4 mg Q4HP PRN IV 08/14/24 10:00 08/16/24 13:27 4 MG Docusate Sodium 100 mg BIDPRN PRN PO 08/14/24 10:00 Acetaminophen 650 mg Q6HP PRN PO 08/14/24 10:00 Allopurinol 100 mg QAM PO 08/15/24 07:00 08/16/24 06:41 100 MG Amlodipine Besylate 10 mg DAILY PO 08/15/24 10:00 08/16/24 09:32 10 MG Aspirin 81 mg QAM PO 08/15/24 07:00 08/16/24 06:41 81 MG Calcium Acetate 667 mg TIDWM PO 08/14/24 12:00 08/16/24 12:24 667 MG Clopidogrel Bisulfate 75 mg DAILY PO 08/15/24 10:00 08/15/24 11:57 75 MG Furosemide 40 mg DAILY PO 08/15/24 10:00 08/15/24 11:55 40 MG Pantoprazole Sodium 40 mg QAM PO 08/15/24 07:00 08/16/24 06:40 40 MG Ranolazine 500 mg BID PO 08/14/24 22:00 08/15/24 21:38 500 MG Patient Own Medication 1 tab DAILY PO 08/15/24 10:00 UNV Patient Own Medication 1 aer BID IN 08/14/24 22:00 Patient Own Medication 1 tab TID PO 08/14/24 14:00 UNV Patient Own Medication 60 mg DAILY PO 08/15/24 10:00 UNV Atorvastatin Calcium 40 mg HS PO 08/14/24 22:00 08/15/24 21:38 40 MG Hydralazine HCl 100 mg TID PO 08/14/24 14:00 08/16/24 15:22 100 MG Isosorbide Mononitrate 60 mg DAILY PO 08/15/24 10:00 08/15/24 11:55 60 MG Vancomycin HCl 0 ml @ 0 mls/hr UD IV 08/14/24 15:30 Meropenem 50 ml @ 17 mls/hr DAILY@1800 IV 08/15/24 18:00 08/15/24 00:04 17 MLS/HR Albuterol 2.5 mg Q6HPRN PRN NEB 08/15/24 01:45 Hydromorphone HCl 2 mg Q4HPRN IV 08/15/24 13:00 08/16/24 13:30 2 MG Clonidine HCl 0.2 mg Q6HP PRN PO 08/15/24 13:15 08/16/24 16:19 0.2 MG Hydralazine HCl 10 mg ONCE PRN IV 08/16/24 17:15 objective GENERAL: The patient is a tall gentleman who appears to be chronically ill, not in acute distress, alert and oriented x 3. HEENT: Unremarkable. Oral mucosa is pale and dry. NECK: There is no jugular venous distention. LUNGS: Show a few crackles at the bases. CARDIOVASCULAR: Regular rate with an S4 gallop. No pericardial rub. ABDOMEN: Soft, mildly distended. Bowel sounds are normal intensity and frequency. No organomegaly. No ascites. EXTREMITIES: Show no clubbing or cyanosis. There is trace edema in the ankles. laboratory and microbiology Laboratory Tests 08/16/24 05:39 08/15/24 06:54 Test 08/15/24 06:54 Range/Units Serum Glucose 99 74-106 mg/dL Problem List ASSESSMENT AND PLAN: * Stable end-stage renal disease. * Hyperkalemia resolved after HD yesterday * Right hip pain. * Recent treatment for spinal abscess. * History of hypertension. * Anemia of renal disease. Continue HD on TTS schedule DC planning Plan discussed with: Patient IVORY LEARY MD Aug 16, 2024 17:24
[2024-08-16] MEDS ORDERED: EPOETIN ALFA-EPBX 10,000 UNIT/1ML VIAL SC ONE (21:00)
== END 2024-08-16 17:47 | disposition home or self-care (01) | DRG 637 ==
LOC: ER 03:44 → OVERFLOW 10:00 → CENTRAL 21:22
PROVIDERS: ADMIT Family Medicine; ATTEND Family Medicine
PROC: 5A1D70Z Performance of Urinary Filtration, Intermittent, Less than 6 Hours Per Day (ICD-10-PCS; principal; 2024-08-14)
DX: E11.69 Type 2 diabetes mellitus with other specified complication (principal); I21.A1 Myocardial infarction type 2; I13.2 Hypertensive heart and chronic kidney disease with heart failure and with stage 5 chronic kidney disease, or end stage renal disease; M46.26 Osteomyelitis of vertebra, lumbar region; E87.5 Hyperkalemia; N18.6 End stage renal disease; J44.9 Chronic obstructive pulmonary disease, unspecified; I50.9 Heart failure, unspecified; E11.22 Type 2 diabetes mellitus with diabetic chronic kidney disease; E66.9 Obesity, unspecified; G89.4 Chronic pain syndrome; F17.210 Nicotine dependence, cigarettes, uncomplicated; I25.10 Atherosclerotic heart disease of native coronary artery without angina pectoris; D63.1 Anemia in chronic kidney disease; E78.00 Pure hypercholesterolemia, unspecified; Z86.61 Personal history of infections of the central nervous system; Z99.2 Dependence on renal dialysis; Z95.1 Presence of aortocoronary bypass graft; Z88.0 Allergy status to penicillin; Z95.5 Presence of coronary angioplasty implant and graft; Z79.82 Long term (current) use of aspirin; Z79.899 Other long term (current) drug therapy; Z90.49 Acquired absence of other specified parts of digestive tract; Z68.27 Body mass index [BMI] 27.0-27.9, adult
CPT/HCPCS: 36415; 71045; 73700; 80048; 80053; 80074; 80202; 82565; 84132; 84484; 85007; 85025; 85027; 86706; 90935; 94640; 96365; 96375; 97163; 99291; G0378; J1642; J1815; J2185; J2405

== ENCOUNTER 2024-08-24 14:34 | Inpatient (IN) | payer MEDICARE, OTHER ==
[~2024-08-24] VITALS: Ht 188 cm; Wt 93.5 kg
[~2024-08-24 14:34] MED LIST changes: -COLCPOW2 PO
--- NOTE | 2024-08-24 15:03 | ECG ---
[facility] Test Date: 2024-08-24 Test Time: 14:57:55 Pat Name: CARLOS KING Department: ER Room: Gender: M [employer] Tender: BENTLEY : 1965 Requested By: JEANNA KENNEDY Order Number: [id number] Reading MD: Aquiles Hobbs Measurements Intervals [place] Rate: 87 P: 67 MS: 160 QRS: 96 QRSD: 115 T: 61 QT: 409 QTc: 492 Interpretive Statements Sinus rhythm Ventricular preexcitation(WPW) Electronically Signed On 08-24-2024 21:20:14 PDT by Aquiles Hobbs Please click the below link to view image of tracing.
--- NOTE | 2024-08-24 15:16 | ED.PDOC ---
HPI Comments HPI: 59-year-old male presents to the emergency department with a chief complaint of dizziness onset today (08/24/24). Patient went to see PCP Dr. Sandoval for a routine follow up for dizziness, heart murmur was heard, sent to ED to r/o endocarditis. Patient had back surgery 1 month ago, has [address], has a picc line RT upper arm, on antibiotics. Dialysis Tuesday, , Tuesday. He states he has no complaints, came to ED due to referral. No other symptoms or modifying factors present at this time. Initial Vitals BP: 171/76 HR: 88 RR: 16 O2 Sat: 99% 2L Past Medical history: back osteomyelitis O2 4L, ESRD, HTN, fibromyalgia, DM, Fistula LT arm, hearing loss LT ear Past Surgical history:coronary stents, surgery back 1 month Medications: meropenem Social History:cigarettes Allergies: NKDA HPI: Poor Historian. REVIEW OF SYSTEMS: CONSTITUTIONAL: Denies acute: fever, diaphoresis, chills, generalized weakness. HEAD: Denies acute: headache, photophobia Eyes: Denies acute: Double vision, vision loss, eye pain, eye discharge. EARS: Denies acute: tinnitus, hearing loss, ear discharge, ear pain, THROAT: Denies acute: sore throat, swelling, difficulty swallowing , pain with swallowing, change in voice. NECK: Denies acute: neck pain, neck swelling, stiff neck. HEART: Denies acute : chest pain, palpitations, LUNGS: Denies acute: SOB, wheezing, cough, hemoptysis ABDOMEN: Denies acute: abdominal pain, Nausea, Vomiting, diarrhea, melena , hematemesis, hematochezia SKIN: Denies acute: rash, redness, lesions, itchiness. EXTREMITIES: Denies acute: calf pain, numbness, tingling, weakness, denies pain in extremity. Denies acute: Low back pain. Neuro: Denies acute: focal neurological deficit, motor or sensory focal neurological deficit, tremors, seizure like activity, confusion, dizziness, change in mental status, loss of bowel or bladder function, cauda equina like symptoms. : Denies acute: dysuria, hematuria, flank pain, increase in urinary frequency. PSYCH: Denies acute: hallucination, suicidal ideation, homicidal ideation. PHYSICAL EXAM: General: ----no----acute distress, awake and alert. Hard of hearing Head: normocephalic, atraumatic. Neck: supple, trachea is midline, no swelling. Throat: Normal phonation. Eyes:, no erythema, no purulent discharge, no proptosis, no icterus. Heart: regular rate, regular rhythm, noted murmur Lungs: no apparent respiratory distress, Able to speak in full sentences. No wheezing, no rhonchi, no crackles. No stridors Clear to auscultation bilaterally. Abdomen: non tender to palpation, non distended, soft, no guarding, no rebound, + bowel sounds. Right upper extremity PICC line in place. Neuro: Awake, Alert, oriented to name, self, situation, follows commands GCS=15. Speech is normal. Skin: no petechia, no purpura, no cyanosis, non-pale, not jaundice. Lower extremities: --no - Pitting edema no deformity, no focal swelling, no calf TTP. Makes eye contact. moves all four extremities. Face: no apparent facial droop. ED COURSE: DISCLAIMER: This medical document was created using an electronic medical record system with voice recognition software and computerized dictation system. Although this document has been carefully reviewed, there might still be some phonetic and typographical errors. Occasional wrong-word or "sound-alike" substitutions may have occurred due to the inherent limitations of voice recognition software. These areas are purely typographical due to imperfections of the software programs and do not reflect any compromise in the patient's medical care. Please read the chart carefully and recognize, using context, where these substitutions have occurred. Chief Complaint: Shortness of Breath Time Seen by MD: 15:00 Reviewed Notes: Medications, Allergies Allergies: Coded Allergies: Penicillins (Verified Allergy, Unknown, 09/19/23) Tetanus Toxoid (Verified Allergy, Unknown, 09/19/23) Home Meds Active Scripts Hydromorphone Hcl (Dilaudid) 2 Mg Tab, 1 TAB PO TID PRN, #40 TAB Prov:SHARMIN AN MD 08/16/24 Cyclobenzaprine Hcl (Cyclobenzaprine Hcl) 5 Mg Tab, 1 TAB PO TID PRN, #30 TAB Prov:SHARMIN AN MD 07/30/24 Hydromorphone Hcl (Dilaudid) 2 Mg Tab, 1 TAB PO TID PRN, #40 TAB Prov:SHARMIN AN MD 07/30/24 Clopidogrel Bisulfate (CLOPIDOGREL) 75 Mg Tab, 75 MG PO DAILY for 30 Days, #30 TAB Prov:LEÓN COLLINS MD 08/16/23 Reported Medications Patiromer Sorbitex Calcium (Veltassa) 8.4 Gm Pow, 1 PKT PO DAILY 07/12/24 Colchicine (Mitigare) 0.6 Mg Cap, 0.6 MG PO PRN for for gout, CAP 07/12/24 Albuterol Sulfate (VENTOLIN MDI) 90 Mcg Ih, 2 PUFF IN Q6HPRN PRN for wheezing, INH 07/12/24 Losartan Potassium (Cozaar) 100 Mg Tab, 300 MG PO DAILY, TAB 07/12/24 Ipratropium-Albuterol (Ipratropium [place]/Albut) 1 Jacob Jacob, 1 JACOB IN QIDPRN PRN for SHORTNESS OF BREATH, ML 07/12/24 Clonidine Hydrochloride (Clonidine Hcl) 0.1 Mg Tab, 1 TAB PO PRN for SBP>160 04/17/24 Furosemide (Lasix) 40 Mg Tab, 40 MG PO DAILY, TAB 03/04/24 Amlodipine Besylate (NORVASC TABLET) 5 Mg Tb, 2 TAB PO DAILY, #30 TAB 5 Refills 03/04/24 Isosorbide Mononitrate (Isosorbide Mononitrate Er) 30 Mg Tab, 60 MG PO DAILY for CAD 09/19/23 Calcium Acetate (Phosphate Bin (Calcium Acetate) 667 Mg Cap, 667 MG PO TIDWM for DIALYSIS, MG 09/19/23 Atorvastatin Calcium (ATORVASTATIN CALCIUM) 40 Mg Tab, 1 TAB PO DAILY for HIGH CHOLESTEROL, #30 TAB 5 Refills 09/19/23 Bzmlotpgae-Kqbvmvleqlsjsp-Zwco (Breztri Aerosphere 160-9-4.8 Mcg/Act) 1 Aer Aer, 1 AER IN BID for COPD, AER 09/19/23 Albuterol Sulfate (Ventolin) 2.5 Mg/3 Ml Nb, 2.5 MG NEB Q4HP PRN for SHORTNESS OF BREATH, INH 09/19/23 Ranolazine (Ranolazine ER) 500 Mg Tab, 500 MG PO BID for CAD, TAB 09/19/23 Diazepam (VALIUM TABLET) 5 Mg Tb, 2 TAB PO PRN PRN for onset seizure, TAB 08/14/23 Hydralazine Hcl (Hydralazine Hcl) 100 Mg Tab, 1 TAB PO TID, #90 TAB 5 Refills 08/14/23 Gabapentin (Gabapentin) 100 Mg Cap, 2 CAP PO TID PRN for onset seizure , #90 CAP 2 Refills Take with diazepam. 08/14/23 Pantoprazole Sodium Sesquihydr (Protonix) 40 Mg Tab, 40 MG PO QAM, #30 TAB 08/14/23 Aspirin (Aspir-81) 81 Mg Tab, 1 TAB PO QAM, #30 TAB 5 Refills 08/14/23 Allopurinol (ZYLOPRIM TABLET) 100 Mg Tb, 1 TAB PO QAM, #30 TAB 5 Refills 08/14/23 Information Source: Patient Mode of Arrival: Wheelchair Severity: Moderate Timing: Hours Duration: Since onset Prehospital treatment: None Onset: At Rest Cardiac Risk Factors: Smoker, HTN, Diabetes PE Risk Factors: Recent Surgery (back surgery 1 month ), Immobilization History of: Similar pain in past Modifying Factors: Nothing Associated Signs and Symptoms: SOB Past Medical History PAST MEDICAL HISTORY: DM, ESRD, HTN Past Medical History (Other): back osteomyelitis O2 4L, fibromyalgia, Fistula LT arm, hearing loss LT ear Surgical History (Other): back surgery, coronary stents Family History Family History: Reviewed,noncontributory to illness, No family hx of Cancer, No family hx of DM, No family hx of Heart [place], No family hx of HTN, No family hx ofKidney [place], No family hx of Liver [place], No family hx of Lung [place], No family hx of Stroke Social History Smoker: Cigarettes Alcohol: Denies ETOH Use Drugs: Denies Drug Use Lives In: Home Was a procedure done? Was a procedure done?: No CP Differential Dx Differential Diagnosis: N/A X-Ray, Labs, Meds, VS Vital Signs Date Time Temp Pulse Resp B/P (MAP) Pulse Ox O2 Delivery O2 Flow Rate FiO2 08/24/24 18:00 84 15 132/78 (96) 95 08/24/24 17:00 84 08/24/24 17:00 84 08/24/24 16:35 153/48 08/24/24 16:12 84 16 95 Nasal Cannula* 2 08/24/24 16:12 98.7 84 15 144/47 (79) 98 98.7 08/24/24 16:11 19 94 Nasal Cannula* 2 08/24/24 14:57 87 08/24/24 14:47 97.6 88 16 171/76 (107) 99 97.6 Lab Test 08/24/24 18:56 08/24/24 16:28 08/24/24 15:14 Range/Units Potassium Level 5.3 H 5.9 *H 3.5-5.1 mmol/L Troponin I High Sensitivity 28 76 *H 30 </=54 ng/L White Blood Count 3.8 L 4.4-10.8 10^3/uL Red Blood Count 2.80 L 4.5-5.90 10^6/uL Hemoglobin 8.6 L 13.5-17.5 g/dL Hematocrit 25.3 L 41.0-53.0 % Mean Corpuscular Volume 90.1 80.0-100.0 fL Mean Corpuscular Hemoglobin 30.8 28.0-32.0 pg Mean Corpuscular Hemoglobin Concent 34.2 32.0-36.0 g/dL Red Cell Distribution Width 17.2 H 11.8-14.3 % Platelet Count 165 140-450 10^3/uL Mean Platelet Volume 7.3 6.9-10.8 fL Neutrophils (%) (Auto) 37.0-80.0 % Lymphocytes (%) (Auto) 10.0-50.0 % Monocytes (%) (Auto) 0.0-12.0 % Basophils (%) (Auto) 0.0-2.0 % Neutrophils # (Auto) 1.6-8.6 10 ^3/uL Lymphocytes # (Auto) 0.4-5.4 10 ^3/uL Monocytes # (Auto) 0-1.3 10 ^3/uL Differential Total Cells Counted 100.0 100 Neutrophils % (Manual) 55 37.0-80.0 Band Neutrophils % (Manual) 0 Lymphocytes % (Manual) 11 10.0-50.0 Monocytes % (Manual) 19 H 0-12 Eosinophils % (Manual) 13 H 0-7 Basophils % (Manual) 0 0.0-2.0 Metamyelocytes % (manual) 0 Myelocytes % (Manual) 0 Promyelocytes % (Manual) 0 Blast Cells % (Manual) 2 Reactive Lymphocytes 0 Platelet Estimate Adequate Erythrocyte Sedimentation Rate 50 H 0-20 mm/hr Sodium Level 134 L 136-145 mmol/L Chloride Level 94 L 98-107 mmol/L Carbon Dioxide Level 29 20-31 mmol/L Anion Gap 11 5-15 Blood Urea Nitrogen 54 H 9-23 mg/dL Creatinine 6.73 H 0.700-1.30 mg/dL Glomerular Filtration Rate Calc 9 >90 mL/min BUN/Creatinine Ratio 8.0 L 10.0-20.0 Serum Glucose 121 H 74-106 mg/dL Lactic Acid Level 1.3 0.4-2.0 mmol/L Calcium Level 10.5 H 8.7-10.4 mg/dL Total Bilirubin 0.3 0.2-1.0 mg/dL Aspartate Amino Transferase (AST) 18 <34 U/L Alanine Aminotransferase (ALT) 9 7-40 U/L Alkaline Phosphatase 100 46-116 U/L C-Reactive Protein High Sensitivity 15.83 H <1.0 mg/dL B-Type Natriuretic Peptide 1779.22 0-100 pg/mL Total Protein 7.0 5.7-8.2 g/dL Albumin 4.3 3.2-4.8 g/dL Current Medications Medications (Trade) Dose Ordered Sig/Gerard Route Start Time Stop Time Status Last Admin Albuterol (Ventolin Medneb) 20 mg ONCE ONCE NEB 08/24/24 16:00 08/24/24 16:10 DC 08/24/24 16:11 Sodium Bicarbonate 50 ml ONCE ONCE IV 08/24/24 16:00 08/24/24 16:10 DC 08/24/24 16:34 Furosemide (Lasix Injection) 20 mg ONCE ONCE IV 08/24/24 16:00 08/24/24 16:10 DC 08/24/24 16:35 Calcium Gluconate/ Sodium Chloride 50 ml @ 120 mls/hr ONCE ONCE IV 08/24/24 16:00 08/24/24 16:24 DC 08/24/24 16:41 Zirconium Oxide (Lokelma) 10 gm ONCE ONCE PO 08/24/24 16:00 08/24/24 16:10 DC 08/24/24 16:[address] [address] Ph: [phone] DIAGNOSTIC IMAGING Diagnostic Imaging Report : [id number] Signed PATIENT: CARLOS KING ACCT: [id number] UNIT: [id number] : 1965 LOC: ER ROOM / BED: / AGE / SEX: 59 / M ADM STATUS: REG ER SERVICE 1620 ORDERING PHYSICIAN: JEANNA KENNEDY DO PROCEDURE(s): CXRP - CHEST PORTABLE REASON: sob ORDER NUMBER(s): [id number], ACCESSION NUMBER(s): [id number] CHEST RADIOGRAPH Indication: sob Technique: Single frontal view of the chest was obtained COMPARISON: None FINDINGS: Lines and Tubes: None Lungs: Bilateral interstitial infiltrates. Pleura: Possible small bilateral pleural effusions No pneumothorax. Cardiomediastinal contours: Borderline cardiomegaly Bones: Unremarkable IMPRESSION: 1. Bilateral interstitial infiltrates Probable small bilateral pleural effusions Borderline cardiomegaly ATED BY: ROCIO UREÑA MD DICTATED DATE/TIME: 08/24/241641 SIGNED BY: ROCIO UREÑA MD SIGNED DATE/TIME: 08/24/241641 CC: Time of 1ST Reevaluation: 15:30 Reevaluation 1ST: Unchanged Patient Education/Counseling: Diagnosis, Treatment Family Education/Counseling: No Family Present Comments Patient presented with the above HPI.--rule out endocarditis----workup was initiated. patient was found with the above mentioned diagnosis. the following medications were ordered: please refer to order lists of meds and tests obtained by myself Dr. Kennedy. Patient ED course and VS have been stabilized. Patient has been reassessed in the ED and remained in a stable condition. Pertinent incidental findings were discussed with the patient and/or family. Patient/family voices understanding and is agreeable with plan. Patient has been observed in the ED adequate length of time to insure improvement/stability. Escalation of care considered: Consideration of escalation to observation or admission Patient requested his home medications of gabapentin and diazepam for his pseudo-seizure history. He is already on daily IV antibiotics of meropenem Chest x-ray suggest bilateral infiltrates. Patient is already on IV antibiotics. Hyperkalemia protocol was initiated. Patient was ADMITTED to the medicine team for further evaluation and treatment of their presentation. All the reports of any imaging studies that were ordered by myself were reviewed by myself. Departure 1 Departure Time of Disposition: 16:31 Impression: Primary Impression: Heart murmur Additional Impressions: End-stage renal disease on hemodialysis Hyperkalemia Anemia Elevated troponin Bilateral pulmonary infiltrates Disposition: ADMITTED INPATIENT Admit to: Tele Condition: Guarded Discharged With: Self Critical Care Note Critical Care Time?: Yes (55 min-critical care time only) Heart Score Heart Score: Heart Score Response (Comments) Value History N/A 0 EKG N/A 0 Age N/A 0 Risk Factors N/A 0 Troponin N/A 0 Total 0 I personally scribed for JEANNA KENNEDY DO ([email or web address]) on 08/24/24 at 15:16. Electronically submitted by Tori Dumont ([email or web address]). I personally scribed for JEANNA KENNEDY DO ([email or web address]) on 08/24/24 at 15:18. Thu ctronically submitted by Tori Dumont ([email or web address]). I personally scribed for JEANNA KENNEDY DO ([email or web address]) on 08/24/24 at 16:45. Electronically submitted by Tori Dumont ([email or web address]). JEANNA KENNEDY DO Aug 24, 2024 15:16
[2024-08-24 15:38] LABS: Hematocrit 25.3 % (41.0-53.0); Hemoglobin 8.6 g/dL (13.5-17.5); Mean Corpuscular Hemoglobin 30.8 pg (28.0-32.0); Mean Corpuscular Hgb Conc. 34.2 g/dL (32.0-36.0); Mean Corpuscular Volume 90.1 fL (80.0-100.0); Platelet Count (auto) 165 10^3/uL (140-450); Red Cell Distribution Width 17.2 % (11.8-14.3); White Blood Cell 3.8 10^3/uL (4.4-10.8)
[2024-08-24 15:41] LABS: Band Neutrophils % (manual) 0; Basophils % (manual) 0 (0.0-2.0); Metamyelocytes % 0; Myelocytes % 0; Promyelocytes % 0; Reactive Lymphocytes 0
[2024-08-24 15:52] LABS: Alanine Aminotransferase 9 U/L (7-40); Albumin 4.3 g/dL (3.2-4.8); Alkaline Phosphatase 100 U/L (46-116); Anion Gap 11 (5-15); Aspartate Aminotransferase 18 U/L (<34); Bilirubin, Total 0.3 mg/dL (0.2-1.0); Blood Urea Nitrogen 54 mg/dL (9-23); Calcium 10.5 mg/dL (8.7-10.4); Carbon Dioxide 29 mmol/L (20-31); Chloride 94 mmol/L (98-107); Glucose 121 mg/dL (74-106); Sodium 134 mmol/L (136-145)
[2024-08-24 15:53] LABS: Potassium 5.9 mmol/L (3.5-5.1)
[2024-08-24 16:02] LABS: CRP High Sensitivity 15.83 mg/dL (<1.0)
[2024-08-24] MEDS: ALBUTEROL SULF 2.5 MG/0.5ML(0.5%) NEB SOLN NEB ONE (16:11)
[2024-08-24] MEDS: ALBUTEROL SULF 2.5 MG/0.5ML(0.5%) NEB SOLN ONE (16:11)
[2024-08-24 16:12] VITALS: PULSE 84; RESP 16; O2SAT 95
[2024-08-24] MEDS: SODIUM BICARB 8.4% 50Meq/50ml SYR INJ IV ONE (16:34)
[2024-08-24] MEDS: FUROSEMIDE 20 MG/2 ML VIAL IV ONE (16:35)
[2024-08-24] MEDS: SODIUM ZIRCONIUM CYCL 10 GM PAK PO ONE (16:35)
[2024-08-24 16:41] LABS: Blast Cells 2; Eosinophils % (manual) 13 (0-7); Lymphocytes % (manual) 11 (10.0-50.0); Monocytes % (manual) 19 (0-12); Platelet Estimate Adequate
[2024-08-24] MEDS: CALCIUM GLUC 1,000mg/50ml-NS 50 ML IV ONE (16:41)
[2024-08-24 16:44] LABS: Erythrocyte Sedimentation Rate 50 mm/hr (0-20)
--- NOTE | 2024-08-24 16:44 | DVH ---
CHEST RADIOGRAPH Indication: sob Technique: Single frontal view of the chest was obtained COMPARISON: None FINDINGS: Lines and Tubes: None Lungs: Bilateral interstitial infiltrates. Pleura: Possible small bilateral pleural effusions No pneumothorax. Cardiomediastinal contours: Borderline cardiomegaly Bones: Unremarkable IMPRESSION: 1. Bilateral interstitial infiltrates Probable small bilateral pleural effusions Borderline cardiomegaly
[2024-08-24 19:35] VITALS: PULSE 83; RESP 18; O2SAT 95
[2024-08-24] MEDS ORDERED: ONDANSETRON HCL 4 MG/2 ML VIAL IV PRN (21:30)
[2024-08-24] MEDS ORDERED: MORPHINE SULFATE INJ 2 MG/ml SYRG IV PRN (21:30)
[2024-08-24] MEDS ORDERED: DOCUSATE SOD 100 MG CAP PO PRN (21:30)
[2024-08-24] MEDS ORDERED: NITROGLYCERIN 0.4 MG SL TAB SL PRN (21:30)
[2024-08-24] MEDS: HYDROmorphone HCL 2 MG/ML VL/or syr IV ONE (22:30)
[2024-08-24] MEDS: FUROSEMIDE 100 MG/10ML VIAL IV SCH (23:29)
[2024-08-24] MEDS: CYCLOBENZAPRINE HCL 10 MG TAB PO ONE (23:32)
--- NOTE | 2024-08-25 01:17 | DVHHPRES ---
History of Present Illness Resident Creating Document: ANDREI TORRES RESIDENT History of Present Illness Mr. Mckee, a 59-year-old male with PMHx CAD s/p stents x7 times (about a year ago), Back osteomyelitis, ESRD on dialysis, hypertension, fibromyalgia, COPD, chronic hypoxic respiratory failure 3-4L/min, diabetes mellitus, left-sided hearing loss, coronary stents, recent back surgery, nicotine abuse presented to the emergency department on 08/24/24 with dizziness that began earlier that day. He was referred by his PCP, Dr. Sandoval, after a new onset of heart murmur was detected during a routine follow-up this AM, raising concern for possible endocarditis. The patient recently underwent back surgery one month ago, currently has [address] without local complication, a right upper arm PICC line, and is on IV meropenem. He is on a dialysis schedule of Tuesday, , and Tuesday with Vancomycin. He denies any current symptoms or complaints aside from the initial dizziness. Vitals on arrival were BP 171/76, HR 88, RR 16, and O2 saturation 99% on 3-4L. Past Medical History CAD s/p stents x7 times (about a year ago), Back osteomyelitis, ESRD on dialysis, hypertension, fibromyalgia, COPD, chronic hypoxic respiratory failure 3-4L/min, diabetes mellitus, left-sided hearing loss, coronary stents, recent back surgery, nicotine abuse Past Surgical History appendectomy, cholecystectomy, back surgery, coronary stents and Fistula LT arm. Family History: CVA Family History Noncontributory Smoke: # pack years (>40) ALCOHOL: none Drugs: None Lives: with Family Domestic Violence: Neg Review of Systems Constitutional: Yes: Malaise; No: Fever, Chills, Sweats, Weakness, Other Eyes: No: Pain, Vision change, Conjunctivae inflammation, Eyelid inflammation, Other, Redness ENT: No: Ear pain, Ear discharge, Nose pain, Nose discharge, Nose congestion, Mouth pain, Mouth swelling, Throat pain, Throat swelling, Other Respiratory: No: Cough, Dry, Shortness of breath, SOB with excertion, Wheezing, Hemoptysis, Pleuritic Pain, Sputum, Wheezing, Other Cardiovascular: No: Chest Pain, Palpitations, Orthopnea, Paroxysmal Noc. Dyspnea, Edema, Lt Headedness, Other Gastrointestinal: No: Nausea, Vomiting, Abdominal Pain, Diarrhea, Constipation, Melena, Hematochezia, Other Genitourinary: No Dysuria, No Frequency, No Incontinence, No Hematuria, No Retention, No Other Musculoskeletal: back pain; No: other, neck pain, shoulder pain, arm pain, hand pain, leg pain, foot pain Skin: No: Rash, Lesions, Jaundice, Bruising, Other Neurological: No: Weakness, Numbness, Incoordination, Change in speech, Confusion, Seizures, Other Allergies: Coded Allergies: Penicillins (Verified Allergy, Unknown, 09/19/23) Tetanus Toxoid (Verified Allergy, Unknown, 09/19/23) Medications Current Medications Medications Dose Ordered Sig/Gerard Route Start Time Stop Time Status Last Admin Dose Admin Ondansetron HCl 4 mg Q4HP PRN IV 08/24/24 21:30 Docusate Sodium 100 mg BIDPRN PRN PO 08/24/24 21:30 Acetaminophen 650 mg Q6HP PRN PO 08/24/24 21:30 Morphine Sulfate 2 mg Q4HPRN PRN IV 08/24/24 21:30 Nitroglycerin 0.4 mg Q5MINP PRN SL 08/24/24 21:30 Morphine Sulfate 2 mg Q30M PRN IV 08/24/24 21:30 Furosemide 80 mg BIDD IV 08/24/24 21:45 08/24/24 23:29 80 MG Hydromorphone HCl 2 mg Q6HPRN PRN PO 08/25/24 00:00 Cyclobenzaprine HCl 5 mg TID PO 08/25/24 06:00 Exam Vital Signs Vital Signs Date Time Temp Pulse Resp B/P (MAP) Pulse Ox O2 Delivery O2 Flow Rate FiO2 08/24/24 23:29 122/64 08/24/24 22:30 80 18 08/24/24 22:00 93 08/24/24 19:35 97.0 97.0 08/24/24 19:35 Room Air* 0 21 Exam accompanied by , bedside. General Appearance: Alert, Oriented X3, Cooperative, mild distress HEENT: Atraumatic, PERRLA, EOMI, Mucous membr. moist/pink Respiratory: Clear to auscultation, Normal air movement, Other (3-4L ) Cardiovascular: Regular rate, Normal S1, Normal S2, No murmurs Abdominal: Normal bowel sounds, Soft, No tenderness, No hepatospenomegaly, No masses Extremities: No clubbing, No cyanosis, No edema, Normal pulses, No tenderne ss/swelling, Other (Left forearm fistula patent, Right arm PICC line. Back no new spinal tendernes, intact surgical site with farhana in situ. no discharge or redness noted. no vascular spots seen. ) Skin: No rashes, No breakdown, No significant lesion Neuro: Strength at 5/5 X4 ext, Normal tone, Sensation intact, Cranial nerves 3- 12 NL, Other (back pain refused to extensive lower limb ) Psych/Mental Status: Mental status NL, Mood NL Labs/Xrays Labs Test 08/24/24 18:56 08/24/24 15:14 Range/Units Potassium Level 5.3 H 3.5-5.1 mmol/L Troponin I High Sensitivity 28 </=54 ng/L White Blood Count 3.8 L 4.4-10.8 10^3/uL Red Blood Count 2.80 L 4.5-5.90 10^6/uL Hemoglobin 8.6 L 13.5-17.5 g/dL Hematocrit 25.3 L 41.0-53.0 % Mean Corpuscular Volume 90.1 80.0-100.0 fL Mean Corpuscular Hemoglobin 30.8 28.0-32.0 pg Mean Corpuscular Hemoglobin Concent 34.2 32.0-36.0 g/dL Red Cell Distribution Width 17.2 H 11.8-14.3 % Platelet Count 165 140-450 10^3/uL Mean Platelet Volume 7.3 6.9-10.8 fL Neutrophils (%) (Auto) 37.0-80.0 % Lymphocytes (%) (Auto) 10.0-50.0 % Monocytes (%) (Auto) 0.0-12.0 % Basophils (%) (Auto) 0.0-2.0 % Neutrophils # (Auto) 1.6-8.6 10 ^3/uL Lymphocytes # (Auto) 0.4-5.4 10 ^3/uL Monocytes # (Auto) 0-1.3 10 ^3/uL Differential Total Cells Counted 100.0 100 Neutrophils % (Manual) 55 37.0-80.0 Band Neutrophils % (Manual) 0 Lymphocytes % (Manual) 11 10.0-50.0 Monocytes % (Manual) 19 H 0-12 Eosinophils % (Manual) 13 H 0-7 Basophils % (Manual) 0 0.0-2.0 Metamyelocytes % (manual) 0 Myelocytes % (Manual) 0 Promyelocytes % (Manual) 0 Blast Cells % (Manual) 2 Reactive Lymphocytes 0 Platelet Estimate Adequate Erythrocyte Sedimentation Rate 50 H 0-20 mm/hr Sodium Level 134 L 136-145 mmol/L Chloride Level 94 L 98-107 mmol/L Carbon Dioxide Level 29 20-31 mmol/L Anion Gap 11 5-15 Blood Urea Nitrogen 54 H 9-23 mg/dL Creatinine 6.73 H 0.700-1.30 mg/dL Glomerular Filtration Rate Calc 9 >90 mL/min BUN/Creatinine Ratio 8.0 L 10.0-20.0 Serum Glucose 121 H 74-106 mg/dL Lactic Acid Level 1.3 0.4-2.0 mmol/L Calcium Level 10.5 H 8.7-10.4 mg/dL Total Bilirubin 0.3 0.2-1.0 mg/dL Aspartate Amino Transferase (AST) 18 <34 U/L Alanine Aminotransferase (ALT) 9 7-40 U/L Alkaline Phosphatase 100 46-116 U/L C-Reactive Protein High Sensitivity 15.83 H <1.0 mg/dL B-Type Natriuretic Peptide 1779.22 0-100 pg/mL Total Protein 7.0 5.7-8.2 g/dL Albumin 4.3 3.2-4.8 g/dL Assessment/Plan Assessment/Plan # New onset of murmur concerning for infective endocarditis: Confirmed bedside, likely holosystolic physical examination unremarkable no vascular or clinical findings. Afebrile hemodynamically stable, no h/o IVDU cardiology consult TTE>KAMI, blood culture, daily EKG to rule out [place] prolongation concerning for cardiac abscess. # hyperkalemia: 5.9> 5.3 hypochromic protocol started, trend down, telemetry, continue Lokelma. Patient is taking high potassium diet. counseled. # Acute hyponatremia, hypervolemia: sodium, mild, hypervolemic, mild fluid overload likely.monitor bmp. # ESRD on hemodialysis: Elevated BUN, creatinine 6.73, GFR 9, consulted Lul Byrd, Nephrology in-hospital HD fluid management. Anuria, less than 100 cc of U/O, rule out UTI. # likely type 2 NSTEMI: Likely due to elevated LVEDP Mild elevation of troponin, steep rise and fall, with max of 76, no STT segment acute EKG changes, telemetry cont. # anemia of chronic disease likely due to underlying kidney disease: continue monitoring and transfusion threshold 8 or below given underlying CAD and CHF. IV ppi to continue. H&H at baseline. # elevated CRP ESR: likely inflammatory/ infectious process of back pain/osteomyelitis/ surgical recovery # Possible community-acquired pneumonia/ Gram-positive/Gram-negative/ atypical: Rule out with viral and bacterial workup. bilateral interstitial infiltrates concerning for CPAP/ congestion but unlikely copd exacerbation. # Possible right lower lobe pneumonia / possible aspiration pneumonia: Status post HD, reevaluate. # Heart failure with reduced ejection fraction 35% ejection fraction: Last echo 03/09/2024, repeat echo at 6 months. BNP higher, mild hypervolemia, HD pending iv lasix till then. # pulmonary hypertension: Mildly dilated right ventricle with preserved systolic function, likely due to COPD. # calcified aortic valve without significant stenosis # history of COPD: likely due to prior smoking, as needed nebs to continue. Nebs cont. chest clear. # Chronic hypoxic respiratory failure: baseline on 3-4 liter. keep SpO2 around 92% # B/l Atelectasis: pain control, CARROL elevation and incentive spirometry. # History of CAD s/p PTCA-2 cardiac stents: on DAPT, no bleeding noted. continue. cath about a year ago. # history of spine surgery status post infection and local abscess: s/p picc line right upper arm with meropenam+vancomycin around July [address] Adair's # history of spinal osteomyelitis status post surgical management: by The patient was last hospitalized care, is currently on vancomycin, and underwent extensive spinal surgery on 07/24/2024 including multiple laminectomies, l aminotomies, foraminotomies, and facetectomies from lumbar 3 to sacral 1 levels for nerve root and central canal decompression, along with irrigation and debridement of a deep lumbar spine infection, and use of a microscope for microdissection; follow-up includes blood cultures and wound checks. # essential hypertension, poorly controlled, target BP <140-90, close follow up with optimum pain mx. # previous fall and right hip injury, pain well controlled # surgical history of appendectomy, cholecystectomy, back surgery, coronary stents and Fistula LT arm. # Post surgical pain control: Dilaudid 2 tid not well managed will try dilaudid qid with scheduled flexeril. fall precaution. PT eval. 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 If persists will PCP: Dr. Sandoval. Specialist Relevant To Admission: Cardiology consult if TTE-ve will consider KAMI. IF IE found will need longitudinal ID follow up. Nephrology Dr. Byrd for TTS HD consulted. Case discussed with Dr. Waller. Code Status: Full Code. Goals of care discussion needed total 39 minutes bed side with plan of care. Patient and agreed to care of plan with in hospital admission on telemetry floor till IE ruled out/in. Plan discussed with: Patient, Spouse, Other My Orders Orders - ANDREI TORRES RESIDENT Procedure Category Date Status Time Admit ADMIT 08/24/24 Transmitted 21:22 Allergies SEAN 08/24/24 In Process 21:22 Code Status CODE 08/24/24 Transmitted 21:22 Ondansetron Hcl PHA 08/24/24 In Process (Zofran) 21:30 Docusate Sodium PHA 08/24/24 In Process Capsule (Colace 21:30 Fall Risk Precautions SEAN 08/24/[address] 21:22 Complete Blood Count LAB 08/25/24 Logged 04:00 Comprehensive LAB 08/25/24 Logged Metabolic Panel 04:00 Npo (Nothing By DIET 08/25/24 Transmitted Mouth) Diet Breakfast Pt Request For Service PT 08/24/24 Logged 21:22 Echo 2d Mode Cardiac US 08/24/24 Logged DOP 21:22 Condition: Serious SEAN 08/24/24 In Process 21:22 Acetaminophen Tablet PHA 08/24/24 In Process (Tylenol Tablet) 21:30 Morphine Sulfate PHA 08/24/24 In Process Injection 21:30 Sequential SEAN 08/24/24 In Process Compression Device Nitroglycerin PHA 08/24/24 In Process Sublingual (Ntrostat 21:30 Morphine Sulfate PHA 08/24/24 In Process Injection 21:30 Oxygen By Nasal RT 08/24/24 Transmitted Cannula 21:22 Stat Ekg For Chest SEAN 08/24/24 In Process Pain 21:22 Notify Md Of Changes SEAN 08/24/24 In Process From Base 21:22 Fruit Grader For SEAN 08/24/24 In Process 24 Hours 21:22 Emergency Dysrhythmia SEAN 08/24/24 In Process Protocol 21:22 Rhythm Strips Once SEAN 08/24/24 In Process Every Shift 21:22 Furosemide Injection PHA 08/24/24 In Process (Lasix Injection) 21:45 Hydromorphone Tablet PHA 08/25/24 In Process (Dilaudid Tablet) 00:00 *Dr. Rochelle Finnegan -Da CONS 08/24/24 Transmitted Maty 22:21 Blood Culture GAETANO 08/24/24 In Process 22:22 Sodium Zirconium PHA 08/25/24 In Process Cyclosilicate 06:00 Cyclobenzaprine PHA 08/25/24 In Process Tablet (Flexeril 06:00 Date of Service: Aug 24, 2024 Billing Provider: JOEL WALLER MD Common Visit Codes: [id number] INP/OBS CARE (HIGH) Secondary Visit Codes: [id number] CARE PLAN 30 MINUTES ANDREI TORRES RESIDENT Aug 25, 2024 01:17
[2024-08-25] MEDS: CYCLOBENZAPRINE HCL 10 MG TAB PO SCH (06:19)
[2024-08-25] MEDS: SODIUM ZIRCONIUM CYCL 10 GM PAK PO ONE (06:27)
[2024-08-25] MEDS: HYDROmorphone HCL 2 MG TAB PO PRN (06:47)
[2024-08-25 06:55] LABS: Alanine Aminotransferase 11 U/L (7-40); Albumin 4.1 g/dL (3.2-4.8); Alkaline Phosphatase 92 U/L (46-116); Anion Gap 15 (5-15); Aspartate Aminotransferase 19 U/L (<34); BUN/Creatinine Ratio 8.6 (10.0-20.0); Calcium 9.8 mg/dL (8.7-10.4); Carbon Dioxide 25 mmol/L (20-31); Glucose 106 mg/dL (74-106); Total Protein 6.6 g/dL (5.7-8.2)
[2024-08-25 06:59] LABS: Bilirubin, Total 0.2 mg/dL (0.2-1.0); Blood Urea Nitrogen 62 mg/dL (9-23); Chloride 93 mmol/L (98-107); Potassium 5.3 mmol/L (3.5-5.1); Sodium 133 mmol/L (136-145)
[2024-08-25 07:15] LABS: Hemoglobin 8.4 g/dL (13.5-17.5); Mean Corpuscular Hgb Conc. 34.2 g/dL (32.0-36.0); Platelet Count (auto) 151 10^3/uL (140-450); Red Cell Distribution Width 17.3 % (11.8-14.3); White Blood Cell 3.7 10^3/uL (4.4-10.8)
[2024-08-25 07:17] LABS: Hematocrit 24.5 % (41.0-53.0); Mean Corpuscular Hemoglobin 30.7 pg (28.0-32.0); Mean Corpuscular Volume 89.9 fL (80.0-100.0); Red Blood Cells 2.72 10^6/uL (4.5-5.90)
[2024-08-25 07:24] LABS: Basophils % (manual) 0 (0.0-2.0); Blast Cells 0; Metamyelocytes % 0; Myelocytes % 0; Promyelocytes % 0; Reactive Lymphocytes 0
[2024-08-25 07:45] VITALS: PULSE 83; RESP 20; O2SAT 96
[2024-08-25] MEDS ORDERED: GABAPENTIN 100 MG CAP PO PRN (07:45)
[2024-08-25] MEDS: MORPHINE SULFATE INJ 2 MG/ml SYRG IV PRN (08:05)
[2024-08-25 08:38] LABS: Urine Bacteria None Seen /hpf (None Seen)
[2024-08-25 08:55] LABS: Urine Blood Negative /uL (Negative); Urine Clarity Clear (Clear); Urine Color Light-Yellow (Yellow); Urine Protein, UAD 2+ (Negative); Urine Squamous Epithelial Cell FEW /hpf (<5); Urine Urobilinogen Normal (Negative); Urine WBC 72 /HPF (0-3)
[2024-08-25 08:55] LABS: Band Neutrophils % (manual) 3; Eosinophils % (manual) 9 (0-7); Lymphocytes % (manual) 38 (10.0-50.0); Monocytes % (manual) 10 (0-12); Platelet Estimate Adequate
[2024-08-25] MEDS ORDERED: MEROPENEM 1GM IVPB 50 ML IV SCH (10:00)
[2024-08-25] MEDS: ISOSORBIDE MONONITRATE ER 60 MG TAB PO SCH (10:00)
[2024-08-25] MEDS ORDERED: amLODIPine BESYLATE 5 MG TAB PO SCH (10:00)
[2024-08-25] MEDS: RANOLAZINE ER 500 MG TAB PO SCH (10:07)
[2024-08-25] MEDS: PANTOPRAZOLE 40 MG/10 ML VIAL INJ IV SCH (10:07)
[2024-08-25] MEDS: CLOPIDOGREL BISULFATE 75 MG TAB PO SCH (10:07)
[2024-08-25] MEDS: ALBUTEROL SULF 2.5 MG/0.5ML(0.5%) NEB SOLN NEB ONE (11:25)
[2024-08-25] MEDS: CALCIUM GLUC 1,000mg/50ml-NS 50 ML IV ONE (11:26)
[2024-08-25] MEDS: InsuLIN REG 1unit/0.01ml Soln (100units/ml) IV ONE (11:26)
[2024-08-25] MEDS: SODIUM BICARB 8.4% 50Meq/50ml SYR INJ IV ONE (11:26)
[2024-08-25] MEDS: DEXTROSE (50%) 50ML SYRG IV ONE (11:26)
[2024-08-25] MEDS: amLODIPine BESYLATE 5 MG TAB PO ONE (11:26)
[2024-08-25] MEDS: MEROPENEM 1GM IVPB 50 ML IV ONE (11:31)
--- NOTE | 2024-08-25 13:57 | DVHPN2 ---
Eyes: No Pain, No Vision change, No Conjunctivae inflammation, No Eyelid inflammation, No Other, No Redness ENT: No Ear pain, No Ear discharge, No Nose pain, No Nose discharge, No Nose congestion, No Mouth pain, No Mouth swelling, No Throat pain, No Throat swelling, No Other Cardiovascular: No Chest Pain, No Palpitations, No Orthopnea, No Paroxysmal Noc. Dyspnea, No Edema, No Lt Headedness, No Other Respiratory: No Cough, No Dry, No Shortness of breath, No SOB with excertion, No Wheezing, No Hemoptysis, No Pleuritic Pain, No Sputum, No Other Gastrointestinal: No Nausea, No Vomiting, No Abdominal Pain, No Diarrhea, No Constipation, No Melena, No Hematochezia, No Other Genitourinary: No Dysuria, No Frequency, No Incontinence, No Hematuria, No Retention, No Other Musculoskeletal: No other, No neck pain, No shoulder pain, No arm pain; back pain; No hand pain, No leg pain, No foot pain Skin: No Rash, No Lesions, No Jaundice, No Bruising, No Other Objective Vitals Vital Signs Date Time Temp Pulse Resp B/P (MAP) Pulse Ox O2 Delivery O2 Flow Rate FiO2 08/25/24 12:00 91 08/25/24 11:34 22 114/77 08/25/24 11:00 98.0 95 98.0 08/25/24 08:52 Nasal Cannula* 4 36 Medications Current Medications Medications Dose Ordered Sig/Gerard Route Start Time Stop Time Status Last Admin Dose Admin Ondansetron HCl 4 mg Q4HP PRN IV 08/24/24 21:30 Docusate Sodium 100 mg BIDPRN PRN PO 08/24/24 21:30 Acetaminophen 650 mg Q6HP PRN PO 08/24/24 21:30 Morphine Sulfate 2 mg Q4HPRN PRN IV 08/24/24 21:30 08/25/24 11:34 2 MG Nitroglycerin 0.4 mg Q5MINP PRN SL 08/24/24 21:30 Morphine Sulfate 2 mg Q30M PRN IV 08/24/24 21:30 Furosemide 80 mg BIDD IV 08/24/24 21:45 08/24/24 23:29 80 MG Hydromorphone HCl 2 mg Q6HPRN PRN PO 08/25/24 00:00 08/25/24 06:47 2 MG Cyclobenzaprine HCl 5 mg TID PO 08/25/24 06:00 08/25/24 06:19 5 MG Zirconium Oxide 10 gm TID PO 08/25/24 14:00 08/27/24 06:01 Allopurinol 100 mg QAM PO 08/26/24 07:00 Aspirin 81 mg QAM PO 08/26/24 07:00 Clopidogrel Bisulfate 75 mg DAILY PO 08/25/24 10:00 08/25/24 10:07 75 MG Gabapentin 100 mg TID PRN PO 08/25/24 07:45 Ranolazine 500 mg BID PO 08/25/24 10:00 08/25/24 10:07 500 MG Isosorbide Mononitrate 60 mg DAILY PO 08/25/24 10:00 Pantoprazole Sodium 40 mg DAILY IV 08/25/24 10:00 08/25/24 10:07 40 MG Amlodipine Besylate 10 mg DAILY PO 08/26/24 10:00 Meropenem 50 ml @ 17 mls/hr DAILY@2100 IV 08/26/24 21:00 Laboratory Results Laboratory Tests 08/25/24 06:13 Chemistry Test 08/24/24 15:14 08/25/24 06:13 Albumin 4.3 g/dL (3.2-4.8) 4.1 g/dL (3.2-4.8) Calcium Level 10.5 mg/dL (8.7-10.4) H 9.8 mg/dL (8.7-10.4) Total Protein 7.0 g/dL (5.7-8.2) 6.6 g/dL (5.7-8.2) Cardiac Markers Test 08/24/24 15:14 B-Type Natriuretic Peptide 1779.22 pg/mL (0-100) LFT Test 08/24/24 15:14 08/25/24 06:13 Alanine Aminotransferase (ALT) 9 U/L (7-40) 11 U/L (7-40) Alkaline Phosphatase 100 U/L (46-116) 92 U/L (46-116) Aspartate Amino Transferase (AST) 18 U/L (<34) 19 U/L (<34) Total Bilirubin 0.3 mg/dL (0.2-1.0) 0.2 mg/dL (0.2-1.0) Urinalysis Test 08/25/24 07:45 Urine Color Light-yellow (Yellow) Urine Clarity Clear (Clear) Urine pH 8.0 (5.0-9.0) Urine Specific [place] 1.010 (1.001-1.035) Urine Protein 2+ (Negative) H Urine Ketones Negative (Negative) Urine Blood Negative /uL (Negative) Urine Nitrite Negative (Negative) Urine Bilirubin Negative (Negative) Urine Urobilinogen Normal mg/dL (Negative) Urine Leukocyte Esterase 2+ /uL (Negative) Urine RBC 3 /hpf (0 - 3) Urine Microscopic WBC 72 /HPF (0-3) H Urine Squamous Epithelial Cells Few /hpf (<5) Urine Bacteria None seen /hpf (None Seen) Urine Glucose Trace mg/dL (Normal) AUDREY BIRD MD Aug 25, 2024 13:57
[2024-08-25] MEDS ORDERED: VANCOMYCIN PER PHARMACY 0 MG IV SCH (14:00)
[2024-08-25] MEDS: SODIUM ZIRCONIUM CYCL 10 GM PAK PO SCH (14:27)
--- NOTE | 2024-08-25 15:28 | DVHINCON2 ---
Date of service: Aug 25, [address] Ching History of Present Illness 59-year-old patient with significant history of end-stage renal disease on hemodialysis TTS who missed dialysis last week Tuesday hence only had dialysis on when 4 L were removed, he has a history of CAD, hypertension, diabetes type 2, spinal stenosis status post spinal surgery, chronic hyperkalemia, who presents to the hospital with concerns for possible endocarditis after a murmur was detected on a routine checkup as Dr. Sandoval. He denies any fever chills but has had dyspnea on exertion with the usual and he has chronic back pain. Initial labs revealed findings consistent with end-stage renal disease, mild hyperkalemia, chest x-ray with pulmonary edema. Past Medical History COPD, CAD End-stage renal disease on hemodialysis TTS, spinal stenosis stenosis, hyperlipidemia, hypertension, chronic hypoxic respiratory failure, chronic pain. Past Surgical History Spine surgery, left upper arm AV fistula creation. Allergies: Coded Allergies: Penicillins (Verified Allergy, Unknown, 09/19/23) Tetanus Toxoid (Verified Allergy, Unknown, 09/19/23) Home Meds Active Scripts Hydromorphone Hcl (Dilaudid) 2 Mg Tab, 1 TAB PO TID PRN, #40 TAB Prov:SHARMIN AN MD 08/16/24 Cyclobenzaprine Hcl (Cyclobenzaprine Hcl) 5 Mg Tab, 1 TAB PO TID PRN, #30 TAB Prov:SHARMIN AN MD 07/30/24 Hydromorphone Hcl (Dilaudid) 2 Mg Tab, 1 TAB PO TID PRN, #40 TAB Prov:SHARMIN AN MD 07/30/24 Clopidogrel Bisulfate (CLOPIDOGREL) 75 Mg Tab, 75 MG PO DAILY for 30 Days, #30 TAB Prov:LEÓN COLLINS MD 08/16/23 Reported Medications Patiromer Sorbitex Calcium (Veltassa) 8.4 Gm Pow, 1 PKT PO DAILY 07/12/24 Colchicine (Mitigare) 0.6 Mg Cap, 0.6 MG PO PRN for for gout, CAP 07/12/24 Albuterol Sulfate (VENTOLIN MDI) 90 Mcg Ih, 2 PUFF IN Q6HPRN PRN for wheezing, INH 07/12/24 Losartan Potassium (Cozaar) 100 Mg Tab, 300 MG PO DAILY, TAB 07/12/24 Ipratropium-Albuterol (Ipratropium Ullin/Albut) 1 Jacob Jacob, 1 JACOB IN QIDPRN PRN for SHORTNESS OF BREATH, ML 07/12/24 Clonidine Hydrochloride (Clonidine Hcl) 0.1 Mg Tab, 1 TAB PO PRN for SBP>160 04/17/24 Furosemide (Lasix) 40 Mg Tab, 40 MG PO DAILY, TAB 03/04/24 Amlodipine Besylate (NORVASC TABLET) 5 Mg Tb, 2 TAB PO DAILY, #30 TAB 5 Refills 03/04/24 Isosorbide Mononitrate (Isosorbide Mononitrate Er) 30 Mg Tab, 60 MG PO DAILY for CAD 09/19/23 Calcium Acetate (Phosphate Bin (Calcium Acetate) 667 Mg Cap, 667 MG PO TIDWM for DIALYSIS, MG 09/19/23 Atorvastatin Calcium (ATORVASTATIN CALCIUM) 40 Mg Tab, 1 TAB PO DAILY for HIGH CHOLESTEROL, #30 TAB 5 Refills 09/19/23 Nwprafwcjn-Enqjwraidraifj-Mcex (Breztri Aerosphere 160-9-4.8 Mcg/Act) 1 Aer Aer, 1 AER IN BID for COPD, AER 09/19/23 Albuterol Sulfate (Ventolin) 2.5 Mg/3 Ml Nb, 2.5 MG NEB Q4HP PRN for SHORTNESS OF BREATH, INH 09/19/23 Ranolazine (Ranolazine ER) 500 Mg Tab, 500 MG PO BID for CAD, TAB 09/19/23 Diazepam (VALIUM TABLET) 5 Mg Tb, 2 TAB PO PRN PRN for onset seizure, TAB 08/14/23 Hydralazine Hcl (Hydralazine Hcl) 100 Mg Tab, 1 TAB PO TID, #90 TAB 5 Refills 08/14/23 Gabapentin (Gabapentin) 100 Mg Cap, 2 CAP PO TID PRN for onset seizure , #90 CAP 2 Refills Take with diazepam. 08/14/23 Pantoprazole Sodium Sesquihydr (Protonix) 40 Mg Tab, 40 MG PO QAM, #30 TAB 08/14/23 Aspirin (Aspir-81) 81 Mg Tab, 1 TAB PO QAM, #30 TAB 5 Refills 08/14/23 Allopurinol (ZYLOPRIM TABLET) 100 Mg Tb, 1 TAB PO QAM, #30 TAB 5 Refills 08/14/23 Current Medications Current Medications Medications (Trade) Dose Ordered Sig/Gerard Route PRN Reason Start Time Stop Time Status Last Admin Ondansetron HCl (Zofran) 4 mg Q4HP PRN IV NAUSEA / VOMITING 08/24/24 21:30 Docusate Sodium (Colace Capsule) 100 mg BIDPRN PRN PO FOR CONSTIPATION 08/24/24 21:30 Acetaminophen (Tylenol Tablet) 650 mg Q6HP PRN PO PAIN SCALE 1-3 OR TEMP>100.4 08/24/24 21:30 Morphine Sulfate 2 mg Q4HPRN PRN IV SEVERE PAIN (7-10 PAIN SCALE) 08/24/24 21:30 08/25/24 11:34 Nitroglycerin (Ntrostat Sublingual) 0.4 mg Q5MINP PRN SL FOR CHEST PAIN 08/24/24 21:30 Morphine Sulfate 2 mg Q30M PRN IV FOR CHEST PAIN 08/24/24 21:30 Furosemide (Lasix Injection) 80 mg BIDD IV 08/24/24 21:45 08/24/24 23:29 Hydromorphone HCl (Dilaudid Tablet) 2 mg Q6HPRN PRN PO MODERATE PAIN (4-6 PAIN SCALE) 08/25/24 00:00 08/25/24 06:47 Cyclobenzaprine HCl (Flexeril Tablet) 5 mg TID PO 08/25/24 06:00 08/25/24 14:27 Zirconium Oxide (Lokelma) 10 gm TID PO 08/25/24 14:00 08/27/24 06:01 08/25/24 14:27 Allopurinol (Zyloprim Tablet) 100 mg QAM PO 08/26/24 07:00 Amlodipine Besylate (Norvasc Tablet) 10 mg DAILY PO 08/25/24 10:00 08/25/24 11:07 DC Aspirin (Ecotrin Enteric Coated Tablet) 81 mg QAM PO 08/26/24 07:00 Clopidogrel Bisulfate (Plavix) 75 mg DAILY PO 08/25/24 10:00 08/25/24 10:07 Gabapentin (Neurontin Capsule) 100 mg TID PRN PO BACK pain 08/25/24 07:45 Ranolazine (Ranexa ER) 500 mg BID PO 08/25/24 10:00 08/25/24 10:07 Isosorbide Mononitrate (Imdur Er Tablet) 60 mg DAILY PO 08/25/24 10:00 Pantoprazole Sodium (Protonix) 40 mg DAILY IV 08/25/24 10:00 08/25/24 10:07 Meropenem 50 ml @ 17 mls/hr DAILY IV 08/25/24 10:00 08/25/24 10:27 DC Meropenem 50 ml @ 17 mls/hr POSTDI@1800 IV 08/26/24 18:00 08/25/24 13:38 DC Amlodipine Besylate (Norvasc Tablet) 10 mg DAILY PO 08/26/24 10:00 Meropenem 50 ml @ 17 mls/hr DAILY@2100 IV 08/26/24 21:00 Vancomycin HCl 0 ml @ 0 mls/hr UD IV 08/25/24 14:00 Family History: Diabetes mellitus G8 MOTHER, Onset:Unknown G8 FATHER, Onset:Unknown Fibromyalgia G8 MOTHER Hypertension G8 MOTHER G8 FATHER, Onset:Unknown Social History Patient lives with his he denies smoking alcohol or drug abuse Review of Systems HEENT: Oral mucosa dry Neck no JVD Cardiovascular: Positive for shortness of breath and orthopnea Respiratory: Positive for shortness of breath Gastrointestinal: Denies for nausea vomiting Musculoskeletal: Denies myalgias Positive for chronic back pain Neurological: Denies focal weakness Dermatological: Denies any rash The rest of the review of systems were reviewed pertinent positives and pertinent negatives are as per HPI up to 12 points review of systems H&P Exam Vital Signs/I&O Vital Sign Date Time Temp Pulse Resp B/P (MAP) Pulse Ox O2 Delivery O2 Flow Rate FiO2 08/25/24 14:00 88 19 142/79 (100) 97 08/25/24 11:00 98.0 98.0 08/25/24 08:52 Nasal Cannula* 4 36 Physical Exam HEENT: No evidence of JVD, no oral ulcers. Pulmonary: Lungs are clear on auscultation bilaterally Cardiovascular S1-S2, no S3 or S4 Abdomen: Bowel sounds positive, soft no rebound tenderness Skin: No rash Neurological: Alert, oriented, no focal weakness Musculoskeletal: Back with a dressing covering the mid back no evidence of bleeding Left upper arm AV fistula positive thrill and bruit Labs/Diagnostic Data Labs/Diagnostic Data Laboratory Tests Test 08/25/24 07:45 08/25/24 06:13 08/24/24 18:56 08/24/24 16:28 Range/Units Urine Color Light-yellow Yellow Urine Clarity Clear Clear Urine pH 8.0 5.0-9.0 Urine Specific [place] 1.010 1.001-1.035 Urine Protein 2+ H Negative Urine Ketones Negative Negative Urine Blood Negative Negative /uL Urine Nitrite Negative Negative Urine Bilirubin Negative Negative Urine Urobilinogen Normal Negative mg/dL Urine Leukocyte Esterase 2+ Negative /uL Urine RBC 3 0 - 3 /hpf Urine Microscopic WBC 72 H 0-3 /HPF Urine Squamous Epithelial Cells Few <5 /hpf Urine Bacteria None seen None Seen /hpf Urine Glucose Trace Normal mg/dL White Blood Count 3.7 L 4.4-10.8 10^3/uL Red Blood Count 2.72 L 4.5-5.90 10^6/uL Hemoglobin 8.4 L 13.5-17.5 g/dL Hematocrit 24.5 L 41.0-53.0 % Mean Corpuscular Volume 89.9 80.0-100.0 fL Mean Corpuscular Hemoglobin 30.7 28.0-32.0 pg Mean Corpuscular Hemoglobin Concent 34.2 32.0-36.0 g/dL Red Cell Distribution Width 17.3 H 11.8-14.3 % Platelet Count 151 140-450 10^3/uL Mean Platelet Volume 7.5 6.9-10.8 fL Neutrophils (%) (Auto) 37.0-80.0 % Lymphocytes (%) (Auto) 10.0-50.0 % Monocytes (%) (Auto) 0.0-12.0 % Eosinophils (%) (Auto) 0.0-7.0 % Basophils (%) (Auto) 0.0-2.0 % Neutrophils # (Auto) 1.6-8.6 10 ^3/uL Lymphocytes # (Auto) 0.4-5.4 10 ^3/uL Monocytes # (Auto) 0-1.3 10 ^3/uL Differential Total Cells Counted 100.0 100 Neutrophils % (Manual) 40 37.0-80.0 Band Neutrophils % (Manual) 3 Lymphocytes % (Manual) 38 10.0-50.0 Monocytes % (Manual) 10 0-12 Eosinophils % (Manual) 9 H 0-7 Basophils % (Manual) 0 0.0-2.0 Metamyelocytes % (manual) 0 Myelocytes % (Manual) 0 Promyelocytes % (Manual) 0 Blast Cells % (Manual) 0 Reactive Lymphocytes 0 Platelet Estimate Adequate Sodium Level 133 L 136-145 mmol/L Potassium Level 5.3 H 5.3 H 3.5-5.1 mmol/L Chloride Level 93 L 98-107 mmol/L Carbon Dioxide Level 25 20-31 mmol/L Anion Gap 15 5-15 Blood Urea Nitrogen 62 H 9-23 mg/dL Creatinine 7.21 H 0.700-1.30 mg/dL Glomerular Filtration Rate Calc 8 >90 mL/min BUN/Creatinine Ratio 8.6 L 10.0-20.0 Serum Glucose 106 74-106 mg/dL Calcium Level 9.8 8.7-10.4 mg/dL Total Bilirubin 0.2 0.2-1.0 mg/dL Aspartate Amino Transferase (AST) 19 <34 U/L Alanine Aminotransferase (ALT) 11 7-40 U/L Alkaline Phosphatase 92 46-116 U/L Total Protein 6.6 5.7-8.2 g/dL Albumin 4.1 3.2-4.8 g/dL Troponin I High Sensitivity 28 76 *H </=54 ng/L Test 08/24/24 15:14 Range/Units White Blood Count 3.8 L 4.4-10.8 10^3/uL Red Blood Count 2.80 L 4.5-5.90 10^6/uL Hemoglobin 8.6 L 13.5-17.5 g/dL Hematocrit 25.3 L 41.0-53.0 % Mean Corpuscular Volume 90.1 80.0-100.0 fL Mean Corpuscular Hemoglobin 30.8 28.0-32.0 pg Mean Corpuscular Hemoglobin Concent 34.2 32.0-36.0 g/dL Red Cell Distribution Width 17.2 H 11.8-14.3 % Platelet Count 165 140-450 10^3/uL Mean Platelet Volume 7.3 6.9-10.8 fL Neutrophils (%) (Auto) 37.0-80.0 % Lymphocytes (%) (Auto) 10.0-50.0 % Monocytes (%) (Auto) 0.0-12.0 % Basophils (%) (Auto) 0.0-2.0 % Neutrophils # (Auto) 1.6-8.6 10 ^3/uL Lymphocytes # (Auto) 0.4-5.4 10 ^3/uL Monocytes # (Auto) 0-1.3 10 ^3/uL Differential Total Cells Counted 100.0 100 Neutrophils % (Manual) 55 37.0-80.0 Band Neutrophils % (Manual) 0 Lymphocytes % (Manual) 11 10.0-50.0 Monocytes % (Manual) 19 H 0-12 Eosinophils % (Manual) 13 H 0-7 Basophils % (Manual) 0 0.0-2.0 Metamyelocytes % (manual) 0 Myelocytes % (Manual) 0 Promyelocytes % (Manual) 0 Blast Cells % (Manual) 2 Reactive Lymphocytes 0 Platelet Estimate Adequate Erythrocyte Sedimentation Rate 50 H 0-20 mm/hr Sodium Level 134 L 136-145 mmol/L Potassium Level 5.9 *H 3.5-5.1 mmol/L Chloride Level 94 L 98-107 mmol/L Carbon Dioxide Level 29 20-31 mmol/L Anion Gap 11 5-15 Blood Urea Nitrogen 54 H 9-23 mg/dL Creatinine 6.73 H 0.700-1.30 mg/dL Glomerular Filtration Rate Calc 9 >90 mL/min BUN/Creatinine Ratio 8.0 L 10.0-20.0 Serum Glucose 121 H 74-106 mg/dL Lactic Acid Level 1.3 0.4-2.0 mmol/L Calcium Level 10.5 H 8.7-10.4 mg/dL Total Bilirubin 0.3 0.2-1.0 mg/dL Aspartate Amino Transferase (AST) 18 <34 U/L Alanine Aminotransferase (ALT) 9 7-40 U/L Alkaline Phosphatase 100 46-116 U/L Troponin I High Sensitivity 30 </=54 ng/L C-Reactive Protein High Sensitivity 15.83 H <1.0 mg/dL B-Type Natriuretic Peptide 1779.22 0-100 pg/mL Total Protein 7.0 5.7-8.2 g/dL Albumin 4.3 3.2-4.8 g/dL Chest x-ray shows pulmonary vascular congestion Assessment Assessment: 1. End-stage renal disease on hemodialysis TTS via left upper arm AV fistula 2. Hyperkalemia 3. Fluid overload 4. Anemia end-stage renal disease 5. Coronary artery disease 6. Chronic hypoxic respiratory failure 7. Back pain 8. Spinal stenosis status post spinal surgery Plan: Hemodialysis today and TTS Low-potassium diet, renal diet. Fluid restriction less than 1 L per day. Cardiology consultation appreciated Kody to get the goal hemoglobin of 10 grams/deciliter to 11 grams/deciliter Spine surgery consultation Compliance with his dialysis treatment was discussed Thank you very much for allowing us to participate in the care of this patient Plan discussed with: Patient, Spouse TOMÁS RODARTE MD Aug 25, 2024 15:28
[2024-08-25] MEDS ORDERED: HEPARIN 1,000 UNITS/ml 1ML VIAL IV ONE ×2 (15:30)
[2024-08-25 15:49] VITALS: BP 155/74; PULSE 92; RESP 16; TEMP 97.8; O2SAT 92
[2024-08-25 16:10] VITALS: BP 155/74; PULSE 86; RESP 20; TEMP 97.8; O2SAT 92
[2024-08-25 16:35] VITALS: BP 177/68; PULSE 81; RESP 16; TEMP 97.8; O2SAT 92
[2024-08-25] MEDS: ACETAMINOPHEN 325 MG TAB PO PRN (18:27)
--- NOTE | 2024-08-25 19:22 | DVHSR ---
APPROVED REPORT EXAM: Two-dimensional and M-mode echocardiogram with Doppler and color Doppler. Blood Pressure: 144/27 mmHg INDICATION Rule out structural heart disease RISK FACTORS Height: 6' 2", Weight: 203 DIMENSIONS LVDd6.0 (3.8-5.7cm)LA (2D)4.6 (1.9-4.0cm)Aortic Root3.6 (2.0-3.7cm) LVDs5.0 (2.5-4.0cm)LA (MM) (1.9-4.0cm)Aortic Cusp Exc1.6 (1.5-2.0cm) EF (%) 40.0 (55-70%)Rt. Atrium5.4 (1.9-4.0cm)Asc. Aorta cm IVSd1.5 (0.7-1.1cm)RV (D) (1.8-2.4cm) PWd1.3 (0.7-1.1cm) Mitral Valve MitralMitral Stenosis E wave1.80m/sMV Mean GR.mmHg A wave0.90m/sMV Peak GR.mmHg E/A ratio2.02D MVAcm2 Aortic Valve Aortic ValveAortic Stenosis V11.10m/Elizabeth Mean GR.10mmHg V22.00m/Elizabeth Peak GR.17mmHg LVOT Diameter2.5 (1.8-2.4cm)Doppler AVA2.70cm2 AI P 1/2 Sbrh359.19ms Pulmonic Valve V20.80m/s Tricuspid Valve TR Velocity3.60m/s [id number] Conclusion SLIGHTLY DILATED LV LV EF IS 45% AND IS BORDERLINE REDUCED HYPOKINESIS OF DISTAL HALF OF IVS AND ANTERIOR WALL SLIGHTLY DILATED RV AND RA SEVERE PULMONARY HYPERTENSION RVSP IS 70 MM OF HG AND IS VERY HIGH NORMAL VALVES NO EFFUSION
[2024-08-25 20:00] VITALS: PULSE 82; PULSE 85; RESP 18; O2SAT 92
[2024-08-25 21:00] VITALS: BP 156/33; PULSE 82; RESP 18; TEMP 97.8; O2SAT 92
[2024-08-25] MEDS: VANCOMYCIN 1.5GM/300ML 300 ML IV ONE (22:57)
[2024-08-26 05:00] VITALS: BP 167/73; PULSE 83; RESP 19; TEMP 97.9; O2SAT 95
[2024-08-26] MEDS: ASPirin-EC 81 mg tab PO SCH (06:25)
[2024-08-26] MEDS: ALLOPURINOL 100 MG TAB PO SCH (06:26)
[2024-08-26 08:00] VITALS: PULSE 85
[2024-08-26 09:00] VITALS: BP 161/53; PULSE 84; RESP 16; TEMP 97.9; O2SAT 93
[2024-08-26] MEDS: amLODIPine BESYLATE 5 MG TAB PO SCH (10:21)
[2024-08-26 13:00] VITALS: BP 169/72; PULSE 83; RESP 18; TEMP 98; O2SAT 92
[2024-08-26] MEDS ORDERED: HYDROmorphone HCL 2 MG TAB PO PRN (14:15)
--- NOTE | 2024-08-26 14:24 | DVHDS2 ---
Discharge Summary Date of Admission Aug 24, 2024 at 21:22 Date of Discharge: Aug 26, 2024 Labs/Diagnostic Data: Laboratory Results Test 08/26/24 06:30 08/25/24 19:44 08/25/24 07:45 08/25/24 06:13 Creatinine 5.22 mg/dL (0.700-1.30) Glomerular Filtration Rate Calc 12 mL/min (>90) Random Vancomycin Level 29.4 ug/mL (5-10) Potassium Level 3.7 mmol/L (3.5-5.1) Urine Color Light-yellow (Yellow) Urine Clarity Clear (Clear) Urine pH 8.0 (5.0-9.0) Urine Specific [place] 1.010 (1.001-1.035) Urine Protein 2+ (Negative) Urine Ketones Negative (Negative) Urine Blood Negative /uL (Negative) Urine Nitrite Negative (Negative) Urine Bilirubin Negative (Negative) Urine Urobilinogen Normal mg/dL (Negative) Urine Leukocyte Esterase 2+ /uL (Negative) Urine RBC 3 /hpf (0 - 3) Urine Microscopic WBC 72 /HPF (0-3) Urine Squamous Epithelial Cells Few /hpf (<5) Urine Bacteria None seen /hpf (None Seen) Urine Glucose Trace mg/dL (Normal) White Blood Count 3.7 10^3/uL (4.4-10.8) Red Blood Count 2.72 10^6/uL (4.5-5.90) Hemoglobin 8.4 g/dL (13.5-17.5) Hematocrit 24.5 % (41.0-53.0) Mean Corpuscular Volume 89.9 fL (80.0-100.0) Mean Corpuscular Hemoglobin 30.7 pg (28.0-32.0) Mean Corpuscular Hemoglobin Concent 34.2 g/dL (32.0-36.0) Red Cell Distribution Width 17.3 % (11.8-14.3) Platelet Count 151 10^3/uL (140-450) Mean Platelet Volume 7.5 fL (6.9-10.8) Neutrophils (%) (Auto) % (37.0-80.0) Lymphocytes (%) (Auto) % (10.0-50.0) Monocytes (%) (Auto) % (0.0-12.0) Eosinophils (%) (Auto) % (0.0-7.0) Basophils (%) (Auto) % (0.0-2.0) Neutrophils # (Auto) 10 ^3/uL (1.6-8.6) Lymphocytes # (Auto) 10 ^3/uL (0.4-5.4) Monocytes # (Auto) 10 ^3/uL (0-1.3) Differential Total Cells Counted 100.0 (100) Neutrophils % (Manual) 40 (37.0-80.0) Band Neutrophils % (Manual) 3 Lymphocytes % (Manual) 38 (10.0-50.0) Monocytes % (Manual) 10 (0-12) Eosinophils % (Manual) 9 (0-7) Basophils % (Manual) 0 (0.0-2.0) Metamyelocytes % (manual) 0 Myelocytes % (Manual) 0 Promyelocytes % (Manual) 0 Blast Cells % (Manual) 0 Reactive Lymphocytes 0 Platelet Estimate Adequate Sodium Level 133 mmol/L (136-145) Chloride Level 93 mmol/L (98-107) Carbon Dioxide Level 25 mmol/L (20-31) Anion Gap 15 (5-15) Blood Urea Nitrogen 62 mg/dL (9-23) BUN/Creatinine Ratio 8.6 (10.0-20.0) Serum Glucose 106 mg/dL (74-106) Calcium Level 9.8 mg/dL (8.7-10.4) Total Bilirubin 0.2 mg/dL (0.2-1.0) Aspartate Amino Transferase (AST) 19 U/L (<34) Alanine Aminotransferase (ALT) 11 U/L (7-40) Alkaline Phosphatase 92 U/L (46-116) Total Protein 6.6 g/dL (5.7-8.2) Albumin 4.1 g/dL (3.2-4.8) Test 08/24/24 18:56 08/24/24 15:14 Troponin I High Sensitivity 28 ng/L (</=54) Erythrocyte Sedimentation Rate 50 mm/hr (0-20) Lactic Acid Level 1.3 mmol/L (0.4-2.0) C-Reactive Protein High Sensitivity 15.83 mg/dL (<1.0) B-Type Natriuretic Peptide 1779.22 pg/mL (0-100) Other Laboratory Tests 08/26/24 06:30 08/25/24 19:44 08/25/24 06:13 Final Diagnosis/Problems List chf Discharge Disposition: Home with Health Services Discharge Instruct/Medications Diet: Cardiac 2g Na,low cholest Activity: No Restrictions, As Tolerated Follow Up/Referral: pcp 1-2 weeks nephrology per schedule Medications: Resume home meds. Discharge Statement: "Patient was advised to return to the ER or call 911 if any headaches, dizziness, shortness of breath, chest pain, abdominal pain, bleeding, fevers, or worsening of medical condition. Patient was counseled about treatment plan, medications, possible side effects, patientverbalized understanding. All questions were answered to the best of my ability. This discharge took greater then 30 minutes in planning, reviewing documentation, counseling the patient, and discussing with other team members." ASSESSMENT ASSESSMENT Assessment chf AUDREY BIRD MD Aug 26, 2024 14:24
--- NOTE | 2024-08-26 15:09 | DVHPN2 ---
Progress Note - Dictate Date Seen: Aug 26, 2024 Has the PT tested + for MRSA If YES, has PT been informed?: No Medical Necessity Reason Pt with a Central, PICC or Fol: No Subjective Patient's breathing is improved. vital signs Vital Sign Date Time Temp Pulse Resp B/P (MAP) Pulse Ox O2 Delivery O2 Flow Rate FiO2 08/26/24 13:00 98.0 83 18 169/72 (104) 92 98.0 08/25/24 20:00 Nasal Cannula* 4 36 Total Intake and Output 08/25/24 08/25/24 08/26/24 15:00 23:00 07:00 Intake Total 51 ml 0 ml 150 ml Balance 51 ml 0 ml 150 ml medications Current Medications Medications Dose Ordered Sig/Gerard Route Start Time Stop Time Status Last Admin Dose Admin Ondansetron HCl 4 mg Q4HP PRN IV 08/24/24 21:30 Docusate Sodium 100 mg BIDPRN PRN PO 08/24/24 21:30 Acetaminophen 650 mg Q6HP PRN PO 08/24/24 21:30 08/25/24 18:27 650 MG Morphine Sulfate 2 mg Q4HPRN PRN IV 08/24/24 21:30 08/25/24 11:34 2 MG Nitroglycerin 0.4 mg Q5MINP PRN SL 08/24/24 21:30 Morphine Sulfate 2 mg Q30M PRN IV 08/24/24 21:30 Furosemide 80 mg BIDD IV 08/24/24 21:45 08/26/24 06:28 80 MG Cyclobenzaprine HCl 5 mg TID PO 08/25/24 06:00 08/26/24 14:12 5 MG Zirconium Oxide 10 gm TID PO 08/25/24 14:00 08/27/24 06:01 08/26/24 14:12 10 GM Allopurinol 100 mg QAM PO 08/26/24 07:00 08/26/24 06:26 100 MG Aspirin 81 mg QAM PO 08/26/24 07:00 08/26/24 06:25 81 MG Clopidogrel Bisulfate 75 mg DAILY PO 08/25/24 10:00 08/26/24 10:19 75 MG Gabapentin 100 mg TID PRN PO 08/25/24 07:45 Ranolazine 500 mg BID PO 08/25/24 10:00 08/26/24 10:19 500 MG Isosorbide Mononitrate 60 mg DAILY PO 08/25/24 10:00 08/26/24 10:19 60 MG Pantoprazole Sodium 40 mg DAILY IV 08/25/24 10:00 08/26/24 10:19 40 MG Amlodipine Besylate 10 mg DAILY PO 08/26/24 10:00 08/26/24 10:21 10 MG Meropenem 50 ml @ 17 mls/hr DAILY@2100 IV 08/26/24 21:00 Vancomycin HCl 0 ml @ 0 mls/hr UD IV 08/25/24 14:00 Hydromorphone HCl 4 mg Q6HPRN PRN PO 08/26/24 14:15 UNV objective HEENT: No evidence of JVD, no oral ulcers. Pulmonary: Lungs are clear on auscultation bilaterally Cardiovascular S1-S2, no S3 or S4 Abdomen: Bowel sounds positive, soft no rebound tenderness Skin: No rash Neurological: Alert, oriented, no focal weakness Access left upper arm AV fistula positive bruit and thrill laboratory and microbiology Laboratory Tests 08/26/24 06:30 08/25/24 19:44 08/25/24 06:13 Test 08/25/24 06:13 Range/Units Serum Glucose 106 74-106 mg/dL Assessment/Plan Assessment: 1. End-stage renal disease on hemodialysis TTS via left upper arm AV fistula 2. Hyperkalemia, improved with dialysis 3. Fluid overload, improved with dialysis 4. Anemia end-stage renal disease 5. Coronary artery disease 6. Chronic hypoxic respiratory failure 7. Back pain 8. Spinal stenosis status post spinal surgery Plan: Hemodialysis today and TTS Daily CBC, BMP Low-potassium diet, renal diet. Fluid restriction less than 1 L per day. Cardiology consultation appreciated Kody to get the goal hemoglobin of 10 grams/deciliter to 11 grams/deciliter Spine surgery consultation Compliance with his dialysis treatment was discussed Thank you very much for allowing us to participate in the care of this patient Dietary Evaluation Review Comments: 1) Initiate Dialyvite @ 1 tb qd 2) Advance to 60g CCHO 2g K renal diet when medically feasible, pending ST approval 3) Encourage optimal PO intake 4) Follow-up with cardiology, pulmonology, and nephrology 5) Continue to monitor I&O, labs, and skin integrity Expected Outcomes/Goals: 1) diet to advance 2) wounds and labs to improve 2) f/u in 3-5 days Plan discussed with: Patient TOMÁS RODARTE MD Aug 26, 2024 15:09
[2024-08-26] MEDS ORDERED: MEROPENEM 1GM IVPB 50 ML IV SCH ×2 (18:00→21:00)
== END 2024-08-26 16:02 | disposition left against medical advice (07) | DRG 640 ==
LOC: ER 14:34 → EDUNIT# 14:34 → EDBD 14:34 → OVERFLOW 21:22 → TELE-WESTW 08-25 15:40
PROVIDERS: ATTEND Internal Medicine Nephrology
PROC: 5A1D70Z Performance of Urinary Filtration, Intermittent, Less than 6 Hours Per Day (ICD-10-PCS; principal; 2024-08-24)
DX: E87.5 Hyperkalemia (principal); I50.23 Acute on chronic systolic (congestive) heart failure; N18.6 End stage renal disease; J15.69 Pneumonia due to other Gram-negative bacteria; J15.9 Unspecified bacterial pneumonia; I13.2 Hypertensive heart and chronic kidney disease with heart failure and with stage 5 chronic kidney disease, or end stage renal disease; J96.11 Chronic respiratory failure with hypoxia; J44.0 Chronic obstructive pulmonary disease with (acute) lower respiratory infection; E87.1 Hypo-osmolality and hyponatremia; I35.8 Other nonrheumatic aortic valve disorders; E11.22 Type 2 diabetes mellitus with diabetic chronic kidney disease; R79.89 Other specified abnormal findings of blood chemistry; E78.5 Hyperlipidemia, unspecified; G89.29 Other chronic pain; F17.210 Nicotine dependence, cigarettes, uncomplicated; I27.20 Pulmonary hypertension, unspecified; D63.1 Anemia in chronic kidney disease; I25.10 Atherosclerotic heart disease of native coronary artery without angina pectoris; M79.7 Fibromyalgia; Z95.5 Presence of coronary angioplasty implant and graft; Z99.2 Dependence on renal dialysis; Z83.3 Family history of diabetes mellitus; Z82.49 Family history of ischemic heart disease and other diseases of the circulatory system; Z53.29 Procedure and treatment not carried out because of patient's decision for other reasons
CPT/HCPCS: 36415; 71045; 80053; 80202; 81001; 82565; 83605; 83880; 84132; 84484; 85007; 85027; 85652; 86141; 87040; 87081; 90935; 93005; 93306; 94640; 96365; 96375; 99291; G0378; J2185; J2470

== ENCOUNTER 2024-10-17 08:22 | Inpatient (IN) | payer MEDICARE ==
[~2024-10-17] VITALS: Ht 188 cm; Wt 106.6 kg
[2024-10-17 08:45] VITALS: PULSE 102; RESP 19; O2SAT 100
--- NOTE | 2024-10-17 10:01 | ED.PDOC ---
Musculoskeletal HPI Comments 59 year old male presents to the ED via EMS with a chief complaint of RT hip pain s/p fall onset 3 days. Patient states he was walking with walker, tripped, fell and landed on RT side. Since then, patient has been experiencing RT hip pain, rates pain 10/10, is not able to sleep due to pain. Patient is on dialysis, is not sure when his last treatment was, currently experiencing generalized weakness. PMHx HTN, ESRD, DM. Denies LOC, head injury, fevers, chills, nausea, vomiting, diarrhea, abdominal pain, chest pain,shortness of breath, dizziness, numbness/tingling. No other symptoms or modifying factors present at this time. Chief Complaint: Lower Extremity Time Seen by MD: 09:50 Primary Care Provider: UNKNOWN Reviewed Notes: Medications, Allergies Allergies: Coded Allergies: Penicillins (Verified Allergy, Unknown, 10/17/24) Home Meds Active Scripts Hydromorphone Hcl (Dilaudid) 2 Mg Tab, 1 TAB PO TID PRN, #40 TAB Prov:SHARMIN AN MD 08/16/24 Cyclobenzaprine Hcl (Cyclobenzaprine Hcl) 5 Mg Tab, 1 TAB PO TID PRN, #30 TAB Prov:SHARMIN AN MD 07/30/24 Hydromorphone Hcl (Dilaudid) 2 Mg Tab, 1 TAB PO TID PRN, #40 TAB Prov:SHARMIN AN MD 07/30/24 Clopidogrel Bisulfate (CLOPIDOGREL) 75 Mg Tab, 75 MG PO DAILY for 30 Days, #30 TAB Prov:LEÓN COLLINS MD 08/16/23 Reported Medications Patiromer Sorbitex Calcium (Veltassa) 8.4 Gm Pow, 1 PKT PO DAILY 07/12/24 Colchicine (Mitigare) 0.6 Mg Cap, 0.6 MG PO PRN for for gout, CAP 07/12/24 Albuterol Sulfate (VENTOLIN MDI) 90 Mcg Ih, 2 PUFF IN Q6HPRN PRN for wheezing, INH 07/12/24 Losartan Potassium (Cozaar) 100 Mg Tab, 300 MG PO DAILY, TAB 07/12/24 Ipratropium-Albuterol (Ipratropium Stanford/Albut) 1 Jacob Jacob, 1 JACOB IN QIDPRN PRN for SHORTNESS OF BREATH, ML 07/12/24 Clonidine Hydrochloride (Clonidine Hcl) 0.1 Mg Tab, 1 TAB PO PRN for SBP>160 04/17/24 Furosemide (Lasix) 40 Mg Tab, 40 MG PO DAILY, TAB 03/04/24 Amlodipine Besylate (NORVASC TABLET) 5 Mg Tb, 2 TAB PO DAILY, #30 TAB 5 Refills 03/04/24 Isosorbide Mononitrate (Isosorbide Mononitrate Er) 30 Mg Tab, 60 MG PO DAILY for CAD 09/19/23 Calcium Acetate (Phosphate Bin (Calcium Acetate) 667 Mg Cap, 667 MG PO TIDWM for DIALYSIS, MG 09/19/23 Atorvastatin Calcium (ATORVASTATIN CALCIUM) 40 Mg Tab, 1 TAB PO DAILY for HIGH CHOLESTEROL, #30 TAB 5 Refills 09/19/23 Dqbfqpkhap-Akaluthecouiag-Uvcz (Breztri Aerosphere 160-9-4.8 Mcg/Act) 1 Aer Aer, 1 AER IN BID for COPD, AER 09/19/23 Albuterol Sulfate (Ventolin) 2.5 Mg/3 Ml Nb, 2.5 MG NEB Q4HP PRN for SHORTNESS OF BREATH, INH 09/19/23 Ranolazine (Ranolazine ER) 500 Mg Tab, 500 MG PO BID for CAD, TAB 09/19/23 Diazepam (VALIUM TABLET) 5 Mg Tb, 2 TAB PO PRN PRN for onset seizure, TAB 08/14/23 Hydralazine Hcl (Hydralazine Hcl) 100 Mg Tab, 1 TAB PO TID, #90 TAB 5 Refills 08/14/23 Gabapentin (Gabapentin) 100 Mg Cap, 2 CAP PO TID PRN for onset seizure , #90 CAP 2 Refills Take with diazepam. 08/14/23 Pantoprazole Sodium Sesquihydr (Protonix) 40 Mg Tab, 40 MG PO QAM, #30 TAB 08/14/23 Aspirin (Aspir-81) 81 Mg Tab, 1 TAB PO QAM, #30 TAB 5 Refills 08/14/23 Allopurinol (ZYLOPRIM TABLET) 100 Mg Tb, 1 TAB PO QAM, #30 TAB 5 Refills 08/14/23 Information Source: Patient, Emergency Med Personnel Mode of Arrival: EMS Location: Right Extremity Location: Hip Timing: Days Prehospital treatment: None Severity: Moderate Able to Move Extremity: Yes Bear Weight: Limited Pain: Moderate Mechanism: Spontaneous Circumstances: Fall Onset of Symptoms: After Trauma Symptoms: Pain DVT Risk Factors: NONE Last Tetanus: UTD Associated signs and symptoms: Hip pain Past Medical History PAST MEDICAL HISTORY: DM, ESRD, HTN Surgical History: Appendectomy, CABG, Cholecystectomy, PTCA Family History Family History: Reviewed,noncontributory to illness, No family hx of Cancer, No family hx of DM, No family hx of Heart [place], No family hx of HTN, No family hx ofKidney [place], No family hx of Liver [place], No family hx of Lung [place], No family hx of Stroke Social History Smoker: Cigarettes Alcohol: Denies ETOH Use Drugs: Denies Drug Use Lives In: Home Constitutional: denies: chills, diaphoresis, fatigue, fever, malaise, sweats, weakness, others EENTM: denies: blurred vision, double vision, ear bleeding, ear discharge, ear drainage, ear pain, ear ringing, eye pain, eye redness, hearing loss, mouth pain, mouth swelling, nasal discharge, nose bleeding, nose congestion, nose pain, photophobia, tearing, throat pain, throat swelling, voice changes, others Respiratory: denies: cough, hemoptysis, orthopnea, SOB at rest, shortness of breath, SOB with excertion, stridor, wheezing, others Cardiovascular: denies: chest pain, dizzy spells, diaphoresis, Dyspnea on exertion, edema, irregular heart beat, left arm pain, lightheadedness, palpitations, PND, syncope, others Gastrointestinal: denies: abdomen distended, abdominal pain, blood streaked bowels, constipated, diarrhea, dysphagia, difficulty swallowing, hematemesis, melena, nausea, poor appetite, poor fluid intake, rectal bleeding, rectal pain, vomiting, others Genitourinary: denies: burning, dysuria, flank pain, frequency, hematuria, incontinence, penile discharge, penile sore, pain, testicle pain, testicle swelling, urgency, others Neurological: denies: dizziness, fainting, headache, left sided numbness, left sided weakness, numbness, paresthesia, pre-existing deficit, right sided numbness, right sided weakness, seizure, speech problems, tingling, tremors, weakness, others Musculoskeletal: reports: others (RT hip pain); denies: back pain, gout, joint pain, joint swelling, muscle pain, muscle stiffness, neck pain Integumetry: denies: bruises, change in color, change in hair/nails, dryness, laceration, lesions, lumps, rash, wounds, others Allergic/Immunocompromised: denies: Difficulty Healing, Frequent Infections, Hives, Itching, others Hematologic/Lymphatic: denies: anemia, blood clots, easy bleeding, easy bruising, swollen glands, others Endocrine: denies: excessive hunger, excessive sweating, excessive thirst, excessive urination, flushing, intolerance to cold, intolerance to heat, unexplained weight gain, unexplained weight loss, others Psychiatric: denies: anxiety, bipolar disorder, depression, hopeless, panic disorder, schizophrenia, sleepless, suicidal, others All Other Systems: Reviewed and Negative Physical Exam General Appearance: Normal HEENT: Normal ENT Inspection, Pharynx Normal, TMs Normal Neck: Full Range of Motion, Non-Tender, Normal, Normal Inspection Respiratory: Chest Non-Tender, Lungs Clear, No Accessory Muscle Use, No Respiratory Distress, Normal Breath Sounds Cardiovascular: No Edema, No JVD, No Murmur, No Gallop, Normal Peripheral Pulses, Regular Rate/Rhythm Breast Exam: Deferred Gastrointestinal: No Organomegaly, Non Tender, No Pulsatile Mass, Normal Bowel Sounds, Soft Genitalia: Deferred Pelvic: Deferred Rectal: Deferred Extremities: No calf tenderness, Normal capillary refill Musculoskeletal : Location: Right Extremity Location: Hip (tenderness to palation) Apperance: Normal Neurologic: Alert, senior datastage developer II-XII nml as Tested, No Motor Deficits, Normal Affect, Normal Mood, No Sensory Deficits Cerebellar Function: Normal Reflexes: Normal Skin: Dry, Normal Color, Warm Lymphatic: No Adenopathy Was a procedure done? Was a procedure done?: No Differential Diagnosis EXT Differential Diagnosis: Fracture, Sprain, Dislocation X-Ray, Labs, Meds, VS Vital Signs Date Time Temp Pulse Resp B/P (MAP) Pulse Ox O2 Delivery O2 Flow Rate FiO2 10/17/24 10:53 98.2 99 20 156/84 (108) 98 98.2 10/17/24 10:23 101 21 167/86 10/17/24 09:00 98.0 102 19 171/85 (113) 100 98.0 10/17/24 08:40 98.1 104 24 192/83 99 98.1 Current Medications Medications (Trade) Dose Ordered Sig/Gerard Route Start Time Stop Time Status Last Admin Morphine Sulfate 4 mg ONCE ONCE IV 10/17/24 10:00 10/17/24 10:01 DC 10/17/24 10:23 Ondansetron HCl (Zofran) 4 mg ONCE ONCE IV 10/17/24 10:00 10/17/24 10:01 DC 10/17/24 10:22 Sodium Chloride 1,000 ml @ 1,000 mls/hr Q1H ONCE IV 10/17/24 10:00 10/17/24 10:59 DC 10/17/24 10:23 [place] [id number] Ph: [phone] DIAGNOSTIC IMAGING Diagnostic Imaging Report : [id number] Signed PATIENT: CARLOS KING ACCT: [id number] UNIT: [id number] : 1965 LOC: ER ROOM / BED: / AGE / SEX: 59 / M ADM STATUS: REG ER SERVICE [id number] ORDERING PHYSICIAN: NIA RODRIGUEZ MD PROCEDURE(s): RHIP - R HIP COMPLETE XRAY REASON: fall ORDER NUMBER(s): [id number], ACCESSION NUMBER(s): [id number] CLINICAL INDICATION:pain; fall TECHNIQUE: 1 radiographic views of the pelvis and 2 views of the right hip were obtained. Comparison: CT CT R HIP WITH OUT CONTRAST on DOS: 08/15/24, XY R HIP COMPLETE XRAY on DOS: 07/11/24, XY R FEMUR XRAY on DOS: 04/16/24, XY L FEMUR XRAY on DOS: 04/16/24, XY PELVIS AP on DOS: 04/16/24 FINDINGS/IMPRESSION: There is no evidence of acute fracture or dislocation. Mild bilateral femoroacetabular joint osteoarthrosis ATED BY: KRISTY POWELL MD DICTATED DATE/TIME: 10/17/24 1036 SIGNED BY: KRISTY POWELL MD SIGNED DATE/TIME: 10/17/24 1036 CC: Time of 1ST Reevaluation: 10:20 Reevaluation 1ST: Unchanged Patient Education/Counseling: Diagnosis, Treatment, Prognosis Family Education/Counseling: No Family Present Additional Information The following tests were ordered, and results were reviewed by me: XY R HIP COMPLETE Additional Information was gathered from interviewing the following independent historians: EMS I reviewed and agreed with the following test results read by other providers: XY R HIP COMPLETE I discussed treatment and results with medical personnel and: patient Comprehensive systems review obtained and negative except for what is stated in the HPI. Critical Care Note Critical Care Time?: No Stability Stability form required: No I personally scribed for NIA RODRIGUEZ MD ([email or web address]) on 10/17/24 at 10:01. Electronically submitted by Tori Dumont ([email or web address]). I personally scribed for NIA RODRIGUEZ MD ([email or web address]) on 10/17/24 at 10:02. Electronically submitted by Tori Dumont ([email or web address]). I personally scribed for NIA RODRIGUEZ MD ([email or web address]) on 10/17/24 at 11:00. Electronically submitted by Tori Dumont ([email or web address]). I personally scribed for NIA RODRIGUEZ MD ([email or web address]) on 10/17/24 at 11:25. Electronically submitted by Tori Dumont ([email or web address]). NIA RODRIGUEZ MD Oct 17, 2024 10:01
[2024-10-17] MEDS: ONDANSETRON HCL 4 MG/2 ML VIAL IV ONE (10:22)
[2024-10-17] MEDS: MORPHINE SULFATE 4 MG/ML SYR/VIAL IV ONE (10:23)
[2024-10-17] MEDS: SODIUM CHLORIDE 0.9% 1,000 ML IV ONE (10:23)
--- NOTE | 2024-10-17 10:39 | DVH ---
CLINICAL INDICATION:pain; fall TECHNIQUE: 1 radiographic views of the pelvis and 2 views of the right hip were obtained. Comparison: CT CT R HIP WITH OUT CONTRAST on DOS: 08/15/24, XY R HIP COMPLETE XRAY on DOS: 07/11/24, XY R FEMUR XRAY on DOS: 04/16/24, XY L FEMUR XRAY on DOS: 04/16/24, XY PELVIS AP on DOS: 04/16/24 FINDINGS/IMPRESSION: There is no evidence of acute fracture or dislocation. Mild bilateral femoroacetabular joint osteoarthrosis
[2024-10-17 12:04] LABS: Hematocrit 26.4 % (41.0-53.0); Hemoglobin 8.7 g/dL (13.5-17.5); Mean Corpuscular Hemoglobin 31.0 pg (28.0-32.0); Mean Corpuscular Volume 93.9 fL (80.0-100.0); Nucleated Red Blood Cells % 0.0 %
[2024-10-17 12:12] LABS: Potassium 4.7 mmol/L (3.5-5.1)
[2024-10-17 12:13] LABS: Anion Gap 11 (5-15); Calcium 8.9 mg/dL (8.7-10.4); Carbon Dioxide 29 mmol/L (20-31); Chloride 94 mmol/L (98-107); Sodium 134 mmol/L (136-145)
[2024-10-17 12:18] LABS: BUN/Creatinine Ratio 6.8 (10.0-20.0)
[2024-10-17 12:21] LABS: Blood Urea Nitrogen 38 mg/dL (9-23); Glucose 122 mg/dL (74-106)
[2024-10-17] MEDS ORDERED: diazePAM 5 MG TAB PO PRN (13:00)
[2024-10-17] MEDS ORDERED: GABAPENTIN 100 MG CAP PO PRN (13:00)
[2024-10-17] MEDS ORDERED: DOCUSATE SOD 100 MG CAP PO PRN (13:00)
--- NOTE | 2024-10-17 13:41 | DVHHP2 ---
History of Present Illness Reason for Visit: Right hip pain History of Present Illness Mikhail Mckee is a 59-year-old male with past medical history of ESRD on HD, and hypertension, who came to the hospital with complaints of right hip pain S/P fall. Patient states he was walking in the house on Tuesday with his walker when he lost his balance and fell. He denies hitting his head or losing consciousness. States he waited a few days to come in because he didn't think it was that bad, but then the pain continued to worsen. States he can still walk on it, he just fights through the pain. Cardiovascular: HTN, Other (PTCA with cardiac stents) Renal/: Chronic renal failure (ESRD on HD ) Past Surgical History: Appendectomy, Cholecystectomy, Other (PTCA) Smoke: Quit (March 2024) ALCOHOL: none Drugs: None Lives: with Family Domestic Violence: Neg Review of Systems Constitutional: No: Fever, Chills, Sweats, Weakness, Malaise, Other Eyes: No: Pain, Vision change, Conjunctivae inflammation, Eyelid inflammation, Other, Redness ENT: No: Ear pain, Ear discharge, Nose pain, Nose discharge, Nose congestion, Mouth pain, Mouth swelling, Throat pain, Throat swelling, Other Respiratory: No: Cough, Dry, Shortness of breath, SOB with excertion, Wheezing, Hemoptysis, Pleuritic Pain, Sputum, Wheezing, Other Cardiovascular: No: Chest Pain, Palpitations, Orthopnea, Paroxysmal Noc. Dyspnea, Edema, Lt Headedness, Other Gastrointestinal: No: Nausea, Vomiting, Abdominal Pain, Diarrhea, Constipation, Melena, Hematochezia, Other Genitourinary: No Dysuria, No Frequency, No Incontinence, No Hematuria, No Retention, No Other Musculoskeletal: leg pain (right hip); No: other, neck pain, shoulder pain, arm pain, back pain, hand pain, foot pain Skin: No: Rash, Lesions, Jaundice, Bruising, Other Neurological: No: Weakness, Numbness, Incoordination, Change in speech, Confusion, Seizures, Other Allergies: Coded Allergies: Penicillins (Verified Allergy, Unknown, 10/17/24) Tetanus Antitoxin (Verified Allergy, Unknown, 10/17/24) Exam Vital Signs Vital Signs Date Time Temp Pulse Resp B/P (MAP) Pulse Ox O2 Delivery O2 Flow Rate FiO2 10/17/24 12:00 96 16 167/85 (112) 98 10/17/24 10:53 98.2 98.2 10/17/24 08:45 Nasal Cannula* 4 36 General Appearance: Alert, Oriented X3, Cooperative, mild distress HEENT: Atraumatic, PERRLA, EOMI, Mucous membr. moist/pink Respiratory: Clear to auscultation, Normal air movement Cardiovascular: Normal S1, Normal S2, Other (SR-ST) Abdominal: Normal bowel sounds, Soft, No tenderness Extremities: No clubbing, No cyanosis, No edema, Normal pulses, Other (right hip pain) Skin: No rashes, No breakdown, No significant lesion Neuro: Normal speech, Other (decreased strength in right hip due to pain) Psych/Mental Status: Mental status NL Labs/Xrays Labs Test 10/17/24 11:41 Range/Units White Blood Count 5.6 4.4-10.8 10^3/uL Red Blood Count 2.81 L 4.5-5.90 10^6/uL Hemoglobin 8.7 L 13.5-17.5 g/dL Hematocrit 26.4 L 41.0-53.0 % Mean Corpuscular Volume 93.9 80.0-100.0 fL Mean Corpuscular Hemoglobin 31.0 28.0-32.0 pg Mean Corpuscular Hemoglobin Concent 33.0 32.0-36.0 g/dL Red Cell Distribution Width 18.3 H 11.8-14.3 % Platelet Count 123 L 140-450 10^3/uL Mean Platelet Volume 7.0 6.9-10.8 fL Neutrophils (%) (Auto) 70.4 37.0-80.0 % Lymphocytes (%) (Auto) 11.2 10.0-50.0 % Monocytes (%) (Auto) 11.5 0.0-12.0 % Eosinophils (%) (Auto) 5.8 0.0-7.0 % Basophils (%) (Auto) 1.1 0.0-2.0 % Neutrophils # (Auto) 4.0 1.6-8.6 10 ^3/uL Lymphocytes # (Auto) 0.6 0.4-5.4 10 ^3/uL Monocytes # (Auto) 0.6 0-1.3 10 ^3/uL Eosinophils # (Auto) 0.3 0-0.8 10 ^3/uL Basophils # (Auto) 0.1 0-0.2 10 ^3/uL Nucleated Red Blood Cells 0.0 % Sodium Level 134 L 136-145 mmol/L Potassium Level 4.7 3.5-5.1 mmol/L Chloride Level 94 L 98-107 mmol/L Carbon Dioxide Level 29 20-31 mmol/L Anion Gap 11 5-15 Blood Urea Nitrogen 38 H 9-23 mg/dL Creatinine 5.58 H 0.700-1.30 mg/dL Glomerular Filtration Rate Calc 11 >90 mL/min BUN/Creatinine Ratio 6.8 L 10.0-20.0 Serum Glucose 122 H 74-106 mg/dL Calcium Level 8.9 8.7-10.4 mg/dL Troponin I High Sensitivity 27 </=54 ng/L TECHNIQUE: 1 radiographic views of the pelvis and 2 views of the right hip were obtained. FINDINGS/IMPRESSION: There is no evidence of acute fracture or dislocation. Mild bilateral femoroacetabular joint osteoarthrosis SEPSIS Sepsis Screen Date sepsis recognized/suspect: Oct 17, 2024 Time Sepsis recognized/suspect: 844 Recent Procedure: No On Antibiotic Therapy: No Respiratory Rate >20: No Heart Rate >90: Yes Temp<36 C (96.8 F) or >38.3 C: No SBP <90 or MAP <65 mmHG: No New Acute Mental Status Change: No Is the patient on CPAP, BIPAP,: No Physician Orders R Hip Complete Xray (10/17/24 09:57) Troponin-I Hs (10/17/24 12:21) Troponin-I Hs (10/17/24 14:21) Admit (10/17/24 12:46) Code Status (10/17/24 12:46) 2 Gm Sodium Diet (10/17/24 Lunch) Hydrocodone-Acet 5/325mg Tab ([place] 5/32 (10/17/24 13:00) Ondansetron Hcl (Zofran) (10/17/24 13:00) Docusate Sodium Capsule (Colace Capsule) (10/17/24 13:00) Fall Risk Precautions In Place QSHIFT (10/17/24 12:46) Complete Blood Count (10/18/24 04:00) Comprehensive Metabolic Panel (10/18/24 04:00) Pt Request For Service (10/17/24 12:46) Condition: Serious (10/17/24 12:46) Acetaminophen Tablet (Tylenol Tablet) (10/17/24 13:00) *Dr. Rochelle Rutledge (10/17/24 12:46) Allopurinol Tablet (Zyloprim Tablet) (10/18/24 07:00) Amlodipine Tablet (Norvasc Tablet) (10/18/24 10:00) Aspirin Enteric Coated Tablet (Ecotrin E (10/18/24 07:00) Calcium Acetate Capsule (Phoslo Capsule) (10/17/24 18:00) Clonidine Hcl Tablet (Catapres Tablet) (10/17/24 13:00) Clopidogrel Bisulfate (Plavix) (10/18/24 10:00) Diazepam Tablet (Valium Tablet) (10/17/24 13:00) Furosemide Tablet (Lasix Tablet) (10/18/24 10:00) Pantoprazole Tablet (Protonix Tablet) (10/18/24 07:00) Ranolazine (Ranexa Er) (10/17/24 22:00) (Nf) Atorvastatin Calcium (10/18/24 10:00) (Nf) Kwldyspuam-Fonqnhjcscvcdn-Wdff (Nohemi (10/17/24 22:00) (Nf) Hydralazine Hcl (10/17/24 14:00) (Nf) Isosorbide Mononitrate (Isosorbide (10/18/24 10:00) (Nf) Losartan Potassium (Cozaar) (10/18/24 10:00) (Nf) Patiromer Sorbitex Calcium (Veltass (10/18/24 10:00) Gabapentin Capsule (Neurontin Capsule) (10/17/24 13:00) Vital Signs Date Time Temp Pulse Resp B/P (MAP) Pulse Ox O2 Delivery O2 Flow Rate FiO2 10/17/24 12:00 96 16 167/85 (112) 98 10/17/24 10:53 98.2 99 20 156/84 (108) 98 98.2 10/17/24 10:53 98 16 156/84 10/17/24 10:23 101 21 167/86 10/17/24 09:00 98.0 102 19 171/85 (113) 100 98.0 10/17/24 08:45 98.8 102 19 171/85 (113) 100 98.8 10/17/24 08:45 102 19 100 Nasal Cannula* 4 36 10/17/24 08:40 98.1 104 24 192/83 99 98.1 Laboratory Tests Test 10/17/24 11:41 White Blood Count 5.6 10^3/uL (4.4-10.8) Medications Medications Dose Ordered Sig/Gerard Route Start Time Stop Time Status Last Admin Dose Admin Morphine Sulfate 4 mg ONCE ONCE IV 10/17/24 10:00 10/17/24 10:01 DC 10/17/24 10:23 4 MG Ondansetron HCl 4 mg ONCE ONCE IV 10/17/24 10:00 10/17/24 10:01 DC 10/17/24 10:22 4 MG Sodium Chloride 1,000 ml @ 1,000 mls/hr Q1H ONCE IV 10/17/24 10:00 10/17/24 10:59 DC 10/17/24 10:23 1,000 MLS/HR Assessment/Plan Assessment/Plan Assessment: Intractable pain, Mechanical fall, ESRD on HD T,TH,SAT, Hypertension, Plan: Admit to Med-Surg, Nephrology consult, Physical therapy evaluation and treatment, Fall risk, Pain management, Home medications reconciled, Plan discussed with: Patient My Orders Orders - MORGAN LINDSAY HATCHERY MANAGER Procedure Category Date Status Time Admit ADMIT 10/17/24 Transmitted 12:46 Code Status CODE 10/17/24 Transmitted 12:46 2 Gm Sodium Diet DIET 10/17/24 Transmitted Lunch Hydrocodone-Acet PHA 10/17/24 Transmitted 5/325mg Tab ([place] 13:00 Ondansetron Hcl PHA 10/17/24 Transmitted (Zofran) 13:00 Docusate Sodium PHA 10/17/24 Transmitted Capsule (Colace 13:00 Fall Risk Precautions SEAN 10/17/[address] 12:46 Complete Blood Count LAB 10/18/24 Verified 04:00 Comprehensive LAB 10/18/24 Verified Metabolic Panel 04:00 Pt Request For Service PT 10/17/24 Transmitted 12:46 Condition: Serious SEAN 10/17/24 Transmitted 12:46 Acetaminophen Tablet PHA 10/17/24 Transmitted (Tylenol Tablet) 13:00 *Dr. Rochelle Finnegan -Da CONS 10/17/24 Transmitted Maty 12:46 Allopurinol Tablet PHA 10/18/24 Transmitted (Zyloprim Tablet) 07:00 Amlodipine Tablet PHA 10/18/24 Transmitted (Norvasc Tablet) 10:00 Aspirin Enteric PHA 10/18/24 Transmitted Coated Tablet 07:00 Calcium Acetate PHA 10/17/24 Transmitted Capsule (Phoslo 18:00 Clonidine Hcl Tablet PHA 10/17/24 Transmitted (Catapres Tablet) 13:00 Clopidogrel Bisulfate PHA 10/18/24 Transmitted (Plavix) 10:00 Diazepam Tablet PHA 10/17/24 Transmitted (Valium Tablet) 13:00 Furosemide Tablet PHA 10/18/24 Transmitted (Lasix Tablet) 10:00 Pantoprazole Tablet PHA 10/18/24 Transmitted (Protonix Tablet) 07:00 Ranolazine (Ranexa Er) PHA 10/17/24 Transmitted 22:00 (Nf) Atorvastatin PHA 10/18/24 Transmitted Calcium 10:00 (NF) PHA 10/17/24 Transmitted Hdctkpvunn-Zolafykjoouuco-Ynpo 22:00 (Nf) Hydralazine Hcl PHA 10/17/24 Transmitted 14:00 (Nf) Isosorbide PHA 10/18/24 Transmitted Mononitrate 10:00 (Nf) Losartan PHA 10/18/24 Transmitted Potassium (Cozaar) 10:00 (Nf) Patiromer PHA 10/18/24 Transmitted Sorbitex Calcium 10:00 Gabapentin Capsule PHA 10/17/24 Transmitted (Neurontin Capsule) 13:00 Date of Service: Oct 17, 2024 Billing Provider: MORGAN LINDSAY Common Visit Codes: [id number] INP/OBS CARE (MOD) MORGAN LINDSAY Oct 17, 2024 13:41
[2024-10-17] MEDS: MORPHINE SULFATE INJ 2 MG/ml SYRG IV PRN (14:06)
[2024-10-17] MEDS: HYDROcodone-ACET 5/325MG TAB PO PRN (14:38)
[2024-10-17] MEDS: CALCIUM ACETATE 667 MG CAP PO SCH (18:21)
[2024-10-17] MEDS: ONDANSETRON HCL 4 MG/2 ML VIAL IV PRN (18:22)
[2024-10-17 22:00] VITALS: BP 172/86; PULSE 98; RESP 18; TEMP 97.8; O2SAT 99
[2024-10-17] MEDS: BUDESONIDE GLYCOPYRROLATE FORM IN SCH (22:00)
[2024-10-17] MEDS: RANOLAZINE ER 500 MG TAB PO SCH (22:50)
[2024-10-17] MEDS: ATORVASTATIN 20 MG TAB PO SCH (22:50)
[2024-10-17] MEDS: SACUBITRIL-VALSARTAN 24mg/26mg TAB PO SCH (22:50)
[2024-10-18] VITALS (13 sets, daily range): BP systolic 127–182; BP diastolic 79–97; PULSE 94–107; RESP 16–22; TEMP 97.4–98; O2SAT 90–100
[2024-10-18 07:38] LABS: Hematocrit 27.9 % (41.0-53.0); Hemoglobin 9.2 g/dL (13.5-17.5); Mean Corpuscular Hemoglobin 31.2 pg (28.0-32.0); Mean Corpuscular Volume 94.4 fL (80.0-100.0); Nucleated Red Blood Cells % 0.1 %
[2024-10-18 07:58] LABS: Alanine Aminotransferase 15 U/L (7-40); Albumin 3.9 g/dL (3.2-4.8); Alkaline Phosphatase 103 U/L (46-116); Anion Gap 10 (5-15); BUN/Creatinine Ratio 6.4 (10.0-20.0); Calcium 9.1 mg/dL (8.7-10.4); Carbon Dioxide 28 mmol/L (20-31); Potassium 5.0 mmol/L (3.5-5.1); Total Protein 6.3 g/dL (5.7-8.2)
[2024-10-18 08:00] LABS: Bilirubin, Total 0.3 mg/dL (0.2-1.0); Blood Urea Nitrogen 42 mg/dL (9-23); Chloride 93 mmol/L (98-107); Glucose 130 mg/dL (74-106); Sodium 131 mmol/L (136-145)
[2024-10-18] MEDS: ALLOPURINOL 100 MG TAB PO SCH (08:48)
[2024-10-18] MEDS: ASPirin-EC 81 mg tab PO SCH (08:49)
[2024-10-18] MEDS: ISOSORBIDE MONONITRATE ER 60 MG TAB PO SCH (08:49)
[2024-10-18] MEDS: FUROSEMIDE 40 MG TAB PO SCH (08:50)
[2024-10-18] MEDS: CLOPIDOGREL BISULFATE 75 MG TAB PO SCH (08:50)
[2024-10-18] MEDS: PANTOPRAZOLE 40 MG TAB PO SCH (08:51)
[2024-10-18] MEDS: PATIROMER SORBITEX CALCIUM 8.4 GM PO SCH (10:00)
--- NOTE | 2024-10-18 12:12 | DVHPN2 ---
Reviewed: Care Plan, H&P, Labs, Medications, Previous Orders, Radiology Changes from previous H/P or p: No Changes Eyes: No Pain, No Vision change, No Conjunctivae inflammation, No Eyelid inflammation, No Other, No Redness ENT: No Ear pain, No Ear discharge, No Nose pain, No Nose discharge, No Nose congestion, No Mouth pain, No Mouth swelling, No Throat pain, No Throat swelling, No Other Cardiovascular: No Chest Pain, No Palpitations, No Orthopnea, No Paroxysmal Noc. Dyspnea, No Edema, No Lt Headedness, No Other Respiratory: No Cough, No Dry, No Shortness of breath, No SOB with excertion, No Wheezing, No Hemoptysis, No Pleuritic Pain, No Sputum, No Other Gastrointestinal: No Nausea, No Vomiting, No Abdominal Pain, No Diarrhea, No Constipation, No Melena, No Hematochezia, No Other Genitourinary: No Dysuria, No Frequency, No Incontinence, No Hematuria, No Retention, No Other Musculoskeletal: No other, No neck pain, No shoulder pain, No arm pain, No back pain, No hand pain; leg pain (right hip); No foot pain Skin: No Rash, No Lesions, No Jaundice, No Bruising, No Other Objective Vitals Vital Signs Date Time Temp Pulse Resp B/P (MAP) Pulse Ox O2 Delivery O2 Flow Rate FiO2 10/18/24 08:59 97.9 104 17 139/89 (106) 90 97.9 10/18/24 01:40 Nasal Cannula* 2 28 Intake/Output Intake and Output 10/18/24 07:00 Intake Total 1100 ml Balance 1100 ml Intake Oral 100 ml IV Total 1000 ml Medications Current Medications Medications Dose Ordered Sig/Gerard Route Start Time Stop Time Status Last Admin Dose Admin Acetaminophen/ Hydrocodone Bitart 1 tab Q4HP PRN PO 10/17/24 13:00 10/18/24 11:19 1 TAB Ondansetron HCl 4 mg Q4HP PRN IV 10/17/24 13:00 10/17/24 18:22 4 MG Docusate Sodium 100 mg BIDPRN PRN PO 10/17/24 13:00 Acetaminophen 650 mg Q6HP PRN PO 10/17/24 13:00 Allopurinol 100 mg QAM PO 10/18/24 07:00 10/18/24 08:48 100 MG Amlodipine Besylate 10 mg DAILY PO 10/18/24 10:00 10/18/24 08:51 10 MG Aspirin 81 mg QAM PO 10/18/24 07:00 10/18/24 08:49 81 MG Calcium Acetate 667 mg TIDWM PO 10/17/24 18:00 10/18/24 12:09 667 MG Clonidine HCl 0.1 mg Q8HP PRN PO 10/17/24 13:00 10/17/24 14:39 0.1 MG Clopidogrel Bisulfate 75 mg DAILY PO 10/18/24 10:00 10/18/24 08:50 75 MG Diazepam 10 mg PRN PRN PO 10/17/24 13:00 Furosemide 40 mg DAILY PO 10/18/24 10:00 10/18/24 08:50 40 MG Pantoprazole Sodium 40 mg QAM PO 10/18/24 07:00 10/18/24 08:51 40 MG Ranolazine 500 mg BID PO 10/17/24 22:00 10/17/24 22:50 500 MG Atorvastatin Calcium 40 mg HS PO 10/17/24 22:00 10/17/24 22:50 40 MG Patient Own Medication 1 aer BID IN 10/17/24 22:00 Hydralazine HCl 100 mg TID PO 10/17/24 22:00 10/18/24 05:35 100 MG Isosorbide Mononitrate 60 mg DAILY PO 10/18/24 10:00 10/18/24 08:49 60 MG Sacubitril/ Valsartan 1 tab BID PO 10/17/24 22:00 10/18/24 08:49 1 TAB Patient Own Medication 8.4 DAILY PO 10/18/24 10:00 Gabapentin 200 mg TID PRN PO 10/17/24 13:00 Morphine Sulfate 2 mg Q4HPRN PRN IV 10/17/24 13:45 10/18/24 08:52 2 MG Laboratory Results Laboratory Tests 10/18/24 06:30 Chemistry Test 10/18/24 06:30 Albumin 3.9 g/dL (3.2-4.8) Calcium Level 9.1 mg/dL (8.7-10.4) Total Protein 6.3 g/dL (5.7-8.2) LFT Test 10/18/24 06:30 Alanine Aminotransferase (ALT) 15 U/L (7-40) Alkaline Phosphatase 103 U/L (46-116) Aspartate Amino Transferase (AST) 15 U/L (13-40) Total Bilirubin 0.3 mg/dL (0.2-1.0) Assessment/Plan Assessment/Plan Intractable right hip pain status post mechanical fall: X-rays negative for any fracture ESRD on hemodialysis : Consult for Nephrology Hypertension Coronary artery disease status post stents Chronic current smoking: Counseling Anemia of chronic disease Acute on chronic systolic CHF exacerbation ejection fraction 35 % Acute on chronic Hypoxic respiratory failure Time Spent 70 minutes Advanced care planning time 20 minutes Patient is full code Plan discussed with: Patient Date of Service: Oct 18, 2024 Billing Provider: SHARMIN AN MD Common Visit Codes: [id number] CARE 30-74 MIN SHARMIN AN MD Oct 18, 2024 12:12
[2024-10-18] MEDS ORDERED: DEXTROSE (50%) 50ML SYRG IV ONE (13:00)
[2024-10-18] MEDS: ACCU-CHEK COMFORT CURVE STRIP VI ONE (13:00)
[2024-10-18] MEDS: HYDROmorphone HCL 2 MG/ML VL/or syr IV PRN ×2 (13:14→18:10)
--- NOTE | 2024-10-18 14:25 | DVHINCON2 ---
DATE OF CONSULTATION: 10/18/2024 CONSULTING PHYSICIAN: Dr. Enamorado. REASON FOR CONSULTATION: Management of dialysis. HISTORY OF PRESENT ILLNESS: The patient has been examined and the medical record reviewed. The following is the summary of my findings: The patient is a 59-year-old gentleman who is one of our chronic dialysis patients who came to the hospital complaining of right hip pain apparently after sustaining a fall at home. He missed his dialysis treatment and now he is here in the hospital. He was admitted and I am being consulted to handle his dialysis treatment. He denies any loss of consciousness or any other problems associated with the fall. Currently, he is asymptomatic. PAST MEDICAL HISTORY: Significant for longstanding hypertension. He has a history of coronary artery disease, status post PTCA and multiple cardiac stents. He also has a history of cholecystectomy, anemia, hyperparathyroidism, and anemia of renal disease. MEDICATION LIST IN THE HOSPITAL: Include ipratropium, albuterol, hydromorphone, isosorbide, furosemide, Plavix, amlodipine, pantoprazole, aspirin, allopurinol, and Entresto. PHYSICAL EXAMINATION: VITAL SIGNS: Blood pressure is 160/81, heart rate 98, respirations 19, temperature 97. GENERAL: The patient is an adult gentleman who appears to be chronically ill but in no acute distress. Alert and oriented x 3. HEENT: Unremarkable. NECK: There is no jugular venous distention. No palpable thyroid or lymphadenopathies. LUNGS: Clear to auscultation. CARDIOVASCULAR: Shows regular rate with an S4 gallop. ABDOMEN: Soft, nontender. No organomegaly. No ascites. EXTREMITIES: Showed no clubbing, cyanosis. There is no edema. NEUROLOGIC: Nonfocal. SKIN: Unremarkable. LABORATORY FINDINGS: His sodium is 131, potassium 4, bicarbonate 28, creatinine 6.4, hemoglobin is 8.7 with a white blood cell count of 5.6. ASSESSMENT AND PLAN: * End-stage renal disease. The patient is clinically stable. There are no major electrolyte imbalances. I will go ahead and schedule dialysis treatment for today since he is slightly fluid overloaded. We will target an ultrafiltration rate of 2.5 L. * Anemia of renal disease. We will start intravenous Epogen during dialysis. * History of coronary artery disease, currently clinically stable. * Status post mechanical fall. Management is as per admitting team. We will follow him closely during the hospitalization. Thank you for the consult. MD JENNIFER Mobley/JESSICA TID: [id number] RECEIPT: [id number]
--- NOTE | 2024-10-18 14:33 | DVH ---
EXAM: CT CT R HIP WITH OUT CONTRAST INDICATION: Right hip pain status post mechanical fall EXAM DATE: 10/18/2024 01:17 PM COMPARISON: XY R HIP COMPLETE XRAY on DOS: 10/17/24, CT CT R HIP WITH OUT CONTRAST on DOS: 08/15/24, XY R HIP COMPLETE XRAY on DOS: 07/11/24 TECHNIQUE: Multiple axial CT images of the right hip were obtained using bone algorithm. Axial and co lenin reformatting was done. Bone and soft tissue windows were reviewed. Radiation Dose Information: RADIATION DOSE: DLP 712.6 mGy.cm; CTDI vol 19.54 mGy. Findings/Impression: There is no evidence of an acute fracture, dislocation, blastic, or lytic lesions. No radiopaque foreign bodies. No joint effusion. Moderate right gluteal/lower back soft tissue edema.
[2024-10-18] MEDS: IPRATROPIUM BROM 0.5 MG/2.5ML INH SOL NEB SCH (14:42)
[2024-10-18] MEDS: ALBUTEROL SULF 2.5 MG/0.5ML(0.5%) NEB SOLN NEB SCH (14:44)
[2024-10-18] MEDS: ACCU-CHEK COMFORT CURVE STRIP VI SCH (16:00)
[2024-10-18] MEDS: InsuLIN REG 1unit/0.01ml Soln (100units/ml) SC ONE (16:10)
[2024-10-18] MEDS ORDERED: DEXTROSE (50%) 50ML SYRG IV PRN (16:45)
[2024-10-18] MEDS: InsuLIN REG 1unit/0.01ml Soln (100units/ml) SC SCH (17:00)
[2024-10-18] MEDS: EPOETIN ALFA-EPBX 10,000 UNIT/1ML VIAL SC ONE (22:59)
[2024-10-19] VITALS (18 sets, daily range): BP systolic 147–173; BP diastolic 71–104; PULSE 87–112; RESP 17–22; TEMP 97.7–98.3; O2SAT 96–100
--- NOTE | 2024-10-19 09:23 | ECG ---
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
--- NOTE | 2024-10-19 12:54 | DVHPN2 ---
Progress Note - Dictate Date Seen: Oct 19, 2024 Has the PT tested + for MRSA If YES, has PT been informed?: No Medical Necessity Reason Pt with a Central, PICC or Fol: No Subjective No new complaints vital signs Vital Sign Date Time Temp Pulse Resp B/P (MAP) Pulse Ox O2 Delivery O2 Flow Rate FiO2 10/19/24 12:48 178/93 10/19/24 12:09 105 18 10/19/24 10:13 100 10/19/24 10:07 Nasal Cannula* 4 36 10/19/24 09:08 98.0 98.0 Total Intake and Output 10/18/24 10/18/24 10/19/24 14:59 22:59 06:59 Intake Total 400 ml 348 ml Output Total 75 ml Balance 325 ml 348 ml medications Current Medications Medications Dose Ordered Sig/Gerard Route Start Time Stop Time Status Last Admin Dose Admin Acetaminophen/ Hydrocodone Bitart 1 tab Q4HP PRN PO 10/17/24 13:00 Hold 10/18/24 11:19 1 TAB Ondansetron HCl 4 mg Q4HP PRN IV 10/17/24 13:00 10/19/24 11:39 4 MG Docusate Sodium 100 mg BIDPRN PRN PO 10/17/24 13:00 Acetaminophen 650 mg Q6HP PRN PO 10/17/24 13:00 Allopurinol 100 mg QAM PO 10/18/24 07:00 10/19/24 05:59 100 MG Amlodipine Besylate 10 mg DAILY PO 10/18/24 10:00 10/19/24 10:06 10 MG Aspirin 81 mg QAM PO 10/18/24 07:00 10/19/24 05:58 81 MG Calcium Acetate 667 mg TIDWM PO 10/17/24 18:00 10/19/24 12:49 667 MG Clonidine HCl 0.1 mg Q8HP PRN PO 10/17/24 13:00 10/19/24 12:48 0.1 MG Clopidogrel Bisulfate 75 mg DAILY PO 10/18/24 10:00 10/19/24 10:06 75 MG Diazepam 10 mg PRN PRN PO 10/17/24 13:00 Furosemide 40 mg DAILY PO 10/18/24 10:00 10/19/24 10:05 40 MG Pantoprazole Sodium 40 mg QAM PO 10/18/24 07:00 10/19/24 05:59 40 MG Ranolazine 500 mg BID PO 10/17/24 22:00 10/19/24 10:06 500 MG Atorvastatin Calcium 40 mg HS PO 10/17/24 22:00 10/18/24 23:02 40 MG Patient Own Medication 1 aer BID IN 10/17/24 22:00 Hydralazine HCl 100 mg TID PO 10/17/24 22:00 10/19/24 05:59 100 MG Isosorbide Mononitrate 60 mg DAILY PO 10/18/24 10:00 10/19/24 10:05 60 MG Sacubitril/ Valsartan 1 tab BID PO 10/17/24 22:00 10/19/24 10:05 1 TAB Patient Own Medication 8.4 DAILY PO 10/18/24 10:00 Gabapentin 200 mg TID PRN PO 10/17/24 13:00 Albuterol 2.5 mg Q4HR NEB 10/18/24 14:00 10/19/24 10:07 2.5 MG Ipratropium [place] 0.5 mg Q4HR NEB 10/18/24 14:00 10/19/24 10:07 0.5 MG Diagnostic Test (Pha) 1 strip ACHS 10/18/24 17:00 10/19/24 11:30 1 STRIP Insulin Human Regular ACHS SC 10/18/24 17:00 10/19/24 06:13 2 UNITS Hydromorphone HCl 2 mg Q4HPRN PRN IV 10/18/24 14:30 10/19/24 11:39 2 MG Dextrose 50 ml UD PRN IV 10/18/24 16:45 objective GENERAL: The patient is an adult gentleman who appears to be chronically ill but in no acute distress. Alert and oriented x 3. HEENT: Unremarkable. NECK: There is no jugular venous distention. No palpable thyroid or lymphadenopathies. LUNGS: Clear to auscultation. CARDIOVASCULAR: Shows regular rate with an S4 gallop. ABDOMEN: Soft, nontender. No organomegaly. No ascites. EXTREMITIES: Showed no clubbing, cyanosis. There is no edema. NEUROLOGIC: Nonfocal. SKIN: Unremarkable. laboratory and microbiology Laboratory Tests 10/18/24 06:30 Test 10/18/24 06:30 Range/Units Serum Glucose 130 H 74-106 mg/dL Assessment/Plan ASSESSMENT AND PLAN: * End-stage renal disease. The patient is clinically stable. There are no major electrolyte imbalances. * HD on TTS schedule * Anemia of renal disease. We will start intravenous Epogen during dialysis. * History of coronary artery disease, currently clinically stable. * Status post mechanical fall. Management is as per admitting team. We will follow him closely during the hospitalization. DC home Plan discussed with: Patient IVORY LEARY MD Oct 19, 2024 12:54
--- NOTE | 2024-10-19 13:01 | DVHPN2 ---
Reviewed: Care Plan, H&P, Labs, Medications, Previous Orders, Radiology Eyes: No Pain, No Vision change, No Conjunctivae inflammation, No Eyelid inflammation, No Other, No Redness ENT: No Ear pain, No Ear discharge, No Nose pain, No Nose discharge, No Nose congestion, No Mouth pain, No Mouth swelling, No Throat pain, No Throat swelling, No Other Cardiovascular: No Chest Pain, No Palpitations, No Orthopnea, No Paroxysmal Noc. Dyspnea, No Edema, No Lt Headedness, No Other Respiratory: No Cough, No Dry, No Shortness of breath, No SOB with excertion, No Wheezing, No Hemoptysis, No Pleuritic Pain, No Sputum, No Other Gastrointestinal: No Nausea, No Vomiting, No Abdominal Pain, No Diarrhea, No Constipation, No Melena, No Hematochezia, No Other Genitourinary: No Dysuria, No Frequency, No Incontinence, No Hematuria, No Retention, No Other Musculoskeletal: No other, No neck pain, No shoulder pain, No arm pain, No back pain, No hand pain; leg pain (right hip); No foot pain Skin: No Rash, No Lesions, No Jaundice, No Bruising, No Other Objective Vitals Vital Signs Date Time Temp Pulse Resp B/P (MAP) Pulse Ox O2 Delivery O2 Flow Rate FiO2 10/19/24 12:48 178/93 10/19/24 12:09 105 18 10/19/24 10:13 100 10/19/24 10:07 Nasal Cannula* 4 36 10/19/24 09:08 98.0 98.0 Intake/Output Intake and Output 10/19/24 07:00 Intake Total 748 ml Output Total 75 ml Balance 673 ml Intake Oral 748 ml Output Urine Total 75 ml # Voids 1 # Bowel Movements 1 Medications Current Medications Medications Dose Ordered Sig/Gerard Route Start Time Stop Time Status Last Admin Dose Admin Acetaminophen/ Hydrocodone Bitart 1 tab Q4HP PRN PO 10/17/24 13:00 Hold 10/18/24 11:19 1 TAB Ondansetron HCl 4 mg Q4HP PRN IV 10/17/24 13:00 10/19/24 11:39 4 MG Docusate Sodium 100 mg BIDPRN PRN PO 10/17/24 13:00 Acetaminophen 650 mg Q6HP PRN PO 10/17/24 13:00 Allopurinol 100 mg QAM PO 10/18/24 07:00 10/19/24 05:59 100 MG Amlodipine Besylate 10 mg DAILY PO 10/18/24 10:00 10/19/24 10:06 10 MG Aspirin 81 mg QAM PO 10/18/24 07:00 10/19/24 05:58 81 MG Calcium Acetate 667 mg TIDWM PO 10/17/24 18:00 10/19/24 12:49 667 MG Clonidine HCl 0.1 mg Q8HP PRN PO 10/17/24 13:00 10/19/24 12:48 0.1 MG Clopidogrel Bisulfate 75 mg DAILY PO 10/18/24 10:00 10/19/24 10:06 75 MG Diazepam 10 mg PRN PRN PO 10/17/24 13:00 Furosemide 40 mg DAILY PO 10/18/24 10:00 10/19/24 10:05 40 MG Pantoprazole Sodium 40 mg QAM PO 10/18/24 07:00 10/19/24 05:59 40 MG Ranolazine 500 mg BID PO 10/17/24 22:00 10/19/24 10:06 500 MG Atorvastatin Calcium 40 mg HS PO 10/17/24 22:00 10/18/24 23:02 40 MG Patient Own Medication 1 aer BID IN 10/17/24 22:00 Hydralazine HCl 100 mg TID PO 10/17/24 22:00 10/19/24 05:59 100 MG Isosorbide Mononitrate 60 mg DAILY PO 10/18/24 10:00 10/19/24 10:05 60 MG Sacubitril/ Valsartan 1 tab BID PO 10/17/24 22:00 10/19/24 10:05 1 TAB Patient Own Medication 8.4 DAILY PO 10/18/24 10:00 Gabapentin 200 mg TID PRN PO 10/17/24 13:00 Albuterol 2.5 mg Q4HR NEB 10/18/24 14:00 10/19/24 10:07 2.5 MG Ipratropium [place] 0.5 mg Q4HR NEB 10/18/24 14:00 10/19/24 10:07 0.5 MG Diagnostic Test (Pha) 1 strip ACHS 10/18/24 17:00 10/19/24 11:30 1 STRIP Insulin Human Regular ACHS SC 10/18/24 17:00 10/19/24 06:13 2 UNITS Hydromorphone HCl 2 mg Q4HPRN PRN IV 10/18/24 14:30 10/19/24 11:39 2 MG Dextrose 50 ml UD PRN IV 10/18/24 16:45 Laboratory Results Laboratory Tests 10/18/24 06:30 Microbiology Microbiology Date/Time Source Procedure Growth Status 10/18/24 05:35 Nose MRSA Screen - Final Complete AUDREY BIRD MD Oct 19, 2024 13:01
[2024-10-19] MEDS: SODIUM CHL 0.9% 1000 ML BAG XX ONE (17:49)
[2024-10-19] MEDS: HYDROmorphone HCL 2 MG/ML VL/or syr IV PRN (20:24)
[2024-10-20] VITALS (11 sets, daily range): BP systolic 125–161; BP diastolic 46–74; PULSE 99–113; RESP 18–20; TEMP 98–98.6; O2SAT 92–100
[2024-10-20] MEDS: ACETAMINOPHEN 325 MG TAB PO PRN (02:34)
[2024-10-20] MEDS ORDERED: EPOETIN ALFA-EPBX 4,000 UNIT/ML VIAL IV ONE (08:30)
[2024-10-20] MEDS: SODIUM CHL 0.9% 1000 ML BAG XX ONE (08:30)
--- NOTE | 2024-10-20 09:24 | DVHPN2 ---
Reviewed: Care Plan, H&P, Labs, Medications, Previous Orders, Radiology Changes from previous H/P or p: No Changes Eyes: No Pain, No Vision change, No Conjunctivae inflammation, No Eyelid inflammation, No Other, No Redness ENT: No Ear pain, No Ear discharge, No Nose pain, No Nose discharge, No Nose congestion, No Mouth pain, No Mouth swelling, No Throat pain, No Throat swelling, No Other Cardiovascular: No Chest Pain, No Palpitations, No Orthopnea, No Paroxysmal Noc. Dyspnea, No Edema, No Lt Headedness, No Other Respiratory: No Cough, No Dry, No Shortness of breath, No SOB with excertion, No Wheezing, No Hemoptysis, No Pleuritic Pain, No Sputum, No Other Gastrointestinal: No Nausea, No Vomiting, No Abdominal Pain, No Diarrhea, No Constipation, No Melena, No Hematochezia, No Other Genitourinary: No Dysuria, No Frequency, No Incontinence, No Hematuria, No Retention, No Other Musculoskeletal: No other, No neck pain, No shoulder pain, No arm pain, No back pain, No hand pain; leg pain (right hip); No foot pain Skin: No Rash, No Lesions, No Jaundice, No Bruising, No Other Objective Vitals Vital Signs Date Time Temp Pulse Resp B/P (MAP) Pulse Ox O2 Delivery O2 Flow Rate FiO2 10/20/24 08:58 98.2 113 18 139/46 (77) 92 98.2 10/20/24 06:40 Nasal Cannula 3.0 10/20/24 06:40 32 Intake/Output Intake and Output 10/20/24 07:00 Intake Total 980 ml Output Total 152 ml Balance 828 ml Intake Oral 980 ml Output Urine Total 150 ml Stool Total 2 ml # Voids 2 Medications Current Medications Medications Dose Ordered Sig/Gerard Route Start Time Stop Time Status Last Admin Dose Admin Acetaminophen/ Hydrocodone Bitart 1 tab Q4HP PRN PO 10/17/24 13:00 Hold 10/18/24 11:19 1 TAB Ondansetron HCl 4 mg Q4HP PRN IV 10/17/24 13:00 10/19/24 11:39 4 MG Docusate Sodium 100 mg BIDPRN PRN PO 10/17/24 13:00 Acetaminophen 650 mg Q6HP PRN PO 10/17/24 13:00 10/20/24 02:34 650 MG Allopurinol 100 mg QAM PO 10/18/24 07:00 10/20/24 05:44 100 MG Amlodipine Besylate 10 mg DAILY PO 10/18/24 10:00 10/19/24 10:06 10 MG Aspirin 81 mg QAM PO 10/18/24 07:00 10/20/24 05:44 81 MG Calcium Acetate 667 mg TIDWM PO 10/17/24 18:00 10/19/24 18:05 667 MG Clonidine HCl 0.1 mg Q8HP PRN PO 10/17/24 13:00 10/19/24 12:48 0.1 MG Clopidogrel Bisulfate 75 mg DAILY PO 10/18/24 10:00 10/19/24 10:06 75 MG Diazepam 10 mg PRN PRN PO 10/17/24 13:00 Furosemide 40 mg DAILY PO 10/18/24 10:00 10/19/24 10:05 40 MG Pantoprazole Sodium 40 mg QAM PO 10/18/24 07:00 10/20/24 05:44 40 MG Ranolazine 500 mg BID PO 10/17/24 22:00 10/19/24 22:25 500 MG Atorvastatin Calcium 40 mg HS PO 10/17/24 22:00 10/19/24 22:26 40 MG Patient Own Medication 1 aer BID IN 10/17/24 22:00 Hydralazine HCl 100 mg TID PO 10/17/24 22:00 10/19/24 22:26 100 MG Isosorbide Mononitrate 60 mg DAILY PO 10/18/24 10:00 10/19/24 10:05 60 MG Sacubitril/ Valsartan 1 tab BID PO 10/17/24 22:00 10/19/24 22:25 1 TAB Patient Own Medication 8.4 DAILY PO 10/18/24 10:00 Gabapentin 200 mg TID PRN PO 10/17/24 13:00 Albuterol 2.5 mg Q4HR NEB 10/18/24 14:00 10/20/24 06:40 2.5 MG Ipratropium [place] 0.5 mg Q4HR NEB 10/18/24 14:00 10/20/24 06:40 0.5 MG Diagnostic Test (Pha) 1 strip ACHS 10/18/24 17:00 10/20/24 05:42 1 STRIP Insulin Human Regular ACHS SC 10/18/24 17:00 10/19/24 22:31 3 UNITS Dextrose 50 ml UD PRN IV 10/18/24 16:45 Hydromorphone HCl 1 mg Q4HPRN PRN IV 10/19/24 14:30 10/20/24 05:49 1 MG Laboratory Results Laboratory Tests 10/18/24 06:30 Microbiology Microbiology Date/Time Source Procedure Growth Status 10/18/24 05:35 Nose MRSA Screen - Final Complete Labs and/or images reviewed: Labs reviewed by me, Image(s) reviewed by me Assessment/Plan Assessment/Plan Intractable right hip pain status post mechanical fall: X-rays negative for any fracture, CT hip negative for any fracture ESRD on hemodialysis : Consult for Nephrology Dr cecilio pollock, patient getting hemodialysis today. Hypertension Coronary artery disease status post stents Chronic current smoking: Counseling Anemia of chronic disease Acute on chronic systolic CHF exacerbation ejection fraction 35 % Acute on chronic Hypoxic respiratory failure Plan discussed with: Patient Date of Service: Oct 20, 2024 Billing Provider: SHARMIN AN MD Common Visit Codes: [id number] INP/OBS CARE(HIGH) SHARMIN AN MD Oct 20, 2024 09:24
[2024-10-20] MEDS ORDERED: HYDR-4798 PO (09:26)
--- NOTE | 2024-10-20 09:32 | DVHDS2 ---
Discharge Summary Date of Admission Oct 17, 2024 at 12:46 Date of Discharge: Oct 20, 2024 Admitting Diagnosis Right hip pain Wounds: None Labs/Diagnostic Data: Laboratory Results Test 10/19/24 22:14 10/18/24 06:30 10/17/24 15:21 POC Glucose 163 mg/dl (70-106) White Blood Count 5.5 10^3/uL (4.4-10.8) Red Blood Count 2.95 10^6/uL (4.5-5.90) Hemoglobin 9.2 g/dL (13.5-17.5) Hematocrit 27.9 % (41.0-53.0) Mean Corpuscular Volume 94.4 fL (80.0-100.0) Mean Corpuscular Hemoglobin 31.2 pg (28.0-32.0) Mean Corpuscular Hemoglobin Concent 33.0 g/dL (32.0-36.0) Red Cell Distribution Width 18.0 % (11.8-14.3) Platelet Count 128 10^3/uL (140-450) Mean Platelet Volume 7.3 fL (6.9-10.8) Neutrophils (%) (Auto) 70.2 % (37.0-80.0) Lymphocytes (%) (Auto) 9.2 % (10.0-50.0) Monocytes (%) (Auto) 12.2 % (0.0-12.0) Eosinophils (%) (Auto) 6.7 % (0.0-7.0) Basophils (%) (Auto) 1.7 % (0.0-2.0) Neutrophils # (Auto) 3.8 10 ^3/uL (1.6-8.6) Lymphocytes # (Auto) 0.5 10 ^3/uL (0.4-5.4) Monocytes # (Auto) 0.7 10 ^3/uL (0-1.3) Eosinophils # (Auto) 0.4 10 ^3/uL (0-0.8) Basophils # (Auto) 0.1 10 ^3/uL (0-0.2) Nucleated Red Blood Cells 0.1 % Sodium Level 131 mmol/L (136-145) Potassium Level 5.0 mmol/L (3.5-5.1) Chloride Level 93 mmol/L (98-107) Carbon Dioxide Level 28 mmol/L (20-31) Anion Gap 10 (5-15) Blood Urea Nitrogen 42 mg/dL (9-23) Creatinine 6.54 mg/dL (0.700-1.30) Glomerular Filtration Rate Calc 9 mL/min (>90) BUN/Creatinine Ratio 6.4 (10.0-20.0) Serum Glucose 130 mg/dL (74-106) Calcium Level 9.1 mg/dL (8.7-10.4) Total Bilirubin 0.3 mg/dL (0.2-1.0) Aspartate Amino Transferase (AST) 15 U/L (13-40) Alanine Aminotransferase (ALT) 15 U/L (7-40) Alkaline Phosphatase 103 U/L (46-116) Total Protein 6.3 g/dL (5.7-8.2) Albumin 3.9 g/dL (3.2-4.8) Hepatitis B Surface Antigen Negative (Negative) Troponin I High Sensitivity 28 ng/L (</=54) Other Laboratory Tests 10/18/24 06:30 Brief Hx & Hospital Course: 59-year-old male with a history of ESRD on hemodialysis hypertension coronary artery disease status post stents chronic current smoker chronic anemia CHF chronic hypoxic respiratory failure narcotic dependent recurrent admissions came in complaining of pain in the right hip status post mechanical fall treated with the pain medications x-ray of the right hip was negative for any fracture CT right hip also negative for any fracture showed DJD changes. Ejection fraction 35 percent received hemodialysis by Dr. Hernandes. Discharged home on [place] he will follow up with his primary Dr pain management Dr and supervisor dental laboratory Consults/Reason for consult Nephrology for dialysis Operations or Procedures CT right hip Condition at Discharge: Fair Final Diagnosis/Problems List Intractable right hip pain status post mechanical fall: X-rays negative for any fracture, CT hip negative for any fracture ESRD on hemodialysis : Consult for Nephrology Dr hernandes appreciated, patient getting hemodialysis today. Hypertension Coronary artery disease status post stents Chronic current smoking: Counseling Anemia of chronic disease Acute on chronic systolic CHF exacerbation ejection fraction 35 % Acute on chronic Hypoxic respiratory failure Discharge Disposition: Home Discharge Instruct/Medications Diet: Renal Activity: Light activity Follow Up/Referral: Follow up with your primary Dr and supervisor dental laboratory for dialysis Resume all your Previous home medications Medications: [place] 10 Transmitted to [facility] Scheduled Allopurinol (Zyloprim Tablet), 1 TAB PO QAM, (Reported) Amlodipine Besylate (Norvasc Tablet), 2 TAB PO DAILY, (Reported) Aspirin (Aspir-81), 1 TAB PO QAM, (Reported) Atorvastatin Calcium (Atorvastatin Calcium), 1 TAB PO DAILY, (Reported) Uwmfvoghrp-Hunguxdeqsfaje-Luyt (Breztri Aerosphere 160-9-4.8 Mcg/Act), 1 AER IN BID, (Reported) Calcium Acetate (Phosphate Bin (Calcium Acetate), 667 MG PO TIDWM, (Reported) Clopidogrel Bisulfate (Clopidogrel), 75 MG PO DAILY Furosemide (Lasix), 40 MG PO DAILY, (Reported) Hydralazine Hcl (Hydralazine Hcl), 1 TAB PO TID, (Reported) Isosorbide Mononitrate (Isosorbide Mononitrate Er), 60 MG PO DAILY, (Reported) Losartan Potassium (Cozaar), 300 MG PO DAILY, (Reported) Pantoprazole Sodium Sesquihydr (Protonix), 40 MG PO QAM, (Reported) Patiromer Sorbitex Calcium (Veltassa), 1 PKT PO DAILY, (Reported) Ranolazine (Ranolazine ER), 500 MG PO BID, (Reported) Scheduled PRN Albuterol Sulfate (Ventolin), 2.5 MG NEB Q4HP PRN for SHORTNESS OF BREATH, (Reported) Albuterol Sulfate (Ventolin Mdi), 2 PUFF IN Q6HPRN PRN for wheezing, (Reported) Clonidine Hydrochloride (Clonidine Hcl), 1 TAB PO for SBP>160, (Reported) Colchicine (Mitigare), 0.6 MG PO for for gout, (Reported) Cyclobenzaprine Hcl (Cyclobenzaprine Hcl), 1 TAB PO TID PRN Diazepam (Valium Tablet), 2 TAB PO PRN PRN for onset seizure, (Reported) Gabapentin (Gabapentin), 2 CAP PO TID PRN for onset seizure , (Reported) Hydrocodone-Acetaminophen (Hydrocodone Bitartrate/AC 10-325 mg), 1 TAB PO QID PRN Hydromorphone Hcl (Dilaudid), 1 TAB PO TID PRN Hydromorphone Hcl (Dilaudid), 1 TAB PO TID PRN Ipratropium-Albuterol (Ipratropium [place]/Albut), 1 JACOB IN QIDPRN PRN for SHORTNESS OF BREATH, (Reported) 39 (Time Taken for discharge summary 39 minutes) Discharge Statement: "Patient was advised to return to the ER or call 911 if any headaches, dizziness, shortness of breath, chest pain, abdominal pain, bleeding, fevers, or worsening of medical condition. Patient was counseled about treatment plan, medications, possible side effects, patientverbalized understanding. All questions were answered to the best of my ability. This discharge took greater then 30 minutes in planning, reviewing documentation, counseling the patient, and discussing with other team members." ASSESSMENT ASSESSMENT Assessment Intractable right hip pain status post mechanical fall: X-rays negative for any fracture, CT hip negative for any fracture ESRD on hemodialysis : Consult for Nephrology Dr cecilio pollock, patient getting hemodialysis today. Hypertension Coronary artery disease status post stents Chronic current smoking: Counseling Anemia of chronic disease Acute on chronic systolic CHF exacerbation ejection fraction 35 % Acute on chronic Hypoxic respiratory failure Date of Service: Oct 20, 2024 Billing Provider: SHARMIN AN MD Common Visit Codes: [id number] INP/OBS CARE(HIGH) SHARMIN AN MD Oct 20, 2024 09:32
[2024-10-20] MEDS: EPOETIN ALFA-EPBX 10,000 UNIT/1ML VIAL SC ONE (11:13)
== END 2024-10-20 12:47 | disposition home or self-care (01) | DRG 553 ==
LOC: EDBD 08:22 → ER 08:22 → OVERFLOW 12:46 → WEST WING 22:00
PROVIDERS: ADMIT Family Medicine; ATTEND Family Medicine
PROC: 5A1D70Z Performance of Urinary Filtration, Intermittent, Less than 6 Hours Per Day (ICD-10-PCS; principal; 2024-10-18)
PROC: 5A1D70Z Performance of Urinary Filtration, Intermittent, Less than 6 Hours Per Day (ICD-10-PCS; 2024-10-20)
DX: M16.0 Bilateral primary osteoarthritis of hip (principal); I50.23 Acute on chronic systolic (congestive) heart failure; J96.21 Acute and chronic respiratory failure with hypoxia; N18.6 End stage renal disease; I13.2 Hypertensive heart and chronic kidney disease with heart failure and with stage 5 chronic kidney disease, or end stage renal disease; D63.1 Anemia in chronic kidney disease; Z99.2 Dependence on renal dialysis; Z95.1 Presence of aortocoronary bypass graft; E11.22 Type 2 diabetes mellitus with diabetic chronic kidney disease; F17.210 Nicotine dependence, cigarettes, uncomplicated; I25.10 Atherosclerotic heart disease of native coronary artery without angina pectoris; Z95.5 Presence of coronary angioplasty implant and graft; Z91.81 History of falling; Z90.49 Acquired absence of other specified parts of digestive tract; Z88.0 Allergy status to penicillin; W01.0XXA Fall on same level from slipping, tripping and stumbling without subsequent striking against object, initial encounter; Y93.01 Activity, walking, marching and hiking; Y92.098 Other place in other non-institutional residence as the place of occurrence of the external cause; Y99.8 Other external cause status
CPT/HCPCS: 36415; 73502; 73700; 80048; 80053; 82962; 84484; 85025; 87081; 87340; 90935; 94640; 96361; 96374; 96375; 97163; G0378; J1642; J1815; J2405

== ENCOUNTER 2024-10-23 20:24 | Inpatient (IN) | payer MEDICARE ==
[~2024-10-23] VITALS: Ht 188 cm; Wt 109.4 kg
[~2024-10-23 20:24] MED LIST changes: +HYDR-4798 PO
--- NOTE | 2024-10-23 20:55 | ED.PDOC ---
HPI Comments 59 year old male presents to the ED with a chief complaint of chest pain onset today (10/23/24) around 08:00. Patient went to dialysis this morning, was driving home when he began experiencing LT sided chest pain, described as a sharp and stabbing pain, currently rates pain 8. PMHx COPD, ESRD, DM, HTN, cardiac stents -x7. He is currently of 4L NC, has dialysis T, TH, Sat. Denies dizziness, nausea, vomiting, diarrhea, fever, chills, cough, congestion, sore throat, abdominal pain, dysuria, hematuria. No other symptoms or modifying factors present at this time. Chief Complaint: Chest Pain Time Seen by MD: 20:45 Primary Care Provider: UNKNOWN Reviewed Notes: Medications, Allergies Allergies: Coded Allergies: NO KNOWN ALLERGIES (Unverified , 10/23/24) Home Meds Active Scripts Hydrocodone-Acetaminophen (Hydrocodone Bitartrate/AC 10-325 mg) 1 Tab Tab, 1 TAB PO QID PRN, #40 TAB Prov:SHARMIN AN MD 10/20/24 Hydromorphone Hcl (Dilaudid) 2 Mg Tab, 1 TAB PO TID PRN, #40 TAB Prov:SHARMIN AN MD 08/16/24 Cyclobenzaprine Hcl (Cyclobenzaprine Hcl) 5 Mg Tab, 1 TAB PO TID PRN, #30 TAB Prov:SHARMIN AN MD 07/30/24 Hydromorphone Hcl (Dilaudid) 2 Mg Tab, 1 TAB PO TID PRN, #40 TAB Prov:SHARMIN AN MD 07/30/24 Clopidogrel Bisulfate (CLOPIDOGREL) 75 Mg Tab, 75 MG PO DAILY for 30 Days, #30 TAB Prov:LEÓN COLLINS MD 08/16/23 Reported Medications Patiromer Sorbitex Calcium (Veltassa) 8.4 Gm Pow, 1 PKT PO DAILY 07/12/24 Colchicine (Mitigare) 0.6 Mg Cap, 0.6 MG PO PRN for for gout, CAP 07/12/24 Albuterol Sulfate (VENTOLIN MDI) 90 Mcg Ih, 2 PUFF IN Q6HPRN PRN for wheezing, INH 07/12/24 Losartan Potassium (Cozaar) 100 Mg Tab, 300 MG PO DAILY, TAB 07/12/24 Ipratropium-Albuterol (Ipratropium [place]/Albut) 1 Jacob Jacob, 1 JACOB IN QIDPRN PRN for SHORTNESS OF BREATH, ML 07/12/24 Clonidine Hydrochloride (Clonidine Hcl) 0.1 Mg Tab, 1 TAB PO PRN for SBP>160 04/17/24 Furosemide (Lasix) 40 Mg Tab, 40 MG PO DAILY, TAB 03/04/24 Amlodipine Besylate (NORVASC TABLET) 5 Mg Tb, 2 TAB PO DAILY, #30 TAB 5 Refills 03/04/24 Isosorbide Mononitrate (Isosorbide Mononitrate Er) 30 Mg Tab, 60 MG PO DAILY for CAD 09/19/23 Calcium Acetate (Phosphate Bin (Calcium Acetate) 667 Mg Cap, 667 MG PO TIDWM for DIALYSIS, MG 09/19/23 Atorvastatin Calcium (ATORVASTATIN CALCIUM) 40 Mg Tab, 1 TAB PO DAILY for HIGH CHOLESTEROL, #30 TAB 5 Refills 09/19/23 Lxmpaiclrp-Lzydkdogxmoaca-Dtkf (Breztri Aerosphere 160-9-4.8 Mcg/Act) 1 Aer Aer, 1 AER IN BID for COPD, AER 09/19/23 Albuterol Sulfate (Ventolin) 2.5 Mg/3 Ml Nb, 2.5 MG NEB Q4HP PRN for SHORTNESS OF BREATH, INH 09/19/23 Ranolazine (Ranolazine ER) 500 Mg Tab, 500 MG PO BID for CAD, TAB 09/19/23 Diazepam (VALIUM TABLET) 5 Mg Tb, 2 TAB PO PRN PRN for onset seizure, TAB 08/14/23 Hydralazine Hcl (Hydralazine Hcl) 100 Mg Tab, 1 TAB PO TID, #90 TAB 5 Refills 08/14/23 Gabapentin (Gabapentin) 100 Mg Cap, 2 CAP PO TID PRN for onset seizure , #90 CAP 2 Refills Take with diazepam. 08/14/23 Pantoprazole Sodium Sesquihydr (Protonix) 40 Mg Tab, 40 MG PO QAM, #30 TAB 08/14/23 Aspirin (Aspir-81) 81 Mg Tab, 1 TAB PO QAM, #30 TAB 5 Refills 08/14/23 Allopurinol (ZYLOPRIM TABLET) 100 Mg Tb, 1 TAB PO QAM, #30 TAB 5 Refills 08/14/23 Information Source: Patient Mode of Arrival: Wheelchair Severity: Moderate Timing: Hours Duration: Since onset Prehospital treatment: None Location: Chest (L) Radiation: No Radiation Quality: Sharp, Stabbing Onset: At Rest Cardiac Risk Factors: HTN, Diabetes PE Risk Factors: None History of: Similar pain in past Modifying Factors: Nothing Past Medical History PAST MEDICAL HISTORY: COPD, DM, ESRD, HTN Surgical History: Appendectomy, CABG, Cholecystectomy, PTCA Family History Family History: Reviewed,noncontributory to illness, No family hx of Cancer, No family hx of DM, No family hx of Heart [place], No family hx of HTN, No family hx ofKidney [place], No family hx of Liver [place], No family hx of Lung [place], No family hx of Stroke Social History Smoker: Cigarettes Alcohol: Denies ETOH Use Drugs: Denies Drug Use Lives In: Home Constitutional: denies: chills, diaphoresis, fatigue, fever, malaise, sweats, weakness, others EENTM: denies: blurred vision, double vision, ear bleeding, ear discharge, ear drainage, ear pain, ear ringing, eye pain, eye redness, hearing loss, mouth pain, mouth swelling, nasal discharge, nose bleeding, nose congestion, nose pain, photophobia, tearing, throat pain, throat swelling, voice changes, others Respiratory: denies: cough, hemoptysis, orthopnea, SOB at rest, shortness of breath, SOB with excertion, stridor, wheezing, others Cardiovascular: reports: chest pain; denies: dizzy spells, diaphoresis, Dyspnea on exertion, edema, irregular heart beat, left arm pain, lightheadedness, palpitations, PND, syncope, others Gastrointestinal: denies: abdomen distended, abdominal pain, blood streaked bowels, constipated, diarrhea, dysphagia, difficulty swallowing, hematemesis, melena, nausea, poor appetite, poor fluid intake, rectal bleeding, rectal pain, vomiting, others Genitourinary: denies: burning, dysuria, flank pain, frequency, hematuria, incontinence, penile discharge, penile sore, pain, testicle pain, testicle swelling, urgency, others Neurological: denies: dizziness, fainting, headache, left sided numbness, left sided weakness, numbness, paresthesia, pre-existing deficit, right sided numbness, right sided weakness, seizure, speech problems, tingling, tremors, weakness, others Musculoskeletal: denies: back pain, gout, joint pain, joint swelling, muscle pain, muscle stiffness, neck pain, others Integumetry: denies: bruises, change in color, change in hair/nails, dryness, laceration, lesions, lumps, rash, wounds, others Allergic/Immunocompromised: denies: Difficulty Healing, Frequent Infections, Hives, Itching, others Hematologic/Lymphatic: denies: anemia, blood clots, easy bleeding, easy bruising, swollen glands, others Endocrine: denies: excessive hunger, excessive sweating, excessive thirst, excessive urination, flushing, intolerance to cold, intolerance to heat, unexplained weight gain, unexplained weight loss, others Psychiatric: denies: anxiety, bipolar disorder, depression, hopeless, panic disorder, schizophrenia, sleepless, suicidal, others All Other Systems: Reviewed and Negative Physical Exam General Appearance: Normal HEENT: Normal ENT Inspection, Pharynx Normal, TMs Normal Neck: Full Range of Motion, Non-Tender, Normal, Normal Inspection Respiratory: Chest Non-Tender, Lungs Clear, No Accessory Muscle Use, No Respiratory Distress, Normal Breath Sounds Cardiovascular: No Edema, No JVD, No Murmur, No Gallop, Normal Peripheral Pulses, Regular Rate/Rhythm Breast Exam: Deferred Gastrointestinal: No Organomegaly, Non Tender, No Pulsatile Mass, Normal Bowel Sounds, Soft Genitalia: Deferred Pelvic: Deferred Rectal: Deferred Extremities: No calf tenderness, Normal capillary refill, Normal inspection, Normal range of motion, Non-tender, No pedal edema Musculoskeletal : Apperance: Normal Neurologic: Alert, cna II-XII nml as Tested, No Motor Deficits, Normal Affect, Normal Mood, No Sensory Deficits Cerebellar Function: Normal Reflexes: Normal Skin: Dry, Normal Color, Warm Lymphatic: No Adenopathy Was a procedure done? Was a procedure done?: No CP Differential Dx Differential Diagnosis: A-fib, A-Flutter, Angina, Heart Failure, NE, Pulmonary Embolus, V-Fib, V-Tach, Other X-Ray, Labs, Meds, VS Vital Signs Date Time Temp Pulse Resp B/P (MAP) Pulse Ox O2 Delivery O2 Flow Rate FiO2 10/23/24 23:13 98.6 94 16 138/78 (98) 97 98.6 10/23/24 21:38 98 20 98 Room Air 10/23/24 21:38 97.7 98 20 145/71 (95) 98 97.7 10/23/24 21:33 98 16 145/71 10/23/24 20:33 99 10/23/24 20:31 98.1 100 20 148/80 100 98.1 Lab Test 10/23/24 21:51 10/23/24 20:44 Range/Units Troponin I High Sensitivity 47 47 </=54 ng/L White Blood Count 3.6 #L 4.4-10.8 10^3/uL Red Blood Count 3.05 L 4.5-5.90 10^6/uL Hemoglobin 9.5 L 13.5-17.5 g/dL Hematocrit 28.8 L 41.0-53.0 % Mean Corpuscular Volume 94.5 80.0-100.0 fL Mean Corpuscular Hemoglobin 31.0 28.0-32.0 pg Mean Corpuscular Hemoglobin Concent 32.8 32.0-36.0 g/dL Red Cell Distribution Width 18.8 H 11.8-14.3 % Platelet Count 128 L 140-450 10^3/uL Mean Platelet Volume 7.3 6.9-10.8 fL Neutrophils (%) (Auto) 59.0 37.0-80.0 % Lymphocytes (%) (Auto) 13.3 10.0-50.0 % Monocytes (%) (Auto) 17.1 H 0.0-12.0 % Eosinophils (%) (Auto) 9.2 H 0.0-7.0 % Basophils (%) (Auto) 1.4 0.0-2.0 % Neutrophils # (Auto) 2.1 1.6-8.6 10 ^3/uL Lymphocytes # (Auto) 0.5 0.4-5.4 10 ^3/uL Monocytes # (Auto) 0.6 0-1.3 10 ^3/uL Eosinophils # (Auto) 0.3 0-0.8 10 ^3/uL Basophils # (Auto) 0 0-0.2 10 ^3/uL Nucleated Red Blood Cells 0.1 % Prothrombin Time 12.4 H 9.3-11.8 sec Prothrombin Time INR 1.19 H 0.9-1.15 Activated Partial Thromboplast Time 37.0 H 24.5-34.5 SEC Sodium Level 135 L 136-145 mmol/L Potassium Level 4.4 3.5-5.1 mmol/L Chloride Level 93 L 98-107 mmol/L Carbon Dioxide Level 31 20-31 mmol/L Anion Gap 11 5-15 Blood Urea Nitrogen 24 H 9-23 mg/dL Creatinine 4.80 H 0.700-1.30 mg/dL Glomerular Filtration Rate Calc 13 >90 mL/min BUN/Creatinine Ratio 5.0 L 10.0-20.0 Serum Glucose 124 H 74-106 mg/dL Calcium Level 9.4 8.7-10.4 mg/dL Total Bilirubin 0.5 0.2-1.0 mg/dL Aspartate Amino Transferase (AST) 15 13-40 U/L Alanine Aminotransferase (ALT) 11 7-40 U/L Alkaline Phosphatase 111 46-116 U/L Total Protein 6.7 5.7-8.2 g/dL Albumin 4.4 3.2-4.8 g/dL Current Medications Medications (Trade) Dose Ordered Sig/Gerard Route Start Time Stop Time Status Last Admin Ondansetron HCl (Zofran) 4 mg ONCE ONCE IV 10/23/24 20:45 10/23/24 20:49 DC 10/23/24 21:32 Morphine Sulfate 4 mg ONCE ONCE IV 10/23/24 20:45 10/23/24 20:50 DC 10/23/24 21:33 Aspirin 162 mg ONCE ONCE PO 10/23/24 20:45 10/23/24 20:50 DC 10/23/24 21:33 [place] [address] Ph: [phone] DIAGNOSTIC IMAGING Diagnostic Imaging Report : [id number] Signed PATIENT: CARLOS KING ACCT: [id number] UNIT: [id number] : 1965 LOC: ER ROOM / BED: / AGE / SEX: 59 / M ADM STATUS: REG ER SERVICE 44 ORDERING PHYSICIAN: CYNTHIA HARRINGTON MD PROCEDURE(s): CXRP - CHEST PORTABLE REASON: chest pain ORDER NUMBER(s): [id number], ACCESSION NUMBER(s): [id number] CHEST RADIOGRAPH Indication: chest pain Technique: Single frontal view of the chest was obtained Comparison: XY CHEST PORTABLE on DOS: 08/14/24, XY CHEST PORTABLE on DOS: 07/24/24, XY CHEST PORTABLE on DOS: 07/19/24 FINDINGS: Lines and Tubes: None Lungs: Interstitial prominence Indistinctness of bilateral hemidiaphragm. No pneumothorax. Cardiomediastinal contours: Mild cardiomegaly. Bones: No acute osseous abnormality. IMPRESSION: Mild cardiomegaly with findings suggestive of congestive heart failure /atypical pneumonia. Possible trace bilateral pleural effusion. ATED BY: MARZENA FONTENOT DO DICTATED DATE/TIME: 10/23/242147 SIGNED BY: MARZENA FONTENOT DO SIGNED DATE/TIME: 10/23/242147 CC: Time of 1ST Reevaluation: 21:15 Reevaluation 1ST: Unchanged Patient Education/Counseling: Diagnosis, Treatment, Prognosis Family Education/Counseling: No Family Present Additional Information The following tests were ordered, and results were reviewed by me: EKG-x3, TROP -x3, CBC, CMP, PTPTT, ROSELINE CHEST I reviewed and agreed with the following test results read by other providers: ROSELINE CHEST Kinjal discussed treatment and results with medical personnel and: patient Comprehensive systems review obtained and negative except for what is stated in the HPI. SEPSIS Sepsis Screen Date sepsis recognized/suspect: Oct 23, 2024 Time Sepsis recognized/suspect: 2034 Recent Procedure: No On Antibiotic Therapy: No Respiratory Rate >20: No Heart Rate >90: Yes Temp<36 C (96.8 F) or >38.3 C: No SBP <90 or MAP <65 mmHG: No New Acute Mental Status Change: No Is the patient on CPAP, BIPAP,: No Physician Orders Electrocardigram (10/23/24 20:26) Troponin-I Hs (10/23/24 23:26) Electrocardigram (10/23/24 21:26) Electrocardigram (10/23/24 23:26) Chest Portable (10/23/24 20:45) Vital Signs Date Time Temp Pulse Resp B/P (MAP) Pulse Ox O2 Delivery O2 Flow Rate FiO2 10/23/24 23:13 98.6 94 16 138/78 (98) 97 98.6 10/23/24 21:38 98 20 98 Room Air 10/23/24 21:38 97.7 98 20 145/71 (95) 98 97.7 10/23/24 21:33 98 16 145/71 10/23/24 20:33 99 10/23/24 20:31 98.1 100 20 148/80 100 98.1 Laboratory Tests Test 10/23/24 20:44 White Blood Count 3.6 10^3/uL (4.4-10.8) #L Medications Medications Dose Ordered Sig/Gerard Route Start Time Stop Time Status Last Admin Dose Admin Aspirin 162 mg ONCE ONCE PO 10/23/24 20:45 10/23/24 20:50 DC 10/23/24 21:33 Morphine Sulfate 4 mg ONCE ONCE IV 10/23/24 20:45 10/23/24 20:50 DC 10/23/24 21:33 Ondansetron HCl 4 mg ONCE ONCE IV 10/23/24 20:45 10/23/24 20:49 DC 10/23/24 21:32 Departure 1 Departure Time of Disposition: 23:30 Impression: Primary Impression: Acute chest pain Additional Impressions: End stage renal disease on dialysis Acute coronary syndrome Disposition: ADMITTED INPATIENT Condition: Guarded Discharged With: Self Comments 59-year-old male with known coronary artery disease and end-stage renal failure on dialysis Tuesdays and Saturdays now is complaining of typical chest pain. Patient was given aspirin and morphine. Patient will need admission for further cardiac workup and supportive care Critical Care Note Critical Care Time?: Yes (35 min-critical care time only) Critical care comment: Total critical care time: Approximately 36 minutes Due to a high probability of clinically significant, life threatening deterioration, the patient required my highest level of preparedness to intervene emergently and I personally spent this critical care time directly and personally managing the patient. This critical care time included obtaining a history; examining the patient; pulse oximetry; ordering and review of studies; arranging urgent treatment with development of a management plan; evaluation of patient's response to treatment; frequent reassessment; and, discussions with other providers. This critical care time was performed to assess and manage the high probability of imminent, life-threatening deterioration that could result in multi-organ failure. It was exclusive of separately billable procedures and treating other patients. Stability Stability form required: No Heart Score Heart Score: Heart Score Response (Comments) Value History Moderate Suspicious 1 EKG Repolarization Disturb 1 Age 45-64 1 Risk Factors >3 or Hx ASHD 2 Troponin 1-2 x's Normal limit 1 Total 6 I personally scribed for CYNTHIA HARRINGTON MD ([email or web address]) on 10/23/24 at 20:55. Electronically submitted by Tori Dumont ([email or web address]). I personally scribed for CYNTHIA HARRINGTON MD ([email or web address]) on 10/23/24 at 20:56. Electronically submitted by Tori Dumont ([email or web address]). I personally scribed for CYNTHIA HARRINGTON MD ([email or web address]) on 10/23/24 at 21:52. Electronically submitted by Tori Dumont ([email or web address]). CYNTHIA HARRINGTON MD Oct 23, 2024 20:55
[2024-10-23 21:17] LABS: Hematocrit 28.8 % (41.0-53.0); Hemoglobin 9.5 g/dL (13.5-17.5); Mean Corpuscular Hemoglobin 31.0 pg (28.0-32.0); Mean Corpuscular Volume 94.5 fL (80.0-100.0); Nucleated Red Blood Cells % 0.1 %
[2024-10-23] MEDS: ONDANSETRON HCL 4 MG/2 ML VIAL IV ONE (21:32)
[2024-10-23] MEDS: MORPHINE SULFATE 4 MG/ML SYR/VIAL IV ONE (21:33)
[2024-10-23 21:50] LABS: INR 1.19 (0.9-1.15); Partial Thromboplastin Time 37.0 SEC (24.5-34.5); Prothrombin Time 12.4 sec (9.3-11.8)
--- NOTE | 2024-10-23 21:51 | DVH ---
CHEST RADIOGRAPH Indication: chest pain Technique: Single frontal view of the chest was obtained Comparison: XY CHEST PORTABLE on DOS: 08/14/24, XY CHEST PORTABLE on DOS: 07/24/24, XY CHEST PORTABLE o n DOS: 07/19/24 FINDINGS: Lines and Tubes: None Lungs: Interstitial prominence Indistinctness of bilateral hemidiaphragm. No pneumothorax. Cardiomediastinal contours: Mild cardiomegaly. Bones: No acute osseous abnormality. IMPRESSION: Mild cardiomegaly with findings suggestive of congestive heart failure /atypical pneumonia. Possible trace bilateral pleural effusion.
[2024-10-23 22:33] LABS: Alanine Aminotransferase 11 U/L (7-40); Albumin 4.4 g/dL (3.2-4.8); Alkaline Phosphatase 111 U/L (46-116); Anion Gap 11 (5-15); BUN/Creatinine Ratio 5.0 (10.0-20.0); Bilirubin, Total 0.5 mg/dL (0.2-1.0); Calcium 9.4 mg/dL (8.7-10.4); Potassium 4.4 mmol/L (3.5-5.1); Total Protein 6.7 g/dL (5.7-8.2)
[2024-10-23 22:36] LABS: Blood Urea Nitrogen 24 mg/dL (9-23); Carbon Dioxide 31 mmol/L (20-31); Chloride 93 mmol/L (98-107); Glucose 124 mg/dL (74-106); Sodium 135 mmol/L (136-145)
[2024-10-24] VITALS (20 sets, daily range): BP systolic 138–169; BP diastolic 78–97; PULSE 83–97; RESP 16–20; TEMP 97.4–98.6; O2SAT 90–100
--- NOTE | 2024-10-24 01:13 | DVHHPRES ---
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 The patient presented to the ED due to acute chest pain that started after dialysis this afternoon. Patient reports that he went for hemodialysis and afterwards he started feeling acute chest pain in the left side of the chest described as a sharp pain in nature that was localized in the left side of the chest and radiates towards the center of the chest. The patient rated the pain at that time as 9/10 on the pain scale associated with shortness of breaths. Patient reports that similar type of pain occurred previously in the last few months. The patient denies cough or sputum production. Patient also denies fever/chills, malaise or any other sick contacts. On admission, patient had very minimal chest pain and more pronounced shortness of breaths. Patient was started on 2 L of oxygen through nasal cannula. Initial chest x-ray showing bilateral patchy infiltrates on bilateral lungs more pronounced in the right lung lopez with possible con solidation/congestion and possible vascular prominence. Troponins were negative at 47 and EKG was showing sinus rhythm with nonspecific T-wave inversion in leads II and AVF but no ST segment elevation or depression. Upon my examination, patient had bilateral lower extremity swelling, 2+ pitting edema, bilateral crackles on both lung lopez and decreased breath sounds in the left lung base. We started the patient back on furosemide IV 40 mg daily since the patient still produce minimal amount of urine, we also resumed Entresto one tab b.i.d., metoprolol succinate 25 mg daily and rest of home medications. We will order bilateral lower extremity venous Doppler to rule out DVT, since the patient was also complaining of mild lower extremity pain. We will admit the patient for further assessment and management. 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 Home medications: Amlodipine 10 mg daily, aspirin 81 mg daily, atorvastatin 40 mg daily, clopidogrel 75 mg daily, furosemide 40 mg daily, hydralazine 100 mg 3 times a day, isosorbide mononitrate 60 mg daily, metoprolol succinate 25 mg daily, pantoprazole 40 mg daily, Entresto 24-26 mg b.i.d., gabapentin 100 mg b.i.d., senna 8.6 mg b.i.d. as needed. Surgerie: Denies Social history: Denies alcohol consumption, drug ingestion or smoking. Cardiovascular: CHF, HTN, hyperipidemia Pulmonary: COPD Endocrine: Diabetes Past Surgical History: None Family History: None Smoke: No ALCOHOL: none Drugs: None Lives: with Family Domestic Violence: Neg Review of Systems Constitutional: No: Fever, Chills, Sweats, Weakness, Malaise, Other Eyes: No: Pain, Vision change, Conjunctivae inflammation, Eyelid inflammation, Other, Redness ENT: No: Ear pain, Ear discharge, Nose pain, Nose discharge, Nose congestion, Mouth pain, Mouth swelling, Throat pain, Throat swelling, Other Respiratory: Shortness of breath, SOB with excertion; No: Cough, Dry, Wheezing, Hemoptysis, Pleuritic Pain, Sputum, Wheezing, Other Cardiovascular: Chest Pain, Paroxysmal Noc. Dyspnea, Edema; No: Palpitations, Orthopnea, Lt Headedness, Other Gastrointestinal: No: Nausea, Vomiting, Abdominal Pain, Diarrhea, Constipation, Melena, Hematochezia, Other Genitourinary: No Dysuria, No Frequency, No Incontinence, No Hematuria, No Retention, No Other Musculoskeletal: No: other, neck pain, shoulder pain, arm pain, back pain, hand pain, leg pain, foot pain Skin: Other (Bilateral lower extremity swelling); No: Rash, Lesions, Jaundice, Bruising Neurological: No: Weakness, Numbness, Incoordination, Change in speech, Confusion, Seizures, Other Allergies: Coded Allergies: NO KNOWN ALLERGIES (Unverified , 10/23/24) Medications Current Medications Medications Dose Ordered Sig/Gerard Route Start Time Stop Time Status Last Admin Dose Admin Acetaminophen 650 mg Q6HP PRN PO 10/24/24 00:45 UNV Enoxaparin Sodium 40 mg DAILY SC 10/24/24 10:00 UNV Furosemide 40 mg DAILY IV 10/24/24 00:45 UNV Ceftriaxone Sodium 50 ml @ 100 mls/hr DAILY IV 10/24/24 10:00 UNV Azithromycin 250 ml @ 125 mls/hr DAILY IV 10/24/24 01:15 UNV Sacubitril/ Valsartan 1 tab BID PO 10/24/24 00:45 UNV Albuterol 2.5 mg Q6HR NEB 10/24/24 02:00 UNV Ipratropium [place] 0.5 mg Q6HR NEB 10/24/24 02:00 UNV Metoprolol Succinate 25 mg DAILY PO 10/24/24 10:00 UNV Aspirin 81 mg DAILY PO 10/24/24 10:00 UNV Atorvastatin Calcium 80 mg DAILY PO 10/24/24 10:00 UNV Exam Vital Signs Vital Signs Date Time Temp Pulse Resp B/P (MAP) Pulse Ox O2 Delivery O2 Flow Rate FiO2 10/23/24 23:13 98.6 94 16 138/78 (98) 97 98.6 10/23/24 21:38 Room Air General Appearance: Alert, Oriented X3, Cooperative, mild distress HEENT: Atraumatic, PERRLA, EOMI, Mucous membr. moist/pink Respiratory: Normal air movement, Other (There is bilateral lung crackles on both lung bases and decreased breath sounds on left lung base.) Cardiovascular: Regular rate, Normal S1, Normal S2, No murmurs Abdominal: Normal bowel sounds, Soft, No tenderness, No hepatospenomegaly Extremities: No clubbing, No cyanosis, Normal pulses, Other (There is significant bilateral lower extremity swelling 2+ pitting edema extending from the foods all the way to the midtibia bilaterally) Skin: No rashes, No breakdown, No significant lesion Neuro: Normal speech, Strength at 5/5 X4 ext, Normal tone, Sensation intact, Cranial nerves 3-12 NL, Reflexes 2+, Other (Patient is wheelchair-bound and occasionally is able to walk with a cane/walker) Psych/Mental Status: Mental status NL, Mood NL Labs/Xrays Labs Test 10/23/24 23:29 10/23/24 20:44 Range/Units Troponin I High Sensitivity 49 </=54 ng/L White Blood Count 3.6 #L 4.4-10.8 10^3/uL Red Blood Count 3.05 L 4.5-5.90 10^6/uL Hemoglobin 9.5 L 13.5-17.5 g/dL Hematocrit 28.8 L 41.0-53.0 % Mean Corpuscular Volume 94.5 80.0-100.0 fL Mean Corpuscular Hemoglobin 31.0 28.0-32.0 pg Mean Corpuscular Hemoglobin Concent 32.8 32.0-36.0 g/dL Red Cell Distribution Width 18.8 H 11.8-14.3 % Platelet Count 128 L 140-450 10^3/uL Mean Platelet Volume 7.3 6.9-10.8 fL Neutrophils (%) (Auto) 59.0 37.0-80.0 % Lymphocytes (%) (Auto) 13.3 10.0-50.0 % Monocytes (%) (Auto) 17.1 H 0.0-12.0 % Eosinophils (%) (Auto) 9.2 H 0.0-7.0 % Basophils (%) (Auto) 1.4 0.0-2.0 % Neutrophils # (Auto) 2.1 1.6-8.6 10 ^3/uL Lymphocytes # (Auto) 0.5 0.4-5.4 10 ^3/uL Monocytes # (Auto) 0.6 0-1.3 10 ^3/uL Eosinophils # (Auto) 0.3 0-0.8 10 ^3/uL Basophils # (Auto) 0 0-0.2 10 ^3/uL Nucleated Red Blood Cells 0.1 % Prothrombin Time 12.4 H 9.3-11.8 sec Prothrombin Time INR 1.19 H 0.9-1.15 Activated Partial Thromboplast Time 37.0 H 24.5-34.5 SEC Sodium Level 135 L 136-145 mmol/L Potassium Level 4.4 3.5-5.1 mmol/L Chloride Level 93 L 98-107 mmol/L Carbon Dioxide Level 31 20-31 mmol/L Anion Gap 11 5-15 Blood Urea Nitrogen 24 H 9-23 mg/dL Creatinine 4.80 H 0.700-1.30 mg/dL Glomerular Filtration Rate Calc 13 >90 mL/min BUN/Creatinine Ratio 5.0 L 10.0-20.0 Serum Glucose 124 H 74-106 mg/dL Calcium Level 9.4 8.7-10.4 mg/dL Total Bilirubin 0.5 0.2-1.0 mg/dL Aspartate Amino Transferase (AST) 15 13-40 U/L Alanine Aminotransferase (ALT) 11 7-40 U/L Alkaline Phosphatase 111 46-116 U/L Total Protein 6.7 5.7-8.2 g/dL Albumin 4.4 3.2-4.8 g/dL SEPSIS Sepsis Screen Date sepsis recognized/suspect: Oct 23, 2024 Time Sepsis recognized/suspect: 2140 Recent Procedure: No On Antibiotic Therapy: No Respiratory Rate >20: No Heart Rate >90: Yes Temp<36 C (96.8 F) or >38.3 C: No SBP <90 or MAP <65 mmHG: No New Acute Mental Status Change: No Is the patient on CPAP, BIPAP,: No Physician Orders Electrocardigram (10/23/24:26) Electrocardigram (10/23/24:) Electrocardigram (10/23/24 23:) Chest Portable (10/23/24 20:45) Admit (10/24/24 00:32) Code Status (10/24/24:32) Vital Signs .PER UNIT PROTOCOL (10/24/24 00:32) Review Orders With Adm.Md (10/24/24 00:32) Encourage Activity As Tolerate (10/24/24 00:32) Acetaminophen Tablet (Tylenol Tablet) (10/24/24 00:45) Notify Md Of Changes From Base (10/24/24 00:32) Advance Directive (10/24/24 00:32) Basic Metabolic Panel (10/24/24 04:00) Urinalysis (10/24/24:32) Complete Blood Count (10/24/24 04:00) Lipid Panel (10/24/24 00:32) Patient Condition (10/24/24 00:32) Allergies (10/24/24 00:32) Drug Screen (10/24/24 00:32) Hemoglobin A1c (10/24/24 00:32) Enoxaparin Sodium (Lovenox) (10/24/24 10:00) Furosemide Injection (Lasix Injection) (10/24/24 00:45) Cardiac Diet-2gna,Lofat,Lochol (10/24/24 Breakfast) Strict I & O QSHIFT (10/24/24 00:37) Ceftriaxone 1gm/50ml D5w (Rocephin) (10/24/24 10:00) Azithromycin 500mg/ 250ml (Zithromax 50 (10/24/24 01:15) Sacubitril-Valsartan (Entresto 24-26 Mg (10/24/24 00:45) Albuterol Medneb (Ventolin Medneb) (10/24/24 02:00) Ipratropium Medneb (Atrovent Medneb) (10/24/24 02:00) Metoprolol Xl Succinate (Toprol Xl) (10/24/24 10:00) Aspirin Tablet (10/24/24 10:00) Atorvastatin (Lipitor) (10/24/24 10:00) Bilat Lower Dvt (10/24/24 00:43) D-Dimer (10/24/24 00:43) Covid19 Antigen Kelsie (10/24/24 ) Rapid Influenza A&B (10/24/24 00:48) Respiratory Culture W/ Gs (10/24/24 00:48) Drug Screen (10/24/24 00:49) Vital Signs Date Time Temp Pulse Resp B/P (MAP) Pulse Ox O2 Delivery O2 Flow Rate FiO2 10/23/24 23:13 98.6 94 16 138/78 (98) 97 98.6 10/23/24 22:03 94 20 138/78 10/23/24 21:38 98 20 98 Room Air 10/23/24 21:38 97.7 98 20 145/71 (95) 98 97.7 10/23/24 21:33 98 16 145/71 10/23/24 20:33 99 10/23/24 20:31 98.1 100 20 148/80 100 98.1 Laboratory Tests Test 10/23/24 20:44 White Blood Count 3.6 10^3/uL (4.4-10.8) #L Medications Medications Dose Ordered Sig/Gerard Route Start Time Stop Time Status Last Admin Dose Admin Aspirin 162 mg ONCE ONCE PO 10/23/24 20:45 10/23/24 20:50 DC 10/23/24 21:33 162 MG Morphine Sulfate 4 mg ONCE ONCE IV 10/23/24 20:45 10/23/24 20:50 DC 10/23/24 21:33 4 MG Ondansetron HCl 4 mg ONCE ONCE IV 10/23/24 20:45 10/23/24 20:49 DC 10/23/24 21:32 4 MG Assessment/Plan Assessment/Plan Assessment/plan Acute chest pain R/O ACS Acute hypoxic respiratory failure likely due to CHF exacerbation Acute on chronic systolic heart failure exacerbation (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 -ordered BNP, troponins came back negative at 47. -EKG showed sinus rhythm with nonspecific T-wave inversion in leads II, and AVL, no ST segment elevation or depression -last echocardiogram performed on 08/25/24 showed an LVEF of 45% with high right ventricular systolic pressure -ordered bilateral lower extremity venous Doppler -consult Nephrology for end-stage renal disease on hemodialysis, to resume hemodialysis -start IV furosemide 40 mg daily -start IV azithromycin and ceftriaxone -start albuterol and ipratropium med nebs q.6 scheduled -resume metoprolol succinate 25 mg daily, Entresto 24-26 mg tab b.i.d., aspirin 81 mg daily, atorvastatin 80 mg daily -start cardiac diet -strict in's and out Goals of care discussed with the patient at bedside, full code Plan discussed with Dr. Waller Plan discussed with: Patient My Orders Orders - GEOVANI SEPULVEDA RESIDENT Procedure Category Date Status Time Admit ADMIT 10/24/24 Transmitted 00:32 Code Status CODE 10/24/24 Transmitted 00:32 Vital Signs SEAN 10/24/24 In Process 00:32 Review Orders With SEAN 10/24/24 In Process Adm. 00:32 Encourage Activity As SEAN 10/24/24 In Process Tolerate 00:32 Acetaminophen Tablet PHA 10/24/24 Logged (Tylenol Tablet) 00:45 Notify Of Changes SEAN 10/24/24 In Process From Base 00:32 Advance Directive SEAN 10/24/24 In Process 00:32 Basic Metabolic Panel LAB 10/24/24 Logged 04:00 Urinalysis LAB 10/24/24 Logged 00:32 Complete Blood Count LAB 10/24/24 Logged 04:00 Lipid Panel LAB 10/24/24 Logged 00:32 Patient Condition ORDERS 10/24/24 Transmitted 00:32 Allergies SEAN 10/24/24 In Process 00:32 Drug Screen LAB 10/24/24 Logged 00:32 Hemoglobin A1c LAB 10/24/24 Logged 00:32 Enoxaparin Sodium PHA 10/24/24 Logged (Lovenox) 10:00 Furosemide Injection PHA 10/24/24 Logged (Lasix Injection) 00:45 Cardiac DIET 10/24/24 Transmitted Diet-2gna,Lofat,Lochol Breakfast Strict I & O SEAN 10/24/24 In Process 00:37 Ceftriaxone 1gm/50ml PHA 10/24/24 Logged D5w (Rocephin) 10:00 Azithromycin 500mg/ PHA 10/24/24 Logged 250ml (Zithromax 50 01:15 Sacubitril-Valsartan PHA 10/24/24 Logged (Entresto 24-26 Mg 00:45 Albuterol Medneb PHA 10/24/24 Logged (Ventolin Medneb) 02:00 Ipratropium Medneb PHA 10/24/24 Logged (Atrovent Medneb) 02:00 Metoprolol Xl PHA 10/24/24 Transmitted Succinate (Toprol Xl) 10:00 Aspirin Tablet PHA 10/24/24 Transmitted 10:00 Atorvastatin (Lipitor) PHA 10/24/24 Transmitted 10:00 Bilat Lower Dvt US 10/24/24 Transmitted 00:43 D-Dimer LAB 10/24/24 Logged 00:43 Covid19 Antigen Kelsie LAB 10/24/24 Transmitted Rapid Influenza A&B LAB 10/24/24 Transmitted 00:48 Respiratory Culture GAETANO 10/24/24 Transmitted W/ Gs 00:48 Drug Screen LAB 10/24/24 Verified 00:49 Date of Service: Oct 24, 2024 Billing Provider: JOEL WALLER MD Common Visit Codes: [id number] INP/OBS CARE (HIGH) Secondary Visit Codes: [id number] CARE PLAN 30 MINUTES RASHAUNGEOVANI BOSS RESIDENT Oct 24, 2024 01:13
--- NOTE | 2024-10-24 01:42 | DVH ---
Bilateral lower extremity venous duplex Clinical History: R/O DVT Comparison: None Technique: Duplex Doppler evaluation of the deep venous systems of both lower extremities from the common femora l veins to the popliteal veins including color Doppler and spectral/pulsed waveform analysis was perf ormed. Findings: RIGHT SIDE: The common femoral vein demonstrates appropriate compressibility and waveform variability. There is compressibility/patency of the great saphenous vein at the proximal thigh. The femoral vein demonstrates appropriate compressibility and waveform variability. The deep femoral vein demonstrates appropriate compressibility and waveform variability. The popliteal vein demonstrates appropriate compressibility and waveform variability. There is normal compressibility at the tibioperoneal trunk. LEFT SIDE: The common femoral vein demonstrates appropriate compressibility and waveform variability. There is compressibility/patency of the great saphenous vein at the proximal thigh. The femoral vein demonstrates appropriate compressibility and waveform variability. The deep femoral vein demonstrates appropriate compressibility and waveform variability. The popliteal vein demonstrates appropriate compressibility and waveform variability. There is normal compressibility at the tibioperoneal trunk. Impression: 1. No right or left femoropopliteal venous thrombosis.
[2024-10-24] MEDS: ALBUTEROL SULF 2.5 MG/0.5ML(0.5%) NEB SOLN NEB SCH (02:02)
[2024-10-24] MEDS: IPRATROPIUM BROM 0.5 MG/2.5ML INH SOL NEB SCH (02:02)
[2024-10-24 02:27] LABS: COVID19 ANTIGEN SOFIA FIA NEGATIVE (NEGATIVE)
[2024-10-24] MEDS: FUROSEMIDE 40 MG/4 ML VIAL IV SCH (03:18)
[2024-10-24] MEDS: SACUBITRIL-VALSARTAN 24mg/26mg TAB PO SCH (03:19)
--- NOTE | 2024-10-24 03:44 | DVH ---
Procedure: CT CHEST WITHOUT CONTRAST Reason for study/Clinical History: Eval lung parenchyma, R/O consolidation/pleural eff Comparison Study: XY CHEST PORTABLE on DOS: 10/23/24, XY CHEST PORTABLE on DOS: 08/14/24, XY CHEST PORT ABLE on DOS: 07/24/24, XY CHEST PORTABLE on DOS: 07/19/24, XY CHEST PORTABLE on DOS: 05/02/24 Exam Date: 10/24/2024 03:21 AM TECHNIQUE: Multidetector CT of the chest was performed from the lung apices to the upper abdomen with out the use of intravenous contract. Axial, coronal and sagittal multiplanar reformats were performed . Radiation Dose Information: CT Dose: CTDI volume is 29.06 mGy. Dose-length product is 1144.01 mGy*cm The dose indicators for CT are the volume Computed Tomography (CT) Dose Index (CTDIvol) and the Dose Length Product (DLP), and are measured in units of mGy and mGy-cm, respectively. These indicators are not patient dose, but values generated from the CT scanner acquisition factors. The report includes radiation exposure data for exposures received during this examination. FINDINGS: Lower neck: Normal thyroid. Lungs: Large right pleural effusion. Small left pleural effusion. Heart/Vascular Structures: Cardiomegaly. Coronary artery calcifications. Lymph Nodes: No adenopathy Pleura: No pleural effusion or significant pneumothorax. Musculoskeletal: No acute osseous abnormality. Soft tissues: Normal. Upper abdomen: Hepatic steatosis. IMPRESSION: Cardiomegaly with CHF. Large right pleural effusion. Small left pleural effusion. Radiation optimization: All CT scans at this facility use at least one of these dose optimization sammy hniques: automated exposure control mA and/or kV adjustment per patient size (includes targeted exam s where dose is matched to clinical indication) or iterative reconstruction.
[2024-10-24] MEDS: cefTRIAXone 1GM/50ML D5W 50 ML IV ONE (03:59)
[2024-10-24 04:05] LABS: Urine Protein, UAD 3+ (Negative)
[2024-10-24 04:11] LABS: Benzodiazephine Screen, Urine Pos (NEGATIVE)
[2024-10-24 04:12] LABS: Opiate Scree,Urine Neg (NEGATIVE)
[2024-10-24 04:23] LABS: Amphetamine Screen, Urine Neg (NEGATIVE); Barbiturate Scree,Urine Neg (NEGATIVE); Cannabinoid Screen, Urine Neg (NEGATIVE); Cocaine Screen, Urine Neg (NEGATIVE); Phencyclidine Screen, Urine Neg (NEGATIVE)
[2024-10-24] MEDS ORDERED: AZITHROMYCIN 500MG/ 250ML 250 ML IV ONE (04:30)
[2024-10-24] MEDS: AZITHROMYCIN 500MG/ 250ML 250 ML IV ONE (04:41)
[2024-10-24] MEDS: ACETAMINOPHEN 325 MG TAB PO PRN (08:15)
--- NOTE | 2024-10-24 08:37 | DVHPNRES ---
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 He reported that the started after his last dialysis when he was walking up to his car. He described pain as a sharp, localized on left side of the chest, radiates towards the center of the chest, 9/10 on the pain scale associated with shortness of breaths. He reports that similar type of pain occurred previously in the last few months. He denies fever/chills, malaise or any other sick contacts. On arrival, he had tachycardia, tachypnea, was started on 4 L of oxygen through nasal cannula. Initial chest x-ray showing bilateral patchy infiltrates on bilateral lungs more pronounced in the right lung lopez with possible consolidation/congestion and possible vascular prominence. Troponins were negative at 47 and EKG was showing sinus rhythm with nonspecific T-wave inversion in leads II and AVF but no ST segment elevation or depression. 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 Lives in home Home medications: Amlodipine, aspirin, atorvastatin, clopidogrel, furosemide, hydralazine, isosorbide mononitrate, metoprolol succinate, pantoprazole, Entresto.,senna ROS: Constitutional: Denies weight loss, fever and chills. HEENT: Denies changes in vision and hearing. Respiratory: Shortness of breath and cough Cardiovascular: Chest discomfort . No palpitations GI: Denies abdominal pain, nausea, vomiting and diarrhea. : Denies dysuria and urinary frequency. Musculoskeletal: Denies myalgias and joint pain Skin: Denies rash and pruritus. Neurological: Denies dizziness, headache, vision or hearing problems 10/2024: He was examined at bedside, vitals are stable, on 3 L oxygen, saturating 97%. He complained had very minimal chest pain, shortness of breaths. He was drowsy, falling back to sleep between conversation. Objective vital signs Vital Sign Date Time Temp Pulse Resp B/P (MAP) Pulse Ox O2 Delivery O2 Flow Rate FiO2 10/24/24 05:43 95 16 97 10/24/24 05:25 Nasal Cannula 3.0 10/24/24 05:25 32 10/24/24 04:45 97.4 169/90 (116) 97.4 Total Intake and Output 10/23/24 10/23/24 10/24/24 15:00 23:00 07:00 Intake Total 0 ml Balance 0 ml medications Current Medications Medications Dose Ordered Sig/Gerard Route Start Time Stop Time Status Last Admin Dose Admin Acetaminophen 650 mg Q6HP PRN PO 10/24/24 00:45 10/24/24 08:15 650 MG Enoxaparin Sodium 40 mg DAILY SC 10/24/24 10:00 Future Hold Furosemide 40 mg DAILY IV 10/24/24 00:45 10/24/24 03:18 40 MG Ceftriaxone Sodium 50 ml @ 100 mls/hr DAILY@0900 IV 10/25/24 09:00 Azithromycin 250 ml @ 125 mls/hr DAILY IV 10/25/24 10:00 Sacubitril/ Valsartan 1 tab BID PO 10/24/24 00:45 10/24/24 03:19 1 TAB Albuterol 2.5 mg Q6HR NEB 10/24/24 02:00 10/24/24 05:25 2.5 MG Ipratropium [place] 0.5 mg Q6HR NEB 10/24/24 02:00 10/24/24 05:25 0.5 MG Metoprolol Succinate 25 mg DAILY PO 10/24/24 10:00 Aspirin 81 mg DAILY PO 10/24/24 10:00 Atorvastatin Calcium 80 mg DAILY PO 10/24/24 10:00 Acetaminophen/ Hydrocodone Bitart 1 tab Q6HPRN PRN PO 10/24/24 08:30 UNV laboratory and microbiology Laboratory Tests 10/23/24 20:44 Test 10/23/24 20:44 Range/Units Serum Glucose 124 H 74-106 mg/dL Problem List/Assessment/Plan Problem List/Assessment/Plan Sepsis likely due to pneumonia, Possible Gram-positive/Gram-negative bacterial pneumonia Possible atypical/viral pneumonia Possible COPD exacerbation likely due to above Acute hypoxic respiratory failure likely due to CHF exacerbation/ PNA Acute on chronic systolic heart failure exacerbation (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 Large right pleural effusion. Small left pleural effusion. CXR shows: Mild cardiomegaly with findings suggestive of congestive heart failure /atypical pneumonia. Possible trace bilateral pleural effusion. Labs show leukopenia Lactic acid ordered. Holding off IV fluids because of exacerbation of heart failure and end-stage renal disease Continue furosemide, Entresto, metoprolol Strict I&O Continue azithromycin, ceftriaxone Continue pain management, med neb treatment Acute chest pain ruled out ACS Possible pulmonary hypertension Bilateral lower extremity swelling with pain, ruled out DVT Urinary retention Chronic kidney disease/ end-stage renal disease on hemodialysis Nephrology consulted DIET: Cardiac DVT PROPHYLAXIS: Lovenox CODE STATUS: Goals of care discussed with patient at bedside for more than 35 minutes. Full code DISPOSITION: Med/surge Patient's status and plan discussed with the patient. Case discussed with Dr. Núñez. Plan discussed with: Patient Date of Service: Oct 24, 2024 Billing Provider: ABDULAZIZ NÚÑEZ MD Common Visit Codes: [id number] INP/OBS CARE(HIGH) VALERIE MACHADO RESIDENT Oct 24, 2024 08:37 ABDULAZIZ NÚÑEZ MD Oct 24, 2024 22:31
[2024-10-24] MEDS ORDERED: ENOXAPARIN SOD 40 MG/0.4 ML SYRINGE SC SCH (10:00)
[2024-10-24] MEDS: ATORVASTATIN 20 MG TAB PO SCH (10:35)
[2024-10-24] MEDS: METOPROLOL SUCCINATE XL 50 MG TAB PO SCH (10:36)
[2024-10-24] MEDS: HYDROcodone-ACET 5/325MG TAB PO PRN (10:38)
--- NOTE | 2024-10-24 10:57 | ECG ---
[facility] Test Date: 2024-10-23 Test Time: 20:33:40 Pat Name: CARLOS KING Department: ED Room: 0293 B Gender: M [employer]: yani : 1965 Requested By: CYNTHIA HARRINGTON Order Number: [id number] Reading MD: Aquiles Hobbs Measurements Intervals [place] Rate: 99 P: 91 KS: 176 QRS: 96 QRSD: 106 T: 155 QT: 360 QTc: 462 Interpretive Statements Sinus rhythm Right axis deviation Abnormal T, consider ischemia, lateral leads Electronically Signed On 10-24-2024 22:30:58 PDT by Aquiles Hobbs Please click the below link to view image of tracing.
--- NOTE | 2024-10-24 10:58 | ECG ---
[facility] Test Date: 2024-10-23 Test Time: 22:59:49 Pat Name: CARLOS KING Department: ED Room: 0293 B Gender: M Mine Manager: : 1965 Requested By: CYNTHIA HARRINGTON Order Number: [id number] Reading MD: Aquiles Hobbs Measurements Intervals [place] Rate: 94 P: 94 CT: 187 QRS: 104 QRSD: 108 T: 153 QT: 357 QTc: 447 Interpretive Statements Sinus rhythm Right axis deviation Abnormal T, consider ischemia, lateral leads Baseline wander in lead(s) V5 Electronically Signed On 10-24-2024 22:31:25 PDT by Aquiles Hobbs Please click the below link to view image of tracing.
[2024-10-24 12:04] LABS: Hematocrit 27.7 % (41.0-53.0); Hemoglobin 9.0 g/dL (13.5-17.5); Mean Corpuscular Hemoglobin 30.7 pg (28.0-32.0); Mean Corpuscular Volume 95.1 fL (80.0-100.0); Nucleated Red Blood Cells % 0.2 %
[2024-10-24 12:07] LABS: Potassium 4.5 mmol/L (3.5-5.1)
[2024-10-24 12:08] LABS: Anion Gap 9 (5-15); Calcium 9.2 mg/dL (8.7-10.4)
[2024-10-24 12:09] LABS: Carbon Dioxide 32 mmol/L (20-31); Chloride 93 mmol/L (98-107); Sodium 134 mmol/L (136-145)
--- NOTE | 2024-10-24 12:12 | ECG ---
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
[2024-10-24 12:13] LABS: Triglycerides 82 mg/dL (< 150)
[2024-10-24 12:14] LABS: BUN/Creatinine Ratio 5.1 (10.0-20.0)
[2024-10-24 12:15] LABS: Blood Urea Nitrogen 27 mg/dL (9-23); Cholesterol 154 mg/dL (< 200); Glucose 157 mg/dL (74-106)
[2024-10-24 12:21] LABS: HDL Cholesterol 78 mg/dL (40-59)
--- NOTE | 2024-10-24 14:30 | DVH ---
PROCEDURE: Ultrasound-guided thoracentesis Procedural Personnel Attending physician(s): Wayne Gardner Fellow physician(s): None Resident physician(s): None A dvanced practice provider(s): None Pre-procedure diagnosis: Dyspnea Post-procedure diagnosis: Same Indication: Diagnostic and therapeutic Additional clinical history: None Complications: No immediate complications. IMPRESSION: Ultrasound-guided thoracentesis with drainage of 2400 mL of serous fluid. Plan: Resume care by clinical team. Fluid analysis pending. PROCEDURE SUMMARY: - Ultrasound-guided thoracentesis - additional procedure(s): None PROCEDURE DETAILS: Pre-procedure Consent: Informed consent for the procedure including risks, benefits and alternatives was obtained and time-out was performed prior to the procedure. Preparation: The site was prepared an d draped using maximal sterile barrier technique including cutaneous antisepsis. Anesthesia/sedation level of anesthesia/sedation: No sedation Anesthesia/sedation administered by: Not applicable Total intra-service sedation time (minutes): Not applicable Limited thoracic ultrasound Limited thoracic ultrasound was performed. Left hemithorax findings: Not investigated Right hemithorax findings: Large pleural effusion Thoracentesis Local anesthesia was administered. A safe window for thoracentesis was identified with ultrasound. Th e pleural space was accessed and fluid return confirmed position. The fluid was drained. The catheter was removed and a sterile dressing was applied. Catheter size (Fr):5 Catheter valve: Yes Fluid appearance: serous Volume drained (mL): 2400 Post-drainage ultrasound: Not performed Additional Details Additional description of procedure: None Registry event: V/3/f Device used: None Equipment details: None Specimens removed: Aspirated fluid was sent for analysis. Estimated blood loss (mL): Less than 10 Standardized report: [email or web address] Attestation Signer name: Wayne Gardner I attest that I was present for the entire procedure. I reviewed the stored images and agree with the report as written.
--- NOTE | 2024-10-24 16:33 | DVHINCON2 ---
Date of service: Oct 24, [address] Marek Metcalf Reason for Consultation Dialysis History of Present Illness 59 Y/O M with history of ESRD on HD, DM, HTN, CAD s/p stent, and systolic CHF presented with chief complaint of chest pain. Troponin is negative x3. Last dialysis was yesterday 10/23/24 at [facility]. K is 4.4 mmol/l. He is hemodynamically stable. Nephrology consulted for maintenance of dialysis Past Medical History ESRD on HD DM HTN CAD Hyperphosphatemia Past Surgical History AVF creation coronary stent placements Allergies: Coded Allergies: Penicillins (Verified Allergy, Unknown, 10/24/24) Home Meds Active Scripts Hydrocodone-Acetaminophen (Hydrocodone Bitartrate/AC 10-325 mg) 1 Tab Tab, 1 TAB PO QID PRN, #40 TAB Prov:SHARMIN AN MD 10/20/24 Hydromorphone Hcl (Dilaudid) 2 Mg Tab, 1 TAB PO TID PRN, #40 TAB Prov:SHARMIN AN MD 08/16/24 Cyclobenzaprine Hcl (Cyclobenzaprine Hcl) 5 Mg Tab, 1 TAB PO TID PRN, #30 TAB Prov:SHARMIN AN MD 07/30/24 Hydromorphone Hcl (Dilaudid) 2 Mg Tab, 1 TAB PO TID PRN, #40 TAB Prov:SHARMIN AN MD 07/30/24 Clopidogrel Bisulfate (CLOPIDOGREL) 75 Mg Tab, 75 MG PO DAILY for 30 Days, #30 TAB Prov:LEÓN COLLINS MD 08/16/23 Reported Medications Patiromer Sorbitex Calcium (Veltassa) 8.4 Gm Pow, 1 PKT PO DAILY 07/12/24 Colchicine (Mitigare) 0.6 Mg Cap, 0.6 MG PO PRN for for gout, CAP 07/12/24 Albuterol Sulfate (VENTOLIN MDI) 90 Mcg Ih, 2 PUFF IN Q6HPRN PRN for wheezing, INH 07/12/24 Losartan Potassium (Cozaar) 100 Mg Tab, 300 MG PO DAILY, TAB 07/12/24 Ipratropium-Albuterol (Ipratropium [place]/Albut) 1 Jacob Jacob, 1 JACOB IN QIDPRN PRN for SHORTNESS OF BREATH, ML 07/12/24 Clonidine Hydrochloride (Clonidine Hcl) 0.1 Mg Tab, 1 TAB PO PRN for SBP>160 04/17/24 Furosemide (Lasix) 40 Mg Tab, 40 MG PO DAILY, TAB 03/04/24 Amlodipine Besylate (NORVASC TABLET) 5 Mg Tb, 2 TAB PO DAILY, #30 TAB 5 Refills 03/04/24 Isosorbide Mononitrate (Isosorbide Mononitrate Er) 30 Mg Tab, 60 MG PO DAILY for CAD 09/19/23 Calcium Acetate (Phosphate Bin (Calcium Acetate) 667 Mg Cap, 667 MG PO TIDWM for DIALYSIS, MG 09/19/23 Atorvastatin Calcium (ATORVASTATIN CALCIUM) 40 Mg Tab, 1 TAB PO DAILY for HIGH CHOLESTEROL, #30 TAB 5 Refills 09/19/23 Qoncdpttay-Trzjcroutcdyzd-Dhky (Breztri Aerosphere 160-9-4.8 Mcg/Act) 1 Aer Aer, 1 AER IN BID for COPD, AER 09/19/23 Albuterol Sulfate (Ventolin) 2.5 Mg/3 Ml Nb, 2.5 MG NEB Q4HP PRN for SHORTNESS OF BREATH, INH 09/19/23 Ranolazine (Ranolazine ER) 500 Mg Tab, 500 MG PO BID for CAD, TAB 09/19/23 Diazepam (VALIUM TABLET) 5 Mg Tb, 2 TAB PO PRN PRN for onset seizure, TAB 08/14/23 Hydralazine Hcl (Hydralazine Hcl) 100 Mg Tab, 1 TAB PO TID, #90 TAB 5 Refills 08/14/23 Gabapentin (Gabapentin) 100 Mg Cap, 2 CAP PO TID PRN for onset seizure , #90 CAP 2 Refills Take with diazepam. 08/14/23 Pantoprazole Sodium Sesquihydr (Protonix) 40 Mg Tab, 40 MG PO QAM, #30 TAB 08/14/23 Aspirin (Aspir-81) 81 Mg Tab, 1 TAB PO QAM, #30 TAB 5 Refills 08/14/23 Allopurinol (ZYLOPRIM TABLET) 100 Mg Tb, 1 TAB PO QAM, #30 TAB 5 Refills 08/14/23 Current Medications Current Medications Medications (Trade) Dose Ordered Sig/Gerard Route PRN Reason Start Time Stop Time Status Last Admin Acetaminophen (Tylenol Tablet) 650 mg Q6HP PRN PO PAIN SCALE 1-3 OR TEMP>100.4 10/24/24 00:45 10/24/24 08:15 Enoxaparin Sodium (Lovenox) 40 mg DAILY SC 10/24/24 10:00 Hold Furosemide (Lasix Injection) 40 mg DAILY IV 10/24/24 00:45 10/24/24 10:42 Ceftriaxone Sodium 50 ml @ 100 mls/hr DAILY@0900 IV 10/25/24 09:00 Azithromycin 250 ml @ 125 mls/hr DAILY IV 10/25/24 10:00 Sacubitril/ Valsartan (Entresto 24-26 Mg tab) 1 tab BID PO 10/24/24 00:45 10/24/24 10:35 Albuterol (Ventolin Medneb) 2.5 mg Q6HR NEB 10/24/24 02:00 10/24/24 11:13 Ipratropium [place] (Atrovent Medneb) 0.5 mg Q6HR NEB 10/24/24 02:00 10/24/24 11:13 Metoprolol Succinate (Toprol Xl) 25 mg DAILY PO 10/24/24 10:00 10/24/24 10:36 Aspirin 81 mg DAILY PO 10/24/24 10:00 10/24/24 10:35 Atorvastatin Calcium (Lipitor) 80 mg DAILY PO 10/24/24 10:00 10/24/24 10:35 Acetaminophen/ Hydrocodone Bitart (Harris 5/325MG Tab) 1 tab Q6HPRN PRN PO SEVERE PAIN (7-10 PAIN SCALE) 10/24/24 08:30 10/24/24 10:38 Family History: Diabetes mellitus G8 MOTHER, Onset:Unknown G8 FATHER, Onset:Unknown Fibromyalgia G8 MOTHER Hypertension G8 MOTHER G8 FATHER, Onset:Unknown Review of Systems As per HPI, all other systems were reviewed and are negative. H&P Exam Vital Signs/I&O Vital Sign Date Time Temp Pulse Resp B/P (MAP) Pulse Ox O2 Delivery O2 Flow Rate FiO2 10/24/24 13:00 97.8 87 17 149/89 (109) 99 97.8 10/24/24 11:13 Nasal Cannula* 3 32 Intake and Output 10/23/24 10/24/24 19:00 07:00 Intake Total 0 ml Balance 0 ml Intake Oral 0 ml # Voids 1 Physical Exam Gen: NAD HEENT: NC, AT Lungs: Crackles lung bases Cardiac: RRR, no murmur Abd: soft, no distention Ext: no edema Neuro: no focal deficits Labs/Diagnostic Data Labs/Diagnostic Data Laboratory Tests Test 10/24/24 14:30 10/24/24 11:40 10/24/24 01:51 10/24/24 00:53 Range/Units White Blood Count 3.1 L 4.4-10.8 10^3/uL Red Blood Count 2.92 L 4.5-5.90 10^6/uL Hemoglobin 9.0 L 13.5-17.5 g/dL Hematocrit 27.7 L 41.0-53.0 % Mean Corpuscular Volume 95.1 80.0-100.0 fL Mean Corpuscular Hemoglobin 30.7 28.0-32.0 pg Mean Corpuscular Hemoglobin Concent 32.3 32.0-36.0 g/dL Red Cell Distribution Width 18.1 H 11.8-14.3 % Platelet Count 99 L 140-450 10^3/uL Mean Platelet Volume 7.2 6.9-10.8 fL Neutrophils (%) (Auto) 56.6 37.0-80.0 % Lymphocytes (%) (Auto) 13.9 10.0-50.0 % Monocytes (%) (Auto) 17.6 H 0.0-12.0 % Eosinophils (%) (Auto) 10.6 H 0.0-7.0 % Basophils (%) (Auto) 1.3 0.0-2.0 % Neutrophils # (Auto) 1.8 1.6-8.6 10 ^3/uL Lymphocytes # (Auto) 0.4 0.4-5.4 10 ^3/uL Monocytes # (Auto) 0.6 0-1.3 10 ^3/uL Eosinophils # (Auto) 0.3 0-0.8 10 ^3/uL Basophils # (Auto) 0 0-0.2 10 ^3/uL Nucleated Red Blood Cells 0.2 % D-Dimer, Quantitative 5.19 H 0.0-0.49 mg/L FEU Sodium Level 134 L 136-145 mmol/L Potassium Level 4.5 3.5-5.1 mmol/L Chloride Level 93 L 98-107 mmol/L Carbon Dioxide Level 32 H 20-31 mmol/L Anion Gap 9 5-15 Blood Urea Nitrogen 27 H 9-23 mg/dL Creatinine 5.30 H 0.700-1.30 mg/dL Glomerular Filtration Rate Calc 12 >90 mL/min BUN/Creatinine Ratio 5.1 L 10.0-20.0 Serum Glucose 157 H 74-106 mg/dL Hemoglobin A1c 4.7 <5.7 % A1C Calcium Level 9.2 8.7-10.4 mg/dL B-Type Natriuretic Peptide > 5000.00 0-100 pg/mL Triglycerides Level 82 < 150 mg/dL Cholesterol Level 154 < 200 mg/dL LDL Cholesterol 52 < 100 mg/dL HDL Cholesterol 78 H 40-59 mg/dL Influenza Type A Antigen Negative Negative Influenza Type B Antigen Negative Negative SARS-CoV-2 Antigen (Rapid) Negative NEGATIVE Urine Color Light-yellow Yellow Urine Clarity Clear Clear Urine pH 8.5 5.0-9.0 Urine Specific [place] 1.011 1.001-1.035 Urine Protein 3+ H Negative Urine Ketones Negative Negative Urine Blood Trace H Negative /uL Urine Nitrite Negative Negative Urine Bilirubin Negative Negative Urine Urobilinogen Normal Negative mg/dL Urine Leukocyte Esterase 2+ Negative /uL Urine RBC 4 0 - 3 /hpf Urine Microscopic WBC 75 H 0-3 /HPF Urine Squamous Epithelial Cells Few <5 /hpf Urine Bacteria Few H None Seen /hpf Urine Glucose 2+ H Normal mg/dL Urine Opiates Screen Neg NEGATIVE Urine Fentanyl Screen Neg NEGATIVE Urine Barbiturates Screen Neg NEGATIVE Urine Phencyclidine Screen Neg NEGATIVE Urine Amphetamines Screen Neg NEGATIVE Urine Benzodiazepines Screen Pos NEGATIVE Urine Cocaine Screen Neg NEGATIVE Urine Cannabinoids Screen Neg NEGATIVE Test 10/23/24 23:29 10/23/24 21:51 10/23/24 20:44 Range/Units Troponin I High Sensitivity 49 47 47 </=54 ng/L White Blood Count 3.6 #L 4.4-10.8 10^3/uL Red Blood Count 3.05 L 4.5-5.90 10^6/uL Hemoglobin 9.5 L 13.5-17.5 g/dL Hematocrit 28.8 L 41.0-53.0 % Mean Corpuscular Volume 94.5 80.0-100.0 fL Mean Corpuscular Hemoglobin 31.0 28.0-32.0 pg Mean Corpuscular Hemoglobin Concent 32.8 32.0-36.0 g/dL Red Cell Distribution Width 18.8 H 11.8-14.3 % Platelet Count 128 L 140-450 10^3/uL Mean Platelet Volume 7.3 6.9-10.8 fL Neutrophils (%) (Auto) 59.0 37.0-80.0 % Lymphocytes (%) (Auto) 13.3 10.0-50.0 % Monocytes (%) (Auto) 17.1 H 0.0-12.0 % Eosinophils (%) (Auto) 9.2 H 0.0-7.0 % Basophils (%) (Auto) 1.4 0.0-2.0 % Neutrophils # (Auto) 2.1 1.6-8.6 10 ^3/uL Lymphocytes # (Auto) 0.5 0.4-5.4 10 ^3/uL Monocytes # (Auto) 0.6 0-1.3 10 ^3/uL Eosinophils # (Auto) 0.3 0-0.8 10 ^3/uL Basophils # (Auto) 0 0-0.2 10 ^3/uL Nucleated Red Blood Cells 0.1 % Prothrombin Time 12.4 H 9.3-11.8 sec Prothrombin Time INR 1.19 H 0.9-1.15 Activated Partial Thromboplast Time 37.0 H 24.5-34.5 SEC Sodium Level 135 L 136-145 mmol/L Potassium Level 4.4 3.5-5.1 mmol/L Chloride Level 93 L 98-107 mmol/L Carbon Dioxide Level 31 20-31 mmol/L Anion Gap 11 5-15 Blood Urea Nitrogen 24 H 9-23 mg/dL Creatinine 4.80 H 0.700-1.30 mg/dL Glomerular Filtration Rate Calc 13 >90 mL/min BUN/Creatinine Ratio 5.0 L 10.0-20.0 Serum Glucose 124 H 74-106 mg/dL Calcium Level 9.4 8.7-10.4 mg/dL Total Bilirubin 0.5 0.2-1.0 mg/dL Aspartate Amino Transferase (AST) 15 13-40 U/L Alanine Aminotransferase (ALT) 11 7-40 U/L Alkaline Phosphatase 111 46-116 U/L Total Protein 6.7 5.7-8.2 g/dL Albumin 4.4 3.2-4.8 g/dL Assessment Assessment: ESRD on HD Chest pain , r/o ACS Chronic systolic CHF DM type II HTN Hyperphosphatemia Secondary hyperparathyroidism Anemia of CKD Plan: Previous dialysis was Tuesday at [facility] Next HD tomorrow () Cardiology consult Fluid restriction Renal diet continue Metoprolol NEVAEH post HD as needed. goal Hb: 10-11 g/dl Plan discussed with: Patient ROSEANN DUBOSE MD Oct 24, 2024 16:33
[2024-10-25] VITALS (12 sets, daily range): BP systolic 132–172; BP diastolic 73–96; PULSE 90–99; RESP 17–20; TEMP 97.5–98; O2SAT 93–100
--- NOTE | 2024-10-25 06:32 | DVHPN2 ---
Progress Note - Dictate Date Seen: Oct 25, 2024 Medical Necessity Reason Pt with a Central, PICC or Fol: No vital signs Vital Sign Date Time Temp Pulse Resp B/P (MAP) Pulse Ox O2 Delivery O2 Flow Rate FiO2 10/25/24 05:00 97.7 92 18 143/88 (106) 100 97.7 10/24/24 23:18 Nasal Cannula 3.0 10/24/24 23:18 32 Total Intake and Output 10/24/24 10/24/24 10/25/24 15:00 23:00 07:00 Intake Total 700 ml 650 ml Output Total 2400 ml 480 ml Balance -1700 ml 170 ml medications Current Medications Medications Dose Ordered Sig/Gerard Route Start Time Stop Time Status Last Admin Dose Admin Acetaminophen 650 mg Q6HP PRN PO 10/24/24 00:45 10/24/24 08:15 650 MG Enoxaparin Sodium 40 mg DAILY SC 10/24/24 10:00 Hold Furosemide 40 mg DAILY IV 10/24/24 00:45 10/24/24 10:42 40 MG Ceftriaxone Sodium 50 ml @ 100 mls/hr DAILY@0900 IV 10/25/24 09:00 Azithromycin 250 ml @ 125 mls/hr DAILY IV 10/25/24 10:00 Sacubitril/ Valsartan 1 tab BID PO 10/24/24 00:45 10/24/24 21:48 1 TAB Albuterol 2.5 mg Q6HR NEB 10/24/24 02:00 10/24/24 23:18 2.5 MG Ipratropium [place] 0.5 mg Q6HR NEB 10/24/24 02:00 10/24/24 23:18 0.5 MG Metoprolol Succinate 25 mg DAILY PO 10/24/24 10:00 10/24/24 10:36 25 MG Aspirin 81 mg DAILY PO 10/24/24 10:00 10/24/24 10:35 81 MG Atorvastatin Calcium 80 mg DAILY PO 10/24/24 10:00 10/24/24 10:35 80 MG Acetaminophen/ Hydrocodone Bitart 1 tab Q6HPRN PRN PO 10/24/24 08:30 10/25/24 05:52 1 TAB objective Gen: NAD HEENT: NC, AT Lungs: Crackles lung bases Cardiac: RRR, no murmur Abd: soft, no distention Ext: no edema Neuro: no focal deficits laboratory and microbiology Laboratory Tests 10/24/24 11:40 Test 10/24/24 11:40 Range/Units Serum Glucose 157 H 74-106 mg/dL Assessment/Plan Assessment: ESRD on HD Chest pain , r/o ACS Chronic systolic CHF DM type II HTN Hyperphosphatemia Secondary hyperparathyroidism Anemia of CKD Plan: Scheduled for HD for today. Previous dialysis was Tuesday at [facility] Cardiology consult Fluid restriction Renal diet continue Metoprolol NEVAEH post HD as needed. goal Hb: 10-11 g/dl Plan discussed with: Patient ROSEANN DUBOSE MD Oct 25, 2024 06:32
[2024-10-25] MEDS: SODIUM CHL 0.9% 1000 ML BAG XX ONE (07:00)
[2024-10-25 08:12] LABS: Calcium 9.5 mg/dL (8.7-10.4); Potassium 5.0 mmol/L (3.5-5.1)
[2024-10-25 08:13] LABS: Anion Gap 13 (5-15); Carbon Dioxide 28 mmol/L (20-31)
[2024-10-25 08:18] LABS: BUN/Creatinine Ratio 5.5 (10.0-20.0); Glucose 97 mg/dL (74-106)
[2024-10-25 08:24] LABS: Blood Urea Nitrogen 34 mg/dL (9-23); Chloride 93 mmol/L (98-107); Sodium 134 mmol/L (136-145)
[2024-10-25 08:35] LABS: Hematocrit 29.8 % (41.0-53.0); Hemoglobin 9.5 g/dL (13.5-17.5); Mean Corpuscular Hemoglobin 30.3 pg (28.0-32.0); Mean Corpuscular Volume 95.1 fL (80.0-100.0)
--- NOTE | 2024-10-25 08:37 | ECG ---
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
[2024-10-25 09:23] LABS: Total Cells Counted 100.0 (100)
[2024-10-25 09:24] LABS: Anisocytosis Slight
[2024-10-25] MEDS: AZITHROMYCIN 500MG/ 250ML 250 ML IV SCH (10:01)
[2024-10-25] MEDS: cefTRIAXone 1GM/50ML D5W 50 ML IV SCH (10:01)
[2024-10-25] MEDS: HYDROcodone-ACET 7.5/325MG TAB PO PRN (12:11)
[2024-10-25 14:07] LABS: Glucose, Body Fluid 146.0 mg/dL (.); LD, Body Fluid 154.0 IU/L (.)
--- NOTE | 2024-10-25 16:00 | DVHPNRES ---
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 He reported that the started after his last dialysis when he was walking up to his car. He described pain as a sharp, localized on left side of the chest, radiates towards the center of the chest, 9/10 on the pain scale associated with shortness of breaths. He reports that similar type of pain occurred previously in the last few months. He denies fever/chills, malaise or any other sick contacts. On arrival, he had tachycardia, tachypnea, was started on 4 L of oxygen through nasal cannula. Initial chest x-ray showing bilateral patchy infiltrates on bilateral lungs more pronounced in the right lung lopez with possible consolidation/congestion and possible vascular prominence. Troponins were negative at 47 and EKG was showing sinus rhythm with nonspecific T-wave inversion in leads II and AVF but no ST segment elevation or depression. 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 Lives in home Home medications: Amlodipine, aspirin, atorvastatin, clopidogrel, furosemide, hydralazine, isosorbide mononitrate, metoprolol succinate, pantoprazole, Entresto.,senna ROS: Constitutional: Denies weight loss, fever and chills. HEENT: Denies changes in vision and hearing. Respiratory: Shortness of breath and cough Cardiovascular: Chest discomfort . No palpitations GI: Denies abdominal pain, nausea, vomiting and diarrhea. : Denies dysuria and urinary frequency. Musculoskeletal: Denies myalgias and joint pain Skin: Denies rash and pruritus. Neurological: Denies dizziness, headache, vision or hearing problems 10/24/24: vitals are stable, on 3 L oxygen, saturating 97%. He complained had very minimal chest pain, shortness of breaths. He was drowsy, falling back to sleep between conversation. 10/25/24: He was examined at bedside, continues to complain of chronic back pain, difficulty breathing. His I&O is within goal. Continue diuresing at this dose. Objective vital signs Vital Sign Date Time Temp Pulse Resp B/P (MAP) Pulse Ox O2 Delivery O2 Flow Rate FiO2 10/25/24 13:06 90 20 10/25/24 13:01 100 10/25/24 12:56 97.5 132/73 (92) 97.5 10/25/24 10:06 Nasal Cannula* 4 36 Total Intake and Output 10/24/24 10/24/24 10/25/24 15:00 23:00 07:00 Intake Total 700 ml 650 ml Output Total 2400 ml 480 ml Balance -1700 ml 170 ml medications Current Medications Medications Dose Ordered Sig/Gerard Route Start Time Stop Time Status Last Admin Dose Admin Acetaminophen 650 mg Q6HP PRN PO 10/24/24 00:45 10/25/24 06:44 650 MG Enoxaparin Sodium 40 mg DAILY SC 10/24/24 10:00 Hold Furosemide 40 mg DAILY IV 10/24/24 00:45 10/24/24 10:42 40 MG Ceftriaxone Sodium 50 ml @ 100 mls/hr DAILY@0900 IV 10/25/24 09:00 10/25/24 10:01 100 MLS/HR Azithromycin 250 ml @ 125 mls/hr DAILY IV 10/25/24 10:00 10/25/24 10:01 125 MLS/HR Sacubitril/ Valsartan 1 tab BID PO 10/24/24 00:45 10/25/24 10:11 1 TAB Albuterol 2.5 mg Q6HR NEB 10/24/24 02:00 10/25/24 12:59 2.5 MG Ipratropium [place] 0.5 mg Q6HR NEB 10/24/24 02:00 10/25/24 12:58 0.5 MG Metoprolol Succinate 25 mg DAILY PO 10/24/24 10:00 10/24/24 10:36 25 MG Aspirin 81 mg DAILY PO 10/24/24 10:00 10/25/24 10:00 81 MG Atorvastatin Calcium 80 mg DAILY PO 10/24/24 10:00 10/25/24 10:00 80 MG Acetaminophen/ Hydrocodone Bitart 1 tab Q6HP PRN PO 10/25/24 11:15 10/25/24 12:11 1 TAB Examination General: Patient alert and oriented in person, place and time. Patient following commands. HEENT: Normocephalic, atraumatic, moist mucous membranes Respiratory/pulmonary: Minimal B/L crackes and wheeze in the lowe lungs, heard posteriorly Cardiovascular: Normal heart sounds S1 and S2 with no associated murmurs Abdomen: Abdomen nondistended, there is no pain to palpation in any of the abdominal quadrants, no palpable masses. Extremities: Pitting edema B/L lower limbs resolving Peripheral Pulses: 3+ Radial (R). 3+ Radial (L). 3+ Dorsalis pedis (R). 3+ Dorsalis pedis(L) Skin: No rashes or pruritus, there is no sacral edema present at this time. Neurological: Intact cranial nerves with no focal neurologic deficits Other: Sacral edema grade 1, resolving laboratory and microbiology Laboratory Tests 10/25/24 06:58 Test 10/25/24 06:58 Range/Units Serum Glucose 97 74-106 mg/dL Microbiology Date/Time Source Procedure Growth Status 10/24/24 14:30 Pleural Fluid Gram Stain Pending Resulted 10/24/24 14:30 Pleural Fluid Aerobic Culture - Preliminary Resulted Problem List/Assessment/Plan Problem List/Assessment/Plan Sepsis likely due to pneumonia, Possible Gram-positive/Gram-negative bacterial pneumonia Possible atypical/viral pneumonia Possible COPD exacerbation likely due to above Acute hypoxic respiratory failure likely due to CHF exacerbation/ PNA Acute on chronic systolic heart failure exacerbation (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 Large right pleural effusion. Small left pleural effusion. CXR shows: Mild cardiomegaly with findings suggestive of congestive heart failure /atypical pneumonia. Possible trace bilateral pleural effusion. Labs show leukopenia Lactic acid ordered. Holding off IV fluids because of exacerbation of heart failure and end-stage renal disease Continue furosemide, Entresto, metoprolol Strict I&O Continue azithromycin, ceftriaxone Continue pain management, med neb treatment Acute chest pain ruled out ACS Possible pulmonary hypertension Bilateral lower extremity swelling with pain, ruled out DVT Urinary retention Chronic kidney disease/ end-stage renal disease on hemodialysis Nephrology consulted, hemodialysis tomorrow ESRD on HD DM type II HTN Hyperphosphatemia Secondary hyperparathyroidism Anemia of CKD DIET: Cardiac DVT PROPHYLAXIS: Lovenox CODE STATUS: Goals of care discussed with patient at bedside for more than 35 minutes. Full code DISPOSITION: Med/surge Patient's status and plan discussed with the patient. Case discussed with Dr. Núñez. Plan discussed with: Patient My Orders My Orders Orders - VALERIE MACHADO RESIDENT Procedure Category Date Status Time Blood Culture AGETANO 10/24/24 In Process 17:08 Hydrocodone-Acet PHA 10/25/24 In Process 7.5/325mg Tab ([place] 11:15 * Client Success Manager CONS 10/25/24 Transmitted Consult 12:22 VALERIE MACHADO RESIDENT Oct 25, 2024 16:00
[2024-10-25] MEDS: EPOETIN ALFA-EPBX 4,000 UNIT/ML VIAL SC ONE (21:03)
[2024-10-26] VITALS (14 sets, daily range): BP systolic 126–161; BP diastolic 64–85; PULSE 83–99; RESP 16–18; TEMP 96.7–98.4; O2SAT 94–100
[2024-10-26 08:46] LABS: Hematocrit 28.8 % (41.0-53.0); Hemoglobin 9.3 g/dL (13.5-17.5); Mean Corpuscular Hemoglobin 30.6 pg (28.0-32.0); Mean Corpuscular Volume 94.8 fL (80.0-100.0); Nucleated Red Blood Cells % 0.2 %
[2024-10-26 09:04] LABS: Anion Gap 11 (5-15); Potassium 4.8 mmol/L (3.5-5.1)
[2024-10-26 09:05] LABS: Carbon Dioxide 31 mmol/L (20-31); Chloride 93 mmol/L (98-107); Sodium 135 mmol/L (136-145)
[2024-10-26 09:06] LABS: Calcium 8.9 mg/dL (8.7-10.4)
[2024-10-26 09:10] LABS: BUN/Creatinine Ratio 5.1 (10.0-20.0)
[2024-10-26 09:13] LABS: Blood Urea Nitrogen 25 mg/dL (9-23); Glucose 157 mg/dL (74-106)
--- NOTE | 2024-10-26 15:55 | DVHPNRES ---
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 He reported that the started after his last dialysis when he was walking up to his car. He described pain as a sharp, localized on left side of the chest, radiates towards the center of the chest, 9/10 on the pain scale associated with shortness of breaths. He reports that similar type of pain occurred previously in the last few months. He denies fever/chills, malaise or any other sick contacts. On arrival, he had tachycardia, tachypnea, was started on 4 L of oxygen through nasal cannula. Initial chest x-ray showing bilateral patchy infiltrates on bilateral lungs more pronounced in the right lung lopez with possible consolidation/congestion and possible vascular prominence. Troponins were negative at 47 and EKG was showing sinus rhythm with nonspecific T-wave inversion in leads II and AVF but no ST segment elevation or depression. 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 Lives in home Home medications: Amlodipine, aspirin, atorvastatin, clopidogrel, furosemide, hydralazine, isosorbide mononitrate, metoprolol succinate, pantoprazole, Entresto.,senna ROS: Constitutional: Denies weight loss, fever and chills. HEENT: Denies changes in vision and hearing. Respiratory: Shortness of breath and cough Cardiovascular: Chest discomfort . No palpitations GI: Denies abdominal pain, nausea, vomiting and diarrhea. : Denies dysuria and urinary frequency. Musculoskeletal: Denies myalgias and joint pain Skin: Denies rash and pruritus. Neurological: Denies dizziness, headache, vision or hearing problems 10/24/24: vitals are stable, on 3 L oxygen, saturating 97%. He complained had very minimal chest pain, shortness of breaths. He was drowsy, falling back to sleep between conversation. 10/25/24: Continues to complain of chronic back pain, difficulty breathing. His I&O is within goal. Continue diuresing at this dose. 10/26/2024: He was examined at bedside today, complains of back pain. Reports improvement in shortness of breaths. PHQ-9 scale positive for moderate depression. Objective vital signs Vital Sign Date Time Temp Pulse Resp B/P (MAP) Pulse Ox O2 Delivery O2 Flow Rate FiO2 10/26/24 13:00 98.4 93 17 126/77 (93) 100 98.4 10/26/24 11:35 Nasal Cannula* 3 32 Total Intake and Output 10/25/24 10/25/24 10/26/24 15:00 23:00 07:00 Intake Total 50 ml 500 ml 450 ml Output Total 300 ml Balance 50 ml 200 ml 450 ml medications Current Medications Medications Dose Ordered Sig/Gerard Route Start Time Stop Time Status Last Admin Dose Admin Acetaminophen 650 mg Q6HP PRN PO 10/24/24 00:45 10/26/24 09:13 650 MG Enoxaparin Sodium 40 mg DAILY SC 10/24/24 10:00 Hold Furosemide 40 mg DAILY IV 10/24/24 00:45 10/26/24 09:14 40 MG Ceftriaxone Sodium 50 ml @ 100 mls/hr DAILY@0900 IV 10/25/24 09:00 10/26/24 09:16 100 MLS/HR Azithromycin 250 ml @ 125 mls/hr DAILY IV 10/25/24 10:00 10/26/24 09:16 125 MLS/HR Sacubitril/ Valsartan 1 tab BID PO 10/24/24 00:45 10/26/24 09:10 1 TAB Albuterol 2.5 mg Q6HR NEB 10/24/24 02:00 10/26/24 11:35 2.5 MG Ipratropium [place] 0.5 mg Q6HR NEB 10/24/24 02:00 10/26/24 11:35 0.5 MG Metoprolol Succinate 25 mg DAILY PO 10/24/24 10:00 10/26/24 09:12 25 MG Aspirin 81 mg DAILY PO 10/24/24 10:00 10/25/24 10:00 81 MG Atorvastatin Calcium 80 mg DAILY PO 10/24/24 10:00 10/26/24 09:12 80 MG Acetaminophen/ Hydrocodone Bitart 1 tab Q6HP PRN PO 10/25/24 11:15 10/26/24 13:01 1 TAB Examination General: Patient alert and oriented in person, place and time. Patient following commands. HEENT: Normocephalic, atraumatic, moist mucous membranes Respiratory/pulmonary: Minimal B/L crackes and wheeze in the lowe lungs, heard posteriorly Cardiovascular: Normal heart sounds S1 and S2 with no associated murmurs Abdomen: Abdomen nondistended, there is no pain to palpation in any of the abdominal quadrants, no palpable masses. Extremities: Pitting edema B/L lower limbs resolving Peripheral Pulses: 3+ Radial (R). 3+ Radial (L). 3+ Dorsalis pedis (R). 3+ Dorsalis pedis(L) Skin: No rashes or pruritus, there is no sacral edema present at this time. Neurological: Intact cranial nerves with no focal neurologic deficits Other: Sacral edema grade 1, resolving laboratory and microbiology Laboratory Tests 10/26/24 07:43 Test 10/26/24 07:43 Range/Units Serum Glucose 157 H 74-106 mg/dL Microbiology Date/Time Source Procedure Growth Status 10/24/24 19:59 Blood Blood Culture - Preliminary NO GROWTH AFTER 24 HOURS OF INCUBATION. 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 Large right pleural effusion. Small left pleural effusion. CXR shows: Mild cardiomegaly with findings suggestive of congestive heart failure /atypical pneumonia. Possible trace bilateral pleural effusion. Labs show leukopenia Lactic acid ordered. Holding off IV fluids because of exacerbation of heart failure and end-stage renal disease Continue furosemide, Entresto, metoprolol Strict I&O Continue azithromycin, ceftriaxone Continue pain management, med neb treatment Acute chest pain ruled out ACS Possible pulmonary hypertension Bilateral lower extremity swelling with pain, ruled out DVT Urinary retention Chronic kidney disease/ end-stage renal disease on hemodialysis Nephrology consulted, hemodialysis tomorrow ESRD on HD DM type II HTN Hyperphosphatemia Secondary hyperparathyroidism Anemia of CKD Moderate depression DIET: Cardiac DVT PROPHYLAXIS: Lovenox CODE STATUS: Goals of care discussed with patient at bedside for more than 35 minutes. Full code DISPOSITION: Med/surge Patient's status and plan discussed with the patient. Case discussed with Dr. Núñez. Plan discussed with: Patient My Orders My Orders Orders - VALERIE MACHADO Procedure Category Date Status Time Pt Request For Service PT 10/25/24 Logged 18:01 VALERIE MACHADO RESIDENT Oct 26, 2024 15:55
--- NOTE | 2024-10-26 16:20 | DVHPN2 ---
Progress Note - Dictate Date Seen: Oct 26, 2024 Medical Necessity Reason Pt with a Central, PICC or Fol: No vital signs Vital Sign Date Time Temp Pulse Resp B/P (MAP) Pulse Ox O2 Delivery O2 Flow Rate FiO2 10/26/24 13:00 98.4 93 17 126/77 (93) 100 98.4 10/26/24 11:35 Nasal Cannula* 3 32 Total Intake and Output 10/25/24 10/25/24 10/26/24 15:00 23:00 07:00 Intake Total 50 ml 500 ml 450 ml Output Total 300 ml Balance 50 ml 200 ml 450 ml medications Current Medications Medications Dose Ordered Sig/Gerard Route Start Time Stop Time Status Last Admin Dose Admin Acetaminophen 650 mg Q6HP PRN PO 10/24/24 00:45 10/26/24 09:13 650 MG Enoxaparin Sodium 40 mg DAILY SC 10/24/24 10:00 Hold Furosemide 40 mg DAILY IV 10/24/24 00:45 10/26/24 09:14 40 MG Ceftriaxone Sodium 50 ml @ 100 mls/hr DAILY@0900 IV 10/25/24 09:00 10/26/24 09:16 100 MLS/HR Azithromycin 250 ml @ 125 mls/hr DAILY IV 10/25/24 10:00 10/26/24 09:16 125 MLS/HR Sacubitril/ Valsartan 1 tab BID PO 10/24/24 00:45 10/26/24 09:10 1 TAB Albuterol 2.5 mg Q6HR NEB 10/24/24 02:00 10/26/24 11:35 2.5 MG Ipratropium [place] 0.5 mg Q6HR NEB 10/24/24 02:00 10/26/24 11:35 0.5 MG Metoprolol Succinate 25 mg DAILY PO 10/24/24 10:00 10/26/24 09:12 25 MG Aspirin 81 mg DAILY PO 10/24/24 10:00 10/25/24 10:00 81 MG Atorvastatin Calcium 80 mg DAILY PO 10/24/24 10:00 10/26/24 09:12 80 MG Acetaminophen/ Hydrocodone Bitart 1 tab Q6HP PRN PO 10/25/24 11:15 10/26/24 13:01 1 TAB objective Gen: NAD HEENT: NC, AT Lungs: Crackles lung bases Cardiac: RRR, no murmur Abd: soft, no distention Ext: no edema Neuro: no focal deficits laboratory and microbiology Laboratory Tests 10/26/24 07:43 Test 10/26/24 07:43 Range/Units Serum Glucose 157 H 74-106 mg/dL Assessment/Plan Assessment: ESRD on HD Chest pain , r/o ACS Chronic systolic CHF DM type II HTN Hyperphosphatemia Secondary hyperparathyroidism Anemia of CKD Plan: s/p HD Next HD on Tuesday HD on TTS schedule while in house Cardiology consult Fluid restriction Renal diet continue Metoprolol NEVAEH post HD as needed. goal Hb: 10-11 g/dl Plan discussed with: Patient ROSEANN DUBOSE MD Oct 26, 2024 16:20
[2024-10-27] VITALS (15 sets, daily range): BP systolic 137–172; BP diastolic 87–96; PULSE 76–94; RESP 16–22; TEMP 36.8; O2SAT 95–100
[2024-10-27] MEDS: SODIUM CHL 0.9% 1000 ML BAG XX ONE (07:00)
[2024-10-27 07:17] LABS: Hematocrit 26.6 % (41.0-53.0); Hemoglobin 8.7 g/dL (13.5-17.5); Mean Corpuscular Hemoglobin 30.7 pg (28.0-32.0); Mean Corpuscular Volume 93.7 fL (80.0-100.0)
[2024-10-27 07:31] LABS: Anion Gap 12 (5-15); Carbon Dioxide 28 mmol/L (20-31); Potassium 5.0 mmol/L (3.5-5.1)
[2024-10-27 07:32] LABS: Chloride 94 mmol/L (98-107); Sodium 134 mmol/L (136-145)
[2024-10-27 07:33] LABS: Calcium 8.6 mg/dL (8.7-10.4)
[2024-10-27 07:37] LABS: BUN/Creatinine Ratio 5.4 (10.0-20.0); Blood Urea Nitrogen 30 mg/dL (9-23); Glucose 114 mg/dL (74-106)
[2024-10-27 07:54] LABS: Total Cells Counted 100.0 (100)
[2024-10-27 07:55] LABS: Anisocytosis Slight
--- NOTE | 2024-10-27 09:46 | DVHPN2 ---
Progress Note - Dictate Date Seen: Oct 27, 2024 Medical Necessity Reason Pt with a Central, PICC or Fol: No Subjective no new symptoms vital signs Vital Sign Date Time Temp Pulse Resp B/P (MAP) Pulse Ox O2 Delivery O2 Flow Rate FiO2 10/27/24 09:06 76 160/87 10/27/24 08:53 97.5 19 100 97.5 10/27/24 06:48 Nasal Cannula 3.0 10/27/24 06:48 32 Total Intake and Output 10/26/24 10/26/24 10/27/24 15:00 23:00 07:00 Intake Total 700 ml 450 ml Output Total 600 ml Balance 100 ml 450 ml medications Current Medications Medications Dose Ordered Sig/Gerard Route Start Time Stop Time Status Last Admin Dose Admin Acetaminophen 650 mg Q6HP PRN PO 10/24/24 00:45 10/27/24 07:09 650 MG Enoxaparin Sodium 40 mg DAILY SC 10/24/24 10:00 Hold Furosemide 40 mg DAILY IV 10/24/24 00:45 10/27/24 09:04 40 MG Ceftriaxone Sodium 50 ml @ 100 mls/hr DAILY@0900 IV 10/25/24 09:00 10/27/24 09:03 100 MLS/HR Azithromycin 250 ml @ 125 mls/hr DAILY IV 10/25/24 10:00 10/27/24 09:04 125 MLS/HR Sacubitril/ Valsartan 1 tab BID PO 10/24/24 00:45 10/27/24 09:05 1 TAB Albuterol 2.5 mg Q6HR NEB 10/24/24 02:00 10/27/24 06:48 2.5 MG Ipratropium [place] 0.5 mg Q6HR NEB 10/24/24 02:00 10/27/24 06:48 0.5 MG Metoprolol Succinate 25 mg DAILY PO 10/24/24 10:00 10/27/24 09:06 25 MG Aspirin 81 mg DAILY PO 10/24/24 10:00 10/27/24 09:04 81 MG Atorvastatin Calcium 80 mg DAILY PO 10/24/24 10:00 10/27/24 09:05 80 MG Acetaminophen/ Hydrocodone Bitart 1 tab Q6HP PRN PO 10/25/24 11:15 10/27/24 02:07 1 TAB objective Gen: NAD HEENT: NC, AT Lungs: Crackles lung bases Cardiac: RRR, no murmur Abd: soft, no distention Ext: no edema Neuro: no focal deficits laboratory and microbiology Laboratory Tests 10/27/24 06:23 Test 10/27/24 06:23 Range/Units Serum Glucose 114 H 74-106 mg/dL Assessment/Plan Assessment: ESRD on HD Chest pain , r/o ACS Chronic systolic CHF DM type II HTN Hyperphosphatemia Secondary hyperparathyroidism Anemia of CKD Plan: Scheduled for HD today. goal UF 3.5 L s/p HD HD on TTS schedule while in house Cardiology consult Fluid restriction Renal diet continue Metoprolol NEVAEH post HD as needed. goal Hb: 10-11 g/dl Plan discussed with: Patient, Other ROSEANN DUBOSE MD Oct 27, 2024 09:46
[2024-10-27] MEDS ORDERED: LEVO500T91 PO ×2 (14:32→14:45)
--- NOTE | 2024-10-27 15:12 | DVHDSRES ---
Discharge Summary Date of Admission Resident Creating Document: VALERIE MACHADO RESIDENT Oct 24, 2024 at 00:32 Date of Discharge: Oct 27, 2024 Labs/Diagnostic Data: Laboratory Results Test 10/27/24 06:23 10/26/24 07:43 10/25/24 17:52 10/25/24 06:58 White Blood Count 2.0 10^3/uL (4.4-10.8) Red Blood Count 2.84 10^6/uL (4.5-5.90) Hemoglobin 8.7 g/dL (13.5-17.5) Hematocrit 26.6 % (41.0-53.0) Mean Corpuscular Volume 93.7 fL (80.0-100.0) Mean Corpuscular Hemoglobin 30.7 pg (28.0-32.0) Mean Corpuscular Hemoglobin Concent 32.7 g/dL (32.0-36.0) Red Cell Distribution Width 17.3 % (11.8-14.3) Platelet Count 80 10^3/uL (140-450) Mean Platelet Volume 8.1 fL (6.9-10.8) Neutrophils (%) (Auto) % (37.0-80.0) Lymphocytes (%) (Auto) % (10.0-50.0) Monocytes (%) (Auto) % (0.0-12.0) Basophils (%) (Auto) % (0.0-2.0) Neutrophils # (Auto) 10 ^3/uL (1.6-8.6) Lymphocytes # (Auto) 10 ^3/uL (0.4-5.4) Monocytes # (Auto) 10 ^3/uL (0-1.3) Differential Total Cells Counted 100.0 (100) Neutrophils % (Manual) 29 (37.0-80.0) Band Neutrophils % (Manual) 2 Lymphocytes % (Manual) 25 (10.0-50.0) Monocytes % (Manual) 28 (0-12) Eosinophils % (Manual) 16 (0-7) Basophils % (Manual) 0 (0.0-2.0) Metamyelocytes % (manual) 0 Myelocytes % (Manual) 0 Promyelocytes % (Manual) 0 Blast Cells % (Manual) 0 Reactive Lymphocytes 0 Platelet Estimate Decreased Large Platelets Few Anisocytosis (manual) Slight Sodium Level 134 mmol/L (136-145) Potassium Level 5.0 mmol/L (3.5-5.1) Chloride Level 94 mmol/L (98-107) Carbon Dioxide Level 28 mmol/L (20-31) Anion Gap 12 (5-15) Blood Urea Nitrogen 30 mg/dL (9-23) Creatinine 5.59 mg/dL (0.700-1.30) Glomerular Filtration Rate Calc 11 mL/min (>90) BUN/Creatinine Ratio 5.4 (10.0-20.0) Serum Glucose 114 mg/dL (74-106) Calcium Level 8.6 mg/dL (8.7-10.4) Eosinophils (%) (Auto) 11.4 % (0.0-7.0) Eosinophils # (Auto) 0.2 10 ^3/uL (0-0.8) Basophils # (Auto) 0 10 ^3/uL (0-0.2) Nucleated Red Blood Cells 0.2 % Hepatitis B Surface Antigen Negative (Negative) Hypochromasia (manual) Slight Test 10/24/24 19:59 10/24/24 14:30 10/24/24 11:40 10/24/24 01:51 Lactic Acid Level 1.0 mmol/L (0.4-2.0) Body Fluid Source Pleural fluid Body Fluid pH 8.0 Body Fluid WBC (Manual) 400 CUMM (0-200) Body Fluid RBC (Manual) 56 CUMM (0-2000) Body Fluid Mononuclear Cells 88 % Body Fluid Polymorphonuclear Cells 12 % (0-25) Body Fluid Glucose 146 mg/dL (.) Body Fluid Total Protein 3.1 g/dL (.) Body Fluid Lactate Dehydrogenase 154 IU/L (.) D-Dimer, Quantitative 5.19 mg/L FEU (0.0-0.49) Hemoglobin A1c 4.7 % A1C (<5.7) B-Type Natriuretic Peptide > 5000.00 pg/mL (0-100) Triglycerides Level 82 mg/dL (< 150) Cholesterol Level 154 mg/dL (< 200) LDL Cholesterol 52 mg/dL (< 100) HDL Cholesterol 78 mg/dL (40-59) Influenza Type A Antigen Negative (Negative) Influenza Type B Antigen Negative (Negative) SARS-CoV-2 Antigen (Rapid) Negative (NEGATIVE) Test 10/24/24 00:53 10/23/24 23:29 10/23/24 20:44 Urine Color Light-yellow (Yellow) Urine Clarity Clear (Clear) Urine pH 8.5 (5.0-9.0) Urine Specific [place] 1.011 (1.001-1.035) Urine Protein 3+ (Negative) Urine Ketones Negative (Negative) Urine Blood Trace /uL (Negative) Urine Nitrite Negative (Negative) Urine Bilirubin Negative (Negative) Urine Urobilinogen Normal mg/dL (Negative) Urine Leukocyte Esterase 2+ /uL (Negative) Urine RBC 4 /hpf (0 - 3) Urine Microscopic WBC 75 /HPF (0-3) Urine Squamous Epithelial Cells Few /hpf (<5) Urine Bacteria Few /hpf (None Seen) Urine Glucose 2+ mg/dL (Normal) Urine Opiates Screen Neg (NEGATIVE) Urine Fentanyl Screen Neg (NEGATIVE) Urine Barbiturates Screen Neg (NEGATIVE) Urine Phencyclidine Screen Neg (NEGATIVE) Urine Amphetamines Screen Neg (NEGATIVE) Urine Benzodiazepines Screen Pos (NEGATIVE) Urine Cocaine Screen Neg (NEGATIVE) Urine Cannabinoids Screen Neg (NEGATIVE) Troponin I High Sensitivity 49 ng/L (</=54) Prothrombin Time 12.4 sec (9.3-11.8) Prothrombin Time INR 1.19 (0.9-1.15) Activated Partial Thromboplast Time 37.0 SEC (24.5-34.5) Total Bilirubin 0.5 mg/dL (0.2-1.0) Aspartate Amino Transferase (AST) 15 U/L (13-40) Alanine Aminotransferase (ALT) 11 U/L (7-40) Alkaline Phosphatase 111 U/L (46-116) Total Protein 6.7 g/dL (5.7-8.2) Albumin 4.4 g/dL (3.2-4.8) Other Laboratory Tests 10/27/24 06:23 Brief Hx & Hospital Course: Mikhail Mckee is a 59-year-old male with a complex medical history, including chronic obstructive pulmonary disease (COPD), end-stage renal disease requiring hemodialysis three times a week, type 2 diabetes mellitus, hypertension, coronary artery disease with seven stents, and heart failure with mid-range ejection fraction (HFmrEF) of 45%. He presented to the emergency room with chest pain that began after his last dialysis session while walking to his car. He described the pain as sharp and localized to the left side of his chest, radiating toward the center, rating it 9 out of 10 on the pain scale, and accompanied by shortness of breath. He noted experiencing similar pain episodes in the past few months but denied any fever, chills, malaise, or recent sick contacts. Upon arrival, he exhibited tachycardia and tachypnea, prompting the administration of 4 liters of oxygen via nasal cannula. Initial chest X-ray revealed bilateral patchy infiltrates, particularly in the right lung, suggesting possible consolidation or congestion. Troponin levels were negative, and the EKG showed sinus rhythm with nonspecific T-wave inversions in leads II and AVF, without ST segment changes. Laboratory results indicated leukocytopenia and an abnormal erythrocyte count. The patient received treatment with albuterol and ipratropium nebulizers, along with intravenous Lasix, leading to subsequent improvement. He is now being discharged. 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%) Acute chest pain ruled out ACS Possible pulmonary hypertension Bilateral lower extremity swelling with pain, ruled out DVT Chronic kidney disease/ end-stage renal disease on hemodialysis ESRD on HD DM type II essential HTN Hyperphosphatemia Secondary hyperparathyroidism Anemia of CKD Moderate depression Discharge Disposition: Home Discharge Instruct/Medications Scheduled Allopurinol (Zyloprim Tablet), 1 TAB PO QAM, (Reported) Amlodipine Besylate (Norvasc Tablet), 2 TAB PO DAILY, (Reported) Aspirin (Aspir-81), 1 TAB PO QAM, (Reported) Atorvastatin Calcium (Atorvastatin Calcium), 1 TAB PO DAILY, (Reported) Cbvrrswits-Hinwqhjqylibmk-Nuyc (Breztri Aerosphere 160-9-4.8 Mcg/Act), 1 AER IN BID, (Reported) Calcium Acetate (Phosphate Bin (Calcium Acetate), 667 MG PO TIDWM, (Reported) Clopidogrel Bisulfate (Clopidogrel), 75 MG PO DAILY Furosemide (Lasix), 40 MG PO DAILY, (Reported) Hydralazine Hcl (Hydralazine Hcl), 1 TAB PO TID, (Reported) Isosorbide Mononitrate (Isosorbide Mononitrate Er), 60 MG PO DAILY, (Reported) Levofloxacin Hemihydrate (Levofloxacin), 1 TAB PO DAILY Losartan Potassium (Cozaar), 300 MG PO DAILY, (Reported) Pantoprazole Sodium Sesquihydr (Protonix), 40 MG PO QAM, (Reported) Patiromer Sorbitex Calcium (Veltassa), 1 PKT PO DAILY, (Reported) Ranolazine (Ranolazine ER), 500 MG PO BID, (Reported) Scheduled PRN Albuterol Sulfate (Ventolin), 2.5 MG NEB Q4HP PRN for SHORTNESS OF BREATH, (Reported) Albuterol Sulfate (Ventolin Mdi), 2 PUFF IN Q6HPRN PRN for wheezing, (Reported) Clonidine Hydrochloride (Clonidine Hcl), 1 TAB PO for SBP>160, (Reported) Colchicine (Mitigare), 0.6 MG PO for for gout, (Reported) Cyclobenzaprine Hcl (Cyclobenzaprine Hcl), 1 TAB PO TID PRN Diazepam (Valium Tablet), 2 TAB PO PRN PRN for onset seizure, (Reported) Gabapentin (Gabapentin), 2 CAP PO TID PRN for onset seizure , (Reported) Hydrocodone-Acetaminophen (Hydrocodone Bitartrate/AC 10-325 mg), 1 TAB PO QID PRN Hydromorphone Hcl (Dilaudid), 1 TAB PO TID PRN Hydromorphone Hcl (Dilaudid), 1 TAB PO TID PRN Ipratropium-Albuterol (Ipratropium [place]/Albut), 1 JACOB IN QIDPRN PRN for SHORTNESS OF BREATH, (Reported) Discharge Statement: "Patient was advised to return to the ER or call 911 if any headaches, dizziness, shortness of breath, chest pain, abdominal pain, bleeding, fevers, or worsening of medical condition. Patient was counseled about treatment plan, medications, possible side effects, patientverbalized understanding. All questions were answered to the best of my ability. This discharge took greater then 30 minutes in planning, reviewing documentation, counseling the patient, and discussing with other team members." ASSESSMENT ASSESSMENT Assessment Date of Service: Oct 27, 2024 Billing Provider: AUDREY BIRD MD Common Visit Codes: 52418-ELK/OBS DISCH DAY >30min TRISHA HERNANDEZ RESIDENT Oct 27, 2024 12:57 AUDREY BIRD MD Oct 29, 2024 11:09
[2024-10-27] MEDS ORDERED: EPOETIN ALFA-EPBX 4,000 UNIT/ML VIAL SC ONE (21:00)
== END 2024-10-27 18:00 | disposition home or self-care (01) | DRG 871 ==
LOC: ER 20:24 → OVERFLOW 10-24 00:32 → WEST WING 10-24 04:03
PROVIDERS: ADMIT Student in an Organized Health Care Education/Training Program; ATTEND Student in an Organized Health Care Education/Training Program
PROC: 0W993ZX Drainage of Right Pleural Cavity, Percutaneous Approach, Diagnostic (ICD-10-PCS; principal; 2024-10-24)
PROC: 5A1D70Z Performance of Urinary Filtration, Intermittent, Less than 6 Hours Per Day (ICD-10-PCS; 2024-10-25)
DX: A41.59 Other Gram-negative sepsis (principal); I50.23 Acute on chronic systolic (congestive) heart failure; J15.69 Pneumonia due to other Gram-negative bacteria; J96.01 Acute respiratory failure with hypoxia; J15.9 Unspecified bacterial pneumonia; N18.6 End stage renal disease; J12.9 Viral pneumonia, unspecified; J44.1 Chronic obstructive pulmonary disease with (acute) exacerbation; I13.2 Hypertensive heart and chronic kidney disease with heart failure and with stage 5 chronic kidney disease, or end stage renal disease; I24.9 Acute ischemic heart disease, unspecified; N25.81 Secondary hyperparathyroidism of renal origin; J44.0 Chronic obstructive pulmonary disease with (acute) lower respiratory infection; J91.8 Pleural effusion in other conditions classified elsewhere; J44.9 Chronic obstructive pulmonary disease, unspecified; F17.210 Nicotine dependence, cigarettes, uncomplicated; I25.10 Atherosclerotic heart disease of native coronary artery without angina pectoris; D63.1 Anemia in chronic kidney disease; E83.39 Other disorders of phosphorus metabolism; I27.20 Pulmonary hypertension, unspecified; E11.22 Type 2 diabetes mellitus with diabetic chronic kidney disease; Z99.2 Dependence on renal dialysis; Z95.5 Presence of coronary angioplasty implant and graft; Z95.1 Presence of aortocoronary bypass graft; Z90.49 Acquired absence of other specified parts of digestive tract; Z88.0 Allergy status to penicillin; Z83.3 Family history of diabetes mellitus; Z82.49 Family history of ischemic heart disease and other diseases of the circulatory system
CPT/HCPCS: 32555; 36415; 71045; 71250; 76942; 80048; 80053; 80061; 80307; 81001; 83036; 83605; 83880; 83986; 84484; 85007; 85025; 85027; 85379; 85610; 85730; 87040; 87070; 87205; 87340; 87426; 87804; 89051; 90935; 93005; 93970; 94640; 96374; 96375; 97110; 97116; 97163; 97530; 99291; G0378; J2405

== ENCOUNTER 2024-11-13 16:38 | Inpatient (IN) | payer MEDICARE ==
[~2024-11-13] VITALS: Ht 190.5 cm; Wt 104.0 kg
[~2024-11-13 16:38] MED LIST changes: +LEVO500T91 PO
--- NOTE | 2024-11-13 17:47 | ECG ---
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
--- NOTE | 2024-11-13 17:48 | ECG ---
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
--- NOTE | 2024-11-13 18:15 | ED.PDOC ---
HPI Comments 59-year-old male with a history of COPD on home O2, end-stage renal disease on dialysis, CAD status post PTCA with 7 stents, hypertension, dyslipidemia complaining of chest pain and shortness of breath for the past 2 days. Patient states the pain is left-sided, pressure-like, no particular exacerbating or alleviating factors, associated with worsening lower extremity edema despite being dialyzed on schedule. Last dialysis was today. Denies any fever or cough. Chief Complaint: Chest Pain Time Seen by MD: 18:15 Primary Care Provider: UNKNOWN Reviewed Notes: Nurses Notes, Medications, Allergies Allergies: Coded Allergies: Penicillins (Verified Allergy, Unknown, 10/24/24) Home Meds Active Scripts Hydrocodone-Acetaminophen (Hydrocodone Bitartrate/AC 10-325 mg) 1 Tab Tab, 1 TAB PO QID PRN, #40 TAB Prov:SHARMIN AN MD 10/30/24 Levofloxacin Hemihydrate (LEVOFLOXACIN) 500 Mg Tab, 1 TAB PO DAILY for 4 Days, #4 TAB Prov:LAURE TELLO 10/27/24 Hydromorphone Hcl (Dilaudid) 2 Mg Tab, 1 TAB PO TID PRN, #40 TAB Prov:SHARMIN AN MD 08/16/24 Cyclobenzaprine Hcl (Cyclobenzaprine Hcl) 5 Mg Tab, 1 TAB PO TID PRN, #30 TAB Prov:SHARMIN AN MD 07/30/24 Hydromorphone Hcl (Dilaudid) 2 Mg Tab, 1 TAB PO TID PRN, #40 TAB Prov:SHARMIN AN MD 07/30/24 Clopidogrel Bisulfate (CLOPIDOGREL) 75 Mg Tab, 75 MG PO DAILY for 30 Days, #30 TAB Prov:LEÓN COLLINS MD 08/16/23 Reported Medications Patiromer Sorbitex Calcium (Veltassa) 8.4 Gm Pow, 1 PKT PO DAILY 07/12/24 Colchicine (Mitigare) 0.6 Mg Cap, 0.6 MG PO PRN for for gout, CAP 07/12/24 Albuterol Sulfate (VENTOLIN MDI) 90 Mcg Ih, 2 PUFF IN Q6HPRN PRN for wheezing, INH 07/12/24 Losartan Potassium (Cozaar) 100 Mg Tab, 300 MG PO DAILY, TAB 07/12/24 Ipratropium-Albuterol (Ipratropium Hayes/Albut) 1 Jacob Jacob, 1 JACOB IN QIDPRN PRN for SHORTNESS OF BREATH, ML 07/12/24 Clonidine Hydrochloride (Clonidine Hcl) 0.1 Mg Tab, 1 TAB PO PRN for SBP>160 04/17/24 Furosemide (Lasix) 40 Mg Tab, 40 MG PO DAILY, TAB 03/04/24 Amlodipine Besylate (NORVASC TABLET) 5 Mg Tb, 2 TAB PO DAILY, #30 TAB 5 Refills 03/04/24 Isosorbide Mononitrate (Isosorbide Mononitrate Er) 30 Mg Tab, 60 MG PO DAILY for CAD 09/19/23 Calcium Acetate (Phosphate Bin (Calcium Acetate) 667 Mg Cap, 667 MG PO TIDWM for DIALYSIS, MG 09/19/23 Atorvastatin Calcium (ATORVASTATIN CALCIUM) 40 Mg Tab, 1 TAB PO DAILY for HIGH CHOLESTEROL, #30 TAB 5 Refills 09/19/23 Uzuxctxcsb-Jblkvrbbckoyup-Isci ([facility] Aerosphere 160-9-4.8 Mcg/Act) 1 Aer Aer, 1 AER IN BID for COPD, AER 09/19/23 Albuterol Sulfate (Ventolin) 2.5 Mg/3 Ml Nb, 2.5 MG NEB Q4HP PRN for SHORTNESS OF BREATH, INH 09/19/23 Ranolazine (Ranolazine ER) 500 Mg Tab, 500 MG PO BID for CAD, TAB 09/19/23 Diazepam (VALIUM TABLET) 5 Mg Tb, 2 TAB PO PRN PRN for onset seizure, TAB 08/14/23 Hydralazine Hcl (Hydralazine Hcl) 100 Mg Tab, 1 TAB PO TID, #90 TAB 5 Refills 08/14/23 Gabapentin (Gabapentin) 100 Mg Cap, 2 CAP PO TID PRN for onset seizure , #90 CAP 2 Refills Take with diazepam. 08/14/23 Pantoprazole Sodium Sesquihydr (Protonix) 40 Mg Tab, 40 MG PO QAM, #30 TAB 08/14/23 Aspirin (Aspir-81) 81 Mg Tab, 1 TAB PO QAM, #30 TAB 5 Refills 08/14/23 Allopurinol (ZYLOPRIM TABLET) 100 Mg Tb, 1 TAB PO QAM, #30 TAB 5 Refills 08/14/23 Information Source: Patient Mode of Arrival: Wheelchair Severity: Moderate Timing: Days Duration: Since onset Prehospital treatment: None Location: Chest (L) Radiation: No Radiation Quality: Other (DULL) Onset: With Light Exertion, While Asleep Cardiac Risk Factors: HTN, Diabetes PE Risk Factors: None History of: None Modifying Factors: Nothing Associated Signs and Symptoms: SOB Past Medical History PAST MEDICAL HISTORY: CAD, COPD, DM, ESRD, HTN Surgical History: Appendectomy, Cholecystectomy, PTCA Surgical History (Other): Back surgery Family History Family History: Reviewed,noncontributory to illness, No family hx of Cancer, No family hx of DM, No family hx of Heart [place], No family hx of HTN, No family hx ofKidney [place], No family hx of Liver [place], No family hx of Lung [place], No family hx of Stroke Social History Smoker: Cigarettes Alcohol: Denies ETOH Use Drugs: Denies Drug Use Lives In: Home Constitutional: denies: chills, diaphoresis, fatigue, fever, malaise, sweats, weakness, others EENTM: denies: blurred vision, double vision, ear bleeding, ear discharge, ear drainage, ear pain, ear ringing, eye pain, eye redness, hearing loss, mouth pain, mouth swelling, nasal discharge, nose bleeding, nose congestion, nose pain, photophobia, tearing, throat pain, throat swelling, voice changes, others Respiratory: reports: shortness of breath; denies: cough, hemoptysis, orthop uyen, SOB at rest, SOB with excertion, stridor, wheezing, others Cardiovascular: reports: chest pain; denies: dizzy spells, diaphoresis, Dyspnea on exertion, edema, irregular heart beat, left arm pain, lightheadedness, palpitations, PND, syncope, others Gastrointestinal: denies: abdomen distended, abdominal pain, blood streaked bowels, constipated, diarrhea, dysphagia, difficulty swallowing, hematemesis, melena, nausea, poor appetite, poor fluid intake, rectal bleeding, rectal pain, vomiting, others Genitourinary: denies: burning, dysuria, flank pain, frequency, hematuria, incontinence, penile discharge, penile sore, pain, testicle pain, testicle swelling, urgency, others Neurological: denies: dizziness, fainting, headache, left sided numbness, left sided weakness, numbness, paresthesia, pre-existing deficit, right sided numbness, right sided weakness, seizure, speech problems, tingling, tremors, weakness, others Musculoskeletal: denies: back pain, gout, joint pain, joint swelling, muscle pain, muscle stiffness, neck pain, others Integumetry: denies: bruises, change in color, change in hair/nails, dryness, laceration, lesions, lumps, rash, wounds, others Allergic/Immunocompromised: denies: Difficulty Healing, Frequent Infections, Hives, Itching, others Hematologic/Lymphatic: denies: anemia, blood clots, easy bleeding, easy bruising, swollen glands, others Endocrine: denies: excessive hunger, excessive sweating, excessive thirst, excessive urination, flushing, intolerance to cold, intolerance to heat, unexplained weight gain, unexplained weight loss, others Psychiatric: denies: anxiety, bipolar disorder, depression, hopeless, panic disorder, schizophrenia, sleepless, suicidal, others All Other Systems: Reviewed and Negative Physical Exam General Appearance: Mild Distress HEENT: Other (Pupils and face symmetric. Moist mucous membranes.) Neck: Full Range of Motion, Normal Inspection Respiratory: No Accessory Muscle Use, Respiratory Distress (Mild tachypnea), Rhonchi Cardiovascular: No JVD, Regular Rate/Rhythm Breast Exam: Deferred Gastrointestinal: Non Tender, Soft Genitalia: Deferred Pelvic: Deferred Rectal: Deferred Extremities: Leg edema, Normal range of motion, Pedal edema Neurologic: Alert (Oriented x4), Normal Affect, Normal Mood Cerebellar Function: NOT DONE Reflexes: NOT DONE Skin: Dry, Pallor, Warm Lymphatic: NOT DONE EKG EKG : Comments Sinus tach, rate 105, normal SD and QRS intervals, QTC 491, normal axis, possible old lateral infarct, inferior ST-depression with other nonspecific T c hange. Was a procedure done? Was a procedure done?: No CP Differential Dx Differential Diagnosis: Angina, [place] Other Differential Diagnosis COPD, among others Differential Diagnosis: CHF Differential Diagnosis: Chest Wall Pain, Costochondritis, Esophageal reflux/spasm, Gastritis, Pericarditis, Pulmonary Embolus X-Ray, Labs, Meds, VS Vital Signs Date Time Temp Pulse Resp B/P (MAP) Pulse Ox O2 Delivery O2 Flow Rate FiO2 11/13/24 18:40 20 97 Room Air* 0 21 11/13/24 17:35 105 11/13/24 16:40 98.5 106 22 173/85 94 98.5 11/13/24 16:40 108 Lab Test 11/13/24 19:20 11/13/24 16:40 Range/Units Troponin I High Sensitivity 29 29 </=54 ng/L White Blood Count 1.2 *L 4.4-10.8 10^3/uL Red Blood Count 3.29 L 4.5-5.90 10^6/uL Hemoglobin 10.3 L 13.5-17.5 g/dL Hematocrit 30.8 L 41.0-53.0 % Mean Corpuscular Volume 93.6 80.0-100.0 fL Mean Corpuscular Hemoglobin 31.3 28.0-32.0 pg Mean Corpuscular Hemoglobin Concent 33.5 32.0-36.0 g/dL Red Cell Distribution Width 17.8 H 11.8-14.3 % Platelet Count 102 L 140-450 10^3/uL Mean Platelet Volume 7.4 6.9-10.8 fL Neutrophils (%) (Auto) 37.0-80.0 % Lymphocytes (%) (Auto) 10.0-50.0 % Monocytes (%) (Auto) 0.0-12.0 % Basophils (%) (Auto) 0.0-2.0 % Neutrophils # (Auto) 1.6-8.6 10 ^3/uL Lymphocytes # (Auto) 0.4-5.4 10 ^3/uL Monocytes # (Auto) 0-1.3 10 ^3/uL Differential Total Cells Counted Pending Neutrophils % (Manual) Pending Band Neutrophils % (Manual) 0 Lymphocytes % (Manual) 0 L 10.0-50.0 Monocytes % (Manual) 0 0-12 Eosinophils % (Manual) 0 0-7 Basophils % (Manual) 0 0.0-2.0 Metamyelocytes % (manual) 0 Myelocytes % (Manual) 0 Promyelocytes % (Manual) 0 Blast Cells % (Manual) 0 Reactive Lymphocytes 0 Platelet Estimate Pending Sodium Level 134 L 136-145 mmol/L Potassium Level 5.0 3.5-5.1 mmol/L Chloride Level 91 L 98-107 mmol/L Carbon Dioxide Level 32 H 20-31 mmol/L Anion Gap 11 5-15 Blood Urea Nitrogen 30 H 9-23 mg/dL Creatinine 4.52 H 0.700-1.30 mg/dL Glomerular Filtration Rate Calc 14 >90 mL/min BUN/Creatinine Ratio 6.6 L 10.0-20.0 Serum Glucose 173 H 74-106 mg/dL Calcium Level 9.3 8.7-10.4 mg/dL B-Type Natriuretic Peptide 2523.00 0-100 pg/mL Current Medications Medications (Trade) Dose Ordered Sig/Gerard Route Start Time Stop Time Status Last Admin Albuterol (Ventolin Medneb) 5 mg ONCE ONCE NEB 11/13/24 18:30 11/13/24 18:31 DC 11/13/24 18:39 Ipratropium Hayes (Atrovent Medneb) 0.5 mg ONCE ONCE NEB 11/13/24 18:30 11/13/24 18:31 DC 11/13/24 18:39 PROCEDURE(s): CXRP - CHEST PORTABLE REASON: cp sob ORDER NUMBER(s): [id number], ACCESSION NUMBER(s): [id number] EXAM: XY CHEST PORTABLE HISTORY: cp sob TECHNIQUE: 1 view of the chest COMPARISON: CT CHEST WITHOUT CONTRAST on DOS: 10/24/24 FINDINGS/IMPRESSION: LUNGS: No pleural effusion, consolidation, or pneumothorax. Central pulmonary vascular congestion with peripheral interstitial edema. Overall appearance of volume overload MEDIASTINUM: Unremarkable BONES: No acute osseous abnormality OTHER: None X-Ray, Labs, Meds, VS Comment 59-year-old male with a history of COPD on home O2, end-stage renal disease on dialysis, CAD status post 7 stents, hypertension, hyperlipidemia, ejection fraction 45% complaining of chest pain and shortness of breath Vitals remarkable for heart rate 106, respiratory rate 22, BP 173/85, oxygen saturation 94% on 3 L nasal cannula Exam remarkable for mild respiratory distress, scattered rhonchi, tachypnea, 1+ lower extremity edema Rhythm strip independently interpreted by me: Sinus tach, rate 105, no ectopy. Chest x-ray Central pulmonary vascular congestion with peripheral interstitial edema. Overall appearance of volume overload CBC remarkable for WBC 1.2 and platelets 102, basic metabolic panel remarkable for sodium 134, chloride 91, BUN 30, creatinine 4.52, BNP 2523, troponin negative x2 Patient treated with the following in the ED: Albuterol 5 mg/Atrovent 0.5 mg nebulized, Solu-Medrol 125 mg IV, Bumex 1 mg IV, aspirin 325 mg p.o., nitro bid 1/2 inch to chest wall On re-evaluation, patient states shortness of breath has improved. Oxygen saturation was 97% on 2 L nasal cannula. Was not in respiratory distress. Plan is to admit the patient for diuresis, nephrology and Cardiology evaluation Time of 1ST Reevaluation: 18:45 Reevaluation 1ST: Unchanged Patient Education/Counseling: Diagnosis, Treatment Family Education/Counseling: No Family Present SEPSIS Sepsis Screen Date sepsis recognized/suspect: Nov 13, 2024 Time Sepsis recognized/suspect: 1639 Recent Procedure: No On Antibiotic Therapy: No Respiratory Rate >20: No Heart Rate >90: No Temp<36 C (96.8 F) or >38.3 C: No SBP <90 or MAP <65 mmHG: No New Acute Mental Status Change: No Is the patient on CPAP, BIPAP,: No Physician Orders Electrocardigram (11/13/24 19:49) Complete Blood Count (11/13/24 18:23) Chest Portable (11/13/24 18:23) Urinalysis (11/13/24 18:23) Heplock Iv (11/13/24 18:23) Oxygen (11/13/24 18:23) Epic [facility] Analyst (11/13/24 18:23) Blood Pressure (11/13/24 18:23) Pulse Oximetry (11/13/24 18:23) Manual Differential (11/13/24 16:40) Vital Signs Date Time Temp Pulse Resp B/P (MAP) Pulse Ox O2 Delivery O2 Flow Rate FiO2 11/13/24 18:40 20 97 Room Air* 0 21 11/13/24 17:35 105 11/13/24 16:40 98.5 106 22 173/85 94 98.5 11/13/24 16:40 108 Laboratory Tests Test 11/13/24 16:40 White Blood Count 1.2 10^3/uL (4.4-10.8) *L Medications Medications Dose Ordered Sig/Gerard Route Start Time Stop Time Status Last Admin Dose Admin Albuterol 5 mg ONCE ONCE NEB 11/13/24 18:30 11/13/24 18:31 DC 11/13/24 18:39 Ipratropium Hayes 0.5 mg ONCE ONCE NEB 11/13/24 18:30 11/13/24 18:31 DC 11/13/24 18:39 Departure 1 Departure Time of Disposition: 22:18 Impression: Primary Impression: Acute and chronic respiratory failure Additional Impressions: COPD exacerbation Chest pain with high risk for cardiac etiology Fluid overload Qualified Codes: E87.70 - Fluid overload, unspecified Disposition: ADMITTED INPATIENT Admit to: Tele Condition: Guarded Critical Care Note Critical Care Time?: Yes (35 min-critical care time only) Critical care comment: Critical care time including multiple bedside re-evaluations, review of lab and imaging studies, and discussion of the case with the admitting provider. Patient is high risk for hemodynamic, respiratory and/or metabolic decompensation. Stability Stability form required: No Heart Score Heart Score: Heart Score Response (Comments) Value History Moderate Suspicious [address]-Deviation 2 Age 45-64 1 Risk Factors >3 or Hx ASHD 2 Troponin Normal limit 0 Total 6 I personally scribed for JESUS FLETCHER MD ([email or web address]) on 11/13/24 at 18:15. Electronically submitted by Billie Castrejon ([email or web address]). I personally scribed for JESUS FLETCHER MD ([email or web address]) on 11/13/24 at 20:10. Electronically submitted by Billie Castrejon ([email or web address]). JESUS FLETCHER MD Nov 13, 2024 18:15
[2024-11-13] MEDS: NITROGLYCERIN 2% OINT 1GM PKG TD ONE (18:30)
[2024-11-13] MEDS: ALBUTEROL SULF 2.5 MG/0.5ML(0.5%) NEB SOLN NEB ONE (18:39)
[2024-11-13] MEDS: IPRATROPIUM BROM 0.5 MG/2.5ML INH SOL NEB ONE (18:39)
[2024-11-13 19:16] LABS: Potassium 5.0 mmol/L (3.5-5.1)
[2024-11-13 19:17] LABS: Anion Gap 11 (5-15); Calcium 9.3 mg/dL (8.7-10.4)
[2024-11-13 19:22] LABS: BUN/Creatinine Ratio 6.6 (10.0-20.0)
[2024-11-13 19:23] LABS: Blood Urea Nitrogen 30 mg/dL (9-23); Carbon Dioxide 32 mmol/L (20-31); Chloride 91 mmol/L (98-107); Glucose 173 mg/dL (74-106); Sodium 134 mmol/L (136-145)
--- NOTE | 2024-11-13 19:24 | DVH ---
EXAM: XY CHEST PORTABLE HISTORY: cp sob TECHNIQUE: 1 view of the chest COMPARISON: CT CHEST WITHOUT CONTRAST on DOS: 10/24/24 FINDINGS/IMPRESSION: LUNGS: No pleural effusion, consolidation, or pneumothorax. Central pulmonary vascular congestion wi th peripheral interstitial edema. Overall appearance of volume overload MEDIASTINUM: Unremarkable BONES: No acute osseous abnormality OTHER: None
[2024-11-13 19:45] LABS: Hematocrit 30.8 % (41.0-53.0); Hemoglobin 10.3 g/dL (13.5-17.5)
[2024-11-13 19:47] LABS: Mean Corpuscular Hemoglobin 31.3 pg (28.0-32.0); Mean Corpuscular Volume 93.6 fL (80.0-100.0)
[2024-11-13 22:09] LABS: Total Cells Counted 100.0 (100)
[2024-11-13 22:12] LABS: Anisocytosis Slight
[2024-11-13] MEDS ORDERED: DOCUSATE SOD 100 MG CAP PO PRN (23:45)
[2024-11-14] VITALS (15 sets, daily range): BP systolic 148–163; BP diastolic 72–89; PULSE 78–112; RESP 15–22; TEMP 97.7–98.6; O2SAT 95–100
[2024-11-14] MEDS ORDERED: VANCOMYCIN PER PHARMACY 0 MG IV SCH (00:30)
[2024-11-14] MEDS ORDERED: PIPERACILLIN-TAZOB 3.375GM 100 ML IV ONE (00:30)
[2024-11-14] MEDS: HEPARIN SODIUM (PORCINE) 5000 UNITS/ML 1ML VIAL SC SCH (00:45)
[2024-11-14] MEDS: BUMETANIDE 1mg/4ml VIAL (0.25mg/ml) IV ONE (01:37)
[2024-11-14] MEDS: methylPREDNISolone SOD SUCC 125 MG/2 ML VL IV ONE (01:37)
[2024-11-14] MEDS: MELATONIN 5 MG TAB PO ONE (01:39)
--- NOTE | 2024-11-14 01:52 | DVH ---
Bilateral lower extremity venous duplex Clinical History: yes Comparison: US BILAT LOWER DVT on DOS: 10/24/24, US US GUIDED VASCULAR ACCESS on DOS: 07/26/24, XY INSE RTION OF VENOUS CATH on DOS: 04/23/24 Technique: Duplex Doppler evaluation of the deep venous systems of both lower extremities from the common femora l veins to the popliteal veins including color Doppler and spectral/pulsed waveform analysis was perf ormed. Findings: RIGHT SIDE: The common femoral vein demonstrates appropriate compressibility and waveform variability. There is compressibility/patency of the great saphenous vein at the proximal thigh. The femoral vein demonstrates appropriate compressibility and waveform variability. The deep femoral vein demonstrates appropriate compressibility and waveform variability. The popliteal vein demonstrates appropriate compressibility and waveform variability. There is normal compressibility at the tibioperoneal trunk. LEFT SIDE: The common femoral vein demonstrates appropriate compressibility and waveform variability. There is compressibility/patency of the great saphenous vein at the proximal thigh. The femoral vein demonstrates appropriate compressibility and waveform variability. The deep femoral vein demonstrates appropriate compressibility and waveform variability. The popliteal vein demonstrates appropriate compressibility and waveform variability. There is normal compressibility at the tibioperoneal trunk. Impression: 1. No right or left femoropopliteal venous thrombosis.
[2024-11-14] MEDS: VANCOMYCIN 1GM/250ML KIT 250 ML IV SCH (01:54)
[2024-11-14] MEDS ORDERED: IPRATROPIUM BROM 0.5 MG/2.5ML INH SOL NEB SCH (02:00)
[2024-11-14] MEDS ORDERED: ALBUTEROL SULF 2.5 MG/0.5ML(0.5%) NEB SOLN NEB SCH (02:00)
[2024-11-14] MEDS ORDERED: DEXTROSE (50%) 50ML SYRG IV PRN (02:00)
[2024-11-14 02:14] LABS: Hematocrit 31.1 % (41.0-53.0); Hemoglobin 10.4 g/dL (13.5-17.5); Mean Corpuscular Hemoglobin 31.2 pg (28.0-32.0); Mean Corpuscular Volume 93.4 fL (80.0-100.0); Nucleated Red Blood Cells % 0.1 %
[2024-11-14 02:26] LABS: Alanine Aminotransferase 14 U/L (7-40); Albumin 4.4 g/dL (3.2-4.8); Anion Gap 9 (5-15); BUN/Creatinine Ratio 6.1 (10.0-20.0); Calcium 9.5 mg/dL (8.7-10.4); Magnesium 2.4 mg/dL (1.6-2.6); Potassium 5.0 mmol/L (3.5-5.1); Total Protein 7.2 g/dL (5.7-8.2)
[2024-11-14 02:27] LABS: Bilirubin, Total 0.4 mg/dL (0.2-1.0)
[2024-11-14 02:30] LABS: Alkaline Phosphatase 121 U/L (46-116); Blood Urea Nitrogen 30 mg/dL (9-23); Carbon Dioxide 32 mmol/L (20-31); Chloride 93 mmol/L (98-107); Glucose 140 mg/dL (74-106); Sodium 134 mmol/L (136-145)
[2024-11-14 02:31] LABS: INR 1.08 (0.9-1.15); Partial Thromboplastin Time 35.4 SEC (24.5-34.5); Prothrombin Time 11.4 sec (9.3-11.8)
[2024-11-14 03:27] LABS: COVID19 ANTIGEN SOFIA FIA NEGATIVE (NEGATIVE)
[2024-11-14] MEDS: IPRATROPIUM BROM 0.5 MG/2.5ML INH SOL NEB ONE (03:28)
[2024-11-14] MEDS: ALBUTEROL SULF 2.5 MG/0.5ML(0.5%) NEB SOLN NEB ONE (03:28)
[2024-11-14 03:29] LABS: Anisocytosis Slight
[2024-11-14] MEDS: CEFEPIME 1GM/50ML 50 ML IV ONE (04:00)
[2024-11-14] MEDS: InsuLIN REG 1unit/0.01ml Soln (100units/ml) SC SCH (04:10)
--- NOTE | 2024-11-14 05:27 | DVHHPRES ---
History of Present Illness Resident Creating Document: TRISHA HERNANDEZ History of Present Illness History of Present Illness (HPI): Mikhail Mckee is a 59-year-old male with a complex and extensive medical history, including HFrEF, coronary artery disease, diabetes mellitus, end-stage renal disease (ESRD) requiring dialysis, hypertension, dyslipidemia, colonic polyps, and gastroesophageal reflux disease (GERD). He presented to the hospital with acute symptoms of shortness of breath and bilateral leg swelling that began one day prior to admission. In addition to these complaints, he reports experiencing chest pain and a productive cough with white sputum. At home, Mr. Mckee is on 2 liters of supplemental oxygen and relies on a walker for ambulation due to limited mobility. 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 His has expressed concern regarding his behavior at home, describing him as frequently agitated. Past Medical History (PMH): HFrEF, coronary artery disease, diabetes mellitus, end-stage renal disease (ESRD) requiring dialysis, hypertension, dyslipidemia, colonic polyps, and gastroesophageal reflux disease (GERD) Past Surgical History (PSH): Appendectomy, cholecystectomy, surgery for os teomyelitis Family history (FH): Pancreatic cancer in father EtOH: Patient denies alcohol use Smoking /Vapin pack year smoking history Recreational Drugs: Denies recreational drug use Residence: Lives with family Home Medications: Albuterol ipratropium, allopurinol, amlodipine, aspirin, atorvastatin, clopidogrel, furosemide, hydralazine, isosorbide mononitrate, metoprolol, pantoprazole, Entresto Allergies: Penicillin PCP: Dr. Wallace Specialist relevant to admission: Nephrology, [facility] Review of Systems Review of Systems General: patient denies fever, fatigue, weaknes, sweating, any recent changes in appetite and weight HEENT: No headaches, visiual changes, hearing loss, tinnitus, nasal congestion and discharge, and sore throat. Cardiovascular: Complains of shortness of breath, no chest pain Respiratory: Complains of cough Gastrointestinal: Denies nausea, vomiting, dysphagia, odynophagia, heartburn, abdominal pain, flatulence, bloating, diarrhea, constipation, change in stool, or blood in stool. Genitourinary: No dysuria, hematuria, discharge, frequency, urgency, nocturia, incontinence, and urinary retention. Endocrine: No heat or cold intolerance, polydipsia, polyuria, and polyphagia. Neurological: No dizziness, extremity weakness and numbness, tremors, gait disturbance, seizures, and memory impairment. Psychiatric: Denies depression, anxiety,or insomnia. Musculoskeletal: Complains of bilateral foot swelling Skin: No rashes, itching, skin lesion, changes in hair, nail, skin texture and breast. Hematologic/Lymphatic: Denies easy bruising, bleeding tendencies, or lymph node enlargement. Allergies: Coded Allergies: Penicillins (Verified Allergy, Unknown, 10/24/24) Medications Current Medications Medications Dose Ordered Sig/Gerard Route Start Time Stop Time Status Last Admin Dose Admin Docusate Sodium 100 mg BIDPRN PRN PO 11/13/24 23:45 Exam Vital Signs Vital Signs Date Time Temp Pulse Resp B/P (MAP) Pulse Ox O2 Delivery O2 Flow Rate FiO2 11/13/24 18:40 20 97 Room Air* 0 21 11/13/24 17:35 105 11/13/24 16:40 98.5 173/85 98.5 Exam General Appearance: Alert, Oriented X3, Cooperative, No acute distress HEENT: Atraumatic, PERRLA, EOMI, Mucous membrane moist/pink Respiratory: Clear to auscultation, Normal air movement Cardiovascular: Regular rate, Normal S1, Normal S2, No murmurs, no chest wall tenderness Abdominal: Normal bowel sounds, Soft, No tenderness, No hepatospenomegaly, No masses Extremities: Bilateral pitting pedal edema Skin: No rashes, No breakdown, No significant lesion Neuro: Normal gait, Normal speech, Strength at 5/5 X4 ext, Normal tone, Sensation intact, Cranial nerves 3-12 NL, Reflexes 2+ Psych/Mental Status: Mental status NL, Mood NL Labs/Xrays Labs Test 11/13/24 19:20 11/13/24 16:40 Range/Units Troponin I High Sensitivity 29 </=54 ng/L White Blood Count 1.2 *L 4.4-10.8 10^3/uL Red Blood Count 3.29 L 4.5-5.90 10^6/uL Hemoglobin 10.3 L 13.5-17.5 g/dL Hematocrit 30.8 L 41.0-53.0 % Mean Corpuscular Volume 93.6 80.0-100.0 fL Mean Corpuscular Hemoglobin 31.3 28.0-32.0 pg Mean Corpuscular Hemoglobin Concent 33.5 32.0-36.0 g/dL Red Cell Distribution Width 17.8 H 11.8-14.3 % Platelet Count 102 L 140-450 10^3/uL Mean Platelet Volume 7.4 6.9-10.8 fL Neutrophils (%) (Auto) 37.0-80.0 % Lymphocytes (%) (Auto) 10.0-50.0 % Monocytes (%) (Auto) 0.0-12.0 % Basophils (%) (Auto) 0.0-2.0 % Neutrophils # (Auto) 1.6-8.6 10 ^3/uL Lymphocytes # (Auto) 0.4-5.4 10 ^3/uL Monocytes # (Auto) 0-1.3 10 ^3/uL Differential Total Cells Counted 100.0 100 Neutrophils % (Manual) 37 37.0-80.0 Band Neutrophils % (Manual) 0 Lymphocytes % (Manual) 50 10.0-50.0 Monocytes % (Manual) 10 0-12 Eosinophils % (Manual) 3 0-7 Basophils % (Manual) 0 0.0-2.0 Metamyelocytes % (manual) 0 Myelocytes % (Manual) 0 Promyelocytes % (Manual) 0 Blast Cells % (Manual) 0 Reactive Lymphocytes 0 Platelet Estimate Decreased Anisocytosis (manual) Slight Sodium Level 134 L 136-145 mmol/L Potassium Level 5.0 3.5-5.1 mmol/L Chloride Level 91 L 98-107 mmol/L Carbon Dioxide Level 32 H 20-31 mmol/L Anion Gap 11 5-15 Blood Urea Nitrogen 30 H 9-23 mg/dL Creatinine 4.52 H 0.700-1.30 mg/dL Glomerular Filtration Rate Calc 14 >90 mL/min BUN/Creatinine Ratio 6.6 L 10.0-20.0 Serum Glucose 173 H 74-106 mg/dL Calcium Level 9.3 8.7-10.4 mg/dL B-Type Natriuretic Peptide 2523.00 0-100 pg/mL SEPSIS Sepsis Screen Date sepsis recognized/suspect: Nov 13, 2024 Time Sepsis recognized/suspect: 1640 Recent Procedure: No On Antibiotic Therapy: No Respiratory Rate >20: No Heart Rate >90: No Temp<36 C (96.8 F) or >38.3 C: No SBP <90 or MAP <65 mmHG: No New Acute Mental Status Change: No Is the patient on CPAP, BIPAP,: No Physician Orders Electrocardigram (11/13/24 19:49) Chest Portable (11/13/24 18:23) Urinalysis (11/13/24 18:23) Heplock Iv (11/13/24 18:23) Oxygen (11/13/24 18:23) Product Support Manager (11/13/24 18:23) Blood Pressure (11/13/24 18:23) Pulse Oximetry (11/13/24 18:23) Admit (11/13/24 23:32) Allergies (11/13/24 23:32) Code Status (11/13/24 23:32) Renal Standard(2gna,3gk,Lopho) (11/14/24 Breakfast) Docusate Sodium Capsule (Colace Capsule) (11/13/24 23:45) Fall Risk Precautions In Place QSHIFT (11/13/24 23:32) Complete Blood Count (11/14/24 04:00) Comprehensive Metabolic Panel (11/14/24 04:00) Condition: Fair (11/13/24 23:32) Vital Signs Date Time Temp Pulse Resp B/P (MAP) Pulse Ox O2 Delivery O2 Flow Rate FiO2 11/13/24 18:40 20 97 Room Air* 0 21 11/13/24 17:35 105 11/13/24 16:40 98.5 106 22 173/85 94 98.5 11/13/24 16:40 108 Laboratory Tests Test 11/13/24 16:40 White Blood Count 1.2 10^3/uL (4.4-10.8) *L Medications Medications Dose Ordered Sig/Gerard Route Start Time Stop Time Status Last Admin Dose Admin Albuterol 5 mg ONCE ONCE NEB 11/13/24 18:30 11/13/24 18:31 DC 11/13/24 18:39 5 MG Ipratropium [place] 0.5 mg ONCE ONCE NEB 11/13/24 18:30 11/13/24 18:31 DC 11/13/24 18:39 0.5 MG Assessment/Plan Assessment/Plan Assessment and plan # Sepsis likely due ?viral pneumonia/CAP - IV fluids - IV vancomycin and cefepime - Follow blood culture, sputum culture - Neutropenic precautions - Follow lactic acid levels - Follow COVID, influenza results # Neutropenia due to ?viral pneumonia -- IV vancomycin and cefepime - Follow blood culture - Neutropenic precautions - Follow lactic acid levels # Viral Pneumonia ?overlapping gram +/- pneumonia - Follow COVID, influenza results - IV vancomycin and cefepime - Follow blood culture, sputum culture - Neutropenic precautions - Follow lactic acid levels - Follow COVID, influenza results # COPD, acute exacerbation - On 2 L oxygen - Continue albuterol and ipratropium nebulizations - IV methylprednisone once given in the ER, consider restarting prednisone after sepsis assessment -IV vancomycin and cefepime # Acute exacerbation of heart failure - Bumex once given in the ER, held temporarily due to sepsis, restart after volume assessment - Monitor input/output - Daily weight monitoring # ESRD on hemodialysis, Tue - Neurology consult, [facility] - Next hemodialysis on - Follow Creatinine levels # Elevated d-dimer # Bilateral Lower extremity swelling, rule out DVT - Bilateral lower extremity ultrasound - D-dimer, PT PTT - Heparin -Consider CTA if high suspicion for PE, Well score 1.5 to 3.0 # Type 2 diabetes mellitus - Follow blood glucose, target BG 140-180 # Mild Hyponatremia - Monitor sodium levels # Normocytic anemia - Follow CBC # Essential hypertension - Continue home medications - Hold amlodipine # Dyslipidemia - Continue home medications # History of coronary artery disease - Post 7 stent placements - EKG, Troponin negative # GERD - Continue Protonix # Pseudoseizures - Continue home medication prn PUD prophylaxis: protonix 40mg DVT prophylaxis: Heparin Barriers to discharge: Medical diagnosis and management in progress. Patient lives with family. Need wheelchair support for ADL. PCP: Dr. Wallace Specialist Relevant To Admission: NephrologyAmadou Case discussed with Dr. Waller. Code Status: Full Code. Complex patient care discussion needed. Spend total 39 minutes for bedside assessment, case discussion and management. Plan discussed with: Patient, Spouse My Orders Orders - TRISHA HERNANDEZ RESIDENT Procedure Category Date Status Time Admit ADMIT 11/13/24 Transmitted 23:32 Allergies SEAN 11/13/24 In Process 23:32 Code Status CODE 11/13/24 Transmitted 23:32 Renal DIET 11/14/24 Transmitted Standard(2gna,3gk,Lopho) Breakfast Docusate Sodium PHA 11/13/24 In Process Capsule (Colace 23:45 Fall Risk Precautions SEAN 11/13/[address] 23:32 Complete Blood Count LAB 11/14/24 Verified 04:00 Comprehensive LAB 11/14/24 Verified Metabolic Panel 04:00 Condition: Fair SEAN 11/13/24 In Process 23:32 Date of Service: Nov 13, 2024 Billing Provider: JOEL WALLER MD Common Visit Codes: 59287-ASYAPCG INP/OBS CARE (HIGH) Secondary Visit Codes: 27398-[id number] CARE PLAN 30 MINUTES TRISHA HERNANDEZ RESIDENT Nov 13, 2024 23:53 TAMI MELISSA RESIDENT Nov 14, 2024 08:36
[2024-11-14] MEDS: PANTOPRAZOLE 40 MG TAB PO SCH (06:14)
[2024-11-14] MEDS: ACCU-CHEK COMFORT CURVE STRIP VI SCH (06:28)
[2024-11-14] MEDS: ALBUTEROL SULF 2.5 MG/0.5ML(0.5%) NEB SOLN NEB SCH (06:36)
[2024-11-14] MEDS: IPRATROPIUM BROM 0.5 MG/2.5ML INH SOL NEB SCH (06:36)
--- NOTE | 2024-11-14 07:08 | DVHINCON2 ---
Date of service: Nov 14, [address] Banda Reason for Consultation Dialysis History of Present Illness 59 Y/O M with history of ESRD on HD, DM, HTN, systolic CHF (EF: 45% 08/25/24), HLD, CAD s/p stents, pulmonary hypertension and COPD presented with chief complaint of chest pain which is left sided and SOB. CXR shows pulmonary congestion. Troponin is negative x2. K is 5.0, Hb: 10.4 g/dl, WBC is low, 1.2. He had his last dialysis yesterday at [facility] 11/14/24, and despite UF of 3.3 L he still left over his target weight. Nephrology consulted for dialysis Past Medical History ESRD HTN HLD CAD Past Surgical History AVF placement Allergies: Coded Allergies: Penicillins (Verified Allergy, Unknown, 10/24/24) Home Meds Active Scripts Hydrocodone-Acetaminophen (Hydrocodone Bitartrate/AC 10-325 mg) 1 Tab Tab, 1 TAB PO QID PRN, #40 TAB Prov:SHARMIN AN MD 10/30/24 Levofloxacin Hemihydrate (LEVOFLOXACIN) 500 Mg Tab, 1 TAB PO DAILY for 4 Days, #4 TAB Prov:LAURE TELLO 10/27/24 Hydromorphone Hcl (Dilaudid) 2 Mg Tab, 1 TAB PO TID PRN, #40 TAB Prov:SHARMIN AN MD 08/16/24 Cyclobenzaprine Hcl (Cyclobenzaprine Hcl) 5 Mg Tab, 1 TAB PO TID PRN, #30 TAB Prov:SHARMIN AN MD 07/30/24 Hydromorphone Hcl (Dilaudid) 2 Mg Tab, 1 TAB PO TID PRN, #40 TAB Prov:SHARMIN AN MD 07/30/24 Clopidogrel Bisulfate (CLOPIDOGREL) 75 Mg Tab, 75 MG PO DAILY for 30 Days, #30 TAB Prov:LEÓN COLLINS MD 08/16/23 Reported Medications Patiromer Sorbitex Calcium (Veltassa) 8.4 Gm Pow, 1 PKT PO DAILY 07/12/24 Colchicine (Mitigare) 0.6 Mg Cap, 0.6 MG PO PRN for for gout, CAP 07/12/24 Albuterol Sulfate (VENTOLIN MDI) 90 Mcg Ih, 2 PUFF IN Q6HPRN PRN for wheezing, INH 07/12/24 Losartan Potassium (Cozaar) 100 Mg Tab, 300 MG PO DAILY, TAB 07/12/24 Ipratropium-Albuterol (Ipratropium Terral/Albut) 1 Jacob Jacob, 1 JACOB IN QIDPRN PRN for SHORTNESS OF BREATH, ML 07/12/24 Clonidine Hydrochloride (Clonidine Hcl) 0.1 Mg Tab, 1 TAB PO PRN for SBP>160 04/17/24 Furosemide (Lasix) 40 Mg Tab, 40 MG PO DAILY, TAB 03/04/24 Amlodipine Besylate (NORVASC TABLET) 5 Mg Tb, 2 TAB PO DAILY, #30 TAB 5 Refills 03/04/24 Isosorbide Mononitrate (Isosorbide Mononitrate Er) 30 Mg Tab, 60 MG PO DAILY for CAD 09/19/23 Calcium Acetate (Phosphate Bin (Calcium Acetate) 667 Mg Cap, 667 MG PO TIDWM for DIALYSIS, MG 09/19/23 Atorvastatin Calcium (ATORVASTATIN CALCIUM) 40 Mg Tab, 1 TAB PO DAILY for HIGH CHOLESTEROL, #30 TAB 5 Refills 09/19/23 Zklirwrgtw-Mebkmtgigfkabt-Vxiq (Breztri Aerosphere 160-9-4.8 Mcg/Act) 1 Aer Aer, 1 AER IN BID for COPD, AER 09/19/23 Albuterol Sulfate (Ventolin) 2.5 Mg/3 Ml Nb, 2.5 MG NEB Q4HP PRN for SHORTNESS OF BREATH, INH 09/19/23 Ranolazine (Ranolazine ER) 500 Mg Tab, 500 MG PO BID for CAD, TAB 09/19/23 Diazepam (VALIUM TABLET) 5 Mg Tb, 2 TAB PO PRN PRN for onset seizure, TAB 08/14/23 Hydralazine Hcl (Hydralazine Hcl) 100 Mg Tab, 1 TAB PO TID, #90 TAB 5 Refills 08/14/23 Gabapentin (Gabapentin) 100 Mg Cap, 2 CAP PO TID PRN for onset seizure , #90 CAP 2 Refills Take with diazepam. 08/14/23 Pantoprazole Sodium Sesquihydr (Protonix) 40 Mg Tab, 40 MG PO QAM, #30 TAB 08/14/23 Aspirin (Aspir-81) 81 Mg Tab, 1 TAB PO QAM, #30 TAB 5 Refills 08/14/23 Allopurinol (ZYLOPRIM TABLET) 100 Mg Tb, 1 TAB PO QAM, #30 TAB 5 Refills 08/14/23 Current Medications Current Medications Medications (Trade) Dose Ordered Sig/Gerard Route PRN Reason Start Time Stop Time Status Last Admin Docusate Sodium (Colace Capsule) 100 mg BIDPRN PRN PO FOR CONSTIPATION 11/13/24 23:45 Piperacillin Sod/ Tazobactam Sod 50 ml @ 12.5 mls/hr Q12HR IV 11/14/24 10:00 11/14/24 00:34 DC Vancomycin HCl 250 ml @ 166.667 mls/hr Q2H IV 11/14/24 01:00 11/14/24 04:29 DC 11/14/24 03:00 Vancomycin HCl 0 ml @ 0 mls/hr UD IV 11/14/24 00:30 UNV Cefepime HCl 50 ml @ 12.5 mls/hr Q24H IV 11/15/24 01:00 Heparin Sodium (Porcine) 5,000 units Q8HR SC 11/14/24 00:45 Albuterol (Ventolin Medneb) 1.25 mg Q6HR NEB 11/14/24 02:00 11/14/24 02:11 DC Ipratropium Terral (Atrovent Medneb) 0.5 mg Q6HWA [facility] 11/14/24 02:00 11/14/24 02:11 DC Allopurinol (Zyloprim Tablet) 100 mg DAILY PO 11/14/24 10:00 Aspirin 81 mg DAILY PO 11/14/24 10:00 Atorvastatin Calcium (Lipitor) 40 mg HS PO 11/14/24 22:00 Clopidogrel Bisulfate (Plavix) 75 mg DAILY PO 11/14/24 10:00 Hydralazine HCl (Apresoline Tablet) 10 mg Q8HR PO 11/14/24 06:00 11/14/24 05:45 Isosorbide Mononitrate (Imdur Er Tablet) 60 mg DAILY PO 11/14/24 10:00 Metoprolol Succinate (Toprol Xl) 25 mg DAILY PO 11/14/24 10:00 Pantoprazole Sodium (Protonix Tablet) 40 mg DAILY@0600 PO 11/14/24 06:00 11/14/24 06:14 Sacubitril/ Valsartan (Entresto 24-26 Mg tab) 1 tab BID PO 11/14/24 10:00 Diagnostic Test (Pha) (Accu-Chek Comfort Curve T) 1 strip IQID 11/14/24 07:00 11/14/24 06:28 Insulin Human Regular (InsuLIN R) IQ4HR SC 11/14/24 04:00 11/14/24 04:10 Dextrose 50 ml UD PRN IV Blood Sugar LESS THAN 60 11/14/24 02:00 Albuterol (Ventolin Medneb) 1.25 mg Q6HR [facility] 11/14/24 06:00 11/14/24 06:36 Ipratropium Terral (Atrovent Medneb) 0.5 mg Q6HWA [facility] 11/14/24 06:00 11/14/24 06:36 Family History: Diabetes mellitus G8 MOTHER, Onset:Unknown G8 FATHER, Onset:Unknown Fibromyalgia G8 MOTHER Hypertension G8 MOTHER G8 FATHER, Onset:Unknown Review of Systems as per HPI, all other systems were reviewed and are negative H&P Exam Vital Signs/I&O Vital Sign Date Time Temp Pulse Resp B/P (MAP) Pulse Ox O2 Delivery O2 Flow Rate FiO2 11/14/24 06:41 96 Nasal Cannula 3.0 11/14/24 06:40 32 11/14/24 06:36 112 18 11/14/24 06:00 176/88 (117) 11/14/24 02:17 98.4 98.4 Intake and Output 11/13/24 11/14/24 19:00 07:00 Intake Total 383.334 ml Balance 383.334 ml Intake IV Total 383.334 ml Physical Exam Gen: NAD HEENT: NC, AT Cardiac: RRR, no murmur Lungs: crackles lung bases Abd: soft, no tenderness Ext: +2 edema b/l legs Labs/Diagnostic Data Labs/Diagnostic Data Laboratory Tests Test 11/14/24 01:50 11/14/24 01:36 11/13/24 19:20 11/13/24 16:40 Range/Units White Blood Count 1.5 *L 1.2 *L 4.4-10.8 10^3/uL Red Blood Count 3.33 L 3.29 L 4.5-5.90 10^6/uL Hemoglobin 10.4 L 10.3 L 13.5-17.5 g/dL Hematocrit 31.1 L 30.8 L 41.0-53.0 % Mean Corpuscular Volume 93.4 93.6 80.0-100.0 fL Mean Corpuscular Hemoglobin 31.2 31.3 28.0-32.0 pg Mean Corpuscular Hemoglobin Concent 33.4 33.5 32.0-36.0 g/dL Red Cell Distribution Width 17.7 H 17.8 H 11.8-14.3 % Platelet Count 92 L 102 L 140-450 10^3/uL Mean Platelet Volume 7.1 7.4 6.9-10.8 fL Neutrophils (%) (Auto) 27.6 L 37.0-80.0 % Lymphocytes (%) (Auto) 25.4 10.0-50.0 % Monocytes (%) (Auto) 33.0 H 0.0-12.0 % Eosinophils (%) (Auto) 11.9 H 0.0-7.0 % Basophils (%) (Auto) 2.1 H 0.0-2.0 % Neutrophils # (Auto) 0.4 L 1.6-8.6 10 ^3/uL Lymphocytes # (Auto) 0.4 0.4-5.4 10 ^3/uL Monocytes # (Auto) 0.5 0-1.3 10 ^3/uL Eosinophils # (Auto) 0.2 0-0.8 10 ^3/uL Basophils # (Auto) 0 0-0.2 10 ^3/uL Nucleated Red Blood Cells 0.1 % Platelet Estimate Decreased Decreased Anisocytosis (manual) Slight Slight Prothrombin Time 11.4 9.3-11.8 sec Prothrombin Time INR 1.08 0.9-1.15 Activated Partial Thromboplast Time 35.4 H 24.5-34.5 SEC D-Dimer, Quantitative 3.24 H 0.0-0.49 mg/L FEU Sodium Level 134 L 134 L 136-145 mmol/L Potassium Level 5.0 5.0 3.5-5.1 mmol/L Chloride Level 93 L 91 L 98-107 mmol/L Carbon Dioxide Level 32 H 32 H 20-31 mmol/L Anion Gap 9 11 5-15 Blood Urea Nitrogen 30 H 30 H 9-23 mg/dL Creatinine 4.93 H 4.52 H 0.700-1.30 mg/dL Glomerular Filtration Rate Calc 13 14 >90 mL/min BUN/Creatinine Ratio 6.1 L 6.6 L 10.0-20.0 Serum Glucose 140 H 173 H 74-106 mg/dL Lactic Acid Level 1.0 0.4-2.0 mmol/L Calcium Level 9.5 9.3 8.7-10.4 mg/dL Magnesium Level 2.4 1.6-2.6 mg/dL Total Bilirubin 0.4 0.2-1.0 mg/dL Aspartate Amino Transferase (AST) 15 13-40 U/L Alanine Aminotransferase (ALT) 14 7-40 U/L Alkaline Phosphatase 121 H 46-116 U/L Total Protein 7.2 5.7-8.2 g/dL Albumin 4.4 3.2-4.8 g/dL Influenza Type A Antigen Negative Negative Influenza Type B Antigen Negative Negative SARS-CoV-2 Antigen (Rapid) Negative NEGATIVE Troponin I High Sensitivity 29 29 </=54 ng/L Differential Total Cells Counted 100.0 100 Neutrophils % (Manual) 37 37.0-80.0 Band Neutrophils % (Manual) 0 Lymphocytes % (Manual) 50 10.0-50.0 Monocytes % (Manual) 10 0-12 Eosinophils % (Manual) 3 0-7 Basophils % (Manual) 0 0.0-2.0 Metamyelocytes % (manual) 0 Myelocytes % (Manual) 0 Promyelocytes % (Manual) 0 Blast Cells % (Manual) 0 Reactive Lymphocytes 0 B-Type Natriuretic Peptide 2523.00 0-100 pg/mL Assessment ESRD on HD Acute hypoxic respiratory failure on supplemental oxygen Acute on chronic systolic CHF (EF: 45% 08/25/24) SIRS, r/o sepsis pulmonary congestion Fluid overload chest pain, negative serial troponin Anemia of CKD Leukopenia Pulmonary hypertension COPD Hyperphosphatemia Secondary hyperparathyroidism Plan: HD today . goal 3 L UF broad spectrum IV antibiotics obtain blood cultures Cardiology consult NEVAEH post HD as needed. goal Hb: 10-11 g/dl Plan discussed with: Patient ROSEANN DUBOSE MD Nov 14, 2024 07:08
[2024-11-14] MEDS ORDERED: PIPERACILLIN-TAZOB 2.25GM 50 ML IV SCH (10:00)
[2024-11-14] MEDS: ALLOPURINOL 100 MG TAB PO SCH (10:57)
[2024-11-14] MEDS: FUROSEMIDE 40 MG/4 ML VIAL IV ONE ×2 (10:57→15:44)
[2024-11-14] MEDS: METOPROLOL SUCCINATE XL 50 MG TAB PO SCH (10:59)
[2024-11-14] MEDS: CLOPIDOGREL BISULFATE 75 MG TAB PO SCH (11:00)
[2024-11-14] MEDS: ISOSORBIDE MONONITRATE ER 60 MG TAB PO SCH (11:00)
[2024-11-14] MEDS: SACUBITRIL-VALSARTAN 24mg/26mg TAB PO SCH (11:01)
[2024-11-14 11:51] LABS: Urine Protein, UAD 3+ (Negative)
[2024-11-14] MEDS: SODIUM CHL 0.9% 1000 ML BAG XX ONE (14:49)
[2024-11-14] MEDS: FUROSEMIDE 40 MG/4 ML VIAL IV SCH (17:41)
[2024-11-14 18:32] LABS: Benzodiazephine Screen, Urine Pos (NEGATIVE); Opiate Scree,Urine Neg (NEGATIVE)
[2024-11-14 18:36] LABS: Amphetamine Screen, Urine Neg (NEGATIVE); Barbiturate Scree,Urine Neg (NEGATIVE); Cannabinoid Screen, Urine Neg (NEGATIVE); Cocaine Screen, Urine Neg (NEGATIVE); Phencyclidine Screen, Urine Neg (NEGATIVE)
[2024-11-14] MEDS: BUDESONIDE (INHALATION) 0.5 MG/2 ML NEB NEB SCH (18:52)
--- NOTE | 2024-11-14 19:03 | DVHPNRES ---
Progress Note Date Seen: Nov 14, 2024 Resident Creating Document: CANDICE CHOPRA RESIDENT Medical Necessity Reason Pt with a Central, PICC or Fol: No Subjective Review of Systems This is a 59-year-old male with past medical history of HFrEF 35%, coronary artery disease, recent PCI on 09/21/2023 and 4 stent placed and previously stent placed, type 2 diabetes mellitus, end-stage renal disease (ESRD) requiring dialysis, hypertension, dyslipidemia, COPD on 2 L home oxygen, colonic polyps, and gastroesophageal reflux disease (GERD). Patient came to ER due to shortness of breath and bilateral leg swelling that began for 2 days and getting worse day by day. Patient on hemodialysis and last dialysis was done yesterday. He also stated chest pain and occasional productive cough with white sputum. At home, Mr. Mckee is on 2 liters of supplemental oxygen and relies on a walker for ambulation due to limited mobility. Patient also had complained of left hip pain and CT scan done on 10/18/2024 which shows no fracture. He is not follow-up with government relations manager since PCI done. Past Medical History (PMH): HFrEF, coronary artery disease, diabetes mellitus, end-stage renal disease (ESRD) requiring dialysis, hypertension, dyslipidemia, colonic polyps, and gastroesophageal reflux disease (GERD),COPD Past Surgical History (PSH): Appendectomy, cholecystectomy, surgery for osteomyelitis Family history (FH): Pancreatic cancer in father EtOH: Patient denies alcohol use Smoking /Vapin pack year smoking history Recreational Drugs: Denies recreational drug use Residence: Lives with family Home Medications: Albuterol ipratropium, allopurinol, amlodipine, aspirin, atorvastatin, clopidogrel, furosemide, hydralazine, isosorbide mononitrate, metoprolol, pantoprazole, Entresto Allergies: Penicillin PCP: Dr. Wallace Patient seen and evaluated in bedside. Patient currently on 2 L oxygen. Denies any chest pain, headache, palpitation, abdominal pain now. Objective vital signs Vital Sign Date Time Temp Pulse Resp B/P (MAP) Pulse Ox O2 Delivery O2 Flow Rate FiO2 11/14/24 18:22 98.6 78 148/88 (108) 98 98.6 11/14/24 18:22 18 Nasal Cannula* 2 28 Total Intake and Output 11/13/24 11/13/24 11/14/24 15:00 23:00 07:00 Intake Total 383.334 ml Balance 383.334 ml medications Current Medications Medications Dose Ordered Sig/Gerard Route Start Time Stop Time Status Last Admin Dose Admin Vancomycin HCl 0 ml @ 0 mls/hr UD IV 11/14/24 00:30 Cefepime HCl 50 ml @ 12.5 mls/hr Q24H IV 11/15/24 01:00 Heparin Sodium (Porcine) 5,000 units Q8HR SC 11/14/24 00:45 Allopurinol 100 mg DAILY PO 11/14/24 10:00 11/14/24 10:57 100 MG Aspirin 81 mg DAILY PO 11/14/24 10:00 11/14/24 11:12 81 MG Atorvastatin Calcium 40 mg HS PO 11/14/24 22:00 Clopidogrel Bisulfate 75 mg DAILY PO 11/14/24 10:00 11/14/24 11:00 75 MG Hydralazine HCl 10 mg Q8HR PO 11/14/24 06:00 11/14/24 15:52 10 MG Isosorbide Mononitrate 60 mg DAILY PO 11/14/24 10:00 11/14/24 11:00 60 MG Metoprolol Succinate 25 mg DAILY PO 11/14/24 10:00 11/14/24 10:59 25 MG Pantoprazole Sodium 40 mg DAILY@0600 PO 11/14/24 06:00 11/14/24 06:14 40 MG Sacubitril/ Valsartan 1 tab BID PO 11/14/24 10:00 11/14/24 11:01 1 TAB Diagnostic Test (Pha) 1 strip IQID 11/14/24 07:00 11/14/24 15:02 1 STRIP Insulin Human Regular IQ4HR SC 11/14/24 04:00 11/14/24 15:41 2 UNITS Dextrose 50 ml UD PRN IV 11/14/24 02:00 Albuterol 1.25 mg Q6HR NEB 11/14/24 06:00 11/14/24 18:52 1.25 MG Ipratropium [place] 0.5 mg Q6HWA NEB 11/14/24 06:00 11/14/24 18:52 0.5 MG Furosemide 40 mg BIDD IV 11/14/24 18:00 11/14/24 17:41 40 MG Hydromorphone HCl 2 mg Q6HP PRN PO 11/14/24 16:00 11/14/24 17:25 2 MG Budesonide 0.5 mg BID NEB 11/14/24 22:00 11/14/24 18:52 0.5 MG Sennosides 8.6 mg HS PO 11/14/24 22:00 Examination General Appearance: Alert, Oriented X3, Cooperative, 2 L oxygen via [place] HEENT: Atraumatic, PERRLA, EOMI, Mucous membrane moist/pink Respiratory: Clear to auscultation, Normal air movement Cardiovascular: Regular rate, Normal S1, Normal S2, No murmurs, no chest wall tenderness Abdominal: Normal bowel sounds, Soft, No tenderness, No hepatospenomegaly, No masses Extremities: Bilateral pitting pedal edema Skin: No rashes, No breakdown, left forearm AV fistula Neuro: Normal gait, Normal speech, Strength at 5/5 X4 ext, Normal tone, Sensation intact, Cranial nerves 3-12 NL, Reflexes 2+ Psych/Mental Status: Mental status NL, Mood NL laboratory and microbiology Laboratory Tests 11/14/24 01:50 Test 11/14/24 01:50 Range/Units Serum Glucose 140 H 74-106 mg/dL Microbiology Date/Time Source Procedure Growth Status 11/14/24 01:36 Nose MRSA Screen - Final Complete Problem List/Assessment/Plan Problem List/Assessment/Plan # Severe neutropenia likely viral # Pancytopenia WBC 1.2 Bands 0 Absolute neutrophil count 444 Contact isolation will monitor CBC Currently under empiric IV antibiotic (vancomycin and cefepime) # Acute on chronic systolic/diastolic heart failure (HFmrEF, LVEF 45%) # Coronary artery disease status post PCI placement on 09/21/2023 with 7 stent # Hyperlipidemia # Essential Hypertension -X-ray chest: Central pulmonary vascular congestion. Overall appearance of volume overload -recent echo 08/2024-ejection fraction 45% -BNP 2523 Optimize GDMT medication - Bumex -aspirin 81 mg -clopidogrel 75 mg -atorvastatin 40 mg -chosen 100 mg -Isosorbide mononitrate 60 mg -Metoprolol succinate -Entresto -Monitor input/output -Daily weight monitoring # Acute hypoxic respiratory failure due to sepsis likely pneumonia WBC count 1.2 and repeat WBC 1.5 - IV vancomycin and cefepime - troponin 29 - Follow blood culture, sputum culture - lactic acid level 1 - COVID, influenza -negative - lactic acid level 1 # COPD, acute exacerbation - On 2 L oxygen - Continue albuterol and ipratropium nebulizations # ESRD on hemodialysis, Tue - Neurology consult, [facility] - Next hemodialysis on - Follow Creatinine levels # Elevated d-dimer # Bilateral Lower extremity swelling, rule out DVT - Bilateral lower extremity ultrasound-NEGATIVE FOR ANY DVT - Heparin # Type 2 diabetes mellitus Insulin sliding scale Monitor blood sugars # Mild Hyponatremia - Monitor sodium levels # GERD - Continue Protonix # Pseudoseizures - Continue home medication prn Gout Allopurinol Goals of care discussions. More than 23 minute spent with patient. Case discussed with Dr. Núñez. Plan discussed with: Patient, Spouse, Other (Nurse,) My Orders My Orders Orders - CANDICE CHOPRA RESIDENT Procedure Category Date Status Time Hydromorphone Tablet PHA 11/14/24 In Process (Dilaudid Tablet) 16:00 Budesonide PHA 11/14/24 In Process (Inhalation) 22:00 Senna Pod Tablet PHA 11/14/24 In Process (Senokot Tablet) 22:00 Date of Service: Nov 14, 2024 Billing Provider: ABDULAZIZ NÚÑEZ MD Common Visit Codes: [id number] INP/OBS CARE(HIGH) CANDICE CHOPRA RESIDENT Nov 14, 2024 19:03 ANGEL EMERSON RESIDENT Nov 16, 2024 10:18 ABDULAZIZ NÚÑEZ MD Nov 18, 2024 10:13
[2024-11-14 20:47] LABS: Base Excess 6.0 mmol/L (-2.0-3.0)
[2024-11-14] MEDS: ATORVASTATIN 20 MG TAB PO SCH (21:19)
[2024-11-14] MEDS: SENNA 8.6 MG TAB PO SCH (21:19)
[2024-11-15] VITALS (19 sets, daily range): BP systolic 135–160; BP diastolic 69–96; PULSE 82–100; RESP 16–22; TEMP 97.5–98.2; O2SAT 94–100
[2024-11-15] MEDS: CEFEPIME 1GM/50ML 50 ML IV SCH (04:15)
[2024-11-15 07:16] LABS: Anion Gap 11 (5-15); Potassium 4.4 mmol/L (3.5-5.1); Sodium 138 mmol/L (136-145)
[2024-11-15 07:17] LABS: Calcium 9.4 mg/dL (8.7-10.4)
[2024-11-15 07:22] LABS: BUN/Creatinine Ratio 5.6 (10.0-20.0)
[2024-11-15 07:23] LABS: Magnesium 2.2 mg/dL (1.6-2.6)
[2024-11-15 07:28] LABS: Hemoglobin 9.7 g/dL (13.5-17.5)
[2024-11-15 07:31] LABS: Blood Urea Nitrogen 25 mg/dL (9-23); Carbon Dioxide 32 mmol/L (20-31); Chloride 95 mmol/L (98-107); Glucose 111 mg/dL (74-106)
[2024-11-15 07:32] LABS: Hematocrit 28.8 % (41.0-53.0); Mean Corpuscular Hemoglobin 31.6 pg (28.0-32.0); Mean Corpuscular Volume 93.8 fL (80.0-100.0)
[2024-11-15 11:14] LABS: Total Cells Counted 100.0 (100)
[2024-11-15] MEDS: FILGRASTIM (TBO) 300 MCG/0.5 ML SYRG SC ONE (11:50)
[2024-11-15] MEDS: ACCU-CHEK COMFORT CURVE STRIP VI SCH (11:51)
--- NOTE | 2024-11-15 15:16 | DVHPN2 ---
Progress Note - Dictate Date Seen: Nov 15, 2024 Medical Necessity Reason Pt with a Central, PICC or Fol: No Subjective no new symptoms vital signs Vital Sign Date Time Temp Pulse Resp B/P (MAP) Pulse Ox O2 Delivery O2 Flow Rate FiO2 11/15/24 14:43 143/81 11/15/24 13:00 98.0 86 20 96 98.0 11/15/24 12:15 Nasal Cannula 2.0 11/15/24 12:15 28 Total Intake and Output 11/14/24 11/14/24 11/15/24 15:00 23:00 07:00 Intake Total 360 ml Balance 360 ml medications Current Medications Medications Dose Ordered Sig/Gerard Route Start Time Stop Time Status Last Admin Dose Admin Vancomycin HCl 0 ml @ 0 mls/hr UD IV 11/14/24 00:30 Cefepime HCl 50 ml @ 12.5 mls/hr Q24H IV 11/15/24 01:00 11/15/24 04:15 12.5 MLS/HR Heparin Sodium (Porcine) 5,000 units Q8HR SC 11/14/24 00:45 Allopurinol 100 mg DAILY PO 11/14/24 10:00 11/15/24 10:26 100 MG Aspirin 81 mg DAILY PO 11/14/24 10:00 11/15/24 10:25 81 MG Atorvastatin Calcium 40 mg HS PO 11/14/24 22:00 11/14/24 21:19 40 MG Clopidogrel Bisulfate 75 mg DAILY PO 11/14/24 10:00 11/15/24 10:24 75 MG Isosorbide Mononitrate 60 mg DAILY PO 11/14/24 10:00 11/15/24 10:26 60 MG Metoprolol Succinate 25 mg DAILY PO 11/14/24 10:00 11/15/24 10:25 25 MG Pantoprazole Sodium 40 mg DAILY@0600 PO 11/14/24 06:00 11/15/24 05:21 40 MG Sacubitril/ Valsartan 1 tab BID PO 11/14/24 10:00 11/15/24 10:24 1 TAB Insulin Human Regular IQ4HR SC 11/14/24 04:00 11/15/24 12:30 2 UNITS Dextrose 50 ml UD PRN IV 11/14/24 02:00 Albuterol 1.25 mg Q6HR NEB 11/14/24 06:00 11/15/24 12:15 1.25 MG Ipratropium [place] 0.5 mg Q6HWA NEB 11/14/24 06:00 11/15/24 12:15 0.5 MG Furosemide 40 mg BIDD IV 11/14/24 18:00 11/15/24 05:21 40 MG Hydromorphone HCl 2 mg Q6HP PRN PO 11/14/24 16:00 11/15/24 10:25 2 MG Budesonide 0.5 mg BID NEB 11/14/24 22:00 11/15/24 09:26 0.5 MG Sennosides 8.6 mg HS PO 11/14/24 22:00 Hydralazine HCl 50 mg Q8HR PO 11/15/24 14:00 11/15/24 14:43 50 MG Diagnostic Test (Pha) 1 strip IQ4HR 11/15/24 12:00 11/15/24 11:51 1 STRIP laboratory and microbiology Laboratory Tests 11/15/24 06:42 Test 11/15/24 06:42 Range/Units Serum Glucose 111 H 74-106 mg/dL Assessment/Plan ESRD on HD Acute hypoxic respiratory failure on supplemental oxygen Acute on chronic systolic CHF (EF: 45% 08/25/24) SIRS, r/o sepsis pulmonary congestion Fluid overload chest pain, negative serial troponin Anemia of CKD Leukopenia Pulmonary hypertension COPD Hyperphosphatemia Secondary hyperparathyroidism Plan: s/p HD yesterday Next HD Tomorrow Continue HD on TTS schedule broad spectrum IV antibiotics f/u blood cultures Cardiology consult [facility] post HD as needed. goal Hb: 10-11 g/dl Plan discussed with: Patient ROSEANN DUBOSE MD Nov 15, 2024 15:16
--- NOTE | 2024-11-15 19:11 | DVHPNRES ---
Progress Note Date Seen: Nov 15, 2024 Resident Creating Document: CANDICE CHOPRA RESIDENT Medical Necessity Reason Pt with a Central, PICC or Fol: No Subjective Review of Systems This is a 59-year-old male with past medical history of HFrEF 35%, coronary artery disease, recent PCI on 09/21/2023 and 4 stent placed and previously stent placed, type 2 diabetes mellitus, end-stage renal disease (ESRD) requiring dialysis, hypertension, dyslipidemia, COPD on 2 L home oxygen, colonic polyps, and gastroesophageal reflux disease (GERD). Patient came to ER due to shortness of breath and bilateral leg swelling that began for 2 days and getting worse day by day. Patient on hemodialysis and last dialysis was done yesterday. He also stated chest pain and occasional productive cough with white sputum. At home, Mr. Mckee is on 2 liters of supplemental oxygen and relies on a walker for ambulation due to limited mobility. Patient also had complained of left hip pain and CT scan done on 10/18/2024 which shows no fracture. He is not follow-up with vice president diversity since PCI done. Past Medical History (PMH): HFrEF, coronary artery disease, diabetes mellitus, end-stage renal disease (ESRD) requiring dialysis, hypertension, dyslipidemia, colonic polyps, and gastroesophageal reflux disease (GERD),COPD Past Surgical History (PSH): Appendectomy, cholecystectomy, surgery for osteomyelitis Family history (FH): Pancreatic cancer in father EtOH: Patient denies alcohol use Smoking /Vapin pack year smoking history Recreational Drugs: Denies recreational drug use Residence: Lives with family Home Medications: Albuterol ipratropium, allopurinol, amlodipine, aspirin, atorvastatin, clopidogrel, furosemide, hydralazine, isosorbide mononitrate, metoprolol, pantoprazole, Entresto Allergies: Penicillin PCP: Dr. Wallace Patient seen and evaluated in bedside today. Patient shortness of breaths improving. Currently on 2 L oxygen. Hemodialysis tomorrow. Filgrastim Started today due to neutropenia. ABG order. Objective vital signs Vital Sign Date Time Temp Pulse Resp B/P (MAP) Pulse Ox O2 Delivery O2 Flow Rate FiO2 11/15/24 18:35 85 16 100 11/15/24 18:25 Nasal Cannula 2.0 11/15/24 18:25 28 11/15/24 17:35 135/79 11/15/24 16:41 97.5 97.5 Total Intake and Output 11/14/24 11/14/24 11/15/24 15:00 23:00 07:00 Intake Total 360 ml Balance 360 ml medications Current Medications Medications Dose Ordered Sig/Gerard Route Start Time Stop Time Status Last Admin Dose Admin Vancomycin HCl 0 ml @ 0 mls/hr UD IV 11/14/24 00:30 Cefepime HCl 50 ml @ 12.5 mls/hr Q24H IV 11/15/24 01:00 11/15/24 04:15 12.5 MLS/HR Heparin Sodium (Porcine) 5,000 units Q8HR SC 11/14/24 00:45 Allopurinol 100 mg DAILY PO 11/14/24 10:00 11/15/24 10:26 100 MG Aspirin 81 mg DAILY PO 11/14/24 10:00 11/15/24 10:25 81 MG Atorvastatin Calcium 40 mg HS PO 11/14/24 22:00 11/14/24 21:19 40 MG Clopidogrel Bisulfate 75 mg DAILY PO 11/14/24 10:00 11/15/24 10:24 75 MG Isosorbide Mononitrate 60 mg DAILY PO 11/14/24 10:00 11/15/24 10:26 60 MG Metoprolol Succinate 25 mg DAILY PO 11/14/24 10:00 11/15/24 10:25 25 MG Pantoprazole Sodium 40 mg DAILY@0600 PO 11/14/24 06:00 11/15/24 05:21 40 MG Sacubitril/ Valsartan 1 tab BID PO 11/14/24 10:00 11/15/24 10:24 1 TAB Insulin Human Regular IQ4HR SC 11/14/24 04:00 11/15/24 17:35 2 UNITS Dextrose 50 ml UD PRN IV 11/14/24 02:00 Albuterol 1.25 mg Q6HR [facility] 11/14/24 06:00 11/15/24 18:25 1.25 MG Ipratropium [place] 0.5 mg Q6HWA [facility] 11/14/24 06:00 11/15/24 18:25 0.5 MG Furosemide 40 mg BIDD IV 11/14/24 18:00 11/15/24 17:35 40 MG Hydromorphone HCl 2 mg Q6HP PRN PO 11/14/24 16:00 11/15/24 18:50 2 MG Budesonide 0.5 mg BID NEB 11/14/24 22:00 11/15/24 18:25 0.5 MG Sennosides 8.6 mg HS PO 11/14/24 22:00 Hydralazine HCl 50 mg Q8HR PO 11/15/24 14:00 11/15/24 14:43 50 MG Diagnostic Test (Pha) 1 strip IQ4HR 11/15/24 12:00 11/15/24 17:00 1 STRIP Examination General Appearance: Alert, Oriented X3, Cooperative, 2 L oxygen via [place] HEENT: Atraumatic, PERRLA, EOMI, Mucous membrane moist/pink Respiratory: Bilaterally Crackles on auscultation, Normal air movement Cardiovascular: Regular rate, Normal S1, Normal S2, No murmurs, no chest wall tenderness Abdominal: Normal bowel sounds, Soft, No tenderness, No hepatospenomegaly, No masses Extremities: Bilateral pitting pedal edema Skin: No rashes, No breakdown, left forearm AV fistula Neuro: Normal gait, Normal speech, Strength at 5/5 X4 ext, Normal tone, Sensation intact, Cranial nerves 3-12 NL, Reflexes 2+ Psych/Mental Status: Mental status NL, Mood NL laboratory and microbiology Laboratory Tests 11/15/24 06:42 Test 11/15/24 06:42 Range/Units Serum Glucose 111 H 74-106 mg/dL Microbiology Date/Time Source Procedure Growth Status 11/14/24 11:28 Voided Urine Urine Culture - Preliminary Resulted 11/14/24 01:54 Blood Blood Culture - Preliminary NO GROWTH AFTER 24 HOURS OF INCUBATION. Resulted 11/14/24 01:36 Nose MRSA Screen - Final Complete Problem List/Assessment/Plan Problem List/Assessment/Plan # Severe neutropenia likely viral # Pancytopenia Indicated Filgastrim Contact isolation Monitor CBC Currently under empiric IV antibiotic (vancomycin and cefepime) # Acute on chronic systolic/diastolic heart failure (HFmrEF, LVEF 45%) # Coronary artery disease status post PCI placement on 09/21/2023 with 7 stent # Hyperlipidemia # Essential Hypertension -X-ray chest: Central pulmonary vascular congestion. Overall appearance of volume overload -recent echo 08/2024-ejection fraction 45% -BNP 2523 Optimize GDMT medication - Bumex -aspirin 81 mg -clopidogrel 75 mg -atorvastatin 40 mg -chosen 100 mg -Isosorbide mononitrate 60 mg -Metoprolol succinate -Entresto -Monitor input/output -Daily weight monitoring # Acute hypoxic respiratory failure due to sepsis likely pneumonia WBC count 1.2 and repeat WBC 1.5 - IV vancomycin and cefepime - troponin 29 - Follow blood culture, sputum culture - lactic acid level 1 - COVID, influenza -negative - lactic acid level 1 # COPD, acute exacerbation - On 2 L oxygen - Continue albuterol and ipratropium nebulizations # ESRD on hemodialysis, Tue - Neurology consult, [facility] - Next hemodialysis on - Follow Creatinine levels # Elevated d-dimer # Bilateral Lower extremity swelling, rule out DVT - Bilateral lower extremity ultrasound-NEGATIVE FOR ANY DVT - Heparin # Type 2 diabetes mellitus Insulin sliding scale Monitor blood sugars # Mild Hyponatremia - Monitor sodium levels # GERD - Continue Protonix # Pseudoseizures - Continue home medication prn Gout Allopurinol Goals of care discussions. More than 23 minute spent with patient. Case discussed with Dr. Núñez. Plan discussed with: Patient, Other (Nurse) My Orders My Orders Orders - CANDICE CHOPRA RESIDENT Procedure Category Date Status Time Abg W/ Co-Ox RT 11/14/24 Logged 19:56 Hydralazine Hcl PHA 11/15/24 In Process Tablet (Apresoline 14:00 Glucose Blood PHA 11/15/24 In Process (Accu-Chek Comfort 12:00 Abg W/ Co-Ox RT 11/15/24 Logged 09:54 Date of Service: Nov 15, 2024 Billing Provider: ABDULAZIZ NÚÑEZ MD Common Visit Codes: [id number] INP/OBS CARE(HIGH) CANDICE CHOPRA RESIDENT Nov 15, 2024 19:11 ANGEL EMERSON RESIDENT Nov 16, 2024 10:20 ABDULAZIZ NÚÑEZ MD Nov 18, 2024 10:31
[2024-11-16] VITALS (13 sets, daily range): BP systolic 134–183; BP diastolic 68–93; PULSE 86–96; RESP 15–21; TEMP 97.6–99; O2SAT 96–100
[2024-11-16 05:29] LABS: Hematocrit 32.0 % (41.0-53.0); Hemoglobin 10.6 g/dL (13.5-17.5); Mean Corpuscular Hemoglobin 31.2 pg (28.0-32.0); Mean Corpuscular Volume 94.5 fL (80.0-100.0); Nucleated Red Blood Cells % 0.2 %
[2024-11-16 05:31] LABS: Anion Gap 13 (5-15); Carbon Dioxide 30 mmol/L (20-31); Potassium 4.8 mmol/L (3.5-5.1); Sodium 137 mmol/L (136-145)
[2024-11-16 05:32] LABS: Calcium 9.3 mg/dL (8.7-10.4)
[2024-11-16 05:37] LABS: BUN/Creatinine Ratio 6.8 (10.0-20.0)
[2024-11-16 05:38] LABS: Blood Urea Nitrogen 38 mg/dL (9-23); Chloride 94 mmol/L (98-107); Glucose 148 mg/dL (74-106)
[2024-11-16] MEDS: SODIUM CHL 0.9% 1000 ML BAG XX ONE (07:00)
[2024-11-16 11:09] LABS: Hematocrit 30.4 % (41.0-53.0); Hemoglobin 10.2 g/dL (13.5-17.5); Mean Corpuscular Hemoglobin 31.2 pg (28.0-32.0); Mean Corpuscular Volume 93.1 fL (80.0-100.0); Nucleated Red Blood Cells % 0.1 %
[2024-11-16] MEDS: diazePAM 5 MG TAB PO PRN (12:21)
--- NOTE | 2024-11-16 14:15 | DVHPN2 ---
Progress Note - Dictate Date Seen: Nov 16, 2024 Medical Necessity Reason Pt with a Central, PICC or Fol: No Subjective no new symptoms vital signs Vital Sign Date Time Temp Pulse Resp B/P (MAP) Pulse Ox O2 Delivery O2 Flow Rate FiO2 11/16/24 13:58 174/92 11/16/24 13:57 92 11/16/24 12:47 97.6 20 100 97.6 11/16/24 10:00 Nasal Cannula 3.0 11/16/24 10:00 32 Total Intake and Output 11/15/24 11/15/24 11/16/24 15:00 23:00 07:00 Intake Total 50 ml 600 ml 800 ml Balance 50 ml 600 ml 800 ml medications Current Medications Medications Dose Ordered Sig/Gerard Route Start Time Stop Time Status Last Admin Dose Admin Vancomycin HCl 0 ml @ 0 mls/hr UD IV 11/14/24 00:30 Cefepime HCl 50 ml @ 12.5 mls/hr Q24H IV 11/15/24 01:00 11/16/24 01:00 12.5 MLS/HR Heparin Sodium (Porcine) 5,000 units Q8HR SC 11/14/24 00:45 Allopurinol 100 mg DAILY PO 11/14/24 10:00 11/16/24 13:56 100 MG Aspirin 81 mg DAILY PO 11/14/24 10:00 11/16/24 13:56 81 MG Atorvastatin Calcium 40 mg HS PO 11/14/24 22:00 11/15/24 23:28 40 MG Clopidogrel Bisulfate 75 mg DAILY PO 11/14/24 10:00 11/16/24 13:56 75 MG Isosorbide Mononitrate 60 mg DAILY PO 11/14/24 10:00 11/16/24 13:58 60 MG Metoprolol Succinate 25 mg DAILY PO 11/14/24 10:00 11/16/24 13:57 25 MG Pantoprazole Sodium 40 mg DAILY@0600 PO 11/14/24 06:00 11/16/24 05:22 40 MG Sacubitril/ Valsartan 1 tab BID PO 11/14/24 10:00 11/16/24 13:56 1 TAB Insulin Human Regular IQ4HR SC 11/14/24 04:00 11/16/24 00:23 3 UNITS Dextrose 50 ml UD PRN IV 11/14/24 02:00 Albuterol 1.25 mg Q6HR NEB 11/14/24 06:00 11/16/24 06:22 1.25 MG Ipratropium [place] 0.5 mg Q6HWA NEB 11/14/24 06:00 11/16/24 06:22 0.5 MG Furosemide 40 mg BIDD IV 11/14/24 18:00 11/15/24 17:35 40 MG Hydromorphone HCl 2 mg Q6HP PRN PO 11/14/24 16:00 11/16/24 14:11 2 MG Budesonide 0.5 mg BID NEB 11/14/24 22:00 11/16/24 06:22 0.5 MG Sennosides 8.6 mg HS PO 11/14/24 22:00 Hydralazine HCl 50 mg Q8HR PO 11/15/24 14:00 Hold 11/15/24 23:35 50 MG Diagnostic Test (Pha) 1 strip IQ4HR 11/15/24 12:00 11/16/24 12:00 1 STRIP Hydralazine HCl 10 mg Q8HR PO 11/16/24 14:00 Hold Diazepam 10 mg Q8HP PRN PO 11/16/24 12:00 11/16/24 12:21 10 MG objective Gen: NAD HEENT: NC, AT Cardiac: RRR, no murmur Lungs: crackles lung bases Abd: soft, no tenderness Ext: +2 edema b/l legs laboratory and microbiology Laboratory Tests 11/16/24 10:50 11/16/24 04:49 Test 11/16/24 04:49 Range/Units Serum Glucose 148 H 74-106 mg/dL Assessment/Plan ESRD on HD Acute hypoxic respiratory failure on supplemental oxygen Acute on chronic systolic CHF (EF: 45% 08/25/24) SIRS, r/o sepsis pulmonary congestion Fluid overload chest pain, negative serial troponin Anemia of CKD Leukopenia Pulmonary hypertension COPD Hyperphosphatemia Secondary hyperparathyroidism Plan: scheduled for HD tomorrow. Continue HD on TTS schedule broad spectrum IV antibiotics f/u blood cultures Cardiology consult [facility] post HD as needed. goal Hb: 10-11 g/dl Plan discussed with: Patient ROSEANN DUBOSE MD Nov 16, 2024 14:15
--- NOTE | 2024-11-16 16:47 | DVHDSRES ---
Discharge Summary Date of Admission Resident Creating Document: CANDICE CHOPRA RESIDENT Nov 13, 2024 at 23:32 Date of Discharge: Nov 16, 2024 Labs/Diagnostic Data: Laboratory Results Test 11/16/24 11:34 11/16/24 10:50 11/16/24 04:49 11/15/24 06:42 POC Glucose 126 mg/dl (70-106) White Blood Count 9.0 10^3/uL (4.4-10.8) Red Blood Count 3.26 10^6/uL (4.5-5.90) Hemoglobin 10.2 g/dL (13.5-17.5) Hematocrit 30.4 % (41.0-53.0) Mean Corpuscular Volume 93.1 fL (80.0-100.0) Mean Corpuscular Hemoglobin 31.2 pg (28.0-32.0) Mean Corpuscular Hemoglobin Concent 33.5 g/dL (32.0-36.0) Red Cell Distribution Width 17.2 % (11.8-14.3) Platelet Count 91 10^3/uL (140-450) Mean Platelet Volume 7.7 fL (6.9-10.8) Neutrophils (%) (Auto) 84.5 % (37.0-80.0) Lymphocytes (%) (Auto) 5.7 % (10.0-50.0) Monocytes (%) (Auto) 5.9 % (0.0-12.0) Eosinophils (%) (Auto) 3.1 % (0.0-7.0) Basophils (%) (Auto) 0.8 % (0.0-2.0) Neutrophils # (Auto) 7.6 10 ^3/uL (1.6-8.6) Lymphocytes # (Auto) 0.5 10 ^3/uL (0.4-5.4) Monocytes # (Auto) 0.5 10 ^3/uL (0-1.3) Eosinophils # (Auto) 0.3 10 ^3/uL (0-0.8) Basophils # (Auto) 0.1 10 ^3/uL (0-0.2) Nucleated Red Blood Cells 0.1 % Sodium Level 137 mmol/L (136-145) Potassium Level 4.8 mmol/L (3.5-5.1) Chloride Level 94 mmol/L (98-107) Carbon Dioxide Level 30 mmol/L (20-31) Anion Gap 13 (5-15) Blood Urea Nitrogen 38 mg/dL (9-23) Creatinine 5.60 mg/dL (0.700-1.30) Glomerular Filtration Rate Calc 11 mL/min (>90) BUN/Creatinine Ratio 6.8 (10.0-20.0) Serum Glucose 148 mg/dL (74-106) Calcium Level 9.3 mg/dL (8.7-10.4) Random Vancomycin Level 25.4 ug/mL (5-10) Differential Total Cells Counted 100.0 (100) Neutrophils % (Manual) 44 (37.0-80.0) Band Neutrophils % (Manual) 1 Lymphocytes % (Manual) 27 (10.0-50.0) Monocytes % (Manual) 24 (0-12) Eosinophils % (Manual) 3 (0-7) Basophils % (Manual) 0 (0.0-2.0) Metamyelocytes % (manual) 1 Myelocytes % (Manual) 0 Promyelocytes % (Manual) 0 Blast Cells % (Manual) 0 Reactive Lymphocytes 0 Platelet Estimate Decreased Phosphorus Level 4.2 mg/dL (2.4-5.1) Magnesium Level 2.2 mg/dL (1.6-2.6) Test 11/14/24 20:10 11/14/24 11:28 11/14/24 01:50 11/14/24 01:36 Blood Gas Specimen Type Arterial Blood Gas Sample Site Right brachial Blood Gas Patient Temperature 37.0 Arterial Blood Date Drawn [id number] Arterial Blood pH 7.576 (7.350-7.450) Arterial Blood Partial Pressure CO2 30.5 mmHg (35.0-48.0) Arterial Blood Partial Pressure O2 73.9 mmHg (83.0-108.0) Arterial Blood HCO3 27.7 mmol/L (21.0-28.0) Arterial Blood Oxygen Saturation 95.4 % (94.0-98.0) Arterial Blood Base Excess 6.0 mmol/L (-2.0-3.0) Arterial Blood Oxyhemoglobin 94.4 % (94.0-98.0) Arterial Blood Carboxyhemoglobin 0.8 % (0.5-1.5) Arterial Blood Methemoglobin 0.3 % (0.0-1.5) Benson Test N/a Blood Gas Total Hemoglobin 11.40 g/dL (13.5-17.5) Blood Gas Modality Nasal cannula Blood Gas Spontaneous Rate 22 FiO2 % 28.0 Blood Gas Critical Value Read Back Yes Blood Gas Notified Whom Blood Gas Notified Time [id number] Blood Gas Notified By Urine Color Light-yellow (Yellow) Urine Clarity Clear (Clear) Urine pH 8.5 (5.0-9.0) Urine Specific Miles 1.009 (1.001-1.035) Urine Protein 3+ (Negative) Urine Ketones Negative (Negative) Urine Blood Negative /uL (Negative) Urine Nitrite Negative (Negative) Urine Bilirubin Negative (Negative) Urine Urobilinogen Normal mg/dL (Negative) Urine Leukocyte Esterase Negative /uL (Negative) Urine RBC 1 /hpf (0 - 3) Urine Microscopic WBC < 1 /HPF (0-3) Urine Squamous Epithelial Cells Few /hpf (<5) Urine Bacteria None seen /hpf (None Seen) Urine Glucose 3+ mg/dL (Normal) Urine Opiates Screen Neg (NEGATIVE) Urine Fentanyl Screen Neg (NEGATIVE) Urine Barbiturates Screen Neg (NEGATIVE) Urine Phencyclidine Screen Neg (NEGATIVE) Urine Amphetamines Screen Neg (NEGATIVE) Urine Benzodiazepines Screen Pos (NEGATIVE) Urine Cocaine Screen Neg (NEGATIVE) Urine Cannabinoids Screen Neg (NEGATIVE) Anisocytosis (manual) Slight Prothrombin Time 11.4 sec (9.3-11.8) Prothrombin Time INR 1.08 (0.9-1.15) Activated Partial Thromboplast Time 35.4 SEC (24.5-34.5) D-Dimer, Quantitative 3.24 mg/L FEU (0.0-0.49) Lactic Acid Level 1.0 mmol/L (0.4-2.0) Total Bilirubin 0.4 mg/dL (0.2-1.0) Aspartate Amino Transferase (AST) 15 U/L (13-40) Alanine Aminotransferase (ALT) 14 U/L (7-40) Alkaline Phosphatase 121 U/L (46-116) Total Protein 7.2 g/dL (5.7-8.2) Albumin 4.4 g/dL (3.2-4.8) Influenza Type A Antigen Negative (Negative) Influenza Type B Antigen Negative (Negative) SARS-CoV-2 Antigen (Rapid) Negative (NEGATIVE) Test 11/13/24 19:20 11/13/24 16:40 Troponin I High Sensitivity 29 ng/L (</=54) B-Type Natriuretic Peptide 2523.00 pg/mL (0-100) Other Laboratory Tests 11/16/24 10:50 11/16/24 04:49 Brief Hx & Hospital Course: Mikhail Mckee is a 59-year-old male who presents to the ED with chief complaint of progressive dyspnea which initiated in Functional Class II in progress to functional class IV two days before his admission, associated with bilateral lower limb swelling. Patient's on hemodialysis and last dialysis was done yesterday. He also stated chest pain and occasional productive cough with white sputum. At home, patient is on 2 liters of supplemental oxygen and relies on a walker for ambulation due to limited mobility. Patient also had complained of left hip pain and CT scan done on 10/18/2024 which shows no fracture. He is not follow-up with energy attorney since PCI done. Past Medical History: Hypertension, diabetes, dyslipidemia, dilated ischemic cardiomyopathy, HFrEF (LVEF 35%), coronary artery disease status post PCI with four stents placed on 09/2023, end-stage renal disease (ESRD) requiring dialysis, colonic polyps, and gastroesophageal reflux disease (GERD),COPD on home oxygen with nasal cannula 2 L/min Past Surgical History: Appendectomy, cholecystectomy, surgery for osteomyelitis Family history: Pancreatic cancer in father EtOH: Patient denies alcohol use Smoking /Vapin pack year smoking history Recreational Drugs: Denies recreational drug use Residence: Lives with family Home Medications: Albuterol ipratropium, allopurinol, amlodipine, aspirin, atorvastatin, clopidogrel, furosemide, hydralazine, isosorbide mononitrate, metoprolol, pantoprazole, Entresto Allergies: Penicillin PCP: [facility]. [facility] course: Acute respiratory failure secondary to acute on chronic systolic heart failure due to fluid overload associated with severe neutropenia likely viral, requiring oxygen therapy, IV diuretics, IV antibiotics (cefepime and vancomycin) and Filgastrim COVID and influenza tested become negative. Patient educate and discussed about heart failure management including fluid restriction and compliance with his medication. Continue hemodialysis due to ESRD on Tuesday and Tuesday. Bilateral lower extremity venous ultrasound due to swelling shows no evidence of venous thrombosis. Patient advised to continue his home medication. Patient is hemodynamically stable for discharge. The patient has received maximum benefits from inpatient treatment. Time was given to answer patient/ parents questions and concerns in Layman terms. patient verbalized understanding and agree with treatment and follow-up. Patient was recommended to return to the ED if she experiences any worsening symptoms such as, but not limited to current symptoms. Continue current home medication. follow-up with PCP, discharge Clinic within 2 weeks on Tuesday morning. Follow-up with energy attorney within 2-4 weeks after discharge from hospital. Patient educated and advised to resume home medication. Examination General Appearance: Alert, Oriented X3, Cooperative, 2 L oxygen via NC HEENT: Atraumatic, PERRLA, EOMI, Mucous membrane moist/pink Respiratory: Bilaterally Crackles on auscultation, Normal air movement Cardiovascular: Regular rate, Normal S1, Normal S2, No murmurs, no chest wall tenderness Abdominal: Normal bowel sounds, Soft, No tenderness, No hepatospenomegaly, No masses Extremities: Perimalleolar Bilateral pitting pedal edema Skin: No rashes, No breakdown, left forearm AV fistula Neuro: Normal gait, Normal speech, Strength at 5/5 X4 ext, Normal tone, Sensation intact, Cranial nerves 3-12 NL, Reflexes 2+ Psych/Mental Status: Mental status NL, Mood NL Operations or Procedures ORDERING PHYSICIAN: JESUS FLETCHER MD PROCEDURE(s): CXRP - CHEST PORTABLE REASON: cp sob ORDER NUMBER(s): [id number], ACCESSION NUMBER(s): [id number] EXAM: XY CHEST PORTABLE HISTORY: cp sob TECHNIQUE: 1 view of the chest COMPARISON: CT CHEST WITHOUT CONTRAST on DOS: 10/24/24 FINDINGS/IMPRESSION: LUNGS: No pleural effusion, consolidation, or pneumothorax. Central pulmonary vascular congestion with peripheral interstitial edema. Overall appearance of volume overload MEDIASTINUM: Unremarkable BONES: No acute osseous abnormality OTHER: None ATED BY: MARY EDWARDS MD DICTATED DATE/TIME: 11/13/241921 ORDERING PHYSICIAN: TAMI MELISSA PROCEDURE(s): BLDVT - BiLat Lower DVT REASON: yes ORDER NUMBER(s): [id number], ACCESSION NUMBER(s): [id number] Bilateral lower extremity venous duplex Clinical History: yes Comparison: US BILAT LOWER DVT on DOS: 10/24/24, US US GUIDED VASCULAR ACCESS on DOS: 07/26/24, XY INSERTION OF VENOUS CATH on DOS: 04/23/24 Technique: Duplex Doppler evaluation of the deep venous systems of both lower extremities from the common femoral veins to the popliteal veins including color Doppler and spectral/pulsed waveform analysis was performed. Findings: RIGHT SIDE: The common femoral vein demonstrates appropriate compressibility and waveform variability. There is compressibility/patency of the great saphenous vein at the proximal thigh. The femoral vein demonstrates appropriate compressibility and waveform variability. The deep femoral vein demonstrates appropriate compressibility and waveform variability. The popliteal vein demonstrates appropriate compressibility and waveform variability. There is normal compressibility at the tibioperoneal trunk. LEFT SIDE: The common femoral vein demonstrates appropriate compressibility and waveform variability. There is compressibility/patency of the great saphenous vein at the proximal thigh. The femoral vein demonstrates appropriate compressibility and waveform variability. The deep femoral vein demonstrates appropriate compressibility and waveform variability. The popliteal vein demonstrates appropriate compressibility and waveform variability. There is normal compressibility at the tibioperoneal trunk. Impression: 1. No right or left femoropopliteal venous thrombosis. 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%) Coronary artery disease status post PCI placement on 09/21/2023 with 7 stent Hyperlipidemia Essential Hypertension COPD, acute exacerbation ESRD on hemodialysis, Tue Elevated d-dimer Bilateral Lower extremity swelling, rule out DVT Type 2 diabetes mellitus Mild Hyponatremia GERD Pseudoseizures Gout Discharge Disposition: Home Discharge Instruct/Medications Diet: Consistent carbohydrate Diet comment: Renal diet Activity: No Restrictions, As Tolerated Follow Up/Referral: PCP Cardiology [facility] Clinic within wean week after discharge Nephrology (Hemodialysis Tuesday) Scheduled Allopurinol (Zyloprim Tablet), 1 TAB PO QAM, (Reported) Amlodipine Besylate (Norvasc Tablet), 2 TAB PO DAILY, (Reported) Aspirin (Aspir-81), 1 TAB PO QAM, (Reported) Atorvastatin Calcium (Atorvastatin Calcium), 1 TAB PO DAILY, (Reported) Vimvsfwzam-Plyrzdcydquzau-Etad (Breztri Aerosphere 160-9-4.8 Mcg/Act), 1 AER IN BID, (Reported) Calcium Acetate (Phosphate Bin (Calcium Acetate), 667 MG PO TIDWM, (Reported) Clopidogrel Bisulfate (Clopidogrel), 75 MG PO DAILY Furosemide (Lasix), 40 MG PO DAILY, (Reported) Hydralazine Hcl (Hydralazine Hcl), 1 TAB PO TID, (Reported) Isosorbide Mononitrate (Isosorbide Mononitrate Er), 60 MG PO DAILY, (Reported) Levofloxacin Hemihydrate (Levofloxacin), 1 TAB PO DAILY Losartan Potassium (Cozaar), 300 MG PO DAILY, (Reported) Pantoprazole Sodium Sesquihydr (Protonix), 40 MG PO QAM, (Reported) Patiromer Sorbitex Calcium (Veltassa), 1 PKT PO DAILY, (Reported) Ranolazine (Ranolazine ER), 500 MG PO BID, (Reported) Scheduled PRN Albuterol Sulfate (Ventolin), 2.5 MG NEB Q4HP PRN for SHORTNESS OF BREATH, (Reported) Albuterol Sulfate (Ventolin Mdi), 2 PUFF IN Q6HPRN PRN for wheezing, (Reported) Clonidine Hydrochloride (Clonidine Hcl), 1 TAB PO for SBP>160, (Reported) Colchicine (Mitigare), 0.6 MG PO for for gout, (Reported) Cyclobenzaprine Hcl (Cyclobenzaprine Hcl), 1 TAB PO TID PRN Diazepam (Valium Tablet), 2 TAB PO PRN PRN for onset seizure, (Reported) Gabapentin (Gabapentin), 2 CAP PO TID PRN for onset seizure , (Reported) Hydrocodone-Acetaminophen (Hydrocodone Bitartrate/AC 10-325 mg), 1 TAB PO QID PRN Hydromorphone Hcl (Dilaudid), 1 TAB PO TID PRN Hydromorphone Hcl (Dilaudid), 1 TAB PO TID PRN Ipratropium-Albuterol (Ipratropium [place]/Albut), 1 JACOB IN QIDPRN PRN for SHORTNESS OF BREATH, (Reported) Discharge Statement: "Patient was advised to return to the ER or call 911 if any headaches, dizziness, shortness of breath, chest pain, abdominal pain, bleeding, fevers, or worsening of medical condition. Patient was counseled about treatment plan, medications, possible side effects, patientverbalized understanding. All questions were answered to the best of my ability. This discharge took greater then 30 minutes in planning, reviewing documentation, counseling the patient, and discussing with other team members." ASSESSMENT ASSESSMENT Assessment Acute on chronic systolic heart failure Date of Service: Nov 16, 2024 Billing Provider: ABDULAZIZ BOGGS MD Common Visit Codes: 02837-CXS/OBS DISCH DAY >30min CANDICE CHOPRA RESIDENT Nov 16, 2024 16:47 ANGEL EMERSON RESIDENT Nov 18, 2024 09:41 ABDULAZIZ BOGGS MD Nov 18, 2024 10:47
[2024-11-16] MEDS ORDERED: EPOETIN ALFA-EPBX 4,000 UNIT/ML VIAL SC ONE (21:00)
== END 2024-11-16 18:45 | disposition home or self-care (01) | DRG 871 ==
LOC: ER 16:46 → OVERFLOW 23:32 → CENTRAL 11-14 18:00
PROVIDERS: ADMIT Student in an Organized Health Care Education/Training Program; ATTEND Emergency Medicine
PROC: 5A1D70Z Performance of Urinary Filtration, Intermittent, Less than 6 Hours Per Day (ICD-10-PCS; principal; 2024-11-14)
DX: A41.59 Other Gram-negative sepsis (principal); I50.43 Acute on chronic combined systolic (congestive) and diastolic (congestive) heart failure; J15.69 Pneumonia due to other Gram-negative bacteria; N18.6 End stage renal disease; J96.21 Acute and chronic respiratory failure with hypoxia; J15.9 Unspecified bacterial pneumonia; N25.81 Secondary hyperparathyroidism of renal origin; J44.1 Chronic obstructive pulmonary disease with (acute) exacerbation; I13.2 Hypertensive heart and chronic kidney disease with heart failure and with stage 5 chronic kidney disease, or end stage renal disease; E87.1 Hypo-osmolality and hyponatremia; D61.818 Other pancytopenia; J44.0 Chronic obstructive pulmonary disease with (acute) lower respiratory infection; Z20.822 Contact with and (suspected) exposure to COVID-19; D70.9 Neutropenia, unspecified; I27.20 Pulmonary hypertension, unspecified; E83.39 Other disorders of phosphorus metabolism; D63.1 Anemia in chronic kidney disease; R56.9 Unspecified convulsions; Z99.2 Dependence on renal dialysis; E11.22 Type 2 diabetes mellitus with diabetic chronic kidney disease; E78.5 Hyperlipidemia, unspecified; I25.10 Atherosclerotic heart disease of native coronary artery without angina pectoris; F17.210 Nicotine dependence, cigarettes, uncomplicated; K21.9 Gastro-esophageal reflux disease without esophagitis; M10.9 Gout, unspecified; Z95.5 Presence of coronary angioplasty implant and graft; Z83.3 Family history of diabetes mellitus; Z82.49 Family history of ischemic heart disease and other diseases of the circulatory system; Z80.0 Family history of malignant neoplasm of digestive organs; Z99.81 Dependence on supplemental oxygen; Z90.89 Acquired absence of other organs; Z88.0 Allergy status to penicillin
CPT/HCPCS: 36415; 36600; 71045; 80048; 80053; 80202; 80307; 81001; 82805; 82962; 83605; 83735; 83880; 84100; 84484; 85007; 85025; 85027; 85049; 85379; 85610; 85730; 87040; 87081; 87086; 87088; 87186; 87426; 87804; 90935; 93005; 93970; 94640; 99291; G0378; J1447; J1815

== ENCOUNTER 2024-11-27 11:09 | Inpatient (IN) | payer MEDICARE ==
[~2024-11-27] VITALS: Ht 190.5 cm; Wt 104.2 kg
[2024-11-27] VITALS (8 sets, daily range): BP systolic 169–180; BP diastolic 82–97; PULSE 98–110; RESP 18–24; TEMP 98; O2SAT 99–100
--- NOTE | 2024-11-27 11:21 | ED.PDOC ---
SOB-HPI HPI Comments HPI: 59 y/o M, BIBA, with PMHx of COPD, HLD, CHF, ESRD, NSTEMI, CAD, and seizures presents to the ED for CC of shortness of breath. EMS reports, patient is coming from dialysis clinic where he c/o shortness of breath following being dialyzed x2days. Per EMS, upon arrival to scene patient was found to be stating at 86% of his routine 2Lpm O2. In route to the ED, patient was placed on a non-rebreather at 6Lpm; saturation then improved to 100%. Upon arrival to the ED, patient was found to be tachycardic with a HR of 110bpm and hypertensive with a SBP in the 180's. At this time patient denies cough, nasal congestion, sore-throat, fever, or body-aches. No other symptoms or modifying factors are present at this time. Initial Vitals BP: HR: RR: O2 Sat: Temp: Past Medical history: COPD, HLD, CHF, HTN, ESRD, NSTEMI, CAD, SEIZURES Past Surgical history: STENT X7 Medications: Social History: Denies smoking, ETOH, and drug use. Allergies: NKDA KING: ESRD. SOB HPI: Poor Historian. Past Medical History: Past Surgical History: REVIEW OF SYSTEMS: CONSTITUTIONAL: Denies acute: fever, diaphoresis, chills, HEAD: Denies acute: headache, photophobia Eyes: Denies acute: Double vision, vision loss, eye pain, eye discharge. EARS: Denies acute: tinnitus, hearing loss, ear discharge, ear pain, THROAT: Denies acute: sore throat, swelling, difficulty swallowing , pain with swallowing, change in voice. NECK: Denies acute: neck pain, neck swelling, stiff neck. HEART: Denies acute : chest pain, palpitations, LUNGS: Denies acute: wheezing, cough, hemoptysis ABDOMEN: Denies acute: abdominal pain, Nausea, Vomiting, diarrhea, melena , hematemesis, hematochezia SKIN: Denies acute: rash, redness, lesions, itchiness. EXTREMITIES: Denies acute: calf pain, numbness, tingling, weakness, denies pain in extremity. Denies acute: Low back pain. Neuro: Denies acute: focal neurological deficit, motor or sensory focal neurological deficit, tremors, seizure like activity, confusion, dizziness, change in mental status, loss of bowel or bladder function, cauda equina like symptoms. : Denies acute: dysuria, hematuria, flank pain, increase in urinary frequency. PSYCH: Denies acute: hallucination, suicidal ideation, homicidal ideation. PHYSICAL EXAM: General: ----[id number]----acute distress, awake and alert. Head: normocephalic, atraumatic. Neck: supple, trachea is midline, no swelling. Throat: Normal phonation. Eyes:, no erythema, no purulent discharge, no proptosis, no icterus. Heart: regular rate, regular rhythm, no significant murmur appreciated. Lungs: Mild respiratory distress, Able to speak in full sentences. No wheezing, no rhonchi, no crackles. No stridors. Patient states that he feels better than earlier when the ambulance picked him up. Patient is currently on 6 L supplemental oxygen. Abdomen: non tender to palpation, non distended, soft, no guarding, no rebound, + bowel sounds. Neuro: Awake, Alert, oriented to name, self, situation, follows commands GCS=15. Speech is normal. Skin: no petechia, no purpura, no cyanosis, non-pale, not jaundice. Lower extremities: -- trace bilateral- Pitting edema no deformity, no focal swelling, no calf TTP. Makes eye contact. moves all four extremities. Face: no apparent facial droop. ED COURSE: DISCLAIMER: This medical document was created using an electronic medical record system with voice recognition software and computerized dictation system. Although this document has been carefully reviewed, there might still be some phonetic and typographical errors. Occasional wrong-word or "sound-alike" substitutions may have occurred due to the inherent limitations of voice recognition software. These areas are purely typographical due to imperfections of the software programs and do not reflect any compromise in the patient's medical care. Please read the chart carefully and recognize, using context, where these substitutions have occurred. Time Seen by MD: 11:20 Primary Care Provider: UNKNOWN Reviewed notes: Nurses Notes, [employer] Operator Notes, Medications, Allergies Information Source: Patient, Emergency Med Personnel Mode of Arrival: EMS Severity: Moderate Timing: Days Duration: Since onset Context: At Rest PE Risk Factors: None History of: COPD, CHF Prehospital treatment: None Modifying Factors: Nothing Associated Signs and Symptoms: None Was a procedure done? Was a procedure done?: No Differential Dx Differential Diagnosis: Bronchitis, CHF, COPD, Pneumonia, Pulmonary Embolism, Other (DDx include ACS, unstable angina, anxiety, PE, pneumothroax, neoplasm, cardiac ischemia, COPD, asthma, CHF, pleural effusion, tobacco abuse, pneumonia, hypoxia, hypercapnia, anemia., infection/sepsis., pulmonary edema. Asthma, Cardiac tamponade, infection.) X-Ray, Labs, Meds, VS Vital Signs Date Time Temp Pulse Resp B/P (MAP) Pulse Ox O2 Delivery O2 Flow Rate FiO2 11/27/24 15:00 106 21 175/93 (120) 91 11/27/24 14:22 103 11/27/24 13:00 101 21 175/86 (115) 94 11/27/24 12:26 100 11/27/24 12:06 163/82 11/27/24 12:00 97.7 100 27 163/82 (109) 100 97.7 11/27/24 11:47 98.2 103 24 163/74 99 98.2 11/27/24 11:45 101 24 100 Nasal Cannula* 6 44 11/27/24 11:45 97.9 101 24 167/88 (114) 100 97.9 11/27/24 11:18 102 Lab Test 11/27/24 14:25 11/27/24 13:16 11/27/24 12:46 11/27/24 11:32 Range/Units Phosphorus Level 3.5 2.4-5.1 mg/dL Troponin I High Sensitivity 36 33 36 </=54 ng/L Parathyroid Hormone (Intact) 281.1 H 18.4-80.1 pg/mL Urine Color Light-yellow Yellow Urine Clarity Clear Clear Urine pH 8.5 5.0-9.0 Urine Specific [place] 1.010 1.001-1.035 Urine Protein 3+ H Negative Urine Ketones Negative Negative Urine Blood Trace H Negative /uL Urine Nitrite Negative Negative Urine Bilirubin Negative Negative Urine Urobilinogen Normal Negative mg/dL Urine Leukocyte Esterase Trace Negative /uL Urine RBC 1 0 - 3 /hpf Urine Microscopic WBC 8 H 0-3 /HPF Urine Squamous Epithelial Cells Few <5 /hpf Urine Bacteria None seen None Seen /hpf Urine Glucose 2+ H Normal mg/dL White Blood Count 7.8 4.4-10.8 10^3/uL Red Blood Count 3.22 L 4.5-5.90 10^6/uL Hemoglobin 9.9 L 13.5-17.5 g/dL Hematocrit 30.2 L 41.0-53.0 % Mean Corpuscular Volume 93.7 80.0-100.0 fL Mean Corpuscular Hemoglobin 30.8 28.0-32.0 pg Mean Corpuscular Hemoglobin Concent 32.9 32.0-36.0 g/dL Red Cell Distribution Width 18.9 H 11.8-14.3 % Platelet Count 96 L 140-450 10^3/uL Mean Platelet Volume 7.2 6.9-10.8 fL Neutrophils (%) (Auto) 85.9 H 37.0-80.0 % Lymphocytes (%) (Auto) 4.7 L 10.0-50.0 % Monocytes (%) (Auto) 6.4 0.0-12.0 % Eosinophils (%) (Auto) 2.5 0.0-7.0 % Basophils (%) (Auto) 0.5 0.0-2.0 % Neutrophils # (Auto) 6.7 1.6-8.6 10 ^3/uL Lymphocytes # (Auto) 0.4 0.4-5.4 10 ^3/uL Monocytes # (Auto) 0.5 0-1.3 10 ^3/uL Eosinophils # (Auto) 0.2 0-0.8 10 ^3/uL Basophils # (Auto) 0 0-0.2 10 ^3/uL Nucleated Red Blood Cells 0.0 % Sodium Level 135 L 136-145 mmol/L Potassium Level 4.3 3.5-5.1 mmol/L Chloride Level 91 L 98-107 mmol/L Carbon Dioxide Level 34 H 20-31 mmol/L Anion Gap 10 5-15 Blood Urea Nitrogen 29 H 9-23 mg/dL Creatinine 4.11 H 0.700-1.30 mg/dL Glomerular Filtration Rate Calc 16 >90 mL/min BUN/Creatinine Ratio 7.1 L 10.0-20.0 Serum Glucose 154 H 74-106 mg/dL Lactic Acid Level 1.6 0.4-2.0 mmol/L Calcium Level 9.3 8.7-10.4 mg/dL Total Bilirubin 0.5 0.2-1.0 mg/dL Aspartate Amino Transferase (AST) 16 13-40 U/L Alanine Aminotransferase (ALT) 17 7-40 U/L Alkaline Phosphatase 167 H 46-116 U/L B-Type Natriuretic Peptide 2373.69 0-100 pg/mL Total Protein 6.7 5.7-8.2 g/dL Albumin 4.3 3.2-4.8 g/dL [place] [id number] Ph: [phone] DIAGNOSTIC IMAGING Diagnostic Imaging Report : [id number] Signed PATIENT: CARLOS KING ACCT: [id number] UNIT: [id number] : 1965 LOC: ER ROOM / BED: / AGE / SEX: 59 / M ADM STATUS: REG ER SERVICE 1128 ORDERING PHYSICIAN: JEANNA KENNEDY DO PROCEDURE(s): CXRP - CHEST PORTABLE REASON: sob ORDER NUMBER(s): [id number], ACCESSION NUMBER(s): [id number] EXAM: XY CHEST PORTABLE Indication: sob Technique: Single frontal view of the chest was obtained Comparison: XY CHEST PORTABLE on DOS: 11/13/24, CT CHEST WITHOUT CONTRAST on DOS: 10/24/24, XY CHEST PORTABLE on DOS: 10/23/24, XY CHEST PORTABLE on DOS: 08/24/24, XY CHEST PORTABLE on DOS: 08/14/24 FINDINGS: Lines and Tubes: None Lungs: Diffuse interstitial opacities. Pleura: No effusion. No pneumothorax. Cardiomediastinal contours: Cardiomegaly. Bones: No acute osseous abnormality. IMPRESSION: Diffuse interstitial opacities with cardiomegaly suggestive of pulmonary edema. ATED BY: KRISTY POWELL MD DICTATED DATE/TIME: 11/27/241213 SIGNED BY: KRISTY POWELL MD SIGNED DATE/TIME: 11/27/241213 CC: Time of 1ST Reevaluation: 11:50 Reevaluation 1ST: Unchanged Patient Education/Counseling: Diagnosis, Treatment Family Education/Counseling: No Family Present Comments MDM: patient presented with the above HPI.--acute respiratory failure----workup was initiated. patient was found with the above mentioned diagnosis. the following medications were ordered: please refer to order lists of meds and tests obtained by myself Dr. Kennedy. Patient ED course and VS have been stabilized. Patient has been reassessed in the ED and remained in a stable condition. Pertinent incidental findings were discussed with the patient and/or family. Patient/family voices understanding and is agreeable with plan. Patient has been observed in the ED adequate length of time to insure improvement/stability. Escalation of care considered: Consideration of escalation to observation or admission Patient was given Lasix and DuoNeb treatment and Solu-Medrol. See an order of parathyroid hormone under my name however I did not order this test Patient was ADMITTED to the medicine team for further evaluation and treatment of their presentation. All the reports of any imaging studies that were ordered by myself were reviewed by myself. SEPSIS Sepsis Screen Physician Orders Teleprinter (11/27/24 ) Chest Portable (11/27/24 11:28) Electrocardigram (11/27/24 11:28) Electrocardigram (11/27/24 12:28) Electrocardigram (11/27/24 14:28) Vital Signs Date Time Temp Pulse Resp B/P (MAP) Pulse Ox O2 Delivery O2 Flow Rate FiO2 11/27/24 15:00 106 21 175/93 (120) 91 11/27/24 14:22 103 11/27/24 13:00 101 21 175/86 (115) 94 11/27/24 12:26 100 11/27/24 12:06 163/82 11/27/24 12:00 97.7 100 27 163/82 (109) 100 97.7 11/27/24 11:47 98.2 103 24 163/74 99 98.2 11/27/24 11:45 101 24 100 Nasal Cannula* 6 44 11/27/24 11:45 97.9 101 24 167/88 (114) 100 97.9 11/27/24 11:18 102 Laboratory Tests Test 11/27/24 11:32 Lactic Acid Level 1.6 mmol/L (0.4-2.0) White Blood Count 7.8 10^3/uL (4.4-10.8) Departure 1 Departure Time of Disposition: 13:22 Impression: Primary Impression: Acute exacerbation of CHF (congestive heart failure) Additional Impressions: Dyspnea Hypoxemia Pulmonary edema Disposition: ADMITTED INPATIENT Admit to: Tele Condition: Guarded Discharged With: Self Critical Care Note Critical Care Time?: Yes (1 hr-critical care time only) Heart Score Heart Score: Heart Score Response (Comments) Value History Moderate Suspicious 1 EKG N/A 0 Age 45-64 1 Risk Factors 1 or 2 risk factors 1 Troponin N/A 0 Total 3 I personally scribed for JEANNA KENNEDY DO ([email or web address]) on 11/27/24 at 11:21. Electronically submitted by Billie Castrejon ([email or web address]). I personally scribed for JEANNA KENNEDY DO ([email or web address]) on 11/27/24 at 12:07. Electronically submitted by Billie Castrejon ([email or web address]). I personally scribed for JEANNA KENNEDY DO ([email or web address]) on 11/27/24 at 12:15. Electronically submitted by Billie Castrejon ([email or web address]). I personally scribed for JEANNA KENNEDY DO ([email or web address]) on 11/27/24 at 14:52. Electronically submitted by Billie Castrejon ([email or web address]). JEANNA KENNEDY DO Nov 27, 2024 11:21
--- NOTE | 2024-11-27 11:31 | ECG ---
[facility] Test Date: 2024-11-27 Test Time: 11:18:56 Pat Name: CARLOS KING Department: Room: [address] [place] [address] Gender: M Band Maker: SCOTT : 1965 Requested By: JEANNA KENNEDY Order Number: [id number] Reading MD: Aquiles Hobbs Measurements Intervals [place] Rate: 102 P: 49 [place]: 132 QRS: 96 QRSD: 107 T: -9 QT: 390 QTc: 509 Interpretive Statements Sinus tachycardia Probable left atrial enlargement Right axis deviation Consider anterior infarct Borderline T abnormalities, inferior leads Prolonged QT interval Electronically Signed On 11-27-2024 16:40:07 PDT by Aquiles Hobbs Please click the below link to view image of tracing.
[2024-11-27] MEDS: IPRATROPIUM BROM 0.5 MG/2.5ML INH SOL NEB ONE (12:01)
[2024-11-27] MEDS: ALBUTEROL SULF 2.5 MG/0.5ML(0.5%) NEB SOLN NEB ONE (12:01)
[2024-11-27 12:06] LABS: Hematocrit 30.2 % (41.0-53.0); Hemoglobin 9.9 g/dL (13.5-17.5); Mean Corpuscular Hemoglobin 30.8 pg (28.0-32.0); Mean Corpuscular Volume 93.7 fL (80.0-100.0); Nucleated Red Blood Cells % 0.0 %
[2024-11-27] MEDS: FUROSEMIDE 40 MG/4 ML VIAL IV ONE (12:06)
[2024-11-27] MEDS: methylPREDNISolone SOD SUCC 125 MG/2 ML VL IV ONE (12:06)
--- NOTE | 2024-11-27 12:16 | DVH ---
EXAM: XY CHEST PORTABLE Indication: sob Technique: Single frontal view of the chest was obtained Comparison: XY CHEST PORTABLE on DOS: 11/13/24, CT CHEST WITHOUT CONTRAST on DOS: 10/24/24, XY CHEST POR TABLE on DOS: 10/23/24, XY CHEST PORTABLE on DOS: 08/24/24, XY CHEST PORTABLE on DOS: 08/14/24 FINDINGS: Lines and Tubes: None Lungs: Diffuse interstitial opacities. Pleura: No effusion. No pneumothorax. Cardiomediastinal contours: Cardiomegaly. Bones: No acute osseous abnormality. IMPRESSION: Diffuse interstitial opacities with cardiomegaly suggestive of pulmonary edema.
[2024-11-27 12:18] LABS: Alanine Aminotransferase 17 U/L (7-40); Albumin 4.3 g/dL (3.2-4.8); Anion Gap 10 (5-15); BUN/Creatinine Ratio 7.1 (10.0-20.0); Calcium 9.3 mg/dL (8.7-10.4); Potassium 4.3 mmol/L (3.5-5.1); Total Protein 6.7 g/dL (5.7-8.2)
[2024-11-27 12:19] LABS: Alkaline Phosphatase 167 U/L (46-116); Bilirubin, Total 0.5 mg/dL (0.2-1.0); Blood Urea Nitrogen 29 mg/dL (9-23); Carbon Dioxide 34 mmol/L (20-31); Chloride 91 mmol/L (98-107); Glucose 154 mg/dL (74-106); Sodium 135 mmol/L (136-145)
--- NOTE | 2024-11-27 12:27 | ECG ---
[facility] Test Date: 2024-11-27 Test Time: 12:26:15 Pat Name: CARLOS KING Department: Room: [address] [place] [address] Gender: M Watch Technician: SCOTT : 1965 Requested By: JEANNA KENNEDY Order Number: [id number] Reading MD: Aquiles Hobbs Measurements Intervals [place] Rate: 100 P: 82 [place]: 171 QRS: 75 QRSD: 102 T: 119 QT: 369 QTc: 476 Interpretive Statements Sinus tachycardia Probable left atrial enlargement Nonspecific T abnormalities, lateral leads Borderline prolonged QT interval Electronically Signed On 11-27-2024 16:40:26 PDT by Aquiles Hobbs Please click the below link to view image of tracing.
[2024-11-27 13:51] LABS: Urine Protein, UAD 3+ (Negative)
--- NOTE | 2024-11-27 15:01 | ECG ---
[facility] Test Date: 2024-11-27 Test Time: 14:22:29 Pat Name: CARLOS KING Department: [facility] ED Room: [address] [place] [address] Gender: M Bulkhead Carpenter: mario : 1965 Requested By: JEANNA KENNEDY Order Number: [id number] Reading MD: Aquiles Hobbs Measurements Intervals [place] Rate: 103 P: 86 [place]: 174 QRS: 100 QRSD: 108 T: 102 QT: 361 QTc: 473 Interpretive Statements Sinus tachycardia Probable left atrial enlargement Low voltage, precordial leads Probable right ventricular hypertrophy Nonspecific T abnormalities, lateral leads Baseline wander in lead(s) V1 Electronically Signed On 11-27-2024 16:40:38 PDT by Aquiles Hobbs Please click the below link to view image of tracing.
[2024-11-27] MEDS ORDERED: MORPHINE SULFATE INJ 2 MG/ml SYRG IV PRN (16:00)
[2024-11-27] MEDS ORDERED: NITROGLYCERIN 0.4 MG SL TAB SL PRN (16:00)
[2024-11-27] MEDS: ISOSORBIDE MONONITRATE ER 60 MG TAB PO ONE (16:29)
[2024-11-27] MEDS: FUROSEMIDE 100 MG/10ML VIAL IV SCH (17:57)
[2024-11-27 18:49] LABS: Base Excess 4.1 mmol/L (-2.0-3.0)
--- NOTE | 2024-11-27 19:52 | DVHHPRES ---
History of Present Illness Resident Creating Document: RORY FUNES RESIDENT History of Present Illness Patient is a 59-year-old male with a past medical history of end-stage renal disease on dialysis TTS, heart failure with a reduced ejection fraction with a LVEF 45%, severe pulmonary hypertension presented to the hospital with a chief complaint of worsening shortness of breath. Patient reported that he went to the dialysis center on Tuesday and got out to about 3.75 L of fluid following which wheezing tired, run down on Tuesday and Tuesday. He denied any fever, chills, cough, phlegm, recent sick contacts but was having progressively worsening shortness of breath while being on oxygen at home. reports that she had to put her on 8 L oxygen via mask for a few hours, had difficulty sleeping at night because of the shortness of breath. He underwent dialysis today with removal of about 3.5 L of fluid and while he was going home his breathing worsened following which EMS were called and patient was brought to the hospital for further evaluation. Past medical history: Hypertension, diabetes, dyslipidemia, dilated ischemic cardiomyopathy, HFrEF (LVEF 35%), coronary artery disease status post PCI with four stents placed on 09/2023, end-stage renal disease (ESRD) requiring dialysis, colonic polyps, and gastroesophageal reflux disease (GERD),COPD on home oxygen with nasal cannula 2 L/min Past Surgical History: Appendectomy, cholecystectomy, surgery for osteomyelitis Family history: Pancreatic cancer in father EtOH: Patient denies alcohol use Smoking /Vapin pack year smoking history Recreational Drugs: Denies recreational drug use Residence: Lives with family Home Medications: Albuterol ipratropium, allopurinol, amlodipine, aspirin, atorvastatin, clopidogrel, furosemide, hydralazine, isosorbide mononitrate, metoprolol, pantoprazole, Review of Systems Review of Systems Patient was seen and examined at the bedside. Shortness of breath, difficulty completing sentences with associated accessory muscle use Denied any chest pain, abdominal pain, nausea vomiting or change in bowel movements Allergies: Coded Allergies: Penicillins (Verified Allergy, Unknown, 10/24/24) Medications Current Medications Medications Dose Ordered Sig/Gerard Route Start Time Stop Time Status Last Admin Dose Admin Morphine Sulfate 2 mg Q30M PRN IV 11/27/24 16:00 Nitroglycerin 0.4 mg Q5MINP PRN SL 11/27/24 16:00 Hydralazine HCl 100 mg TID PO 11/27/24 22:00 Isosorbide Mononitrate 60 mg DAILY PO 11/28/24 10:00 Aspirin 81 mg DAILY PO 11/28/24 10:00 Clopidogrel Bisulfate 75 mg DAILY PO 11/28/24 10:00 Ranolazine 500 mg BID PO 11/27/24 22:00 Sevelamer HCl 800 mg TIDWM PO 11/27/24 18:00 Furosemide 80 mg BIDD IV 11/27/24 18:00 11/27/24 17:57 80 MG Pantoprazole Sodium 40 mg DAILY@0600 PO 11/28/24 06:00 Heparin Sodium (Porcine) 5,000 units Q12HR SC 11/27/24 22:00 Atorvastatin Calcium 40 mg HS PO 11/28/24 22:00 Hydromorphone HCl 1 mg Q8HPRN PRN IV 11/27/24 19:00 Carvedilol 12.5 mg Q12HR PO 11/28/24 10:00 Exam Vital Signs Vital Signs Date Time Temp Pulse Resp B/P (MAP) Pulse Ox O2 Delivery O2 Flow Rate FiO2 11/27/24 18:26 Bi-Pap+ 35 35 35 11/27/24 18:12 98.0 109 18 169/82 (111) 100 98.0 Exam Gen - no pallor, no icterus, no cyanosis, bilateral 3+ pitting edema. Skin - Patients skin is warm and dry. HEENT - normocephalic, atraumatic, moist mucous membranes. Neck - full ROM, no LAD, JVD elevated Pulmonary - B/L diffuse rales upto the mid 3rd of the lung lopez. cardiovascular - regular S1,S2 heard. capillary refill normal <2 secs. GI - soft, nontender abdomen. no hepatospleenomegaly. Bowel sounds normoactive Neurological - Patient is A/O X 3 . Bilateral upper extremity strength 5/5, bilateral lower extremity strength 5/5, no facial droop, normal speech, no tremor, no sensory deficiets. Labs/Xrays Labs Test 11/27/24 18:39 11/27/24 14:25 11/27/24 13:16 11/27/24 11:32 Range/Units Blood Gas Specimen Type Arterial Blood Gas Sample Site Right radial Blood Gas Patient Temperature 37.0 Arterial Blood Date Drawn [id number] Arterial Blood pH 7.511 H 7.350-7.450 Arterial Blood Partial Pressure CO2 34.6 L 35.0-48.0 mmHg Arterial Blood Partial Pressure O2 108.1 H 83.0-108.0 mmHg Arterial Blood HCO3 27.1 21.0-28.0 mmol/L Arterial Blood Oxygen Saturation 97.8 94.0-98.0 % Arterial Blood Base Excess 4.1 H -2.0-3.0 mmol/L Arterial Blood Oxyhemoglobin 96.9 94.0-98.0 % Arterial Blood Carboxyhemoglobin 0.5 0.5-1.5 % Arterial Blood Methemoglobin 0.4 0.0-1.5 % Benson Test Yes Blood Gas Total Hemoglobin 10.70 L 13.5-17.5 g/dL Blood Gas Modality Mask - bipap Blood Gas Spontaneous Rate 34 FiO2 % 35.0 Blood Gas EPAP 5 Blood Gas IPAP 12 Phosphorus Level 3.5 2.4-5.1 mg/dL Troponin I High Sensitivity 36 </=54 ng/L Parathyroid Hormone (Intact) 281.1 H 18.4-80.1 pg/mL Urine Color Light-yellow Yellow Urine Clarity Clear Clear Urine pH 8.5 5.0-9.0 Urine Specific Leoti 1.010 1.001-1.035 Urine Protein 3+ H Negative Urine Ketones Negative Negative Urine Blood Trace H Negative /uL Urine Nitrite Negative Negative Urine Bilirubin Negative Negative Urine Urobilinogen Normal Negative mg/dL Urine Leukocyte Esterase Trace Negative /uL Urine RBC 1 0 - 3 /hpf Urine Microscopic WBC 8 H 0-3 /HPF Urine Squamous Epithelial Cells Few <5 /hpf Urine Bacteria None seen None Seen /hpf Urine Glucose 2+ H Normal mg/dL White Blood Count 7.8 4.4-10.8 10^3/uL Red Blood Count 3.22 L 4.5-5.90 10^6/uL Hemoglobin 9.9 L 13.5-17.5 g/dL Hematocrit 30.2 L 41.0-53.0 % Mean Corpuscular Volume 93.7 80.0-100.0 fL Mean Corpuscular Hemoglobin 30.8 28.0-32.0 pg Mean Corpuscular Hemoglobin Concent 32.9 32.0-36.0 g/dL Red Cell Distribution Width 18.9 H 11.8-14.3 % Platelet Count 96 L 140-450 10^3/uL Mean Platelet Volume 7.2 6.9-10.8 fL Neutrophils (%) (Auto) 85.9 H 37.0-80.0 % Lymphocytes (%) (Auto) 4.7 L 10.0-50.0 % Monocytes (%) (Auto) 6.4 0.0-12.0 % Eosinophils (%) (Auto) 2.5 0.0-7.0 % Basophils (%) (Auto) 0.5 0.0-2.0 % Neutrophils # (Auto) 6.7 1.6-8.6 10 ^3/uL Lymphocytes # (Auto) 0.4 0.4-5.4 10 ^3/uL Monocytes # (Auto) 0.5 0-1.3 10 ^3/uL Eosinophils # (Auto) 0.2 0-0.8 10 ^3/uL Basophils # (Auto) 0 0-0.2 10 ^3/uL Nucleated Red Blood Cells 0.0 % Sodium Level 135 L 136-145 mmol/L Potassium Level 4.3 3.5-5.1 mmol/L Chloride Level 91 L 98-107 mmol/L Carbon Dioxide Level 34 H 20-31 mmol/L Anion Gap 10 5-15 Blood Urea Nitrogen 29 H 9-23 mg/dL Creatinine 4.11 H 0.700-1.30 mg/dL Glomerular Filtration Rate Calc 16 >90 mL/min BUN/Creatinine Ratio 7.1 L 10.0-20.0 Serum Glucose 154 H 74-106 mg/dL Lactic Acid Level 1.6 0.4-2.0 mmol/L Calcium Level 9.3 8.7-10.4 mg/dL Total Bilirubin 0.5 0.2-1.0 mg/dL Aspartate Amino Transferase (AST) 16 13-40 U/L Alanine Aminotransferase (ALT) 17 7-40 U/L Alkaline Phosphatase 167 H 46-116 U/L B-Type Natriuretic Peptide 2373.69 0-100 pg/mL Total Protein 6.7 5.7-8.2 g/dL Albumin 4.3 3.2-4.8 g/dL SEPSIS Sepsis Screen Date sepsis recognized/suspect: Nov 27, 2024 Time Sepsis recognized/suspect: 1109 Recent Procedure: No On Antibiotic Therapy: No Respiratory Rate >20: Yes Heart Rate >90: Yes Temp<36 C (96.8 F) or >38.3 C: No SBP <90 or MAP <65 mmHG: No New Acute Mental Status Change: No Is the patient on CPAP, BIPAP,: No Physician Orders Quarry Equipment Operator (11/27/24 ) Chest Portable (11/27/24 11:28) Electrocardigram (11/27/24 11:28) Electrocardigram (11/27/24 12:28) Electrocardigram (11/27/24 14:28) Admit (11/27/24 15:50) Morphine Sulfate Injection (11/27/24 16:00) Oxygen By Nasal Cannula (11/27/24 15:50) Stat Ekg For Chest Pain (11/27/24 15:50) Notify Md Of Changes From Base (11/27/24 15:50) Gallery Manager For 24 Hours (11/27/24 15:50) Emergency Dysrhythmia Protocol (11/27/24 15:50) Rhythm Strips Once Every Shift (11/27/24 15:50) Nitroglycerin Sublingual (Ntrostat Subli (11/27/24 16:00) Abg W/ Co-Ox (11/27/24 15:50) BIPAP (11/27/24 15:50) Hydralazine Hcl Tablet (Apresoline Table (11/27/24 22:00) Isosorbide Mononitrate Tablet (Imdur Er (11/28/24 10:00) Aspirin Tablet (11/28/24 10:00) Clopidogrel Bisulfate (Plavix) (11/28/24 10:00) Ranolazine (Ranexa Er) (11/27/24 22:00) Strict I&O (11/27/24 ) Strict I & O QSHIFT (11/27/24 15:50) Renal Standard(2gna,3gk,Lopho) (11/27/24 Dinner) Sevelamer (Renagel) (11/27/24 18:00) Furosemide Injection (Lasix Injection) (11/27/24 18:00) Covid19 Antigen Kelsie (11/27/24 ) Rapid Influenza A&B (11/27/24 15:50) Mrsa Screen (11/27/24 15:50) Pantoprazole Tablet (Protonix Tablet) (11/28/24 06:00) Heparin Sodium (Porcine) (11/27/24 22:00) Maintain Fluid Restrictions QSHIFT (11/27/24 15:50) *Dr. Rochelle Rutledge (11/27/24 15:50) Complete Blood Count (11/28/24 04:00) Basic Metabolic Panel (11/28/24 04:00) Magnesium (11/28/24 04:00) Atorvastatin (Lipitor) (11/28/24 22:00) Blood Culture (11/27/24 17:17) Hydromorphone Injection (Dilaudid Inject (11/27/24 19:00) Carvedilol Tablet (Coreg Tablet) (11/28/24 10:00) Vital Signs Date Time Temp Pulse Resp B/P (MAP) Pulse Ox O2 Delivery O2 Flow Rate FiO2 11/27/24 18:26 Bi-Pap+ 35 35 35 11/27/24 18:12 98.0 109 18 169/82 (111) 100 98.0 11/27/24 17:57 180/95 11/27/24 16:30 100 30 180/97 (124) 98 11/27/24 16:30 107 180/97 99 Facial BiPAP Mask 35 11/27/24 16:29 180/97 11/27/24 16:28 180/97 11/27/24 15:00 106 21 175/93 (120) 91 11/27/24 14:22 103 11/27/24 13:00 101 21 175/86 (115) 94 11/27/24 12:26 100 11/27/24 12:06 163/82 11/27/24 12:00 97.7 100 27 163/82 (109) 100 97.7 11/27/24 11:47 98.2 103 24 163/74 99 98.2 11/27/24 11:45 101 24 100 Nasal Cannula* 6 44 11/27/24 11:45 97.9 101 24 167/88 (114) 100 97.9 11/27/24 11:18 102 Laboratory Tests Test 11/27/24 11:32 Lactic Acid Level 1.6 mmol/L (0.4-2.0) White Blood Count 7.8 10^3/uL (4.4-10.8) Medications Medications Dose Ordered Sig/Gerard Route Start Time Stop Time Status Last Admin Dose Admin Albuterol 2.5 mg ONCE ONCE NEB 11/27/24 11:30 11/27/24 11:31 DC 11/27/24 12:01 2.5 MG Furosemide 40 mg ONCE ONCE IV 11/27/24 11:30 11/27/24 11:31 DC 11/27/24 12:06 40 MG Furosemide 80 mg BIDD IV 11/27/24 18:00 11/27/24 17:57 80 MG Hydralazine HCl 100 mg ONCE ONCE PO 11/27/24 16:00 11/27/24 16:25 DC 11/27/24 16:28 100 MG Ipratropium Rickman 1 mg ONCE ONCE NEB 11/27/24 11:30 11/27/24 11:31 DC 11/27/24 12:01 1 MG Isosorbide Mononitrate 60 mg ONCE ONCE PO 11/27/24 16:00 11/27/24 16:25 DC 11/27/24 16:29 60 MG Methylprednisolone Sodium Succinate 125 mg ONCE ONCE IV 11/27/24 11:30 11/27/24 11:31 DC 11/27/24 12:06 125 MG Assessment/Plan Assessment/Plan Respiratory Acute hypoxic respiratory failure likely due to pulmonary edema Diffuse pulmonary edema likely due to fluid overload from HFrEF/ESRD COPD, not in exacerbation Severe pulmonary hypertension( last echo revealed RVSP 70 mmHg) Possible pneumonia - chest x-ray shows diffuse bilateral pulmonary edema - on BiPAP - Lasix 80 mg b.i.d. - nephrology consultation for urgent dialysis - duo nebs q.6 hours - on ceftriaxone Cardiovascular Acute on chronic heart failure with a reduced ejection fraction Hypertensive heart disease with a heart failure Uncontrolled hypertension Diffuse pulmonary edema likely due to above History of coronary artery disease status post multiple stents - ECG did not show any acute ST or T-wave changes, some T-wave inversions in lateral leads, Q-wave in III, left atrial enlargement, troponins within normal limits - BNP more than 2000 - on BiPAP - diuretics - hydralazine 100 mg p.o. t.i.d., isosorbide mononitrate 60 mg once daily, c arvedilol 12.5 b.i.d., losartan 100 mg Nephrology End-stage renal disease on dialysis TTS - urgent nephrology consultation for dialysis - monitor electrolytes - sevelamer 800 mg t.i.d. with meals Hematology Anemia of chronic disease likely due to ESRD - recent iron panel revealed pattern of anemia of chronic disease - monitoring PUD prophylaxis: Protonix DVT prophylaxis: Heparin Goals of care discussed with the patient and his over the phone for over 41 minutes. Code status: Full code Plan discussed with Dr. Rush Plan discussed with: Patient, Spouse, Other (YULIYA Summers) My Orders Orders - RORY FUNES RESIDENT Procedure Category Date Status Time Admit ADMIT 11/27/24 Transmitted 15:50 Morphine Sulfate PHA 11/27/24 In Process Injection 16:00 Oxygen By Nasal RT 11/27/24 Transmitted Cannula 15:50 Stat Ekg For Chest SEAN 11/27/24 In Process Pain 15:50 Notify Md Of Changes SEAN 11/27/24 In Process From Base 15:50 Gallery Manager For SEAN 11/27/24 In Process 24 Hours 15:50 Emergency Dysrhythmia [facility] 11/27/24 In Process Protocol 15:50 Rhythm Strips Once [facility] 11/27/24 In Process Every Shift 15:50 Nitroglycerin PHA 11/27/24 In Process Sublingual (Ntrostat 16:00 Abg W/ Co-Ox RT 11/27/24 Logged 15:50 BIPAP RT 11/27/24 Logged 15:50 Hydralazine Hcl PHA 11/27/24 In Process Tablet (Apresoline 22:00 Isosorbide PHA 11/28/24 In Process Mononitrate Tablet 10:00 Aspirin Tablet PHA 11/28/24 In Process 10:00 Clopidogrel Bisulfate PHA 11/28/24 In Process (Plavix) 10:00 Ranolazine (Ranexa Er) PHA 11/27/24 In Process 22:00 Strict I&O ED NURSING 11/27/24 Transmitted Strict I & O SEAN 11/27/24 In Process 15:50 Renal DIET 11/27/24 Transmitted Standard(2gna,3gk,Lopho) Dinner Sevelamer (Renagel) PHA 11/27/24 In Process 18:00 Furosemide Injection PHA 11/27/24 In Process (Lasix Injection) 18:00 Covid19 Antigen Kelsie LAB 11/27/24 Logged Rapid Influenza A&B LAB 11/27/24 Logged 15:50 Mrsa Screen GAETANO 11/27/24 Logged 15:50 Pantoprazole Tablet PHA 11/28/24 In Process (Protonix Tablet) 06:00 Heparin Sodium PHA 11/27/24 In Process (Porcine) 22:00 Maintain Fluid SEAN 11/27/24 In Process Restrictions 15:50 *Dr. Rochelle Finnegan -Da CONS 11/27/24 Transmitted Maty 15:50 Complete Blood Count LAB 11/28/24 Verified 04:00 Basic Metabolic Panel LAB 11/28/24 Verified 04:00 Magnesium LAB 11/28/24 Verified 04:00 Atorvastatin (Lipitor) PHA 11/28/24 In Process 22:00 Blood Culture GAETANO 11/27/24 Logged 17:17 Hydromorphone PHA 11/27/24 In Process Injection (Dilaudid 19:00 Carvedilol Tablet PHA 11/28/24 In Process (Coreg Tablet) 10:00 Date of Service: Nov 27, 2024 Billing Provider: SADAF RUSH MD Common Visit Codes: [id number] INP/OBS CARE (HIGH) Secondary Visit Codes: [id number] CARE PLAN 30 MINUTES RORY FUNES RESIDENT Nov 27, 2024 19:52 SADAF RUSH MD Dec 01, 2024 00:17
[2024-11-27] MEDS: DOXYCYCLINE 100MG/100ML 100 ML IV SCH (20:40)
[2024-11-27] MEDS: HYDROmorphone HCL 2 MG/ML VL/or syr IV PRN (20:40)
[2024-11-27] MEDS: CARVEDILOL 12.5 MG TAB PO ONE (20:41)
[2024-11-27] MEDS: LOSARTAN POTASSIUM 50 MG TAB PO ONE (20:41)
[2024-11-27] MEDS: SEVELAMER 800 MG TAB PO SCH (20:42)
[2024-11-27] MEDS: HEPARIN SODIUM (PORCINE) 5000 UNITS/ML 1ML VIAL SC SCH (21:07)
[2024-11-27] MEDS ORDERED: RANOLAZINE ER 500 MG TAB PO SCH (22:00)
[2024-11-28] VITALS (17 sets, daily range): BP systolic 135–150; BP diastolic 61–86; PULSE 86–101; RESP 17–22; TEMP 97.5–98.8; O2SAT 92–100
[2024-11-28 05:04] LABS: Hematocrit 27.4 % (41.0-53.0); Hemoglobin 9.1 g/dL (13.5-17.5); Mean Corpuscular Hemoglobin 31.4 pg (28.0-32.0); Mean Corpuscular Volume 94.3 fL (80.0-100.0); Nucleated Red Blood Cells % 0.0 %
[2024-11-28 05:16] LABS: Potassium 5.0 mmol/L (3.5-5.1)
[2024-11-28 05:17] LABS: Anion Gap 11 (5-15); Calcium 9.4 mg/dL (8.7-10.4); Carbon Dioxide 30 mmol/L (20-31)
[2024-11-28 05:19] LABS: Chloride 91 mmol/L (98-107); Sodium 132 mmol/L (136-145)
[2024-11-28 05:22] LABS: BUN/Creatinine Ratio 7.0 (10.0-20.0); Blood Urea Nitrogen 37 mg/dL (9-23); Glucose 246 mg/dL (74-106); Magnesium 2.2 mg/dL (1.6-2.6)
[2024-11-28] MEDS: PANTOPRAZOLE 40 MG TAB PO SCH (05:28)
[2024-11-28] MEDS: IPRATROPIUM BROM 0.5 MG/2.5ML INH SOL NEB SCH (07:21)
[2024-11-28] MEDS: LEVALBUTEROL HCL 1.25 MG/3 ML NEB NEB SCH (07:21)
[2024-11-28] MEDS ORDERED: DEXTROSE (50%) 50ML SYRG IV PRN (08:00)
[2024-11-28] MEDS ORDERED: diphenhdrAMINE HCL 50 MG/1 ML VL IV ONE (09:45)
[2024-11-28] MEDS: ISOSORBIDE MONONITRATE ER 60 MG TAB PO SCH (10:00)
[2024-11-28] MEDS: CARVEDILOL 12.5 MG TAB PO SCH (10:00)
[2024-11-28] MEDS: ONDANSETRON HCL 4 MG/2 ML VIAL IM ONE (10:19)
[2024-11-28] MEDS: CLOPIDOGREL BISULFATE 75 MG TAB PO SCH (10:22)
[2024-11-28] MEDS: InsuLIN REG 1unit/0.01ml Soln (100units/ml) SC SCH (12:00)
[2024-11-28] MEDS: ACCU-CHEK COMFORT CURVE STRIP VI SCH (12:00)
--- NOTE | 2024-11-28 17:18 | DVHINCON2 ---
Date of service: Nov 28, [address] Hobbs Reason for Consultation End-stage renal disease management History of Present Illness 59-year-old patient with significant history of end-stage renal disease on hemodialysis TTS with the last dialysis yesterday with 3.5 L UF achieved, systolic heart failure and diastolic heart failure, severe pulmonary hypertension, CAD status post stents, diskitis, hyperlipidemia, diabetes, gastroesophageal reflux disease who chronic hypoxic respiratory failure on 2 L of oxygen usually who presented to the hospital with worsening dyspnea at rest associated with generalized weakness despite going for his dialysis yesterday. Per patient his breathing worsened as he was arriving home and called EMS for further evaluation. Chest x-ray shows pulmonary edema and labs consistent with end-stage renal disease status. His shortness of breath has been associated with orthopnea PND and leg swelling. Past Medical History Past medical history: Hypertension, diabetes, dyslipidemia, dilated ischemic cardiomyopathy, HFrEF (LVEF 35%), coronary artery disease status post PCI with four stents placed on 09/2023, end-stage renal disease (ESRD) requiring dialysis, colonic polyps, and gastroesophageal reflux disease (GERD),COPD on home oxygen with nasal cannula 2 L/min Past Surgical History Past Surgical History: Appendectomy, cholecystectomy, surgery for osteomyelitis Allergies: Coded Allergies: Penicillins (Verified Allergy, Unknown, 10/24/24) Home Meds Active Scripts Hydrocodone-Acetaminophen (Hydrocodone Bitartrate/AC 10-325 mg) 1 Tab Tab, 1 TAB PO QID PRN, #40 TAB Prov:SHARMIN AN MD 10/30/24 Levofloxacin Hemihydrate (LEVOFLOXACIN) 500 Mg Tab, 1 TAB PO DAILY for 4 Days, #4 TAB Prov:LAURE TELLO 10/27/24 Hydromorphone Hcl (Dilaudid) 2 Mg Tab, 1 TAB PO TID PRN, #40 TAB Prov:SHARMIN AN MD 08/16/24 Cyclobenzaprine Hcl (Cyclobenzaprine Hcl) 5 Mg Tab, 1 TAB PO TID PRN, #30 TAB Prov:SHARMIN AN MD 07/30/24 Hydromorphone Hcl (Dilaudid) 2 Mg Tab, 1 TAB PO TID PRN, #40 TAB Prov:SHARMIN AN MD 07/30/24 Clopidogrel Bisulfate (CLOPIDOGREL) 75 Mg Tab, 75 MG PO DAILY for 30 Days, #30 TAB Prov:LEÓN COLLINS MD 08/16/23 Reported Medications Patiromer Sorbitex Calcium (Veltassa) 8.4 Gm Pow, 1 PKT PO DAILY 07/12/24 Colchicine (Mitigare) 0.6 Mg Cap, 0.6 MG PO PRN for for gout, CAP 07/12/24 Albuterol Sulfate (VENTOLIN MDI) 90 Mcg Ih, 2 PUFF IN Q6HPRN PRN for wheezing, INH 07/12/24 Losartan Potassium (Cozaar) 100 Mg Tab, 300 MG PO DAILY, TAB 07/12/24 Ipratropium-Albuterol (Ipratropium [place]/Albut) 1 Jacob Jacob, 1 JACOB IN QIDPRN PRN for SHORTNESS OF BREATH, ML 07/12/24 Clonidine Hydrochloride (Clonidine Hcl) 0.1 Mg Tab, 1 TAB PO PRN for SBP>160 04/17/24 Furosemide (Lasix) 40 Mg Tab, 40 MG PO DAILY, TAB 03/04/24 Amlodipine Besylate (NORVASC TABLET) 5 Mg Tb, 2 TAB PO DAILY, #30 TAB 5 Refills 03/04/24 Isosorbide Mononitrate (Isosorbide Mononitrate Er) 30 Mg Tab, 60 MG PO DAILY for CAD 09/19/23 Calcium Acetate (Phosphate Bin (Calcium Acetate) 667 Mg Cap, 667 MG PO TIDWM for DIALYSIS, MG 09/19/23 Atorvastatin Calcium (ATORVASTATIN CALCIUM) 40 Mg Tab, 1 TAB PO DAILY for HIGH CHOLESTEROL, #30 TAB 5 Refills 09/19/23 Nymtxmchka-Mmydqllpmsiiqk-Utyv (Breztri Aerosphere 160-9-4.8 Mcg/Act) 1 Aer Aer, 1 AER IN BID for COPD, AER 09/19/23 Albuterol Sulfate (Ventolin) 2.5 Mg/3 Ml Nb, 2.5 MG NEB Q4HP PRN for SHORTNESS OF BREATH, INH 09/19/23 Ranolazine (Ranolazine ER) 500 Mg Tab, 500 MG PO BID for CAD, TAB 09/19/23 Diazepam (VALIUM TABLET) 5 Mg Tb, 2 TAB PO PRN PRN for onset seizure, TAB 08/14/23 Hydralazine Hcl (Hydralazine Hcl) 100 Mg Tab, 1 TAB PO TID, #90 TAB 5 Refills 08/14/23 Gabapentin (Gabapentin) 100 Mg Cap, 2 CAP PO TID PRN for onset seizure , #90 CAP 2 Refills Take with diazepam. 08/14/23 Pantoprazole Sodium Sesquihydr (Protonix) 40 Mg Tab, 40 MG PO QAM, #30 TAB 08/14/23 Aspirin (Aspir-81) 81 Mg Tab, 1 TAB PO QAM, #30 TAB 5 Refills 08/14/23 Allopurinol (ZYLOPRIM TABLET) 100 Mg Tb, 1 TAB PO QAM, #30 TAB 5 Refills 08/14/23 Current Medications Current Medications Medications (Trade) Dose Ordered Sig/Gerard Route PRN Reason Start Time Stop Time Status Last Admin Hydralazine HCl (Apresoline Tablet) 100 mg TID PO 11/27/24 22:00 11/28/24 10:22 Isosorbide Mononitrate (Imdur Er Tablet) 60 mg DAILY PO 11/28/24 10:00 Aspirin 81 mg DAILY PO 11/28/24 10:00 11/28/24 10:30 Clopidogrel Bisulfate (Plavix) 75 mg DAILY PO 11/28/24 10:00 11/28/24 10:22 Ranolazine (Ranexa ER) 500 mg BID PO 11/27/24 22:00 11/27/24 19:43 DC Sevelamer HCl (Renagel) 800 mg TIDWM PO 11/27/24 18:00 11/28/24 12:00 Furosemide (Lasix Injection) 80 mg BIDD IV 11/27/24 18:00 11/28/24 05:28 Pantoprazole Sodium (Protonix Tablet) 40 mg DAILY@0600 PO 11/28/24 06:00 11/28/24 05:28 Heparin Sodium (Porcine) 5,000 units Q12HR SC 11/27/24 22:00 11/28/24 10:56 Atorvastatin Calcium (Lipitor) 40 mg HS PO 11/28/24 22:00 Hydromorphone HCl (Dilaudid Injection) 1 mg Q8HPRN PRN IV SEVERE PAIN (7-10 PAIN SCALE) 11/27/24 19:00 11/28/24 08:32 Carvedilol (Coreg Tablet) 12.5 mg Q12HR PO 11/28/24 10:00 Levalbuterol HCl (Xopenex Medneb) 0.625 mg Q6HWA NEB 11/28/24 06:00 11/28/24 11:43 Ipratropium [place] (Atrovent Medneb) 0.5 mg Q6HWA [facility] 11/28/24 06:00 11/28/24 11:43 Ceftriaxone Sodium 50 ml @ 100 mls/hr DAILY@2200 IV 11/28/24 22:00 Doxycycline Hyclate 100 ml @ 50 mls/hr Q12H IV 11/27/24 20:00 11/28/24 08:31 Diagnostic Test (Pha) (Accu-Chek Comfort Curve T) 1 strip Q6HR 11/28/24 12:00 Insulin Human Regular (InsuLIN R) Q6HR SC 11/28/24 12:00 Dextrose 50 ml UD PRN IV Blood Sugar LESS THAN 60 11/28/24 08:00 Ondansetron HCl (Zofran) 4 mg Q8HPRN PRN IV NAUSEA / VOMITING 11/28/24 09:45 Family History: Diabetes mellitus G8 MOTHER, Onset:Unknown G8 FATHER, Onset:Unknown Fibromyalgia G8 MOTHER Hypertension G8 MOTHER G8 FATHER, Onset:Unknown Social History Denies smoking alcohol or drug abuse Review of Systems HEENT: Oral mucosa dry Neck no JVD Cardiovascular: Denies for chest pain denies Positive for orthopnea or PND Respiratory: Positive for shortness of breath Gastrointestinal: Denies for nausea vomiting Musculoskeletal: Positive for leg edema Neurological: Denies focal weakness Dermatological: Denies any rash The rest of the review of systems were reviewed pertinent positives and pertinent negatives are as per HPI up to 12 points review of systems H&P Exam Vital Signs/I&O Vital Sign Date Time Temp Pulse Resp B/P (MAP) Pulse Ox O2 Delivery O2 Flow Rate FiO2 11/28/24 16:54 98.6 96 18 145/82 (103) 93 98.6 11/28/24 08:00 Nasal Cannula* 4 36 Intake and Output 11/27/24 11/28/24 19:00 07:00 Intake Total 100 ml Output Total 325 ml Balance -225 ml Intake Oral 0 ml IV Total 100 ml Output Urine Total 325 ml Physical Exam HEENT: No evidence of JVD, no oral ulcers. Pulmonary: Crackles on auscultation bilaterally Cardiovascular S1-S2, no S3 or S4 Abdomen: Bowel sounds positive, soft no rebound tenderness Skin: No rash Neurological: Alert, oriented, no focal weakness Extremity 1+ edema of the ankles Labs/Diagnostic Data Labs/Diagnostic Data Laboratory Tests Test 11/28/24 04:43 11/27/24 18:39 11/27/24 14:25 11/27/24 13:16 Range/Units White Blood Count 4.8 # 4.4-10.8 10^3/uL Red Blood Count 2.91 L 4.5-5.90 10^6/uL Hemoglobin 9.1 L 13.5-17.5 g/dL Hematocrit 27.4 L 41.0-53.0 % Mean Corpuscular Volume 94.3 80.0-100.0 fL Mean Corpuscular Hemoglobin 31.4 28.0-32.0 pg Mean Corpuscular Hemoglobin Concent 33.3 32.0-36.0 g/dL Red Cell Distribution Width 18.7 H 11.8-14.3 % Platelet Count 87 L 140-450 10^3/uL Mean Platelet Volume 7.5 6.9-10.8 fL Neutrophils (%) (Auto) 85.6 H 37.0-80.0 % Lymphocytes (%) (Auto) 6.6 L 10.0-50.0 % Monocytes (%) (Auto) 7.5 0.0-12.0 % Eosinophils (%) (Auto) 0.0 0.0-7.0 % Basophils (%) (Auto) 0.3 0.0-2.0 % Neutrophils # (Auto) 4.1 1.6-8.6 10 ^3/uL Lymphocytes # (Auto) 0.3 L 0.4-5.4 10 ^3/uL Monocytes # (Auto) 0.4 0-1.3 10 ^3/uL Eosinophils # (Auto) 0 0-0.8 10 ^3/uL Basophils # (Auto) 0 0-0.2 10 ^3/uL Nucleated Red Blood Cells 0.0 % Sodium Level 132 L 136-145 mmol/L Potassium Level 5.0 3.5-5.1 mmol/L Chloride Level 91 L 98-107 mmol/L Carbon Dioxide Level 30 20-31 mmol/L Anion Gap 11 5-15 Blood Urea Nitrogen 37 H 9-23 mg/dL Creatinine 5.31 H 0.700-1.30 mg/dL Glomerular Filtration Rate Calc 12 >90 mL/min BUN/Creatinine Ratio 7.0 L 10.0-20.0 Serum Glucose 246 H 74-106 mg/dL Hemoglobin A1c 5.5 <5.7 % A1C Calcium Level 9.4 8.7-10.4 mg/dL Magnesium Level 2.2 1.6-2.6 mg/dL Blood Gas Specimen Type Arterial Blood Gas Sample Site Right radial Blood Gas Patient Temperature 37.0 Arterial Blood Date Drawn [id number] Arterial Blood pH 7.511 H 7.350-7.450 Arterial Blood Partial Pressure CO2 34.6 L 35.0-48.0 mmHg Arterial Blood Partial Pressure O2 108.1 H 83.0-108.0 mmHg Arterial Blood HCO3 27.1 21.0-28.0 mmol/L Arterial Blood Oxygen Saturation 97.8 94.0-98.0 % Arterial Blood Base Excess 4.1 H -2.0-3.0 mmol/L Arterial Blood Oxyhemoglobin 96.9 94.0-98.0 % Arterial Blood Carboxyhemoglobin 0.5 0.5-1.5 % Arterial Blood Methemoglobin 0.4 0.0-1.5 % Benson Test Yes Blood Gas Total Hemoglobin 10.70 L 13.5-17.5 g/dL Blood Gas Modality Mask - bipap Blood Gas Spontaneous Rate 34 FiO2 % 35.0 Blood Gas EPAP 5 Blood Gas IPAP 12 Phosphorus Level 3.5 2.4-5.1 mg/dL Troponin I High Sensitivity 36 </=54 ng/L Parathyroid Hormone (Intact) 281.1 H 18.4-80.1 pg/mL Urine Color Light-yellow Yellow Urine Clarity Clear Clear Urine pH 8.5 5.0-9.0 Urine Specific [place] 1.010 1.001-1.035 Urine Protein 3+ H Negative Urine Ketones Negative Negative Urine Blood Trace H Negative /uL Urine Nitrite Negative Negative Urine Bilirubin Negative Negative Urine Urobilinogen Normal Negative mg/dL Urine Leukocyte Esterase Trace Negative /uL Urine RBC 1 0 - 3 /hpf Urine Microscopic WBC 8 H 0-3 /HPF Urine Squamous Epithelial Cells Few <5 /hpf Urine Bacteria None seen None Seen /hpf Urine Glucose 2+ H Normal mg/dL Test 11/27/24 12:46 9/23/25 11:32 Range/Units Troponin I High Sensitivity 33 36 </=54 ng/L White Blood Count 7.8 4.4-10.8 10^3/uL Red Blood Count 3.22 L 4.5-5.90 10^6/uL Hemoglobin 9.9 L 13.5-17.5 g/dL Hematocrit 30.2 L 41.0-53.0 % Mean Corpuscular Volume 93.7 80.0-100.0 fL Mean Corpuscular Hemoglobin 30.8 28.0-32.0 pg Mean Corpuscular Hemoglobin Concent 32.9 32.0-36.0 g/dL Red Cell Distribution Width 18.9 H 11.8-14.3 % Platelet Count 96 L 140-450 10^3/uL Mean Platelet Volume 7.2 6.9-10.8 fL Neutrophils (%) (Auto) 85.9 H 37.0-80.0 % Lymphocytes (%) (Auto) 4.7 L 10.0-50.0 % Monocytes (%) (Auto) 6.4 0.0-12.0 % Eosinophils (%) (Auto) 2.5 0.0-7.0 % Basophils (%) (Auto) 0.5 0.0-2.0 % Neutrophils # (Auto) 6.7 1.6-8.6 10 ^3/uL Lymphocytes # (Auto) 0.4 0.4-5.4 10 ^3/uL Monocytes # (Auto) 0.5 0-1.3 10 ^3/uL Eosinophils # (Auto) 0.2 0-0.8 10 ^3/uL Basophils # (Auto) 0 0-0.2 10 ^3/uL Nucleated Red Blood Cells 0.0 % Sodium Level 135 L 136-145 mmol/L Potassium Level 4.3 3.5-5.1 mmol/L Chloride Level 91 L 98-107 mmol/L Carbon Dioxide Level 34 H 20-31 mmol/L Anion Gap 10 5-15 Blood Urea Nitrogen 29 H 9-23 mg/dL Creatinine 4.11 H 0.700-1.30 mg/dL Glomerular Filtration Rate Calc 16 >90 mL/min BUN/Creatinine Ratio 7.1 L 10.0-20.0 Serum Glucose 154 H 74-106 mg/dL Lactic Acid Level 1.6 0.4-2.0 mmol/L Calcium Level 9.3 8.7-10.4 mg/dL Total Bilirubin 0.5 0.2-1.0 mg/dL Aspartate Amino Transferase (AST) 16 13-40 U/L Alanine Aminotransferase (ALT) 17 7-40 U/L Alkaline Phosphatase 167 H 46-116 U/L B-Type Natriuretic Peptide 2373.69 0-100 pg/mL Total Protein 6.7 5.7-8.2 g/dL Albumin 4.3 3.2-4.8 g/dL Chest x-ray shows pulmonary edema Assessment Assessment: 1. End-stage renal disease on hemodialysis TTS 2. Acute hypoxic respiratory failure 3. Hyperkalemia managed with dialysis 4. Volume overload 5. Anemia of end-stage renal disease 6. Diskitis 7. CAD 8. Hypertension Plan and recommendations: Hemodialysis today and Tuesday. Patient refused dialysis last night Fluid restriction less than 1 L per day Continue vancomycin with dialysis for diskitis Kody for goal hemoglobin 10-11 Nutrition consultation CVC and BNP in a.m. Thank you very much for allowing us to participate in the care of the patient Plan discussed with: Patient TOMÁS RODARTE MD Nov 28, 2024 17:18
[2024-11-28] MEDS ORDERED: VANCOMYCIN PER PHARMACY 0 MG IV SCH (17:30)
[2024-11-28] MEDS: ONDANSETRON HCL 4 MG/2 ML VIAL IV PRN (18:16)
--- NOTE | 2024-11-28 19:31 | DVHDSRES ---
Discharge Summary Date of Admission Resident Creating Document: KARSTEN SWANN Nov 27, 2024 at 15:50 Date of Discharge: Nov 28, 2024 Admitting Diagnosis Shortness of breath Labs/Diagnostic Data: Laboratory Results Test 11/28/24 04:43 11/27/24 18:39 11/27/24 14:25 11/27/24 13:16 White Blood Count 4.8 10^3/uL (4.4-10.8) Red Blood Count 2.91 10^6/uL (4.5-5.90) Hemoglobin 9.1 g/dL (13.5-17.5) Hematocrit 27.4 % (41.0-53.0) Mean Corpuscular Volume 94.3 fL (80.0-100.0) Mean Corpuscular Hemoglobin 31.4 pg (28.0-32.0) Mean Corpuscular Hemoglobin Concent 33.3 g/dL (32.0-36.0) Red Cell Distribution Width 18.7 % (11.8-14.3) Platelet Count 87 10^3/uL (140-450) Mean Platelet Volume 7.5 fL (6.9-10.8) Neutrophils (%) (Auto) 85.6 % (37.0-80.0) Lymphocytes (%) (Auto) 6.6 % (10.0-50.0) Monocytes (%) (Auto) 7.5 % (0.0-12.0) Eosinophils (%) (Auto) 0.0 % (0.0-7.0) Basophils (%) (Auto) 0.3 % (0.0-2.0) Neutrophils # (Auto) 4.1 10 ^3/uL (1.6-8.6) Lymphocytes # (Auto) 0.3 10 ^3/uL (0.4-5.4) Monocytes # (Auto) 0.4 10 ^3/uL (0-1.3) Eosinophils # (Auto) 0 10 ^3/uL (0-0.8) Basophils # (Auto) 0 10 ^3/uL (0-0.2) Nucleated Red Blood Cells 0.0 % Sodium Level 132 mmol/L (136-145) Potassium Level 5.0 mmol/L (3.5-5.1) Chloride Level 91 mmol/L (98-107) Carbon Dioxide Level 30 mmol/L (20-31) Anion Gap 11 (5-15) Blood Urea Nitrogen 37 mg/dL (9-23) Creatinine 5.31 mg/dL (0.700-1.30) Glomerular Filtration Rate Calc 12 mL/min (>90) BUN/Creatinine Ratio 7.0 (10.0-20.0) Serum Glucose 246 mg/dL (74-106) Hemoglobin A1c 5.5 % A1C (<5.7) Calcium Level 9.4 mg/dL (8.7-10.4) Magnesium Level 2.2 mg/dL (1.6-2.6) Blood Gas Specimen Type Arterial Blood Gas Sample Site Right radial Blood Gas Patient Temperature 37.0 Arterial Blood Date Drawn [id number] Arterial Blood pH 7.511 (7.350-7.450) Arterial Blood Partial Pressure CO2 34.6 mmHg (35.0-48.0) Arterial Blood Partial Pressure O2 108.1 mmHg (83.0-108.0) Arterial Blood HCO3 27.1 mmol/L (21.0-28.0) Arterial Blood Oxygen Saturation 97.8 % (94.0-98.0) Arterial Blood Base Excess 4.1 mmol/L (-2.0-3.0) Arterial Blood Oxyhemoglobin 96.9 % (94.0-98.0) Arterial Blood Carboxyhemoglobin 0.5 % (0.5-1.5) Arterial Blood Methemoglobin 0.4 % (0.0-1.5) Benson Test Yes Blood Gas Total Hemoglobin 10.70 g/dL (13.5-17.5) Blood Gas Modality Mask - bipap Blood Gas Spontaneous Rate 34 FiO2 % 35.0 Blood Gas EPAP 5 Blood Gas IPAP 12 Phosphorus Level 3.5 mg/dL (2.4-5.1) Troponin I High Sensitivity 36 ng/L (</=54) Parathyroid Hormone (Intact) 281.1 pg/mL (18.4-80.1) Urine Color Light-yellow (Yellow) Urine Clarity Clear (Clear) Urine pH 8.5 (5.0-9.0) Urine Specific [place] 1.010 (1.001-1.035) Urine Protein 3+ (Negative) Urine Ketones Negative (Negative) Urine Blood Trace /uL (Negative) Urine Nitrite Negative (Negative) Urine Bilirubin Negative (Negative) Urine Urobilinogen Normal mg/dL (Negative) Urine Leukocyte Esterase Trace /uL (Negative) Urine RBC 1 /hpf (0 - 3) Urine Microscopic WBC 8 /HPF (0-3) Urine Squamous Epithelial Cells Few /hpf (<5) Urine Bacteria None seen /hpf (None Seen) Urine Glucose 2+ mg/dL (Normal) Test 11/27/24 11:32 Lactic Acid Level 1.6 mmol/L (0.4-2.0) Total Bilirubin 0.5 mg/dL (0.2-1.0) Aspartate Amino Transferase (AST) 16 U/L (13-40) Alanine Aminotransferase (ALT) 17 U/L (7-40) Alkaline Phosphatase 167 U/L (46-116) B-Type Natriuretic Peptide 2373.69 pg/mL (0-100) Total Protein 6.7 g/dL (5.7-8.2) Albumin 4.3 g/dL (3.2-4.8) Other Laboratory Tests 11/28/24 04:43 Brief Hx & Hospital Course: Patient is a 59-year-old male with past medical history of end-stage renal disease on dialysis TTS, heart failure with reduced ejection fraction with a LVEF 45%, severe pulmonary hypertension presented to the hospital with a chief complaint of worsening shortness of breath. Patient reported that he went to the dialysis center on Tuesday and got out to about 3.75 L fluid following which wheezing began, run down on Tuesday and Tuesday. He denied any fever, chills, cough, phlegm, or recent sick contacts but was having progressively worsening shortness of breath while being on oxygen at home. reports that she had to put him on 8 L oxygen via mask were few hours, and difficulty sleeping at night because of the shortness of breath. He underwent dialysis today with removal of 2.5 L of fluid and while he was going home his breathing worsened following which EMS was called and patient was brought to the hospital for further evaluation. Past medical history: Hypertension, diabetes type 2, dyslipidemia, dilated ischemic cardiomyopathy, HFrEF ejection fraction 35%, coronary artery disease status post PCI with 4 stents placed on 09/2023, end-stage renal disease requiring dialysis, colonic polyps, GERD, COPD on home oxygen with nasal cannula 2 L/ minute Past surgical history: Appendectomy, cholecystectomy, surgery for osteomyelitis Family history: Pancreatic cancer in father EtOH: Patient denies alcohol use Smoking/ vapin pack-year smoking history We occasional drugs: Denies week additional drug use Residents: Lives with family Home medications: Albuterol ipratropium, allopurinol, amlodipine, aspirin, atorvastatin, clopidogrel, furosemide, hydralazine, isosorbide mononitrate, metoprolol, pantoprazole Brief history of hospitalization- Patient came in with shortness of breath and we did a chest x-ray which showed diffuse bilateral pulmonary edema. patient had stage renal disease so the diffuse pulmonary edema was likely due to fluid overload from HFrEF or ESRD. We gave her Lasix 80 mg b.i.d. and nephrology consultation was done for urgent dialysis. We also gave her Duo Nebs q.6 hours and IV antibiotics ceftriaxone. For acute on chronic heart failure with reduced ejection fraction and uncontrolled hypertension, ECG was done which did not show any acute ST or T- wave changes, some T-wave inversions in lateral leads, Q-wave in lead 3, left atrial enlargement, troponins were within normal limits. BNP was more than 2000. Diuretics was held,we continued hydralazine 100 mg p.o. t.i.d., isosorbide mononitrate 60 mg once daily, carvedilol 12.5 mg b.i.d. and losartan 100 mg. We continued monitoring her blood pressure. For end-stage renal disease dialysis was done which help the patient feel better and sevelamer 800 mg t.i.d. was given with meals as well. During hospitalization we gave the patient GI prophylaxis with Protonix and DVT prophylaxis with heparin. Patient now is feeling much better and the shortness of breath has resolved. She is stable for discharge. Continuation of all medications and dialysis has been counseled to the patient extensively and patient has been communicated understanding and agreed to the discharge plan. Operations or Procedures EXAM: XY CHEST PORTABLE Indication: sob IMPRESSION: Diffuse interstitial opacities with cardiomegaly suggestive of pulmonary edema. Condition at Discharge: Stable Final Diagnosis/Problems List Acute hypoxic respiratory failure likely due to pulmonary edema Diffuse pulmonary edema likely due to fluid overload from HFrEF / ESRD COPD not in exacerbation Severe pulmonary hypertension possible pneumonia Acute on chronic heart failure with reduced ejection fraction, ejection fraction 35% Hypertensive heart disease with heart failure Uncontrolled hypertension History of coronary artery disease status post multiple stents End-stage renal disease on dialysis TTS Anemia of chronic disease likely due to ESRD Discharge Disposition: Home Discharge Instruct/Medications Scheduled Allopurinol (Zyloprim Tablet), 1 TAB PO QAM, (Reported) Amlodipine Besylate (Norvasc Tablet), 2 TAB PO DAILY, (Reported) Aspirin (Aspir-81), 1 TAB PO QAM, (Reported) Atorvastatin Calcium (Atorvastatin Calcium), 1 TAB PO DAILY, (Reported) Qxvbbzwzxp-Eijxdvmjvwblfh-Iblh (Breztri Aerosphere 160-9-4.8 Mcg/Act), 1 AER IN BID, (Reported) Calcium Acetate (Phosphate Bin (Calcium Acetate), 667 MG PO TIDWM, (Reported) Clopidogrel Bisulfate (Clopidogrel), 75 MG PO DAILY Furosemide (Lasix), 40 MG PO DAILY, (Reported) Hydralazine Hcl (Hydralazine Hcl), 1 TAB PO TID, (Reported) Isosorbide Mononitrate (Isosorbide Mononitrate Er), 60 MG PO DAILY, (Reported) Levofloxacin Hemihydrate (Levofloxacin), 1 TAB PO DAILY Losartan Potassium (Cozaar), 300 MG PO DAILY, (Reported) Pantoprazole Sodium Sesquihydr (Protonix), 40 MG PO QAM, (Reported) Patiromer Sorbitex Calcium (Veltassa), 1 PKT PO DAILY, (Reported) Ranolazine (Ranolazine ER), 500 MG PO BID, (Reported) Scheduled PRN Albuterol Sulfate (Ventolin), 2.5 MG NEB Q4HP PRN for SHORTNESS OF BREATH, (Reported) Albuterol Sulfate (Ventolin Mdi), 2 PUFF IN Q6HPRN PRN for wheezing, (Reported) Clonidine Hydrochloride (Clonidine Hcl), 1 TAB PO for SBP>160, (Reported) Colchicine (Mitigare), 0.6 MG PO for for gout, (Reported) Cyclobenzaprine Hcl (Cyclobenzaprine Hcl), 1 TAB PO TID PRN Diazepam (Valium Tablet), 2 TAB PO PRN PRN for onset seizure, (Reported) Gabapentin (Gabapentin), 2 CAP PO TID PRN for onset seizure , (Reported) Hydrocodone-Acetaminophen (Hydrocodone Bitartrate/AC 10-325 mg), 1 TAB PO QID PRN Hydromorphone Hcl (Dilaudid), 1 TAB PO TID PRN Hydromorphone Hcl (Dilaudid), 1 TAB PO TID PRN Ipratropium-Albuterol (Ipratropium [place]/Albut), 1 JCAOB IN QIDPRN PRN for SHORTNESS OF BREATH, (Reported) Discharge Statement: "Patient was advised to return to the ER or call 911 if any headaches, dizziness, shortness of breath, chest pain, abdominal pain, bleeding, fevers, or worsening of medical condition. Patient was counseled about treatment plan, medications, possible side effects, patientverbalized understanding. All questions were answered to the best of my ability. This discharge took greater then 30 minutes in planning, reviewing documentation, counseling the patient, and discussing with other team members." ASSESSMENT ASSESSMENT Assessment Date of Service: Nov 28, 2024 Billing Provider: SADAF SANTANA MD Common Visit Codes: 99656-MRR/OBS DISCH DAY >30min KARSTEN SWANN Nov 28, 2024 19:31 SADAF SANTANA MD Dec 01, 2024 00:17
[2024-11-28] MEDS: VANCOMYCIN 1.5GM/250ML 250 ML IV ONE (20:57)
[2024-11-28] MEDS: ATORVASTATIN 20 MG TAB PO SCH (21:05)
== END 2024-11-28 23:04 | disposition home or self-care (01) | DRG 177 ==
LOC: EDBD 11:09 → ER 11:09 → OVERFLOW 15:50 → TELE-EAST 18:14
PROVIDERS: ADMIT Internal Medicine Geriatric Medicine; ATTEND Internal Medicine Geriatric Medicine
PROC: 5A09357 Assistance with Respiratory Ventilation, Less than 24 Consecutive Hours, Continuous Positive Airway Pressure (ICD-10-PCS; principal; 2024-11-27)
PROC: 5A09357 Assistance with Respiratory Ventilation, Less than 24 Consecutive Hours, Continuous Positive Airway Pressure (ICD-10-PCS; 2024-11-28)
PROC: 5A1D70Z Performance of Urinary Filtration, Intermittent, Less than 6 Hours Per Day (ICD-10-PCS; 2024-11-28)
DX: J15.69 Pneumonia due to other Gram-negative bacteria (principal); I50.23 Acute on chronic systolic (congestive) heart failure; N18.6 End stage renal disease; J96.21 Acute and chronic respiratory failure with hypoxia; I13.2 Hypertensive heart and chronic kidney disease with heart failure and with stage 5 chronic kidney disease, or end stage renal disease; J15.9 Unspecified bacterial pneumonia; J44.9 Chronic obstructive pulmonary disease, unspecified; I27.20 Pulmonary hypertension, unspecified; D63.1 Anemia in chronic kidney disease; E78.5 Hyperlipidemia, unspecified; K21.9 Gastro-esophageal reflux disease without esophagitis; I25.10 Atherosclerotic heart disease of native coronary artery without angina pectoris; E87.5 Hyperkalemia; M46.49 Discitis, unspecified, multiple sites in spine; E11.22 Type 2 diabetes mellitus with diabetic chronic kidney disease; I25.2 Old myocardial infarction; Z90.49 Acquired absence of other specified parts of digestive tract; Z88.0 Allergy status to penicillin; Z80.0 Family history of malignant neoplasm of digestive organs; Z86.0100 Personal history of colon polyps, unspecified; Z83.3 Family history of diabetes mellitus; Z82.49 Family history of ischemic heart disease and other diseases of the circulatory system; Z95.5 Presence of coronary angioplasty implant and graft; Z99.2 Dependence on renal dialysis; Z99.81 Dependence on supplemental oxygen
CPT/HCPCS: 36415; 36600; 71045; 80048; 80053; 81001; 82805; 83036; 83605; 83735; 83880; 83970; 84100; 84484; 85025; 87040; 90935; 93005; 94640; 94660; 96374; 96375; G0378; J1815; J2405

== ENCOUNTER 2024-12-03 23:09 | Emergency (ER) | payer MEDICARE, OTHER ==
[~2024-12-03] VITALS: Ht 188 cm; Wt 97.0 kg
[2024-12-03 23:10] VITALS: BP 173/95; RESP 20; TEMP 98; O2SAT 100
[2024-12-03 23:21] VITALS: PULSE 97
--- NOTE | 2024-12-03 23:39 | ED.PDOC ---
History of Present Illness HPI Comments 59-year-old male who came to ER for shortness a breath. Patient has history of hypertension, diabetes, COPD, CHF, end-stage renal disease on dialysis every Tuesday. Has been short of breath for the past week progressively worsening, associated chest discomfort worsening by pedal edema. Chief Complaint: Shortness of Breath Time Seen by MD: 23:39 Primary Care Provider: UNKNOWN Reviewed Notes: Nurses Notes Home Meds Active Scripts Hydrocodone-Acetaminophen (Hydrocodone Bitartrate/AC 10-325 mg) 1 Tab Tab, 1 TAB PO QID PRN, #40 TAB Prov:SHARMIN AN MD 10/30/24 Levofloxacin Hemihydrate (LEVOFLOXACIN) 500 Mg Tab, 1 TAB PO DAILY for 4 Days, #4 TAB Prov:LAURE TELLO 10/27/24 Hydromorphone Hcl (Dilaudid) 2 Mg Tab, 1 TAB PO TID PRN, #40 TAB Prov:SHARMIN AN MD 08/16/24 Cyclobenzaprine Hcl (Cyclobenzaprine Hcl) 5 Mg Tab, 1 TAB PO TID PRN, #30 TAB Prov:SHARMIN AN MD 07/30/24 Hydromorphone Hcl (Dilaudid) 2 Mg Tab, 1 TAB PO TID PRN, #40 TAB Prov:SHARMIN AN MD 07/30/24 Clopidogrel Bisulfate (CLOPIDOGREL) 75 Mg Tab, 75 MG PO DAILY for 30 Days, #30 TAB Prov:LEÓN COLLINS MD 08/16/23 Reported Medications Patiromer Sorbitex Calcium (Veltassa) 8.4 Gm Pow, 1 PKT PO DAILY 07/12/24 Colchicine (Mitigare) 0.6 Mg Cap, 0.6 MG PO PRN for for gout, CAP 07/12/24 Albuterol Sulfate (VENTOLIN MDI) 90 Mcg Ih, 2 PUFF IN Q6HPRN PRN for wheezing, INH 07/12/24 Losartan Potassium (Cozaar) 100 Mg Tab, 300 MG PO DAILY, TAB 07/12/24 Ipratropium-Albuterol (Ipratropium [place]/Albut) 1 Jacob Jacob, 1 JACOB IN QIDPRN PRN for SHORTNESS OF BREATH, ML 07/12/24 Clonidine Hydrochloride (Clonidine Hcl) 0.1 Mg Tab, 1 TAB PO PRN for SBP>160 04/17/24 Furosemide (Lasix) 40 Mg Tab, 40 MG PO DAILY, TAB 03/04/24 Amlodipine Besylate (NORVASC TABLET) 5 Mg Tb, 2 TAB PO DAILY, #30 TAB 5 Refills 03/04/24 Isosorbide Mononitrate (Isosorbide Mononitrate Er) 30 Mg Tab, 60 MG PO DAILY for CAD 09/19/23 Calcium Acetate (Phosphate Bin (Calcium Acetate) 667 Mg Cap, 667 MG PO TIDWM for DIALYSIS, MG 09/19/23 Atorvastatin Calcium (ATORVASTATIN CALCIUM) 40 Mg Tab, 1 TAB PO DAILY for HIGH CHOLESTEROL, #30 TAB 5 Refills 09/19/23 Pjvvygpxmo-Gbnhodjwjeeqni-Ezwm (Breztri Aerosphere 160-9-4.8 Mcg/Act) 1 Aer Aer, 1 AER IN BID for COPD, AER 09/19/23 Albuterol Sulfate (Ventolin) 2.5 Mg/3 Ml Nb, 2.5 MG NEB Q4HP PRN for SHORTNESS OF BREATH, INH 09/19/23 Ranolazine (Ranolazine ER) 500 Mg Tab, 500 MG PO BID for CAD, TAB 09/19/23 Diazepam (VALIUM TABLET) 5 Mg Tb, 2 TAB PO PRN PRN for onset seizure, TAB 08/14/23 Hydralazine Hcl (Hydralazine Hcl) 100 Mg Tab, 1 TAB PO TID, #90 TAB 5 Refills 08/14/23 Gabapentin (Gabapentin) 100 Mg Cap, 2 CAP PO TID PRN for onset seizure , #90 CAP 2 Refills Take with diazepam. 08/14/23 Pantoprazole Sodium Sesquihydr (Protonix) 40 Mg Tab, 40 MG PO QAM, #30 TAB 08/14/23 Aspirin (Aspir-81) 81 Mg Tab, 1 TAB PO QAM, #30 TAB 5 Refills 08/14/23 Allopurinol (ZYLOPRIM TABLET) 100 Mg Tb, 1 TAB PO QAM, #30 TAB 5 Refills 08/14/23 Information Source: Patient Mode of Arrival: Ambulatory Severity: Moderate Timing: Days Duration: Since onset Past Medical History PAST MEDICAL HISTORY: CAD, CHF, COPD, DM, ESRD, HTN Surgical History: Appendectomy, Cholecystectomy, PTCA Surgical History (Other): Dialysis Tuesday Family History Family History: Reviewed,noncontributory to illness, No family hx of Cancer, No family hx of DM, No family hx of Heart [place], No family hx of HTN, No family hx ofKidney [place], No family hx of Liver [place], No family hx of Lung [place], No family hx of Stroke Social History Smoker: Cigarettes Alcohol: Denies ETOH Use Drugs: Denies Drug Use Lives In: Home Constitutional: denies: chills, diaphoresis, fatigue, fever, malaise, sweats, weakness, others EENTM: denies: blurred vision, double vision, ear bleeding, ear discharge, ear drainage, ear pain, ear ringing, eye pain, eye redness, hearing loss, mouth pain, mouth swelling, nasal discharge, nose bleeding, nose congestion, nose pain, photophobia, tearing, throat pain, throat swelling, voice changes, others Respiratory: reports: SOB at rest, shortness of breath, SOB with excertion; denies: cough, hemoptysis, orthopnea, stridor, wheezing, others Cardiovascular: reports: chest pain, edema; denies: dizzy spells, diaphoresis, Dyspnea on exertion, irregular heart beat, left arm pain, lightheadedness, palpitations, PND, syncope, others Gastrointestinal: denies: abdomen distended, abdominal pain, blood streaked bowels, constipated, diarrhea, dysphagia, difficulty swallowing, hematemesis, melena, nausea, poor appetite, poor fluid intake, rectal bleeding, rectal pain, vomiting, others Genitourinary: denies: burning, dysuria, flank pain, frequency, hematuria, incontinence, penile discharge, penile sore, pain, testicle pain, testicle swelling, urgency, others Neurological: denies: dizziness, fainting, headache, left sided numbness, left sided weakness, numbness, paresthesia, pre-existing deficit, right sided numbness, right sided weakness, seizure, speech problems, tingling, tremors, weakness, others Musculoskeletal: denies: back pain, gout, joint pain, joint swelling, muscle pain, muscle stiffness, neck pain, others Integumetry: denies: bruises, change in color, change in hair/nails, dryness, laceration, lesions, lumps, rash, wounds, others Allergic/Immunocompromised: denies: Difficulty Healing, Frequent Infections, Hives, Itching, others Hematologic/Lymphatic: denies: anemia, blood clots, easy bleeding, easy bruising, swollen glands, others Endocrine: denies: excessive hunger, excessive sweating, excessive thirst, excessive urination, flushing, intolerance to cold, intolerance to heat, unexplained weight gain, unexplained weight loss, others Psychiatric: denies: anxiety, bipolar disorder, depression, hopeless, panic disorder, schizophrenia, sleepless, suicidal, others Physical Exam General Appearance: No Apparent Distress, Normal HEENT: Normal ENT Inspection, Pharynx Normal, TMs Normal Neck: Full Range of Motion, Non-Tender, Normal, Normal Inspection Respiratory: Chest Non-Tender, Lungs Clear, No Accessory Muscle Use, No Respiratory Distress, Normal Breath Sounds Cardiovascular: No Edema, No JVD, No Murmur, No Gallop, Normal Peripheral Pulses, Regular Rate/Rhythm Breast Exam: Deferred Gastrointestinal: No Organomegaly, Non Tender, No Pulsatile Mass, Normal Bowel Sounds, Soft Genitalia: Deferred Pelvic: Deferred Rectal: Deferred Extremities: No calf tenderness, Normal capillary refill, Normal inspection, Normal range of motion, Non-tender, No pedal edema Musculoskeletal : Apperance: Normal Neurologic: Alert, cutter inspector II-XII nml as Tested, No Motor Deficits, Normal Affect, Normal Mood, No Sensory Deficits Cerebellar Function: Normal Reflexes: Normal Skin: Dry, Normal Color, Warm Lymphatic: No Adenopathy Was a procedure done? Was a procedure done?: No Differential Dx Considerations may include: Anemia, electrolyte imbalance, pneumonia, COPD, CHF, ESRD X-Ray, Labs, Meds, VS Vital Signs Date Time Temp Pulse Resp B/P (MAP) Pulse Ox O2 Delivery O2 Flow Rate FiO2 12/03/24 23:21 97 12/03/24 23:10 98.0 97 20 173/95 100 98.0 Lab Test 12/04/24 00:43 12/03/24 23:49 Range/Units Troponin I High Sensitivity 43 42 </=54 ng/L White Blood Count 7.7 # 4.4-10.8 10^3/uL Red Blood Count 3.54 L 4.5-5.90 10^6/uL Hemoglobin 11.2 #L 13.5-17.5 g/dL Hematocrit 33.5 #L 41.0-53.0 % Mean Corpuscular Volume 94.6 80.0-100.0 fL Mean Corpuscular Hemoglobin 31.7 28.0-32.0 pg Mean Corpuscular Hemoglobin Concent 33.5 32.0-36.0 g/dL Red Cell Distribution Width 18.6 H 11.8-14.3 % Platelet Count 138 #L 140-450 10^3/uL Mean Platelet Volume 7.2 6.9-10.8 fL Neutrophils (%) (Auto) 79.7 37.0-80.0 % Lymphocytes (%) (Auto) 7.2 L 10.0-50.0 % Monocytes (%) (Auto) 8.5 0.0-12.0 % Eosinophils (%) (Auto) 3.5 0.0-7.0 % Basophils (%) (Auto) 1.1 0.0-2.0 % Neutrophils # (Auto) 6.1 1.6-8.6 10 ^3/uL Lymphocytes # (Auto) 0.6 0.4-5.4 10 ^3/uL Monocytes # (Auto) 0.7 0-1.3 10 ^3/uL Eosinophils # (Auto) 0.3 0-0.8 10 ^3/uL Basophils # (Auto) 0.1 0-0.2 10 ^3/uL Nucleated Red Blood Cells 0.0 % Sodium Level 136 136-145 mmol/L Potassium Level 5.0 3.5-5.1 mmol/L Chloride Level 96 L 98-107 mmol/L Carbon Dioxide Level 27 20-31 mmol/L Anion Gap 13 5-15 Blood Urea Nitrogen 53 H 9-23 mg/dL Creatinine 6.94 H 0.700-1.30 mg/dL Glomerular Filtration Rate Calc 8 >90 mL/min BUN/Creatinine Ratio 7.6 L 10.0-20.0 Serum Glucose 129 #H 74-106 mg/dL Calcium Level 10.0 8.7-10.4 mg/dL Total Bilirubin 0.5 0.2-1.0 mg/dL Aspartate Amino Transferase (AST) 21 13-40 U/L Alanine Aminotransferase (ALT) 22 7-40 U/L Alkaline Phosphatase 149 H 46-116 U/L B-Type Natriuretic Peptide 2850.33 0-100 pg/mL Total Protein 7.5 5.7-8.2 g/dL Albumin 4.6 3.2-4.8 g/dL CHEST RADIOGRAPH Indication: chest pain Technique: Single frontal view of the chest was obtained COMPARISON: XY CHEST PORTABLE on DOS: 11/27/24, XY CHEST PORTABLE on DOS: 11/13/24, CT CHEST WITHOUT CONTRAST on DOS: 10/24/24, XY CHEST PORTABLE on DOS: 10/23/24, XY CHEST PORTABLE on DOS: 08/14/24 FINDINGS: Lines and Tubes: None Lungs: Diffuse increased prominence of the pulmonary vasculature and interstitium. No focal consolidation. Trace bilateral pleural effusions. No pneumothorax. Cardiomediastinal contours: Unremarkable Bones: Unremarkable IMPRESSION: 1. Moderate pulmonary edema. Time of 1ST Reevaluation: 23:36 Reevaluation 1ST: Unchanged Patient Education/Counseling: Diagnosis, Treatment Family Education/Counseling: No Family Present SEPSIS Sepsis Screen Date sepsis recognized/suspect: Dec 03, 2024 Time Sepsis recognized/suspect: 2313 Recent Procedure: No On Antibiotic Therapy: No Respiratory Rate >20: No Heart Rate >90: Yes Temp<36 C (96.8 F) or >38.3 C: No SBP <90 or MAP <65 mmHG: No New Acute Mental Status Change: No Is the patient on CPAP, BIPAP,: No Physician Orders Chest Portable (12/03/24 23:17) Electrocardigram (12/03/24 23:17) Troponin-I Hs (12/04/24 02:17) Vital Signs Date Time Temp Pulse Resp B/P (MAP) Pulse Ox O2 Delivery O2 Flow Rate FiO2 12/03/24 23:21 97 12/03/24 23:10 98.0 97 20 173/95 100 98.0 Laboratory Tests Test 12/03/24 23:49 White Blood Count 7.7 10^3/uL (4.4-10.8) # Departure 1 Departure Time of Disposition: 01:39 Impression: Primary Impression: End-stage renal disease on hemodialysis Additional Impressions: Acute exacerbation of CHF (congestive heart failure) COPD exacerbation Disposition: ADMITTED INPATIENT Admit to: Tele Condition: Guarded Comments 59-year-old male who gets dialysis Tuesdays and Saturdays. He is now short of breath. BNP is elevated. Chest x-ray shows pulmonary edema. Patient appears to have fluid overload and CHF with end-stage renal disease on dialysis. Also COPD exacerbation. Patient will need to be admitted for supportive care and further workup Critical Care Note Critical Care Time?: Yes (35 min-critical care time only) Critical care comment: Total critical care time: Approximately 36 minutes Due to a high probability of clinically significant, life threatening deterioration, the patient required my highest level of preparedness to inter vene emergently and I personally spent this critical care time directly and personally managing the patient. This critical care time included obtaining a history; examining the patient; pulse oximetry; ordering and review of studies; arranging urgent treatment with development of a management plan; evaluation of patient's response to treatment; frequent reassessment; and, discussions with other providers. This critical care time was performed to assess and manage the high probability of imminent, life-threatening deterioration that could result in multi-organ failure. It was exclusive of separately billable procedures and treating other patients. Stability Stability form required: No Heart Score Heart Score: Heart Score Response (Comments) Value History Moderate Suspicious 1 EKG Repolarization Disturb 1 Age 45-64 1 Risk Factors 1 or 2 risk factors 1 Troponin Normal limit 0 Total 4 I personally scribed for CYNTHIA HARRINGTON MD (RODNEY) on 12/03/24 at 23:39. Electronically submitted by Itz Alvarez ([email or web address]). I personally scribed for CYNTHIA HARRINGTON MD (RODNEY) on 12/04/24 at 00:53. Electronically submitted by Itz Alvarez ([email or web address]). I personally scribed for CYNTHIA HARRINGTON MD (RODNEY) on 12/04/24 at 01:37. Electronically submitted by Itz Alvarez ([email or web address]). CYNTHIA HARRINGTON MD Dec 03, 2024 23:39
[2024-12-04 00:08] LABS: Hematocrit 33.5 % (41.0-53.0); Hemoglobin 11.2 g/dL (13.5-17.5); Mean Corpuscular Hemoglobin 31.7 pg (28.0-32.0); Mean Corpuscular Volume 94.6 fL (80.0-100.0); Nucleated Red Blood Cells % 0.0 %
--- NOTE | 2024-12-04 00:19 | DVH ---
CHEST RADIOGRAPH Indication: chest pain Technique: Single frontal view of the chest was obtained COMPARISON: XY CHEST PORTABLE on DOS: 11/27/24, XY CHEST PORTABLE on DOS: 11/13/24, CT CHEST WITHOUT CON TRAST on DOS: 10/24/24, XY CHEST PORTABLE on DOS: 10/23/24, XY CHEST PORTABLE on DOS: 08/14/24 FINDINGS: Lines and Tubes: None Lungs: Diffuse increased prominence of the pulmonary vasculature and interstitium. No focal consolida tion. Trace bilateral pleural effusions. No pneumothorax. Cardiomediastinal contours: Unremarkable Bones: Unremarkable IMPRESSION: 1. Moderate pulmonary edema.
[2024-12-04 00:28] LABS: Alanine Aminotransferase 22 U/L (7-40); Albumin 4.6 g/dL (3.2-4.8); Anion Gap 13 (5-15); BUN/Creatinine Ratio 7.6 (10.0-20.0); Calcium 10.0 mg/dL (8.7-10.4); Carbon Dioxide 27 mmol/L (20-31); Potassium 5.0 mmol/L (3.5-5.1); Sodium 136 mmol/L (136-145); Total Protein 7.5 g/dL (5.7-8.2)
[2024-12-04 00:29] LABS: Bilirubin, Total 0.5 mg/dL (0.2-1.0)
[2024-12-04 00:31] LABS: Alkaline Phosphatase 149 U/L (46-116); Blood Urea Nitrogen 53 mg/dL (9-23); Chloride 96 mmol/L (98-107); Glucose 129 mg/dL (74-106)
--- NOTE | 2024-12-04 09:38 | ECG ---
[facility] Test Date: 2024-12-03 Test Time: 23:21:29 Pat Name: CARLOS KING Department: Room: Gender: M Clinical Laboratory Director: AARON : 1965 Requested By: CYNTHIA HARRINGTON Order Number: [id number] Reading MD: Aquiles oHbbs Measurements Intervals Draper Rate: 97 P: 83 CT: 173 QRS: 108 QRSD: 104 T: 75 QT: 364 QTc: 463 Interpretive Statements Sinus rhythm Right axis deviation Abnormal Q wave in V1 Electronically Signed On 12-06-2024 22:10:16 PDT by Aquiles Hobbs Please click the below link to view image of tracing.
== END 2024-12-04 02:25 | disposition left against medical advice (07) ==
LOC: ER 23:09
DX: I13.2 Hypertensive heart and chronic kidney disease with heart failure and with stage 5 chronic kidney disease, or end stage renal disease (principal); N18.6 End stage renal disease; I50.9 Heart failure, unspecified; E11.22 Type 2 diabetes mellitus with diabetic chronic kidney disease; F17.210 Nicotine dependence, cigarettes, uncomplicated; J44.1 Chronic obstructive pulmonary disease with (acute) exacerbation; Z79.899 Other long term (current) drug therapy; Z90.49 Acquired absence of other specified parts of digestive tract; Z99.2 Dependence on renal dialysis
CPT/HCPCS: 36415; 71045; 80053; 83880; 84484; 85025; 93005; 99291

== ENCOUNTER 2024-12-21 19:04 | Inpatient (IN) | payer MEDICARE, OTHER ==
[~2024-12-21] VITALS: Ht 188 cm; Wt 106.2 kg
--- NOTE | 2024-12-21 19:58 | ED.PDOC ---
History of Present Illness HPI Comments 59-year-old male who came to ER via EMS for shortness of breath. Patient has history of hypertension, diabetes, congestive heart failure, end-stage renal disease, on dialysis every Tuesday. Patient is constantly short of breath, however noted worsening of shortness a breath today, with difficulty forming sentences, in associated substernal chest pain. Patient saturating 92% at 2 L/min Chief Complaint: Shortness of Breath Time Seen by MD: 19:58 Primary Care Provider: UNKNOWN Reviewed Notes: Nurses Notes Allergies: Coded Allergies: NO KNOWN ALLERGIES (Unverified , 12/21/24) Home Meds Active Scripts Hydrocodone-Acetaminophen (Hydrocodone Bitartrate/AC 10-325 mg) 1 Tab Tab, 1 TAB PO QID PRN, #40 TAB Prov:SHARMIN AN MD 10/30/24 Levofloxacin Hemihydrate (LEVOFLOXACIN) 500 Mg Tab, 1 TAB PO DAILY for 4 Days, #4 TAB Prov:LAURE TELLO 10/27/24 Hydromorphone Hcl (Dilaudid) 2 Mg Tab, 1 TAB PO TID PRN, #40 TAB Prov:SHARMIN AN MD 08/16/24 Cyclobenzaprine Hcl (Cyclobenzaprine Hcl) 5 Mg Tab, 1 TAB PO TID PRN, #30 TAB Prov:SHARMIN AN MD 07/30/24 Hydromorphone Hcl (Dilaudid) 2 Mg Tab, 1 TAB PO TID PRN, #40 TAB Prov:SHARMIN AN MD 07/30/24 Clopidogrel Bisulfate (CLOPIDOGREL) 75 Mg Tab, 75 MG PO DAILY for 30 Days, #30 TAB Prov:LEÓN COLLINS MD 08/16/23 Reported Medications Patiromer Sorbitex Calcium (Veltassa) 8.4 Gm Pow, 1 PKT PO DAILY 07/12/24 Colchicine (Mitigare) 0.6 Mg Cap, 0.6 MG PO PRN for for gout, CAP 07/12/24 Albuterol Sulfate (VENTOLIN MDI) 90 Mcg Ih, 2 PUFF IN Q6HPRN PRN for wheezing, INH 07/12/24 Losartan Potassium (Cozaar) 100 Mg Tab, 300 MG PO DAILY, TAB 07/12/24 Ipratropium-Albuterol (Ipratropium [place]/Albut) 1 Jacob Jacob, 1 JACOB IN QIDPRN PRN for SHORTNESS OF BREATH, ML 07/12/24 Clonidine Hydrochloride (Clonidine Hcl) 0.1 Mg Tab, 1 TAB PO PRN for SBP>160 04/17/24 Furosemide (Lasix) 40 Mg Tab, 40 MG PO DAILY, TAB 03/04/24 Amlodipine Besylate (NORVASC TABLET) 5 Mg Tb, 2 TAB PO DAILY, #30 TAB 5 Refills 03/04/24 Isosorbide Mononitrate (Isosorbide Mononitrate Er) 30 Mg Tab, 60 MG PO DAILY for CAD 09/19/23 Calcium Acetate (Phosphate Bin (Calcium Acetate) 667 Mg Cap, 667 MG PO TIDWM for DIALYSIS, MG 09/19/23 Atorvastatin Calcium (ATORVASTATIN CALCIUM) 40 Mg Tab, 1 TAB PO DAILY for HIGH CHOLESTEROL, #30 TAB 5 Refills 09/19/23 Plndwpkpju-Gljblgmehgnnns-Cdgl (Breztri Aerosphere 160-9-4.8 Mcg/Act) 1 Aer Aer, 1 AER IN BID for COPD, AER 09/19/23 Albuterol Sulfate (Ventolin) 2.5 Mg/3 Ml Nb, 2.5 MG NEB Q4HP PRN for SHORTNESS OF BREATH, INH 09/19/23 Ranolazine (Ranolazine ER) 500 Mg Tab, 500 MG PO BID for CAD, TAB 09/19/23 Diazepam (VALIUM TABLET) 5 Mg Tb, 2 TAB PO PRN PRN for onset seizure, TAB 08/14/23 Hydralazine Hcl (Hydralazine Hcl) 100 Mg Tab, 1 TAB PO TID, #90 TAB 5 Refills 08/14/23 Gabapentin (Gabapentin) 100 Mg Cap, 2 CAP PO TID PRN for onset seizure , #90 CAP 2 Refills Take with diazepam. 08/14/23 Pantoprazole Sodium Sesquihydr (Protonix) 40 Mg Tab, 40 MG PO QAM, #30 TAB 08/14/23 Aspirin (Aspir-81) 81 Mg Tab, 1 TAB PO QAM, #30 TAB 5 Refills 08/14/23 Allopurinol (ZYLOPRIM TABLET) 100 Mg Tb, 1 TAB PO QAM, #30 TAB 5 Refills 6/9/24 Information Source: Patient Mode of Arrival: Wheelchair Severity: Moderate Timing: Days Duration: Since onset Prehospital treatment: Oxygen Past Medical History PAST MEDICAL HISTORY: CAD, CHF, COPD, DM, ESRD, HTN Surgical History: Appendectomy, Cholecystectomy, PTCA Family History Family History: Reviewed,noncontributory to illness, No family hx of Cancer, No family hx of DM, No family hx of Heart [place], No family hx of HTN, No family hx ofKidney [place], No family hx of Liver [place], No family hx of Lung [place], No family hx of Stroke Social History Smoker: Cigarettes Alcohol: Denies ETOH Use Drugs: Denies Drug Use Lives In: Home Constitutional: denies: chills, diaphoresis, fatigue, fever, malaise, sweats, weakness, others EENTM: denies: blurred vision, double vision, ear bleeding, ear discharge, ear drainage, ear pain, ear ringing, eye pain, eye redness, hearing loss, mouth pain, mouth swelling, nasal discharge, nose bleeding, nose congestion, nose pain, photophobia, tearing, throat pain, throat swelling, voice changes, others Respiratory: reports: shortness of breath, SOB with excertion; denies: cough, hemoptysis, orthopnea, SOB at rest, stridor, wheezing, others Cardiovascular: reports: chest pain; denies: dizzy spells, diaphoresis, Dyspnea on exertion, edema, irregular heart beat, left arm pain, lightheadedness, palpitations, PND, syncope, others Gastrointestinal: denies: abdomen distended, abdominal pain, blood streaked bowels, constipated, diarrhea, dysphagia, difficulty swallowing, hematemesis, melena, nausea, poor appetite, poor fluid intake, rectal bleeding, rectal pain, vomiting, others Genitourinary: denies: burning, dysuria, flank pain, frequency, hematuria, incontinence, penile discharge, penile sore, pain, testicle pain, testicle swelling, urgency, others Neurological: denies: dizziness, fainting, headache, left sided numbness, left sided weakness, numbness, paresthesia, pre-existing deficit, right sided numbness, right sided weakness, seizure, speech problems, tingling, tremors, weakness, others Musculoskeletal: denies: back pain, gout, joint pain, joint swelling, muscle pain, muscle stiffness, neck pain, others Integumetry: denies: bruises, change in color, change in hair/nails, dryness, laceration, lesions, lumps, rash, wounds, others Allergic/Immunocompromised: denies: Difficulty Healing, Frequent Infections, Hives, Itching, others Hematologic/Lymphatic: denies: anemia, blood clots, easy bleeding, easy bruising, swollen glands, others Endocrine: denies: excessive hunger, excessive sweating, excessive thirst, excessive urination, flushing, intolerance to cold, intolerance to heat, unexplained weight gain, unexplained weight loss, others Psychiatric: denies: anxiety, bipolar disorder, depression, hopeless, panic disorder, schizophrenia, sleepless, suicidal, others Physical Exam General Appearance: Mild Distress, Normal HEENT: Normal ENT Inspection, Pharynx Normal, TMs Normal Neck: Full Range of Motion, Non-Tender, Normal, Normal Inspection Respiratory: Chest Non-Tender, Lungs Clear, No Accessory Muscle Use, No Respiratory Distress, Normal Breath Sounds Cardiovascular: No Edema, No JVD, No Murmur, No Gallop, Normal Peripheral Pulses, Regular Rate/Rhythm Breast Exam: Deferred Gastrointestinal: No Organomegaly, Non Tender, No Pulsatile Mass, Normal Bowel Sounds, Soft Genitalia: Deferred Pelvic: Deferred Rectal: Deferred Extremities: No calf tenderness, Normal capillary refill, Normal inspection, Normal range of motion, Non-tender, No pedal edema Musculoskeletal : Apperance: Normal Neurologic: Alert, editor at large II-XII nml as Tested, No Motor Deficits, Normal Affect, Normal Mood, No Sensory Deficits Cerebellar Function: Normal Reflexes: Normal Skin: Dry, Normal Color, Warm Lymphatic: No Adenopathy Was a procedure done? Was a procedure done?: No Differential Dx Considerations may include: Anemia, electrolyte imbalance, pneumonia, end-stage renal disease X-Ray, Labs, Meds, VS Vital Signs Date Time Temp Pulse Resp B/P (MAP) Pulse Ox O2 Delivery O2 Flow Rate FiO2 12/21/24 21:33 173/71 12/21/24 21:33 173/71 12/21/24 19:30 Nasal Cannula* 2 28 12/21/24 19:30 97.9 98 15 178/88 (118) 92 97.9 12/21/24 19:29 98 12/21/24 19:09 98.6 100 28 174/99 96 98.6 Lab Test 12/21/24 20:53 12/21/24 19:59 Range/Units Troponin I High Sensitivity 34 34 </=54 ng/L White Blood Count 7.4 4.4-10.8 10^3/uL Red Blood Count 3.67 L 4.5-5.90 10^6/uL Hemoglobin 11.0 L 13.5-17.5 g/dL Hematocrit 33.9 L 41.0-53.0 % Mean Corpuscular Volume 92.2 80.0-100.0 fL Mean Corpuscular Hemoglobin 30.0 28.0-32.0 pg Mean Corpuscular Hemoglobin Concent 32.5 32.0-36.0 g/dL Red Cell Distribution Width 18.4 H 11.8-14.3 % Platelet Count 104 L 140-450 10^3/uL Mean Platelet Volume 7.5 6.9-10.8 fL Neutrophils (%) (Auto) 79.3 37.0-80.0 % Lymphocytes (%) (Auto) 7.3 L 10.0-50.0 % Monocytes (%) (Auto) 9.7 0.0-12.0 % Eosinophils (%) (Auto) 3.2 0.0-7.0 % Basophils (%) (Auto) 0.5 0.0-2.0 % Neutrophils # (Auto) 5.9 1.6-8.6 10 ^3/uL Lymphocytes # (Auto) 0.5 0.4-5.4 10 ^3/uL Monocytes # (Auto) 0.7 0-1.3 10 ^3/uL Eosinophils # (Auto) 0.2 0-0.8 10 ^3/uL Basophils # (Auto) 0 0-0.2 10 ^3/uL Nucleated Red Blood Cells 0.0 % Prothrombin Time 11.9 H 9.3-11.8 sec Prothrombin Time INR 1.14 0.9-1.15 Activated Partial Thromboplast Time 35.0 H 24.5-34.5 SEC Sodium Level 136 136-145 mmol/L Potassium Level 5.4 H 3.5-5.1 mmol/L Chloride Level 94 L 98-107 mmol/L Carbon Dioxide Level 32 H 20-31 mmol/L Anion Gap 10 5-15 Blood Urea Nitrogen 38 H 9-23 mg/dL Creatinine 6.70 H 0.700-1.30 mg/dL Glomerular Filtration Rate Calc 9 >90 mL/min BUN/Creatinine Ratio 5.7 L 10.0-20.0 Serum Glucose 130 H 74-106 mg/dL Calcium Level 10.0 8.7-10.4 mg/dL Magnesium Level 2.3 1.6-2.6 mg/dL Total Bilirubin 0.4 0.2-1.0 mg/dL Aspartate Amino Transferase (AST) 13 13-40 U/L Alanine Aminotransferase (ALT) 14 7-40 U/L Alkaline Phosphatase 130 H 46-116 U/L B-Type Natriuretic Peptide 2482.42 0-100 pg/mL Total Protein 7.2 5.7-8.2 g/dL Albumin 4.4 3.2-4.8 g/dL Current Medications Medications (Trade) Dose Ordered Sig/Gerard Route Start Time Stop Time Status Last Admin Acetaminophen/ Hydrocodone Bitart ([place] 10/325MG Tab) 1 tab ONCE ONCE PO 12/21/24 20:00 12/21/24 20:01 DC 12/21/24 20:07 Furosemide (Lasix Injection) 80 mg ONCE ONCE IV 12/21/24 21:30 12/21/24 21:31 DC 12/21/24 21:33 Nitroglycerin (Nitro-Bid) 1 pkg ONCE ONCE TD 12/21/24 21:30 12/21/24 21:31 DC 12/21/24 21:33 Time of 1ST Reevaluation: 19:54 Reevaluation 1ST: Unchanged Patient Education/Counseling: Diagnosis, Treatment Family Education/Counseling: No Family Present SEPSIS Sepsis Screen Date sepsis recognized/suspect: Dec 21, 2024 Time Sepsis recognized/suspect: 1929 Recent Procedure: No On Antibiotic Therapy: No Respiratory Rate >20: No Heart Rate >90: Yes Temp<36 C (96.8 F) or >38.3 C: No SBP <90 or MAP <65 mmHG: No New Acute Mental Status Change: No Is the patient on CPAP, BIPAP,: No Physician Orders Electrocardigram (12/21/24 19:14) Chest Portable (12/21/24 19:27) Thread Laster (12/21/24 19:27) Troponin-I Hs (12/21/24 22:27) Sodium Zirconium Cyclosilicate (Lokelma) (12/21/24 21:45) Vital Signs Date Time Temp Pulse Resp B/P (MAP) Pulse Ox O2 Delivery O2 Flow Rate FiO2 12/21/24 21:33 173/71 12/21/24 21:33 173/71 12/21/24 19:30 Nasal Cannula* 2 28 12/21/24 19:30 97.9 98 15 178/88 (118) 92 97.9 12/21/24 19:29 98 12/21/24 19:09 98.6 100 28 174/99 96 98.6 Laboratory Tests Test 12/21/24 19:59 White Blood Count 7.4 10^3/uL (4.4-10.8) Medications Medications Dose Ordered Sig/Gerard Route Start Time Stop Time Status Last Admin Dose Admin Acetaminophen/ Hydrocodone Bitart 1 tab ONCE ONCE PO 12/21/24 20:00 12/21/24 20:01 DC 12/21/24 20:07 Furosemide 80 mg ONCE ONCE IV 12/21/24 21:30 12/21/24 21:31 DC 12/21/24 21:33 Nitroglycerin 1 pkg ONCE ONCE TD 12/21/24 21:30 12/21/24 21:31 DC 12/21/24 21:33 Departure 1 Departure Time of Disposition: 21:45 Impression: Primary Impression: Fluid overload Additional Impressions: End-stage renal disease on hemodialysis Acute exacerbation of CHF (congestive heart failure) Disposition: 09 ADMITTED INPATIENT Admit to: Tele Condition: Guarded Comments 59-year-old male who gets dialysis Tuesdays and Saturdays now with shortness of breath. Does have oxygen at home but is satting only 92% on his normal nasal cannula. He is working hard to breathe. Chest x-ray shows fluid overload with some congestive heart failure. His BNP is high at 2482. His lab review he does have renal failure with BUN creatinine of 38 and 6.7. Potassium slightly elevated 5.4. His troponin is normal at 34. Patient was given Lasix and some nitro paste. Patient will need admission for dialysis and supportive care and further workup. Critical Care Note Critical Care Time?: Yes (35 min-critical care time only) Critical care comment: , shortness of breath, chest pain Stability Stability form required: No Heart Score Heart Score: Heart Score Response (Comments) Value History N/A 0 EKG N/A 0 Age N/A 0 Risk Factors N/A 0 Troponin N/A 0 Total 0 I personally scribed for CYNTHIA HARRINGTON MD ([email or web address]) on 12/21/24 at 19:58. Electronically submitted by Itz Alvarez ([facility]). CYNTIHA HARRINGTON MD Dec 21, 2024 19:58
[2024-12-21] MEDS: HYDROcodone-ACET 10/325MG TAB PO ONE (20:07)
--- NOTE | 2024-12-21 20:13 | DVH ---
CHEST RADIOGRAPH Indication: SOB Technique: Single frontal view of the chest was obtained Comparison: XY CHEST PORTABLE on DOS: 12/11/24, XY CHEST PORTABLE on DOS: 12/04/24, XY CHEST PORTABLE o n DOS: 11/27/24 FINDINGS: Lines and Tubes: None Lungs: Interstitial and alveolar type opacities of bilateral lungs. Indistinctness of bilateral romeo diaphragm. No pneumothorax. Cardiomediastinal contours: Mild cardiomegaly. Bones: No acute osseous abnormality. IMPRESSION: Cardiomegaly with findings suggestive of congestive heart failure. Underlying infectious process and trace pleural effusions can not be excluded.
[2024-12-21 20:32] LABS: Hematocrit 33.9 % (41.0-53.0); Hemoglobin 11.0 g/dL (13.5-17.5); Mean Corpuscular Hemoglobin 30.0 pg (28.0-32.0); Mean Corpuscular Volume 92.2 fL (80.0-100.0); Nucleated Red Blood Cells % 0.0 %
[2024-12-21 20:47] LABS: INR 1.14 (0.9-1.15); Partial Thromboplastin Time 35.0 SEC (24.5-34.5); Prothrombin Time 11.9 sec (9.3-11.8)
[2024-12-21 20:49] LABS: Alanine Aminotransferase 14 U/L (7-40); Albumin 4.4 g/dL (3.2-4.8); Alkaline Phosphatase 130 U/L (46-116); Anion Gap 10 (5-15); BUN/Creatinine Ratio 5.7 (10.0-20.0); Bilirubin, Total 0.4 mg/dL (0.2-1.0); Blood Urea Nitrogen 38 mg/dL (9-23); Calcium 10.0 mg/dL (8.7-10.4); Carbon Dioxide 32 mmol/L (20-31); Chloride 94 mmol/L (98-107); Glucose 130 mg/dL (74-106); Magnesium 2.3 mg/dL (1.6-2.6); Potassium 5.4 mmol/L (3.5-5.1); Sodium 136 mmol/L (136-145); Total Protein 7.2 g/dL (5.7-8.2)
[2024-12-21] MEDS: FUROSEMIDE 100 MG/10ML VIAL IV ONE (21:33)
[2024-12-21] MEDS: NITROGLYCERIN 2% OINT 1GM PKG TD ONE (21:33)
[2024-12-21] MEDS: SODIUM ZIRCONIUM CYCL 10 GM PAK PO ONE (21:54)
[2024-12-21] MEDS: hydroCHLOROthiazide 25 MG TAB PO ONE (22:11)
[2024-12-21] MEDS ORDERED: ACETAMINOPHEN 325 MG TAB PO PRN (22:15)
--- NOTE | 2024-12-21 22:30 | DVHHPRES ---
History of Present Illness Resident Creating Document: ANGEL EMERSON History of Present Illness Mikhail Mckee is a 59-year-old male patient who presents to ED with chief complaint of pulling" retrosternal chest pain which initiated in Functional Class IV (while he was watching TV) lasted approximately 3-4 hours, intensity 7/10, worsens when lying flat and taking deep breaths, improves when leaning forward associated with dyspnea in same functional class. Patient also complains of right flank pain and dysuria which started two weeks ago. Denies any other associated symptoms including syncope, fever, chills, unintentional weight loss, sick contacts and motor or sensory deficits. Past medical history: Diabetes, end-stage renal disease on hemodialysis ([facility] Tuesday//Saturdays), COPD on home oxygen with 4 L/min, CAD with NE requiring a total of seven stents (last stent placed was over one year ago), severe pulmonary hypertension Surgical history: Cholecystectomy, appendectomy, PCI (last one in 2023) , left forearm AV fistula Family history: In father's side heart disease, father had pancreatic cancer Social history: Lives in [place] with family (next of kin is ). Ex tobacco abuse (30 pack-year history of smoking), quit approximately one year and a half ago. Denies current tobacco, alcohol and other drug abuse Allergies: Denies Home medication: Albuterol, allopurinol 100 mg p.o. daily, amlodipine 5 mg p.o. daily, aspirin 81 mg p.o. daily, atorvastatin 40 mg p.o. daily, clonidine, calcium, colchicine, clopidogrel, cyclobenzaprine, diazepam, furosemide, gabapentin 100 mg p.o. t.i.d., hydralazine 100 mg p.o. t.i.d., hydrocodone, hydromorphone, ipratropium, budesonide, isosorbide mononitrate, levofloxacin, losartan, pantoprazole, ranolazine. Patient seen and examined at bedside. Patient has no new. We will admit for further workup. Past Medical History Per HPI Past Surgical History Per HPI Family History Per HPI Past Social History Per HPI Review of Systems Review of Systems Per HPI Allergies: Coded Allergies: NO KNOWN ALLERGIES (Unverified , 12/21/24) Exam Vital Signs Vital Signs Date Time Temp Pulse Resp B/P (MAP) Pulse Ox O2 Delivery O2 Flow Rate FiO2 12/21/24 21:33 173/71 12/21/24 19:30 Nasal Cannula* 2 28 12/21/24 19:30 97.9 98 15 92 97.9 Exam Patient lying in bed, in no acute distress General: Lucid, afebrile, mucosae are moist Cardiovascular: Normal S1 and S2. No murmurs, gallops or rubs Respiratory: Normal ventilation mechanics. Clear lung sounds on auscultation Abdomen: Soft, nontender, no organomegaly, normal bowel sounds MSK/skin: Mobilizes 4 limbs. Skin is dry and warm. Left forearm AV fistula, thrills, is functioning. Neurological: Oriented in 3 spheres. No motor no sensitive deficits. Pupils are isocoric and reactive Labs/Xrays Labs Test 12/21/24 20:53 12/21/24 19:59 Range/Units Troponin I High Sensitivity 34 </=54 ng/L White Blood Count 7.4 4.4-10.8 10^3/uL Red Blood Count 3.67 L 4.5-5.90 10^6/uL Hemoglobin 11.0 L 13.5-17.5 g/dL Hematocrit 33.9 L 41.0-53.0 % Mean Corpuscular Volume 92.2 80.0-100.0 fL Mean Corpuscular Hemoglobin 30.0 28.0-32.0 pg Mean Corpuscular Hemoglobin Concent 32.5 32.0-36.0 g/dL Red Cell Distribution Width 18.4 H 11.8-14.3 % Platelet Count 104 L 140-450 10^3/uL Mean Platelet Volume 7.5 6.9-10.8 fL Neutrophils (%) (Auto) 79.3 37.0-80.0 % Lymphocytes (%) (Auto) 7.3 L 10.0-50.0 % Monocytes (%) (Auto) 9.7 0.0-12.0 % Eosinophils (%) (Auto) 3.2 0.0-7.0 % Basophils (%) (Auto) 0.5 0.0-2.0 % Neutrophils # (Auto) 5.9 1.6-8.6 10 ^3/uL Lymphocytes # (Auto) 0.5 0.4-5.4 10 ^3/uL Monocytes # (Auto) 0.7 0-1.3 10 ^3/uL Eosinophils # (Auto) 0.2 0-0.8 10 ^3/uL Basophils # (Auto) 0 0-0.2 10 ^3/uL Nucleated Red Blood Cells 0.0 % Prothrombin Time 11.9 H 9.3-11.8 sec Prothrombin Time INR 1.14 0.9-1.15 Activated Partial Thromboplast Time 35.0 H 24.5-34.5 SEC Sodium Level 136 136-145 mmol/L Potassium Level 5.4 H 3.5-5.1 mmol/L Chloride Level 94 L 98-107 mmol/L Carbon Dioxide Level 32 H 20-31 mmol/L Anion Gap 10 5-15 Blood Urea Nitrogen 38 H 9-23 mg/dL Creatinine 6.70 H 0.700-1.30 mg/dL Glomerular Filtration Rate Calc 9 >90 mL/min BUN/Creatinine Ratio 5.7 L 10.0-20.0 Serum Glucose 130 H 74-106 mg/dL Calcium Level 10.0 8.7-10.4 mg/dL Magnesium Level 2.3 1.6-2.6 mg/dL Total Bilirubin 0.4 0.2-1.0 mg/dL Aspartate Amino Transferase (AST) 13 13-40 U/L Alanine Aminotransferase (ALT) 14 7-40 U/L Alkaline Phosphatase 130 H 46-116 U/L B-Type Natriuretic Peptide 2482.42 0-100 pg/mL Total Protein 7.2 5.7-8.2 g/dL Albumin 4.4 3.2-4.8 g/dL SEPSIS Sepsis Screen Date sepsis recognized/suspect: Dec 21, 2024 Time Sepsis recognized/suspect: 1929 Recent Procedure: No On Antibiotic Therapy: No Respiratory Rate >20: No Heart Rate >90: Yes Temp<36 C (96.8 F) or >38.3 C: No SBP <90 or MAP <65 mmHG: No New Acute Mental Status Change: No Is the patient on CPAP, BIPAP,: No Physician Orders Electrocardigram (12/21/24 19:14) Chest Portable (12/21/24 19:27) Audit Lead (12/21/24 19:27) Troponin-I Hs (12/21/24 22:27) Admit (12/21/24 22:15) Code Status (12/21/24:) Acetaminophen Tablet (Tylenol Tablet) (12/21/24:15) Ondansetron Hcl (Zofran) (12/21/24:) Complete Blood Count (12/22/24 04:00) Comprehensive Metabolic Panel (12/22/24 04:00) Npo (Nothing By Mouth) Diet (12/22/24 Breakfast) Oxygen By Nasal Cannula (12/21/24:) Stat Ekg For Chest Pain (12/21/24:) Notify Of Changes From Base (12/21/24:) Power Wheelchair Mechanic For 24 Hours (12/21/24:) Emergency Dysrhythmia Protocol (12/21/24:) Rhythm Strips Once Every Shift (12/21/24:) Vitamin D, 25-Hydroxy (12/21/24 22:27) Vitamin B12 (12/21/24 22:27) Urinalysis (12/21/24:) Thyroid Stimulating Hormone (12/21/24 22:27) Phosphorus (12/21/24 22:27) Magnesium (12/21/24 22:27) Lipid Panel (12/21/24:) Lactic Acid W/ Reflex Order (12/21/24:) Hemoglobin A1c (12/21/24 22:27) Drug Screen (12/21/24 22:27) Abg W/ Co-Ox (12/21/24 22:27) Potassium (12/21/24 22:27) Vital Signs Date Time Temp Pulse Resp B/P (MAP) Pulse Ox O2 Delivery O2 Flow Rate FiO2 12/21/24 21:33 173/71 12/21/24 21:33 173/71 12/21/24 19:30 Nasal Cannula* 2 28 12/21/24 19:30 97.9 98 15 178/88 (118) 92 97.9 12/21/24 19:29 98 12/21/24 19:09 98.6 100 28 174/99 96 98.6 Laboratory Tests Test 12/21/24 19:59 White Blood Count 7.4 10^3/uL (4.4-10.8) Medications Medications Dose Ordered Sig/Gerard Route Start Time Stop Time Status Last Admin Dose Admin Acetaminophen/ Hydrocodone Bitart 1 tab ONCE ONCE PO 12/21/24 20:00 12/21/24 20:01 DC 12/21/24 20:07 1 TAB Furosemide 80 mg ONCE ONCE IV 12/21/24 21:30 12/21/24 21:31 DC 12/21/24 21:33 80 MG Nitroglycerin 1 pkg ONCE ONCE TD 12/21/24 21:30 12/21/24 21:31 DC 12/21/24 21:33 1 PKG Zirconium Oxide 10 gm ONCE ONCE PO 12/21/24 21:45 12/21/24 21:46 DC 12/21/24 21:54 10 GM Assessment/Plan Assessment/Plan ASSESSMENT Acute on chronic respiratory failure 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 Continue with home oxygen flow (4L/min) Patient has been complaint with medication and HD sessions. Indicated hyperkalemia protocol and consulted nephrology to complete HD sessions Patient refused ABG. Last echocardiogram completed on 08/2024: LVEF 45%, hypokinesis of distal half of the ventricular septum and anterior wall, slightly dilated RV and RA, severe pulmonary hypertension (70 mmHg). Consulted nephrology to continue hemodialysis session Indicated furosemide IV 40 mg t.i.d. Ordered kidney US and lumbar x-ray On insulin sliding scale Ordered CRP and ESR to rule out pericarditis Goals of care discussed with patient for over 18 minutes: Full code status Discussed plan with Dr Waller, patient and nurses: Admitted patient to telemetry. Indicated IV diuretics for fluid overload and hyperkalemia. Ordered complementary regarding back pain. Plan discussed with: Patient, Other (Nurses) My Orders Orders - ANGEL EMERSON RESIDENT Procedure Category Date Status Time Admit ADMIT 12/21/24 Verified 22:15 Code Status CODE 12/21/24 Verified 22:15 Acetaminophen Tablet PHA 12/21/24 Verified (Tylenol Tablet) 22:15 Ondansetron Hcl PHA 12/21/24 Verified (Zofran) 22:15 Complete Blood Count LAB 12/22/24 Verified 04:00 Comprehensive LAB 12/22/24 Verified Metabolic Panel 04:00 Npo (Nothing By DIET 12/22/24 Verified Mouth) Diet Breakfast Oxygen By Nasal RT 12/21/24 Verified Cannula 22:15 Stat Ekg For Chest SEAN 12/21/24 Verified Pain 22:15 Notify Md Of Changes SEAN 12/21/24 Verified From Base 22:15 Power Wheelchair Mechanic For SEAN 12/21/24 Verified 24 Hours 22:15 Emergency Dysrhythmia [facility] 12/21/24 Verified Protocol 22:15 Rhythm Strips Once [facility] 12/21/24 Verified Every Shift 22:15 Vitamin D, 25-Hydroxy LAB 12/21/24 Verified 22:27 Vitamin B12 LAB 12/21/24 Verified 22:27 Urinalysis LAB 12/21/24 Verified 22:27 Thyroid Stimulating LAB 12/21/24 Verified Hormone 22:27 Phosphorus LAB 12/21/24 Verified 22:27 Magnesium LAB 12/21/24 Verified 22:27 Lipid Panel LAB 12/21/24 Verified 22:27 Lactic Acid W/ Reflex LAB 12/21/24 Verified Order 22:27 Hemoglobin A1c LAB 12/21/24 Verified 22:27 Drug Screen LAB 12/21/24 Verified 22:27 Abg W/ Co-Ox RT 12/21/24 Verified 22:27 Potassium LAB 12/21/24 Verified 22:27 Date of Service: Dec 21, 2024 Billing Provider: JOEL WALLER MD Common Visit Codes: [id number] INP/OBS CARE (HIGH) Secondary Visit Codes: [id number] CARE PLAN 30 MINUTES ANGEL EMERSON RESIDENT Dec 21, 2024 22:30
[2024-12-21 23:54] LABS: Magnesium 2.2 mg/dL (1.6-2.6)
[2024-12-22] VITALS (7 sets, daily range): BP systolic 153–193; BP diastolic 58–88; PULSE 97–107; RESP 16–20; TEMP 97.4–98; O2SAT 93–97
[2024-12-22 00:17] LABS: Triglycerides 64.0 mg/dL (< 150)
[2024-12-22 00:19] LABS: Cholesterol 143.0 mg/dL (< 200)
[2024-12-22 00:29] LABS: HDL Cholesterol 80.0 mg/dL (40-59)
[2024-12-22] MEDS: FUROSEMIDE 100 MG/10ML VIAL IV ONE (01:30)
--- NOTE | 2024-12-22 03:10 | ECG ---
[facility] Test Date: 2024-12-21 Test Time: 19:29:28 Pat Name: CARLOS KING Department: [facility] ED Room: [address] [place] [address] Gender: M Plant Operator: rachel : 1965 Requested By: CYNTHIA HARRINGTON Order Number: [id number] Reading MD: Aquiles Hobbs Measurements Intervals [place] Rate: 98 P: 42 OH: 201 QRS: 50 QRSD: 102 T: 59 QT: 360 QTc: 460 Interpretive Statements Sinus rhythm Borderline prolonged [place] interval Probable left atrial enlargement Low voltage, precordial leads Probable anteroseptal infarct, old Electronically Signed On 12-22-2024 18:50:13 PDT by Aquiles Hobbs Please click the below link to view image of tracing.
[2024-12-22 04:06] LABS: Hematocrit 32.6 % (41.0-53.0); Hemoglobin 10.8 g/dL (13.5-17.5); Mean Corpuscular Hemoglobin 30.5 pg (28.0-32.0); Mean Corpuscular Volume 91.7 fL (80.0-100.0); Nucleated Red Blood Cells % 0.0 %
[2024-12-22 04:11] LABS: Alanine Aminotransferase 13 U/L (7-40); Albumin 4.4 g/dL (3.2-4.8); Anion Gap 11 (5-15); BUN/Creatinine Ratio 5.8 (10.0-20.0); Calcium 9.8 mg/dL (8.7-10.4); Carbon Dioxide 30 mmol/L (20-31); Total Protein 7.1 g/dL (5.7-8.2)
[2024-12-22 04:12] LABS: Bilirubin, Total 0.5 mg/dL (0.2-1.0)
[2024-12-22 04:21] LABS: Alkaline Phosphatase 124 U/L (46-116); Blood Urea Nitrogen 40 mg/dL (9-23); Chloride 93 mmol/L (98-107); Glucose 127 mg/dL (74-106); Potassium 5.4 mmol/L (3.5-5.1); Sodium 134 mmol/L (136-145)
[2024-12-22] MEDS: hydrALAZINE HCL 20 MG/ML VL IV ONE (05:32)
[2024-12-22] MEDS: FUROSEMIDE 40 MG/4 ML VIAL IV SCH (05:35)
[2024-12-22] MEDS: ONDANSETRON HCL 4 MG/2 ML VIAL IV PRN (09:15)
[2024-12-22] MEDS: HYDROmorphone HCL 2 MG/ML VL/or syr IV PRN (09:15)
[2024-12-22] MEDS: CALCIUM GLUC 1,000mg/50ml-NS 50 ML IV ONE (10:30)
[2024-12-22] MEDS ORDERED: ALBUTEROL SULF 2.5 MG/0.5ML(0.5%) NEB SOLN NEB ONE (10:30)
[2024-12-22] MEDS: DEXTROSE (50%) 50ML SYRG IV ONE (10:30)
[2024-12-22] MEDS ORDERED: GABAPENTIN 100 MG CAP PO PRN (10:30)
[2024-12-22] MEDS: InsuLIN REG 1unit/0.01ml Soln (100units/ml) IV ONE (10:30)
--- NOTE | 2024-12-22 10:49 | DVH ---
XY PELVIS AP HISTORY: Flank pain TECHNICAL DATA: Frontal view was obtained of the pelvis. COMPARISON: XY LUMBAR SPINE 3 VIEW on DOS: 12/22/24, XY R HIP COMPLETE XRAY on DOS: 10/17/24, XY LUMBA R SPINE 3 VIEW on DOS: 07/24/24, XY R HIP COMPLETE XRAY on DOS: 07/11/24, XY PELVIS AP on DOS: 04/16/24 FINDINGS: There is no abnormality involving the bony pelvis. The sacroiliac joints appear normal. There is no a bnormality of the symphysis pubis. The hip joint spaces are symmetric. The proximal femurs demonstrat e no abnormality. IMPRESSION: No acute fracture or dislocation of the pelvis.
--- NOTE | 2024-12-22 11:03 | DVH ---
Indication: Flank pain Technique: XY LUMBAR SPINE 3 VIEWXY Comparison: 07/14/2024 FINDINGS/IMPRESSION: Endplate erosive/ irregularity changes at the L4-5 disc space interval. There is approximately 40% lo ss of the L4 vertebral body height. This also appears to be present on previous MRI from July 2024. I f there is concern for acute infection/ discitis osteomyelitis recommend obtaining MRI lumbar spine w ith and without contrast. The L1 through L3 heights are maintained. Moderate multilevel disc space narrowing with endplate scl erosis, anterior osteophytosis. Aortic atherosclerotic disease. Cholecystectomy. Moderate to advanced lumbar facet hypertrophic changes. Chronic T11 compression deformity with 20% loss height. Chronic T12 compression deformity with 10% lo ss height.
[2024-12-22] MEDS ORDERED: ALBUTEROL SULF 2.5 MG/0.5ML(0.5%) NEB SOLN ONE (11:05)
[2024-12-22] MEDS: CALCIUM ACETATE 667 MG CAP PO SCH (12:00)
[2024-12-22] MEDS: SODIUM CHL 0.9% 1000 ML BAG XX ONE (13:15)
--- NOTE | 2024-12-22 13:29 | DVH ---
RENAL ULTRASOUND CLINICAL HISTORY: Right flank pain TECHNIQUE: Multiple grayscale ultrasound images were obtained through the kidneys and urinary bladder . COMPARISON: None FINDINGS: Right kidney: Measures 8.6 x 4.2 x 3.5 cm. No hydronephrosis. There is a simple cyst in the lower po le right kidney measuring 1.5 cm. Tiny echogenic foci in the right kidney largest measuring 7 mm. Left kidney: Measures 8.8 x 4.5 x 4.0 cm. No hydronephrosis. Tiny echogenic focus in the upper pole r ight kidney measuring 5 mm. Urinary bladder: Unremarkable. Prevoid volume is 651 mL. Incidental bilateral pleural effusions, sgeiw-mnzahue-vdiz-left. There is splenomegaly measuring up t o 14.6 cm. IMPRESSION: 1. Slightly small kidneys without evidence of hydronephrosis. 2. Small echogenic foci in the bilateral kidneys suggesting nonobstructing renal calculi. 3. Gwjni-anepuyd-yfjr-left pleural effusions. 4. Mild splenomegaly.
--- NOTE | 2024-12-22 14:39 | DVHPN2 ---
Reviewed: Care Plan, H&P, Labs, Medications, Previous Orders, Radiology Changes from previous H/P or p: No Changes Objective Vitals Vital Signs Date Time Temp Pulse Resp B/P (MAP) Pulse Ox O2 Delivery O2 Flow Rate FiO2 12/22/24 11:15 20 94 Nasal Cannula* 2 28 12/22/24 09:47 101 153/80 (104) 12/22/24 07:45 97.7 97.7 Medications Current Medications Medications Dose Ordered Sig/Gerard Route Start Time Stop Time Status Last Admin Dose Admin Acetaminophen 325 mg Q4HP PRN PO 12/21/24 22:15 Ondansetron HCl 4 mg Q4HP PRN IV 12/21/24 22:15 12/22/24 09:15 4 MG Furosemide 40 mg TID IV 12/22/24 06:00 12/22/24 05:35 40 MG Hydromorphone HCl 0.25 mg Q4HPRN PRN IV 12/22/24 01:30 12/22/24 09:15 0.25 MG Allopurinol 100 mg QAM PO 12/23/24 07:00 Amlodipine Besylate 10 mg DAILY PO 12/23/24 10:00 Aspirin 81 mg QAM PO 12/23/24 07:00 Calcium Acetate 667 mg TIDWM PO 12/22/24 12:00 Clopidogrel Bisulfate 75 mg DAILY PO 12/23/24 10:00 Gabapentin 100 mg TID PRN PO 12/22/24 10:30 Pantoprazole Sodium 40 mg QAM PO 12/23/24 07:00 Ranolazine 500 mg BID PO 12/22/24 22:00 Atorvastatin Calcium 40 mg HS PO 12/22/24 22:00 Hydralazine HCl 100 mg TID PO 12/22/24 14:00 Isosorbide Mononitrate 60 mg DAILY PO 12/23/24 10:00 Ergocalciferol 50,000 unit Q7D PO 12/22/24 10:45 Laboratory Results Laboratory Tests 12/22/24 03:28 Chemistry Test 12/21/24 19:59 12/21/24 23:05 12/22/24 03:28 Albumin 4.4 g/dL (3.2-4.8) 4.4 g/dL (3.2-4.8) Calcium Level 10.0 mg/dL (8.7-10.4) 9.8 mg/dL (8.7-10.4) Magnesium Level 2.3 mg/dL (1.6-2.6) 2.2 mg/dL (1.6-2.6) Total Protein 7.2 g/dL (5.7-8.2) 7.1 g/dL (5.7-8.2) Phosphorus Level 4.9 mg/dL (2.4-5.1) Coagulation Test 12/21/24 19:59 Prothrombin Time 11.9 sec (9.3-11.8) H Prothrombin Time INR 1.14 (0.9-1.15) Activated Partial Thromboplast Time 35.0 SEC (24.5-34.5) H Lipid panel Test 12/21/24 23:05 Cholesterol Level 143 mg/dL (< 200) HDL Cholesterol 80 mg/dL (40-59) H Triglycerides Level 64 mg/dL (< 150) Cardiac Markers Test 12/21/24 19:59 B-Type Natriuretic Peptide 2482.42 pg/mL (0-100) LFT Test 12/21/24 19:59 12/22/24 03:28 Alanine Aminotransferase (ALT) 14 U/L (7-40) 13 U/L (7-40) Alkaline Phosphatase 130 U/L (46-116) H 124 U/L (46-116) H Aspartate Amino Transferase (AST) 13 U/L (13-40) 13 U/L (13-40) Total Bilirubin 0.4 mg/dL (0.2-1.0) 0.5 mg/dL (0.2-1.0) HgA1c, TSH Test 12/21/24 23:05 Thyroid Stimulating Hormone (TSH) 1.78 uIU/mL (0.55-4.78) Labs and/or images reviewed: Labs reviewed by me, Image(s) reviewed by me Assessment/Plan Assessment/Plan Acute on chronic respiratory failure 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, 45%) Severe pulmonary hypertension (RVSP 70 mmHg) Cardiorenal syndrome probable type 3 Rule out ACS Rule out pericarditis ESRD on hemodialysis Hyperkalemia Rule out ureterolithiasis/UTI and vertebral fractures History of osteomyelitis of lumbar vertebra s/p resection Normocytic anemia - probably secondary to ESRD Hypertension Dyslipidemia Diabetes Time Spent 70 minutes Advanced care planning time 20 minutes Patient is full code Plan discussed with: Patient Date of Service: Dec 22, 2024 Billing Provider: SHARMIN AN MD Common Visit Codes: [id number] CARE 30-74 MIN SHARMIN AN MD Dec 22, 2024 14:39
[2024-12-22] MEDS: SODIUM BICARB 8.4% 50Meq/50ml SYR INJ IV ONE (15:22)
[2024-12-22] MEDS: ERGOCALCIFEROL 50,000 UNIT(1.25MG) CAP PO SCH (15:23)
[2024-12-22] MEDS: SODIUM ZIRCONIUM CYCL 10 GM PAK PO ONE (15:23)
--- NOTE | 2024-12-22 16:22 | DVHINCON2 ---
Date of service: Dec 22, [address] Brown Reason for Consultation End-stage renal disease History of Present Illness 59-year-old patient with significant history of end-stage renal disease on hemodialysis TTS with last dialysis this past with about 3 L UF achie samantha, CAD multiple stents, COPD on 4 L via nasal cannula, hypertension, hyperlipidemia, CHF, who presents to the hospital with chest pain sensation of pressure and pulling about 7/10 worsened by exertion and laying in bed associated with orthopnea and dyspnea on exertion. Patient denies fever chills. He chew on some ice on Tuesday but denies excessive fluid intake or salty food intake otherwise to his knowledge. On admission laboratory data revealed findings suggestive of end-stage renal disease. Chest x-ray shows some pulmonary edema Past Medical History End-stage renal disease, hypertension, hyperlipidemia, diabetes type 2, CAD, chronic hypoxic respiratory failure, , diskitis Past Surgical History Incisional dry, av fistula creation. Allergies: Coded Allergies: NO KNOWN ALLERGIES (Unverified , 12/21/24) Home Meds Active Scripts Hydrocodone-Acetaminophen (Hydrocodone Bitartrate/AC 10-325 mg) 1 Tab Tab, 1 TAB PO QID PRN, #40 TAB Prov:SHARMIN AN MD 10/30/24 Levofloxacin Hemihydrate (LEVOFLOXACIN) 500 Mg Tab, 1 TAB PO DAILY for 4 Days, #4 TAB Prov:LAURE TELLO 10/27/24 Hydromorphone Hcl (Dilaudid) 2 Mg Tab, 1 TAB PO TID PRN, #40 TAB Prov:SHARMIN AN MD 08/16/24 Cyclobenzaprine Hcl (Cyclobenzaprine Hcl) 5 Mg Tab, 1 TAB PO TID PRN, #30 TAB Prov:SHARMIN AN MD 07/30/24 Hydromorphone Hcl (Dilaudid) 2 Mg Tab, 1 TAB PO TID PRN, #40 TAB Prov:SHARMIN AN MD 07/30/24 Clopidogrel Bisulfate (CLOPIDOGREL) 75 Mg Tab, 75 MG PO DAILY for 30 Days, #30 TAB Prov:LEÓN COLLINS MD 08/16/23 Reported Medications Patiromer Sorbitex Calcium (Veltassa) 8.4 Gm Pow, 1 PKT PO DAILY 07/12/24 Colchicine (Mitigare) 0.6 Mg Cap, 0.6 MG PO PRN for for gout, CAP 07/12/24 Albuterol Sulfate (VENTOLIN MDI) 90 Mcg Ih, 2 PUFF IN Q6HPRN PRN for wheezing, I NH 07/12/24 Losartan Potassium (Cozaar) 100 Mg Tab, 300 MG PO DAILY, TAB 07/12/24 Ipratropium-Albuterol (Ipratropium Fields/Albut) 1 Jacob Jacob, 1 JACOB IN QIDPRN PRN for SHORTNESS OF BREATH, ML 07/12/24 Clonidine Hydrochloride (Clonidine Hcl) 0.1 Mg Tab, 1 TAB PO PRN for SBP>160 04/17/24 Furosemide (Lasix) 40 Mg Tab, 40 MG PO DAILY, TAB 03/04/24 Amlodipine Besylate (NORVASC TABLET) 5 Mg Tb, 2 TAB PO DAILY, #30 TAB 5 Refills 03/04/24 Isosorbide Mononitrate (Isosorbide Mononitrate Er) 30 Mg Tab, 60 MG PO DAILY for CAD 09/19/23 Calcium Acetate (Phosphate Bin (Calcium Acetate) 667 Mg Cap, 667 MG PO TIDWM for DIALYSIS, MG 09/19/23 Atorvastatin Calcium (ATORVASTATIN CALCIUM) 40 Mg Tab, 1 TAB PO DAILY for HIGH CHOLESTEROL, #30 TAB 5 Refills 09/19/23 Nhvuyvjqpx-Ahmzqitdhtrqjj-Gchm (Breztri Aerosphere 160-9-4.8 Mcg/Act) 1 Aer Aer, 1 AER IN BID for COPD, AER 09/19/23 Albuterol Sulfate (Ventolin) 2.5 Mg/3 Ml Nb, 2.5 MG NEB Q4HP PRN for SHORTNESS OF BREATH, INH 09/19/23 Ranolazine (Ranolazine ER) 500 Mg Tab, 500 MG PO BID for CAD, TAB 09/19/23 Diazepam (VALIUM TABLET) 5 Mg Tb, 2 TAB PO PRN PRN for onset seizure, TAB 08/14/23 Hydralazine Hcl (Hydralazine Hcl) 100 Mg Tab, 1 TAB PO TID, #90 TAB 5 Refills 08/14/23 Gabapentin (Gabapentin) 100 Mg Cap, 2 CAP PO TID PRN for onset seizure , #90 CAP 2 Refills Take with diazepam. 08/14/23 Pantoprazole Sodium Sesquihydr (Protonix) 40 Mg Tab, 40 MG PO QAM, #30 TAB 08/14/23 Aspirin (Aspir-81) 81 Mg Tab, 1 TAB PO QAM, #30 TAB 5 Refills 08/14/23 Allopurinol (ZYLOPRIM TABLET) 100 Mg Tb, 1 TAB PO QAM, #30 TAB 5 Refills 08/14/23 Current Medications Current Medications Medications (Trade) Dose Ordered Sig/Gerard Route PRN Reason Start Time Stop Time Status Last Admin Acetaminophen (Tylenol Tablet) 325 mg Q4HP PRN PO MILD PAIN (1-3 PAIN SCALE) 12/21/24 22:15 Ondansetron HCl (Zofran) 4 mg Q4HP PRN IV NAUSEA / VOMITING 12/21/24 22:15 12/22/24 09:15 Furosemide (Lasix Injection) 40 mg TID IV 12/22/24 06:00 12/22/24 05:35 Hydralazine HCl (Apresoline Tablet) 25 mg Q8HR PO 12/22/24 06:00 12/22/24 10:31 DC 12/22/24 06:30 Hydromorphone HCl (Dilaudid Injection) 0.25 mg Q4HPRN PRN IV PAIN SCALE 7 THRU 10 12/22/24 01:30 12/22/24 16:06 Allopurinol (Zyloprim Tablet) 100 mg QAM PO 12/23/24 07:00 Amlodipine Besylate (Norvasc Tablet) 10 mg DAILY PO 12/23/24 10:00 Aspirin (Ecotrin Enteric Coated Tablet) 81 mg QAM PO 12/23/24 07:00 Calcium Acetate (Phoslo Capsule) 667 mg TIDWM PO 12/22/24 12:00 Clopidogrel Bisulfate (Plavix) 75 mg DAILY PO 12/23/24 10:00 Gabapentin (Neurontin Capsule) 100 mg TID PRN PO onset seizure 12/22/24 10:30 Pantoprazole Sodium (Protonix Tablet) 40 mg QAM PO 12/23/24 07:00 Ranolazine (Ranexa ER) 500 mg BID PO 12/22/24 22:00 Atorvastatin Calcium (Lipitor) 40 mg HS PO 12/22/24 22:00 Hydralazine HCl (Apresoline Tablet) 100 mg TID PO 12/22/24 14:00 Isosorbide Mononitrate (Imdur Er Tablet) 60 mg DAILY PO 12/23/24 10:00 Ergocalciferol (Vitamin D 50,000 Unit) 50,000 unit Q7D PO 12/22/24 10:45 12/22/24 15:23 Family History: Diabetes mellitus G8 MOTHER, Onset:Unknown G8 FATHER, Onset:Unknown Fibromyalgia G8 MOTHER Hypertension G8 MOTHER G8 FATHER, Onset:Unknown Social History He denies smoking alcohol drug abuse, he lives with his . Review of Systems HEENT: Oral mucosa dry Neck no JVD Cardiovascular: Positive for chest pain denies orthopnea or PND Respiratory: Denies cough or shortness of breath Gastrointestinal: Denies for nausea vomiting Musculoskeletal: Denies myalgias Neurological: Denies focal weakness Dermatological: Denies any rash The rest of the review of systems were reviewed pertinent positives and pertinent negatives are as per HPI up to 12 points review of systems H&P Exam Vital Signs/I&O Vital Sign Date Time Temp Pulse Resp B/P (MAP) Pulse Ox O2 Delivery O2 Flow Rate FiO2 12/22/24 16:06 96 20 165/63 12/22/24 11:15 94 Nasal Cannula* 2 28 12/22/24 07:45 97.7 97.7 Physical Exam HEENT: No evidence of JVD, no oral ulcers. Pulmonary: Crackles both lung on auscultation bilaterally Cardiovascular S1-S2, no S3 or S4 Abdomen: Bowel sounds positive, soft no rebound tenderness Skin: No rash Neurological: Alert, oriented, no focal weakness Labs/Diagnostic Data Labs/Diagnostic Data Laboratory Tests Test 12/22/24 14:17 12/22/24 03:28 12/21/24 23:05 12/21/24 20:53 Range/Units Potassium Level 5.4 H 5.4 H 5.2 H 3.5-5.1 mmol/L White Blood Count 7.4 4.4-10.8 10^3/uL Red Blood Count 3.56 L 4.5-5.90 10^6/uL Hemoglobin 10.8 L 13.5-17.5 g/dL Hematocrit 32.6 L 41.0-53.0 % Mean Corpuscular Volume 91.7 80.0-100.0 fL Mean Corpuscular Hemoglobin 30.5 28.0-32.0 pg Mean Corpuscular Hemoglobin Concent 33.2 32.0-36.0 g/dL Red Cell Distribution Width 18.5 H 11.8-14.3 % Platelet Count 97 L 140-450 10^3/uL Mean Platelet Volume 7.4 6.9-10.8 fL Neutrophils (%) (Auto) 75.5 37.0-80.0 % Lymphocytes (%) (Auto) 8.4 L 10.0-50.0 % Monocytes (%) (Auto) 10.4 0.0-12.0 % Eosinophils (%) (Auto) 4.9 0.0-7.0 % Basophils (%) (Auto) 0.8 0.0-2.0 % Neutrophils # (Auto) 5.6 1.6-8.6 10 ^3/uL Lymphocytes # (Auto) 0.6 0.4-5.4 10 ^3/uL Monocytes # (Auto) 0.8 0-1.3 10 ^3/uL Eosinophils # (Auto) 0.4 0-0.8 10 ^3/uL Basophils # (Auto) 0.1 0-0.2 10 ^3/uL Nucleated Red Blood Cells 0.0 % Erythrocyte Sedimentation Rate 25 H 0-20 mm/hr Sodium Level 134 L 136-145 mmol/L Chloride Level 93 L 98-107 mmol/L Carbon Dioxide Level 30 20-31 mmol/L Anion Gap 11 5-15 Blood Urea Nitrogen 40 H 9-23 mg/dL Creatinine 6.93 H 0.700-1.30 mg/dL Glomerular Filtration Rate Calc 8 >90 mL/min BUN/Creatinine Ratio 5.8 L 10.0-20.0 Serum Glucose 127 H 74-106 mg/dL Calcium Level 9.8 8.7-10.4 mg/dL Total Bilirubin 0.5 0.2-1.0 mg/dL Aspartate Amino Transferase (AST) 13 13-40 U/L Alanine Aminotransferase (ALT) 13 7-40 U/L Alkaline Phosphatase 124 H 46-116 U/L C-Reactive Protein High Sensitivity 1.45 H <1.0 mg/dL Total Protein 7.1 5.7-8.2 g/dL Albumin 4.4 3.2-4.8 g/dL Lactic Acid Level 1.1 0.4-2.0 mmol/L Phosphorus Level 4.9 2.4-5.1 mg/dL Magnesium Level 2.2 1.6-2.6 mg/dL Troponin I High Sensitivity 35 34 </=54 ng/L Triglycerides Level 64 < 150 mg/dL Cholesterol Level 143 < 200 mg/dL LDL Cholesterol 48 < 100 mg/dL HDL Cholesterol 80 H 40-59 mg/dL Vitamin B12 Level 600 211-911 pg/mL Vitamin D 25-Hydroxy 14.4 L 30.0-100 ng/mL Thyroid Stimulating Hormone (TSH) 1.78 0.55-4.78 uIU/mL Test 12/21/24 19:59 Range/Units White Blood Count 7.4 4.4-10.8 10^3/uL Red Blood Count 3.67 L 4.5-5.90 10^6/uL Hemoglobin 11.0 L 13.5-17.5 g/dL Hematocrit 33.9 L 41.0-53.0 % Mean Corpuscular Volume 92.2 80.0-100.0 fL Mean Corpuscular Hemoglobin 30.0 28.0-32.0 pg Mean Corpuscular Hemoglobin Concent 32.5 32.0-36.0 g/dL Red Cell Distribution Width 18.4 H 11.8-14.3 % Platelet Count 104 L 140-450 10^3/uL Mean Platelet Volume 7.5 6.9-10.8 fL Neutrophils (%) (Auto) 79.3 37.0-80.0 % Lymphocytes (%) (Auto) 7.3 L 10.0-50.0 % Monocytes (%) (Auto) 9.7 0.0-12.0 % Eosinophils (%) (Auto) 3.2 0.0-7.0 % Basophils (%) (Auto) 0.5 0.0-2.0 % Neutrophils # (Auto) 5.9 1.6-8.6 10 ^3/uL Lymphocytes # (Auto) 0.5 0.4-5.4 10 ^3/uL Monocytes # (Auto) 0.7 0-1.3 10 ^3/uL Eosinophils # (Auto) 0.2 0-0.8 10 ^3/uL Basophils # (Auto) 0 0-0.2 10 ^3/uL Nucleated Red Blood Cells 0.0 % Prothrombin Time 11.9 H 9.3-11.8 sec Prothrombin Time INR 1.14 0.9-1.15 Activated Partial Thromboplast Time 35.0 H 24.5-34.5 SEC Sodium Level 136 136-145 mmol/L Potassium Level 5.4 H 3.5-5.1 mmol/L Chloride Level 94 L 98-107 mmol/L Carbon Dioxide Level 32 H 20-31 mmol/L Anion Gap 10 5-15 Blood Urea Nitrogen 38 H 9-23 mg/dL Creatinine 6.70 H 0.700-1.30 mg/dL Glomerular Filtration Rate Calc 9 >90 mL/min BUN/Creatinine Ratio 5.7 L 10.0-20.0 Serum Glucose 130 H 74-106 mg/dL Calcium Level 10.0 8.7-10.4 mg/dL Magnesium Level 2.3 1.6-2.6 mg/dL Total Bilirubin 0.4 0.2-1.0 mg/dL Aspartate Amino Transferase (AST) 13 13-40 U/L Alanine Aminotransferase (ALT) 14 7-40 U/L Alkaline Phosphatase 130 H 46-116 U/L Troponin I High Sensitivity 34 </=54 ng/L B-Type Natriuretic Peptide 2482.42 0-100 pg/mL Total Protein 7.2 5.7-8.2 g/dL Albumin 4.4 3.2-4.8 g/dL Chest x-ray pulmonary edema Assessment Assessment: End-stage renal disease on hemodialysis TTS Pulmonary edema Chest pain Hypertension Chronic hypoxic respiratory failure CAD Plan: Dialysis today and TTS Fluid restriction less than 1 L per day Kody as needed for goal hemoglobin 10 two crit 11 grams/deciliter Cardiology consult Continue phosphate binders and home medications Aspirin, statin Patient was educated on the fluid restriction Thank you very much for allowing us to participate in the care of this patient please contact if you have any questions. Plan discussed with: Patient TOMÁS RODARTE MD Dec 22, 2024 16:22
[2024-12-22 20:17] LABS: Urine Protein, UAD 3+ (Negative)
[2024-12-22 20:30] LABS: Opiate Scree,Urine Neg (NEGATIVE)
[2024-12-22 20:34] LABS: Amphetamine Screen, Urine Neg (NEGATIVE); Barbiturate Scree,Urine Neg (NEGATIVE); Benzodiazephine Screen, Urine Pos (NEGATIVE); Cannabinoid Screen, Urine Neg (NEGATIVE); Cocaine Screen, Urine Neg (NEGATIVE); Phencyclidine Screen, Urine Neg (NEGATIVE)
[2024-12-22] MEDS: ATORVASTATIN 20 MG TAB PO SCH (21:43)
[2024-12-22] MEDS: RANOLAZINE ER 500 MG TAB PO SCH (21:43)
[2024-12-23] VITALS (9 sets, daily range): BP systolic 126–152; BP diastolic 64–84; PULSE 71–107; RESP 16–19; TEMP 98.1–98.7; O2SAT 94–97
[2024-12-23] MEDS: METOPROLOL TARTRATE 50 MG TAB PO SCH (04:30)
[2024-12-23] MEDS: ASPirin-EC 81 mg tab PO SCH (06:25)
[2024-12-23] MEDS: ALLOPURINOL 100 MG TAB PO SCH (06:25)
[2024-12-23] MEDS: PANTOPRAZOLE 40 MG TAB PO SCH (06:26)
--- NOTE | 2024-12-23 09:14 | DVHPN2 ---
Reviewed: Care Plan, H&P, Labs, Medications, Previous Orders, Radiology Changes from previous H/P or p: No Changes Objective Vitals Vital Signs Date Time Temp Pulse Resp B/P (MAP) Pulse Ox O2 Delivery O2 Flow Rate FiO2 12/23/24 06:51 84 18 143/91 12/23/24 05:00 98.4 95 98.4 12/22/24 20:00 Nasal Cannula* 3 32 Intake/Output Intake and Output 12/23/24 07:00 Intake Total 0 ml Balance 0 ml Intake Oral 0 ml Medications Current Medications Medications Dose Ordered Sig/Gerard Route Start Time Stop Time Status Last Admin Dose Admin Acetaminophen 325 mg Q4HP PRN PO 12/21/24 22:15 Ondansetron HCl 4 mg Q4HP PRN IV 12/21/24 22:15 12/22/24 09:15 4 MG Furosemide 40 mg TID IV 12/22/24 06:00 12/23/24 06:18 40 MG Hydromorphone HCl 0.25 mg Q4HPRN PRN IV 12/22/24 01:30 12/23/24 06:21 0.25 MG Allopurinol 100 mg QAM PO 12/23/24 07:00 12/23/24 06:25 100 MG Amlodipine Besylate 10 mg DAILY PO 12/23/24 10:00 Aspirin 81 mg QAM PO 12/23/24 07:00 12/23/24 06:25 81 MG Calcium Acetate 667 mg TIDWM PO 12/22/24 12:00 Clopidogrel Bisulfate 75 mg DAILY PO 12/23/24 10:00 Gabapentin 100 mg TID PRN PO 12/22/24 10:30 Pantoprazole Sodium 40 mg QAM PO 12/23/24 07:00 12/23/24 06:26 40 MG Ranolazine 500 mg BID PO 12/22/24 22:00 12/22/24 21:43 500 MG Atorvastatin Calcium 40 mg HS PO 12/22/24 22:00 12/22/24 21:43 40 MG Isosorbide Mononitrate 60 mg DAILY PO 12/23/24 10:00 Ergocalciferol 50,000 unit Q7D PO 12/22/24 10:45 12/22/24 15:23 50,000 UNIT Metoprolol Tartrate 50 mg BID PO 12/23/24 04:00 12/23/24 04:30 50 MG Clonidine HCl 0.1 mg Q4HP PRN PO 12/23/24 04:00 Laboratory Results Laboratory Tests 12/22/24 03:28 12/22/24 14:17 Urinalysis Test 12/22/24 20:04 Urine Color Light-yellow (Yellow) Urine Clarity Clear (Clear) Urine pH 8.5 (5.0-9.0) Urine Specific [place] 1.010 (1.001-1.035) Urine Protein 3+ (Negative) H Urine Ketones Negative (Negative) Urine Blood Negative /uL (Negative) Urine Nitrite Negative (Negative) Urine Bilirubin Negative (Negative) Urine Urobilinogen Normal mg/dL (Negative) Urine Leukocyte Esterase Negative /uL (Negative) Urine RBC 1 /hpf (0 - 3) Urine Microscopic WBC 1 /HPF (0-3) Urine Squamous Epithelial Cells Few /hpf (<5) Urine Bacteria None seen /hpf (None Seen) Urine Glucose 2+ mg/dL (Normal) H Labs and/or images reviewed: Labs reviewed by me, Image(s) reviewed by me Assessment/Plan Assessment/Plan Acute on chronic respiratory failure 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 Byrd appreciated Hyperkalemia History of vertebral fractures and chronic back pain History of osteomyelitis of lumbar vertebra s/p resection Normocytic anemia - probably secondary to ESRD Hypertension Dyslipidemia Diabetes Time Spent 70 minutes Advanced care planning time 20 minutes Patient is full code Plan discussed with: Patient My Orders Orders - SHARMIN AN MD Procedure Category Date Status Time Urine Bacterial GAETANO 12/23/24 In Process Culture 01:00 Date of Service: Dec 23, 2024 Billing Provider: SHARMIN AN MD Common Visit Codes: [id number] INP/OBS CARE(HIGH) SHARMIN AN MD Dec 23, 2024 09:14
[2024-12-23] MEDS: GABAPENTIN 100 MG CAP PO SCH (09:30)
[2024-12-23] MEDS: CLOPIDOGREL BISULFATE 75 MG TAB PO SCH (10:05)
[2024-12-23] MEDS: ISOSORBIDE MONONITRATE ER 60 MG TAB PO SCH (11:28)
--- NOTE | 2024-12-23 15:54 | DVHPN2 ---
Progress Note - Dictate Date Seen: Dec 23, 2024 Has the PT tested + for MRSA If YES, has PT been informed?: No Medical Necessity Reason Pt with a Central, PICC or Fol: No Subjective His dyspnea is significantly improved compared to yesterday lower extremity edema persists. vital signs Vital Sign Date Time Temp Pulse Resp B/P (MAP) Pulse Ox O2 Delivery O2 Flow Rate FiO2 12/23/24 14:37 142/52 12/23/24 14:01 98.3 81 18 95 98.3 12/23/24 08:00 Nasal Cannula* 3 32 Total Intake and Output 12/22/24 12/22/24 12/23/24 15:00 23:00 07:00 Intake Total 0 ml Balance 0 ml medications Current Medications Medications Dose Ordered Sig/Gerard Route Start Time Stop Time Status Last Admin Dose Admin Acetaminophen 325 mg Q4HP PRN PO 12/21/24 22:15 Ondansetron HCl 4 mg Q4HP PRN IV 12/21/24 22:15 12/22/24 09:15 4 MG Furosemide 40 mg TID IV 12/22/24 06:00 12/23/24 14:37 40 MG Hydromorphone HCl 0.25 mg Q4HPRN PRN IV 12/22/24 01:30 12/23/24 11:27 0.25 MG Allopurinol 100 mg QAM PO 12/23/24 07:00 12/23/24 06:25 100 MG Amlodipine Besylate 10 mg DAILY PO 12/23/24 10:00 12/23/24 10:06 10 MG Aspirin 81 mg QAM PO 12/23/24 07:00 12/23/24 06:25 81 MG Calcium Acetate 667 mg TIDWM PO 12/22/24 12:00 12/23/24 10:08 667 MG Clopidogrel Bisulfate 75 mg DAILY PO 12/23/24 10:00 12/23/24 10:05 75 MG Pantoprazole Sodium 40 mg QAM PO 12/23/24 07:00 12/23/24 06:26 40 MG Ranolazine 500 mg BID PO 12/22/24 22:00 12/23/24 14:38 500 MG Atorvastatin Calcium 40 mg HS PO 12/22/24 22:00 12/22/24 21:43 40 MG Isosorbide Mononitrate 60 mg DAILY PO 12/23/24 10:00 12/23/24 11:28 60 MG Ergocalciferol 50,000 unit Q7D PO 12/22/24 10:45 12/22/24 15:23 50,000 UNIT Metoprolol Tartrate 50 mg BID PO 12/23/24 04:00 12/23/24 10:07 50 MG Clonidine HCl 0.1 mg Q4HP PRN PO 12/23/24 04:00 Gabapentin 100 mg TID PO 12/23/24 09:30 12/23/24 15:08 100 MG objective HEENT: No evidence of JVD, no oral ulcers. Pulmonary: Crackles at the bases right more than left on auscultation bilaterally Cardiovascular S1-S2, no S3 or S4 Abdomen: Bowel sounds positive, soft no rebound tenderness Skin: No rash Neurological: Alert, oriented, no focal weakness Extremities: 1+ pitting edema bilateral lower legs laboratory and microbiology Laboratory Tests 12/22/24 14:17 12/22/24 03:28 Test 12/22/24 03:28 Range/Units Serum Glucose 127 H 74-106 mg/dL Assessment/Plan Assessment: End-stage renal disease on hemodialysis TTS Pulmonary edema, improving Fluid overload, improving Chest pain Hypertension Acute on Chronic hypoxic respiratory failure CAD Plan: Extra treatment tomorrow to optimize fluid balance; then TTS Fluid restriction less than 1 L per day Kody as needed for goal hemoglobin 10 two crit 11 grams/deciliter Cardiology consult Continue phosphate binders and home medications Aspirin, statin Patient endorses as of now no one to take him to the dialysis center he is trying to arrange transportation to and from dialysis by his son. Patient was educated on the fluid restriction Thank you very much for allowing us to participate in the care of this patient please contact if you have any questions. Dietary Evaluation Review Recommendations by RD: Dietary education by RD Comments: 1) Add 45g CCHO renal restriction to cardiac diet 2) Refer to outpatient RD/CDCES for weight management 3) Follow-up with nephrology, cardiology, and pulmonology 4) Continue to monitor I&O, labs, and skin integrity Expected Outcomes/Goals: 1) appetite and labs to improve 2) gradual wt loss 3) f/u in 3-5 days Plan discussed with: Patient TOMÁS RODARTE MD Dec 23, 2024 15:53
--- NOTE | 2024-12-23 19:12 | DVHINCON2 ---
Date of service: Dec 23, 2024 History of Present Illness 59 yo M with cad s/p pci, esrd on hd, htn, hl admitted for sob. trops are -. pt had LHC in feb 2024 Past Medical History reviewed Family History: Diabetes mellitus G8 MOTHER, Onset:Unknown G8 FATHER, Onset:Unknown Fibromyalgia G8 MOTHER Hypertension G8 MOTHER G8 FATHER, Onset:Unknown Allergies: Coded Allergies: NO KNOWN ALLERGIES (Unverified , 12/21/24) Home Meds Active Scripts Hydrocodone-Acetaminophen (Hydrocodone Bitartrate/AC 10-325 mg) 1 Tab Tab, 1 TAB PO QID PRN, #40 TAB Prov:SHARMIN AN MD 10/30/24 Levofloxacin Hemihydrate (LEVOFLOXACIN) 500 Mg Tab, 1 TAB PO DAILY for 4 Days, #4 TAB Prov:LAURE TELLO 10/27/24 Hydromorphone Hcl (Dilaudid) 2 Mg Tab, 1 TAB PO TID PRN, #40 TAB Prov:SHARMIN AN MD 08/16/24 Cyclobenzaprine Hcl (Cyclobenzaprine Hcl) 5 Mg Tab, 1 TAB PO TID PRN, #30 TAB Prov:SHARMIN AN MD 07/30/24 Hydromorphone Hcl (Dilaudid) 2 Mg Tab, 1 TAB PO TID PRN, #40 TAB Prov:SHARMIN AN MD 07/30/24 Clopidogrel Bisulfate (CLOPIDOGREL) 75 Mg Tab, 75 MG PO DAILY for 30 Days, #30 TAB Prov:LEÓN COLLINS MD 08/16/23 Reported Medications Patiromer Sorbitex Calcium (Veltassa) 8.4 Gm Pow, 1 PKT PO DAILY 07/12/24 Colchicine (Mitigare) 0.6 Mg Cap, 0.6 MG PO PRN for for gout, CAP 07/12/24 Albuterol Sulfate (VENTOLIN MDI) 90 Mcg Ih, 2 PUFF IN Q6HPRN PRN for wheezing, INH 07/12/24 Losartan Potassium (Cozaar) 100 Mg Tab, 300 MG PO DAILY, TAB 07/12/24 Ipratropium-Albuterol (Ipratropium [place]/Albut) 1 Jacob Jacob, 1 JACOB IN QIDPRN PRN for SHORTNESS OF BREATH, ML 07/12/24 Clonidine Hydrochloride (Clonidine Hcl) 0.1 Mg Tab, 1 TAB PO PRN for SBP>160 04/17/24 Furosemide (Lasix) 40 Mg Tab, 40 MG PO DAILY, TAB 03/04/24 Amlodipine Besylate (NORVASC TABLET) 5 Mg Tb, 2 TAB PO DAILY, #30 TAB 5 Refills 03/04/24 Isosorbide Mononitrate (Isosorbide Mononitrate Er) 30 Mg Tab, 60 MG PO DAILY for CAD 09/19/23 Calcium Acetate (Phosphate Bin (Calcium Acetate) 667 Mg Cap, 667 MG PO TIDWM for DIALYSIS, MG 09/19/23 Atorvastatin Calcium (ATORVASTATIN CALCIUM) 40 Mg Tab, 1 TAB PO DAILY for HIGH CHOLESTEROL, #30 TAB 5 Refills 09/19/23 Ijzyokuyyi-Vdkbhgnxwniznd-Ypfs (Breztri Aerosphere 160-9-4.8 Mcg/Act) 1 Aer Aer, 1 AER IN BID for COPD, AER 09/19/23 Albuterol Sulfate (Ventolin) 2.5 Mg/3 Ml Nb, 2.5 MG NEB Q4HP PRN for SHORTNESS OF BREATH, INH 09/19/23 Ranolazine (Ranolazine ER) 500 Mg Tab, 500 MG PO BID for CAD, TAB 09/19/23 Diazepam (VALIUM TABLET) 5 Mg Tb, 2 TAB PO PRN PRN for onset seizure, TAB 08/14/23 Hydralazine Hcl (Hydralazine Hcl) 100 Mg Tab, 1 TAB PO TID, #90 TAB 5 Refills 08/14/23 Gabapentin (Gabapentin) 100 Mg Cap, 2 CAP PO TID PRN for onset seizure , #90 CAP 2 Refills Take with diazepam. 08/14/23 Pantoprazole Sodium Sesquihydr (Protonix) 40 Mg Tab, 40 MG PO QAM, #30 TAB 08/14/23 Aspirin (Aspir-81) 81 Mg Tab, 1 TAB PO QAM, #30 TAB 5 Refills 08/14/23 Allopurinol (ZYLOPRIM TABLET) 100 Mg Tb, 1 TAB PO QAM, #30 TAB 5 Refills 08/14/23 Current Medications Current Medications Medications (Trade) Dose Ordered Sig/Gerard Route PRN Reason Start Time Stop Time Status Last Admin Allopurinol (Zyloprim Tablet) 100 mg QAM PO 12/23/24 07:00 12/23/24 06:25 Amlodipine Besylate (Norvasc Tablet) 10 mg DAILY PO 12/23/24 10:00 12/23/24 10:06 Aspirin (Ecotrin Enteric Coated Tablet) 81 mg QAM PO 12/23/24 07:00 12/23/24 06:25 Clopidogrel Bisulfate (Plavix) 75 mg DAILY PO 12/23/24 10:00 12/23/24 10:05 Pantoprazole Sodium (Protonix Tablet) 40 mg QAM PO 12/23/24 07:00 12/23/24 06:26 Ranolazine (Ranexa ER) 500 mg BID PO 12/22/24 22:00 12/23/24 14:38 Atorvastatin Calcium (Lipitor) 40 mg HS PO 12/22/24 22:00 12/22/24 21:43 Isosorbide Mononitrate (Imdur Er Tablet) 60 mg DAILY PO 12/23/24 10:00 12/23/24 11:28 Metoprolol Tartrate (Lopressor Tablet) 50 mg BID PO 12/23/24 04:00 12/23/24 10:07 Clonidine HCl (Catapres Tablet) 0.1 mg Q4HP PRN PO SBP>150 12/23/24 04:00 Gabapentin (Neurontin Capsule) 100 mg TID PO 12/23/24 09:30 12/23/24 15:08 Review of Systems 10 pt ros otherwise negative Vital Signs Vital Signs Date Time Temp Pulse Resp B/P (MAP) Pulse Ox O2 Delivery O2 Flow Rate FiO2 12/23/24 17:08 98.3 73 17 126/64 (84) 97 98.3 12/23/24 08:00 Nasal Cannula* 3 32 Physical Exam nad s1 s2 rrr ctab soft nt/nd no edema hx of LUE AVF Labs/Diagnostic Data Labs Test 12/22/24 20:04 12/22/24 14:17 12/22/24 03:28 12/21/24 23:05 Range/Units Urine Color Light-yellow Yellow Urine Clarity Clear Clear Urine pH 8.5 5.0-9.0 Urine Specific [place] 1.010 1.001-1.035 Urine Protein 3+ H Negative Urine Ketones Negative Negative Urine Blood Negative Negative /uL Urine Nitrite Negative Negative Urine Bilirubin Negative Negative Urine Urobilinogen Normal Negative mg/dL Urine Leukocyte Esterase Negative Negative /uL Urine RBC 1 0 - 3 /hpf Urine Microscopic WBC 1 0-3 /HPF Urine Squamous Epithelial Cells Few <5 /hpf Urine Bacteria None seen None Seen /hpf Urine Glucose 2+ H Normal mg/dL Urine Opiates Screen Neg NEGATIVE Urine Fentanyl Screen Neg NEGATIVE Urine Barbiturates Screen Neg NEGATIVE Urine Phencyclidine Screen Neg NEGATIVE Urine Amphetamines Screen Neg NEGATIVE Urine Benzodiazepines Screen Pos NEGATIVE Urine Cocaine Screen Neg NEGATIVE Urine Cannabinoids Screen Neg NEGATIVE Potassium Level 5.4 H 3.5-5.1 mmol/L White Blood Count 7.4 4.4-10.8 10^3/uL Red Blood Count 3.56 L 4.5-5.90 10^6/uL Hemoglobin 10.8 L 13.5-17.5 g/dL Hematocrit 32.6 L 41.0-53.0 % Mean Corpuscular Volume 91.7 80.0-100.0 fL Mean Corpuscular Hemoglobin 30.5 28.0-32.0 pg Mean Corpuscular Hemoglobin Concent 33.2 32.0-36.0 g/dL Red Cell Distribution Width 18.5 H 11.8-14.3 % Platelet Count 97 L 140-450 10^3/uL Mean Platelet Volume 7.4 6.9-10.8 fL Neutrophils (%) (Auto) 75.5 37.0-80.0 % Lymphocytes (%) (Auto) 8.4 L 10.0-50.0 % Monocytes (%) (Auto) 10.4 0.0-12.0 % Eosinophils (%) (Auto) 4.9 0.0-7.0 % Basophils (%) (Auto) 0.8 0.0-2.0 % Neutrophils # (Auto) 5.6 1.6-8.6 10 ^3/uL Lymphocytes # (Auto) 0.6 0.4-5.4 10 ^3/uL Monocytes # (Auto) 0.8 0-1.3 10 ^3/uL Eosinophils # (Auto) 0.4 0-0.8 10 ^3/uL Basophils # (Auto) 0.1 0-0.2 10 ^3/uL Nucleated Red Blood Cells 0.0 % Erythrocyte Sedimentation Rate 25 H 0-20 mm/hr Sodium Level 134 L 136-145 mmol/L Chloride Level 93 L 98-107 mmol/L Carbon Dioxide Level 30 20-31 mmol/L Anion Gap 11 5-15 Blood Urea Nitrogen 40 H 9-23 mg/dL Creatinine 6.93 H 0.700-1.30 mg/dL Glomerular Filtration Rate Calc 8 >90 mL/min BUN/Creatinine Ratio 5.8 L 10.0-20.0 Serum Glucose 127 H 74-106 mg/dL Calcium Level 9.8 8.7-10.4 mg/dL Total Bilirubin 0.5 0.2-1.0 mg/dL Aspartate Amino Transferase (AST) 13 13-40 U/L Alanine Aminotransferase (ALT) 13 7-40 U/L Alkaline Phosphatase 124 H 46-116 U/L C-Reactive Protein High Sensitivity 1.45 H <1.0 mg/dL Total Protein 7.1 5.7-8.2 g/dL Albumin 4.4 3.2-4.8 g/dL Lactic Acid Level 1.1 0.4-2.0 mmol/L Phosphorus Level 4.9 2.4-5.1 mg/dL Magnesium Level 2.2 1.6-2.6 mg/dL Troponin I High Sensitivity 35 </=54 ng/L Triglycerides Level 64 < 150 mg/dL Cholesterol Level 143 < 200 mg/dL LDL Cholesterol 48 < 100 mg/dL HDL Cholesterol 80 H 40-59 mg/dL Vitamin B12 Level 600 211-911 pg/mL Vitamin D 25-Hydroxy 14.4 L 30.0-100 ng/mL Thyroid Stimulating Hormone (TSH) 1.78 0.55-4.78 uIU/mL Test 12/21/24 19:59 Range/Units Prothrombin Time 11.9 H 9.3-11.8 sec Prothrombin Time INR 1.14 0.9-1.15 Activated Partial Thromboplast Time 35.0 H 24.5-34.5 SEC B-Type Natriuretic Peptide 2482.42 0-100 pg/mL Microbiology Date/Time Source Procedure Growth Status 12/22/24 23:06 Nose MRSA Screen - Final Complete Assessment r/o acs sob diastolic HF esrd on hd cad s/p pci Plan/Recommendation negative trops negative cath 2023 cont dapt HD per renal bp control cont tele Plan discussed with: Patient WINTER GUERRA MD Dec 23, 2024 19:12
[2024-12-24] VITALS (8 sets, daily range): BP systolic 100–166; BP diastolic 37–84; PULSE 62–86; RESP 15–20; TEMP 97.6–98.6; O2SAT 94–99
[2024-12-24] MEDS: SODIUM CHL 0.9% 1000 ML BAG XX ONE (07:00)
[2024-12-24 07:02] LABS: Hematocrit 30.2 % (41.0-53.0); Hemoglobin 10.0 g/dL (13.5-17.5); Mean Corpuscular Hemoglobin 30.3 pg (28.0-32.0); Mean Corpuscular Volume 91.3 fL (80.0-100.0); Nucleated Red Blood Cells % 0.1 %
[2024-12-24 07:11] LABS: Anion Gap 13 (5-15); Carbon Dioxide 30 mmol/L (20-31); Potassium 4.9 mmol/L (3.5-5.1)
[2024-12-24 07:12] LABS: Calcium 9.1 mg/dL (8.7-10.4)
[2024-12-24 07:17] LABS: BUN/Creatinine Ratio 5.9 (10.0-20.0)
[2024-12-24 07:18] LABS: Blood Urea Nitrogen 42 mg/dL (9-23); Chloride 93 mmol/L (98-107); Glucose 201 mg/dL (74-106); Sodium 136 mmol/L (136-145)
--- NOTE | 2024-12-24 09:55 | DVHPN2 ---
Reviewed: Care Plan, H&P, Labs, Medications, Previous Orders, Radiology Changes from previous H/P or p: No Changes Objective Vitals Vital Signs Date Time Temp Pulse Resp B/P (MAP) Pulse Ox O2 Delivery O2 Flow Rate FiO2 12/24/24 09:21 70 20 120/65 12/24/24 08:39 97.6 99 97.6 12/24/24 08:00 Nasal Cannula* 3 32 Intake/Output Intake and Output 12/24/24 07:00 Intake Total 1130 ml Balance 1130 ml Intake Oral 1130 ml # Voids 6 Medications Current Medications Medications Dose Ordered Sig/Gerard Route Start Time Stop Time Status Last Admin Dose Admin Acetaminophen 325 mg Q4HP PRN PO 12/21/24 22:15 Ondansetron HCl 4 mg Q4HP PRN IV 12/21/24 22:15 12/22/24 09:15 4 MG Furosemide 40 mg TID IV 12/22/24 06:00 12/24/24 04:59 40 MG Hydromorphone HCl 0.25 mg Q4HPRN PRN IV 12/22/24 01:30 12/24/24 09:21 0.25 MG Allopurinol 100 mg QAM PO 12/23/24 07:00 12/24/24 05:00 100 MG Amlodipine Besylate 10 mg DAILY PO 12/23/24 10:00 12/24/24 08:47 10 MG Aspirin 81 mg QAM PO 12/23/24 07:00 12/24/24 05:00 81 MG Calcium Acetate 667 mg TIDWM PO 12/22/24 12:00 12/24/24 08:47 667 MG Clopidogrel Bisulfate 75 mg DAILY PO 12/23/24 10:00 12/24/24 08:47 75 MG Pantoprazole Sodium 40 mg QAM PO 12/23/24 07:00 12/24/24 05:00 40 MG Ranolazine 500 mg BID PO 12/22/24 22:00 12/23/24 20:44 500 MG Atorvastatin Calcium 40 mg HS PO 12/22/24 22:00 12/23/24 20:45 40 MG Isosorbide Mononitrate 60 mg DAILY PO 12/23/24 10:00 12/23/24 11:28 60 MG Ergocalciferol 50,000 unit Q7D PO 12/22/24 10:45 12/22/24 15:23 50,000 UNIT Metoprolol Tartrate 50 mg BID PO 12/23/24 04:00 12/23/24 20:45 50 MG Clonidine HCl 0.1 mg Q4HP PRN PO 12/23/24 04:00 Gabapentin 100 mg TID PO 12/23/24 09:30 12/24/24 05:00 100 MG Laboratory Results Laboratory Tests 12/24/24 05:04 Chemistry Test 12/24/24 05:04 Calcium Level 9.1 mg/dL (8.7-10.4) Urinalysis Test 12/22/24 20:04 Urine Color Light-yellow (Yellow) Urine Clarity Clear (Clear) Urine pH 8.5 (5.0-9.0) Urine Specific [place] 1.010 (1.001-1.035) Urine Protein 3+ (Negative) H Urine Ketones Negative (Negative) Urine Blood Negative /uL (Negative) Urine Nitrite Negative (Negative) Urine Bilirubin Negative (Negative) Urine Urobilinogen Normal mg/dL (Negative) Urine Leukocyte Esterase Negative /uL (Negative) Urine RBC 1 /hpf (0 - 3) Urine Microscopic WBC 1 /HPF (0-3) Urine Squamous Epithelial Cells Few /hpf (<5) Urine Bacteria None seen /hpf (None Seen) Urine Glucose 2+ mg/dL (Normal) H Microbiology Microbiology Date/Time Source Procedure Growth Status 12/22/24 23:06 Nose MRSA Screen - Final Complete 12/22/24 20:04 Voided Urine Urine Culture - Preliminary Resulted Labs and/or images reviewed: Labs reviewed by me, Image(s) reviewed by me Assessment/Plan Assessment/Plan Acute on chronic respiratory failure 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 Byrd appreciated Hyperkalemia History of vertebral fractures and chronic back pain History of osteomyelitis of lumbar vertebra s/p resection Normocytic anemia - probably secondary to ESRD Hypertension Dyslipidemia Diabetes Time Spent 55 minutes Advanced care planning time 20 minutes Patient is full code Plan discussed with: Patient Date of Service: Dec 24, 2024 Billing Provider: SHARMIN AN MD Common Visit Codes: [id number] INP/OBS CARE(HIGH) SHARMIN AN MD Dec 24, 2024 09:55
--- NOTE | 2024-12-24 11:36 | DVHPN2 ---
Progress Note Date Seen: Dec 24, 2024 Has the PT tested + for MRSA If YES, has PT been informed?: No Medical Necessity Reason Pt with a Central, PICC or Fol: No Subjective Patient reports: Feels better Objective vital signs Vital Sign Date Time Temp Pulse Resp B/P (MAP) Pulse Ox O2 Delivery O2 Flow Rate FiO2 12/24/24 09:21 70 20 120/65 12/24/24 08:39 97.6 99 97.6 12/24/24 08:00 Nasal Cannula* 3 32 Total Intake and Output 12/23/24 12/23/24 12/24/24 15:00 23:00 07:00 Intake Total 230 ml 600 ml 300 ml Balance 230 ml 600 ml 300 ml medications Current Medications Medications Dose Ordered Sig/Gerard Route Start Time Stop Time Status Last Admin Dose Admin Acetaminophen 325 mg Q4HP PRN PO 12/21/24 22:15 Ondansetron HCl 4 mg Q4HP PRN IV 12/21/24 22:15 12/22/24 09:15 4 MG Furosemide 40 mg TID IV 12/22/24 06:00 12/24/24 04:59 40 MG Hydromorphone HCl 0.25 mg Q4HPRN PRN IV 12/22/24 01:30 12/24/24 09:21 0.25 MG Allopurinol 100 mg QAM PO 12/23/24 07:00 12/24/24 05:00 100 MG Amlodipine Besylate 10 mg DAILY PO 12/23/24 10:00 12/24/24 08:47 10 MG Aspirin 81 mg QAM PO 12/23/24 07:00 12/24/24 05:00 81 MG Calcium Acetate 667 mg TIDWM PO 12/22/24 12:00 12/24/24 08:47 667 MG Clopidogrel Bisulfate 75 mg DAILY PO 12/23/24 10:00 12/24/24 08:47 75 MG Pantoprazole Sodium 40 mg QAM PO 12/23/24 07:00 12/24/24 05:00 40 MG Ranolazine 500 mg BID PO 12/22/24 22:00 12/23/24 20:44 500 MG Atorvastatin Calcium 40 mg HS PO 12/22/24 22:00 12/23/24 20:45 40 MG Isosorbide Mononitrate 60 mg DAILY PO 12/23/24 10:00 12/23/24 11:28 60 MG Ergocalciferol 50,000 unit Q7D PO 12/22/24 10:45 12/22/24 15:23 50,000 UNIT Metoprolol Tartrate 50 mg BID PO 12/23/24 04:00 12/23/24 20:45 50 MG Clonidine HCl 0.1 mg Q4HP PRN PO 12/23/24 04:00 Gabapentin 100 mg TID PO 12/23/24 09:30 12/24/24 05:00 100 MG Examination: GENERAL:Abnormal, HEENT:Abnormal, LUNGS:Abnormal, CVS:Abnormal, ABDOMEN:Abnormal laboratory and microbiology Laboratory Tests 12/24/24 05:04 Test 12/24/24 05:04 Range/Units Serum Glucose 201 H 74-106 mg/dL Microbiology Date/Time Source Procedure Growth Status 12/22/24 23:06 Nose MRSA Screen - Final Complete 12/22/24 20:04 Voided Urine Urine Culture - Preliminary Resulted Problem List/Assessment/Plan Problem List/Assessment/Plan cad esrd on hd htn HL obesity reviewed previous LHC, patent vessels cont dapt cont bp meds dc home when medically stable outpt fu with me Plan discussed with: Patient Dietary Evaluation Review Recommendations by RD: Dietary education by RD Comments: 1) Add 45g CCHO renal restriction to cardiac diet 2) Refer to outpatient RD/CDCES for weight management 3) Follow-up with nephrology, cardiology, and pulmonology 4) Continue to monitor I&O, labs, and skin integrity Expected Outcomes/Goals: 1) appetite and labs to improve 2) gradual wt loss 3) f/u in 3-5 days Date of Service: Dec 24, 2024 Billing Provider: WINTER GUERRA MD Common Visit Codes: NOT BILLABLE WINTER GUERRA MD Dec 24, 2024 11:36
--- NOTE | 2024-12-24 17:23 | DVHPN2 ---
Progress Note - Dictate Date Seen: Dec 24, 2024 Has the PT tested + for MRSA If YES, has PT been informed?: No Medical Necessity Reason Pt with a Central, PICC or Fol: No Subjective Undergoing dialysis. vital signs Vital Sign Date Time Temp Pulse Resp B/P (MAP) Pulse Ox O2 Delivery O2 Flow Rate FiO2 12/24/24 16:39 98.6 70 18 157/84 (108) 96 98.6 12/24/24 08:00 Nasal Cannula* 3 32 Total Intake and Output 12/23/24 12/23/24 12/24/24 15:00 23:00 07:00 Intake Total 230 ml 600 ml 300 ml Balance 230 ml 600 ml 300 ml medications Current Medications Medications Dose Ordered Sig/Gerard Route Start Time Stop Time Status Last Admin Dose Admin Acetaminophen 325 mg Q4HP PRN PO 12/21/24 22:15 Ondansetron HCl 4 mg Q4HP PRN IV 12/21/24 22:15 12/22/24 09:15 4 MG Furosemide 40 mg TID IV 12/22/24 06:00 12/24/24 04:59 40 MG Hydromorphone HCl 0.25 mg Q4HPRN PRN IV 12/22/24 01:30 12/24/24 13:33 0.25 MG Allopurinol 100 mg QAM PO 12/23/24 07:00 12/24/24 05:00 100 MG Amlodipine Besylate 10 mg DAILY PO 12/23/24 10:00 12/24/24 08:47 10 MG Aspirin 81 mg QAM PO 12/23/24 07:00 12/24/24 05:00 81 MG Calcium Acetate 667 mg TIDWM PO 12/22/24 12:00 12/24/24 12:08 667 MG Clopidogrel Bisulfate 75 mg DAILY PO 12/23/24 10:00 12/24/24 08:47 75 MG Pantoprazole Sodium 40 mg QAM PO 12/23/24 07:00 12/24/24 05:00 40 MG Ranolazine 500 mg BID PO 12/22/24 22:00 12/23/24 20:44 500 MG Atorvastatin Calcium 40 mg HS PO 12/22/24 22:00 12/23/24 20:45 40 MG Isosorbide Mononitrate 60 mg DAILY PO 12/23/24 10:00 12/23/24 11:28 60 MG Ergocalciferol 50,000 unit Q7D PO 12/22/24 10:45 12/22/24 15:23 50,000 UNIT Metoprolol Tartrate 50 mg BID PO 12/23/24 04:00 12/23/24 20:45 50 MG Clonidine HCl 0.1 mg Q4HP PRN PO 12/23/24 04:00 Gabapentin 100 mg TID PO 12/23/24 09:30 12/24/24 13:33 100 MG objective HEENT: No evidence of JVD, no oral ulcers. Pulmonary: Crackles at the bases right more than left on auscultation bilaterally Cardiovascular S1-S2, no S3 or S4 Abdomen: Bowel sounds positive, soft no rebound tenderness Skin: No rash Neurological: Alert, oriented, no focal weakness Extremities: 1+ pitting edema bilateral lower legs laboratory and microbiology Laboratory Tests 12/24/24 05:04 Test 12/24/24 05:04 Range/Units Serum Glucose 201 H 74-106 mg/dL Problem List End-stage renal disease Pulmonary edema, improving Fluid overload, improving Chest pain Hypertension Acute on Chronic hypoxic respiratory failure CAD Assessment/Plan Hemodialysis on Tuesday schedule. Target ultrafiltration of 4.5 L today. Fluid restriction less than 1 L per day Dietary Evaluation Review Recommendations by RD: Dietary education by RD Comments: 1) Add 45g CCHO renal restriction to cardiac diet 2) Refer to outpatient RD/CDCES for weight management 3) Follow-up with nephrology, cardiology, and pulmonology 4) Continue to monitor I&O, labs, and skin integrity Expected Outcomes/Goals: 1) appetite and labs to improve 2) gradual wt loss 3) f/u in 3-5 days Plan discussed with: NETTIE Garcia MD Dec 24, 2024 17:23
[2024-12-24] MEDS: EPOETIN ALFA-EPBX 4,000 UNIT/ML VIAL SC ONE (21:53)
[2024-12-25 01:00] VITALS: BP 156/65; PULSE 83; RESP 19; TEMP 97.6; O2SAT 95
[2024-12-25 05:00] VITALS: BP 144/78; PULSE 75; RESP 17; TEMP 98.4; O2SAT 100
[2024-12-25 08:00] VITALS: PULSE 74
[2024-12-25 08:02] VITALS: BP 121/65; PULSE 75; RESP 18; TEMP 98.4; O2SAT 95
[2024-12-25] MEDS ORDERED: OXYC-998 PO (09:36)
--- NOTE | 2024-12-25 09:43 | DVHDS2 ---
Discharge Summary Date of Admission Dec 21, 2024 at 22:15 Date of Discharge: Dec 25, 2024 Admitting Diagnosis Shortness of breath Wounds: None Labs/Diagnostic Data: Laboratory Results Test 12/24/24 05:04 12/22/24 20:04 12/22/24 03:28 12/21/24 23:05 White Blood Count 6.3 10^3/uL (4.4-10.8) Red Blood Count 3.31 10^6/uL (4.5-5.90) Hemoglobin 10.0 g/dL (13.5-17.5) Hematocrit 30.2 % (41.0-53.0) Mean Corpuscular Volume 91.3 fL (80.0-100.0) Mean Corpuscular Hemoglobin 30.3 pg (28.0-32.0) Mean Corpuscular Hemoglobin Concent 33.2 g/dL (32.0-36.0) Red Cell Distribution Width 17.8 % (11.8-14.3) Platelet Count 84 10^3/uL (140-450) Mean Platelet Volume 8.1 fL (6.9-10.8) Neutrophils (%) (Auto) 73.2 % (37.0-80.0) Lymphocytes (%) (Auto) 9.8 % (10.0-50.0) Monocytes (%) (Auto) 10.4 % (0.0-12.0) Eosinophils (%) (Auto) 5.6 % (0.0-7.0) Basophils (%) (Auto) 1.0 % (0.0-2.0) Neutrophils # (Auto) 4.6 10 ^3/uL (1.6-8.6) Lymphocytes # (Auto) 0.6 10 ^3/uL (0.4-5.4) Monocytes # (Auto) 0.7 10 ^3/uL (0-1.3) Eosinophils # (Auto) 0.4 10 ^3/uL (0-0.8) Basophils # (Auto) 0.1 10 ^3/uL (0-0.2) Nucleated Red Blood Cells 0.1 % Sodium Level 136 mmol/L (136-145) Potassium Level 4.9 mmol/L (3.5-5.1) Chloride Level 93 mmol/L (98-107) Carbon Dioxide Level 30 mmol/L (20-31) Anion Gap 13 (5-15) Blood Urea Nitrogen 42 mg/dL (9-23) Creatinine 7.09 mg/dL (0.700-1.30) Glomerular Filtration Rate Calc 8 mL/min (>90) BUN/Creatinine Ratio 5.9 (10.0-20.0) Serum Glucose 201 mg/dL (74-106) Calcium Level 9.1 mg/dL (8.7-10.4) Hepatitis B Surface Antigen Negative (Negative) Urine Color Light-yellow (Yellow) Urine Clarity Clear (Clear) Urine pH 8.5 (5.0-9.0) Urine Specific [place] 1.010 (1.001-1.035) Urine Protein 3+ (Negative) Urine Ketones Negative (Negative) Urine Blood Negative /uL (Negative) Urine Nitrite Negative (Negative) Urine Bilirubin Negative (Negative) Urine Urobilinogen Normal mg/dL (Negative) Urine Leukocyte Esterase Negative /uL (Negative) Urine RBC 1 /hpf (0 - 3) Urine Microscopic WBC 1 /HPF (0-3) Urine Squamous Epithelial Cells Few /hpf (<5) Urine Bacteria None seen /hpf (None Seen) Urine Glucose 2+ mg/dL (Normal) Urine Opiates Screen Neg (NEGATIVE) Urine Fentanyl Screen Neg (NEGATIVE) Urine Barbiturates Screen Neg (NEGATIVE) Urine Phencyclidine Screen Neg (NEGATIVE) Urine Amphetamines Screen Neg (NEGATIVE) Urine Benzodiazepines Screen Pos (NEGATIVE) Urine Cocaine Screen Neg (NEGATIVE) Urine Cannabinoids Screen Neg (NEGATIVE) Erythrocyte Sedimentation Rate 25 mm/hr (0-20) Total Bilirubin 0.5 mg/dL (0.2-1.0) Aspartate Amino Transferase (AST) 13 U/L (13-40) Alanine Aminotransferase (ALT) 13 U/L (7-40) Alkaline Phosphatase 124 U/L (46-116) C-Reactive Protein High Sensitivity 1.45 mg/dL (<1.0) Total Protein 7.1 g/dL (5.7-8.2) Albumin 4.4 g/dL (3.2-4.8) Lactic Acid Level 1.1 mmol/L (0.4-2.0) Phosphorus Level 4.9 mg/dL (2.4-5.1) Magnesium Level 2.2 mg/dL (1.6-2.6) Troponin I High Sensitivity 35 ng/L (</=54) Triglycerides Level 64 mg/dL (< 150) Cholesterol Level 143 mg/dL (< 200) LDL Cholesterol 48 mg/dL (< 100) HDL Cholesterol 80 mg/dL (40-59) Vitamin B12 Level 600 pg/mL (211-911) Vitamin D 25-Hydroxy 14.4 ng/mL (30.0-100) Thyroid Stimulating Hormone (TSH) 1.78 uIU/mL (0.55-4.78) Test 12/21/24 19:59 Prothrombin Time 11.9 sec (9.3-11.8) Prothrombin Time INR 1.14 (0.9-1.15) Activated Partial Thromboplast Time 35.0 SEC (24.5-34.5) B-Type Natriuretic Peptide 2482.42 pg/mL (0-100) Other Laboratory Tests 12/24/24 05:04 Brief Hx & Hospital Course: 59-year-old male with multiple medical problems frequent admissions with a history of ESRD on hemodialysis chronic vertebral fractures chronic back pain history of osteomyelitis lumbar spine status post resection hypotension hypercholesterolemia diabetes severe pulmonary hypertension congestive heart failure 45 percent ejection fraction use of home oxygen came in complaining of shortness of breaths of CH. Admitted for exacerbation of CHF and fluid overload. Received hemodialysis by Dr. Sarkar, seen by Cardiology Dr. Cooper. Continued home medications for comorbid conditions received Lasix. Received pain medications feels better and being discharged home. Prescription for oxycodone for his chronic back pain transmitted to pharmacy reviewed all his home medications. He will continue all his home medications and follow up with the Nephrology for dialysis and Cardiology and primary Dr. general condition stable but poor at the time of discharge. Consults/Reason for consult Cardiology Dr. Cooper Nephrology Dr. 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 pharmacy Scheduled Allopurinol (Zyloprim Tablet), 1 TAB PO QAM, (Reported) Amlodipine Besylate (Norvasc Tablet), 2 TAB PO DAILY, (Reported) Aspirin (Aspir-81), 1 TAB PO QAM, (Reported) Atorvastatin Calcium (Atorvastatin Calcium), 1 TAB PO DAILY, (Reported) Pxchjnchkh-Awqkvapwjpfthl-Fwwq (Breztri Aerosphere 160-9-4.8 Mcg/Act), 1 AER IN BID, (Reported) Calcium Acetate (Phosphate Bin (Calcium Acetate), 667 MG PO TIDWM, (Reported) Clopidogrel Bisulfate (Clopidogrel), 75 MG PO DAILY Furosemide (Lasix), 40 MG PO DAILY, (Reported) Hydralazine Hcl (Hydralazine Hcl), 1 TAB PO TID, (Reported) Isosorbide Mononitrate (Isosorbide Mononitrate Er), 60 MG PO DAILY, (Reported) Levofloxacin Hemihydrate (Levofloxacin), 1 TAB PO DAILY Losartan Potassium (Cozaar), 300 MG PO DAILY, (Reported) Pantoprazole Sodium Sesquihydr (Protonix), 40 MG PO QAM, (Reported) Patiromer Sorbitex Calcium (Veltassa), 1 PKT PO DAILY, (Reported) Ranolazine (Ranolazine ER), 500 MG PO BID, (Reported) Scheduled PRN Albuterol Sulfate (Ventolin), 2.5 MG NEB Q4HP PRN for SHORTNESS OF BREATH, (Reported) Albuterol Sulfate (Ventolin Mdi), 2 PUFF IN Q6HPRN PRN for wheezing, (Reported) Clonidine Hydrochloride (Clonidine Hcl), 1 TAB PO for SBP>160, (Reported) Colchicine (Mitigare), 0.6 MG PO for for gout, (Reported) Cyclobenzaprine Hcl (Cyclobenzaprine Hcl), 1 TAB PO TID PRN Diazepam (Valium Tablet), 2 TAB PO PRN PRN for onset seizure, (Reported) Gabapentin (Gabapentin), 2 CAP PO TID PRN for onset seizure , (Reported) Hydrocodone-Acetaminophen (Hydrocodone Bitartrate/AC 10-325 mg), 1 TAB PO QID PRN Hydromorphone Hcl (Dilaudid), 1 TAB PO TID PRN Hydromorphone Hcl (Dilaudid), 1 TAB PO TID PRN Ipratropium-Albuterol (Ipratropium [place]/Albut), 1 JACOB IN QIDPRN PRN for SHORTNESS OF BREATH, (Reported) Oxycodone HCl (Oxycodone Hydrochloride), 10 MG PO TID PRN 39 (Time taken for discharge summary 39 minutes) Discharge Statement: "Patient was advised to return to the ER or call 911 if any headaches, dizziness, shortness of breath, chest pain, abdominal pain, bleeding, fevers, or worsening of medical condition. Patient was counseled about treatment plan, medications, possible side effects, patientverbalized understanding. All questions were answered to the best of my ability. 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 Byrd appreciated Hyperkalemia History of vertebral fractures and chronic back pain History of osteomyelitis of lumbar vertebra s/p resection Normocytic anemia - probably secondary to ESRD Hypertension Dyslipidemia Diabetes Date of Service: Dec 25, 2024 Billing Provider: SHARMIN AN MD Common Visit Codes: 85430-HTX/OBS DISCH DAY >30min SHARMIN AN MD Dec 25, 2024 09:43
[2024-12-25 12:18] VITALS: BP_SYST 136; BP_SYST 158; BP_DIAS 77; BP_DIAS 92; PULSE 68; PULSE 71; RESP 18; RESP 20; TEMP 97.6; O2SAT 95; O2SAT 97
== END 2024-12-25 12:30 | disposition home or self-care (01) | DRG 291 ==
LOC: ER 19:07 → OVERFLOW 22:15 → TELE-CENTR 12-23 00:04
PROVIDERS: ADMIT Family Medicine; ATTEND Family Medicine
PROC: 5A1D70Z Performance of Urinary Filtration, Intermittent, Less than 6 Hours Per Day (ICD-10-PCS; principal; 2024-12-22)
PROC: 5A1D70Z Performance of Urinary Filtration, Intermittent, Less than 6 Hours Per Day (ICD-10-PCS; 2024-12-24)
DX: I13.2 Hypertensive heart and chronic kidney disease with heart failure and with stage 5 chronic kidney disease, or end stage renal disease (principal); I50.43 Acute on chronic combined systolic (congestive) and diastolic (congestive) heart failure; J96.21 Acute and chronic respiratory failure with hypoxia; N18.6 End stage renal disease; I25.10 Atherosclerotic heart disease of native coronary artery without angina pectoris; E11.22 Type 2 diabetes mellitus with diabetic chronic kidney disease; E87.5 Hyperkalemia; I27.20 Pulmonary hypertension, unspecified; D64.9 Anemia, unspecified; E78.00 Pure hypercholesterolemia, unspecified; F17.210 Nicotine dependence, cigarettes, uncomplicated; G89.29 Other chronic pain; J44.9 Chronic obstructive pulmonary disease, unspecified; Z79.899 Other long term (current) drug therapy; Z82.49 Family history of ischemic heart disease and other diseases of the circulatory system; Z83.3 Family history of diabetes mellitus; Z98.61 Coronary angioplasty status; Z99.2 Dependence on renal dialysis; Z90.49 Acquired absence of other specified parts of digestive tract; E66.9 Obesity, unspecified; Z68.30 Body mass index [BMI] 30.0-30.9, adult
CPT/HCPCS: 36415; 71045; 72100; 72170; 76775; 80048; 80053; 80061; 80307; 81001; 82306; 82607; 83605; 83735; 83880; 84100; 84132; 84443; 84484; 85025; 85610; 85652; 85730; 86141; 87081; 87086; 87340; 90935; 93005; 94640; 96374; 99291; G0378; J1815; J2405